=== PATIENT | male | born 1935 | race Caucasian/White ===

== ENCOUNTER 2017-07-12 09:19 | Day surgery (SDC) | payer MEDICARE, OTHER, SELFPAY ==
--- NOTE | 2017-07-06 11:11 | EKG12_ITS ---
Test Reason : PRE OP Blood Pressure : / mmHG Vent. Rate : 072 BPM Atrial Rate : 072 BPM P-R Int : 246 ms QRS Dur : 104 ms QT Int : 410 ms P-R-T Axes : 064 -41 052 degrees QTc Int : 448 ms Sinus rhythm with 1st degree A-V block Left axis deviation /LAHB Abnormal ECG Confirmed by FERNANDO SUN ([id number]), non linear editor MARLINE BAEZA ([id number]) on 07/07/2017 1:17:26 PM Referred By: Ronen Smiley Confirmed By:FERNANDO SUN
[2017-07-06 12:27] LABS: Anion Gap 7 (5-15); BUN 25 mg/dL (7-18); BUN/Creat Ratio 21.4 RATIO (10-20); Calcium,Total 8.8 mg/dL (8.5-10.1); Chloride 105 mmol/L (98-107); Creatinine, Serum 1.17 mg/dL (0.70-1.30); EST Glomerular Filtration Rate 64 mL/min (>60); Est Glom Filt Rate - Afr Amer 77 mL/min (>60); Glucose 137 mg/dL (74-106); Sodium Level 140 mmol/L (136-145)
[2017-07-12 09:47] VITALS: BP 155/84; PULSE 73; RESP 16; TEMP 36.4; O2SAT 95; BMI 26.1
--- NOTE | 2017-07-12 11:53 | PCM.OPRPT ---
Problem List (1) Eustachian tube dysfunction Status: Chronic Qualifiers: Laterality: bilateral Qualified Code(s): H69.83 - Other specified disorders of Eustachian tube, bilateral Report of Operation Date of Procedure: 07/12/17 Pre-Operative Diagnosis: 1. chronic serous otitis. 2. eustachian tube dysfunction, right and left Post-Operative Diagnosis: 1. chronic serous otitis. 2. eustachian tube dysfunction, right and left Surgery/Procedure Performed:: 1. placement of pressure equalization tubes, right and left ear. 2. eustachian tube dilation, right and left Type of Anesthesia:: General Specimen's removed: none Drains: none Description of Procedure: on the day of the procedure, after appropriate informed consent was obtained, the patient was brought to the operating room and placed in supine position on the operating room table. she was placed under general endotracheal anesthesia by the anesthesiologist, the tube was secured the eyes were taped. the left ear was examined with the binocular operating microscope. a speculum was placed. the tympanic membrane was viewed in its entirety and found to be intact. a radial myringotomy was made in the anterior/inferior quadrant and a bartlett tympanostomy tube was placed. floxin otic drops were instilled. the right ear was examined with the binocular operating microscope. a speculum was placed. the tympanic membrane was viewed in its entirety and found to be intact. a radial myringotomy was made in the anterior/inferior quadrant and a bartlett tympanostomy tube was placed. floxin otic drops were instilled. the bilateral nasal cavities were decongested with oxymetazoline soaked pledgets. a 30 degree scope was inserted into the right nasal cavity. this was placed in the nasopharynx and the left eustachian tube orifice was visualized. the acclarent AERA system was gently inserted into the left eustachian tube until a soft stop was felt. the balloon was then inflated to 12atm for 2 minutes and retracted. care was taken not to create a false passage. a 30 degree scope was inserted into the left nasal cavity. this was placed in the nasopharynx and the right eustachian tube orifice was visualized. the acclarent AERA system was gently inserted into the right eustachian tube until a soft stop was felt. the balloon was then inflated to 12atm for 2 minutes and retracted. care was taken not to create a false passage. the patient was awoken from general anesthesia and transferred to the PACU in stable condition. Grafts/Implants Used: none
--- NOTE | 2017-07-12 11:56 | PCM.DC ---
- Discharge Diagnoses Current Active Problems: Current Active and Chronic Problems Eustachian tube dysfunction (Chronic) You will use the following diet at home:: No restrictions Discharge Activity: Return to Normal Activity Call your doctor if your incision/area has: Increased Pain/ Swelling Allergies/Adverse Reactions: Allergies ibuprofen [From Motrin] Allergy (Verified 07/05/17 13:06) Swelling Medications to take at Discharge Tamsulosin HCl [Flomax] 0.4 mg PO DAILY 12/29/15 Budesonide/Formoterol 160/4.5 [Symbicort 160/4.5 Mcg Inhaler (SP)] 2 puff INHALATION BID 06/02/16 Fluticasone 0.05% [Flonase Nasal [place]] 2 spray NASAL BID 07/05/17 Primary Care Physician: Santana Butt MD [Primary Care Provider] - Please Follow Up With: Ronen Smiley MD When: 3 weeks
[2017-07-12] MEDS: Oxymetazoline 0.05% 1 SPRAY SPRAY.BTL 15 SPRAY (12:30)
[2017-07-12] MEDS: Ciprofloxacin 0.3% 2.5ml Bottle 1 DRP (12:39)
[2017-07-12 12:57] VITALS: BP 155/84; BP 155/86; PULSE 64; RESP 16; TEMP 36.4; O2SAT 95
[2017-07-12 13:00] VITALS: BP 155/84; BP 163/95; PULSE 65; RESP 16; O2SAT 96
[2017-07-12 13:15] VITALS: BP 152/87; BP 155/84; PULSE 61; RESP 16; O2SAT 95
[2017-07-12 13:34] VITALS: BP 153/90; BP 155/84; PULSE 59; RESP 16; TEMP 36.5; O2SAT 93
[2017-07-12 14:10] VITALS: BP 155/84
== END 2017-07-12 14:17 | disposition home or self-care (01) ==
LOC: SDC 09:20 → AC 09:21
PROVIDERS: Family Provider Family Medicine; PCP Family Medicine; Visit Provider Otolaryngology
PROC: (CPT 69436; principal; 2017-07-12 12:55)
PROC: (CPT 69436; 2017-07-12 12:55)
DX: H69.83 Other specified disorders of Eustachian tube, bilateral (principal); H90.3 Sensorineural hearing loss, bilateral; J30.81 Allergic rhinitis due to animal (cat) (dog) hair and dander; H65.23 Chronic serous otitis media, bilateral; K21.9 Gastro-esophageal reflux disease without esophagitis; G47.30 Sleep apnea, unspecified; F17.210 Nicotine dependence, cigarettes, uncomplicated; Z79.899 Other long term (current) drug therapy; Z85.828 Personal history of other malignant neoplasm of skin
CPT/HCPCS: 00126; 69436; 36415; 80048; J7120; J2405

== ENCOUNTER → 2018-01-20 10:23 | Outpatient (CLI) | payer MEDICARE, OTHER, SELFPAY ==
[2018-01-20 12:41] LABS: Anion Gap 7 (5-15); BUN 23 mg/dL (7-18); BUN/Creat Ratio 14.9 RATIO (10-20); Calcium,Total 8.7 mg/dL (8.5-10.1); Chloride 106 mmol/L (98-107); Creatinine, Serum 1.54 mg/dL (0.70-1.30); EST Glomerular Filtration Rate 46 mL/min (>60); Est Glom Filt Rate - Afr Amer 56 mL/min (>60); Glucose 107 mg/dL (74-106); Magnesium 2.7 mg/dL (1.6-2.6); Potassium 4.1 mmol/L (3.5-5.1); Sodium Level 141 mmol/L (136-145); Thyroid Stim Hormone (TSH) 1.39 uIU/mL (0.358-3.74)
[2018-01-20 12:42] LABS: Hemoglobin A1c 5.4 % (4.2-6.3)
== END ==
PROVIDERS: Family Provider Family Medicine; PCP Family Medicine; Visit Provider Family Medicine
DX: R25.2 Cramp and spasm (principal); M79.1 Myalgia
CPT/HCPCS: 36415; 80048; 83036; 83735; 84443

== ENCOUNTER → 2019-02-13 08:45 | Outpatient (CLI) | payer MEDICARE, SELFPAY ==
[2019-02-13 12:40] LABS: Absolute Lymphocyte Count 1.21 X10^3/uL (0.83-4.51); Absolute Neutrophil Count 2.2 X10^3/uL (2.0-7.7); Basophil# 0.04 X10^3/uL; Eosinophil# 0.17 X10^3/uL; Eosinophils% 4.2 % (0-5); Hematocrit 45.1 % (40-54); Hemoglobin 14.4 g/dL (13.0-16.5); Lymphocyte # 1.21 X10^3/ul (4.0); Lymphocyte % 29.9 % (19-41); Mean Corp Hgb Conc 31.9 g/dL (32-36); Mean Corpuscular Hgb 31.7 pg (27.0-32.0); Mean Corpuscular Volume 99.3 fL (80-94); Monocyte% 9.9 % (0-10); NRBC Flagged by Analyzer 0 % (0-5); Neutrophil # 2.21 X10^3/uL (2.7-7.7); Neutrophil % 54.5 % (47-70); Platelet Count 200 K/mm3 (150-450); RBC Distribution Width CV 16.5 % (11.6-14.6); RBC Distribution Width SD 60.7 fl (35.1-43.9); Red Blood Count 4.54 M/mm3 (4.6-6.2); White Blood Count 4.1 K/mm3 (4.4-11.0)
[2019-02-13 12:56] LABS: ALB/GLOB Ratio 1.2 RATIO (0.9-2.4); AST(SGOT) 19 U/L (15-37); Alanine Aminotransfer ALT/SGPT 18 U/L (16-61); Alkaline Phosphatase 89 U/L (45-117); Anion Gap 8 (5-15); BUN 18 mg/dL (7-18); BUN/Creat Ratio 13.6 RATIO (10-20); Calcium,Total 8.9 mg/dL (8.5-10.1); Chloride 106 mmol/L (98-107); Creatinine, Serum 1.32 mg/dL (0.70-1.30); EST Glomerular Filtration Rate 55 mL/min (>60); Est Glom Filt Rate - Afr Amer 67 mL/min (>60); Globulin 3.4 g/dL (2.2-4.2); Glucose 102 mg/dL (74-106); Potassium 4.4 mmol/L (3.5-5.1); Protein, Total 7.4 g/dL (6.4-8.2); Sodium Level 142 mmol/L (136-145)
== END ==
PROVIDERS: Family Provider Family Medicine; PCP Family Medicine; Visit Provider Family Medicine
DX: N18.3 Chronic kidney disease, stage 3 (moderate) (principal); K21.9 Gastro-esophageal reflux disease without esophagitis
CPT/HCPCS: 36415; 80053; 85025

== ENCOUNTER → 2019-12-13 14:37 | Outpatient (CLI) | payer MEDICARE, SELFPAY ==
[2019-12-13 18:06] LABS: Absolute Lymphocyte Count 0.95 X10^3/uL (0.83-4.51); Absolute Neutrophil Count 3.1 X10^3/uL (2.0-7.7); Basophil# 0.04 X10^3/uL; Basophil% 0.9 % (0-1); Eosinophil# 0.05 X10^3/uL; Eosinophils% 1.1 % (0-5); Hematocrit 40.5 % (40-54); Lymphocyte # 0.95 X10^3/ul (4.0); Lymphocyte % 20.8 % (19-41); Mean Corp Hgb Conc 32.1 g/dL (32-36); Mean Corpuscular Hgb 33.1 pg (27.0-32.0); Mean Corpuscular Volume 103.1 fL (80-94); Mean Platelet Vol. 11.4 fl (6.2-12.0); Monocyte% 8.8 % (0-10); NRBC Flagged by Analyzer 0 % (0-5); Platelet Count 192 K/mm3 (150-450); RBC Distribution Width CV 15.2 % (11.6-14.6); RBC Distribution Width SD 57.8 fl (35.1-43.9); Red Blood Count 3.93 M/mm3 (4.6-6.2); White Blood Count 4.6 K/mm3 (4.4-11.0)
[2019-12-13 18:10] LABS: AST(SGOT) 24 U/L (15-37); Alanine Aminotransfer ALT/SGPT 25 U/L (16-61); Albumin, Serum 3.8 g/dL (3.2-5.0); Alkaline Phosphatase 75 U/L (45-117); Anion Gap 5 (5-15); BUN 35 mg/dL (7-18); Chloride 110 mmol/L (98-107); Creatinine, Serum 1.67 mg/dL (0.70-1.30); EST Glomerular Filtration Rate 42 mL/min (>60); Est Glom Filt Rate - Afr Amer 51 mL/min (>60); Globulin 3.7 g/dL (2.2-4.2); Glucose 90 mg/dL (74-106); Potassium 4.1 mmol/L (3.5-5.1); Protein, Total 7.5 g/dL (6.4-8.2); Sodium Level 140 mmol/L (136-145)
== END ==
PROVIDERS: PCP Family Medicine; Visit Provider Family Medicine
DX: N18.3 Chronic kidney disease, stage 3 (moderate) (principal); K21.9 Gastro-esophageal reflux disease without esophagitis; N40.0 Benign prostatic hyperplasia without lower urinary tract symptoms
CPT/HCPCS: 36415; 80053; 85025

== ENCOUNTER 2020-04-26 06:58 | Emergency (ER) | payer MEDICARE, SELFPAY ==
[2020-04-26 07:01] VITALS: BP 164/92; PULSE 80; RESP 16; TEMP 37; O2SAT 98; BMI 24.6
--- NOTE | 2020-04-26 07:15 | VDLE_ITS ---
Reason For Study: PAIN Procedure LEFT Exam performed portable in ED. GSV is normal. A preliminary report was called and/or faxed CFV is compressible, spontaneous, phasic, to ED. competent, and demonstrates normal augmentation. FV is compressible, spontaneous, phasic, competent and demonstrates normal augmentation. POP V is compressible, spontaneous, phasic, competent and demonstrates normal augmentation. T/P Trunk is compressible. PTV is compressible. LT PerV is compressible. Interpretation Summary Deep veins of the left lower extremity are patent and compressible segmentally. There is no evidence of left lower extremity deep vein thrombosis. Valvular competence appears intact within the proximal deep venous system on the left . The left great saphenous vein appears patent and compressible segmentally. Ordering Physician: Steven Hilliard Referring Physician: KATIE KOROMA Performed By: Eli Mahoney, KRISHNA, RVT
--- NOTE | 2020-04-26 07:15 | ED.VIS.GEN ---
History of Present Illness Chief Complaint: Lower Extremity Injury Informant: Patient Narrative: 84-year-old male presents to the emergency department concern for blood clot in his left leg. He tells me that 3 months ago he had pain the anterior medial aspect of his left leg was diagnosed with a blood clot. He was not placed on any blood thinners. He does not know if it was a deep vein or if it was a superficial vein. He states that he has been seeing Dr. Hinojosa. He states that this morning around 06 100 he was awoken with pain in the left leg. He states that the vein appears swollen. He denies any trauma. - Past Medical History (1) Chronic venous insufficiency Status: Chronic (2) Emphysema of lung Status: Chronic (3) History of superficial thrombophlebitis Status: Chronic Past Medical History - Allergies and Home Meds Allergies/Adverse Reactions: Allergies ibuprofen [From Motrin] Allergy (Verified 04/26/20 06:59) Swelling Primary Care Physician: Shoshana Ulrich MD [Primary Care Provider] - As Needed Past Medical History: - - Hypertension Surgical History: - - The patient underwent lithotripsy for a right kidney stone in September 2015. Left hand surgery was performed approximately 10 years ago. The patient underwent L4-5 discectomy approximately 20 years ago. Smoking Status: Current every day smoker Drugs: None - Family History Maternal Family History: Reports: - - The patient's father at age of 93 with a history of Alzheimer's disease. The patient's mother at age of 61 with stomach cancer. Review of Systems General: Denies: Chills, Fever, Sweats Eyes: Denies: Visual changes - bilaterally, Diplopia ENT: Denies: Rhinorrhea, Sore throat Cardiovascular: Denies: Chest pain, Palpitations Respiratory: Denies: Dyspnea, Cough, Dyspnea on exertion Gastrointestinal: Denies: Abdominal pain, Nausea, Vomiting, Diarrhea, Melena, Hematochezia Genitourinary: Denies: Dysuria, Hematuria, Frequency Musculoskeletal: Reports: Extremity Pain. Denies: Back pain Skin: Denies: Rash, Wounds Neurological: Denies: Headache, Weakness, Numbness Physical Exam Vital Signs/Narrative: Vital Signs Temp Pulse Resp BP Pulse Ox 04/26/20 07:01 98.6 F 80 16 164/92 H 98 Inital Vital Signs reviewed: Yes General: Well nourished, Well developed, No Acute Distress Head: Normocephalic, Atraumatic Eyes: Perrl, EOMI ENT: Moist mucous membranes, No rhinorrhea Neck: Supple, Nontender Cardiovascular: Regular rate, Regular rhythm, No murmurs Respiratory: No distress, CTA bilaterally, Chest nontender Abdomen: Soft, Nontender, Nondistended, Normal bowel sounds Back: Nontender, Normal Inspection Extremities: No edema, Tenderness - Tender to palpation of the medial anterior left leg. There are varicose veins. I do not palpate any cords. No significant swelling noted between the 2 legs., - - There is a varicose vein over the medial anterior aspect of the left leg where the patient has pain. No cords felt. Skin: Normal color, No rash Neurological: Alert, Oriented x3, Cranial nerves II-XII grossly intact, Normal Strength, Normal Sensation Psychological: Normal affect, Normal Mood Diagnostic/Tx/Re-eval - Medical Decision Making Duplex ultrasound of the left leg was negative for DVT. Patient will be discharged home with supportive care return if worsening or concerns ED Disposition - Plan for ED Patient: Disposition: Home or Assisted Living Diagnosis: Pain of left calf, Varicose vein of leg Instructions: ED Varicose Veins Referrals: Shoshana Ulrich MD [Primary Care Provider] - As Needed
[2020-04-26 09:27] VITALS: BP 151/76; PULSE 81; RESP 14; O2SAT 99
== END 2020-04-26 09:45 | disposition home or self-care (01) ==
LOC: ED 08:02
PROVIDERS: Emergency Provider Emergency Medicine; PCP Family Medicine
DX: I83.812 Varicose veins of left lower extremity with pain (principal); I87.2 Venous insufficiency (chronic) (peripheral); J43.9 Emphysema, unspecified; I10 Essential (primary) hypertension; F17.200 Nicotine dependence, unspecified, uncomplicated; Z79.899 Other long term (current) drug therapy; Z86.72 Personal history of thrombophlebitis
CPT/HCPCS: 93971; 99282

== ENCOUNTER → 2020-05-19 10:34 | Outpatient (CLI) | payer MEDICARE, SELFPAY ==
[2020-04-26 07:01] VITALS: BMI 24.6
--- NOTE | 2020-05-19 10:38 | RAD_ITS ---
STUDY: X-RAY - UNILATERAL RIBS ( LEFT ) WITH CHEST REASON FOR EXAM: Male, 84 years old. pt fell several months ago, left lower rib pain TECHNIQUE - RIBS: 4 view(s) of the ribs. TECHNIQUE - CHEST: Single PA view of the chest. COMPARISON: None. FINDINGS - RIBS: Normal visualized ribs without a demonstrated fracture. FINDINGS - CHEST: The lungs are clear and expanded. There is no demonstrated pleural abnormality. Normal size heart. Normal mediastinum and ermias. Normal visualized pulmonary arteries. Normal visualized aortic arch and descending thoracic aorta. There is a dextroscoliosis of the thoracic spine. Multiple healed right rib fractures. There is no demonstrated abnormality of the visualized soft tissue structures of the upper abdomen. RAD/Ribs Uni Min 3V w/PA Chest IMPRESSION: RIBS: Normal x-ray examination of the ribs. CHEST: Normal x-ray examination of the chest. Electronically Signed: Kvng Barrera MD at 8:20 EST Tel , Service support ,
--- NOTE | 2020-05-19 10:39 | RAD_ITS ---
STUDY: X-RAY - PELVIS AND BILATERAL HIPS REASON FOR EXAM: Bilateral hip pain, fall several months ago. TECHNIQUE: AP view of the pelvis.? 2 views of the right hip, and 2 views of the left hip were obtained. COMPARISON: None. FINDINGS: There is vascular calcification. 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 Normal bilateral iliac wings, sacroiliac joints and visualized sacrum. Normal bilateral superior and inferior pubic rami. Normal pubic symphysis. Normal bilateral ischial tuberosities. Normal visualized right femoral head. Normal right acetabulum. There is mild joint space narrowing of the superior medial right hip joint. Normal visualized left femoral head. Normal left acetabulum. There is mild joint space narrowing of the superior medial left hip joint. RAD/Hips B/L min 2 views w/ Pelvis IMPRESSION: Mild bilateral hip arthrosis. Electronically Signed: Rodney Ordoñez MD at 13:16 EST Tel , Service support ,
== END ==
PROVIDERS: PCP Family Medicine; Referring Provider Family Medicine; Visit Provider Family Medicine
DX: M25.551 Pain in right hip (principal); M25.552 Pain in left hip; R07.81 Pleurodynia; M89.8X8 Other specified disorders of bone, other site
CPT/HCPCS: 71100; 71101; 73521

== ENCOUNTER 2020-06-12 12:46 | Outpatient (RCR) | payer MEDICARE, SELFPAY | END 2020-06-12 23:59 | LOC: IMMUN 12:46 | PROVIDERS: PCP Family Medicine; Visit Provider Family Medicine | DX: Z23 Encounter for immunization (principal) | CPT/HCPCS: 0011A; 0012A; 91301 ==

== ENCOUNTER 2020-07-07 10:30 | Outpatient (RCR) | payer MEDICARE, SELFPAY ==
--- NOTE | 2020-06-09 15:19 | HP.PTEVAL_ITS ---
Patient's Visit Information DESMOND WINCHESTER is a 85 year old M referred to Physical Therapy by Dr. Shoshana Ulrich MD with a diagnosis of STRAIN OF MUSCLES, TENDON, FASCIA; TENDON AT THIGH LEVEL, RIGHT. Date of Evaluation: 06/09/20 Physical Therapist: Pola Bustamante, PT, Cert MDT, OCS - Visit Plan Frequency: 2x /Week Duration: 4 Weeks Plan: 2xs/week for 4 weeks per POC. PT Interventions: lumbar AROM, LE strength, postural training, core stabilization exercises, flexibility/mobility, gait, stairs. - Subjective PATIENT IS AN 85 YEAR OLD MALE PRESENTING TO THE CLINIC WITH RIGHT POSTERIOR GLUT AND HAMSTRING SYMPTOMS FROM FALLING DOWN THE STAIRS. ANDREW: THREE MONTHS AGO MISSED A STEP AN FELL ON HIS BUTTOCKS. STATES HE GETS RIGHT POSTERIOR PELVIS PAIN. RADICULAR SYMPTOMS INTO POSTERIOR THIGH; OCCASSIONALY INTO CALF. SITTING FOR LONG DURATIONS INCREASES PAIN. WALKING UP AND DOWN STAIRS CAUSES PAIN. LAYING DOWN RELIEVES PAIN. DENIES N/T INTO LE. HX OF BACK SURGERIES AND R ANKLE INJURY. 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 DENIES ANY RECENT FALLS OTHER THAN INJURY. DIFFICULTY WITH TRANSFERS IN AND OUT OF CAR. DENIES DIFFICULTY WITH SLEEPING. ASCENDING STAIRS WITH STEP TO PATTERN. SOCIAL: . VOCATION: RETIRED - Pain Right Buttocks Pain Intensity (Out of 10): 4 Pain Intensity Range: 10 Comment: R HAMSTRING AND BUTTOCK - Objective LUMBAR ROM: FLEXION 50%, EXT 50%, SIDEBEND 50%, ROTATION 25%. LE MMT: R FLEXION 4-/5, QUAD 4-/5, HAMS 4-/5, DF 5/5, IR 4+/5, ER 4+/5. L FLEXION 4+/5, QUAD 4/5, HAMS 4/5, DF 5/5, IR 4+/5, ER 4+/5. SENSATION INTACT TO LIGHT TOUGH B LE. R HAMSTRING: MODERATE LIMITATION. PALPATION: TTP BILATERAL LOW BACK AND PARASPINALS, TTP R ISCHIAL TUBEROSITY. GAIT: DECREASED EUFEMIA, DECREASED STEP LENGTH - Special Tests R Hip Scour: Negative - Goals Goal 1:: PATIENT WILL DEMONSTRATE INDEPENDENCE WITH HEP. Goal Time Frame: 2-4 Weeks Goal 2:: PATIENT WILL DEMONSTRATE IMPROVE LUMBAR AROM TO < 50% LIMITATIONS FOR IMPROVED FUNCTIONAL MOBILITY. Goal Time Frame: 2-4 Weeks Goal 3:: PATIENT WILL IMPROVE SCORE ON LEFS BY 5 OR > POINTS FOR IMPROVED QOL. Goal 4:: PATIENT WILL DEMONSTRATE RECIPROCAL PATTERN WITH ASCENDING/DESCENDING STAIRS FOR IMPROVED FUNCTIONAL MOBILITY. Goal Time Frame: 2-4 Weeks Goal 5:: PATIENT WILL DEMONSTRATE B LE STRENGTH TO 4+/5 FOR IMPROVED FUNCTIONAL STRENGTH. Goal Time Frame: 2-4 Weeks - Rehabilitation Potential Physical Therapy Diagnosis: PATIENT IS A 85 YEAR OLD MALE PRESENTING TO THE CLINIC WITH LBP WITH RADICULAR SYMPTOMS INTO R LE, LIMITED LUMBAR AROM, DECREASED STRENGTH IN B LE. HX OF LUMBAR DISC SURGERY VASCULAR ISSUES RIGHT LEG . Rehabilitation Potential: Good - Anticipated Interventions Patient/Client Instruction: Educate patient on: Condition, Plan of Care For the Purpose of:: To decrease pain, To increase ROM, To improve muscle performance and motor function, To improve ability to perform ADL's, To increase tolerance to activity/condition/position, To improve ability of physical actions for home/community/work/leisure, To improve gait and locomotor functions, To increase flexibility/ROM, To improve safety, To improve tolerance to ADL's Therapeutic Exercise to Include: Strength training, Body mechanics, Postural training, Flexibilty training, Gait and locomotor training, Active ROM Comment: BLE For the Purpose of:: To decrease pain, To increase ROM, To improve muscle performance and motor function, To increase tolerance to activity/c ondition/position, To improve performance and independence with ADL's, To improve ability of physical actions for home/community/work/leisure, To improve gait and locomotor functions, To increase flexibility/ROM, To improve safety with gait, To improve safety, To improve tolerance to ADL's IF ES: Yes Cryotherapy (ice pack, ice massage): Yes Thermo therapy (hot pack): Yes Ultrasound (thermal/non thermal): Yes Comment: non-chargable for us/stim For the Purpose of:: To decrease pain, To increase ROM, To improve muscle performance and motor function, To improve ability to perform ADL's, To increase tolerance to activity/condition/position, To improve ability of physical actions for home/community/work/leisure, To increase flexibility/ROM, To improve tolerance to ADL's Thank you for the opportunity to evaluate your patient. For Medicare and Medicare HMO plans, please review the plan of care and approve it. It will need to be FAXED BACK to us at [phone] for Medicare purposes. For Medicare only, by signing this I certify the plan of care. Please let me know if there are questions or concerns regarding this plan of care. Physician Signature: Date:
--- NOTE | 2020-07-07 11:10 | HP.PTDCSUM ---
It has been my pleasure to treat DESMOND WINCHESTER referred by Dr. Shoshana Ulrich MD, with the diagnosis of STRAIN OF MUSCLES, TENDON, FASCIA; TENDON AT THIGH LEVEL, RIGHT for a total of 9 visit(s). Discharge Date: 07/07/20 Please see the following information for a summary of their discharge status. Subjective: Patient states that his back is sore this date. Reports he wants to get an MRI on his back. Patient expresses concerns because this pain has been going on for a few months after a fall. Right Buttocks Pain Intensity (Out of 10): 4 % Improvement: 60 Objective/Function: Lumbar AROM: Flexion 50% (limitied by hamstring tightness), ext 50%, sidebending 75%, Rotation 75%. LE MMT: R hip flexor 4+/5, quad 4+/5, hams 4+/5, DF 5/5. L hip flexion 4+/5, quad 4+/5, hams 4+/5, DF 5/5. Patient tolerated all exercise this date with no increase in pain. Demonstrates improvements in LE strength and lumbar mobility. Goal 1:: PATIENT WILL DEMONSTRATE INDEPENDENCE WITH HEP. Goal Progress: Goal Met Goal 2:: PATIENT WILL DEMONSTRATE IMPROVE LUMBAR AROM TO < 50% LIMITATIONS FOR IMPROVED FUNCTIONAL MOBILITY. Goal Progress: Progressing Goal 3:: PATIENT WILL IMPROVE SCORE ON LEFS BY 5 OR > POINTS FOR IMPROVED QOL. Goal Progress: Goal Met Goal 4:: PATIENT WILL DEMONSTRATE RECIPROCAL PATTERN WITH ASCENDING/DESCENDING STAIRS FOR IMPROVED FUNCTIONAL MOBILITY. Goal Progress: Progressing Goal 5:: PATIENT WILL DEMONSTRATE B LE STRENGTH TO 4+/5 FOR IMPROVED FUNCTIONAL STRENGTH. Goal Progress: Goal Met Plan: D/C to HEP Discharge Comments: D/C to HEP. Patient demonstrates If there are questions or concerns regarding this patient's physical therapy, please feel free to call me at [phone]. Thank you for the referral of this patient. Sincerely, Pola Bustamante, PT, Cert MDT, OCS
== END 2020-07-07 19:00 | disposition home or self-care (01) ==
LOC: PT 10:30
PROVIDERS: PCP Family Medicine; Referring Provider Family Medicine; Visit Provider Family Medicine
DX: S76.911D Strain of unspecified muscles, fascia and tendons at thigh level, right thigh, subsequent encounter (principal)
CPT/HCPCS: 97110; 97162

== ENCOUNTER 2020-07-08 09:53 | Outpatient (RCR) | payer MEDICARE, SELFPAY ==
[2020-07-08 10:11] VITALS: BP 135/74; PULSE 86; RESP 16; TEMP 36; BMI 24.3
[2020-07-08 11:49] LABS: Absolute Lymphocyte Count 1.06 X10^3/uL (0.83-4.51); Absolute Neutrophil Count 3.3 X10^3/uL (2.0-7.7); Basophil# 0.03 X10^3/uL; Basophil% 0.6 % (0-1); Eosinophil# 0.14 X10^3/uL; Eosinophils% 2.8 % (0-5); Hematocrit 41.4 % (40-54); Lymphocyte # 1.06 X10^3/ul (4.0); Lymphocyte % 21.2 % (19-41); Mean Corp Hgb Conc 31.4 g/dL (32-36); Mean Corpuscular Hgb 31.2 pg (27.0-32.0); Mean Corpuscular Volume 99.3 fL (80-94); Mean Platelet Vol. 10.1 fl (6.2-12.0); Monocyte# 0.42 X10^3/uL; Monocyte% 8.4 % (0-10); NRBC Flagged by Analyzer 0 % (0-5); Neutrophil # 3.33 X10^3/uL (2.7-7.7); Neutrophil % 66.8 % (47-70); Platelet Count 259 K/mm3 (150-450); RBC Distribution Width CV 14.1 % (11.6-14.6); RBC Distribution Width SD 51.8 fl (35.1-43.9); Red Blood Count 4.17 M/mm3 (4.6-6.2)
[2020-07-08 12:18] LABS: AST(SGOT) 20 U/L (15-37); Alanine Aminotransfer ALT/SGPT 21 U/L (16-61); Albumin, Serum 3.6 g/dL (3.2-5.0); Alkaline Phosphatase 94 U/L (45-117); Anion Gap 4 (5-15); BUN 18 mg/dL (7-18); BUN/Creat Ratio 13.5 RATIO (10-20); Calcium,Total 9.2 mg/dL (8.5-10.1); Chloride 108 mmol/L (98-107); Creatinine, Serum 1.33 mg/dL (0.70-1.30); EST Glomerular Filtration Rate 55 mL/min (>60); Est Glom Filt Rate - Afr Amer 66 mL/min (>60); Estimated Creatinine Clearance 40.71 ml/min; Globulin 3.6 g/dL (2.2-4.2); Glucose 67 mg/dL (74-106); Potassium 4.1 mmol/L (3.5-5.1); Prealbumin 25.7 mg/dL (20.0-40.0); Protein, Total 7.2 g/dL (6.4-8.2); Sodium Level 141 mmol/L (136-145)
--- NOTE | 2020-07-08 14:21 | HP.PCM_ITS ---
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, left Status: Chronic Code(s): I87.012 - 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 (3) Swelling of lower limb Status: Chronic Code(s): M79.89 - Other specified soft tissue disorders (4) Tobacco abuse Status: Chronic Code(s): Z72.0 - Tobacco use (5) Emphysema of lung Status: Chronic Code(s): J43.9 - Emphysema, unspecified (6) Ulcer of ankle Status: Chronic Qualifiers: Laterality: left Non-pressure ulcer stage: with fat layer exposed Qualif ied Code(s): L97.322 - Non-pressure chronic ulcer of left ankle with fat layer exposed (7) 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 Code(s): I83.209 - Varicose veins of unspecified lower extremity with both ulcer of unspecified site and inflammation; L97.909 - Non- pressure chronic ulcer of unspecified part of unspecified lower leg with unspecified severity (8) Venous hypertension, chronic, with ulcer and inflammation Status: Chronic Qualifiers: Laterality: left Qualified Code(s): I87.332 - Chronic venous hypertension (idiopathic) with ulcer and inflammation of left lower extremity; L97.929 - Non- pressure chronic ulcer of unspecified part of left lower leg with unspecified severity Code(s): I87.339 - Chronic venous hypertension (idiopathic) with ulcer and inflammation of unspecified lower extremity (9) History of kidney stones Status: Chronic Code(s): Z87.442 - Personal history of urinary calculi (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 He was previously treated at the [facility] in 2016 relative to a venous ulceration near the left medial malleolus. He was treated by conservative means, and his ulcer was ultimately healed. The patient has presented again recently with a new ulceration near the left medial malleolus, though it is slightly more distal location. The ulceration has been present for approximately 6 weeks. A venous duplex examination performed on March 20, 2020, revealed incompetence of the left great saphenous vein, a duplicate left great saphenous vein, and the left small saphenous vein. Patient has been implementing conservative treatment measures for many years, including leg elevation, avoidance of idle standing and sitting, use of graduated compression stockings of at least 20 to 30 mmHg compression, active lifestyle, weight control measures, and the use of [id number]-wtt-[id number] anti-inflammatory medications as needed. Despite these measures, the ulceration near the left medial malleolus recurred, and the patient has been urged to redouble his efforts at implementing conservative treatment measures. The patient has had several ulcerations in this area. He also has a history of superficial thrombophlebitis in the left lower extremity in the past. He suffers from chronic swelling and edema in both lower extremities, which is most prominent at the end of the day. He sleeps on a flat surface at night. Past Medical History Past Medical History: Chronic Problems Eustachian tube dysfunction (Chronic) Hypertension (Chronic) History of superficial thrombophlebitis (Chronic) Postphlebitic syndrome with ulcer, left (Chronic) Swelling of lower limb (Chronic) Tobacco abuse (Chronic) Emphysema of lung (Chronic) Ulcer of ankle (Chronic) Varicose veins with ulcer and inflammation (Chronic) Venous hypertension, chronic, with ulcer and inflammation (Chronic) History of kidney stones (Chronic) Umaña phlebectatica (Chronic) Prostatism (Chronic) Chronic venous insufficiency (Chronic) Surgical History: - - The patient underwent lithotripsy for a right kidney stone in September 2015. Left hand surgery was performed approximately 10 years ago. The patient underwent L4-5 discectomy approximately 20 years ago. Allergies/Adverse Reactions: Allergies ibuprofen [From Motrin] Allergy (Verified 04/26/20 06:59) Swelling Home Medications: Ambulatory Orders Medication Instructions Recorded Budesonide/Formoterol 160/4.5 2 puff INHALATION BID 06/02/16 [Symbicort 160/4.5 Mcg Inhaler (SP)] Amlodipine Besylate 5 mg PO DAILY 04/26/20 - Family History Maternal - - The patient's father at age of 93 with a history of Alzheimer's disease. The patient's mother at age of 61 with stomach cancer. 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 He smokes approximately 10 cigarettes/day. He denies the use of alcohol. Lives: Spouse/ Significant Other Smoking Status: Current every day smoker Tobacco Use: Cigarettes - 10/day Alcohol: None Drugs: None Review of Systems Constitutional: Denies: Chills, Fever, Weight Change Eyes: Denies: Pain, Vision Change HEENT: Denies: Difficulty Hearing, Difficulty Swallowing, Sinus Congestion Cardiovascular: Denies: Chest Pain, Palpitations Respiratory: Denies: Cough, Shortness of Breath Gastrointestinal: Denies: Diarrhea, Nausea, Vomiting Genitourinary: Denies: Dysuria, Hematuria Endocrine: Denies: Heat/ Cold Intolerance, Polydipsia, Polyuria Hematologic/ Lymphatic: Denies: Easy Bruising, Easy Bleeding - Physical Exam Vital Signs Temp Pulse Resp BP 96.8 F L 86 16 135/74 H 07/08/20 10:11 07/08/20 10:11 07/08/20 10:11 07/08/20 10:11 General: Alert, Oriented x3, Cooperative, No apparent distress, Well developed, Well nourished HEENT: Atraumatic, PERRLA, EOMI, Normocephalic Oral: Moist Mucosa Neck: No JVD Lungs: Normal air movement Abdomen: Non-Distended Extremities: No clubbing, No cyanosis, No Calf Tenderness, - - Mild swelling and edema are noted in the patient's lower extremities bilaterally. Scattered varicosities are noted in the lower extremities bilaterally. Coronal sleep ectatic is noted at ankle level bilaterally. A small open ulceration is noted near the left medial malleolus. Addt'l Wound Findings: The dimensions of the ulceration near the left medial malleolus are documented elsewhere. There is no sign of infection or cellulitis. A small amount of bioburden is noted. Several centimeters superiorly, there is evidence of a previously healed venous ulceration. Wound Measurements and Assessment WC - Nurse 1 - General Ulcer Measurement Start: 07/08/20 10:11 Freq: Status: Active Protocol: Activity Type Activity Date Activity User E-Sign Co-Sign Detail Recorded Client Recorded Date Recorded By Document 07/08/20 10:11 MW [id number] 07/08/20 10:27 MW 07/08/20 10:11 Wound Center Nurse 1 [Ulcer Assessment] #2 left medial ankle -Combined with other wound No -Current Size (cm) - Length 0.2 -Current Size (cm) - Width 0.2 -Current Size (cm) - Depth 0.2 -Total Square Cm 0.04 -Photo Taken No -Epithelialization None Present -Tunneling No -Undermining/Tunneling No -Circular Undermining No -Exudate Amt Small -Exudate Type Serosanguineous -Wound Margin Flat & Intact -Granulation Amt None Present (0 %) -Granulation Quality N/A -Slough/Fibrin Yes -Necrosis Amt Large (67-100%) -Necrotic Tissue Type Adherent Slough -Structure Exposed N/A -Texture (Corine-wound Skin Appearance) Assessed, Localized Edema -Moisture (Corine-wound Skin Appearance No Abnormality, ) Assessed -Color (Corine-wound Skin Appearance) Assessed, Hemosiderin Staining -Temperature (Corine-wound Skin No Abnormality Appearance) (Pt Warm) -Tenderness on Palpation (Corine-wound Yes Skin Appearance) -Ulcer Cleansing Rinsed/ Irrigated with Saline -Foul Odor after Cleansing No -Anesthetic Used 4% Lidocaine Solution [Edema Assessment] -Lower Limb Edema Present Yes -Right Calf (cm) 35.2 -Right Ankle (cm) 22.0 -Left Calf (cm) 35.5 -Left Ankle (cm) 22.5 WC - Nurse 2 - General Ulcer CM Notes Start: 07/08/20 10:11 Freq: Status: Active Protocol: Activity Type Activity Date Activity User E-Sign Co-Sign Detail Recorded Client Recorded Date Recorded By Document 07/08/20 12:22 [email or web address] [id number] 07/08/20 12:23 PL 07/08/20 12:22 Wound Center Nurse 2 [Procedure/Treatment] #2 left medial ankle -Time 10:50 -Correct Patient Yes -Correct Side, Site, Position Yes -Correct Procedure Yes -Procedure Performed Yes -Type of Procedure Debridement -Clinical Debridement Subcutaneous -Tissue Removed Subcutaneous -Post Debridement (cm) - Length 0.2 -Post Debridement (cm) - Width 0.2 -Post Debridement (cm) - Depth 0.1 -Total Square (Post) (cm) 0.04 -Area of Debridement (cm) - Length 0.2 -Area of Debridement (cm) - Width 0.2 -Total Square (Area) (cm) 0.04 -Tunneling No -Undermining/Tunneling No -Circular Undermining No -Wound/Ulcer Outcome Not Healed -Ulcer Cleansing Rinsed/ Irrigated with Saline -Foul Odor after Cleansing No -Bioengineered Tissue No -Debridement - Subq, 1st 20sq cm Yes [See Physician Procedure note for Specifics] Pain Scale: 0-10 Numeric [Pain] -Is Patient Pain Free? Yes - Nurse 3 - General Ulcer D/C NN Start: 07/08/20 10:11 Freq: Status: Active Protocol: Activity Type Activity Date Activity User E-Sign Co-Sign Detail Recorded Client Recorded Date Recorded By Document 07/08/20 11:01 MW [id number] 07/08/20 11:02 MW 07/08/20 11:01 Wound Care Nurse 3 [Wound Dressing] #2 left medial ankle -Ulcer Cleansing Rinsed/ Irrigated with Saline -Foul Odor after Cleansing No -Negative Pressure Wound Therapy N/A -Primary Dressing Applied C Hydrogel ($) -Primary Dressing Covered/Secured Dry Gauze, with Secured with Tape [Compression Applied] Right -Lotion applied to leg before No compression wrap -Stockings Yes Left -Lotion applied to leg before No compression wrap -Stockings Yes [Post Procedure Tolerated] -Treatment Response Procedure Tolerated Well Pain Scale: 0-10 Numeric [Pain] -Is Patient Pain Free? Yes Teaching: Wound Center [Wound Center Education] (Items with an * have Printed Materials Available- Please identify what is given to patient under the Teaching materials given to patient and caregiver Section. Dressing Your Wound -Person Taught Patient -Teaching Method Discussion, Demonstration -Response to teaching Reinforcement needed - Visit Discharge [Visit Discharge Information] -Discharge Condition Stable -Ambulatory Status Ambulatory -Transportation Private Auto -Accompanied by self -Medication Reconcilliation completed No & provided to patient/care provider -Clinical Summary of Care Provided Yes Musculoskeletal: No Muscle Wasting Neurological: Cranial nerves II-XII grossly intact, Neuro grossly intact Psych/Mental Status: Normal Affect, Appropriate, Alert and oriented to time, place, person, mood and affect Debridement Note Post-Debridement Measurements/Treatment WC - Nurse 2 - General Ulcer CM Notes Start: 07/08/20 10:11 Freq: Status: Active Protocol: Activity Type Activity Date Activity User E-Sign Co-Sign Detail Recorded Client Recorded Date Recorded By Document 07/08/20 12:22 PL [id number] 07/08/20 12:23 PL 07/08/20 12:22 Wound Center Nurse 2 #2 left medial ankle -Time 10:50 -Correct Patient Yes -Correct Side, Site, Position Yes -Correct Procedure Yes -Procedure Performed Yes -Type of Procedure Debridement -Clinical Debridement Subcutaneous -Tissue Removed Subcutaneous -Post Debridement (cm) - Length 0.2 -Post Debridement (cm) - Width 0.2 -Post Debridement (cm) - Depth 0.1 -Total Square (Post) (cm) 0.04 -Area of Debridement (cm) - Length 0.2 -Area of Debridement (cm) - Width 0.2 -Total Square (Area) (cm) 0.04 -Tunneling No -Undermining/Tunneling No -Circular Undermining No -Wound/Ulcer Outcome Not Healed -Ulcer Cleansing Rinsed/ Irrigated with Saline -Foul Odor after Cleansing No -Bioengineered Tissue No -Debridement - Subq, 1st 20sq cm Yes Pain Scale: 0-10 Numeric Is Patient Pain Free? Yes WC - Nurse 3 - General Ulcer D/C NN Start: 07/08/20 10:11 Freq: Status: Active Protocol: Activity Type Activity Date Activity User E-Sign Co-Sign Detail Recorded Client Recorded Date Recorded By Document 07/08/20 11:01 MW [id number] 07/08/20 11:02 MW 07/08/20 11:01 Wound Care Nurse 3 #2 left medial ankle -Ulcer Cleansing Rinsed/ Irrigated with Saline -Foul Odor after Cleansing No -Negative Pressure Wound Therapy N/A -Primary Dressing Applied C Hydrogel ($) -Primary Dressing Covered/Secured with Dry Gauze, Secured with Tape Right -Lotion applied to leg before No compression wrap -Stockings Yes Left -Lotion applied to leg before No compression wrap -Stockings Yes Treatment Response Procedure Tolerated Well Pain Scale: 0-10 Numeric Is Patient Pain Free? Yes Teaching: Wound Center Dressing Your Wound -Person Taught Patient -Teaching Method Discussion, Demonstration -Response to teaching Reinforcement needed WC - Visit Discharge Discharge Condition Stable Ambulatory Status Ambulatory Transportation Private Auto Accompanied by self Medication Reconcilliation completed & No provided to patient/care provider Clinical Summary of Care Provided Yes Laterality: Left - Medial malleolus Type of Debridement: Excisional debridement Anesthesia Used: 5% Lidocaine Gel Depth: Down to and including healthy tissue, in the subcutaneous layer Percentage of wound debrided: 100 Instrument Used: 3mm curette Tissue Removed: Bioburden Severity: Fat Layer Exposed Amount of bleeding with debridement: Mild Bleeding Controlled with: Compression and gauze Patient tolerated procedure well Assessment/Plan Active Problems History of superficial thrombophlebitis (Chronic) Postphlebitic syndrome with ulcer, left (Chronic) Swelling of lower limb (Chronic) Tobacco abuse (Chronic) Emphysema of lung (Chronic) Ulcer of ankle (Chronic) 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 The patient is well-versed in the appropriate conservative treatment measures related to management of his venous disease. We have discussed these issues again in detail. Patient has been encouraged to elevate his lower extremities as much as possible. He is to continue sleeping on a flat mattress at night. Leg elevation is to be achieved even during daytime hours. Leg elevation is to be to heart level, or higher. Prolonged idle sitting has been discouraged. Activity has been encouraged. Weight optimization has been recommended. Compression is to be continued by means of graduated compression stockings of 20 to 30 mmHg, or higher. It appears as though the patient has such stockings, which are relatively new. Routine laboratory studies were obtained earlier today, with results as follows: White blood count 5.0, hemoglobin 13.0, hematocrit 41.4, platelets 259,000, sodium 141, potassium 4.1, chloride 108, BUN 18, creatinine 1.33, glucose 67, calcium 9.2, total bilirubin 0.50, AST 20, ALT 21, alkaline phosphatase 94, total protein 7.2, albumin 3.6, serum prealbumin 25.7. Plan: We are to continue with conservative treatment measures with respect to the patient's chronic venous disease. These measures have been discussed with the patient in detail, and are to include leg elevation, avoidance of idle standing and sitting, graduated compression stockings, weight control measures, active lifestyle, and the use of anti-inflammatory medications as needed. We are to implement the use of collagen hydrogel topically to the ulceration to the left medial malleolus. This is to be applied topically on a daily basis. Patient is to return in 1 week for reassessment. It is anticipated that healing of the small ulceration will be achieved. The patient will likely be a candidate for endovenous ablation in the left lower extremity. A prior venous duplex examination, performed on 03/20/2020 revealed incompetence of the left great saphenous vein, the duplicate left great saphenous vein, and the left small saphenous vein. Patient has indicated that he may wish to pursue such superficial venous ablation, which might be achieved by either endothermal ablation or by means of VenaSeal medical adhesive closure. These options will be discussed with the patient in more detail at ensuing visits. The patient is to return in 1 week for reassessment. Influenza vaccine was not administered today. The patient is a smoker, and has been encouraged to discontinue his smoking habit. Patient stands 5 feet 8 inches tall. He weighs 160 pounds. His BMI is 24.3, which is normal. Total time: 29 minutes.
== END 2020-07-13 23:59 ==
LOC: WC 09:53
PROVIDERS: PCP Family Medicine; Referring Provider Family Medicine; Visit Provider Surgery
DX: I87.332 Chronic venous hypertension (idiopathic) with ulcer and inflammation of left lower extremity (principal); L97.322 Non-pressure chronic ulcer of left ankle with fat layer exposed; I87.2 Venous insufficiency (chronic) (peripheral); M79.89 Other specified soft tissue disorders; J43.9 Emphysema, unspecified; I10 Essential (primary) hypertension; N40.0 Benign prostatic hyperplasia without lower urinary tract symptoms; F17.210 Nicotine dependence, cigarettes, uncomplicated; Z79.51 Long term (current) use of inhaled steroids; Z79.899 Other long term (current) drug therapy
CPT/HCPCS: 11042; 36415; 80053; 84134; 85025; 99213; G0463

== ENCOUNTER 2020-08-12 09:45 | Outpatient (RCR) | payer MEDICARE, SELFPAY ==
[2020-07-14 00:38] VITALS: BP 135/74; PULSE 86; RESP 16; TEMP 36
[2020-07-22 10:33] VITALS: BP 142/79; PULSE 70; TEMP 36.1; BMI 24.3
--- NOTE | 2020-07-22 10:53 | PCM.WC.HP ---
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, left Status: Chronic Code(s): I87.012 - 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 (5) Swelling of lower limb Status: Chronic Code(s): M79.89 - Other specified soft tissue disorders (6) Tobacco abuse Status: Chronic Code(s): Z72.0 - Tobacco use (7) Emphysema of lung Status: Chronic Code(s): J43.9 - Emphysema, unspecified (8) Ulcer of ankle Status: Chronic Qualifiers: (9) 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 Code(s): I83.209 - Varicose veins of unspecified lower extremity with both ulcer of unspecified site and inflammation; L97.909 - Non-pressure chronic ulcer of unspecified part of unspecified lower leg with unspecified severity (10) Venous hypertension, chronic, with ulcer and inflammation Status: Chronic Qualifiers: Code(s): I87.339 - Chronic venous hypertension (idiopathic) with ulcer and inflammation of unspecified lower extremity (11) History of kidney stones Status: Chronic Code(s): Z87.442 - Personal history of urinary calculi (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 He was previously treated at the [facility] in 2016 relative to a venous ulceration near the left medial malleolus. He was treated by conservative means, and his ulcer was ultimately healed. The patient has presented again recently with a new ulceration near the left medial malleolus, though it is slightly more distal location. The ulceration has been present for approximately 6 weeks. A venous duplex examination performed on March 20, 2020, revealed incompetence of the left great saphenous vein, a duplicate left great saphenous vein, and the left small saphenous vein. Patient has been implementing conservative treatment measures for many years, including leg elevation, avoidance of idle standing and sitting, use of graduated compression stockings of at least 20 to 30 mmHg compression, active lifestyle, weight control measures, and the use of [id number] anti-inflammatory medications as needed. Despite these measures, the ulceration near the left medial malleolus recurred, and the patient has been urged to redouble his efforts at implementing conservative treatment measures. The patient has had several ulcerations in this area. He also has a history of superficial thrombophlebitis in the left lower extremity in the past. He suffers from chronic swelling and edema in both lower extremities, which is most prominent at the end of the day. He sleeps on a flat surface at night. Past Medical History Past Medical History: Chronic Problems Eustachian tube dysfunction (Chronic) Hypertension (Chronic) History of superficial thrombophlebitis (Chronic) Postphlebitic syndrome with ulcer, left (Chronic) Swelling of lower limb (Chronic) Tobacco abuse (Chronic) Emphysema of lung (Chronic) Ulcer of ankle (Chronic) Varicose veins with ulcer and inflammation (Chronic) Venous hypertension, chronic, with ulcer and inflammation (Chronic) History of kidney stones (Chronic) Umaña phlebectatica (Chronic) Prostatism (Chronic) Chronic venous insufficiency (Chronic) Surgical History: - - The patient underwent lithotripsy for a right kidney stone in September 2015. Left hand surgery was performed approximately 10 years ago. The patient underwent L4-5 discectomy approximately 20 years ago. Allergies/Adverse Reactions: Allergies ibuprofen [From Motrin] Allergy (Verified 04/26/20 06:59) Swelling Home Medications: Ambulatory Orders Medication Instructions Recorded Budesonide/Formoterol 160/4.5 2 puff INHALATION BID 06/02/16 [Symbicort 160/4.5 Mcg Inhaler (SP)] Amlodipine Besylate 5 mg PO DAILY 04/26/20 - Family History Maternal - - The patient's father at age of 93 with a history of Alzheimer's disease. The patient's mother at age of 61 with stomach cancer. Smoking Status: Current every day smoker Tobacco Use: Cigarettes Review of Systems Constitutional: Denies: Chills, Fever, Weight Change Eyes: Denies: Pain, Vision Change HEENT: Denies: Difficulty Hearing, Difficulty Swallowing, Sinus Congestion Cardiovascular: Denies: Chest Pain, Palpitations Respiratory: Denies: Cough, Shortness of Breath Gastrointestinal: Denies: Diarrhea, Nausea, Vomiting Genitourinary: Denies: Dysuria, Hematuria Endocrine: Denies: Heat/ Cold Intolerance, Polydipsia, Polyuria Hematologic/ Lymphatic: Denies: Easy Bruising, Easy Bleeding - Physical Exam Vital Signs Temp Pulse Resp BP 96.9 F L 70 16 142/79 H 07/22/20 10:33 07/22/20 10:33 07/14/20 00:38 07/22/20 10:33 General: Alert, Oriented x3, Cooperative, No apparent distress, Well developed, Well nourished HEENT: Atraumatic, PERRLA, EOMI, Normocephalic Oral: Moist Mucosa Neck: No JVD Lungs: Normal air movement Abdomen: Non-Distended Extremities: No clubbing, No cyanosis, No edema, No Calf Tenderness Addt'l Wound Findings: The ulceration near the left medial malleolus persists. It is relatively small in size. It appears to be slightly smaller than previously noted. Dimensions are documented elsewhere. There is no sign of infection or cellulitis. There is a moderate amount of bioburden. Wound Measurements and Assessment WC - Nurse 1 - General Ulcer Measurement Start: 07/22/20 10:33 Freq: Status: Active Protocol: Activity Type Activity Date Activity User E-Sign Co-Sign Detail Recorded Client Recorded Date Recorded By Document 07/22/20 10:33 MW [id number] 07/22/20 10:38 MW 07/22/20 10:33 Wound Center Nurse 1 [Ulcer Assessment] #2 left medial ankle -Combined with other wound No -Current Size (cm) - Length 0.3 -Current Size (cm) - Width 0.3 -Current Size (cm) - Depth 0.1 -Total Square Cm 0.09 -Photo Taken No -Epithelialization None Present -Tunneling No -Undermining/Tunneling No -Circular Undermining No -Exudate Amt Small -Exudate Type Serosanguineous -Wound Margin Flat & Intact -Granulation Amt None Present (0 %) -Granulation Quality N/A -Slough/Fibrin Yes -Necrosis Amt Large (67-100%) -Necrotic Tissue Type Adherent Slough -Structure Exposed N/A -Texture (Corine-wound Skin Appearance) Assessed, Scarring -Moisture (Corine-wound Skin Appearance No Abnormality, ) Assessed -Color (Corine-wound Skin Appearance) Assessed, Hemosiderin Staining -Temperature (Corine-wound Skin No Abnormality Appearance) (Pt Warm) -Tenderness on Palpation (Corine-wound Yes Skin Appearance) -Ulcer Cleansing Rinsed/ Irrigated with Saline -Foul Odor after Cleansing No -Anesthetic Used 4% Lidocaine Solution [Edema Assessment] -Lower Limb Edema Present Yes -Left Calf (cm) 35.5 -Left Ankle (cm) 22.5 Musculoskeletal: No Muscle Wasting Neurological: Cranial nerves II-XII grossly intact, Neuro grossly intact Psych/Mental Status: Normal Affect, Appropriate, Alert and oriented to time, place, person, mood and affect Debridement Note Laterality: Left - Medial malleolus Type of Debridement: Excisional debridement Anesthesia Used: 5% Lidocaine Gel Depth: Down to and including healthy tissue, in the subcutaneous layer Percentage of wound debrided: 100 Instrument Used: 5mm curette Tissue Removed: Bioburden Severity: Fat Layer Exposed Amount of bleeding with debridement: Mild Bleeding Controlled with: Compression and gauze Patient tolerated procedure well Assessment/Plan Assessment: This is an 85-year-old male with a longstanding history of chronic venous disease. 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 The patient is well-versed in the appropriate conservative treatment measures related to management of his venous disease. We have discussed these issues again in detail. Patient has been encouraged to elevate his lower extremities as much as possible. He is to continue sleeping on a flat mattress at night. Leg elevation is to be achieved even during daytime hours. Leg elevation is to be to heart level, or higher. Prolonged idle sitting has been discouraged. Activity has been encouraged. Weight optimization has been recommended. Compression is to be continued by means of graduated compression stockings of 20 to 30 mmHg, or higher. It appears as though the patient has such stockings, which are relatively new. Routine laboratory studies were obtained earlier today, with results as follows: White blood count 5.0, hemoglobin 13.0, hematocrit 41.4, platelets 259,000, sodium 141, potassium 4.1, chloride 108, BUN 18, creatinine 1.33, glucose 67, calcium 9.2, total bilirubin 0.50, AST 20, ALT 21, alkaline phosphatase 94, total protein 7.2, albumin 3.6, serum prealbumin 25.7. Plan: We are to continue with conservative treatment measures with respect to the patient's chronic venous disease. These measures have been discussed with the patient in detail, and are to include leg elevation, avoidance of idle standing and sitting, graduated compression stockings, weight control measures, active lifestyle, and the use of anti-inflammatory medications as needed. He continues to wear his graduated compression stockings, knee-high length, of 20 to 30 mmHg compression. These are worn on a daily basis. We are to continue the use of collagen hydrogel topically to the ulceration to the left medial malleolus. This is to be applied topically on a daily basis. Patient is to return in 1 week for reassessment. The patient will likely be a candidate for endovenous ablation in the left lower extremity. A prior venous duplex examination, performed on 03/20/2020 revealed incompetence of the left great saphenous vein, the duplicate left great saphenous vein, and the left small saphenous vein. The patient has indicated thathe wishes to pursue such superficial venous ablation, which might be achieved by either endothermal ablation or by means of VenaSeal medical adhesive closure. These options have been discussed, and will be discussed with the patient in more detail at ensuing visits. The patient is to return in 1 week for reassessment. Influenza vaccine was not administered today. The patient is a smoker, and has been encouraged to discontinue his smoking habit. Patient stands 5 feet 8 inches tall. He weighs 160 pounds. His BMI is 24.3, which is normal. Total time: 26 minutes.
[2020-07-29 10:37] VITALS: BP 144/84; PULSE 76; TEMP 36.1; BMI 24.3
--- NOTE | 2020-07-29 11:07 | PCM.WC.HP ---
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, left Status: Chronic Code(s): I87.012 - 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 (5) Swelling of lower limb Status: Chronic Code(s): M79.89 - Other specified soft tissue disorders (6) Tobacco abuse Status: Chronic Code(s): Z72.0 - Tobacco use (7) Emphysema of lung Status: Chronic Code(s): J43.9 - Emphysema, unspecified (8) Ulcer of ankle Status: Chronic Qualifiers: Laterality: left Non-pressure ulcer stage: with fat layer exposed Qualified Code(s): L97.322 - Non-pressure chronic ulcer of left ankle with fat layer exposed (9) 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 Code(s): I83.209 - Varicose veins of unspecified lower extremity with both ulcer of unspecified site and inflammation; L97.909 - Non-pressure chronic ulcer of unspecified part of unspecified lower leg with unspecified severity (10) Venous hypertension, chronic, with ulcer and inflammation Status: Chronic Qualifiers: Laterality: left Code(s): I87.339 - Chronic venous hypertension (idiopathic) with ulcer and inflammation of unspecified lower extremity (11) History of kidney stones Status: Chronic Code(s): Z87.442 - Personal history of urinary calculi (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 He was previously treated at the [facility] in 2016 relative to a venous ulceration near the left medial malleolus. He was treated by conservative means, and his ulcer was ultimately healed. The patient has presented again recently with a new ulceration near the left medial malleolus, though it is slightly more distal location. The ulceration has been present for approximately 6 weeks. A venous duplex examination performed on March 20, 2020, revealed incompetence of the left great saphenous vein, a duplicate left great saphenous vein, and the left small saphenous vein. Patient has been implementing conservative treatment measures for many years, including leg elevation, avoidance of idle standing and sitting, use of graduated compression stockings of at least 20 to 30 mmHg compression, active lifestyle, weight control measures, and the use of [id number] anti-inflammatory medications as needed. Despite these measures, the ulceration near the left medial malleolus recurred, and the patient has been urged to redouble his efforts at implementing conservative treatment measures. The patient has had several ulcerations in this area. He also has a history of superficial thrombophlebitis in the left lower extremity in the past. He suffers from chronic swelling and edema in both lower extremities, which is most prominent at the end of the day. He sleeps on a flat surface at night. Past Medical History Past Medical History: Chronic Problems Eustachian tube dysfunction (Chronic) Hypertension (Chronic) History of superficial thrombophlebitis (Chronic) Postphlebitic syndrome with ulcer, left (Chronic) Swelling of lower limb (Chronic) Tobacco abuse (Chronic) Emphysema of lung (Chronic) Ulcer of ankle (Chronic) Varicose veins with ulcer and inflammation (Chronic) Venous hypertension, chronic, with ulcer and inflammation (Chronic) History of kidney stones (Chronic) Umaña phlebectatica (Chronic) Prostatism (Chronic) Chronic venous insufficiency (Chronic) Surgical History: - - The patient underwent lithotripsy for a right kidney stone in September 2015. Left hand surgery was performed approximately 10 years ago. The patient underwent L4-5 discectomy approximately 20 years ago. Allergies/Adverse Reactions: Allergies ibuprofen [From Motrin] Allergy (Verified 04/26/20 06:59) Swelling Home Medications: Ambulatory Orders Medication Instructions Recorded Budesonide/Formoterol 160/4.5 2 puff INHALATION BID 06/02/16 [Symbicort 160/4.5 Mcg Inhaler (SP)] Amlodipine Besylate 5 mg PO DAILY 04/26/20 - Family History Maternal - - The patient's father at age of 93 with a history of Alzheimer's disease. The patient's mother at age of 61 with stomach cancer. Smoking Status: Current every day smoker Tobacco Use: Cigarettes Review of Systems Constitutional: Denies: Chills, Fever, Weight Change Eyes: Denies: Pain, Vision Change HEENT: Denies: Difficulty Hearing, Difficulty Swallowing, Sinus Congestion Cardiovascular: Denies: Chest Pain, Palpitations Respiratory: Denies: Cough, Shortness of Breath Gastrointestinal: Denies: Diarrhea, Nausea, Vomiting Genitourinary: Denies: Dysuria, Hematuria Endocrine: Denies: Heat/ Cold Intolerance, Polydipsia, Polyuria Hematologic/ Lymphatic: Denies: Easy Bruising, Easy Bleeding - Physical Exam Vital Signs Temp Pulse Resp BP 96.9 F L 76 16 144/84 H 07/29/20 10:37 07/29/20 10:37 07/14/20 00:38 07/29/20 10:37 General: Alert, Oriented x3, Cooperative, No apparent distress, Well developed, Well nourished HEENT: Atraumatic, PERRLA, EOMI, Normocephalic Oral: Moist Mucosa Neck: No JVD Lungs: Normal air movement Abdomen: Soft, Non-Distended Extremities: No clubbing, No cyanosis, No edema, No Calf Tenderness Addt'l Wound Findings: Scattered varicosities are noted in the patient's left lower extremity. The ulceration near the left medial malleolus persists. Dimensions are documented elsewhere. It appears to be slightly larger than noted 1 week ago. There is no sign of infection or cellulitis. A moderate amount of bioburden is present. Skin: No rashes Wound Measurements and Assessment WC - Nurse 1 - General Ulcer Measurement Start: 07/22/20 10:33 Freq: Status: Active Protocol: Activity Type Activity Date Activity User E-Sign Co-Sign Detail Recorded Client Recorded Date Recorded By Document 07/29/20 10:37 AVERY [id number] 07/29/20 10:41 KR 07/29/20 10:37 Wound Center Nurse 1 [Ulcer Assessment] #2 left medial ankle -Current Size (cm) - Length 0.6 -Current Size (cm) - Width 0.3 -Current Size (cm) - Depth 0.1 -Total Square Cm 0.18 -Exudate Amt Small -Exudate Type Serosanguineous -Wound Margin Distinct, Outline Attached -Granulation Amt Medium (34-66%) -Granulation Quality Red -Necrosis Amt Small (1-33%) -Necrotic Tissue Type Adherent Slough -Texture (Corine-wound Skin Appearance) Assessed, Scarring -Moisture (Corine-wound Skin Appearance No Abnormality, ) Assessed -Color (Corine-wound Skin Appearance) No Abnormality, Assessed -Temperature (Corine-wound Skin No Abnormality Appearance) (Pt Warm) -Tenderness on Palpation (Corine-wound No Skin Appearance) -Ulcer Cleansing Rinsed/ Irrigated with Saline -Foul Odor after Cleansing No -Anesthetic Used 4% Lidocaine Solution,5% Lidocaine Gel WC - Nurse 3 - General Ulcer D/C NN Start: 07/22/20 10:33 Freq: Status: Active Protocol: Activity Type Activity Date Activity User E-Sign Co-Sign Detail Recorded Client Recorded Date Recorded By Document 07/29/20 11:04 AVERY [id number] 07/29/20 11:04 AVERY 07/29/20 11:04 Wound Care Nurse 3 [Wound Dressing] -Ulcer Cleansing Rinsed/ Irrigated with Saline -Primary Dressing Applied C Hydrogel ($) -Primary Dressing Covered/Secured Dry Gauze, with Secured with Tape Pain Scale: 0-10 Numeric [Pain] -Is Patient Pain Free? Yes WC - Visit Discharge [Visit Discharge Information] -Discharge Condition Stable -Ambulatory Status Ambulatory -Transportation Private Auto Musculoskeletal: No Muscle Wasting Neurological: Cranial nerves II-XII grossly intact, Neuro grossly intact Psych/Mental Status: Normal Affect, Appropriate, Alert and oriented to time, place, person, mood and affect Debridement Note Post-Debridement Measurements/Treatment WC - Nurse 2 - General Ulcer CM Notes Start: 07/22/20 10:33 Freq: Status: Active Protocol: Activity Type Activity Date Activity User E-Sign Co-Sign Detail Recorded Client Recorded Date Recorded By Document 07/22/20 13:04 JESSICA [id number] 07/22/20 13:06 PL 07/22/20 13:04 Wound Center Nurse 2 #2 left medial ankle -Time 10:45 -Correct Patient Yes -Correct Side, Site, Position Yes -Correct Procedure Yes -Procedure Performed Yes -Type of Procedure Debridement -Clinical Debridement Subcutaneous -Tissue Removed Subcutaneous -Post Debridement (cm) - Length 0.3 -Post Debridement (cm) - Width 0.3 -Post Debridement (cm) - Depth 0.1 -Total Square (Post) (cm) 0.09 -Area of Debridement (cm) - Length 0.3 -Area of Debridement (cm) - Width 0.3 -Total Square (Area) (cm) 0.09 -Tunneling No -Undermining/Tunneling No -Circular Undermining No -Wound/Ulcer Outcome Not Healed -Ulcer Cleansing Rinsed/ Irrigated with Saline -Foul Odor after Cleansing No -Bioengineered Tissue No -Debridement - Subq, 1st 20sq cm Yes Pain Scale: 0-10 Numeric Is Patient Pain Free? Yes - Nurse 3 - General Ulcer D/C NN Start: 07/22/20 10:33 Freq: Status: Active Protocol: Activity Type Activity Date Activity User E-Sign Co-Sign Detail Recorded Client Recorded Date Recorded By Document 07/22/20 13:04 JESSICA [id number] 07/22/20 13:06 PL Document 07/29/20 11:04 KR [id number] 07/29/20 11:04 KR 07/22/20 07/29/20 13:04 11:04 Pain Scale: 0-10 Numeric Is Patient Pain Free? Yes Yes Wound Care Nurse 3 #2 left medial ankle -Ulcer Cleansing Rinsed/ Rinsed/ Irrigated with Irrigated with Saline Saline -Foul Odor after Cleansing No -Primary Dressing Applied C Hydrogel ($) -Other Dressing Hydrogel -Primary Dressing Covered/Secured with Dry Gauze, Dry Gauze, Secured with Secured with Tape Tape WC - Visit Discharge Discharge Condition Stable Stable Ambulatory Status Ambulatory Ambulatory Transportation Private Auto Private Auto Clinical Summary of Care Provided Yes Laterality: Left - Medial malleolus Type of Debridement: Excisional debridement Anesthesia Used: 5% Lidocaine Gel Depth: Down to and including healthy tissue, in the subcutaneous layer Percentage of wound debrided: 100 Instrument Used: 3mm curette Tissue Removed: Bioburden Severity: Fat Layer Exposed Amount of bleeding with debridement: Mild Bleeding Controlled with: Compression and gauze Patient tolerated procedure well Assessment/Plan Active Problems Eustachian tube dysfunction (Chronic) Hypertension (Chronic) History of superficial thrombophlebitis (Chronic) Postphlebitic syndrome with ulcer, left (Chronic) Swelling of lower limb (Chronic) Tobacco abuse (Chronic) Emphysema of lung (Chronic) Ulcer of ankle (Chronic) 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 The patient suffers from chronic venous hypertension with inflammation and ulceration, postphlebitic syndrome with inflammation and ulceration, varicose veins with inflammation and ulceration, and umaña phlebectatica in association with a venous ulceration near the left medial malleolus. The patient is well-versed in the appropriate conservative treatment measures related to management of his venous disease. We have discussed these issues again in detail. Patient has been encouraged to elevate his lower extremities as much as possible. He is to continue sleeping on a flat mattress at night. Leg elevation is to be achieved even during daytime hours. Leg elevation is to be to heart level, or higher. Prolonged idle sitting has been discouraged. Activity has been encouraged. Weight optimization has been recommended. Compression is to be continued by means of graduated compression stockings of 20 to 30 mmHg, or higher. It appears as though the patient has such stockings, which are relatively new. Routine laboratory studies were obtained earlier today, with results as follows: White blood count 5.0, hemoglobin 13.0, hematocrit 41.4, platelets 259,000, sodium 141, potassium 4.1, chloride 108, BUN 18, creatinine 1.33, glucose 67, calcium 9.2, total bilirubin 0.50, AST 20, ALT 21, alkaline phosphatase 94, total protein 7.2, albumin 3.6, serum prealbumin 25.7. Plan: We are to continue with conservative treatment measures with respect to the patient's chronic venous disease. These measures have been discussed with the patient in detail, and are to include leg elevation, avoidance of idle standing and sitting, graduated compression stockings, weight control measures, active lifestyle, and the use of anti-inflammatory medications as needed. He continues to wear his graduated compression stockings, knee-high length, of 20 to 30 mmHg compression. These are worn on a daily basis. We are to continue the use of collagen hydrogel topically to the ulceration to the left medial malleolus. This is to be applied topically on a daily basis. Patient is to return in 1 week for reassessment. The patient is felt to be a candidate for endovenous laser ablation in the left lower extremity. A prior venous duplex examination, performed on 03/20/2020 revealed incompetence of the left great saphenous vein, the duplicate left great saphenous vein, and the left small saphenous vein. The patient has indicated that he wishes to pursue such superficial venous ablation. We have discussed endovenous laser ablation in detail, including its indications and risks, expected benefits, potential adverse events, etc. It is expected that the procedure will reduce the likelihood of recurrence in the future, and may well enhance the rate of healing relative to his current ulceration. The nature of the procedure and its expected recovery has been thoroughly explained. A brochure has been provided to the patient for further educational purposes. The patient has indicated his desire to proceed. The procedure will be preauthorized, and subsequently scheduled for the near future. The patient is to return in 1 week for reassessment. In the interim, he is to continue with collagen hydrogel topically, and the conservative treatment measures which have been described above. Influenza vaccine was not administered today. The patient is a smoker, and has been encouraged to discontinue his smoking habit. Patient stands 5 feet 8 inches tall. He weighs 160 pounds. His BMI is 24.3, which is normal. Total time: 28 minutes.
[2020-08-05 10:31] VITALS: BP 143/87; PULSE 71; RESP 18; TEMP 36.6; BMI 24.3
--- NOTE | 2020-08-05 11:02 | HP.PCM_ITS ---
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, left Status: Chronic Code(s): I87.012 - 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 (5) Swelling of lower limb Status: Chronic Code(s): M79.89 - Other specified soft tissue disorders (6) Tobacco abuse Status: Chronic Code(s): Z72.0 - Tobacco use (7) Emphysema of lung Status: Chronic Code(s): J43.9 - Emphysema, unspecified (8) Ulcer of ankle Status: Chronic Qualifiers: Laterality: left Non-pressure ulcer stage: with fat layer exposed Qualified Code(s): L97.322 - Non-pressure chronic ulcer of left ankle with fat layer exposed (9) 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 Code(s): I83.209 - Varicose veins of unspecified lower extremity with both ulcer of unspecified site and inflammation; L97.909 - Non- pressure chronic ulcer of unspecified part of unspecified lower leg with unspecified severity (10) Venous hypertension, chronic, with ulcer and inflammation Status: Chronic Qualifiers: Laterality: left Code(s): I87.339 - Chronic venous hypertension (idiopathic) with ulcer and inflammation of unspecified lower extremity (11) History of kidney stones Status: Chronic Code(s): Z87.442 - Personal history of urinary calculi (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 He was previously treated at the [facility] in 2016 relative to a venous ulceration near the left medial malleolus. He was treated by conservative means, and his ulcer was ultimately healed. The patient has presented again recently with a new ulceration near the left medial malleolus, though it is slightly more distal location. The ulceration has been present for approximately 6 weeks. A venous duplex examination performed on March 20, 2020, revealed incompetence of the left great saphenous vein, a duplicate left great saphenous vein, and the left small saphenous vein. Patient has been implementing conservative treatment measures for many years, including leg elevation, avoidance of idle standing and sitting, use of graduated compression stockings of at least 20 to 30 mmHg compression, active lifestyle, weight control measures, and the use of [id number] anti-inflammatory medications as needed. Despite these measures, the ulceration near the left medial malleolus recurred, and the patient has been urged to redouble his efforts at implementing conservative treatment measures. The patient has had several ulcerations in this area. He also has a history of superficial thrombophlebitis in the left lower extremity in the past. He suffers from chronic swelling and edema in both lower extremities, which is most prominent at the end of the day. He sleeps on a flat surface at night. Past Medical History Past Medical History: Chronic Problems Eustachian tube dysfunction (Chronic) Hypertension (Chronic) History of superficial thrombophlebitis (Chronic) Postphlebitic syndrome with ulcer, left (Chronic) Swelling of lower limb (Chronic) Tobacco abuse (Chronic) Emphysema of lung (Chronic) Ulcer of ankle (Chronic) Varicose veins with ulcer and inflammation (Chronic) Venous hypertension, chronic, with ulcer and inflammation (Chronic) History of kidney stones (Chronic) Umaña phlebectatica (Chronic) Prostatism (Chronic) Chronic venous insufficiency (Chronic) Surgical History: - - The patient underwent lithotripsy for a right kidney stone in September 2015. Left hand surgery was performed approximately 10 years ago. The patient underwent L4-5 discectomy approximately 20 years ago. Allergies/Adverse Reactions: Allergies ibuprofen [From Motrin] Allergy (Verified 04/26/20 06:59) Swelling Home Medications: Ambulatory Orders Medication Instructions Recorded Budesonide/Formoterol 160/4.5 2 puff INHALATION BID 06/02/16 [Symbicort 160/4.5 Mcg Inhaler (SP)] Amlodipine Besylate 5 mg PO DAILY 04/26/20 - Family History Maternal - - The patient's father at age of 93 with a history of Alzheimer's disease. The patient's mother at age of 61 with stomach cancer. Smoking Status: Current every day smoker Tobacco Use: Cigarettes Review of Systems Constitutional: Denies: Chills, Fever, Weight Change Eyes: Denies: Pain, Vision Change HEENT: Denies: Difficulty Hearing, Difficulty Swallowing, Sinus Congestion Cardiovascular: Denies: Chest Pain, Palpitations Respiratory: Denies: Cough, Shortness of Breath Gastrointestinal: Denies: Diarrhea, Nausea, Vomiting Genitourinary: Denies: Dysuria, Hematuria Endocrine: Denies: Heat/ Cold Intolerance, Polydipsia, Polyuria Hematologic/ Lymphatic: Denies: Easy Bruising, Easy Bleeding - Physical Exam Vital Signs Temp Pulse Resp BP 97.8 F 71 18 143/87 H 08/05/20 10:31 08/05/20 10:31 08/05/20 10:31 08/05/20 10:31 General: Alert, Oriented x3, Cooperative, No apparent distress, Well developed, Well nourished HEENT: Atraumatic, PERRLA, EOMI, Normocephalic Oral: Moist Mucosa Neck: No JVD Lungs: Normal air movement Abdomen: Non-Distended Extremities: No clubbing, No cyanosis, No Calf Tenderness, - - No significant swelling or edema noted in the patient's left lower extremity. Areas of hyperpigmentation are noted. Addt'l Wound Findings: The ulceration on the left medial malleolus persists. It is little changed in size or appearance. Dimensions are documented elsewhere. There is no sign of infection or cellulitis. There is a moderate amount of bioburden. There appears to be a small amount of nonviable tissue at the base of the ulceration. Skin: No rashes Wound Measurements and Assessment WC - Nurse 1 - General Ulcer Measurement Start: 07/22/20 10:33 Freq: Status: Active Protocol: Activity Type Activity Date Activity User E-Sign Co-Sign Detail Recorded Client Recorded Date Recorded By Document 08/05/20 10:31 [facility] [id number] 08/05/20 10:38 [facility] 08/05/20 10:31 Wound Center Nurse 1 [Ulcer Assessment] #2 left medial ankle -Combined with other wound No -Current Size (cm) - Length 0.7 -Current Size (cm) - Width 0.8 -Current Size (cm) - Depth 0.3 -Total Square Cm 0.56 -Photo Taken No -Epithelialization None Present -Tunneling No -Undermining/Tunneling No -Circular Undermining No -Exudate Amt Small -Exudate Type Serosanguineous -Wound Margin Distinct, Outline Attached -Granulation Amt Small (1-33%) -Granulation Quality Red -Slough/Fibrin Yes -Necrosis Amt Large (67-100%) -Necrotic Tissue Type Adherent Slough -Texture (Corine-wound Skin Appearance) Assessed, Scarring -Moisture (Corine-wound Skin Appearance Assessed,Dry/ ) Scaly -Color (Corine-wound Skin Appearance) Assessed, Erythema -Temperature (Corine-wound Skin No Abnormality Appearance) (Pt Warm) -Tenderness on Palpation (Corine-wound Yes Skin Appearance) -Ulcer Cleansing Rinsed/ Irrigated with Saline -Foul Odor after Cleansing No -Anesthetic Used 5% Lidocaine Gel [Edema Assessment] -Lower Limb Edema Present Yes -Left Calf (cm) 35.7 -Left Ankle (cm) 22.6 Musculoskeletal: No Muscle Wasting Neurological: Cranial nerves II-XII grossly intact, Neuro grossly intact Psych/Mental Status: Normal Affect, Appropriate, Alert and oriented to time, place, person, mood and affect Debridement Note Post-Debridement Measurements/Treatment WC - Nurse 2 - General Ulcer CM Notes Start: 07/22/20 10:33 Freq: Status: Active Protocol: Activity Type Activity Date Activity User E-Sign Co-Sign Detail Recorded Client Recorded Date Recorded By Document 07/22/20 13:04 PL [id number] 07/22/20 13:06 PL Document 07/29/20 14:57 PL [id number] 07/29/20 14:58 PL 07/22/20 07/29/20 13:04 14:57 Wound Center Nurse 2 #2 left medial ankle -Time 10:45 10:51 -Correct Patient Yes Yes -Correct Side, Site, Position Yes Yes -Correct Procedure Yes Yes -Procedure Performed Yes Yes -Type of Procedure Debridement Debridement -Clinical Debridement Subcutaneous Subcutaneous -Tissue Removed Subcutaneous Subcutaneous -Post Debridement (cm) - Length 0.3 0.6 -Post Debridement (cm) - Width 0.3 0.3 -Post Debridement (cm) - Depth 0.1 0.1 -Total Square (Post) (cm) 0.09 0.18 -Area of Debridement (cm) - Length 0.3 0.6 -Area of Debridement (cm) - Width 0.3 0.3 -Total Square (Area) (cm) 0.09 0.18 -Tunneling No No -Undermining/Tunneling No -Circular Undermining No No -Wound/Ulcer Outcome Not Healed Not Healed -Ulcer Cleansing Rinsed/ Rinsed/ Irrigated with Irrigated with Saline Saline -Foul Odor after Cleansing No No -Bioengineered Tissue No No -Debridement - Subq, 1st 20sq cm Yes Yes Pain Scale: 0-10 Numeric Is Patient Pain Free? Yes Yes - Nurse 3 - General Ulcer D/C NN Start: 07/22/20 10:33 Freq: Status: Active Protocol: Activity Type Activity Date Activity User E-Sign Co-Sign Detail Recorded Client Recorded Date Recorded By Document 07/22/20 13:04 JESSICA [id number] 07/22/20 13:06 PL Document 07/29/20 11:04 KR [id number] 07/29/20 11:04 KR 07/22/20 07/29/20 13:04 11:04 Pain Scale: 0-10 Numeric Is Patient Pain Free? Yes Yes Wound Care Nurse 3 #2 left medial ankle -Ulcer Cleansing Rinsed/ Rinsed/ Irrigated with Irrigated with Saline Saline -Foul Odor after Cleansing No -Primary Dressing Applied C Hydrogel ($) -Other Dressing Hydrogel -Primary Dressing Covered/Secured with Dry Gauze, Dry Gauze, Secured with Secured with Tape Tape WC - Visit Discharge Discharge Condition Stable Stable Ambulatory Status Ambulatory Ambulatory Transportation Private Auto Private Auto Clinical Summary of Care Provided Yes Laterality: Left - Medial malleolus Type of Debridement: Excisional debridement Anesthesia Used: 5% Lidocaine Gel Depth: Down to and including healthy tissue, in the subcutaneous layer Percentage of wound debrided: 100 Instrument Used: 5mm curette Tissue Removed: Bioburden and necrotic, nonviable tissue Severity: Fat Layer Exposed Amount of bleeding with debridement: Mild Bleeding Controlled with: Compression and gauze Patient tolerated procedure well Assessment/Plan Active Problems Eustachian tube dysfunction (Chronic) Hypertension (Chronic) History of superficial thrombophlebitis (Chronic) Postphlebitic syndrome with ulcer, left (Chronic) Swelling of lower limb (Chronic) Tobacco abuse (Chronic) Emphysema of lung (Chronic) Ulcer of ankle (Chronic) 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 The patient suffers from chronic venous hypertension with inflammation and ulceration, postphlebitic syndrome with inflammation and ulceration, varicose veins with inflammation and ulceration, and umaña phlebectatica in association with a venous ulceration near the left medial malleolus. The patient is well-versed in the appropriate conservative treatment measures related to management of his venous disease. We have discussed these issues again in detail. Patient has been encouraged to elevate his lower extremities as much as possible. He is to continue sleeping on a flat mattress at night. Leg elevation is to be achieved even during daytime hours. Leg elevation is to be to heart level, or higher. Prolonged idle sitting has been discouraged. Activity has been encouraged. Weight optimization has been recommended. Compression is to be continued by means of graduated compression stockings of 20 to 30 mmHg. Routine laboratory studies were obtained recently, with results as follows: White blood count 5.0, hemoglobin 13.0, hematocrit 41.4, platelets 259,000, sodium 141, potassium 4.1, chloride 108, BUN 18, creatinine 1.33, glucose 67, calcium 9.2, total bilirubin 0.50, AST 20, ALT 21, alkaline phosphatase 94, total protein 7.2, albumin 3.6, serum prealbumin 25.7. Plan: We are to continue with conservative treatment measures with respect to the patient's chronic venous disease. These measures have been discussed with the patient in detail, and are to include leg elevation, avoidance of idle latoya ding and sitting, graduated compression stockings, weight control measures, active lifestyle, and the use of anti-inflammatory medications as needed. He continues to wear his graduated compression stockings, knee-high length, of 20 to 30 mmHg compression. These are worn on a daily basis. We are to incision to the use of collagenase Santyl, which will be applied to the ulceration daily. The patient is to be instructed in the appropriate means of application. The presence of necrotic and nonviable tissue has prompted the transition to the use of collagenase Santyl, which will provide with an enzymatic debridement. Additionally, the patient complains of pain at the site of his ulceration, which is not adequately controlled by [id number] analgesics. A prescription is to be provided for tramadol. Patient is to return in 1 week for reassessment. The patient is felt to be a candidate for endovenous laser ablation in the left lower extremity. A prior venous duplex examination, performed on 03/20/2020 revealed incompetence of the left great saphenous vein, the duplicate left great saphenous vein, and the left small saphenous vein. The patient has indicated that he wishes to pursue such superficial venous ablation. We have discussed endovenous laser ablation in detail, including its indications and risks, expected benefits, potential adverse events, etc. It is expected that the procedure will reduce the likelihood of recurrence in the future, and may well enhance the rate of healing relative to his current ulceration. The nature of the procedure and its expected recovery has been thoroughly explained. A brochure has been provided to the patient for further educational purposes. The patient has indicated his desire to proceed. The procedure will be preauthorize d, and subsequently scheduled for the near future. The patient is to return in 1 week for reassessment. Influenza vaccine was not administered today. The patient is a smoker, and has been encouraged to discontinue his smoking habit. Patient stands 5 feet 8 inches tall. He weighs 160 pounds. His BMI is 24.3, which is normal. Total time: 29 minutes.
[2020-08-12 09:42] VITALS: BP 130/75; PULSE 91; RESP 18; TEMP 36.6; BMI 24.3
--- NOTE | 2020-08-12 10:01 | HP.PCM_ITS ---
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, left Status: Chronic Code(s): I87.012 - 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 (5) Swelling of lower limb Status: Chronic Code(s): M79.89 - Other specified soft tissue disorders (6) Tobacco abuse Status: Chronic Code(s): Z72.0 - Tobacco use (7) Emphysema of lung Status: Chronic Code(s): J43.9 - Emphysema, unspecified (8) Ulcer of ankle Status: Chronic Qualifiers: Laterality: left Non-pressure ulcer stage: with fat layer exposed Qualified Code(s): L97.322 - Non-pressure chronic ulcer of left ankle with fat layer exposed (9) 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 Code(s): I83.209 - Varicose veins of unspecified lower extremity with both ulcer of unspecified site and inflammation; L97.909 - Non- pressure chronic ulcer of unspecified part of unspecified lower leg with unspecified severity (10) Venous hypertension, chronic, with ulcer and inflammation Status: Chronic Qualifiers: Laterality: left Code(s): I87.339 - Chronic venous hypertension (idiopathic) with ulcer and inflammation of unspecified lower extremity (11) History of kidney stones Status: Chronic Code(s): Z87.442 - Personal history of urinary calculi (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 He was previously treated at the [facility] in 2016 relative to a venous ulceration near the left medial malleolus. He was treated by conservative means, and his ulcer was ultimately healed. The patient has presented again recently with a new ulceration near the left medial malleolus, though it is slightly more distal location. The ulceration has been present for approximately 6 weeks. A venous duplex examination performed on March 20, 2020, revealed incompetence of the left great saphenous vein, a duplicate left great saphenous vein, and the left small saphenous vein. Patient has been implementing conservative treatment measures for many years, including leg elevation, avoidance of idle standing and sitting, use of graduated compression stockings of at least 20 to 30 mmHg compression, active lifestyle, weight control measures, and the use of fevy-qek-oykwjnx anti-inflammatory medications as needed. Despite these measures, the ulceration near the left medial malleolus recurred, and the patient has been urged to redouble his efforts at implementing conservative treatment measures. The patient has had several ulcerations in this area. He also has a history of superficial thrombophlebitis in the left lower extremity in the past. He suffers from chronic swelling and edema in both lower extremities, which is most prominent at the end of the day. He sleeps on a flat surface at night. Past Medical History Past Medical History: Chronic Problems Eustachian tube dysfunction (Chronic) Hypertension (Chronic) History of superficial thrombophlebitis (Chronic) Postphlebitic syndrome with ulcer, left (Chronic) Swelling of lower limb (Chronic) Tobacco abuse (Chronic) Emphysema of lung (Chronic) Ulcer of ankle (Chronic) Varicose veins with ulcer and inflammation (Chronic) Venous hypertension, chronic, with ulcer and inflammation (Chronic) History of kidney stones (Chronic) Umaña phlebectatica (Chronic) Prostatism (Chronic) Chronic venous insufficiency (Chronic) Surgical History: - - The patient underwent lithotripsy for a right kidney stone in September 2015. Left hand surgery was performed approximately 10 years ago. The patient underwent L4-5 discectomy approximately 20 years ago. Allergies/Adverse Reactions: Allergies ibuprofen [From Motrin] Allergy (Verified 04/26/20 06:59) Swelling Home Medications: Ambulatory Orders Medication Instructions Recorded Budesonide/Formoterol 160/4.5 2 puff INHALATION BID 06/02/16 [Symbicort 160/4.5 Mcg Inhaler (SP)] Amlodipine Besylate 5 mg PO DAILY 04/26/20 - Family History Maternal - - The patient's father at age of 93 with a history of Alzheimer's disease. The patient's mother at age of 61 with stomach cancer. Smoking Status: Current every day smoker Tobacco Use: Cigarettes Review of Systems Constitutional: Denies: Chills, Fever, Weight Change Eyes: Denies: Pain, Vision Change HEENT: Denies: Difficulty Hearing, Difficulty Swallowing, Sinus Congestion Cardiovascular: Denies: Chest Pain, Palpitations Respiratory: Denies: Cough, Shortness of Breath Gastrointestinal: Denies: Diarrhea, Nausea, Vomiting Genitourinary: Denies: Dysuria, Hematuria Endocrine: Denies: Heat/ Cold Intolerance, Polydipsia, Polyuria Hematologic/ Lymphatic: Denies: Easy Bruising, Easy Bleeding - Physical Exam Vital Signs Temp Pulse Resp BP 97.8 F 91 18 130/75 H 08/12/20 09:42 08/12/20 09:42 08/12/20 09:42 08/12/20 09:42 General: Alert, Oriented x3, Cooperative, No apparent distress, Well developed, Well nourished HEENT: Atraumatic, PERRLA, EOMI, Normocephalic Oral: Moist Mucosa Neck: No JVD Lungs: Normal air movement Abdomen: Non-Distended Extremities: No clubbing, No cyanosis, No edema, No Calf Tenderness, - - The ulceration near the left medial malleolus is little changed in size. Dimensions are documented elsewhere. There is no sign of infection or cellulitis. There is a small amount of bioburden. The base of the ulceration is pink and healthy. Skin: No rashes Wound Measurements and Assessment WC - Nurse 1 - General Ulcer Measurement Start: 07/22/20 10:33 Freq: Status: Active Protocol: Activity Type Activity Date Activity User E-Sign Co-Sign Detail Recorded Client Recorded Date Recorded By Document 08/12/20 09:42 PL [id number] 08/12/20 09:48 PL 08/12/20 09:42 Wound Center Nurse 1 [Ulcer Assessment] #2 left medial ankle -Combined with other wound No -Current Size (cm) - Length 0.9 -Current Size (cm) - Width 0.8 -Current Size (cm) - Depth 0.1 -Total Square Cm 0.72 -Photo Taken No -Epithelialization None Present -Exudate Amt Medium -Exudate Type Serosanguineous -Granulation Amt Small (1-33%) -Granulation Quality [place] -Slough/Fibrin Yes -Necrosis Amt Large (67-100%) -Necrotic Tissue Type Adherent Slough -Ulcer Cleansing Rinsed/ Irrigated with Saline -Foul Odor after Cleansing No -Anesthetic Used 5% Lidocaine Gel WC - Nurse 3 - General Ulcer D/C NN Start: 07/22/20 10:33 Freq: Status: Active Protocol: Activity Type Activity Date Activity User E-Sign Co-Sign Detail Recorded Client Recorded Date Recorded By Document 08/12/20 10:00 MW [id number] 08/12/20 10:00 MW 08/12/20 10:00 Wound Care Nurse 3 [Wound Dressing] -Ulcer Cleansing Rinsed/ Irrigated with Saline -Foul Odor after Cleansing No -Negative Pressure Wound Therapy N/A -Other Dressing c.hydrogel -Primary Dressing Covered/Secured Dry Gauze, with Secured with Tape [Post Procedure Tolerated] -Treatment Response Procedure Tolerated Well Pain Scale: 0-10 Numeric [Pain] -Is Patient Pain Free? Yes Teaching: Wound Center [Wound Center Education] (Items with an * have Printed Materials Available- Please identify what is given to patient under the Teaching materials given to patient and caregiver Section. Dressing Your Wound -Person Taught Patient -Teaching Method Discussion, Demonstration -Response to teaching Verbalize understanding WC - Visit Discharge [Visit Discharge Information] -Discharge Condition Stable -Ambulatory Status Ambulatory -Transportation Private Auto -Accompanied by self -Medication Reconcilliation completed No & provided to patient/care provider -Clinical Summary of Care Provided Yes Musculoskeletal: No Muscle Wasting Neurological: Cranial nerves II-XII grossly intact, Neuro grossly intact Psych/Mental Status: Normal Affect, Appropriate, Alert and oriented to time, place, person, mood and affect Debridement Note Post-Debridement Measurements/Treatment WC - Nurse 2 - General Ulcer CM Notes Start: 07/22/20 10:33 Freq: Status: Active Protocol: Activity Type Activity Date Activity User E-Sign Co-Sign Detail Recorded Client Recorded Date Recorded By Document 07/22/20 13:04 PL [id number] 07/22/20 13:06 PL Document 07/29/20 14:57 PL [id number] 07/29/20 14:58 PL Document 08/05/20 16:49 PL [id number] 08/05/20 16:50 PL 07/22/20 07/29/20 08/05/20 13:04 14:57 16:49 Wound Center Nurse 2 #2 left medial ankle -Time 10:45 10:51 10:55 -Correct Patient Yes Yes Yes -Correct Side, Site, Position Yes Yes Yes -Correct Procedure Yes Yes Yes -Procedure Performed Yes Yes Yes -Type of Procedure Debridement Debridement Debridement -Clinical Debridement Subcutaneous Subcutaneous Subcutaneous -Tissue Removed Subcutaneous Subcutaneous Subcutaneous -Post Debridement (cm) - Length 0.3 0.6 0.7 -Post Debridement (cm) - Width 0.3 0.3 0.8 -Post Debridement (cm) - Depth 0.1 0.1 0.3 -Total Square (Post) (cm) 0.09 0.18 0.56 -Area of Debridement (cm) - Length 0.3 0.6 0.7 -Area of Debridement (cm) - Width 0.3 0.3 0.8 -Total Square (Area) (cm) 0.09 0.18 0.56 -Tunneling No No No -Undermining/Tunneling No No -Circular Undermining No No No -Wound/Ulcer Outcome Not Healed Not Healed Not Healed -Ulcer Cleansing Rinsed/ Rinsed/ Rinsed/ Irrigated with Irrigated with Irrigated with Saline Saline Saline -Foul Odor after Cleansing No No No -Bioengineered Tissue No No No -Debridement - Subq, 1st 20sq cm Yes Yes Yes Pain Scale: 0-10 Numeric Is Patient Pain Free? Yes Yes Yes - Nurse 3 - General Ulcer D/C NN Start: 07/22/20 10:33 Freq: Status: Active Protocol: Activity Type Activity Date Activity User E-Sign Co-Sign Detail Recorded Client Recorded Date Recorded By Document 07/22/20 13:04 PL [id number] 07/22/20 13:06 PL Document 07/29/20 11:04 KR [id number] 07/29/20 11:04 KR Document 08/05/20 11:09 BM [id number] 08/05/20 11:10 BMF Document 08/12/20 10:00 MW [id number] 08/12/20 10:00 MW 07/22/20 07/29/20 08/05/20 13:04 11:04 11:09 Pain Scale: 0-10 Numeric Is Patient Pain Free? Yes Yes Yes Wound Care Nurse 3 #2 left medial ankle -Ulcer Cleansing Rinsed/ Rinsed/ Rinsed/ Irrigated with Irrigated with Irrigated with Saline Saline Saline -Foul Odor after Cleansing No No -Negative Pressure Wound Therapy -Primary Dressing Applied C Hydrogel ($) Other -Other Dressing Hydrogel -Primary Dressing Covered/Secured with Dry Gauze, Dry Gauze, Dry Gauze, Secured with Secured with Secured with Tape Tape Tape Treatment Response Procedure Tolerated Well Teaching: Wound Center Dressing Your Wound -Person Taught -Teaching Method -Response to teaching WC - Visit Discharge Discharge Condition Stable Stable Stable Ambulatory Status Ambulatory Ambulatory Ambulatory Transportation Private Auto Private Auto Private Auto Accompanied by Medication Reconcilliation completed & provided to patient/care provider Clinical Summary of Care Provided Yes 08/12/20 10:00 Pain Scale: 0-10 Numeric Is Patient Pain Free? Yes Wound Care Nurse 3 #2 left medial ankle -Ulcer Cleansing Rinsed/ Irrigated with Saline -Foul Odor after Cleansing No -Negative Pressure Wound Therapy N/A -Primary Dressing Applied -Other Dressing c.hydrogel -Primary Dressing Covered/Secured with Dry Gauze, Secured with Tape Treatment Response Procedure Tolerated Well Teaching: Wound Center Dressing Your Wound -Person Taught Patient -Teaching Method Discussion, Demonstration -Response to teaching Verbalize understanding WC - Visit Discharge Discharge Condition Stable Ambulatory Status Ambulatory Transportation Private Auto Accompanied by self Medication Reconcilliation completed & No provided to patient/care provider Clinical Summary of Care Provided Yes Laterality: Left - Medial malleolus Type of Debridement: Excisional debridement Anesthesia Used: 5% Lidocaine Gel Depth: Down to and including healthy tissue, in the subcutaneous layer Percentage of wound debrided: 100 Instrument Used: 5mm curette Tissue Removed: Bioburden Severity: Fat Layer Exposed Amount of bleeding with debridement: Mild Bleeding Controlled with: Compression and gauze Patient tolerated procedure well Assessment/Plan Active Problems Eustachian tube dysfunction (Chronic) Hypertension (Chronic) History of superficial thrombophlebitis (Chronic) Postphlebitic syndrome with ulcer, left (Chronic) Swelling of lower limb (Chronic) Tobacco abuse (Chronic) Emphysema of lung (Chronic) Ulcer of ankle (Chronic) 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 The patient suffers from chronic venous hypertension with inflammation and ulceration, postphlebitic syndrome with inflammation and ulceration, varicose veins with inflammation and ulceration, and umaña phlebectatica in association with a venous ulceration near the left medial malleolus. The patient is well-versed in the appropriate conservative treatment measures related to management of his venous disease. We have discussed these issues again in detail. Patient has been encouraged to elevate his lower extremities as much as possible. He is to continue sleeping on a flat mattress at night. Leg elevation is to be achieved even during daytime hours. Leg elevation is to be to heart level, or higher. Prolonged idle sitting has been discouraged. Activity has been encouraged. Weight optimization has been recommended. Compression is to be continued by means of graduated compression stockings of 20 to 30 mmHg. Routine laboratory studies were obtained recently, with results as follows: White blood count 5.0, hemoglobin 13.0, hematocrit 41.4, platelets 259,000, sodium 141, potassium 4.1, chloride 108, BUN 18, creatinine 1.33, glucose 67, calcium 9.2, total bilirubin 0.50, AST 20, ALT 21, alkaline phosphatase 94, total protein 7.2, albumin 3.6, serum prealbumin 25.7. Plan: We are to continue with conservative treatment measures with respect to the patient's chronic venous disease. These measures have been discussed with the patient in detail, and are to include leg elevation, avoidance of idle standing and sitting, graduated compression stockings, weight control measures, active lifestyle, and the use of anti-inflammatory medications as needed. He continues to wear his graduated compression stockings, knee-high length, of 20 to 30 mmHg compression. These are worn on a daily basis. We are to continue the use of collagenase Santyl, which will be applied to the ulceration daily. The patient has been instructed in the appropriate means of application. The patient complained of pain at the site of his ulceration, which is not adequately controlled by amwk-lnz-heooson analgesics. A prescription was provided for tramadol. The patient is to return in 1 week for reassessment. The patient is felt to be a candidate for endovenous laser ablation in the left lower extremity. A prior venous duplex examination, performed on 03/20/2020 revealed incompetence of the left great saphenous vein, the duplicate left great saphenous vein, and the left small saphenous vein. The patient has indicated that he wishes to pursue such superficial venous ablation. We have discussed endovenous laser ablation in detail, including its indications and risks, expected benefits, potential adverse events, etc. It is expected that the procedure will reduce the likelihood of recurrence in the future, and may well enhance the rate of healing relative to his current ulceration. The nature of the procedure and its expected recovery has been thoroughly explained. A brochure has been provided to the patient for further educational purposes. The patient has indicated his desire to proceed. The procedure will be preauthorized, and subsequently scheduled for the near future. The patient is to return in 1 week for reassessment. Influenza vaccine was not administered today. The patient is a smoker, and has been encouraged to discontinue his smoking habit. Patient stands 5 feet 8 inches tall. He weighs 160 pounds. His BMI is 24.3, which is normal. Total time: 26 minutes.
== END 2020-08-13 23:59 ==
LOC: WC 09:45
PROVIDERS: PCP Family Medicine; Referring Provider Family Medicine; Visit Provider Surgery
DX: I87.332 Chronic venous hypertension (idiopathic) with ulcer and inflammation of left lower extremity (principal); L97.322 Non-pressure chronic ulcer of left ankle with fat layer exposed; I87.2 Venous insufficiency (chronic) (peripheral); M79.89 Other specified soft tissue disorders; R60.0 Localized edema; J43.9 Emphysema, unspecified; I10 Essential (primary) hypertension; N40.0 Benign prostatic hyperplasia without lower urinary tract symptoms; F17.210 Nicotine dependence, cigarettes, uncomplicated; Z79.51 Long term (current) use of inhaled steroids; Z79.899 Other long term (current) drug therapy
CPT/HCPCS: 11042

== ENCOUNTER 2020-08-16 10:49 | Emergency (ER) | payer MEDICARE, SELFPAY ==
[2020-08-16 10:50] VITALS: BP 134/71; PULSE 89; RESP 17; TEMP 35.8; O2SAT 95; BMI 24.0
--- NOTE | 2020-08-16 11:14 | RAD_ITS ---
STUDY: X-RAY - RIGHT HAND REASON FOR EXAM: Male, 85 years old. Injury/Pain TECHNIQUE: 3 view(s) of the hand. COMPARISON: None. FINDINGS: Normal radiocarpal articulation. Normal distal radioulnar joint. Normal visualized carpal bones. There is degenerative joint disease of the scaphotrapezium / trapezoid articulation. The remainder of the carpal articulations are normal. There is degenerative arthrosis of the carpometacarpal (CMC) articulation of the thumb. Normal second through fifth carpometacarpal joints. Normal metacarpi. There is degenerative arthrosis of the metacarpophalangeal (MCP) joints. Normal interphalangeal joint of the thumb. Normal proximal and distal phalanges of the thumb. There is degenerative arthrosis of the metacarpophalangeal (MCP) joints particularly of the second and third. There is mild degenerative arthrosis of the interphalangeal joints of the second finger without evidence of erosions. Normal phalanges of the second through fifth fingers. The soft tissue structures are unremarkable. RAD/Hand Min 3 Views IMPRESSION: Degenerative joint disease of the hand and wrist, as described above. No demonstrated acute osseous injury. Electronically Signed: Bruce Alexander MD at 13:00 EDT Tel , Service support ,
[2020-08-16] MEDS: Morphine 4 MG/ML Syringe IV (11:26)
--- NOTE | 2020-08-16 11:26 | ED.DCSUM_ITS ---
- ER Visit Summary Date of Service: 08/16/20 Chief Complaint: Right hand pain and swelling History of Present Illness: The patient is a 85 M who presents with pain and swelling to his right hand that began yesterday. Patient states it is gradually gotten worse. Patient states been constant. Patient states it is worse with movement. Patient states nothing seems to help it. Patient describes the pain as aching and constant. Patient denies any paresthesias or weakness. Patient denies any trauma or injury. Patient denies any fevers or chills. Physical Examination: Vital signs are stable. Patient is afebrile. Patient is in no acute distress. Musculoskeletal exam reveals some mild tenderness and erythema over the dorsal aspect of the right wrist and hand area. There is no fluctuance. There is no evidence of any abscess. There is no ecchymosis or deformity noted. There is no tenderness or erythema over the volar or ulnar aspects of the wrist. There is no pain with short arc range of motion. Range of motion of the right wrist is limited secondary to pain however. Sensation was intact to light touch in the radial, median, and ulnar areas. Strength is 5/5 in the radial, median, and ulnar areas. Capillary refill was less than 2 seconds in all digits. Test Results: X-rays of the right hand were obtained. There are 3 views. On my interpretation, there are degenerative joint changes. There is no acute fracture or dislocation. X-rays of the right shoulder were obtained. There are 4 views. On my interpretation, there are degenerative joint changes. There is no dislocation or acute fracture. Radiologist also interpreted these x-rays and agrees. CBC shows a slight anemia with a hemoglobin of 12.5 and hematocrit 38.9. Comprehensive metabolic profile was essentially within normal limits. Emergency Department Course and Treatment: Patient was given a dose of morphine and a dose of Ancef here. Patient was given a prescription for Keflex. Patient was instructed to ice and elevate the right shoulder and right wrist. Patient was instructed to follow-up with his primary care physician in 5 to 7 days. Patient understood and was agreeable with the plan. All questions were ans wered. Disposition: Discharge home Impression: 1. Right hand cellulitis This note was generated with [employer] dictation software. It may contain incorrect words, spelling, and punctuation that were not noted in review of the chart prior to signing ED Disposition - Plan for ED Patient: Disposition: Home or Assisted Living Diagnosis: Cellulitis of right hand Instructions: ED Cellulitis Prescriptions: Cephalexin [Keflex] 500 mg PO Q6 #40 capsule Transmission Status: Pending to [facility] Hydrocodone Bitart/Apap 5-325 [[place] 5MG-325MG] 1 tablet PO Q6H PRN PRN 3 Days #10 tablet PRN Reason: Pain Transmission Status: Received by [facility] Referrals: Shoshana Ulrich MD [Primary Care Provider] - 5-7 Days
[2020-08-16 11:34] LABS: Absolute Lymphocyte Count 0.88 X10^3/uL (0.83-4.51); Absolute Neutrophil Count 5.3 X10^3/uL (2.0-7.7); Basophil# 0.03 X10^3/uL; Basophil% 0.4 % (0-1); Eosinophil# 0.11 X10^3/uL; Eosinophils% 1.6 % (0-5); Hematocrit 38.9 % (40-54); Hemoglobin 12.5 g/dL (13.0-16.5); Lymphocyte # 0.88 X10^3/ul (4.0); Lymphocyte % 12.7 % (19-41); Mean Corp Hgb Conc 32.1 g/dL (32-36); Mean Corpuscular Volume 96.5 fL (80-94); Mean Platelet Vol. 10.3 fl (6.2-12.0); Monocyte% 8.7 % (0-10); NRBC Flagged by Analyzer 0 % (0-5); Neutrophil # 5.27 X10^3/uL (2.7-7.7); Neutrophil % 76.2 % (47-70); Platelet Count 258 K/mm3 (150-450); RBC Distribution Width CV 13.9 % (11.6-14.6); RBC Distribution Width SD 49.2 fl (35.1-43.9); Red Blood Count 4.03 M/mm3 (4.6-6.2); White Blood Count 6.9 K/mm3 (4.4-11.0)
[2020-08-16] MEDS: Cefazolin 1 GM/50 ML BAG IV (11:46)
[2020-08-16 11:47] LABS: AST(SGOT) 12 U/L (15-37); Alanine Aminotransfer ALT/SGPT 15 U/L (16-61); Albumin, Serum 3.5 g/dL (3.2-5.0); Alkaline Phosphatase 87 U/L (45-117); Anion Gap 3 (5-15); BUN 20 mg/dL (7-18); BUN/Creat Ratio 15.6 RATIO (10-20); Calcium,Total 8.8 mg/dL (8.5-10.1); Chloride 107 mmol/L (98-107); Creatinine, Serum 1.28 mg/dL (0.70-1.30); EST Glomerular Filtration Rate 57 mL/min (>60); Est Glom Filt Rate - Afr Amer 69 mL/min (>60); Globulin 3.5 g/dL (2.2-4.2); Glucose 99 mg/dL (74-106); Potassium 4.2 mmol/L (3.5-5.1); Sodium Level 138 mmol/L (136-145)
--- NOTE | 2020-08-16 12:40 | RAD_ITS ---
STUDY: X-RAY - RIGHT SHOULDER REASON FOR EXAM: Male, 85 years old. Injury/Pain TECHNIQUE: 4 view(s) of the shoulder. COMPARISON: None. FINDINGS: Normal glenohumeral articulation. There is mild degenerative arthrosis of the acromioclavicular joint without inferior osseous spur formation. Normal acromion. There is an enthesopathic erosion of the humeral head. The soft tissue structures are unremarkable. There is no demonstrated fracture. Normal visualized pulmonary apex. RAD/Shoulder min 2 Views IMPRESSION: Mild degenerative changes of the right shoulder. No demonstrated acute fracture or dislocation. Electronically Signed: Bruce Alexander MD at 13:22 EDT Tel , Service support ,
== END 2020-08-16 15:05 | disposition home or self-care (01) ==
PROVIDERS: Emergency Provider Emergency Medicine; PCP Family Medicine
DX: L03.113 Cellulitis of right upper limb (principal); J44.9 Chronic obstructive pulmonary disease, unspecified; I10 Essential (primary) hypertension; M54.9 Dorsalgia, unspecified; G89.29 Other chronic pain; Z72.0 Tobacco use
CPT/HCPCS: 73030; 73130; 80053; 85025; 96365; 96375; 99283; J7050; A4216

== ENCOUNTER → 2020-08-19 12:21 | Outpatient (CLI) | payer MEDICARE, SELFPAY ==
[2020-08-19 09:41] VITALS: BMI 24.0
[2020-08-19 15:33] LABS: Uric Acid 5.3 mg/dL (3.5-7.2)
== END ==
PROVIDERS: PCP Family Medicine; Referring Provider Family Medicine; Visit Provider Family Medicine
DX: M10.9 Gout, unspecified (principal); N18.30 Chronic kidney disease, stage 3 unspecified; I83.223 Varicose veins of left lower extremity with both ulcer of ankle and inflammation; L97.322 Non-pressure chronic ulcer of left ankle with fat layer exposed
CPT/HCPCS: 11042; 36415; 84550

== ENCOUNTER 2020-09-02 09:00 | Outpatient (RCR) | payer MEDICARE, SELFPAY ==
[2020-08-14 00:45] VITALS: BP 130/75; PULSE 91; RESP 18; TEMP 36.6
[2020-08-19 09:41] VITALS: BP 157/83; PULSE 80; TEMP 36.5; BMI 24.0
--- NOTE | 2020-08-19 13:06 | PCM.WC.HP ---
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, left Status: Chronic Code(s): I87.012 - 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 (5) Swelling of lower limb Status: Chronic Code(s): M79.89 - Other specified soft tissue disorders (6) Tobacco abuse Status: Chronic Code(s): Z72.0 - Tobacco use (7) Emphysema of lung Status: Chronic Code(s): J43.9 - Emphysema, unspecified (8) Ulcer of ankle Status: Chronic Qualifiers: (9) 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 Code(s): I83.209 - Varicose veins of unspecified lower extremity with both ulcer of unspecified site and inflammation; L97.909 - Non-pressure chronic ulcer of unspecified part of unspecified lower leg with unspecified severity (10) Venous hypertension, chronic, with ulcer and inflammation Status: Chronic Qualifiers: Laterality: left Code(s): I87.339 - Chronic venous hypertension (idiopathic) with ulcer and inflammation of unspecified lower extremity (11) History of kidney stones Status: Chronic Code(s): Z87.442 - Personal history of urinary calculi (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 He was previously treated at the [facility] in 2016 relative to a venous ulceration near the left medial malleolus. He was treated by conservative means, and his ulcer was ultimately healed. The patient has presented again recently with a new ulceration near the left medial malleolus, though it is slightly more distal location. The ulceration has been present for approximately 6 weeks. A venous duplex examination performed on March 20, 2020, revealed incompetence of the left great saphenous vein, a duplicate left great saphenous vein, and the left small saphenous vein. Patient has been implementing conservative treatment measures for many years, including leg elevation, avoidance of idle standing and sitting, use of graduated compression stockings of at least 20 to 30 mmHg compression, active lifestyle, weight control measures, and the use of [id number] anti-inflammatory medications as needed. Despite these measures, the ulceration near the left medial malleolus recurred, and the patient has been urged to redouble his efforts at implementing conservative treatment measures. The patient has had several ulcerations in this area. He also has a history of superficial thrombophlebitis in the left lower extremity in the past. He suffers from chronic swelling and edema in both lower extremities, which is most prominent at the end of the day. He sleeps on a flat surface at night. Past Medical History Past Medical History: Chronic Problems Eustachian tube dysfunction (Chronic) Hypertension (Chronic) History of superficial thrombophlebitis (Chronic) Postphlebitic syndrome with ulcer, left (Chronic) Swelling of lower limb (Chronic) Tobacco abuse (Chronic) Emphysema of lung (Chronic) Ulcer of ankle (Chronic) Varicose veins with ulcer and inflammation (Chronic) Venous hypertension, chronic, with ulcer and inflammation (Chronic) History of kidney stones (Chronic) Umaña phlebectatica (Chronic) Prostatism (Chronic) Chronic venous insufficiency (Chronic) Surgical History: - - The patient underwent lithotripsy for a right kidney stone in September 2015. Left hand surgery was performed approximately 10 years ago. The patient underwent L4-5 discectomy approximately 20 years ago. Allergies/Adverse Reactions: Allergies ibuprofen [From Motrin] Allergy (Verified 08/16/20 10:49) Swelling Home Medications: Ambulatory Orders Medication Instructions Recorded Budesonide/Formoterol 160/4.5 2 puff INHALATION BID 06/02/16 [Symbicort 160/4.5 Mcg Inhaler (SP)] Amlodipine Besylate 5 mg PO DAILY 04/26/20 Cephalexin [Keflex] 500 mg PO Q6 #40 capsule 08/16/20 - Family History Maternal - - The patient's father at age of 93 with a history of Alzheimer's disease. The patient's mother at age of 61 with stomach cancer. Smoking Status: Current every day smoker Tobacco Use: Cigarettes Review of Systems Constitutional: Denies: Chills, Fever, Weight Change Eyes: Denies: Pain, Vision Change HEENT: Denies: Difficulty Hearing, Difficulty Swallowing, Sinus Congestion Cardiovascular: Denies: Chest Pain, Palpitations Respiratory: Denies: Cough, Shortness of Breath Gastrointestinal: Denies: Diarrhea, Nausea, Vomiting Genitourinary: Denies: Dysuria, Hematuria Endocrine: Denies: Heat/ Cold Intolerance, Polydipsia, Polyuria Hematologic/ Lymphatic: Denies: Easy Bruising, Easy Bleeding - Physical Exam Vital Signs Temp Pulse Resp BP 97.7 F L 80 18 157/83 H 08/19/20 09:41 08/19/20 09:41 08/14/20 00:45 08/19/20 09:41 General: Alert, Oriented x3, Cooperative, No apparent distress, Well developed, Well nourished HEENT: Atraumatic, PERRLA, EOMI, Normocephalic Oral: Moist Mucosa Neck: No JVD Lungs: Normal air movement Abdomen: Non-Distended Extremities: No clubbing, No cyanosis, No Calf Tenderness, - - Slight swelling and edema are noted in the patient's left lower extremity. Addt'l Wound Findings: The ulceration near the left medial malleolus persists. It is little changed in size or appearance. Dimensions are documented elsewhere. There is no sign of infection or cellulitis. There is a moderate amount of bioburden. The patient's right hand is noted to be swollen and reddened. He has difficulty in flexing and extending his fingers, due to the involved swelling. There are no open wounds, lacerations, ulcerations, punctures, etc. Wound Measurements and Assessment WC - Nurse 1 - General Ulcer Measurement Start: 08/19/20 09:41 Freq: Status: Active Protocol: Activity Type Activity Date Activity User E-Sign Co-Sign Detail Recorded Client Recorded Date Recorded By Document 08/19/20 09:41 AVERY [id number] 08/19/20 09:45 AVERY 08/19/20 09:41 Wound Center Nurse 1 [Ulcer Assessment] #2 left medial ankle -Current Size (cm) - Length 0.9 -Current Size (cm) - Width 1 -Current Size (cm) - Depth 0.2 -Total Square Cm 0.9 -Exudate Amt Small -Exudate Type Serosanguineous -Wound Margin Distinct, Outline Attached -Granulation Amt Medium (34-66%) -Granulation Quality Red -Necrosis Amt Medium (34-66%) -Necrotic Tissue Type Adherent Slough -Texture (Corine-wound Skin Appearance) Assessed, Scarring -Moisture (Corine-wound Skin Appearance No Abnormality, ) Assessed -Color (Corine-wound Skin Appearance) No Abnormality, Assessed -Temperature (Corine-wound Skin No Abnormality Appearance) (Pt Warm) -Tenderness on Palpation (Corine-wound No Skin Appearance) -Ulcer Cleansing Rinsed/ Irrigated with Saline -Foul Odor after Cleansing No -Anesthetic Used 4% Lidocaine Solution WC - Nurse 2 - General Ulcer CM Notes Start: 08/19/20 09:41 Freq: Status: Active Protocol: Activity Type Activity Date Activity User E-Sign Co-Sign Detail Recorded Client Recorded Date Recorded By Document 08/19/20 10:21 PL [id number] 08/19/20 10:22 PL 08/19/20 10:21 Wound Center Nurse 2 [Procedure/Treatment] -Time 09:50 -Correct Patient Yes -Correct Side, Site, Position Yes -Correct Procedure Yes -Procedure Performed Yes -Type of Procedure Debridement -Clinical Debridement Subcutaneous -Tissue Removed Subcutaneous -Post Debridement (cm) - Length 0.9 -Post Debridement (cm) - Width 1.0 -Post Debridement (cm) - Depth 0.2 -Total Square (Post) (cm) 0.90 -Area of Debridement (cm) - Length 0.9 -Area of Debridement (cm) - Width 1.0 -Total Square (Area) (cm) 0.90 -Tunneling No -Undermining/Tunneling No -Circular Undermining No -Wound/Ulcer Outcome Not Healed -Ulcer Cleansing Rinsed/ Irrigated with Saline -Foul Odor after Cleansing No -Bioengineered Tissue No -Debridement - Subq, 1st 20sq cm Yes [See Physician Procedure note for Specifics] Pain Scale: 0-10 Numeric [Pain] -Is Patient Pain Free? Yes HELEN - Nurse 3 - General Ulcer D/C NN Start: 08/19/20 09:41 Freq: Status: Active Protocol: Activity Type Activity Date Activity User E-Sign Co-Sign Detail Recorded Client Recorded Date Recorded By Document 08/19/20 10:06 MW [id number] 08/19/20 10:07 DARRELL 08/19/20 10:06 Wound Care Nurse 3 [Wound Dressing] #2 left medial ankle -Ulcer Cleansing Rinsed/ Irrigated with Saline -Foul Odor after Cleansing No -Negative Pressure Wound Therapy N/A -Primary Dressing Applied Other -Other Dressing Santyl -Primary Dressing Covered/Secured Dry Gauze, with Secured with Tape [Post Procedure Tolerated] -Treatment Response Procedure Tolerated Well Pain Scale: 0-10 Numeric [Pain] -Is Patient Pain Free? Yes Teaching: Wound Center [Wound Center Education] (Items with an * have Printed Materials Available- Please identify what is given to patient under the Teaching materials given to patient and caregiver Section. Dressing Your Wound -Person Taught Patient -Teaching Method Discussion, Demonstration -Response to teaching Verbalize understanding WC - Visit Discharge [Visit Discharge Information] -Discharge Condition Stable -Ambulatory Status Ambulatory -Transportation Private Auto -Accompanied by self -Medication Reconcilliation completed No & provided to patient/care provider -Clinical Summary of Care Provided Yes Musculoskeletal: No Muscle Wasting Neurological: Cranial nerves II-XII grossly intact, Neuro grossly intact Psych/Mental Status: Normal Affect, Appropriate, Alert and oriented to time, place, person, mood and affect Debridement Note Post-Debridement Measurements/Treatment WC - Nurse 2 - General Ulcer CM Notes Start: 08/19/20 09:41 Freq: Status: Active Protocol: Activity Type Activity Date Activity User E-Sign Co-Sign Detail Recorded Client Recorded Date Recorded By Document 08/19/20 10:21 JESSICA [id number] 08/19/20 10:22 JESSICA 08/19/20 10:21 Wound Center Nurse 2 #2 left medial ankle -Time 09:50 -Correct Patient Yes -Correct Side, Site, Position Yes -Correct Procedure Yes -Procedure Performed Yes -Type of Procedure Debridement -Clinical Debridement Subcutaneous -Tissue Removed Subcutaneous -Post Debridement (cm) - Length 0.9 -Post Debridement (cm) - Width 1.0 -Post Debridement (cm) - Depth 0.2 -Total Square (Post) (cm) 0.90 -Area of Debridement (cm) - Length 0.9 -Area of Debridement (cm) - Width 1.0 -Total Square (Area) (cm) 0.90 -Tunneling No -Undermining/Tunneling No -Circular Undermining No -Wound/Ulcer Outcome Not Healed -Ulcer Cleansing Rinsed/ Irrigated with Saline -Foul Odor after Cleansing No -Bioengineered Tissue No -Debridement - Subq, 1st 20sq cm Yes Pain Scale: 0-10 Numeric Is Patient Pain Free? Yes - Nurse 3 - General Ulcer D/C NN Start: 08/19/20 09:41 Freq: Status: Active Protocol: Activity Type Activity Date Activity User E-Sign Co-Sign Detail Recorded Client Recorded Date Recorded By Document 08/19/20 10:06 MW [id number] 08/19/20 10:07 MW 08/19/20 10:06 Wound Care Nurse 3 #2 left medial ankle -Ulcer Cleansing Rinsed/ Irrigated with Saline -Foul Odor after Cleansing No -Negative Pressure Wound Therapy N/A -Primary Dressing Applied Other -Other Dressing Santyl -Primary Dressing Covered/Secured with Dry Gauze, Secured with Tape Treatment Response Procedure Tolerated Well Pain Scale: 0-10 Numeric Is Patient Pain Free? Yes Teaching: Wound Center Dressing Your Wound -Person Taught Patient -Teaching Method Discussion, Demonstration -Response to teaching Verbalize understanding WC - Visit Discharge Discharge Condition Stable Ambulatory Status Ambulatory Transportation Private Auto Accompanied by self Medication Reconcilliation completed & No provided to patient/care provider Clinical Summary of Care Provided Yes Laterality: Left - Medial malleolus Type of Debridement: Excisional debridement Anesthesia Used: 5% Lidocaine Gel Depth: Down to and including healthy tissue, in the subcutaneous layer Percentage of wound debrided: 100 Instrument Used: 5mm curette Severity: Fat Layer Exposed Amount of bleeding with debridement: Mild Bleeding Controlled with: Compression and gauze Patient tolerated procedure well Assessment/Plan Assessment: This is an 85-year-old male with a longstanding history of chronic venous disease. The patient suffers from chronic venous hypertension with inflammation and ulceration, postphlebitic syndrome with inflammation and ulceration, varicose veins with inflammation and ulceration, and umaña phlebectatica in association with a venous ulceration near the left medial malleolus. The patient is well-versed in the appropriate conservative treatment measures related to management of his venous disease. We have discussed these issues again in detail. Patient has been encouraged to elevate his lower extremities as much as possible. He is to continue sleeping on a flat mattress at night. Leg elevation is to be achieved even during daytime hours. Leg elevation is to be to heart level, or higher. Prolonged idle sitting has been discouraged. Activity has been encouraged. Weight optimization has been recommended. Compression is to be continued by means of graduated compression stockings of 20 to 30 mmHg. The patient was seen and evaluated in the [facility] Department several days ago with regard to severe swelling and erythema involving his right hand. At the time, and again today, there is no evidence of external injury. There are no cuts, lacerations, puncture wounds, etc. There is no evidence of an insect or animal bite. There appears to be no loss of integrity of the skin involving his right hand, right fingers, etc. Additionally, the patient indicates that he is unaware of any trauma or injury to the right hand. He was provided a prescription for Keflex, which he continues to take as prescribed. He indicates that he is scheduled to be evaluated by his primary care physician later today. We have discussed the possibility that this may represent an episode of gout. However, the patient has no history of gout in the past. Laboratory tests were obtained in the Emergency Department several days ago, but a uric acid level was not obtained. We will await the impressions and recommendations of the patient's primary care physician. Plan: We are to continue with conservative treatment measures with respect to the patient's chronic venous disease. These measures have been discussed with the patient in detail, and are to include leg elevation, avoidance of idle standing and sitting, graduated compression stockings, weight control measures, active lifestyle, and the use of anti-inflammatory medications as needed. He continues to wear his graduated compression stockings, knee-high length, of 20 to 30 mmHg compression. These are worn on a daily basis. We are to continue the use of collagenase Santyl, which will be applied to the ulceration daily. The patient has been instructed in the appropriate means of application. The patient complained of pain at the site of his ulceration, which is not adequately controlled by [id number] analgesics. A prescription was recently provided for tramadol. The patient is to return in 2 weeks for reassessment. The patient is felt to be a candidate for endovenous laser ablation in the left lower extremity. A prior venous duplex examination, performed on 03/20/2020 revealed incompetence of the left great saphenous vein, the duplicate left great saphenous vein, and the left small saphenous vein. The patient has indicated that he wishes to pursue such superficial venous ablation. We have discussed endovenous laser ablation in detail, including its indications and risks, expected benefits, potential adverse events, etc. It is expected that the procedure will reduce the likelihood of recurrence in the future, and may well enhance the rate of healing relative to his current ulceration. The nature of the procedure and its expected recovery has been thoroughly explained. A brochure has been provided to the patient for further educational purposes. The patient has indicated his desire to proceed. The procedure will be preauthorized, and subsequently scheduled for the near future. The patient is to return in 2 weeks for reassessment. Influenza vaccine was not administered today. The patient is a smoker, and has been encouraged to discontinue his smoking habit. Patient stands 5 feet 8 inches tall. He weighs 160 pounds. His BMI is 24.3, which is normal. Total time: 28 minutes.
[2020-09-02 09:09] VITALS: BP 126/70; PULSE 86; RESP 16; TEMP 36.7; BMI 24.0
--- NOTE | 2020-09-02 09:39 | HP.PCM_ITS ---
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, left Status: Chronic Code(s): I87.012 - 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 (5) Swelling of lower limb Status: Chronic Code(s): M79.89 - Other specified soft tissue disorders (6) Tobacco abuse Status: Chronic Code(s): Z72.0 - Tobacco use (7) Emphysema of lung Status: Chronic Code(s): J43.9 - Emphysema, unspecified (8) Ulcer of ankle Status: Chronic Qualifiers: (9) 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 Code(s): I83.209 - Varicose veins of unspecified lower extremity with both ulcer of unspecified site and inflammation; L97.909 - Non- pressure chronic ulcer of unspecified part of unspecified lower leg with unspecified severity (10) Venous hypertension, chronic, with ulcer and inflammation Status: Chronic Qualifiers: Laterality: left Code(s): I87.339 - Chronic venous hypertension (idiopathic) with ulcer and inflammation of unspecified lower extremity (11) History of kidney stones Status: Chronic Code(s): Z87.442 - Personal history of urinary calculi (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 He was previously treated at the [facility] in 2016 relative to a venous ulceration near the left medial malleolus. He was treated by conservative means, and his ulcer was ultimately healed. The patient has presented again recently with a new ulceration near the left medial malleolus, though it is slightly more distal location. The ulceration has been present for approximately 6 weeks. A venous duplex examination performed on March 20, 2020, revealed incompetence of the left great saphenous vein, a duplicate left great saphenous vein, and the left small saphenous vein. Patient has been implementing conservative treatment measures for many years, including leg elevation, avoidance of idle standing and sitting, use of graduated compression stockings of at least 20 to 30 mmHg compression, active lifestyle, weight control measures, and the use of [id number] anti-inflammatory medications as needed. Despite these measures, the ulceration near the left medial malleolus recurred, and the patien t has been urged to redouble his efforts at implementing conservative treatment measures. The patient has had several ulcerations in this area. He also has a history of superficial thrombophlebitis in the left lower extremity in the past. He suffers from chronic swelling and edema in both lower extremities, which is most prominent at the end of the day. He sleeps on a flat surface at night. Past Medical History Past Medical History: Chronic Problems Eustachian tube dysfunction (Chronic) Hypertension (Chronic) History of superficial thrombophlebitis (Chronic) Postphlebitic syndrome with ulcer, left (Chronic) Swelling of lower limb (Chronic) Tobacco abuse (Chronic) Emphysema of lung (Chronic) Ulcer of ankle (Chronic) Varicose veins with ulcer and inflammation (Chronic) Venous hypertension, chronic, with ulcer and inflammation (Chronic) History of kidney stones (Chronic) Umaña phlebectatica (Chronic) Prostatism (Chronic) Chronic venous insufficiency (Chronic) Surgical History: - - The patient underwent lithotripsy for a right kidney stone in September 2015. Left hand surgery was performed approximately 10 years ago. The patient underwent L4-5 discectomy approximately 20 years ago. Allergies/Adverse Reactions: Allergies ibuprofen [From Motrin] Allergy (Verified 08/16/20 10:49) Swelling Home Medications: Ambulatory Orders Medication Instructions Recorded Budesonide/Formoterol 160/4.5 2 puff INHALATION BID 06/02/16 [Symbicort 160/4.5 Mcg Inhaler (SP)] Amlodipine Besylate 5 mg PO DAILY 04/26/20 Cephalexin [Keflex] 500 mg PO Q6 #40 capsule 08/16/20 - Family History Maternal - - The patient's father at age of 93 with a history of Alzheimer's disease. The patient's mother at age of 61 with stomach cancer. Smoking Status: Current every day smoker Tobacco Use: Cigarettes Review of Systems Constitutional: Denies: Chills, Fever, Weight Change Eyes: Denies: Pain, Vision Change HEENT: Denies: Difficulty Hearing, Difficulty Swallowing, Sinus Congestion Cardiovascular: Denies: Chest Pain, Palpitations Respiratory: Denies: Cough, Shortness of Breath Gastrointestinal: Denies: Diarrhea, Nausea, Vomiting Genitourinary: Denies: Dysuria, Hematuria Endocrine: Denies: Heat/ Cold Intolerance, Polydipsia, Polyuria Hematologic/ Lymphatic: Denies: Easy Bruising, Easy Bleeding - Physical Exam Vital Signs Temp Pulse Resp BP 98.0 F 86 16 126/70 H 09/02/20 09:09 09/02/20 09:09 09/02/20 09:09 09/02/20 09:09 General: Alert, Oriented x3, Cooperative, No apparent distress, Well developed, Well nourished HEENT: Atraumatic, PERRLA, EOMI, Normocephalic Oral: Moist Mucosa Neck: No JVD Lungs: Normal air movement Abdomen: Non-Distended Extremities: No clubbing, No cyanosis, No edema, No Calf Tenderness, - - Skin changes of hyperpigmentation and lipodermatosclerosis persist in the patient's left lower extremity. The ulceration near the left medial malleolus persists as well, but is smaller in size. There is a moderate amount of bioburden. Addt'l Wound Findings: The patient's right hand is no longer swollen and erythematous, as had been noted on a previous visit. Wound Measurements and Assessment WC - Nurse 1 - General Ulcer Measurement Start: 08/19/20 09:41 Freq: Status: Active Protocol: Activity Type Activity Date Activity User E-Sign Co-Sign Detail Recorded Client Recorded Date Recorded By Document 09/02/20 09:09 MW [id number] 09/02/20 09:13 MW 09/02/20 09:09 Wound Center Nurse 1 [Ulcer Assessment] #2 left medial ankle -Combined with other wound No -Current Size (cm) - Length 1.3 -Current Size (cm) - Width 1.0 -Current Size (cm) - Depth 0.1 -Total Square Cm 1.30 -Photo Taken No -Epithelialization None Present -Tunneling No -Undermining/Tunneling No -Circular Undermining No -Exudate Amt Small -Exudate Type Serosanguineous -Wound Margin Flat & Intact -Granulation Amt None Present (0 %) -Granulation Quality N/A -Slough/Fibrin Yes -Necrosis Amt Large (67-100%) -Necrotic Tissue Type Adherent Slough -Structure Exposed N/A -Texture (Corine-wound Skin Appearance) Assessed, Scarring -Moisture (Corine-wound Skin Appearance No Abnormality, ) Assessed -Color (Corine-wound Skin Appearance) Assessed, Hemosiderin Staining -Temperature (Corine-wound Skin No Abnormality Appearance) (Pt Warm) -Tenderness on Palpation (Corine-wound Yes Skin Appearance) -Ulcer Cleansing Rinsed/ Irrigated with Saline -Foul Odor after Cleansing No -Anesthetic Used 5% Lidocaine Gel [Edema Assessment] -Lower Limb Edema Present No WC - Nurse 3 - General Ulcer D/C NN Start: 08/19/20 09:41 Freq: Status: Active Protocol: Activity Type Activity Date Activity User E-Sign Co-Sign Detail Recorded Client Recorded Date Recorded By Document 09/02/20 09:33 MW [id number] 09/02/20 09:34 MW 09/02/20 09:33 Wound Care Nurse 3 [Wound Dressing] #2 left medial ankle -Ulcer Cleansing Rinsed/ Irrigated with Saline -Foul Odor after Cleansing No -Negative Pressure Wound Therapy N/A -Other Dressing Santyl -Primary Dressing Covered/Secured Dry Gauze, with Secured with Tape [Post Procedure Tolerated] -Treatment Response Procedure Tolerated Well Pain Scale: 0-10 Numeric [Pain] -Is Patient Pain Free? Yes Teaching: Wound Center [Wound Center Education] (Items with an * have Printed Materials Available- Please identify what is given to patient under the Teaching materials given to patient and caregiver Section. Dressing Your Wound -Person Taught Patient -Teaching Method Discussion -Response to teaching Verbalize understanding WC - Visit Discharge [Visit Discharge Information] -Discharge Condition Stable -Ambulatory Status Ambulatory -Transportation Private Auto -Accompanied by self -Medication Reconcilliation completed No & provided to patient/care provider -Clinical Summary of Care Provided Yes Musculoskeletal: No Muscle Wasting Neurological: Cranial nerves II-XII grossly intact, Neuro grossly intact Psych/Mental Status: Normal Affect, Appropriate, Alert and oriented to time, place, person, mood and affect Debridement Note Post-Debridement Measurements/Treatment WC - Nurse 2 - General Ulcer CM Notes Start: 08/19/20 09:41 Freq: Status: Active Protocol: Activity Type Activity Date Activity User E-Sign Co-Sign Detail Recorded Client Recorded Date Recorded By Document 08/19/20 10:21 PL [id number] 08/19/20 10:22 PL 08/19/20 10:21 Wound Center Nurse 2 #2 left medial ankle -Time 09:50 -Correct Patient Yes -Correct Side, Site, Position Yes -Correct Procedure Yes -Procedure Performed Yes -Type of Procedure Debridement -Clinical Debridement Subcutaneous -Tissue Removed Subcutaneous -Post Debridement (cm) - Length 0.9 -Post Debridement (cm) - Width 1.0 -Post Debridement (cm) - Depth 0.2 -Total Square (Post) (cm) 0.90 -Area of Debridement (cm) - Length 0.9 -Area of Debridement (cm) - Width 1.0 -Total Square (Area) (cm) 0.90 -Tunneling No -Undermining/Tunneling No -Circular Undermining No -Wound/Ulcer Outcome Not Healed -Ulcer Cleansing Rinsed/ Irrigated with Saline -Foul Odor after Cleansing No -Bioengineered Tissue No -Debridement - Subq, 1st 20sq cm Yes Pain Scale: 0-10 Numeric Is Patient Pain Free? Yes - Nurse 3 - General Ulcer D/C NN Start: 08/19/20 09:41 Freq: Status: Active Protocol: Activity Type Activity Date Activity User E-Sign Co-Sign Detail Recorded Client Recorded Date Recorded By Document 08/19/20 10:06 MW [id number] 08/19/20 10:07 MW Document 09/02/20 09:33 MW [id number] 09/02/20 09:34 MW 08/19/20 09/02/20 10:06 09:33 Wound Care Nurse 3 #2 left medial ankle -Ulcer Cleansing Rinsed/ Rinsed/ Irrigated with Irrigated with Saline Saline -Foul Odor after Cleansing No No -Negative Pressure Wound Therapy N/A N/A -Primary Dressing Applied Other -Other Dressing Santyl Santyl -Primary Dressing Covered/Secured with Dry Gauze, Dry Gauze, Secured with Secured with Tape Tape Treatment Response Procedure Procedure Tolerated Well Tolerated Well Pain Scale: 0-10 Numeric Is Patient Pain Free? Yes Yes Teaching: Wound Center Dressing Your Wound -Person Taught Patient Patient -Teaching Method Discussion, Discussion Demonstration -Response to teaching Verbalize Verbalize understanding understanding WC - Visit Discharge Discharge Condition Stable Stable Ambulatory Status Ambulatory Ambulatory Transportation Private Auto Private Auto Accompanied by self self Medication Reconcilliation completed & No No provided to patient/care provider Clinical Summary of Care Provided Yes Yes Laterality: Left - Medial malleolus Type of Debridement: Excisional debridement Anesthesia Used: 5% Lidocaine Gel Depth: Down to and including healthy tissue, in the subcutaneous layer Percentage of wound debrided: 100 Instrument Used: 3mm curette Tissue Removed: Bioburden Severity: Fat Layer Exposed Amount of bleeding with debridement: Mild Bleeding Controlled with: Compression and gauze Patient tolerated procedure well Assessment/Plan Active Problems Eustachian tube dysfunction (Chronic) Hypertension (Chronic) History of superficial thrombophlebitis (Chronic) Postphlebitic syndrome with ulcer, left (Chronic) Swelling of lower limb (Chronic) Tobacco abuse (Chronic) Emphysema of lung (Chronic) Ulcer of ankle (Chronic) 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 The patient suffers from chronic venous hypertension with inflammation and ulceration, postphlebitic syndrome with inflammation and ul ceration, varicose veins with inflammation and ulceration, and umaña phlebectatica in association with a venous ulceration near the left medial malleolus. The patient is well-versed in the appropriate conservative treatment measures related to management of his venous disease. We have discussed these issues again in detail. Patient has been encouraged to elevate his lower extremities as much as possible. He is to continue sleeping on a flat mattress at night. Leg elevation is to be achieved even during daytime hours. Leg elevation is to be to heart level, or higher. Prolonged idle sitting has been discouraged. Activity has been encouraged. Weight optimization has been recommended. Compression is to be continued by means of graduated compression stockings of 20 to 30 mmHg. The patient was seen and evaluated in the [facility] Emergency Department recently with regard to severe swelling and erythema involving his right hand. At the time, there was no evidence of external injury. There were no cuts, lacerations, puncture wounds, etc. There was no evidence of an insect or animal bite. There appeared to be no loss of integrity of the skin involving his right hand, right fingers, etc. Additionally, the patient indicateed that he is unaware of any trauma or injury to the right hand. He had been provided a prescription for Keflex. We discussed the possibility that this may represent an episode of gout, and this diagnosis appears to have been confirmed. Plan: We are to continue with conservative treatment measures with respect to the patient's chronic venous disease. These measures have been discussed with the patient in detail, and are to include leg elevation, avoidance of idle standing and sitting, graduated compression stockings, weight control measures, active lifestyle, and the use of anti-inflammatory medications as needed. He continues to wear his graduated compression stockings, knee-high length, of 20 to 30 mmHg compression. These are worn on a daily basis. We are to continue the use of collagenase Santyl, which will be applied to the ulceration daily. The patient has been instructed in the appropriate means of application. The patient is to return in 2 weeks for reassessment. The patient is a candidate for endovenous laser ablation in the left lower extremity. A prior venous duplex examination, performed on 03/20/2020 revealed incompetence of the left great saphenous vein, the duplicate left great saphenous vein, and the left small saphenous vein. The patient has indicated that he wishes to pursue such superficial venous ablation. We have discussed endovenous laser ablation in detail, including its indications and risks, expected benefits, potential adverse events, etc. It is expected that the procedure will reduce the likelihood of recurrence in the future, and may well enhance the rate of healing relative to his current ulceration. The nature of the procedure and its expecte d recovery have been thoroughly explained. A brochure has been provided to the patient for further educational purposes. The patient has indicated his desire to proceed. The procedure has been preauthorized, and is scheduled to be performed on September 18, 2020. Patient is to return in 2 weeks for reassessment. The swelling and erythema in the patient's right hand have completely resolved, and a diagnosis of gout has been confirmed. The patient is now on the appropriate medication, as prescribed by his primary care physician. Influenza vaccine was not administered today. The patient is a smoker, and has been encouraged to discontinue his smoking habit. Patient stands 5 feet 8 inches tall. He weighs 160 pounds. His BMI is 24.3, which is normal. Total time: 25 minutes.
== END 2020-09-12 23:59 ==
LOC: WC 09:00
PROVIDERS: PCP Family Medicine; Referring Provider Family Medicine; Visit Provider Surgery
DX: I83.223 Varicose veins of left lower extremity with both ulcer of ankle and inflammation (principal); I87.032 Postthrombotic syndrome with ulcer and inflammation of left lower extremity; L97.322 Non-pressure chronic ulcer of left ankle with fat layer exposed; I87.2 Venous insufficiency (chronic) (peripheral); M79.89 Other specified soft tissue disorders; H69.80 Other specified disorders of Eustachian tube, unspecified ear; J43.9 Emphysema, unspecified; I10 Essential (primary) hypertension; M10.9 Gout, unspecified; N40.0 Benign prostatic hyperplasia without lower urinary tract symptoms; F17.210 Nicotine dependence, cigarettes, uncomplicated; Z79.51 Long term (current) use of inhaled steroids; Z79.899 Other long term (current) drug therapy
CPT/HCPCS: 11042

== ENCOUNTER → 2020-09-17 10:09 | Outpatient (CLI) | payer MEDICARE, SELFPAY ==
[2020-09-02 09:09] VITALS: BMI 24.0
[2020-09-16 08:57] VITALS: BMI 24.0
--- NOTE | 2020-09-17 10:13 | MRI_ITS ---
STUDY: MRI LUMBAR SPINE WITHOUT CONTRAST REASON FOR EXAM: Male, 85 years old. RIGHT BUTTOCK PAIN TECHNIQUE: Standardized fat and water weighted pulse sequences were obtained in the sagittal and axial planes. COMPARISON: None FINDINGS: T10-T11: (Sagittal only). Normal endplates. Mild disc space height narrowing. Normal central canal and intervertebral neural foramina. T11-T12: Schmorl''s nodes in the vertebral endplates. Mild disc space height narrowing. Normal central canal and bilateral intervertebral neural foramina. T12-L1: MODIC type I degenerative vertebral marrow edema dorsal right side of the vertebral endplates. Pronounced right-sided disc space height narrowing. Small right posterior cephalad disc extrusion (series 203, image 11). This is towards the right intervertebral neural foramen but no displacement of the right T12 nerve. Normal central canal and left lateral recess. Mild stenosis of the right lateral recesses. Moderate right degenerative facet arthropathy and mild to moderate left degenerative facet arthropathy. Mild stenosis of the right intervertebral neural foramen. Normal left intervertebral neural foramen. Normal lumbar lordosis. There is no substantial scoliosis. Normal conus medullaris that terminates at the lower T12 vertebral body level. L1-2: Bridging anterior marginal spurs. Pronounced disc space height narrowing. MODIC type II degenerative vertebral marrow fatty changes underneath the vertebral endplates. Mild central canal stenosis with an AP canal diameter of 9 mm. Normal bilateral lateral recesses. Moderate right degenerative facet arthropathy. Mild to moderate left degenerative facet arthropathy. Moderate stenosis of the right intervertebral neural foramen. Normal left intervertebral neural foramen. Left renal cyst is visible at this level. L2-3: Schmorl''s node in the anterior L3 superior endplate. Normal L2 inferior endplate. Moderate disc space height narrowing. Pronounced flattening central canal stenosis with an AP canal diameter of 5.3 mm secondary to developmentally short pedicles and prominent dorsal epidural lipomatosis. Moderate stenosis of the right lateral recesses. Normal left lateral recesses. Moderate right degenerative facet hypertrophy. Mild to moderate left degenerative facet arthropathy. Moderate stenosis of the right intervertebral neural foramen. Normal left intervertebral neural foramen. L3-4: Pronounced disc space height narrowing. Mild central canal stenosis with an AP canal diameter of 8.7 mm. Normal bilateral lateral recesses. Moderate left degenerative facet arthropathy. Mild right degenerative facet arthropathy. Mild stenosis of the right intervertebral neural foramen. Normal left intervertebral neural foramen. L4-5: Pronounced disc space height narrowing with mild MODIC type I degenerative vertebral marrow edema underneath the vertebral endplates. Left L4 hemilaminectomy defect. Mild central canal stenosis with an AP canal diameter of 10 mm. Normal bilateral lateral recesses. Moderate bilateral degenerative facet arthropathy. Moderate stenosis of the left intervertebral neural foramen. Normal right intervertebral neural foramen. L5-S1: Mild MODIC type II degenerative vertebral marrow fatty changes underneath the vertebral endplates. Moderate disc space height narrowing. Tapered termination of the thecal sac at the S1 body. Moderately pronounced narrowing central canal due to tapering termination of the thecal sac surrounded by epidural lipomatosis. Mild to moderate bilateral degenerative facet arthropathy. Mild stenosis of the right intervertebral neural foramen. Normal left intervertebral neural foramen. Normal visualized sacral ala. Normal visualized paraspinous soft tissue structures. MRI/Spine Lumbar (Routine) IMPRESSION: 1. 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 2. Pronounced flattening central canal stenosis at L2-L3 disc space level with an AP canal diameter of 5.3 mm, moderate stenosis of the right lateral recess and moderate stenosis of the right intervertebral neural foramen. 3. Mild central canal stenosis at L1-L2 disc level with an AP canal diameter of 9 mm. 4. Mild central canal stenosis at L3-L4 disc space level with an AP canal diameter of 8.7 mm. 5. Mild central canal stenosis at L4-L5 disc space level with an AP canal diameter of 10 mm despite left L4 hemilaminectomy defect. Additionally, pronounced L4-L5 disc space height narrowing with mild MODIC type I degenerative vertebral marrow edema underneath the vertebral endplates. 6. Moderate pronounced narrowing of the central canal at L5-S1 disc space level due to tapering termination of the thecal sac surrounded by epidural lipomatosis. The AP canal diameter is 6 mm. Electronically Signed: Chito Porter MD at 14:53 EDT , Service support ,
== END ==
PROVIDERS: PCP Family Medicine; Referring Provider Family Medicine; Visit Provider Family Medicine
DX: M51.16 Intervertebral disc disorders with radiculopathy, lumbar region (principal)
CPT/HCPCS: 72148

== ENCOUNTER 2020-09-18 09:34 | Day surgery (SDC) | payer MEDICARE, SELFPAY ==
[2020-08-19 09:41] VITALS: BMI 24.0
--- NOTE | 2020-09-15 09:53 | EKG12_ITS ---
Test Reason : PRE OP Blood Pressure : / mmHG Vent. 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
[2020-09-16 08:57] VITALS: BMI 24.0
[2020-09-18] MEDS: Cefazolin 2 GM in 0.9% Normal Saline 100 ML IV (07:16)
[2020-09-18] MEDS: Enoxaparin 30 MG/0.3 ML Syringe SC (10:50)
[2020-09-18] MEDS: Lactated Ringers 1,000 ML 100 ML IV (10:51)
[2020-09-18 10:52] VITALS: BP 159/86; PULSE 59; RESP 16; TEMP 36.9; O2SAT 96; BMI 23.8
--- NOTE | 2020-09-18 13:55 | EX.PCM.DISCH ---
Discharge Instructions Diet Discharge Diet: No restrictions Activity Discharge Activity: May Not Drive May shower in (days): 2 Weight Bearing Status: Weight bearing as tolerated Lifting Restrictions: Do not [id number] pounds Keep extremity elevated above heart level: Left Leg Dressing / Incision Call your doctor if you observe: Using more than one pad per hour, Shortness of breath, Fainting spells, Chest pain, Prolonged hiccupping and Uncontrolled pain Suture Line Care: Avoid Pulling/Pushing Change Dressing in: 2 days Remove Dressing in: 2 days Cleanse incision/area with: Keep Dressing Clean & Dry Follow Up Care Please Follow Up With: Guanako Hinojosa MD When: Next week Test Results: Test results from this visit will be discussed in further detail at your follow-up appointment, if applicable. Discharge Plan Admission Attending Provider: Guanako Hinojosa Primary Care Provider: Shoshana Ulrich Discharge Orders/Prescriptions Prescriptions: New oxycodone-acetaminophen [Percocet] 5-325 mg tablet 1 - 2 tab PO Q8H PRN (Reason: pain) 4 Days Qty: 14 RF: 0 Continued budesonide-formoterol [Symbicort] 1 INHALER inhaler 2 puff inhalation BID RF: 0 amlodipine 5 MG tablet 5 mg PO DAILY RF: 0 multivitamin Tablet 1 tab PO DAILY RF: 0 omeprazole 20 mg Capsule,Delayed Release(Dr/Ec) 20 mg PO PRN PRN (Reason: Heartburn) RF: 0 colchicine 0.6 mg Capsule 0.6 mg PO DAILY PRN (Reason: GOUT) RF: 0 Referrals / Follow Up: Shoshana Ulrich MD [Primary Care Provider] - Disposition Disposition (needs filled in before D/C Order can be placed): Home, self care
[2020-09-18 14:00] VITALS: BP 129/84; BP 159/86; PULSE 73; RESP 18; TEMP 36.3; O2SAT 93
[2020-09-18 14:15] VITALS: BP 131/77; BP 159/86; PULSE 65; RESP 18; O2SAT 94
[2020-09-18 14:30] VITALS: BP 146/83; BP 159/86; PULSE 63; RESP 18; TEMP 36.6; O2SAT 96
[2020-09-18] MEDS: oxyCODONE 5 MG Tablet PO (15:14)
[2020-09-18 15:35] VITALS: BP 123/73; BP 159/86; PULSE 63; RESP 16; TEMP 36.2; O2SAT 91
--- NOTE | 2020-09-19 13:28 | PCM.OPRPT ---
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 Endovenous laser ablation of the left great saphenous vein 2. Endovenous laser ablation of the duplicate left great saphenous vein 3. Endovenous laser ablation of the left small saphenous vein Description of Surgical Findings:: As above Type of Anesthesia: General/Regional and Tumescent Anesthesiologist: Jesus Mendoza Specimen's removed: None Drains: None Estimated Blood Loss (mL): minimal Description of Procedure: This is an 85-year-old male who presented with chronic venous insufficiency and severe symptoms of chronic venous disease. The patient has a venous ulceration near the left medial malleolus. He has been treated for several months by means of conservative treatment measures. Despite such measures, his ulcer has failed to heal. A venous duplex examination has been performed, revealing segmental valvular incompetence involving his left great saphenous vein, a duplicate left great saphenous vein, and the left small saphenous vein. The implications of this finding have been discussed with the patient in detail. The options of management were fully explained. The indications and risks of endovenous laser ablation of the left great saphenous vein, duplicate left great saphenous vein, and the left small saphenous vein were discussed with the patient in detail. The appropriate preprocedure consent process was undertaken. The patient underwent ultrasound marking of the left great saphenous vein, duplicate left great saphenous vein, and the left small saphenous vein preoperatively. He was then brought to the operating room suite, placed supine upon the operating table, where general anesthesia was administered by the anesthesia staff. The patient's left lower extremity and left groin were prepped and draped in the appropriate sterile manner. The patient was placed in reverse Trendelenburg position. Ultrasonography was used to image the left great saphenous vein in the distal calf, just above the left medial malleolus. The micropuncture technique was used to access the left great saphenous vein percutaneously at this level. In this manner, a 0.018 inch guidewire was advanced intraluminally into the left great saphenous vein, and was visualized by ultrasonography. A micropuncture sheath was advanced over the guidewire. The 0.018 inch guidewire was exchanged for a 0.035 inch guidewire, which was then advanced intraluminally to a level just distal to the left saphenofemoral junction, as confirmed by ultrasound imaging. A long 4 Australian sheath was advanced over the guidewire, and its tip was positioned approximately 2-1/2 to 3 cm distal to the left saphenofemoral junction. Attention was then directed to the incompetent duplicate left great saphenous vein. The duplicate left great saphenous vein was seen to extend from the left mid calf to the left groin. Using ultrasound imaging and the micropuncture technique, the duplicate left great saphenous vein was accessed in the left mid calf. In this manner, a 0.018 inch guidewire was introduced intraluminally, and visualized by ultrasonography. A micropuncture sheath was advanced over the guidewire and into position intraluminally. The 0.018 inch guidewire was exchanged for a 0.035 inch guidewire, which was then advanced proximally into the proximal portion of the duplicate left great saphenous vein. The long inner dilator of the sheath was then advanced over the guidewire and into position intraluminally within the duplicate left great saphenous vein. The guidewire was then removed, and the inner dilator was left in place, capped, for subsequent access purposes. Attention was then directed to the incompetent left small saphenous vein. To enhance exposure, the left lower extremity was placed in an externally rotated position with the left knee flexed. Using ultrasound imaging and the micropuncture technique, a micropuncture sheath was introduced intraluminally near the inferior border of the left gastrocnemius muscle, and was left in place, capped, for subsequent access purposes. Attention was then directed to the 4 Australian sheath which had been previously placed intraluminally within the left great saphenous vein. Perivenous tumescent anesthesia was injected from the 4 Australian sheath exit site up to the tip of the sheath near the left saphenofemoral junction. This was performed segmentally using ultrasound imaging. The AngioDynamics laser fiber was then introduced into the 4 Australian sheath and coupled appropriately. Ultrasonography was used to confirm that the tip of the laser fiber was positioned within the left great saphenous vein approximately 2-1/2 to 3 cm distal to the left saphenofemoral junction. The patient was placed in Trendelenburg position and the laser fiber was activated. The AngioDynamics laser was slowly withdrawn at a constant rate throughout the length of the left great saphenous vein, thereby ablating the left great saphenous vein segmentally. The energy applied was approximately 60 to 80 J/cm. Following the laser ablation, the laser fiber and sheath were removed, and manual pressure was briefly applied to the percutaneous access site to achieve hemostasis. Attention was then directed to the long inner dilator which had been previously placed intraluminally within the duplicate left great saphenous vein. The 0.035 inch guidewire was introduced into into the inner dilator, and the dilator was removed, leaving the guidewire in place. The inner dilator was then coupled with the long 4 Australian sheath. The sheath and dilator tandem were then advanced over the guidewire and into place intraluminally within the duplicate left great saphenous vein. Perivenous tumescent anesthesia was injected from the 4 Australian sheath exit site up to the tip of the sheath near the left groin. This was performed segmentally using ultrasound imaging. The AngioDynamics laser fiber was then introduced into the 4 Australian sheath and coupled appropriately. Ultrasonography was used to confirm that the tip of the laser fiber was positioned within the duplicate left great saphenous vein with its tip approximately 2-1/2 to 3 cm distal to its junction with the deep venous system. The patient was placed in Trendelenburg position and the laser fiber was activated. It should be noted that the duplicate left great saphenous vein was positioned outside of the saphenous sheath, and quite superficially positioned under the skin. Ample tumescent anesthesia had been instilled, in an effort to depress the duplicate left great saphenous vein beneath the skin level. However, due to its superficial nature, the pullback of the laser fiber was conducted slightly more quickly than ordinary. The AngioDynamics laser fiber was withdrawn at a constant rate, thereby ablating the duplicate left great saphenous vein segmentally. The energy applied was approximately 40 to 60 J/cm. Following the laser ablation, the laser fiber and sheath were removed, and manual pressure was briefly applied to the percutaneous access site to achieve hemostasis. Attention was then directed to the micropuncture sheath which had been previously placed intraluminally within the left small saphenous vein. A 0.035 inch guidewire was introduced intraluminally into the left small saphenous vein, with its tip positioned within the proximal small saphenous vein. The long 4 Australian sheath was then advanced over the guidewire and into position intraluminally. Perivenous tumescent anesthesia was injected from the 4 Australian sheath exit site up to the tip of the sheath. This was performed segmentally using ultrasound imaging. The AngioDynamics laser fiber was then introduced into the 4 Australian sheath and coupled appropriately. Ultrasonography was used to confirm that the tip of the laser fiber was positioned within the proximal left small saphenous vein, several centimeters distal to its junction with the deep venous system, and remaining within the superficial portion of the left small saphenous vein. The patient was placed in Trendelenburg position and the laser fiber was activated. The AngioDynamics laser was slowly withdrawn at a constant rate throughout the length of the left small saphenous vein, thereby ablating the left small saphenous vein segmentally. The energy applied was approximately 60 to 80 J/cm. Following the laser ablation, the laser fiber and sheath were removed, manual pressure was briefly applied to the percutaneous access site to achieve hemostasis. After assuring satisfactory hemostasis, the access sites were approximated using Cavilon and Steri-Strips. Dry sterile gauze dressings were applied over each of the access sites, and the leg was wrapped from the base of the toes to the upper thigh with Kerlix, followed by Yahir wrap. The blood loss for the procedure was minimal. The sponge, needle, and instrument counts at the end of the procedure were correct. Patient tolerated the procedure well and was transported from the operating room to the postanesthesia care unit in stable condition. The amount of tumescent anesthesia utilized, number of joules applied, and treatment times were recorded separately. Complications None Admit VTE Documentation VTE Present on Admission: No VTE Mechan Device Prophylaxis: SCD's (Right lower extremity) VTE Pharm Prophylaxis ordered?: Yes
== END 2020-09-18 15:52 | disposition home or self-care (01) ==
LOC: SDC 09:39 → AC 09:40
PROVIDERS: PCP Family Medicine; Referring Provider Surgery; Visit Provider Surgery
PROC: (CPT 36478; principal; 2020-09-18 11:15)
DX: I83.223 Varicose veins of left lower extremity with both ulcer of ankle and inflammation (principal); L97.329 Non-pressure chronic ulcer of left ankle with unspecified severity; M79.605 Pain in left leg; M79.89 Other specified soft tissue disorders; J43.9 Emphysema, unspecified; I10 Essential (primary) hypertension; F17.200 Nicotine dependence, unspecified, uncomplicated; Z79.51 Long term (current) use of inhaled steroids; Z79.899 Other long term (current) drug therapy; Z86.72 Personal history of thrombophlebitis
CPT/HCPCS: 01930; 36478; 36479; 93005; 93971; J7040; J7120; J2405

== ENCOUNTER → 2020-09-22 13:27 | Outpatient (CLI) | payer MEDICARE, SELFPAY ==
[2020-09-18 10:52] VITALS: BMI 23.8
--- NOTE | 2020-09-22 13:30 | VDLE_ITS ---
Reason For Study: Pain, Swelling Procedure LEFT This is a venous duplex using B-mode, color CFV is compressible, spontaneous, phasic, flow and spectral Doppler. competent, and demonstrates normal Exam performed in department. augmentation. A preliminary report was called and/or faxed FV is compressible, spontaneous, phasic, to Ashish. competent and demonstrates normal augmentation. POP V is compressible, spontaneous, phasic, competent and demonstrates normal augmentation. T/P Trunk is compressible. PTV is compressible. LT PerV is compressible. Lt GSV, Duplicate GSV, SSV occluded s/p EVLA 09/18/2020. Dilated noncompressible grade and center marker noted 18 cm above medial malleolus, not extending into deep system. VL/Venous Duplex US, Unilateral Interpretation Summary Deep veins of the left lower extremity are patent and compressible segmentally. There is no evidence of left lower extremity deep vein thrombosis. Valvular competence appears intac t within the proximal deep venous system on the left . The left great saphenous vein, duplicate great saphenous vein, and small saphenous vein are occluded, consistent with a recent endothermal ablatio n procedure. There appears to be thrombosis of a grade and center marker vein in the left calf, located 18 cent imeters proximal to the left medial malleolus, which does not extend into the deep venous system. Ordering Physician: Guanako Hinojosa Referring Physician: Miedel. Anna Performed By: Em Martinez RVT
== END ==
PROVIDERS: PCP Family Medicine; Referring Provider Surgery; Visit Provider Surgery
DX: M79.89 Other specified soft tissue disorders (principal); M79.605 Pain in left leg; I83.10 Varicose veins of unspecified lower extremity with inflammation
CPT/HCPCS: 93971

== ENCOUNTER → 2020-09-26 08:59 | Outpatient (CLI) | payer MEDICARE, SELFPAY ==
[2020-09-25 14:10] VITALS: BMI 23.8
--- NOTE | 2020-09-26 09:01 | VDLE_ITS ---
Reason For Study: LLE SWELLING Procedure LEFT This is a venous duplex using B-mode, color CFV is compressible, spontaneous, phasic, flow and spectral Doppler. competent, and demonstrates normal augmentation. FV is compressible, spontaneous, phasic, competent and demonstrates normal augmentation. POP V is compressible, spontaneous, phasic, competent and demonstrates normal augmentation. T/P Trunk is compressible. PTV is compressible. LT PerV is compressible. GSV & SSV occluded S/P EVLA. VL/Venous Duplex US, Unilateral Interpretation Summary Deep veins of the left lower extremity are patent and compressible segmentally. There is no evidence of left lower extremity deep vein thrombosis. Valvular competence appears intac t within the proximal deep venous system on the left . The left great saphenous vein and small saphen ous vein are occluded, consistent with a recent endothermal ablation procedure. Ordering Physician: Guanako Hinojosa Referring Physician: Shoshana Ulrich Performed By: Rebekah Quan, RDCS, RVT
== END ==
PROVIDERS: PCP Family Medicine; Referring Provider Surgery; Visit Provider Surgery
DX: M79.89 Other specified soft tissue disorders (principal); I83.10 Varicose veins of unspecified lower extremity with inflammation
CPT/HCPCS: 93971

== ENCOUNTER 2020-10-07 09:00 | Outpatient (RCR) | payer MEDICARE, SELFPAY ==
[2020-09-13 00:42] VITALS: BP 126/70; PULSE 86; RESP 16; TEMP 36.7
[2020-09-16 08:57] VITALS: BP 138/85; PULSE 75; RESP 18; TEMP 36.4; BMI 24.0
--- NOTE | 2020-09-16 13:27 | PCM.WC.HP ---
History of Present Illness Date of Service: 09/16/20 Chief Complaint: Ulceration, left medial malleolus History of Wound: This is an 85-year-old male with a longstanding history of chronic venous disease. He was previously treated at the [facility] in 2016 relative to a venous ulceration near the left medial malleolus. He was treated by conservative means, and his ulcer was ultimately healed. The patient has presented again recently with a new ulceration near the left medial malleolus, though it is slightly more distal location. The ulceration has been present for approximately 6 weeks. A venous duplex examination performed on March 20, 2020, revealed incompetence of the left great saphenous vein, a duplicate left great saphenous vein, and the left small saphenous vein. Patient has been implementing conservative treatment measures for many years, including leg elevation, avoidance of idle standing and sitting, use of graduated compression stockings of at least 20 to 30 mmHg compression, active lifestyle, weight control measures, and the use of [id number] anti-inflammatory medications as needed. Despite these measures, the ulceration near the left medial malleolus recurred, and the patient has been urged to redouble his efforts at implementing conservative treatment measures. The patient has had several ulcerations in this area. He also has a history of superficial thrombophlebitis in the left lower extremity in the past. He suffers from chronic swelling and edema in both lower extremities, which is most prominent at the end of the day. He sleeps on a flat surface at night. [facility]LY [facility] Medical History (Updated 09/16/20 @ 13:[address] Guanako Hinojosa MD) Alcohol abuse Cancer CPAP (continuous positive airway pressure) dependence Emphysema, unspecified Heartburn History of open leg wound Hx of gout Hypertension Injury of back Restless legs Shortness of breath on exertion Smoker Wears glasses Wears hearing aid in both ears Home Medications budesonide-formoterol [Symbicort 160/4.5 Mcg Inhaler (SP)] 2 puff INHALATION BID 06/02/16 [History Last Taken 06/08/16 06:00 2 PUFF] amlodipine 5 mg PO DAILY 04/26/20 [History Last Taken Unknown] colchicine 0.6 mg PO DAILY PRN 09/11/20 [History Last Taken Unknown] multivitamin [Multi-Daily] 1 tab PO DAILY 09/11/20 [History Last Taken Unknown] omeprazole 20 mg PO PRN PRN 09/11/20 [History Last Taken Unknown] Allergy/AdvReac Type Severity Reaction Status Date / Time ibuprofen [From Motrin] Allergy Swelling Verified 09/11/20 14:01 Surgical History (Updated 09/11/20 @ 14:22 by Monica Cohcran) History of cystoscopy History of esophagogastroduodenoscopy (EGD) History of parotidectomy Hx of basal cell carcinoma excision Hx of decompressive lumbar laminectomy Hx of finger joint replacement Hx of myringotomy Social History (Updated 09/16/20 @ 13:[address] Guanako Hinojosa MD) household members: spouse Smoking Status: Current every day smoker ROS Constitutional Constitutional: Denies anorexia, change in weight, chills, fever(s), malaise or night sweats Eyes Eyes: Denies change in vision or double vision ENT HEENT: Denies dysphagia, epistaxis, headache(s), hearing loss, sinus pain, sinus pressure or sore throat Cardiovascular Cardiovascular: Denies chest pain or palpitations Respiratory/Chest Respiratory/Chest: Reports hemoptysis; Denies pain on inspiration, shortness of breath at rest or wheezing Gastrointestinal Gastrointestinal: Denies abdominal pain, hematemesis, hematochezia or nausea Genitourinary Genitourinary: Denies dysuria or hematuria Neurologic Neurologic: Denies headache(s), loss of vision or seizures Vital Signs Vital Signs Vital Signs: 09/16/20 08:57 Temperature 97.5 F L Temperature Source Temporal Pulse Rate 75 Respiratory Rate 18 Blood Pressure 138/85 H Blood Pressure Mean 102 Blood Pressure Source Monitor Blood Pressure Position Sitting Blood Pressure Location Left Arm Oxygen Delivery Method Room Air Physical Exam Const alert, oriented x3, no apparent distress, average body habitus and well nourished General Appearance: cooperative, well kempt and well developed Orientation / Consciousness: awake, oriented to person, oriented to place and oriented to time HEENT normocephalic, head/scalp atraumatic, EAC's normal and moist oral mucous membranes Head and Scalp: normocephalic and atraumatic Face and Sinus: normal facial exam Nose: external nose normal and nares normal External Ear: external ears normal Mouth: lips normal Eyes PERRL and EOMs intact bilaterally General Eye: normal appearance of both eyes Sclera: sclera normal Neck full ROM, supple and no JVD General: normal visual inspection and trachea midline Chest inspection of chest normal Resp normal respiratory effort, normal air movement and no use of accessory muscles Effort and Inspection: able to speak in complete sentences and symmetric chest movement Cardio regular rate and regular rhythm GI normal to inspection, nondistended, normoactive bowel sounds, non-tender and non-distended Palpation: soft Extremity no calf tenderness Extremity Narrative: Skin changes of hyperpigmentation and lipodermatosclerosis persist in the patient's distal left lower extremity. The ulceration near the left medial malleolus persists, but continues to decrease in size. Dimensions are documented elsewhere. There is a small amount of bioburden. There is no sign of infection or cellulitis. General Extremity: normal exam except as noted; Negative for clubbing or cyanosis Neuro oriented x3, CN's II-XII intact bilaterally and moves all extremities Speech: speech normal Psych mental status grossly normal Appearance: grossly normal and appropriate Speech: normal speech Thought Content: normal thought content Debridement Note Debridement Note Post-Debridement Measurements and Additional Note: Post-Debridement Measurements/Treatment WC - Nurse 2 - General Ulcer CM Notes Start: 09/16/20 08:57 Freq: Status: Active Protocol: Activity Type Activity Date Activity User E-Sign Co-Sign Detail Recorded Client Recorded Date Recorded By Document 09/16/20 09:17 JESSICA [id number] 09/16/20 09:18 PL 09/16/20 09:17 Wound Center Nurse 2 #2 left medial ankle -Time 09:06 -Correct Patient Yes -Correct Side, Site, Position Yes -Correct Procedure Yes -Procedure Performed Yes -Type of Procedure Debridement -Clinical Debridement Subcutaneous -Tissue Removed Subcutaneous -Post Debridement (cm) - Length 0.9 -Post Debridement (cm) - Width 0.7 -Post Debridement (cm) - Depth 0.1 -Total Square (Post) (cm) 0.63 -Area of Debridement (cm) - Length 0.9 -Area of Debridement (cm) - Width 0.7 -Total Square (Area) (cm) 0.63 -Tunneling No -Undermining/Tunneling No -Circular Undermining No -Wound/Ulcer Outcome Healed- Surgical Closure -Foul Odor after Cleansing No -Bioengineered Tissue No -Bleeding Controlled with Pressure -Treatment Response Procedure Tolerated Well -Debridement - Subq, 1st 20sq cm Yes Pain Scale: 0-10 Numeric Is Patient Pain Free? Yes - Nurse 3 - General Ulcer D/C NN Start: 09/16/20 08:57 Freq: Status: Active Protocol: Activity Type Activity Date Activity User E-Sign Co-Sign Detail Recorded Client Recorded Date Recorded By Document 09/16/20 09:14 [facility] [id number] 09/16/20 09:15 [facility] 09/16/20 09:14 Wound Care Nurse 3 #2 left medial ankle -Ulcer Cleansing Rinsed/ Irrigated with Saline -Foul Odor after Cleansing No -Primary Dressing Applied Other -Other Dressing santyl -Primary Dressing Covered/Secured with Dry Gauze, Secured with Tape Treatment Response Procedure Tolerated Well Pain Scale: 0-10 Numeric Is Patient Pain Free? Yes WC - Visit Discharge Discharge Condition Stable Ambulatory Status Ambulatory Transportation Private Auto Wound debrided: Left medial malleolus Laterality: Left Type of Debridement: Excisional debridement Anesthesia Used: 5% Lidocaine Gel Depth: Down to and including healthy tissue and in the subcutaneous layer Percentage of wound debrided: 100 Instrument Used: 3mm curette Tissue Removed: Bioburden Amount of bleeding with debridement: Mild Bleeding Controlled with: Compression and gauze Patient tolerated procedure: Patient tolerated procedure well Lab / Micro Data Attestation: I reviewed the patient's lab results. Assessment & Plan Assessment/Plan (1) Chronic venous insufficiency: Status: Chronic (2) Venous hypertension, chronic, with ulcer and inflammation: Status: Chronic Code(s): I87.339 - Chronic venous hypertension (idiopathic) with ulcer and inflammation of unspecified lower extremity Qualifiers: Laterality: left Qualified Code(s): L97.929 - Non-pressure chronic ulcer of unspecified part of left lower leg with unspecified severity (3) Varicose veins with ulcer and inflammation: Status: Chronic Code(s): I83.209 - Varicose veins of unspecified lower extremity with both ulcer of unspecified site and inflammation; L97.909 - Non-pressure chronic ulcer of unspecified part of unspecified lower leg with unspecified severity (4) Ulcer of ankle: Status: Chronic (5) History of superficial thrombophlebitis: Status: Chronic (6) Swelling of lower limb: Status: Chronic Code(s): M79.89 - Other specified soft tissue disorders (7) Postphlebitic syndrome with ulcer, left: Status: Chronic Code(s): I87.012 - 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 (8) Umaña phlebectatica: Status: Chronic (9) Emphysema of lung: Status: Chronic Code(s): J43.9 - Emphysema, unspecified (10) Tobacco abuse: Status: Chronic Code(s): Z72.0 - Tobacco use (11) Prostatism: Status: Chronic Code(s): N40.0 - Benign prostatic hyperplasia without lower urinary tract symptoms (12) History of kidney stones: Status: Chronic Code(s): Z87.442 - Personal history of urinary calculi (13) Eustachian tube dysfunction: Status: Chronic Code(s): H69.80 - Other specified disorders of Eustachian tube, unspecified ear (14) Hypertension: Status: Chronic Code(s): I10 - Essential (primary) hypertension (15) Gout: Status: Acute Code(s): M10.9 - Gout, unspecified Plan: We are to continue with conservative treatment measures with respect to the patient's chronic venous disease. These measures have been discussed with the patient in detail, and are to include leg elevation, avoidance of idle standing and sitting, graduated compression stockings, weight control measures, active lifestyle, and the use of anti-inflammatory medications as needed. He continues to wear his graduated compression stockings, knee-high length, of 20 to 30 mmHg compression. These are worn on a daily basis. We are to continue the use of collagenase Santyl, which will be applied to the ulceration daily. The patient has been instructed in the appropriate means of application. The patient is to return in 2 weeks for reassessment. The patient is a candidate for endovenous laser ablation in the left lower extremity. A prior venous duplex examination, performed on 03/20/2020 revealed incompetence of the left great saphenous vein, the duplicate left great saphenous vein, and the left small saphenous vein. The patient has indicated that he wishes to pursue such superficial venous ablation. We have discussed endovenous laser ablation in detail, including its indications and risks, expected benefits, potential adverse events, etc. It is expected that the procedure will reduce the likelihood of recurrence in the future, and may well enhance the rate of healing relative to his current ulceration. The nature of the procedure and its expected recovery have been thoroughly explained. A brochure has been provided to the patient for further educational purposes. The patient has indicated his desire to proceed. The procedure has been preauthorized, and is scheduled to be performed on September 18, 2020. Patient is to return in 1 week for reassessment. The swelling and erythema in the patient's right hand have completely resolved, and a diagnosis of gout has been confirmed. The patient is now on the appropriate medication, as prescribed by his primary care physician. Influenza vaccine was not administered today. The patient is a smoker, and has been encouraged to discontinue his smoking habit. Patient stands 5 feet 8 inches tall. He weighs 160 pounds. His BMI is 24.3, which is normal. The recent implementation of a new electronic medical record system may result in errors, omissions, or inaccuracies in this document. Total time: 28 minutes.
--- NOTE | 2020-09-17 14:09 | PCM.WC.HP ---
History of Present Illness Date of Service: 09/17/20 Chief Complaint: Ulceration, left medial malleolus History of Wound: This is an 85-year-old male with a longstanding history of chronic venous disease. He was previously treated at the [facility] in 2016 relative to a venous ulceration near the left medial malleolus. He was treated by conservative means, and his ulcer was ultimately healed. The patient has presented again recently with a new ulceration near the left medial malleolus, though it is slightly more distal location. The ulceration has been present for approximately 6 weeks. A venous duplex examination performed on March 20, 2020, revealed incompetence of the left great saphenous vein, a duplicate left great saphenous vein, and the left small saphenous vein. Patient has been implementing conservative treatment measures for many years, including leg elevation, avoidance of idle standing and sitting, use of graduated compression stockings of at least 20 to 30 mmHg compression, active lifestyle, weight control measures, and the use of [id number] anti-inflammatory medications as needed. Despite these measures, the ulceration near the left medial malleolus recurred, and the patient has been urged to redouble his efforts at implementing conservative treatment measures. The patient has had several ulcerations in this area. He also has a history of superficial thrombophlebitis in the left lower extremity in the past. He suffers from chronic swelling and edema in both lower extremities, which is most prominent at the end of the day. He sleeps on a flat surface at night. [facility] Medical History (Updated 09/16/20 @ 13:[address] Guanako Hinojosa MD) Alcohol abuse Cancer CPAP (continuous positive airway pressure) dependence Emphysema, unspecified Heartburn History of open leg wound Hx of gout Hypertension Injury of back Restless legs Shortness of breath on exertion Smoker Wears glasses Wears hearing aid in both ears Home Medications budesonide-formoterol [Symbicort 160/4.5 Mcg Inhaler (SP)] 2 puff INHALATION BID 06/02/16 [History Last Taken 06/08/16 06:00 2 PUFF] amlodipine 5 mg PO DAILY 04/26/20 [History Last Taken Unknown] colchicine 0.6 mg PO DAILY PRN 09/11/20 [History Last Taken Unknown] multivitamin [Multi-Daily] 1 tab PO DAILY 09/11/20 [History Last Taken Unknown] omeprazole 20 mg PO PRN PRN 09/11/20 [History Last Taken Unknown] Allergy/AdvReac Type Severity Reaction Status Date / Time ibuprofen [From Motrin] Allergy Swelling Verified 09/11/20 14:01 Surgical History (Updated 09/11/20 @ 14:22 by Monica Cochran) History of cystoscopy History of esophagogastroduodenoscopy (EGD) History of parotidectomy Hx of basal cell carcinoma excision Hx of decompressive lumbar laminectomy Hx of finger joint replacement Hx of myringotomy Social History (Updated 09/16/20 @ 13:[address] Guanako Hinojosa MD) household members: spouse Smoking Status: Current every day smoker ROS Constitutional Constitutional: Denies anorexia, change in weight, chills, fever(s), malaise or night sweats Eyes Eyes: Denies change in vision or double vision ENT HEENT: Denies dysphagia, epistaxis, headache(s), hearing loss, sinus pain, sinus pressure or sore throat Cardiovascular Cardiovascular: Denies chest pain or palpitations Respiratory/Chest Respiratory/Chest: Reports hemoptysis; Denies pain on inspiration, shortness of breath at rest or wheezing Gastrointestinal Gastrointestinal: Denies abdominal pain, hematemesis, hematochezia or nausea Genitourinary Genitourinary: Denies dysuria or hematuria Neurologic Neurologic: Denies headache(s), loss of vision or seizures Physical Exam Const alert, oriented x3, no apparent distress, average body habitus and well nourished General Appearance: cooperative, well kempt and well developed Orientation / Consciousness: awake, oriented to person, oriented to place and oriented to time HEENT normocephalic, head/scalp atraumatic, EAC's normal and moist oral mucous membranes Eyes PERRL and EOMs intact bilaterally General Eye: normal appearance of both eyes Sclera: sclera normal Neck full ROM, supple and no JVD General: normal visual inspection and trachea midline Chest inspection of chest normal Resp normal respiratory effort, normal air movement and no use of accessory muscles Effort and Inspection: able to speak in complete sentences and symmetric chest movement Cardio regular rate and regular rhythm GI normal to inspection, nondistended, normoactive bowel sounds, non-tender and non-distended Palpation: soft Extremity no calf tenderness General Extremity: normal exam except as noted; Negative for clubbing or cyanosis Neuro oriented x3, CN's II-XII intact bilaterally and moves all extremities Speech: speech normal Psych mental status grossly normal Appearance: grossly normal and appropriate Speech: normal speech Thought Content: normal thought content Debridement Note Debridement Note Post-Debridement Measurements and Additional Note: Post-Debridement Measurements/Treatment - Nurse 2 - General Ulcer CM Notes Start: 09/16/20 08:57 Freq: Status: Active Protocol: Activity Type Activity Date Activity User E-Sign Co-Sign Detail Recorded Client Recorded Date Recorded By Document 09/16/20 09:17 [id number] 09/16/20 09:18 PL 09/16/20 09:17 W[facility] Center Nurse 2 #2 left medial ankle -Time 09:06 -Correct Patient Yes -Correct Side, Site, Position Yes -Correct Procedure Yes -Procedure Performed Yes -Type of Procedure Debridement -Clinical Debridement Subcutaneous -Tissue Removed Subcutaneous -Post Debridement (cm) - Length 0.9 -Post Debridement (cm) - Width 0.7 -Post Debridement (cm) - Depth 0.1 -Total Square (Post) (cm) 0.63 -Area of Debridement (cm) - Length 0.9 -Area of Debridement (cm) - Width 0.7 -Total Square (Area) (cm) 0.63 -Tunneling No -Undermining/Tunneling No -Circular Undermining No -Wound/Ulcer Outcome Healed- Surgical Closure -Foul Odor after Cleansing No -Bioengineered Tissue No -Bleeding Controlled with Pressure -Treatment Response Procedure Tolerated Well -Debridement - Subq, 1st 20sq cm Yes Pain Scale: 0-10 Numeric Is Patient Pain Free? Yes - Nurse 3 - General Ulcer D/C NN Start: 09/16/20 08:57 Freq: Status: Active Protocol: Activity Type Activity Date Activity User E-Sign Co-Sign Detail Recorded Client Recorded Date Recorded By Document 09/16/20 09:14 [facility] [id number] 09/16/20 09:15 [facility] 09/16/20 09:14 Wound Care Nurse 3 #2 left medial ankle -Ulcer Cleansing Rinsed/ Irrigated with Saline -Foul Odor after Cleansing No -Primary Dressing Applied Other -Other Dressing santyl -Primary Dressing Covered/Secured with Dry Gauze, Secured with Tape Treatment Response Procedure Tolerated Well Pain Scale: 0-10 Numeric Is Patient Pain Free? Yes - Visit Discharge Discharge Condition Stable Ambulatory Status Ambulatory Transportation Private Auto Assessment & Plan Assessment/Plan (1) Chronic venous insufficiency: Status: Chronic (2) Venous hypertension, chronic, with ulcer and inflammation: Status: Chronic Code(s): I87.339 - Chronic venous hypertension (idiopathic) with ulcer and inflammation of unspecified lower extremity Qualifiers: Laterality: left Qualified Code(s): L97.929 - Non-pressure chronic ulcer of unspecified part of left lower leg with unspecified severity (3) Varicose veins with ulcer and inflammation: Status: Chronic Code(s): I83.209 - Varicose veins of unspecified lower extremity with both ulcer of unspecified site and inflammation; L97.909 - Non-pressure chronic ulcer of unspecified part of unspecified lower leg with unspecified severity (4) Ulcer of ankle: Status: Chronic (5) History of superficial thrombophlebitis: Status: Chronic (6) Swelling of lower limb: Status: Chronic Code(s): M79.89 - Other specified soft tissue disorders (7) Postphlebitic syndrome with ulcer, left: Status: Chronic Code(s): I87.012 - 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 (8) Umaña phlebectatica: Status: Chronic (9) Emphysema of lung: Status: Chronic Code(s): J43.9 - Emphysema, unspecified (10) Tobacco abuse: Status: Chronic Code(s): Z72.0 - Tobacco use (11) Prostatism: Status: Chronic Code(s): N40.0 - Benign prostatic hyperplasia without lower urinary tract symptoms (12) History of kidney stones: Status: Chronic Code(s): Z87.442 - Personal history of urinary calculi (13) Eustachian tube dysfunction: Status: Chronic Code(s): H69.80 - Other specified disorders of Eustachian tube, unspecified ear (14) Hypertension: Status: Chronic Code(s): I10 - Essential (primary) hypertension (15) Gout: Status: Acute Code(s): M10.9 - Gout, unspecified Plan: We are to continue with conservative treatment measures with respect to the patient's chronic venous disease. These measures have been discussed with the patient in detail, and are to include leg elevation, avoidance of idle standing and sitting, graduated compression stockings, weight control measures, active lifestyle, and the use of anti-inflammatory medications as needed. He continues to wear his graduated compression stockings, knee-high length, of 20 to 30 mmHg compression. These are worn on a daily basis. We are to continue the use of collagenase Santyl, which will be applied to the ulceration daily. The patient has been instructed in the appropriate means of application. The patient is to return in 2 weeks for reassessment. The patient is a candidate for endovenous laser ablation in the left lower extremity. A prior venous duplex examination, performed on 03/20/2020 revealed incompetence of the left great saphenous vein, the duplicate left great saphenous vein, and the left small saphenous vein. The patient has indicated that he wishes to pursue such superficial venous ablation. We have discussed endovenous laser ablation in detail, including its indications and risks, expected benefits, potential adverse events, etc. It is expected that the procedure will reduce the likelihood of recurrence in the future, and may well enhance the rate of healing relative to his current ulceration. The nature of the procedure and its expected recovery have been thoroughly explained. A brochure has been provided to the patient for further educational purposes. The patient has indicated his desire to proceed. The procedure has been preauthorized, and is scheduled to be performed on September 18, 2020. Patient is to return in 1 week for reassessment. The swelling and erythema in the patient's right hand have completely resolved, and a diagnosis of gout has been confirmed. The patient is now on the appropriate medication, as prescribed by his primary care physician. Influenza vaccine was not administered today. The patient is a smoker, and has been encouraged to discontinue his smoking habit. Patient stands 5 feet 8 inches tall. He weighs 160 pounds. His BMI is 24.3, which is normal. The recent implementation of a new electronic medical record system may result in errors, omissions, or inaccuracies in this document. Total time: 28 minutes. I have re-examined the patient. There are no clinical changes since date of exam.
[2020-09-23 09:16] VITALS: BP 153/75; PULSE 76; RESP 18; TEMP 36.3; BMI 24.0
--- NOTE | 2020-09-23 13:37 | HP.PCM_ITS ---
History of Present Illness Date of Service: 09/23/20 Chief Complaint: Ulceration, left medial malleolus History of Wound: This is an 85-year-old male with a longstanding history of chronic venous disease. He was previously treated at the [facility] in 2016 relative to a venous ulceration near the left medial malleolus. He was treated by conservative means, and his ulcer was ultimately healed. The patient has presented again recently with a new ulceration near the left medial malleolus, though it is slightly more distal location. The ulceration has been present for approximately 6 weeks. A venous duplex examination performed on March 20, 2020, revealed incompetence of the left great saphenous vein, a duplicate left great saphenous vein, and the left small saphenous vein. Patient has been implementing conservative treatment measures for many years, including leg elevation, avoidance of idle standing and sitting, use of graduated compression stockings of at least 20 to 30 mmHg compression, active lifestyle, weight control measures, and the use of [id number] anti-inflammatory medications as needed. Despite these measures, the ulceration near the left medial malleolus recurred, and the patient has been urged to redouble his efforts at implementing conservative treatment measures. The patient has had several ulcerations in this area. He also has a history of superficial thrombophlebitis in the left lower extremity in the past. He suffers from chronic swelling and edema in both lower extremities, which is most prominent at the end of the day. He sleeps on a flat surface at night. REPLACED BY [facility] Medical History (Updated 09/16/20 @ 13:[address] Guanako Hinojosa MD) Alcohol abuse Cancer CPAP (continuous positive airway pressure) dependence Emphysema, unspecified Heartburn History of open leg wound Hx of gout Hypertension Injury of back Restless legs Shortness of breath on exertion Smoker Wears glasses Wears hearing aid in both ears Home Medications budesonide-formoterol [Symbicort] 2 puff INHALATION BID 06/02/16 [History Last Taken 06/08/16 06:00 2 PUFF] amlodipine 5 mg PO DAILY 04/26/20 [History Last Taken Unknown] colchicine 0.6 mg PO DAILY PRN 09/11/20 [History Last Taken Unknown] multivitamin 1 tab PO DAILY 09/11/20 [History Last Taken Unknown] omeprazole 20 mg PO PRN PRN 09/11/20 [History Last Taken Unknown] oxycodone-acetaminophen [Percocet] 1 - 2 tab PO Q8H PRN 4 Days #14 tab 09/18/20 [Rx Last Taken Unknown] Allergy/AdvReac Type Severity Reaction Status Date / Time ibuprofen [From Motrin] Allergy Swelling Verified 09/11/20 14:01 Surgical History (Updated 09/11/20 @ 14:22 by Monica Cochran) History of cystoscopy History of esophagogastroduodenoscopy (EGD) History of parotidectomy Hx of basal cell carcinoma excision Hx of decompressive lumbar laminectomy Hx of finger joint replacement Hx of myringotomy Social History (Updated 09/16/20 @ 13:[address] Guanako Hinojosa MD) household members: spouse Smoking Status: Current every day smoker Vital Signs Vital Signs Vital Signs: 09/23/20 09:16 Temperature 97.4 F L Temperature Source Oral Pulse Rate 76 Respiratory Rate 18 Blood Pressure 153/75 H Blood Pressure Mean 101 Blood Pressure Source Monitor Blood Pressure Position Sitting Blood Pressure Location Right Arm Oxygen Delivery Method Room Air Physical Exam Const alert, oriented x3, no apparent distress and well nourished General Appearance: cooperative and well developed HEENT normocephalic and EAC's normal Head and Scalp: normal to inspection, normocephalic and atraumatic External Ear: external ears normal Eyes PERRL and EOMs intact bilaterally General Eye: normal appearance of both eyes Neck supple and no JVD Resp normal respiratory effort and no use of accessory muscles Effort and Inspection: able to speak in complete sentences GI Palpation: soft Extremity no calf tenderness Extremity Narrative: The left lower extremity demonstrates mild swelling and edema. There is a rather diffuse, faint erythema, which is thought to be inflammatory in nature. The percutaneous access sites appear to be healing appropriately. Slight bruising is noted in the left upper medial thigh. General Extremity: Negative for clubbing or cyanosis Skin Wound Narrative: The ulceration near the left medial malleolus persists. There is no sign of infection or cellulitis. Dimensions are documented elsewhere. There is a small amount of bioburden. Neuro oriented x3, CN's II-XII intact bilaterally and moves all extremities Speech: speech normal Psych Appearance: grossly normal, appropriate and well kempt Activity / Motor Behavior: appropriate eye contact Speech: normal speech Thought Process: normal thought process Thought Content: normal thought content Attention / Concentration: attention grossly intact Debridement Note Debridement Note Post-Debridement Measurements and Additional Note: Post-Debridement Measurements/Treatment - Nurse 1 - General Ulcer Assessment Start: 09/16/20 08:57 Freq: Status: Active Protocol: DENISE Activity Type Activity Date Activity User E-Sign Co-Sign Detail Recorded Client Recorded Date Recorded By Document 09/16/20 08:57 [facility] [id number] 09/16/20 09:01 [facility] Document 09/23/20 09:16 [id number] 09/23/20 09:28 09/16/20 09/23/20 08:57 09:16 WC - Today's Visit Information Type of service Follow-up Visit Follow-up Visit (Physician/COMPOUND MIXER (Physician/COMPOUND MIXER ) ) Arrival Mode Ambulatory Ambulatory Transfer Assistance None None Accompanied by self Patient Identification Verified (Name & Yes Yes ) Patient Requires Transmission-Based No Precautions Safety Precautions NA Height and Weight Body Mass Index (BMI) 24.0 24.0 BMI Classification Normal Normal Vital Signs Temperature (97.8 F-99.1 F) 97.5 F L 97.4 F L Temperature Source Temporal Oral Pulse Rate (60-100) 75 76 Pulse Location Monitor Monitor Respiratory Rate (12-18) 18 18 Respiratory rate source Observation Observation Oxygen Delivery Method Room Air Room Air Blood Pressure (90/60-120/80) 138/85 H 153/75 H Blood Pressure Mean 102 101 Source Monitor Monitor Position Sitting Sitting Blood Pressure Location Left Arm Right Arm History Since Last Visit- (Skip if this is Patient's initial visit) Have you changed medications since your No No last visit? Any new allergies or adverse reactions No No Had a fall/change in ADL's that may No No increase risk of falls Signs or symptoms of abuse and/or No No neglect since last visit Have you been in the hospital since your No No last visit? Has dressing in place as prescribed Yes Yes Has compression in place as prescribed N/A Yes Has offloadiing in place as prescribed N/A N/A Experienced any changes in pain level or No No management Left Footwear Regular Shoe Regular Shoe Right Footwear Regular Shoe Regular Shoe Pain Scale: 0-10 Numeric Is Patient Pain Free? Yes Yes HELEN - Nurse 1 - General Ulcer Measurement Start: 09/16/20 08:57 Freq: Status: Active Protocol: Activity Type Activity Date Activity User E-Sign Co-Sign Detail Recorded Client Recorded Date Recorded By Document 09/16/20 08:57 BM [id number] 09/16/20 09:01 BMF Document 09/23/20 09:16 MW [id number] 09/23/20 09:28 MW 09/16/20 09/23/20 08:57 09:16 Wound Center Nurse 1 #2 left medial ankle -Combined with other wound No No -Current Size (cm) - Length 0.9 1.0 -Current Size (cm) - Width 0.7 1.0 -Current Size (cm) - Depth 0.1 0.1 -Total Square Cm 0.63 1.00 -Photo Taken No No -Epithelialization None Present None Present -Tunneling No No -Undermining/Tunneling No No -Circular Undermining No No -Exudate Amt Small Small -Exudate Type Serous Serosanguineous -Wound Margin Distinct, Flat & Intact Outline Attached -Granulation Amt None Present (0 None Present (0 %) %) -Granulation Quality N/A -Slough/Fibrin Yes Yes -Necrosis Amt Large (67-100%) Large (67-100%) -Necrotic Tissue Type Adherent Slough Adherent Slough -Structure Exposed N/A -Texture (Corine-wound Skin Appearance) Assessed, Assessed, Scarring Localized Edema -Moisture (Corine-wound Skin Appearance) Assessed No Abnormality, Assessed -Color (Corine-wound Skin Appearance) Assessed, No Abnormality, Erythema Assessed -Temperature (Corine-wound Skin No Abnormality No Abnormality Appearance) (Pt Warm) (Pt Warm) -Tenderness on Palpation (Corine-wound No Yes Skin Appearance) -Ulcer Cleansing Rinsed/ Rinsed/ Irrigated with Irrigated with Saline Saline -Foul Odor after Cleansing No No -Anesthetic Used 5% Lidocaine 5% Lidocaine Gel Gel Lower Limb Edema Present Yes Left Calf (cm) 39.0 Left Ankle (cm) 22.5 WC - Nurse 2 - General Ulcer CM Notes Start: 09/16/20 08:57 Freq: Status: Active Protocol: Activity Type Activity Date Activity User E-Sign Co-Sign Detail Recorded Client Recorded Date Recorded By Document 09/16/20 09:17 PL [id number] 09/16/20 09:18 PL Document 09/23/20 12:35 PL [id number] 05/11/21 12:37 PL 09/16/20 09/23/20 09:17 12:35 Wound Center Nurse 2 #2 left medial ankle -Time 09:06 09:35 -Correct Patient Yes Yes -Correct Side, Site, Position Yes Yes -Correct Procedure Yes Yes -Procedure Performed Yes Yes -Type of Procedure Debridement Debridement -Clinical Debridement Subcutaneous Subcutaneous -Tissue Removed Subcutaneous Subcutaneous -Post Debridement (cm) - Length 0.9 1 -Post Debridement (cm) - Width 0.7 1 -Post Debridement (cm) - Depth 0.1 0.1 -Total Square (Post) (cm) 0.63 1 -Area of Debridement (cm) - Length 0.9 1 -Area of Debridement (cm) - Width 0.7 1 -Total Square (Area) (cm) 0.63 1 -Tunneling No No -Undermining/Tunneling No No -Circular Undermining No No -Wound/Ulcer Outcome Healed- Not Healed Surgical Closure -Ulcer Cleansing Rinsed/ Irrigated with Saline -Foul Odor after Cleansing No No -Bioengineered Tissue No No -Bleeding Controlled with Pressure -Treatment Response Procedure Tolerated Well -Debridement - Subq, 1st 20sq cm Yes Yes Pain Scale: 0-10 Numeric Is Patient Pain Free? Yes Yes WC - Nurse 3 - General Ulcer D/C NN Start: 09/16/20 08:57 Freq: Status: Active Protocol: Activity Type Activity Date Activity User E-Sign Co-Sign Detail Recorded Client Recorded Date Recorded By Document 09/16/20 09:14 [facility] [id number] 09/16/20 09:15 [facility] Document 09/23/20 09:56 MW [id number] 09/23/20 09:58 MW 09/16/20 09/23/20 09:14 09:56 Wound Care Nurse 3 #2 left medial ankle -Ulcer Cleansing Rinsed/ Rinsed/ Irrigated with Irrigated with Saline Saline -Foul Odor after Cleansing No No -Negative Pressure Wound Therapy N/A -Primary Dressing Applied Other -Other Dressing santyl santyl -Primary Dressing Covered/Secured with Dry Gauze, Dry Gauze, Secured with Secured with Tape Tape Left -Lotion applied to leg before No compression wrap -Compression Wrap Yahir Wrap Treatment Response Procedure Procedure Tolerated Well Tolerated Well Pain Scale: 0-10 Numeric Is Patient Pain Free? Yes Yes Teaching: Wound Center Dressing Your Wound -Person Taught Patient,Family -Teaching Method Discussion -Response to teaching Verbalize understanding WC - Visit Discharge Discharge Condition Stable Stable Ambulatory Status Ambulatory Ambulatory Transportation Private Auto Private Auto Accompanied by Medication Reconcilliation completed & No provided to patient/care provider Clinical Summary of Care Provided Yes Wound debrided: Medial malleolus Laterality: Left Type of Debridement: Excisional debridement Anesthesia Used: 5% Lidocaine Gel Depth: Down to and including healthy tissue and in the subcutaneous layer Percentage of wound debrided: 100 Instrument Used: 5mm curette Tissue Removed: Bioburden Severity: Fat Layer Exposed Amount of bleeding with debridement: Mild Bleeding Controlled with: Compression and gauze Patient tolerated procedure: Patient tolerated procedure well Lab / Micro Data Attestation: I reviewed the patient's lab results. Lab results narrative: Venous duplex examination of the left lower extremity, performed yesterday, reveals no evidence of acute deep vein thrombosis in the left lower extremity. The left great saphenous vein, duplicate left great saphenous vein, and left small saphenous vein are occluded, consistent with a recent prior endothermal ablation procedure. 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 We are to continue the use of collagenase Santyl topically, which will be applied by the patient on a daily basis. The patient is to continue with leg elevation, avoidance of idle standing and sitting, graduated compression stockings, active lifestyle, etc. Is an update to his current condition, it should be noted that the patient underwent endovenous laser ablation of the left great saphenous vein, the duplicate left great saphenous vein, and the left small saphenous vein on September 18, 2020. His surgery was uneventful, the patient did well initially. However, due to a miscommunication, the patient did not maintain elevation to his left lower extremity, nor compression. As result, he presented yesterday with a swollen, erythematous left lower extremity. There was concern about possible acute deep vein thrombosis. A venous duplex examination was performed, which was negative for deep vein thrombosis. A small hydroelectric plant technician was seen to demonstrate thrombosis, for which a repeat venous duplex examination will be performed within the next 7 to 10 days, to assure no progression of thrombus. Due to the mild erythema in the distal left lower extremity, the patient has been started on Keflex 500 mg p.o. twice daily. While the erythema is thought to be inflammatory in nature, the possibility of a mild cellulitis cannot be excluded. Patient is to continue with compression to the left lower extremity from the base of the toes to the upper thigh during awake hours. He will be able to rem ove compression while sleeping at night, on a flat surface. The patient is to return in 1 week for reassessment. Total time: 29 minutes.
[2020-09-30 09:01] VITALS: BP 139/80; PULSE 82; TEMP 36.3; BMI 24.0
--- NOTE | 2020-09-30 09:28 | HP.PCM_ITS ---
History of Present Illness Date of Service: 09/30/20 Chief Complaint: Ulceration, left medial malleolus History of Wound: This is an 85-year-old male with a longstanding history of chronic venous disease. He was previously treated at the [facility] in 2016 relative to a venous ulceration near the left medial malleolus. He was treated by conservative means, and his ulcer was ultimately healed. The patient has presented again recently with a new ulceration near the left medial malleolus, though it is slightly more distal location. The ulceration has been present for approximately 6 weeks. A venous duplex examination performed on March 20, 2020, revealed incompetence of the left great saphenous vein, a duplicate left great saphenous vein, and the left small saphenous vein. Patient has been implementing conservative treatment measures for many years, including leg elevation, avoidance of idle standing and sitting, use of graduated compression stockings of at least 20 to 30 mmHg compression, active lifestyle, weight control measures, and the use of [id number] anti-inflammatory medications as needed. Despite these measures, the ulceration near the left medial malleolus recurred, and the patient has been urged to redouble his efforts at implementing conservative treatment measures. The patient has had several ulcerations in this area. He also has a history of superficial thrombophlebitis in the left lower extremity in the past. He suffers from chronic swelling and edema in both lower extremities, which is most prominent at the end of the day. He sleeps on a flat surface at night. [facility] Medical History (Updated 09/30/20 @ 09:[address] 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 Restless legs Shortness of breath on exertion Smoker Wears glasses Wears hearing aid in both ears Home Medications budesonide-formoterol [Symbicort] 2 puff INHALATION BID 06/02/16 [History Last Taken 06/08/16 06:00 2 PUFF] amlodipine 5 mg PO DAILY 04/26/20 [History Last Taken Unknown] colchicine 0.6 mg PO DAILY PRN 09/11/20 [History Last Taken Unknown] multivitamin 1 tab PO DAILY 09/11/20 [History Last Taken Unknown] omeprazole 20 mg PO PRN PRN 09/11/20 [History Last Taken Unknown] oxycodone-acetaminophen [Percocet] 1 - 2 tab PO Q8H PRN 4 Days #14 tab 09/18/20 [Rx Last Taken Unknown] Allergy/AdvReac Type Severity Reaction Status Date / Time ibuprofen [From Motrin] Allergy Swelling Verified 09/11/20 14:01 Surgical History (Updated 09/11/20 @ 14:22 by Monica Cochran) History of cystoscopy History of esophagogastroduodenoscopy (EGD) History of parotidectomy Hx of basal cell carcinoma excision Hx of decompressive lumbar laminectomy Hx of finger joint replacement Hx of myringotomy Social History (Updated 09/16/20 @ 13:[address] Guanako Hinojosa MD) household members: spouse Smoking Status: Current every day smoker Vital Signs Vital Signs Vital Signs: 09/30/20 09:01 Temperature 97.3 F L Temperature Source Temporal Pulse Rate 82 Blood Pressure 139/80 H Blood Pressure Mean 99 Blood Pressure Source Monitor Blood Pressure Position Sitting Blood Pressure Location Left Arm Physical Exam Const alert, oriented x3, no apparent distress, average body habitus and well nourished General Appearance: cooperative, comfortable, well kempt and well developed Orientation / Consciousness: awake, oriented to person, oriented to place and oriented to time HEENT normocephalic and head/scalp atraumatic Head and Scalp: normal to inspection, normocephalic and atraumatic External Ear: external ears normal Eyes PERRL and EOMs intact bilaterally General Eye: normal appearance of both eyes Neck full ROM General: trachea midline Resp normal respiratory effort and no use of accessory muscles Effort and Inspection: able to speak in complete sentences Extremity normal to inspection, full ROM and no calf tenderness Extremity Narrative: There is no swelling or edema noted in the patient's left lower extremity. There is no erythema. The access sites from the patient's recent endovenous thermal ablation procedure are well-healed. General Extremity: normal exam except as noted; Negative for clubbing or cyanosis Skin Wound Narrative: The ulceration on the left medial malleolus is much smaller in size. There is evidence of peripheral epithelialization. There is no sign of infection or cellulitis. Ulcer dimensions are documented elsewhere. There is a small amount of bioburden. Neuro oriented x3, CN's II-XII intact bilaterally, moves all extremities and no focal motor deficits Sensorium / Orientation: awake, alert, oriented to person, oriented to place and oriented to time Psych Appearance: grossly normal, appropriate and well kempt Attitude: calm and engaged Activity / Motor Behavior: appropriate eye contact Speech: normal speech Thought Process: normal thought process Debridement Note Debridement Note Post-Debridement Measurements and Additional Note: Post-Debridement Measurements/Treatment - Nurse 1 - General Ulcer Assessment Start: 09/16/20 08:57 Freq: Status: Active Protocol: DENISE Activity Type Activity Date Activity User E-Sign Co-Sign Detail Recorded Client Recorded Date Recorded By Document 09/16/20 08:57 BM [id number] 09/16/20 09:01 BMF Document 09/23/20 09:16 MW [id number] 09/23/20 09:28 MW Document 09/30/20 09:01 KR [id number] 09/30/20 09:02 KR 09/16/20 09/23/20 09/30/20 08:57 09:16 09:01 - Today's Visit Information Type of service Follow-up Visit Follow-up Visit Follow-up Visit (Physician/APPRAISAL SPECIALIST (Physician/APPRAISAL SPECIALIST (Physician/APPRAISAL SPECIALIST ) ) ) Arrival Mode Ambulatory Ambulatory Ambulatory Transfer Assistance None None Accompanied by self Patient Identification Verified (Name & Yes Yes Yes ) Patient Requires Transmission-Based No Precautions Safety Precautions NA Height and Weight Body Mass Index (BMI) 24.0 24.0 24.0 BMI Classification Normal Normal Normal Vital Signs Temperature (97.8 F-99.1 F) 97.5 F L 97.4 F L 97.3 F L Temperature Source Temporal Oral Temporal Pulse Rate (60-100) 75 76 82 Pulse Location Monitor Monitor Monitor Respiratory Rate (12-18) 18 18 Respiratory rate source Observation Observation Oxygen Delivery Method Room Air Room Air Blood Pressure (90/60-120/80) 138/85 H 153/75 H 139/80 H Blood Pressure Mean 102 101 99 Source Monitor Monitor Monitor Position Sitting Sitting Sitting Blood Pressure Location Left Arm Right Arm Left Arm History Since Last Visit- (Skip if this is Patient's initial visit) Have you changed medications since your No No No last visit? Any new allergies or adverse reactions No No No Had a fall/change in ADL's that may No No No increase risk of falls Signs or symptoms of abuse and/or No No No neglect since last visit Have you been in the hospital since your No No No last visit? Has dressing in place as prescribed Yes Yes Yes Has compression in place as prescribed N/A Yes Yes Has offloadiing in place as prescribed N/A N/A N/A Experienced any changes in pain level or No No management Left Footwear Regular Shoe Regular Shoe Regular Shoe Right Footwear Regular Shoe Regular Shoe Regular Shoe Pain Scale: 0-10 Numeric Is Patient Pain Free? Yes Yes Yes WC - Nurse 1 - General Ulcer Measurement Start: 09/16/20 08:57 Freq: Status: Active Protocol: Activity Type Activity Date Activity User E-Sign Co-Sign Detail Recorded Client Recorded Date Recorded By Document 09/16/20 08:57 BM [id number] 09/16/20 09:01 BMF Document 09/23/20 09:16 MW [id number] 09/23/20 09:28 MW Document 09/30/20 09:01 KR [id number] 09/30/20 09:02 KR 09/16/20 09/23/20 09/30/20 08:57 09:16 09:01 Wound Center Nurse 1 #2 left medial ankle -Combined with other wound No No -Current Size (cm) - Length 0.9 1.0 0.8 -Current Size (cm) - Width 0.7 1.0 1 -Current Size (cm) - Depth 0.1 0.1 0.1 -Total Square Cm 0.63 1.00 0.8 -Photo Taken No No -Epithelialization None Present None Present -Tunneling No No -Undermining/Tunneling No No -Circular Undermining No No -Exudate Amt Small Small Small -Exudate Type Serous Serosanguineous Serosanguineous -Wound Margin Distinct, Flat & Intact Distinct, Outline Outline Attached Attached -Granulation Amt None Present (0 None Present (0 Small (1-33%) %) %) -Granulation Quality N/A [place] -Slough/Fibrin Yes Yes -Necrosis Amt Large (67-100%) Large (67-100%) Small (1-33%) -Necrotic Tissue Type Adherent Slough Adherent Slough Adherent Slough -Structure Exposed N/A -Texture (Corine-wound Skin Appearance) Assessed, Assessed, Assessed, Scarring Localized Edema Scarring -Moisture ([place]ine-wound Skin Appearance) Assessed No Abnormality, No Abnormality, Assessed Assessed -Color ([place]ine-wound Skin Appearance) Assessed, No Abnormality, No Abnormality, Erythema Assessed Assessed -Temperature ([place]ine-wound Skin No Abnormality No Abnormality No Abnormality Appearance) (Pt Warm) (Pt Warm) (Pt Warm) -Tenderness on Palpation (Corine-wound No Yes No Skin Appearance) -Ulcer Cleansing Rinsed/ Rinsed/ Rinsed/ Irrigated with Irrigated with Irrigated with Saline Saline Saline -Foul Odor after Cleansing No No No -Anesthetic Used 5% Lidocaine 5% Lidocaine 4% Lidocaine Gel Gel Solution,5% Lidocaine Gel Lower Limb Edema Present Yes Left Calf (cm) 39.0 36 Left Ankle (cm) 22.5 22 WC - Nurse 2 - General Ulcer CM Notes Start: 09/16/20 08:57 Freq: Status: Active Protocol: Activity Type Activity Date Activity User E-Sign Co-Sign Detail Recorded Client Recorded Date Recorded By Document 09/16/20 09:17 PL [id number] 09/16/20 09:18 PL Document 09/23/20 12:35 PL [id number] 09/23/20 12:37 PL 09/16/20 09/23/20 09:17 12:35 Wound Center Nurse 2 #2 left medial ankle -Time 09:06 09:35 -Correct Patient Yes Yes -Correct Side, Site, Position Yes Yes -Correct Procedure Yes Yes -Procedure Performed Yes Yes -Type of Procedure Debridement Debridement -Clinical Debridement Subcutaneous Subcutaneous -Tissue Removed Subcutaneous Subcutaneous -Post Debridement (cm) - Length 0.9 1 -Post Debridement (cm) - Width 0.7 1 -Post Debridement (cm) - Depth 0.1 0.1 -Total Square (Post) (cm) 0.63 1 -Area of Debridement (cm) - Length 0.9 1 -Area of Debridement (cm) - Width 0.7 1 -Total Square (Area) (cm) 0.63 1 -Tunneling No No -Undermining/Tunneling No No -Circular Undermining No No -Wound/Ulcer Outcome Healed- Not Healed Surgical Closure -Ulcer Cleansing Rinsed/ Irrigated with Saline -Foul Odor after Cleansing No No -Bioengineered Tissue No No -Bleeding Controlled with Pressure -Treatment Response Procedure Tolerated Well -Debridement - Subq, 1st 20sq cm Yes Yes Pain Scale: 0-10 Numeric Is Patient Pain Free? Yes Yes - Nurse 3 - General Ulcer D/C NN Start: 09/16/20 08:57 Freq: Status: Active Protocol: Activity Type Activity Date Activity User E-Sign Co-Sign Detail Recorded Client Recorded Date Recorded By Document 09/16/20 09:14 BMF [id number] 09/16/20 09:15 BM Document 09/23/20 09:56 MW [id number] 09/23/20 09:58 MW Document 09/30/20 09:24 KR [id number] 09/30/20 09:25 KR 09/16/20 09/23/20 09/30/20 09:14 09:56 09:24 Wound Care Nurse 3 #2 left medial ankle -Ulcer Cleansing Rinsed/ Rinsed/ Irrigated with Irrigated with Saline Saline -Foul Odor after Cleansing No No -Negative Pressure Wound Therapy N/A -Primary Dressing Applied Other C Hydrogel ($) -Other Dressing santyl santyl -Primary Dressing Covered/Secured with Dry Gauze, Dry Gauze, Dry Gauze, Secured with Secured with Secured with Tape Tape Tape Left -Lotion applied to leg before No compression wrap -Compression Wrap Yahir Wrap Treatment Response Procedure Procedure Tolerated Well Tolerated Well Pain Scale: 0-10 Numeric Is Patient Pain Free? Yes Yes Yes Teaching: Wound Center Dressing Your Wound -Person Taught Patient,Family -Teaching Method Discussion -Response to teaching Verbalize understanding - Visit Discharge Discharge Condition Stable Stable Stable Ambulatory Status Ambulatory Ambulatory Ambulatory Transportation Private Auto Private Auto Private Auto Accompanied by Medication Reconcilliation completed & No provided to patient/care provider Clinical Summary of Care Provided Yes Wound debrided: Left medial malleolus Laterality: Left Type of Debridement: Excisional debridement Anesthesia Used: 5% Lidocaine Gel Depth: Down to and including healthy tissue and in the subcutaneous layer Percentage of wound debrided: 100 Instrument Used: 3mm curette Tissue Removed: Bioburden Severity: Fat Layer Exposed Amount of bleeding with debridement: Mild Bleeding Controlled with: Compression and gauze Patient tolerated procedure: Patient tolerated procedure well Assessment & Plan Assessment/Plan (1) Chronic venous insufficiency: (2) Venous hypertension, chronic, with ulcer and inflammation: QUALIFIERS: Laterality: left Qualified Code(s): L97.929 - Non- pressure chronic ulcer of unspecified part of left lower leg with unspecified severity (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 The swelling and edema in the patient's left lower extremity has now resolved. The erythema has diminished as well, and is now abated. The patient's percutaneous access sites are healing appropriately. Patient still has mild discomfort, but much less than previously. He has been urged to transition to the use of nonsteroidal anti-inflammatory medications such as ibuprofen. The venous ulceration near the left medial malleolus is smaller in size, appearing to progress as anticipated. We are to continue current therapy with respect to the patient's left lower extremity venous ulceration. We are to transition to the use of collagen hydrogel topically, which will be applied by the patient on a daily basis. The patient is to continue with leg elevation, avoidance of idle standing and sitting, graduated compression stockings, active lifestyle, etc. It should be noted that the patient underwent endovenous laser ablation of the left great saphenous vein, the duplicate left great saphenous vein, and the left small saphenous vein on September 18, 2020. His surgery was uneventful, the patient did well initially. However, due to a miscommunication, the patient did not maintain elevation to his left lower extremity, nor compression. As result, he developed swelling and erythema in his left lower extremity. Two serial venous duplex examinations in the left lower extremity have demonstrated successful ablations, with no evidence of deep vein thrombosis. The patient has now completed a course of Keflex 500 mg p.o. twice daily. The patient is to continue with compression to the left lower extremity from the base of the toes to the upper thigh during awake hours. He will be able to remove compression while sleeping at night, on a flat surface. He is to elevate his lower extremities as much as possible. Elevation is to be to heart level, or higher. The patient is to return in 1 week for reassessment. At this juncture, patient has shown significant improvement within the last week. Total time: 29 minutes.
[2020-10-07 09:01] VITALS: BP 125/64; PULSE 82; RESP 16; TEMP 37.1; BMI 24.0
--- NOTE | 2020-10-07 13:58 | HP.PCM_ITS ---
History of Present Illness Date of Service: 10/07/20 Chief Complaint: Ulceration, left medial malleolus History of Wound: This is an 85-year-old male with a longstanding history of chronic venous disease. He was previously treated at the [facility] in 2016 relative to a venous ulceration near the left medial malleolus. He was treated by conservative means, and his ulcer was ultimately healed. The patient has presented again recently with a new ulceration near the left medial malleolus, though it is slightly more distal location. The ulceration has been present for approximately 6 weeks. A venous duplex examination performed on March 20, 2020, revealed incompetence of the left great saphenous vein, a duplicate left great saphenous vein, and the left small saphenous vein. Patient has been implementing conservative treatment measures for many years, including leg elevation, avoidance of idle standing and sitting, use of graduated compression stockings of at least 20 to 30 mmHg compression, active lifestyle, weight control measures, and the use of [id number]-[id number] anti-inflammatory medications as needed. Despite these measures, the ulceration near the left medial malleolus recurred, and the patient has been urged to redouble his efforts at implementing conservative treatment measures. The patient has had several ulcerations in this area. He also has a history of superficial thrombophlebitis in the left lower extremity in the past. He suffers from chronic swelling and edema in both lower extremities, which is most prominent at the end of the day. He sleeps on a flat surface at night. [facility] Medical History (Updated 09/30/20 @ 09:[address] 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 Restless legs Shortness of breath on exertion Smoker Wears glasses Wears hearing aid in both ears Home Medications budesonide-formoterol [Symbicort] 2 puff INHALATION BID 06/02/16 [History Last Taken 06/08/16 06:00 2 PUFF] amlodipine 5 mg PO DAILY 04/26/20 [History Last Taken Unknown] colchicine 0.6 mg PO DAILY PRN 09/11/20 [History Last Taken Unknown] multivitamin 1 tab PO DAILY 09/11/20 [History Last Taken Unknown] omeprazole 20 mg PO PRN PRN 09/11/20 [History Last Taken Unknown] oxycodone-acetaminophen [Percocet] 1 - 2 tab PO Q8H PRN 4 Days #14 tab 09/18/20 [Rx Last Taken Unknown] Allergy/AdvReac Type Severity Reaction Status Date / Time ibuprofen [From Motrin] Allergy Swelling Verified 09/11/20 14:01 Surgical History (Updated 09/11/20 @ 14:22 by Monica Cochran) History of cystoscopy History of esophagogastroduodenoscopy (EGD) History of parotidectomy Hx of basal cell carcinoma excision Hx of decompressive lumbar laminectomy Hx of finger joint replacement Hx of myringotomy Social History (Updated 09/16/20 @ 13:[address] Guanaok Hinojosa MD) household members: spouse Smoking Status: Current every day smoker Vital Signs Vital Signs Vital Signs: 10/07/20 09:01 Temperature 98.7 F Temperature Source Temporal Pulse Rate 82 Respiratory Rate 16 Blood Pressure 125/64 H Blood Pressure Mean 84 Blood Pressure Source Monitor Blood Pressure Position Sitting Blood Pressure Location Right Arm Oxygen Delivery Method Room Air Weight Weight: 160 lb Body Mass Index (BMI) 24.0 Physical Exam Const alert, oriented x3, no apparent distress and well nourished General Appearance: cooperative and well developed Orientation / Consciousness: awake, oriented to person, oriented to place and oriented to time HEENT normocephalic and head/scalp atraumatic Head and Scalp: normal to inspection, normocephalic and atraumatic External Ear: external ears normal Eyes PERRL and EOMs intact bilaterally Resp normal respiratory effort and no use of accessory muscles Effort and Inspection: able to speak in complete sentences Extremity no calf tenderness Extremity Narrative: Slight swelling and edema are noted in the patient's left lower extremity. In fact, mild swelling is also noted in the patient's right lower extremity. A firm palpable cord is noted in the left medial thigh, thought to represent the recently ablated left great saphenous vein. This is mildly uncomfortable to the patient. Distal perfusion in the left lower extremity appears to be normal. There is good capillary refill. Good sensorimotor function is noted in the patient's left foot. General Extremity: Negative for clubbing or cyanosis Skin Wound Narrative: The wound near the left medial malleolus persists. It is slightly smaller in size. There is a moderate amount of bioburden. There is no sign of infection or cellulitis. Dimensions are documented elsewhere. Neuro oriented x3, CN's II-XII intact bilaterally and moves all extremities Sensorium / Orientation: awake, alert, oriented to person, oriented to place and oriented to time Psych Appearance: grossly normal, appropriate and well kempt Attitude: calm and engaged Activity / Motor Behavior: appropriate eye contact Speech: normal speech Thought Process: normal thought process Debridement Note Debridement Note Post-Debridement Measurements and Additional Note: Post-Debridement Measurements/Treatment - Nurse 1 - General Ulcer Assessment Start: 09/16/20 08:57 Freq: Status: Active Protocol: HELEN.MAGO Activity Type Activity Date Activity User E-Sign Co-Sign Detail Recorded Client Recorded Date Recorded By Document 09/16/20 08:57 [facility] [id number] 09/16/20 09:01 BM Document 09/23/20 09:16 MW [id number] 09/23/20 09:28 MW Document 09/30/20 09:01 KR [id number] 09/30/20 09:02 KR Document 10/07/20 09:01 MW [id number] 10/07/20 09:05 MW 09/16/20 09/23/20 09/30/20 08:57 09:16 09:01 - Today's Visit Information Type of service Follow-up Visit Follow-up Visit Follow-up Visit (Physician/FIELD MARKETING COORDINATOR (Physician/FIELD MARKETING COORDINATOR (Physician/FIELD MARKETING COORDINATOR ) ) ) Arrival Mode Ambulatory Ambulatory Ambulatory Transfer Assistance None None Accompanied by self Patient Identification Verified (Name & Yes Yes Yes ) Patient Requires Transmission-Based No Precautions Safety Precautions NA Height and Weight Body Mass Index (BMI) 24.0 24.0 24.0 BMI Classification Normal Normal Normal Vital Signs Temperature (97.8 F-99.1 F) 97.5 F L 97.4 F L 97.3 F L Temperature Source Temporal Oral Temporal Pulse Rate (60-100) 75 76 82 Pulse Location Monitor Monitor Monitor Respiratory Rate (12-18) 18 18 Respiratory rate source Observation Observation Oxygen Delivery Method Room Air Room Air Blood Pressure (90/60-120/80) 138/85 H 153/75 H 139/80 H Blood Pressure Mean 102 101 99 Source Monitor Monitor Monitor Position Sitting Sitting Sitting Blood Pressure Location Left Arm Right Arm Left Arm History Since Last Visit- (Skip if this is Patient's initial visit) Have you changed medications since your No No No last visit? Any new allergies or adverse reactions No No No Had a fall/change in ADL's that may No No No increase risk of falls Signs or symptoms of abuse and/or No No No neglect since last visit Have you been in the hospital since your No No No last visit? Has dressing in place as prescribed Yes Yes Yes Has compression in place as prescribed N/A Yes Yes Has offloadiing in place as prescribed N/A N/A N/A Experienced any changes in pain level or No No management Left Footwear Regular Shoe Regular Shoe Regular Shoe Right Footwear Regular Shoe Regular Shoe Regular Shoe Pain Scale: 0-10 Numeric Is Patient Pain Free? Yes Yes Yes 10/07/20 09:01 WC - Today's Visit Information Type of service Follow-up Visit (Physician/FIELD MARKETING COORDINATOR ) Arrival Mode Ambulatory Transfer Assistance None Accompanied by Patient Identification Verified (Name & Yes ) Patient Requires Transmission-Based No Precautions Safety Precautions NA Height and Weight Body Mass Index (BMI) 24.0 BMI Classification Normal Vital Signs Temperature (97.8 F-99.1 F) 98.7 F Temperature Source Temporal Pulse Rate (60-100) 82 Pulse Location Monitor Respiratory Rate (12-18) 16 Respiratory rate source Observation Oxygen Delivery Method Room Air Blood Pressure (90/60-120/80) 125/64 H Blood Pressure Mean 84 Source Monitor Position Sitting Blood Pressure Location Right Arm History Since Last Visit- (Skip if this is Patient's initial visit) Have you changed medications since your No last visit? Any new allergies or adverse reactions No Had a fall/change in ADL's that may No increase risk of falls Signs or symptoms of abuse and/or No neglect since last visit Have you been in the hospital since your No last visit? Has dressing in place as prescribed Yes Has compression in place as prescribed No Has offloadiing in place as prescribed N/A Experienced any changes in pain level or No management Left Footwear Regular Shoe Right Footwear Regular Shoe Pain Scale: 0-10 Numeric Is Patient Pain Free? Yes - Nurse 1 - General Ulcer Measurement Start: 09/16/20 08:57 Freq: Status: Active Protocol: Activity Type Activity Date Activity User E-Sign Co-Sign Detail Recorded Client Recorded Date Recorded By Document 09/16/20 08:57 BMF [id number] 09/16/20 09:01 BMF Document 09/23/20 09:16 MW [id number] 09/23/20 09:28 MW Document 09/30/20 09:01 KR [id number] 09/30/20 09:02 KR Document 10/07/20 09:01 MW [id number] 10/07/20 09:05 MW 09/16/20 09/23/20 09/30/20 08:57 09:16 09:01 Wound Center Nurse 1 #2 left medial ankle -Combined with other wound No No -Current Size (cm) - Length 0.9 1.0 0.8 -Current Size (cm) - Width 0.7 1.0 1 -Current Size (cm) - Depth 0.1 0.1 0.1 -Total Square Cm 0.63 1.00 0.8 -Date of Last Picture (Recall this field) -Photo Taken No No -Epithelialization None Present None Present -Tunneling No No -Undermining/Tunneling No No -Circular Undermining No No -Exudate Amt Small Small Small -Exudate Type Serous Serosanguineous Serosanguineous -Wound Margin Distinct, Flat & Intact Distinct, Outline Outline Attached Attached -Granulation Amt None Present (0 None Present (0 Small (1-33%) %) %) -Granulation Quality N/A [place] -Slough/Fibrin Yes Yes -Necrosis Amt Large (67-100%) Large (67-100%) Small (1-33%) -Necrotic Tissue Type Adherent Slough Adherent Slough Adherent Slough -Structure Exposed N/A -Texture (Corine-wound Skin Appearance) Assessed, Assessed, Assessed, Scarring Localized Edema Scarring -Moisture (Corine-wound Skin Appearance) Assessed No Abnormality, No Abnormality, Assessed Assessed -Color (Corine-wound Skin Appearance) Assessed, No Abnormality, No Abnormality, Erythema Assessed Assessed -Temperature (Corine-wound Skin No Abnormality No Abnormality No Abnormality Appearance) (Pt Warm) (Pt Warm) (Pt Warm) -Tenderness on Palpation (Corine-wound No Yes No Skin Appearance) -Ulcer Cleansing Rinsed/ Rinsed/ Rinsed/ Irrigated with Irrigated with Irrigated with Saline Saline Saline -Foul Odor after Cleansing No No No -Anesthetic Used 5% Lidocaine 5% Lidocaine 4% Lidocaine Gel Gel Solution,5% Lidocaine Gel Lower Limb Edema Present Yes Left Calf (cm) 39.0 36 Left Ankle (cm) 22.5 22 10/07/20 09:01 Wound Center Nurse 1 #2 left medial ankle -Combined with other wound No -Current Size (cm) - Length 1.1 -Current Size (cm) - Width 1.3 -Current Size (cm) - Depth 0.1 -Total Square Cm 1.43 -Date of Last Picture (Recall this 10/07/20 field) -Photo Taken Yes -Epithelialization None Present -Tunneling No -Undermining/Tunneling No -Circular Undermining No -Exudate Amt Medium -Exudate Type Serosanguineous -Wound Margin Flat & Intact -Granulation Amt None Present (0 %) -Granulation Quality N/A -Slough/Fibrin Yes -Necrosis Amt None Present (0 %) -Necrotic Tissue Type Adherent Slough -Structure Exposed N/A -Texture (Corine-wound Skin Appearance) Assessed, Localized Edema ,Scarring -Moisture (Corine-wound Skin Appearance) No Abnormality, Assessed -Color (Corine-wound Skin Appearance) Assessed, Erythema -Temperature (Corine-wound Skin No Abnormality Appearance) (Pt Warm) -Tenderness on Palpation (Corine-wound Yes Skin Appearance) -Ulcer Cleansing Rinsed/ Irrigated with Saline -Foul Odor after Cleansing No -Anesthetic Used 5% Lidocaine Gel Lower Limb Edema Present Yes Left Calf (cm) 37.5 Left Ankle (cm) 24.1 - Nurse 2 - General Ulcer CM Notes Start: 09/16/20 08:57 Freq: Status: Active Protocol: Activity Type Activity Date Activity User E-Sign Co-Sign Detail Recorded Client Recorded Date Recorded By Document 09/16/20 09:17 PL [id number] 09/16/20 09:18 PL Document 09/23/20 12:35 PL [id number] 09/23/20 12:37 PL Document 09/30/20 12:19 PL [id number] 09/30/20 12:20 PL Document 10/07/20 12:15 PL [id number] 10/07/20 12:17 PL 09/16/20 09/23/20 09/30/20 09:17 12:35 12:19 Wound Center Nurse 2 #2 left medial ankle -Time 09:06 09:35 09:12 -Correct Patient Yes Yes Yes -Correct Side, Site, Position Yes Yes Yes -Correct Procedure Yes Yes Yes -Procedure Performed Yes Yes Yes -Type of Procedure Debridement Debridement Debridement -Clinical Debridement Subcutaneous Subcutaneous Subcutaneous -Tissue Removed Subcutaneous Subcutaneous Subcutaneous -Post Debridement (cm) - Length 0.9 1 0.8 -Post Debridement (cm) - Width 0.7 1 1.0 -Post Debridement (cm) - Depth 0.1 0.1 0.1 -Total Square (Post) (cm) 0.63 1 0.80 -Area of Debridement (cm) - Length 0.9 1 0.8 -Area of Debridement (cm) - Width 0.7 1 1.0 -Total Square (Area) (cm) 0.63 1 0.80 -Tunneling No No No -Undermining/Tunneling No No No -Circular Undermining No No No -Wound/Ulcer Outcome Healed- Not Healed Not Healed Surgical Closure -Ulcer Cleansing Rinsed/ Rinsed/ Irrigated with Irrigated with Saline Saline -Foul Odor after Cleansing No No No -Bioengineered Tissue No No No -Bleeding Controlled with Pressure -Treatment Response Procedure Tolerated Well -Debridement - Subq, 1st 20sq cm Yes Yes Yes Pain Scale: 0-10 Numeric Is Patient Pain Free? Yes Yes Yes 10/07/20 12:15 Wound Center Nurse 2 #2 left medial ankle -Time 09:35 -Correct Patient Yes -Correct Side, Site, Position Yes -Correct Procedure Yes -Procedure Performed Yes -Type of Procedure Debridement -Clinical Debridement Subcutaneous -Tissue Removed Subcutaneous -Post Debridement (cm) - Length 1.1 -Post Debridement (cm) - Width 1.3 -Post Debridement (cm) - Depth 0.1 -Total Square (Post) (cm) 1.43 -Area of Debridement (cm) - Length 1.1 -Area of Debridement (cm) - Width 0.3 -Total Square (Area) (cm) 0.33 -Tunneling No -Undermining/Tunneling No -Circular Undermining No -Wound/Ulcer Outcome Not Healed -Ulcer Cleansing Rinsed/ Irrigated with Saline -Foul Odor after Cleansing No -Bioengineered Tissue No -Bleeding Controlled with Pressure -Treatment Response Procedure Tolerated Well -Debridement - Subq, 1st 20sq cm Yes Pain Scale: 0-10 Numeric Is Patient Pain Free? Yes WC - Nurse 3 - General Ulcer D/C NN Start: 09/16/20 08:57 Freq: Status: Active Protocol: Activity Type Activity Date Activity User E-Sign Co-Sign Detail Recorded Client Recorded Date Recorded By Document 09/16/20 09:14 BM [id number] 09/16/20 09:15 BMF Document 09/23/20 09:56 MW [id number] 09/23/20 09:58 MW Document 09/30/20 09:24 KR [id number] 09/30/20 09:25 KR Document 10/07/20 09:53 MW [id number] 10/07/20 09:54 MW 09/16/20 09/23/20 09/30/20 09:14 09:56 09:24 Wound Care Nurse 3 #2 left medial ankle -Ulcer Cleansing Rinsed/ Rinsed/ Irrigated with Irrigated with Saline Saline -Foul Odor after Cleansing No No -Negative Pressure Wound Therapy N/A -Primary Dressing Applied Other C Hydrogel ($) -Other Dressing santyl santyl -Primary Dressing Covered/Secured with Dry Gauze, Dry Gauze, Dry Gauze, Secured with Secured with Secured with Tape Tape Tape Left -Lotion applied to leg before No compression wrap -Compression Wrap Yahir Wrap Treatment Response Procedure Procedure Tolerated Well Tolerated Well Pain Scale: 0-10 Numeric Is Patient Pain Free? Yes Yes Yes Teaching: Wound Center Dressing Your Wound -Person Taught Patient,Family -Teaching Method Discussion -Response to teaching Verbalize understanding WC - Visit Discharge Discharge Condition Stable Stable Stable Ambulatory Status Ambulatory Ambulatory Ambulatory Transportation Private Auto Private Auto Private Auto Accompanied by Medication Reconcilliation completed & No provided to patient/care provider Clinical Summary of Care Provided Yes 10/07/20 09:53 Wound Care Nurse 3 #2 left medial ankle -Ulcer Cleansing Rinsed/ Irrigated with Saline -Foul Odor after Cleansing No -Negative Pressure Wound Therapy N/A -Primary Dressing Applied -Other Dressing C. HYDROGEL -Primary Dressing Covered/Secured with Dry Gauze, Secured with Tape Left -Lotion applied to leg before compression wrap -Compression Wrap Treatment Response Procedure Tolerated Well Pain Scale: 0-10 Numeric Is Patient Pain Free? Yes Teaching: Wound Center Dressing Your Wound -Person Taught Patient,Family -Teaching Method Discussion -Response to teaching Verbalize understanding WC - Visit Discharge Discharge Condition Stable Ambulatory Status Ambulatory Transportation Private Auto Accompanied by Medication Reconcilliation completed & No provided to patient/care provider Clinical Summary of Care Provided Yes Wound debrided: Left medial malleolus Laterality: Left Type of Debridement: Excisional debridement Anesthesia Used: 5% Lidocaine Gel Depth: Down to and including healthy tissue and in the subcutaneous layer Percentage of wound debrided: 100 Instrument Used: 5mm curette Tissue Removed: Bioburden Severity: Fat Layer Exposed Amount of bleeding with debridement: Mild Bleeding Controlled with: Compression and gauze Patient tolerated procedure: Patient tolerated procedure well Assessment/Plan Assessment/Plan (1) Venous hypertension, chronic, with ulcer and inflammation: CODE(S): I87.339 - Chronic venous hypertension (idiopathic) with ulcer and inflammation of unspecified lower extremity QUALIFIERS: Laterality: left Qualified Code(s): L97.929 - Non- pressure chronic ulcer of unspecified part of left lower leg with unspecified severity (2) 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: CODE(S): I87.039 - 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 (3) Chronic venous insufficiency: (4) Varicose veins with ulcer and inflammation: CODE(S): I83.209 - Varicose veins of unspecified lower extremity with both ulcer of unspecified site and inflammation; L97.909 - Non-pressure chronic ulcer of unspecified part of unspecified lower leg with unspecified severity (5) Ulcer of ankle: (6) Swelling of lower limb: CODE(S): M79.89 - Other specified soft tissue disorders (7) Gout: CODE(S): M10.9 - Gout, unspecified (8) Emphysema of lung: CODE(S): J43.9 - Emphysema, unspecified (9) Tobacco abuse: CODE(S): Z72.0 - Tobacco use (10) Postphlebitic syndrome with ulcer, left: CODE(S): I87.012 - 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 (11) History of superficial thrombophlebitis: (12) Prostatism: CODE(S): N40.0 - Benign prostatic hyperplasia without lower urinary tract symptoms (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 The mild swelling and edema in the patient's left lower extremity is a regression from the patient's status 1 week ago. It appears as though the patient has been somewhat noncompliant with the elevation of his lower extremities. Indicates that of the 14 hours awake each day, he has elevating less than 2 hours. Patient has been encouraged to enhance the amount of time he spends with his lower extremities elevated. Elevation is to be to heart level, or higher. He is spending long hours each day in an idle sitting position. This has been discouraged. Activity has been encouraged. We are to continue compression to the left lower extremity from the base of the toes to the upper thigh. The patient is complaining of discomfort in his left lower extremity which exceeds that which is manageable by [id number] medications. As result, the prescription has been provided for tramadol 50 mg p.o., a total of 7 tablets. The patient has agreed to take only at bedtime each night, as needed. We are to continue the use of collagen hydrogel topically on a daily basis. The patient is to return in 1 week for reassessment. It should be noted that the patient underwent endovenous laser ablation of the left great saphenous vein, the duplicate left great saphenous vein, and the left small saphenous vein on September 18, 2020.? His surgery was uneventful, the patient did well initially.? However, due to a miscommunication, the patient did not maintain elevation to his left lower extremity, nor compression.? As result, he developed swelling and erythema in his left lower extremity.? Two serial venous duplex examinations in the left lower extremity have demonstrated successful ablations, with no evidence of deep vein thrombosis.? The patient has now completed a course of Keflex 500 mg p.o. twice daily.? The patient is to continue with compression to the left lower extremity from the base of the toes to the upper thigh during awake hours.? He will be able to remove compression while sleeping at night, on a flat surface.? He is to elevate his lower extremities as much as possible.? Elevation is to be to heart level, or higher.? The patient is to return in 1 week for reassessment.? Total time: 28 minutes.
== END 2020-10-13 23:59 ==
LOC: WC 09:00
PROVIDERS: PCP Family Medicine; Referring Provider Family Medicine; Visit Provider Surgery
DX: I83.223 Varicose veins of left lower extremity with both ulcer of ankle and inflammation (principal); L97.322 Non-pressure chronic ulcer of left ankle with fat layer exposed; R60.0 Localized edema; G25.81 Restless legs syndrome; I10 Essential (primary) hypertension; J43.9 Emphysema, unspecified; F17.200 Nicotine dependence, unspecified, uncomplicated; M79.89 Other specified soft tissue disorders; N40.0 Benign prostatic hyperplasia without lower urinary tract symptoms; Z79.51 Long term (current) use of inhaled steroids; Z79.899 Other long term (current) drug therapy
CPT/HCPCS: 11042

== ENCOUNTER 2020-11-04 09:00 | Outpatient (RCR) | payer MEDICARE, SELFPAY ==
[2020-10-14 00:28] VITALS: BP 125/64; PULSE 82; RESP 16; TEMP 37.1; BMI 23.8
[2020-10-14 09:04] VITALS: BP 147/87; PULSE 76; TEMP 35.9; BMI 23.8
--- NOTE | 2020-10-14 14:07 | PCM.WC.HP ---
History of Present Illness Date of Service: 10/14/20 Chief Complaint: Ulceration, left medial malleolus History of Wound: This is an 85-year-old male with a longstanding history of chronic venous disease. He was previously treated at the [facility] in 2016 relative to a venous ulceration near the left medial malleolus. He was treated by conservative means, and his ulcer was ultimately healed. The patient has presented again with a new ulceration near the left medial malleolus, though it is slightly more distal in location. The ulceration had been present for approximately 6 weeks at the time of the patient's initial presentation. A venous duplex examination performed on March 20, 2020, revealed incompetence of the left great saphenous vein, a duplicate left great saphenous vein, and the left small saphenous vein. The patient had been implementing conservative treatment measures for many years, including leg elevation, avoidance of idle standing and sitting, use of graduated compression stockings of at least 20 to 30 mmHg compression, active lifestyle, weight control measures, and the use of [id number] anti-inflammatory medications as needed. Despite these measures, the ulceration near the left medial malleolus recurred, and the patient was advised to redouble his efforts at implementing conservative treatment measures. The patient has had several ulcerations in this area previously. He also has a history of superficial thrombophlebitis in the left lower extremity in the past. He suffers from chronic swelling and edema in both lower extremities, which is most prominent at the end of the day. He sleeps on a flat surface at night. He claims to be active. 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 Restless legs Shortness of breath on exertion Smoker Wears glasses Wears hearing aid in both ears Home Medications budesonide-formoterol [Symbicort] 2 puff INHALATION BID 06/02/16 [History Last Taken 06/08/16 06:00 2 PUFF] amlodipine 5 mg PO DAILY 04/26/20 [History Last Taken Unknown] colchicine 0.6 mg PO DAILY PRN 09/11/20 [History Last Taken Unknown] multivitamin 1 tab PO DAILY 09/11/20 [History Last Taken Unknown] omeprazole 20 mg PO PRN PRN 09/11/20 [History Last Taken Unknown] oxycodone-acetaminophen [Percocet] 1 - 2 tab PO Q8H PRN 4 Days #14 tab 09/18/20 [Rx Last Taken Unknown] Allergy/AdvReac Type Severity Reaction Status Date / Time ibuprofen [From Motrin] Allergy Swelling Verified 09/11/20 14:01 Surgical History History of cystoscopy History of esophagogastroduodenoscopy (EGD) History of parotidectomy Hx of basal cell carcinoma excision Hx of decompressive lumbar laminectomy Hx of finger joint replacement Hx of myringotomy Social History household members: spouse Smoking Status: Current every day smoker Vital Signs Vital Signs Vital Signs: 10/14/20 00:28 10/14/20 09:04 Temperature 98.7 F 96.7 F L Temperature Source Temporal Pulse Rate 82 76 Respiratory Rate 16 Blood Pressure 125/64 H 147/87 H Blood Pressure Mean 84 107 Blood Pressure Source Monitor Blood Pressure Position Semi-Fowlers Blood Pressure Location Right Arm Right Arm Weight Weight: 160 lb Body Mass Index (BMI) 23.8 Physical Exam Const alert, oriented x3, no apparent distress and well nourished General Appearance: cooperative, well kempt and well developed Orientation / Consciousness: awake, oriented to person, oriented to place and oriented to time HEENT normocephalic and head/scalp atraumatic Head and Scalp: normal to inspection, normocephalic and atraumatic External Ear: external ears normal Eyes PERRL and EOMs intact bilaterally General Eye: normal appearance of both eyes Resp normal respiratory effort and no use of accessory muscles Effort and Inspection: able to speak in complete sentences Extremity no calf tenderness Extremity Narrative: Slight swelling and edema are noted in the patient's left lower extremity. The ulceration of the left medial malleolus persists. There appears to have been an increase in epithelialization in this area. The ulceration appears to be slightly smaller in size. Dimensions are documented elsewhere. There is no sign of infection or cellulitis. A small amount of surrounding erythema appears to be chronic in nature, and related to the patient's longstanding venous disease. There is a small amount of bioburden at the site of the patient's ulceration. The percutaneous access sites from previous surgery appear to be well-healed. Post-procedure bruising has resolved. 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 General Extremity: Negative for clubbing or cyanosis Skin Wound Narrative: The ulceration persists near the left medial malleolus. There appears to be increased epithelialization, with a slight reduction in size of the ulceration. There is a small amount of bioburden. There is no obvious sign of infection or cellulitis. A small amount of surrounding erythema appears to represent chronic changes related to the patient's longstanding venous disease. Neuro oriented x3, CN's II-XII intact bilaterally, moves all extremities and no focal motor deficits Speech: speech normal Motor Exam: muscle tone normal throughout and no movement abnormalities noted Psych Appearance: grossly normal, appropriate and well kempt Attitude: calm Activity / Motor Behavior: appropriate eye contact Speech: normal speech Thought Process: normal thought process Attention / Concentration: attention grossly intact Debridement Note Debridement Note Post-Debridement Measurements and Additional Note: Post-Debridement Measurements/Treatment HELEN - Nurse 1 - General Ulcer Assessment Start: 10/14/20 09:04 Freq: Status: Active Protocol: DENISE Activity Type Activity Date Activity User E-Sign Co-Sign Detail Recorded Client Recorded Date Recorded By Document 10/14/20 09:04 AVERY [id number] 10/14/20 09:05 AVERY 10/14/20 09:04 - Today's Visit Information Type of service Follow-up Visit (Physician/COUNTRY DIRECTOR ) Arrival Mode Ambulatory Patient Identification Verified (Name & Yes ) Height and Weight Body Mass Index (BMI) 23.8 BMI Classification Normal Vital Signs Temperature (97.8 F-99.1 F) 96.7 F L Temperature Source Temporal Pulse Rate (60-100) 76 Pulse Location Monitor Blood Pressure (90/60-120/80) 147/87 H Blood Pressure Mean 107 Source Monitor Position Semi-Fowlers Blood Pressure Location Right Arm History Since Last Visit- (Skip if this is Patient's initial visit) Have you changed medications since your No last visit? Any new allergies or adverse reactions No Had a fall/change in ADL's that may No increase risk of falls Signs or symptoms of abuse and/or No neglect since last visit Have you been in the hospital since your No last visit? Has dressing in place as prescribed Yes Has compression in place as prescribed N/A Has offloadiing in place as prescribed N/A Experienced any changes in pain level or No management Left Footwear Regular Shoe Right Footwear Regular Shoe Pain Scale: 0-10 Numeric Is Patient Pain Free? Yes WC - Nurse 1 - General Ulcer Measurement Start: 10/14/20 09:04 Freq: Status: Active Protocol: Activity Type Activity Date Activity User E-Sign Co-Sign Detail Recorded Client Recorded Date Recorded By Document 10/14/20 09:04 AVERY [id number] 10/14/20 09:05 KR 10/14/20 09:04 Wound Center Nurse 1 #2 left medial ankle -Current Size (cm) - Length 1.1 -Current Size (cm) - Width 1.7 -Current Size (cm) - Depth 0.1 -Total Square Cm 1.87 -Exudate Amt Small -Exudate Type Serosanguineous -Wound Margin Distinct, Outline Attached -Granulation Amt Large (67-100%) -Granulation Quality Red -Necrosis Amt Small (1-33%) -Necrotic Tissue Type Adherent Slough -Texture (Corine-wound Skin Appearance) Assessed, Scarring -Moisture (Corine-wound Skin Appearance) No Abnormality, Assessed -Color (Corine-wound Skin Appearance) No Abnormality, Assessed -Temperature (Corine-wound Skin No Abnormality Appearance) (Pt Warm) -Tenderness on Palpation (Corine-wound No Skin Appearance) -Ulcer Cleansing Rinsed/ Irrigated with Saline -Foul Odor after Cleansing No -Anesthetic Used 5% Lidocaine Gel WC - Nurse 2 - General Ulcer CM Notes Start: 10/14/20 09:04 Freq: Status: Active Protocol: Activity Type Activity Date Activity User E-Sign Co-Sign Detail Recorded Client Recorded Date Recorded By Document 10/14/20 12:33 JESSICA [id number] 10/14/20 12:37 PL 10/14/20 12:33 Wound Center Nurse 2 -Time 09:15 -Correct Patient Yes -Correct Side, Site, Position Yes -Correct Procedure Yes -Procedure Performed Yes -Type of Procedure Debridement -Clinical Debridement Subcutaneous -Tissue Removed Subcutaneous -Post Debridement (cm) - Length 1.1 -Post Debridement (cm) - Width 1.7 -Post Debridement (cm) - Depth 0.1 -Total Square (Post) (cm) 1.87 -Area of Debridement (cm) - Length 1.1 -Area of Debridement (cm) - Width 1.7 -Total Square (Area) (cm) 1.87 -Tunneling No -Undermining/Tunneling No -Circular Undermining No -Wound/Ulcer Outcome Not Healed -Ulcer Cleansing Rinsed/ Irrigated with Saline -Foul Odor after Cleansing No -Bioengineered Tissue No -Debridement - Subq, 1st 20sq cm Yes Pain Scale: 0-10 Numeric Is Patient Pain Free? Yes WC - Nurse 3 - General Ulcer D/C NN Start: 10/14/20 09:04 Freq: Status: Active Protocol: Activity Type Activity Date Activity User E-Sign Co-Sign Detail Recorded Client Recorded Date Recorded By Document 10/14/20 12:33 PL [id number] 10/14/20 12:37 PL 10/14/20 12:33 Is Patient Pain Free? Yes Teaching: Wound Center Control Swelling with Leg Elevation -Person Taught Patient,Family -Teaching Method Discussion -Response to teaching Verbalize understanding, Reinforcement needed Wound Care Nurse 3 #2 left medial ankle -Ulcer Cleansing Rinsed/ Irrigated with Saline -Foul Odor after Cleansing No -Other Dressing Hydrogel -Primary Dressing Covered/Secured with Dry Gauze, Secured with Tape WC - Visit Discharge Discharge Condition Stable Ambulatory Status Ambulatory Transportation Private Auto Clinical Summary of Care Provided Yes Wound debrided: Left medial malleolus Laterality: Left Type of Debridement: Excisional debridement Anesthesia Used: 5% Lidocaine Gel Depth: Down to and including healthy tissue and in the subcutaneous layer Percentage of wound debrided: 100 Instrument Used: 5mm curette Tissue Removed: Bioburden Severity: Fat Layer Exposed Amount of bleeding with debridement: Mild Bleeding Controlled with: Compression and gauze Patient tolerated procedure: Patient tolerated procedure well Assessment/Plan Assessment/Plan (1) Ulcer of ankle: (2) 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: CODE(S): I87.039 - 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 (3) Venous hypertension, chronic, with ulcer and inflammation: CODE(S): I87.339 - Chronic venous hypertension (idiopathic) with ulcer and inflammation of unspecified lower extremity QUALIFIERS: Laterality: left Qualified Code(s): L97.929 - Non-pressure chronic ulcer of unspecified part of left lower leg with unspecified severity (4) Varicose veins with ulcer and inflammation: CODE(S): I83.209 - Varicose veins of unspecified lower extremity with both ulcer of unspecified site and inflammation; L97.909 - Non-pressure chronic ulcer of unspecified part of unspecified lower leg with unspecified severity (5) Postphlebitic syndrome with ulcer, left: CODE(S): I87.012 - 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 (6) Chronic venous insufficiency: (7) Swelling of lower limb: CODE(S): M79.89 - Other specified soft tissue disorders (8) History of superficial thrombophlebitis: (9) Yu phlebectatica: (10) Gout: CODE(S): M10.9 - Gout, unspecified (11) Emphysema of lung: CODE(S): J43.9 - Emphysema, unspecified (12) Tobacco abuse: CODE(S): Z72.0 - Tobacco use (13) Prostatism: CODE(S): N40.0 - Benign prostatic hyperplasia without lower urinary tract symptoms (14) History of kidney stones: CODE(S): Z87.442 - Personal history of urinary calculi (15) Hypertension: CODE(S): I10 - Essential (primary) hypertension PLAN: The patient underwent endovenous laser ablation of the left great saphenous vein, the duplicate left great saphenous vein, and the left small saphenous vein on September 18, 2020. His surgery was uneventful. There is been some improvement with respect to the ulceration near the left medial malleolus. There are signs of epithelialization. Mild swelling and edema are noted in the patient's left lower extremity today, and on recent visits. The patient has appeared for his appointment today without compression, which has been the case in recent previous weeks. Therefore, the swelling may be due to a lack of compression. The patient has been previously advised to apply compression to his left lower extremity daily, upon awakening each morning, and until retiring to bed each night. There is a question as to whether the patient has been entirely compliant with this recommendation. Furthermore, the patient has been advised to elevate his lower extremities as much as possible, even during daytime hours. As has been described to the patient, elevation is to be to heart level, or higher. The patient himself has insisted at each visit that he is complying with these recommendations. The patient's , who has frequently accompanied him, often gestures in dissent, suggesting that the patient may not be adhering to recommendations. Recommendations have included leg elevation, avoidance of idle standing and sitting, and compression. The patient has also been advised of the benefits of ambulation, which is permitted. The patient has recently admitted that of the 14 hours awake each day, he has been elevating less than 2 hours. The patient has been encouraged to enhance the amount of time he spends with his lower extremities elevated. He is spending long hours each day in an idle sitting position. This has been discouraged. We are to continue compression to the left lower extremity from the base of the toes to the knee. The patient has been encouraged to use his graduated compression stockings, previously prescribed, which are of known compression, administering 20 to 30 mmHg. The patient continues to complain of pain in the left lower extremity. He appears to be quite upset about the discomfort he is experiencing. There appears to be no obvious cause or etiology. Two recent venous duplex examinations have revealed no evidence of deep vein thrombosis or other unexpected abnormalities. The thermally ablated veins appear to have been successfully ablated. In questioning the patient as to the location of his pain, he is somewhat vague and nonspecific. He points to the ulceration near the left medial malleolus, claiming that it is painful. He also points to the left medial calf and the left medial thigh as well, which overlie the recently ablated veins. The pain is fairly constant, but waxes and wanes in intensity. The patient has previously requested a narcotic analgesic on several occasions in the past. He again is inquiring as to how we might address his discomfort. I do not feel that prescribing a narcotic or tramadol once again would be optimal. However, alleviating the patient's discomfort is a primary objective. The patient's pain may be due to one of several possible causes. The thermal effect of the procedure, performed on September 18, 2020, could be a contributing cause, but would be expected to be decreasing in intensity, or abated by now. It may well be that the ulcer itself is a source of the patient's discomfort. Finally, there may be a neuralgia related to the saphenous nerve, resulting from the thermal ablation of the left great saphenous vein below the knee at the time of the patient's recent procedure. We have discussed referral to a painter and paperhanger apprentice. To this end, I have spoken with a local development specialist, Dr. Fab Castañeda. I have explained the situation and the patient's recent medical history. Dr. Castañeda has agreed to see the patient in consultation. A referral will be made, and the patient's medical records will be forwarded to Dr. Castañeda's office. Dr. Castañeda's contact information is as follows: [facility], [address], [place] [address]; office phone ; fax . We are to continue the use of collagen hydrogel topically to the ulceration on a daily basis. The patient is to return in 2 weeks for reassessment. Total time: 29 minutes.
[2020-10-28 09:24] VITALS: BP 139/65; PULSE 75; RESP 18; TEMP 36.2; BMI 23.8
--- NOTE | 2020-10-28 13:26 | HP.PCM_ITS ---
History of Present Illness Date of Service: 10/28/20 Chief Complaint: Ulceration, left medial malleolus History of Wound: This is an 85-year-old male with a longstanding history of chronic venous disease. He was previously treated at the [facility] in 2016 relative to a venous ulceration near the left medial malleolus. He was treated by conservative means, and his ulcer was ultimately healed. The patient has presented again with a new ulceration near the left medial malleolus, though it is slightly more distal in location. The ulceration had been present for approximately 6 weeks at the time of the patient's initial presentation. A venous duplex examination performed on March 20, 2020, revealed incompetence of the left great saphenous vein, a duplicate left great saphenous vein, and the left small saphenous vein. The patient had been implementing conservative treatment measures for many years, including leg elevation, avoidance of idle standing and sitting, use of graduated compression stockings of at least 20 to 30 mmHg compression, active lifestyle, weight control measures, and the use of [id number] anti- inflammatory medications as needed. Despite these measures, the ulceration near the left medial malleolus recurred, and the patient was advised to redouble his efforts at implementing conservative treatment measures. The patient has had several ulcerations in this area previously. He also has a history of superficial thrombophlebitis in the left lower extremity in the past. He suffers from chronic swelling and edema in both lower extremities, which is most prominent at the end of the day. He sleeps on a flat surface at night. He claims to be active. 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 Restless legs Shortness of breath on exertion Smoker Wears glasses Wears hearing aid in both ears Home Medications budesonide-formoterol [Symbicort] 2 puff INHALATION BID 06/02/16 [History Last Taken 06/08/16 06:00 2 PUFF] amlodipine 5 mg PO DAILY 04/26/20 [History Last Taken Unknown] colchicine 0.6 mg PO DAILY PRN 09/11/20 [History Last Taken Unknown] multivitamin 1 tab PO DAILY 09/11/20 [History Last Taken Unknown] omeprazole 20 mg PO PRN PRN 09/11/20 [History Last Taken Unknown] oxycodone-acetaminophen [Percocet] 1 - 2 tab PO Q8H PRN 4 Days #14 tab 09/18/20 [Rx Last Taken Unknown] Allergy/AdvReac Type Severity Reaction Status Date / Time ibuprofen [From Motrin] Allergy Swelling Verified 09/11/20 14:01 Surgical History History of cystoscopy History of esophagogastroduodenoscopy (EGD) History of parotidectomy Hx of basal cell carcinoma excision Hx of decompressive lumbar laminectomy Hx of finger joint replacement Hx of myringotomy Social History household members: spouse Smoking Status: Current every day smoker Vital Signs Vital Signs Vital Signs: 10/28/20 09:24 Temperature 97.2 F L Temperature Source Temporal Pulse Rate 75 Respiratory Rate 18 Blood Pressure 139/65 H Blood Pressure Mean 89 Weight Weight: 160 lb Body Mass Index (BMI) 23.8 Physical Exam Const alert, oriented x3, no apparent distress and well nourished General Appearance: cooperative, comfortable, well kempt and well developed Orientation / Consciousness: awake, oriented to person, oriented to place and oriented to time Exam Limitations: no limitations HEENT normocephalic and head/scalp atraumatic Head and Scalp: normal to inspection, normocephalic and atraumatic Face and Sinus: normal facial exam Nose: external nose normal External Ear: external ears normal Eyes PERRL and EOMs intact bilaterally General Eye: normal appearance of both eyes Resp normal respiratory effort and no use of accessory muscles Effort and Inspection: able to speak in complete sentences Extremity Extremity Narrative: No swelling or edema are noted in the patient's left lower extremity. A slightly firm cord is palpable in the distribution of the patient's left great saphenous vein, which has been recently ablated by thermal means. There are no significant skin changes noted, but for the ulceration near the left medial malleolus. There is no evidence of erythema or cellulitis, but for some minor redness near the ulceration near the left medial malleolus. General Extremity: Negative for clubbing or cyanosis Skin Wound Narrative: The ulceration of the left medial malleolus persists. At this juncture, it appears as though the ulceration is quite small and superficial, somewhat resembling an excoriation. There is some slight redness. There is no significant drainage noted at this time. Infection is not suspected. Rather, there is concerned that there may be maceration resulting from the use of collagen hydrogel. Neuro oriented x3, CN's II-XII intact bilaterally and moves all extremities Sensorium / Orientation: awake, alert, oriented to person, oriented to place and oriented to time Speech: speech normal Psych Appearance: grossly normal, appropriate and well kempt Attitude: calm and engaged Activity / Motor Behavior: appropriate eye contact Speech: normal speech Mood & Affect: euthymic mood Thought Process: normal thought process Debridement Note Debridement Note Post-Debridement Measurements and Additional Note: Post-Debridement Measurements/Treatment - Nurse 1 - General Ulcer Assessment Start: 10/14/20 09:04 Freq: Status: Active Protocol: [email or web address] Activity Type Activity Date Activity User E-Sign Co-Sign Detail Recorded Client Recorded Date Recorded By Document 10/14/20 09:04 KR [id number] 10/14/20 09:05 KR Document 10/28/20 09:24 PL [id number] 10/28/20 09:29 PL 10/14/20 10/28/20 09:04 09:24 - Today's Visit Information Type of service Follow-up Visit Follow-up Visit (Physician/WOOD HEEL CEMENTER (Physician/WOOD HEEL CEMENTER ) ) Arrival Mode Ambulatory Ambulatory Transfer Assistance None Patient Identification Verified (Name & Yes Yes ) Patient Requires Transmission-Based No Precautions Safety Precautions NA Height and Weight Body Mass Index (BMI) 23.8 23.8 BMI Classification Normal Normal Vital Signs Temperature (97.8 F-99.1 F) 96.7 F L 97.2 F L Temperature Source Temporal Temporal Pulse Rate (60-100) 76 75 Pulse Location Monitor Respiratory Rate (12-18) 18 Blood Pressure (90/60-120/80) 147/87 H 139/65 H Blood Pressure Mean 107 89 Source Monitor Position Semi-Fowlers Blood Pressure Location Right Arm History Since Last Visit- (Skip if this is Patient's initial visit) Have you changed medications since your No No last visit? Any new allergies or adverse reactions No No Had a fall/change in ADL's that may No No increase risk of falls Signs or symptoms of abuse and/or No No neglect since last visit Have you been in the hospital since your No No last visit? Has dressing in place as prescribed Yes Yes Has compression in place as prescribed N/A N/A Has offloadiing in place as prescribed N/A N/A Experienced any changes in pain level or No No management Left Footwear Regular Shoe Right Footwear Regular Shoe Pain Scale: 0-10 Numeric Is Patient Pain Free? Yes Yes WC - Nurse 1 - General Ulcer Measurement Start: 10/14/20 09:04 Freq: Status: Active Protocol: Activity Type Activity Date Activity User E-Sign Co-Sign Detail Recorded Client Recorded Date Recorded By Document 10/14/20 09:04 KR [id number] 10/14/20 09:05 KR Document 10/28/20 09:24 PL [id number] 10/28/20 09:29 PL 10/14/20 10/28/20 09:04 09:24 Wound Center Nurse 1 #2 left medial ankle -Current Size (cm) - Length 1.1 0.1 -Current Size (cm) - Width 1.7 0.1 -Current Size (cm) - Depth 0.1 0.1 -Total Square Cm 1.87 0.01 -Photo Taken No -Epithelialization None Present -Tunneling No -Undermining/Tunneling No -Circular Undermining No -Exudate Amt Small Medium -Exudate Type Serosanguineous Serosanguineous -Wound Margin Distinct, Outline Attached -Granulation Amt Large (67-100%) Large (67-100%) -Granulation Quality [place] -Slough/Fibrin Yes -Necrosis Amt Small (1-33%) Small (1-33%) -Necrotic Tissue Type Adherent Slough Adherent Slough -Texture (Corine-wound Skin Appearance) Assessed, No Abnormality Scarring -Moisture (Corine-wound Skin Appearance) No Abnormality, No Abnormality Assessed -Color (Corine-wound Skin Appearance) No Abnormality, No Abnormality Assessed -Temperature (Corine-wound Skin No Abnormality No Abnormality Appearance) (Pt Warm) (Pt Warm) -Tenderness on Palpation (Corine-wound No Skin Appearance) -Ulcer Cleansing Rinsed/ Rinsed/ Irrigated with Irrigated with Saline Saline -Foul Odor after Cleansing No -Anesthetic Used 5% Lidocaine 5% Lidocaine Gel Gel HEELN - Nurse 2 - General Ulcer CM Notes Start: 10/14/20 09:04 Freq: Status: Active Protocol: Activity Type Activity Date Activity User E-Sign Co-Sign Detail Recorded Client Recorded Date Recorded By Document 10/14/20 12:33 PL [id number] 10/14/20 12:37 PL Document 10/28/20 12:16 PL [id number] 10/28/20 12:36 PL 10/14/20 10/28/20 12:33 12:16 Wound Center Nurse 2 #2 left medial ankle -Time 09:15 09:47 -Correct Patient Yes Yes -Correct Side, Site, Position Yes Yes -Correct Procedure Yes Yes -Procedure Performed Yes Yes -Type of Procedure Debridement Debridement -Clinical Debridement Subcutaneous Subcutaneous -Tissue Removed Subcutaneous Subcutaneous -Post Debridement (cm) - Length 1.1 0.1 -Post Debridement (cm) - Width 1.7 0.1 -Post Debridement (cm) - Depth 0.1 0.1 -Total Square (Post) (cm) 1.87 0.01 -Area of Debridement (cm) - Length 1.1 0.1 -Area of Debridement (cm) - Width 1.7 0.1 -Total Square (Area) (cm) 1.87 0.01 -Tunneling No No -Undermining/Tunneling No No -Circular Undermining No No -Wound/Ulcer Outcome Not Healed Not Healed -Ulcer Cleansing Rinsed/ Rinsed/ Irrigated with Irrigated with Saline Saline -Foul Odor after Cleansing No No -Bioengineered Tissue No No -Debridement - Subq, 1st 20sq cm Yes Yes Pain Scale: 0-10 Numeric Is Patient Pain Free? Yes Yes HLEEN - Nurse 3 - General Ulcer D/C NN Start: 10/14/20 09:04 Freq: Status: Active Protocol: Activity Type Activity Date Activity User E-Sign Co-Sign Detail Recorded Client Recorded Date Recorded By Document 10/14/20 12:33 PL [id number] 10/14/20 12:37 PL Document 10/28/20 12:16 PL [id number] 10/28/20 12:36 PL 10/14/20 10/28/20 12:33 12:16 Pain Scale: 0-10 Numeric Is Patient Pain Free? Yes Yes Teaching: Wound Center Control Swelling with Leg Elevation -Person Taught Patient,Family -Teaching Method Discussion -Response to teaching Verbalize understanding, Reinforcement needed Wound Care Nurse 3 #2 left medial ankle -Ulcer Cleansing Rinsed/ Rinsed/ Irrigated with Irrigated with Saline Saline -Foul Odor after Cleansing No No -Other Dressing Hydrogel -Primary Dressing Covered/Secured with Dry Gauze, Dry Gauze, Secured with Secured with Tape Tape WC - Visit Discharge Discharge Condition Stable Stable Ambulatory Status Ambulatory Ambulatory Transportation Private [facility] Clinical Summary of Care Provided Yes Yes Assessment/Plan Assessment/Plan (1) 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: CODE(S): I87.039 - 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 (2) Chronic venous insufficiency: (3) Venous hypertension, chronic, with ulcer and inflammation: CODE(S): I87.339 - Chronic venous hypertension (idiopathic) with ulcer and inflammation of unspecified lower extremity QUALIFIERS: Laterality: left Qualified Code(s): L97.929 - Non- pressure chronic ulcer of unspecified part of left lower leg with unspecified severity (4) Varicose veins with ulcer and inflammation: CODE(S): I83.209 - Varicose veins of unspecified lower extremity with both ulcer of unspecified site and inflammation; L97.909 - Non-pressure chronic ulcer of unspecified part of unspecified lower leg with unspecified severity (5) Ulcer of ankle: (6) Gout: CODE(S): M10.9 - Gout, unspecified (7) Emphysema of lung: CODE(S): J43.9 - Emphysema, unspecified (8) Tobacco abuse: CODE(S): Z72.0 - Tobacco use (9) Swelling of lower limb: CODE(S): M79.89 - Other specified soft tissue disorders (10) Postphlebitic syndrome with ulcer, left: CODE(S): I87.012 - 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 (11) History of superficial thrombophlebitis: (12) Prostatism: CODE(S): N40.0 - Benign prostatic hyperplasia without lower urinary tract symptoms (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 His surgery was uneventful. There has been some improvement with respect to the ulceration near the left medial malleolus. There are signs of epithelialization. No significant swelling or edema are noted in the patient's left lower extremity presently. The patient has been previously advised to apply compression to his left lower extremity daily, upon awakening each morning, and until retiring to bed each night. There is a question as to whether the patient has been entirely compliant with this recommendation. Furthermore, the patient has been advised to elevate his lower extremities as much as possible, even during daytime hours. As has been described to the patient, elevation is to be to heart level, or higher. The patient himself has insisted at each visit that he is complying with these recommendations. The patient's , who has frequently accompanied him, often gestures in dissent, suggesting that the patient may not be adhering to recommendations. Recommendations have included leg elevation, avoidance of idle standing and sitting, and compression. The patient is to be wearing his graduated compression stockings, which are of 20 to 30 mmHg compression. The patient has also been advised of the benefits of ambulation, which is encouraged. We are to continue compression to the left lower extremity from the base of the toes to the knee. The patient has been encouraged to use his graduated compression stockings, previously prescribed, which are of known compression, administering 20 to 30 mmHg. The patient once again has multiple complaints, as in prior weeks. He expresses concern about the protruding vein from the groin to the ankle. There is no visible abnormality in this area. As has been explained to the patient today, and in the past, ablation initiates an inflammatory reaction, and is likely that he is palpating the firm cord which represents the former great saphenous vein or duplicate great saphenous vein which has been recently ablated. It would be anticipated that the firm, palpable cord would soften over the ensuing weeks and months. The patient also complains that it is sore in the distribution of the ablated left great saphenous vein and left small saphenous vein. It is felt that this is not of concern, and represents a normal sequela of the thermal ablation process. In general, the patient appears to be tolerating the discomfort reasonably well, t carmelita on occasion it creates difficulties in falling asleep. The suspected reasons for the patient's complaints have been thoroughly explained today, and the patient has actually expressed his appreciation for having been enlightened as to the reasons for the discomfort in the palpable firmness in his left leg. Whereas the patient had appeared somewhat upset in weeks past, his temperament today is much more calm and reasoned. There appears to be no obvious pathological cause or etiology for his complaints. Two recent venous duplex examinations have revealed no evidence of deep vein thrombosis or other unexpected abnormalities. The thermally ablated veins appear to have been successfully ablated. He also indicates that he has pain at the site of his ulceration, which is not unexpected. The patient's pain is felt to be within the realm of expected normal. However, there are several possible causes. The thermal effect of the procedure, performed on September 18, 2020, could be a contrib uting cause, and would be expected to decrease in intensity over time. It may well be that the ulcer itself is a source of the patient's discomfort. Finally, there may be a neuralgia related to the saphenous nerve, resulting from the thermal ablation of the left great saphenous vein below the knee at the time of the patient's recent procedure. We have discussed referral to a shipyard painter apprentice. To this end, I have spoken with a local environmental compliance specialist, Dr. Fab Castañeda. I have explained the situation and the patient's recent medical history. Dr. Castañeda has agreed to see the patient in consultation and the patient has an appointment for November 10, 2020. The patient's medical records have been forwarded to Dr. Castañeda's office. Dr. Castañeda's contact information is as follows: [address] [place] [address], [address] [address]; office phone ; fax . Due to concerns about maceration of the tissue surrounding the ulceration, we are to transition to the use of a dry gauze pressure stasis pad overlying the ulceration, which will be applied topically on a daily basis, and will be positioned under the patient's compression stocking. The patient is to return in 1 week for reassessment. Total time: 29 minutes.
[2020-11-04 09:04] VITALS: BP 133/78; PULSE 81; RESP 16; TEMP 36.2; BMI 23.8
--- NOTE | 2020-11-04 09:57 | HP.PCM_ITS ---
History of Present Illness Date of Service: 11/04/20 Chief Complaint: Ulceration, left medial malleolus History of Wound: This is an 85-year-old male with a longstanding history of chronic venous disease. He was previously treated at the [facility] in 2016 relative to a venous ulceration near the left medial malleolus. He was treated by conservative means, and his ulcer was ultimately healed. The patient has presented again with a new ulceration near the left medial malleolus, though it is slightly more distal in location. The ulceration had been present for approximately 6 weeks at the time of the patient's initial presentation. A venous duplex examination performed on March 20, 2020, revealed incompetence of the left great saphenous vein, a duplicate left great saphenous vein, and the left small saphenous vein. The patient had been implementing conservative treatment measures for many years, including leg elevation, avoidance of idle standing and sitting, use of graduated compression stockings of at least 20 to 30 mmHg compression, active lifestyle, weight control measures, and the use of [id number] anti- inflammatory medications as needed. Despite these measures, the ulceration near the left medial malleolus recurred, and the patient was advised to redouble his efforts at implementing conservative treatment measures. The patient has had several ulcerations in this area previously. He also has a history of superficial thrombophlebitis in the left lower extremity in the past. He suffers from chronic swelling and edema in both lower extremities, which is most prominent at the end of the day. He sleeps on a flat surface at night. He claims to be active. 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 Restless legs Shortness of breath on exertion Smoker Wears glasses Wears hearing aid in both ears Home Medications budesonide-formoterol [Symbicort] 2 puff INHALATION BID 06/02/16 [History Last Taken 06/08/16 06:00 2 PUFF] amlodipine 5 mg PO DAILY 04/26/20 [History Last Taken Unknown] colchicine 0.6 mg PO DAILY PRN 09/11/20 [History Last Taken Unknown] multivitamin 1 tab PO DAILY 09/11/20 [History Last Taken Unknown] omeprazole 20 mg PO PRN PRN 09/11/20 [History Last Taken Unknown] oxycodone-acetaminophen [Percocet] 1 - 2 tab PO Q8H PRN 4 Days #14 tab 09/18/20 [Rx Last Taken Unknown] Allergy/AdvReac Type Severity Reaction Status Date / Time ibuprofen [From Motrin] Allergy Swelling Verified 09/11/20 14:01 Surgical History History of cystoscopy History of esophagogastroduodenoscopy (EGD) History of parotidectomy Hx of basal cell carcinoma excision Hx of decompressive lumbar laminectomy Hx of finger joint replacement Hx of myringotomy Social History household members: spouse Smoking Status: Current every day smoker Vital Signs Vital Signs Vital Signs: 11/04/20 09:04 Temperature 97.1 F L Temperature Source Temporal Pulse Rate 81 Respiratory Rate 16 Blood Pressure 133/78 H Blood Pressure Mean 96 Blood Pressure Source Monitor Blood Pressure Position Sitting Blood Pressure Location Left Arm Oxygen Delivery Method Room Air Weight Weight: 160 lb Body Mass Index (BMI) 23.8 Physical Exam Const alert, oriented x3, no apparent distress and well nourished General Appearance: cooperative, comfortable, well kempt and well developed Orientation / Consciousness: awake, oriented to person, oriented to place and oriented to time HEENT normocephalic and head/scalp atraumatic Head and Scalp: normal to inspection, normocephalic and atraumatic External Ear: external ears normal Eyes PERRL and EOMs intact bilaterally General Eye: normal appearance of both eyes Resp normal respiratory effort, normal air movement, no retractions and no use of accessory muscles Effort and Inspection: able to speak in complete sentences Extremity no calf tenderness Extremity Narrative: There is no significant swelling or edema in the patient's left lower extremity. General Extremity: Negative for clubbing or cyanosis Skin Wound Narrative: The venous ulceration near the left medial malleolus is now nearly healed. It is significantly smaller in size. Dimensions are documented elsewhere. There is some sloughing epithelium, which has been removed by means of debridement today. There is no significant drainage. There is no sign of infection or cellulitis. There is slight periulcer erythema, thought to be inflammatory in nature. Neuro oriented x3, CN's II-XII intact bilaterally and moves all extremities Sensorium / Orientation: alert, oriented to person, oriented to place and oriented to time Psych Appearance: grossly normal and appropriate Attitude: calm and engaged Activity / Motor Behavior: appropriate eye contact Speech: normal speech Mood & Affect: euthymic mood Thought Process: normal thought process Debridement Note Debridement Note Post-Debridement Measurements and Additional Note: Post-Debridement Measurements/Treatment - Nurse 1 - General Ulcer Assessment Start: 10/14/20 09:04 Freq: Status: Active Protocol: [email or web address] Activity Type Activity Date Activity User E-Sign Co-Sign Detail Recorded Client Recorded Date Recorded By Document 10/14/20 09:04 KR [id number] 10/14/20 09:05 KR Document 10/28/20 09:24 PL [id number] 10/28/20 09:29 PL Document 11/04/20 09:04 MW [id number] 11/04/20 09:07 MW 10/14/20 10/28/20 11/04/20 09:04 09:24 09:04 - Today's Visit Information Type of service Follow-up Visit Follow-up Visit Follow-up Visit (Physician/GUIDE RAIL CLEANER (Physician/GUIDE RAIL CLEANER (Physician/GUIDE RAIL CLEANER ) ) ) Arrival Mode Ambulatory Ambulatory Ambulatory Transfer Assistance None None Accompanied by self Patient Identification Verified (Name & Yes Yes Yes ) Patient Requires Transmission-Based No No Precautions Safety Precautions NA NA Height and Weight Body Mass Index (BMI) 23.8 23.8 23.8 BMI Classification Normal Normal Normal Vital Signs Temperature (97.8 F-99.1 F) 96.7 F L 97.2 F L 97.1 F L Temperature Source Temporal Temporal Temporal Pulse Rate (60-100) 76 75 81 Pulse Location Monitor Monitor Respiratory Rate (12-18) 18 16 Respiratory rate source Observation Oxygen Delivery Method Room Air Blood Pressure (90/60-120/80) 147/87 H 139/65 H 133/78 H Blood Pressure Mean 107 89 96 Source Monitor Monitor Position Semi-Fowlers Sitting Blood Pressure Location Right Arm Left Arm History Since Last Visit- (Skip if this is Patient's initial visit) Have you changed medications since your No No No last visit? Any new allergies or adverse reactions No No No Had a fall/change in ADL's that may No No No increase risk of falls Signs or symptoms of abuse and/or No No No neglect since last visit Have you been in the hospital since your No No No last visit? Has dressing in place as prescribed Yes Yes Yes Has compression in place as prescribed N/A N/A No Has offloadiing in place as prescribed N/A N/A N/A Experienced any changes in pain level or No No No management Left Footwear Regular Shoe Regular Shoe Right Footwear Regular Shoe Regular Shoe Pain Scale: 0-10 Numeric Is Patient Pain Free? Yes Yes No WC - Nurse 1 - General Ulcer Measurement Start: 10/14/20 09:04 Freq: Status: Active Protocol: Activity Type Activity Date Activity User E-Sign Co-Sign Detail Recorded Client Recorded Date Recorded By Document 10/14/20 09:04 KR [id number] 10/14/20 09:05 KR Document 10/28/20 09:24 PL [id number] 10/28/20 09:29 PL Document 11/04/20 09:04 MW [id number] 11/04/20 09:07 MW 10/14/20 10/28/20 11/04/20 09:04 09:24 09:04 Wound Center Nurse 1 #2 left medial ankle -Combined with other wound No -Current Size (cm) - Length 1.1 0.1 0.1 -Current Size (cm) - Width 1.7 0.1 0.1 -Current Size (cm) - Depth 0.1 0.1 0.1 -Total Square Cm 1.87 0.01 0.01 -Photo Taken No No -Epithelialization None Present Large 67-100% -Tunneling No No -Undermining/Tunneling No No -Circular Undermining No No -Exudate Amt Small Medium None Present -Exudate Type Serosanguineous Serosanguineous -Wound Margin Distinct, Flat & Intact Outline Attached -Granulation Amt Large (67-100%) Large (67-100%) None Present (0 %) -Granulation Quality [place] N/A -Slough/Fibrin Yes Yes -Necrosis Amt Small (1-33%) Small (1-33%) Small (1-33%) -Necrotic Tissue Type Adherent Slough Adherent Slough Adherent Slough -Structure Exposed N/A -Texture (Corine-wound Skin Appearance) Assessed, No Abnormality Assessed, Scarring Localized Edema ,Scarring -Moisture (Corine-wound Skin Appearance) No Abnormality, No Abnormality Assessed,Dry/ Assessed Scaly -Color (Corine-wound Skin Appearance) No Abnormality, No Abnormality Assessed, Assessed Hemosiderin Staining -Temperature (Corine-wound Skin No Abnormality No Abnormality No Abnormality Appearance) (Pt Warm) (Pt Warm) (Pt Warm) -Tenderness on Palpation (Corine-wound No Yes Skin Appearance) -Ulcer Cleansing Rinsed/ Rinsed/ Rinsed/ Irrigated with Irrigated with Irrigated with Saline Saline Saline -Foul Odor after Cleansing No No -Anesthetic Used 5% Lidocaine 5% Lidocaine 4% Lidocaine Gel Gel Solution Lower Limb Edema Present No Left Calf (cm) 34.7 Left Ankle (cm) 22.0 WC - Nurse 2 - General Ulcer CM Notes Start: 10/14/20 09:04 Freq: Status: Active Protocol: Activity Type Activity Date Activity User E-Sign Co-Sign Detail Recorded Client Recorded Date Recorded By Document 10/14/20 12:33 PL [id number] 10/14/20 12:37 PL Document 10/28/20 12:16 PL [id number] 10/28/20 12:36 PL Edit Result 10/28/20 12:16 PL (1) [id number] 10/29/20 07:03 PL (1) #2 left medial ankle - Correct Patient Yes => - Correct Side, Site, Position Yes => - Correct Procedure Yes => - Procedure Performed Yes => No - Type of Procedure Debridement => - Clinical Debridement Subcutaneous => - Tissue Removed Subcutaneous => - Area of Debridement (cm) - Length 0.1 => - Area of Debridement (cm) - Width 0.1 => - Total Square (Area) (cm) 0.01 => - Debridement - Subq, 1st 20sq cm Yes => 10/14/20 10/28/20 12:33 12:16 Wound Center Nurse 2 #2 left medial ankle -Time 09:15 09:47 -Correct Patient Yes -Correct Side, Site, Position Yes -Correct Procedure Yes -Procedure Performed Yes No -Type of Procedure Debridement -Clinical Debridement Subcutaneous -Tissue Removed Subcutaneous -Post Debridement (cm) - Length 1.1 0.1 -Post Debridement (cm) - Width 1.7 0.1 -Post Debridement (cm) - Depth 0.1 0.1 -Total Square (Post) (cm) 1.87 0.01 -Area of Debridement (cm) - Length 1.1 -Area of Debridement (cm) - Width 1.7 -Total Square (Area) (cm) 1.87 -Tunneling No No -Undermining/Tunneling No No -Circular Undermining No No -Wound/Ulcer Outcome Not Healed Not Healed -Ulcer Cleansing Rinsed/ Rinsed/ Irrigated with Irrigated with Saline Saline -Foul Odor after Cleansing No No -Bioengineered Tissue No No -Debridement - Subq, 1st 20sq cm Yes Pain Scale: 0-10 Numeric Is Patient Pain Free? Yes Yes - Nurse 3 - General Ulcer D/C NN Start: 10/14/20 09:04 Freq: Status: Active Protocol: Activity Type Activity Date Activity User E-Sign Co-Sign Detail Recorded Client Recorded Date Recorded By Document 10/14/20 12:33 PL [id number] 10/14/20 12:37 PL Document 10/28/20 12:16 PL [id number] 10/28/20 12:36 PL 10/14/20 10/28/20 12:33 12:16 Pain Scale: 0-10 Numeric Is Patient Pain Free? Yes Yes Teaching: Wound Center Control Swelling with Leg Elevation -Person Taught Patient,Family -Teaching Method Discussion -Response to teaching Verbalize understanding, Reinforcement needed Wound Care Nurse 3 #2 left medial ankle -Ulcer Cleansing Rinsed/ Rinsed/ Irrigated with Irrigated with Saline Saline -Foul Odor after Cleansing No No -Other Dressing Hydrogel -Primary Dressing Covered/Secured with Dry Gauze, Dry Gauze, Secured with Secured with Tape Tape WC - Visit Discharge Discharge Condition Stable Stable Ambulatory Status Ambulatory Ambulatory Transportation Private [facility] Clinical Summary of Care Provided Yes Yes Wound debrided: Left medial malleolus Laterality: Left Type of Debridement: Selective debridement Anesthesia Used: 5% Lidocaine Gel Depth: Down to and including healthy tissue Percentage of wound debrided: 100 Instrument Used: 5mm curette Severity: Limited To Skin Breakdown Amount of bleeding with debridement: None Patient tolerated procedure: Patient tolerated procedure well Assessment/Plan Assessment/Plan (1) 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: CODE(S): I87.039 - 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 (2) Chronic venous insufficiency: (3) Venous hypertension, chronic, with ulcer and inflammation: CODE(S): I87.339 - Chronic venous hypertension (idiopathic) with ulcer and inflammation of unspecified lower extremity QUALIFIERS: Laterality: left Qualified Code(s): L97.929 - Non- pressure chronic ulcer of unspecified part of left lower leg with unspecified severity (4) Varicose veins with ulcer and inflammation: CODE(S): I83.209 - Varicose veins of unspecified lower extremity with both ulcer of unspecified site and inflammation; L97.909 - Non-pressure chronic ulcer of unspecified part of unspecified lower leg with unspecified severity (5) Ulcer of ankle: (6) Gout: CODE(S): M10.9 - Gout, unspecified (7) Emphysema of lung: CODE(S): J43.9 - Emphysema, unspecified (8) Tobacco abuse: CODE(S): Z72.0 - Tobacco use (9) Swelling of lower limb: CODE(S): M79.89 - Other specified soft tissue disorders (10) Postphlebitic syndrome with ulcer, left: CODE(S): I87.012 - 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 (11) History of superficial thrombophlebitis: (12) Prostatism: CODE(S): N40.0 - Benign prostatic hyperplasia without lower urinary tract symptoms (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 His surgery was uneventful. There has been improvement with respect to the ulceration near the left medial malleolus within the last week. There are signs of epithelialization. No significant swelling or edema are noted in the patient's left lower extremity presently. The patient has been advised to apply compression to his left lower extremity daily, upon awakening each morning, and until retiring to bed each night. Furthermore, the patient has been advised to elevate his lower extremities as much as possible, even during daytime hours. As has been described to the patient, elevation is to be to heart level, or higher. Recommendations have included leg elevation, avoidance of idle standing and sitting, and compression. The patient is to be wearing his graduated compression stockings, which are of 20 to 30 mmHg compression. The patient has also been advised of the benefits of ambulation, which is encouraged. We are to continue compression to the left lower extremity from the base of the toes to the knee. The patient has been encouraged to use his graduated compression stockings, previously prescribed, which are of known compression, administering 20 to 30 mmHg. The patient has no complaints today, and actually is quite complementary. He offers that I am getting better. He indicates that he is experiencing much less discomfort and pain. What pain he is experiencing is now only localized to the area of his ulceration. He also indicates that he is now sleeping quite well at night. The patient's demeanor is friendly and affable, a change as compared to several weeks ago. In general, the patient appears to be progressing both clinically and symptomatically. Continued progress as anticipated, if the patient continues to implement the conservative treatment measures which have been recommended. At this juncture, his left lower extremity venous ulceration is now nearly completely healed. The patient is to return in 2 weeks for reassessment. Is to continue using a dry gauze stasis pad to the area of his ulceration. The patient has an appointment with Dr. Gera Castañeda, marine painter, on November 10, 2020. The patient's medical records have been forwarded to Dr. Castañeda's office. Dr. Castañeda's contact information is as follows: [facility], [address] [address]; office phone ; fax . The patient has indicated that he may consider canceling his appointment, which may be appropriate, if the patient remains devoid of significant pain. The patient is to return in 2 weeks for reassessment. Total time: 28 minutes.
== END 2020-11-12 23:59 ==
LOC: WC 09:00
PROVIDERS: PCP Family Medicine; Referring Provider Family Medicine; Visit Provider Surgery
DX: I83.223 Varicose veins of left lower extremity with both ulcer of ankle and inflammation (principal); L97.322 Non-pressure chronic ulcer of left ankle with fat layer exposed; I10 Essential (primary) hypertension; J43.9 Emphysema, unspecified; F17.200 Nicotine dependence, unspecified, uncomplicated; G25.81 Restless legs syndrome; F10.10 Alcohol abuse, uncomplicated; Z79.899 Other long term (current) drug therapy; M79.89 Other specified soft tissue disorders
CPT/HCPCS: 11042; 97597

== ENCOUNTER → 2020-11-06 13:56 | Outpatient (CLI) | payer MEDICARE, SELFPAY ==
[2020-11-04 09:04] VITALS: BMI 23.8
[2020-11-06 17:25] LABS: Hematocrit 37.5 % (40-54); Hemoglobin 11.9 g/dL (13.0-16.5); Mean Corp Hgb Conc 31.7 g/dL (32-36); Mean Corpuscular Hgb 29.2 pg (27.0-32.0); Mean Corpuscular Volume 92.1 fL (80-94); Platelet Count 248 K/mm3 (150-450); RBC Distribution Width CV 16.4 % (11.6-14.6); RBC Distribution Width SD 55.6 fl (35.1-43.9); Red Blood Count 4.07 M/mm3 (4.6-6.2); White Blood Count 5.8 K/mm3 (4.4-11.0)
[2020-11-06 17:59] LABS: Anion Gap 4 (5-15); BUN 25 mg/dL (7-18); BUN/Creat Ratio 19.4 RATIO (10-20); Calcium,Total 8.8 mg/dL (8.5-10.1); Chloride 109 mmol/L (98-107); Creatinine, Serum 1.29 mg/dL (0.70-1.30); EST Glomerular Filtration Rate 57 mL/min (>60); Est Glom Filt Rate - Afr Amer 68 mL/min (>60); Glucose 84 mg/dL (74-106); Potassium 4.5 mmol/L (3.5-5.1); Sodium Level 140 mmol/L (136-145)
== END ==
PROVIDERS: PCP Family Medicine; Visit Provider Otolaryngology
DX: Z01.818 Encounter for other preprocedural examination (principal)
CPT/HCPCS: 36415; 80048; 85027

== ENCOUNTER 2020-11-18 09:00 | Outpatient (RCR) | payer MEDICARE, SELFPAY ==
[2020-11-13 00:22] VITALS: BP 133/78; PULSE 81; RESP 16; TEMP 36.2
[2020-11-18 08:58] VITALS: BP 148/83; PULSE 76; RESP 16; TEMP 36.3; BMI 23.8
--- NOTE | 2020-11-18 09:25 | PCM.WC.HP ---
History of Present Illness Date of Service: 11/18/20 Chief Complaint: Ulceration, left medial malleolus History of Wound: This is an 85-year-old male with a longstanding history of chronic venous disease. He was previously treated at the [facility] in 2016 relative to a venous ulceration near the left medial malleolus. He was treated by conservative means, and his ulcer was ultimately healed. The patient has presented again with a new ulceration near the left medial malleolus, though it is slightly more distal in location. The ulceration had been present for approximately 6 weeks at the time of the patient's initial presentation. A venous duplex examination performed on March 20, 2020, revealed incompetence of the left great saphenous vein, a duplicate left great saphenous vein, and the left small saphenous vein. The patient had been implementing conservative treatment measures for many years, including leg elevation, avoidance of idle standing and sitting, use of graduated compression stockings of at least 20 to 30 mmHg compression, active lifestyle, weight control measures, and the use of [id number] anti-inflammatory medications as needed. Despite these measures, the ulceration near the left medial malleolus recurred, and the patient was advised to redouble his efforts at implementing conservative treatment measures. The patient has had several ulcerations in this area previously. He also has a history of superficial thrombophlebitis in the left lower extremity in the past. He suffers from chronic swelling and edema in both lower extremities, which is most prominent at the end of the day. He sleeps on a flat surface at night. He claims to be active. 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 Restless legs Shortness of breath on exertion Smoker Wears glasses Wears hearing aid in both ears Home Medications budesonide-formoterol [Symbicort] 2 puff INHALATION BID 06/02/16 [History Last Taken 06/08/16 06:00 2 PUFF] amlodipine 5 mg PO DAILY 04/26/20 [History Last Taken Unknown] colchicine 0.6 mg PO DAILY PRN 09/11/20 [History Last Taken Unknown] multivitamin 1 tab PO DAILY 09/11/20 [History Last Taken Unknown] omeprazole 20 mg PO PRN PRN 09/11/20 [History Last Taken Unknown] oxycodone-acetaminophen [Percocet] 1 - 2 tab PO Q8H PRN 4 Days #14 tab 09/18/20 [Rx Last Taken Unknown] Allergy/AdvReac Type Severity Reaction Status Date / Time ibuprofen [From Motrin] Allergy Swelling Verified 09/11/20 14:01 Surgical History History of cystoscopy History of esophagogastroduodenoscopy (EGD) History of parotidectomy Hx of basal cell carcinoma excision Hx of decompressive lumbar laminectomy Hx of finger joint replacement Hx of myringotomy Social History household members: spouse Smoking Status: Current every day smoker Vital Signs Vital Signs Vital Signs: 11/18/20 08:58 Temperature 97.4 F L Temperature Source Temporal Pulse Rate 76 Respiratory Rate 16 Blood Pressure 148/83 H Blood Pressure Mean 104 Blood Pressure Source Monitor Blood Pressure Position Sitting Blood Pressure Location Left Arm Oxygen Delivery Method Room Air Weight Weight: 160 lb Body Mass Index (BMI) 23.8 Physical Exam Const alert, oriented x3, no apparent distress and well nourished General Appearance: cooperative, comfortable, well kempt and well developed Orientation / Consciousness: awake, oriented to person, oriented to place and oriented to time HEENT normocephalic and head/scalp atraumatic Head and Scalp: normal to inspection, normocephalic and atraumatic External Ear: external ears normal Eyes PERRL and EOMs intact bilaterally Resp normal respiratory effort, normal air movement, no retractions and no use of accessory muscles Effort and Inspection: able to speak in complete sentences Extremity no clubbing, cyanosis or edema and no calf tenderness General Extremity: Negative for clubbing or cyanosis Skin Wound Narrative: The ulceration near the left medial malleolus is now completely healed and epithelialized. There is some mild scaly dermatitis and inflammatory erythema, not unexpected as related to chronic venous disease. 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: CODE(S): I87.039 - 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 (2) Chronic venous insufficiency: (3) Venous hypertension, chronic, with ulcer and inflammation: CODE(S): I87.339 - Chronic venous hypertension (idiopathic) with ulcer and inflammation of unspecified lower extremity QUALIFIERS: Laterality: left Qualified Code(s): L97.929 - Non-pressure chronic ulcer of unspecified part of left lower leg with unspecified severity (4) Varicose veins with ulcer and inflammation: CODE(S): I83.209 - Varicose veins of unspecified lower extremity with both ulcer of unspecified site and inflammation; L97.909 - Non-pressure chronic ulcer of unspecified part of unspecified lower leg with unspecified severity (5) Ulcer of ankle: (6) Emphysema of lung: CODE(S): J43.9 - Emphysema, unspecified (7) Tobacco abuse: CODE(S): Z72.0 - Tobacco use (8) Swelling of lower limb: CODE(S): M79.89 - Other specified soft tissue disorders (9) Postphlebitic syndrome with ulcer, left: CODE(S): I87.012 - 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 (10) History of superficial thrombophlebitis: (11) Prostatism: CODE(S): N40.0 - Benign prostatic hyperplasia without lower urinary tract symptoms (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 His surgery was uneventful. His venous ulcer near the left medial malleolus is now completely healed and epithelialized. It appears as though the venous ablation procedure performed in his left lower extremity has expedited the patient's wound healing process, such that his venous ulceration is now completely healed and epithelialized. The patient is to be discharged. He has been encouraged to continue implementing the conservative treatment measures which have been thoroughly explained on multiple occasions. These include leg elevation is much as possible, avoidance of idle standing and sitting, daily wearing of graduated compression stockings, active lifestyle, and weight optimization. Patient has been encouraged to apply skin moisturizing lotion periodically to the scaly, dermatitic areas near the left medial malleolus. Is to follow-up henceforth on an as-needed basis. His demeanor today was very pleasant and affable. He appears quite pleased with his progress, and the fact that he is now completely healed. He was recently evaluated by Dr. Castañeda, account management specialist. He had been referred due to pain in his left lower extremity which was thought to be possibly secondary to thermal effects from his recent venous ablation procedure. However, the pain in his left lower extremity has become so minor and insignificant, that the patient discussed his chronic back pain with Dr. Castañeda, and Dr. Castañeda's focus henceforth is to be with regard to the patient's back pain and associated manifestations. In fact, with respect to the patient's left lower extremity status, the patient claims that he is doing excellent. The patient is now completely healed, and will follow-up henceforth on an as-needed basis. Total time: 29 minutes.
== END 2020-11-18 09:20 | disposition home or self-care (01) ==
LOC: WC 09:00
PROVIDERS: PCP Family Medicine; Referring Provider Family Medicine; Visit Provider Surgery
DX: Z09 Encounter for follow-up examination after completed treatment for conditions other than malignant neoplasm (principal); M79.89 Other specified soft tissue disorders; R60.0 Localized edema; F17.200 Nicotine dependence, unspecified, uncomplicated; I10 Essential (primary) hypertension; J43.9 Emphysema, unspecified; Z79.899 Other long term (current) drug therapy; I87.2 Venous insufficiency (chronic) (peripheral); N40.0 Benign prostatic hyperplasia without lower urinary tract symptoms
CPT/HCPCS: 99213; G0463

== ENCOUNTER → 2020-11-21 | Outpatient (CLI) | payer MEDICARE, SELFPAY ==
[2020-11-18 08:58] VITALS: BMI 23.8
== END | disposition home or self-care (01) ==
LOC: LABSPEC 15:46
PROVIDERS: PCP Family Medicine; Visit Provider Otolaryngology
DX: H92.10 Otorrhea, unspecified ear (principal)
CPT/HCPCS: 87070; 87075; 87077; 87186; 87205

== ENCOUNTER 2021-06-09 10:15 | Outpatient (RCR) | payer MEDICARE, SELFPAY ==
[2021-05-26 10:21] VITALS: BP 132/76; PULSE 86; RESP 20; TEMP 36.3; BMI 24.4
--- NOTE | 2021-05-26 14:31 | HP.PCM_ITS ---
History of Present Illness Date of Service: 05/26/21 Chief Complaint: Ulceration, left medial malleolus History of Wound: This is an 85-year-old male with a longstanding history of chronic venous disease. He has been previously treated on several occasions in the [facility] for an ulceration located overlying the left medial malleolus, and returns at this time with a recurrence. He has been treated by conservative means in the past, resulting in successful healing. On September 19, 2020, the patient underwent endovenous laser ablation of the left great saphenous vein, duplicate left great saphenous vein, and the left small saphenous vein. A venous duplex examination performed 1 week later revealed a satisfactory and successful result. This resulted in successful healing of his left lower extremity venous ulceration, and he was subsequently discharged on November 18, 2020, with instructions to continue with leg elevation, avoidance of idle standing and sitting, maintaining an active lifestyle, maintaining optimal weight, and wearing graduated compression stockings of at least 20 to 30 mmHg compression on a daily basis. The patient sleeps on a flat mattress at night. He is also active during daytime hours. However, he has been relatively noncompliant and elevating his lower extremities, as advised. He has not been wearing his graduated compression stockings routinely, as had been recommended. An ulcer recurred near the left medial malleolus merced roximately 2 months ago he has been using collagenase Santyl topically, without resultant healing. He continues to smoke cigarettes, despite medical advice to the contrary. The patient has a history of superficial thrombophlebitis in the left lower extremity in the past. He suffers from chronic swelling and edema in both lower extremities, which is most prominent at the end of the day. 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 Restless legs Shortness of breath on exertion Smoker Wears glasses Wears hearing aid in both ears Home Medications budesonide-formoterol [Symbicort] 2 puff INHALATION BID 06/02/16 [History Last Taken 06/08/16 06:00 2 PUFF] amlodipine 5 mg PO DAILY 04/26/20 [History Last Taken Unknown] oxycodone-acetaminophen [Percocet] 1 - 2 tab PO Q8H PRN 4 Days #14 tab 09/18/20 [Rx Last Taken Unknown] Allergy/AdvReac Type Severity Reaction Status Date / Time ibuprofen [From Motrin] Allergy Swelling Verified 05/26/21 10:36 Surgical History History of cystoscopy History of esophagogastroduodenoscopy (EGD) History of parotidectomy Hx of basal cell carcinoma excision Hx of decompressive lumbar laminectomy Hx of finger joint replacement Hx of myringotomy Social History household members: spouse Smoking Status: Current every day smoker Vital Signs Vital Signs Vital Signs: 05/26/21 10:21 Temperature 97.4 F L Temperature Source Temporal Pulse Rate 86 Respiratory Rate 20 H Blood Pressure 132/76 H Blood Pressure Mean 94 Weight Weight: 160 lb 11.834 oz Body Mass Index (BMI) 24.4 Physical Exam Const alert, oriented x3, no apparent distress and well nourished Constitutional Narrative: The patient is of relatively normal body habitus. He is alert, pleasant, and conversant. General Appearance: cooperative and well developed Orientation / Consciousness: awake, oriented to person, oriented to place and oriented to time HEENT normocephalic and head/scalp atraumatic Head and Scalp: normal to inspection, normocephalic and atraumatic External Ear: external ears normal Eyes PERRL and EOMs intact bilaterally General Eye: normal appearance of both eyes Resp normal respiratory effort, normal air movement, no retractions and no use of accessory muscles Effort and Inspection: able to speak in complete sentences Extremity no calf tenderness General Extremity: Negative for clubbing or cyanosis Skin Wound Narrative: An ulceration is noted overlying the left medial malleolus. There is no sign of infection or cellulitis. There is a moderate amount of bio burden. Dimensions are documented elsewhere. Neuro oriented x3, CN's II-XII intact bilaterally and moves all extremities Sensorium / Orientation: awake, alert, oriented to person, oriented to place and oriented to time Psych Appearance: grossly normal and appropriate Attitude: calm Activity / Motor Behavior: appropriate eye contact Speech: normal speech Mood & Affect: euthymic mood Thought Process: normal thought process Thought Content: normal thought content Attention / Concentration: attention grossly intact Debridement Note Debridement Note Wound debrided: Left medial malleolus Laterality: Left Type of Debridement: Excisional debridement Anesthesia Used: 5% Lidocaine Gel Depth: Down to and including healthy tissue Percentage of wound debrided: 100 Instrument Used: 5mm curette Tissue Removed: Bioburden Severity: Fat Layer Exposed Amount of bleeding with debridement: Mild Bleeding Controlled with: Compression and gauze Patient tolerated procedure: Patient tolerated procedure well Post-Debridement Measurements and Additional Note: Post-Debridement Measurements/Treatment - Nurse 1 - General Ulcer Assessment Start: 05/26/21 10:21 Freq: Status: Active Protocol: DENISE Activity Type Activity Date Activity User E-Sign Co-Sign Detail Recorded Client Recorded Date Recorded By Document 05/26/21 10:21 DL [id number] 05/26/21 10:31 DL 05/26/21 10:21 WC - Today's Visit Information Type of service Initial Visit Arrival Mode Ambulatory Transfer Assistance None Patient Identification Verified (Name & Yes ) Patient Requires Transmission-Based No Precautions Height and Weight Height 5 ft 8 in Weight 160 lb 11.834 oz Weight in Pounds 160.7 lbs Body Mass Index (BMI) 24.4 BMI Classification Normal BSA - Kerry 1.86 Vital Signs Temperature (97.8 F-99.1 F) 97.4 F L Temperature Source Temporal Pulse Rate (60-100) 86 Pulse Location Monitor Respiratory Rate (12-18) 20 H Respiratory rate source Observation Blood Pressure (90/60-120/80) 132/76 H Blood Pressure Mean 94 History Since Last Visit- (Skip if this is Patient's initial visit) Left Footwear Regular Shoe Right Footwear Regular Shoe Pain Scale: 0-10 Numeric Is Patient Pain Free? Yes Communication Assessment Preferred language [employer] [employer] Required No Able to Read Yes Able to Write Yes Communication Tools None Right Hearing Abillity Use of Hearing Aid Left Hearing Abillity Use of Hearing Aid Visual Assistive Devices Glasses Teaching Assessment Preferences Verbal,Written, Demonstration Barriers to Learning None Readiness To Learn Good Willingness to Engage in Self Management Med Activies Readiness to Engage in Self Management Med Activities Anxiety Level Calm Cooperation Cooperative Perception Coherent Interest in Health Problem Asks Questions Education Importance Acknowledges Need Does Patient Smoke tobacco or other Yes substances Smoking Status Current every day smoker Is Patient Diabetic No Functional Assessment Recent Decline in Ability to Perform Denies Any Declines Assistive Device With Patient N/A Teaching: Wound Center Control Swelling with Leg Elevation -Person Taught Patient *Nutrition -Person Taught Patient Dressing Your Wound -Person Taught Patient Discharge Instructions -Person Taught Patient *Welcome to the Wound Center -Person Taught Patient WC - Nurse 1 - General Ulcer Measurement Start: 05/26/21 10:21 Freq: Status: Active Protocol: Activity Type Activity Date Activity User E-Sign Co-Sign Detail Recorded Client Recorded Date Recorded By Document 05/26/21 10:21 DL [id number] 05/26/21 10:31 DL 05/26/21 10:21 Wound Center Nurse 1 #3 L Med Ankle -Current Size (cm) - Length 1.5 -Current Size (cm) - Width 5.5 -Current Size (cm) - Depth 0.1 -Total Square Cm 8.25 -Photo Taken Yes -Classification - Thickness Full Thickness without Exposed Support Structure -Exudate Amt Large -Exudate Type Serosanguineous -Wound Margin Indistinct, Non -Visible -Granulation Amt Large (67-100%) -Granulation Quality Red -Necrosis Amt Small (1-33%) -Necrotic Tissue Type Adherent Slough -Structure Exposed N/A -Texture (Corine-wound Skin Appearance) Excoriation, Rash -Moisture (Corine-wound Skin Appearance) Weeping -Color (Corine-wound Skin Appearance) Hemosiderin Staining -Temperature (Corine-wound Skin No Abnormality Appearance) (Pt Warm) -Tenderness on Palpation (Corine-wound Yes Skin Appearance) -Ulcer Cleansing Rinsed/ Irrigated with Saline -Anesthetic Used 4% Lidocaine Solution Right Calf (cm) 34.5 Right Ankle (cm) 21.5 Left Calf (cm) 35.5 Left Ankle (cm) 23 WC - Nurse 2 - General Ulcer CM Notes Start: 05/26/21 10:21 Freq: Status: Active Protocol: Activity Type Activity Date Activity User E-Sign Co-Sign Detail Recorded Client Recorded Date Recorded By Document 05/26/21 12:44 PL [id number] 05/26/21 12:45 PL 05/26/21 12:44 Wound Center Nurse 2 #3 L Med Ankle -Time 10:55 -Correct Patient Yes -Correct Side, Site, Position Yes -Correct Procedure Yes -Procedure Performed Yes -Type of Procedure Debridement -Clinical Debridement Subcutaneous -Tissue Removed Subcutaneous -Post Debridement (cm) - Length 1.5 -Post Debridement (cm) - Width 5.5 -Post Debridement (cm) - Depth 0.1 -Total Square (Post) (cm) 8.25 -Area of Debridement (cm) - Length 1.5 -Area of Debridement (cm) - Width 3.5 -Total Square (Area) (cm) 5.25 -Tunneling No -Undermining/Tunneling No -Circular Undermining No -Wound/Ulcer Outcome Not Healed -Ulcer Cleansing Rinsed/ Irrigated with Saline -Foul Odor after Cleansing No -Bioengineered Tissue No -Bleeding Controlled with Pressure -Treatment Response Procedure Tolerated Well -Debridement - Subq, 1st 20sq cm Yes Pain Scale: 0-10 Numeric Is Patient Pain Free? Yes - Nurse 3 - General Ulcer D/C NN Start: 05/26/21 10:21 Freq: Status: Active Protocol: Activity Type Activity Date Activity User E-Sign Co-Sign Detail Recorded Client Recorded Date Recorded By Document 05/26/21 11:06 DL [id number] 05/26/21 11:09 DL 05/26/21 11:06 Wound Care Nurse 3 #3 L Med Ankle -Ulcer Cleansing Rinsed/ Irrigated with Saline -Foul Odor after Cleansing No -Primary Dressing Applied Aquacel Extra -Primary Dressing Covered/Secured with Dry Gauze & Roll Gauze, Secured with Tape -Aquacel Extra 1 Left -Compression Wrap Surepress ($) -Stockings Yes Treatment Response Procedure Tolerated Well Pain Scale: 0-10 Numeric Is Patient Pain Free? 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: CODE(S): I87.039 - 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 (3) Varicose veins with ulcer and inflammation: CODE(S): I83.209 - Varicose veins of unspecified lower extremity with both ulcer of unspecified site and inflammation; L97.909 - Non-pressure chronic ulcer of unspecified part of unspecified lower leg with unspecified severity (4) Chronic venous insufficiency: (5) Postphlebitic syndrome with ulcer, left: CODE(S): I87.012 - 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 (6) Ulcer of ankle: (7) History of superficial thrombophlebitis: (8) Gout: CODE(S): M10.9 - Gout, unspecified (9) Emphysema of lung: CODE(S): J43.9 - Emphysema, unspecified (10) Tobacco abuse: CODE(S): Z72.0 - Tobacco use (11) Swelling of lower limb: CODE(S): M79.89 - Other specified soft tissue disorders (12) Prostatism: CODE(S): N40.0 - Benign prostatic hyperplasia without lower urinary tract symptoms (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 His history is detailed above. He has presented with a recurrent venous ulceration near the left medial malleolus. It appears as though he has become somewhat noncompliant with recommended conservative treatment measures, neglecting to elevate his lower extremities as much as previously recommended, and failing to wear his graduated compression stockings on a daily basis. These measures are to be reimplemented. Leg elevation has again been discussed. The patient is to elevate his lower extremities is much as possible, even during daytime hours. Legs are to be elevated to heart level, or higher. He is to continue sleeping on a flat mattress at night. Activity has been encouraged. Prolonged idle sitting has been discouraged. Patient has been encouraged to stop smoking. We are to implement the use of Aquacel topically to the ulceration overlying the left medial malleolus. Patient is to return in 1 week for reassessment. Total time: 38 minutes
[2021-06-02 10:22] VITALS: BP 139/79; PULSE 83; RESP 16; TEMP 36.3; BMI 24.4
--- NOTE | 2021-06-02 12:09 | HP.PCM_ITS ---
History of Present Illness Date of Service: 06/02/21 Chief Complaint: Ulceration, left medial malleolus History of Wound: This is an 85-year-old male with a longstanding history of chronic venous disease. He has been previously treated on several occasions in the [facility] for an ulceration located overlying the left medial malleolus, and returns at this time with a recurrence. He has been treated by conservative means in the past, resulting in successful healing. On September 19, 2020, the patient underwent endovenous laser ablation of the left great saphenous vein, duplicate left great saphenous vein, and the left small saphenous vein. A venous duplex examination performed 1 week later revealed a satisfactory and successful result. This resulted in successful healing of his left lower extremity venous ulceration, and he was subsequently discharged on November 18, 2020, with instructions to continue with leg elevation, avoidance of idle standing and sitting, maintaining an active lifestyle, maintaining optimal weight, and wearing graduated compression stockings of at least 20 to 30 mmHg compression on a daily basis. The patient sleeps on a flat mattress at night. He is also active during daytime hours. However, he has been relatively noncompliant and elevating his lower extremities, as advised. He has not been wearing his graduated compression stockings routinely, as had been recommended. An ulcer recurred near the left medial malleolus merced roximately 2 months ago he has been using collagenase Santyl topically, without resultant healing. He continues to smoke cigarettes, despite medical advice to the contrary. The patient has a history of superficial thrombophlebitis in the left lower extremity in the past. He suffers from chronic swelling and edema in both lower extremities, which is most prominent at the end of the day. 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 Restless legs Shortness of breath on exertion Smoker Wears glasses Wears hearing aid in both ears Home Medications budesonide-formoterol [Symbicort] 2 puff INHALATION BID 06/02/16 [History Last Taken 06/08/16 06:00 2 PUFF] amlodipine 5 mg PO DAILY 04/26/20 [History Last Taken Unknown] oxycodone-acetaminophen [Percocet] 1 - 2 tab PO Q8H PRN 4 Days #14 tab 09/18/20 [Rx Last Taken Unknown] Allergy/AdvReac Type Severity Reaction Status Date / Time ibuprofen [From Motrin] Allergy Swelling Verified 05/26/21 10:36 Surgical History History of cystoscopy History of esophagogastroduodenoscopy (EGD) History of parotidectomy Hx of basal cell carcinoma excision Hx of decompressive lumbar laminectomy Hx of finger joint replacement Hx of myringotomy Social History household members: spouse Smoking Status: Current every day smoker Vital Signs Vital Signs Vital Signs: 06/02/21 10:22 Temperature 97.3 F L Temperature Source Temporal Pulse Rate 83 Respiratory Rate 16 Blood Pressure 139/79 H Blood Pressure Mean 99 Blood Pressure Source Monitor Blood Pressure Position Sitting Blood Pressure Location Left Arm Oxygen Delivery Method Room Air Weight Weight: 160 lb 11.834 oz Body Mass Index (BMI) 24.4 Physical Exam Const alert, oriented x3, no apparent distress and well nourished General Appearance: cooperative and well developed Orientation / Consciousness: awake, oriented to person, oriented to place and oriented to time HEENT normocephalic and head/scalp atraumatic Head and Scalp: normal to inspection, normocephalic and atraumatic External Ear: external ears normal Eyes PERRL and EOMs intact bilaterally General Eye: normal appearance of both eyes Resp normal respiratory effort, normal air movement, no retractions and no use of accessory muscles Effort and Inspection: able to speak in complete sentences Extremity no calf tenderness General Extremity: Negative for clubbing or cyanosis Skin Wound Narrative: There is no significant swelling or edema in the patient's lower extremities. The area about the left medial malleolus demonstrates an area of inflammatory erythema. There are several clustered ulcerations in this region, all of which are quite superficial. Dimensions are documented elsewhere. There is no sign of infection or cellulitis. There is a moderate amount of bioburden. Neuro oriented x3, CN's II-XII intact bilaterally and moves all extremities Sensorium / Orientation: awake, alert, oriented to person, oriented to place and oriented to time Psych Appearance: grossly normal and appropriate Attitude: calm Activity / Motor Behavior: appropriate eye contact Speech: normal speech Mood & Affect: euthymic mood Thought Process: normal thought process Thought Content: normal thought content Attention / Concentration: attention grossly intact Debridement Note Debridement Note Wound debrided: Left medial malleolus Laterality: Left Type of Debridement: Selective debridement Anesthesia Used: 5% Lidocaine Gel Depth: Down to and including healthy tissue Percentage of wound debrided: 100 Instrument Used: 3mm curette Tissue Removed: Bioburden Severity: Limited To Skin Breakdown Amount of bleeding with debridement: Mild Bleeding Controlled with: Compression and gauze Patient tolerated procedure: Patient tolerated procedure well Post-Debridement Measurements and Additional Note: Post-Debridement Measurements/Treatment - Nurse 1 - General Ulcer Assessment Start: 05/26/21 10:21 Freq: Status: Active Protocol: DENISE Activity Type Activity Date Activity User E-Sign Co-Sign Detail Recorded Client Recorded Date Recorded By Document 05/26/21 10:21 [id number] 05/26/21 10:31 DL Document 06/02/21 10:22 [facility] [id number] 06/02/21 10:27 [facility] 05/26/21 06/02/21 10:21 10:22 - Today's Visit Information Type of service Initial Visit Follow-up Visit (Physician/DRIVER TRAINEE ) Arrival Mode Ambulatory Ambulatory Transfer Assistance None None Patient Identification Verified (Name & Yes Yes ) Patient Requires Transmission-Based No No Precautions Height and Weight Height 5 ft 8 in Weight 160 lb 11.834 oz Weight in Pounds 160.7 lbs Body Mass Index (BMI) 24.4 24.4 BMI Classification Normal Normal BSA - Kerry 1.86 Vital Signs Temperature (97.8 F-99.1 F) 97.4 F L 97.3 F L Temperature Source Temporal Temporal Pulse Rate (60-100) 86 83 Pulse Location Monitor Monitor Respiratory Rate (12-18) 20 H 16 Respiratory rate source Observation Observation Oxygen Delivery Method Room Air Blood Pressure (90/60-120/80) 132/76 H 139/79 H Blood Pressure Mean 94 99 Source Monitor Position Sitting Blood Pressure Location Left Arm Have you changed medications since your No last visit? Any new allergies or adverse reactions No Had a fall/change in ADL's that may No increase risk of falls Signs or symptoms of abuse and/or No neglect since last visit Have you been in the hospital since your No last visit? Has dressing in place as prescribed Yes Has compression in place as prescribed Yes Has offloadiing in place as prescribed N/A Experienced any changes in pain level or No management History Since Last Visit- (Skip if this is Patient's initial visit) Left Footwear Regular Shoe Regular Shoe Right Footwear Regular Shoe Regular Shoe Pain Scale: 0-10 Numeric Is Patient Pain Free? Yes Yes Communication Assessment Preferred language [place] Mobile Home Technician Required No Able to Read Yes Able to Write Yes Communication Tools None Right Hearing Abillity Use of Hearing Aid Left Hearing Abillity Use of Hearing Aid Visual Assistive Devices Glasses Teaching Assessment Preferences Verbal,Written, Demonstration Barriers to Learning None Readiness To Learn Good Willingness to Engage in Self Management Med Activies Readiness to Engage in Self Management Med Activities Anxiety Level Calm Cooperation Cooperative Perception Coherent Interest in Health Problem Asks Questions Education Importance Acknowledges Need Does Patient Smoke tobacco or other Yes substances Smoking Status Current every day smoker Is Patient Diabetic No Functional Assessment Recent Decline in Ability to Perform Denies Any Declines Assistive Device With Patient N/A Teaching: Wound Center Control Swelling with Leg Elevation -Person Taught Patient *Nutrition -Person Taught Patient Dressing Your Wound -Person Taught Patient Discharge Instructions -Person Taught Patient *Welcome to the Wound Center -Person Taught Patient WC - Nurse 1 - General Ulcer Measurement Start: 05/26/21 10:21 Freq: Status: Active Protocol: Activity Type Activity Date Activity User E-Sign Co-Sign Detail Recorded Client Recorded Date Recorded By Document 05/26/21 10:21 [id number] 05/26/21 10:31 DL Document 06/02/21 10:22 [facility] [id number] 06/02/21 10:27 BM 05/26/21 06/02/21 10:21 10:22 Wound Center Nurse 1 #3 L Med Ankle -Combined with other wound No -Current Size (cm) - Length 1.5 2.5 -Current Size (cm) - Width 5.5 2 -Current Size (cm) - Depth 0.1 0.1 -Total Square Cm 8.25 5.0 -Photo Taken Yes No -Epithelialization Medium 34-66% -Tunneling No -Undermining/Tunneling No -Circular Undermining No -Classification - Thickness Full Thickness without Exposed Support Structure -Exudate Amt Large Medium -Exudate Type Serosanguineous Serous -Wound Margin Indistinct, Non Flat & Intact -Visible -Granulation Amt Large (67-100%) Large (67-100%) -Granulation Quality Red Red -Slough/Fibrin Yes -Necrosis Amt Small (1-33%) Small (1-33%) -Necrotic Tissue Type Adherent Slough Adherent Slough -Structure Exposed N/A -Texture (Corine-wound Skin Appearance) Excoriation, Assessed, Rash Excoriation, Scarring -Moisture (Corine-wound Skin Appearance) Weeping Assessed,Dry/ Scaly -Color (Corine-wound Skin Appearance) Hemosiderin Assessed, Staining Erythema -Temperature (Corine-wound Skin No Abnormality No Abnormality Appearance) (Pt Warm) (Pt Warm) -Tenderness on Palpation (Corine-wound Yes No Skin Appearance) -Ulcer Cleansing Rinsed/ Rinsed/ Irrigated with Irrigated with Saline Saline -Foul Odor after Cleansing No -Anesthetic Used 4% Lidocaine 5% Lidocaine Solution Gel Lower Limb Edema Present Yes Right Calf (cm) 34.5 Right Ankle (cm) 21.5 Left Calf (cm) 35.5 34.8 Left Ankle (cm) 23 23.3 WC - Nurse 2 - General Ulcer CM Notes Start: 05/26/21 10:21 Freq: Status: Active Protocol: Activity Type Activity Date Activity User E-Sign Co-Sign Detail Recorded Client Recorded Date Recorded By Document 05/26/21 12:44 PL [id number] 05/26/21 12:45 PL Document 06/02/21 11:53 PL [id number] 06/02/21 11:55 PL 05/26/21 06/02/21 12:44 11:53 Wound Center Nurse 2 #3 L Med Ankle -Time 10:55 10:45 -Correct Patient Yes Yes -Correct Side, Site, Position Yes Yes -Correct Procedure Yes Yes -Procedure Performed Yes Yes -Type of Procedure Debridement Debridement -Clinical Debridement Subcutaneous Epidermis / Dermis -Tissue Removed Subcutaneous Epidermis, Dermis -Post Debridement (cm) - Length 1.5 2.5 -Post Debridement (cm) - Width 5.5 2.0 -Post Debridement (cm) - Depth 0.1 0.1 -Total Square (Post) (cm) 8.25 5.00 -Area of Debridement (cm) - Length 1.5 2.5 -Area of Debridement (cm) - Width 3.5 2.0 -Total Square (Area) (cm) 5.25 5.00 -Tunneling No No -Undermining/Tunneling No No -Circular Undermining No No -Wound/Ulcer Outcome Not Healed Not Healed -Ulcer Cleansing Rinsed/ Rinsed/ Irrigated with Irrigated with Saline Saline -Foul Odor after Cleansing No No -Bioengineered Tissue No No -Bleeding Controlled with Pressure Pressure -Treatment Response Procedure Procedure Tolerated Well Tolerated Well -Debridement - Open, 1st 20sq cm Yes -Debridement - Subq, 1st 20sq cm Yes Pain Scale: 0-10 Numeric Is Patient Pain Free? Yes Yes WC - Nurse 3 - General Ulcer D/C NN Start: 05/26/21 10:21 Freq: Status: Active Protocol: Activity Type Activity Date Activity User E-Sign Co-Sign Detail Recorded Client Recorded Date Recorded By Document 05/26/21 11:06 DL [id number] 05/26/21 11:09 DL Document 06/02/21 10:59 MW [id number] 06/02/21 11:00 MW 05/26/21 06/02/21 11:06 10:59 Wound Care Nurse 3 #3 L Med Ankle -Ulcer Cleansing Rinsed/ Rinsed/ Irrigated with Irrigated with Saline Saline -Foul Odor after Cleansing No No -Negative Pressure Wound Therapy N/A -Primary Dressing Applied Aquacel Extra C Hydrogel ($) -Primary Dressing Covered/Secured with Dry Gauze & Dry Gauze & Roll Gauze, Roll Gauze, Secured with Secured with Tape Tape -Other Covering aquacel extra -Aquacel Extra 1 Left -Lotion applied to leg before No compression wrap -Compression Wrap Surepress ($) -Stockings Yes Yes -Other will apply compression stocking at home Treatment Response Procedure Procedure Tolerated Well Tolerated Well Pain Scale: 0-10 Numeric Is Patient Pain Free? Yes Yes Teaching: Wound Center Dressing Your Wound -Person Taught Patient -Teaching Method Discussion, Demonstration -Response to teaching Verbalize understanding WC - Visit Discharge Discharge Condition Stable Stable Ambulatory Status Ambulatory Ambulatory Transportation Private Auto Private Auto Accompanied by self Medication Reconcilliation completed & No provided to patient/care provider Clinical Summary of Care Provided Yes Assessment/Plan Assessment/Plan (1) Venous hypertension, chronic, with ulcer and inflammation: CODE(S): I87.339 - Chronic venous hypertension (idiopathic) with ulcer and inflammation of unspecified lower extremity QUALIFIERS: Laterality: left Qualified Code(s): L97.929 - Non- pressure chronic ulcer of unspecified part of left lower leg with unspecified severity (2) Postphlebitic syndrome with ulcer, left: CODE(S): I87.012 - 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 (3) 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: CODE(S): I87.039 - 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 (4) Varicose veins with ulcer and inflammation: CODE(S): I83.209 - Varicose veins of unspecified lower extremity with both ulcer of unspecified site and inflammation; L97.909 - Non-pressure chronic ulcer of unspecified part of unspecified lower leg with unspecified severity (5) Ulcer of ankle: (6) Chronic venous insufficiency: (7) Gout: CODE(S): M10.9 - Gout, unspecified (8) Emphysema of lung: CODE(S): J43.9 - Emphysema, unspecified (9) Swelling of lower limb: CODE(S): M79.89 - Other specified soft tissue disorders (10) History of superficial thrombophlebitis: (11) Prostatism: CODE(S): N40.0 - Benign prostatic hyperplasia without lower urinary tract symptoms (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 His history is detailed above. He has presented with a recurrent venous ulceration near the left medial malleolus. It appears as though he had become somewhat noncompliant with recommended conservative treatment measures, neglecting to elevate his lower extremities as much as previously recommended, and failing to wear his graduated compression stockings on a daily basis. These measures have been reimplemented. Leg elevation has again been discussed. The patient is to elevate his lower extremities is much as possible, even during daytime hours. Legs are to be elevated to heart level, or higher. He is to continue sleeping on a flat mattress at night. Activity has been encouraged. Prolonged idle sitting has been discouraged. Patient has been encouraged to stop smoking. We are to continue the use of Aquacel (a calcium alginate) topically to the ulceration overlying the left medial malleolus. We will also apply collagen hydrogel topically with each dressing change. The patient is to return in 1 week for reassessment. Total time: 29 minutes
[2021-06-09 10:36] VITALS: BP 113/64; PULSE 86; RESP 18; TEMP 35.9; BMI 24.4
--- NOTE | 2021-06-09 12:40 | HP.PCM_ITS ---
History of Present Illness Date of Service: 06/09/21 Chief Complaint: Ulceration, left medial malleolus History of Wound: This is an 85-year-old male with a longstanding history of chronic venous disease. He has been previously treated on several occasions in the [facility] for an ulceration located overlying the left medial malleolus, and returns at this time with a recurrence. He has been treated by conservative means in the past, resulting in successful healing. On September 19, 2020, the patient underwent endovenous laser ablation of the left great saphenous vein, duplicate left great saphenous vein, and the left small saphenous vein. A venous duplex examination performed 1 week later revealed a satisfactory and successful result. This resulted in successful healing of his left lower extremity venous ulceration, and he was subsequently discharged on November 18, 2020, with instructions to continue with leg elevation, avoidance of idle standing and sitting, maintaining an active lifestyle, maintaining optimal weight, and wearing graduated compression stockings of at least 20 to 30 mmHg compression on a daily basis. The patient sleeps on a flat mattress at night. He is also active during daytime hours. However, he has been relatively noncompliant and elevating his lower extremities, as advised. He has not been wearing his graduated compression stockings routinely, as had been recommended. An ulcer recurred near the left medial malleolus merced roximately 2 months ago he has been using collagenase Santyl topically, without resultant healing. He continues to smoke cigarettes, despite medical advice to the contrary. The patient has a history of superficial thrombophlebitis in the left lower extremity in the past. He suffers from chronic swelling and edema in both lower extremities, which is most prominent at the end of the day. 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 Restless legs Shortness of breath on exertion Smoker Wears glasses Wears hearing aid in both ears Home Medications budesonide-formoterol [Symbicort] 2 puff INHALATION BID 06/02/16 [History Last Taken 06/08/16 06:00 2 PUFF] amlodipine 5 mg PO DAILY 04/26/20 [History Last Taken Unknown] oxycodone-acetaminophen [Percocet] 1 - 2 tab PO Q8H PRN 4 Days #14 tab 09/18/20 [Rx Last Taken Unknown] Allergy/AdvReac Type Severity Reaction Status Date / Time ibuprofen [From Motrin] Allergy Swelling Verified 05/26/21 10:36 Surgical History History of cystoscopy History of esophagogastroduodenoscopy (EGD) History of parotidectomy Hx of basal cell carcinoma excision Hx of decompressive lumbar laminectomy Hx of finger joint replacement Hx of myringotomy Social History household members: spouse Smoking Status: Current every day smoker Vital Signs Vital Signs Vital Signs: 06/09/21 10:36 Temperature 96.6 F L Temperature Source Temporal Pulse Rate 86 Respiratory Rate 18 Blood Pressure 113/64 Blood Pressure Mean 80 Blood Pressure Source Monitor Blood Pressure Position Sitting Blood Pressure Location Right Arm Oxygen Delivery Method Room Air Weight Weight: 160 lb 11.834 oz Body Mass Index (BMI) 24.4 Physical Exam Const alert, oriented x3, no apparent distress and well nourished General Appearance: cooperative and well developed Orientation / Consciousness: awake, oriented to person, oriented to place and oriented to time HEENT normocephalic and head/scalp atraumatic Head and Scalp: normal to inspection, normocephalic and atraumatic External Ear: external ears normal Eyes PERRL and EOMs intact bilaterally General Eye: normal appearance of both eyes Resp normal respiratory effort, normal air movement, no retractions and no use of accessory muscles Effort and Inspection: able to speak in complete sentences Extremity no calf tenderness Extremity Narrative: No significant swelling or edema are noted in the patient's lower extremities bilaterally. General Extremity: Negative for clubbing or cyanosis Skin Wound Narrative: Examination of the area near the left medial malleolus reveals there to be no specific open wound or ulceration. However, the area is irritated and erythematous. The area of erythema entails approximately 4 to 5 cm in diameter. Neuro oriented x3, CN's II-XII intact bilaterally and moves all extremities Sensorium / Orientation: awake, alert, oriented to person, oriented to place and oriented to time Psych Appearance: grossly normal and appropriate Attitude: calm Activity / Motor Behavior: appropriate eye contact Speech: normal speech Mood & Affect: euthymic mood Thought Process: normal thought process Thought Content: normal thought content Attention / Concentration: attention grossly intact Debridement Note Debridement Note No debridement was completed: No debridement was completed today Post-Debridement Measurements and Additional Note: Post-Debridement Measurements/Treatment HELEN - Nurse 1 - General Ulcer Assessment Start: 05/26/21 10:21 Freq: Status: Active Protocol: DENISE Activity Type Activity Date Activity User E-Sign Co-Sign Detail Recorded Client Recorded Date Recorded By Document 05/26/21 10:21 DL [id number] 05/26/21 10:31 DL Document 06/02/21 10:22 [facility] [id number] 06/02/21 10:27 BMF Document 06/09/21 10:36 MW [id number] 06/09/21 10:39 MW 05/26/21 06/02/21 06/09/21 10:21 10:22 10:36 - Today's Visit Information Type of service Initial Visit Follow-up Visit Follow-up Visit (Physician/PUBLIC RELATIONS ANALYST (Physician/PUBLIC RELATIONS ANALYST ) ) Arrival Mode Ambulatory Ambulatory Ambulatory Transfer Assistance None None None Accompanied by self Patient Identification Verified (Name & Yes Yes Yes ) Patient Requires Transmission-Based No No No Precautions Safety Precautions NA Height and Weight Height 5 ft 8 in Weight 160 lb 11.834 oz Weight in Pounds 160.7 lbs Body Mass Index (BMI) 24.4 24.4 24.4 BMI Classification Normal Normal Normal BSA - Kerry 1.86 Vital Signs Temperature (97.8 F-99.1 F) 97.4 F L 97.3 F L 96.6 F L Temperature Source Temporal Temporal Temporal Pulse Rate (60-100) 86 83 86 Pulse Location Monitor Monitor Monitor Respiratory Rate (12-18) 20 H 16 18 Respiratory rate source Observation Observation Observation Oxygen Delivery Method Room Air Room Air Blood Pressure (90/60-120/80) 132/76 H 139/79 H 113/64 Blood Pressure Mean 94 99 80 Source Monitor Monitor Position Sitting Sitting Blood Pressure Location Left Arm Right Arm Have you changed medications since your No No last visit? Any new allergies or adverse reactions No No Had a fall/change in ADL's that may No No increase risk of falls Signs or symptoms of abuse and/or No No neglect since last visit Have you been in the hospital since your No No last visit? Has dressing in place as prescribed Yes Yes Has compression in place as prescribed Yes N/A Has offloadiing in place as prescribed N/A N/A Experienced any changes in pain level or No No management History Since Last Visit- (Skip if this is Patient's initial visit) Left Footwear Regular Shoe Regular Shoe Regular Shoe Right Footwear Regular Shoe Regular Shoe Regular Shoe Pain Scale: 0-10 Numeric Is Patient Pain Free? Yes Yes Yes Communication Assessment Preferred language Macanese Pad Cutter Required No Able to Read Yes Able to Write Yes Communication Tools None Right Hearing Abillity Use of Hearing Aid Left Hearing Abillity Use of Hearing Aid Visual Assistive Devices Glasses Teaching Assessment Preferences Verbal,Written, Demonstration Barriers to Learning None Readiness To Learn Good Willingness to Engage in Self Management Med Activies Readiness to Engage in Self Management Med Activities Anxiety Level Calm Cooperation Cooperative Perception Coherent Interest in Health Problem Asks Questions Education Importance Acknowledges Need Does Patient Smoke tobacco or other Yes substances Smoking Status Current every day smoker Is Patient Diabetic No Functional Assessment Recent Decline in Ability to Perform Denies Any Declines Assistive Device With Patient N/A Teaching: Wound Center Control Swelling with Leg Elevation -Person Taught Patient *Nutrition -Person Taught Patient Dressing Your Wound -Person Taught Patient Discharge Instructions -Person Taught Patient *Welcome to the Wound Center -Person Taught Patient WC - Nurse 1 - General Ulcer Measurement Start: 05/26/21 10:21 Freq: Status: Active Protocol: Activity Type Activity Date Activity User E-Sign Co-Sign Detail Recorded Client Recorded Date Recorded By Document 05/26/21 10:21 DL [id number] 05/26/21 10:31 DL Document 06/02/21 10:22 [facility] [id number] 06/02/21 10:27 BMF Document 06/09/21 10:36 MW [id number] 06/09/21 10:39 MW 05/26/21 06/02/21 06/09/21 10:21 10:22 10:36 Wound Center Nurse 1 #3 L Med Ankle -Combined with other wound No No -Current Size (cm) - Length 1.5 2.5 0.5 -Current Size (cm) - Width 5.5 2 0.7 -Current Size (cm) - Depth 0.1 0.1 0.1 -Total Square Cm 8.25 5.0 0.35 -Photo Taken Yes No No -Epithelialization Medium 34-66% None Present -Tunneling No No -Undermining/Tunneling No No -Circular Undermining No No -Classification - Thickness Full Thickness without Exposed Support Structure -Exudate Amt Large Medium Large -Exudate Type Serosanguineous Serous Serosanguineous -Wound Margin Indistinct, Non Flat & Intact Flat & Intact -Visible -Granulation Amt Large (67-100%) Large (67-100%) Medium (34-66%) -Granulation Quality Red Red [place] -Slough/Fibrin Yes Yes -Necrosis Amt Small (1-33%) Small (1-33%) Small (1-33%) -Necrotic Tissue Type Adherent Slough Adherent Slough Adherent Slough -Structure Exposed N/A N/A -Texture (Corine-wound Skin Appearance) Excoriation, Assessed, Assessed, Rash Excoriation, Localized Edema Scarring ,Scarring -Moisture (Corine-wound Skin Appearance) Weeping Assessed,Dry/ Assessed, Scaly Maceration -Color (Corine-wound Skin Appearance) Hemosiderin Assessed, Assessed,Rubor Staining Erythema -Temperature (Corine-wound Skin No Abnormality No Abnormality No Abnormality Appearance) (Pt Warm) (Pt Warm) (Pt Warm) -Tenderness on Palpation (Corine-wound Yes No Yes Skin Appearance) -Ulcer Cleansing Rinsed/ Rinsed/ Rinsed/ Irrigated with Irrigated with Irrigated with Saline Saline Saline -Foul Odor after Cleansing No No -Anesthetic Used 4% Lidocaine 5% Lidocaine 5% Lidocaine Solution Gel Gel Lower Limb Edema Present Yes Yes Right Calf (cm) 34.5 Right Ankle (cm) 21.5 Left Calf (cm) 35.5 34.8 35.5 Left Ankle (cm) 23 23.3 23.5 WC - Nurse 2 - General Ulcer CM Notes Start: 05/26/21 10:21 Freq: Status: Active Protocol: Activity Type Activity Date Activity User E-Sign Co-Sign Detail Recorded Client Recorded Date Recorded By Document 05/26/21 12:44 PL [id number] 05/26/21 12:45 PL Document 06/02/21 11:53 PL [id number] 01/18/22 11:55 PL 05/26/21 06/02/21 12:44 11:53 Wound Center Nurse 2 #3 L Med Ankle -Time 10:55 10:45 -Correct Patient Yes Yes -Correct Side, Site, Position Yes Yes -Correct Procedure Yes Yes -Procedure Performed Yes Yes -Type of Procedure Debridement Debridement -Clinical Debridement Subcutaneous Epidermis / Dermis -Tissue Removed Subcutaneous Epidermis, Dermis -Post Debridement (cm) - Length 1.5 2.5 -Post Debridement (cm) - Width 5.5 2.0 -Post Debridement (cm) - Depth 0.1 0.1 -Total Square (Post) (cm) 8.25 5.00 -Area of Debridement (cm) - Length 1.5 2.5 -Area of Debridement (cm) - Width 3.5 2.0 -Total Square (Area) (cm) 5.25 5.00 -Tunneling No No -Undermining/Tunneling No No -Circular Undermining No No -Wound/Ulcer Outcome Not Healed Not Healed -Ulcer Cleansing Rinsed/ Rinsed/ Irrigated with Irrigated with Saline Saline -Foul Odor after Cleansing No No -Bioengineered Tissue No No -Bleeding Controlled with Pressure Pressure -Treatment Response Procedure Procedure Tolerated Well Tolerated Well -Debridement - Open, 1st 20sq cm Yes -Debridement - Subq, 1st 20sq cm Yes Pain Scale: 0-10 Numeric Is Patient Pain Free? Yes Yes WC - Nurse 3 - General Ulcer D/C NN Start: 05/26/21 10:21 Freq: Status: Active Protocol: Activity Type Activity Date Activity User E-Sign Co-Sign Detail Recorded Client Recorded Date Recorded By Document 05/26/21 11:06 DL [id number] 05/26/21 11:09 DL Document 06/02/21 10:59 MW [id number] 06/02/21 11:00 MW Document 06/09/21 10:54 MW [id number] 06/09/21 10:55 MW 05/26/21 06/02/21 06/09/21 11:06 10:59 10:54 Wound Care Nurse 3 #3 L Med Ankle -Ulcer Cleansing Rinsed/ Rinsed/ Rinsed/ Irrigated with Irrigated with Irrigated with Saline Saline Saline -Foul Odor after Cleansing No No No -Negative Pressure Wound Therapy N/A N/A -Primary Dressing Applied Aquacel Extra C Hydrogel ($) -Primary Dressing Covered/Secured with Dry Gauze & Dry Gauze & Dry Gauze & Roll Gauze, Roll Gauze, Roll Gauze, Secured with Secured with Secured with Tape Tape Tape -Other Covering aquacel extra -Aquacel Extra 1 Left -Lotion applied to leg before No compression wrap -Compression Wrap Surepress ($) -Stockings Yes Yes -Other will apply compression stocking at home Treatment Response Procedure Procedure Tolerated Well Tolerated Well Pain Scale: 0-10 Numeric Is Patient Pain Free? Yes Yes Yes Teaching: Wound Center Dressing Your Wound -Person Taught Patient Patient -Teaching Method Discussion, Discussion Demonstration -Response to teaching Verbalize Verbalize understanding understanding WC - Visit Discharge Discharge Condition Stable Stable Stable Ambulatory Status Ambulatory Ambulatory Ambulatory Transportation Private Auto Private Auto Private Auto Accompanied by self self Medication Reconcilliation completed & No No provided to patient/care provider Clinical Summary of Care Provided Yes Yes 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: CODE(S): I87.039 - 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 (3) Varicose veins with ulcer and inflammation: CODE(S): I83.209 - Varicose veins of unspecified lower extremity with both ulcer of unspecified site and inflammation; L97.909 - Non-pressure chronic ulcer of unspecified part of unspecified lower leg with unspecified severity (4) Chronic venous insufficiency: (5) Ulcer of ankle: QUALIFIERS: Laterality: left Non-pressure ulcer stage: with fat layer exposed Qualified Code(s): L97.322 - Non-pressure chronic ulcer of left ankle with fat layer exposed (6) Emphysema of lung: CODE(S): J43.9 - Emphysema, unspecified (7) Tobacco abuse counseling: CODE(S): Z71.6 - Tobacco abuse counseling (8) Tobacco abuse: CODE(S): Z72.0 - Tobacco use (9) Swelling of lower limb: CODE(S): M79.89 - Other specified soft tissue disorders (10) Postphlebitic syndrome with ulcer, left: CODE(S): I87.012 - 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 (11) History of superficial thrombophlebitis: (12) Prostatism: CODE(S): N40.0 - Benign prostatic hyperplasia without lower urinary tract symptoms (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 His history is detailed above. He presented with a recurrent venous ulceration near the left medial malleolus. It appears as though he had become somewhat noncompliant with recommended conservative treatment measures, neglecting to elevate his lower extremities as much as previously recommended, and failing to wear his graduated compression stockings on a daily basis. These measures have been reimplemented. Leg elevation has again been discussed. The patient is to elevate his lower extremities is much as possible, even during daytime hours. Legs are to be elevated to heart level, or higher. He is to continue sleeping on a flat mattress at night. Activity has been encouraged. Prolonged idle sitting has been discouraged. Patient has been encouraged to stop smoking. At this juncture, there does not appear to be any mamie open ulcer or wound. 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 Therefore, the patient is to initiate the use of Lotrisone cream 1%/0.05%, which has been prescribed. The patient is to apply topically twice daily. The patient is to return in 1 week for reassessment. At that time, it will be determined whether there has been improvement as a result of this change in clinical management. Total time: 28 minutes
== END 2021-06-15 23:59 ==
LOC: WC 10:15
PROVIDERS: PCP Family Medicine; Visit Provider Surgery
DX: I83.223 Varicose veins of left lower extremity with both ulcer of ankle and inflammation (principal); L97.322 Non-pressure chronic ulcer of left ankle with fat layer exposed; J43.9 Emphysema, unspecified; I87.2 Venous insufficiency (chronic) (peripheral); Z79.51 Long term (current) use of inhaled steroids; R60.0 Localized edema; N40.0 Benign prostatic hyperplasia without lower urinary tract symptoms; Z72.0 Tobacco use; I10 Essential (primary) hypertension; F17.200 Nicotine dependence, unspecified, uncomplicated; Z91.19 Patient's noncompliance with other medical treatment and regimen
CPT/HCPCS: 11042; 97597; 99213; G0463

== ENCOUNTER 2021-06-30 10:20 | Outpatient (RCR) | payer MEDICARE, SELFPAY ==
[2021-06-16 00:09] VITALS: BP 113/64; PULSE 86; RESP 18; TEMP 35.9; BMI 24.4
[2021-06-30 10:25] VITALS: BP 156/76; PULSE 83; RESP 18; TEMP 36.3; BMI 24.4
--- NOTE | 2021-06-30 13:57 | PCM.WC.HP ---
History of Present Illness Date of Service: 06/30/21 Chief Complaint: Ulceration, left medial malleolus History of Wound: This is an 85-year-old male with a longstanding history of chronic venous disease. He has been previously treated on several occasions in the [facility] for an ulceration located overlying the left medial malleolus, and returns at this time with a recurrence. He has been treated by conservative means in the past, resulting in successful healing. On September 19, 2020, the patient underwent endovenous laser ablation of the left great saphenous vein, duplicate left great saphenous vein, and the left small saphenous vein. A venous duplex examination performed 1 week later revealed a satisfactory and successful result. This resulted in successful healing of his left lower extremity venous ulceration, and he was subsequently discharged on November 18, 2020, with instructions to continue with leg elevation, avoidance of idle standing and sitting, maintaining an active lifestyle, maintaining optimal weight, and wearing graduated compression stockings of at least 20 to 30 mmHg compression on a daily basis. The patient sleeps on a flat mattress at night. He is also active during daytime hours. However, he has been relatively noncompliant and elevating his lower extremities, as advised. He has not been wearing his graduated compression stockings routinely, as had been recommended. An ulcer recurred near the left medial malleolus approximately 2 months ago he has been using collagenase Santyl topically, without resultant healing. He continues to smoke cigarettes, despite medical advice to the contrary. The patient has a history of superficial thrombophlebitis in the left lower extremity in the past. He suffers from chronic swelling and edema in both lower extremities, which is most prominent at the end of the day. 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 Restless legs Shortness of breath on exertion Smoker Wears glasses Wears hearing aid in both ears Home Medications budesonide-formoterol [Symbicort] 2 puff INHALATION BID 06/02/16 [History Last Taken 06/08/16 06:00 2 PUFF] amlodipine 5 mg PO DAILY 04/26/20 [History Last Taken Unknown] oxycodone-acetaminophen [Percocet] 1 - 2 tab PO Q8H PRN 4 Days #14 tab 09/18/20 [Rx Last Taken Unknown] Allergy/AdvReac Type Severity Reaction Status Date / Time ibuprofen [From Motrin] Allergy Swelling Verified 05/26/21 10:36 Surgical History History of cystoscopy History of esophagogastroduodenoscopy (EGD) History of parotidectomy Hx of basal cell carcinoma excision Hx of decompressive lumbar laminectomy Hx of finger joint replacement Hx of myringotomy Social History household members: spouse Smoking Status: Current every day smoker Vital Signs Vital Signs Vital Signs: 06/30/21 10:25 Temperature 97.3 F L Temperature Source Temporal Pulse Rate 83 Respiratory Rate 18 Blood Pressure 156/76 H Blood Pressure Mean 102 Weight Weight: 160 lb 11.834 oz Body Mass Index (BMI) 24.4 Physical Exam Const alert, oriented x3, no apparent distress and well nourished General Appearance: cooperative, comfortable, well kempt and well developed Orientation / Consciousness: awake, oriented to person, oriented to place and oriented to time HEENT normocephalic and head/scalp atraumatic Head and Scalp: normal to inspection, normocephalic and atraumatic External Ear: external ears normal Eyes PERRL and EOMs intact bilaterally General Eye: normal appearance of both eyes Resp normal respiratory effort, normal air movement, no retractions and no use of accessory muscles Effort and Inspection: able to speak in complete sentences Extremity no calf tenderness General Extremity: Negative for clubbing or cyanosis Skin Wound Narrative: There is a small venous ulceration near the left medial malleolus. It measures approximately 2 to 3 mm in diameter. There is a small amount of bioburden. There is no sign of infection or cellulitis. The dermatomycosis surrounding the ulceration, which was previously noted in prior visits, has now resolved as a result of the use of Lotrisone cream 1% / 0.05%. Neuro oriented x3, CN's II-XII intact bilaterally and moves all extremities Sensorium / Orientation: awake, alert, oriented to person, oriented to place and oriented to time Psych Appearance: grossly normal, appropriate and well kempt Attitude: calm Activity / Motor Behavior: appropriate eye contact Speech: normal speech Mood & Affect: euthymic mood Thought Process: normal thought process Thought Content: normal thought content Attention / Concentration: attention grossly intact Debridement Note Debridement Note Wound debrided: Left medial malleolus Laterality: Left Type of Debridement: Excisional debridement Anesthesia Used: 5% Lidocaine Gel Depth: Down to and including healthy tissue and in the subcutaneous layer Percentage of wound debrided: 100 Instrument Used: 3mm curette Tissue Removed: Bioburden Severity: Fat Layer Exposed Amount of bleeding with debridement: Mild Bleeding Controlled with: Compression and gauze Patient tolerated procedure: Patient tolerated procedure well Post-Debridement Measurements and Additional Note: Post-Debridement Measurements/Treatment - Nurse 1 - General Ulcer Assessment Start: 06/30/21 10:24 Freq: Status: Active Protocol: DENISE Activity Type Activity Date Activity User E-Sign Co-Sign Detail Recorded Client Recorded Date Recorded By Document 06/30/21 10:25 JESSICA [id number] 06/30/21 10:29 PL 06/30/21 10:25 - Today's Visit Information Type of service Follow-up Visit (Physician/DICTIONARY EDITOR ) Arrival Mode Ambulatory Transfer Assistance None Patient Identification Verified (Name & Yes ) Patient Requires Transmission-Based No Precautions Height and Weight Body Mass Index (BMI) 24.4 BMI Classification Normal Vital Signs Temperature (97.8 F-99.1 F) 97.3 F L Temperature Source Temporal Pulse Rate (60-100) 83 Respiratory Rate (12-18) 18 Blood Pressure (90/60-120/80) 156/76 H Blood Pressure Mean 102 History Since Last Visit- (Skip if this is Patient's initial visit) Have you changed medications since your No last visit? Any new allergies or adverse reactions No Had a fall/change in ADL's that may No increase risk of falls Signs or symptoms of abuse and/or No neglect since last visit Have you been in the hospital since your No last visit? Has dressing in place as prescribed Yes Has compression in place as prescribed Yes Has offloadiing in place as prescribed N/A Experienced any changes in pain level or No management Pain Scale: 0-10 Numeric Is Patient Pain Free? Yes - Nurse 1 - General Ulcer Measurement Start: 06/30/21 10:24 Freq: Status: Active Protocol: Activity Type Activity Date Activity User E-Sign Co-Sign Detail Recorded Client Recorded Date Recorded By Document 06/30/21 10:25 PL [id number] 06/30/21 10:29 PL 06/30/21 10:25 Wound Center Nurse 1 #3 L Med Ankle -Combined with other wound No -Current Size (cm) - Length 0.1 -Current Size (cm) - Width 0.1 -Current Size (cm) - Depth 0.1 -Total Square Cm 0.01 -Photo Taken No -Epithelialization None Present -Tunneling No -Undermining/Tunneling No -Circular Undermining No -Classification - Thickness Partial Thickness -Exudate Amt None Present -Granulation Amt Large (67-100%) -Granulation Quality Mango -Slough/Fibrin No -Necrosis Amt None Present (0 %) WC - Nurse 2 - General Ulcer CM Notes Start: 06/30/21 10:24 Freq: Status: Active Protocol: Activity Type Activity Date Activity User E-Sign Co-Sign Detail Recorded Client Recorded Date Recorded By Document 06/30/21 12:35 PL [id number] 06/30/21 12:36 PL 06/30/21 12:35 Wound Center Nurse 2 -Time 10:36 -Correct Patient Yes -Correct Side, Site, Position Yes -Correct Procedure Yes -Procedure Performed Yes -Type of Procedure Debridement -Clinical Debridement Subcutaneous -Tissue Removed Subcutaneous -Post Debridement (cm) - Length 0.1 -Post Debridement (cm) - Width 0.1 -Post Debridement (cm) - Depth 0.1 -Total Square (Post) (cm) 0.01 -Area of Debridement (cm) - Length 0.1 -Area of Debridement (cm) - Width 0.1 -Total Square (Area) (cm) 0.01 -Tunneling No -Undermining/Tunneling No -Circular Undermining No -Wound/Ulcer Outcome Not Healed -Ulcer Cleansing Rinsed/ Irrigated with Saline -Foul Odor after Cleansing No -Bioengineered Tissue No -Bleeding Controlled with Pressure -Treatment Response Procedure Tolerated Well -Debridement - Subq, 1st 20sq cm Yes Pain Scale: 0-10 Numeric Is Patient Pain Free? Yes WC - Nurse 3 - General Ulcer D/C NN Start: 06/30/21 10:24 Freq: Status: Active Protocol: Activity Type Activity Date Activity User E-Sign Co-Sign Detail Recorded Client Recorded Date Recorded By Document 06/30/21 10:46 MW [id number] 06/30/21 10:47 MW 06/30/21 10:46 Wound Care Nurse 3 #3 L Med Ankle -Ulcer Cleansing Rinsed/ Irrigated with Saline -Foul Odor after Cleansing No -Negative Pressure Wound Therapy N/A -Primary Dressing Applied C Hydrogel ($) -Primary Dressing Covered/Secured with Dry Gauze, Secured with Tape Treatment Response Procedure Tolerated Well Pain Scale: 0-10 Numeric Is Patient Pain Free? Yes Teaching: Wound Center Control Swelling with Leg Elevation -Person Taught Patient -Teaching Method Discussion -Response to teaching Verbalize understanding Dressing Your Wound -Person Taught Patient -Teaching Method Discussion, Demonstration -Response to teaching Verbalize understanding WC - Visit Discharge Discharge Condition Stable Ambulatory Status Ambulatory Transportation Private Auto Accompanied by self Medication Reconcilliation completed & No provided to patient/care provider Clinical Summary of Care Provided Yes Notes: Patient stated he will apply compression stockings at home per self. 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: CODE(S): I87.039 - 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 (3) Postphlebitic syndrome with ulcer, left: CODE(S): I87.012 - 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 (4) Ulcer of ankle: QUALIFIERS: Laterality: left Non-pressure ulcer stage: with fat layer exposed Qualified Code(s): L97.322 - Non-pressure chronic ulcer of left ankle with fat layer exposed (5) Varicose veins with ulcer and inflammation: CODE(S): I83.209 - Varicose veins of unspecified lower extremity with both ulcer of unspecified site and inflammation; L97.909 - Non-pressure chronic ulcer of unspecified part of unspecified lower leg with unspecified severity (6) Chronic venous insufficiency: (7) History of superficial thrombophlebitis: (8) Tobacco abuse counseling: CODE(S): Z71.6 - Tobacco abuse counseling (9) Gout: CODE(S): M10.9 - Gout, unspecified (10) Emphysema of lung: CODE(S): J43.9 - Emphysema, unspecified (11) Tobacco abuse: CODE(S): Z72.0 - Tobacco use (12) Swelling of lower limb: CODE(S): M79.89 - Other specified soft tissue disorders (13) Prostatism: CODE(S): N40.0 - Benign prostatic hyperplasia without lower urinary tract symptoms (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 His history is detailed above. He presented with a recurrent venous ulceration near the left medial malleolus. It appears as though he had become somewhat noncompliant with recommended conservative treatment measures, neglecting to elevate his lower extremities as much as previously recommended, and failing to wear his graduated compression stockings on a daily basis. These measures have been reimplemented. Leg elevation has again been discussed. The patient is to elevate his lower extremities is much as possible, even during daytime hours. Legs are to be elevated to heart level, or higher. He is to continue sleeping on a flat mattress at night. Activity has been encouraged. Prolonged idle sitting has been discouraged. Patient has been encouraged to stop smoking. At this juncture, only a very small ulceration persists near the left medial malleolus, measuring only 2 to 3 mm in size. Most notable, however, the large amount of surrounding erythema and inflammation has resolved. This resolution has occurred due to the use of Lotrisone cream 1% / 0.05%, which was prescribed due to a suspicion of dermatomycosis. Indeed, this appears to have been the case, and the patient has responded in ideal fashion. The patient is to discontinue the use of Lotrisone cream, and we are to implement the use of collagen hydrogel topically to the ulceration on a daily basis. He is to continue the aforementioned conservative treatment measures, outlined above, including leg elevation, graduated compression stockings of 20 to 30 mmHg compression, etc. The patient is to return in 2 weeks for reassessment. Total time: 29 minutes
== END 2021-07-13 23:59 ==
LOC: WC 10:20
PROVIDERS: PCP Family Medicine; Visit Provider Surgery
DX: I83.223 Varicose veins of left lower extremity with both ulcer of ankle and inflammation (principal); L97.322 Non-pressure chronic ulcer of left ankle with fat layer exposed; J43.9 Emphysema, unspecified; N40.0 Benign prostatic hyperplasia without lower urinary tract symptoms; Z79.51 Long term (current) use of inhaled steroids; R60.0 Localized edema; Z91.19 Patient's noncompliance with other medical treatment and regimen; F17.200 Nicotine dependence, unspecified, uncomplicated; I10 Essential (primary) hypertension
CPT/HCPCS: 11042

== ENCOUNTER 2021-07-14 10:00 | Outpatient (RCR) | payer MEDICARE, SELFPAY ==
[2021-07-14 00:14] VITALS: BP 156/76; PULSE 83; RESP 18; TEMP 36.3; BMI 24.4
[2021-07-14 10:04] VITALS: BP 131/65; PULSE 92; RESP 18; TEMP 36.4; BMI 24.4
--- NOTE | 2021-07-14 10:27 | HP.PCM_ITS ---
History of Present Illness Date of Service: 07/14/21 Chief Complaint: Ulceration, left medial malleolus History of Wound: This is an 85-year-old male with a longstanding history of chronic venous disease. He has been previously treated on several occasions in the [facility] for an ulceration located overlying the left medial malleolus, and returns at this time with a recurrence. He has been treated by conservative means in the past, resulting in successful healing. On September 19, 2020, the patient underwent endovenous laser ablation of the left great saphenous vein, duplicate left great saphenous vein, and the left small saphenous vein. A venous duplex examination performed 1 week later revealed a satisfactory and successful result. This resulted in successful healing of his left lower extremity venous ulceration, and he was subsequently discharged on November 18, 2020, with instructions to continue with leg elevation, avoidance of idle standing and sitting, maintaining an active lifestyle, maintaining optimal weight, and wearing graduated compression stockings of at least 20 to 30 mmHg compression on a daily basis. The patient sleeps on a flat mattress at night. He is also active during daytime hours. However, he has been relatively noncompliant and elevating his lower extremities, as advised. He has not been wearing his graduated compression stockings routinely, as had been recommended. An ulcer recurred near the left medial malleolus merced roximately 2 months ago he has been using collagenase Santyl topically, without resultant healing. He continues to smoke cigarettes, despite medical advice to the contrary. The patient has a history of superficial thrombophlebitis in the left lower extremity in the past. He suffers from chronic swelling and edema in both lower extremities, which is most prominent at the end of the day. 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 Restless legs Shortness of breath on exertion Smoker Wears glasses Wears hearing aid in both ears Home Medications budesonide-formoterol [Symbicort] 2 puff INHALATION BID 06/02/16 [History Last Taken 06/08/16 06:00 2 PUFF] amlodipine 5 mg PO DAILY 04/26/20 [History Last Taken Unknown] oxycodone-acetaminophen [Percocet] 1 - 2 tab PO Q8H PRN 4 Days #14 tab 09/18/20 [Rx Last Taken Unknown] Allergy/AdvReac Type Severity Reaction Status Date / Time ibuprofen [From Motrin] Allergy Swelling Verified 05/26/21 10:36 Surgical History History of cystoscopy History of esophagogastroduodenoscopy (EGD) History of parotidectomy Hx of basal cell carcinoma excision Hx of decompressive lumbar laminectomy Hx of finger joint replacement Hx of myringotomy Social History household members: spouse Smoking Status: Current every day smoker Vital Signs Vital Signs Vital Signs: 07/14/21 00:14 07/14/21 10:04 Temperature 97.3 F L 97.6 F L Temperature Source Temporal Pulse Rate 83 92 Respiratory Rate 18 18 Blood Pressure 156/76 H 131/65 H Blood Pressure Mean 102 87 Blood Pressure Source Monitor Blood Pressure Location Right Arm Weight Weight: 160 lb 11.834 oz Body Mass Index (BMI) 24.4 Physical Exam Const alert, oriented x3, no apparent distress, average body habitus and well nourished General Appearance: cooperative, comfortable, well kempt and well developed Orientation / Consciousness: awake, oriented to person, oriented to place and oriented to time HEENT normocephalic and head/scalp atraumatic Head and Scalp: normal to inspection, normocephalic and atraumatic External Ear: external ears normal Eyes PERRL and EOMs intact bilaterally General Eye: normal appearance of both eyes Resp normal respiratory effort, normal air movement, no retractions and no use of accessory muscles Effort and Inspection: able to speak in complete sentences Extremity no clubbing, cyanosis or edema, no calf tenderness and no pedal edema General Extremity: Negative for clubbing or cyanosis Skin Wound Narrative: The ulceration near the left medial malleolus is now completely healed and epithelialized. Umaña phlebectatica and numerous small telangiectasias are noted in this area. There is a small amount of faint, residual erythema. There is no sign of bacterial infection or cellulitis. Neuro oriented x3, CN's II-XII intact bilaterally and moves all extremities Psych Appearance: grossly normal and appropriate Attitude: calm Activity / Motor Behavior: appropriate eye contact Speech: normal speech Mood & Affect: euthymic mood Thought Process: normal thought process Thought Content: normal thought content Attention / Concentration: attention grossly intact Debridement Note Debridement Note No debridement was completed: No debridement was completed today (The patient's ulceration of the left medial malleolus is now completely healed and epithelialized.) Post-Debridement Measurements and Additional Note: Post-Debridement Dwight urements/Treatment - Nurse 1 - General Ulcer Assessment Start: 07/14/21 10:04 Freq: Status: Active Protocol: DENISE Activity Type Activity Date Activity User E-Sign Co-Sign Detail Recorded Client Recorded Date Recorded By Document 07/14/21 10:04 DL [id number] 07/14/21 10:08 DL 07/14/21 10:04 WC - Today's Visit Information Type of service Follow-up Visit (Physician/[facility] ) Arrival Mode Ambulatory Transfer Assistance None Patient Identification Verified (Name & Yes ) Patient Requires Transmission-Based No Precautions Height and Weight Body Mass Index (BMI) 24.4 BMI Classification Normal Vital Signs Temperature (97.8 F-99.1 F) 97.6 F L Temperature Source Temporal Pulse Rate (60-100) 92 Pulse Location Monitor Respiratory Rate (12-18) 18 Respiratory rate source Observation Blood Pressure (90/60-120/80) 131/65 H Blood Pressure Mean 87 Source Monitor History Since Last Visit- (Skip if this is Patient's initial visit) Had a fall/change in ADL's that may No increase risk of falls Signs or symptoms of abuse and/or No neglect since last visit Have you been in the hospital since your No last visit? Has dressing in place as prescribed Yes Has compression in place as prescribed Yes Has offloadiing in place as prescribed N/A Experienced any changes in pain level or No management Pain Scale: 0-10 Numeric Is Patient Pain Free? Yes - Nurse 1 - General Ulcer Measurement Start: 07/14/21 10:04 Freq: Status: Active Protocol: Activity Type Activity Date Activity User E-Sign Co-Sign Detail Recorded Client Recorded Date Recorded By Document 07/14/21 10:04 DL [id number] 07/14/21 10:08 DL 07/14/21 10:04 Wound Center Nurse 1 #3 L Med Ankle -Current Size (cm) - Length 0.1 -Current Size (cm) - Width 0.1 -Current Size (cm) - Depth 0.1 -Total Square Cm 0.01 -Photo Taken No -Exudate Amt None Present -Wound Margin Flat & Intact -Granulation Amt None Present (0 %) -Necrosis Amt Small (1-33%) -Necrotic Tissue Type Adherent Slough -Structure Exposed N/A -Texture (Corine-wound Skin Appearance) Scarring -Moisture (Corine-wound Skin Appearance) No Abnormality -Color (Corine-wound Skin Appearance) Hemosiderin Staining -Temperature (Corine-wound Skin No Abnormality Appearance) (Pt Warm) -Tenderness on Palpation (Corine-wound No Skin Appearance) -Ulcer Cleansing Rinsed/ Irrigated with Saline -Foul Odor after Cleansing No -Anesthetic Used 4% Lidocaine Solution Left Calf (cm) 32 Left Ankle (cm) 21.2 Assessment/Plan Assessment/Plan (1) Ulcer of ankle: QUALIFIERS: Laterality: left Non-pressure ulcer stage: with fat layer exposed Qualified Code(s): L97.322 - Non-pressure chronic ulcer of left ankle with fat layer exposed (2) Venous hypertension, chronic, with ulcer and inflammation: CODE(S): I87.339 - Chronic venous hypertension (idiopathic) with ulcer and inflammation of unspecified lower extremity QUALIFIERS: Laterality: left Qualified Code(s): I87.332 - Chronic venous hypertension (idiopathic) with ulcer and inflammation of left lower extremity; L97.929 - Non-pressure chronic ulcer of unspecified part of left lower leg with unspecified severity (3) Postphlebitic syndrome with ulcer, left: CODE(S): I87.012 - 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 (4) Varicose veins with ulcer and inflammation: CODE(S): I83.209 - Varicose veins of unspecified lower extremity with both ulcer of unspecified site and inflammation; L97.909 - Non-pressure chronic ulcer of unspecified part of unspecified lower leg with unspecified severity (5) 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: CODE(S): I87.039 - 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 (6) Gout: CODE(S): M10.9 - Gout, unspecified (7) Chronic venous insufficiency: (8) Tobacco abuse counseling: CODE(S): Z71.6 - Tobacco abuse counseling (9) Emphysema of lung: CODE(S): J43.9 - Emphysema, unspecified (10) Tobacco abuse: CODE(S): Z72.0 - Tobacco use (11) Swelling of lower limb: CODE(S): M79.89 - Other specified soft tissue disorders (12) History of superficial thrombophlebitis: (13) Prostatism: CODE(S): N40.0 - Benign prostatic hyperplasia without lower urinary tract symptoms (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 His history is detailed above. He presented with a recurrent venous ulceration near the left medial malleolus. It appears as though he had become somewhat noncompliant with recommended conservative treatment measures, neglecting to elevate his lower extremities as much as previously recommended, and failing to wear his graduated compression stockings on a daily basis. These measures have been reimplemented. Leg elevation has again been discussed. The patient is to elevate his lower extremities is much as possible, even during daytime hours. Legs are to be elevated to heart level, or higher. He is to continue sleeping on a flat mattress at night. Activity has been encouraged. Prolonged idle sitting has been discouraged. Patient has been encouraged to stop smoking. At this juncture, the patient's ulceration appears to be comple tely healed and epithelialized. 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 He has been advised to continue using Lotrisone topically for another week or 2. Otherwise, the patient is to be discharged, as his ulceration is now completely healed. He is to continue the aforementioned conservative treatment measures, outlined above, including leg elevation, graduated compression stockings of 20 to 30 mmHg compression, active lifestyle, and refrain from prolonged idle sitting, etc. The patient is to follow-up henceforth on an as-needed basis. Total time: 26 minutes
== END 2021-07-15 14:05 | disposition home or self-care (01) ==
LOC: WC 10:00
PROVIDERS: PCP Family Medicine; Visit Provider Surgery
DX: Z09 Encounter for follow-up examination after completed treatment for conditions other than malignant neoplasm (principal); J43.9 Emphysema, unspecified; I10 Essential (primary) hypertension; F17.200 Nicotine dependence, unspecified, uncomplicated; Z79.899 Other long term (current) drug therapy; N40.0 Benign prostatic hyperplasia without lower urinary tract symptoms; M79.89 Other specified soft tissue disorders
CPT/HCPCS: 99213; G0463

== ENCOUNTER 2021-07-22 08:16 | Outpatient (CLI) | payer MEDICARE, SELFPAY ==
--- NOTE | 2021-07-22 08:31 | CT_ITS ---
EXAM: CT NECK WITH INTRAVENOUS CONTRAST CLINICAL INDICATION: NECK MASS RIGHT SIDE INSIDE MOUTH TECHNIQUE: Helically acquired images were obtained of the neck with intravenous contrast. This CT exam was performed using one or more of the following dose reduction techniques: automated exposure control, adjustment of the mA and/or kV according to patient size, and/or use of iterative reconstruction technique. This report was created using [employer] report generation technology. CONTRAST: IV 75mL Isovue-300 COMPARISON: Mar 11 2017 6:55am ct neck PET Nov 22 2016 10:39am FINDINGS: NASOPHARYNX: Unremarkable. SUPRAHYOID NECK: Unremarkable. Oropharynx, oral cavity, parapharyngeal space and retropharyngeal space are unremarkable. INFRAHYOID NECK: Unremarkable. The larynx, hypopharynx and supraglottis are unremarkable. SUBMANDIBULAR/PAROTID GLANDS: Asymmetric enlargement of the right parotid gland as compared to left. Stable enhancing nodule in the right parotid gland measuring 12 x 7.5 x 10 mm. It previously measured around 12 mm. There is also another nodule anterior that enhances measuring 3.7 mm. Se 2 IM: 74. Despite stability, the prior PET was positive for activity of this lesion. Slow growing neoplasm is not excluded. THYROID: Unremarkable. No enlarged or calcified nodules. BONES/JOINTS: There are degenerative findings of the cervical spine. No acute fracture. SOFT TISSUES: Unremarkable. VASCULATURE: There are calcifications around the internal carotid arteries. This is consistent for atherosclerotic disease. LYMPH NODES: Unremarkable. No lymphadenopathy. LUNG APICES: There are scattered blebs and bullae. This can be seen in pulmonary emphysema. CT/Soft Tissue Neck WITH Contrast IMPRESSION: Asymmetric enlargement of the right parotid gland as compared to left. Stable enhancing nodule in the right parotid gland measuring 12 x 7.5 x 10 mm. It previously measured around 12 mm. There is also another nodule anterior that enhances measuring 3.7 mm. Se 2 IM: 74. Despite stability, the prior PET was positive for activity of this lesion. Slow growing neoplasm is not excluded. Electronically Signed: Jairo Hill MD at 19:22 EST ,
[2021-07-22 08:46] LABS: CREATININE FINGERSTICK 1.2 mg/dL (0.70-1.30)
== END 2021-07-22 23:59 | disposition home or self-care (01) ==
LOC: CT 08:19
PROVIDERS: PCP Family Medicine; Referring Provider Otolaryngology; Visit Provider Otolaryngology
DX: R22.1 Localized swelling, mass and lump, neck (principal)
CPT/HCPCS: 70491; Q9967

== ENCOUNTER 2021-08-27 09:47 | Outpatient (CLI) | payer MEDICARE, SELFPAY ==
--- NOTE | 2021-08-27 13:26 | PFTCOMP ---
COMPLETE PULMONARY FUNCTION TEST INTERPRETATION Brief HPI: Patient is an 86 year old male, currently under the care of Dr. Ulrich, who presents to [facility] for complete pulmonary function tests secondary to diagnosis of COPD. Respiratory therapist reports good effort and reproducible results. Interpretation: Forced expiration spirometry shows a mild large airways obstructive ventilatory defect with an FEV1 of 81% predicted. There is no significant bronchodilator response by strict ATS criteria. Spirograms are of good quality and plateau slowly, indicating slowly emptying areas of the lungs. The respiratory flow volume loop shows decreased expiratory flow rates at all lung volumes consistent with airway obstruction. Lung volumes by body plethysmography show a normal total lung capacity at 5.95 L, 102% predicted. All other lung volumes are within normal limits. Diffusion capacity by carbon monoxide is normal at 76% predicted. The airway resistance is elevated. Compared to previous pulmonary function tests from 12/16/2016, there is been significant decrease in spirometry and DLCO. Impression: Irreversible mild large airways obstructive ventilatory defect with a symmetric reduction diffusing capacity. There has been significant worsening over the last 5 years.
== END 2021-08-27 23:59 | disposition home or self-care (01) ==
PROVIDERS: PCP Family Medicine; Visit Provider Family Medicine
DX: J44.9 Chronic obstructive pulmonary disease, unspecified (principal)
CPT/HCPCS: 94060; 94726; 94729

== ENCOUNTER 2021-09-01 12:50 | Outpatient (CLI) | payer MEDICARE, SELFPAY ==
[2021-09-01 13:17] VITALS: PULSE 102; PULSE 103; PULSE 104; PULSE 91; PULSE 92; PULSE 99; O2SAT 91; O2SAT 92; O2SAT 93
--- NOTE | 2021-09-02 08:21 | PCM.PSN.6M ---
PSN 6 Minute Walk Test 6 Minute Walk Test 6 Minute Walk Test: 6 Minute Walk Test PSN:6-Minute Walk Test Start: 09/01/21 13:16 Freq: Status: Active Protocol: RESP.6MINW Document 09/01/21 13:17 FR (Rec: 09/01/21 13:21 FR [id number]) 6 Minute Walk Test Date Performed 09/01/21 Time Performed 13:00 Height 5 ft 8 in Weight: 74.843 kg Weight in Pounds 165.[address]: Shoshana Ulrich Assistive device used: None Pre-test Oxygen Delivery Method Room Air Pulse Ox (%) 93 Pulse Rate (60-100 beats/min) 91 Dyspnea Agustina Scale (0-10) 0 Exertion Agustina Scale (6-20) 6 1st minute Oxygen Delivery Method Room Air Pulse Ox (%) 93 Pulse Rate (60-100 beats/min) 99 2nd minute Oxygen Delivery Method Room Air Pulse Ox (%) 93 Pulse Rate (60-100 beats/min) 102 H 3rd minute Oxygen Delivery Method Room Air Pulse Ox (%) 91 Pulse Rate (60-100 beats/min) 103 H 4th minute Oxygen Delivery Method Room Air Pulse Ox (%) 91 Pulse Rate (60-100 beats/min) 104 H 5th minute Oxygen Delivery Method Room Air Pulse Ox (%) 91 Pulse Rate (60-100 beats/min) 104 H 6th minute Oxygen Delivery Method Room Air Pulse Ox (%) 91 Pulse Rate (60-100 beats/min) 104 H Dyspnea Agustina Scale (0-10) 2 Exertion Agustina Scale (6-20) 8 Post-test Oxygen Delivery Method Room Air Pulse Ox (%) 92 Pulse Rate (60-100 beats/min) 92 Full Laps Walked 13 Partial Lap, Number of Tiles Walked 17 Total Distance Walked (ft) 784 Interpretation Interpretation: The patient ambulated 784 feet over the course of 6 minutes beginning on room air without assistive devices. Pretesting oxygen saturation was noted to be 93% on room air. With ambulation, the ipter oxygen saturation was 91%. There was no significant exertional oxygen desaturation. Recommendations Recommendations: There is no indication for the use of supplemental oxygen at this time.
== END 2021-09-01 23:59 | disposition home or self-care (01) ==
PROVIDERS: PCP Family Medicine; Visit Provider Family Medicine
DX: J44.9 Chronic obstructive pulmonary disease, unspecified (principal)
CPT/HCPCS: 94618

== ENCOUNTER 2021-09-08 10:04 | Emergency (ER) | payer MEDICARE, SELFPAY ==
[2021-09-08 10:06] VITALS: BP 172/105; PULSE 70; RESP 20; TEMP 36.2; O2SAT 100; BMI 23.9
--- NOTE | 2021-09-08 10:19 | CT_ITS ---
STUDY: CT ABDOMEN AND PELVIS WITH CONTRAST REASON FOR EXAM: Male, 86 years old. Right lower abdominal pain after bowel movement today RADIATION DOSAGE (If Supplied By Facility): CTDIvol = ( 16.59 ) mGy, DLP = ( 583.52 ) mGycm TECHNIQUE: Transaxial images were obtained from the dome of the diaphragm to the symphysis pubis without oral contrast. IV 100mL Isovue-300 was administered. Sagittal and coronal images were reconstructed. Individualized dose optimization techniques were used for this CT. COMPARISON: 02/14/2017, PET scan 11/22/2016 FINDINGS: Stable chronic changes of the lung bases including rounded atelectasis of the medial right lower lobe as compared to prior CT 02/14/2017. Heart is mildly enlarged. Normal liver. Normal gallbladder and extrahepatic biliary system. There are multiple benign calcified granulomata of the spleen. Normal pancreas. Normal bilateral adrenal glands. No hydronephrosis. No suspicious renal lesions. Normal visualized stomach. Small bowel anterior and lateral to the transverse and right colon (stable) but no dilated loops of small bowel. Extensive diverticulosis throughout the colon. Portions of the colon are not well evaluated due to lack of distention. There is relative wall thickening of the sigmoid colon on image 68 of series 2 with adjacent fat stranding (image 71 series 601). the appendix is visualized and appears normal. There is diffuse atherosclerotic calcification of the abdominal aorta, without a demonstrated aneurysm. Normal inferior vena cava. Normal retroperitoneum. Normal urinary bladder. Surgical clips of the prostate gland is noted. Small fat-containing inguinal hernias. There are diffuse degenerative changes of the visualized lumbar spine. CT/Abdomen/Pelvis W IV Cont ONLY IMPRESSION: 1. Diverticulosis with wall thickening and pericolonic stranding of the sigmoid colon suggesting diverticulitis. Electronically Signed: Tiago Bobby MD ([place]) at 11:58 EDT Reading Location ID and State: [place] , Service support ,
--- NOTE | 2021-09-08 10:21 | EKG12_ITS ---
Test Reason : ABDOMINAL PAIN Blood Pressure : / mmHG Vent. Rate : 068 BPM Atrial Rate : 068 BPM P-R Int : 272 ms QRS Dur : 106 ms QT Int : 410 ms P-R-T Axes : 061 -69 031 degrees QTc Int : 435 ms Sinus rhythm with 1st degree A-V block Left axis deviation Poor R wave progression Abnormal ECG Confirmed by CLAIR TAPIA, ROB ([id number]), editor newspaper GIAN LIGHT ([id number]) on 09/10/2021 7:20:04 AM Referred By: JESSICA Confirmed By:ROB SELF MD
--- NOTE | 2021-09-08 10:23 | EX.ED.DYSGE1 ---
HPI History of Present Illness Chief Complaint: Abd Pain Informant: patient Narrative Narrative: Patient presents with right-sided abdominal pain. He states he had some pain yesterday. It was in the same area. It was right side and right upper quadrant region. Mostly toward the side. It did not radiate to the back completely. He had some mild decreased appetite but no nausea vomiting yesterday. It seemed to get better during the midday and then came back a little bit more later on. He slept well last night. He woke up this morning and seemed to be feeling okay. He then moved his bowels. After that sometime it started to increase again. He had some nausea and dry heaves but no vomiting. No fevers or chills. If he presses in the right upper quadrant and right flank area or if he takes a very deep breath it worsens the pain. But he is not at all short of breath. The pain is clearly in his abdomen not in his chest. Patient has had a kidney stone before but not sure if this is the same. He has no history of any intra-abdominal surgery. No history of AAA. 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 Restless legs Shortness of breath on exertion Smoker Wears glasses Wears hearing aid in both ears Home Medications amlodipine 5 mg PO DAILY 04/26/20 [History Last Taken Unknown] albuterol sulfate 1 puff INHALATION Q4H PRN PRN 09/08/21 [History Last Taken Unknown] amoxicillin-pot clavulanate 1 tab PO BID #20 tab 09/08/21 [Rx Last Taken Unknown] finasteride 5 mg PO DAILY 09/08/21 [History Last Taken Unknown] iaqeewbasrb-fxqjustst-prjdkcon [Trelegy Ellipta] 1 inh INHALATION DAILY 09/08/21 [History Last Taken Unknown] hydrocodone-acetaminophen 1 tab PO Q6H PRN 3 Days #10 tab 09/08/21 [Rx Last Taken Unknown] ondansetron 4 mg PO Q8H PRN #10 tab 09/08/21 [Rx Last Taken Unknown] tamsulosin 0.4 mg PO DAILY 09/08/21 [History Last Taken Unknown] tramadol 50 mg PO BID PRN PRN 09/08/21 [History Last Taken Unknown] Allergy/AdvReac Type Severity Reaction Status Date / Time ibuprofen [From Motrin] Allergy Swelling Verified 09/08/21 10:09 Surgical History History of cystoscopy History of esophagogastroduodenoscopy (EGD) History of parotidectomy Hx of basal cell carcinoma excision Hx of decompressive lumbar laminectomy Hx of finger joint replacement Hx of myringotomy Social History household members: spouse Smoking Status: Current every day smoker tobacco type: cigarettes ROS ROS ED Constitutional Constitutional ED: Denies chills or fever(s) ENT ENT ED: Denies rhinorrhea or sore throat Cardiovascular Cardiovascular: Denies chest pain, palpitations or racing heartbeat Respiratory/Chest Respiratory/Chest: Denies cough or dyspnea Gastrointestinal Gastrointestinal: Reports abdominal pain and nausea; Denies constipation, diarrhea, melena or vomiting Genitourinary Genitourinary ED: Denies dysuria, hematuria or urinary frequency Musculoskeletal Musculoskeletal: Denies back pain or myalgias Integumentary Denies rash Neurologic Neurologic: Denies headache(s) Psychiatric Psychiatric: Denies anxiety or depression Endocrine Endocrinology: Denies polydipsia or polyuria Allergic/Immunologic Allergic/Immunologic ED: Denies urticaria EXAM Physical Exam Const Vital Signs: 09/08/21 10:06 09/08/21 12:52 Temperature 97.2 F L Temperature Source Temporal Pulse Rate 70 67 Respiratory Rate 20 H 18 Blood Pressure 172/105 H 132/84 H Blood Pressure Mean 127 100 Pulse Ox 100 96 Oxygen Delivery Method Room Air Room Air Positive well nourished and well developed General Appearance ED: well developed and NAD; Negative for cyanotic or diaphoretic HEENT Reports moist mucous membranes Eyes General Eye ED: Negative for pale conjunctiva or scleral icterus Neck no JVD Chest Wall inspection of chest normal and palpation of chest normal Resp normal respiratory effort and clear to auscultation bilaterally Resp Narrative: Patient has easy unlabored breathing without pain. When I have him take a really deep breath he gets some pain but it is clearly down in the abdominal area. He does not have pleuritic pain Effort and Inspection: Negative for pain with movement Auscultation: Negative for rales, rhonchi or wheezes Cardio regular rate and regular rhythm GI normal to inspection, nondistended, normoactive bowel sounds GI Narrative: Abdomen is soft. Nondistended. Bowel sounds are normal. He has an area on the right upper portion of his abdomen in the approximately mid to anterior axillary line that has tenderness. Remainder the abdomen is benign. I do not feel any pulsatile mass, mass or hear a bruit. Palpation: soft Back/Spine no CVA tenderness Extremity normal to inspection General Extremety ED: Negative for edema General Extremity: Negative for edema Neuro oriented x3 Sensorium / Orientation: alert Psych mental status grossly normal Skin no rashes or lesions noted and no wounds MDM MDM MDM Narrative Medical decision making narrative: Patient's white count and CBC are normal. Electrolytes show mild elevation in creatinine. Bilirubin is 1.2 remainder of studies show no marked abnormalities. Lipase is negative. Urinalysis is unremarkable. CT scan is more consistent with a diverticulitis. On repeat exam he is much more comfortable. He does have some tenderness in that area. His lungs are still clear. He can take a deep breath without any discomfort. Plan will be to treat his diverticulitis. We discussed reasons to return that would include worsening pain, fevers, vomiting, blood in the stool or any other concerns. Lab Data Attestation: I reviewed the patient's lab results. Labs: Laboratory Results - last 24 hr 09/08/21 09/08/21 09/08/21 10:40 10:40 11:35 WBC 5.1 RBC 4.65 Hgb 14.4 Hct 44.0 MCV 94.6 H MCH 31.0 MCHC 32.7 RDW Std Deviation 58.5 H RDW Coeff of Beth 16.9 H Plt Count 208 MPV 10.1 Immature Gran % (Auto) 0.400 Neut % (Auto) 66.9 Lymph % (Auto) 20.3 [place] % (Auto) 8.7 Eos % (Auto) 3.1 Baso % (Auto) 0.6 Absolute Neuts (auto) 3.4 Absolute Lymphs (auto) 1.03 Nucleated RBC % 0 Sodium 136 Potassium 4.2 Chloride 103 Carbon Dioxide 29.0 Anion Gap 4 L BUN 20 H Creatinine 1.42 H Estim Creat Clear Calc 37.46 Est GFR (MDRD) Af Amer 61 Est GFR (MDRD) Non-Af 51 L BUN/Creatinine Ratio 14.1 Glucose 104 Calcium 9.5 Total Bilirubin 1.20 H AST 16 ALT 19 Alkaline Phosphatase 96 Total Protein 7.7 Albumin 3.8 Globulin 3.9 Albumin/Globulin Ratio 1.0 Lipase 78 Urine Color Yellow Urine Clarity Clear Urine pH 7.0 Ur Specific White 1.005 Urine Protein Negative Urine Glucose (UA) Normal Urine Ketones 5 H Urine Occult Blood Negative Urine Nitrite Negative Urine Bilirubin Negative Urine Urobilinogen Normal Ur Leukocyte Esterase Negative Urine RBC 0 SEEN Urine WBC 0 SEEN Ur Squamous Epith Cells 0 SEEN Urine Bacteria 0 SEEN Urine Mucus 0 SEEN Radiography Diagnostic Testing: Clinical Impression(s) from Imaging Studies Abdomen/Pelvis CT 09/08/21 10:19 IMPRESSION: 1. Diverticulosis with wall thickening and pericolonic stranding of the sigmoid colon suggesting diverticulitis. Electronically Signed: Tiago Bobby MD (Bro[place]) at 11:58 EDT Reading Location ID and State: [address] [place] [address] , Service support , EKG Initial EKG: Comments: EKG done for upper abdominal pain and elderly male. EKG read by me shows sinus rhythm with first-degree AV block and overall rate of 68. No ectopy. No acute ST elevation or depression. DE interval is long at 272 ms. QTc and QRS are normal. Discharge Plan Triage Chief Complaint: Abd Pain ED Provider: Emiliano Anguiano Dx/Rx/DC Orders Clinical Impression: Diverticulitis Instructions: ED Diverticulitis Prescriptions: New hydrocodone-acetaminophen 5-325 mg tablet 1 tab PO Q6H PRN (Reason: pain) 3 Days Qty: 10 RF: 0 ondansetron 4 mg tablet,disintegrating 4 mg PO Q8H PRN (Reason: nausea and vomiting) Qty: 10 RF: 0 amoxicillin-pot clavulanate 875-125 mg tablet 1 tab PO BID Qty: 20 RF: 0 No Action amlodipine 5 MG tablet 5 mg PO DAILY RF: 0 tramadol 50 mg tablet 50 mg PO BID PRN PRN (Reason: Pain) RF: 0 tamsulosin 0.4 mg capsule 0.4 mg PO DAILY RF: 0 albuterol sulfate 90 mcg/actuation HFA aerosol inhaler 1 puff INHALATION Q4H PRN PRN (Reason: sob/wheezing) RF: 0 finasteride 5 mg tablet 5 mg PO DAILY RF: 0 Trelegy Ellipta 100-62.5-25 mcg blister with device 1 inh INHALATION DAILY RF: 0 Primary Care Provider: Shoshana Ulrich Referrals: Shoshana Ulrich MD [Primary Care Provider] - 3-5 Days if not improving Disposition Disposition: Home, Self Care
[2021-09-08] MEDS: Ondansetron 4 MG/2 ML Vial IV (10:34)
[2021-09-08] MEDS: Morphine 2 MG/ML Syringe IV (10:34)
[2021-09-08 10:55] LABS: Absolute Lymphocyte Count 1.03 X10^3/uL (0.83-4.51); Absolute Neutrophil Count 3.4 X10^3/uL (2.0-7.7); Basophil# 0.03 X10^3/uL; Basophil% 0.6 % (0-1); Eosinophil# 0.16 X10^3/uL; Eosinophils% 3.1 % (0-5); Hemoglobin 14.4 g/dL (13.0-16.5); Lymphocyte # 1.03 X10^3/ul (0.83-4.51); Lymphocyte % 20.3 % (19-41); Mean Corp Hgb Conc 32.7 g/dL (32-36); Mean Corpuscular Volume 94.6 fL (80-94); Mean Platelet Vol. 10.1 fl (6.2-12.0); Monocyte# 0.44 X10^3/uL; Monocyte% 8.7 % (0-10); NRBC Flagged by Analyzer 0 % (0-5); Neutrophil % 66.9 % (47-70); Platelet Count 208 K/mm3 (150-450); RBC Distribution Width CV 16.9 % (11.6-14.6); RBC Distribution Width SD 58.5 fl (35.1-43.9); Red Blood Count 4.65 M/mm3 (4.6-6.2); White Blood Count 5.1 K/mm3 (4.4-11.0)
[2021-09-08 11:16] LABS: AST(SGOT) 16 U/L (15-37); Alanine Aminotransfer ALT/SGPT 19 U/L (16-61); Albumin, Serum 3.8 g/dL (3.2-5.0); Alkaline Phosphatase 96 U/L (45-117); Anion Gap 4 (5-15); BUN 20 mg/dL (7-18); BUN/Creat Ratio 14.1 RATIO (10-20); Calcium,Total 9.5 mg/dL (8.5-10.1); Chloride 103 mmol/L (98-107); Creatinine, Serum 1.42 mg/dL (0.70-1.30); EST Glomerular Filtration Rate 51 mL/min (>60); Est Glom Filt Rate - Afr Amer 61 mL/min (>60); Estimated Creatinine Clearance 37.46 ml/min; Globulin 3.9 g/dL (2.2-4.2); Glucose 104 mg/dL (74-106); Lipase 78 U/L (73-393); Potassium 4.2 mmol/L (3.5-5.1); Protein, Total 7.7 g/dL (6.4-8.2); Sodium Level 136 mmol/L (136-145)
[2021-09-08 11:46] LABS: Bacteria 0 SEEN /hpf (None Seen); Mucous, Urine 0 SEEN /hpf (<or=2+); Red Blood Cells-Urine 0 SEEN /hpf (0-5); Squamous Epithelial Cells - UA 0 SEEN /hpf (0-5); White Blood Cells 0 SEEN /hpf (0-5)
[2021-09-08 11:53] LABS: Color, Urine Yellow (Yellow); Glucose, Dipstick Normal (Normal); Ketone-Dipstick 5 mg/dl (Negative); Leukocyte Esterase-Dipstick Negative /ul (Negative); Nitrite-Dipstick Negative (Negative); Occult Blood-Urine Negative /ul (Negative); Protein-Dipstick Negative (Negative); Specific Gravity, Urine 1.005 (1.002-1.030); Urine Bilirubin Dipstick Negative (Negative); Urine Clarity Clear (Clear); Urine Urobilinogen Normal (Normal)
[2021-09-08 12:52] VITALS: BP 132/84; PULSE 67; RESP 18; O2SAT 96
[2021-09-08 13:35] VITALS: BP 135/83; PULSE 85; RESP 15; O2SAT 99
== END 2021-09-08 13:36 | disposition home or self-care (01) ==
PROVIDERS: Emergency Provider Emergency Medicine; PCP Family Medicine; Visit Provider Emergency Medicine
DX: K57.92 Diverticulitis of intestine, part unspecified, without perforation or abscess without bleeding (principal); J43.9 Emphysema, unspecified; I10 Essential (primary) hypertension; F17.210 Nicotine dependence, cigarettes, uncomplicated; Z79.899 Other long term (current) drug therapy
CPT/HCPCS: 74177; 80053; 81001; 83690; 85025; 93005; 96361; 96374; 96375; 99285; J7030; Q9967; A4216; J2405

== ENCOUNTER → 2021-11-05 | Outpatient (CLI) | payer MEDICARE, SELFPAY ==
--- NOTE | 2021-11-05 07:27 | MRI_ITS ---
STUDY: MRI LUMBAR SPINE WITHOUT CONTRAST REASON FOR EXAM: Male, 86 years old. LUMBOSACRAL RADICULOPATHY TECHNIQUE: Standardized fat and water weighted pulse sequences were obtained in the sagittal and axial planes. COMPARISON: MRI of the lumbar spine dated SEPTEMBER 17, 2020. X-ray the lumbar spine dated OCTOBER 02, 2014. FINDINGS: T12-L1: Mild to moderate disc space narrowing with diffuse disc bulging. Normal bilateral facet joints. Normal central canal and bilateral lateral recesses. Normal bilateral intervertebral neural foramina. There is straightening of the normal lumbar lordosis. There is an S-shaped thorocolumbar scoliosis with a levoscoliosis of the thoracic spine and dextroscoliosis of the lumbar spine. Normal conus medullaris that terminates at the T12-L1 level. L1-2: Severe disc space narrowing with a diffuse disc spur complex combined with mild facet joint and ligament of flava hypertrophy resulting in mild central canal stenosis. Mild right proximal foraminal stenosis with nerve root impingement. Normal left neural foramen. L2-3: Moderate to severe disc space narrowing with a minimal disc spur complex. Mild Schmorl''s node change. Moderate central canal stenosis is present due to a combination of the disc spur complex and moderate facet joint and ligament of flava hypertrophy. Moderate right foraminal stenosis with nerve root impingement. Normal left neural foramen. L3-4: Severe disc space narrowing with a diffuse disc osteophyte complex. Mild to moderate facet joint and ligament of flava hypertrophy contributes to mild central canal stenosis. Mild left foraminal stenosis. Normal right neural foramen. L4-5: Severe disc space narrowing with a minimal diffuse disc bulge/spur complex. Moderate to severe central canal stenosis is present due to a combination of the disc bulging and primarily facet joint and ligament of flava hypertrophy. Mild bilateral foraminal stenosis without nerve root compression. L5-S1: Mild to moderate disc space narrowing with minimal annular bulging. Left laminectomy defect. Mild to moderate facet joint and ligamenta flava hypertrophy and epidural lipomatosis contributes to mild to moderate central canal stenosis. Mild bilateral foraminal stenosis. Normal visualized sacral ala. There is mild paraspinal muscular atrophy. MRI/Spine Lumbar (Routine) IMPRESSION: 1. Multilevel degenerative changes, as described above. 2. Moderate to severe central canal stenosis at L2-L3, L3-L4, and L5-S1 Electronically Signed: Liban Avilez MD at 11:52 EDT ,
== END | disposition home or self-care (01) ==
PROVIDERS: PCP Family Medicine; Referring Provider Nurse Practitioner Family; Visit Provider Nurse Practitioner Family
DX: M46.96 Unspecified inflammatory spondylopathy, lumbar region (principal); M48.07 Spinal stenosis, lumbosacral region; M43.16 Spondylolisthesis, lumbar region; M51.37 Other intervertebral disc degeneration, lumbosacral region; M47.27 Other spondylosis with radiculopathy, lumbosacral region
CPT/HCPCS: 72148

== ENCOUNTER 2022-04-05 08:29 | Day surgery (SDC) | payer MEDICARE, SELFPAY ==
[2022-04-05] VITALS (9 sets, daily range): BP systolic 118–149; BP diastolic 73–86; PULSE 63–82; RESP 15–17; TEMP 36.1–36.6; O2SAT 92–95; BMI 25.0
[2022-04-05] MEDS: Lactated Ringers 1,000 ML 15 ML IV (08:50)
[2022-04-05] MEDS: Cefazolin 2 GM in 0.9% Normal Saline 100 ML IV (10:07)
--- NOTE | 2022-04-05 10:10 | RAD_ITS ---
INDICATION: SPINAL CORD STIM INSERTION EXAMINATION/TECHNIQUE: 9 spot intraoperative films were provided for interpretation. Total Fluoroscopic Time: 6 minutes 56 seconds AND number of Fluoroscopic Images: 9 COMPARISON: None. FINDINGS: Limited intraoperative fluoroscopic imaging of spinal cord stimulator device placement was obtained. Limited imaging demonstrates 2 spinal cord simulator leads terminating at the level of the thoracic spine. RAD/Lumbar Spine 2 or 3 Views IMPRESSION: Limited intraoperative imaging of spinal cord stimulator device placement. Please see intraoperative report for detailed findings. Electronically Signed: Cuong Roldan, at 15:07 EST ,
[2022-04-05] MEDS: Lidocaine 2% (20 ml mdv) 20 ML Vial (10:26)
[2022-04-05] MEDS: Bupivacaine 0.25% 30 ML Vial (10:26)
[2022-04-05] MEDS: Bacitracin 500 UNITS/GM PACKET (10:44)
--- NOTE | 2022-04-05 12:33 | PCM.OPRPT ---
Report of Operation Date of Procedure: 04/05/22 Description of Surgical Findings:: Pre-Operative Diagnosis:?Lumbosacral radiculopathy, lumbosacral degenerative disc disease, lumbosacral spinal stenosis, postlaminectomy syndrome of the lumbar spine. Post-Operative Diagnosis:?Lumbosacral radiculopathy, lumbosacral degenerative disc disease, lumbosacral spinal stenosis, postlaminectomy syndrome of the lumbar spine. Surgery/Procedure Performed::?1.? Spinal cord stimulator thoracolumbar leads placement x2 #2 spinal cord stimulator Medtronic intellus generator placement #3 spinal cord stimulator generator pocket creation at the right gluteal region #4 spinal cord stimulator simple programming, 5-intraoperative fluoroscopic interpretation Description of Surgical Findings:: MAC COMPLICATIONS: None BLOOD LOSS: Minimal Implanted device: Spinal cord stimulator lead [id number] #[id number] lot number [id number], lead #2? [id number] lot number [id number],? Medtronic spinal cord stimulator generator intellus serial number [id number] PROCEDURE IN DETAIL: History and physical today was reviewed. Risks and benefits of procedure explained. The patient understood, agreed to procedure, informed consent was obtained. IV inserted per routine protocol. The patient was taken to the operating room, placed in the prone position with a pillow positioned underneath the abdomen. A 2 g of Ancef IV piggyback was infused per anesthesia. The lower back and right gluteal area was prepped and draped in a sterile fashion using iodine x3 Ioban was placed.? The C-arm was brought in position for AP view at the T12-L2 vertebral bodies under direct visualization fluoroscopy on a true AP view the T12-L1 interlaminar space was identified skin and subcutaneous tissue and size approximately 10 cc of a mix of 2% lidocaine and 0.25% Marcaine using a 25-gauge regular needle followed by a 25-gauge 3-1/2 inch spinal needle towards the interlaminar space at T12-L1, the right gluteal region area skin and subcutaneous tissue in size with the above mixture using approximately 15 cc with a 25-gauge regular needle using an 11-gauge blade the skin and subcutaneous tissue were then taken down and a horizontal approximately 3 inch incision hemostasis was maintained via cautery as well as pressure once the appropriate size of the pocket was created a 2-0 silk sutures were then taken down for the anchors of the battery once hemostasis was maintained the pocket was then hydrated via a 4 x 4 saline soaked and left temporarily until continuation of the procedure,? the skin and subcutaneous tissue were then anesthetized and using an 11-gauge blade was then taken down to the skin and subcutaneous tissue using a 14-gauge 5 inch Touhy needle provided by the [employer] kit the needle was passed through the skin towards the interlaminar space at T12-L1 and a left paramedian approach the needle was then advanced under direct visualization fluoroscopy towards the interlaminar space at T12-L1 [id number] technique was then carried to air towards the interlaminar space at T12-L1 once the tip of the needle was in the epidural space and loss of resistance was encountered to air and after confirmation of AP as well as oblique view of the spinal cord stimulator lead was then advanced under direct visualization fluoroscopy to be at the tip of the lead at top of T8 and the bottom of the lead around mid T10 after confirmation of AP as well as lateral view to confirm correct placement of the lead in the posterior compartment of the epidural space the previous procedure was then repeated to the lower level at L1-2 to the left lumbar paramedian approach, ?the second lead was then inserted under direct visualization with fluoroscopy to be at the mid T8 and mid T10 area the leads were were then connected to the external neurostimulator and patient was then awakened to confirm satisfactory coverage of the painful area once satisfactory coverage was then achieved the stylette of each needle was then removed and the skin and subcutaneous tissue on to the left of the paramedian needles was then taken anesthetized with a total of 10 cc of the previous mixture of 0.25% Marcaine and 2% lidocaine using a 25-gauge regular needle the vertical incision was then taken down through the skin and subcutaneous tissue towards the fascia making sure hemostasis was then maintained via cautery, the spinal cord stimulator leads were then passed through the above incision and secured using the Medtronic anchor sutured down with a 2-0 silk to the fascia at that level the spinal cord stimulator leads were then tunneled via a tunneler provided by the [employer] kit towards the previously incised spinal cord stimulator battery at the right gluteal region skin and subcutaneous tissue were anesthetized with approximately 10 cc of a mix of 2% lidocaine and 0.25% Marcaine using a 25 gauge regular needle, skin and subcutaneous tissue was then taken down with the 11-gauge blade hemostasis was maintained with Bovie and direct pressure the incision was then taken down to the fascia and the battery was then secured with the 2-0 silk sutures that were the spinal cord stimulator leads the upper lead was then marked the new until spinal cord stimulator battery was then provided Via [employer] kit the battery was then reattached of the spinal cord stimulator make ensure that the top lead is attached to the top position from 0-7 electrodes and the bottom from 8-15 electrodes once impedance was then checked to be in the proper average number the intellus battery was then placed in a TYRX antibacterial pouch then inserted into the pocket and impedance with when checked again the pocket was then inspected to confirm hemostasis in place, the intellus battery was then secured to the fascia using a 2-0 silk to the upper eyes of the battery confirming an upward writing of the intellus facing posterior,? once complete confirmation the battery was then placed in the position and the the mid vertical paramedian and the horizontal gluteal incisions were then closed primarily through 0 Vicryl in an interrupted fashion followed by a 3-0 Vicryl in a running fashion followed by a 4-0 Monocryl to the skin, hemostasis was then maintained during the procedure the skin was then covered with a Steri-Strips and bacitracin patient was then returned into the supine position in a stable condition and returned to recovery in a stable condition patient experienced no signs or symptoms of intrathecal or intravascular injection patient experienced no paresthesia the procedure was completed without any apparent difficulty any complication the patient appeared to tolerate well, motor as well as sensory function was unchanged from prior to the procedure. ESTIMATED BLOOD LOSS: Minimal less than 25 mL ASSESSMENT AND PLAN: This is a 86-year-old male with lumbosacral radiculopathy, lumbosacral degenerative disc disease, lumbosacral spinal stenosis, postlaminectomy syndrome of the lumbar spine, status post 1.? Spinal cord stimulator thoracolumbar leads placement x2 #2 spinal cord stimulator Medtronic intellus generator placement #3 spinal cord stimulator generator pocket creation at the right gluteal region #4 spinal cord stimulator simple programming, 5-intraoperative fluoroscopic interpretation patient will continue his current medications a prescription was provided to the patient? Keflex 500 mg 1 p.o. every 8 hours for 7 days,?Percocet 5-325 mg 1 tablet every 4 hours as needed for acute postoperative pain, postop instruction were given in writing to the patient as well as verbally as well as his , patient will follow approximately 1 week for reevaluation.
== END 2022-04-05 14:44 | disposition home or self-care (01) ==
LOC: SDC 08:32 → AC 08:35
PROVIDERS: PCP Family Medicine; Referring Provider Anesthesiology Pain Medicine; Visit Provider Anesthesiology Pain Medicine
PROC: (CPT 63685; principal; 2022-04-05 09:45)
DX: M96.1 Postlaminectomy syndrome, not elsewhere classified (principal); M51.17 Intervertebral disc disorders with radiculopathy, lumbosacral region; M48.07 Spinal stenosis, lumbosacral region; I10 Essential (primary) hypertension; Z79.899 Other long term (current) drug therapy
CPT/HCPCS: 63685; 63650 ×2; 00300; 72100; 76000; C1713; J7120; J2405

== ENCOUNTER 2022-04-09 12:06 | Emergency (ER) | payer MEDICARE, SELFPAY ==
[2022-04-09 12:06] VITALS: BP 108/79; PULSE 89; RESP 18; TEMP 36.9; O2SAT 99; BMI 25.0
[2022-04-09 13:14] LABS: Mucous, Urine 0 SEEN /hpf (<or=2+); Squamous Epithelial Cells - UA 0 SEEN /hpf (0-5)
[2022-04-09 13:15] LABS: Color, Urine Yellow (Yellow); Glucose, Dipstick Normal (Normal); Ketone-Dipstick Negative (Negative); Leukocyte Esterase-Dipstick 25 /ul (Negative); Nitrite-Dipstick Negative (Negative); Occult Blood-Urine Negative /ul (Negative); Protein-Dipstick 15 mg/dl (Negative); Urine Bilirubin Dipstick Negative (Negative); Urine Clarity Clear (Clear); Urine Urobilinogen Normal (Normal)
[2022-04-09 13:22] LABS: Bacteria RARE /hpf (None Seen); Red Blood Cells-Urine 0-5 SEEN /hpf (0-5); White Blood Cells 0-5 SEEN /hpf (0-5)
--- NOTE | 2022-04-09 13:42 | ED.RN ---
PT SPENT 20 MINUTES IN BATHROOM. PT REPORTS LARGE BOWEL MOVEMENT, REPORTS RELIEF OF ABDOMINAL PAIN. DR. BENJAMIN INFORMED.
--- NOTE | 2022-04-09 14:01 | ED.VIS.GI ---
HPI HPI - GI History of Present Illness Chief Complaint: Abd Pain Informant: patient Abdominal Pain/Flank Pain Onset: Today Context: Gradual Onset Timing: Continuous Quality: Cramping Location: RLQ and LLQ Worsened by: Nothing Relieved by: - (Bowel movement) Nausea/Vomiting/Emesis GI Symptom: Negative for Nausea or Vomiting Diarrhea/Melena/Hematochezia GI Symptom: Positive for Hematochezia Stool Quality: Positive for BRB per rectum Associated Symptoms Associated Symptoms: Negative for Dysuria, Frequency or Hematuria Narrative Narrative: Patient presents with abdominal pain and constipation. Patient states that he had a spinal stimulator placed 5 days ago. Patient states he is still on oxycodone for his chronic back pain. Patient states he had a hard bowel movement this morning that was small. Patient states that after that he started having rectal bleeding. Patient states the bleeding has stopped. Patient states he started taking some laxatives at home. Patient started having diarrhea here in the emergency department. Patient states his abdominal pain got better after this. Patient describes his pain as cramping. Patient states it got better after having large bowel movement here in the emergency department. 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 100 mcg-umeclid 62.5 mcg-vilant 25 mcg inhalat.powder (Trelegy Ellipta) 1 inh inhalation DAILY 09/08/21 [History Last Taken Unknown] tamsulosin 0.4 mg capsule 0.4 mg PO QHS 09/08/21 [History Last Taken Unknown] levofloxacin 500 mg tablet 500 mg PO BID 03/31/22 [History Last Taken Unknown] naproxen 500 mg tablet 500 mg PO BID 03/31/22 [History Last Taken Unknown] pentoxifylline 400 mg tablet,extended release 400 mg PO DAILY CIRCULATION 03/31/22 [History Last Taken Unknown] Allergy/AdvReac Type Severity Reaction Status Date / Time ibuprofen [From Motrin] Allergy Swelling Verified 04/09/22 12:06 Surgical History History of cystoscopy History of esophagogastroduodenoscopy (EGD) History of parotidectomy History of varicose vein stripping Hx of basal cell carcinoma excision Hx of decompressive lumbar laminectomy Hx of finger joint replacement Hx of myringotomy Social History household members: spouse Smoking Status: Current every day smoker tobacco type: cigarettes ROS ROS ED Constitutional Constitutional ED: Denies chills or fever(s) Eyes Eyes: Denies blurry vision or change in vision ENT ENT ED: Denies rhinorrhea or sore throat Cardiovascular Cardiovascular: Denies chest pain or palpitations Respiratory/Chest Respiratory/Chest: Denies cough or dyspnea Gastrointestinal Gastrointestinal: Reports constipation and diarrhea; Denies nausea or vomiting Genitourinary Genitourinary ED: Denies dysuria or hematuria Musculoskeletal Musculoskeletal: Denies back pain or neck pain Integumentary Denies abscess or rash Neurologic Neurologic: Denies headache(s) or weakness Allergic/Immunologic Allergic/Immunologic ED: Denies mouth swelling or urticaria EXAM Physical Exam Const Vital Signs: 04/09/22 12:06 Temperature 98.4 F Temperature Source Temporal Pulse Rate 89 Respiratory Rate 18 Blood Pressure 108/79 Blood Pressure Mean 88 Pulse Ox 99 Oxygen Delivery Method Room Air Positive well nourished and well developed General Appearance ED: well developed HEENT Reports moist mucous membranes Neck supple and no JVD Resp normal respiratory effort and clear to auscultation bilaterally Cardio regular rate, regular rhythm and no murmurs GI normal to inspection, nondistended, normoactive bowel sounds and non-tender Palpation: soft Extremity normal to inspection General Extremety ED: Negative for edema or tenderness General Extremity: Negative for edema Neuro oriented x3, CN's II-XII intact bilaterally and no sensory deficits noted Sensorium / Orientation: alert Motor Exam: strength 5/5 throughout Psych mental status grossly normal Skin no rashes or lesions noted Skin Narrative: The incisions over the lumbar area are healing well. There is no signs of any infection. There is no tenderness. MDM MDM MDM Narrative Medical decision making narrative: Patient had a large bowel movement here in the emergency department. Patient felt better after this. Patient wants to go home. Urinalysis was obtained per protocol. There is no evidence of urinary tract infection or hematuria. Patient patient was instructed to follow-up with his primary care physician in 5 to 7 days. Patient was advised that the oxycodone will cause constipation. Patient was instructed to take laxatives as needed. Patient understood and was agreeable with the plan. All questions were answered. Lab Data Labs: Laboratory Results - last 24 hr 04/09/22 13:05 Urine Color Yellow Urine Clarity Clear Urine pH 7.0 Ur Specific [place] 1.010 Urine Protein 15 H Urine Glucose (UA) Normal Urine Ketones Negative Urine Occult Blood Negative Urine Nitrite Negative Urine Bilirubin Negative Urine Urobilinogen Normal Ur Leukocyte Esterase 25 H Urine RBC 0-5 SEEN Urine WBC 0-5 SEEN Ur Squamous Epith Cells 0 SEEN Urine Bacteria RARE Urine Mucus 0 SEEN Discharge Plan Triage Chief Complaint: Abd Pain ED Provider: Santana Sandoval Dx/Rx/DC Orders Clinical Impression: Abdominal pain, Constipation Instructions: ED Constipation (Adult) Prescriptions: No Action amlodipine 5 MG tablet 5 mg PO DAILY tamsulosin 0.4 mg capsule 0.4 mg PO QHS Label Comments: take 1 capsule by mouth at bedtime albuterol sulfate 90 mcg/actuation HFA aerosol inhaler 1 puff INHALATION Q4H PRN PRN (Reason: sob/wheezing) Label Comments: inhale 2 puffs by mouth every 4 hours if needed for wheezing finasteride 5 mg tablet 5 mg PO DAILY Label Comments: take 1 tablet by mouth once daily Trelegy Ellipta 100-62.5-25 mcg blister with device 1 inh INHALATION DAILY Label Comments: inhale 1 puff by mouth and INTO THE LUNGS once daily pentoxifylline 400 mg Tablet Extended Release 400 mg PO DAILY Rx Instructions: must administer with a meal/food levofloxacin 500 mg Tablet 500 mg PO BID naproxen 500 mg Tablet 500 mg PO BID Primary Care Provider: Shoshana Ulrich Referrals: Shoshana Ulrich MD [Primary Care Provider] - 5-7 Days Disposition Disposition: Home, Self Care
== END 2022-04-09 14:19 | disposition home or self-care (01) ==
PROVIDERS: Emergency Provider Emergency Medicine; PCP Family Medicine; Visit Provider Emergency Medicine
DX: K59.00 Constipation, unspecified (principal); J43.9 Emphysema, unspecified; K92.1 Melena; R10.9 Unspecified abdominal pain; M54.9 Dorsalgia, unspecified; R19.7 Diarrhea, unspecified; G89.29 Other chronic pain; I10 Essential (primary) hypertension; F17.210 Nicotine dependence, cigarettes, uncomplicated; Z79.899 Other long term (current) drug therapy
CPT/HCPCS: 81001; 99282

== ENCOUNTER → 2022-07-12 | Outpatient (CLI) | payer MEDICARE, SELFPAY ==
--- NOTE | 2022-07-12 12:17 | EKG12_ITS ---
Test Reason : PRE-OP Blood Pressure : / mmHG Vent. Rate : 081 BPM Atrial Rate : 081 BPM P-R Int : 248 ms QRS Dur : 098 ms QT Int : 386 ms P-R-T Axes : 000 -65 039 degrees QTc Int : 448 ms Sinus rhythm with marked sinus arrhythmia with 1st degree A-V block Left axis deviation Abnormal ECG Confirmed by MAGO TAPIA, NINFA ([id number]), editor department GIAN LIGHT ([id number]) on 07/13/2022 9:48:50 AM Referred By: Sam Foster Confirmed By:NINFA MERCEDES MD
[2022-07-12 13:39] LABS: Hematocrit 37.8 % (40-54); Hemoglobin 12.6 g/dL (13.0-16.5); Mean Corp Hgb Conc 33.3 g/dL (32-36); Mean Corpuscular Hgb 33.9 pg (27.0-32.0); Mean Corpuscular Volume 101.6 fL (80-94); Mean Platelet Vol. 10.6 fl (6.2-12.0); Platelet Count 156 K/mm3 (150-450); RBC Distribution Width CV 15.8 % (11.6-14.6); RBC Distribution Width SD 59.7 fl (35.1-43.9); Red Blood Count 3.72 M/mm3 (4.6-6.2); White Blood Count 6.3 K/mm3 (4.4-11.0)
[2022-07-12 14:06] LABS: Anion Gap 9 (5-15); BUN 22 mg/dL (7-18); BUN/Creat Ratio 17.5 RATIO (10-20); Calcium,Total 8.5 mg/dL (8.5-10.1); Chloride 103 mmol/L (98-107); Creatinine, Serum 1.26 mg/dL (0.70-1.30); EST Glomerular Filtration Rate 58 mL/min (>60); Est Glom Filt Rate - Afr Amer 70 mL/min (>60); Glucose 81 mg/dL (74-106); Potassium 3.8 mmol/L (3.5-5.1); Sodium Level 137 mmol/L (136-145)
== END | disposition home or self-care (01) ==
LOC: PSN 12:15
PROVIDERS: PCP Family Medicine; Referring Provider Urology; Visit Provider Urology
DX: Z01.810 Encounter for preprocedural cardiovascular examination (principal); Z01.812 Encounter for preprocedural laboratory examination
CPT/HCPCS: 36415; 80048; 85027; 93005

== ENCOUNTER → 2022-07-23 | Outpatient (CLI) | payer MEDICARE, SELFPAY ==
--- NOTE | 2022-07-23 09:06 | EPI_PTH ---
PATIENT: DESMOND WINCHESTER LOC: [facility] U#:[id number] AGE/SX: 87/M ROOM: RE07/23/[address]: Dr. Sam Foster MD : 1935 BED: DIS: 07/23/2022 SPEC #: [id number] RECD: 07/23/22 14:55 STATUS: FARTUN DELGADILLO #: [id number] KANE: 07/23/22 09:[address]: Sam Foster DEPT: SURGICAL PATHOLOGY RECD BY: Verenice Herrera ENTERED: 07/26/22 07:49 SP TYPE: EPIDIDYMIS OTHR DR: Dr. Shoshana Ulrich MD [facility] Tissues: Epididymis, NOS Procedures: Surgery Specimen Level III HEADER OPERATION: Left spermatocelectomy PRE-OP DIAGNOSIS: Spermatocele of epididymis single left TISSUE SUBMITTED: Left epididymis MICROSCOPIC DIAGNOSIS Left epididymis, epididymectomy: Epididymis with focal changes consistent with spermatocele. MANA:katie 07/27/2022 MICROSCOPIC DESCRIPTION Slides are reviewed. GROSS DESCRIPTION Received in fixative is one container labeled with the patient's name and designated left epididymis. The specimen consists of an elongated piece of lora, indurated tissue measuring 4.5 x 1.0 x 0.6 cm. Sections do not reveal any mass lesion. The entire specimen is submitted in two cassettes. / MANA:katie 07/26/2022 TC:5 CPT: 62551
== END | disposition home or self-care (01) ==
LOC: LABSPEC 15:21
PROVIDERS: PCP Family Medicine; Visit Provider Urology
DX: N43.40 Spermatocele of epididymis, unspecified (principal)
CPT/HCPCS: 88304

== ENCOUNTER 2022-10-07 08:01 | Emergency (ER) | payer MEDICARE, SELFPAY ==
[2022-10-07 08:03] VITALS: BP 164/96; PULSE 80; RESP 14; TEMP 36.6; O2SAT 94; BMI 25.0
--- NOTE | 2022-10-07 08:16 | VDLE_ITS ---
Reason For Study: Rt Leg Swelling RIGHT LEFT GSV is normal. CFV is compressible, spontaneous, competent, CFV is compressible, spontaneous, competent and demonstrates pulsatile venous flow. and demonstrates pulsatile venous flow. FV is compressible, spontaneous, competent and demonstrates pulsatile venous flow. POP V is compressible, phasic, and INCOMPETENT for greater than 1.0 second. T/P Trunk is compressible. PTV is compressible. RT PerV is compressible. Procedure This is a venous duplex using B-mode, color flow and spectral Doppler. Exam performed portable in ED. The exam was diagnostic. A preliminary report was called and/or faxed to Dr. Ruby. VL/Venous Duplex US, Unilateral Interpretation Summary There is no evidence of right lower extremity deep vein thrombosis. Right great saphenous vein appears patent and compressible segmentally. Pulsatile venous flow is noted in the right common femoral, femoral veins consistent with proximal venous hypertension or obstruct ion. Clinical correlation would be appropriate. Incompetent right popliteal vein Normal flow patterns left common femoral vein although with pulsatile venous fl ow Ordering Physician: Michele Ruby Performed By: Landen Worthington RVT
--- NOTE | 2022-10-07 08:18 | ED.VIS.LOWEX ---
HPI History of Present Illness Chief Complaint: Edema Informant: patient Onset/Context/Timing Onset: Days (2) Context: Gradual Onset Timing: Continuous Location: R ankle/lower leg Current Severity: Moderate Maximum Severity: Moderate Worsened by: nothing Relieved by: nothing Associated Symptoms Associated Symptoms: Negative for Loss of Funtion Narrative Narrative: Pain presents with unilateral swelling in the right ankle and lower leg for the last 2 days or so. He has not noticed any in his left. He denies any chest pain shortness of breath systemic symptoms or injury. He states he has some chronic issues with his right heel and ankle that he is following with someone for, he denies any increased pain but he does have chronic pain when he moves and walks, it is no worse lately. He is also noticed a dry scaly nonpainful rash on his right foot for the last couple weeks. No history of DVT or PE. He takes no 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. No recent travel out of the area, immobilization, hospitalization, or surgery. He is on amlodipine for blood pressure. [facility] Medical History (Updated 10/07/22 @ 09:[address] Michele Ruby MD) Enlarged prostate Hemorrhoid Hypertension Lung disease Shoulder pain Home Medications amlodipine 5 mg tablet 5 mg PO DAILY 07/02/22 [History Last Taken Unknown] finasteride 5 mg tablet 5 mg PO DAILY 07/02/22 [History Last Taken Unknown] tamsulosin 0.4 mg capsule 0.4 mg PO QHS 07/02/22 [History Last Taken Unknown] tramadol 50 mg tablet 50 mg PO Q12H PRN 07/02/22 [History Last Taken Unknown] Allergy/AdvReac Type Severity Reaction Status Date / Time ibuprofen [From Motrin] Allergy Swelling Verified 10/07/22 08:04 Surgical History History of hand surgery S/P insertion of spinal cord stimulator Social History Smoking Status: Current every day smoker tobacco type: cigarettes alcohol intake: current alcohol intake frequency: 0-2 drinks per day Alcohol type: hard liquor ROS ROS ED Constitutional Constitutional ED: Denies chills or fever(s) Cardiovascular Cardiovascular: Denies chest pain, palpitations or racing heartbeat Respiratory/Chest Respiratory/Chest: Denies dyspnea Musculoskeletal Musculoskeletal: Denies extremity pain or neck pain Integumentary Reports rash; Denies Abrasions or wounds Neurologic Neurologic: Denies paresthesias or weakness EXAM Physical Exam Const Vital Signs: 10/07/22 08:03 Temperature 97.9 F Temperature Source Temporal Pulse Rate 80 Respiratory Rate 14 Blood Pressure 164/96 H Blood Pressure Mean 118 Pulse Ox 94 Oxygen Delivery Method Room Air Positive well nourished and well developed General Appearance ED: well developed and NAD Neck full ROM and supple Back/Spine normal ROM and normal to inspection Extremity Extremity Narrative: Edema to both lower legs, pitting. Definitely asymmetric and worse on the right especially in the ankle and distal lower leg, goes about to the mid ramesh and no edema proximal to that on either side. No signs of cellulitis, there is a very slight amount of faint erythema distal right ramesh that is nontender and nonindurated. No tenderness in the foot, full range of motion of ankle and knee without any difficulty, no palpable cords, no calf tenderness, and all compartments of the lower leg and thigh are soft and nondistended. Neuro oriented x3, no focal motor deficits and no sensory deficits noted Sensorium / Orientation: alert Psych mental status grossly normal and thought process normal Skin no wounds Skin Narrative: 2 separate patches of nontender well-circumscribed scaly nonerythematous skin, both at the right heel, 1 on the medial side and 1 on the lateral side. MDM MDM MDM Narrative Medical decision making narrative: I expect that the patient has edema in his legs related to his amlodipine. However it definitely is asymmetric so I think doing a venous ultrasound to rule out a DVT is reasonable. This was done, I reviewed the images and the report which I agree with and it is negative for DVT. The installer technician did note that there were lots of shadowing in the arteries consistent with calcifications. The patches of rash on his right heel are consistent with tinea pedis, he already has a spray that he is using and advised to continue that. The slight erythema anterior right lower/distal ramesh is probably related to the swelling but I do not think it indicates infection right now he was advised to watch that which she will. I did a BMP to evaluate his kidney function, which looks good. I advised close outpatient follow-up with his doctor, he is only on amlodipine 5 mg I think he can continue that for now until he follows up. He has compression stockings, I think it is reasonable for him to use those for this since he has no history of heart disease or congestive heart failure. Also advised that the patient take a baby aspirin daily due to what appears to be peripheral arterial disease. He has no symptoms of claudication. Lab Data Attestation: I reviewed the patient's lab results. Labs: Laboratory Results - last 24 hr 10/07/22 08:30 Sodium 141 Potassium 3.7 Chloride 109 H Carbon Dioxide 30.0 Anion Gap 2 L BUN 16 Creatinine 1.24 Estim Creat Clear Calc 42.14 Est GFR (MDRD) Af Amer 71 Est GFR (MDRD) Non-Af 59 L BUN/Creatinine Ratio 12.9 Glucose 111 H Calcium 8.5 Discharge Plan Triage Chief Complaint: Edema ED Provider: Michele Ruby Dx/Rx/DC Orders Clinical Impression: Asymmetric edema of both lower extremities, Tinea pedis of right foot Instructions: ED Peripheral Edema, Bilateral Prescriptions: No Action tamsulosin 0.4 mg capsule 0.4 mg PO QHS Label Comments: take 1 capsule by mouth at bedtime finasteride 5 mg tablet 5 mg PO DAILY Label Comments: take 1 tablet by mouth once daily amlodipine 5 mg tablet 5 mg PO DAILY tramadol 50 mg tablet 50 mg PO Q12H PRN Referrals: Doctor,Your [Non-Staff] - As soon as possible Activity Restrictions/Additional Instructions: Your amlodipine may be causing some of the swelling, and your chronic issues in your right ankle and foot may be contributing to the right lower extremity being worse; your amlodipine is a very low dose so at this time continue it, but follow-up with your doctor to discuss this and the possibility of an alternative for her blood pressure if needed. Your blood pressure today is 164/96. Ultrasound shows no blood clots, but what appears to be calcifications in the arteries. Taking daily baby aspirin would be reasonable to prevent problems. You may use compression stockings on your legs as needed for swelling. Disposition Disposition: Home, Self Care
[2022-10-07 08:50] LABS: Anion Gap 2 (5-15); BUN 16 mg/dL (7-18); BUN/Creat Ratio 12.9 RATIO (10-20); Calcium,Total 8.5 mg/dL (8.5-10.1); Chloride 109 mmol/L (98-107); Creatinine, Serum 1.24 mg/dL (0.70-1.30); EST Glomerular Filtration Rate 59 mL/min (>60); Est Glom Filt Rate - Afr Amer 71 mL/min (>60); Estimated Creatinine Clearance 42.14 ml/min; Glucose 111 mg/dL (74-106); Potassium 3.7 mmol/L (3.5-5.1); Sodium Level 141 mmol/L (136-145)
== END 2022-10-07 09:14 | disposition home or self-care (01) ==
PROVIDERS: Emergency Provider Emergency Medicine; PCP Family Medicine; Visit Provider Emergency Medicine
DX: R60.0 Localized edema (principal); I10 Essential (primary) hypertension; G89.29 Other chronic pain; F17.210 Nicotine dependence, cigarettes, uncomplicated; B35.3 Tinea pedis; Z79.899 Other long term (current) drug therapy
CPT/HCPCS: 36415; 80048; 93971; 99282

== ENCOUNTER → 2022-10-22 | Outpatient (CLI) | payer MEDICARE, SELFPAY ==
--- NOTE | 2022-10-22 13:57 | ECHOD_ITS ---
Reason For Study: POSSIBLE PHTN Procedure This was a 2D Doppler, Color Flow transthoracic echocardiogram. Exam performed in department. Left Ventricle Normal LV size. Left ventricular systolic function is normal. The estimated ejection fraction is 55 %. Stage 1 diastolic dysfunction. No regional wall motion abnormalities noted. Right Ventricle Normal RV size. Normal systolic function. Mitral Valve Normal mitral valve. Mild-Moderate (1-2+) eccentric mitral valve insufficiency. Tricuspid Valve Normal tricuspid valve. Mild to moderate (1-2+) tricuspid valve insufficiency. Pulmonary artery systolic pressure is 38 mmHg. Aortic Valve Trisinus/trileaflet aortic valve. Mild (1+) eccentric aortic valve insufficiency. Pulmonic Valve Normal pulmonic valve. Great Vessels Normal aortic root. The pulmonary artery is normal size. Normal inferior vena cava. Pericardium/Pleural No pericardial effusion. MMode/2D Measurements & Calculations LVIDd: 5.5 cm IVSd: 1.0 cm LAV(MOD-bp): 81.3 ml LVIDs: 4.2 cm LVPWd: 1.00 cm LAV(MOD-bp) Indexed: 43.7 ml/m2 RVDd: 3.7 cm FS: 24.3 % LAV(MOD-sp2): 101.6 ml LAV(MOD-sp4): 59.6 ml LVAd ap4: 32.1 cm2 SV(MOD-sp4): 52.1 ml SV(sp4-el): 56.5 ml LVLd ap4: 8.5 cm EDV(MOD-sp4): 98.4 ml EDV(sp4-el): 102.5 ml LVAs ap4: 20.3 cm2 LVLs ap4: 7.6 cm ESV(MOD-sp4): 46.4 ml ESV(sp4-el): 46.0 ml EF(MOD-sp4): 52.9 % EF(sp4-el): 55.1 % LA A4 area: 22.1 cm2 LA dimension(2D): 3.3 cm RA A4 area: 19.6 cm2 Time Measurements MV dec time: 0.22 sec Doppler Measurements & Calculations MV E max gamaliel: 67.6 cm/sec Lat Peak E' Gamaliel: 6.6 cm/sec Med Peak E' Gamaliel: 5.3 cm/sec MV A max gamaliel: 120.0 cm/sec E/E' lat: 10.2 E/E' med: 12.8 MV E/A: 0.56 MV V2 max: 126.8 cm/sec AI max gamaliel: 497.5 cm/sec MV max P.4 mmHg MV dec slope: 319.6 cm/sec2 AI max P.1 mmHg MV V2 mean: 54.8 cm/sec MV mean P.6 mmHg AI dec slope: 170.0 cm/sec2 MV V2 VTI: 35.0 cm AI P1/2t: 856.9 msec LV V1 max: 131.9 cm/sec MR max gamaliel: 606.0 cm/sec PA V2 max: 92.0 cm/sec LV V1 max P.0 mmHg MR max P.9 mmHg PA V2 mean: 57.3 cm/sec LV V1 mean P.1 mmHg MR mean gamaliel: 494.1 cm/sec LV V1 mean: 94.4 cm/sec MR mean P.5 mmHg LV V1 VTI: 33.0 cm MR VTI: 279.1 cm TR max gamaliel: 294.4 cm/sec TR max P.7 mmHg ECHO/Echo Complete Interpretation Summary Normal LV size. Left ventricular systolic function is normal. The estimated ejection fraction is 55 %. Stage 1 diastolic dysfunction. Mild to moderate (1-2+) tricuspid valve insufficiency. Mild-Moderate (1-2+) eccentric mitral valve insufficiency. Ordering Physician: Shoshana Ulrich Referring Physician: Shoshana Ulrich Performed By: Josselin Medeiros RCS
--- NOTE | 2022-10-22 14:30 | EKG12_ITS ---
Test Reason : IRREGULAR HEART RATE Blood Pressure : / mmHG Vent. Rate : 084 BPM Atrial Rate : 084 BPM P-R Int : 232 ms QRS Dur : 110 ms QT Int : 404 ms P-R-T Axes : 052 -71 056 degrees QTc Int : 477 ms Sinus rhythm with marked sinus arrhythmia with 1st degree A-V block Left anterior fascicular block Abnormal ECG Confirmed by MAGO TAPIA, NINFA ([id number]), makeup editor GIAN LIGHT ([id number]) on 10/22/2022 2:49:37 PM Referred By: Shoshana Ulrich Confirmed By:NIFNA MERCEDES MD
--- NOTE | 2022-10-22 14:31 | EKG12_ITS ---
Test Reason : IRREGULAR HEART RATE Blood Pressure : / mmHG Vent. Rate : 072 BPM Atrial Rate : 072 BPM P-R Int : 246 ms QRS Dur : 108 ms QT Int : 426 ms P-R-T Axes : 072 -70 049 degrees QTc Int : 466 ms Sinus rhythm with 1st degree A-V block Left anterior fascicular block Abnormal ECG Confirmed by MAGO TAPIA, NINFA ([id number]), communications editor GIAN LIGHT ([id number]) on 10/22/2022 2:49:21 PM Referred By: Shoshana Ulrich Confirmed By:NINFA MERCEDES MD
--- NOTE | 2022-10-22 14:32 | EKG12_ITS ---
Test Reason : IRREGULAR HEART RATE Blood Pressure : / mmHG Vent. Rate : 090 BPM Atrial Rate : 090 BPM P-R Int : 272 ms QRS Dur : 108 ms QT Int : 404 ms P-R-T Axes : 000 -70 052 degrees QTc Int : 494 ms Sinus rhythm with sinus arrhythmia with 1st degree A-V block Left axis deviation Abnormal ECG Confirmed by MAGO TAPIA, NINFA ([id number]), news editor GIAN LIGHT ([id number]) on 10/22/2022 2:49:53 PM Referred By: Shoshana Ulrich Confirmed By:NINFA MERCEDES MD
--- NOTE | 2022-10-22 14:33 | EKG12_ITS ---
Test Reason : IRREGULAR HEART RATE Blood Pressure : / mmHG Vent. Rate : 088 BPM Atrial Rate : 088 BPM P-R Int : 000 ms QRS Dur : 106 ms QT Int : 426 ms P-R-T Axes : 000 -71 071 degrees QTc Int : 515 ms Normal sinus rhythm Left axis deviation Prolonged QT Abnormal ECG Confirmed by MAGO TAPIA, NINFA ([id number]), writer editor GIAN LIGHT ([id number]) on 10/22/2022 2:50:12 PM Referred By: Shoshana Ulrich Confirmed By:NINFA MERCEDES MD
== END | disposition home or self-care (01) ==
LOC: CVS 13:53
PROVIDERS: PCP Family Medicine; Referring Provider Family Medicine; Visit Provider Family Medicine
DX: I49.9 Cardiac arrhythmia, unspecified (principal); J44.9 Chronic obstructive pulmonary disease, unspecified; R60.0 Localized edema
CPT/HCPCS: 93005; 93306

== ENCOUNTER 2022-11-03 09:23 | Observation (INO) | payer MEDICARE, SELFPAY ==
[2022-10-28 13:40] LABS: Hematocrit 38.9 % (40-54); Hemoglobin 12.5 g/dL (13.0-16.5); Mean Corp Hgb Conc 32.1 g/dL (32-36); Mean Corpuscular Hgb 31.8 pg (27.0-32.0); Mean Platelet Vol. 10.5 fl (6.2-12.0); Platelet Count 212 K/mm3 (150-450); Red Blood Count 3.93 M/mm3 (4.6-6.2); White Blood Count 7.4 K/mm3 (4.4-11.0)
[2022-10-28 13:50] LABS: Prothrombin Time (Protime)PT. 13.3 SECONDS (11.7-14.9)
[2022-10-28 13:51] LABS: Partial Thromboplast Time 27.5 Seconds (24.1-36.2)
[2022-10-28 14:27] LABS: AST(SGOT) 21 U/L (15-37); Alanine Aminotransfer ALT/SGPT 25 U/L (16-61); Albumin, Serum 3.2 g/dL (3.2-5.0); Alkaline Phosphatase 88 U/L (45-117); Anion Gap 6 (5-15); BUN 22 mg/dL (7-18); BUN/Creat Ratio 16.7 RATIO (10-20); Bilirubin, Direct 0.14 mg/dL (0.00-0.30); Calcium,Total 8.4 mg/dL (8.5-10.1); Chloride 111 mmol/L (98-107); Creatinine, Serum 1.32 mg/dL (0.70-1.30); EST Glomerular Filtration Rate 55 mL/min (>60); Est Glom Filt Rate - Afr Amer 66 mL/min (>60); Globulin 3.7 g/dL (2.2-4.2); Glucose 116 mg/dL (74-106); Potassium 4.4 mmol/L (3.5-5.1); Protein, Total 6.9 g/dL (6.4-8.2); Sodium Level 142 mmol/L (136-145)
[2022-11-03] VITALS (17 sets, daily range): BP systolic 109–153; BP diastolic 62–95; PULSE 62–86; RESP 16–18; TEMP 36.2–36.7; O2SAT 88–97; BMI 23.1
--- NOTE | 2022-11-03 | FORE_PTH ---
PATIENT: DESMOND WINCHESTER LOC: [facility] U#:[id number] AGE/SX: 87/M ROOM: LA310 RE11/03/[address]: Dr. Sam Foster MD : 1935 BED: 1 DIS: 11/04/2022 SPEC #: [id number] RECD: 11/03/22 12:52 STATUS: FARTUN DELGADILLO #: [id number] KANE: 11/03/22 00:[address]: Sam Foster DEPT: SURGICAL PATHOLOGY RECD BY: Deonte Esteban ENTERED: 11/03/22 12:52 SP TYPE: FOREIGN B OTHR DR: MD Dr. Shoshana Jj MD Tissues: FOREIGN BODY Procedures: Surgery Specimen Level I HEADER OPERATION: Cysto, TUR prostate, Olympus, removal of Urolift device PRE-OP DIAGNOSIS: BPH with obstruction TISSUE SUBMITTED: Urolift device MICROSCOPIC DIAGNOSIS Urolift device tissue, biopsy: Benign fibroglandular tissue with minimal chronic inflammation. AM:katie 11/04/2022 MICROSCOPIC DESCRIPTION Slides are reviewed. GROSS DESCRIPTION Received is one container labeled with the patient's name and designated Urolift device. The specimen consists of five metallic eliezer, each measure approximately 1.0 cm in length and 0.2 cm in diameter. Also present in the specimen container are multiple mucoid to light lora soft tissue measuring in aggregate 1.0 x 0.2 x <0.1 cm. The tissue is submitted in its entirety in one cassette. / AM:katie 11/03/2022 TC:5 CPT: 17856
[2022-11-03] MEDS: Lactated Ringers 1,000 ML 15 ML IV ×2 (09:17→12:21)
--- NOTE | 2022-11-03 09:26 | DCINST_ITS ---
Discharge Instructions Diet Discharge Diet: No restrictions Activity Discharge Activity: Return to Normal Activity Dressing / Incision Call your doctor if you observe: Fever of 101 or Higher Follow Up Care Please Follow Up With: Sam Foster MD When: 2 -3 weeks. Test Results: Test results from this visit will be discussed in further detail at your follow- up appointment, if applicable. Discharge Plan Admission Primary Reason for Your Visit: Turp Attending Provider: Sam Foster Primary Care Provider: Shoshana Ulrich Consulting Providers: Jesus Mendoza Discharge Orders/Prescriptions Prescriptions: New oxycodone 5 mg capsule 5 mg PO Q6H PRN (Reason: pain) 3 Days Qty: 10 0RF cephalexin 500 mg capsule 500 mg PO BID Qty: 10 0RF Continued amlodipine 5 mg tablet 5 mg PO DAILY tramadol 50 mg tablet 50 mg PO Q12H PRN (Reason: Pain) tamsulosin 0.4 mg capsule 0.4 mg PO QHS Label Comments: take 1 capsule by mouth at bedtime albuterol sulfate 90 mcg/actuation HFA aerosol inhaler 1 puff INHALATION Q4H PRN PRN (Reason: sob/wheezing) Label Comments: inhale 2 puffs by mouth every 4 hours if needed for wheezing finasteride 5 mg tablet 5 mg PO DAILY Label Comments: take 1 tablet by mouth once daily Trelegy Ellipta 100-62.5-25 mcg blister with device 1 inh INHALATION DAILY Label Comments: inhale 1 puff by mouth and INTO THE LUNGS once daily gabapentin 100 mg capsule 100 mg PO QHS Referrals / Follow Up: Shoshana Ulrich MD [Primary Care Provider] - Sam Fostre MD [Med Staff - Active Staff] - Disposition Disposition (needs filled in before D/C Order can be placed): Home, Self Care
--- NOTE | 2022-11-03 09:26 | PCM.HP.STD ---
HPI - General General Date of Service: 11/03/22 Chief Complaint: BPH with obstruction HPI Narrative DESMOND WINCHESTER, is a 87 M who presents for transurethral resection of the prostate and removal of foreign object UroLift clips. 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 100 mcg-umeclid 62.5 mcg-vilant 25 mcg inhalat.powder (Trelegy Ellipta) 1 inh inhalation DAILY 09/08/21 [History Last Taken Unknown] tamsulosin 0.4 mg capsule 0.4 mg PO QHS 09/08/21 [History Last Taken Unknown] amlodipine 5 mg tablet 5 mg PO DAILY 07/02/22 [History Last Taken Unknown] tramadol 50 mg tablet 50 mg PO Q12H PRN Pain 07/02/22 [History Last Taken Unknown] gabapentin 100 mg capsule 100 mg PO QHS 10/27/22 [History Last Taken Unknown] cephalexin 500 mg capsule 500 mg PO BID #10 caps 11/03/22 [Rx Last Taken Unknown] oxycodone 5 mg capsule 5 mg PO Q6H PRN pain 3 days #10 caps 11/03/22 [Rx Last Taken Unknown] Allergy/AdvReac Type Severity Reaction Status Date / Time ibuprofen [From Motrin] Allergy Swelling Verified 11/03/22 09:13 Surgical History History of cystoscopy History of esophagogastroduodenoscopy (EGD) History of hand surgery History of parotidectomy History of varicose vein stripping Hx of basal cell carcinoma excision Hx of decompressive lumbar laminectomy Hx of finger joint replacement Hx of myringotomy S/P insertion of spinal cord stimulator Social History (System 10/27/22 @ 09:25 by Zuleyka Butt) household members: spouse Smoking Status: Current every day smoker tobacco type: cigarettes alcohol intake: current alcohol intake frequency: 0-2 drinks per day Alcohol type: hard liquor Vital Signs Vital Signs Vital Signs: 11/03/22 09:18 11/03/22 09:18 Temperature 97.5 F L Temperature Source Temporal Pulse Rate 85 Respiratory Rate 18 Respiratory Pattern Normal Blood Pressure 141/83 H Blood Pressure Mean 102 Blood Pressure Source Monitor Blood Pressure Position Semi-Fowlers Blood Pressure Location Right Arm Pulse Ox 93 Oxygen Delivery Method Room Air Weight Weight: 68.946 kg Body Mass Index (BMI) 23.1 Results Lab / Micro Data Result Diagrams: 10/28/22 13:23 10/28/22 13:23
[2022-11-03] MEDS: Ipratropium/Albuterol Sulfate 3 ML AMPUL.NEB INHALATION ×2 (09:56→19:24)
[2022-11-03] MEDS: Cefazolin 2 GM in 0.9% Normal Saline 100 ML IV (10:28)
--- NOTE | 2022-11-03 11:17 | OP.PCM_ITS ---
Report of Operation Date of Procedure: 11/03/22 Pre-Operative Diagnosis: BPH with obstruction history of UroLift procedure Post-Operative Diagnosis: The same Surgery/Procedure Performed:: Transurethral resection of the prostate, and removal of foreign object UroLift Description of Surgical Findings:: In the preoperative setting I discussed with the patient how the surgery would be done with expect afterwards. We discussed how a prostate resection is done and we discussed the risk of the surgery including, bleeding, infection, retrograde ejaculation, changes with ejaculation or intercourse,. We discussed the possibility that the resection of the prostate may not alleviate his urinary symptoms. We discussed the small risk of developing scar tissue along the urethral channel and strictures. We also discussed the chance of the prostate could grow back and he may need further surgery or treatment in the future for prostate problems. Patient was taken back to the operating room, timeout procedure was performed, he was identified and marked and placed on the operating room table. He underwent general anesthesia. He was placed in dorsolithotomy position. Penis and testicles were prepped and draped in usual sterile fashion. Went into the bladder using the visual obturator with a resectoscope. Once inside the bladder identified the right and left ureteral orifice. I then identified the prostate and the anatomy of the prostate. I marked out the area of the sphincter and the verumontanum was identified. I then proceeded with the prostate resection first resected the median lobe. And then resected the right lobe of the prostate. Then to resect the left lobe of the prostate. I then resected the apical tissue of the prostate. This was a complete resection of all obstructive tissue to improve voiding and relieve obstruction. I then made sure that there was no injury to the sphincter or the verumontanum was still intact. At the end of the resection all the chips were Ellik out of the bladder. I then identified the left and right ureteral orifice and these were confirmed to be in good position and effluxing and not injured. At the end of the case then all the UroLift clips were removed from the prostate. This was done with the resectoscope using the loop. He had a nice wide open channel nice flow test and a Puentes catheter was placed in the bladder. The resectoscope was removed, a 22 Congolese catheter was placed into the bladder on continuous irrigation. And the urine was fairly light pink color and draining normally. He was taken back to the PACU in good condition. CPT 60212 Surgeon: Sam Foster Type of Anesthesia: General Drains: 22fr Admit VTE Documentation VTE Present on Admission: No VTE Mechan Device Prophylaxis: SCD's VTE Pharm Prophylaxis ordered?: No
[2022-11-03] MEDS: 0.9% Normal Saline 1,000 ML 125 ML IV (16:08)
[2022-11-03] MEDS: Cefazolin 1 GM/50 ML BAG IV (18:00)
[2022-11-03] MEDS: Budesonide Respules 0.5 MG/2 ML AMPUL.NEB. INHALATION (19:24)
[2022-11-03] MEDS: Gabapentin 100 MG Capsule PO (21:27)
[2022-11-03] MEDS: Docusate Sodium 100 MG Capsule 200 MG PO (21:27)
[2022-11-04] MEDS: traMADol 50 MG Tablet PO (00:08)
[2022-11-04] MEDS: 0.9% Normal Saline 1,000 ML 125 ML IV (00:09)
[2022-11-04 02:10] VITALS: BP 130/72; PULSE 60; RESP 18; TEMP 36.7; O2SAT 95
[2022-11-04] MEDS: HYDROcodone Bitartrate/Apap 5/325 Tablet PO (02:15)
[2022-11-04] MEDS: Cefazolin 1 GM/50 ML BAG IV (02:15)
[2022-11-04] MEDS: Acetaminophen 325 MG Tablet PO (06:14)
[2022-11-04 06:53] VITALS: PULSE 58; RESP 18; O2SAT 95
[2022-11-04] MEDS: Ipratropium/Albuterol Sulfate 3 ML AMPUL.NEB INHALATION (06:53)
[2022-11-04] MEDS: Budesonide Respules 0.5 MG/2 ML AMPUL.NEB. INHALATION (06:53)
[2022-11-04 08:42] VITALS: O2SAT 91
[2022-11-04 08:49] VITALS: BP 140/72; PULSE 82; RESP 20; TEMP 36.8; O2SAT 94
[2022-11-04] MEDS: amLODIPine 5 MG Tablet PO (08:52)
[2022-11-04] MEDS: Docusate Sodium 100 MG Capsule 200 MG PO (08:52)
--- NOTE | 2022-11-04 09:57 | CASEMGMT ---
RN CM: This RN CM met with pt face to face. Pt sitting up in chair, dressed for discharge, and alert. Pt denies any discharge needs at this time and confirms he has assistance at home if needed. DC Plan: Home with support of . No discharge needs identified at this time. Jama Serna RN CM
--- NOTE | 2022-11-04 11:34 | PHA.DC.MC ---
Pharmacy Service has performed discharge medication reconciliation and counseling for this patient. 1. CEPHALEXIN 500MG PO BID X 5 DAYS 2. OXYCODONE 5MG PO Q6H PRN PAIN The patient's discharge medication list was reviewed for discrepancies and discrepancies were resolved. Home Medications albuterol sulfate 90 mcg/actuation aerosol inhaler 1 puff inhalation Q4H PRN PRN sob/wheezing 09/08/21 finasteride 5 mg tablet 5 mg PO DAILY 09/08/21 fluticasone fur. 100 mcg-umeclid 62.5 mcg-vilant 25 mcg inhalat.powder (Trelegy Ellipta) 1 inh inhalation DAILY 09/08/21 tamsulosin 0.4 mg capsule 0.4 mg PO QHS 09/08/21 amlodipine 5 mg tablet 5 mg PO DAILY 07/02/22 tramadol 50 mg tablet 50 mg PO Q12H PRN Pain 07/02/22 gabapentin 100 mg capsule 100 mg PO QHS 10/27/22 cephalexin 500 mg capsule 500 mg PO BID #10 caps 11/03/22 oxycodone 5 mg capsule 5 mg PO Q6H PRN pain 3 days #10 caps 11/03/22 The patient was counseled on the following discharge medications and changes in medications for homegoing were reviewed. The Reason for Use, instructions for use, and potential side effects were reviewed for all new medications. The patient's questions regarding all of their medications were answered. The patient was able to verbally demonstrate an understanding of their discharge medications. Patient counseled by student services advisorPonce.
[2022-11-04 13:31] VITALS: BP 139/75; PULSE 65; RESP 18; TEMP 36.5; O2SAT 94
== END 2022-11-04 13:31 | disposition home or self-care (01) ==
LOC: SDC 13:03 → MS3 13:03
PROVIDERS: Anesthesiology; Admitting Provider Urology; PCP Family Medicine; Referring Provider Urology; Visit Provider Urology
PROC: (CPT 52601; principal; 2022-11-03 10:45)
DX: N40.1 Benign prostatic hyperplasia with lower urinary tract symptoms (principal); J43.9 Emphysema, unspecified; F17.210 Nicotine dependence, cigarettes, uncomplicated; I10 Essential (primary) hypertension; N13.8 Other obstructive and reflux uropathy; R06.02 Shortness of breath; Z87.898 Personal history of other specified conditions; G25.81 Restless legs syndrome; M25.519 Pain in unspecified shoulder
CPT/HCPCS: 52601; 00914; 36415; 80048; 80076; 85027; 85610; 85730; 88300; 94640; 94668; 94762; 96361; 96365; 96366; 99221; 99252; J7030; J7120; G0378; G0463; J2405

== ENCOUNTER → 2022-12-10 | Outpatient (CLI) | payer MEDICARE, SELFPAY | END | disposition home or self-care (01) | LOC: LAB 15:10 | PROVIDERS: PCP Family Medicine; Referring Provider Urology; Visit Provider Urology | DX: N40.1 Benign prostatic hyperplasia with lower urinary tract symptoms (principal) | CPT/HCPCS: 87086 ==

== ENCOUNTER → 2023-04-06 | Outpatient (CLI) | payer MEDICARE, SELFPAY ==
--- NOTE | 2023-04-06 11:29 | RAD_ITS ---
STUDY: X-RAY - THORACIC SPINE REASON FOR EXAM: Male, 87 years old. EVAL SCS LEADS TECHNIQUE: 3 view(s) of the thoracic spine were obtained. COMPARISON: None. FINDINGS: Normal kyphosis of the thoracic spine. There is prominent dextroconvex scoliosis of the lower thoracic spine. There is demineralization of the thoracic spine with endplate spondylosis. There is multilevel disc space narrowing of the thoracic spine. Epidural stimulator leads are seen behind T8-T10. No discontinuities are seen of the leads. The soft tissue structures are unremarkable. RAD/Thoracic Spine 3 Views IMPRESSION: Epidural stimulator leads as above. No gross acute abnormalities. Degenerative changes. Electronically Signed: Ayo Mcwilliams MD at 23:00 EST ,
[2023-04-06 12:55] LABS: Absolute Lymphocyte Count 0.67 X10^3/uL (0.83-4.51); Absolute Neutrophil Count 3.1 X10^3/uL (2.0-7.7); Basophil# 0.02 X10^3/uL; Basophil% 0.5 % (0-1); Eosinophil# 0.02 X10^3/uL; Eosinophils% 0.5 % (0-5); Hemoglobin 12.5 g/dL (13.0-16.5); Lymphocyte # 0.67 X10^3/ul (0.83-4.51); Lymphocyte % 15.7 % (19-41); Mean Corp Hgb Conc 32.9 g/dL (32-36); Mean Corpuscular Volume 103.3 fL (80-94); Mean Platelet Vol. 11.4 fl (6.2-12.0); Monocyte# 0.39 X10^3/uL; Monocyte% 9.1 % (0-10); NRBC Flagged by Analyzer 0 % (0-5); Neutrophil # 3.13 X10^3/uL (2.7-7.7); Platelet Count 171 K/mm3 (150-450); RBC Distribution Width CV 16.1 % (11.6-14.6); RBC Distribution Width SD 61.8 fl (35.1-43.9); Red Blood Count 3.68 M/mm3 (4.6-6.2); White Blood Count 4.3 K/mm3 (4.4-11.0)
[2023-04-06 12:57] LABS: Anion Gap 6 (5-15); BUN 36 mg/dL (7-18); BUN/Creat Ratio 26.5 RATIO (10-20); Calcium,Total 8.7 mg/dL (8.5-10.1); Chloride 102 mmol/L (98-107); Creatinine, Serum 1.36 mg/dL (0.70-1.30); EST Glomerular Filtration Rate 53 mL/min (>60); Est Glom Filt Rate - Afr Amer 64 mL/min (>60); Glucose 104 mg/dL (74-106); Potassium 4.1 mmol/L (3.5-5.1); Sodium Level 137 mmol/L (136-145)
== END | disposition home or self-care (01) ==
LOC: BFHLAB 11:11 → RAD 11:15
PROVIDERS: PCP Family Medicine; Referring Provider Anesthesiology Pain Medicine; Visit Provider Anesthesiology Pain Medicine
DX: I10 Essential (primary) hypertension (principal); M51.34 Other intervertebral disc degeneration, thoracic region
CPT/HCPCS: 36415; 72072; 80048; 85025

== ENCOUNTER → 2023-06-13 | Outpatient (CLI) | payer MEDICARE, SELFPAY ==
--- NOTE | 2023-06-13 13:14 | MRI_ITS ---
STUDY: MRI LEFT FOOT REASON FOR EXAM: Male, 88 years old. Soft tissue masses - mid to distal metatarsals - plantar. TECHNIQUE: Standardized fat and water weighted pulse sequences were obtained in all 3 orthogonal planes. COMPARISON: Left foot radiographs dated 08/16/2015. 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 Normal bone marrow of the metatarsals, phalanges and visualized distal tarsal row, without fracture, periostitis, erosions or reactive bone edema. Normal sesamoids without sesamoiditis, fracture or avascular necrosis. There are no discrete joint effusions. There are no extraarticular fluid collections. Normal visualized Chopart and Lisfranc joints and normal Lisfranc ligament. Normal intermetatarsal spaces without intermetatarsal (Esqueda) neuroma or bursitis. Normal visualized distal anterior tibialis tendon. Normal visualized distal peroneus longus and brevis tendons. Normal visualized extensor digitorum longus, extensor hallucis longus, flexor digitorum brevis and flexor hallucis longus tendons. Normal visualized plantar fascia without fasciitis, fibromatosis or tear. Normal intrinsic muscles of the foot, without soft tissue masses or evidence of denervation atrophy. There is mild to moderate subcutaneous soft tissue edema along the dorsum of the forefoot. 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 Mild to moderate subcutaneous soft tissue edema along the dorsum of the forefoot. Electronically Signed: Salvador Fernandez MD at 15:34 EST ,
--- OUTSIDE RECORDS SUMMARY | 2023-06-13 13:29 | XMS RPT_ITS | CCD ---
Author Name Unknown Address [address] [place] [address] Organization [facility] Care Team Providers Care Cabinet Maker Name Role Phone Geetha Hatch LPN Unavailable Unavailab Geetha Matt LPN Unavailable Unavailab Melia Rios Unavailable Unavailable Sheila Malloy Unavailable Unavailable Mark Anaya Unavailable Sheila Malloy Unavailable Unavailable Melia Martinez LPN Unavailable Unavaila ble Allergies Allergy Classification Reported Allergen(s) Allergy Type Date of Onset Reaction(s) Facility (13 sources) ibuprofen drug allergy 11-02-2016 Swelling of legs, Swelling [facility] Work Phone: Medications Completed/Discontinued Medications Medication Drug Class(es) Dates Sig (Normalized) Sig (Original) 120 actuat budesonide 0.16 mg/actuat / formoterol fumarate 0.0045 mg/actuat metered dose inhaler (7 sources) Corticosteroid, beta2-Adrenergic Agonist Start: 09-16-2016 SYMBICORT 160-4.5 MCG/ACT AERO Two inh twice daily BUDESONIDE-FORMOTER OL FUMARATE [id number] Melia Grimes Problems Active Problems Problem Classification Problem Date Documented Da te Episodic/Chronic Chronic obstructive pulmonary disease and bronchiectasis (6 sources) Chronic obstructive lung disease; Translations: [Chronic obstructive pulmonary disease, unspecified] Onset: 11-15-2016 11-15-2016 Chronic Screening or history of mental health and substance abuse (6 sources) Tobacco dependence syndrome; Translations: [Nicotine dependence, unspecified, uncomplicated] Onset: 11-15-2016 11-15-2016 Chronic Unclassified (1 source) No current problems or disability 11-12-2016 Past or Other Problems Problem Classification Problem Date Documented Da te Episodic/Chronic Other lower respiratory disease (10 sources) Lung mass; Translations: [Other nonspecific abnormal finding of lung field] Onset: 11-15-2016 11-15-2016 Episodic Results Test Name Value Interpretation Reference Range Facil ity Vital Signs Date Time Vital Sign Value Performing Clinician Nick doan 02-24-2017 06:22-0400 BMI (Body Mass Index) 26.15 kg/m2 Sheila Malloy [facility] Work Phone: 02-24-2017 06:22-0400 Body Temperature 98 [degF] Sheila Malloy [facility] Work Phone: 02-24-2017 06:22-0400 BP Diastolic 80 mm[Hg] Sheila Malloy [facility] Work Phone: 02-24-2017 06:22-0400 BP Systolic 163 mm[Hg] Sheila Malloy [facility] Work Phone: 02-24-2017 06:22-0400 Height 172.72 cm Sheila Malloy [facility] Work Phone: 02-24-2017 06:22-0400 Pulse (Heart Rate) 73 /min Sheila Malloy [facility] Phone: 02-24-2017 06:22-0400 Respiratory Rate 18 /min Sheila Malloy [facility] Work Phone: 02-24-2017 06:22-0400 Weight 78.02 kg Sheila Malloy [facility] Work Phone: 11-15-2016 10:01-0400 BMI (Body Mass Index) 25.69 kg/m2 Geetha Hatch LPN [facility] Phone: 11-15-2016 10:01-0400 Body Temperature 97.3 [degF] Geetha Hatch LPN [facility] Phone: 11-15-2016 10:01-0400 BP Diastolic 71 mm[Hg] Geetha Yensho AGENT TELEGRAPHER [facility] Work Phone: 11-15-2016 10:01-0400 BP Systolic 106 mm[Hg] Geetha Yensho AGENT TELEGRAPHER [facility] Work Phone: 11-15-2016 10:01-0400 Height 172.72 cm Geetha Yensho AGENT TELEGRAPHER [facility] Work Phone: 11-15-2016 10:01-0400 Pulse (Heart Rate) 98 /min Geetha Yensho AGENT TELEGRAPHER [facility] Work Phone: 11-15-2016 10:01-0400 Respiratory Rate 18 /min Geetha Yensho AGENT TELEGRAPHER [facility] Work Phone: 11-15-2016 10:01-0400 Weight 76.66 kg Geetha Yensho AGENT TELEGRAPHER [facility] Work Phone: Plan of Treatment Date Care Activity Detail Author Start: 02-24-2017 End: 02-24-2017 Appointment Appointment [facility] Work Phone: Start: 02-08-2017 End: 11-26-2016 Ct thorax w/contrast material CT Chest with Contrast [facility] Phone: Start: 01-14-2017 End: 01-14-2017 Appointment Appointment [facility] Work Phone: Start: 11-15-2016 End: 11-15-2016 Follow Up Appt 2 months Follow Up Appt 2 months [facility] Phone: Start: 11-15-2016 End: 11-18-[address] attenuation skull base mid-thigh 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 [facility] Work Phone: Start: 11-15-2016 End: 11-15-2016 Pulmonary Function Test - complete Pulmonary Function Test - complete [facility] Phone: Start: 11-15-2016 End: 11-15-2016 Pulmonary stress test/simple Pulmonary stress testing; simple (eg, 6-minute walk) [facility] Phone: Start: 11-15-2016 End: 11-15-2016 Appointment Appointment [facility] Phone: Start: 11-15-2016 End: 11-15-2016 Follow Up Appt 2 months Follow Up Appt 2 months [facility] Phone: Start: 11-15-2016 End: 11-18-2016 Pet image w/ct, 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 [facility] Phone: Start: 11-15-2016 End: 11-15-2016 Pulmonary Function Test - complete Pulmonary Function Test - complete [facility] Phone: Start: 11-15-2016 End: 11-15-2016 Pulmonary stress test/simple Pulmonary stress testing; simple (eg, 6-minute walk) [facility] Phone: Clinical Note 09-11-2021 Note Date & Type Note Facility 09-11-2021 Note ORIGINAL PROCEDURE: 09/11/2021 11:12 am 1. Ultrasound guided core biopsy, right parotid lesion REGULATORY SCIENTIST: Dr. Gomez CHILDREN'S SERVICE WORKER: None MATERIALS: 18 G core biopsy device ANESTHESIA: Local ACCESS SITE: Right face CORES (#): 6 TOUCHPREP: No The procedure, risks, limitations, and alternatives were discussed. All questions answered. Written informed consent obtained. Procedure was performed using a cap, sterile gloves, a sterile sheet or towels, hand hygiene and hospital approved cutaneous antisepsis. Time out performed. Ultrasound images demonstrate 1.5 x 0.8 cm lesion correlating to prior CT lesion. Skin access site was marked then prepped and draped sterilely. After administering local anesthesia, the coaxial guide needle was advanced to the lesion under US guidance. Core samples were obtained from the lesion and submitted to pathology and/or microbiology. [place] were removed. Sterile dressing placed. Post procedure images demonstrate no evidence of hemorrhage in the area of biopsy. COMPLICATIONS: None EBL: Minimal CONDITION: Stable, unchanged. COMPARISON: 07/22/21 CT neck HISTORY: ORDERING SYSTEM PROVIDED HISTORY: Reason for Exam: RT PAROTID LESION IMPRESSION: 1. Successful US guided core biopsy. Interpreted by: Ailyn Gomez MD Preliminary Report By: Ailyn Gomez MD Electronically signed By Ailyn Gomez MD Dictated Date: 09/11/2021 12:58:40 PM Prelim Date: 09/11/2021 1:00:04 PM Sign Date: 09/11/2021 1:00:04 PM Ordering Provider: [facility] ([place]) Summary Purpose Family History No Family History Records Found Advance Directives No Advanced Directives Records Found Additional Source Comments (unrecognized sect ion and content) No Status Records Found INFORMATION SOURCE (unrecogn ized section and content) FOR RECORDS PERTAINING TO PATIENTS WHO ARE OR HAVE BEEN ENROLLED IN A CHEMICAL DEPENDENCY/SUBSTANCEABUSE PROGRAM, SOME INFORMATION MAY BE OMITTED. This clinical summary was aggregated from multiple sources. Caution should be exercised in using it in the provision of clinical care. This summary normalizes information from multiple sources, and as a consequence, information in this document may materially change the coding, format and clinical context of patient data. In addition, data may be omitted in some cases. CLINICAL DECISIONS SHOULD BE BASED ON THE PRIMARY CLINICAL RECORDS. [employer] [facility]. provides no warranty or guarantee of the accuracy or completeness of information in this document.
== END | disposition home or self-care (01) ==
PROVIDERS: PCP Family Medicine; Referring Provider Podiatrist; Visit Provider Podiatrist
DX: M72.2 Plantar fascial fibromatosis (principal)
CPT/HCPCS: 73718

== ENCOUNTER 2023-07-21 08:17 | Emergency (ER) | payer MEDICARE, SELFPAY ==
[2023-07-21 08:18] VITALS: BP 122/80; PULSE 83; RESP 16; TEMP 36.8; O2SAT 94; BMI 23.8
[2023-07-21 10:48] VITALS: BP 120/78; PULSE 80; RESP 18; O2SAT 96
--- NOTE | 2023-07-21 10:55 | CT_ITS ---
INDICATION: Injury/Pain EXAMINATION: CT CERVICAL SPINE - CT Spine Cervical W/O Contrast Injection TECHNIQUE: Helically acquired images were obtained of the cervical spine. 2D reformatted images were reviewed. A radiation dose optimization technique was used for this scan. IV Contrast dosage and agent: None. RADIATION DOSAGE (If Supplied By Facility): CTDIvol = ( 17.91 ) mGy, DLP = ( 343.34 ) mGycm COMPARISON: No relevant prior comparison study available FINDINGS: VERTEBRAE: No fracture or traumatic subluxation. No discrete lytic or blastic abnormality. Straightening of the cervical spine. 3 mm anterolisthesis of C4 over C5 and minimally of C7 over T1. Normal craniocervical junction and cervicothoracic junction. DISCS and SPINAL CANAL: Severe disc space narrowing of C4-C5, C5-C6 and C6-C7. Degenerative changes in the apophyseal joints at multiple levels. Posterior lateral degenerative spurs. Severe narrowing of the left neural foramina at the level of C4-C5. Moderate narrowing of the neural foramina bilaterally at the level of C5-C6 worse on the right side. Otherwise no critical bony stenosis is seen. NECK SOFT TISSUES: No prevertebral soft tissue swelling. Atherosclerotic calcifications of the carotid arteries bilaterally. LUNG APICES: Clear. CT/Spine Cervical without Contras IMPRESSION: 1. No evidence of acute fracture. 2. Multilevel degenerative changes as described above. 3. If symptoms persist, MRI of the cervical spine is recommended. Electronically Signed: Bruce Alexander MD at 12:32 [facility] ,
--- NOTE | 2023-07-21 10:55 | EDS_ITS ---
HPI History of Present Illness Chief Complaint: Back Informant: patient Onset/Context/Timing Onset: Weeks (1) Context: Gradual Onset Timing: Continuous Quality: Aching Location: Thoracic Worsened by: improves with Nothing Relieved by: Medications Associated Symptoms Associated Symptoms: Numbness; Negative for Tingling, Radiation to Right Leg, Radiation to Left Leg, Fever, Abdominal Pain, Dysuria, Unable to Ambulate, Unable to Transfer, Urinary Retention, Urinary Incontinence, Constipation or Fecal Incontinence Narrative Narrative: Patient presents with pain in his right shoulder, back, neck, left shoulder, and left arm that has been constant for the past week. Patient states the pain started in his right shoulder radiate across his back to his left shoulder and then down his left arm. Patient states that his left arm pain and left shoulder pain have currently resolved. Patient describes the pain as aching. Patient states pain is mainly over the right scapular area. Patient states nothing makes it worse. Patient admits to some numbness in his hands bilaterally. Patient denies any radiation of the pain down his back or into his legs. Patient denies any trauma or injury. Patient admits to recent cough. Patient states his hands feel weak. Patient states he took one of his 's oxycodone which did help. 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 100 mcg-umeclid 62.5 mcg-vilant 25 mcg inhalat.powder (Trelegy Ellipta) 1 inh inhalation DAILY 09/08/21 [History Last Taken Unknown] tamsulosin 0.4 mg capsule 0.4 mg PO QHS 09/08/21 [History Last Taken Unknown] amlodipine 5 mg tablet 5 mg PO DAILY 07/02/22 [History Last Taken Unknown] tramadol 50 mg tablet 50 mg PO Q12H PRN Pain 07/02/22 [History Last Taken Unknown] gabapentin 100 mg capsule 100 mg PO QHS 10/27/22 [History Last Taken Unknown] cephalexin 500 mg capsule 500 mg PO BID #10 caps 11/03/22 [Rx Last Taken Unknown] oxycodone 5 mg capsule 5 mg PO Q6H PRN pain 3 days #10 caps 11/03/22 [Rx Last Taken Unknown] oxycodone-acetaminophen 5 mg-325 mg tablet 1 tab PO Q6H PRN PRN Pain 3 days #12 TABLETS 07/21/23 [Rx Last Taken Unknown] Allergy/AdvReac Type Severity Reaction Status Date / Time ibuprofen [From Motrin] Allergy Swelling Verified 07/21/23 08:18 Surgical History History of cystoscopy History of esophagogastroduodenoscopy (EGD) History of hand surgery History of parotidectomy History of varicose vein stripping Hx of basal cell carcinoma excision Hx of decompressive lumbar laminectomy Hx of finger joint replacement Hx of myringotomy S/P insertion of spinal cord stimulator Social History household members: spouse Smoking Status: Current every day smoker tobacco type: cigarettes alcohol intake: current alcohol intake frequency: 0-2 drinks per day Alcohol type: hard liquor ROS ROS ED Constitutional Constitutional ED: Denies chills or fever(s) Eyes Eyes: Denies blurry vision or change in vision ENT ENT ED: Denies rhinorrhea or sore throat Cardiovascular Cardiovascular: Denies chest pain or palpitations Respiratory/Chest Respiratory/Chest: Reports cough; Denies dyspnea Gastrointestinal Gastrointestinal: Denies nausea or vomiting Genitourinary Genitourinary ED: Denies dysuria or hematuria Musculoskeletal Musculoskeletal: Reports back pain and neck pain Integumentary Denies abscess or rash Neurologic Neurologic: Reports weakness; Denies headache(s) Allergic/Immunologic Allergic/Immunologic ED: Denies mouth swelling or urticaria EXAM Physical Exam Const Vital Signs: 07/21/23 08:18 07/21/23 10:48 07/21/23 12:36 Temperature 98.3 F Temperature Source Temporal Pulse Rate 83 80 75 Respiratory Rate 16 18 18 Blood Pressure 122/80 H 120/78 127/72 H Blood Pressure Mean 94 92 90 Pulse Ox 94 96 98 Oxygen Delivery Method Room Air Room Air Room Air Positive well nourished and well developed General Appearance ED: well developed and NAD HEENT Reports moist mucous membranes Neck supple and no JVD Resp normal respiratory effort and clear to auscultation bilaterally Cardio regular rate and regular rhythm GI soft to palpation, non-tender and non-distended Back/Spine Back/Spine Narrative: There is tenderness over the cervical and upper thoracic paraspinal muscles. There is also mild tenderness and spasm of the right parascapular muscles. There is no bony crepitance or step-off noted. Range of motion was limited in all motions of the cervical and thoracic spine secondary to pain. Strength is 5/5 bilateral in the upper and lower extremities. There are no sensory deficits noted. Radial pulses are equal bilaterally. Cervical Spine: paracervical muscle tenderness Thoracic Spine / Upper Back: paraspinal muscle tenderness Extremity normal to inspection Neuro oriented x3 and no sensory deficits noted Sensorium / Orientation: alert Motor Exam: strength 5/5 throughout Psych mental status grossly normal MDM MDM MDM Narrative Medical decision making narrative: Differential diagnosis includes musculoskeletal pain, muscle strain, thoracic compression fracture, cervical compression fracture, cardiac dysrhythmia, cardiac ischemia. EKG will be obtained to assess for cardiac dysrhythmia and cardiac ischemia. CT scan of the cervical spine will be obtained to assess for occult cervical spine fracture and spondylolisthesis. Chest x-ray will be obtained to assess for pneumonia, pneumothorax, and thoracic compression fracture. Radiography Diagnostic Testing: Clinical Impression(s) from Imaging Studies Cervical Spine CT 07/21/23 10:55 IMPRESSION: 1. No evidence of acute fracture. 2. Multilevel degenerative changes as described above. 3. If symptoms persist, MRI of the cervical spine is recommended. Electronically Signed: Bruce Alexander MD at 12:32 EST , Chest X-Ray 07/21/23 11:40 IMPRESSION: Atelectatic changes in the lower lungs. Pain management stimulator wires overlying the thoracic spine. Electronically Signed: Bruce Alexander MD at 12:47 EST , CT scan of the cervical spine was obtained. There is no evidence of acute fracture or spondylolisthesis. There are multilevel degenerative changes noted. This was interpreted by the radiologist and was also independently reviewed by myself. PA and lateral chest x-ray was obtained. There are 2 views. On my independent interpretation, lung michelle show atelectasis in the lower lobes bilaterally. There is normal cardiac silhouette. Bony thorax is normal. There are no compression fractures of the thoracic spine. There are pain management stimulator wires in the thoracic spine. There is no acute process noted. Radiologist also interpreted the x-ray and agrees. EKG Initial EKG: Attestation: I personally reviewed and interpreted this EKG as follows: Interpretation: Sinus Rhythm (72) and No Acute Injury Pattern Comments: EKG was obtained. On my independent interpretation, it showed a sinus rhythm with first-degree AV block with a rate of 72. [place] interval was prolonged at 224 ms. QRS interval was normal at 100 ms. QTc interval was normal at 429 ms.. There is left axis deviation at -69. There are no acute ST or T wave changes. Prior EKG tracings: available for review Prior: Unchanged (10/22/2022) Treatment and Re-Evaluation Narrative: Patient was given a dose of morphine here. Patient was advised of his findings. Patient was feeling better on reevaluation. Patient was given a prescription for a short course of oxycodone. Patient was instructed to follow-up with his primary care physician in 5 to 7 days. Patient understood and was agreeable with the plan. All questions were answered. Discharge Plan Triage Chief Complaint: Back Other Complaint: Upper Extremity Injury ED Provider: Santana Sandoval Dx/Rx/DC Orders Clinical Impression: Acute cervical myofascial strain, Acute thoracic myofascial strain, Tobacco abuse Instructions: ED Back Sprain/Strain, ED Neck Sprain or Strain Prescriptions: New oxycodone-acetaminophen [oxycodone-acetaminophen] 5-325 mg tablet 1 tab PO Q6H PRN PRN (Reason: Pain) 3 Days Qty: 12 0RF No Action amlodipine 5 mg tablet 5 mg PO DAILY tramadol 50 mg tablet 50 mg PO Q12H PRN (Reason: Pain) tamsulosin 0.4 mg capsule 0.4 mg PO QHS Patient Comments: take 1 capsule by mouth at bedtime albuterol sulfate 90 mcg/actuation HFA aerosol inhaler 1 puff INHALATION Q4H PRN PRN (Reason: sob/wheezing) Patient Comments: inhale 2 puffs by mouth every 4 hours if needed for wheezing finasteride 5 mg tablet 5 mg PO DAILY Patient Comments: take 1 tablet by mouth once daily Trelegy Ellipta 100-62.5-25 mcg blister with device 1 inh INHALATION DAILY Patient Comments: inhale 1 puff by mouth and INTO THE LUNGS once daily gabapentin 100 mg capsule 100 mg PO QHS oxycodone 5 mg capsule 5 mg PO Q6H PRN (Reason: pain) 3 Days Qty: 10 0RF cephalexin 500 mg capsule 500 mg PO BID Qty: 10 0RF Primary Care Provider: Shoshana Ulrich Referrals: Shoshana Ulrich MD [Primary Care Provider] - 3-5 Days Disposition Disposition: Home, Self Care
--- NOTE | 2023-07-21 10:59 | EKG12_ITS ---
Test Reason : Blood Pressure : / mmHG Vent. Rate : 072 BPM Atrial Rate : 072 BPM P-R Int : 224 ms QRS Dur : 100 ms QT Int : 392 ms P-R-T Axes : 061 -69 015 degrees QTc Int : 429 ms Sinus rhythm with sinus arrhythmia with 1st degree A-V block LAFB Abnormal ECG Confirmed by Jam Tobin ([id number]), editor & co founder MARGAUX THURMAN ([id number]) on 07/25/2023 1:58:28 PM Referred By: Confirmed By:Jam Tobin
[2023-07-21] MEDS: Morphine 4 MG/ML Syringe IM (11:24)
--- NOTE | 2023-07-21 11:40 | RAD_ITS ---
INDICATION: Thoracic pain EXAMINATION/TECHNIQUE: X-RAY - XR Chest 2 Views COMPARISON: No relevant prior comparison study available FINDINGS: LINES/DEVICES: None. LUNGS: Atelectatic changes in the lower lungs worse on the left side. No evidence of pleural effusions. MEDIASTINUM AND CARDIOVASCULAR STRUCTURES: Cardiac silhouette not enlarged. Central airways and mediastinal contour are unremarkable. BONES AND SOFT TISSUES: Dextroscoliosis of the thoracic spine. Pain management stimulator wires overlying the thoracic spine. RAD/Chest PA and Lateral IMPRESSION: Atelectatic changes in the lower lungs. Pain management stimulator wires overlying the thoracic spine. Electronically Signed: Bruce Alexander MD at 12:47 EST ,
[2023-07-21 12:36] VITALS: BP 127/72; PULSE 75; RESP 18; O2SAT 98
== END 2023-07-21 13:33 | disposition home or self-care (01) ==
PROVIDERS: Emergency Provider Emergency Medicine; PCP Family Medicine; Visit Provider Emergency Medicine
DX: S29.012A Strain of muscle and tendon of back wall of thorax, initial encounter (principal); J43.9 Emphysema, unspecified; S16.1XXA Strain of muscle, fascia and tendon at neck level, initial encounter; X58.XXXA Exposure to other specified factors, initial encounter; M62.830 Muscle spasm of back; M25.511 Pain in right shoulder; M25.512 Pain in left shoulder; M79.602 Pain in left arm; I10 Essential (primary) hypertension; F17.210 Nicotine dependence, cigarettes, uncomplicated; Z79.899 Other long term (current) drug therapy
CPT/HCPCS: 71046; 72125; 93005; 96372; 99283

== ENCOUNTER → 2023-08-11 | Outpatient (CLI) | payer MEDICARE, SELFPAY ==
--- NOTE | 2023-08-11 11:45 | EKG12_ITS ---
Test Reason : PRE-OP Blood Pressure : / mmHG Vent. Rate : 078 BPM Atrial Rate : 078 BPM P-R Int : 266 ms QRS Dur : 106 ms QT Int : 396 ms P-R-T Axes : 079 -77 065 degrees QTc Int : 451 ms Sinus rhythm with sinus arrhythmia with 1st degree A-V block Left anterior fascicular block Abnormal ECG Confirmed by MAGO TAPIA, NINFA ([id number]), metropolitan editor GIAN LIGHT ([id number]) on 08/12/2023 5:55:59 AM Referred By: Ricardo Smiley Confirmed By:NINFA MERCEDES MD
[2023-08-11 12:26] LABS: Hematocrit 35.9 % (40-54); Hemoglobin 11.4 g/dL (13.0-16.5); Mean Corp Hgb Conc 31.8 g/dL (32-36); Mean Corpuscular Hgb 32.6 pg (27.0-32.0); Mean Corpuscular Volume 102.6 fL (80-94); Platelet Count 230 K/mm3 (150-450); RBC Distribution Width CV 14.5 % (11.6-14.6); RBC Distribution Width SD 54.7 fl (35.1-43.9); White Blood Count 5.8 K/mm3 (4.4-11.0)
[2023-08-11 13:02] LABS: Anion Gap 3 (5-15); BUN 26 mg/dL (7-18); BUN/Creat Ratio 22.6 RATIO (10-20); Calcium,Total 8.7 mg/dL (8.5-10.1); Chloride 108 mmol/L (98-107); Creatinine, Serum 1.15 mg/dL (0.70-1.30); EST Glomerular Filtration Rate 64 mL/min (>60); Est Glom Filt Rate - Afr Amer 78 mL/min (>60); Glucose 101 mg/dL (74-106); Potassium 4.2 mmol/L (3.5-5.1); Sodium Level 140 mmol/L (136-145)
== END | disposition home or self-care (01) ==
LOC: PSN 11:39
PROVIDERS: PCP Family Medicine; Referring Provider Otolaryngology; Visit Provider Otolaryngology
DX: Z01.810 Encounter for preprocedural cardiovascular examination (principal)
CPT/HCPCS: 36415; 80048; 85027; 93005

== ENCOUNTER 2023-09-05 11:30 | Outpatient (RCR) | payer MEDICARE, SELFPAY ==
--- NOTE | 2023-08-09 12:53 | HP.PTEVAL_ITS ---
Patient's Visit Information Visit Information Visit Information: DESMOND WINCHESTER is a 88 year old M referred to Physical Therapy by Dr. Shoshana Ulrich MD with a diagnosis of STRAIN OF MUSCLE ,FASCIA NECK ,STARIN OF MUSCLE NECK WALL OF THORACIC. Date of Evaluation: 08/09/23 Physical Therapist: Pola Bustamante PT, Cert MDT, OCS Visit Plan Frequency: 2x /Week Duration: 4 Weeks Plan: PT INTERVENTIONS MANUAL THERAPY ( CERVICAL TRACTION) STM,POSTURAL EX'S , CERVICAL ROM ,AND MODLATIES Subjective Subjective: This 88 y/o male presents to physical therapy with neck pain. Patient developed neck and arm pain . Patient seen DR her PT . Prior to seeing PT patient to ER via ambulance had CT SCAN severe stenosis DDD/ Medication oxycodone.Pain located base of neck and bilateral upper traps. Described as ache. Aggravating factors turning neck ,looking up affects ADL's and driving. Alleviating factors medication. Patient has NEVILLE occiput. Denies p aresthesia/tingling. Denies dizziness/tinnitus. Patient pain affect sleeping. Patient is caregiver of spouse and does all housework.Patient symptoms affects QOL and function. Patient has h/o of fall 2 years ago.No treatment or interventions. Patient had h/o neck back. SOCIAL: VOCATION: retired Pain Bilateral Neck: Pain Intensity (Out of 10): 8 Pain Intensity Range: 10 Bilateral Shoulder: Pain Intensity (Out of 10): 8 Pain Intensity Range: 10 Objective Objective: POSTURE: mod thoracic kyphosis ,head forward flexed ,hips/knees flexed NEURO: denies paresthesia/tingling ,reflexes C5-6-7 1/3 PALPATION: tender UT/levator ,paraspinals ,occiput GAIT: ambulates with cane AROM: WFL shoulders MMT: BUE grossly 4/5 ,shoulders 4-/5 CERVICAL ROM: flexion min loss ,extension mod /severe loss pain ,lateral flexion/rotation mod loss right ,mod /severe loss left Special Tests C/S Radiculapathy - Left Upper limb tension test: Negative C/S Radiculapathy - Right Upper limb tension test: Negative C/S Radiculapathy - Left Spurlings: Positive C/S Radiculapathy - Right Spurlings: Positive C/S Radiculapathy - Left Cervical distraction: Negative C/S Radiculapathy - Right Cervical distraction: Negative C/S Radiculapathy - Left Relief test: Negative C/S Radiculapathy - Right Relief test: Negative C/S Radiculapathy - Valsalva: Negative Sharp Andrey: Negative Vertebral Artery Test: Negative Alar Ligament Test: Negative Balance/Special Test Scores Oswestry Neck Score: 26 Goals Goal 1:: Patient to be I with HEP for neck Goal Time Frame: 4-6 Weeks Goal 2:: Patient to demonstrate 40-50% improvement with less pain and improved function Goal Time Frame: 4-6 Weeks Goal 3:: Patient to improve cervical ROM for function of recovery to drive car and ADLS Goal Time Frame: 4-6 Weeks Goal 4:: Patient to improve neck oswestry score by 5 points to improve QOL and function Goal Time Frame: 4-6 Weeks Rehabilitation Potential Physical Therapy Diagnosis: Patient has cervical pain with mod /severe foraminal stenosis with pain with rotation ./extension and lateral flexion worse on left ,traction relieved symptoms pain worsen with positioning and affects ADLs and housework tasks Rehabilitation Potential: Good Anticipated Interventions Patient/Client Instruction: Educate patient on: Condition and Plan of Care For the Purpose of:: To decrease pain, To increase ROM, To improve muscle performance and motor function, To improve ability to perform ADL's, To increase tolerance to activity/condition/position, To improve ability of physical actions for home/community/work/leisure, To improve health of tissue, To decrease soft t issue restriction, To increase flexibility/ROM, To reduce risk of recurrence and To improve tolerance to ADL's Therapeutic Exercise to Include: Strength training, Postural training, Flexibilty training and Active ROM For the Purpose of:: To decrease pain, To increase ROM, To improve muscle performance and motor function, To improve ability to perform ADL's, To increase tolerance to activity/condition/position, To improve ability of physical actions for home/community/work/leisure, To improve health of tissue, To decrease soft tissue restriction, To increase flexibility/ROM and To improve tolerance to ADL's Manual Therapy Techniques to Include: Mobilization and Passive ROM For the Purpose of:: To decrease pain, To increase ROM, To improve muscle performance and motor function, To improve ability to perform ADL's, To increase tolerance to activity/condition/position, To improve ability of physical actions for home/community/work/leisure, To improve health of tissue, To decrease soft tissue restriction and To improve tolerance to ADL's TENS: Yes IF ES: Yes Cryotherapy (ice pack, ice massage): Yes Thermo therapy (hot pack): Yes Ultrasound (thermal/non thermal): Yes For the Purpose of:: To decrease pain, To increase ROM, To improve health of tissue, To decrease soft tissue restriction and To increase flexibility/ROM Text: Thank you for the opportunity to evaluate your patient. For Medicare and Medicare HMO plans, please review the plan of care and approve it. It will need to be FAXED BACK to us at [phone] for Medicare purposes. For Medicare only, by signing this I certify the plan of care. Please let me know if there are questions or concerns regarding this plan of care. Physician Signature: Date:
--- NOTE | 2023-09-05 11:51 | HP.PTDCSUM ---
Discharge Summary D/C summary: It has been my pleasure to treat DESMOND WINCHESTER referred by Dr. Shoshana Ulrich MD, with the diagnosis of STRAIN OF MUSCLE ,FASCIA NECK ,STARIN OF MUSCLE NECK WALL OF THORACIC for a total of 8 visit(s). Discharge Date: 09/05/23 Please see the following information for a summary of their discharge status. Subjective Subjective: Turn neck to drive Pain Bilateral Neck: Pain Intensity (Out of 10): 0 Bilateral Shoulder: Pain Intensity (Out of 10): 0 Overall Improvement % Improvement: 90 Objective Objective/Function: POSTURE: mod thoracic kyphosis ,head forward flexed ,hips/knees flexed NEURO: denies paresthesia/tingling ,reflexes C5-6-7 1/3 PALPATION: tender UT/levator ,paraspinals ,occiput GAIT: ambulates with cane AROM: WFL shoulders MMT: BUE grossly 4/5 ,shoulders 4-/5 CERVICAL ROM: flexion min loss ,extension MIN/MOD loss pain ,lateral flexion/rotation MIN/mod loss right ,MIN/MOD loss left Goals Goal 1:: Patient to be I with HEP for neck Goal Progress: Goal Met Goal 2:: Patient to demonstrate 40-50% improvement with less pain and improved function Goal 3:: Patient to improve cervical ROM for function of recovery to drive car and ADLS Goal Progress: Goal Met Goal 4:: Patient to improve neck oswestry score by 5 points to improve QOL and function Goal Progress: Goal Met Plan Plan: D/C To HEP D/C Information Discharge Comments: HEP d/c sentence: If there are questions or concerns regarding this patient's physical therapy, please feel free to call me at [phone]. Thank you for the referral of this patient. Sincerely, Pola Bustamante, PT, Cert MDT, OCS Balance/Gait/Functional tests Balance/Special Test Scores Oswestry Neck Score: 3 Improvement % Improvement: 90
== END 2023-09-05 19:00 | disposition home or self-care (01) ==
LOC: PT 11:30
PROVIDERS: PCP Family Medicine; Referring Provider Family Medicine; Visit Provider Family Medicine
DX: S16.1XXD Strain of muscle, fascia and tendon at neck level, subsequent encounter (principal); S29.019D Strain of muscle and tendon of unspecified wall of thorax, subsequent encounter
CPT/HCPCS: 97110; 97140; 97162; 97530

== ENCOUNTER 2023-09-19 08:24 | Inpatient (IN) | payer MEDICARE, SELFPAY ==
[2023-09-19] VITALS (7 sets, daily range): BP systolic 111–153; BP diastolic 57–84; PULSE 68–90; RESP 15–18; TEMP 36.1–36.8; O2SAT 97–100; BMI 22.0
--- NOTE | 2023-09-19 08:50 | CT_ITS ---
STUDY: CT ABDOMEN AND PELVIS WITH CONTRAST REASON FOR EXAM: Male, 88 years old. Bright red blood in the stool. Left lower quadrant pain. RADIATION DOSAGE (If Supplied By Facility): CTDIvol = ( 15.00 ) mGy, DLP = ( 583.65 ) mGycm TECHNIQUE: Transaxial images were obtained from the dome of the diaphragm to the symphysis pubis without oral contrast. IV 100mL Isovue-300 was administered. Sagittal and coronal images were reconstructed. Individualized dose optimization techniques were used for this CT. COMPARISON: Comparison is made with prior study dated September 08, 2021. FINDINGS: Stable pleural-parenchymal changes in the posterior medial segment of the right lower lobe suggestive of round atelectasis. Coronary artery calcification. Stable 9.2 cm hypodensity in the anterior aspect of the right lobe of the liver inferiorly. Normal gallbladder and extrahepatic biliary system. There are multiple benign calcified granulomata of the spleen. Normal pancreas. There is a small, circumscribed, smooth, low attenuation right adrenal mass, consistent with an adrenal adenoma. This measures 1.8 cm. Normal left adrenal gland. There is a 3.4 mm nonobstructive calculus in the posterior mid pole calyx of the right kidney. Stable 1.3 cm cyst in the lower pole. 2.4 cm cyst in the anterior upper pole of the left kidney. Normal visualized stomach. Normal small intestine. There are multiple colonic diverticula consistent with diverticulosis. The appendix is visualized and appears normal. There is diffuse atherosclerotic calcification of the abdominal aorta, without a demonstrated aneurysm. Normal inferior vena cava. Normal retroperitoneum. Mild degree of diffuse bladder wall thickening although the bladder was not completely distended at this time. 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 There is evidence of a prior TURP. Normal abdominal wall. There are diffuse degenerative changes of the visualized lumbar spine. Loss of the normal lumbar lordosis. Spinal cord stimulator and electrodes are seen. CT/Abdomen/Pelvis W IV Cont ONLY IMPRESSION: Diffuse diverticulosis of the sigmoid colon. Stable adenoma in the right adrenal gland. Stable bilateral renal cysts. Findings suggestive of a round atelectasis in the right lower lobe. Electronically Signed: Felix Dykes MD at 10:16 EDT ,
--- NOTE | 2023-09-19 08:55 | ED.RN ---
PT DAUGHTER, KENNETH CALLED, COREY CONCERNED OF HUSBANDS WELL BEING. ASKED TO CALL WITH UPDATE RESULTS COME BACK. COREY () [phone] (TOLD TO SPEAK SLOWLY, EASILY CONFUSED) KENNETH (DAUGHTER) [phone] WENDY (SON) [phone]
--- NOTE | 2023-09-19 09:02 | ED.VIS.GI ---
HPI HPI - GI History of Present Illness Chief Complaint: GI Bleed Narrative Narrative: 88-year-old male presenting with bright red bleeding per rectum. He has a history of hemorrhoids but states they are not bleeding. He is not on any blood thinners. He states he has a history of GI bleed in the past a couple of years ago but states he does not think he was admitted to the hospital. Patient states that last night he had a bit of a headache and took a couple of aspirin. This morning he states he does not feel too unwell but noticed he is having some pressure in his lower abdomen and points to just below the umbilicus and to the left. Patient states that he had a couple of hours of blood in his stool with the pressure. The pressure was intermittent. He is not lightheaded, dizzy, nauseous. Denies surgical history in the abdomen. Denies urinary complaints. 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 Prostate disease Restless legs Shortness of breath on exertion Shoulder pain Smoker Wears glasses Wears hearing aid in both ears Home Medications albuterol sulfate 90 mcg/actuation aerosol inhaler 1 puff inhalation Q4H PRN sob/wheezing 09/08/21 [History Last Taken Unknown] finasteride 5 mg tablet 5 mg PO DAILY 09/08/21 [History Last Taken Unknown] amlodipine 5 mg tablet 5 mg PO DAILY 07/02/22 [History Last Taken 09/18/23] gabapentin 100 mg capsule 100 mg PO QHS 10/27/22 [History Last Taken 09/18/23] oxycodone 5 mg capsule 5 mg PO Q6H PRN pain 3 days #10 caps 11/03/22 [Rx Last Taken 09/18/23] artifi.tears(hypromellose)(PF) 1.7 % eye drops with applicator 1 drp EACH EYE DAILY PRN dry eyes 09/19/23 [History Last Taken Unknown] budesonide 160 mcg-glycopyr 9 mcg-formot 4.8 mcg/actuation HFA inhaler (Breztri Aerosphere) 2 inh inhalation BID 09/19/23 [History Last Taken 09/18/23] nystatin 100,000 unit/gram topical cream 1 applic topical 4X/DAY PRN skin irritation 09/19/23 [History Last Taken Unknown] oxybutynin chloride 10 mg tablet,extended release 24 hr 10 mg PO DAILY 09/19/23 [History Last Taken Unknown] Allergy/AdvReac Type Severity Reaction Status Date / Time ibuprofen [From Motrin] Allergy Swelling Verified 09/19/23 08:25 Surgical History History of cystoscopy History of esophagogastroduodenoscopy (EGD) History of hand surgery History of parotidectomy History of varicose vein stripping Hx of basal cell carcinoma excision Hx of decompressive lumbar laminectomy Hx of finger joint replacement Hx of myringotomy S/P insertion of spinal cord stimulator Social History household members: spouse Smoking Status: Current every day smoker tobacco type: cigarettes alcohol intake: current alcohol intake frequency: 0-2 drinks per day Alcohol type: hard liquor ROS ROS ED Constitutional Constitutional ED: Denies chills, fever(s) or sweats Eyes Eyes: Denies blurry vision or change in vision ENT ENT ED: Denies ear pain or sore throat Cardiovascular Cardiovascular: Denies chest pain, palpitations or racing heartbeat Respiratory/Chest Respiratory/Chest: Denies cough, dyspnea or sputum Gastrointestinal Gastrointestinal: Reports abdominal pain, diarrhea and other Details: Bright red bleeding per rectum ; Denies constipation, nausea or vomiting Genitourinary Genitourinary ED: Denies dysuria, hematuria or urinary frequency Musculoskeletal Musculoskeletal: Denies arthralgias, myalgias or neck pain Integumentary Denies abscess, Abrasions or rash Neurologic Neurologic: Denies headache(s), paresthesias or weakness Psychiatric Psychiatric: Denies anxiety, depression, suicidal ideation or suicidal thoughts Endocrine Endocrinology: Denies polydipsia or polyuria EXAM Physical Exam Const Vital Signs: 09/19/23 08:25 09/19/23 10:24 09/19/23 12:00 Temperature 96.9 F L Temperature Source Temporal Pulse Rate 90 68 87 Respiratory Rate 18 18 18 Blood Pressure 153/83 H 133/60 H 119/71 Blood Pressure Mean 106 84 87 Pulse Ox 99 97 97 Oxygen Delivery Method Room Air Room Air Room Air Positive well nourished General Appearance ED: NAD HEENT Reports moist mucous membranes normocephalic and atraumatic Eyes PERRL and EOMs intact bilaterally General Eye ED: Negative for pale conjunctiva Resp normal respiratory effort Auscultation: Negative for rales or rhonchi Cardio regular rate and regular rhythm GI non-tender, non-distended and no masses GI Narrative: Rectal exam: Bright red bleeding around the rectal region. Hemorrhoids without thrombosis or bleeding. Neuro CN's II-XII intact bilaterally and moves all extremities Sensorium / Orientation: alert Motor Exam: strength 5/5 throughout Psych mental status grossly normal Skin no wounds MDM MDM MDM Narrative Medical decision making narrative: Patient presenting with lower abdominal pressure and rectal bleeding per rectum. Differential includes colitis, diverticulitis, enteritis. Patient is not on any anticoagulation. He does not have any pain on examination and his vital signs are stable. CBC will be obtained to assess for blood cell count, hemoglobin, platelets CMP to assess liver function, renal function electrolytes, glucose. T/INR to assess for coagulopathy. Patient typed and screened. Will obtain a CT of the abdomen pelvis IV contrast. Review of the medical record shows the patient has a history of diverticulitis with bleeding associated. CBC shows normal white blood cell count of 6.8. Hemoglobin 10.9. This is only slightly lower than her previous hemoglobin which is 11.4. Renal function and electrolytes normal. LFTs are normal. PT/INR normal. CT of the abdomen pelvis with no evidence of diverticulitis. Bleeding is likely due to this is likely a diverticular bleed. I discussed with Dr. Lee who is amenable to keeping the here at [facility]. Admitted to hospitalist. Patient did have another bloody bowel movement in the ER. His stool sample was sent for testing. This will be followed up in the office.. Impression 1. Abdominal pain 2. Lower GI Lab Data Attestation: I reviewed the patient's lab results. Labs: Laboratory Results - last 24 hr 09/19/23 08:45 WBC 6.8 RBC 3.40 L Hgb 10.9 L Hct 34.0 L MCV 100.0 H MCH 32.1 H MCHC 32.1 RDW Std Deviation 55.0 H RDW Coeff of Beth 14.9 H Plt Count 193 MPV 10.6 Immature Gran % (Auto) 0.700 Neut % (Auto) 68.4 Lymph % (Auto) 15.3 L [place] % (Auto) 6.9 Eos % (Auto) 8.1 H Baso % (Auto) 0.6 Absolute Neuts (auto) 4.6 Absolute Lymphs (auto) 1.04 Nucleated RBC % 0 PT 13.8 INR 1.1 Sodium 139 Potassium 4.5 Chloride 111 H Carbon Dioxide 26.0 Anion Gap 2 L BUN 30 H Creatinine 1.25 Estim Creat Clear Calc 39.46 Est GFR (MDRD) Af Amer 70 Est GFR (MDRD) Non-Af 58 L BUN/Creatinine Ratio 24.0 H Glucose 109 H Calcium 8.8 Total Bilirubin 0.30 AST 15 ALT 18 Alkaline Phosphatase 62 Total Protein 6.3 L Albumin 3.2 Globulin 3.1 Albumin/Globulin Ratio 1.0 Blood Type A POSITIVE Antibody Screen NEGATIVE Radiography Diagnostic Testing: Clinical Impression(s) from Imaging Studies Abdomen/Pelvis CT 09/19/23 08:50 IMPRESSION: Diffuse diverticulosis of the sigmoid colon. Stable adenoma in the right adrenal gland. Stable bilateral renal cysts. Findings suggestive of a round atelectasis in the right lower lobe. Electronically Signed: Felix Dykes MD at 10:16 EDT , Discharge Plan Triage Chief Complaint: GI Bleed ED Provider: Russel Pal Dx/Rx/DC Orders Primary Care Provider: Shoshana Ulrich
[2023-09-19 09:06] LABS: Absolute Lymphocyte Count 1.04 X10^3/uL (0.83-4.51); Absolute Neutrophil Count 4.6 X10^3/uL (2.0-7.7); Basophil# 0.04 X10^3/uL; Basophil% 0.6 % (0-1); Eosinophil# 0.55 X10^3/uL; Eosinophils% 8.1 % (0-5); Hemoglobin 10.9 g/dL (13.0-16.5); Lymphocyte # 1.04 X10^3/ul (0.83-4.51); Lymphocyte % 15.3 % (19-41); Mean Corp Hgb Conc 32.1 g/dL (32-36); Mean Corpuscular Hgb 32.1 pg (27.0-32.0); Mean Platelet Vol. 10.6 fl (6.2-12.0); Monocyte# 0.47 X10^3/uL; Monocyte% 6.9 % (0-10); NRBC Flagged by Analyzer 0 % (0-5); Neutrophil # 4.64 X10^3/uL (2.7-7.7); Neutrophil % 68.4 % (47-70); Platelet Count 193 K/mm3 (150-450); RBC Distribution Width CV 14.9 % (11.6-14.6); White Blood Count 6.8 K/mm3 (4.4-11.0)
[2023-09-19 09:23] LABS: AST(SGOT) 15 U/L (15-37); Alanine Aminotransfer ALT/SGPT 18 U/L (16-61); Albumin, Serum 3.2 g/dL (3.2-5.0); Alkaline Phosphatase 62 U/L (45-117); Anion Gap 2 (5-15); BUN 30 mg/dL (7-18); Calcium,Total 8.8 mg/dL (8.5-10.1); Chloride 111 mmol/L (98-107); Creatinine, Serum 1.25 mg/dL (0.70-1.30); EST Glomerular Filtration Rate 58 mL/min (>60); Est Glom Filt Rate - Afr Amer 70 mL/min (>60); Estimated Creatinine Clearance 39.46 ml/min; Globulin 3.1 g/dL (2.2-4.2); Glucose 109 mg/dL (74-106); Potassium 4.5 mmol/L (3.5-5.1); Protein, Total 6.3 g/dL (6.4-8.2); Sodium Level 139 mmol/L (136-145)
[2023-09-19 09:37] LABS: International Normalized Ratio 1.1; Prothrombin Time (Protime)PT. 13.8 SECONDS (11.7-14.9)
--- NOTE | 2023-09-19 12:17 | PCM.HP.STD ---
HPI - General General Date of Admission: 09/19/23 Date of Service: 09/19/23 Chief Complaint: BRBPR HPI Narrative DESMOND WINCHESTER, is a 88 M who presented to the emergency department [facility] on 09/19/2023 with bright red blood per rectum. He stated it started on the day of presentation. He reported when he woke up this morning he felt okay but had some pressure in his lower abdomen just below the umbilicus into the left. He stated after that he had a couple bouts of loose stool with blood noted that relieved the pressure. He denied any lightheadedness, dizziness, nausea, or vomiting. He does of diverticulosis and diverticulitis and remote history of GI bleeding but does not think he was admitted to the hospital at that time. He is not currently on anticoagulation but did complain of a headache last evening at which time he took 2 aspirin. Headache is resolved at this time. He indicated if he was not having blood in his stool he would not be in the emergency department. Vital signs on presentation showed temperature 96.9, heart rate was 90, blood pressure was 153/83, respiratory is 18 oxygen saturations are 99% on room air. CBC showed an anemia that is slightly worse than baseline at 10.9. Baseline appears to be between 11 and 12. Platelet count was normal and he had no leukocytosis. Coags were normal. His chemistry panel was overtly unremarkable with a chronic stable elevated BUN and creatinine and a normal ratio. Serum creatinine on presentation was 1.25 (baseline 1-1.3). His glucose was 109. LFTs were unremarkable. CT abdomen pelvis was done and showed diffuse diverticulosis in the sigmoid colon, stable adenoma of the right adrenal gland, stable bilateral renal cysts and round atelectasis in the right lower lobe. Emergency department discussed the case with gastroenterology and they recommended admission given his ongoing bleeding and diarrhea. Enteric panel and C. difficile were ordered by the emergency department and found to be negative. 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 Prostate disease Restless legs Shortness of breath on exertion Shoulder pain Smoker Wears glasses Wears hearing aid in both ears Home Medications albuterol sulfate 90 mcg/actuation aerosol inhaler 1 puff inhalation Q4H PRN sob/wheezing 09/08/21 [History Last Taken Unknown] finasteride 5 mg tablet 5 mg PO DAILY 09/08/21 [History Last Taken Unknown] amlodipine 5 mg tablet 5 mg PO DAILY 07/02/22 [History Last Taken 09/18/23] gabapentin 100 mg capsule 100 mg PO QHS 10/27/22 [History Last Taken 09/18/23] oxycodone 5 mg capsule 5 mg PO Q6H PRN pain 3 days #10 caps 11/03/22 [Rx Last Taken 09/18/23] artifi.tears(hypromellose)(PF) 1.7 % eye drops with applicator 1 drp EACH EYE DAILY PRN dry eyes 09/19/23 [History Last Taken Unknown] budesonide 160 mcg-glycopyr 9 mcg-formot 4.8 mcg/actuation HFA inhaler (Breztri Aerosphere) 2 inh inhalation BID 09/19/23 [History Last Taken 09/18/23] nystatin 100,000 unit/gram topical cream 1 applic topical 4X/DAY PRN skin irritation 09/19/23 [History Last Taken Unknown] oxybutynin chloride 10 mg tablet,extended release 24 hr 10 mg PO DAILY 09/19/23 [History Last Taken Unknown] Allergy/AdvReac Type Severity Reaction Status Date / Time ibuprofen [From Motrin] Allergy Swelling Verified 09/19/23 08:25 no significant family history Surgical History History of cystoscopy History of esophagogastroduodenoscopy (EGD) History of hand surgery History of parotidectomy History of varicose vein stripping Hx of basal cell carcinoma excision Hx of decompressive lumbar laminectomy Hx of finger joint replacement Hx of myringotomy S/P insertion of spinal cord stimulator Social History (Updated 09/19/23 @ 17:[address] Rosemary Fernandez DO) household members: spouse housing: house Smoking Status: Current every day smoker tobacco type: cigarettes Smoking packs per day: 0.5 Smoking cigarettes per day: 10.0 alcohol intake: former substance use type: does not use ROS Constitutional Constitutional: Denies anorexia, change in weight, chills, fatigue, fever(s), malaise, night sweats, weakness or other Eyes Eyes: Denies blurry vision, change in eye color, change in vision, discharge from eye(s), double vision, erythema, eye pain, loss of vision or other ENT HEENT: Reports abnormal hearing; Denies dysphagia, ear pain, epistaxis, headache(s), hearing loss, nasal congestion, nasal discharge, post nasal drip, sinus pressure, sore throat or other Cardiovascular Cardiovascular: Denies chest pain, claudication, dyspnea on exertion, edema, lightheadedness, orthopnea, palpitations, paroxysmal nocturnal dyspnea, rapid heart rate, syncope or other Respiratory/Chest Respiratory/Chest: Denies cough, dyspnea, excessive phlegm production, hemoptysis, productive cough, shortness of breath at rest, shortness of breath with exertion, wheezing or other Gastrointestinal Gastrointestinal: Reports abdominal pain, diarrhea and hematochezia; Denies coffee ground emesis, constipation, dyspepsia, hematemesis, loose stools, melena, nausea, vomiting or other Genitourinary Genitourinary: Reports difficulty urinating, nocturia, urinary frequency and urinary hesitancy; Denies burning urination, dysuria, hematuria, urinary incontinence, urinary urgency or other Musculoskeletal Musculoskeletal: Reports back pain, joint pain and joint stiffness; Denies arthralgias, joint swelling, myalgias, neck pain or other Neurologic Neurologic: Denies abnormal gait, abnormal speech, confusion, disequilibrium, dizziness, focal weakness, headache(s), numbness, paresthesias, seizure-like activity, seizures, syncope, tingling, tremor(s) or other Psychiatric Psychiatric: Denies anxiety, depression, homicidal ideation, suicidal ideation or other Endocrine Endocrinology: Denies change in body appearance, cold intolerance, excessive sweating, heat intolerance, polydipsia, polyuria or other Hematologic/Lymphatic Hematologic/Lymphatic: Denies anemia, easy bleeding, easy bruising, lymphadenopathy or other Allergic/Immunologic Allergic/Immunologic: Denies rhinitis, hives, eczemia, asthma or other Vital Signs Vital Signs Vital Signs: 09/19/23 08:25 09/19/23 10:24 09/19/23 12:00 Temperature 96.9 F L Temperature Source Temporal Pulse Rate 90 68 87 Respiratory Rate 18 18 18 Blood Pressure 153/83 H 133/60 H 119/71 Blood Pressure Mean 106 84 87 Pulse Ox 99 97 97 Oxygen Delivery Method Room Air Room Air Room Air Weight Weight: 65.771 kg Body Mass Index (BMI) 22.0 Physical Exam Const alert, oriented x3, no apparent distress, average body habitus and well nourished Constitutional Narrative: Very pleasant, elderly, white male, sitting up in bed watching television, appears comfortable and nontoxic General Appearance: cooperative HEENT normocephalic, head/scalp atraumatic and moist oral mucous membranes HEENT Narrative: Mild to moderate hearing loss, dentition is poor, mild putty is 2-3, no thrush Eyes PERRL, EOMs intact bilaterally and conjunctivae normal Eyes Narrative: No scleral icterus Neck no lymphadenopathy and supple Neck Narrative: Trachea midline, no thyroid enlargement Resp normal respiratory effort, no retractions, no use of accessory muscles and No clear to auscultation bilaterally Resp Narrative: Diffusely diminished with few scattered end expiratory wheezes that clear with cough Auscultation: wheezes; Negative for rales or rhonchi Cardio regular rate, regular rhythm, S1 normal heart sound, S2 normal heart sound, no murmurs, no rub, no gallops and no clicks GI normal to inspection, nondistended, normoactive bowel sounds, soft to palpation and non-tender Extremity no clubbing, cyanosis or edema Extremity Narrative: Pedal pulses are 2+ Skin skin turgor normal, no jaundice, no petechiae and no mottling Skin Narrative: Age and sun exposure related changes noted but no wounds or rashes Neuro oriented x3, CN's II-XII intact bilaterally, moves all extremities and no focal motor deficits Speech: speech normal Psych affect normal Psych Narrative: Interacts appropriately, eye contact is good, very pleasant Results Lab / Micro Data 09/19/23 14:04 09/19/23 08:45 Labs: Laboratory Results - last 24 hr 09/19/23 08:45: WBC 6.8, RBC 3.40 L, Hgb 10.9 L, Hct 34.0 L, MCV 100.0 H, MCH 32.1 H, MCHC 32.1, RDW Std Deviation 55.0 H, RDW Coeff of Beth 14.9 H, Plt Count 193, MPV 10.6, Immature Gran % (Auto) 0.700, Neut % (Auto) 68.4, Lymph % (Auto) 15.3 L, [place] % (Auto) 6.9, Eos % (Auto) 8.1 H, Baso % (Auto) 0.6, Absolute Neuts (auto) 4.6, Absolute Lymphs (auto) 1.04, Nucleated RBC % 0, PT 13.8, INR 1.1, Sodium 139, Potassium 4.5, Chloride 111 H, Carbon Dioxide 26.0, Anion Gap 2 L, BUN 30 H, Creatinine 1.25, Estim Creat Clear Calc 39.46, Est GFR (MDRD) Af Amer 70, Est GFR (MDRD) Non-Af 58 L, BUN/Creatinine Ratio 24.0 H, Glucose 109 H, Calcium 8.8, Total Bilirubin 0.30, AST 15, ALT 18, Alkaline Phosphatase 62, Total Protein 6.3 L, Albumin 3.2, Globulin 3.1, Albumin/Globulin Ratio 1.0, Blood Type A POSITIVE, Antibody Screen NEGATIVE Imaging Radiology Impression Abdomen/Pelvis CT 09/19/23 08:50 IMPRESSION: Diffuse diverticulosis of the sigmoid colon. Stable adenoma in the right adrenal gland. Stable bilateral renal cysts. Findings suggestive of a round atelectasis in the right lower lobe. Electronically Signed: Felix Dykes MD at 10:16 EDT , Assessment & Plan Assessment/Plan (1) GIB (gastrointestinal bleeding): (2) BRBPR (bright red blood per rectum): (3) Acute on chronic anemia: PLAN: Plan Lower GI bleed with bright red blood per rectum -Highly suspect lower GI bleed -Clear liquid diet -Start bowel prep later today -Will start LR at 1800 to avoid dehydration with bowel prep -Will cycle hemoglobin every 6 hours -Transfuse for precipitous drop or hemoglobin less than 7 -Low suspicion of upper GI bleed with normal BUN to serum creatinine ratio -Patient has CT of the abdomen pelvis done which showed significant diverticulosis with no acute abnormality identified -GI consulted-discussed with Dr. Lee-plan is for colonoscopy tomorrow Diarrhea -Suspect related to bleeding -Enteric panel and C. 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 Urinary retention -Continue home oxybutynin COPD -Continue home inhalers -As needed albuterol Chronic pain -Continue home oxycodone -continue home gabapentin JASMIN -Continue home CPAP Tobacco abuse -Patient continues to smoke about 10 cigarettes daily -denies need for nicotine replacement therapy -Encouraged cessation -Patient states he plans on quitting on October 11, 2023 per discussion with his prior to admission DVT prophylaxis -No chemoprophylaxis due to GI bleed -SCDs CODE STATUS -DNR CCA but okay for short-term intubation -I did discuss with patient that his CODE STATUS would we suspended during his procedures and that in the event of a cardiac or respiratory arrest he would be full code at that time until after he was stabilized following endoscopy. He voiced interest standing and is agreeable with proceeding with endoscopy. Charges/Coding Visit Charges Inpatient E&M: 55668 Init Hosp L2
[2023-09-19 14:16] LABS: Hematocrit 31.4 % (40-54); Hemoglobin 9.8 g/dL (13.0-16.5)
[2023-09-19] MEDS: Bisacodyl 5 MG Tablet 20 MG PO (15:18)
[2023-09-19] MEDS: Polyethylene Glycol 3350 BOWEL PREP 1 BOTTLE PO (16:13)
--- NOTE | 2023-09-19 17:50 | EX.PCM.CON.G ---
HPI Consult Data Date of Consult: 09/19/23 HPI Narrative Reason for Consultation: GI bleed HPI Narrative: DESMOND WINCHESTER, is a 88-year-old male presenting with bright red bleeding per rectum. He has a history of hemorrhoids but states they are not bleeding. He is not on any blood thinners. He states he has a history of GI bleed in the past a couple of years ago but states he does not think he was admitted to the hospital. Patient states that last night he had a bit of a headache and took a couple of aspirin. This morning he states he does not feel too unwell but noticed he is having some pressure in his lower abdomen and points to just below the umbilicus and to the left. Patient states that he had a couple of hours of blood in his stool with the pressure. The pressure was intermittent. He is not lightheaded, dizzy, nauseous. Denies surgical history in the abdomen. Denies urinary complaints. CT scan : Diffuse diverticulosis of the sigmoid colon. Stable adenoma in the right adrenal gland. Stable bilateral renal cysts. Findings suggestive of a round atelectasis in the right lower lobe. 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 Prostate disease Restless legs Shortness of breath on exertion Shoulder pain Smoker Wears glasses Wears hearing aid in both ears Home Medications albuterol sulfate 90 mcg/actuation aerosol inhaler 1 puff inhalation Q4H PRN sob/wheezing 09/08/21 [History Last Taken Unknown] finasteride 5 mg tablet 5 mg PO DAILY 09/08/21 [History Last Taken Unknown] amlodipine 5 mg tablet 5 mg PO DAILY 07/02/22 [History Last Taken 09/18/23] gabapentin 100 mg capsule 100 mg PO QHS 10/27/22 [History Last Taken 09/18/23] oxycodone 5 mg capsule 5 mg PO Q6H PRN pain 3 days #10 caps 11/03/22 [Rx Last Taken 09/18/23] artifi.tears(hypromellose)(PF) 1.7 % eye drops with applicator 1 drp EACH EYE DAILY PRN dry eyes 09/19/23 [History Last Taken Unknown] budesonide 160 mcg-glycopyr 9 mcg-formot 4.8 mcg/actuation HFA inhaler (Breztri Aerosphere) 2 inh inhalation BID 09/19/23 [History Last Taken 09/18/23] nystatin 100,000 unit/gram topical cream 1 applic topical 4X/DAY PRN skin irritation 09/19/23 [History Last Taken Unknown] oxybutynin chloride 10 mg tablet,extended release 24 hr 10 mg PO DAILY 09/19/23 [History Last Taken Unknown] Allergy/AdvReac Type Severity Reaction Status Date / Time ibuprofen [From Motrin] Allergy Swelling Verified 09/19/23 08:25 Family History no significant family his Surgical History History of cystoscopy History of esophagogastroduodenoscopy (EGD) History of hand surgery History of parotidectomy History of varicose vein stripping Hx of basal cell carcinoma excision Hx of decompressive lumbar laminectomy Hx of finger joint replacement Hx of myringotomy S/P insertion of spinal cord stimulator Social History (Updated 09/19/23 @ 17:[address] Rosemary Fernandez DO) household members: spouse housing: house Smoking Status: Current every day smoker tobacco type: cigarettes Smoking packs per day: 0.5 Smoking cigarettes per day: 10.0 alcohol intake: former substance use type: does not use ROS Constitutional Constitutional: Denies anorexia, change in weight, chills, fatigue, fever(s), malaise, night sweats, weakness or other Eyes Eyes: Denies blurry vision, change in eye color, change in vision, discharge from eye(s), double vision, erythema, eye pain, loss of vision or other ENT HEENT: Reports abnormal hearing; Denies dysphagia, ear pain, epistaxis, headache(s), hearing loss, nasal congestion, nasal discharge, post nasal drip, sinus pressure, sore throat or other Cardiovascular Cardiovascular: Denies chest pain, claudication, dyspnea on exertion, edema, lightheadedness, orthopnea, palpitations, paroxysmal nocturnal dyspnea, rapid heart rate, syncope or other Respiratory/Chest Respiratory/Chest: Denies cough, dyspnea, excessive phlegm production, hemoptysis, productive cough, shortness of breath at rest, shortness of breath with exertion, wheezing or other Gastrointestinal Gastrointestinal: Reports abdominal pain, diarrhea and hematochezia; Denies coffee ground emesis, constipation, dyspepsia, hematemesis, loose stools, melena, nausea, vomiting or other Genitourinary Genitourinary: Reports difficulty urinating, nocturia, urinary frequency and urinary hesitancy; Denies burning urination, dysuria, hematuria, urinary incontinence, urinary urgency or other Musculoskeletal Musculoskeletal: Reports back pain, joint pain and joint stiffness; Denies arthralgias, joint swelling, myalgias, neck pain or other Neurologic Neurologic: Denies abnormal gait, abnormal speech, confusion, disequilibrium, dizziness, focal weakness, headache(s), numbness, paresthesias, seizure-like activity, seizures, syncope, tingling, tremor(s) or other Psychiatric Psychiatric: Denies anxiety, depression, homicidal ideation, suicidal ideation or other Endocrine Endocrinology: Denies change in body appearance, cold intolerance, excessive sweating, heat intolerance, polydipsia, polyuria or other Hematologic/Lymphatic Hematologic/Lymphatic: Denies anemia, easy bleeding, easy bruising, lymphadenopathy or other Allergic/Immunologic Allergic/Immunologic: Denies rhinitis, hives, eczemia, asthma or other Physical Exam Const alert, oriented x3, no apparent distress, average body habitus and well nourished Constitutional Narrative: Very pleasant General Appearance: cooperative HEENT normocephalic, head/scalp atraumatic and moist oral mucous membranes HEENT Narrative: Mild to moderate hearing loss, dentition is poor, mild putty is 2-3, no thrush Eyes PERRL, EOMs intact bilaterally and conjunctivae normal Eyes Narrative: No scleral icterus Neck no lymphadenopathy and supple Neck Narrative: Trachea midline, no thyroid enlargement Resp normal respiratory effort, no retractions, no use of accessory muscles and No clear to auscultation bilaterally Resp Narrative: Diffusely diminished with few scattered end expiratory wheezes that clear with cough Auscultation: wheezes; Negative for rales or rhonchi Cardio regular rate, regular rhythm, S1 normal heart sound, S2 normal heart sound, no murmurs, no rub, no gallops and no clicks GI normal to inspection, nondistended, normoactive bowel sounds, soft to palpation and non-tender Extremity no clubbing, cyanosis or edema Extremity Narrative: Pedal pulses are 2+ Skin skin turgor normal, no jaundice, no petechiae and no mottling Skin Narrative: Age and sun exposure related changes noted but no wounds or rashes Neuro oriented x3, CN's II-XII intact bilaterally, moves all extremities and no focal motor deficits Speech: speech normal Psych affect normal Psych Narrative: Interacts appropriately, eye contact is good, very pleasant Lab / Micro Data 09/19/23 14:04 09/19/23 08:45 Labs: Laboratory Results - last 24 hr 09/19/23 08:45: WBC 6.8, RBC 3.40 L, Hgb 10.9 L, Hct 34.0 L, MCV 100.0 H, MCH 32.1 H, MCHC 32.1, RDW Std Deviation 55.0 H, RDW Coeff of Beth 14.9 H, Plt Count 193, MPV 10.6, Immature Gran % (Auto) 0.700, Neut % (Auto) 68.4, Lymph % (Auto) 15.3 L, Baker % (Auto) 6.9, Eos % (Auto) 8.1 H, Baso % (Auto) 0.6, Absolute Neuts (auto) 4.6, Absolute Lymphs (auto) 1.04, Nucleated RBC % 0, PT 13.8, INR 1.1, Sodium 139, Potassium 4.5, Chloride 111 H, Carbon Dioxide 26.0, Anion Gap 2 L, BUN 30 H, Creatinine 1.25, Estim Creat Clear Calc 39.46, Est GFR (MDRD) Af Amer 70, Est GFR (MDRD) Non-Af 58 L, BUN/Creatinine Ratio 24.0 H, Glucose 109 H, Calcium 8.8, Total Bilirubin 0.30, AST 15, ALT 18, Alkaline Phosphatase 62, Total Protein 6.3 L, Albumin 3.2, Globulin 3.1, Albumin/Globulin Ratio 1.0, Blood Type A POSITIVE, Antibody Screen NEGATIVE 09/19/23 14:04: Hgb 9.8 L, Hct 31.4 L Micro: Microbiology 09/19/23 11:51 Stool Stool Lactoferrin - Final 09/19/23 11:51 Stool Enteric Bacteriology - Final 09/19/23 11:51 Stool Clostridioides difficile (PCR) - Final Imaging Radiology Impression Abdomen/Pelvis CT 09/19/23 08:50 IMPRESSION: Diffuse diverticulosis of the sigmoid colon. Stable adenoma in the right adrenal gland. Stable bilateral renal cysts. Findings suggestive of a round atelectasis in the right lower lobe. Electronically Signed: Felix Dykes MD at 10:16 EDT , Assessment & Plan Assessment/Plan (1) GIB (gastrointestinal bleeding): (2) BRBPR (bright red blood per rectum): (3) Acute on chronic anemia: PLAN: Plan 88yo with lower gi bleed: Differential diagnosis for his GI bleed would be lower GI bleed secondary to diverticular bleed, ischemic colitis, hemorrhoidal disease, angiodysplasia, less likely neoplasia or upper GI with rapid transit. We will perform colonoscopy tomorrow to evaluate his lower GI tract. If there is any blood in the terminal ileum then we may need to evaluate his upper GI tract also to see if there is any abnormal lesions in his stomach or proximal small bowel. If that is negative then he may need a capsule study. Charges/Coding Visit Charges Inpatient E&M: 15905 Init Hosp L3
[2023-09-19] MEDS: Lactated Ringers 1,000 ML 75 ML IV (18:27)
[2023-09-19 19:47] LABS: Hematocrit 27.9 % (40-54); Hemoglobin 8.7 g/dL (13.0-16.5)
[2023-09-19] MEDS: Budesonide Respules 0.5 MG/2 ML AMPUL.NEB. INHALATION (20:12)
[2023-09-19] MEDS: Ipratropium/Albuterol Sulfate 3 ML AMPUL.NEB INHALATION (20:12)
[2023-09-19] MEDS: Pantoprazole Sodium 40 MG in 0.9% Normal Saline (100mL MB+) 100 ML 330 MG IV (22:24)
[2023-09-19] MEDS: Gabapentin 100 MG Capsule PO (22:36)
[2023-09-20] VITALS (15 sets, daily range): BP systolic 82–131; BP diastolic 42–82; PULSE 61–88; RESP 14–20; TEMP 36.2–36.9; O2SAT 94–98; BMI 22.8; BMI 22.9
[2023-09-20 02:21] LABS: Hematocrit 24.7 % (40-54); Hemoglobin 8.1 g/dL (13.0-16.5)
[2023-09-20] MEDS: Lactated Ringers 1,000 ML 75 ML IV ×2 (05:57→19:59)
--- NOTE | 2023-09-20 06:00 | EKG12_ITS ---
Test Reason : PRE-OP Blood Pressure : / mmHG Vent. Rate : 071 BPM Atrial Rate : 071 BPM P-R Int : 248 ms QRS Dur : 096 ms QT Int : 410 ms P-R-T Axes : -09 -75 017 degrees QTc Int : 445 ms Sinus rhythm with 1st degree A-V block with Premature atrial complexes Left axis deviation Nonspecific ST and T wave abnormality Abnormal ECG Confirmed by Jam Tobin ([id number]), digital editor MARGAUX THURMAN ([id number]) on 09/20/2023 10:08:56 AM Referred By: GLADYS Confirmed By:Jam Tobin
[2023-09-20 07:07] LABS: Absolute Lymphocyte Count 0.94 X10^3/uL (0.83-4.51); Absolute Neutrophil Count 2.4 X10^3/uL (2.0-7.7); Basophil# 0.04 X10^3/uL; Eosinophil# 0.38 X10^3/uL; Eosinophils% 9.2 % (0-5); Hematocrit 25.7 % (40-54); Hemoglobin 8.3 g/dL (13.0-16.5); Lymphocyte # 0.94 X10^3/ul (0.83-4.51); Lymphocyte % 22.8 % (19-41); Mean Corp Hgb Conc 32.3 g/dL (32-36); Mean Corpuscular Volume 99.2 fL (80-94); Mean Platelet Vol. 10.6 fl (6.2-12.0); Monocyte# 0.32 X10^3/uL; Monocyte% 7.8 % (0-10); NRBC Flagged by Analyzer 0 % (0-5); Neutrophil # 2.43 X10^3/uL (2.7-7.7); Platelet Count 160 K/mm3 (150-450); RBC Distribution Width SD 54.2 fl (35.1-43.9); Red Blood Count 2.59 M/mm3 (4.6-6.2); White Blood Count 4.1 K/mm3 (4.4-11.0)
[2023-09-20] MEDS: Budesonide Respules 0.5 MG/2 ML AMPUL.NEB. INHALATION (07:14)
[2023-09-20] MEDS: Ipratropium/Albuterol Sulfate 3 ML AMPUL.NEB INHALATION (07:14)
[2023-09-20 07:34] LABS: ALB/GLOB Ratio 1.1 RATIO (0.9-2.4); AST(SGOT) 12 U/L (15-37); Alanine Aminotransfer ALT/SGPT 15 U/L (16-61); Albumin, Serum 2.7 g/dL (3.2-5.0); Alkaline Phosphatase 53 U/L (45-117); Anion Gap 1 (5-15); BUN 21 mg/dL (7-18); BUN/Creat Ratio 19.8 RATIO (10-20); Calcium,Total 8.1 mg/dL (8.5-10.1); Chloride 111 mmol/L (98-107); Creatinine, Serum 1.06 mg/dL (0.70-1.30); EST Glomerular Filtration Rate 70 mL/min (>60); Est Glom Filt Rate - Afr Amer 85 mL/min (>60); Globulin 2.5 g/dL (2.2-4.2); Glucose 94 mg/dL (74-106); Magnesium 2.1 mg/dL (1.6-2.6); Phosphorus 3.4 mg/dL (2.5-4.9); Potassium 4.3 mmol/L (3.5-5.1); Protein, Total 5.2 g/dL (6.4-8.2); Sodium Level 140 mmol/L (136-145); Thyroid Stim Hormone (TSH) 1.09 uIU/mL (0.358-3.74)
[2023-09-20] MEDS: Pantoprazole Sodium 40 MG in 0.9% Normal Saline (100mL MB+) 100 ML 330 MG IV ×2 (10:24→20:03)
--- NOTE | 2023-09-20 12:55 | CASEMGMT ---
LEXY LLAMAS Assessment: Face to Face with pt for initial transition planning/care coordination assessment. RN FARHAD introduced self and role at [facility], pt voices understanding and consents to assessment. Pt resting in bed in no distress. Pt is A&O x4 and answers all questions appropriately at this time. Care providers, pharmacy, and demographics verified/updated. Admitting Dx: BRBPR PCP:Mojgan Specialists:Bon, Pain Management; [facility], Dr Salazar, [facility]. [facility]acy[facility] Insurance: [employer] Prescription Benefit: yes LNOK: Alyse - Living Arrangements: Pt lives with in a 1 story home with 3 steps and a handrail to enter. Pt states I with ADLs and IADLs. Pt denies any concerns with going home upon DC. Transportation: Pt drives self and denies concerns with transportation. DME: Shower chair, CPAP, cane HHC/SNF: Denies Hx of. Pt states no concerns with going home at time of dc. Pt states smokes 10 cigaretts a day, denies alcohol use, denies street drug use. Pt states no further concerns/needs. CM to follow. Advised pt to ask CM if any further question/concerns/needs arise, voices understanding. Pt Goal: Home Plan: Home no needs. Elma PUGH CM
--- NOTE | 2023-09-20 13:14 | PCM.PN.HOSP ---
Reason for Visit Reason for Visit: Bright red blood per rectum Subjective Subjective Patient states he is very fatigued due to bowel prep through the night and lots of stool output. He states his stool was still intermittently bloody however less so as the night went on. His hemoglobin did drop but appears to be stabilizing. I did discuss with him transfusion he is amenable to a unit of blood. No specific complaints at this time. Objective Data Objective Data Vital Signs: Vital Signs Temp Pulse Resp BP Pulse Ox O2 Del Method 98.1 F 76 18 112/61 98 Room Air 09/20/23 13:02 09/20/23 13:02 09/20/23 13:02 09/20/23 13:02 09/20/23 13:02 09/20/23 13:02 Oxygen Delivery Method Room Air Weight: 68.5 kg Body Mass Index (BMI) 22.9 Intake & Output: Intake and Output for Last 24 Hours 09/18/23 09/19/23 09/20/23 23:59 23:59 23:59 Intake Total 110 / 110 1307.5 / 1307.5 Balance 110 / 110 1307.5 / 1307.5 Lab / Micro Data 09/20/23 06:35 09/20/23 06:35 Labs: Laboratory Results - last 24 hr 09/19/23 08:45: Crossmatch See Detail 09/19/23 14:04: Hgb 9.8 L, Hct 31.4 L 09/19/23 19:27: Hgb 8.7 L, Hct 27.9 L 09/20/23 02:13: Hgb 8.1 L, Hct 24.7 L 09/20/23 06:35: WBC 4.1 L, RBC 2.59 L, Hgb 8.3 L, Hct 25.7 L, MCV 99.2 H, MCH 32.0, MCHC 32.3, RDW Std Deviation 54.2 H, RDW Coeff of Beth 15.0 H, Plt Count 160, MPV 10.6, Immature Gran % (Auto) 0.200, Neut % (Auto) 59.0, Lymph % (Auto) 22.8, Jasper % (Auto) 7.8, Eos % (Auto) 9.2 H, Baso % (Auto) 1.0, Absolute Neuts (auto) 2.4, Absolute Lymphs (auto) 0.94, Nucleated RBC % 0, Sodium 140, Potassium 4.3, Chloride 111 H, Carbon Dioxide 28.0, Anion Gap 1 L, BUN 21 H, Creatinine 1.06, Estim Creat Clear Calc 48.40, Est GFR (MDRD) Af Amer 85, Est GFR (MDRD) Non-Af 70, BUN/Creatinine Ratio 19.8, Glucose 94, Calcium 8.1 L, Phosphorus 3.4, Magnesium 2.1, Total Bilirubin 0.60, AST 12 L, ALT 15 L, Alkaline Phosphatase 53, Total Protein 5.2 L, Albumin 2.7 L, Globulin 2.5, Albumin/Globulin Ratio 1.1, TSH 1.09 Micro: Microbiology 09/19/23 11:51 Stool Stool Lactoferrin - Final 09/19/23 11:51 Stool Enteric Bacteriology - Final 09/19/23 11:51 Stool Clostridioides difficile (PCR) - Final Physical Exam Const alert, oriented x3, no apparent distress, average body habitus and well nourished Constitutional Narrative: Very pleasant, elderly, white male, lying in left side-lying in the bed currently receiving an enema, appears comfortable, nontoxic General Appearance: cooperative HEENT normocephalic, head/scalp atraumatic and moist oral mucous membranes HEENT Narrative: Dentures in place, Mallampati 2-3, no thrush Resp normal respiratory effort, no retractions, no use of accessory muscles and clear to auscultation bilaterally Resp Narrative: Diffusely diminished but clear Auscultation: Negative for rales, rhonchi or wheezes Cardio regular rate, regular rhythm, S1 normal heart sound, S2 normal heart sound, no murmurs, no rub, no gallops and no clicks GI normal to inspection, nondistended, normoactive bowel sounds, soft to palpation and non-tender Extremity no clubbing, cyanosis or edema Extremity Narrative: Pedal pulses are 2+ Neuro oriented x3, moves all extremities and no focal motor deficits Speech: speech normal Psych affect normal Psych Narrative: Interacts appropriately, eye contact is good, very pleasant Assessment & Plan Assessment/Plan (1) GIB (gastrointestinal bleeding): (2) BRBPR (bright red blood per rectum): (3) Acute on chronic anemia: PLAN: Plan Lower GI bleed with bright red blood per rectum -Highly suspect lower GI bleed -Patient now n.p.o. preparing for EGD and colonoscopy later today -Continue IV fluids -Transfuse 1 unit packed red blood cell -Low suspicion of upper GI bleed with normal BUN to serum creatinine ratio -Patient has CT of the abdomen pelvis done which showed significant diverticulosis with no acute abnormality identified -GI is following-appreciate input Diarrhea -Suspect related to bleeding -Enteric panel and C. 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 Urinary retention -Continue home oxybutynin COPD -Continue home inhalers -As needed albuterol Chronic pain -Continue home oxycodone -continue home gabapentin JASMIN -Continue home CPAP Tobacco abuse -Patient continues to smoke about 10 cigarettes daily -denies need for nicotine replacement therapy -Encouraged cessation -Patient states he plans on quitting on October 11, 2023 per discussion with his prior to admission DVT prophylaxis -No chemoprophylaxis due to GI bleed -SCDs CODE STATUS -DNR CCA but okay for short-term intubation -I did discuss with patient that his CODE STATUS would we suspended during his procedures and that in the event of a cardiac or respiratory arrest he would be full code at that time until after he was stabilized following endoscopy. He voiced interest standing and is agreeable with proceeding with endoscopy. Charges/Coding Visit Charges Inpatient E&M: 73680 Subs Hosp L2
--- NOTE | 2023-09-20 15:00 | COLBX_PTH ---
PATIENT: DESMOND WINCHESTER LOC: MS3 U#:[id number] AGE/SX: 88/M ROOM: [facility] [place] RE09/19/[address]: Dr. Rosemary Fernandez DO : 1935 BED: 1 DIS: 09/21/2023 SPEC #: [id number] RECD: 09/21/23 10:51 STATUS: FARTUN DELGADILLO #: [id number] KANE: 09/20/23 15:[address]: Ra Jesushsaan DEPT: SURGICAL PATHOLOGY RECD BY: Carrie Valdes ENTERED: 09/21/23 11:25 SP TYPE: COLON BX OTHR DR: MD Dr. Rosemary Reza DO Tissues: Sigmoid colon biopsy Procedures: Surgery Specimen Level IV HEADER OPERATION: Colonoscopy, polypectomy, clip application PRE-OP DIAGNOSIS: Gastrointestinal bleeding, Bright red blood per rectum, Acute on chronic anemia TISSUE SUBMITTED: Sigmoid polyps MICROSCOPIC DIAGNOSIS Sigmoid polyp, polypectomy: Fragments of tubular adenoma. /mr 09/22/23 MICROSCOPIC DESCRIPTION Slides are reviewed. GROSS DESCRIPTION Received in fixative is one container labeled with the patient's name and designated Sigmoid polyp. The specimen consists of multiple irregular fragments of light lora soft tissue that in aggregate measure 2.5 x 1.0 x 0.6 cm. Also present in the container are two larger polypoid fragments measuring in aggregate 2.0 x 1.0 x 0.6cm. The specimen is totally submitted in two cassettes. Cassette 1- smaller fragments, Cassette 2- larger polypoid fragments. Mr 09/21/23 TC:1 CPT:40870
--- NOTE | 2023-09-20 16:17 | OP.COLON_ITS ---
Patient Name: Dorian Cramer Procedure Date: 09/20/2023 3:21 PM Date of : 1935 Age: 88 Procedure: Colonoscopy Indications: Hematochezia Providers: Lionel Lee DO Medicines: Monitored Anesthesia Care Patient Profile: This is an 88 year old male. Refer to note in patient chart for documentation of history and physical. Last Colonoscopy: date unknown. Unable to locate last colonoscopy report. Complications: No immediate complications. Procedure: Pre-Anesthesia Assessment: - Prior to the procedure, a History and Physical was performed, and patient medications and allergies were reviewed. The patient is competent. The risks and benefits of the procedure and the sedation options and risks were discussed with the patient. All questions were answered and informed consent was obtained. Patient identification and proposed procedure were verified by the physician in the pre-procedure area. Mental Status Examination: alert and oriented. Airway Examination: normal oropharyngeal airway and neck mobility. Respiratory Examination: clear to auscultation. CV Examination: normal. Prophylactic Antibiotics: The patient does not require prophylactic antibiotics. Prior Anticoagulants: The patient has taken no anticoagulant or antiplatelet agents. ASA Grade Assessment: III - A patient with severe systemic disease. After reviewing the risks and benefits, the patient was deemed in satisfactory condition to undergo the procedure. The anesthesia plan was to use monitored anesthesia care (MAC). Immediately prior to administration of medications, the patient was re-assessed for adequacy to receive sedatives. The heart rate, respiratory rate, oxygen saturations, blood pressure, adequacy of pulmonary ventilation, and response to care were monitored throughout the procedure. The physical status of the patient was re-assessed after the procedure. After I obtained informed consent, the scope was passed under direct vision. Throughout the procedure, the patient's blood pressure, pulse, and oxygen saturations were monitored continuously. The pediatric colonoscope was introduced through the anus and advanced to the cecum, identified by appendiceal orifice and ileocecal valve. The colonoscopy was performed without difficulty. The patient tolerated the procedure well. The quality of the bowel preparation was adequate. The ileocecal valve, appendiceal orifice, and rectum were photographed. Scope In: 3:32:58 PM Scope Out: 4:06:53 PM Total Procedure Duration Time 0 hours 33 minutes 55 seconds Findings: The perianal and digital rectal examinations were normal. 12 sessile polyps were found in the sigmoid colon, transverse colon, hepatic flexure, ascending colon and cecum. The polyps were 1 to 2 mm in size. These polyps were removed with a hot snare. Resection and retrieval were complete. Verification of patient identification for the specimen was done. Estimated blood loss was minimal. Multiple small and large-mouthed diverticula were found in the recto-sigmoid colon, sigmoid colon, descending colon and transverse colon. For hemostasis, two hemostatic clips were successfully placed. Clip agronomist: [employer]. There was no bleeding at the end of the procedure. Four medium-sized localized angiodysplastic lesions with bleeding on contact were found at the splenic flexure. Coagulation for bleeding prevention using snare was successful. Estimated blood loss was minimal. Non-bleeding internal hemorrhoids were found during retroflexion. The hemorrhoids were Grade II (internal hemorrhoids that prolapse but reduce spontaneously). Impression: - 12 1 to 2 mm polyps in the sigmoid colon, in the transverse colon, at the hepatic flexure, in the ascending colon and in the cecum, removed with a hot snare. Resected and retrieved. - Diverticulosis in the recto-sigmoid colon, in the sigmoid colon, in the descending colon and in the transverse colon. Clips were placed. Clip agronomist: [employer]. - Four colonic angiodysplastic lesions. Treated with a hot snare. - Non-bleeding internal hemorrhoids. Recommendation: - Repeat colonoscopy in 6 months for surveillance. - No aspirin, ibuprofen, naproxen, or other non-steroidal anti-inflammatory drugs for 4 weeks. - No aspirin, ibuprofen, naproxen, or other non-steroidal anti-inflammatory drugs for 4 weeks after polyp removal. Procedure Code(s): --- Professional --- 40218, 59, Colonoscopy, flexible; with control of bleeding, any method 19216, Colonoscopy, flexible; with removal of tumor(s), polyp(s), or other lesion(s) by snare technique CPT copyright 2021 [employer]. All rights reserved. The codes documented in this report are preliminary and upon elementary art teacher review may be revised to meet current compliance requirements. Lionel Lee DO 09/20/2023 4:17:22 PM This report has been signed electronically. Number of Addenda: 0 Note Initiated On: 09/20/2023 3:21 PM
--- NOTE | 2023-09-20 16:17 | OP.CCLET_ITS ---
09/20/2023 Shoshana Ulrich [place] [id number] [address] Re : Colonoscopy procedure for Dorian Cramer Dear Dr. Ulrich This procedure was performed on Wednesday, September 20, 2023. My impressions and recommendations are as follows: Impressions : - 12 1 to 2 mm polyps in the sigmoid colon, in the transverse colon, at the hepatic flexure, in the ascending colon and in the cecum, removed with a hot snare. Resected and retrieved. - Diverticulosis in the recto-sigmoid colon, in the sigmoid colon, in the descending colon and in the transverse colon. Clips were placed. Clip traffic routing engineer: [email or web address]. - Four colonic angiodysplastic lesions. Treated with a hot snare. - Non-bleeding internal hemorrhoids. Recommendations : - Repeat colonoscopy in 6 months for surveillance. - No aspirin, ibuprofen, naproxen, or other non-steroidal anti-inflammatory drugs for 4 weeks. - No aspirin, ibuprofen, naproxen, or other non-steroidal anti-inflammatory drugs for 4 weeks after polyp removal. My findings are described in the full procedure note, which is enclosed. If I can be of further assistance, please feel free to contact me at . Sincerely, Lionel Lee, 09/20/2023 4:17:22 PM This report has been signed electronically.
[2023-09-20] MEDS: Gabapentin 100 MG Capsule PO (20:03)
[2023-09-21 00:17] VITALS: BP 94/50; PULSE 74; RESP 18; TEMP 36.4; O2SAT 95
[2023-09-21] MEDS: Acetaminophen 325 MG Tablet 650 MG PO (00:20)
[2023-09-21 06:00] VITALS: BMI 22.7
[2023-09-21 06:45] VITALS: BP 116/68; PULSE 69; RESP 18; TEMP 36.9; O2SAT 94
--- NOTE | 2023-09-21 06:46 | EX.PCM.PN.GI ---
Subjective Subjective Patient is doing very well. He underwent a colonoscopy yesterday and was discovered to have multiple sources for GI bleeding including multiple polyps, angiodysplasia and bleeding from diverticula. Objective Data Objective Data Vital Signs: Vital Signs Temp Pulse Resp BP Pulse Ox O2 Del Method 98.3 F 84 18 113/64 95 Room Air 09/21/23 08:42 09/21/23 14:38 09/21/23 14:38 09/21/23 14:38 09/21/23 14:38 09/21/23 14:38 Oxygen Delivery Method Room Air Weight: 150 lb 2.157 oz Body Mass Index (BMI) 22.7 Intake & Output: Intake and Output for Last 24 Hours 09/19/23 09/20/23 09/21/23 23:59 23:59 23:59 Intake Total 110 / 110 1918.5 / 1918.5 1235 / 1235 Balance 110 / 110 1918.5 / 1918.5 1235 / 1235 Lab / Micro Data 09/21/23 06:04 09/21/23 06:04 Labs: Laboratory Results - last 24 hr 09/19/23 08:45: Crossmatch See Detail 09/21/23 06:04: WBC 6.6, RBC 3.03 L, Hgb 9.4 L, Hct 29.6 L, MCV 97.7 H, MCH 31.0, MCHC 31.8 L, RDW Std Deviation 60.4 H, RDW Coeff of Beth 16.8 H, Plt Count 166, MPV 10.5, Immature Gran % (Auto) 0.300, Neut % (Auto) 76.7 H, Lymph % (Auto) 11.7 L, [place] % (Auto) 5.8, Eos % (Auto) 5.2 H, Baso % (Auto) 0.3, Absolute Neuts (auto) 5.1, Absolute Lymphs (auto) 0.77 L, Nucleated RBC % 0, Sodium 141, Potassium 4.2, Chloride 109 H, Carbon Dioxide 26.0, Anion Gap 6, BUN 19 H, Creatinine 1.19, Estim Creat Clear Calc 42.92, Est GFR (MDRD) Af Amer 75, Est GFR (MDRD) Non-Af 62, BUN/Creatinine Ratio 16.0, Glucose 91, Calcium 8.7 Micro: Microbiology 09/19/23 11:51 Stool Stool Lactoferrin - Final 09/19/23 11:51 Stool Enteric Bacteriology - Final 09/19/23 11:51 Stool Clostridioides difficile (PCR) - Final Physical Exam Const alert, oriented x3, no apparent distress, average body habitus, no limitations and well nourished Constitutional Narrative: Very pleasant, elderly, white male, sitting up in bed, nursing at bedside, patient appears comfortable, nontoxic General Appearance: cooperative, comfortable, well kempt and well developed Orientation / Consciousness: awake, oriented to person, oriented to place and oriented to time Exam Limitations: no limitations HEENT normocephalic, head/scalp atraumatic and moist oral mucous membranes HEENT Narrative: Dentition is poor, Mallampati is 2, no thrush, mild to moderate hearing loss Eyes PERRL and EOMs intact bilaterally Eyes Narrative: No scleral icterus, conjunctiva are slightly pale Neck no lymphadenopathy and supple Neck Narrative: Trachea midline, no thyroid enlargement Resp normal respiratory effort, no retractions, no use of accessory muscles and clear to auscultation bilaterally Resp Narrative: Diffusely diminished but clear Auscultation: Negative for rales, rhonchi or wheezes Cardio regular rate, regular rhythm, S1 normal heart sound, S2 normal heart sound, no murmurs, no rub, no gallops and no clicks GI normal to inspection, nondistended, normoactive bowel sounds, soft to palpation and non-tender Extremity no clubbing, cyanosis or edema Extremity Narrative: Pedal pulses are 2+ Skin no rashes or lesions noted, no wounds, skin turgor normal, no jaundice, no petechiae and no mottling Skin Narrative: Age and sun exposure related changes Neuro oriented x3, CN's II-XII intact bilaterally, moves all extremities and no focal motor deficits Speech: speech normal Psych affect normal Psych Narrative: Interacts appropriately, eye contact is good, very pleasant Assessment & Plan Assessment/Plan (1) GIB (gastrointestinal bleeding): (2) BRBPR (bright red blood per rectum): (3) Acute on chronic anemia: PLAN: Plan Lower GI bleed with bright red blood per rectum -Highly suspect lower GI bleed -Patient now n.p.o. preparing for EGD and colonoscopy later today -Continue IV fluids -Transfuse 1 unit packed red blood cell -Low suspicion of upper GI bleed with normal BUN to serum creatinine ratio -Patient has CT of the abdomen pelvis done which showed significant diverticulosis with no acute abnormality identified -GI is following-appreciate input Diarrhea -Suspect related to bleeding -Enteric panel and C. difficile are unremarkable -Continue to monitor Acute on chronic anemia -Secondary to the above -Continue to monitor hemoglobin with every 6 hours hemoglobin -Will transfuse 1 unit packed red blood cells as hemoglobin appears to now be stabilizing however is dropped into the mid to low 8 range -Baseline hemoglobin appears to be between 12 and 13 Charges/Coding Visit Charges Inpatient E&M: 81438 Subs Hosp L3
[2023-09-21] MEDS: Ipratropium/Albuterol Sulfate 3 ML AMPUL.NEB INHALATION ×2 (06:52→12:50)
[2023-09-21] MEDS: Budesonide Respules 0.5 MG/2 ML AMPUL.NEB. INHALATION (06:52)
[2023-09-21 06:53] VITALS: PULSE 71; RESP 17; O2SAT 96
[2023-09-21] MEDS: Lactated Ringers 1,000 ML 75 ML IV (06:59)
[2023-09-21 08:38] LABS: Absolute Lymphocyte Count 0.77 X10^3/uL (0.83-4.51); Absolute Neutrophil Count 5.1 X10^3/uL (2.0-7.7); Basophil# 0.02 X10^3/uL; Basophil% 0.3 % (0-1); Eosinophil# 0.34 X10^3/uL; Eosinophils% 5.2 % (0-5); Hematocrit 29.6 % (40-54); Hemoglobin 9.4 g/dL (13.0-16.5); Lymphocyte # 0.77 X10^3/ul (0.83-4.51); Lymphocyte % 11.7 % (19-41); Mean Corp Hgb Conc 31.8 g/dL (32-36); Mean Corpuscular Volume 97.7 fL (80-94); Mean Platelet Vol. 10.5 fl (6.2-12.0); Monocyte# 0.38 X10^3/uL; Monocyte% 5.8 % (0-10); NRBC Flagged by Analyzer 0 % (0-5); Neutrophil # 5.06 X10^3/uL (2.7-7.7); Neutrophil % 76.7 % (47-70); Platelet Count 166 K/mm3 (150-450); RBC Distribution Width CV 16.8 % (11.6-14.6); RBC Distribution Width SD 60.4 fl (35.1-43.9); Red Blood Count 3.03 M/mm3 (4.6-6.2); White Blood Count 6.6 K/mm3 (4.4-11.0)
[2023-09-21 08:42] VITALS: BP 104/65; PULSE 75; RESP 18; TEMP 36.8; O2SAT 96
[2023-09-21 09:36] LABS: Anion Gap 6 (5-15); BUN 19 mg/dL (7-18); Calcium,Total 8.7 mg/dL (8.5-10.1); Chloride 109 mmol/L (98-107); Creatinine, Serum 1.19 mg/dL (0.70-1.30); EST Glomerular Filtration Rate 62 mL/min (>60); Est Glom Filt Rate - Afr Amer 75 mL/min (>60); Estimated Creatinine Clearance 42.92 ml/min; Glucose 91 mg/dL (74-106); Potassium 4.2 mmol/L (3.5-5.1); Sodium Level 141 mmol/L (136-145)
[2023-09-21] MEDS: Pantoprazole Sodium 40 MG in 0.9% Normal Saline (100mL MB+) 100 ML 330 MG IV (10:47)
[2023-09-21] MEDS: Finasteride 5 MG Tablet PO (10:48)
[2023-09-21] MEDS: Tolterodine Tartrate 2 MG CAP.SA PO (10:48)
--- NOTE | 2023-09-21 12:45 | DS.PCM_ITS ---
Providers Date of Admission: 09/19/23 Date of Discharge: 09/21/23 Primary Care Physician: Dr. Shoshana Ulrich MD Consultations 09/19/23 13:51 Consult: Gastroenterology Routine Consulting Provider: [facility] Reason for Consult: GI bleed EMERGENT Consult: No MD Notified: Yes Date Notified: 09/19/23 Time Notified: 12:23 Method of Notification: ED Physician Initiated Reason For Visit: BRBPR Diagnosis Discharge Diagnosis (1) GIB (gastrointestinal bleeding): Status: Acute Code(s): K92.2 - Gastrointestinal hemorrhage, unspecified (2) BRBPR (bright red blood per rectum): Status: Acute Code(s): K62.5 - Hemorrhage of anus and rectum (3) Acute on chronic anemia: Status: Chronic Code(s): D64.9 - Anemia, unspecified Medications at Discharge Home Medications albuterol sulfate 90 mcg/actuation aerosol inhaler 1 puff inhalation Q4H PRN sob/wheezing 09/08/21 finasteride 5 mg tablet 5 mg PO DAILY 09/08/21 amlodipine 5 mg tablet 5 mg PO DAILY 07/02/22 gabapentin 100 mg capsule 100 mg PO QHS 10/27/22 oxycodone 5 mg capsule 5 mg PO Q6H PRN pain 3 days #10 caps 11/03/22 artifi.tears(hypromellose)(PF) 1.7 % eye drops with applicator 1 drp EACH EYE DAILY PRN dry eyes 09/19/23 budesonide 160 mcg-glycopyr 9 mcg-formot 4.8 mcg/actuation HFA inhaler (Breztri Aerosphere) 2 inh inhalation BID 09/19/23 nystatin 100,000 unit/gram topical cream 1 applic topical 4X/DAY PRN skin irritation 09/19/23 oxybutynin chloride 10 mg tablet,extended release 24 hr 10 mg PO DAILY 09/19/23 Hospital Course Operations None Procedures Blood transfusion and Colonoscopy Summary of Care Provided Minutes Spent on Discharge: 37 Hospital Course: DESMOND WINCHESTER, is a 88 M who presented to the emergency department [facility] on 09/19/2023 with bright red blood per rectum. He stated it started on the day of presentation. He reported when he woke up this morning he felt okay but had some pressure in his lower abdomen just below the umbilicus into the left. He stated after that he had a couple bouts of loose stool with blood noted that relieved the pressure. He denied any lightheadedness, dizziness, nausea, or vomiting. He does of diverticulosis and diverticulitis and remote history of GI bleeding but does not think he was admitted to the hospital at that time. He is not currently on anticoagulation but did complain of a headache last evening at which time he took 2 aspirin. Headache is resolved at this time. He indicated if he was not having blood in his stool he would not be in the emergency department. Vital signs on presentation showed temperature 96.9, heart rate was 90, blood pressure was 153/83, respiratory is 18 oxygen saturations are 99% on room air. CBC showed an anemia that is slightly worse than baseline at 10.9. Baseline appears to be between 11 and 12. Platelet count was normal and he had no leukocytosis. Coags were normal. His chemistry panel was overtly unremarkable with a chronic stable elevated BUN and creatinine and a normal ratio. Serum creatinine on presentation was 1.25 (baseline 1-1.3). His glucose was 109. LFTs were unremarkable. CT abdomen pelvis was done and showed diffuse diverticulosis in the sigmoid colon, stable adenoma of the right adrenal gland, stable bilateral renal cysts and round atelectasis in the right lower lobe. He was admitted to the medical floor and placed on IV Protonix 40 mg twice daily, serial hemoglobins were monitored and he was started with a bowel prep for colonoscopy. By the a.m. of 09/20/2023 his hemoglobin had dropped from his baseline of between 11 and 12-8.3 so we did give him 1 unit of blood. His blood counts did seem to stabilize in the mid to low 8 range. After 1 unit of blood his hemoglobin was up to 9.4 and corrected appropriately. 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 He also had several 1 to 2 mm polyps throughout his colon that were resected with hot snare. Repeat colonoscopy was recommended in 6 months and he is to avoid aspirin, ibuprofen, naproxen and other nonsteroidal anti- inflammatory drugs for 4 weeks. Patient was feeling well and tolerating a regu lar diet with a stable hemoglobin on 09/21/2023 and felt stable for discharge. Patient was discharged home in stable condition. No prescription changes were made. I have asked him to follow-up with his primary care physician within the next week and have a repeat CBC he also was schedule an appointment to follow-up with Dr. Lee per his discharge instructions. Discharge diagnoses: Lower GI bleed secondary to diverticular bleed and angiodysplastic lesions Acute on chronic anemia Diarrhea-resolved CKD stage II Hypertension BPH with obstruction Urinary retention COPD Chronic pain JASMIN Tobacco abuse Physical Exam Const alert, oriented x3, no apparent distress, average body habitus, no limitations and well nourished Constitutional Narrative: Very pleasant, elderly, white male, sitting up in bed, nursing at bedside, patient appears comfortable, nontoxic General Appearance: cooperative, comfortable, well kempt and well developed Orientation / Consciousness: awake, oriented to person, oriented to place and oriented to time Exam Limitations: no limitations HEENT normocephalic, head/scalp atraumatic and moist oral mucous membranes HEENT Narrative: Dentition is poor, Mallampati is 2, no thrush, mild to moderate hearing loss Eyes PERRL and EOMs intact bilaterally Eyes Narrative: No scleral icterus, conjunctiva are slightly pale Neck no lymphadenopathy and supple Neck Narrative: Trachea midline, no thyroid enlargement Resp normal respiratory effort, no retractions, no use of accessory muscles and clear to auscultation bilaterally Resp Narrative: Diffusely diminished but clear Auscultation: Negative for rales, rhonchi or wheezes Cardio regular rate, regular rhythm, S1 normal heart sound, S2 normal heart sound, no murmurs, no rub, no gallops and no clicks GI normal to inspection, nondistended, normoactive bowel sounds, soft to palpation and non-tender Extremity no clubbing, cyanosis or edema Extremity Narrative: Pedal pulses are 2+ Skin no rashes or lesions noted, no wounds, skin turgor normal, no jaundice, no petechiae and no mottling Skin Narrative: Age and sun exposure related changes Neuro oriented x3, CN's II-XII intact bilaterally, moves all extremities and no focal motor deficits Speech: speech normal Psych affect normal Psych Narrative: Interacts appropriately, eye contact is good, very pleasant Weight / BMI Weight Weight: 68.1 kg Body Mass Index (BMI) 22.7 ABG / Lab / Microbiology Data 09/21/23 06:04 09/21/23 06:04 Laboratory: Laboratory Results - last 24 hr 09/19/23 08:45: Crossmatch See Detail 09/21/23 06:04: WBC 6.6, RBC 3.03 L, Hgb 9.4 L, Hct 29.6 L, MCV 97.7 H, MCH 31.0, MCHC 31.8 L, RDW Std Deviation 60.4 H, RDW Coeff of Beth 16.8 H, Plt Count 166, MPV 10.5, Immature Gran % (Auto) 0.300, Neut % (Auto) 76.7 H, Lymph % (Auto) 11.7 L, [place] % (Auto) 5.8, Eos % (Auto) 5.2 H, Baso % (Auto) 0.3, Absolute Neuts (auto) 5.1, Absolute Lymphs (auto) 0.77 L, Nucleated RBC % 0, Sodium 141, Potassium 4.2, Chloride 109 H, Carbon Dioxide 26.0, Anion Gap 6, BUN 19 H, Creatinine 1.19, Estim Creat Clear Calc 42.92, Est GFR (MDRD) Af Amer 75, Est GFR (MDRD) Non-Af 62, BUN/Creatinine Ratio 16.0, Glucose 91, Calcium 8.7 Microbiology: Microbiology 09/19/23 11:51 Stool Stool Lactoferrin - Final 09/19/23 11:51 Stool Enteric Bacteriology - Final 09/19/23 11:51 Stool Clostridioides difficile (PCR) - Final D/C Instructions Discharge Diet: Low fat / Low cholesterol Discharge Activity: Return to Normal Activity Meaningful Use Info Meaningful Use Meaningful Use Diagnoses (Choose all that apply): None applicable Ischemic Stroke Statin Dosing Therapy Reference: STATIN DOSE THERAPY REFERENCE: * Patients > 75 years receive moderate or high dose statin therapy. * Patients 75 years or YOUNGER should receive HIGH intensity statin dose unless contraindicated. You will be required to document reason for non-treatment if statin daily dose does not meet guidelines. HIGH DOSE STATIN THERAPY DAILY Atorvastatin > than or = to 40 mg Rosuvastatin > than or = to 20 mg Amlodipine + Atorvastatin > than or = to 2.5/40 mg Ezetimibe + Simvastatin 10/80 mg Simvastatin 80mg Discharge Plan Admission Admit Date/Time: 09/19/23 12:21 Primary Reason for Your Visit: Rectal Bleeding Attending Provider: Rosemary Fernandez Primary Care Provider: Shoshana Ulrich Instructions Additional Instructions / Restrictions: 1. You were found to have a diverticular bleed that was clipped in 4 angiodysplastic lesions which are small areas of blood vessels that are oozing blood and those were cauterized. Your blood counts have improved and were stable at 9.4 at the time of discharge 2. Please call your primary care physician and ask that a complete blood count or CBC is done within the next 7 to 10 days to recheck your blood counts. 3. Avoid aspirin, ibuprofen, naproxen and other nonsteroidal anti-inflammatory drugs for 4 weeks Discharge Orders/Prescriptions Prescriptions: Continued amlodipine 5 mg tablet 5 mg PO DAILY albuterol sulfate 90 mcg/actuation HFA aerosol inhaler 1 puff INHALATION Q4H PRN (Reason: sob/wheezing) finasteride 5 mg tablet 5 mg PO DAILY gabapentin 100 mg capsule 100 mg PO QHS oxycodone 5 mg capsule 5 mg PO Q6H PRN (Reason: pain) 3 Days Qty: 10 0RF nystatin 100,000 unit/gram cream 1 applic topical 4X/DAY PRN (Reason: skin irritation) Breztri Aerosphere 160-9-4.8 mcg/actuation HFA aerosol inhaler 2 inh INHALATION BID oxybutynin chloride 10 mg tablet extended release 24hr 10 mg PO DAILY artifi.tears(hypromellose)(PF) 1.7 % drops with applicator 1 drp EACH EYE DAILY PRN (Reason: dry eyes) Referrals / Follow Up: Shoshana Ulrich MD [Primary Care Provider] - Within 1 Week Disposition Disposition (needs filled in before D/C Order can be placed): Home, Self Care Charges/Coding Visit Charges Inpatient E&M: 04624 Disch Hosp >30min
[2023-09-21 12:52] VITALS: PULSE 70; RESP 17
--- NOTE | 2023-09-21 13:32 | PHA.DC.MR.R ---
Pharmacy [facility] Med Reconciliation Pharmacy Service has performed discharge medication reconciliation for this patient. The patient's discharge medication list was reviewed for discrepancies and discrepancies were resolved. Medications at Discharge Home Medications albuterol sulfate 90 mcg/actuation aerosol inhaler 1 puff inhalation Q4H PRN sob/wheezing 09/08/21 finasteride 5 mg tablet 5 mg PO DAILY 09/08/21 amlodipine 5 mg tablet 5 mg PO DAILY 07/02/22 gabapentin 100 mg capsule 100 mg PO QHS 10/27/22 oxycodone 5 mg capsule 5 mg PO Q6H PRN pain 3 days #10 caps 11/03/22 artifi.tears(hypromellose)(PF) 1.7 % eye drops with applicator 1 drp EACH EYE DAILY PRN dry eyes 09/19/23 budesonide 160 mcg-glycopyr 9 mcg-formot 4.8 mcg/actuation HFA inhaler (Breztri Aerosphere) 2 inh inhalation BID 09/19/23 nystatin 100,000 unit/gram topical cream 1 applic topical 4X/DAY PRN skin irritation 09/19/23 oxybutynin chloride 10 mg tablet,extended release 24 hr 10 mg PO DAILY 09/19/23
[2023-09-21 14:38] VITALS: BP 113/64; PULSE 84; RESP 18; O2SAT 95
== END 2023-09-21 14:43 | disposition home or self-care (01) | DRG 378 ==
LOC: ED 09:09 → MS3 12:42
PROVIDERS: Internal Medicine Gastroenterology; Admitting Provider Internal Medicine; Emergency Provider Student in an Organized Health Care Education/Training Program; PCP Family Medicine; Visit Provider Internal Medicine
PROC: 0DJD8ZZ Inspection of Lower Intestinal Tract, Via Natural or Artificial Opening Endoscopic (ICD-10-PCS; CPT 45378; principal; 2023-09-20 14:55)
DX: K55.21 Angiodysplasia of colon with hemorrhage (principal); D62 Acute posthemorrhagic anemia; N13.8 Other obstructive and reflux uropathy; K57.31 Diverticulosis of large intestine without perforation or abscess with bleeding; J43.9 Emphysema, unspecified; I12.9 Hypertensive chronic kidney disease with stage 1 through stage 4 chronic kidney disease, or unspecified chronic kidney disease; K63.5 Polyp of colon; N18.2 Chronic kidney disease, stage 2 (mild); G47.33 Obstructive sleep apnea (adult) (pediatric); K64.1 Second degree hemorrhoids; R19.7 Diarrhea, unspecified; F17.210 Nicotine dependence, cigarettes, uncomplicated; N40.1 Benign prostatic hyperplasia with lower urinary tract symptoms; R33.8 Other retention of urine; Z66 Do not resuscitate; G89.29 Other chronic pain; N28.1 Cyst of kidney, acquired; D35.01 Benign neoplasm of right adrenal gland
CPT/HCPCS: 36415; 74177; 80048; 80053; 83630; 83735; 84100; 84443; 85014; 85018; 85025; 85610; 86850; 86900; 86901; 86920; 87177; 87209; 87493; 87506; 88305; 93005; 94640; 94668; 99284; 99406; J7040; J7120; P9016; Q9967; A4216; J2405

== ENCOUNTER → 2023-09-23 | Outpatient (CLI) | payer MEDICARE, SELFPAY ==
[2023-09-23 17:38] LABS: Absolute Lymphocyte Count 0.82 X10^3/uL (0.83-4.51); Absolute Neutrophil Count 5.5 X10^3/uL (2.0-7.7); Basophil# 0.03 X10^3/uL; Basophil% 0.4 % (0-1); Eosinophil# 0.22 X10^3/uL; Eosinophils% 3.2 % (0-5); Hematocrit 29.1 % (40-54); Hemoglobin 9.2 g/dL (13.0-16.5); Lymphocyte # 0.82 X10^3/ul (0.83-4.51); Lymphocyte % 11.8 % (19-41); Mean Corp Hgb Conc 31.6 g/dL (32-36); Mean Corpuscular Hgb 31.5 pg (27.0-32.0); Mean Corpuscular Volume 99.7 fL (80-94); Mean Platelet Vol. 10.4 fl (6.2-12.0); Monocyte# 0.31 X10^3/uL; Monocyte% 4.5 % (0-10); NRBC Flagged by Analyzer 0 % (0-5); Neutrophil # 5.52 X10^3/uL (2.7-7.7); Neutrophil % 79.8 % (47-70); Platelet Count 206 K/mm3 (150-450); RBC Distribution Width SD 58.7 fl (35.1-43.9); RET-HE 29.8 pg (30-35); Red Blood Count 2.92 M/mm3 (4.6-6.2); Reticulocyte Count 1.52 % (0.5-1.5); White Blood Count 6.9 K/mm3 (4.4-11.0)
[2023-09-23 18:07] LABS: Anion Gap 7 (5-15); BUN 26 mg/dL (7-18); BUN/Creat Ratio 17.8 RATIO (10-20); Calcium,Total 8.7 mg/dL (8.5-10.1); Chloride 107 mmol/L (98-107); Creatinine, Serum 1.46 mg/dL (0.70-1.30); EST Glomerular Filtration Rate 49 mL/min (>60); Est Glom Filt Rate - Afr Amer 59 mL/min (>60); Ferritin 77 ng/mL (26-388); Glucose 195 mg/dL (74-106); Potassium 4.2 mmol/L (3.5-5.1); Sodium Level 139 mmol/L (136-145)
== END | disposition home or self-care (01) ==
LOC: BFHLAB 14:53
PROVIDERS: PCP Family Medicine; Referring Provider Family Medicine; Visit Provider Family Medicine
DX: K92.2 Gastrointestinal hemorrhage, unspecified (principal)
CPT/HCPCS: 36415; 80048; 82728; 85025; 85045

== ENCOUNTER → 2023-10-17 | Outpatient (CLI) | payer MEDICARE, SELFPAY ==
--- NOTE | 2023-10-17 12:23 | NEURO_ITS ---
NCS and/or EMG Patient Report Ordering Doctor: Shoshana Ulrich DATE OF SERVICE: 10/17/23 Clinical Summary: 88 year old male patient with symptoms of pain in the left foot that radiates up into the ramesh/calf regions. Nerve Conduction Studies Summary: The left peroneal-EDB CMAP amplitude was reduced diffusely. The left peroneal motor conduction velocity was reduced diffusely. The left tibial and peroneal F- wave onset latencies were prolonged. Nerve conduction studies were normal. Needle Examination Summary: Needle examination of select muscles of the left lower extremity demonstrated a higher proportion of motor unit action potentials with reduced recruitment, increased amplitude, increased duration, and polyphasia in the L5 to S1 myotomes. 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
== END | disposition home or self-care (01) ==
LOC: PSN 09:52
PROVIDERS: PCP Family Medicine; Referring Provider Family Medicine; Visit Provider Family Medicine
DX: G62.9 Polyneuropathy, unspecified (principal); R20.0 Anesthesia of skin
CPT/HCPCS: 95886; 95909

== ENCOUNTER → 2024-01-06 | Outpatient (CLI) | payer MEDICARE, SELFPAY ==
[2024-01-06 17:53] LABS: Absolute Lymphocyte Count 1.03 X10^3/uL (0.83-4.51); Absolute Neutrophil Count 3.7 X10^3/uL (2.0-7.7); Basophil# 0.06 X10^3/uL; Basophil% 1.1 % (0-1); Eosinophil# 0.33 X10^3/uL; Eosinophils% 5.9 % (0-5); Hemoglobin 10.6 g/dL (13.0-16.5); Lymphocyte # 1.03 X10^3/ul (0.83-4.51); Lymphocyte % 18.6 % (19-41); Mean Corp Hgb Conc 31.2 g/dL (32-36); Mean Corpuscular Hgb 27.7 pg (27.0-32.0); Monocyte# 0.41 X10^3/uL; Monocyte% 7.4 % (0-10); NRBC Flagged by Analyzer 0 % (0-5); Neutrophil % 66.6 % (47-70); Platelet Count 258 K/mm3 (150-450); RBC Distribution Width CV 15.6 % (11.6-14.6); RBC Distribution Width SD 51.5 fl (35.1-43.9); Red Blood Count 3.82 M/mm3 (4.6-6.2); White Blood Count 5.6 K/mm3 (4.4-11.0)
[2024-01-06 18:15] LABS: ALB/GLOB Ratio 0.9 RATIO (0.9-2.4); AST(SGOT) 18 U/L (15-37); Alanine Aminotransfer ALT/SGPT 19 U/L (16-61); Albumin, Serum 3.3 g/dL (3.2-5.0); Alkaline Phosphatase 80 U/L (45-117); Anion Gap 9 (5-15); BUN 26 mg/dL (7-18); BUN/Creat Ratio 19.3 RATIO (10-20); Calcium,Total 8.9 mg/dL (8.5-10.1); Chloride 109 mmol/L (98-107); Creatinine, Serum 1.35 mg/dL (0.70-1.30); EST Glomerular Filtration Rate 53 mL/min (>60); Est Glom Filt Rate - Afr Amer 64 mL/min (>60); Ferritin 26 ng/mL (26-388); Globulin 3.6 g/dL (2.2-4.2); Glucose 121 mg/dL (74-106); Iron Binding Capacity,Total 313 ug/dL (250-450); Potassium 4.2 mmol/L (3.5-5.1); Protein, Total 6.9 g/dL (6.4-8.2); Sodium Level 142 mmol/L (136-145)
== END | disposition home or self-care (01) ==
LOC: MTLAB 15:43
PROVIDERS: PCP Family Medicine; Referring Provider Family Medicine; Visit Provider Family Medicine
DX: N18.31 Chronic kidney disease, stage 3a (principal); K92.2 Gastrointestinal hemorrhage, unspecified
CPT/HCPCS: 36415; 80053; 82728; 83550; 85025

== ENCOUNTER → 2024-02-13 | Outpatient (CLI) | payer MEDICARE, SELFPAY ==
[2024-02-13 14:52] LABS: Hematocrit 37.2 % (40-54); Hemoglobin 11.8 g/dL (13.0-16.5); Mean Corp Hgb Conc 31.7 g/dL (32-36); Mean Corpuscular Hgb 28.1 pg (27.0-32.0); Mean Corpuscular Volume 88.6 fL (80-94); Mean Platelet Vol. 9.6 fl (6.2-12.0); Platelet Count 190 K/mm3 (150-450); RBC Distribution Width CV 17.7 % (11.6-14.6); RBC Distribution Width SD 56.3 fl (35.1-43.9); White Blood Count 6.5 K/mm3 (4.4-11.0)
[2024-02-13 15:14] LABS: Anion Gap 5 (5-15); BUN 39 mg/dL (7-18); BUN/Creat Ratio 28.3 RATIO (10-20); Chloride 105 mmol/L (98-107); Creatinine, Serum 1.38 mg/dL (0.70-1.30); EST Glomerular Filtration Rate 52 mL/min (>60); Est Glom Filt Rate - Afr Amer 63 mL/min (>60); Glucose 109 mg/dL (74-106); Potassium 4.7 mmol/L (3.5-5.1); Sodium Level 139 mmol/L (136-145)
== END | disposition home or self-care (01) ==
PROVIDERS: PCP Family Medicine; Referring Provider Otolaryngology; Visit Provider Otolaryngology
DX: Z01.812 Encounter for preprocedural laboratory examination (principal); I10 Essential (primary) hypertension
CPT/HCPCS: 36415; 80048; 85027

== ENCOUNTER → 2024-04-17 | Outpatient (CLI) | payer MEDICARE, SELFPAY ==
[2024-04-17 18:04] LABS: Absolute Lymphocyte Count 0.83 X10^3/uL (0.83-4.51); Absolute Neutrophil Count 4.1 X10^3/uL (2.0-7.7); Basophil# 0.04 X10^3/uL; Basophil% 0.7 % (0-1); Eosinophil# 0.13 X10^3/uL; Eosinophils% 2.3 % (0-5); Hematocrit 38.2 % (40-54); Lymphocyte # 0.83 X10^3/ul (0.83-4.51); Lymphocyte % 14.9 % (19-41); Mean Corp Hgb Conc 31.4 g/dL (32-36); Mean Corpuscular Hgb 30.4 pg (27.0-32.0); Mean Corpuscular Volume 96.7 fL (80-94); Mean Platelet Vol. 10.8 fl (6.2-12.0); Monocyte# 0.47 X10^3/uL; Monocyte% 8.5 % (0-10); NRBC Flagged by Analyzer 0 % (0-5); Neutrophil # 4.06 X10^3/uL (2.7-7.7); Neutrophil % 73.1 % (47-70); POSITIVE MORPHOLOGY YES; Platelet Count 206 K/mm3 (150-450); RBC Distribution Width CV 19.1 % (11.6-14.6); RBC Distribution Width SD 68.1 fl (35.1-43.9); Red Blood Count 3.95 M/mm3 (4.6-6.2); White Blood Count 5.6 K/mm3 (4.4-11.0)
[2024-04-17 18:08] LABS: Differential Indicated SCAN CRITERIA MET
[2024-04-17 18:52] LABS: ALB/GLOB Ratio 1.1 RATIO (0.9-2.4); AST(SGOT) 18 U/L (15-37); Alanine Aminotransfer ALT/SGPT 19 U/L (16-61); Albumin, Serum 3.6 g/dL (3.2-5.0); Alkaline Phosphatase 73 U/L (45-117); Anion Gap 7 (5-15); BUN 25 mg/dL (7-18); Calcium,Total 8.8 mg/dL (8.5-10.1); Chloride 108 mmol/L (98-107); Creatinine, Serum 1.25 mg/dL (0.70-1.30); EST Glomerular Filtration Rate 58 mL/min (>60); Est Glom Filt Rate - Afr Amer 70 mL/min (>60); Ferritin 44 ng/mL (26-388); Globulin 3.4 g/dL (2.2-4.2); Glucose 92 mg/dL (74-106); Iron 46 ug/dL (65-175); Iron Binding Capacity,Total 311 ug/dL (250-450); PERCENT IRON SATURATION 14.8 % (15.0-55.0); Potassium 3.9 mmol/L (3.5-5.1); Sodium Level 139 mmol/L (136-145)
[2024-04-17 19:14] LABS: Anisocytosis 1+; Platelet Morphology LARGE
== END | disposition home or self-care (01) ==
LOC: BFHLAB 16:09
PROVIDERS: PCP Family Medicine; Referring Provider Family Medicine; Visit Provider Family Medicine
DX: N18.31 Chronic kidney disease, stage 3a (principal); K92.2 Gastrointestinal hemorrhage, unspecified
CPT/HCPCS: 36415; 80053; 82728; 83540; 83550; 85025

== ENCOUNTER 2024-05-26 11:51 | Emergency (ER) | payer MEDICARE, SELFPAY ==
[2024-05-26 11:52] VITALS: BP 140/80; PULSE 85; RESP 18; TEMP 35.9; O2SAT 98; BMI 23.1
--- NOTE | 2024-05-26 12:01 | RAD_ITS ---
INDICATION: pain EXAMINATION/TECHNIQUE: X-RAY - LEFT XR Shoulder Min 2 Views 4 VIEWS COMPARISON: Chest radiograph dated July 21, 2023 FINDINGS: SOFT TISSUES: No soft tissue swelling or gas. There are vascular calcifications. No radiopaque foreign body. BONES/JOINTS: No acute fracture or subluxation.. Normal alignment. There are degenerative changes of the acromioclavicular joint. No sclerotic or destructive changes observed. There are epidural stimulator leads terminating within the expected region of the mid thoracic spinal canal. RAD/Shoulder min 2 Views IMPRESSION: Degenerative changes of the acromioclavicular joint. Electronically Signed: Regina Steiner MD at 13:11 EST ,
--- NOTE | 2024-05-26 12:01 | EX.ED.UPPERE ---
HPI <AARON Benítez - Last Filed: 05/26/24 13:27> History of Present Illness Chief Complaint: Upper Extremity Injury Narrative Narrative: 88-year-old male slipped in his kitchen 2 days ago hitting his left shoulder on the ground. No head injury or LOC. He has had shoulder pain since then prompting him to come in. He has bruising on the elbow but denies pain in the elbow or rest of the arm. No weakness or numbness or tingling. He is not on blood thinners. 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 Prostate disease Restless legs Shortness of breath on exertion Shoulder pain Smoker Wears glasses Wears hearing aid in both ears Home Medications ?Medication ?Instructions ?Recorded ?Last Taken ?Type albuterol sulfate 90 mcg/actuation 1 puff inhalation Q4H PRN 09/08/21 Unknown History aerosol inhaler sob/wheezing amlodipine 5 mg tablet 5 mg PO DAILY 07/02/22 09/18/23 History oxycodone 5 mg capsule 5 mg PO Q6H PRN pain 3 days #10 11/03/22 09/18/23 Rx caps artifi.tears(hypromellose)(PF) 1.7 1 drp EACH EYE DAILY PRN dry eyes 09/19/23 Unknown History % eye drops with applicator nystatin 100,000 unit/gram topical 1 applic topical 4X/DAY PRN skin 09/19/23 Unknown History cream irritation oxybutynin chloride 10 mg 10 mg PO DAILY 09/19/23 Unknown History tablet,extended release 24 hr simethicone 80 mg chewable tablet 80 mg PO BID-QID PRN abdominal 12/06/23 Unknown Rx (Gas Relief (simethicone)) distention and gas #120 tabs Allergy/AdvReac Type Severity Reaction Status Date / Time ibuprofen (From Motrin) Allergy Swelling Verified 05/26/24 11:55 Surgical History History of cystoscopy History of esophagogastroduodenoscopy (EGD) History of hand surgery History of parotidectomy History of varicose vein stripping Hx of basal cell carcinoma excision Hx of decompressive lumbar laminectomy Hx of finger joint replacement Hx of myringotomy S/P insertion of spinal cord stimulator Social History household members: spouse housing: house Smoking Status: Current every day smoker tobacco type: cigarettes alcohol intake: former substance use type: does not use ROS <AARON Benítez - Last Filed: 05/26/24 13:27> ROS ED ROS Narrative CVS: Negative for chest pain. Respiratory: Negative for shortness of breath. Skin: Negative for wounds or abrasions. Musc: Positive for left shoulder pain, trauma. EXAM <AARON Benítez - Last Filed: 05/26/24 13:27> Physical Exam Narrative Exam Narrative: CONST: Patient sitting in no acute distress. EYES: Normal inspection. HEAD: Head normocephalic atraumatic. NECK: Normal inspection. RESP: No respiratory distress, CTAB. No chest wall tenderness. CVS: Regular rate and rhythm, no murmur, no gallop. Back: Normal inspection, no midline tenderness. SKIN: Color normal, no rash, warm, dry, intact. EXTREMITIES: Normal appearance of upper and lower extremities. Shortness appear symmetric. Tender over anterior lateral shoulder without deformity or crepitus. No tenderness of the rest of the humerus elbow forearm wrist or hand. He can range his shoulder above 90 degrees with some pain. 5/5 strength, normal sensation, 2+ radial pulses. No tenderness of lower extremities, 2+ DP pulses. Normal gait. NEURO: Alert and answering questions appropriately. PSYCH: Normal affect. Const Vital Signs: 05/26/24 11:52 Temperature 96.6 F L Temperature Source Temporal Pulse Rate 85 Respiratory Rate 18 Blood Pressure 140/80 H Blood Pressure Mean 100 Pulse Ox 98 Oxygen Delivery Method Room Air MDM <AARON Benítez - Last Filed: 05/26/24 13:27> MDM MDM Narrative Medical decision making narrative: 88-year-old male had a mechanical fall injuring his left shoulder. No head injury. He is awake and alert with stable vital signs. He is tender over the left shoulder and neurovascularly intact. No other injuries noted. X-ray of the shoulder is negative. Patient was counseled to use ice, Tylenol, and follow-up with his orthopedist if pain persist. He was discharged in stable condition. Differential includes shoulder contusion, fracture, dislocation, rotator cuff injury ED attending interpretation of the left shoulder shows no fracture or dislocation. <Dr. Santana Sandoval, DO - Last Filed: 05/26/24 13:22> [facility] Treatment and Re-Evaluation Narrative: I have personally performed a face to face assessment of the patient and have reviewed the CATE Note. I performed a substantive portion of the visit including all aspects of the following. My luther findings include: History: Patient presents with left shoulder pain that began after a fall 2 days ago. Patient states he hit his left shoulder. Patient states his pain is worse with movement. Patient describes it as aching. Patient denies any paresthesias or weakness. Patient denies any head injury or loss of consciousness. Patient denies any other injuries. Exam: Vital signs are stable. Patient is afebrile. Patient is in no acute distress. Musculoskeletal exam reveals tenderness with mild ecchymosis over the anterior lateral aspect of the left proximal humerus. There is no deformity noted. Range of motion was slightly limited in all motions of the left shoulder secondary to pain. Strength is 5/5 in the radial, median, and ulnar areas. Sensation was intact to light touch in the radial, median, ulnar, and axillary areas. Radial pulses are equal bilaterally. Medical Decision Making: Differential diagnosis includes contusion, fracture, and sprain. X-rays of the left shoulder will be obtained to assess for fracture and dislocation. X-rays of the left shoulder were obtained. There are 4 views. On my independent interpretation, there is no acute fracture or dislocation noted. There are some mild degenerative changes noted. Radiologist also interpreted the x-rays and agrees. Patient was instructed to do range of motion exercises. Patient was instructed to use ice to the area. Patient was instructed to take Tylenol or ibuprofen as needed for pain. Patient was instructed to return if worse in any way. Patient understood and was agreeable with the plan. All questions were answered. Discharge Plan Triage Chief Complaint: Upper Extremity Injury ED Midlevel Provider: Manju Zhong ED Provider: Schwiger,Santana Dx/Rx/DC Orders Clinical Impression: Fall, Contusion of left shoulder Instructions: Bruises (Contusions) Prescriptions: No Action amlodipine 5 mg tablet 5 mg PO DAILY simethicone [Gas Relief (simethicone)] 80 mg tablet,chewable 80 mg PO BID-QID PRN (Reason: abdominal distention and gas) Qty: 120 1RF albuterol sulfate 90 mcg/actuation HFA aerosol inhaler 1 puff INHALATION Q4H PRN (Reason: sob/wheezing) oxycodone 5 mg capsule 5 mg PO Q6H PRN (Reason: pain) 3 Days Qty: 10 0RF nystatin 100,000 unit/gram cream 1 applic topical 4X/DAY PRN (Reason: skin irritation) oxybutynin chloride 10 mg tablet extended release 24hr 10 mg PO DAILY artifi.tears(hypromellose)(PF) 1.7 % drops with applicator 1 drp EACH EYE DAILY PRN (Reason: dry eyes) Primary Care Provider: Shoshana Ulrich Referrals: Shoshana Ulrich MD [Primary Care Provider] - Jose Alejandro Neal MD [Med Staff - Active Staff] - Activity Restrictions/Additional Instructions: I recommend Tylenol and ice as needed. If pain continues follow-up with your orthopedic doctor. Print Language: Sri Lankan Disposition Disposition: Home, Self Care Discharge Date/Time: 05/26/24 13:25
[2024-05-26 13:22] VITALS: BP 140/80; PULSE 85; RESP 18; TEMP 36.6; O2SAT 99
== END 2024-05-26 13:25 | disposition home or self-care (01) ==
PROVIDERS: Emergency Provider Emergency Medicine; PCP Family Medicine; Visit Provider Emergency Medicine
DX: S40.012A Contusion of left shoulder, initial encounter (principal); W01.0XXA Fall on same level from slipping, tripping and stumbling without subsequent striking against object, initial encounter; Y92.000 Kitchen of unspecified non-institutional (private) residence as the place of occurrence of the external cause; I10 Essential (primary) hypertension; F17.210 Nicotine dependence, cigarettes, uncomplicated; Z79.899 Other long term (current) drug therapy
CPT/HCPCS: 73030; 99282

== ENCOUNTER 2024-06-20 16:04 | Emergency (ER) | payer MEDICARE, SELFPAY ==
[2024-06-20 16:05] VITALS: BP 160/91; PULSE 71; RESP 16; TEMP 36.4; O2SAT 99; BMI 23.2
--- NOTE | 2024-06-20 19:10 | EDS_ITS ---
HPI History of Present Illness Chief Complaint: Lower Extremity Injury Narrative Narrative: Chief complaint and HPI: Right lower extremity DVT. 89-year-old male with with past medical history of HTN, chronic back pain, and chronic anemia presents for evaluation of right lower extremity DVT. Patient states for the past several days he has had right lower extremity swelling. He denies any pain. Denies any fever, chills, chest pain, shortness of breath, abdominal pain. Patient states that he went and saw his summer nanny today who ordered bilateral venous Doppler ultrasounds to assess for DVT. Patient is positive for right lower extremity DVT and therefore was sent to the emergency department for treatment. Review of systems: See HPI Medications: As listed on the chart Allergies: As listed on the chart PFSH: Per chart Vital signs: As listed on the chart. Reviewed. Physical exam: Gen: A&O x3, NAD Head: Normocephalic, atraumatic Eyes: No sclera icterus, conjunctiva clear ENT: Moist mucous membranes Neck: Trachea midline, No JVD CV: RRR, no murmurs Resp: Lungs CTA BL, no w/r/c GI: Abd soft, non-distended, non-tender, no r/r/g Musc: Full ROM, no deformity, right lower extremity swollen compared to the left, left lower extremity without edema, femoral/DP/PT pulse plus 2 out of 4 bilaterally Skin: Warm, dry Neuro: Alert, oriented, grossly intact, sensation intact Psych: Cooperative, appropriate mood and affect [facility] Medical History Alcohol abuse Alcohol use Cancer CPAP (continuous positive airway pressure) dependence Emphysema, unspecified Enlarged prostate Heartburn Hemorrhoid History of echocardiogram History of edema Hx of gout Hypertension Hypertension Injury of back Lung disease 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 Prostate disease Restless legs Shortness of breath on exertion Shoulder pain Smoker Wears glasses Wears hearing aid in both ears Home Medications ?Medication ?Instructions ?Recorded ?Last Taken ?Type albuterol sulfate 90 mcg/actuation 1 puff inhalation Q 4H PRN 09/08/21 Unknown History aerosol inhaler sob/wheezing amlodipine 5 mg tablet 5 mg PO DAILY 07/02/2209/17 History oxycodone 5 mg capsule 5 mg PO Q6H PRN pain 3 days #10 11/03/22 09/18/23 Rx caps artifi.tears(hypromellose)(PF) 1.7 1 drp EACH EYE KENDALL Y PRN dry eyes 09/19/23 Unknown History % eye drops with applicator nystatin 100,000 unit/gram topical 1 applic topical 4X /DAY PRN skin 09/19/23 Unknown History cream irritation oxybutynin chloride 10 mg 10 mg PO DAILY 09/19/23 Unkn own History tablet,extended release 24 hr simethicone 80 mg chewable tablet 80 mg PO BID-QID PRN abdominal 12/06/23 Unknown Rx (Gas Relief (simethicone)) distention and gas #120 tab s apixaban 5 mg (74 tabs) tablets in See Rx Instructions PO .COMPLEX 06/20/24 Unknown Rx a dose pack (Eliquis DVT-PE Treat #74 tabs 30D Start) Allergy/AdvReac Type Severity Reaction Status Date / Time ibuprofen (From Motrin) Allergy Swelling Verified 06/20/24 16:07 Family History no significant family his Surgical History History of cystoscopy History of esophagogastroduodenoscopy (EGD) History of hand surgery History of parotidectomy History of varicose vein stripping Hx of basal cell carcinoma excision Hx of decompressive lumbar laminectomy Hx of finger joint replacement Hx of myringotomy S/P insertion of spinal cord stimulator Social History household members: spouse housing: house Smoking Status: Current every day smoker tobacco type: cigarettes alcohol intake: former substance use type: does not use EXAM Physical Exam Const Vital Signs: 06/20/24 16:05 06/20/24 19:29 06/20/24 19:30 Temperature 97.5 F L 98.1 F Temperature Source Oral Pulse Rate 71 82 82 Respiratory Rate 16 16 16 Blood Pressure 160/91 H 140/78 H 140/78 H Blood Pressure Mean 114 98 98 Pulse Ox 99 98 98 Oxygen Delivery Method Room Air Room Air MDM MDM MDM Narrative Medical decision making narrative: 89-year-old male with with past medical history of HTN, chronic back pain, and chronic anemia presents for evaluation of right lower extremity DVT. Venous duplex ultrasound shows acute deep venous thrombosis in the CFV, FV, Pop V, T/P trunk and gastroc vein. This is an extensive DVT. Patient will need anticoagulation. Patient does have a previous history of GI bleed due to diverticulosis but denies any upper GI bleed or PUD. No frequent falls. No other contraindications to anticoagulation. On chart review, patient has a history of chronic anemia. His last hemoglobin was 12 on 04/17. No history of thrombocytopenia on chart review. I do not think any laboratory workup is needed at this time. Patient will be given his first dose of Eliquis here in the emergency department and discharged home with a prescription for Eliquis. Patient educated to follow-up with PCP. He was given precautions with blood thinners. Given the extensiveness of his DVT, I did consult Dr. Mason with vascular surgery. He agrees with discharge home and anticoagulation. Follow-up with his office. Patient permed understand the plan. Return precautions explained. Impression: 1. Extensive right lower extremity DVT Discharge Plan Triage Chief Complaint: Lower Extremity Injury ED Provider: Marco Antonio Garay Dx/Rx/DC Orders Clinical Impression: Acute deep vein thrombosis (DVT) of right lower extremity Instructions: DVT Complications, DVT Dc, DVT Tx Prescriptions: New Eliquis DVT-PE Treat 30D Start 5 mg (74 tabs) tablets,dose pack See Rx Instructions .ROUTE .COMPLEX Qty: 74 0RF Rx Instructions: orally per package directions No Action amlodipine 5 mg tablet 5 mg PO DAILY simethicone [Gas Relief (simethicone)] 80 mg tablet,chewable 80 mg PO BID-QID PRN (Reason: abdominal distention and gas) Qty: 120 1RF albuterol sulfate 90 mcg/actuation HFA aerosol inhaler 1 puff INHALATION Q4H PRN (Reason: sob/wheezing) oxycodone 5 mg capsule 5 mg PO Q6H PRN (Reason: pain) 3 Days Qty: 10 0RF nystatin 100,000 unit/gram cream 1 applic topical 4X/DAY PRN (Reason: skin irritation) oxybutynin chloride 10 mg tablet extended release 24hr 10 mg PO DAILY artifi.tears(hypromellose)(PF) 1.7 % drops with applicator 1 drp EACH EYE DAILY PRN (Reason: dry eyes) Primary Care Provider: Shoshana Ulrich Referrals: Santana Mason MD [Med Staff - Active Staff] - 3-5 Days Shoshana Ulrich MD [Primary Care Provider] - 3-5 Days Activity Restrictions/Additional Instructions: You were given your first dose of Eliquis here in the emergency department. Take your next dose of Eliquis tomorrow morning. Monitor for signs and symptoms of bleeding. Blood thinners can increase spontaneous bleeding as well bleeding with falls. Follow-up with your primary care physician. Call them tomorrow and let them know that you had a DVT and was placed on Eliquis. Follow-up with vascular surgery. Return back to the ED if symptoms change or worsen. Print Language: Turkish Disposition Disposition: Home, Self Care Discharge Date/Time: 06/20/24 19:31
[2024-06-20] MEDS: APIXABAN 5 MG TABLET 10 MG PO (19:24)
[2024-06-20 19:29] VITALS: BP 140/78; PULSE 82; RESP 16; O2SAT 98
[2024-06-20 19:30] VITALS: BP 140/78; PULSE 82; RESP 16; TEMP 36.7; O2SAT 98
== END 2024-06-20 19:31 | disposition home or self-care (01) ==
PROVIDERS: Emergency Provider Surgery; PCP Family Medicine; Visit Provider Surgery
DX: I82.411 Acute embolism and thrombosis of right femoral vein (principal); I82.431 Acute embolism and thrombosis of right popliteal vein; I82.441 Acute embolism and thrombosis of right tibial vein; I82.451 Acute embolism and thrombosis of right peroneal vein; I82.461 Acute embolism and thrombosis of right calf muscular vein; I10 Essential (primary) hypertension; F17.210 Nicotine dependence, cigarettes, uncomplicated; Z79.899 Other long term (current) drug therapy
CPT/HCPCS: 99282; A4216

== ENCOUNTER → 2024-06-20 | Outpatient (CLI) | payer MEDICARE, SELFPAY ==
--- NOTE | 2024-06-20 15:27 | VDLE_ITS ---
Reason For Study: Right leg swelling RIGHT LEFT GSV is normal. GSV is normal. Acute deep vein thrombosis is noted in the CFV is compressible, spontaneous, phasic, CFV, FV,PopV, T/P Trunk and GastrocV. It is competent, and demonstrates normal dilated and NONCOMPRESSIBLE. augmentation. Thrombus filled varicose vein noted in the FV is compressible, spontaneous, phasic, right mid-distal thigh. competent and demonstrates normal PTV is compressible. augmentation. RT PerV is compressible. POP V is compressible, phasic, and Procedure INCOMPETENT for greater than 1.0 second. This is a venous duplex using B-mode, color T/P Trunk is compressible. flow and spectral Doppler. PTV is compressible. Exam performed in department. LT PerV is compressible. A preliminary report was called and/or faxed to [facility]. Patient taken to ER for treatment. VL/Venous Duplex US - Omar Extrem Interpretation Summary Acute deep vein thrombosis noted in the right common femoral vein, femoral vein , popliteal vein, tibioperoneal trunk vein, gastrocnemius vein. Thrombus filled varicose vein noted in the right mid-distal thigh. Deep veins of the left lower extremity are patent and compressible segmentally. There is no evidence of left lower extremity deep vein thrombosis. The bilateral great saphenous vei ns appear patent and compressible segmentally. Ordering Physician: Sai Salazar Referring Physician: Shoshana Ulrich Performed By: Em Martinez RVT
== END | disposition home or self-care (01) ==
LOC: CVS 14:59
PROVIDERS: PCP Family Medicine; Referring Provider Podiatrist; Visit Provider Podiatrist
DX: M79.661 Pain in right lower leg (principal); M79.662 Pain in left lower leg; R60.0 Localized edema
CPT/HCPCS: 93970

== ENCOUNTER → 2024-07-24 | Outpatient (CLI) | payer MEDICARE, SELFPAY ==
[2024-07-24 17:50] LABS: Absolute Lymphocyte Count 0.98 X10^3/uL (0.83-4.51); Absolute Neutrophil Count 5.8 X10^3/uL (2.0-7.7); Basophil# 0.04 X10^3/uL; Basophil% 0.5 % (0-1); Eosinophil# 0.17 X10^3/uL; Eosinophils% 2.2 % (0-5); Hematocrit 38.2 % (40-54); Hemoglobin 12.5 g/dL (13.0-16.5); Lymphocyte # 0.98 X10^3/ul (0.83-4.51); Lymphocyte % 12.7 % (19-41); Mean Corp Hgb Conc 32.7 g/dL (32-36); Mean Corpuscular Hgb 32.4 pg (27.0-32.0); Mean Platelet Vol. 10.7 fl (6.2-12.0); Monocyte# 0.59 X10^3/uL; Monocyte% 7.7 % (0-10); NRBC Flagged by Analyzer 0 % (0-5); Neutrophil # 5.83 X10^3/uL (2.7-7.7); Neutrophil % 75.7 % (47-70); Platelet Count 271 K/mm3 (150-450); Red Blood Count 3.86 M/mm3 (4.6-6.2); White Blood Count 7.7 K/mm3 (4.4-11.0)
[2024-07-24 20:10] LABS: ALB/GLOB Ratio 1.5 RATIO (0.9-2.4); AST(SGOT) 21 U/L (<=37); Alanine Aminotransfer ALT/SGPT 20 U/L (<=46); Albumin, Serum 4.2 g/dL (3.4-4.8); Alkaline Phosphatase 82 U/L (40-129); Anion Gap 11 (5-15); BUN 40 mg/dL (4-19); BUN/Creat Ratio 31.3 RATIO (10-20); Calcium,Total 9.3 mg/dL (7.6-11.0); Carbon Dioxide 24.2 mmol/L (21.0-32.0); Chloride 105 mmol/L (98-108); Creatinine, Serum 1.27 mg/dL (0.70-1.20); EST Glomerular Filtration Rate 55 (>60); Ferritin 81 ng/mL (37-417); Globulin 2.7 g/dL (2.2-4.2); Glucose 84 mg/dL (70-99); Iron 119 ug/dL (65-175); Iron Binding Capacity,Total 322 ug/dL (250-450); Iron Binding Capacity,Unsat 203 ug/dL (228-428); Potassium 4.8 mmol/L (3.3-5.1); Protein, Total 6.9 g/dL (5.9-8.4); Sodium Level 140 mmol/L (133-145); Total Bilirubin 0.61 mg/dL (0.00-1.30)
== END | disposition home or self-care (01) ==
LOC: BFHLAB 15:41
PROVIDERS: PCP Family Medicine; Visit Provider Family Medicine
DX: N18.31 Chronic kidney disease, stage 3a (principal); K92.2 Gastrointestinal hemorrhage, unspecified
CPT/HCPCS: 36415; 80053; 82728; 83540; 83550; 85025

== ENCOUNTER 2024-11-02 14:01 | Inpatient (IN) | payer MEDICARE, SELFPAY ==
[2024-11-02 14:01] VITALS: BP 141/86; PULSE 90; RESP 17; TEMP 36.6; O2SAT 98
[2024-11-02 14:03] VITALS: BMI 22.1
[2024-11-02] MEDS: 0.9% Normal Saline (1000mL) 1,000 ML 999 ML IV (15:43)
[2024-11-02] MEDS: Ondansetron 4 MG/2 ML Vial IV (15:44)
[2024-11-02] MEDS: Morphine 4 MG/ML Syringe IV (15:44)
--- NOTE | 2024-11-02 16:06 | EDS_ITS ---
HPI <AARON Benítez - Last Filed: 11/02/24 20:52> History of Present Illness Chief Complaint: Constipation Narrative Narrative: 89-year-old male with PMH of HTN, DVT on Eliquis presents with abdominal pain. Over the last 3 days he has had right lower abdominal pain and constipation. He noticed the area is swollen and bruised on his abdomen and denies trauma. He usually has a bowel movement daily so he thought the pain was from constipation and tried milk of magnesia and a fleets enema without improvement. He has no fever chills nausea or vomiting. He is still urinating normally. No abdominal surgical history. He states he had a colonoscopy a couple years ago which showed benign polyps. He has no history of bowel obstruction. He is on oxycodone 2-3 times daily for chronic back pain. 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 Wears glasses Wears hearing aid in both ears Cancer Alcohol abuse Hx of gout Heartburn CPAP (continuous positive airway pressure) dependence Shortness of breath on exertion Smoker Emphysema, unspecified Hypertension Restless legs Injury of back Home Medications ?Medication ?Instructions ?Recorded ?Last Taken ?Type albuterol sulfate 90 mcg/actuation 1 puff inhalation Q 4H PRN 09/08/21 Unknown History aerosol inhaler sob/wheezing amlodipine 5 mg tablet 5 mg PO DAILY 07/02/2209/17 History artifi.tears(hypromellose)(PF) 1.7 1 drp EACH EYE KENDALL Y PRN dry eyes 09/19/23 Unknown History % eye drops with applicator oxybutynin chloride 10 mg 10 mg PO DAILY 09/19/23 Unkn own History tablet,extended release 24 hr nystatin 100,000 unit/gram topical 1 applic topical QD AY PRN yeast 07/13/24 Unknown History powder apixaban 5 mg tablet (Eliquis) 5 mg PO BID #180 tabs 0 07/25/24 Unknown Rx oxycodone-acetaminophen 5 mg-325 1 tab PO TID PRN PRN pain 11/02/24 Unknown History mg tablet Allergy/AdvReac Type Severity Reaction Status Date / Time ibuprofen (From Motrin) Allergy Swelling Verified 11/02/24 15:49 Family History Mother , 61 Cancer Father , 91 AD (Alzheimer's disease) Surgical History History of hand surgery S/P insertion of spinal cord stimulator History of varicose vein stripping Hx of myringotomy History of parotidectomy History of esophagogastroduodenoscopy (EGD) History of cystoscopy Hx of basal cell carcinoma excision Hx of finger joint replacement Hx of decompressive lumbar laminectomy Social History household members: spouse and none housing: house current occupational status: retired pets and animals: Yes pets and animals: dog(s) Smoking Status: Current every day smoker tobacco type: cigarettes alcohol intake: current details: On avg a couple drinks each evening substance use type: does not use caffeine: Yes Type: coffee Number of servings: 2 do you feel safe at home: Yes ROS <AARON Benítez - Last Filed: 11/02/24 20:52> ROS ED ROS Narrative Constitutional: Negative for fever, chills, malaise. CVS: Negative for chest pain. Respiratory: Negative for shortness of breath. GI: Positive for abdominal pain, constipation. Negative for nausea, vomiting, melena, hematochezia. : Negative for dysuria. EXAM <AARON Benítez - Last Filed: 11/02/24 20:52> Physical Exam Narrative Exam Narrative: CONST: Patient sitting in no acute distress. EYES: Normal inspection. NECK: Normal inspection. RESP: No respiratory distress, CTAB. CVS: Regular rate and rhythm, no murmur, no gallop. ABD: Palpable tender mass right of the umbilicus with overlying bruising. The rest of his abdomen is soft and nontender. He also has bruising across the right lateral abdomen. No distention. No rigidity. SKIN: Color normal, no rash, warm, dry, intact. EXTREMITIES: Normal appearance, no pedal edema. NEURO: Alert and answering questions appropriately. PSYCH: Normal affect. Const Vital Signs: 11/03/24 08:25 11/03/24 08:25 11/03/24 08:26 Temperature Temperature Source Pulse Rate Pulse Strength Normal (2+) Respiratory Rate Respiratory Effort Normal Non-Labored Respiratory Depth Normal Respiratory Pattern Normal Blood Pressure Blood Pressure Mean Blood Pressure Source Blood Pressure Position Blood Pressure Location Pulse Ox 88 Oxygen Delivery Method Nasal Cannula Room Air Oxygen Flow Rate (L/min) 2 11/03/24 08:27 11/03/24 13:54 11/03/24 14:05 Temperature 97.9 F Temperature Source Oral Pulse Rate 61 Pulse Strength Respiratory Rate 18 Respiratory Effort Normal Non-Labored Respiratory Depth Normal Respiratory Pattern Normal Blood Pressure 107/68 Blood Pressure Mean 81 Blood Pressure Source Monitor Blood Pressure Position Sitting Blood Pressure Location Left Arm Pulse Ox 94 94 95 Oxygen Delivery Method Nasal Cannula Room Air Nasal Cannula Oxygen Flow Rate (L/min) 2 2 11/03/24 14:07 11/03/24 14:26 Temperature 98.4 F Temperature Source Oral Pulse Rate 67 Pulse Strength Respiratory Rate 18 Respiratory Effort Respiratory Depth Respiratory Pattern Blood Pressure 122/64 H Blood Pressure Mean 83 Blood Pressure Source Monitor Blood Pressure Position Semi-Fowlers Blood Pressure Location Left Arm Pulse Ox 94 Oxygen Delivery Method Room Air Room Air Oxygen Flow Rate (L/min) <Dr. Rand Rollins, DO - Last Filed: 11/04/24 07:35> Physical Exam Const Vital Signs: 11/03/24 08:25 11/03/24 08:25 11/03/24 08:26 Temperature Temperature Source Pulse Rate Pulse Strength Normal (2+) Respiratory Rate Respiratory Effort Normal Non-Labored Respiratory Depth Normal Respiratory Pattern Normal Blood Pressure Blood Pressure Mean Blood Pressure Source Blood Pressure Position Blood Pressure Location Pulse Ox 88 Oxygen Delivery Method Nasal Cannula Room Air Oxygen Flow Rate (L/min) 2 11/03/24 08:27 11/03/24 13:54 11/03/24 14:05 Temperature 97.9 F Temperature Source Oral Pulse Rate 61 Pulse Strength Respiratory Rate 18 Respiratory Effort Normal Non-Labored Respiratory Depth Normal Respiratory Pattern Normal Blood Pressure 107/68 Blood Pressure Mean 81 Blood Pressure Source Monitor Blood Pressure Position Sitting Blood Pressure Location Left Arm Pulse Ox 94 94 95 Oxygen Delivery Method Nasal Cannula Room Air Nasal Cannula Oxygen Flow Rate (L/min) 2 2 11/03/24 14:07 11/03/24 14:26 Temperature 98.4 F Temperature Source Oral Pulse Rate 67 Pulse Strength Respiratory Rate 18 Respiratory Effort Respiratory Depth Respiratory Pattern Blood Pressure 122/64 H Blood Pressure Mean 83 Blood Pressure Source Monitor Blood Pressure Position Semi-Fowlers Blood Pressure Location Left Arm Pulse Ox 94 Oxygen Delivery Method Room Air Room Air Oxygen Flow Rate (L/min) [facility] <AARON Benítez - Last Filed: 11/02/24 20:52> [facility] Narrative Medical decision making narrative: Consults: Hospitalist, general surgery Differential includes but not limited to incarcerated hernia, constipation, obstruction 89-year-old male has right lower abdominal pain and swelling over the last 3 days. There is also overlying bruising. No trauma. He is on Eliquis for history of DVT. He appears well and nontoxic. Vital stable. He has a right mid to lower abdominal mass that is significantly tender with overlying bruising. It is hard to delineate if this is a hernia. He has no peritoneal signs. WBC is normal at 7.5. Hemoglobin 11.4 is stable. BMP overall unrema rkable. Lactic 1.4. CT scan shows a rectus sheath hematoma of the right lower abdominal wall measuring up to 6.7 cm. There is also a distended colon with air-fluid levels. It states it could be recent diarrhea or colonic ileus; he is not having bowel movements so ileus is more likely. Initially spoke with Dr. Serrano for admission and he asked that I consult surgery. I talked with Dr. Morrison states the typical treatment is holding anticoagulation and monitoring blood counts and if it worsens he requires IR intervention but it is not surgical. The hospitalist is comfortable with keeping him here for observation. Lab Data Attestation: I reviewed the patient's lab results. Labs: Laboratory Results - last 24 hr 11/03/24 06:45 Sodium 137 Potassium 4.9 Chloride 104 Carbon Dioxide 25.7 Anion Gap 7 BUN 24 H Creatinine 1.18 Estim Creat Clear Calc 38.37 L Est GFR (MDRD) Non-Af 60 BUN/Creatinine Ratio 20.4 H Glucose 116 H Calcium 8.2 Radiography Diagnostic Testing: Clinical Impression(s) from Imaging Studies Abdomen/Pelvis CT 11/02/24 17:05 IMPRESSION: 1. Isodense lesion of the right aspect of the lower anterior abdominal wall measuring up to 6.7 cm. This could be a rectus sheath hematoma. 2. Distended colon with air-fluid levels measuring up to 8.1 cm in diameter could represent recent diarrhea. Colonic ileus can not be excluded. 3. Hepatomegaly with fatty infiltration. 4. Right nephrolithiasis without hydronephrosis. 5. Inguinal hernias, bilaterally. 6. Right basilar atelectasis with nodular configuration. Repeat chest CT in 3 months is recommended. 7. Colonic diverticulosis without acute diverticulitis. Reading Location: [facility] [place] <Dr. Rand Rollins, DO - Last Filed: 11/04/24 07:35> [facility] Lab Data Labs: Laboratory Results - last 24 hr 11/03/24 06:45 Sodium 137 Potassium 4.9 Chloride 104 Carbon Dioxide 25.7 Anion Gap 7 BUN 24 H Creatinine 1.18 Estim Creat Clear Calc 38.37 L Est GFR (MDRD) Non-Af 60 BUN/Creatinine Ratio 20.4 H Glucose 116 H Calcium 8.2 Radiography Diagnostic Testing: Clinical Impression(s) from Imaging Studies Abdomen/Pelvis CT 11/02/24 17:05 IMPRESSION: 1. Isodense lesion of the right aspect of the lower anterior abdominal wall measuring up to 6.7 cm. This could be a rectus sheath hematoma. 2. Distended colon with air-fluid levels measuring up to 8.1 cm in diameter could represent recent diarrhea. Colonic ileus can not be excluded. 3. Hepatomegaly with fatty infiltration. 4. Right nephrolithiasis without hydronephrosis. 5. Inguinal hernias, bilaterally. 6. Right basilar atelectasis with nodular configuration. Repeat chest CT in 3 months is recommended. 7. Colonic diverticulosis without acute diverticulitis. Reading Location: [facility] [place] Treatment and Re-Evaluation :: I have personally performed a face to face assessment of the patient and have reviewed the CATE Note. I performed a substantive portion of the visit including all aspects of the following. My luther findings include: History is patient is a 9-year-old male with history of DVT on Eliquis as well as hypertension presenting with abdominal pain and constipation. He states his last bowel movement was about 4 days ago. States he has been passing some gas. Is having pain especially in his right lower quadrant.'s has associated bruising and was not sure how long it has been there. Denies any trauma to the area. Denies any nausea or vomiting. No fever or chills reported. Denies any history of abdominal surgeries. Does take chronic oxycodone for back pain. On exam patient is uncomfortable appearing but no acute distress. Hemodynamically stable. Blood pressure slightly on the soft side. Is mentating appropriately. Heart regular rate and rhythm. Lungs [place] station. Head atraumatic normocephalic. Abdomen mildly distended. There is tenderness and significant ecchymosis noted to the right lower quadrant. There is swelling however slightly irregular. Question if there is incarcerated hernia versus mass. Normal extremities. ANO x 4. No focal neurologic deficits appreciated. Skin exam?ecchymosis scattered over the abdominal wall more so on the right lower quadrant. Differential includes incarcerated hernia, abdominal wall trauma, constipation, ileus, small bowel obstruction. Patient is given multiple doses of IV pain medication for his discomfort. CT of the abdomen pelvis shows rectus sheath hematoma of the lower anterior abdominal wall measuring up to 6.7 cm. There is also colonic ileus versus distended colon with air-fluid levels measuring up to 8.1 cm. Lab work shows a mild anemia hemoglobin 11.4 however this is near his baseline. Normal white blood cell count. CMP and lactate largely unremarkable. Case discussed with hospitalist and general surgery. Will hold Eliquis and monitor for hemodynamic stability. Will be admitted for suspected spontaneous abdominal hematoma. Other additions or changes: [None] Discharge Plan Dx/Rx/DC Orders Clinical Impression: Rectus sheath hematoma, Abdominal pain, Anticoagulant long-term use, Constipation Disposition Disposition: Acute Care Hospital [facility] Discharge Date/Time: 11/02/24 19:51
[2024-11-02 16:13] LABS: Absolute Lymphocyte Count 0.34 X10^3/uL (0.83-4.51); Absolute Neutrophil Count 6.6 X10^3/uL (2.0-7.7); Basophil# 0.01 X10^3/uL; Basophil% 0.1 % (0-1); Hemoglobin 11.4 g/dL (13.0-16.5); Lymphocyte # 0.34 X10^3/ul (0.83-4.51); Lymphocyte % 4.5 % (19-41); Mean Corp Hgb Conc 33.5 g/dL (32-36); Mean Corpuscular Volume 101.5 fL (80-94); Monocyte% 6.7 % (0-10); NRBC Flagged by Analyzer 0 % (0-5); Neutrophil # 6.55 X10^3/uL (2.7-7.7); Neutrophil % 87.4 % (47-70); POSITIVE DIFFERENTIAL YES; Platelet Count 216 K/mm3 (150-450); RBC Distribution Width CV 16.7 % (11.6-14.6); RBC Distribution Width SD 62.1 fl (35.1-43.9); Red Blood Count 3.35 M/mm3 (4.6-6.2); White Blood Count 7.5 K/mm3 (4.4-11.0)
[2024-11-02] MEDS: fentaNYL 100 MCG/2 ML Ampul 50 MCG IV (16:27)
[2024-11-02 16:28] VITALS: BP 152/76; PULSE 71; RESP 22; O2SAT 95
[2024-11-02 16:39] LABS: Anion Gap 10 (5-15); BUN 25 mg/dL (4-19); BUN/Creat Ratio 21.3 RATIO (10-20); Calcium,Total 8.9 mg/dL (7.6-11.0); Carbon Dioxide 27.6 mmol/L (21.0-32.0); Chloride 103 mmol/L (98-108); Creatinine, Serum 1.19 mg/dL (0.70-1.20); EST Glomerular Filtration Rate 59 (>60); Estimated Creatinine Clearance 40.83 ml/min (50-250); Glucose 125 mg/dL (70-99); Lactic Acid 1.4 mmol/L (0.0-2.0); Potassium 4.4 mmol/L (3.3-5.1); Sodium Level 141 mmol/L (133-145)
--- NOTE | 2024-11-02 17:05 | CT_ITS ---
EXAM: CT Abdomen and Pelvis With Intravenous Contrast CLINICAL INDICATION: PAIN, HERNIA TECHNIQUE: Axial computed tomography images of the abdomen and pelvis with intravenous contrast. This CT exam was performed using one or more of the following dose reduction techniques: automated exposure control, adjustment of the mA and/or kV according to patient size, and/or use of iterative reconstruction technique. COMPARISON: CT Abdomen Pelvis dated 09/19/2023 FINDINGS: LUNG BASES: Right basilar atelectasis with nodular configuration. Repeat chest CT in 3 months is recommended. ABDOMEN: LIVER: Hepatomegaly with fatty infiltration. GALLBLADDER AND BILE DUCTS: Unremarkable. No calcified stones. No ductal dilation. PANCREAS: Unremarkable. No mass. No ductal dilation. SPLEEN: Unremarkable. No splenomegaly. ADRENALS: Right adrenal adenoma, stable. KIDNEYS AND URETERS: Right nephrolithiasis without hydronephrosis. Left renal cysts. STOMACH AND BOWEL: Distended colon with air-fluid levels measuring up to 8.1 cm in diameter could represent recent diarrhea. Colonic ileus can not be excluded. Colonic diverticulosis without acute diverticulitis. PELVIS: APPENDIX: No findings to suggest acute appendicitis. BLADDER: Unremarkable. No mass. REPRODUCTIVE: Unremarkable as visualized. ABDOMEN and PELVIS: INTRAPERITONEAL SPACE: Unremarkable. No free air. No significant fluid collection. BONES/JOINTS: Multilevel endplate degenerative changes and disc disease of the visualized spine. No acute fracture. No dislocation. SOFT TISSUES: Isodense lesion of the right aspect of the lower anterior abdominal wall measuring up to 6.7 cm. This could be a rectus sheath hematoma. Inguinal hernias, bilaterally. VASCULATURE: Scattered calcified atherosclerotic disease of the aorta measuring up to 2.9 cm in diameter. No abdominal aortic aneurysm. LYMPH NODES: Unremarkable. No enlarged lymph nodes. CT/Abdomen/Pelvis W IV Cont ONLY IMPRESSION: 1. Isodense lesion of the right aspect of the lower anterior abdominal wall me asuring up to 6.7 cm. This could be a rectus sheath hematoma. 2. Distended colon with air-fluid levels measuring up to 8.1 cm in diameter co uld represent recent diarrhea. Colonic ileus can not be excluded. 3. Hepatomegaly with fatty infiltration. 4. Right nephrolithiasis without hydronephrosis. 5. Inguinal hernias, bilaterally. 6. Right basilar atelectasis with nodular configuration. Repeat chest CT in 3 months is recommended. 7. Colonic diverticulosis without acute diverticulitis. Reading Location: [id number]
[2024-11-02 19:11] LABS: Bacteria 0 SEEN /hpf (None Seen); Mucous, Urine 0 SEEN /hpf (<or=2+)
[2024-11-02 19:13] VITALS: BP 139/74; PULSE 75; RESP 16; O2SAT 92
[2024-11-02 19:14] LABS: Color, Urine Yellow (Yellow); Glucose, Dipstick Normal (Normal); Ketone-Dipstick Negative (Negative); Leukocyte Esterase-Dipstick Negative /ul (Negative); Nitrite-Dipstick Negative (Negative); Occult Blood-Urine Negative /ul (Negative); Protein-Dipstick 30 mg/dl (Negative); Urine Bilirubin Dipstick Negative (Negative); Urine Clarity Clear (Clear); Urine Urobilinogen Normal (Normal)
[2024-11-02 19:15] VITALS: BP 139/74; PULSE 77; RESP 17; TEMP 33.3; O2SAT 98
--- OUTSIDE RECORDS SUMMARY | 2024-11-02 19:32 | XMS RPT_ITS | CCD ---
Author Organization [facility] Care Team Providers Care Biostatistics Professor Name Role Phone Yensho DOOR GLASS INSTALLER, Geetha A Unavailable Unavailab le Yensho DOOR GLASS INSTALLER, Geetha A Unavailable Unavailab le Melia Grimes Unavailable Unavailable Sheila Malloy Unavailable Unavailable Mark Anaya Unavailable Sheila Malloy Unavailable Unavailable Martinez DOOR GLASS INSTALLER, Melia Fuentes Unavailable Unavaila ble Dr. Shoshana Ulrich Primary Care Provider [phone] Dr. Shoshana Ulrich Referring Provider Dr. Shoshana Ulrich Other Provider Dr. Mark Anaya Attending Provider Dr. Rubén Sims Attending Provider Dr. Shoshana Ulrich Primary Care Provider [phone] Dr. Stefan Orr Attending Provider [phone] Sam Foster Referring Provider Dr. Shoshana Ulrich Primary Care Provider [phone] Dr. Stefan Orr Attending Provider [phone] Sam Foster Referring Provider [phone] AARON Olmedo Attending Provider [phone] Dr. Stefan Orr Attending Provider [phone] Edgar Hennessy Attending Provider Dr. Michele Ruby Referring Provider Dr. Shoshana Ulrich Primary Care Provider [phone] Dr. Stefan Orr Attending Provider Dr. Mojgan Shoshana Primary Care Provider Dr. Stefan Orr Attending Provider Dr. Sunny Smiley Referring Provider [phone] Dr. Russel Pal Emergency Provider Dr. Rosemary Fernandez Admit Provider Dr. Rosemary Fernandez Other Provider Jesus, Dr. Flowers Attending Provider Dr. Rosemary Fernandez Attending Provider Miedel, Shoshana Primary Care Unavailable Rosemary Fernandez Admitting Unavailable Rosemary Fernandez Attending Unavailable Rosemary Fernandez Consulting Unavailable Miedel, Shoshana Primary Care Unavailable Sai Salazar Referring Unavailable Sai Salazar Attending Unavailable Miedel, Shoshana Attending Unavailable Miedel, Shoshana Referring Unavailable Miedel, Shoshana Primary Care Unavailable Miedel, Shoshana Attending Unavailable Miedel, Shoshana Referring Unavailable Miedel, Shoshana Primary Care Unavailable Sunny Smiley Referring Unavailabl Sunny Larsen Attending Unavailabl e Miedel, Shoshana Primary Care Unavailable Miedel, Shoshana Primary Care Unavailable Sunny Smiley Referring Unavailabl e Sunny Smiley Attending Unavailabl e Miedel, Shoshana Primary Care Unavailable Santana Sandoval Attending Unavailable Miedel, Shoshana Primary Care Unavailable Marco Antonio Garay Attending Unavailabl e Miedel, Shoshana Primary Care Unavailable Rosemary Fernandez Admitting Unavailable Rosemary Fernandez Attending Unavailable Miedel, Shoshana Attending Unavailable Miedel, Shoshana Primary Care Unavailable Miedel, Shoshana Referring Unavailable Miedel, Shoshana Primary Care Unavailable Miedel, Shoshana Attending Unavailable Miedel, Shoshana Referring Unavailable Miedel, Shoshana Referring Unavailable Miedel, Shoshana Attending Unavailable Miedel, Shoshana Primary Care Unavailable Miedel, Shoshana Attending Unavailable Miedel, Shoshana Primary Care Unavailable Miedel, Shoshana Primary Care Unavailable Sai Salazar Referring Unavailable Santana Mason Attending Unavailable Miedel, Dumas Primary Care Unavailable Collin Grey Referring Unavailable Jam Tobin Attending Unavailable Stefan Orr Attending Unavailable Sunny Smiley Referring Unavailabl e Miedel, Shoshana Primary Care Unavailable Friend, Lionel Attending Unavailable JimRosemary Referring Unavailable Miedel, Dumas Primary Care Unavailable Miedel, Shoshana Consulting Unavailable Miedel, Shoshana Referring Unavailable JasvirCatherine snow Attending Unavailable Friend, Lionel Attending Unavailable Miedel, Dumas Primary Care Unavailable Jim, Rosemary Referring Unavailable Miedel, Shoshana Primary Care Unavailable Miedel, Shoshana Referring Unavailable Kristen Amaya Attending Unavailable Miedel, Dumas Primary Care Unavailable Girish Rucker Referring Unavailable Jose Figueroa Attending Unavailable Miedel, Dumas Primary Care Unavailable Miedel, Shoshana Referring Unavailable Friend, Lionel Attending Unavailable Mojgan TAPIA, Dr. Anna Primary Care Provider Dr. Shoshana Ulrich MD Attending Provider Dr. Shoshana Ulrich MD Referring Provider Dr. Santana Sandoval DO Attending Provider Dr. Santana Sandoval DO Emergency Provider Dr. Sai Salazar DPM Attending Provider Dr. Sai Salazar DPM Referring Provider Dr. Santana Mason MD Attending Provider Dr. Marco Antonio Garay DO Attending Provider Dr. Marco Antonio Garay DO Emergency Provider Kristen Dia Attending Provider Dr. Jose Figueroa MD Attending Provider [phone] Allergies Allergy Classification Reported Allergen(s) Allergy Type Date of Onset Reaction(s) Facility (13 sources) ibuprofen drug allergy 7 Swelling of legs, Swelling [facility] Work Phone: (17 sources) Ibuprofen Drug Allergy 2 Swelling [facility] (1 source) Ibuprofen Drug Allergy 5 [facility] Repository Medications Current Medications Medication Drug Class(es) Dates Sig (Normalized) Sig (Original) acetaminophen 325 mg / HYDROcodone bitartrate 5 mg oral tablet (20 sources) Opioid Agonist Start: 09-08-2021 take 1 tablet by mouth every six hours Hydrocodone-Aceta minophen Active 1 TABLET PO EVERY 6 HOURS 10 September 08, 2021 Start: 08-16-2020 End: 08-19-2020 Hydrocodone-Acetaminophen 1 TABLET tablet Discontinued 1 {tbl} PO EVERY 6 HOURS NEEDED as needed for Pain 10 August 16, 2020 August 18, 2020 12:00am August 19, 2020 12:04am Start: 08-16-2020 End: 08-19-2020 take 1 tablet by mouth every six hours as needed Hydrocodone-Acetaminophen Discontinued 1 TABLET PO EVERY 6 HOURS NEEDED 10 August 16, 2020 August 19, 2020 12:04am Start: 10-10-2015 End: 12-29-2015 Hydrocodone-Acetaminophen (V icodin 5-300 Mg Tablet) 1 EACH tablet Discontinued 1 {tbl} PO EVERY 6 HOURS NEEDED as needed for Pain October 10, 2015 12:00am December 29, 2015 1:30pm Start: 10-07-2015 End: 12-29-2015 Hydrocodone-Acetaminophen 1 TABLET tablet Discontinued 1 - 2 {tbl} PO EVERY 4 HOURS NEEDED as needed for Pain October 07, 2015 12:00am December 29, 2015 1:30pm Start: 10-07-2015 End: 12-29-2015 take 1 tablet by mouth every four hours as needed Hydrocodone-Acetaminophen Discontinued 1 - 2 TABLET PO EVERY 4 HOURS NEEDED October 07, 2015 12:00am December 29, 2015 1:30pm Albuterol Sulfate (16 sources) beta2-Adrenergic Agonist Start: 09-08-2021 take 1 puff(s) by inhalation every four hours as needed Albuterol Sulfate Active 1 PUFF INHALATION EVERY 4 HOURS NEEDED September 08, 2021 10:09am Start: 09-08-2021 Albuterol Sulf ate 90 mcg/actuation HFA aerosol inhaler Active 1 NMA INHALATION Q4H as needed for sob/wheezing September 08, 2021 12:00am Start: 09-08-2021 take 1 puff(s) by in halation every four hours Albuterol Sulfate Active 1 PUFF INHALATION Q4H September 08, 2021 12:00am amLODIPine 5 mg oral tablet (17 sources) Dihydropyridine Calcium Channel David Start: 04-26-2020 take 1 tablet by mouth once daily Amlodipine 5 mg tablet Active 5 mg PO DAILY July 02, 2022 1:00am amoxicillin 875 mg / clavulanate 125 mg oral tablet (2 sources) Penicillin-class Antibacterial Start: 09-08-2021 take 1 tablet by mouth twice daily Amoxicillin-Pot Clavulanate Active 1 TABLET PO TWICE A DAY September 08, 2021 1:13pm apixaban 5 mg oral tablet (3 sources) Factor Xa Inhibitor Start: 06-27-2024 End: 07-25-2024 take 1 tablet by mouth twice daily Apixaban (Eliquis) 5 mg tablet Active 5 mg PO TWICE A DAY 180 July 25, 2024 12:26pm Start: 06-20-2024 End: 07-13-2024 take 1 tablet by mouth once Apixaban (Eliquis Dvt-Pe T reat 30d Start) 5 mg (74 tabs) tablets,dose pack Discontinued 0 PO .COMPLEX 74 June 20, 2024 1:00am July 13, 2024 2:03pm orally per package directions Aopxvdskpcu-Xrncxtvnl-Adzspo er (16 sources) Anticholinergic, Corticosteroid, beta2-Adrenergic Agonist Start: 09-08-2021 Flxqiooxstc-Juirnuicx-Kxeggs er (Trelegy Ellipta) 100-62.5-25 mcg blister with device Active 1 INH INHALATION DAILY September 08, 2021 10:09am Start: 09-08-2021 End: 09-19-2023 Dvfpqftjnew-Oybaqhohf-Ymzltg er (Trelegy Ellipta) 100-62.5-25 mcg blister with device Discontinued 1 NMA INHALATION DAILY September 08, 2021 12:00am September 19, 2023 12:07pm Start: 09-08-2021 End: 09-19-2023 Rddbrcbnmlo-Cxuhhgxgx-Nwsjgx er (Trelegy Ellipta) 100-62.5-25 mcg blister with device Discontinued 1 INH INHALATION DAILY September 08, 2021 12:00am September 19, 2023 12:07pm Start: 09-08-2021 Fluticasone-Um eclidin-Vilanter (Trelegy Ellipta) 100-62.5-25 mcg blister with device Active 1 INH INHALATION DAILY September 07, 2021 11:00pm Start: 09-08-2021 Fluticasone-Um eclidin-Vilanter (Trelegy Ellipta) 100-62.5-25 mcg blister with device Active 1 INH INHALATION DAILY September 08, 2021 12:00am hypromellose 17 mg/ml ophthalmic solution (3 sources) Start: 09-19-2023 Artifi.Tears(Hypromellose)(P f) 1.7 % drops with applicator Active 1 NMA EACH EYE DAILY as needed for dry eyes September 19, 2023 12:00am levoFLOXacin 500 mg oral tablet (3 sources) Quinolone Antimicrobial Start: 03-31-2022 take 500 mg by mouth twice daily Levofloxacin Active 500 MG PO TWICE A DAY March 31, 2022 1:00am naproxen 500 mg oral tablet (3 sources) Nonsteroidal Anti-inflammator y Drug Start: 03-31-2022 take 500 mg by mouth twice daily Naproxen Active 500 MG PO TWICE A DAY March 31, 2022 1:00am nystatin 100 unt/mg topical powder (4 sources) Polyene Antifungal Start: 07-13-2024 Nystatin 100,000 unit/gram p owder Active 1 NMA TOPICAL daily as needed July 13, 2024 1:00am Start: 09-19-2023 End: 07-13-2024 Nystatin 100,000 unit/gram c ream Discontinued 1 NMA TOPICAL 4 TIMES DAILY as needed for skin irritation September 19, 2023 12:00am July 13, 2024 2:03pm Start: 09-19-2023 Nystatin Activ e 1 APPLIC TOPICAL 4 TIMES DAILY September 19, 2023 12:00am ondansetron 4 mg disintegrating oral tablet (19 sources) Serotonin-3 Receptor Antagonist Start: 09-08-2021 take 4 mg by mouth every eight hours Ondansetron Active 4 MG PO Q8H September 08, 2021 1:12pm Start: 10-07-2015 End: 12-29-2015 take 1 tablet by mouth every eight hours as needed for nausea Ondansetron 4 MG tablet Discontinued 4 mg PO EVERY 8 HOURS NEEDED as needed for Nausea October 07, 2015 12:00am December 29, 2015 1:30pm 24 hr oxybutynin chloride 10 mg extended release oral tablet (3 sources) Cholinergic Muscarinic Antagonist Start: 09-19-2023 take 1 tablet by mouth once daily Oxybutynin Chloride 10 mg tablet extended release 24hr Active 10 mg PO DAILY September 19, 2023 12:00am pentoxifylline 400 mg extended release oral tablet (3 sources) Blood Viscosity [employer] Tech Start: 03-31-2022 take 400 mg by mouth once daily at mealtime Pentoxifylline Active 400 MG PO DAILY March 31, 2022 1:00am must administer with a meal/food Completed/Discontinued Medications Medication Drug Class(es) Dates Sig (Normalized) Sig (Original) acetaminophen 325 mg / oxyCODONE hydrochloride 5 mg oral tablet (7 sources) Opioid Agonist Start: 07-21-2023 End: 09-19-2023 Oxycodone-Acetamino phen 5-325 mg tablet Discontinued 1 {tbl} PO EVERY 6 HOURS NEEDED as needed for Pain 12 July 21, 2023 September 19, 2023 12:07pm Start: 07-21-2023 End: 09-19-2023 take 1 tablet by mouth every six hours as needed Oxycodone-Acetaminophen Discontinued 1 TABLET PO EVERY 6 HOURS NEEDED 04 17July 21, 2023 September 19, 2023 12:07pm Start: 09-18-2020 take 1 tablet by marielle th every eight hours Oxycodone-Acetaminophen (Percocet) 5-325 mg tablet Active 1 - 2 TABLET PO Q8H 27 08September 18, 2020 1:58pm 120 actuat budesonide 0.16 mg/actuat / formoterol fumarate 0.0045 mg/actuat metered dose inhaler (8 sources) Corticosteroid, beta2-Adrenergic Agonist Start: 09-16-2016 SYMBICORT 160-4.5 MCG/ACT AERO Two inh twice daily BUDESONIDE-FORMOTEROL FUMARATE [id number] Melia Grimes Start: 09-16-2016 SYMBICORT 160- 4.5 MCG/ACT AERO Two inh twice daily BUDESONIDE-FORMOTEROL FUMARATE [id number] Melia Grimes Start: 06-02-2016 take 1 puff(s) by in halation twice daily Budesonide-Formoterol (Symbicort) 1 INHALER inhaler Active 2 PUFF INHALATION TWICE A DAY June 02, 2016 3:07pm Kvhrscawxq-Vdnblxny-Geyyiceh ol (3 sources) Corticosteroid, beta2-Adrenergic Agonist Start: 09-19-2023 End: 12-06-2023 Nkjjmjvjry-Gblfsthe-Tizshjlz ol (Breztri Aerosphere) 160-9-4.8 mcg/actuation HFA aerosol inhaler Discontinued 2 NMA INHALATION TWICE A DAY September 19, 2023 12:00am December 06, 2023 10:32am Start: 09-19-2023 Budesonide-Gly copyr-Formoterol (Breztri Aerosphere) 160-9-4.8 mcg/actuation HFA aerosol inhaler Active 2 INH INHALATION TWICE A DAY September 19, 2023 12:00am Start: 09-19-2023 Budesonide-Gly copyr-Formoterol [Budesonide 160 Mcg-Glycopyr 9 Mcg-Formot 4.8 Mcg/Actuation Hfa Inhaler] (Budesonide 160 Mcg-Glycopyr 9 Mcg-Formot 4.8 ) 160-9-4.8 mcg/actuation HFA aerosol inhaler Active 2 INH INHALATION TWICE A DAY September 19, 2023 12:00am cephalexin 500 mg oral capsule (20 sources) Cephalosporin Antibacterial Start: 11-03-2022 End: 09-19-2023 take 1 capsule by mouth twice daily Cephalexin 500 mg capsule Discontinued 500 mg PO TWICE A DAY November 03, 2022 12:00am September 19, 2023 12:06pm Start: 10-07-2015 End: 12-29-2015 take 1 capsule by mouth every six hours Cephalexin 500 MG capsule Discontinued 500 mg PO EVERY 6 HOURS October 07, 2015 12:00am December 29, 2015 1:31pm colchicine 0.6 mg oral capsule (17 sources) Start: 09-11-2020 End: 05-26-2021 take 1 capsule by mouth once daily as needed Colchicine 0.6 mg Capsule Discontinued 0.6 mg PO DAILY as needed for GOUT September 11, 2020 12:00am May 26, 2021 11:36am finasteride 5 mg oral tablet (16 sources) 5-alpha Reductase Inhibitor Start: 09-08-2021 End: 12-06-2023 take 1 tablet by mouth once daily Finasteride 5 mg tablet Discontinued 5 mg PO DAILY September 08, 2021 12:00am December 06, 2023 10:33am gabapentin 100 mg oral capsule (11 sources) Anti-epileptic Agent Start: 10-27-2022 End: 12-06-2023 take 1 capsule by mouth at bedtime Gabapentin 100 mg capsule Discontinued 100 mg PO AT BEDTIME October 27, 2022 12:00am December 06, 2023 10:33am methylPREDNISolone 4 mg oral tablet (11 sources) Corticosteroid Start: 07-02-2022 End: 07-08-2022 take 1 tablet by mouth once Methylprednisolone (Medrol (Trever)) 4 mg tablets,dose pack Discontinued 4 mg PO per package directions 03 11July 02, 2022 1:00am July 07, 2022 1:00am July 08, 2022 1:04am Multivitamin preparation (16 sources) Start: 09-11-2020 End: 05-26-2021 take 1 tablet by mouth once daily Multivitamin Discontinued 1 TABLET PO DAILY September 11, 2020 2:02pm May 26, 2021 11:37am Start: 09-11-2020 End: 05-26-2021 take 1 tablet by mouth once daily Multivitamin Discontinued 1 TABLET PO DAILY September 10, 2020 11:00pm May 26, 2021 10:37am Start: 09-11-2020 End: 05-26-2021 take 1 tablet by mouth once daily Multivitamin Discontinued 1 TABLET PO DAILY September 11, 2020 12:00am May 26, 2021 11:37am Multivitamin Tablet (1 source) Start: 09-11-2020 End: 05-26-2021 Multivitamin Tablet Discontinued 1 {tbl} PO DAILY September 11, 2020 12:00am May 26, 2021 11:37am nortriptyline 10 mg oral capsule (6 sources) Tricyclic Antidepressant Start: 11-15-2016 take 1 tablet by mouth once daily NORTRIPTYLINE HCL 10 MG CAPS One tablet by mouth daily NORTRIPTYLINE HCL [id number] Melia Martinez LPN omeprazole 20 mg delayed release oral capsule (17 sources) Proton Pump Inhibitor Start: 09-11-2020 End: 05-26-2021 Omeprazole 20 mg Capsule,Delayed Release(Dr/Ec) Discontinued 20 mg PO NEEDED as needed for Heartburn September 11, 2020 12:00am May 26, 2021 11:37am oxyCODONE hydrochloride 5 mg oral capsule (10 sources) Opioid Agonist Start: 11-03-2022 End: 06-26-2024 take 1 capsule by mouth every six hours as needed for pain Oxycodone 5 mg capsule Discontinued 5 mg PO EVERY 6 HOURS as needed for pain 10 3 November 03, 2022 June 26, 2024 5:22pm simethicone 80 mg chewable tablet (1 source) Start: 12-06-2023 End: 06-26-2024 Simethicone (Gas Relief (Simethicone)) 80 mg tablet,chewable Discontinued 80 mg PO 2 to 4 times per day as needed for abdominal distention and gas 120 December 06, 2023 12:00am June 26, 2024 5:22pm tamsulosin hydrochloride 0.4 mg oral capsule (20 sources) alpha-Adrenergic David Start: 09-08-2021 End: 09-19-2023 take 1 capsule by mouth at bedtime Tamsulosin 0.4 mg capsule Discontinued 0.4 mg PO AT BEDTIME September 08, 2021 12:00am September 19, 2023 12:07pm Start: 11-15-2016 take 1 tablet by marielle th once daily FLOMAX 0.4 MG CAPS One tablet by mouth daily TAMSULOSIN HCL [id number] Melia Martinez LPN traMADol hydrochloride 50 mg oral tablet (13 sources) Opioid Agonist Start: 07-02-2022 End: 09-19-2023 take 1 tablet by mouth every twelve hours as needed for pain Tramadol 50 mg tablet Discontinued 50 mg PO Q12H as needed for Pain July 02, 2022 1:00am September 19, 2023 12:07pm Start: 09-08-2021 take 50 mg by mouth twice daily as needed Tramadol Active 50 MG PO TWICE DAILY NEEDED September 08, 2021 10:09am Problems Active Problems Problem Classification Problem Date Documented Da te Episodic/Chronic Abdominal pain (20 sources) Abdominal pain; Translations: [Unspecified abdominal pain] 09-08-2021 Episodic Administrative/social admission (20 sources) Counseling procedure with explicit context; Translations: [Tobacco abuse counseling] Episodic Calculus of urinary tract (20 sources) History of calculus of kidney; Translations: [Personal history of urinary calculi] Episodic Chronic kidney disease (1 source) Chronic kidney disease; Translations: [Chronic kidney disease, stage 3a] Onset: Chronic obstructive pulmonary disease and bronchiectasis (20 sources) Chronic obstructive lung disease; Translations: [Pulmonary emphysema] Onset: 7 11-15-2016 Chronic Chronic ulcer of skin (20 sources) Ankle ulcer; Translations: [Non-pressure chronic ulcer of unspecified ankle with unspecified severity] Chronic Deficiency and other anemia (3 sources) Chronic anemia; Translations: [Anemia, unspecified] 09-19-2023 Episodic Diverticulosis and diverticulitis (16 sources) Diverticulitis; Translations: [Diverticulitis of intestine, part unspecified, without perforation or abscess without bleeding] 09-16-2021 Chronic E Codes: Fall (1 source) Fall; Translations: [Unspecified fall, initial encounter] 06-03-2024 Episodic Essential hypertension (20 sources) Hypertensive disorder; Translations: [Essential (primary) hypertension] Chronic Gout and other crystal arthropathies (20 sources) Gout; Translations: [Gout, unspecified] Chronic Hyperplasia of prostate (20 sources) Prostatism; Translations: [Benign prostatic hyperplasia without lower urinary tract symptoms] Chronic Mycoses (11 sources) Tinea pedis; Translations: [Tinea pedis] 10-27-2022 Episodic Osteoarthritis (11 sources) Arthritis of hand; Translations: [Primary osteoarthritis, right hand] 10-27-2022 Chronic Other connective tissue disease (17 sources) Pain in calf; Translations: [Pain in left lower leg] 04-27-2020 Episodic Other connective tissue disease (17 sources) Swelling of lower limb; Translations: [Other specified soft tissue disorders] 07-12-2017 Episodic Other connective tissue disease (8 sources) Other specified soft tissue disorders; Translations: [Swelling of limb] Episodic Other connective tissue disease (1 source) Pain in right lower leg; Translations: [Pain in right lower leg] Onset: 5 Episodic Other diseases of veins and lymphatics (20 sources) Postthrombotic syndrome; 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] 07-12-2017 Chronic Other diseases of veins and lymphatics (17 sources) Chronic peripheral venous hypertension; Translations: [Chronic venous hypertension (idiopathic) with ulcer and inflammation of unspecified lower extremity] 06-09-2021 Chronic Other diseases of veins and lymphatics (7 sources) 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; Translations: [Postphlebetic syndrome with ulcer and inflammation] Chronic Other diseases of veins and lymphatics (7 sources) 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; Translations: [Postphlebetic syndrome with ulcer] Chronic Other diseases of veins and lymphatics (7 sources) Chronic venous hypertension (idiopathic) with ulcer and inflammation of unspecified lower extremity; Translations: [Chronic venous hypertension with ulcer and inflammation] Chronic Other diseases of veins and lymphatics (17 sources) Peripheral venous insufficiency; Translations: [Venous insufficiency (chronic) (peripheral)] 07-12-2017 Episodic Other diseases of veins and lymphatics (7 sources) Venous insufficiency (chronic) (peripheral); Translations: [Venous (peripheral) insufficiency, unspecified] Episodic Other gastrointestinal disorders (14 sources) Constipation; Translations: [Constipation, unspecified] 04-17-2022 Episodic Other injuries and conditions due to external causes (1 source) Unspecified injury of left shoulder and upper arm, initial encounter; Translations: [Unspecified injury of left shoulder and upper arm, initial encounter] Onset: 5 Episodic Other nervous system disorders (1 source) Polyneuropathy, unspecified; Translations: [Polyneuropathy, unspecified] Onset: 4 Chronic Other nervous system disorders (1 source) Paresthesia of skin; Translations: [Paresthesia of skin] Onset: 5 Episodic Other nervous system disorders (2 sources) Paresthesia; Translations: [Paresthesia of skin] 07-13-2024 Episodic Comment on above: 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 Nonresponsive to treatment for skin disease. No STD noted. Otitis media and related conditions (19 sources) Dysfunction of eustachian tube; Translations: [Other specified disorders of Eustachian tube, unspecified ear] Episodic Phlebitis; thrombophlebitis and thromboembolism (3 sources) Acute embolism and thrombosis of unspecified deep veins of right lower extremity; Translations: [Acute deep vein thrombosis of lower limb] Onset: 5 06-28-2024 Episodic Residual codes; unclassified (17 sources) Tobacco user; Translations: [Tobacco use] 07-12-2017 Episodic Residual codes; unclassified (8 sources) Tobacco use; Translations: [Tobacco use disorder] Episodic Residual codes; unclassified (11 sources) Bilateral lower limb edema; Translations: [Edema, unspecified] 10-27-2022 Episodic Screening or history of mental health and substance abuse (6 sources) Tobacco dependence syndrome; Translations: [Nicotine dependence, unspecified, uncomplicated] Onset: 7 11-15-2016 Chronic Skin and subcutaneous tissue infections (17 sources) Cellulitis of hand; Translations: [Cellulitis of right upper limb] 08-17-2020 Episodic Spondylosis; intervertebral disc disorders; other back problems (3 sources) Spondylosis without myelopathy or radiculopathy, lumbosacral region; Translations: [Arthritis of spine] Onset: 5 07-13-2024 Chronic Comment on above: Extensive lumbar spo ndylosis and arthritis. Prior attempts to ablate pain with sympathectomies noted. 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; Translations: [Varicose veins of unspecified lower extremity with both ulcer of unspecified site and inflammation] Episodic Past or Other Problems Problem Classification Problem Date Documented Da te Episodic/Chronic Deficiency and other anemia (3 sources) Anemia, unspecified; Translations: [Anemia, unspecified] Onset: 4 09-19-2023 Episodic Gastrointestinal hemorrhage (15 sources) Gastrointestinal hemorrhage; Translations: [Gastrointestinal hemorrhage, unspecified] Onset: 4 09-19-2023 Episodic Other lower respiratory disease (10 sources) Lung mass; Translations: [Other nonspecific abnormal finding of lung field] Onset: 7 11-15-2016 Episodic Other nervous system disorders (1 source) Anesthesia of skin; Translations: [Anesthesia of skin] Onset: 4 Episodic Sprains and strains (14 sources) Strain of neck muscle; Translations: [Strain of muscle, fascia and tendon at neck level, initial encounter] Onset: 4 07-21-2023 Episodic Results Test Name Value Interpretation Reference Range Facility Absolute neutrophil countOrd ered By: Shoshana Ulrich on 07-24-2024 Neutrophils (Bld) [#/Vol] 5.8 10*3/uL 2.0-7.7 [facility] Anion gap in Serum or Plasma Ordered By: Shoshana Ulrich on 07-24-2024 Anion gap [Moles/Vol] 11 mmol/L 5-15 [facility] BUN/creatinine ratioOrdered By: Shoshana Ulrich on 07-24-2024 Urea nitrogen/Creatinine [Mass ratio] 31.3 mg/mg High 10-20 [facility] Basophil percentageOrdered B y: Shoshana Ulrich on 07-24-2024 Basophils/100 WBC (Bld) 0.5 % 0-1 [facility] Bilirubin, totalOrdered By: Shoshana Ulrich on 07-24-2024 Bilirubin [Mass/Vol] 0.61 mg/dL 0.00-1.30 [facility] CBC W/Diff, Automatedon 07-14 Absolute Lymph 0.98 X10 3/uL Normal 0.83-4.51 [facility] Comment on above: Performed By: #### L 100.0100, L503.6550, L500.4050, L503.6030 #### [facility] [address] [place], [id number] Absolute Neut 5.8 X10 3/uL Normal 2.0-7.7 [facility] Comment on above: Performed By: #### L 100.0100, L503.6550, L500.4050, L503.6030 #### [facility] [address] [place], [id number] Basophils/100 WBC (Bld) 0.5 % Normal 0-1 [facility] Comment on above: Performed By: #### L 100.0100, L503.6550, L500.4050, L503.6030 #### [facility] [address] [place], [id number] Eosinophils/100 WBC (Bld) 2.2 % Normal 0-5 [facility] Comment on above: Performed By: #### L 100.0100, L503.6550, L500.4050, L503.6030 #### [facility] [address] [place], [id number] Erythrocyte distribution width (RBC) [Ratio] 15.0 % High 11.6-14.6 [facility] Comment on above: Performed By: #### L 100.0100, L503.6550, L500.4050, L503.6030 #### [facility] [address] [place], [address] Hematocrit (Bld) [Volume fraction] 38.2 % Low 40-54 [facility] Comment on above: Performed By: #### L 100.0100, L503.6550, L500.4050, L503.6030 #### [facility] [address] [place], [id number] Hemoglobin (Bld) [Mass/Vol] 12.5 g/dL Low 13.0-16.5 [facility] Comment on above: Performed By: #### L 100.0100, L503.6550, L500.4050, L503.6030 #### [facility] [address] [place], [address] IG% 1.200 High 0.0-0.9 [facility] Comment on above: Result Comment: IG% - Immature Granulocytes (promyelocytes, myelocytes and metamyelocytes) > 1% indicates that a LEFT SHIFT is Present. Performed By: #### L 100.0100, L503.6550, L500.4050, L503.6030 #### [facility] [address] [place], [address] Lymphocytes/100 WBC (Bld) 12.7 % Low 19-41 [facility] Comment on above: Performed By: #### L 100.0100, L503.6550, L500.4050, L503.6030 #### [facility] [address] [place], [address] MCH (RBC) [Entitic mass] 32.4 pg High 27.0-32.0 [facility] Comment on above: Performed By: #### L 100.0100, L503.6550, L500.4050, L503.6030 #### [facility] [address] [place], [address] MCHC (RBC) [Mass/Vol] 32.7 g/dL Normal 32-36 [facility] Comment on above: Performed By: #### L 100.0100, L503.6550, L500.4050, L503.6030 #### [facility] [address] [place], [address] MCV (RBC) [Entitic vol] 99.0 fL High 80-94 [facility] Comment on above: Performed By: #### L 100.0100, L503.6550, L500.4050, L503.6030 #### [facility] [address] [place], [address] Monocytes/100 WBC (Bld) 7.7 % Normal 0-10 [facility] Comment on above: Performed By: #### L 100.0100, L503.6550, L500.4050, L503.6030 #### [facility] [address] [place], [id number] Neutrophils/100 WBC (Bld) 75.7 % High 47-70 [facility] Comment on above: Performed By: #### L 100.0100, L503.6550, L500.4050, L503.6030 #### [facility] [address] [place], [address] Nucleated RBC (Bld) [#/Vol] 0 10*3/uL Normal 0-5 [facility] Comment on above: Performed By: #### L 100.0100, L503.6550, L500.4050, L503.6030 #### [facility] [address] [place], [address] Platelet mean volume (Bld) [Entitic vol] 10.7 fL Normal 6.2-12.0 [facility] Comment on above: Performed By: #### L 100.0100, L503.6550, L500.4050, L503.6030 #### [facility] [address] [place], [address] Platelets (Bld) [#/Vol] 271 10*3/uL Normal 150-450 [facility] Comment on above: Performed By: #### L 100.0100, L503.6550, L500.4050, L503.6030 #### [facility] [address] [place], [address] RBC (Bld) [#/Vol] 3.86 10*6/uL Low 4.6-6.2 [facility] Comment on above: Performed By: #### L 100.0100, L503.6550, L500.4050, L503.6030 #### [facility] [address] [place], [address] RDW SD 55.0 fl High 35.1-43.9 [facility] Comment on above: Performed By: #### L 100.0100, L503.6550, L500.4050, L503.6030 #### [facility] [address] [place], [address] WBC (Bld) [#/Vol] 7.7 10*3/uL Normal 4.4-11.0 [facility] Comment on above: Performed By: #### L 100.0100, L503.6550, L500.4050, L503.6030 #### [facility] [address] [place], [place], [id number] Calculated total iron bindin g capacityOrdered By: Shoshana Ulrich on 07-24-2024 Total Iron Binding Capacity 322 ug/dL 250-450 [facility] Carbon dioxide, total [Moles /volume] in Central venous bloodOrdered By: Shoshana Ulrich on 07-24-2024 CO2 [Moles/Vol] 24.2 mmol/L 21.0-32.0 [facility] Chloride assayOrdered By: Paul Ulrich on 07-24-2024 Chloride [Moles/Vol] 105 mmol/L 98-108 [facility] Comprehensive Metabolic Prof ilon 07-24-2024 Albumin [Mass/Vol] 4.2 g/dL Normal 3.4-4.8 [facility] Comment on above: Performed By: #### L 100.0100, L503.6550, L500.4050, L503.6030 #### [facility] [address] [place], [address] Albumin/Globulin [Mass ratio] 1.5 {ratio} Normal 0.9-2.4 [facility] Comment on above: Performed By: #### L 100.0100, L503.6550, L500.4050, L503.6030 #### [facility] [address] [place], [address] ALK PHOS 82 U/L Normal 40-129 [facility] Comment on above: Performed By: #### L 100.0100, L503.6550, L500.4050, L503.6030 #### [facility] [address] [place], [address] ALT [Catalytic activity/Vol] 20 U/L Normal <=46 [facility] Comment on above: Performed By: #### L 100.0100, L503.6550, L500.4050, L503.6030 #### [facility] [address] [place], [address] AST [Catalytic activity/Vol] 21 U/L Normal <=37 [facility] Comment on above: Performed By: #### L 100.0100, L503.6550, L500.4050, L503.6030 #### [facility] [address] [place], [address] Bilirubin [Mass/Vol] 0.61 mg/dL Normal 0.00-1.30 [facility] Comment on above: Performed By: #### L 100.0100, L503.6550, L500.4050, L503.6030 #### [facility] [address] [place], [address] BUN/CRE 31.3 RATIO High 10-20 [facility] Comment on above: Performed By: #### L 100.0100, L503.6550, L500.4050, L503.6030 #### [facility] [address] [place], [address] Calcium [Mass/Vol] 9.3 mg/dL Normal 7.6-11.0 [facility] Comment on above: Performed By: #### L 100.0100, L503.6550, L500.4050, L503.6030 #### [facility] [address] [place], [address] Chloride [Moles/Vol] 105 mmol/L Normal 98-108 [facility] Comment on above: Performed By: #### L 100.0100, L503.6550, L500.4050, L503.6030 #### [facility] [address] [place], [address] CO2 [Moles/Vol] 24.2 mmol/L Normal 21.0-32.0 [facility] Comment on above: Performed By: #### L 100.0100, L503.6550, L500.4050, L503.6030 #### [facility] [address] [place], [address] Creatinine [Mass/Vol] 1.27 mg/dL High 0.70-1.20 [facility] Comment on above: Performed By: #### L 100.0100, L503.6550, L500.4050, L503.6030 #### [facility] [address] [place], [address] GAP 11 Normal 5-15 [facility] Comment on above: Performed By: #### L 100.0100, L503.6550, L500.4050, L503.6030 #### [facility] [address] [place], [address] GFR/1.73 sq M.predicted among non-blacks MDRD (S/P/Bld) [Vol rate/Area] 55 mL/min/{1.73_m2} Low >60 [facility] Comment on above: Result Comment: mL/m in/1.73m2 CKD-EPI Creatinine Equation (2020) Performed By: #### L 100.0100, L503.6550, L500.4050, L503.6030 #### [facility] [address] [place], [address] Globulin (S) [Mass/Vol] 2.7 g/dL Normal 2.2-4.2 [facility] Comment on above: Performed By: #### L 100.0100, L503.6550, L500.4050, L503.6030 #### [facility] [address] [place], [address] Glucose [Mass/Vol] 84 mg/dL Normal 70-99 [facility] Comment on above: Performed By: #### L 100.0100, L503.6550, L500.4050, L503.6030 #### [facility] [address] [place], [address] Potassium [Moles/Vol] 4.8 mmol/L Normal 3.3-5.1 [facility] Comment on above: Performed By: #### L 100.0100, L503.6550, L500.4050, L503.6030 #### [facility] [address] [place], [address] Sodium [Moles/Vol] 140 mmol/L Normal 133-145 [facility] Comment on above: Performed By: #### L 100.0100, L503.6550, L500.4050, L503.6030 #### [facility] [address] [place], [address] T PROT 6.9 g/dL Normal 5.9-8.4 [facility] Comment on above: Performed By: #### L 100.0100, L503.6550, L500.4050, L503.6030 #### [facility] [address] [place], [address] Urea nitrogen [Mass/Vol] 40 mg/dL High 4-19 [facility] Comment on above: Performed By: #### L 100.0100, L503.6550, L500.4050, L503.6030 #### [facility] [address] [place], [place], [address] Eosinophil percentageOrdered By: Shoshana Ulrich on 07-24-2024 Eosinophils/100 WBC (Bld) 2.2 % 0-5 [facility] Erythrocyte distribution wid th ratioOrdered By: Shoshana Ulrich on 07-24-2024 Erythrocyte distribution width (RBC) [Ratio] 15.0 % High 11.6-14.6 [facility] Erythrocyte distribution wid th standard deviationOrdered By: Shoshana Ulrich on 07-24-2024 Erythrocyte distribution width (RBC) [Entitic vol] 55.0 fL High 35.1-43.9 [facility] Ferritinon 07-24-2024 Ferritin [Mass/Vol] 81 ng/mL Normal 37-417 [facility] Comment on above: Performed By: #### L 100.0100, L503.6550, L500.4050, L503.6030 #### [facility] [address] [place], [place], [id number] GFR/1.73 sq M.predicted sandhya g non-blacks MDRD (S/P/Bld) [Vol rate/Area]Ordered By: Shoshana Ulrich on 07-24-2024 Estimated GFR (MDRD) Non-Af Amer 55 Low >60 [facility] Comment on above: mL/min/1.73m2 CKD-EP I Creatinine Equation (2020) Hematocrit Auto (Bld) [Volum e fraction]Ordered By: Shoshana Ulrich on 07-24-2024 Hematocrit (Bld) [Volume fraction] 38.2 % Low 40-54 [facility] Hemoglobin measurementOrdere d By: Shoshana Ulrich on 07-24-2024 Hemoglobin (Bld) [Mass/Vol] 12.5 g/dL Low 13.0-16.5 [facility] Immature granulocytes/100 WB C Auto (Bld)Ordered By: Shoshana Ulrich on 07-24-2024 Immature granulocytes/100 WBC (Bld) 1.200 % High 0.0-0.9 [facility] Comment on above: IG% - Immature Granu locytes (promyelocytes, myelocytes and metamyelocytes) > 1% indicates that a LEFT SHIFT is Present. Iron (Unsp spec) [Mass/Mass] Ordered By: Shoshana Ulrich on 07-24-2024 Iron [Mass/Vol] 119 ug/dL 65-175 [facility] Iron saturation [Mass fracti on]Ordered By: Shoshana Ulrich on 07-24-2024 Iron Saturation 37.0 % 9-55 [facility] Iron+Iron Binding Capacityon 07-24-2024 Iron [Mass/Vol] 119 ug/dL Normal 65-175 [facility] Comment on above: Performed By: #### L 100.0100, L503.6550, L500.4050, L503.6030 #### [facility] [address] [place], [address] IRON SATURATION 37.0 Normal 9-55 [facility] Comment on above: Performed By: #### L 100.0100, L503.6550, L500.4050, L503.6030 #### [facility] [address] [place], [address] TIBC 322 ug/dL Normal 250-450 [facility] Comment on above: Performed By: #### L 100.0100, L503.6550, L500.4050, L503.6030 #### [facility] [address] [place], [address] UIBC 203 ug/dL Low 228-428 [facility] Comment on above: Performed By: #### L 100.0100, L503.6550, L500.4050, L503.6030 #### [facility] [address] [place], [address] Laboratory - Chemistry and C hemistry - challengeOrdered By: Shoshana Ulrich on 07-24-2024 AST [Catalytic activity/Vol] 21 U/L <38 [facility] Lymphocytes Auto (Unsp spec) [#/Vol]Ordered By: Shoshana Ulrich on 07-24-2024 Lymphocytes (Bld) [#/Vol] 0.98 10*3/uL 0.83-4.51 [facility] Lymphocytes/100 WBC Auto (Un sp spec)Ordered By: Shoshana Ulrich on 07-24-2024 Lymphocytes/100 WBC (Bld) 12.7 % Low 19-41 [facility] MCV (mean corpuscular volume ) determinationOrdered By: Shoshana Ulrich on 07-24-2024 MCV (RBC) [Entitic vol] 99.0 fL High 80-94 [facility] Mean corpuscular hemoglobin (MCH) determinationOrdered By: Shoshana Ulrich on 07-24-2024 MCH (RBC) [Entitic mass] 32.4 pg High 27.0-32.0 [facility] Mean corpuscular hemoglobin concentration (MCHC) determinationOrdered By: Shoshana Ulrich on 07-24-2024 MCHC (RBC) [Mass/Vol] 32.7 g/dL 32-36 [facility] Mean platelet volume determi nationOrdered By: Shoshana Ulrich on 07-24-2024 Platelet mean volume (Bld) [Entitic vol] 10.7 fL 6.2-12.0 [facility] Monocyte percentageOrdered B y: Shoshana Ulrich on 07-24-2024 Monocytes/100 WBC (Bld) 7.7 % 0-10 [facility] Neutrophil percentageOrdered By: Shoshana Ulrich on 07-24-2024 Neutrophils/100 WBC (Bld) 75.7 % High 47-70 [facility] No Panel InformationOrdered By: Shoshana Ulrich on 07-24-2024 Unsaturated Iron Binding Capacity 203 ug/dL Low 228-428 [facility] Nucleated red blood cell per centageOrdered By: Shoshana Ulrich on 07-24-2024 Nucleated RBC/100 WBC (Bld) [Ratio] 0 % 0-5 [facility] Platelet countOrdered By: Paul Ulrich on 07-24-2024 Platelets (Bld) [#/Vol] 271 10*3/uL 150-450 [facility] Potassium (Unsp spec) [Mass/ Vol]Ordered By: Shoshana Ulrich on 07-24-2024 Potassium [Moles/Vol] 4.8 mmol/L 3.3-5.1 [facility] RBC Auto (Bld) [#/Vol]Ordere d By: Shoshana Ulrich on 07-24-2024 RBC (Bld) [#/Vol] 3.86 10*6/uL Low 4.6-6.2 [facility] Serum creatinine measurement (mass/volume)Ordered By: Shoshana Ulrich on 07-24-2024 Creatinine [Mass/Vol] 1.27 mg/dL High 0.70-1.20 [facility] Serum globulin measurementOr dered By: Shoshana Ulrich on 07-24-2024 Globulin (S) [Mass/Vol] 2.7 g/dL 2.2-4.2 [facility] Serum glucose measurement (m ass/volume)Ordered By: Shoshana Ulrich on 07-24-2024 Glucose [Mass/Vol] 84 mg/dL 70-99 [facility] Serum or plasma alanine tavarez otransferase (ALT) measurementOrdered By: Shoshana Ulrich on 07-24-2024 ALT [Catalytic activity/Vol] 20 U/L <47 [facility] Serum or plasma albumin marlin urement (mass/volume)Ordered By: Shoshana Ulrich on 07-24-2024 Albumin [Mass/Vol] 4.2 g/dL 3.4-4.8 [facility] Serum or plasma albumin/glob ulin mass ratioOrdered By: Shoshana Ulrich on 07-24-2024 Albumin/Globulin [Mass ratio] 1.5 {ratio} 0.9-2.4 [facility] Serum or plasma alkaline erin sphatase measurementOrdered By: Shoshana Ulrich on 07-24-2024 ALP [Catalytic activity/Vol] 82 U/L 40-129 [facility] Serum or plasma calcium marlin urement (mass/volume)Ordered By: Shoshana Ulrich on 07-24-2024 Calcium [Mass/Vol] 9.3 mg/dL 7.6-11.0 [facility] Serum or plasma ferritin janice surement (mass/volume)Ordered By: Shoshana Baileymac on 07-24-2024 Ferritin [Mass/Vol] 81 ng/mL 37-417 [facility] Serum or plasma urea nitroge n measurement (mass/volume)Ordered By: Shoshana Ulrich on 07-24-2024 Urea nitrogen [Mass/Vol] 40 mg/dL High 4-19 [facility] Sodium levelOrdered By: Dario Ulrich on 07-24-2024 Sodium [Moles/Vol] 140 mmol/L 133-145 [facility] Total proteinOrdered By: Marlon light Lynnmac on 07-24-2024 Protein [Mass/Vol] 6.9 g/dL 5.9-8.4 [facility] White blood cell (WBC) count Ordered By: Shoshana Ulrich on 07-24-2024 WBC (Bld) [#/Vol] 7.7 10*3/uL 4.4-11.0 [facility] Neurology Visit Reporton Neurology Visit Report [facility] [address], [address] [place] [address] OFFICE VISIT Date of Service: 07/13/24 MR#: [id number] Acct: [id number] Name: DORIAN CRAMER Rep #: [id number] : 1935 Provider: Dr. Jose weber MD Age/Sex: 89/M Location: [facility] Status: Signed HPI HPI Chief Complaint: [facility] Care Details: The patient is a 89-year-old left handed male who presents to [facility]. He was referred 06/11/[address] Girish Rucker with [facility] for genital dysesthesia. This patient presents by himself for evaluation of genital dysesthesia. This gentleman tells me that he has had approximately 2 years of genital burning type of sensation. He has been evaluated for dermatological problems but various therapies and medications such as injections, anti-inflammatory agents, antifungal and antibacterial agents have uniformly failed. Some agents have actually exacerbated her produced a reaction involving the skin rather than resolving his problem. I do note that the patient has advanced lumbar spondylosis. Images from 2021 are available on the radiology file. I personally reviewed the images of the lumbar spine note that he does have marked spondylosis and scoliosis. He has high-grade stenoses at multiple levels. This has been a cause for significant back pain and pain radiating into the legs and feet. Interestingly he complains of a burning type of pain particularly occurring at night of the feet. Burning type paresthesias of feet are relatively common in patients older than 80 years old in my experience. There are wide variety of causes for small fiber neuropathy in this age group which include diabetes, autoimmune diseases, vitamin deficiencies such as B12 or folate or pyridoxine and other causes too numerous to mention at this point. It seems that the sensations in feet and scrotum may be similar in the patient's estimation. It is also interesting to note that the patient had undergone a series of 21 lumbar injections in attempt to alleviate pain 2 to 3 years ago. Lumbar injections often involve blocking sensation of pain which may include sympathetic blockade's. Speaking from a theoretical point of view, it is possible that the patient's burning dysesthesia may be related to sacral plexopathy. He certainly has extensive enough lumbar degenerative disease to implicate sensory pathways. This does not appear to be necessarily an exclusive pudendal nerve problem. (Similar symptoms are sometimes experienced by competitive bicycle riders). Patient does not have urinary incontinence although he may have some degree of urgency. He does have erectile dysfunction. He does not have fecal incontinence and he does not have any sensations that are abnormal with regard to the anus. Regions of interest appear to be related to sacral nerve 2 3 4. ROS: Limited review of system is related to the findings listed above in history of present illness. Exam Const Other: BP 130/74 pulse 68 respiration 16 temperature 97.8 O2 sat 96%. BMI is 23.2. Neurologic examination: Mental status: Patient is awake alert oriented x 3. Memory grossly intact. Language capabilities normal. Insight judgment normal. Mood and affect appropriate. CN II-XII: Vision intact. Pupils equal and round. Extraocular muscles appear intact. Motor and sensory function of face appear intact. Hearing swallowing phonation tongue normal. No abnormal sensation on face. Motor exam: Normal bulk tone and strength of upper extremities. Lower extremities appear to be limited due to deconditioning weakness and chronic lumbar spondylosis with and decreased strength of hip flexors and extensors. Patient demonstrates a Rake sign and attempt to rise to standing position. He is ambulatory. Cerebellar testing showed no cogwheeling rigidity tremor bradykinesia or ataxia. Reflexes: Trace at biceps absent at knees absent in ankles. Toes down. Sensory exam upper extremities intact. Lower extremity sensory exam shows the patient has a definite decreased vibratory sense and tactile sense in the foot. Left leg only examined at this time. (Patient is wearing compression socks because of vasculopathy of lower extremities). Patient reports burning type sensation along the soles of both feet at this time. Skin of the feet appears intact. No obvious redness noted. Examination of the genitalia: Patient notes mild burning sensation involving scrotum and underside of penis at this time. No difficulty in the perineum or anus noted. Skin appears to be not inflamed and relatively normal in color and appearance. No coarsening of the skin identified involving penis or scrotum. Patient does have a few 1 cm sized inguinal nodes in the inguinal canals bilaterally. These lymph nodes are associated with lower extremity such as the feet. Examination (more content not included)... Normal [facility] MR/BMS.David 06-26-2024 MR/BMS.[facility] [address] [place] [address] OFFICE VISIT Date of Service: 06/26/24 MR#: [id number] Acct: [id number] Name: DORIAN CRAMER Rep #: [id number] : 1935 Provider: AARON Gonzales Age/Sex: 89/M Location: [facility] Status: Signed Intake Vital Signs 06/20/24 16:05 06/22/24 08:55 06/26/24 16:19 Height 5 ft 8 in 5 ft 8 in Weight: 153 lb 153 lb BMI 23.2 BP 160/91 H 144/71 H Blood Pressure Location Lt brachial Position Sitting Respiration 16 16 Pulse 71 76 Pulse Source Monitor Temp 97.5 F L 97.8 F Temp Source Oral Temporal Pulse Oximetry (%) 99 94 Oxygen Delivery Method room air Intake Visit Reasons: NEW PATIENT : ER FU Is patient in pain?: No Allergies ibuprofen (From Motrin) Allergy (Verified 06/26/24 16:21) Swelling Medications ???Medication ???Instructions ???Recorded ???Confirmed ???Type albuterol sulfate 90 mcg/actuation 1 puff inhalation Q4H PRN 06/26/24 History aerosol inhaler sob/wheezing amlodipine 5 mg tablet 5 mg PO DAILY 07/02/22 06/26/24 Hi story artifi.tears(hypromellose)( PF) 1.7 1 drp EACH EYE DAILY PRN dry eye s 09/19/23 06/26/24 History % eye drops with applicator nystatin 100,000 unit/gram topical 1 applic topical 4X/DAY PRN skin 09/19/23 06/26/24 History cream irritation oxybutynin chloride 10 mg 10 mg PO DAILY 09/19/23 06/26/24 H istory tablet,extended release 24 hr apixaban 5 mg (74 tabs) tablets in See Rx Instructions PO .COMPLEX 06/20/24 06/26/24 Rx a dose pack ([employer] DVT-PE Treat #74 tabs 30D Start) Have you fallen in the past year?: No PFSH Medical History Alcohol use Prostate disease History of echocardiogram Enlarged prostate Hypertension Shoulder pain Hemorrhoid Lung disease History of edema 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 Wears glasses Wears hearing aid in both ears Cancer Alcohol abuse Hx of gout Heartburn CPAP (continuous positive airway pressure) dependence Shortness of breath on exertion Smoker Emphysema, unspecified Hypertension Restless legs Injury of back Surgical History History of hand surgery S/P insertion of spinal cord stimulator History of varicose vein stripping Hx of myringotomy History of parotidectomy History of esophagogastroduodenoscopy (EGD) History of cystoscopy Hx of basal cell carcinoma excision Hx of finger joint replacement Hx of decompressive lumbar laminectomy Family History (Updated 06/26/24 @ 16:16 by Mary Vaca) Other AD (Alzheimer's disease) Cancer Social History (Updated 06/26/24 @ 16:19 by Mary Vaca) household members: spouse housing: house Smoking Status: Heavy Smoker (>10/day) alcohol intake: former substance use type: does not use HPI HPI HPI: DORIAN CRAMER, is a 89 M who presents to the office today for evaluation and management of extensive RLE DVT as referred from the ER. About 3 weeks ago, he noticed increased RLE edema but did not have any associated pain, redness, or excess warmth so he continued to monitor for improvement at home. He then had a podiatry appointment 06/21 and was sent from that appt for a stat duplex which revealed RLE DVT up to the level of the common femoral vein and he was then referred to the ER who initiated Eliquis. He has been taking Eliquis exactly as directed and has not had any adverse bleeding or other side effects so far. He has not noticed much improvement in his RLE edema to this point; however, it is not causing significant pain and is not inhibiting his ambulation. He is not currently wearing compression. He has some compression hose at home but is not sure they will fit. He denies prior history of VTE. He denies any preceding illness, injury, travel, or otherwise decreased activity. He denies any personal history of malignancy, is UTD on screening as had colonoscopy last year which was negative. He denies any red flag signs/symptoms such as new cough, SOB, hoarseness, difficulty swallowing, bloody stools or urine, change in bowel habits, night sweats, persistent ABD pain, unintentional weight loss, or any other symptoms of concern. He denies any history of falls, but does note he is a bit unsteady due to chronic L foot/ankle arthritis, utilizes a cane. He does report a history of GI bleed, this was due to bleeding polyps which [place]. [place] [facility] [place]; has not had recurrence. ROS General General: No weight change, appetite, fatigue, colon cancer, breast cancer or weakness HEENT HEENT: No difficulty swallowing, eye injury, eye surgery, swollen glands or hoarseness Endo (more content not included)... [facility] Emergency Department Summary on 06-20-2024 Emergency Department Summary [facility] Medical Records Department [address] [place] [address] Emergency Department Summary 06/20/24 MR#: [id number] Acct: [id number] Name: DORIAN CRAMER Rep #: [id number] : 1935 89 From: Marco Antonio Garay DO PCP: Dr. Shoshana Ulrich MD Status:DEP ER Location: ED HPI History of Present Illness Chief Complaint: Lower Extremity Injury Narrative Narrative: Chief complaint and HPI: Right lower extremity DVT. 89-year-old male with with past medical history of HTN, chronic back pain, and chronic anemia presents for evaluation of right lower extremity DVT. Patient states for the past several days he has had right lower extremity swelling. He denies any pain. Denies any fever, chills, chest pain, shortness of breath, abdominal pain. Patient states that he went and saw his die developer today who ordered bilateral venous Doppler ultrasounds to assess for DVT. Patient is positive for right lower extremity DVT and therefore was sent to the emergency department for treatment. Review of systems: See HPI Medications: As listed on the chart Allergies: As listed on the chart PFSH: Per chart Vital signs: As listed on the chart. Reviewed. Physical exam: Gen: A O x3, NAD Head: Normocephalic, atraumatic Eyes: No sclera icterus, conjunctiva clear ENT: Moist mucous membranes Neck: Trachea midline, No JVD CV: RRR, no murmurs Resp: Lungs CTA BL, no w/r/c GI: Abd soft, non-distended, non-tender, no r/r/g Musc: Full ROM, no deformity, right lower extremity swollen compared to the left, left lower extremity without edema, femoral/DP/PT pulse plus 2 out of 4 bilaterally Skin: Warm, dry Neuro: Alert, oriented, grossly intact, sensation intact Psych: Cooperative, appropriate mood and affect 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 Prostate disease Restless legs Shortness of breath on exertion Shoulder pain Smoker Wears glasses Wears hearing aid in both ears Home Medications ???Medication ???Instructions ???Recorded ???Last Taken ???Type albuterol sulfate 90 mcg/actuation 1 puff inhalation Q4H PRN 04/26/ 22 Unknown History aerosol inhaler sob/wheezing amlodipine 5 mg tablet 5 mg PO DAILY 07/02/22 09/18/23 Hi story oxycodone 5 mg capsule 5 mg PO Q6H PRN pain 3 days #10 09/18/23 Rx caps artifi.tears(hypromellose)( PF) 1.7 1 drp EACH EYE DAILY PRN dry eye s 09/19/23 Unknown History % eye drops with applicator nystatin 100,000 unit/gram topical 1 applic topical 4X/DAY PRN skin 09/19/23 Unknown History cream irritation oxybutynin chloride 10 mg 10 mg PO DAILY 09/19/23 Unknown Hi story tablet,extended release 24 hr simethicone 80 mg chewable tablet 80 mg PO BID-QID PRN abdominal Unknown Rx (Gas Relief (simethicone)) distention and gas #120 tabs apixaban 5 mg (74 tabs) tablets in See Rx Instructions PO .COMPLEX 06/20/24 Unknown Rx a dose pack (Eliquis DVT-PE Treat #74 tabs 30D Start) Allergy/AdvReac Type Severity Reaction Status Date / Time ibuprofen (From Motrin) Allergy Swelling Verified 06/20/24 16:07 Family History no significant family his Surgical History History of cystoscopy History of esophagogastroduodenoscopy (EGD) History of hand surgery History of parotidectomy History of varicose vein stripping Hx of basal cell carcinoma excision Hx of decompressive lumbar laminectomy Hx of finger joint replacement Hx of myringotomy S/P insertion of spinal cord stimulator Social History household members: spouse housing: house Smoking Status: Current every day smoker tobacco type: cigarettes alcohol intake: former substance use type: does not use EXAM Physical Exam Const Vital Signs: 06/20/24 16:05 06/20/24 19:29 06/20/24 19:30 Temperature 97.5 F L 98.1 F Temperature Source Oral Pulse Rate 71 82 82 Respiratory Rate 16 16 16 Blood Pressure 160/91 H 140/78 H 140/78 H Blood Pressure Mean 114 98 98 Pulse Ox 99 98 98 Oxygen Delivery Method Room Air Room Air MDM MDM MDM Narrative Medical decision making narrative: 89-year-old male with with past medical history of HTN, chronic back pain, and chronic anemia presents for evaluation of right lower extremity DVT. Venous duplex ultrasound shows acute deep venous thrombosis in the CFV, FV, P (more content not included)... [facility] Venous Duplex US - Omar Extre [facility] 06-20-2024 Venous Duplex US - Omar Extrem [facility] [address] [place] [address] Venous Duplex US - Omar Extrem 06/20/24 1545 MR#: [id number] Acct: [id number] Name: DORIAN CRAMER Rep #: [id number] : 1935 89 From: Santana Mason MD Attending Dr: Dr. Sai Salazar, DPM Status: REG CLI Ordering Dr: Sai Salazar DPM Date: 06/20/24 Location: CVS Sex: M C Admitted: Reason For Study: Right leg swelling RIGHT LEFT GSV is normal. GSV is normal. Acute deep vein thrombosis is noted in the CFV is compressible, spontaneous, phasic, CFV, FV,PopV, T/P Trunk and GastrocV. It is competent, and demonstrates normal dilated and NONCOMPRESSIBLE. augmentation. Thrombus filled varicose vein noted in the FV is compressible, spontaneous, phasic, right mid-distal thigh. competent and demonstrates normal PTV is compressible. augmentation. RT PerV is compressible. POP V is compressible, phasic, and Procedure INCOMPETENT for greater than 1.0 second. This is a venous duplex using B-mode, color T/P Trunk is compressible. flow and spectral Doppler. PTV is compressible. Exam performed in department. LT PerV is compressible. A preliminary report was called and/or faxed to [facility]. Patient taken to ER for treatment. VL/Venous Duplex US - Omar Extrem Interpretation Summary Acute deep vein thrombosis noted in the right common femoral vein, femoral vein, popliteal vein, tibioperoneal trunk vein, gastrocnemius vein. Thrombus filled varicose vein noted in the right mid-distal thigh. Deep veins of the left lower extremity are patent and compressible segmentally. There is no evidence of left lower extremity deep vein thrombosis. The bilateral great saphenous veins appear patent and compressible segmentally. Ordering Physician: Sai Salazar Referring Physician: Shoshana Ulrich Performed By: Em Martinez RVT 06/21/24 1714 Date Santana Mason MD CC: DPM Dr. Sai Salazar; Dr. Shoshana Ulrich MD Date Dictated: 06/20/24 1545 Date Transcribed: 06/21/241713 Kitchen Steward: Signed [facility] Emergency Department Summary on 05-26-2024 Emergency Department Summary [facility] Medical Records Department [address] [place] [address] Emergency Department Summary 05/26/24 MR#: [id number] Acct: [id number] Name: DORIAN CRAMER Rep #: [id number] : 1935 88 From: Manju WALKER PCP: Dr. Shoshana Ulrich MD Status:DEP ER Location: ED HPI History of Present Illness Chief Complaint: Upper Extremity Injury Narrative Narrative: 88-year-old male slipped in his kitchen 2 days ago hitting his left shoulder on the ground. No head injury or LOC. He has had shoulder pain since then prompting him to come in. He has bruising on the elbow but denies pain in the elbow or rest of the arm. No weakness or numbness or tingling. He is not on blood thinners. 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 Prostate disease Restless legs Shortness of breath on exertion Shoulder pain Smoker Wears glasses Wears hearing aid in both ears Home Medications ???Medication ???Instructions ???Recorded ???Last Taken ???Type albuterol sulfate 90 mcg/actuation 1 puff inhalation Q4H PRN 09/08/21 Unknown History aerosol inhaler sob/wheezing amlodipine 5 mg tablet 5 mg PO DAILY 07/02/22 09/18/23 History oxycodone 5 mg capsule 5 mg PO Q6H PRN pain 3 days #10 11/03/22 09/18/23 Rx caps artifi.tears(hypromellose)( PF) 1.7 1 drp EACH EYE DAILY PRN dry eyes 09/19/23 Unknown History % eye drops with applicator nystatin 100,000 unit/gram topical 1 applic topical 4X/DAY PRN skin 09/19/23 Unknown History cream irritation oxybutynin chloride 10 mg 10 mg PO DAILY 09/19/23 Unknown History tablet,extended release 24 hr simethicone 80 mg chewable tablet 80 mg PO BID-QID PRN abdominal 12/06/23 Unknown Rx (Gas Relief (simethicone)) distention and gas #120 tabs Allergy/AdvReac Type Severity Reaction Status Date / Time ibuprofen (From Motrin) Allergy Swelling Verified 05/26/24 11:55 Surgical History History of cystoscopy History of esophagogastroduodenoscopy (EGD) History of hand surgery History of parotidectomy History of varicose vein stripping Hx of basal cell carcinoma excision Hx of decompressive lumbar laminectomy Hx of finger joint replacement Hx of myringotomy S/P insertion of spinal cord stimulator Social History household members: spouse housing: house Smoking Status: Current every day smoker tobacco type: cigarettes alcohol intake: former substance use type: does not use ROS ROS ED ROS Narrative CVS: Negative for chest pain. Respiratory: Negative for shortness of breath. Skin: Negative for wounds or abrasions. Musc: Positive for left shoulder pain, trauma. EXAM Physical Exam Narrative Exam Narrative: CONST: Patient sitting in no acute distress. EYES: Normal inspection. HEAD: Head normocephalic atraumatic. NECK: Normal inspection. RESP: No respiratory distress, CTAB. No chest wall tenderness. CVS: Regular rate and rhythm, no murmur, no gallop. Back: Normal inspection, no midline tenderness. SKIN: Color normal, no rash, warm, dry, intact. EXTREMITIES: Normal appearance of upper and lower extremities. Shortness appear symmetric. Tender over anterior lateral shoulder without deformity or crepitus. No tenderness of the rest of the humerus elbow forearm wrist or hand. He can range his shoulder above 90 degrees with some pain. 5/5 strength, normal sensation, 2+ radial pulses. No tenderness of lower extremities, 2+ DP pulses. Normal gait. NEURO: Alert and answering questions appropriately. PSYCH: Normal affect. Const Vital Signs: 05/26/24 11:52 Temperature 96.6 F L Temperature Source Temporal Pulse Rate 85 Respiratory Rate 18 Blood Pressure 140/80 H Blood Pressure Mean 100 Pulse Ox 98 Oxygen Delivery Method Room Air MDM MDM MDM Narrative Medical decision making narrative: 88-year-old male had a mechanical fall injuring his left shoulder. No head injury. He is awake and alert with stable vital signs. He is tender over the left shoulder and neurovascularly intact. No other injuries noted. X-ray of the shoulder is negative. Patient was counseled to use ice, Tylenol, and follow-up with his orthopedist if pain persist. He was discharged in stable condition. Differential includes shoulder contusion, fracture, dislocation, rotator cuff injury ED attending interpretation of the left (more content not included)... [facility] Shoulder min 2 Viewson 05-26 Shoulder min 2 Views [facility] Imaging [facility] [address] [place] [address] Shoulder min 2 Views MR#: [id number] Acct: [id number] Name: DORIAN CRAMER Rep #: [id number] : 1935 M 88 From: Regina Steiner MD PCP: Dr. Shoshana Ulrich MD Status: REG ER Study: Shoulder min 2 Views Date of Exam: 05/26/24 Exam# [id number] Ordering Dr: Mnaju Zhong [id number] INDICATION: pain EXAMINATION/TECHNIQUE: X-RAY - LEFT XR Shoulder Min 2 Views 4 VIEWS COMPARISON: Chest radiograph dated July 21, 2023 FINDINGS: SOFT TISSUES: No soft tissue swelling or gas. There are vascular calcifications. No radiopaque foreign body. BONES/JOINTS: No acute fracture or subluxation.. Normal alignment. There are degenerative changes of the acromioclavicular joint. No sclerotic or destructive changes observed. There are epidural stimulator leads terminating within the expected region of the mid thoracic spinal canal. RAD/Shoulder min 2 Views IMPRESSION: Degenerative changes of the acromioclavicular joint. Electronically Signed: Regina Steiner MD at 13:11 EST , CC: Dr. Shoshana Ulrich MD; AARON Benítez Kitchen Steward: Signed [facility] Absolute neutrophil countOrd ered By: Shoshana Ulrich on 04-17-2024 Neutrophils (Bld) [#/Vol] 4.1 10*3/uL 2.0-7.7 [facility] Albumin to globulin ratioOrd ered By: Shoshana Ulrich on 04-17-2024 Albumin/Globulin [Mass ratio] 1.1 {ratio} 0.9-2.4 [facility] Basophil percentageOrdered B y: Shoshana Ulrich on 04-17-2024 Basophils/100 WBC (Bld) 0.7 % 0-1 [facility] Bilirubin, totalOrdered By: Shoshana Ulrich on 04-17-2024 Bilirubin [Mass/Vol] 0.40 mg/dL 0.20-1.00 [facility] Comment on above: For patients on eltr ombopag therapy, use of Dimension [place] TBIL is not recommended. Blood urea nitrogen (BUN)/cr eatinine ratioOrdered By: Shoshana Ulrich on 04-17-2024 Urea nitrogen/Creatinine [Mass ratio] 20.0 mg/mg 10-20 [facility] CBC W/Diff, Automatedon 12-0 Anisocytosis Ql (Bld) 1+ [facility] Comment on above: Performed By: #### L 500.4050, L503.6030, L100.0100, L503.6550 #### [facility] [address] [place], [address] PLT MORPH LARGE [facility] Comment on above: Performed By: #### L 500.4050, L503.6030, L100.0100, L503.6550 #### [facility] [address] [place], [place], [id number] Carbon dioxide measurementOr dered By: Shoshana Ulrich on 04-17-2024 CO2 [Moles/Vol] 25.0 mmol/L 21.0-32.0 [facility] Chloride measurementOrdered By: Shoshana Ulrich on 04-17-2024 Chloride [Moles/Vol] 108 mmol/L High 98-107 [facility] Comprehensive Metabolic Prof ilon 04-17-2024 Albumin [Mass/Vol] 3.6 g/dL Normal 3.2-5.0 [facility] Comment on above: Performed By: #### L 500.4050, L503.6030, L100.0100, L503.6550 #### [facility] [address] [place], [address] Albumin/Globulin [Mass ratio] 1.1 {ratio} Normal 0.9-2.4 [facility] Comment on above: Performed By: #### L 500.4050, L503.6030, L100.0100, L503.6550 #### [facility] [address] [place], [address] ALK P 73 U/L Normal 45-117 [facility] Comment on above: Performed By: #### L 500.4050, L503.6030, L100.0100, L503.6550 #### [facility] [address] [place], [address] ALT [Catalytic activity/Vol] 19 U/L Normal 16-61 [facility] Comment on above: Performed By: #### L 500.4050, L503.6030, L100.0100, L503.6550 #### [facility] [address] [place], [address] AST [Catalytic activity/Vol] 18 U/L Normal 15-37 [facility] Comment on above: Performed By: #### L 500.4050, L503.6030, L100.0100, L503.6550 #### [facility] [address] [place], [address] Bilirubin [Mass/Vol] 0.40 mg/dL Normal 0.20-1.00 [facility] Comment on above: Result Comment: For patients on eltrombopag therapy, use of Dimension [place] TBIL is not recommended. Performed By: #### L 500.4050, L503.6030, L100.0100, L503.6550 #### [facility] [address] [place], [address] BUN/CRE 20.0 RATIO Normal 10-20 [facility] Comment on above: Performed By: #### L 500.4050, L503.6030, L100.0100, L503.6550 #### [facility] [address] [place], [address] CA,Total 8.8 mg/dL Normal 8.5-10.1 [facility] Comment on above: Performed By: #### L 500.4050, L503.6030, L100.0100, L503.6550 #### [facility] [address] [place], [address] Chloride [Moles/Vol] 108 mmol/L High 98-107 [facility] Comment on above: Performed By: #### L 500.4050, L503.6030, L100.0100, L503.6550 #### [facility] [address] [place], [address] CO2 [Moles/Vol] 25.0 mmol/L Normal 21.0-32.0 [facility] Comment on above: Performed By: #### L 500.4050, L503.6030, L100.0100, L503.6550 #### [facility] [address] [place], [address] Creatinine [Mass/Vol] 1.25 mg/dL Normal 0.70-1.30 [facility] Comment on above: Result Comment: The validity of the calculated GFR GFRAA in patients over 70 years has not been determined. Clinical correlation is essential. Performed By: #### L 500.4050, L503.6030, L100.0100, L503.6550 #### [facility] [address] [place], [address] EST GFR - AA 70 mL/min Normal >60 [facility] Comment on above: Result Comment: Afri can Micronesian GFR Calc Performed By: #### L 500.4050, L503.6030, L100.0100, L503.6550 #### [facility] [address] [place], [address] GAP 7 Normal 5-15 [facility] Comment on above: Performed By: #### L 500.4050, L503.6030, L100.0100, L503.6550 #### [facility] [address] [place], [address] GFR/1.73 sq M.predicted among non-blacks MDRD (S/P/Bld) [Vol rate/Area] 58 mL/min/{1.73_m2} Low >60 [facility] Comment on above: Result Comment: Non- GFR Calc Performed By: #### L 500.4050, L503.6030, L100.0100, L503.6550 #### [facility] [address] [place], [address] Globulin (S) [Mass/Vol] 3.4 g/dL Normal 2.2-4.2 [facility] Comment on above: Performed By: #### L 500.4050, L503.6030, L100.0100, L503.6550 #### [facility] [address] [place], [address] Glucose [Mass/Vol] 92 mg/dL Normal 74-106 [facility] Comment on above: Performed By: #### L 500.4050, L503.6030, L100.0100, L503.6550 #### [facility] [address] [place], [address] Potassium [Moles/Vol] 3.9 mmol/L Normal 3.5-5.1 [facility] Comment on above: Performed By: #### L 500.4050, L503.6030, L100.0100, L503.6550 #### [facility] [address] [place], [address] Sodium [Moles/Vol] 139 mmol/L Normal 136-145 [facility] Comment on above: Performed By: #### L 500.4050, L503.6030, L100.0100, L503.6550 #### [facility] [address] [place], [address] T PROT 7.0 g/dL Normal 6.4-8.2 [facility] Comment on above: Performed By: #### L 500.4050, L503.6030, L100.0100, L503.6550 #### [facility] [address] [place], [place], [id number] Urea nitrogen [Mass/Vol] 25 mg/dL High 7-18 [facility] Comment on above: Performed By: #### L 500.4050, L503.6030, L100.0100, L503.6550 #### [facility] [address] [place], [address] Eosinophil percentageOrdered By: Shoshana Ulrich on 04-17-2024 Eosinophils/100 WBC (Bld) 2.3 % 0-5 [facility] Erythrocyte distribution wid th ratioOrdered By: Shoshana Ulrich on 04-17-2024 Erythrocyte distribution width (RBC) [Ratio] 19.1 % High 11.6-14.6 [facility] Erythrocyte distribution wid th standard deviationOrdered By: Shoshana Ulrich on 04-17-2024 Erythrocyte distribution width (RBC) [Entitic vol] 68.1 fL High 35.1-43.9 [facility] Estimated glomerular filtrat ion rate (GFR) AmericanOrdered By: Shoshana Ulrich on 04-17-2024 Estimated GFR (MDRD) Amer 70 mL/min >60 [facility] Comment on above: GFR Calc Ferritinon 04-17-2024 Ferritin [Mass/Vol] 44 ng/mL Normal 26-388 [facility] Comment on above: Performed By: #### L 500.4050, L503.6030, L100.0100, L503.6550 #### [facility] [address] [place], [place], [id number] Ferritin measurementOrdered By: Shoshana Ulrich on 04-17-2024 Ferritin [Mass/Vol] 44 ng/mL 26-388 [facility] Glomerular filtration rate ( GFR) estimationOrdered By: Shoshana Ulrich on 04-17-2024 Estimated GFR (MDRD) Non-Af Amer 58 mL/min Low >60 [facility] Comment on above: Non- GFR Calc Glucose measurementOrdered B y: Shoshana Ulrich on 04-17-2024 Glucose [Mass/Vol] 92 mg/dL 74-106 [facility] Hematocrit Auto (Bld) [Volum e fraction]Ordered By: Shoshana Ulrich on 04-17-2024 Hematocrit (Bld) [Volume fraction] 38.2 % Low 40-54 [facility] Hemoglobin measurementOrdere d By: Shoshana Ulrich on 04-17-2024 Hemoglobin (Bld) [Mass/Vol] 12.0 g/dL Low 13.0-16.5 [facility] Immature granulocytes/100 WB C Auto (Bld)Ordered By: Shoshana Ulrich on 04-17-2024 Immature granulocytes/100 WBC (Bld) 0.500 % 0.0-0.9 [facility] Comment on above: IG% - Immature Granu locytes (promyelocytes, myelocytes and metamyelocytes) > 1% indicates that a LEFT SHIFT is Present. Iron (Unsp spec) [Mass/Mass] Ordered By: Shoshana Ulrich on 04-17-2024 Iron [Mass/Vol] 46 ug/dL Low 65-175 [facility] Iron saturation [Mass fracti on]Ordered By: Shoshananaedge Ulrich on 04-17-2024 Iron Saturation 14.8 % Low 15.0-55.0 [facility] Iron+Iron Binding Capacityon 04-17-2024 Iron [Mass/Vol] 46 ug/dL Low 65-175 [facility] Comment on above: Performed By: #### L 500.4050, L503.6030, L100.0100, L503.6550 #### [facility] [address] [place], [place], [id number] IRON SATURATION 14.8 Low 15.0-55.0 [facility] Comment on above: Performed By: #### L 500.4050, L503.6030, L100.0100, L503.6550 #### [facility] [address] [place], [address] TIBC 311 ug/dL Normal 250-450 [facility] Comment on above: Performed By: #### L 500.4050, L503.6085, L100.0100, L503.6507 #### [facility] [address] [place], [address] Laboratory - Chemistry and C hemistry - challengeOrdered By: Shoshana Ulrich on 04-17-2024 AST [Catalytic activity/Vol] 18 U/L 15-37 [facility] - Hematology and Cell countsOrdered By: Shoshana Ulrich on 04-17-2024 Anisocytosis Ql (Bld) 1+ [facility] Lymphocytes Auto (Unsp spec) [#/Vol]Ordered By: Shoshana Ulrich on 04-17-2024 Lymphocytes (Bld) [#/Vol] 0.83 10*3/uL 0.83-4.51 [facility] Lymphocytes/100 WBC Auto (Un sp spec)Ordered By: Shoshana Ulrich on 04-17-2024 Lymphocytes/100 WBC (Bld) 14.9 % Low 19-41 [facility] MCV (mean corpuscular volume ) determinationOrdered By: Shoshana Ulrich on 04-17-2024 MCV (RBC) [Entitic vol] 96.7 fL High 80-94 [facility] Mean corpuscular hemoglobin (MCH) determinationOrdered By: Shoshana Ulrich on 04-17-2024 MCH (RBC) [Entitic mass] 30.4 pg 27.0-32.0 [facility] Mean corpuscular hemoglobin concentration (MCHC) determinationOrdered By: Shoshana Ulrich on 04-17-2024 MCHC (RBC) [Mass/Vol] 31.4 g/dL Low 32-36 [facility] Mean platelet volume determi nationOrdered By: Shoshana Ulrich on 04-17-2024 Platelet mean volume (Bld) [Entitic vol] 10.8 fL 6.2-12.0 [facility] Monocyte percentageOrdered B y: Shoshana Ulrich on 04-17-2024 Monocytes/100 WBC (Bld) 8.5 % 0-10 [facility] Neutrophil percentageOrdered By: Shoshana Ulrich on 04-17-2024 Neutrophils/100 WBC (Bld) 73.1 % High 47-70 [facility] Nucleated red blood cell per centageOrdered By: Shoshana Ulrich on 04-17-2024 Nucleated RBC/100 WBC (Bld) [Ratio] 0 % 0-5 [facility] Platelet countOrdered By: Paul Ulrich on 04-17-2024 Platelets (Bld) [#/Vol] 206 10*3/uL 150-450 [facility] Platelet morphology finding Nom (Bld)Ordered By: Shoshana Ulrich on 04-17-2024 Platelet Morphology Comment LARGE [facility] Potassium measurementOrdered By: Shoshana Ulrich on 04-17-2024 Potassium [Moles/Vol] 3.9 mmol/L 3.5-5.1 [facility] RBC Auto (Bld) [#/Vol]Ordere d By: Shoshana Ulrich on 04-17-2024 RBC (Bld) [#/Vol] 3.95 10*6/uL Low 4.6-6.2 [facility] Serum anion gap measurementO rdered By: Shoshana Ulrich on 04-17-2024 Anion gap [Moles/Vol] 7 mmol/L 5-15 [facility] Serum globulin measurementOr dered By: Shoshana Ulrich on 04-17-2024 Globulin (S) [Mass/Vol] 3.4 g/dL 2.2-4.2 [facility] Serum or plasma alanine tavarez otransferase (ALT) measurementOrdered By: Shoshana Ulrich on 04-17-2024 ALT [Catalytic activity/Vol] 19 U/L 16-61 [facility] Serum or plasma albumin marlin urement (mass/volume)Ordered By: Shoshana Ulrich on 04-17-2024 Albumin [Mass/Vol] 3.6 g/dL 3.2-5.0 [facility] Serum or plasma alkaline erin sphatase measurementOrdered By: Shoshana Ulrich on 04-17-2024 ALP [Catalytic activity/Vol] 73 U/L 45-117 [facility] Serum or plasma calcium marlin urement (mass/volume)Ordered By: Shoshana Ulrich on 04-17-2024 Calcium [Mass/Vol] 8.8 mg/dL 8.5-10.1 [facility] Serum or plasma creatinine m easurement (mass/volume)Ordered By: Shoshana Ulrich on 04-17-2024 Creatinine [Mass/Vol] 1.25 mg/dL 0.70-1.30 [facility] Comment on above: The validity of the calculated GFR & GFRAA in patients over 70 years has not been determined. Clinical correlation is essential. Serum or plasma urea nitroge n measurement (mass/volume)Ordered By: Shoshana Ulrich on 04-17-2024 Urea nitrogen [Mass/Vol] 25 mg/dL High 11-30 [facility] Sodium levelOrdered By: Dario Ulrich on 04-17-2024 Sodium [Moles/Vol] 139 mmol/L 136-145 [facility] TIBCOrdered By: Shoshana norman on 04-17-2024 Total Iron Binding Capacity 311 ug/dL 250-450 [facility] Total proteinOrdered By: Marlon Ulrich on 04-17-2024 Protein [Mass/Vol] 7.0 g/dL 6.4-8.2 [facility] White blood cell (WBC) count Ordered By: Shoshana Ulrich on 04-17-2024 WBC (Bld) [#/Vol] 5.6 10*3/uL 4.4-11.0 [facility] Basic Metabolic Profile (BMP )on 02-13-2024 BUN/CRE 28.3 RATIO High 10-20 [facility] Comment on above: Performed By: #### L 100.0100, L503.6550, L500.4050, L503.6030 #### [facility] [address] [place], [place], [id number] CA,Total 9.0 mg/dL Normal 8.5-10.1 [facility] Comment on above: Performed By: #### L 100.0100, L503.6550, L500.4050, L503.6030 #### [facility] [address] [place], [address] Chloride [Moles/Vol] 105 mmol/L Normal 98-107 [facility] Comment on above: Performed By: #### L 100.0100, L503.6550, L500.4050, L503.6030 #### [facility] [address] [place], [address] CO2 [Moles/Vol] 29.0 mmol/L Normal 21.0-32.0 [facility] Comment on above: Performed By: #### L 100.0100, L503.6550, L500.4050, L503.6030 #### [facility] [address] [place], [address] Creatinine [Mass/Vol] 1.38 mg/dL High 0.70-1.30 [facility] Comment on above: Result Comment: The validity of the calculated GFR GFRAA in patients over 70 years has not been determined. Clinical correlation is essential. Performed By: #### L 100.0100, L503.6550, L500.4050, L503.6030 #### [facility] [address] [place], [address] EST GFR - AA 63 mL/min Normal >60 [facility] Comment on above: Result Comment: Afri can Micronesian GFR Calc Performed By: #### L 100.0100, L503.6550, L500.4050, L503.6030 #### [facility] [address] [place], [address] GAP 5 Normal 5-15 [facility] Comment on above: Performed By: #### L 100.0100, L503.6550, L500.4050, L503.6030 #### [facility] [address] [place], [address] GFR/1.73 sq M.predicted among non-blacks MDRD (S/P/Bld) [Vol rate/Area] 52 mL/min/{1.73_m2} Low >60 [facility] Comment on above: Result Comment: Non- GFR Calc Performed By: #### L 100.0100, L503.6550, L500.4050, L503.6030 #### [facility] [address] [place], [address] Glucose [Mass/Vol] 109 mg/dL High 74-106 [facility] Comment on above: Result Comment: Fast ing Glucose result from 100 to 125 mg/dL suggests IMPAIRED HOMEOSTASIS per A.D.A. criteria. Performed By: #### L 100.0100, L503.6550, L500.4050, L503.6030 #### [facility] [address] [place], [address] Potassium [Moles/Vol] 4.7 mmol/L Normal 3.5-5.1 [facility] Comment on above: Performed By: #### L 100.0100, L503.6550, L500.4050, L503.6030 #### [facility] [address] [place], [address] Sodium [Moles/Vol] 139 mmol/L Normal 136-145 [facility] Comment on above: Performed By: #### L 100.0100, L503.6550, L500.4050, L503.6030 #### [facility] [address] [place], [address] Urea nitrogen [Mass/Vol] 39 mg/dL High 7-18 [facility] Comment on above: Performed By: #### L 100.0100, L503.6550, L500.4050, L503.6030 #### [facility] [address] [place], [address] CBC-Complete Blood Cnt No Di ffon 02-13-2024 Erythrocyte distribution width (RBC) [Ratio] 17.7 % High 11.6-14.6 [facility] Comment on above: Performed By: #### L 100.0100, L503.6550, L500.4050, L503.6030 #### [facility] [address] [place], [address] Hematocrit (Bld) [Volume fraction] 37.2 % Low 40-54 [facility] Comment on above: Performed By: #### L 100.0100, L503.6550, L500.4050, L503.6030 #### [facility] [address] [place], [address] Hemoglobin (Bld) [Mass/Vol] 11.8 g/dL Low 13.0-16.5 [facility] Comment on above: Performed By: #### L 100.0100, L503.6550, L500.4050, L503.6030 #### [facility] [address] [place], [address] MCH (RBC) [Entitic mass] 28.1 pg Normal 27.0-32.0 [facility] Comment on above: Performed By: #### L 100.0100, L503.6550, L500.4050, L503.6030 #### [facility] [address] [place], [address] MCHC (RBC) [Mass/Vol] 31.7 g/dL Low 32-36 [facility] Comment on above: Performed By: #### L 100.0100, L503.6550, L500.4050, L503.6030 #### [facility] [address] [place], [address] MCV (RBC) [Entitic vol] 88.6 fL Normal 80-94 [facility] Comment on above: Performed By: #### L 100.0100, L503.6550, L500.4050, L503.6030 #### [facility] [address] [place], [address] Platelet mean volume (Bld) [Entitic vol] 9.6 fL Normal 6.2-12.0 [facility] Comment on above: Performed By: #### L 100.0100, L503.6550, L500.4050, L503.6030 #### [facility] [address] [place], [address] Platelets (Bld) [#/Vol] 190 10*3/uL Normal 150-450 [facility] Comment on above: Performed By: #### L 100.0100, L503.6550, L500.4050, L503.6030 #### [facility] [address] [place], [address] RBC (Bld) [#/Vol] 4.20 10*6/uL Low 4.6-6.2 [facility] Comment on above: Performed By: #### L 100.0100, L503.6550, L500.4050, L503.6030 #### [facility] [address] [place], [address] RDW SD 56.3 fl High 35.1-43.9 [facility] Comment on above: Performed By: #### L 100.0100, L503.6550, L500.4050, L503.6030 #### [facility] [address] [place], [address] WBC (Bld) [#/Vol] 6.5 10*3/uL Normal 4.4-11.0 [facility] Comment on above: Performed By: #### L 100.0100, L503.6550, L500.4050, L503.6030 #### [facility] [address] [place], [address] CBC W/Diff, Automatedon 12-15 Absolute Lymph 1.03 X10 3/uL Normal 0.83-4.51 [facility] Comment on above: Performed By: #### L 100.0100, L503.6550, L503.6075, L500.4050 #### [facility] [address] [place], [address] Absolute Neut 3.7 X10 3/uL Normal 2.0-7.7 [facility] Comment on above: Performed By: #### L 100.0100, L503.6550, L503.6075, L500.4050 #### [facility] [address] [place], [address] Basophils/100 WBC (Bld) 1.1 % High 0-1 [facility] Comment on above: Performed By: #### L 100.0100, L503.6550, L503.6075, L500.4050 #### [facility] [address] [place], [address] Eosinophils/100 WBC (Bld) 5.9 % High 0-5 [facility] Comment on above: Performed By: #### L 100.0100, L503.6550, L503.6075, L500.4050 #### [facility] [address] [place], [address] Erythrocyte distribution width (RBC) [Ratio] 15.6 % High 11.6-14.6 [facility] Comment on above: Performed By: #### L 100.0100, L503.6550, L503.6075, L500.4050 #### [facility] [address] [place], [address] Hematocrit (Bld) [Volume fraction] 34.0 % Low 40-54 [facility] Comment on above: Performed By: #### L 100.0100, L503.6550, L503.6075, L500.4050 #### [facility] [address] [place], [address] Hemoglobin (Bld) [Mass/Vol] 10.6 g/dL Low 13.0-16.5 [facility] Comment on above: Performed By: #### L 100.0100, L503.6550, L503.6075, L500.4050 #### [facility] [address] [place], [address] IG% 0.400 Normal 0.0-0.9 [facility] Comment on above: Result Comment: IG% - Immature Granulocytes (promyelocytes, myelocytes and metamyelocytes) > 1% indicates that a LEFT SHIFT is Present. Performed By: #### L 100.0100, L503.6550, L503.6075, L500.4050 #### [facility] [address] [place] [place], [address] Lymphocytes/100 WBC (Bld) 18.6 % Low 19-41 [facility] Comment on above: Performed By: #### L 100.0100, L503.6550, L503.6075, L500.4050 #### [facility] [address] [place] [place], [address] MCH (RBC) [Entitic mass] 27.7 pg Normal 27.0-32.0 [facility] Comment on above: Performed By: #### L 100.0100, L503.6550, L503.6075, L500.4050 #### [facility] [address] [place], [address] MCHC (RBC) [Mass/Vol] 31.2 g/dL Low 32-36 [facility] Comment on above: Performed By: #### L 100.0100, L503.6550, L503.6075, L500.4050 #### [facility] [address] [place], [address] MCV (RBC) [Entitic vol] 89.0 fL Normal 80-94 [facility] Comment on above: Performed By: #### L 100.0100, L503.6550, L503.6075, L500.4050 #### [facility] [address] [place], [address] Monocytes/100 WBC (Bld) 7.4 % Normal 0-10 [facility] Comment on above: Performed By: #### L 100.0100, L503.6550, L503.6075, L500.4050 #### [facility] [address] [place], [id number] Neutrophils/100 WBC (Bld) 66.6 % Normal 47-70 [facility] Comment on above: Performed By: #### L 100.0100, L503.6550, L503.6075, L500.4050 #### [facility] [address] [place], [address] Nucleated RBC (Bld) [#/Vol] 0 10*3/uL Normal 0-5 [facility] Comment on above: Performed By: #### L 100.0100, L503.6550, L503.6075, L500.4050 #### [facility] [address] [place], [id number] Platelet mean volume (Bld) [Entitic vol] 11.0 fL Normal 6.2-12.0 [facility] Comment on above: Performed By: #### L 100.0100, L503.6550, L503.6075, L500.4050 #### [facility] [address] [place], [address] Platelets (Bld) [#/Vol] 258 10*3/uL Normal 150-450 [facility] Comment on above: Performed By: #### L 100.0100, L503.6550, L503.6075, L500.4050 #### [facility] [address] [place], [id number] RBC (Bld) [#/Vol] 3.82 10*6/uL Low 4.6-6.2 [facility] Comment on above: Performed By: #### L 100.0100, L503.6550, L503.6075, L500.4050 #### [facility] [address] [place], [id number] RDW SD 51.5 fl High 35.1-43.9 [facility] Comment on above: Performed By: #### L 100.0100, L503.6550, L503.6075, L500.4050 #### [facility] [address] [place], [id number] WBC (Bld) [#/Vol] 5.6 10*3/uL Normal 4.4-11.0 [facility] Comment on above: Performed By: #### L 100.0100, L503.6550, L503.6075, L500.4050 #### [facility] [address] [place], [id number] Comprehensive Metabolic Prof [facility] 01-06-2024 Albumin [Mass/Vol] 3.3 g/dL Normal 3.2-5.0 [facility] Comment on above: Performed By: #### L 100.0100, L503.6550, L503.6075, L500.4050 #### [facility] [address] [place], [id number] Albumin/Globulin [Mass ratio] 0.9 {ratio} Normal 0.9-2.4 [facility] Comment on above: Performed By: #### L 100.0100, L503.6550, L503.6075, L500.4050 #### [facility] [address] [place], [id number] ALK P 80 U/L Normal 45-117 [facility] Comment on above: Performed By: #### L 100.0100, L503.6550, L503.6075, L500.4050 #### [facility] [address] [place], [id number] ALT [Catalytic activity/Vol] 19 U/L Normal 16-61 [facility] Comment on above: Performed By: #### L 100.0100, L503.6550, L503.6075, L500.4050 #### [facility] [address] [place], [address] AST [Catalytic activity/Vol] 18 U/L Normal 15-37 [facility] Comment on above: Performed By: #### L 100.0100, L503.6550, L503.6075, L500.4050 #### [facility] [address] [place], [address] Bilirubin [Mass/Vol] 0.30 mg/dL Normal 0.20-1.00 [facility] Comment on above: Result Comment: For patients on eltrombopag therapy, use of Dimension [place] TBIL is not recommended. Performed By: #### L 100.0100, L503.6550, L503.6075, L500.4050 #### [facility] [address] [place], [id number] BUN/CRE 19.3 RATIO Normal 10-20 [facility] Comment on above: Performed By: #### L 100.0100, L503.6550, L503.6075, L500.4050 #### [facility] [address] [place], [address] CA,Total 8.9 mg/dL Normal 8.5-10.1 [facility] Comment on above: Performed By: #### L 100.0100, L503.6550, L503.6075, L500.4050 #### [facility] [address] [place], [address] Chloride [Moles/Vol] 109 mmol/L High 98-107 [facility] Comment on above: Performed By: #### L 100.0100, L503.6550, L503.6075, L500.4050 #### [facility] [address] [place], [address] CO2 [Moles/Vol] 24.0 mmol/L Normal 21.0-32.0 [facility] Comment on above: Performed By: #### L 100.0100, L503.6550, L503.6075, L500.4050 #### [facility] [address] [place], [address] Creatinine [Mass/Vol] 1.35 mg/dL High 0.70-1.30 [facility] Comment on above: Result Comment: The validity of the calculated GFR GFRAA in patients over 70 years has not been determined. Clinical correlation is essential. Performed By: #### L 100.0100, L503.6550, L503.6075, L500.4050 #### [facility] [address] [place], [address] EST GFR - AA 64 mL/min Normal >60 [facility] Comment on above: Result Comment: Afri can Micronesian GFR Calc Performed By: #### L 100.0100, L503.6550, L503.6075, L500.4050 #### [facility] [address] [place], [address] GAP 9 Normal 5-15 [facility] Comment on above: Performed By: #### L 100.0100, L503.6550, L503.6075, L500.4050 #### [facility] [address] [place], [address] GFR/1.73 sq M.predicted among non-blacks MDRD (S/P/Bld) [Vol rate/Area] 53 mL/min/{1.73_m2} Low >60 [facility] Comment on above: Result Comment: Non- GFR Calc Performed By: #### L 100.0100, L503.6550, L503.6075, L500.4050 #### [facility] [address] [place], [address] Globulin (S) [Mass/Vol] 3.6 g/dL Normal 2.2-4.2 [facility] Comment on above: Performed By: #### L 100.0100, L503.6550, L503.6075, L500.4050 #### [facility] [address] [place], [address] Glucose [Mass/Vol] 121 mg/dL High 74-106 [facility] Comment on above: Result Comment: Fast ing Glucose result from 100 to 125 mg/dL suggests IMPAIRED HOMEOSTASIS per A.D.A. criteria. Performed By: #### L 100.0100, L503.6550, L503.6075, L500.4050 #### [facility] [address] [place], [address] Potassium [Moles/Vol] 4.2 mmol/L Normal 3.5-5.1 [facility] Comment on above: Performed By: #### L 100.0100, L503.6550, L503.6075, L500.4050 #### [facility] [address] [place], [address] Sodium [Moles/Vol] 142 mmol/L Normal 136-145 [facility] Comment on above: Performed By: #### L 100.0100, L503.6550, L503.6075, L500.4050 #### [facility] [address] [place], [address] T PROT 6.9 g/dL Normal 6.4-8.2 [facility] Comment on above: Performed By: #### L 100.0100, L503.6550, L503.6075, L500.4050 #### [facility] [address] [place], [address] Urea nitrogen [Mass/Vol] 26 mg/dL High 7-18 [facility] Comment on above: Performed By: #### L 100.0100, L503.6550, L503.6075, L500.4050 #### [facility] [address] [place], [address] Ferritinon 01-06-2024 Ferritin [Mass/Vol] 26 ng/mL Normal 26-388 [facility] Comment on above: Performed By: #### L 100.0100, L503.6550, L500.4050, L503.6030 #### [facility] [address] [place], [address] Iron Binding Capacity,Totalo n 01-06-2024 TIBC 313 ug/dL Normal 250-450 [facility] Comment on above: Performed By: #### L 100.0100, L503.6550, L500.4050, L503.6030 #### [facility] [address] [place], [address] Gastroenterology Visit Repor ton 12-06-2023 Gastroenterology Visit Report [facility] [address] [place] [address] OFFICE VISIT Date of Service: 12/06/23 MR#: [id number] Acct: [id number] Name: DORIAN CRAMER Rep #: [id number] : 1935 Provider: Lionel Lee DO Age/Sex: 88/M Location: [facility] [place] Status: Signed Intake Vital Signs 09/20/23 13:02 Height 5 ft 8 in Intake Visit Reasons: Hospital FU Allergies ibuprofen (From Motrin) Allergy (Verified 09/19/23 08:25) Swelling Medications ???Medication ???Instructions ???Recorded ???Confirmed ???Type albuterol sulfate 90 mcg/actuation 1 puff inhalation Q4H PRN 09/08/21 12/06/23 History aerosol inhaler sob/wheezing amlodipine 5 mg tablet 5 mg PO DAILY 07/02/22 12/06/23 History oxycodone 5 mg capsule 5 mg PO Q6H PRN pain 3 days #10 11/03/22 12/06/23 Rx caps artifi.tears(hypromellose)( PF) 1.7 1 drp EACH EYE DAILY PRN dry eyes 09/19/23 12/06/23 History % eye drops with applicator nystatin 100,000 unit/gram topical 1 applic topical 4X/DAY PRN skin 09/19/23 12/06/23 History cream irritation oxybutynin chloride 10 mg 10 mg PO DAILY 09/19/23 12/06/23 History tablet,extended release 24 hr Have you fallen in the past year?: No PFSH Medical History Alcohol abuse Alcohol use Cancer CPAP (continuous positive airway pressure) dependence Emphysema, unspecified Enlarged prostate Heartburn Hemorrhoid History of echocardiogram History of edema Hx of gout Hypertension Hypertension Injury of back Lung disease 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 Rosemary Fernandez, ) household members: spouse housing: house Smoking Status: Current every day smoker tobacco type: cigarettes alcohol intake: former substance use type: does not use HPI HPI Details: DORIAN CRAMER, is a 88 M who presents to the office today for hospital follow-up. [facility] hospitalization 5.624 - 5.8.24 GI bleed - presenting with bright red bleeding per rectum. abd/pelvis CT 5.6.24 Diffuse diverticulosis of the sigmoid colon. Stable adenoma in the right adrenal gland. Stable bilateral renal cysts. Findings suggestive of a round atelectasis in the right lower lobe. Colonoscopy 09.20.23 12 1 to 2 mm polyps in the sigmoid colon, in the transverse colon, at the hepatic flexure, in the ascending colon and in the cecum, removed with a hot snare. Resected and retrieved. Diverticulosis in the recto-sigmoid colon, in the sigmoid colon, in the descending colon and in the transverse colon. Clips were placed. 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 Four colonic angiodysplastic lesions. Treated with a hot snare. Non-bleeding internal hemorrhoids. *BGI established 12.06.23 pt reports that he is feeling well overall and denies any blood in his stool since hospital visit in September. Pt reports normal bm. Pt reports excessive flatulence since hospitalization. ROS Const Constitutional: Positive for weakness; No fatigue, fever(s) or weight change ENT ENT: No difficulty swallowing Gastro GI: Positive for bloating and excessive flatus; No abdominal pain, belching, change in bowel habits, change in stool character, coffee ground emesis, constipation, cramping, diarrhea, heartburn, difficulty swallowing, feeling full early, incontinent of stools, Vomiting blood/hematemesis, Blood in stool, loose stools, Black,tarry stools, nausea/dyspepsia, pain with swallowing, vomiting or other Musc Musculoskeletal: Positive for joint pain, back pain, joint swelling, muscle cramps, muscle weakness, numbness, stiffness, tingling, Arthritis, restless legs and leg pain at night Skin Skin: No yellowing of the eye or itchy eyes Neuro Neurology: Positive for weakness, numbness, tingling and restless legs Psych Psychiatric: No anxiety and No depression Endo Endocrine: No fatigue or weight change Aller/Imm Allergy/Immunologic: No itchy eyes Chris/Lymp Hematologic/Lymphatic: Positive for easy bruising; No easy bleeding Exam Const General: cooperative and comfortable Nutritional Appearance: average body habitus and well nourished HENMT Head: normal to inspection Ears: hearing grossly normal bilaterally Nose: external no (more content not included)... Normal [facility] NCS and/or EMG Patienton NCS and/or EMG Patient [facility] Pulmonary Services/Neurology [address] [place] [address] MR#: [id number] Acct: [id number] Name: DORIAN CRAMER Rep #: [id number] : 1935 88 From: Catherine Tay MD Referring Dr: Shoshana Ulrich MD Status: REG CLI Location: PSN Date: 10/17/23 Sex: M C NCS and/or EMG Patient Report Ordering Doctor: Shoshana Ulrich DATE OF SERVICE: 10/17/23 Clinical Summary: 88 year old male patient with symptoms of pain in the left foot that radiates up into the ramesh/calf regions. Nerve Conduction Studies Summary: The left peroneal-EDB CMAP amplitude was reduced diffusely. The left peroneal motor conduction velocity was reduced diffusely. The left tibial and peroneal F-wave onset latencies were prolonged. Nerve conduction studies were normal. Needle Examination Summary: Needle examination of select muscles of the left lower extremity demonstrated a higher proportion of motor unit action potentials with reduced recruitment, increased amplitude, increased duration, and polyphasia in the L5 to S1 myotomes. 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 Catherine Tay MD; Dr. Shoshana Ulrich MD Date Dictated: 10/17/23 1223 Date Transcribed: 10/17/23 122 Kitchen Steward: Signed Normal [facility] Basic Metabolic Profile (BMP )on 09-23-2023 BUN/CRE 17.8 RATIO Normal 10-20 [facility] Comment on above: Performed By: #### L 100.0100, L503.6550, L500.4050, L503.6030 #### [facility] [address] [place], [address] CA,Total 8.7 mg/dL Normal 8.5-10.1 [facility] Comment on above: Performed By: #### L 100.0100, L503.6550, L500.4050, L503.6030 #### [facility] [address] [place], [address] Chloride [Moles/Vol] 107 mmol/L Normal 98-107 [facility] Comment on above: Performed By: #### L 100.0100, L503.6550, L500.4050, L503.6030 #### [facility] [address] [place], [address] CO2 [Moles/Vol] 25.0 mmol/L Normal 21.0-32.0 [facility] Comment on above: Performed By: #### L 100.0100, L503.6550, L500.4050, L503.6030 #### [facility] [address] [place], [address] Creatinine [Mass/Vol] 1.46 mg/dL High 0.70-1.30 [facility] Comment on above: Result Comment: The validity of the calculated GFR GFRAA in patients over 70 years has not been determined. Clinical correlation is essential. Performed By: #### L 100.0100, L503.6550, L500.4050, L503.6030 #### [facility] [address] [place], [address] EST GFR - AA 59 mL/min Low >60 [facility] Comment on above: Result Comment: Afri can Micronesian GFR Calc Performed By: #### L 100.0100, L503.6550, L500.4050, L503.6030 #### [facility] [address] [place], [address] GAP 7 Normal 5-15 [facility] Comment on above: Performed By: #### L 100.0100, L503.6550, L500.4050, L503.6030 #### [facility] [address] [place], [address] GFR/1.73 sq M.predicted among non-blacks MDRD (S/P/Bld) [Vol rate/Area] 49 mL/min/{1.73_m2} Low >60 [facility] Comment on above: Result Comment: Non- GFR Calc Performed By: #### L 100.0100, L503.6550, L500.4050, L503.6030 #### [facility] [address] [place], [address] Glucose [Mass/Vol] 195 mg/dL High 74-106 [facility] Comment on above: Result Comment: Fast ing Glucose result greater than or equal to 126 mg/dL suggests DIABETES MELLITUS per A.D.A. criteria. Performed By: #### L 100.0100, L503.6550, L500.4050, L503.6030 #### [facility] [address] [place], [address] Potassium [Moles/Vol] 4.2 mmol/L Normal 3.5-5.1 [facility] Comment on above: Performed By: #### L 100.0100, L503.6550, L500.4050, L503.6030 #### [facility] [address] [place], [address] Sodium [Moles/Vol] 139 mmol/L Normal 136-145 [facility] Comment on above: Performed By: #### L 100.0100, L503.6550, L500.4050, L503.6030 #### [facility] [address] [place], [address] Urea nitrogen [Mass/Vol] 26 mg/dL High 7-18 [facility] Comment on above: Performed By: #### L 100.0100, L503.6550, L500.4050, L503.6030 #### [facility] [address] [place], [address] CBC W/Diff, Automatedon 05- 0-4 Absolute Lymph 0.82 X10 3/uL Low 0.83-4.51 [facility] Comment on above: Performed By: #### L 100.0100, L503.6550, L500.4050, L503.6030 #### [facility] [address] [place], [address] Absolute Neut 5.5 X10 3/uL Normal 2.0-7.7 [facility] Comment on above: Performed By: #### L 100.0100, L503.6550, L500.4050, L503.6030 #### [facility] [address] [place], [address] Basophils/100 WBC (Bld) 0.4 % Normal 0-1 [facility] Comment on above: Performed By: #### L 100.0100, L503.6550, L500.4050, L503.6030 #### [facility] [address] [place], [address] Eosinophils/100 WBC (Bld) 3.2 % Normal 0-5 [facility] Comment on above: Performed By: #### L 100.0100, L503.6550, L500.4050, L503.6030 #### [facility] [address] [place], [address] Erythrocyte distribution width (RBC) [Ratio] 16.0 % High 11.6-14.6 [facility] Comment on above: Performed By: #### L 100.0100, L503.6550, L500.4050, L503.6030 #### [facility] [address] [place], [address] Hematocrit (Bld) [Volume fraction] 29.1 % Low 40-54 [facility] Comment on above: Performed By: #### L 100.0100, L503.6550, L500.4050, L503.6030 #### [facility] [address] [place], [address] Hemoglobin (Bld) [Mass/Vol] 9.2 g/dL Low 13.0-16.5 [facility] Comment on above: Performed By: #### L 100.0100, L503.6550, L500.4050, L503.6030 #### [facility] [address] [place], [address] IG% 0.300 Normal 0.0-0.9 [facility] Comment on above: Result Comment: IG% - Immature Granulocytes (promyelocytes, myelocytes and metamyelocytes) > 1% indicates that a LEFT SHIFT is Present. Performed By: #### L 100.0100, L503.6550, L500.4050, L503.6030 #### [facility] [address] [place], [address] Lymphocytes/100 WBC (Bld) 11.8 % Low 19-41 [facility] Comment on above: Performed By: #### L 100.0100, L503.6550, L500.4050, L503.6030 #### [facility] [address] [place], [address] MCH (RBC) [Entitic mass] 31.5 pg Normal 27.0-32.0 [facility] Comment on above: Performed By: #### L 100.0100, L503.6550, L500.4050, L503.6030 #### [facility] [address] [place], [address] MCHC (RBC) [Mass/Vol] 31.6 g/dL Low 32-36 [facility] Comment on above: Performed By: #### L 100.0100, L503.6550, L500.4050, L503.6030 #### [facility] [address] [place], [address] MCV (RBC) [Entitic vol] 99.7 fL High 80-94 [facility] Comment on above: Performed By: #### L 100.0100, L503.6550, L500.4050, L503.6030 #### [facility] [address] [place], [address] Monocytes/100 WBC (Bld) 4.5 % Normal 0-10 [facility] Comment on above: Performed By: #### L 100.0100, L503.6550, L500.4050, L503.6030 #### [facility] [address] [place], [address] Neutrophils/100 WBC (Bld) 79.8 % High 47-70 [facility] Comment on above: Performed By: #### L 100.0100, L503.6550, L500.4050, L503.6030 #### [facility] [address] [place], [address] Nucleated RBC (Bld) [#/Vol] 0 10*3/uL Normal 0-5 [facility] Comment on above: Performed By: #### L 100.0100, L503.6550, L500.4050, L503.6030 #### [facility] [address] [place], [address] Platelet mean volume (Bld) [Entitic vol] 10.4 fL Normal 6.2-12.0 [facility] Comment on above: Performed By: #### L 100.0100, L503.6550, L500.4050, L503.6030 #### [facility] [address] [place], [id number] Platelets (Bld) [#/Vol] 206 10*3/uL Normal 150-450 [facility] Comment on above: Performed By: #### L 100.0100, L503.6550, L500.4050, L503.6030 #### [facility] [address] [place], [address] RBC (Bld) [#/Vol] 2.92 10*6/uL Low 4.6-6.2 [facility] Comment on above: Performed By: #### L 100.0100, L503.6550, L500.4050, L503.6030 #### [facility] [address] [place], [address] RDW SD 58.7 fl High 35.1-43.9 [facility] Comment on above: Performed By: #### L 100.0100, L503.6550, L500.4050, L503.6030 #### [facility] [address] [place], [address] WBC (Bld) [#/Vol] 6.9 10*3/uL Normal 4.4-11.0 [facility] Comment on above: Performed By: #### L 100.0100, L503.6550, L500.4050, L503.6030 #### [facility] [address] [place], [address] Ferritinon 09-23-2023 Ferritin [Mass/Vol] 77 ng/mL Normal 26-388 [facility] Comment on above: Performed By: #### L 100.0100, L503.6550, L500.4050, L503.6030 #### [facility] [address] [place], [address] Retic Panelon 09-23-2023 IM RET FRACTION 18.60 High 3.00-15.90 [facility] Comment on above: Performed By: #### L 100.0100, L503.6550, L500.4050, L503.6030 #### [facility] [address] [place], [address] RET-HE 29.8 pg Low 30-35 [facility] Comment on above: Performed By: #### L 100.0100, L503.6550, L500.4050, L503.6030 #### [facility] [address] [place], [address] Retic Count 1.52 High 0.5-1.5 [facility] Comment on above: Performed By: #### L 100.0100, L503.6550, L500.4050, L503.6030 #### [facility] [address] [place], [address] Absolute lymphocyte countOrd ered By: Rosemary Fernandez on 09-21-2023 Lymphocytes Auto (Unsp spec) [#/Vol] 0.77 10*3/uL 0.83-4.51 [facility] Automated lymphocyte count a s percentage of total leukocytesOrdered By: Rosemary Fernandez on 09-21-2023 Lymphocytes/100 WBC Auto (Unsp spec) 11.7 % 19-41 [facility] Basic Metabolic Profile (BMP )on 09-21-2023 BUN/CRE 16.0 RATIO Normal 10-20 [facility] Comment on above: Performed By: #### L 500.4050, L503.6030, L100.0100, L503.6550 #### [facility] [address] [place], [address] CA,Total 8.7 mg/dL Normal 8.5-10.1 [facility] Comment on above: Performed By: #### L 500.4050, L503.6030, L100.0100, L503.6550 #### [facility] [address] [place], [address] Chloride [Moles/Vol] 109 mmol/L High 98-107 [facility] Comment on above: Performed By: #### L 500.4050, L503.6030, L100.0100, L503.6550 #### [facility] [address] [place], [address] CO2 [Moles/Vol] 26.0 mmol/L Normal 21.0-32.0 [facility] Comment on above: Performed By: #### L 500.4050, L503.6030, L100.0100, L503.6550 #### [facility] [address] [place], [address] Creatinine [Mass/Vol] 1.19 mg/dL Normal 0.70-1.30 [facility] Comment on above: Result Comment: The validity of the calculated GFR GFRAA in patients over 70 years has not been determined. Clinical correlation is essential. Performed By: #### L 500.4050, L503.6030, L100.0100, L503.6550 #### [facility] [address] [place], [address] ECRCL 42.92 ml/min Normal [facility] Comment on above: Performed By: #### L 500.4050, L503.6030, L100.0100, L503.6550 #### [facility] [address] [place], [address] EST GFR - AA 75 mL/min Normal >60 [facility] Comment on above: Result Comment: Afri can Micronesian GFR Calc Performed By: #### L 500.4050, L503.6030, L100.0100, L503.6550 #### [facility] [address] [place], [address] GAP 6 Normal 5-15 [facility] Comment on above: Performed By: #### L 500.4050, L503.6030, L100.0100, L503.6550 #### [facility] [address] [place], [address] GFR/1.73 sq M.predicted among non-blacks MDRD (S/P/Bld) [Vol rate/Area] 62 mL/min/{1.73_m2} Normal >60 [facility] Comment on above: Result Comment: Non- GFR Calc Performed By: #### L 500.4050, L503.6030, L100.0100, L503.6550 #### [facility] [address] [place], [address] Glucose [Mass/Vol] 91 mg/dL Normal 74-106 [facility] Comment on above: Performed By: #### L 500.4050, L503.6030, L100.0100, L503.6550 #### [facility] [address] [place], [address] Potassium [Moles/Vol] 4.2 mmol/L Normal 3.5-5.1 [facility] Comment on above: Performed By: #### L 500.4050, L503.6030, L100.0100, L503.6550 #### [facility] [address] [place], [address] Sodium [Moles/Vol] 141 mmol/L Normal 136-145 [facility] Comment on above: Performed By: #### L 500.4050, L503.6030, L100.0100, L503.6550 #### [facility] [address] [place], [address] Urea nitrogen [Mass/Vol] 19 mg/dL High 7-18 [facility] Comment on above: Performed By: #### L 500.4050, L503.6030, L100.0100, L503.6550 #### [facility] [address] [place], [address] Basophil percentageOrdered B y: Rosemary Fernandez on 09-21-2023 Basophils/100 WBC (Bld) 0.3 % 0-1 [facility] Chloride [Moles/Vol] 109 mmol/L 98-107 [facility] Eosinophils/100 WBC (Bld) 5.2 % 0-5 [facility] Glucose [Mass/Vol] 91 mg/dL 74-106 [facility] Hemoglobin (Bld) [Mass/Vol] 9.4 g/dL 13.0-16.5 [facility] Monocytes/100 WBC (Bld) 5.8 % 0-10 [facility] Neutrophils (Bld) [#/Vol] 5.1 10*3/uL 2.0-7.7 [facility] Neutrophils/100 WBC (Bld) 76.7 % 47-70 [facility] Potassium [Moles/Vol] 4.2 mmol/L 3.5-5.1 [facility] Sodium [Moles/Vol] 141 mmol/L 136-145 [facility] WBC (Bld) [#/Vol] 6.6 10*3/uL 4.4-11.0 [facility] CBC W/Diff, Automatedon 05- Absolute Lymph 0.77 X10 3/uL Low 0.83-4.51 [facility] Comment on above: Performed By: #### L 500.4050, L503.6030, L100.0100, L503.6550 #### [facility] [address] [place], [address] Absolute Neut 5.1 X10 3/uL Normal 2.0-7.7 [facility] Comment on above: Performed By: #### L 500.4050, L503.6030, L100.0100, L503.6550 #### [facility] [address] [place], [address] Basophils/100 WBC (Bld) 0.3 % Normal 0-1 [facility] Comment on above: Performed By: #### L 500.4050, L503.6030, L100.0100, L503.6550 #### [facility] [address] [place], [address] Eosinophils/100 WBC (Bld) 5.2 % High 0-5 [facility] Comment on above: Performed By: #### L 500.4050, L503.6030, L100.0100, L503.6550 #### [facility] [address] [place], [address] Erythrocyte distribution width (RBC) [Ratio] 16.8 % High 11.6-14.6 [facility] Comment on above: Performed By: #### L 500.4050, L503.6030, L100.0100, L503.6550 #### [facility] [address] [place], [address] Hematocrit (Bld) [Volume fraction] 29.6 % Low 40-54 [facility] Comment on above: Performed By: #### L 500.4050, L503.6030, L100.0100, L503.6550 #### [facility] [address] [place], [address] Hemoglobin (Bld) [Mass/Vol] 9.4 g/dL Low 13.0-16.5 [facility] Comment on above: Performed By: #### L 500.4050, L503.6030, L100.0100, L503.6550 #### [facility] [address] [place], [address] IG% 0.300 Normal 0.0-0.9 [facility] Comment on above: Result Comment: IG% - Immature Granulocytes (promyelocytes, myelocytes and metamyelocytes) > 1% indicates that a LEFT SHIFT is Present. Performed By: #### L 500.4050, L503.6030, L100.0100, L503.6550 #### [facility] [address] [place], [address] Lymphocytes/100 WBC (Bld) 11.7 % Low 19-41 [facility] Comment on above: Performed By: #### L 500.4050, L503.6030, L100.0100, L503.6550 #### [facility] [address] [place], [address] MCH (RBC) [Entitic mass] 31.0 pg Normal 27.0-32.0 [facility] Comment on above: Performed By: #### L 500.4050, L503.6030, L100.0100, L503.6550 #### [facility] [address] [place], [address] MCHC (RBC) [Mass/Vol] 31.8 g/dL Low 32-36 [facility] Comment on above: Performed By: #### L 500.4050, L503.6030, L100.0100, L503.6550 #### [facility] [address] [place], [id number] MCV (RBC) [Entitic vol] 97.7 fL High 80-94 [facility] Comment on above: Performed By: #### L 500.4050, L503.6030, L100.0100, L503.6550 #### [facility] [address] [place], [address] Monocytes/100 WBC (Bld) 5.8 % Normal 0-10 [facility] Comment on above: Performed By: #### L 500.4050, L503.6030, L100.0100, L503.6550 #### [facility] [address] [place], [address] Neutrophils/100 WBC (Bld) 76.7 % High 47-70 [facility] Comment on above: Performed By: #### L 500.4050, L503.6030, L100.0100, L503.6550 #### [facility] [address] [place], [address] Nucleated RBC (Bld) [#/Vol] 0 10*3/uL Normal 0-5 [facility] Comment on above: Performed By: #### L 500.4050, L503.6030, L100.0100, L503.6550 #### [facility] [address] [place], [address] Platelet mean volume (Bld) [Entitic vol] 10.5 fL Normal 6.2-12.0 [facility] Comment on above: Performed By: #### L 500.4050, L503.6030, L100.0100, L503.6550 #### [facility] [address] [place], [address] Platelets (Bld) [#/Vol] 166 10*3/uL Normal 150-450 [facility] Comment on above: Performed By: #### L 500.4050, L503.6030, L100.0100, L503.6550 #### [facility] [address] [place], [address] RBC (Bld) [#/Vol] 3.03 10*6/uL Low 4.6-6.2 [facility] Comment on above: Performed By: #### L 500.4050, L503.6030, L100.0100, L503.6550 #### [facility] [address] [place], [address] RDW SD 60.4 fl High 35.1-43.9 [facility] Comment on above: Performed By: #### L 500.4050, L503.6030, L100.0100, L503.6550 #### [facility] [address] [place], [address] WBC (Bld) [#/Vol] 6.6 10*3/uL Normal 4.4-11.0 [facility] Comment on above: Performed By: #### L 500.4050, L503.6030, L100.0100, L503.6550 #### [facility] [address] [place], [place], [id number] Determination of erythrocyte mean corpuscular volume (MCV)Ordered By: Rosemary Fernandez on 09-21-2023 MCV (RBC) [Entitic vol] 97.7 fL 80-94 [facility] Erythrocyte distribution wid th ratioOrdered By: Rosemary Fernandez on 09-21-2023 Erythrocyte distribution width (RBC) [Ratio] 16.8 % 11.6-14.6 [facility] Erythrocyte distribution wid th standard deviationOrdered By: Rosemary Fernandez on 09-21-2023 Erythrocyte distribution width (RBC) [Entitic vol] 60.4 fL 35.1-43.9 [facility] Hematocrit Auto (Bld) [Volum e fraction]Ordered By: Rosemary Fernandez on 09-21-2023 Hematocrit (Bld) [Volume fraction] 29.6 % 40-54 [facility] Immature granulocytes/100 WB C Auto (Bld)Ordered By: Rosemary Fernandez on 09-21-2023 Immature granulocytes/100 WBC (Bld) 0.300 % 0.0-0.9 [facility] Comment on above: IG% - Immature Granu locytes (promyelocytes, myelocytes and metamyelocytes) > 1% indicates that a LEFT SHIFT is Present. Laboratory - Chemistry and C hemistry - challengeOrdered By: Rosemary Fernandez on 09-21-2023 CO2 [Moles/Vol] 26.0 mmol/L 21.0-32.0 [facility] Urea nitrogen/Creatinine [Mass ratio] 16.0 mg/mg 10-20 [facility] - Hematology and Cell countsOrdered By: Rosemary Fernandez on 09-21-2023 MCH (RBC) [Entitic mass] 31.0 pg 27.0-32.0 [facility] MCHC (RBC) [Mass/Vol] 31.8 g/dL 32-36 [facility] Nucleated RBC/100 WBC (Bld) [Ratio] 0 % 0-5 [facility] Platelet mean volume (Bld) [Entitic vol] 10.5 fL 6.2-12.0 [facility] Platelets (Bld) [#/Vol] 166 10*3/uL 150-450 [facility] MR/PN.[place] 09-21-2023 MR/PN.GI [facility] Medical Records Department [address] [place] [address] Progress Note - GI 09/21/23 0646 MR#: [id number] Acct: [id number] Name: DORIAN CRAMER Rep #: [id number] : 1935 88 From: Lionel Friend DO PCP: Dr. Shoshana Ulrich MD Status:DIS IN Location: MS3 [id number] Subjective Subjective Patient is doing very well. He underwent a colonoscopy yesterday and was discovered to have multiple sources for GI bleeding including multiple polyps, angiodysplasia and bleeding from diverticula. Objective Data Objective Data Vital Signs: Vital Signs Temp Pulse Resp BP Pulse Ox O2 Del Method 98.3 F 84 18 113/64 95 Room Air 09/21/23 08:42 09/21/23 14:38 09/21/23 14:38 09/21/23 14:38 09/21/23 14:38 09/21/23 14:38 Oxygen Delivery Method Room Air Weight: 150 lb 2.157 oz Body Mass Index (BMI) 22.7 Intake Output: Intake and Output for Last 24 Hours 09/19/23 09/20/23 09/21/23 23:59 23:59 23:59 Intake Total 110 / 110 1918.5 / 1918.5 1235 / 1235 Balance 110 / 110 1918.5 / 1918.5 1235 / 1235 Lab / Micro Data 09/21/23 06:04 09/21/23 06:04 Labs: Laboratory Results - last 24 hr 09/19/23 08:45: Crossmatch See Detail 09/21/23 06:04: WBC 6.6, RBC 3.03 L, Hgb 9.4 L, Hct 29.6 L, MCV 97.7 H, MCH 31.0, MCHC 31.8 L, RDW Std Deviation 60.4 H, RDW Coeff of Beth 16.8 H, Plt Count 166, MPV 10.5, Immature Gran % (Auto) 0.300, Neut % (Auto) 76.7 H, Lymph % (Auto) 11.7 L, Gaines % (Auto) 5.8, Eos % (Auto) 5.2 H, Baso % (Auto) 0.3, Absolute Neuts (auto) 5.1, Absolute Lymphs (auto) 0.77 L, Nucleated RBC % 0, Sodium 141, Potassium 4.2, Chloride 109 H, Carbon Dioxide 26.0, Anion Gap 6, BUN 19 H, Creatinine 1.19, Estim Creat Clear Calc 42.92, Est GFR (MDRD) Af Amer 75, Est GFR (MDRD) Non-Af 62, BUN/Creatinine Ratio 16.0, Glucose 91, Calcium 8.7 Micro: Microbiology 09/19/23 11:51 Stool Stool Lactoferrin - Final 09/19/23 11:51 Stool Enteric Bacteriology - Final 09/19/23 11:51 Stool Clostridioides difficile (PCR) - Final Physical Exam Const alert, oriented x3, no apparent distress, average body habitus, no limitations and well nourished Constitutional Narrative: Very pleasant, elderly, white male, sitting up in bed, nursing at bedside, patient appears comfortable, nontoxic General Appearance: cooperative, comfortable, well kempt and well developed Orientation / Consciousness: awake, oriented to person, oriented to place and oriented to time Exam Limitations: no limitations HEENT normocephalic, head/scalp atraumatic and moist oral mucous membranes HEENT Narrative: Dentition is poor, Mallampati is 2, no thrush, mild to moderate hearing loss Eyes PERRL and EOMs intact bilaterally Eyes Narrative: No scleral icterus, conjunctiva are slightly pale Neck no lymphadenopathy and supple Neck Narrative: Trachea midline, no thyroid enlargement Resp normal respiratory effort, no retractions, no use of accessory muscles and clear to auscultation bilaterally Resp Narrative: Diffusely diminished but clear Auscultation: Negative for rales, rhonchi or wheezes Cardio regular rate, regular rhythm, S1 normal heart sound, S2 normal heart sound, no murmurs, no rub, no gallops and no clicks GI normal to inspection, nondistended, normoactive bowel sounds, soft to palpation and non-tender Extremity no clubbing, cyanosis or edema Extremity Narrative: Pedal pulses are 2+ Skin no rashes or lesions noted, no wounds, skin turgor normal, no jaundice, no petechiae and no mottling Skin Narrative: Age and sun exposure related changes Neuro oriented x3, CN's II-XII intact bilaterally, moves all extremities and no focal motor deficits Speech: speech normal Psych affect normal Psych Narrative: Interacts appropriately, eye contact is good, very pleasant Assessment Plan Assessment/Plan (1) GIB (gastrointestinal bleeding): (2) BRBPR (bright red blood per rectum): (3) Acute on chronic anemia: PLAN: Plan Lower GI bleed with bright red blood per rectum -Highly suspect lower GI bleed -Patient now n.p.o. preparing for EGD and colonoscopy later today -Continue IV fluids -Transfuse 1 unit packed red blood cell -Low suspicion of upper GI bleed with normal BUN to serum creatinine ratio -Patient has CT of the abdomen pelvis done which showed significant diverticulosis with no acute abnormality identified -GI is following-appreciate input Diarrhea -Suspect related to bleeding -Enteric panel and C. difficile are unremarkable -Continue to monitor Acute on chronic anemia -Secondary to the above -Continue to monitor hemoglobin with every 6 hours hemoglobin -Will transfuse 1 unit packed red blood cells as hemoglobin appears to now be stabilizing however is dropped into the mid to low 8 range -Baseline hemoglobin appears to be between 12 and 13 (more content not included)... Normal [facility] No Panel InformationOrdered By: Rosemary Fernandez on 09-21-2023 Estimated Creatinine Clearance Calc 42.92 ml/min [facility] Estimated GFR (MDRD) Amer 75 mL/min >60 [facility] Comment on above: GFR Calc Estimated GFR (MDRD) Non-Af Amer 62 mL/min >60 [facility] Comment on above: Non- GFR Calc Ova and Parasites 8623on OP OVA AND PARASITES EX AM, ROUTINE These results were obtained using wet preparation(s) and trichrome stained smear. This test does not include testing for Crytosporidium parvum, Cyclospora, or Microsporidia. O+P Spec Micro One negative specimen does not rule out the possibility of a parasitic infection. ___ TESTING PERFORMED AT [facility]. ORIGINAL REPORT ON FILE IN LAB CONTAINS ADDITIONAL TEST SITE INFORMATION. ___ Ova/Parasite Exam NO OVA, CYSTS, OR PARASITES FOUND. Normal [facility] Comment on above: Performed By: #### L 500.4050, L503.6030, L100.0100, L503.6550 #### [facility] [address] [place], [address] RBC Auto (Bld) [#/Vol]Ordere d By: Rosemary Fernandez on 09-21-2023 RBC (Bld) [#/Vol] 3.03 10*6/uL 4.6-6.2 [facility] Serum or plasma calcium marlin urement (mass/volume)Ordered By: Rosemary Fernandez on 09-21-2023 Calcium [Mass/Vol] 8.7 mg/dL 8.5-10.1 [facility] Serum or plasma creatinine m easurement (mass/volume)Ordered By: Rosemary Fernandez on 09-21-2023 Creatinine [Mass/Vol] 1.19 mg/dL 0.70-1.30 [facility] Comment on above: The validity of the calculated GFR & GFRAA in patients over 70 years has not been determined. Clinical correlation is essential. Serum or plasma urea nitroge n measurement (mass/volume)Ordered By: Rosemary Fernandez on 09-21-2023 Urea nitrogen [Mass/Vol] 19 mg/dL 7-18 [facility] Thin prep Papanicolaou smear with manual screeningOrdered By: Rosemary Fernandez on 09-21-2023 Thin prep Papanicolaou smear with manual screening 6 5-15 [facility] 12 Lead EKGon 09-20-2023 12 Lead EKG [facility] [address] [place] [address] 12 Lead EKG 09/20/23 0517 MR#: [id number] Acct: [id number] Name: DORIAN CRAMER Rep #: [id number] : 1935 88 From: Jam Tobin MD Attending Dr: Dr. Rosemary Fernandez DO Status: ADM I N Ordering Dr: Collin Grey MD Date: 09/20/23 Location: [facility] Sex: M C Admitted: 09/19/23 Test Reason : PRE-OP Blood Pressure : / mmHG Vent. Rate : 071 BPM Atrial Rate : 071 BPM P-R Int : 248 ms QRS Dur : 096 ms QT Int : 410 ms P-R-T Axes : -09 -75 017 degrees QTc Int : 445 ms Sinus rhythm with 1st degree A-V block with Premature atrial complexes Left axis deviation Nonspecific ST and T wave abnormality Abnormal ECG Confirmed by Jam Tobin ([id number]), video effects editor MARGAUX THURMAN ([id number]) on 09/20/2023 10:08:56 AM Referred By: GLADYS Confirmed By:Jam Tobin 09/20/23 1008 Date Jam Tobin MD CC: Dr. Collin Grey MD; Dr. Shoshana Ulrich MD; Dr. Rosemary Fernandez DO Signed Normal [facility] Basophil percentageOrdered B y: Rosemary Fernandez on 09-20-2023 Basophil percentage 3.4 mg/dL 2.5-4.9 [facility] Bilirubin [Mass/Vol] 0.60 mg/dL 0.20-1.00 [facility] Comment on above: For patients on eltr ombopag therapy, use of Dimension [place] TBIL is not recommended. Protein [Mass/Vol] 5.2 g/dL 6.4-8.2 [facility] CBC W/Diff, Automatedon Absolute Lymph 0.94 X10 3/uL Normal 0.83-4.51 [facility] Comment on above: Performed By: #### L 500.8730, L503.9830, L100.0100, L503.2950 #### [facility] [address] [place], [id number] Absolute Neut 2.4 X10 3/uL Normal 2.0-7.7 [facility] Comment on above: Performed By: #### L 500.4050, L503.6030, L100.0100, L503.6550 #### [facility] [address] [place], [id number] Basophils/100 WBC (Bld) 1.0 % Normal 0-1 [facility] Comment on above: Performed By: #### L 500.4050, L503.6030, L100.0100, L503.6550 #### [facility] [address] [place], [id number] Eosinophils/100 WBC (Bld) 9.2 % High 0-5 [facility] Comment on above: Performed By: #### L 500.4050, L503.6030, L100.0100, L503.6550 #### [facility] [address] [place], [address] Erythrocyte distribution width (RBC) [Ratio] 15.0 % High 11.6-14.6 [facility] Comment on above: Performed By: #### L 500.4050, L503.6030, L100.0100, L503.6550 #### [facility] [address] [place], [address] Hematocrit (Bld) [Volume fraction] 25.7 % Low 40-54 [facility] Comment on above: Performed By: #### L 500.4050, L503.6030, L100.0100, L503.6550 #### [facility] [address] [place], [address] Hemoglobin (Bld) [Mass/Vol] 8.3 g/dL Low 13.0-16.5 [facility] Comment on above: Performed By: #### L 500.4050, L503.6030, L100.0100, L503.6550 #### [facility] [address] [place], [address] IG% 0.200 Normal 0.0-0.9 [facility] Comment on above: Result Comment: IG% - Immature Granulocytes (promyelocytes, myelocytes and metamyelocytes) > 1% indicates that a LEFT SHIFT is Present. Performed By: #### L 500.4050, L503.6030, L100.0100, L503.6550 #### [facility] [address] [place], [address] Lymphocytes/100 WBC (Bld) 22.8 % Normal 19-41 [facility] Comment on above: Performed By: #### L 500.4050, L503.6030, L100.0100, L503.6550 #### [facility] [address] [place], [address] MCH (RBC) [Entitic mass] 32.0 pg Normal 27.0-32.0 [facility] Comment on above: Performed By: #### L 500.4050, L503.6030, L100.0100, L503.6550 #### [facility] [address] [place], [address] MCHC (RBC) [Mass/Vol] 32.3 g/dL Normal 32-36 [facility] Comment on above: Performed By: #### L 500.4050, L503.6030, L100.0100, L503.6550 #### [facility] [address] [place], [address] MCV (RBC) [Entitic vol] 99.2 fL High 80-94 [facility] Comment on above: Performed By: #### L 500.4050, L503.6030, L100.0100, L503.6550 #### [facility] [address] [place], [address] Monocytes/100 WBC (Bld) 7.8 % Normal 0-10 [facility] Comment on above: Performed By: #### L 500.4050, L503.6030, L100.0100, L503.6550 #### [facility] [address] [place], [address] Neutrophils/100 WBC (Bld) 59.0 % Normal 47-70 [facility] Comment on above: Performed By: #### L 500.4050, L503.6030, L100.0100, L503.6550 #### [facility] [address] [place], [address] Nucleated RBC (Bld) [#/Vol] 0 10*3/uL Normal 0-5 [facility] Comment on above: Performed By: #### L 500.4050, L503.6030, L100.0100, L503.6550 #### [facility] [address] [place], [address] Platelet mean volume (Bld) [Entitic vol] 10.6 fL Normal 6.2-12.0 [facility] Comment on above: Performed By: #### L 500.4050, L503.6030, L100.0100, L503.6550 #### [facility] [address] [place], [address] Platelets (Bld) [#/Vol] 160 10*3/uL Normal 150-450 [facility] Comment on above: Performed By: #### L 500.4050, L503.6030, L100.0100, L503.6550 #### [facility] [address] [place], [address] RBC (Bld) [#/Vol] 2.59 10*6/uL Low 4.6-6.2 [facility] Comment on above: Performed By: #### L 500.4050, L503.6030, L100.0100, L503.6550 #### [facility] [address] [place], [address] RDW SD 54.2 fl High 35.1-43.9 [facility] Comment on above: Performed By: #### L 500.4050, L503.6030, L100.0100, L503.6550 #### [facility] [address] [place], [address] WBC (Bld) [#/Vol] 4.1 10*3/uL Low 4.4-11.0 [facility] Comment on above: Performed By: #### L 500.4050, L503.6030, L100.0100, L503.6550 #### [facility] [address] [place] [place], [address] Colonoscopy Reporton 024 Colonoscopy Report [facility] Medical Records Department [address] [place] [address] Colonoscopy Report MR#: [id number] Acct: [id number] Name: DORIAN CRAMER Rep #: [id number] : 1935 88 From: Lionel Lee DO PCP: Dr. Shoshana Ulrich MD Status:ADM IN Patient Name: Dorian Cramer Procedure Date: 09/20/2023 3:21 PM Date of : 1935 Age: 88 Procedure: Colonoscopy Indications: Hematochezia Providers: Lionel Lee DO Medicines: Monitored Anesthesia Care Patient Profile: This is an 88 year old male. Refer to note in patient chart for documentation of history and physical. Last Colonoscopy: date unknown. Unable to locate last colonoscopy report. Complications: No immediate complications. Procedure: Pre-Anesthesia Assessment: - Prior to the procedure, a History and Physical was performed, and patient medications and allergies were reviewed. The patient is competent. The risks and benefits of the procedure and the sedation options and risks were discussed with the patient. All questions were answered and informed consent was obtained. Patient identification and proposed procedure were verified by the physician in the pre-procedure area. Mental Status Examination: alert and oriented. Airway Examination: normal oropharyngeal airway and neck mobility. Respiratory Examination: clear to auscultation. CV Examination: normal. Prophylactic Antibiotics: The patient does not require prophylactic antibiotics. Prior Anticoagulants: The patient has taken no anticoagulant or antiplatelet agents. ASA Grade Assessment: III - A patient with severe systemic disease. After reviewing the risks and benefits, the patient was deemed in satisfactory condition to undergo the procedure. The anesthesia plan was to use monitored anesthesia care (MAC). Immediately prior to administration of medications, the patient was re-assessed for adequacy to receive sedatives. The heart rate, respiratory rate, oxygen saturations, blood pressure, adequacy of pulmonary ventilation, and response to care were monitored throughout the procedure. The physical status of the patient was re-assessed after the procedure. After I obtained informed consent, the scope was passed under direct vision. Throughout the procedure, the patient's blood pressure, pulse, and oxygen saturations were monitored continuously. The pediatric colonoscope was introduced through the anus and advanced to the cecum, identified by appendiceal orifice and ileocecal valve. The colonoscopy was performed without difficulty. The patient tolerated the procedure well. The quality of the bowel preparation was adequate. The ileocecal valve, appendiceal orifice, and rectum were photographed. Scope In: 3:32:58 PM Scope Out: 4:06:53 PM Total Procedure Duration Time 0 hours 33 minutes 55 seconds Findings: The perianal and digital rectal examinations were normal. 12 sessile polyps were found in the sigmoid colon, transverse colon, hepatic flexure, ascending colon and cecum. The polyps were 1 to 2 mm in size. These polyps were removed with a hot snare. Resection and retrieval were complete. Verification of patient identification for the specimen was done. Estimated blood loss was minimal. Multiple small and large-mouthed diverticula were found in the recto-sigmoid colon, sigmoid colon, descending colon and transverse colon. For hemostasis, two hemostatic clips were successfully placed. 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 There was no bleeding at the end of the procedure. Four medium-sized localized angiodysplastic lesions with bleeding on contact were found at the splenic flexure. Coagulation for bleeding prevention using snare was successful. Estimated blood loss was minimal. Non-bleeding internal hemorrhoids were found during retroflexion. The hemorrhoids were Grade II (internal hemorrhoids that prolapse but reduce spontaneously). Impression: - 12 1 to 2 mm polyps in the sigmoid colon, in the transverse colon, at the hepatic flexure, in the ascending colon and in the cecum, removed with a hot snare. Resected and retrieved. - Diverticulosis in the recto-sigmoid colon, in the sigmoid colon, in the descending colon and in the transverse colon. Clips were placed. 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 - Four colonic angiodysplastic lesions. Treated with a hot snare. - Non-bleeding internal hemorrhoids. Recommendation: - Repeat colonoscopy in 6 months for surveillance. - No aspirin, ibuprofen, naproxen, or other non-steroidal anti-inflammatory drugs for 4 weeks. - No aspirin, ibuprofen, naproxen, or other non-steroidal anti-inflammatory drugs for 4 weeks after polyp removal. Procedure Code(s): --- Professional --- 02562, 59, Colonoscopy, flexible; with control of bleeding, any method 53475, Colonoscopy, (more content not included)... Normal [facility] Comprehensive Metabolic Prof ilon 09-20-2023 Albumin [Mass/Vol] 2.7 g/dL Low 3.2-5.0 [facility] Comment on above: Performed By: #### L 500.4050, L503.6030, L100.0100, L503.6550 #### [facility] [address] [place], [address] Albumin/Globulin [Mass ratio] 1.1 {ratio} Normal 0.9-2.4 [facility] Comment on above: Performed By: #### L 500.4050, L503.6030, L100.0100, L503.6550 #### [facility] [address] [place], [address] ALK P 53 U/L Normal 45-117 [facility] Comment on above: Performed By: #### L 500.4050, L503.6030, L100.0100, L503.6550 #### [facility] [address] [place], [address] ALT [Catalytic activity/Vol] 15 U/L Low 16-61 [facility] Comment on above: Performed By: #### L 500.4050, L503.6030, L100.0100, L503.6550 #### [facility] [address] [place], [address] AST [Catalytic activity/Vol] 12 U/L Low 15-37 [facility] Comment on above: Performed By: #### L 500.4050, L503.6030, L100.0100, L503.6550 #### [facility] [address] [place], [address] Bilirubin [Mass/Vol] 0.60 mg/dL Normal 0.20-1.00 [facility] Comment on above: Result Comment: For patients on eltrombopag therapy, use of Dimension [place] TBIL is not recommended. Performed By: #### L 500.4050, L503.6030, L100.0100, L503.6550 #### [facility] [address] [place], [address] BUN/CRE 19.8 RATIO Normal 10-20 [facility] Comment on above: Performed By: #### L 500.4050, L503.6030, L100.0100, L503.6550 #### [facility] [address] [place], [address] CA,Total 8.1 mg/dL Low 8.5-10.1 [facility] Comment on above: Performed By: #### L 500.4050, L503.6030, L100.0100, L503.6550 #### [facility] [address] [place], [address] Chloride [Moles/Vol] 111 mmol/L High 98-107 [facility] Comment on above: Performed By: #### L 500.4050, L503.6030, L100.0100, L503.6550 #### [facility] [address] [place], [address] CO2 [Moles/Vol] 28.0 mmol/L Normal 21.0-32.0 [facility] Comment on above: Performed By: #### L 500.4050, L503.6030, L100.0100, L503.6550 #### [facility] [address] [place], [address] Creatinine [Mass/Vol] 1.06 mg/dL Normal 0.70-1.30 [facility] Comment on above: Result Comment: The validity of the calculated GFR GFRAA in patients over 70 years has not been determined. Clinical correlation is essential. Performed By: #### L 500.4050, L503.6030, L100.0100, L503.6550 #### [facility] [address] [place], [address] ECRCL 48.40 ml/min Normal [facility] Comment on above: Performed By: #### L 500.4050, L503.6030, L100.0100, L503.6550 #### [facility] [address] [place], [address] EST GFR - AA 85 mL/min Normal >60 [facility] Comment on above: Result Comment: Afri can Micronesian GFR Calc Performed By: #### L 500.4050, L503.6030, L100.0100, L503.6550 #### [facility] [address] [place], [address] GAP 1 Low 5-15 [facility] Comment on above: Performed By: #### L 500.4050, L503.6030, L100.0100, L503.6550 #### [facility] [address] [place], [address] GFR/1.73 sq M.predicted among non-blacks MDRD (S/P/Bld) [Vol rate/Area] 70 mL/min/{1.73_m2} Normal >60 [facility] Comment on above: Result Comment: Non- GFR Calc Performed By: #### L 500.4050, L503.6030, L100.0100, L503.6550 #### [facility] [address] [place], [address] Globulin (S) [Mass/Vol] 2.5 g/dL Normal 2.2-4.2 [facility] Comment on above: Performed By: #### L 500.4050, L503.6030, L100.0100, L503.6550 #### [facility] [address] [place], [address] Glucose [Mass/Vol] 94 mg/dL Normal 74-106 [facility] Comment on above: Performed By: #### L 500.4050, L503.6030, L100.0100, L503.6550 #### [facility] [address] [place], [address] Potassium [Moles/Vol] 4.3 mmol/L Normal 3.5-5.1 [facility] Comment on above: Performed By: #### L 500.4050, L503.6030, L100.0100, L503.6550 #### [facility] [address] [place], [address] Sodium [Moles/Vol] 140 mmol/L Normal 136-145 [facility] Comment on above: Performed By: #### L 500.4050, L503.6030, L100.0100, L503.6550 #### [facility] [address] [place], [address] T PROT 5.2 g/dL Low 6.4-8.2 [facility] Comment on above: Performed By: #### L 500.4050, L503.6030, L100.0100, L503.6550 #### [facility] [address] [place], [address] Urea nitrogen [Mass/Vol] 21 mg/dL High 7-18 [facility] Comment on above: Performed By: #### L 500.4050, L503.6030, L100.0100, L503.6550 #### [facility] [address] [place], [address] HH, Hemoglobin AND Hematocri ton 09-20-2023 Hematocrit (Bld) [Volume fraction] 24.7 % Low 40-54 [facility] Comment on above: Performed By: #### L 100.0100, L503.6550, L500.4050, L503.6030 #### [facility] [address] [place], [address] Hemoglobin (Bld) [Mass/Vol] 8.1 g/dL Low 13.0-16.5 [facility] Comment on above: Performed By: #### L 100.0100, L503.6550, L500.4050, L503.6030 #### [facility] [address] [place], [address] Laboratory - Chemistry and C hemistry - challengeOrdered By: Rosemary Fernandez on 09-20-2023 Albumin/Globulin [Mass ratio] 1.1 {ratio} 0.9-2.4 [facility] ALP [Catalytic activity/Vol] 53 U/L 45-117 [facility] ALT [Catalytic activity/Vol] 15 U/L 16-61 [facility] Globulin (S) [Mass/Vol] 2.5 g/dL 2.2-4.2 [facility] Magnesium [Mass/Vol] 2.1 mg/dL 1.6-2.6 [facility] Magnesiumon 09-20-2023 Magnesium [Mass/Vol] 2.1 mg/dL Normal 1.6-2.6 [facility] Comment on above: Performed By: #### L 500.4050, L503.6030, L100.0100, L503.6550 #### [facility] [address] [place], [address] Phosphoruson 09-20-2023 Phosphate [Mass/Vol] 3.4 mg/dL Normal 2.5-4.9 [facility] Comment on above: Performed By: #### L 500.4050, L503.6030, L100.0100, L503.6550 #### [facility] [address] [place], [address] Serum or plasma thyroid stim ulating hormone (TSH) measurement (units/volume)Ordered By: Rosemary Fernandez on 09-20-2023 TSH Qn 1.09 uIU/mL 0.358-3.74 [facility] Surgery Specimen Level Alexandr 09-20-2023 Surgery Specimen Level IV Patient Age/Sex Location Account Attending Physician DORIAN CRAMER 88/M MS3 [id number] Dr. Rosemary Fernandez DO Specimen: [id number] Received: 09/21/23 Status: FARTUN Garcia Num: [id number] Spec Type: COLON BX Subm Dr: Lionel Lee DO HEADER OPERATION: Colonoscopy, polypectomy, clip application PRE-OP DIAGNOSIS: Gastrointestinal bleeding, Bright red blood per rectum, Acute on chronic anemia TISSUE SUBMITTED: Sigmoid polyps MICROSCOPIC DIAGNOSIS Sigmoid polyp, polypectomy: Fragments of tubular adenoma. MANA/ 09/22/23 MICROSCOPIC DESCRIPTION Slides are reviewed. GROSS DESCRIPTION Received in fixative is one container labeled with the patient's name and designated Sigmoid polyp. The specimen consists of multiple irregular fragments of light lora soft tissue that in aggregate measure 2.5 x 1.0 x 0.6 cm. Also present in the container are two larger polypoid fragments measuring in aggregate 2.0 x 1.0 x 0.6cm. The specimen is totally submitted in two cassettes. Cassette 1- smaller fragments, Cassette 2- larger polypoid fragments. 09/21/23 TC:1 [facility]:[id number] Patient Age/Sex Location Account Attending Physician DORIAN CRAMER 88/M MS3 [id number] Dr. Rosemary Fernandez DO Signed (signature on file) Dr. Santos Watters MD 09/22/23 1123 Normal [facility] Comment on above: Performed By: #### L 100.0100, L503.6550, L500.4050, L503.6030 #### [facility] [address] [place], [address] Thin prep Papanicolaou smear with manual screeningOrdered By: Rosemary Fernandez on 09-20-2023 Thin prep Papanicolaou smear with manual screening 2.7 g/dL 3.2-5.0 [facility] Thin prep Papanicolaou smear with manual screening 12 U/L 15-37 [facility] Thyroid Stim Hormone (TSH)on 09-20-2023 TSH 1.09 uIU/mL Normal 0.358-3.74 [facility] Comment on above: Performed By: #### L 500.4050, L503.6030, L100.0100, L503.6550 #### [facility] [address] [place], [address] Abdomen/Pelvis W IV Cont ONL Yon 09-19-2023 Abdomen/Pelvis W IV Cont ONLY [facility] Imaging Services [address] [place] [address] Abdomen/Pelvis W IV Cont ONLY MR#: [id number] Acct: [id number] Name: DORIAN CRAMER Rep #: [id number] : 1935 M 88 From: Felix buck MD PCP: Dr. Shoshana Ulrich MD Status: [facility] ER Study: Abdomen/Pelvis W IV Cont ONLY Date of Exam: Exam# [id number] Ordering Dr: Russel Pal DO [id number] STUDY: CT ABDOMEN AND PELVIS WITH CONTRAST REASON FOR EXAM: Male, 88 years old. Bright red blood in the stool. Left lower quadrant pain. RADIATION DOSAGE (If Supplied By Facility): CTDIvol = ( 15.00 ) mGy, DLP = ( 583.65 ) mGycm TECHNIQUE: Transaxial images were obtained from the dome of the diaphragm to the symphysis pubis without oral contrast. IV 100mL Isovue-300 was administered. Sagittal and coronal images were reconstructed. Individualized dose optimization techniques were used for this CT. COMPARISON: Comparison is made with prior study dated September 08, 2021. FINDINGS: Stable pleural-parenchymal changes in the posterior medial segment of the right lower lobe suggestive of round atelectasis. Coronary artery calcification. Stable 9.2 cm hypodensity in the anterior aspect of the right lobe of the liver inferiorly. Normal gallbladder and extrahepatic biliary system. There are multiple benign calcified granulomata of the spleen. Normal pancreas. There is a small, circumscribed, smooth, low attenuation right adrenal mass, consistent with an adrenal adenoma. This measures 1.8 cm. Normal left adrenal gland. There is a 3.4 mm nonobstructive calculus in the posterior mid pole calyx of the right kidney. Stable 1.3 cm cyst in the lower pole. 2.4 cm cyst in the anterior upper pole of the left kidney. Normal visualized stomach. Normal small intestine. There are multiple colonic diverticula consistent with diverticulosis. The appendix is visualized and appears normal. There is diffuse atherosclerotic calcification of the abdominal aorta, without a demonstrated aneurysm. Normal inferior vena cava. Normal retroperitoneum. Mild degree of diffuse bladder wall thickening although the bladder was not completely distended at this time. 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 There is evidence of a prior TURP. Normal abdominal wall. There are diffuse degenerative changes of the visualized lumbar spine. Loss of the normal lumbar lordosis. Spinal cord stimulator and electrodes are seen. CT/Abdomen/Pelvis W IV Cont ONLY IMPRESSION: Diffuse diverticulosis of the sigmoid colon. Stable adenoma in the right adrenal gland. Stable bilateral renal cysts. Findings suggestive of a round atelectasis in the right lower lobe. Electronically Signed: Felix Dykes MD at 10:16 EDT , CC: Dr. Russel Pal DO; Dr. Shoshana Ulrich MD Kitchen Steward: Signed Normal [facility] Absolute lymphocyte countOrd ered By: Russel Pal on 09-19-2023 Lymphocytes Auto (Unsp spec) [#/Vol] 1.04 10*3/uL 0.83-4.51 [facility] Automated lymphocyte count a s percentage of total leukocytesOrdered By: Russel Pal on 09-19-2023 Lymphocytes/100 WBC Auto (Unsp spec) 15.3 % 19-41 [facility] BRCon 09-19-2023 RC Normal [facility] Comment on above: Result Comment: [id number] AN RC TRANSFUSED 09/20/23 1715 Performed By: #### L 100.0100, L503.6550, L500.4050, L503.6030 #### [facility] [address] [place], [place], [address] Basophil percentageOrdered B y: Russel Pal on 09-19-2023 Basophils/100 WBC (Bld) 0.6 % 0-1 [facility] Bilirubin [Mass/Vol] 0.30 mg/dL 0.20-1.00 [facility] Comment on above: For patients on eltr ombopag therapy, use of Dimension [place] TBIL is not recommended. Chloride [Moles/Vol] 111 mmol/L 98-107 [facility] Eosinophils/100 WBC (Bld) 8.1 % 0-5 [facility] Glucose [Mass/Vol] 109 mg/dL 74-106 [facility] Comment on above: Fasting Glucose resu lt from 100 to 125 mg/dL suggests IMPAIRED HOMEOSTASIS per A.D.A. criteria. Hemoglobin (Bld) [Mass/Vol] 10.9 g/dL 13.0-16.5 [facility] Monocytes/100 WBC (Bld) 6.9 % 0-10 [facility] Neutrophils (Bld) [#/Vol] 4.6 10*3/uL 2.0-7.7 [facility] Neutrophils/100 WBC (Bld) 68.4 % 47-70 [facility] Potassium [Moles/Vol] 4.5 mmol/L 3.5-5.1 [facility] Protein [Mass/Vol] 6.3 g/dL 6.4-8.2 [facility] Sodium [Moles/Vol] 139 mmol/L 136-145 [facility] WBC (Bld) [#/Vol] 6.8 10*3/uL 4.4-11.0 [facility] CBC W/Diff, Automatedon 05-0 6-2023 Absolute Lymph 1.04 X10 3/uL Normal 0.83-4.51 [facility] Comment on above: Performed By: #### L 500.4050, L503.6030, L100.0100, L503.6550 #### [facility] [address] [place], [address] Absolute Neut 4.6 X10 3/uL Normal 2.0-7.7 [facility] Comment on above: Performed By: #### L 500.4050, L503.6030, L100.0100, L503.6550 #### [facility] [address] [place], [address] Basophils/100 WBC (Bld) 0.6 % Normal 0-1 [facility] Comment on above: Performed By: #### L 500.4050, L503.6030, L100.0100, L503.6550 #### [facility] [address] [place], [address] Eosinophils/100 WBC (Bld) 8.1 % High 0-5 [facility] Comment on above: Performed By: #### L 500.4050, L503.6030, L100.0100, L503.6550 #### [facility] [address] [place], [address] Erythrocyte distribution width (RBC) [Ratio] 14.9 % High 11.6-14.6 [facility] Comment on above: Performed By: #### L 500.4050, L503.6030, L100.0100, L503.6550 #### [facility] [address] [place], [address] Hematocrit (Bld) [Volume fraction] 34.0 % Low 40-54 [facility] Comment on above: Performed By: #### L 500.4050, L503.6030, L100.0100, L503.6550 #### [facility] [address] [place], [address] Hemoglobin (Bld) [Mass/Vol] 10.9 g/dL Low 13.0-16.5 [facility] Comment on above: Performed By: #### L 500.4050, L503.6030, L100.0100, L503.6550 #### [facility] [address] [place], [address] IG% 0.700 Normal 0.0-0.9 [facility] Comment on above: Result Comment: IG% - Immature Granulocytes (promyelocytes, myelocytes and metamyelocytes) > 1% indicates that a LEFT SHIFT is Present. Performed By: #### L 500.4050, L503.6030, L100.0100, L503.6550 #### [facility] [address] [place], [address] Lymphocytes/100 WBC (Bld) 15.3 % Low 19-41 [facility] Comment on above: Performed By: #### L 500.4050, L503.6030, L100.0100, L503.6550 #### [facility] [address] [place], [address] MCH (RBC) [Entitic mass] 32.1 pg High 27.0-32.0 [facility] Comment on above: Performed By: #### L 500.4050, L503.6030, L100.0100, L503.6550 #### [facility] [address] [place], [address] MCHC (RBC) [Mass/Vol] 32.1 g/dL Normal 32-36 [facility] Comment on above: Performed By: #### L 500.4050, L503.6030, L100.0100, L503.6550 #### [facility] [address] [place], [address] MCV (RBC) [Entitic vol] 100.0 fL High 80-94 [facility] Comment on above: Performed By: #### L 500.4050, L503.6030, L100.0100, L503.6550 #### [facility] [address] [place], [address] Monocytes/100 WBC (Bld) 6.9 % Normal 0-10 [facility] Comment on above: Performed By: #### L 500.4050, L503.6030, L100.0100, L503.6550 #### [facility] [address] [place], [address] Neutrophils/100 WBC (Bld) 68.4 % Normal 47-70 [facility] Comment on above: Performed By: #### L 500.4050, L503.6030, L100.0100, L503.6550 #### [facility] [address] [place], [address] Nucleated RBC (Bld) [#/Vol] 0 10*3/uL Normal 0-5 [facility] Comment on above: Performed By: #### L 500.4050, L503.6030, L100.0100, L503.6550 #### [facility] [address] [place], [address] Platelet mean volume (Bld) [Entitic vol] 10.6 fL Normal 6.2-12.0 [facility] Comment on above: Performed By: #### L 500.4050, L503.6030, L100.0100, L503.6550 #### [facility] [address] [place], [address] Platelets (Bld) [#/Vol] 193 10*3/uL Normal 150-450 [facility] Comment on above: Performed By: #### L 500.4050, L503.6030, L100.0100, L503.6550 #### [facility] [address] [place], [address] RBC (Bld) [#/Vol] 3.40 10*6/uL Low 4.6-6.2 [facility] Comment on above: Performed By: #### L 500.4050, L503.6030, L100.0100, L503.6550 #### [facility] [address] [place], [address] RDW SD 55.0 fl High 35.1-43.9 [facility] Comment on above: Performed By: #### L 500.4050, L503.6030, L100.0100, L503.6550 #### [facility] [address] [place], [address] WBC (Bld) [#/Vol] 6.8 10*3/uL Normal 4.4-11.0 [facility] Comment on above: Performed By: #### L 500.4050, L503.6030, L100.0100, L503.6550 #### [facility] [address] [place], [address] CDIFF (PCR)on 09-19-2023 CDIFF Is the patient recei ving laxatives? N New/unexplained onset of 3 or more stools in past 24 hrs? Y A positive C. difficile molecular test does not differentiate between an active C. difficile infection and C. difficile colonization. Use clinical judgement and paired toxin/antigen testing to identify true infection and need for treatment. C diff DNA Spec Ql JOSTIN+probe Reference Range: Negative [employer] GeneXpert: polymerase chain reaction (PCR) 027 027 NAP1-B1 Presumptive Negative *for epidemiolologic???use C. Diff PCR Negative- No toxigenic C. Diff Detected Normal [facility] Comment on above: Performed By: #### L 100.0100, L503.6550, L500.4050, L503.6030 #### [facility] [address] [place], [address] Clostridioides difficile nuc leic acid assay by PCROrdered By: Russel Pal on 09-19-2023 C. difficile DNA JOSTIN+probe Ql (Unsp spec) [facility] Comprehensive Metabolic Prof ilon 09-19-2023 Albumin [Mass/Vol] 3.2 g/dL Normal 3.2-5.0 [facility] Comment on above: Performed By: #### L 500.4050, L503.6030, L100.0100, L503.6550 #### [facility] [address] [place], [address] Albumin/Globulin [Mass ratio] 1.0 {ratio} Normal 0.9-2.4 [facility] Comment on above: Performed By: #### L 500.4050, L503.6030, L100.0100, L503.6550 #### [facility] [address] [place], [address] ALK P 62 U/L Normal 45-117 [facility] Comment on above: Performed By: #### L 500.4050, L503.6030, L100.0100, L503.6550 #### [facility] [address] [place], [address] ALT [Catalytic activity/Vol] 18 U/L Normal 16-61 [facility] Comment on above: Performed By: #### L 500.4050, L503.6030, L100.0100, L503.6550 #### [facility] [address] [place], [address] AST [Catalytic activity/Vol] 15 U/L Normal 15-37 [facility] Comment on above: Performed By: #### L 500.4050, L503.6030, L100.0100, L503.6550 #### [facility] [address] [place], [address] Bilirubin [Mass/Vol] 0.30 mg/dL Normal 0.20-1.00 [facility] Comment on above: Result Comment: For patients on eltrombopag therapy, use of Dimension [place] TBIL is not recommended. Performed By: #### L 500.4050, L503.6030, L100.0100, L503.6550 #### [facility] [address] [place], [address] BUN/CRE 24.0 RATIO High 10-20 [facility] Comment on above: Performed By: #### L 500.4050, L503.6030, L100.0100, L503.6550 #### [facility] [address] [place], [address] CA,Total 8.8 mg/dL Normal 8.5-10.1 [facility] Comment on above: Performed By: #### L 500.4050, L503.6030, L100.0100, L503.6550 #### [facility] [address] [place], [id number] Chloride [Moles/Vol] 111 mmol/L High 98-107 [facility] Comment on above: Performed By: #### L 500.4050, L503.6030, L100.0100, L503.6550 #### [facility] [address] [place], [address] CO2 [Moles/Vol] 26.0 mmol/L Normal 21.0-32.0 [facility] Comment on above: Performed By: #### L 500.4050, L503.6030, L100.0100, L503.6550 #### [facility] [address] [place], [address] Creatinine [Mass/Vol] 1.25 mg/dL Normal 0.70-1.30 [facility] Comment on above: Result Comment: The validity of the calculated GFR GFRAA in patients over 70 years has not been determined. Clinical correlation is essential. Performed By: #### L 500.4050, L503.6030, L100.0100, L503.6550 #### [facility] [address] [place], [address] ECRCL 39.46 ml/min Normal [facility] Comment on above: Performed By: #### L 500.4050, L503.6030, L100.0100, L503.6550 #### [facility] [address] [place], [address] EST GFR - AA 70 mL/min Normal >60 [facility] Comment on above: Result Comment: Afri can [place]ron[place] GFR Calc Performed By: #### L 500.4050, L503.6030, L100.0100, L503.6550 #### [facility] [address] [place], [address] GAP 2 Low 5-15 [facility] Comment on above: Performed By: #### L 500.4050, L503.6030, L100.0100, L503.6550 #### [facility] [address] [place], [address] GFR/1.73 sq M.predicted among non-blacks MDRD (S/P/Bld) [Vol rate/Area] 58 mL/min/{1.73_m2} Low >60 [facility] Comment on above: Result Comment: Non- GFR Calc Performed By: #### L 500.4050, L503.6030, L100.0100, L503.6550 #### [facility] [address] [place], [id number] Globulin (S) [Mass/Vol] 3.1 g/dL Normal 2.2-4.2 [facility] Comment on above: Performed By: #### L 500.4050, L503.6030, L100.0100, L503.6550 #### [facility] [address] [place], [id number] Glucose [Mass/Vol] 109 mg/dL High 74-106 [facility] Comment on above: Result Comment: Fast ing Glucose result from 100 to 125 mg/dL suggests IMPAIRED HOMEOSTASIS per A.D.A. criteria. Performed By: #### L 500.4050, L503.6030, L100.0100, L503.6550 #### [facility] [address] [place], [address] Potassium [Moles/Vol] 4.5 mmol/L Normal 3.5-5.1 [facility] Comment on above: Performed By: #### L 500.4050, L503.6030, L100.0100, L503.6550 #### [facility] [address] [place], [id number] Sodium [Moles/Vol] 139 mmol/L Normal 136-145 [facility] Comment on above: Performed By: #### L 500.4050, L503.6030, L100.0100, L503.6550 #### [facility] [address] [place], [id number] T PROT 6.3 g/dL Low 6.4-8.2 [facility] Comment on above: Performed By: #### L 500.4050, L503.6030, L100.0100, L503.6550 #### [facility] [address] [place], [id number] Urea nitrogen [Mass/Vol] 30 mg/dL High 7-18 [facility] Comment on above: Performed By: #### L 500.4050, L503.6030, L100.0100, L503.6550 #### [facility] [address] [place], [address] Determination of erythrocyte mean corpuscular volume (MCV)Ordered By: Russel Pal on 09-19-2023 MCV (RBC) [Entitic vol] 100.0 fL 80-94 [facility] ENTERIC PATHOGEN PANEL STOOL on 09-19-2023 EP PANEL Is the patient recei ving laxatives? N New/unexplained onset of 3 or more stools in past 24 hrs? Y Not detected for Campylobacter group, Salmonella species, Shigella species, Vibrio Group, Yersinia enterocolitica, EHEC (Shiga Toxin 1, Shiga Toxin 2), Norovirus Gl/Gll, and Rotavirus A. Other common stool pathogens are not detected on this panel include: Aeromonas/Plesiomonas or parasites. Order testing for these organisms separately if suspected. This is an amplified DNA test which makes it both specific and sensitive. GI pathogens Pnl Stl JOSTIN+probe Normal Reference Range = Not Detected GI pathogens Pnl Stl JOSTIN+probe Nucleic acid amplification test method CAMPYLOBACTER Not Detected Norovirus Not Detected Rotavirus Not Detected Salmonella Not Detected Shiga Toxin Not Detected Shigella sp. Not Detected VIBRIO Not Detected Yersinia Not Detected * This is an amended result. * A prior result that was reported as final has been changed. 09/20/23718 by PAWAN Previously reported as: FINAL Normal [facility] Comment on above: Performed By: #### L 100.0100, L503.6550, L500.4050, L503.6030 #### [facility] [address] [place], [place], [id number] Emergency Department Summary on 09-19-2023 Emergency Department Summary [facility] Medical Records Department [address] [place] [address] Emergency Department Summary 09/19/23 MR#: [id number] Acct: [id number] Name: DORIAN CRAMER Rep #: [id number] : 1935 88 From: Russel Pal DO PCP: Dr. Shoshana Ulrich MD Status:ADM IN [id number] HPI HPI - GI History of Present Illness Chief Complaint: GI Bleed Narrative Narrative: 88-year-old male presenting with bright red bleeding per rectum. He has a history of hemorrhoids but states they are not bleeding. He is not on any blood thinners. He states he has a history of GI bleed in the past a couple of years ago but states he does not think he was admitted to the hospital. Patient states that last night he had a bit of a headache and took a couple of aspirin. This morning he states he does not feel too unwell but noticed he is having some pressure in his lower abdomen and points to just below the umbilicus and to the left. Patient states that he had a couple of hours of blood in his stool with the pressure. The pressure was intermittent. He is not lightheaded, dizzy, nauseous. Denies surgical history in the abdomen. Denies urinary complaints. 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 Prostate disease Restless legs Shortness of breath on exertion Shoulder pain Smoker Wears glasses Wears hearing aid in both ears Home Medications albuterol sulfate 90 mcg/actuation aerosol inhaler 1 puff inhalation Q4H PRN sob/wheezing 09/08/21 [History Last Taken Unknown] finasteride 5 mg tablet 5 mg PO DAILY 09/08/21 [History Last Taken Unknown] amlodipine 5 mg tablet 5 mg PO DAILY 07/02/22 [History Last Taken 09/18/23] gabapentin 100 mg capsule 100 mg PO QHS 10/27/22 [History Last Taken 09/18/23] oxycodone 5 mg capsule 5 mg PO Q6H PRN pain 3 days #10 caps 11/03/22 [Rx Last Taken 09/18/23] artifi.tears(hypromellose)( PF) 1.7 % eye drops with applicator 1 drp EACH EYE DAILY PRN dry eyes 09/19/23 [History Last Taken Unknown] budesonide 160 mcg-glycopyr 9 mcg-formot 4.8 mcg/actuation HFA inhaler (Breztri Aerosphere) 2 inh inhalation BID 09/19/23 [History Last Taken 09/18/23] nystatin 100,000 unit/gram topical cream 1 applic topical 4X/DAY PRN skin irritation 09/19/23 [History Last Taken Unknown] oxybutynin chloride 10 mg tablet,extended release 24 hr 10 mg PO DAILY 09/19/23 [History Last Taken Unknown] Allergy/AdvReac Type Severity Reaction Status Date / Time ibuprofen [From Motrin] Allergy Swelling Verified 09/19/23 08:25 Surgical History History of cystoscopy History of esophagogastroduodenoscopy (EGD) History of hand surgery History of parotidectomy History of varicose vein stripping Hx of basal cell carcinoma excision Hx of decompressive lumbar laminectomy Hx of finger joint replacement Hx of myringotomy S/P insertion of spinal cord stimulator Social History household members: spouse Smoking Status: Current every day smoker tobacco type: cigarettes alcohol intake: current alcohol intake frequency: 0-2 drinks per day Alcohol type: hard liquor ROS ROS ED Constitutional Constitutional ED: Denies chills, fever(s) or sweats Eyes Eyes: Denies blurry vision or change in vision ENT ENT ED: Denies ear pain or sore throat Cardiovascular Cardiovascular: Denies chest pain, palpitations or racing heartbeat Respiratory/Chest Respiratory/Chest: Denies cough, dyspnea or sputum Gastrointestinal Gastrointestinal: Reports abdominal pain, diarrhea and other Details: Bright red bleeding per rectum ; Denies constipation, nausea or vomiting Genitourinary Genitourinary ED: Denies dysuria, hematuria or urinary frequency Musculoskeletal Musculoskeletal: Denies arthralgias, myalgias or neck pain Integumentary Denies abscess, Abrasions or rash Neurologic Neurologic: Denies headache(s), paresthesias or weakness Psychiatric Psychiatric: Denies anxiety, depression, suicidal ideation or suicidal thoughts Endocrine Endocrinology: Denies polydipsia or polyuria EXAM Physical Exam Const Vital Signs: 09/19/23 08:25 09/19/23 10:24 09/19/23 12:00 Temperature 96.9 F L Temperature Source Temporal Pulse Rate 90 68 87 Respiratory Rate 18 18 18 Blood Pressure 153/83 H 133/60 H 119/71 Blood Pressure Mean 106 84 87 Pulse Ox 99 97 97 Oxygen Delivery Method Room Air Ro (more content not included)... Normal [facility] Erythrocyte distribution wid th ratioOrdered By: Russel Pal on 09-19-2023 Erythrocyte distribution width (RBC) [Ratio] 14.9 % 11.6-14.6 [facility] Erythrocyte distribution wid th standard deviationOrdered By: Russel Pal on 09-19-2023 Erythrocyte distribution width (RBC) [Entitic vol] 55.0 fL 35.1-43.9 [facility] H AND P Exam - [facility] 09-19-2023 H&P Exam - Hospitalist [facility] Medical Records Department [address] [place] [address] H P Exam - Hospitalist 09/19/23 1217 MR#: [id number] Acct: [id number] Name: DORIAN CRAMER Rep #: [id number] : 1935 88 From: Rosemary Fernandez DO PCP: Dr. Shoshana Ulrich MD Status:ADM IN Location: [facility] MD655-5 HPI - General General Date of Admission: 09/19/23 Date of Service: 09/19/23 Chief Complaint: BRBPR HPI Narrative DORIAN CRAMER, is a 88 M who presented to the emergency department [facility] on 09/19/2023 with bright red blood per rectum. He stated it started on the day of presentation. He reported when he woke up this morning he felt okay but had some pressure in his lower abdomen just below the umbilicus into the left. He stated after that he had a couple bouts of loose stool with blood noted that relieved the pressure. He denied any lightheadedness, dizziness, nausea, or vomiting. He does of diverticulosis and diverticulitis and remote history of GI bleeding but does not think he was admitted to the hospital at that time. He is not currently on anticoagulation but did complain of a headache last evening at which time he took 2 aspirin. Headache is resolved at this time. He indicated if he was not having blood in his stool he would not be in the emergency department. Vital signs on presentation showed temperature 96.9, heart rate was 90, blood pressure was 153/83, respiratory is 18 oxygen saturations are 99% on room air. CBC showed an anemia that is slightly worse than baseline at 10.9. Baseline appears to be between 11 and 12. Platelet count was normal and he had no leukocytosis. Coags were normal. His chemistry panel was overtly unremarkable with a chronic stable elevated BUN and creatinine and a normal ratio. Serum creatinine on presentation was 1.25 (baseline 1-1.3). His glucose was 109. LFTs were unremarkable. CT abdomen pelvis was done and showed diffuse diverticulosis in the sigmoid colon, stable adenoma of the right adrenal gland, stable bilateral renal cysts and round atelectasis in the right lower lobe. Emergency department discussed the case with gastroenterology and they recommended admission given his ongoing bleeding and diarrhea. Enteric panel and C. difficile were ordered by the emergency department and found to be negative. 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 Prostate disease Restless legs Shortness of breath on exertion Shoulder pain Smoker Wears glasses Wears hearing aid in both ears Home Medications albuterol sulfate 90 mcg/actuation aerosol inhaler 1 puff inhalation Q4H PRN sob/wheezing 09/08/21 [History Last Taken Unknown] finasteride 5 mg tablet 5 mg PO DAILY 09/08/21 [History Last Taken Unknown] amlodipine 5 mg tablet 5 mg PO DAILY 07/02/22 [History Last Taken 09/18/23] gabapentin 100 mg capsule 100 mg PO QHS 10/27/22 [History Last Taken 09/18/23] oxycodone 5 mg capsule 5 mg PO Q6H PRN pain 3 days #10 caps 11/03/22 [Rx Last Taken 09/18/23] artifi.tears(hypromellose)( PF) 1.7 % eye drops with applicator 1 drp EACH EYE DAILY PRN dry eyes 09/19/23 [History Last Taken Unknown] budesonide 160 mcg-glycopyr 9 mcg-formot 4.8 mcg/actuation HFA inhaler (Breztri Aerosphere) 2 inh inhalation BID 09/19/23 [History Last Taken 09/18/23] nystatin 100,000 unit/gram topical cream 1 applic topical 4X/DAY PRN skin irritation 09/19/23 [History Last Taken Unknown] oxybutynin chloride 10 mg tablet,extended release 24 hr 10 mg PO DAILY 09/19/23 [History Last Taken Unknown] Allergy/AdvReac Type Severity Reaction Status Date / Time ibuprofen [From Motrin] Allergy Swelling Verified 09/19/23 08:25 no significant family history Surgical History History of cystoscopy History of esophagogastroduodenoscopy (EGD) History of hand surgery History of parotidectomy History of varicose vein stripping Hx of basal cell carcinoma excision Hx of decompressive lumbar laminectomy Hx of finger joint replacement Hx of myringotomy S/P insertion of spinal cord stimulator Social History (Updated 09/19/23 @ 17:[address] Rosemary Fernandez DO) household members: spouse housing: house Smoking Status: Current every day smoker tobacco type: cigarettes Smoking packs per day: 0.5 Smoking cigarettes per day: 10.0 alcohol intake: former substance use type: does not use ROS Constitutional Constitutional: Denies anorexia, change in weight, chills, fatigue, fever(s), richar (more content not included)... Normal [facility] HH, Hemoglobin AND Hematocri ton 09-19-2023 Hematocrit (Bld) [Volume fraction] 27.9 % Low 40-54 [facility] Comment on above: Performed By: #### L 100.0100, L503.3350, L500.4050, L503.6030 #### [facility] [address] [place], [address] Hemoglobin (Bld) [Mass/Vol] 8.7 g/dL Low 13.0-16.5 [facility] Comment on above: Performed By: #### L 100.0100, L503.6550, L500.4050, L503.6030 #### [facility] [address] [place], [address] Hematocrit (Bld) [Volume fraction] 31.4 % Low 40-54 [facility] Comment on above: Performed By: #### L 100.0100, L503.6550, L500.4050, L503.6030 #### [facility] [address] [place], [address] Hemoglobin (Bld) [Mass/Vol] 9.8 g/dL Low 13.0-16.5 [facility] Comment on above: Performed By: #### L 100.0100, L503.6550, L500.4050, L503.6030 #### [facility] [address] [place], [address] Hematocrit Auto (Bld) [Volum e fraction]Ordered By: Russel Pal on 09-19-2023 Hematocrit (Bld) [Volume fraction] 34.0 % 40-54 [facility] Immature granulocytes/100 WB C Auto (Bld)Ordered By: Russel Pal on 09-19-2023 Immature granulocytes/100 WBC (Bld) 0.700 % 0.0-0.9 [facility] Comment on above: IG% - Immature Granu locytes (promyelocytes, myelocytes and metamyelocytes) > 1% indicates that a LEFT SHIFT is Present. Laboratory - Chemistry and C hemistry - challengeOrdered By: Russel Pal on 09-19-2023 Albumin/Globulin [Mass ratio] 1.0 {ratio} 0.9-2.4 [facility] ALP [Catalytic activity/Vol] 62 U/L 45-117 [facility] ALT [Catalytic activity/Vol] 18 U/L 16-61 [facility] CO2 [Moles/Vol] 26.0 mmol/L 21.0-32.0 [facility] Globulin (S) [Mass/Vol] 3.1 g/dL 2.2-4.2 [facility] Urea nitrogen/Creatinine [Mass ratio] 24.0 mg/mg 10-20 [facility] Laboratory - CoagulationOrde red By: Russel Pal on 09-19-2023 INR Coag (Bld) [Relative time] 1.1 {INR} [facility] PT Coag (PPP) [Time] 13.8 s 11.7-14.9 [facility] Laboratory - Hematology and Cell countsOrdered By: Russel Pal on 09-19-2023 MCH (RBC) [Entitic mass] 32.1 pg 27.0-32.0 [facility] MCHC (RBC) [Mass/Vol] 32.1 g/dL 32-36 [facility] Nucleated RBC/100 WBC (Bld) [Ratio] 0 % 0-5 [facility] Platelet mean volume (Bld) [Entitic vol] 10.6 fL 6.2-12.0 [facility] Platelets (Bld) [#/Vol] 193 10*3/uL 150-450 [facility] MR/CON.PCM.GIon 09-19-2023 MR/CON.PCM.GI [facility] Medical Records Department [address] [place] [address] Consultation - GI 09/19/23 1750 MR#: [id number] Acct: [id number] Name: DORIAN CRAMER Rep #: [id number] : 1935 88 From: Lionel Friend DO PCP: Dr. Shoshana Ulrich MD Status:ADM IN Location: [facility] [place] [id number] HPI Consult Data Date of Consult: 09/19/23 HPI Narrative Reason for Consultation: GI bleed HPI Narrative: DORIAN CRAMER, is a 88-year-old male presenting with bright red bleeding per rectum. He has a history of hemorrhoids but states they are not bleeding. He is not on any blood thinners. He states he has a history of GI bleed in the past a couple of years ago but states he does not think he was admitted to the hospital. Patient states that last night he had a bit of a headache and took a couple of aspirin. This morning he states he does not feel too unwell but noticed he is having some pressure in his lower abdomen and points to just below the umbilicus and to the left. Patient states that he had a couple of hours of blood in his stool with the pressure. The pressure was intermittent. He is not lightheaded, dizzy, nauseous. Denies surgical history in the abdomen. Denies urinary complaints. CT scan : Diffuse diverticulosis of the sigmoid colon. Stable adenoma in the right adrenal gland. Stable bilateral renal cysts. Findings suggestive of a round atelectasis in the right lower lobe. 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 Prostate disease Restless legs Shortness of breath on exertion Shoulder pain Smoker Wears glasses Wears hearing aid in both ears Home Medications albuterol sulfate 90 mcg/actuation aerosol inhaler 1 puff inhalation Q4H PRN sob/wheezing 09/08/21 [History Last Taken Unknown] finasteride 5 mg tablet 5 mg PO DAILY 09/08/21 [History Last Taken Unknown] amlodipine 5 mg tablet 5 mg PO DAILY 07/02/22 [History Last Taken 09/18/23] gabapentin 100 mg capsule 100 mg PO QHS 10/27/22 [History Last Taken 09/18/23] oxycodone 5 mg capsule 5 mg PO Q6H PRN pain 3 days #10 caps 11/03/22 [Rx Last Taken 09/18/23] artifi.tears(hypromellose)( PF) 1.7 % eye drops with applicator 1 drp EACH EYE DAILY PRN dry eyes 09/19/23 [History Last Taken Unknown] budesonide 160 mcg-glycopyr 9 mcg-formot 4.8 mcg/actuation HFA inhaler (Breztri Aerosphere) 2 inh inhalation BID 09/19/23 [History Last Taken 09/18/23] nystatin 100,000 unit/gram topical cream 1 applic topical 4X/DAY PRN skin irritation 09/19/23 [History Last Taken Unknown] oxybutynin chloride 10 mg tablet,extended release 24 hr 10 mg PO DAILY 09/19/23 [History Last Taken Unknown] Allergy/AdvReac Type Severity Reaction Status Date / Time ibuprofen [From Motrin] Allergy Swelling Verified 09/19/23 08:25 Family History no significant family his Surgical History History of cystoscopy History of esophagogastroduodenoscopy (EGD) History of hand surgery History of parotidectomy History of varicose vein stripping Hx of basal cell carcinoma excision Hx of decompressive lumbar laminectomy Hx of finger joint replacement Hx of myringotomy S/P insertion of spinal cord stimulator Social History (Updated 09/19/23 @ 17:[address] Rosemary Fernandez DO) household members: spouse housing: house Smoking Status: Current every day smoker tobacco type: cigarettes Smoking packs per day: 0.5 Smoking cigarettes per day: 10.0 alcohol intake: former substance use type: does not use ROS Constitutional Constitutional: Denies anorexia, change in weight, chills, fatigue, fever(s), malaise, night sweats, weakness or other Eyes Eyes: Denies blurry vision, change in eye color, change in vision, discharge from eye(s), double vision, erythema, eye pain, loss of vision or other ENT HEENT: Reports abnormal hearing; Denies dysphagia, ear pain, epistaxis, headache(s), hearing loss, nasal congestion, nasal discharge, post nasal drip, sinus pressure, sore throat or other Cardiovascular Cardiovascular: Denies chest pain, claudication, dyspnea on exertion, edema, lightheadedness, or thopnea, palpitations, paroxysmal nocturnal dyspnea, rapid heart rate, syncope or other Respiratory/Chest Respiratory/Chest: Denies cough, dyspnea, excessive phlegm production, hemoptysis, productive cough, shortness of breath at rest, shortness of breath with exertion, wheezing or other Gastrointestinal Gastrointestinal: Reports abdominal pain, diarrhea and (more content not included)... Normal [facility] No Panel InformationOrdered By: Russel Pal on 09-19-2023 Estimated Creatinine Clearance Calc 39.46 ml/min [facility] Estimated GFR (MDRD) Amer 70 mL/min >60 [facility] Comment on above: GFR Calc Estimated GFR (MDRD) Non-Af Amer 58 mL/min >60 [facility] Comment on above: Non- GFR Calc Prothrombin Time w/INRon INR Coag (PPP) [Relative time] 1.1 {INR} Normal [facility] Comment on above: Performed By: #### L 500.4050, L503.6030, L100.0100, L503.6550 #### [facility] [address] [place], [address] PT Coag (PPP) [Time] 13.8 s Normal 11.7-14.9 [facility] Comment on above: Performed By: #### L 500.4050, L503.6030, L100.0100, L503.6550 #### [facility] [address] [place], [address] RBC Auto (Bld) [#/Vol]Ordere d By: Russel Pal on 09-19-2023 RBC (Bld) [#/Vol] 3.40 10*6/uL 4.6-6.2 [facility] Serum or plasma calcium marlin urement (mass/volume)Ordered By: Russel Pal on 09-19-2023 Calcium [Mass/Vol] 8.8 mg/dL 8.5-10.1 [facility] Serum or plasma creatinine m easurement (mass/volume)Ordered By: Russel Pal on 09-19-2023 Creatinine [Mass/Vol] 1.25 mg/dL 0.70-1.30 [facility] Comment on above: The validity of the calculated GFR & GFRAA in patients over 70 years has not been determined. Clinical correlation is essential. Serum or plasma urea nitroge n measurement (mass/volume)Ordered By: Russel Pal on 09-19-2023 Urea nitrogen [Mass/Vol] 30 mg/dL 7-18 [facility] Stool Lactoferrin/WBCon 05-0 WBCST Is the patient recei ving laxatives? N New/unexplained onset of 3 or more stools in past 24 hrs? Y Normal Reference Range = Negative Fecal WBC Lactoferrin Negative: No Fecal WBC Lactoferrin present Normal [facility] Comment on above: Performed By: #### L 100.0100, L503.6550, L500.4050, L503.6030 #### [facility] [address] [place], [address] Stool enteric pathogen panel by probe and target amplification methodOrdered By: Russel Pal on 09-19-2023 Gastrointestinal pathogens panel JOSTIN+probe (Stl) [facility] Stool lactoferrin detection by immunoassayOrdered By: Russel Pal on 09-19-2023 Lactoferrin IA Ql (l) [facility] Thin prep Papanicolaou smear with manual screeningOrdered By: Russel Pal on 09-19-2023 Thin prep Papanicolaou smear with manual screening 3.2 g/dL 3.2-5.0 [facility] Thin prep Papanicolaou smear with manual screening 15 U/L 15-37 [facility] Thin prep Papanicolaou smear with manual screening 2 5-15 [facility] Type AND Screenon 09-19-2023 ABO and Rh group Nom (Bld) Blood group A Rh(D) positive Normal [facility] Comment on above: Order Comment: HGI Performed By: #### L 500.4050, L503.6030, L100.0100, L503.6550 #### [facility] [address] [place], [place], [id number] PT D/C Summary (1)on 024 PT D/C Summary (1) [facility] Physical Therapy [facility] [place] [address] / REHABILITATION SERVICES DISCHARGE SUMMARY MR#: [id number] Acct: [id number] Name: DORIAN CRAMER Rep #: [id number] : 1935 88 From: Pola Bustamante PT, Cert. T, OCS Referring Dr.: Dr. Shoshana Ulrich MD Status: RE G RCR Insurance: [employer]URANCE Discharge Summary D/C summary: It has been my pleasure to treat DORIAN CRAMER referred by Dr. Shoshana Ulrich MD, with the diagnosis of STRAIN OF MUSCLE ,FASCIA NECK ,STARIN OF MUSCLE NECK WALL OF THORACIC for a total of 8 visit(s). Discharge Date: 09/05/23 Please see the following information for a summary of their discharge status. Subjective Subjective: Turn neck to drive Pain Bilateral Neck: Pain Intensity (Out of 10): 0 Bilateral Shoulder: Pain Intensity (Out of 10): 0 Overall Improvement % Improvement: 90 Objective Objective/Function: POSTURE: mod thoracic kyphosis ,head forward flexed ,hips/knees flexed NEURO: denies paresthesia/tingling ,reflexes C5-6-7 / PALPATION: tender UT/levator ,paraspinals ,occiput GAIT: ambulates with cane AROM: WFL shoulders MMT: BUE grossly 4/5 ,shoulders 4-/5 CERVICAL ROM: flexion min loss ,extension MIN/MOD loss pain ,lateral flexion/rotation MIN/mod loss right ,MIN/MOD loss left Goals Goal 1:: Patient to be I with HEP for neck Goal Progress: Goal Met Goal 2:: Patient to demonstrate 40-50% improvement with less pain and improved function Goal 3:: Patient to improve cervical ROM for function of recovery to drive car and ADLS Goal Progress: Goal Met Goal 4:: Patient to improve neck oswestry score by 5 points to improve QOL and function Goal Progress: Goal Met Plan Plan: D/C To HEP D/C Information Discharge Comments: HEP d/c sentence: If there are questions or concerns regarding this patient's physical therapy, please feel free to call me at [phone]. Thank you for the referral of this patient. Sincerely, Pola Bustamante, PT, Cert MDT, OCS Balance/Gait/Functional tests Balance/Special Test Scores Oswestry Neck Score: 3 Improvement % Improvement: 90 09/06/23 1451 CC: Dr. Shoshana Ulrich MD JLA Signed Normal [facility] 12 Lead EKGon 08-11-2023 12 [facility] [address] [place] [address] 12 Lead EKG 08/11/23 1152 MR#: [id number] Acct: [id number] Name: DORIAN CRAMER Rep #: [id number] : 1935 88 From: Stefan Orr MD Attending Dr: Dr. Sunny Smiley MD Statu s: REG CLI Ordering Dr: Sunny Smiley MD Date: 4 Location: [facility] Sex: M C Admitted: Test Reason : PRE-OP Blood Pressure : / mmHG Vent. Rate : 078 BPM Atrial Rate : 078 BPM P-R Int : 266 ms QRS Dur : 106 ms QT Int : 396 ms P-R-T Axes : 079 -77 065 degrees QTc Int : 451 ms Sinus rhythm with sinus arrhythmia with 1st degree A-V block Left anterior fascicular block Abnormal ECG Confirmed by MAGO TAPIA, STEFAN ([id number]), video effects editor GIAN LIGHT ([id number]) on 08/12/2023 5:55:59 AM Referred By: Ricardo Smiley Confirmed By:STEFAN ORR MD 08/12/23 0556 Date Stefan Orr MD CC: Dr. Sunny Smiley MD; Dr. Shoshana Ulrich MD Signed Normal [facility] Basic Metabolic Profile (BMP )on 08-11-2023 BUN/CRE 22.6 RATIO High 10-20 [facility] Comment on above: Performed By: #### L 100.0100, L503.6550, L500.4050, L503.6030 #### [facility] [address] [place], [address] CA,Total 8.7 mg/dL Normal 8.5-10.1 [facility] Comment on above: Performed By: #### L 100.0100, L503.6550, L500.4050, L503.6030 #### [facility] [address] [place], [address] Chloride [Moles/Vol] 108 mmol/L High 98-107 [facility] Comment on above: Performed By: #### L 100.0100, L503.6550, L500.4050, L503.6030 #### [facility] [address] [place], [address] CO2 [Moles/Vol] 29.0 mmol/L Normal 21.0-32.0 [facility] Comment on above: Performed By: #### L 100.0100, L503.6550, L500.4050, L503.6030 #### [facility] [address] [place], [address] Creatinine [Mass/Vol] 1.15 mg/dL Normal 0.70-1.30 [facility] Comment on above: Result Comment: The validity of the calculated GFR GFRAA in patients over 70 years has not been determined. Clinical correlation is essential. Performed By: #### L 100.0100, L503.6550, L500.4050, L503.6030 #### [facility] [address] [place], [address] EST GFR - AA 78 mL/min Normal >60 [facility] Comment on above: Result Comment: Afri can Micronesian GFR Calc Performed By: #### L 100.0100, L503.6550, L500.4050, L503.6030 #### [facility] [address] [place], [address] GAP 3 Low 5-15 [facility] Comment on above: Performed By: #### L 100.0100, L503.6550, L500.4050, L503.6030 #### [facility] [address] [place], [address] GFR/1.73 sq M.predicted among non-blacks MDRD (S/P/Bld) [Vol rate/Area] 64 mL/min/{1.73_m2} Normal >60 [facility] Comment on above: Result Comment: Non- GFR Calc Performed By: #### L 100.0100, L503.6550, L500.4050, L503.6030 #### [facility] [address] [place], [address] Glucose [Mass/Vol] 101 mg/dL Normal 74-106 [facility] Comment on above: Result Comment: Fast ing Glucose result from 100 to 125 mg/dL suggests IMPAIRED HOMEOSTASIS per A.D.A. criteria. Performed By: #### L 100.0100, L503.6550, L500.4050, L503.6030 #### [facility] [address] [place], [address] Potassium [Moles/Vol] 4.2 mmol/L Normal 3.5-5.1 [facility] Comment on above: Performed By: #### L 100.0100, L503.6550, L500.4050, L503.6030 #### [facility] [address] [place], [address] Sodium [Moles/Vol] 140 mmol/L Normal 136-145 [facility] Comment on above: Performed By: #### L 100.0100, L503.6550, L500.4050, L503.6030 #### [facility] [address] [place], [address] Urea nitrogen [Mass/Vol] 26 mg/dL High 7-18 [facility] Comment on above: Performed By: #### L 100.0100, L503.6550, L500.4050, L503.6030 #### [facility] [address] [place], [address] Basophil percentageOrdered B y: Sunny Smiley on 08-11-2023 Chloride [Moles/Vol] 108 mmol/L 98-107 [facility] Glucose [Mass/Vol] 101 mg/dL 74-106 [facility] Comment on above: Fasting Glucose resu lt from 100 to 125 mg/dL suggests IMPAIRED HOMEOSTASIS per A.D.A. criteria. Hemoglobin (Bld) [Mass/Vol] 11.4 g/dL 13.0-16.5 [facility] Potassium [Moles/Vol] 4.2 mmol/L 3.5-5.1 [facility] Sodium [Moles/Vol] 140 mmol/L 136-145 [facility] WBC (Bld) [#/Vol] 5.8 10*3/uL 4.4-11.0 [facility] CBC-Complete Blood Cnt No Di ffon 08-11-2023 Erythrocyte distribution width (RBC) [Ratio] 14.5 % Normal 11.6-14.6 [facility] Comment on above: Performed By: #### L 100.0100, L503.6550, L500.4050, L503.6030 #### [facility] [address] [place], [address] Hematocrit (Bld) [Volume fraction] 35.9 % Low 40-54 [facility] Comment on above: Performed By: #### L 100.0100, L503.6550, L500.4050, L503.6030 #### [facility] [address] [place], [address] Hemoglobin (Bld) [Mass/Vol] 11.4 g/dL Low 13.0-16.5 [facility] Comment on above: Performed By: #### L 100.0100, L503.6550, L500.4050, L503.6030 #### [facility] [address] [place], [address] MCH (RBC) [Entitic mass] 32.6 pg High 27.0-32.0 [facility] Comment on above: Performed By: #### L 100.0100, L503.6550, L500.4050, L503.6030 #### [facility] [address] [place], [id number] MCHC (RBC) [Mass/Vol] 31.8 g/dL Low 32-36 [facility] Comment on above: Performed By: #### L 100.0100, L503.6550, L500.4050, L503.6030 #### [facility] [address] [place], [address] MCV (RBC) [Entitic vol] 102.6 fL High 80-94 [facility] Comment on above: Performed By: #### L 100.0100, L503.6550, L500.4050, L503.6030 #### [facility] [address] [place], [address] Platelet mean volume (Bld) [Entitic vol] 10.0 fL Normal 6.2-12.0 [facility] Comment on above: Performed By: #### L 100.0100, L503.6550, L500.4050, L503.6030 #### [facility] [address] [place], [address] Platelets (Bld) [#/Vol] 230 10*3/uL Normal 150-450 [facility] Comment on above: Performed By: #### L 100.0100, L503.6550, L500.4050, L503.6030 #### [facility] [address] [place], [address] RBC (Bld) [#/Vol] 3.50 10*6/uL Low 4.6-6.2 [facility] Comment on above: Performed By: #### L 100.0100, L503.6550, L500.4050, L503.6030 #### [facility] [address] [place], [address] RDW SD 54.7 fl High 35.1-43.9 [facility] Comment on above: Performed By: #### L 100.0100, L503.6550, L500.4050, L503.6030 #### [facility] [address] [place], [place], [address] WBC (Bld) [#/Vol] 5.8 10*3/uL Normal 4.4-11.0 [facility] Comment on above: Performed By: #### L 100.0100, L503.6550, L500.4050, L503.6030 #### [facility] [address] [place], [place], [address] Determination of erythrocyte mean corpuscular volume (MCV)Ordered By: Sunny Smiley on 08-11-2023 MCV (RBC) [Entitic vol] 102.6 fL 80-94 [facility] Erythrocyte distribution wid th ratioOrdered By: Sunny Smiley on 08-11-2023 Erythrocyte distribution width (RBC) [Ratio] 14.5 % 11.6-14.6 [facility] Erythrocyte distribution wid th standard deviationOrdered By: Garber Sherice on 08-11-2023 Erythrocyte distribution width (RBC) [Entitic vol] 54.7 fL 35.1-43.9 [facility] Hematocrit Auto (Bld) [Volum e fraction]Ordered By: Sunny Smiley on 08-11-2023 Hematocrit (Bld) [Volume fraction] 35.9 % 40-54 [facility] - Chemistry and C hemistry - challengeOrdered By: Sunny Smiley on 08-11-2023 CO2 [Moles/Vol] 29.0 mmol/L 21.0-32.0 [facility] Urea nitrogen/Creatinine [Mass ratio] 22.6 mg/mg 10-20 [facility] - Hematology and Cell countsOrdered By: Sunny Smiley on 08-11-2023 MCH (RBC) [Entitic mass] 32.6 pg 27.0-32.0 [facility] MCHC (RBC) [Mass/Vol] 31.8 g/dL 32-36 [facility] Platelet mean volume (Bld) [Entitic vol] 10.0 fL 6.2-12.0 [facility] Platelets (Bld) [#/Vol] 230 10*3/uL 150-450 [facility] No Panel InformationOrdered By: Sunny Smiley on 08-11-2023 Estimated GFR (MDRD) Amer 78 mL/min >60 [facility] Comment on above: GFR Calc Estimated GFR (MDRD) Non-Af Amer 64 mL/min >60 [facility] Comment on above: Non- GFR Calc RBC Auto (Bld) [#/Vol]Ordere d By: Sunny Smiley on 08-11-2023 RBC (Bld) [#/Vol] 3.50 10*6/uL 4.6-6.2 [facility] Serum or plasma calcium marlin urement (mass/volume)Ordered By: Sunny Smiley on 08-11-2023 Calcium [Mass/Vol] 8.7 mg/dL 8.5-10.1 [facility] Serum or plasma creatinine m easurement (mass/volume)Ordered By: Sunny Smiley on 08-11-2023 Creatinine [Mass/Vol] 1.15 mg/dL 0.70-1.30 [facility] Comment on above: The validity of the calculated GFR & GFRAA in patients over 70 years has not been determined. Clinical correlation is essential. Serum or plasma urea nitroge n measurement (mass/volume)Ordered By: Sunny Smiley on 08-11-2023 Urea nitrogen [Mass/Vol] 26 mg/dL 7-18 [facility] Thin prep Papanicolaou smear with manual screeningOrdered By: Sunny Smiley on 08-11-2023 Thin prep Papanicolaou smear with manual screening 3 5-15 [facility] Absolute lymphocyte countOrd ered By: Shoshana Ulrich on 04-06-2023 Lymphocytes Auto (Unsp spec) [#/Vol] 0.67 10*3/uL 0.83-4.51 [facility] Basophil percentageOrdered B y: Shoshana Ulrich on 04-06-2023 Basophils/100 WBC (Bld) 0.5 % 0-1 [facility] Chloride [Moles/Vol] 102 mmol/L 98-107 [facility] Eosinophils/100 WBC (Bld) 0.5 % 0-5 [facility] Glucose [Mass/Vol] 104 mg/dL 74-106 [facility] Comment on above: Fasting Glucose resu lt from 100 to 125 mg/dL suggests IMPAIRED HOMEOSTASIS per A.D.A. criteria. Neutrophils (Bld) [#/Vol] 3.1 10*3/uL 2.0-7.7 [facility] Neutrophils/100 WBC (Bld) 73.0 % 47-70 [facility] Potassium [Moles/Vol] 4.1 mmol/L 3.5-5.1 [facility] Sodium [Moles/Vol] 137 mmol/L 136-145 [facility] WBC (Bld) [#/Vol] 4.3 10*3/uL 4.4-11.0 [facility] Blood erythrocytes count (nu mber/volume)Ordered By: Shoshana Ulrich on 04-06-2023 RBC (Bld) [#/Vol] 3.68 10*6/uL 4.6-6.2 [facility] Blood hemoglobin measurement (mass/volume)Ordered By: Shoshana Ulrich on 04-06-2023 Hemoglobin (Bld) [Mass/Vol] 12.5 g/dL 13.0-16.5 [facility] Blood lymphocytes/100 leukoc ytesOrdered By: Shoshana Ulrich on 04-06-2023 Lymphocytes/100 WBC (Bld) 15.7 % 19-41 [facility] Blood monocytes/100 leukocyt esOrdered By: Shoshana Ulrich on 04-06-2023 Monocytes/100 WBC (Bld) 9.1 % 0-10 [facility] Blood platelet mean volumeOr dered By: Shoshana Ulrich on 04-06-2023 Platelet mean volume (Bld) [Entitic vol] 11.4 fL 6.2-12.0 [facility] Determination of erythrocyte mean corpuscular volume (MCV)Ordered By: Shoshana Ulrich on 04-06-2023 MCV (RBC) [Entitic vol] 103.3 fL 80-94 [facility] Hematocrit Auto (Bld) [Volum e fraction]Ordered By: Shoshana Ulrich on 04-06-2023 Hematocrit (Bld) [Volume fraction] 38.0 % 40-54 [facility] - Chemistry and C hemistry - challengeOrdered By: Shoshana Ulrich on 04-06-2023 CO2 [Moles/Vol] 29.0 mmol/L 21.0-32.0 [facility] Urea nitrogen/Creatinine [Mass ratio] 26.5 mg/mg 10-20 [facility] - Hematology and Cell countsOrdered By: Shoshana Ulrich on 04-06-2023 Erythrocyte distribution width (RBC) [Entitic vol] 61.8 fL 35.1-43.9 [facility] Erythrocyte distribution width (RBC) [Ratio] 16.1 % 11.6-14.6 [facility] Immature granulocytes/100 WBC (Bld) 1.200 % 0.0-0.9 [facility] Comment on above: IG% - Immature Granu locytes (promyelocytes, myelocytes and metamyelocytes) > 1% indicates that a LEFT SHIFT is Present. MCH (RBC) [Entitic mass] 34.0 pg 27.0-32.0 [facility] Nucleated RBC/100 WBC (Bld) [Ratio] 0 % 0-5 [facility] MCHC Auto (RBC) [Mass/Vol]Or dered By: Shoshana Ulrich on 04-06-2023 MCHC (RBC) [Mass/Vol] 32.9 g/dL 32-36 [facility] No Panel InformationOrdered By: Shoshana Ulrich on 04-06-2023 Estimated GFR (MDRD) Amer 64 mL/min >60 [facility] Comment on above: GFR Calc Estimated GFR (MDRD) Non-Af Amer 53 mL/min >60 [facility] Comment on above: Non- GFR Calc Platelets bldOrdered By: Marlon Ulrich on 04-06-2023 Platelets (Bld) [#/Vol] 171 10*3/uL 150-450 [facility] Serum or plasma calcium marlin urement (mass/volume)Ordered By: Shoshana Ulrich on 11-22-2023 Calcium [Mass/Vol] 8.7 mg/dL 8.5-10.1 [facility] Serum or plasma creatinine m easurement (mass/volume)Ordered By: Shoshana Ulrich on 04-06-2023 Creatinine [Mass/Vol] 1.36 mg/dL 0.70-1.30 [facility] Comment on above: The validity of the calculated GFR & GFRAA in patients over 70 years has not been determined. Clinical correlation is essential. Serum or plasma urea nitroge n measurement (mass/volume)Ordered By: Shoshana Ulrich on 04-06-2023 Urea nitrogen [Mass/Vol] 36 mg/dL - [facility] Thin prep Papanicolaou smear with manual screeningOrdered By: Shoshana Ulrich on 04-06-2023 Thin prep Papanicolaou smear with manual screening 6 09-27 [facility] Hospital Culture, urineOrdered By: Nakita Foster on 12-10-2022 Bacteria identified Cx Nom (U) Culture exhibits no growth. [facility] Basophil percentageOrdered B y: Dr. Mendoza on 10-28-2022 Bilirubin [Mass/Vol] 0.60 mg/dL 0.20-1.00 [facility] Comment on above: For patients on eltr ombopag therapy, use of Dimension [place] TBIL is not recommended. Chloride [Moles/Vol] 111 mmol/L 98-107 [facility] Glucose [Mass/Vol] 116 mg/dL 74-106 [facility] Comment on above: Fasting Glucose resu lt from 100 to 125 mg/dL suggests IMPAIRED HOMEOSTASIS per A.D.A. criteria. Potassium [Moles/Vol] 4.4 mmol/L 3.5-5.1 [facility] Protein [Mass/Vol] 6.9 g/dL 6.4-8.2 [facility] Sodium [Moles/Vol] 142 mmol/L 136-145 [facility] WBC (Bld) [#/Vol] 7.4 10*3/uL 4.4-11.0 [facility] Blood erythrocytes count (nu mber/volume)Ordered By: Dr. Mendoza on 10-28-2022 RBC (Bld) [#/Vol] 3.93 10*6/uL 4.6-6.2 [facility] Blood hemoglobin measurement (mass/volume)Ordered By: Dr. Mendoza on 10-28-2022 Hemoglobin (Bld) [Mass/Vol] 12.5 g/dL 13.0-16.5 [facility] Blood platelet mean volumeOr dered By: Dr. Mendoza on 10-28-2022 Platelet mean volume (Bld) [Entitic vol] 10.5 fL 6.2-12.0 [facility] Determination of erythrocyte mean corpuscular volume (MCV)Ordered By: Dr. Mendoza on 10-28-2022 MCV (RBC) [Entitic vol] 99.0 fL 80-94 [facility] Direct bilirubinOrdered By: Dr. Mendoza on 10-28-2022 Bilirubin.direct [Mass/Vol] 0.14 mg/dL 0.00-0.30 [facility] Hematocrit Auto (Bld) [Volum e fraction]Ordered By: Dr. Mendoza on 10-28-2022 Hematocrit (Bld) [Volume fraction] 38.9 % 40-54 [facility] INR in Blood by Coagulation assayOrdered By: Dr. Mendoza on 10-28-2022 INR Coag (Bld) [Relative time] 1.0 {INR} [facility] - Chemistry and C hemistry - challengeOrdered By: Dr. Mendoza on 10-28-2022 ALP [Catalytic activity/Vol] 88 U/L 45-117 [facility] ALT [Catalytic activity/Vol] 25 U/L 16-61 [facility] CO2 [Moles/Vol] 25.0 mmol/L 21.0-32.0 [facility] Globulin (S) [Mass/Vol] 3.7 g/dL 2.2-4.2 [facility] Urea nitrogen/Creatinine [Mass ratio] 16.7 mg/mg 10-20 [facility] - CoagulationOrde red By: Dr. Mendoza on 10-28-2022 aPTT Coag (Bld) [Time] 27.5 s 24.1-36.2 [facility] PT Coag (PPP) [Time] 13.3 s 11.7-14.9 [facility] Laboratory - Hematology and Cell countsOrdered By: Dr. Mendoza on 10-28-2022 Erythrocyte distribution width (RBC) [Entitic vol] 55.0 fL 35.1-43.9 [facility] Erythrocyte distribution width (RBC) [Ratio] 15.0 % 11.6-14.6 [facility] MCH (RBC) [Entitic mass] 31.8 pg 27.0-32.0 [facility] MCHC Auto (RBC) [Mass/Vol]Or dered By: Dr. Mendoza on 10-28-2022 MCHC (RBC) [Mass/Vol] 32.1 g/dL 32-36 [facility] No Panel InformationOrdered By: Dr. Mendoza on 10-28-2022 Estimated GFR (MDRD) Amer 66 mL/min >60 [facility] Comment on above: GFR Calc Estimated GFR (MDRD) Non-Af Amer 55 mL/min >60 [facility] Comment on above: Non- GFR Calc Platelets bldOrdered By: Dr. Mendoza on 10-28-2022 Platelets (Bld) [#/Vol] 212 10*3/uL 150-450 [facility] Serum or plasma albumin marlin urement (mass/volume)Ordered By: Dr. Mendoza on 10-28-2022 Albumin [Mass/Vol] 3.2 g/dL 3.2-5.0 [facility] Serum or plasma calcium marlin urement (mass/volume)Ordered By: Dr. Mendoza on 10-28-2022 Calcium [Mass/Vol] 8.4 mg/dL 8.5-10.1 [facility] Serum or plasma creatinine m easurement (mass/volume)Ordered By: Dr. Mendoza on 10-28-2022 Creatinine [Mass/Vol] 1.32 mg/dL 0.70-1.30 [facility] Comment on above: The validity of the calculated GFR & GFRAA in patients over 70 years has not been determined. Clinical correlation is essential. Serum or plasma urea nitroge n measurement (mass/volume)Ordered By: Dr. Mendoza on 10-28-2022 Urea nitrogen [Mass/Vol] 22 mg/dL 7-18 [facility] Thin prep Papanicolaou smear with manual screeningOrdered By: Dr. Mendoza on 10-28-2022 Thin prep Papanicolaou smear with manual screening 21 U/L 15-37 [facility] Thin prep Papanicolaou smear with manual screening 6 5-15 [facility] Basophil percentageOrdered B y: Dr. Ruby on 10-07-2022 Chloride [Moles/Vol] 109 mmol/L 98-107 [facility] Glucose [Mass/Vol] 111 mg/dL 74-106 [facility] Comment on above: Fasting Glucose resu lt from 100 to 125 mg/dL suggests IMPAIRED HOMEOSTASIS per A.D.A. criteria. Potassium [Moles/Vol] 3.7 mmol/L 3.5-5.1 [facility] Sodium [Moles/Vol] 141 mmol/L 136-145 [facility] - Chemistry and C hemistry - challengeOrdered By: Dr. Ruby on 10-07-2022 CO2 [Moles/Vol] 30.0 mmol/L 21.0-32.0 [facility] Urea nitrogen/Creatinine [Mass ratio] 12.9 mg/mg 10-20 [facility] No Panel InformationOrdered By: Dr. Ruby on 10-07-2022 Estimated Creatinine Clearance Calc 42.14 ml/min [facility] Estimated GFR (MDRD) Amer 71 mL/min >60 [facility] Comment on above: GFR Calc Estimated GFR (MDRD) Non-Af Amer 59 mL/min >60 [facility] Comment on above: Non- GFR Calc Serum or plasma calcium marlin urement (mass/volume)Ordered By: Dr. Ruby on 10-07-2022 Calcium [Mass/Vol] 8.5 mg/dL 8.5-10.1 [facility] Serum or plasma creatinine m easurement (mass/volume)Ordered By: Dr. Ruby on 10-07-2022 Creatinine [Mass/Vol] 1.24 mg/dL 0.70-1.30 [facility] Comment on above: The validity of the calculated GFR & GFRAA in patients over 70 years has not been determined. Clinical correlation is essential. Serum or plasma urea nitroge n measurement (mass/volume)Ordered By: Dr. Ruby on 10-07-2022 Urea nitrogen [Mass/Vol] 16 mg/dL 7-18 [facility] Thin prep Papanicolaou smear with manual screeningOrdered By: Dr. Ruby on 10-07-2022 Thin prep Papanicolaou smear with manual screening 2 5-15 [facility] Basophil percentageOrdered B y: Dr. Foster on 07-12-2022 Chloride [Moles/Vol] 103 mmol/L 98-107 [facility] Glucose [Mass/Vol] 81 mg/dL 74-106 [facility] Potassium [Moles/Vol] 3.8 mmol/L 3.5-5.1 [facility] Sodium [Moles/Vol] 137 mmol/L 136-145 [facility] WBC (Bld) [#/Vol] 6.3 10*3/uL 4.4-11.0 [facility] Blood erythrocytes count (nu mber/volume)Ordered By: Dr. Foster on 07-12-2022 RBC (Bld) [#/Vol] 3.72 10*6/uL 4.6-6.2 [facility] Blood hemoglobin measurement (mass/volume)Ordered By: Dr. Foster on 07-12-2022 Hemoglobin (Bld) [Mass/Vol] 12.6 g/dL 13.0-16.5 [facility] Blood platelet mean volumeOr dered By: Dr. Foster on 07-12-2022 Platelet mean volume (Bld) [Entitic vol] 10.6 fL 6.2-12.0 [facility] Determination of erythrocyte mean corpuscular volume (MCV)Ordered By: Dr. Foster on 07-12-2022 MCV (RBC) [Entitic vol] 101.6 fL 80-94 [facility] Hematocrit Auto (Bld) [Volum e fraction]Ordered By: Dr. Foster on 07-12-2022 Hematocrit (Bld) [Volume fraction] 37.8 % 40-54 [facility] - Chemistry and C hemistry - challengeOrdered By: Dr. Foster on 07-12-2022 CO2 [Moles/Vol] 25.0 mmol/L 21.0-32.0 [facility] Urea nitrogen/Creatinine [Mass ratio] 17.5 mg/mg 10-20 [facility] - Hematology and Cell countsOrdered By: Dr. Foster on 07-12-2022 Erythrocyte distribution width (RBC) [Entitic vol] 59.7 fL 35.1-43.9 [facility] Erythrocyte distribution width (RBC) [Ratio] 15.8 % 11.6-14.6 [facility] MCH (RBC) [Entitic mass] 33.9 pg 27.0-32.0 [facility] MCHC Auto (RBC) [Mass/Vol]Or dered By: Dr. Foster on 07-12-2022 MCHC (RBC) [Mass/Vol] 33.3 g/dL 32-36 [facility] No Panel InformationOrdered By: Dr. Foster on 07-12-2022 Estimated GFR (MDRD) Amer 70 mL/min >60 [facility] Comment on above: GFR Calc Estimated GFR (MDRD) Non-Af Amer 58 mL/min >60 [facility] Comment on above: Non- GFR Calc Platelets bldOrdered By: Dr. Foster on 07-12-2022 Platelets (Bld) [#/Vol] 156 10*3/uL 150-450 [facility] Serum or plasma calcium marlin urement (mass/volume)Ordered By: Dr. Foster on 07-12-2022 Calcium [Mass/Vol] 8.5 mg/dL 8.5-10.1 [facility] Serum or plasma creatinine m easurement (mass/volume)Ordered By: Dr. Foster on 07-12-2022 Creatinine [Mass/Vol] 1.26 mg/dL 0.70-1.30 [facility] Comment on above: The validity of the calculated GFR & GFRAA in patients over 70 years has not been determined. Clinical correlation is essential. Serum or plasma urea nitroge n measurement (mass/volume)Ordered By: Dr. Foster on 07-12-2022 Urea nitrogen [Mass/Vol] 22 mg/dL 7-18 [facility] Thin prep Papanicolaou smear with manual screeningOrdered By: Dr. Fsoter on 07-12-2022 Thin prep Papanicolaou smear with manual screening 9 5-15 [facility] Basophil percentageOrdered B y: ED PROVIDER on 04-09-2022 Basophil percentage 0-5 SEEN /hpf 0-5 [facility] Bilirubin Test strip Ql (U)O rdered By: ED PROVIDER on 04-09-2022 Bilirubin Ql (U) Negative Negative [facility] Ketones Test strip Ql (U)Ord ered By: ED PROVIDER on 04-09-2022 Ketones Ql (U) Negative Negative [facility] Mucus LM Ql (Urine sed)Order ed By: ED PROVIDER on 04-09-2022 Mucus Ql (Urine sed) 0 SEEN /hpf [facility] Nitrite Test strip Ql (U)Ord ered By: ED PROVIDER on 04-09-2022 Nitrite Ql (U) Negative Negative [facility] Protein Test strip Ql (U)Ord ered By: ED PROVIDER on 04-09-2022 Protein Ql (U) 15 mg/dl Negative [facility] Squamous epithelial cells de tection in urine sediment by light microscopyOrdered By: ED PROVIDER on 04-09-2022 Epithelial cells.squamous LM Ql (Urine sed) 0 SEEN /hpf 0-5 [facility] Urine blood detectionOrdered By: ED PROVIDER on 04-09-2022 RBC Ql (U) Negative Negative [facility] RBC Ql (U) 0-5 SEEN /hpf 0-5 [facility] Urine clarityOrdered By: ED PROVIDER on 04-09-2022 Clarity (U) Clear Clear [facility] Urine color determinationOrd ered By: ED PROVIDER on 04-09-2022 Color (U) Yellow Yellow [facility] Urine glucose detectionOrder ed By: ED PROVIDER on 04-09-2022 Glucose Ql (U) Normal mg/dl Normal [facility] Urine leukocyte esterase det ection by dipstickOrdered By: ED PROVIDER on 04-09-2022 Leukocyte esterase Test strip Ql (U) 25 /ul Negative [facility] Urine pHOrdered By: ED PROVI KELECHI on 04-09-2022 pH (U) 7.0 [pH] 5.0 - 8.0 [facility] Urine sediment bacteria coun t by microscopy (number/high power field)Ordered By: ED PROVIDER on 04-09-2022 Bacteria LM.HPF (Urine sed) [#/Area] RARE /hpf None Seen [facility] Urine specific gravity measu rementOrdered By: ED PROVIDER on 04-09-2022 Specific gravity (U) [Rel density] 1.010 1.002-1.03 0 [facility] Urobilinogen Auto test strip Ql (U)Ordered By: ED PROVIDER on 04-09-2022 Urobilinogen Ql (U) Normal mg/dl Normal [facility] Final Surgical Pathology Rep leslie 09-14-2021 Final Surgical Pathology Report . Pathology Reports Accession: Collected Date/Time: Received Date/Time: Pathologist: [id number] 09/11/2021 10:34 EDT 09/11/2021 12:06 EDT FERNANDO ZHAO MD Final Surgical Pathology Report DIAGNOSIS: RIGHT PAROTID MASS, NEEDLE CORE BIOPSY - WARTHIN'S TUMOR. CLINICAL INFORMATION: RIGHT PAROTID MASS PROCEDURE: U/S BIOPSY RIGHT PAROTID SPECIMEN: A RIGHT PAROTID MASS BIOPSY GROSS DESCRIPTION: A. Received in formalin, labeled with the patients name, Case #[id number], and right parotid mass BX are multiple lora-pink cylindrical soft tissue cores and core fragments ranging from less than 0.1 to 0.6 cm. TS -2 Dictated by EDGAR ALMAZAN MICROSCOPIC DESCRIPTION: Slides reviewed. Electronically Signed by Pathology Report verified by [facility] Electronically signed by FERNANDO ZHAO Sign out Date: 09/14/2021 13:50 Performing Lab: [facility], [address] [place] [address] (ID) Absolute lymphocyte counton 09-08-2021 Lymphocytes Auto (Unsp spec) [#/Vol] 1.03 10*3/uL 0.83-4.51 [facility] Work Phone: Basophil percentageon 2021 Basophil percentage 0 SEEN /hpf 0-5 [facility] Work Phone: Basophils/100 WBC (Bld) 0.6 % 0-1 [facility] Work Phone: Bilirubin [Mass/Vol] 1.20 mg/dL 0.20-1.00 [facility] Work Phone: Comment on above: For patients on eltr ombopag therapy, use of Dimension [place] TBIL is not recommended. Chloride [Moles/Vol] 103 mmol/L 98-107 [facility] Work Phone: Eosinophils/100 WBC (Bld) 3.1 % 0-5 [facility] Work Phone: Glucose [Mass/Vol] 104 mg/dL 74-106 [facility] Work Phone: [phone] Comment on above: Fasting Glucose resu lt from 100 to 125 mg/dL suggests IMPAIRED HOMEOSTASIS per A.D.A. criteria. Neutrophils (Bld) [#/Vol] 3.4 10*3/uL 2.0-7.7 [facility] Work Phone: [phone] Neutrophils/100 WBC (Bld) 66.9 % 47-70 [facility] Work Phone: Potassium [Moles/Vol] 4.2 mmol/L 3.5-5.1 [facility] Work Phone: Protein [Mass/Vol] 7.7 g/dL 6.4-8.2 [facility] Work Phone: Sodium [Moles/Vol] 136 mmol/L 136-145 [facility] Work Phone: WBC (Bld) [#/Vol] 5.1 10*3/uL 4.4-11.0 [facility] Work Phone: Bilirubin Test strip Ql (U)o n 09-08-2021 Bilirubin Ql (U) Negative Negative [facility] Work Phone: Blood erythrocytes count (nu mber/volume)on 09-08-2021 RBC (Bld) [#/Vol] 4.65 10*6/uL 4.6-6.2 [facility] Work Phone: Blood hemoglobin measurement (mass/volume)on 09-08-2021 Hemoglobin (Bld) [Mass/Vol] 14.4 g/dL 13.0-16.5 [facility] Work Phone: Blood lymphocytes/100 leukoc yteson 09-08-2021 Lymphocytes/100 WBC (Bld) 20.3 % 19-41 [facility] Work Phone: Blood monocytes/100 leukocyt eson 09-08-2021 Monocytes/100 WBC (Bld) 8.7 % 0-10 [facility] Work Phone: Blood platelet mean volumeon 09-08-2021 Platelet mean volume (Bld) [Entitic vol] 10.1 fL 6.2-12.0 [facility] Work Phone: Determination of erythrocyte mean corpuscular volume (MCV)on 09-08-2021 MCV (RBC) [Entitic vol] 94.6 fL 80-94 [facility] Work Phone: Hematocrit Auto (Bld) [Volum e fraction]on 09-08-2021 Hematocrit (Bld) [Volume fraction] 44.0 % 40-54 [facility] Work Phone: Ketones Test strip Ql (U)on 09-08-2021 Ketones Ql (U) 5 mg/dl Negative [facility] Work Phone: Laboratory - Chemistry and C hemistry - challengeon 09-08-2021 ALP [Catalytic activity/Vol] 96 U/L 45-117 [facility] Work Phone: ALT [Catalytic activity/Vol] 19 U/L 16-61 [facility] Work Phone: CO2 [Moles/Vol] 29.0 mmol/L 21.0-32.0 [facility] Work Phone: Globulin (S) [Mass/Vol] 3.9 g/dL 2.2-4.2 [facility] Work Phone: Lipase [Catalytic activity/Vol] 78 U/L 73-393 [facility] Work Phone: [phone] Urea nitrogen/Creatinine [Mass ratio] 14.1 mg/mg 10-20 [facility] Work Phone: Laboratory - Hematology and Cell countson 09-08-2021 Erythrocyte distribution width (RBC) [Entitic vol] 58.5 fL 35.1-43.9 [facility] Work Phone: Erythrocyte distribution width (RBC) [Ratio] 16.9 % 11.6-14.6 [facility] Work Phone: Immature granulocytes/100 WBC (Bld) 0.400 % 0.0-0.9 [facility] Work Phone: Comment on above: IG% - Immature Granu locytes (promyelocytes, myelocytes and metamyelocytes) > 1% indicates that a LEFT SHIFT is Present. MCH (RBC) [Entitic mass] 31.0 pg 27.0-32.0 [facility] Work Phone: Nucleated RBC/100 WBC (Bld) [Ratio] 0 % 0-5 [facility] Work Phone: MCHC Auto (RBC) [Mass/Vol]on 09-08-2021 MCHC (RBC) [Mass/Vol] 32.7 g/dL 32-36 [facility] Work Phone: Mucus LM Ql (Urine sed)on Mucus Ql (Urine sed) 0 SEEN /hpf [facility] Work Phone: Nitrite Test strip Ql (U)on 09-08-2021 Nitrite Ql (U) Negative Negative [facility] Work Phone: No Panel Informationon 09-08 Estimated Creatinine Clearance Calc 37.46 ml/min [facility] Work Phone: Estimated GFR (MDRD) Amer 61 mL/min >60 [facility] Work Phone: Comment on above: GFR Calc Estimated GFR (MDRD) Non-Af Amer 51 mL/min >60 [facility] Work Phone: Comment on above: Non- GFR Calc Platelets bldon 09-08-2021 Platelets (Bld) [#/Vol] 208 10*3/uL 150-450 [facility] Work Phone: Protein Test strip Ql (U)on 09-08-2021 Protein Ql (U) Negative Negative [facility] Work Phone: Serum or plasma albumin marlin urement (mass/volume)on 09-08-2021 Albumin [Mass/Vol] 3.8 g/dL 3.2-5.0 [facility] Work Phone: Serum or plasma albumin/glob ulin mass ratioon 09-08-2021 Albumin/Globulin [Mass ratio] 1.0 {ratio} 0.9-2.4 [facility] Work Phone: Serum or plasma calcium marlin urement (mass/volume)on 09-08-2021 Calcium [Mass/Vol] 9.5 mg/dL 8.5-10.1 [facility] Work Phone: Serum or plasma creatinine m easurement (mass/volume)on 09-08-2021 Creatinine [Mass/Vol] 1.42 mg/dL 0.70-1.30 [facility] Work Phone: Comment on above: The validity of the calculated GFR & GFRAA in patients over 70 years has not been determined. Clinical correlation is essential. Serum or plasma urea nitroge n measurement (mass/volume)on 09-08-2021 Urea nitrogen [Mass/Vol] 20 mg/dL 7-18 [facility] Work Phone: Squamous epithelial cells de tection in urine sediment by light microscopyon 09-08-2021 Epithelial cells.squamous LM Ql (Urine sed) 0 SEEN /hpf 0-5 [facility] Work Phone: Thin prep Papanicolaou smear with manual screeningon 09-08-2021 Thin prep Papanicolaou smear with manual screening 16 U/L 15-37 [facility] Work Phone: Thin prep Papanicolaou smear with manual screening 4 5-15 [facility] Work Phone: Urine blood detectionon 08-15 RBC Ql (U) Negative Negative [facility] Work Phone: RBC Ql (U) 0 SEEN /hpf 0-5 [facility] Work Phone: Urine clarityon 09-08-2021 Clarity (U) Clear Clear [facility] Work Phone: Urine color determinationon 09-08-2021 Color (U) Yellow Yellow [facility] Work Phone: Urine glucose detectionon Glucose Ql (U) Normal mg/dl Normal [facility] Work Phone: Urine leukocyte esterase det ection by dipstickon 09-08-2021 Leukocyte esterase Test strip Ql (U) Negative Negative [facility] Work Phone: Urine pHon 09-08-2021 pH (U) 7.0 [pH] 5.0 - 8.0 [facility] Work Phone: Urine sediment bacteria coun t by microscopy (number/high power field)on 09-08-2021 Bacteria LM.HPF (Urine sed) [#/Area] 0 /[HPF] None Seen [facility] Work Phone: Urine specific gravity measu rementon 09-08-2021 Specific gravity (U) [Rel density] 1.005 1.002-1.03 0 [facility] Work Phone: Urobilinogen Auto test strip Ql (U)on 09-08-2021 Urobilinogen Ql (U) Normal mg/dl Normal [facility] Work Phone: Basophil percentageon 2021 Creatinine [Mass/Vol] 1.2 mg/dL 0.70-1.30 [facility] Work Phone: Laboratory - Chemistry and C hemistry - challengeon 07-22-2021 GFR/1.73 sq M.predicted among non-blacks MDRD (S/P/Bld) [Vol rate/Area] 60.0000 mL/min/{1.73_m2} >60 [facility] Work Phone: Office Visit: pulmonary nodu le and COPDon 02-24-2017 Documentation of current medications (procedure) Done Invalid Interpretation Code [facility] [place] [employer] Phone: Fall risk assessment No Invalid Interpretation Code [facility] [place] [employer] Phone: Protein mass conc Done Invalid Interpretation Code [facility] [place] Work Phone: Tobacco smoking status NHIS Current every day smoker Invalid Interpretation Code [facility] Work Phone: Tobacco use [facility] Current every day smoker Invali d Interpretation Code [facility] Work Phone: Lab Report: CREATININE YAIMA [place] 02-14-2017 EGFR WB 47.0000 mL/min Low >60 [facility] Work Phone: Office Visit: CT scanon Documentation of current medications (procedure) Done Invalid Interpretation Code [facility] Work Phone: Fall risk assessment No Invalid Interpretation Code [facility] Work Phone: Protein mass conc Done [facility] Work Phone: Tobacco smoking status NHIS Current every day smoker [facility] Work Phone: Tobacco use [facility] Current every day smoker Invali d Interpretation Code [facility] Work Phone: Vital Signs Date Time Vital Sign Value Performing Clinician Faci lity 07-13-2024 12:57-0500 Body height 172.[address] Shoshana Ulrich MD Work Phone: [facility] 07-13-2024 12:57-0500 Body mass index (BMI) [Ratio] 23.2 kg/m2 Dr. Shoshana Ulrich MD Work Phone: [facility] 07-13-2024 12:57-0500 Body temperature 97.8 [degF] Dr. Shoshana Ulrich MD Work Phone: [facility] 07-13-2024 12:57-0500 Body weight 69.[address] Shoshana Ulrich MD Work Phone: [facility] 07-13-2024 12:57-0500 Diastolic blood pressure 74 mm[Hg] Dr. Shoshana Ulrich MD Work Phone: [facility] 07-13-2024 12:57-0500 Heart rate 68 /min Dr. Shoshana Ulrich MD Work Phone: [facility] 07-13-2024 12:57-0500 Respiratory rate 16 /min Dr. Shoshana Ulrich MD Work Phone: [facility] 07-13-2024 12:57-0500 SaO2% (BldA) [Mass fraction] 96 % Dr. Shoshana Ulrich MD Work Phone: [facility] 07-13-2024 12:57-0500 Systolic blood pressure 130 mm[Hg] Dr. Shoshana Ulrich MD Work Phone: [phone] [place] [address] 06-26-2024 16:19-0500 Body temperature 97.8 [degF] Dr. Shoshana Ulrich MD Work Phone: [phone] [place] [address] 06-26-2024 16:19-0500 Body weight 69.[address] Shoshana Ulrich MD Work Phone: [facility] 06-26-2024 16:19-0500 Diastolic blood pressure 71 mm[Hg] Dr. Shoshana Ulrich MD Work Phone: [facility] 06-26-2024 16:19-0500 Heart rate 76 /min Dr. Shoshana Ulrich MD Work Phone: [facility] 06-26-2024 16:19-0500 Respiratory rate 16 /min Dr. Shoshana Ulrich MD Work Phone: [facility] 06-26-2024 16:19-0500 SaO2% (BldA) [Mass fraction] 94 % Dr. Shoshana Ulrich MD Work Phone: [facility] 06-26-2024 16:19-0500 Systolic blood pressure 144 mm[Hg] Dr. Shoshana Ulrich MD Work Phone: [facility] 06-20-2024 19:30-0500 Body temperature 98.1 [degF] Dr. Shoshana Ulrich MD Work Phone: [facility] 06-20-2024 19:30-0500 Diastolic blood pressure 78 mm[Hg] Dr. Shoshana Ulrich MD Work Phone: [facility] 06-20-2024 19:30-0500 Heart rate 82 /min Dr. Shoshana Ulrich MD Work Phone: [facility] 06-20-2024 19:30-0500 Respiratory rate 16 /min Dr. Shoshana Urlich MD Work Phone: [phone] [place] [address] 06-20-2024 19:30-0500 SaO2% (BldA) [Mass fraction] 98 % Dr. Shoshana Ulrich MD Work Phone: [phone] [place] [address] 06-20-2024 19:30-0500 Systolic blood pressure 140 mm[Hg] Dr. Shoshana Ulrich MD Work Phone: [facility] 06-20-2024 16:05-0500 Body mass index (BMI) [Ratio] 23.2 kg/m2 Dr. Shoshana Ulrich MD Work Phone: [facility] 06-20-2024 16:05-0500 Body weight 69.[address] Shoshana Ulrich MD Work Phone: [facility] 05-26-2024 13:22-0500 Body temperature 98 [degF] Dr. Shoshana Ulrich MD Work Phone: [facility] 05-26-2024 13:22-0500 Diastolic blood pressure 80 mm[Hg] Dr. Shoshana Ulrich MD Work Phone: [facility] 05-26-2024 13:22-0500 Heart rate 85 /min Dr. Shoshana Ulrich MD Work Phone: [facility] 05-26-2024 13:22-0500 Respiratory rate 18 /min Dr. Shoshana Ulrich MD Work Phone: [facility] 05-26-2024 13:22-0500 SaO2% (BldA) [Mass fraction] 99 % Dr. Shoshana Ulrich MD Work Phone: [facility] 05-26-2024 13:22-0500 Systolic blood pressure 140 mm[Hg] Dr. Shoshana Ulrich MD Work Phone: [facility] 05-26-2024 11:52-0500 Body mass index (BMI) [Ratio] 23.1 kg/m2 Dr. Shoshana Ulrich MD Work Phone: [phone] [place] [address] 05-26-2024 11:52-0500 Body weight 68.[address] Shoshana Ulrich MD Work Phone: [facility] 09-21-2023 14:38-0400 Diastolic blood pressure 64 mm[Hg] Dr. Shoshana Ulrich Work Phone: [facility] 09-21-2023 14:38-0400 Heart rate 84 /min Dr. Shoshana Ulrich Work Phone: [facility] 09-21-2023 14:38-0400 Respiratory rate 18 /min Dr. Shoshana Ulrich Work Phone: [facility] 09-21-2023 14:38-0400 SaO2% (BldA) [Mass fraction] 95 % Dr. Shoshana Ulrich Work Phone: [facility] 09-21-2023 14:38-0400 Systolic blood pressure 113 mm[Hg] Dr. Shoshana Ulrich Work Phone: [facility] 09-21-2023 08:42-0400 Body temperature 98.3 [degF] Dr. Shoshana Ulrich Work Phone: [facility] 09-21-2023 06:00-0400 Body mass index (BMI) [Ratio] 22.7 kg/m2 Dr. Shoshana Ulrich Work Phone: [facility] 09-21-2023 06:00-0400 Body weight 68.[address] Shoshana Ulrich Work Phone: [facility] 09-20-2023 13:02-0400 Body height 172.[address] Shoshana Ulrich Work Phone: [facility] 09-19-2023 13:05-0400 Body temperature 98.2 [degF] Dr. Shoshana Ulrich Work Phone: [facility] 09-19-2023 13:05-0400 Diastolic blood pressure 84 mm[Hg] Dr. Shoshana Ulrich Work Phone: [facility] 09-19-2023 13:05-0400 Heart rate 76 /min Dr. Shoshana Ulrich Work Phone: [facility] 09-19-2023 13:05-0400 Respiratory rate 15 /min Dr. Shoshana Ulrich Work Phone: [facility] 09-19-2023 13:05-0400 SaO2% (BldA) [Mass fraction] 98 % Dr. Shoshana Ulrich Work Phone: [facility] 09-19-2023 13:05-0400 Systolic blood pressure 132 mm[Hg] Dr. Shoshana Ulrich Work Phone: [facility] 09-19-2023 08:25-0400 Body height 172.[address] Shoshana Ulrich Work Phone: [facility] 09-19-2023 08:25-0400 Body mass index (BMI) [Ratio] 22 kg/m2 Dr. Shoshana Ulrich Work Phone: [facility] 09-19-2023 08:25-0400 Body weight 65.[address] Shoshana Ulrich Work Phone: [facility] 07-21-2023 12:36-0500 Diastolic blood pressure 72 mm[Hg] [facility] 07-21-2023 12:36-0500 Heart rate 75 /min [facility] 07-21-2023 12:36-0500 Respiratory rate 18 /min [facility] 07-21-2023 12:36-0500 SaO2% (BldA) [Mass fraction] 98 % [facility] 07-21-2023 12:36-0500 Systolic blood pressure 127 mm[Hg] [facility] 07-21-2023 08:18-0500 Body height 172.72 cm [facility] 07-21-2023 08:18-0500 Body mass index (BMI) [Ratio] 23.8 kg/m2 [facility] 07-21-2023 08:18-0500 Body temperature 98.3 [degF] [facility] 07-21-2023 08:18-0500 Body weight 70.9 kg [facility] 11-04-2022 13:31-0400 Body temperature 97.7 [degF] Dr. Shoshana Ulrich Work Phone: [facility] 11-04-2022 13:31-0400 Diastolic blood pressure 75 mm[Hg] Dr. Shoshana Ulrich Work Phone: [facility] 11-04-2022 13:31-0400 Heart rate 65 /min Dr. Shoshana Ulrich Work Phone: [facility] 11-04-2022 13:31-0400 Respiratory rate 18 /min Dr. Shoshana Ulrich Work Phone: [facility] 11-04-2022 13:31-0400 SaO2% (BldA) [Mass fraction] 94 % Dr. Shoshana Ulrich Work Phone: [facility] 11-04-2022 13:31-0400 Systolic blood pressure 139 mm[Hg] Dr. Shoshana Ulrich Work Phone: [facility] 11-04-2022 06:53-0400 Inhaled oxygen flow rate 2 L/min Dr. Shoshana Ulrich Work Phone: [facility] 11-03-2022 09:18-0400 Body height 172.[address] Shoshana Ulrich Work Phone: [facility] 11-03-2022 09:18-0400 Body mass index (BMI) [Ratio] 23.1 kg/m2 Dr. Shoshana Ulrich Work Phone: [facility] 11-03-2022 09:18-0400 Body weight 68.[address] Shoshana Ulrich Work Phone: [facility] 10-07-2022 08:03-0400 Body height 172.[address] Shoshana Ulrich Work Phone: [facility] 10-07-2022 08:03-0400 Body mass index (BMI) [Ratio] 25 kg/m2 Dr. Shoshana Ulrich Work Phone: [facility] 10-07-2022 08:03-0400 Body temperature 97.9 [degF] Dr. Shoshana Ulrich Work Phone: [facility] 10-07-2022 08:03-0400 Body weight 74.[address] Shoshana Ulrich Work Phone: [facility] 10-07-2022 08:03-0400 Diastolic blood pressure 96 mm[Hg] Dr. Shoshana Ulrich Work Phone: [facility] 10-07-2022 08:03-0400 Heart rate 80 /min Dr. Shoshana Ulrich Work Phone: [facility] 10-07-2022 08:03-0400 Respiratory rate 14 /min Dr. Shoshana Ulrich Work Phone: [facility] 10-07-2022 08:03-0400 SaO2% (BldA) [Mass fraction] 94 % Dr. Shoshana Ulrich Work Phone: [facility] 10-07-2022 08:03-0400 Systolic blood pressure 164 mm[Hg] Dr. Shoshana Ulrich Work Phone: [facility] 07-02-2022 08:10-0500 Body mass index (BMI) [Ratio] 24.7 kg/m2 Dr. Shoshana Ulrich Work Phone: [facility] 07-02-2022 08:10-0500 Body temperature 98.4 [degF] Dr. Shoshana Ulrich Work Phone: [facility] 07-02-2022 08:10-0500 Body weight 73.[address] Shoshana Ulrich Work Phone: [facility] 07-02-2022 08:10-0500 Diastolic blood pressure 88 mm[Hg] Dr. Shoshana Ulrich Work Phone: [facility] 07-02-2022 08:10-0500 Heart rate 99 /min Dr. Shoshana Ulrich Work Phone: [facility] 07-02-2022 08:10-0500 Respiratory rate 16 /min Dr. Shoshana Ulrich Work Phone: [facility] 07-02-2022 08:10-0500 SaO2% (BldA) [Mass fraction] 92 % Dr. Shoshana Ulrich Work Phone: [facility] 07-02-2022 08:10-0500 Systolic blood pressure 152 mm[Hg] Dr. Shoshana Ulrich Work Phone: [facility] 04-09-2022 12:06-0500 Body height 172.72 cm [facility] 04-09-2022 12:06-0500 Body mass index (BMI) [Ratio] 25 kg/m2 [facility] 04-09-2022 12:06-0500 Body temperature 98.4 [degF] [facility] 04-09-2022 12:06-0500 Body weight 74.84 kg [facility] 04-09-2022 12:06-0500 Diastolic blood pressure 79 mm[Hg] [facility] 04-09-2022 12:06-0500 Heart rate 89 /min [facility] 04-09-2022 12:06-0500 Respiratory rate 18 /min [facility] 04-09-2022 12:06-0500 SaO2% (BldA) [Mass fraction] 99 % [facility] 04-09-2022 12:06-0500 Systolic blood pressure 108 mm[Hg] [facility] 04-05-2022 14:41-0500 Body temperature 97.8 [degF] [facility] 04-05-2022 14:41-0500 Diastolic blood pressure 74 mm[Hg] [facility] 04-05-2022 14:41-0500 Heart rate 82 /min [facility] 04-05-2022 14:41-0500 Respiratory rate 15 /min [facility] 04-05-2022 14:41-0500 SaO2% (BldA) [Mass fraction] 95 % [facility] 04-05-2022 14:41-0500 Systolic blood pressure 121 mm[Hg] [facility] 04-05-2022 09:02-0500 Body mass index (BMI) [Ratio] 25 kg/m2 [facility] 04-05-2022 09:02-0500 Body weight 74.6 kg [facility] 09-08-2021 13:35-0400 Diastolic blood pressure 83 mm[Hg] Dr. Shoshana Ulrich Work Phone: [facility] Work Phone: 09-08-2021 13:35-0400 Heart rate 85 /min Dr. Shoshana Ulrich Work Phone: [facility] Work Phone: 09-08-2021 13:35-0400 Respiratory rate 15 /min Dr. Shoshana Ulrich Work Phone: [facility] Work Phone: 09-08-2021 13:35-0400 SaO2% (BldA) [Mass fraction] 99 % Dr. Shoshana Ulrich Work Phone: [facility] Work Phone: 09-08-2021 13:35-0400 Systolic blood pressure 135 mm[Hg] Dr. Shoshana Ulrich Work Phone: [facility] Work Phone: 09-08-2021 10:06-0400 Body height 173.[address] Shoshana Ulrich Work Phone: [facility] Work Phone: 09-08-2021 10:06-0400 Body mass index (BMI) [Ratio] 23.9 kg/m2 Dr. Shoshana Ulrihc Work Phone: [facility] Work Phone: 09-08-2021 10:06-0400 Body temperature 97.2 [degF] Dr. Shoshana Ulrich Work Phone: [facility] Work Phone: 09-08-2021 10:06-0400 Body weight 72.[address] Shoshana Ulrich Work Phone: [facility] Work Phone: 09-01-2021 13:17-0400 Body height 172.[address] Shoshana Ulrich Work Phone: [facility] Work Phone: 09-01-2021 13:17-0400 Body weight 74.[address] Shoshana Ulrich Work Phone: [facility] Work Phone: 09-01-2021 13:17-0400 Heart rate 91 /min Dr. Shoshana Ulrich Work Phone: [facility] Work Phone: 09-01-2021 13:17-0400 SaO2% (BldA) [Mass fraction] 93 % Dr. Shoshana Ulrich Work Phone: [facility] Work Phone: 07-14-2021 10:04-0500 Body mass index (BMI) [Ratio] 24.4 kg/m2 Dr. Shoshana Ulrich Work Phone: [facility] Work Phone: 07-14-2021 10:04-0500 Body temperature 97.6 [degF] Dr. Shoshana Ulrich Work Phone: [facility] Work Phone: 07-14-2021 10:04-0500 Diastolic blood pressure 65 mm[Hg] Dr. Shoshana Ulrich Work Phone: [facility] Work Phone: 07-14-2021 10:04-0500 Heart rate 92 /min Dr. Shoshana Ulrich Work Phone: [facility] Work Phone: 07-14-2021 10:04-0500 Respiratory rate 18 /min Dr. Shoshana Ulrich Work Phone: [facility] Work Phone: 07-14-2021 10:04-0500 Systolic blood pressure 131 mm[Hg] Dr. Shoshana Ulrich Work Phone: [facility] Work Phone: 07-14-2021 09:04-0500 Body mass index (BMI) [Ratio] 24.4 kg/m2 Dr. Shoshana Ulrich Work Phone: [facility] Work Phone: 07-14-2021 09:04-0500 Body temperature 97.6 [degF] Dr. Shoshana Ulrich Work Phone: [facility] Work Phone: 07-14-2021 09:04-0500 Diastolic blood pressure 65 mm[Hg] Dr. Shoshana Ulrich Work Phone: [facility] Work Phone: 07-14-2021 09:04-0500 Heart rate 92 /min Dr. Shoshana Ulrich Work Phone: [facility] Work Phone: 07-14-2021 09:04-0500 Respiratory rate 18 /min Dr. Shoshana Ulrich Work Phone: [facility] Work Phone: 07-14-2021 09:04-0500 Systolic blood pressure 131 mm[Hg] Dr. Shoshana Ulrich Work Phone: [facility] Work Phone: 07-14-2021 00:14-0500 Body weight 72.[address] Shoshana Ulrich Work Phone: [facility] Work Phone: 07-13-2021 23:14-0500 Body weight 72.[address] Shoshana Ulrich Work Phone: [facility] Work Phone: 06-30-2021 09:25-0500 Body mass index (BMI) [Ratio] 24.4 kg/m2 Dr. Shoshana Ulrich Work Phone: [facility] Work Phone: 06-30-2021 09:25-0500 Body temperature 97.3 [degF] Dr. Shoshana Ulrich Work Phone: [facility] Work Phone: 06-30-2021 09:25-0500 Diastolic blood pressure 76 mm[Hg] Dr. Shoshana Ulrich Work Phone: [facility] Work Phone: 06-30-2021 09:25-0500 Heart rate 83 /min Dr. Shoshana Ulrich Work Phone: [facility] Work Phone: 06-30-2021 09:25-0500 Respiratory rate 18 /min Dr. Shoshana Ulrich Work Phone: [facility] Work Phone: 06-30-2021 09:25-0500 Systolic blood pressure 156 mm[Hg] Dr. Shoshana Ulrich Work Phone: [facility] Work Phone: 06-15-2021 23:09-0500 Body weight 72.[address] Shoshana Ulrich Work Phone: [facility] Work Phone: 06-09-2021 09:36-0500 Body mass index (BMI) [Ratio] 24.4 kg/m2 Dr. Shoshana Ulrich Work Phone: [facility] Work Phone: 06-09-2021 09:36-0500 Body temperature 96.6 [degF] Dr. Shoshana Ulrich Work Phone: [facility] Work Phone: 06-09-2021 09:36-0500 Diastolic blood pressure 64 mm[Hg] Dr. Shoshana Ulrich Work Phone: [facility] Work Phone: 06-09-2021 09:36-0500 Heart rate 86 /min Dr. Shoshana Ulrich Work Phone: [facility] Work Phone: 06-09-2021 09:36-0500 Respiratory rate 18 /min Dr. Shoshana Ulrich Work Phone: [facility] Work Phone: 06-09-2021 09:36-0500 Systolic blood pressure 113 mm[Hg] Dr. Shoshana Ulrich Work Phone: [facility] Work Phone: 05-26-2021 09:21-0500 Body weight 72.[address] Shoshana Ulrich Work Phone: [facility] Work Phone: 02-24-2017 06:22-0400 BMI (Body Mass Index) 26.15 kg/m2 Sheila Malloy [facility] Work Phone: 02-24-2017 06:22-0400 Body Temperature 98 [degF] Sheila Gama [facility] Phone: 02-24-2017 06:22-0400 BP Diastolic 80 mm[Hg] Sheila Gama [facility] Work Phone: 02-24-2017 06:22-0400 BP Systolic 163 mm[Hg] Sheila Gama [facility] Work Phone: 02-24-2017 06:22-0400 Height 172.72 cm Sheila Gama [facility] Work Phone: 02-24-2017 06:22-0400 Pulse (Heart Rate) 73 /min Sheila Malloy [facility] Work Phone: 02-24-2017 06:22-0400 Respiratory Rate 18 /min Sheila Gama [facility] Work Phone: 02-24-2017 06:22-0400 Weight 78.02 kg Sheila Gama [facility] Work Phone: 11-15-2016 10:01-0400 BMI (Body Mass Index) 25.69 kg/m2 Geetha Hatch LPN [facility] Work Phone: 11-15-2016 10:01-0400 Body Temperature 97.3 [degF] Geetha Yensho [employer] [facility] Work Phone: 11-15-2016 10:01-0400 BP Diastolic 71 mm[Hg] Geetha Yensho [employer] [facility] Work Phone: 11-15-2016 10:01-0400 BP Systolic 106 mm[Hg] Geetha Yensho [employer] [facility] Work Phone: 11-15-2016 10:01-0400 Height 172.72 cm Geetha Yensho [employer] [facility] Work Phone: 11-15-2016 10:01-0400 Pulse (Heart Rate) 98 /min Geetha Yensho [employer] [facility] Work Phone: 11-15-2016 10:01-0400 Respiratory Rate 18 /min Geetha Yensho [employer] [facility] Work Phone: 11-15-2016 10:01-0400 Weight 76.66 kg Geetha Yensho [employer] [facility] Work Phone: Encounters Encounter Date Encounter Type Care Provider Facility Start: 07-24-2024 End: 07-24-[address] Shoshana Ulrich MD Work Phone: [facility] Work Phone: Start: 07-24-2024 End: 07-24-[address] Shoshana Ulrich MD -Laboratory, [facility] Start: 07-24-2024 End: 07-24-2024 ambulatory Shoshana Ulrich Facility:[facility] Start: 07-13-2024 End: 07-13-[address] Jose Figueroa MD -[facility] Work Phone: Start: 07-13-2024 End: 07-13-2024 ambulatory Shoshana Miedel Facility:[facility] Start: 06-26-2024 End: 06-26-2024 Patient encounter procedure Kristen WALKER -[facility] Work Phone: Start: 06-26-2024 End: 06-26-2024 ambulatory Shoshana Miedel Facility:[facility] Start: 06-20-2024 End: 06-20-2024 Emergency department patient visit Shoshana Miedel Facility:[facility] Start: 06-20-2024 ambulatory Shoshana Miedel Facility: [facility] Start: 06-20-2024 Non-patient / Non-visit Dr. Santana jolly MD -[facility] Start: 06-20-2024 End: 06-20-[address] Sai Salazar [facility] -Cardi[facility] Work Phone: Start: 06-20-2024 End: 06-20-2024 ambulatory Shoshana Miedel Facility:[facility] Start: 05-26-2024 End: 05-26-2024 [facility] Start: 04-17-2024 End: 04-17-[address] Shoshana Ulrich MD -Laboratory, [facility] Start: 04-17-2024 End: 04-17-2024 ambulatory Shoshana Miedel Facility:[facility] Start: 03-06-2024 [facility] Start: 02-13-2024 End: 02-13-2024 ambulatory Shoshana Mied Facility:[facility] Start: 01-06-2024 End: 01-06-2024 ambulatory Shoshana Miedel Facility:[facility] Start: 12-06-2023 End: 12-06-2023 ambulatory Shoshana Miedel Facility:[facility] Start: 10-17-2023 ambulatory Shoshana Miedel Facility: [facility] Start: 10-17-2023 End: 10-17-2023 ambulatory Shoshana Miedel Facility:[facility] Start: 09-23-2023 End: 09-23-2023 ambulatory Shoshana Mied Facility:[facility] Start: 09-21-2023 Non-patient / Non-visit Dr. Paul Ulrich Work Phone: [facility] Work Phone: Start: 09-20-2023 ambulatory Lionel Lee Facility :[facility] Start: 09-20-2023 Non-patient / Non-visit Dr. Paul Ulrich Work Phone: [facility] Start: 09-20-2023 Non-patient / Non-visit Dr. Paul Ulrich Work Phone: [facility] Work Phone: Start: 09-20-2023 End: 09-20-2023 ambulatory Shoshana Ulrich [place] Start: 09-19-2023 Non-patient / Non-visit Dr. Paul Ulrich Work Phone: [facility] Start: 09-19-2023 ambulatory Shoshana Ulrich Facility: [facility] Start: 09-19-2023 End: 09-21-2023 Evaluation and management of inpatient Dr. Shoshana Ulrich Work Phone: [facility] 3 Work Phone: Start: 09-05-2023 End: 09-05-[address] Shoshana Ulrich Work Phone: [facility] Work Phone: Start: 09-05-2023 End: 09-05-[address] Shoshana Ulrich Work Phone: [facility] Therapy Work Phone: Start: 08-17-2023 Encounter for preprocedural cardiovascular examination Sunny Manhunter [facility] Start: 08-11-2023 End: 08-11-2023 Non-patient / Non-visit Dr. Shosh[facility] Ul[facility] Work Phone: Start: 08-11-2023 End: 08-11-[address] Shoshana Ulrich Work Phone: [facility] Work Phone: Start: 08-11-2023 End: 08-11-[address] Shoshana Ulrich Work Phone: [facility]Pulmonary Services/Neurology Work Phone: Start: 08-11-2023 End: 08-11-2023 ambulatory [facility] Facility:[facility] Start: 08-09-[address] Cecilia Ulrich Work Phone: [facility] Work Phone: Start: 07-21-2023 End: 07-21-2023 Emergency department patient visit [facility] Work Phone: Start: 06-13-2023 End: 06-13-2023 ambulatory [facility] Work Phone: Start: 06-13-2023 End: 06-13-2023 Patient encounter procedure [facility]MRI - [facility] Work Phone: Start: 04-06-2023 End: 04-06-2023 ambulatory [facility] Work Phone: Start: 04-06-2023 End: 04-06-2023 Patient encounter procedure [facility]-Radiology, [facility] Work Phone: Start: 12-10-2022 End: 12-10-[address] Shoshana Ulrich Work Phone: [facility] Work Phone: Start: 12-10-2022 End: 12-10-[address] Shoshana Ulrich Work Phone: [facility]-Laboratory Work Phone: Start: 11-03-2022 End: 11-04-2022 Evaluation and management of inpatient Dr. Shoshana Ulrich Work Phone: [facility] 3 Start: 11-03-2022 End: 11-04-[address] Shoshana Ulrich Work Phone: [facility] Work Phone: Start: 10-22-2022 Non-patient / Non-visit Dr. Paul Ulrich Work Phone: [facility] Start: 10-22-2022 End: 10-22-[address] Shoshana Ulrich Work Phone: [facility] Work Phone: Start: 10-22-2022 End: 10-22-[address] Shoshana Ulrich Work Phone: [facility]Cardiov[facility] Services Start: 10-07-2022 Non-patient / Non-visit Dr. Paul Ulrich Work Phone: [facility] Start: 10-07-2022 End: 10-07-2022 Emergency department patient visit Dr. Shoshana Ulrich Work Phone: [facility] Start: 07-23-2022 End: 07-23-[address] Shoshana Ulrich Work Phone: [facility] Work Phone: Start: 07-23-2022 End: 07-23-[address] Shoshana Ulrich Work Phone: [facility]-Laboratory, Specimen Start: 07-12-2022 End: 07-12-2022 Non-patient / Non-visit Dr. Shoshana Ulrich Work Phone: [facility] Start: 07-12-2022 End: 07-12-[address] Shoshana Ulrich Work Phone: [facility] Work Phone: Start: 07-12-2022 End: 07-12-[address] Shoshana Ulrich Work Phone: [facility]-Pulmonary Services/Neurology Start: 07-02-2022 End: 07-02-[address] Shoshana Ulrich Work Phone: [facility] Start: 04-09-2022 End: 04-09-2022 [facility] Start: 04-05-2022 End: 04-05-2022 Admission to same day surgery center [facility] Start: 11-05-2021 End: 11-05-[address] Shoshana Ulrich Work Phone: [facility] Start: 09-08-2021 End: 09-08-2021 Emergency department patient visit Dr. Shoshana Ul[facility] Start: 09-02-2021 Non-patient / Non-visit Dr. Paul Ulrich Work Phone: [facility] Start: 09-01-2021 End: 09-01-[address] Shoshana Ulrich Work Phone: [facility]Pulmonary Services/Neurology Start: 08-27-2021 Non-patient / Non-visit Dr. Paul Ulrich Work Phone: [facility] Start: 08-27-2021 End: 08-27-[address] Shoshana Ulrich Work Phone: [facility] Services/Neurology Start: 07-22-2021 End: 07-22-[address] Shosh[facility] Ulrich [facility] Start: 07-14-2021 End: 07-15-[address] [facility] Ul[facility] Start: 06-30-2021 End: 07-13-[address] [facility] Ul[facility] Start: 06-09-2021 End: 06-15-[address] Shoshana Ulrich Work Phone: [facility] Procedures Date Procedure Procedure Detail Performing Clinician Start: 05-26-2024 Plain X-ray of shoulder Dr. Shoshana Ulrich MD Work Phone: Start: 09-20-[address] Shoshana Ulrich Work Phone: Start: 09-19-20[address] e detection Dr. Shoshana Ulrich Work Phone: Start: 09-19-[address] Shoshana Ulrich Work Phone: Start: 09-19-[address] Shoshana Ulrich Work Phone: Start: 09-19-2023 Computed tomography of abdomen and pelvis with intravenous contrast Dr. Shoshana Ulrich Work Phone: Start: 07-21-2023 Plain chest X-ray Start: 07-21-2023 CT cervical spine wi thout contrast Start: 06-13-2023 MRI of lower extremity Start: 04-06-2023 Radiography of thora cic spine Start: 12-10-[address] Cecilia Ulrich Work Phone: Start: 11-03-2022 Cysto,TUR,Prostate,O lympus (Not Applicable) Dr. Shoshana Ulrich Work Phone: Start: 07-02-2022 Plain x-ray of hand Dr. Shoshana Ulrich Work Phone: Start: 04-05-2022 Fluoroscopic guidance Start: 04-05-2022 X-ray of lumbar spin e, two or three views Start: 04-05-2022 Implantation of neurostimulator in spine Start: 11-05-2021 MRI of lumbar spine Dr. Shoshana Ulrich Work Phone: Start: 09-08-2021 Computed tomography of abdomen and pelvis with intravenous contrast Dr. Shoshana Ulrich Work Phone: Start: 07-22-2021 CT of soft tissues o f neck with contrast Dr. Shoshana Ulrich Work Phone: Plan of Treatment Date Care Activity Detail Author Start: 07-13-2024 Patient referral [facility] Work Phone: Start: 06-20-2024 [facility] Start: 05-26-2024 [facility] Start: 09-21-2023 Patient discharge [facility] Start: 09-20-2023 Application of intermittent pneumatic compression device [facility] Start: 09-20-2023 Administration of blood product [facility] Start: 09-20-2023 Transfusion of blood product [facility] Start: 09-20-2023 Inhalation therapy procedure [facility] Start: 09-19-2023 End: 09-19-2023 [facility] Start: 09-19-2023 Following clinical pathway protocol [facility] Start: 09-19-2023 Transfusion of blood product [facility] Start: 09-19-2023 Enteric Bacteriology Enteric Bacteriology [facility] Start: 09-19-2023 Ova and Parasites Ova and Parasites [facility] Start: 09-19-2023 Assessment of risk of venous thromboembolism [facility] Start: 09-19-2023 Documentation procedure [facility] Start: 09-19-2023 Insertion of catheter into peripheral vein [facility] Start: 09-19-2023 Providing care according to standard [facility] Start: 09-19-2023 Provision of activity privileges [facility] Start: 09-19-2023 Referral to gastroenterology service [facility] Start: 09-19-2023 Referral to occupational therapist [facility] Start: 09-19-2023 Referral to service [facility] Start: 09-19-2023 [facility] Start: 09-19-2023 Hospital admission, emergency, from emergency room, medical nature [facility] Start: 09-19-2023 Admission procedure [facility] Start: 09-19-2023 Enteric precautions [facility] Start: 07-21-2023 [facility] Start: 11-04-2022 Oxygen therapy [facility] Start: 11-04-2022 Patient discharge [facility] Start: 11-04-2022 Removal of urinary catheter [facility] Start: 11-03-2022 Following clinical pathway protocol [facility] Start: 11-03-2022 Anesthesia transurethral resection of prostate ANESTH REMOVAL OF PROSTATE [facility] Start: 11-03-2022 Trurl electrosurg rescj prostate bleed complete PROSTATECTOMY (TURP) [facility] Start: 11-03-2022 Deep breathing and coughing exercises [facility] Start: 11-03-2022 Incentive spirometry [facility] Start: 11-03-2022 Provision of activity privileges [facility] Start: 11-03-2022 Admission procedure [facility] Start: 11-03-2022 Irrigation of urinary bladder [facility] Start: 11-03-2022 Measuring intake and output [facility] Start: 11-03-2022 Patient education [facility] Start: 11-03-2022 Taking patient vital signs [facility] Start: 11-03-2022 Vital signs measurements [facility] Start: 11-03-2022 End: 11-03-2022 [facility] Start: 11-03-2022 Inhalation therapy procedure [facility] Start: 04-09-2022 Blood chemistry [facility] Work Phone: Start: 04-05-2022 Anes integ musc & nrv head neck&posterior trunk ANESTH HEAD/NECK/PTRUNK [facility] Start: 04-05-2022 Insj/rplcmt spi npgr dir/induxive coupling INSRT/REDO SPINE N GENERATOR [facility] Start: 04-05-2022 Prq impltj nstim electrode array epidural IMPLANT NEUROELECTRODES [facility] Start: 04-05-2022 Patient discharge [facility] Start: 02-24-2017 End: 02-24-2017 Appointment Appointment [facility] Phone: Start: 02-08-2017 End: 11-26-2016 Ct thorax w/contrast material CT Chest with Contrast [facility] Phone: Start: 01-14-2017 End: 01-14-2017 Appointment [facility] Phone: Start: 11-15-2016 End: 11-15-2016 Follow Up Appt 2 months Follow Up Appt 2 months [facility] Phone: Start: 11-15-2016 End: 11-18-[address] attenuation skull base mid-thigh 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 [facility] Phone: Start: 11-15-2016 End: 11-15-2016 Pulmonary Function Test - complete Pulmonary Function Test - complete [facility] Phone: Start: 11-15-2016 End: 11-15-2016 Pulmonary stress test/simple Pulmonary stress testing; simple (eg, 6-minute walk) [facility] Phone: Start: 11-15-2016 End: 11-15-2016 Appointment Appointment [facility] Phone: Start: 11-15-2016 End: 11-15-2016 Follow Up Appt 2 months Follow Up Appt 2 months [facility] Phone: Start: 11-15-2016 End: 11-18-2016 Pet image w/ct, 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 [facility] Phone: Start: 11-15-2016 End: 11-15-2016 Pulmonary Function Test - complete Pulmonary Function Test - complete [facility] Phone: Start: 11-15-2016 End: 11-15-2016 Pulmonary stress test/simple Pulmonary stress testing; simple (eg, 6-minute walk) [facility] Work Phone: Anion gap measurement [facility] Work Phone: BUN/Creatinine ratio [facility] Work Phone: Calcium [Mass/volume ] in Serum or Plasma [facility] Work Phone: Carbon dioxide, tota l [Moles/volume] in Serum or Plasma [facility] Work Phone: Chloride [Moles/volu me] in Serum or Plasma [facility] Work Phone: Creatinine [Moles/vo lume] in Serum or Plasma [facility] Work Phone: Gastrointestinal pat hogens panel - Stool by JOSTIN with probe detection [facility] Glucose [Mass/volume ] in Serum or Plasma [facility] Work Phone: Hematocrit [Volume Fraction] of Blood [facility] Work Phone: Hemoglobin [Mass/vol ume] in Blood [facility] Work Phone: Leukocytes [#/volume ] in Blood [facility] Work Phone: Mean corpuscular hemoglobin concentration determination [facility] Work Phone: Mean corpuscular hemoglobin determination [facility] Work Phone: Measurement of renal function [facility] Work Phone: Neutrophil count [facility] Work Phone: Neutrophil percent differential count [facility] Work Phone: Ova and parasites identified in Unspecified specimen by Light microscopy [facility] Patient Education [facility] Work Phone: Patient referral [facility] Work Phone: Platelets [#/volume] in Blood [facility] Work Phone: Potassium [Moles/vol ume] in Serum or Plasma [facility] Work Phone: Red blood cell count [facility] Work Phone: Red cell distributio n width determination [facility] Work Phone: Sodium [Moles/volume ] in Serum or Plasma [facility] Work Phone: Urea nitrogen [Mass/volume] in Serum or Plasma [facility] Work Phone: Immunizations Immunization Date Immunization Notes Care Provider [facility] 07-10-2020 Covid (Moderna) Dr. Shoshana warren Work Phone: [facility] 06-12-2020 Covid (Moderna) Dr. Shoshana warren Work Phone: [facility] Payers Date Payer Category Payer Self-pay [id number] 2023 Medicare [id number] 2002 Medicare [id number] Unknown [id number] Unknown [id number] 2.16.8 [id number] Unknown [id number] 2.16.8 40.1.478095.3.579.2.462 Unknown [id number] 2.16.8 40.1.821327.3.579.2.462 Unknown [id number] 2.16.8 40.1.094132.3.579.2.462 Unknown [id number] 2.16.8 40.1.707048.3.579.2.462 Unknown [id number] 2.16.8 40.1.001684.3.579.2.462 Unknown [id number] 2.16.8 40.1.949788.3.579.2.462 Unknown [id number] 2.16.8 40.1.267621.3.579.2.462 Unknown [id number] 2.16.8 40.1.379811.3.579.2.462 Unknown [id number] 2.16.8 40.1.210983.3.579.2.462 Unknown [id number] 2.16.8 40.1.811500.3.579.2.462 Unknown [id number] 2.16.8 40.1.345916.3.579.2.462 Unknown [id number] 2.16.8 40.1.584009.3.579.2.462 Unknown [id number] 2.16.8 40.1.347679.3.579.2.462 Unknown [id number] 2.16.8 40.1.645878.3.579.2.462 Unknown [id number] 2.16.8 40.1.596050.3.579.2.462 Unknown [id number] 2.16.8 40.1.713553.3.579.2.462 Unknown [id number] 2.16.8 40.1.284447.3.579.2.462 Unknown [id number] 2.16.8 40.1.939868.3.579.2.462 Unknown [id number] 2.16.8 40.1.823658.3.579.2.462 Unknown [id number] 2.16.8 40.1.909880.3.579.2.462 Unknown [id number] 2.16.8 40.1.342524.3.579.2.462 Unknown [id number] 2.16.8 40.1.820743.3.579.2.462 Unknown [id number] 2.16.8 40.1.925020.3.579.2.462 Unknown [id number] 2.16.8 40.1.828279.3.579.2.462 Social History Date Type Detail Facility Start: 05-26-2021 End: 09-20-2023 Tobacco smoking status NHIS Unknown if ever smoked [facility] Start: 07-08-2020 None [facility] Start: 07-08-2020 Spouse/ Signif icant Other [facility] Start: 09-11-2020 Cigarettes [facility] Start: 1935 Sex Assigned At Male W [facility] Start: 07-13-2024 Tobacco smoking status NHIS Smokes tobacco daily (finding) [facility] Start: 08-03-2024 Sex Male (finding) [facility] Medical Equipment Procedure Code Equipment Code Equipment Origin al Text Equipment Identifier Dates Insertion, spinal cord stimulator, permanent [employer] FDA Start: 04-05-2022 Insertion, spinal cord stimulator, permanent [employer] LE[employer] FDA Start: 04-05-2022 Insertion, spinal cord stimulator, permanent [employer] LE[employer] FDA Start: 04-05-2022 Insertion, spinal cord stimulator, permanent ([id number]) Implantable pulse generator mesh bag, bioabsorbable [id number] FDA Start: 04-05-2022 Insertion, spinal cord stimulator, permanent [employer] FDA Start: 04-05-2022 Insertion, spinal cord stimulator, permanent [employer] LE[employer] FDA Start: 04-05-2022 Insertion, spinal cord stimulator, permanent [employer] LE[employer] FDA Start: 04-05-2022 Insertion, spinal cord stimulator, permanent [employer] FDA Start: 04-05-2022 Insertion, spinal cord stimulator, permanent [employer] FDA Start: 04-05-2022 Insertion, spinal cord stimulator, permanent [employer] FDA Start: 04-05-2022 Insertion, spinal cord stimulator, permanent [employer] FDA Start: 04-05-2022 Insertion, spinal cord stimulator, permanent [employer] FDA Start: 04-05-2022 Insertion, spinal cord stimulator, permanent [employer] FDA Start: 04-05-2022 Insertion, spinal cord stimulator, permanent [employer] FDA Start: 04-05-2022 Insertion, spinal cord stimulator, permanent [employer] FDA Start: 04-05-2022 Insertion, spinal cord stimulator, permanent [employer] FDA Start: 04-05-2022 Insertion, spinal cord stimulator, permanent [employer] FDA Start: 04-05-2022 Insertion, spinal cord stimulator, permanent [employer] FDA Start: 04-05-2022 Insertion, spinal cord stimulator, permanent [employer] FDA Start: 04-05-2022 Insertion, spinal cord stimulator, permanent [employer] FDA Start: 04-05-2022 Insertion, spinal cord stimulator, permanent [employer] FDA Start: 04-05-2022 Insertion, spinal cord stimulator, permanent [employer] FDA Start: 04-05-2022 Insertion, spinal cord stimulator, permanent [employer] FDA Start: 04-05-2022 Insertion, spinal cord stimulator, permanent [employer] FDA Start: 04-05-2022 Insertion, spinal cord stimulator, permanent [employer] FDA Start: 04-05-2022 Insertion, spinal cord stimulator, permanent [employer] FDA Start: 04-05-2022 Insertion, spinal cord stimulator, permanent [employer] FDA Start: 04-05-2022 Insertion, spinal cord stimulator, permanent [employer] FDA Start: 04-05-2022 Insertion, spinal cord stimulator, permanent [employer] FDA Start: 04-05-2022 Insertion, spinal cord stimulator, permanent [employer] FDA Start: 04-05-2022 Insertion, spinal cord stimulator, permanent [employer] FDA Start: 04-05-2022 Insertion, spinal cord stimulator, permanent [employer] FDA Start: 04-05-2022 Insertion, spinal cord stimulator, permanent [employer] FDA Start: 04-05-2022 Insertion, spinal cord stimulator, permanent [employer] FDA Start: 04-05-2022 Insertion, spinal cord stimulator, permanent [employer] FDA Start: 04-05-2022 Insertion, spinal cord stimulator, permanent [employer] FDA Start: 04-05-2022 Insertion, spinal cord stimulator, permanent [employer] FDA Start: 04-05-2022 Insertion, spinal cord stimulator, permanent [employer] FDA Start: 04-05-2022 Insertion, spinal cord stimulator, permanent [employer] FDA Start: 04-05-2022 Insertion, spinal cord stimulator, permanent [employer] FDA Start: 04-05-2022 Colonoscopy CLIP,RESO 360 UL TRA 235_17 FDA Start: 09-20-2023 Colonoscopy CLIP,RESO 360 UL TRA 235_17 FDA Start: 09-20-2023 Colonoscopy CLIP,RESO 360 UL TRA 235_17 FDA Start: 09-20-2023 Colonoscopy CLIP,RESO 360 UL TRA 235_17 FDA Start: 09-20-2023 TUBE, EAR RILEY FDA Start: 07-12-2017 TUBE, EAR RILEY FDA Start: 07-12-2017 TUBE, EAR RILEY FDA Start: 07-12-2017 TUBE, EAR RILEY FDA Start: 07-12-2017 TUBE, EAR RILEY FDA Start: 07-12-2017 TUBE, EAR RILEY FDA Start: 07-12-2017 [employer] Ur [employer]ift System FDA Start: 12-21-2018 TUBE, EAR RILEY FDA Start: 07-12-2017 TUBE, EAR RILEY FDA Start: 07-12-2017 [employer] FDA Start: 12-21-2018 TUBE, EAR RILEY FDA Start: 07-12-2017 TUBE, EAR RILEY FDA Start: 07-12-2017 [employer] Ur [employer] System FDA Start: 12-21-2018 TUBE, EAR RILEY FDA Start: 07-12-2017 TUBE, EAR RILEY FDA Start: 07-12-2017 [employer] Ur [employer] System FDA Start: 12-21-2018 TUBE, EAR RILEY FDA Start: 07-12-2017 TUBE, EAR RILEY FDA Start: 07-12-2017 [employer] FDA Start: 12-21-2018 TUBE, EAR RILEY FDA Start: 07-12-2017 TUBE, EAR RILEY FDA Start: 07-12-2017 [employer] FDA Start: 12-21-2018 TUBE, EAR RILEY FDA Start: 07-12-2017 TUBE, EAR RILEY FDA Start: 07-12-2017 [employer] Ur [employer] FDA Start: 12-21-2018 TUBE, EAR RILEY FDA Start: 07-12-2017 TUBE, EAR RILEY FDA Start: 07-12-2017 [employer] FDA Start: 12-21-2018 TUBE, EAR RILEY FDA Start: 07-12-2017 TUBE, EAR RILEY FDA Start: 07-12-2017 [employer] FDA Start: 12-21-2018 TUBE, EAR RILEY FDA Start: 07-12-2017 TUBE, EAR RILEY FDA Start: 07-12-2017 [employer] Ur [employer] System FDA Start: 12-21-2018 TUBE, EAR RILEY FDA Start: 07-12-2017 TUBE, EAR RILEY FDA Start: 07-12-2017 [employer] Ur [employer] FDA Start: 12-21-2018 TUBE, EAR RILEY FDA Start: 07-12-2017 TUBE, EAR RILEY FDA Start: 07-12-2017 [employer] FDA Start: 12-21-2018 TUBE, EAR RILEY FDA Start: 07-12-2017 TUBE, EAR RILEY FDA Start: 07-12-2017 [employer] FDA Start: 12-21-2018 TUBE, EAR RILEY FDA Start: 07-12-2017 TUBE, EAR RILEY FDA Start: 07-12-2017 [employer] FDA Start: 12-21-2018 TUBE, EAR RILEY FDA Start: 07-12-2017 TUBE, EAR RILEY FDA Start: 07-12-2017 [employer] FDA Start: 12-21-2018 Goals Date Patient Goal Desired Activity /State Functional Status Date Assessment Result Facility 09-21-2023 Functional status Patient Activi ty Ambulates;Up ad puma [facility] Work Phone: 09-20-2023 Functional status Activity Ability Indepe ndent [facility] Work Phone: 09-20-2023 Functional status None [facility] Work Phone: 11-04-2022 Functional status Patient Activi ty Ambulates;Chair [facility] Work Phone: 11-04-2022 Functional status Activity Abili ty Independent;Standby Assist [facility] Work Phone: 11-03-2022 Functional status Standard Walker [facility] Work Phone: Mental Status Date Assessment Result Facility 09-21-2023 Cognitive function Voice/Name [facility] Work Phone: 11-04-2022 Cognitive function Level Of Cons ciousness Awake;Alert;Appropriate;Follow s Commands [facility] Work Phone: 11-04-2022 Cognitive function Voice/Name [facility] Work Phone: 10-07-2022 Cognitive function Level Of Cons ciousness Awake;Alert;Appropriate [facility] Work Phone: 04-05-2022 Cognitive function Voice/Name [facility] Work Phone: Clinical Notes 09-11-2021 to 06-26-2024 Note Date & Type Note Facility 06-26-2024 Evaluation note Diagnosis Onset Date Resolution Acute deep vein thrombosis (DVT) of right lower extremity inactive June 26, 3:50pm 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, 2024 12:50pm Paresthesia chronic June 12:50pm [facility] Work Phone: 1(833) 777-452505-08-2024 [facility] Medical Records Department [address] [place] [id number] Discharge Summary 09/21/23 1245 MR#: [id number] Acct: [id number] Name: DORIAN CRAMER Rep #: [id number] : 1935 88 From: Rosemary Fernandez DO PCP: Dr. Shoshana Ulrich MD Status:ADM IN Location: [place] [address] Providers Date of Admission: 09/19/23 Date of Discharge: 09/21/23 Primary Care Physician: Dr. Shoshana Ulrich MD Consultations 09/19/23 13:51 Consult: Gastroenterology Routine Consulting Provider: [facility] Reason for Consult: GI bleed EMERGENT Consult: No MD Notified: Yes Date Notified: 09/19/23 Time Notified: 12:23 Method of Notification: ED Physician Initiated Reason For Visit: BRBPR Diagnosis Discharge Diagnosis (1) GIB (gastrointestinal bleeding): Status: Acute Code(s): K92.2 - Gastrointestinal hemorrhage, unspecified (2) BRBPR (bright red blood per rectum): Status: Acute Code(s): K62.5 - Hemorrhage of anus and rectum (3) Acute on chronic anemia: Status: Chronic Code(s): D64.9 - Anemia, unspecified Medications at Discharge Home Medications albuterol sulfate 90 mcg/actuation aerosol inhaler 1 puff inhalation Q4H PRN sob/wheezing 09/08/21 finasteride 5 mg tablet 5 mg PO DAILY 09/08/21 amlodipine 5 mg tablet 5 mg PO DAILY 07/02/22 gabapentin 100 mg capsule 100 mg PO QHS 10/27/22 oxycodone 5 mg capsule 5 mg PO Q6H PRN pain 3 days #10 caps 11/03/22 artifi.tears(hypromellose)(PF) 1.7 % eye drops with applicator 1 drp EACH EYE DAILY PRN dry eyes 09/19/23 budesonide 160 mcg-glycopyr 9 mcg-formot 4.8 mcg/actuation HFA inhaler (Breztri Aerosphere) 2 inh inhalation BID 09/19/23 nystatin 100,000 unit/gram topical cream 1 applic topical 4X/DAY PRN skin irritation 09/19/23 oxybutynin chloride 10 mg tablet,extended release 24 hr 10 mg PO DAILY 09/19/23 Hospital Course Operations None Procedures Blood transfusion and Colonoscopy Summary of Care Provided Minutes Spent on Discharge: 37 Hospital Course: DORIAN CRAMER, is a 88 M who presented to the emergency department [facility] on 09/19/2023 with bright red blood per rectum. He stated it started on the day of presentation. He reported when he woke up this morning he felt okay but had some pressure in his lower abdomen just below the umbilicus into the left. He stated after that he had a couple bouts of loose stool with blood noted that relieved the pressure. He denied any lightheadedness, dizziness, nausea, or vomiting. He does of diverticulosis and diverticulitis and remote history of GI bleeding but does not think he was admitted to the hospital at that time. He is not currently on anticoagulation but did complain of a headache last evening at which time he took 2 aspirin. Headache is resolved at this time. He indicated if he was not having blood in his stool he would not be in the emergency department. Vital signs on presentation showed temperature 96.9, heart rate was 90, blood pressure was 153/83, respiratory is 18 oxygen saturations are 99% on room air. CBC showed an anemia that is slightly worse than baseline at 10.9. Baseline appears to be between 11 and 12. Platelet count was normal and he had no leukocytosis. Coags were normal. His chemistry panel was overtly unremarkable with a chronic stable elevated BUN and creatinine and a normal ratio. Serum creatinine on presentation was 1.25 (baseline 1-1.3). His glucose was 109. LFTs were unremarkable. CT abdomen pelvis was done and showed diffuse diverticulosis in the sigmoid colon, stable adenoma of the right adrenal gland, stable bilateral renal cysts and round atelectasis in the right lower lobe. He was admitted to the medical floor and placed on IV Protonix 40 mg twice daily, serial hemoglobins were monitored and he was started with a bowel prep for colonoscopy. By the a.m. of 09/20/2023 his hemo globin had dropped from his baseline of between 11 and 12-8.3 so we did give him 1 unit of blood. H is blood counts did seem to stabilize in the mid to low 8 range. After 1 unit of blood his hemoglob in was up to 9.4 and corrected appropriately. 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 He also had several 1 to 2 mm polyps throughout his colon that were resected with hot snare. Repeat colonoscopy was recommended in 6 months and he is to avoid aspirin, ibuprofen, naproxen and other no nsteroidal anti-inflammatory drugs for 4 weeks. Patient was feeling well and tolerating a regular di et with a stable hemoglobin on 09/21/2023 and felt stable for discharge. Patient was discharged home in stable condition. No prescription changes were made. I have asked him to follow-up with [facility] within the next week and have a repeat CBC he also was schedule an ap (more content not included)...[facility]20-2023 [facility] Procedure note [facility]05-07-2024 Progress note Author Rosemary Fernandez [facility] September 20, 2023 1:17pm Note Date/Time September 20, 2023 1:17pm [facility] Medical Records Department [address] [place] [address] Progress Note - Hospitalist 09/20/23 1314 MR#: [id number] Acct: [id number] Name: DORIAN CRAMER Rep #:[id number] : 1935 88 From: Rosemary Fernandez DO PCP: Dr. Shoshana Ulrich MD Status:ADM IN Location: [facility] [id number] Reason for Visit Reason for Visit: Bright red blood per rectum Subjective Subjective Patient states he is very fatigued due to bowel prep through the night and lots of stool output. He states his stool was still intermittently bloody however less so as the night went on. His hemoglobin did drop but appears to be stabilizing. I did discuss with him transfusion he is amenable to a unit of blood. No specific complaints at this time. Objective Data Objective Data Vital Signs: Vital Signs Temp Pulse Resp BP Pulse Ox O2 Del Method 98.1 F 76 18 112/61 98 Room Air 09/20/23 13:02 09/20/23 13:02 09/20/23 13:02 09/20/23 13:02 09/20/23 13:02 09/20/23 13:02 Oxygen Delivery Method Room Air Weight: 68.5 kg Body Mass Index (BMI) 22.9 Intake & Output: Intake and Output for Last 24 Hours 09/18/23 09/19/23 09/20/23 23:59 23:59 23:59 Intake Total 110 / 110 1307.5 / 1307.5 Balance 110 / 110 1307.5 / 1307.5 Lab / Micro Data 09/20/23 06:35 09/20/23 06:35 Labs: Laboratory Results - last 24 hr 09/19/23 08:45: Crossmatch See Detail 09/19/23 14:04: Hgb 9.8 L, Hct 31.4 L 09/19/23 19:27: Hgb 8.7 L, Hct 27.9 L 09/20/23 02:13: Hgb 8.1 L, Hct 24.7 L 09/20/23 06:35: WBC 4.1 L, RBC 2.59 L, Hgb 8.3 L, Hct 25.7 L, MCV 99.2 H, MCH 32.0, MCHC 32.3, RDW Std Deviation 54.2 H, RDW Coeff of Beth 15.0 H, Plt Count 160, MPV 10.6, Immature Gran % (Auto) 0.200, Neut % (Auto) 59.0, Lymph % (Auto) 22.8, Gaines % (Auto) 7.8, Eos % (Auto) 9.2 H, Baso % (Auto) 1.0, Absolute Neuts (auto) 2.4, Absolute Lymphs (auto) 0.94, Nucleated RBC % 0, Sodium 140, Potassium 4.3, Chloride 111 H, Carbon Dioxide 28.0, Anion Gap 1 L, BUN 21 H, Creatinine 1.06, Estim Creat Clear Calc 48.40, Est GFR (MDRD) Af Amer 85, Est GFR (MDRD) Non-Af 70, BUN/Creatinine Ratio 19.8, Glucose 94, Calcium 8.1 L, Phosphorus 3.4, Magnesium 2.1, Total Bilirubin 0.60, AST 12 L, ALT 15 L, Alkaline Phosphatase 53, Total Protein 5.2 L, Albumin 2.7 L, Globulin 2.5, Albumin/Globulin Ratio 1.1, TSH 1.09 Micro: Microbiology 09/19/23 11:51 Stool Stool Lactoferrin - Final 09/19/23 11:51 Stool Enteric Bacteriology - Final 09/19/23 11:51 Stool Clostridioides difficile (PCR) - Final Physical Exam Const alert, oriented x3, no apparent distress, average body habitus and well nourished Constitutional Narrative: Very pleasant, elderly, white male, lying in left side-lying in the bed currently receiving an enema, appears comfortable, nontoxic General Appearance: cooperative HEENT normocephalic, head/scalp atraumatic and moist oral mucous membranes HEENT Narrative: Dentures in place, Mallampati 2-3, no thrush Resp normal respiratory effort, no retractions, no use of accessory muscles and clearto auscultation bilaterally Resp Narrative: Diffusely diminished but clear Auscultation: Negative for rales, rhonchi or wheezes Cardio regular rate, regular rhythm, S1 normal heart sound, S2 normal heart sound, no murmurs, no rub, no gallops and no clicks GI normal to inspection, nondistended, normoactive bowel sounds, soft to palpation and non-tender Extremity no clubbing, cyanosis or edema Extremity Narrative: Pedal pulses are 2+ Neuro oriented x3, moves all extremities and no focal motor deficits Speech: speech normal Psych affect normal Psych Narrative: Interacts appropriately, eye contact is good, very pleasant Assessment & Plan Assessment/Plan (1) GIB (gastrointestinal bleeding): (2) BRBPR (bright red blood per rectum): (3) Acute on chronic anemia: PLAN: Plan Lower GI bleed with bright red blood per rectum -Highly suspect lower GI bleed -Patient now n.p.o. preparing for EGD and colonoscopy later today -Continue IV fluids -Transfuse 1 unit packed red blood cell -Low suspicion of upper GI bleed with normal BUN to serum creatinine ratio -Patient has CT of the abdomen pelvis done which showed significant diverticulosis with no acute abnormality identified -GI is following-appreciate input Diarrhea -Suspect related to bleeding -Enteric panel and C. 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 Urinary retention -Continue home oxybutynin COPD -Continue home inhalers -As needed albuterol Chronic pain -Continue home oxycodone -continue home gabapentin JASMIN -Continue home CPAP Tobacco abuse -Patient continues to smoke about 10 cigarettes daily -denies need for nicotine replacement therapy -Encouraged cessation -Patient states he plans on quitting on October 11, 2023 per discussion with his prior to admission DVT prophylaxis -No chemoprophylaxis due to GI bleed -SCDs CODE STATUS -DNR CCA but okay for short-term intubation -I did discuss with patient that his CODE STATUS would we suspended during his procedures and that in the event of a cardiac or respiratory arrest he would be full code at that time until after he was stabilized following endoscopy. He voiced interest standing and is agreeable with proceeding with endoscopy. Charges/Coding Visit Charges Inpatient E&M: 66254 Subs Hosp L2 09/20/23 1033 <Electronically signed by Rosemary Fernandez DO> Cosigner Signature (if applicable): CC: ~ Signed [facility] Work Phone: 1(817) 235-242405-06-2024 Consult note Author Lionel Lee [facility] September 19, 2023 5:56pm Note Date/Time September 19, 2023 5:50pm [facility] Medical Records Department [address] [place] [address] Consultation - GI 09/19/23 1750 MR#: [id number] Acct: [id number] Name: DORIAN CRAMER Rep #:[id number] : 1935 88 From: Lionel Lee DO PCP: Dr. Shoshana Ulrich MD Status:ADM IN Location: [facility] [place] GE712-5 HPI Consult Data Date of Consult: 09/19/23 HPI Narrative Reason for Consultation: GI bleed HPI Narrative: DORIAN CRAMER, is a 88-year-old male presenting with bright red bleeding per rectum. He has a history of hemorrhoids but states they are not bleeding. He is not on any blood thinners. He states he has a history of GI bleed in the past a couple of years ago but states he does not think he was admitted to the hospital. Patient states that last night he had a bit of a headache and took a couple of aspirin. This morning he states he does not feel too unwell but noticed he is having somepressure in his lower abdomen and points to just below the umbilicus and to the left. Patient states that he had a couple of hours of blood in his stool with the pressure. The pressure was intermittent. He is not lightheaded, dizzy, nauseous. Denies surgical history in the abdomen. Denies urinary complaints. CT scan : Diffuse diverticulosis of the sigmoid colon. Stable adenoma in the right adrenal gland. Stable bilateral renal cysts. Findings suggestive of a round atelectasis in the right lower lobe. 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 Prostate disease Restless legs Shortness of breath on exertion Shoulder pain Smoker Wears glasses Wears hearing aid in both ears Home Medications albuterol sulfate 90 mcg/actuation aerosol inhaler 1 puff inhalation Q4H PRN sob/wheezing 09/08/21 [History Last Taken Unknown] finasteride 5 mg tablet 5 mg PO DAILY 09/08/21 [History Last Taken Unknown] amlodipine 5 mg tablet 5 mg PO DAILY 07/02/22 [History Last Taken 09/18/23] gabapentin 100 mg capsule 100 mg PO QHS 10/27/22 [History Last Taken 09/18/23] oxycodone 5 mg capsule 5 mg PO Q6H PRN pain 3 days #10 caps 11/03/22 [Rx Last Taken 09/18/23] artifi.tears(hypromellose)(PF) 1.7 % eye drops with applicator 1 drp EACH EYE DAILY PRN dry eyes 09/19/23 [History Last Taken Unknown] budesonide 160 mcg-glycopyr 9 mcg-formot 4.8 mcg/actuation HFA inhaler (Breztri Aerosphere) 2 inh inhalation BID 09/19/23 [History Last Taken 09/18/23] nystatin 100,000 unit/gram topical cream 1 applic topical 4X/DAY PRN skin irritation 09/19/23 [History Last Taken Unknown] oxybutynin chloride 10 mg tablet,extended release 24 hr 10 mg PO DAILY 09/19/23 [History Last Taken Unknown] Allergy/AdvReac Type Severity Reaction Status Date / Time ibuprofen [From Motrin] Allergy Swelling Verified 09/19/23 08:25 Family History no significant family his Surgical History History of cystoscopy History of esophagogastroduodenoscopy (EGD) History of hand surgery History of parotidectomy History of varicose vein stripping Hx of basal cell carcinoma excision Hx of decompressive lumbar laminectomy Hx of finger joint replacement Hx of myringotomy S/P insertion of spinal cord stimulator Social History (Updated 09/19/23 @ 17:[address] Rosemary Fernandez DO) household members: spouse housing: house Smoking Status: Current every day smoker tobacco type: cigarettes Smoking packsper day: 0.5 Smoking cigarettes per day: 10.0 alcohol intake: former substance use type: does not use ROS Constitutional Constitutional: Denies anorexia, change in weight, chills, fatigue, fever(s), malaise, night sweats, weakness or other Eyes Eyes: Denies blurry vision, change in eye color, change in vision, discharge from eye(s), double vision, erythema, eye pain, loss of vision or other ENT HEENT: Reports abnormal hearing; Denies dysphagia, ear pain, epistaxis, headache(s), hearing loss, nasal congestion, nasal discharge, post nasal drip, sinus pressure, sore throat or other Cardiovascular Cardiovascular: Denies chest pain, claudication, dyspnea on exertion, edema, lightheadedness, orthopnea, palpitations, paroxysmal nocturnal dyspnea, rapid heart rate, syncope or other Respiratory/Chest Respiratory/Chest: Denies cough, dyspnea, excessive phlegm production, hemoptysis, productive cough, shortness of breath at rest, shortness of breath with exertion, wheezing or other Gastrointestinal Gastrointestinal: Reports abdominal pain, diarrhea and hematochezia; Denies coffee ground emesis, constipation, dyspepsia, hematemesis, loose stools, melena, nausea, vomiting or other Genitourinary Genitourinary: Reports difficulty urinating, nocturia, urinary frequency and urinary hesitancy; Denies burning urination, dysuria, hematuria, urinary incontinence, urinary urgency or other Musculoskeletal Musculoskeletal: Reports back pain, joint pain and joint stiffness; Denies arthralgias, joint swelling, myalgias, neck pain or other Neurologic Neurologic: Denies abnormal gait, abnormal speech, confusion, disequilibrium, dizziness, focal weakness, headache(s), numbness, paresthesias, seizure-like activity, seizures, syncope, tingling, tremor(s) or other Psychiatric Psychiatric: Denies anxiety, depression, homicidal ideation, suicidal ideation or other Endocrine Endocrinology: Denies change in body appearance, cold intolerance, excessive sweating, heat intolerance, polydipsia, polyuria or other Hematologic/Lymphatic Hematologic/Lymphatic: Denies anemia, easy bleeding, easy bruising, lymphadenopathy or other Allergic/Immunologic Allergic/Immunologic: Denies rhinitis, hives, eczemia, asthma or other Physical Exam Const alert, oriented x3, no apparent distress, average body habitus and well nourished Constitutional Narrative: Very pleasant General Appearance: cooperative HEENT normocephalic, head/scalp atraumatic and moist oral mucous membranes HEENT Narrative: Mild to moderate hearing loss, dentition is poor, mild putty is 2-3, no thrush Eyes PERRL, EOMs intact bilaterally and conjunctivae normal Eyes Narrative: No scleral icterus Neck no lymphadenopathy and supple Neck Narrative: Trachea midline, no thyroid enlargement Resp normal respiratory effort, no retractions, no use of accessory muscles and No clear to auscultation bilaterally Resp Narrative: Diffusely diminished with few scattered end expiratory wheezes that clear with cough Auscultation: wheezes; Negative for rales or rhonchi Cardio regular rate, regular rhythm, S1 normal heart sound, S2 normal heart sound, no murmurs, no rub, no gallops and no clicks GI normal to inspection, nondistended, normoactive bowel sounds, soft to palpation and non-tender Extremity no clubbing, cyanosis or edema Extremity Narrative: Pedal pulses are 2+ Skin skin turgor normal, no jaundice, no petechiae and no mottling Skin Narrative: Age and sun exposure related changes noted but no wounds or rashes Neuro oriented x3, CN's II-XII intact bilaterally, moves all extremities and no focal motor deficits Speech: speech normal Psych affect normal Psych Narrative: Interacts appropriately, eye contact is good, very pleasant Lab / Micro Data 09/19/23 14:04 09/19/23 08:45 Labs: Laboratory Results - last 24 hr 09/19/23 08:45: WBC 6.8, RBC 3.40 L, Hgb 10.9 L, Hct 34.0 L, MCV 100.0 H, MCH 32.1 H, MCHC 32.1, RDW Std Deviation 55.0 H, RDW Coeff of Beth 14.9 H, Plt Count 193, MPV 10.6, Immature Gran % (Auto) 0.700, Neut % (Auto) 68.4, Lymph % (Auto) 15.3 L, Gaines % (Auto) 6.9, Eos % (Auto) 8.1 H, Baso % (Auto) 0.6, Absolute Neuts(auto) 4.6, Absolute Lymphs (auto) 1.04, Nucleated RBC % 0, PT 13.8, INR 1.1, Sodium 139, Potassium 4.5, Chloride 111 H, Carbon Dioxide 26.0, Anion Gap 2 L, BUN 30 H, Creatinine 1.25, Estim Creat Clear Calc 39.46, Est GFR (MDRD) Af Amer 70, Est GFR (MDRD) Non-Af 58 L, BUN/Creatinine Ratio 24.0 H, Glucose 109 H, Calcium 8.8, Total Bilirubin 0.30, AST 15, ALT 18, Alkaline Phosphatase 62, Total Protein 6.3 L, Albumin 3.2, Globulin 3.1, Albumin/Globulin Ratio 1.0, Blood Type A POSITIVE, Antibody Screen NEGATIVE 09/19/23 14:04: Hgb 9.8 L, Hct 31.4 L Micro: Microbiology 09/19/23 11:51 Stool Stool Lactoferrin - Final 09/19/23 11:51 Stool Enteric Bacteriology - Final 09/19/23 11:51 Stool Clostridioides difficile (PCR) - Final Imaging Radiology Impression Abdomen/Pelvis CT 09/19/23 08:50 IMPRESSION: Diffuse diverticulosis of the sigmoid colon. Stable adenoma in the right adrenal gland. Stable bilateral renal cysts. Findings suggestive of a round atelectasis in the right lower lobe. Electronically Signed: Felix Dykes MD at 10:16 EDT , Assessment & Plan Assessment/Plan (1) GIB (gastrointestinal bleeding): (2) BRBPR (bright red blood per rectum): (3) Acute on chronic anemia: PLAN: Plan 88yo with lower gi bleed: Differential diagnosis for his GI bleed would be lower GI bleed secondary to diverticular bleed, ischemic colitis, hemorrhoidal disease, angiodysplasia, lesslikely neoplasia or upper GI with rapid transit. We will perform colonoscopy tomorrow to evaluate his lower GI tract. If there is any blood in the terminal ileum then we may need to evaluate his upper GI tract also to see if there is any abnormal lesions in his stomach or proximal small bowel. If that is negative then he may need a capsule study. Charges/Coding Visit Charges Inpatient E&M: 79391 Init Hosp L3 09/19/23 6239 <Electronically signed by Lionel Friend DO> Cosigner Signature (if applicable): CC: Dr. Shoshana Ulrich MD~ Signed [facility] Work Phone: 1(167) 568-554405-06-2024 History and physical note Author Rosemary Fernandez [facility] September 19, 2023 5:33pm Note Date/Time September 19, 2023 12:19p m [facility] Medical Records Department [address] [place] [address] H&P Exam - Hospitalist 09/19/23 1217 MR#: [id number] Acct: [id number] Name: DORIAN CRAMER Rep #:[id number] : 1935 88 From: Rosemary Fernandez DO PCP: Dr. Shoshana Ulrich MD Status:ADM IN Location: [facility] [place] [id number] HPI - General General Date of Admission: 09/19/23 Date of Service: 09/19/23 Chief Complaint: BRBPR HPI Narrative DORIAN CRAMER, is a 88 M who presented to the emergency department [facility] on 09/19/2023 with bright red blood per rectum. He stated it started on the day of presentation. He reported when he woke up this morning hefelt okay but had some pressure in his lower abdomen just below the umbilicus into the left. He stated after that he had a couple bouts of loose stool with blood noted that relieved the pressure. He denied any lightheadedness, dizziness, nausea, or vomiting. He does of diverticulosis and diverticulitis and remote history of GI bleeding but does not think he was admitted to the hospital at that time. He is not currently on anticoagulation but did complain of a headache last evening at which time he took 2 aspirin. Headache is resolved at this time. He indicated if he was not having blood in his stool he would not be in the emergency department. Vital signs on presentation showed temperature 96.9, heart rate was 90, blood pressure was 153/83, respiratory is 18 oxygen saturations are 99% on room air. CBC showed an anemia that is slightly worse than baseline at 10.9. Baseline appears to be between 11 and 12. Platelet count was normal and he had no leukocytosis. Coags were normal. His chemistry panel was overtly unremarkable with a chronic stable elevated BUN and creatinine and a normal ratio. Serum creatinine on presentation was 1.25 (baseline 1-1.3). His glucose was 109. LFTs were unremarkable. CT abdomen pelvis was done and showed diffuse diverticulosis in the sigmoid colon, stable adenoma of the right adrenal gland, stable bilateral renal cysts and round atelectasis in the right lower lobe. Emergency department discussed the case with gastroenterology and they recommended admission given his ongoing bleeding and diarrhea. Enteric panel and C. difficile were ordered by the emergency department and found to be negative. 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 Prostate disease Restless legs Shortness of breath on exertion Shoulder pain Smoker Wears glasses Wears hearing aid in both ears Home Medications albuterol sulfate 90 mcg/actuation aerosol inhaler 1 puff inhalation Q4H PRN sob/wheezing 09/08/21 [History Last Taken Unknown] finasteride 5 mg tablet 5 mg PO DAILY 09/08/21 [History Last Taken Unknown] amlodipine 5 mg tablet 5 mg PO DAILY 07/02/22 [History Last Taken 09/18/23] gabapentin 100 mg capsule 100 mg PO QHS 10/27/22 [History Last Taken 09/18/23] oxycodone 5 mg capsule 5 mg PO Q6H PRN pain 3 days #10 caps 11/03/22 [Rx Last Taken 09/18/23] artifi.tears(hypromellose)(PF) 1.7 % eye drops with applicator 1 drp EACH EYE DAILY PRN dry eyes 09/19/23 [History Last Taken Unknown] budesonide 160 mcg-glycopyr 9 mcg-formot 4.8 mcg/actuation HFA inhaler (Breztri Aerosphere) 2 inh inhalation BID 09/19/23 [History Last Taken 09/18/23] nystatin 100,000 unit/gram topical cream 1 applic topical 4X/DAY PRN skin irritation 09/19/23 [History Last Taken Unknown] oxybutynin chloride 10 mg tablet,extended release 24 hr 10 mg PO DAILY 09/19/23 [History Last Taken Unknown] Allergy/AdvReac Type Severity Reaction Status Date / Time ibuprofen [From Motrin] Allergy Swelling Verified 09/19/23 08:25 no significant family history Surgical History History of cystoscopy History of esophagogastroduodenoscopy (EGD) History of hand surgery History of parotidectomy History of varicose vein stripping Hx of basal cell carcinoma excision Hx of decompressive lumbar laminectomy Hx of finger joint replacement Hx of myringotomy S/P insertion of spinal cord stimulator Social History (Updated 09/19/23 @ 17:[address] Rosemary Fernandez DO) household members: spouse housing: house Smoking Status: Current every day smoker tobacco type: cigarettes Smoking packsper day: 0.5 Smoking cigarettes per day: 10.0 alcohol intake: former substance use type: does not use ROS Constitutional Constitutional: Denies anorexia, change in weight, chills, fatigue, fever(s), malaise, night sweats, weakness or other Eyes Eyes: Denies blurry vision, change in eye color, change in vision, discharge from eye(s), double vision, erythema, eye pain, loss of vision or other ENT HEENT: Reports abnormal hearing; Denies dysphagia, ear pain, epistaxis, headache(s), hearing loss, nasal congestion, nasal discharge, post nasal drip, sinus pressure, sore throat or other Cardiovascular Cardiovascular: Denies chest pain, claudication, dyspnea on exertion, edema, lightheadedness, orthopnea, palpitations, paroxysmal nocturnal dyspnea, rapid heart rate, syncope or other Respiratory/Chest Respiratory/Chest: Denies cough, dyspnea, excessive phlegm production, hemoptysis, productive cough, shortness of breath at rest, shortness of breath with exertion, wheezing or other Gastrointestinal Gastrointestinal: Reports abdominal pain, diarrhea and hematochezia; Denies coffee ground emesis, constipation, dyspepsia, hematemesis, loose stools, melena, nausea, vomiting or other Genitourinary Genitourinary: Reports difficulty urinating, nocturia, urinary frequency and urinary hesitancy; Denies burning urination, dysuria, hematuria, urinary incontinence, urinary urgency or other Musculoskeletal Musculoskeletal: Reports back pain, joint pain and joint stiffness; Denies arthralgias, joint swelling, myalgias, neck pain or other Neurologic Neurologic: Denies abnormal gait, abnormal speech, confusion, disequilibrium, dizziness, focal weakness, headache(s), numbness, paresthesias, seizure-like activity, seizures, syncope, tingling, tremor(s) or other Psychiatric Psychiatric: Denies anxiety, depression, homicidal ideation, suicidal ideation or other Endocrine Endocrinology: Denies change in body appearance, cold intolerance, excessive sweating, heat intolerance, polydipsia, polyuria or other Hematologic/Lymphatic Hematologic/Lymphatic: Denies anemia, easy bleeding, easy bruising, lymphadenopathy or other Allergic/Immunologic Allergic/Immunologic: Denies rhinitis, hives, eczemia, asthma or other Vital Signs Vital Signs Vital Signs: 09/19/23 08:25 09/19/23 10:24 09/19/23 12:00 Temperature 96.9 F L Temperature Source Temporal Pulse Rate 90 68 87 Respiratory Rate 18 18 18 Blood Pressure 153/83 H 133/60 H 119/71 Blood Pressure Mean 106 84 87 Pulse Ox 99 97 97 Oxygen Delivery Method Room Air Room Air Room Air Weight Weight: 65.771 kg Body Mass Index (BMI) 22.0 Physical Exam Const alert, oriented x3, no apparent distress, average body habitus and well nourished Constitutional Narrative: Very pleasant, elderly, white male, sitting up in bed watching television, appears comfortable and nontoxic General Appearance: cooperative HEENT normocephalic, head/scalp atraumatic and moist oral mucous membranes HEENT Narrative: Mild to moderate hearing loss, dentition is poor, mild putty is 2-3, no thrush Eyes PERRL, EOMs intact bilaterally and conjunctivae normal Eyes Narrative: No scleral icterus Neck no lymphadenopathy and supple Neck Narrative: Trachea midline, no thyroid enlargement Resp normal respiratory effort, no retractions, no use of accessory muscles and No clear to auscultation bilaterally Resp Narrative: Diffusely diminished with few scattered end expiratory wheezes that clear with cough Auscultation: wheezes; Negative for rales or rhonchi Cardio regular rate, regular rhythm, S1 normal heart sound, S2 normal heart sound, no murmurs, no rub, no gallops and no clicks GI normal to inspection, nondistended, normoactive bowel sounds, soft to palpation and non-tender Extremity no clubbing, cyanosis or edema Extremity Narrative: Pedal pulses are 2+ Skin skin turgor normal, no jaundice, no petechiae and no mottling Skin Narrative: Age and sun exposure related changes noted but no wounds or rashes Neuro oriented x3, CN's II-XII intact bilaterally, moves all extremities and no focal motor deficits Speech: speech normal Psych affect normal Psych Narrative: Interacts appropriately, eye contact is good, very pleasant Results Lab / Micro Data 09/19/23 14:04 09/19/23 08:45 Labs: Laboratory Results - last 24 hr 09/19/23 08:45: WBC 6.8, RBC 3.40 L, Hgb 10.9 L, Hct 34.0 L, MCV 100.0 H, MCH 32.1 H, MCHC 32.1, RDW Std Deviation 55.0 H, RDW Coeff of Beth 14.9 H, Plt Count 193, MPV 10.6, Immature Gran % (Auto) 0.700, Neut % (Auto) 68.4, Lymph % (Auto) 15.3 L, Gaines % (Auto) 6.9, Eos % (Auto) 8.1 H, Baso % (Auto) 0.6, Absolute Neuts(auto) 4.6, Absolute Lymphs (auto) 1.04, Nucleated RBC % 0, PT 13.8, INR 1.1, Sodium 139, Potassium 4.5, Chloride 111 H, Carbon Dioxide 26.0, Anion Gap 2 L, BUN 30 H, Creatinine 1.25, Estim Creat Clear Calc 39.46, Est GFR (MDRD) Af Amer 70, Est GFR (MDRD) Non-Af 58 L, BUN/Creatinine Ratio 24.0 H, Glucose 109 H, Calcium 8.8, Total Bilirubin 0.30, AST 15, ALT 18, Alkaline Phosphatase 62, Total Protein 6.3 L, Albumin 3.2, Globulin 3.1, Albumin/Globulin Ratio 1.0, Blood Type A POSITIVE, Antibody Screen NEGATIVE Imaging Radiology Impression Abdomen/Pelvis CT 09/19/23 08:50 IMPRESSION: Diffuse diverticulosis of the sigmoid colon. Stable adenoma in the right adrenal gland. Stable bilateral renal cysts. Findings suggestive of a round atelectasis in the right lower lobe. Electronically Signed: Felix Dykes MD at 10:16 EDT , Assessment & Plan Assessment/Plan (1) GIB (gastrointestinal bleeding): (2) BRBPR (bright red blood per rectum): (3) Acute on chronic anemia: PLAN: Plan Lower GI bleed with bright red blood per rectum -Highly suspect lower GI bleed -Clear liquid diet -Start bowel prep later today -Will start LR at 1800 to avoid dehydration with bowel prep -Will cycle hemoglobin every 6 hours -Transfuse for precipitous drop or hemoglobin less than 7 -Low suspicion of upper GI bleed with normal BUN to serum creatinine ratio -Patient has CT of the abdomen pelvis done which showed significant diverticulosis with no acute abnormality identified -GI consulted-discussed with Dr. Lee-plan is for colonoscopy tomorrow Diarrhea -Suspect related to bleeding -Enteric panel and C. 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 Urinary retention -Continue home oxybutynin COPD -Continue home inhalers -As needed albuterol Chronic pain -Continue home oxycodone -continue home gabapentin JASMIN -Continue home CPAP Tobacco abuse -Patient continues to smoke about 10 cigarettes daily -denies need for nicotine replacement therapy -Encouraged cessation -Patient states he plans on quitting on October 11, 2023 per discussion with his prior to admission DVT prophylaxis -No chemoprophylaxis due to GI bleed -SCDs CODE STATUS -DNR CCA but okay for short-term intubation -I did discuss with patient that his CODE STATUS would we suspended during his procedures and that in the event of a cardiac or respiratory arrest he would be full code at that time until after he was stabilized following endoscopy. He voiced interest standing and is agreeable with proceeding with endoscopy. Charges/Coding Visit Charges Inpatient E&M: 50259 Init Hosp L2 09/19/23 6089 <Electronically signed by Rosemary Fernandez DO> Cosigner Signature (if applicable): CC: Dr. Shoshana Ulrich MD; Dr. Rosemary Fernandez DO~ Signed [facility] Work Phone: 1(104) 483-416005-06-2024 Discharge summary Author Russel Pal [facility] September 19, 2023 12:44pm Note Date/Time September 19, 2023 9:03am [facility] Medical Records Department [address] [place] [address] Emergency Department Summary 09/19/23 MR#: [id number] Acct: [id number] Name: DORIAN CRAMER Rep #:[id number] : 1935 88 From: Russel Pal DO PCP: Dr. Shoshana Ulrich MD Status:ADM IN Location: [facility] [place] [id number] HPI HPI - GI History of Present Illness Chief Complaint: GI Bleed Narrative Narrative: 88-year-old male presenting with bright red bleeding per rectum. He has a history of hemorrhoids but states they are not bleeding. He is not on any bloodthinners. He states he has a history of GI bleed in the past a couple of years ago but states he does not think he was admitted to the hospital. Patient states that last night he had a bit of a headache and took a couple of aspirin. This morning he states he does not feel too unwell but noticed he is having somepressure in his lower abdomen and points to just below the umbilicus and to the left. Patient states that he had a couple of hours of blood in his stool with the pressure. The pressure was intermittent. He is not lightheaded, dizzy, nauseous. Denies surgical history in the abdomen. Denies urinary complaints. 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 Prostate disease Restless legs Shortness of breath on exertion Shoulder pain Smoker Wears glasses Wears hearing aid in both ears Home Medications albuterol sulfate 90 mcg/actuation aerosol inhaler 1 puff inhalation Q4H PRN sob/wheezing 09/08/21 [History Last Taken Unknown] finasteride 5 mg tablet 5 mg PO DAILY 09/08/21 [History Last Taken Unknown] amlodipine 5 mg tablet 5 mg PO DAILY 07/02/22 [History Last Taken 09/18/23] gabapentin 100 mg capsule 100 mg PO QHS 10/27/22 [History Last Taken 09/18/23] oxycodone 5 mg capsule 5 mg PO Q6H PRN pain 3 days #10 caps 11/03/22 [Rx Last Taken 09/18/23] artifi.tears(hypromellose)(PF) 1.7 % eye drops with applicator 1 drp EACH EYE DAILY PRN dry eyes 09/19/23 [History Last Taken Unknown] budesonide 160 mcg-glycopyr 9 mcg-formot 4.8 mcg/actuation HFA inhaler (Breztri Aerosphere) 2 inh inhalation BID 09/19/23 [History Last Taken 09/18/23] nystatin 100,000 unit/gram topical cream 1 applic topical 4X/DAY PRN skin irritation 09/19/23 [History Last Taken Unknown] oxybutynin chloride 10 mg tablet,extended release 24 hr 10 mg PO DAILY 09/19/23 [History Last Taken Unknown] Allergy/AdvReac Type Severity Reaction Status Date / Time ibuprofen [From Motrin] Allergy Swelling Verified 09/19/23 08:25 Surgical History History of cystoscopy History of esophagogastroduodenoscopy (EGD) History of hand surgery History of parotidectomy History of varicose vein stripping Hx of basal cell carcinoma excision Hx of decompressive lumbar laminectomy Hx of finger joint replacement Hx of myringotomy S/P insertion of spinal cord stimulator Social History household members: spouse Smoking Status: Current every day smoker tobacco type: cigarettes alcohol intake: current alcohol intake frequency: 0-2 drinks per day Alcohol type: hard liquor ROS ROS ED Constitutional Constitutional ED: Denies chills, fever(s) or sweats Eyes Eyes: Denies blurry vision or change in vision ENT ENT ED: Denies ear pain or sore throat Cardiovascular Cardiovascular: Denies chest pain, palpitations or racing heartbeat Respiratory/Chest Respiratory/Chest: Denies cough, dyspnea or sputum Gastrointestinal Gastrointestinal: Reports abdominal pain, diarrhea and other Details: Bright redbleeding per rectum ; Denies constipation, nausea or vomiting Genitourinary Genitourinary ED: Denies dysuria, hematuria or urinary frequency Musculoskeletal Musculoskeletal: Denies arthralgias, myalgias or neck pain Integumentary Denies abscess, Abrasions or rash Neurologic Neurologic: Denies headache(s), paresthesias or weakness Psychiatric Psychiatric: Denies anxiety, depression, suicidal ideation or suicidal thoughts Endocrine Endocrinology: Denies polydipsia or polyuria EXAM Physical Exam Const Vital Signs: 09/19/23 08:25 09/19/23 10:24 09/19/23 12:00 Temperature 96.9 F L Temperature Source Temporal Pulse Rate 90 68 87 Respiratory Rate 18 18 18 Blood Pressure 153/83 H 133/60 H 119/71 Blood Pressure Mean 106 84 87 Pulse Ox 99 97 97 Oxygen Delivery Method Room Air Room Air Room Air Positive well nourished General Appearance ED: NAD HEENT Reports moist mucous membranes normocephalic and atraumatic Eyes PERRL and EOMs intact bilaterally General Eye ED: Negative for pale conjunctiva Resp normal respiratory effort Auscultation: Negative for rales or rhonchi Cardio regular rate and regular rhythm GI non-tender, non-distended and no masses GI Narrative: Rectal exam: Bright red bleeding around the rectal region. Hemorrhoids without thrombosis or bleeding. Neuro CN's II-XII intact bilaterally and moves all extremities Sensorium / Orientation: alert Motor Exam: strength 5/5 throughout Psych mental status grossly normal Skin no wounds MDM MDM MDM Narrative Medical decision making narrative: Patient presenting with lower abdominal pressure and rectal bleeding per rectum. Differential includes colitis, diverticulitis, enteritis. Patient is not on any anticoagulation. He does not have any pain on examination and his vital signs are stable. CBC will be obtained to assess for blood cell count, hemoglobin, platelets CMP to assess liver function, renal function electrolytes,glucose. T/INR to assess for coagulopathy. Patient typed and screened. Will obtain a CT of the abdomen pelvis IV contrast. Review of the medical record shows the patient has a history of diverticulitis with bleeding associated. CBCshows normal white blood cell count of 6.8. Hemoglobin 10.9. This is only slightly lower than her previous hemoglobin which is 11.4. Renal function and electrolytes normal. LFTs are normal. PT/INR normal. CT of the abdomen pelviswith no evidence of diverticulitis. Bleeding is likely due to this is likely a diverticular bleed. I discussed with Dr. Lee who is amenable to keeping the here at [facility]. Admitted to hospitalist. Patient did have another bloody bowel movement in the ER. His stool sample was sent for testing. This will be followed up in the office.. Impression 1. Abdominal pain 2. Lower GI Lab Data Attestation: I reviewed the patient's lab results. Labs: Laboratory Results - last 24 hr 09/19/23 08:45 WBC 6.8 RBC 3.40 L Hgb 10.9 L Hct 34.0 L MCV 100.0 H MCH 32.1 H MCHC 32.1 RDW Std Deviation 55.0 H RDW Coeff of Beth 14.9 H Plt Count 193 MPV 10.6 Immature Gran % (Auto) 0.700 Neut % (Auto) 68.4 Lymph % (Auto) 15.3 L Gaines % (Auto) 6.9 Eos % (Auto) 8.1 H Baso % (Auto) 0.6 Absolute Neuts (auto) 4.6 Absolute Lymphs (auto) 1.04 Nucleated RBC % 0 PT 13.8 INR 1.1 Sodium 139 Potassium 4.5 Chloride 111 H Carbon Dioxide 26.0 Anion Gap 2 L BUN 30 H Creatinine 1.25 Estim Creat Clear Calc 39.46 Est GFR (MDRD) Af Amer 70 Est GFR (MDRD) Non-Af 58 L BUN/Creatinine Ratio 24.0 H Glucose 109 H Calcium 8.8 Total Bilirubin 0.30 AST 15 ALT 18 Alkaline Phosphatase 62 Total Protein 6.3 L Albumin 3.2 Globulin 3.1 Albumin/Globulin Ratio 1.0 Blood Type A POSITIVE Antibody Screen NEGATIVE Radiography Diagnostic Testing: Clinical Impression(s) from Imaging Studies Abdomen/Pelvis CT 09/19/23 08:50 IMPRESSION: Diffuse diverticulosis of the sigmoid colon. Stable adenoma in the right adrenal gland. Stable bilateral renal cysts. Findings suggestive of a round atelectasis in the right lower lobe. Electronically Signed: Felix Dykes MD at 10:16 EDT , Discharge Plan Triage Chief Complaint: GI Bleed ED Provider: Russel Pal Dx/Rx/DC Orders Primary Care Provider: Shoshana Ulrich What to do if you have Problems For any increased pain, shortness of breath, bleeding, nausea or vomiting, chestpain, or any unexpected problems, contact your Primary Care Provider. Call [facility] ([phone]) or report to the closest Emergency Room. Call 911 if necessary. 09/19/23 1244 <Electronically signed by Russel Pal DO> Cosigner Signature (if applicable): CC: Dr. Shoshana Ulrich MD ~ Signed [facility] Work Phone: 1(832) 618-751305-06-2024 Discharge summary Author Russel Pal [facility] September 19, 2023 12:44pm Note Date/Time September 19, 2023 9:03am [facility] Medical Records Department [address] [place] [address] Emergency Department Summary 09/19/23 MR#: [id number] Acct: [id number] Name: DORIAN CRAMER Rep #:[id number] : 1935 88 From: Russel Pal DO PCP: Dr. Shoshana Ulrich MD Status:ADM IN Location: [facility] DH131-5 HPI HPI - GI History of Present Illness Chief Complaint: GI Bleed Narrative Narrative: 88-year-old male presenting with bright red bleeding per rectum. He has a history of hemorrhoids but states they are not bleeding. He is not on any bloodthinners. He states he has a history of GI bleed in the past a couple of years ago but states he does not think he was admitted to the hospital. Patient states that last night he had a bit of a headache and took a couple of aspirin. This morning he states he does not feel too unwell but noticed he is having somepressure in his lower abdomen and points to just below the umbilicus and to the left. Patient states that he had a couple of hours of blood in his stool with the pressure. The pressure was intermittent. He is not lightheaded, dizzy, nauseous. Denies surgical history in the abdomen. Denies urinary complaints. 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 Prostate disease Restless legs Shortness of breath on exertion Shoulder pain Smoker Wears glasses Wears hearing aid in both ears Home Medications albuterol sulfate 90 mcg/actuation aerosol inhaler 1 puff inhalation Q4H PRN sob/wheezing 09/08/21 [History Last Taken Unknown] finasteride 5 mg tablet 5 mg PO DAILY 09/08/21 [History Last Taken Unknown] amlodipine 5 mg tablet 5 mg PO DAILY 07/02/22 [History Last Taken 09/18/23] gabapentin 100 mg capsule 100 mg PO QHS 10/27/22 [History Last Taken 09/18/23] oxycodone 5 mg capsule 5 mg PO Q6H PRN pain 3 days #10 caps 11/03/22 [Rx Last Taken 09/18/23] artifi.tears(hypromellose)(PF) 1.7 % eye drops with applicator 1 drp EACH EYE DAILY PRN dry eyes 09/19/23 [History Last Taken Unknown] budesonide 160 mcg-glycopyr 9 mcg-formot 4.8 mcg/actuation HFA inhaler (Breztri Aerosphere) 2 inh inhalation BID 09/19/23 [History Last Taken 09/18/23] nystatin 100,000 unit/gram topical cream 1 applic topical 4X/DAY PRN skin irritation 09/19/23 [History Last Taken Unknown] oxybutynin chloride 10 mg tablet,extended release 24 hr 10 mg PO DAILY 09/19/23 [History Last Taken Unknown] Allergy/AdvReac Type Severity Reaction Status Date / Time ibuprofen [From Motrin] Allergy Swelling Verified 09/19/23 08:25 Surgical History History of cystoscopy History of esophagogastroduodenoscopy (EGD) History of hand surgery History of parotidectomy History of varicose vein stripping Hx of basal cell carcinoma excision Hx of decompressive lumbar laminectomy Hx of finger joint replacement Hx of myringotomy S/P insertion of spinal cord stimulator Social History household members: spouse Smoking Status: Current every day smoker tobacco type: cigarettes alcohol intake: current alcohol intake frequency: 0-2 drinks per day Alcohol type: hard liquor ROS ROS ED Constitutional Constitutional ED: Denies chills, fever(s) or sweats Eyes Eyes: Denies blurry vision or change in vision ENT ENT ED: Denies ear pain or sore throat Cardiovascular Cardiovascular: Denies chest pain, palpitations or racing heartbeat Respiratory/Chest Respiratory/Chest: Denies cough, dyspnea or sputum Gastrointestinal Gastrointestinal: Reports abdominal pain, diarrhea and other Details: Bright redbleeding per rectum ; Denies constipation, nausea or vomiting Genitourinary Genitourinary ED: Denies dysuria, hematuria or urinary frequency Musculoskeletal Musculoskeletal: Denies arthralgias, myalgias or neck pain Integumentary Denies abscess, Abrasions or rash Neurologic Neurologic: Denies headache(s), paresthesias or weakness Psychiatric Psychiatric: Denies anxiety, depression, suicidal ideation or suicidal thoughts Endocrine Endocrinology: Denies polydipsia or polyuria EXAM Physical Exam Const Vital Signs: 09/19/23 08:25 09/19/23 10:24 09/19/23 12:00 Temperature 96.9 F L Temperature Source Temporal Pulse Rate 90 68 87 Respiratory Rate 18 18 18 Blood Pressure 153/83 H 133/60 H 119/71 Blood Pressure Mean 106 84 87 Pulse Ox 99 97 97 Oxygen Delivery Method Room Air Room Air Room Air Positive well nourished General Appearance ED: NAD HEENT Reports moist mucous membranes normocephalic and atraumatic Eyes PERRL and EOMs intact bilaterally General Eye ED: Negative for pale conjunctiva Resp normal respiratory effort Auscultation: Negative for rales or rhonchi Cardio regular rate and regular rhythm GI non-tender, non-distended and no masses GI Narrative: Rectal exam: Bright red bleeding around the rectal region. Hemorrhoids without thrombosis or bleeding. Neuro CN's II-XII intact bilaterally and moves all extremities Sensorium / Orientation: alert Motor Exam: strength 5/5 throughout Psych mental status grossly normal Skin no wounds MDM MDM MDM Narrative Medical decision making narrative: Patient presenting with lower abdominal pressure and rectal bleeding per rectum. Differential includes colitis, diverticulitis, enteritis. Patient is not on any anticoagulation. He does not have any pain on examination and his vital signs are stable. CBC will be obtained to assess for blood cell count, hemoglobin, platelets CMP to assess liver function, renal function electrolytes,glucose. T/INR to assess for coagulopathy. Patient typed and screened. Will obtain a CT of the abdomen pelvis IV contrast. Review of the medical record shows the patient has a history of diverticulitis with bleeding associated. CBCshows normal white blood cell count of 6.8. Hemoglobin 10.9. This is only slightly lower than her previous hemoglobin which is 11.4. Renal function and electrolytes normal. LFTs are normal. PT/INR normal. CT of the abdomen pelviswith no evidence of diverticulitis. Bleeding is likely due to this is likely a diverticular bleed. I discussed with Dr. Lee who is amenable to keeping the here at [facility]. Admitted to hospitalist. Patient did have another bloody bowel movement in the ER. His stool sample was sent for testing. This will be followed up in the office.. Impression 1. Abdominal pain 2. Lower GI Lab Data Attestation: I reviewed the patient's lab results. Labs: Laboratory Results - last 24 hr 09/19/23 08:45 WBC 6.8 RBC 3.40 L Hgb 10.9 L Hct 34.0 L MCV 100.0 H MCH 32.1 H MCHC 32.1 RDW Std Deviation 55.0 H RDW Coeff of Beth 14.9 H Plt Count 193 MPV 10.6 Immature Gran % (Auto) 0.700 Neut % (Auto) 68.4 Lymph % (Auto) 15.3 L Gaines % (Auto) 6.9 Eos % (Auto) 8.1 H Baso % (Auto) 0.6 Absolute Neuts (auto) 4.6 Absolute Lymphs (auto) 1.04 Nucleated RBC % 0 PT 13.8 INR 1.1 Sodium 139 Potassium 4.5 Chloride 111 H Carbon Dioxide 26.0 Anion Gap 2 L BUN 30 H Creatinine 1.25 Estim Creat Clear Calc 39.46 Est GFR (MDRD) Af Amer 70 Est GFR (MDRD) Non-Af 58 L BUN/Creatinine Ratio 24.0 H Glucose 109 H Calcium 8.8 Total Bilirubin 0.30 AST 15 ALT 18 Alkaline Phosphatase 62 Total Protein 6.3 L Albumin 3.2 Globulin 3.1 Albumin/Globulin Ratio 1.0 Blood Type A POSITIVE Antibody Screen NEGATIVE Radiography Diagnostic Testing: Clinical Impression(s) from Imaging Studies Abdomen/Pelvis CT 09/19/23 08:50 IMPRESSION: Diffuse diverticulosis of the sigmoid colon. Stable adenoma in the right adrenal gland. Stable bilateral renal cysts. Findings suggestive of a round atelectasis in the right lower lobe. Electronically Signed: Felix Dykes MD at 10:16 EDT , Discharge Plan Triage Chief Complaint: GI Bleed ED Provider: Russel Pal Dx/Rx/DC Orders Primary Care Provider: Shoshana Ulrich What to do if you have Problems For any increased pain, shortness of breath, bleeding, nausea or vomiting, chestpain, or any unexpected problems, contact your Primary Care Provider. Call [facility] ([phone]) or report to the closest Emergency Room. Call 911 if necessary. 09/19/23 1244 <Electronically signed by Russel Pal DO> Cosigner Signature (if applicable): CC: Dr. Shoshana Ulrich MD ~ Signed [facility] Work Phone: 1(212) 994-846704-23-2024 Discharge summary Author Pola Bustamante [facility] September 06, 2023 2:51pm Note Date/Time September 05, 2023 11: 51am [facility] [address] [place] [address]. [address] [place] [address] / REHABILITATION SERVICES DISCHARGE SUMMARY MR#: [id number] Acct: [id number] Name: DORIAN CRAMER Rep #: [id number] : 1935 88 From: Cert. KATJA Jansen, [facility] Referring DrMarika: Dr. Shoshana Ulrich MD Status: REG RCR Insurance: [employer]URANCE Discharge Summary D/C summary: It has been my pleasure to treat DORIAN CRAMER referred by Dr. Shoshana Ulrich MD, with the diagnosis of STRAIN OF MUSCLE ,FASCIA NECK ,STARIN OF MUSCLE NECK WALL OF THORACIC for a total of 8 visit(s). Discharge Date: 09/05/23 Please see the following information for a summary of their discharge status. Subjective Subjective: Turn neck to drive Pain Bilateral Neck: Pain Intensity (Out of 10): 0 Bilateral Shoulder: Pain Intensity (Out of 10): 0 Overall Improvement % Improvement: 90 Objective Objective/Function: POSTURE: mod thoracic kyphosis ,head forward flexed ,hips/knees flexed NEURO: denies paresthesia/tingling ,reflexes C5-6-7 / PALPATION: tender UT/levator ,paraspinals ,occiput GAIT: ambulates with cane AROM: WFL shoulders MMT: BUE grossly 4/5 ,shoulders 4-/5 CERVICAL ROM: flexion min loss ,extension MIN/MOD loss pain ,lateral flexion/rotation MIN/mod loss right ,MIN/MOD loss left Goals Goal 1:: Patient to be I with HEP for neck Goal Progress: Goal Met Goal 2:: Patient to demonstrate 40-50% improvement with less pain and improved function Goal 3:: Patient to improve cervical ROM for function of recovery to drive car and ADLS Goal Progress: Goal Met Goal 4:: Patient to improve neck oswestry score by 5 points to improve QOL and function Goal Progress: Goal Met Plan Plan: D/C To HEP D/C Information Discharge Comments: HEP d/c sentence: If there are questions or concerns regarding this patient's physical therapy, please feel free to call me at [phone]. Thank you for the referral of thispatient. Sincerely, Pola Bustamante, PT, Cert MDT, OCS Balance/Gait/Functional tests Balance/Special Test Scores Oswestry Neck Score: 3 Improvement % Improvement: 90 <Electronically signed by Pola Bustamante PT Cert. KATJA, OCS> 09/06/23 2231 CC: Dr. Shoshana Ulrich MD ~ TANJA Signed [facility] Work Phone: 1(441) 243-930406-21-[address] Foster [facility] November 03, 2022 9:27am Note Date/Time November 03, 2022 9:27 am [facility] Medical Records Department [address] [place] [address] Instructions for Home/Discharge Instructions 11/03/22 0926 MR#: [id number] Acct: [id number] Name: DORIAN CRAMER Rep #:[id number] : 1935 87 From: Sam Foster MD PCP: Dr. Shoshana Ulrich MD Status:REG [facility] Discharge Instructions Diet Discharge Diet: No restrictions Activity Discharge Activity: Return to Normal Activity Dressing / Incision Call your doctor if you observe: Fever of 101 or Higher Follow Up Care Please Follow Up With: Sam Foster MD When: 2 -3 weeks. Test Results: Test results from this visit will be discussed in further detail at your follow- up appointment, if applicable. Discharge Plan Admission Primary Reason for Your Visit: Turp Attending Provider: Sam Foster Primary Care Provider: Shoshana Ulrich Consulting Providers: Jesus Mendoza Discharge Orders/Prescriptions Prescriptions: New oxycodone 5 mg capsule 5 mg PO Q6H PRN (Reason: pain) 3 Days Qty: 10 0RF cephalexin 500 mg capsule 500 mg PO BID Qty: 10 0RF Continued amlodipine 5 mg tablet 5 mg PO DAILY tramadol 50 mg tablet 50 mg PO Q12H PRN (Reason: Pain) tamsulosin 0.4 mg capsule 0.4 mg PO QHS Label Comments: take 1 capsule by mouth at bedtime albuterol sulfate 90 mcg/actuation HFA aerosol inhaler 1 puff INHALATION Q4H PRN PRN (Reason: sob/wheezing) Label Comments: inhale 2 puffs by mouth every 4 hours if needed for wheezing finasteride 5 mg tablet 5 mg PO DAILY Label Comments: take 1 tablet by mouth once daily Trelegy Ellipta 100-62.5-25 mcg blister with device 1 inh INHALATION DAILY Label Comments: inhale 1 puff by mouth and INTO THE LUNGS once daily gabapentin 100 mg capsule 100 mg PO QHS Referrals / Follow Up: Shoshana Ulrich MD [Primary Care Provider] - Sam Foster MD [Med Staff - Active Staff] - Disposition Disposition (needs filled in before D/C Order can be placed): Home, Self Care 11/03/22926<Electronically signed by Sam Foster MD>Sam Foster MD CC: Dr. Jesus Mendoza MD; Dr. Shoshana Ulrich MD ~ Signed [facility] Work Phone: 1(771) 672-545406-21-2023 History and physical note Author Dr. Foster [facility] November 03, 2022 9:26am Note Date/Time November 03, 2022 9:26 am [facility] Medical Records Department [address] [facility] [place] [address] History & Physical Exam 11/03/22925 MR#: [id number] Acct: [id number] Name: DORIAN CRAMER Rep #:[id number] : 1935 87 From: Sam Foster MD PCP: Dr. Shoshana Ulrich MD Status:[facility] Location: [place] [address] HPI - General General Date of Service: 11/03/22 Chief Complaint: BPH with obstruction HPI Narrative DORIAN CRAMER, is a 87 M who presents for transurethral resection of the prostate and removal of foreign object UroLift clips. 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 100 mcg-umeclid 62.5 mcg-vilant 25 mcg inhalat.powder (Trelegy Ellipta) 1 inh inhalation DAILY 09/08/21 [History Last Taken Unknown] tamsulosin 0.4 mg capsule 0.4 mg PO QHS 09/08/21 [History Last Taken Unknown] amlodipine 5 mg tablet 5 mg PO DAILY 07/02/22 [History Last Taken Unknown] tramadol 50 mg tablet 50 mg PO Q12H PRN Pain 07/02/22 [History Last Taken Unknown] gabapentin 100 mg capsule 100 mg PO QHS 10/27/22 [History Last Taken Unknown] cephalexin 500 mg capsule 500 mg PO BID #10 caps 11/03/22 [Rx Last Taken Unknown] oxycodone 5 mg capsule 5 mg PO Q6H PRN pain 3 days #10 caps 11/03/22 [Rx Last Taken Unknown] Allergy/AdvReac Type Severity Reaction Status Date / Time ibuprofen [From Motrin] Allergy Swelling Verified 11/03/22 09:13 Surgical History History of cystoscopy History of esophagogastroduodenoscopy (EGD) History of hand surgery History of parotidectomy History of varicose vein stripping Hx of basal cell carcinoma excision Hx of decompressive lumbar laminectomy Hx of finger joint replacement Hx of myringotomy S/P insertion of spinal cord stimulator Social History (System 10/27/22 @ 09:25 by Zuleyka Butt) household members: spouse Smoking Status: Current every day smoker tobacco type: cigarettes alcohol intake: current alcohol intake frequency: 0-2 drinks per day Alcohol type: hard liquor Vital Signs Vital Signs Vital Signs: 11/03/22 09:18 11/03/22 09:18 Temperature 97.5 F L Temperature Source Temporal Pulse Rate 85 Respiratory Rate 18 Respiratory Pattern Normal Blood Pressure 141/83 H Blood Pressure Mean 102 Blood Pressure Source Monitor Blood Pressure Position Semi-Fowlers Blood Pressure Location Right Arm Pulse Ox 93 Oxygen Delivery Method Room Air Weight Weight: 68.946 kg Body Mass Index (BMI) 23.1 Results Lab / Micro Data Result Diagrams: 10/28/22 13:23 10/28/22 13:23 11/03/2226 <Electronically signed by Sam Foster MD> Cosigner Signature (if applicable): CC: Dr. Shoshana Ulrich MD; Dr. Sam Foster MD~ Signed [facility] Work Phone: [phone]) 296-641306-21-2023 Procedure [facility] 09-11-2021 NoteORIGINAL PROCEDURE: 09/11/2021 11:12 am 1. 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 Campbell were removed. Sterile dressing placed. Post procedure [...] Sign Date: 09/11/2021 1:00:04 PM Ordering Provider: [facility] (ID)Consult note Author Martita Jacobs [facility] September 21, 2023 1:32pm Note Date/Time September 21, 2023 1:32pm [facility] Medical Records Department [address] [place] [address] Counseling Note - Pharmacy 09/21/23 1332 MR#: [id number] Acct: [id number] Name: DORIAN CRAMER Rep #:[id number] : 1935 88 From: Martita Jacobs PCP: Dr. Shoshana Ulrich MD Status:ADM IN Y Location: [address] Med Reconciliation Pharmacy Service has performed discharge medication reconciliation for this patient. The patient's discharge medication list was reviewed for discrepancies and discrepancies were resolved. Medications at Discharge Home Medications albuterol sulfate 90 mcg/actuation aerosol inhaler 1 puff inhalation Q4H PRN sob/wheezing 09/08/21 finasteride 5 mg tablet 5 mg PO DAILY 09/08/21 amlodipine 5 mg tablet 5 mg PO DAILY 07/02/22 gabapentin 100 mg capsule 100 mg PO QHS 10/27/22 oxycodone 5 mg capsule 5 mg PO Q6H PRN pain 3 days #10 caps 11/03/22 artifi.tears(hypromellose)(PF) 1.7 % eye drops with applicator 1 drp EACH EYE DAILY PRN dry eyes 09/19/23 budesonide 160 mcg-glycopyr 9 mcg-formot 4.8 mcg/actuation HFA inhaler (Breztri Aerosphere) 2 inh inhalation BID 09/19/23 nystatin 100,000 unit/gram topical cream 1 applic topical 4X/DAY PRN skin irritation 09/19/23 oxybutynin chloride 10 mg tablet,extended release 24 hr 10 mg PO DAILY 09/19/23 09/21/23 1332 <Electronically signed by Martita Jacobs> Date _ Martita Lindseyer Signature (if applicable): Date CC: ~ Signed [facility] Work Phone: Discharge summary Author Rosemary Fernandez [facility] September 21, 2023 12:59pm Note Date/Time September 21, 2023 12:48p [facility] Medical Records Department [address] [place] [address] Discharge Summary 09/21/23 1245 MR#: [id number] Acct: [id number] Name: DORIAN CRAMER Rep #:[id number] : 1935 88 From: Rosemary Fernandez DO PCP: Dr. Shoshana Ulrich MD Status:ADM IN Location: DE3 BR849-1 Providers Date of Admission: 09/19/23 Date of Discharge: 09/21/23 Primary Care Physician: Dr. Shoshana Ulrich MD Consultations 09/19/23 13:51 Consult: Gastroenterology Routine Consulting Provider: [facility] Reason for Consult: GI bleed EMERGENT Consult: No MD Notified: Yes Date Notified: 09/19/23 Time Notified: 12:23 Method of Notification: ED Physician Initiated Reason For Visit: BRBPR Diagnosis Discharge Diagnosis (1) GIB (gastrointestinal bleeding): Status: Acute Code(s): K92.2 - Gastrointestinal hemorrhage, unspecified (2) BRBPR (bright red blood per rectum): Status: Acute Code(s): K62.5 - Hemorrhage of anus and rectum (3) Acute on chronic anemia: Status: Chronic Code(s): D64.9 - Anemia, unspecified Medications at Discharge Home Medications albuterol sulfate 90 mcg/actuation aerosol inhaler 1 puff inhalation Q4H PRN sob/wheezing 09/08/21 finasteride 5 mg tablet 5 mg PO DAILY 09/08/21 amlodipine 5 mg tablet 5 mg PO DAILY 07/02/22 gabapentin 100 mg capsule 100 mg PO QHS 10/27/22 oxycodone 5 mg capsule 5 mg PO Q6H PRN pain 3 days #10 caps 11/03/22 artifi.tears(hypromellose)(PF) 1.7 % eye drops with applicator 1 drp EACH EYE DAILY PRN dry eyes 09/19/23 budesonide 160 mcg-glycopyr 9 mcg-formot 4.8 mcg/actuation HFA inhaler (Breztri Aerosphere) 2 inh inhalation BID 09/19/23 nystatin 100,000 unit/gram topical cream 1 applic topical 4X/DAY PRN skin irritation 09/19/23 oxybutynin chloride 10 mg tablet,extended release 24 hr 10 mg PO DAILY 09/19/23 Hospital Course Operations None Procedures Blood transfusion and Colonoscopy Summary of Care Provided Minutes Spent on Discharge: 37 Hospital Course: DORIAN CRAMER, is a 88 M who presented to the emergency department [facility] on 09/19/2023 with bright red blood per rectum. He stated it started on the day of presentation. He reported when he woke up this morning hefelt okay but had some pressure in his lower abdomen just below the umbilicus into the left. He stated after that he had a couple bouts of loose stool with blood noted that relieved the pressure. He denied any lightheadedness, dizziness, nausea, or vomiting. He does of diverticulosis and diverticulitis and remote history of GI bleeding but does not think he was admitted to the hospitalat that time. He is not currently on anticoagulation but did complain of a headache last evening at which time he took 2 aspirin. Headache is resolved at this time. He indicated if he was not having blood in his stool he would not bein the emergency department. Vital signs on presentation showed temperature 96.9, heart rate was 90, blood pressure was 153/83, respiratory is 18 oxygen saturations are 99% on room air. CBC showed an anemia that is slightly worse than baseline at 10.9. Baseline appears to be between 11 and 12. Platelet count was normal and he had no leukocytosis. Coags were normal. His chemistry panel was overtly unremarkable with a chronic stable elevated BUN and creatinineand a normal ratio. Serum creatinine on presentation was 1.25 (baseline 1-1.3). His glucose was 109. LFTs were unremarkable. CT abdomen pelvis was done and showed diffuse diverticulosis in the sigmoid colon, stable adenoma of the right adrenal gland, stable bilateral renal cysts and round atelectasis in the right lower lobe. He was admitted to the medical floor and placed on IV Protonix 40 mg twice daily, serial hemoglobins were monitored and he was started with a bowel prep for colonoscopy. By the a.m. of 09/20/2023 his hemoglobin had dropped from his baseline of between 11 and 12-8.3 so we did give him 1 unit of blood. His blood counts did seem to stabilize in the mid to low 8 range. After 1 unit of blood his hemoglobin was up to 9.4 and corrected appropriately. He was takenfor colonoscopy on 09/20/2023 and found to have a diverticular bleed which was clipped and for angiodysplastic lesions that were cauterized. He also had several 1 to 2 mm polyps throughout his colon that were resected with hot snare.Repeat colonoscopy was recommended in 6 months and he is to avoid aspirin, ibuprofen, naproxen and other nonsteroidal anti-inflammatory drugs for 4 weeks. Patient was feeling well and tolerating a regular diet with a stable hemoglobin on 09/21/2023 and felt stable for discharge. Patient was discharged home in stable condition. No prescription changes were made. I have asked him to follow- up with his primary care physician within the next week and have a repeatCBC he also was schedule an appointment to follow-up with Dr. Lee per his discharge instructions. Discharge diagnoses: Lower GI bleed secondary to diverticular bleed and angiodysplastic lesions Acute on chronic anemia Diarrhea-resolved CKD stage II Hypertension BPH with obstruction Urinary retention COPD Chronic pain JASMIN Tobacco abuse Physical Exam Const alert, oriented x3, no apparent distress, average body habitus, no limitations and well nourished Constitutional Narrative: Very pleasant, elderly, white male, sitting up in bed, nursing at bedside, patient appears comfortable, nontoxic General Appearance: cooperative, comfortable, well kempt and well developed Orientation / Consciousness: awake, oriented to person, oriented to place and oriented to time Exam Limitations: no limitations HEENT normocephalic, head/scalp atraumatic and moist oral mucous membranes HEENT Narrative: Dentition is poor, Mallampati is 2, no thrush, mild to moderate hearing loss Eyes PERRL and EOMs intact bilaterally Eyes Narrative: No scleral icterus, conjunctiva are slightly pale Neck no lymphadenopathy and supple Neck Narrative: Trachea midline, no thyroid enlargement Resp normal respiratory effort, no retractions, no use of accessory muscles and clearto auscultation bilaterally Resp Narrative: Diffusely diminished but clear Auscultation: Negative for rales, rhonchi or wheezes Cardio regular rate, regular rhythm, S1 normal heart sound, S2 normal heart sound, no murmurs, no rub, no gallops and no clicks GI normal to inspection, nondistended, normoactive bowel sounds, soft to palpation and non-tender Extremity no clubbing, cyanosis or edema Extremity Narrative: Pedal pulses are 2+ Skin no rashes or lesions noted, no wounds, skin turgor normal, no jaundice, no petechiae and no mottling Skin Narrative: Age and sun exposure related changes Neuro oriented x3, CN's II-XII intact bilaterally, moves all extremities and no focal motor deficits Speech: speech normal Psych affect normal Psych Narrative: Interacts appropriately, eye contact is good, very pleasant Weight / BMI Weight Weight: 68.1 kg Body Mass Index (BMI) 22.7 ABG / Lab / Microbiology Data 09/21/23 06:04 09/21/23 06:04 Laboratory: Laboratory Results - last 24 hr 09/19/23 08:45: Crossmatch See Detail 09/21/23 06:04: WBC 6.6, RBC 3.03 L, Hgb 9.4 L, Hct 29.6 L, MCV 97.7 H, MCH 31.0, MCHC 31.8 L, RDW Std Deviation 60.4 H, RDW Coeff of Beth 16.8 H, Plt Count 166, MPV 10.5, Immature Gran % (Auto) 0.300, Neut % (Auto) 76.7 H, Lymph % (Auto) 11.7 L, Gaines % (Auto) 5.8, Eos % (Auto) 5.2 H, Baso % (Auto) 0.3, Absolute Neuts (auto) 5.1, Absolute Lymphs (auto) 0.77 L, Nucleated RBC % 0, Sodium 141, Potassium 4.2, Chloride 109 H, Carbon Dioxide 26.0, Anion Gap 6, BUN 19 H, Creatinine 1.19, Estim Creat Clear Calc 42.92, Est GFR (MDRD) Af Amer 75, Est GFR (MDRD) Non-Af 62, BUN/Creatinine Ratio 16.0, Glucose 91, Calcium 8.7 Microbiology: Microbiology 09/19/23 11:51 Stool Stool Lactoferrin - Final 09/19/23 11:51 Stool Enteric Bacteriology - Final 09/19/23 11:51 Stool Clostridioides difficile (PCR) - Final D/C Instructions Discharge Diet: Low fat / Low cholesterol Discharge Activity: Return to Normal Activity Meaningful Use Info Meaningful Use Meaningful Use Diagnoses (Choose all that apply): None applicable Ischemic Stroke Statin Dosing Therapy Reference: STATIN DOSE THERAPY REFERENCE: * Patients > 75 years receive moderate or high dose statin therapy. * Patients 75 years or YOUNGER should receive HIGH intensity statin dose unless contraindicated. You will be required to document reason for non-treatment if statin daily dose does not meet guidelines. HIGH DOSE STATIN THERAPY DAILY Atorvastatin > than or = to 40 mg Rosuvastatin > than or = to 20 mg Amlodipine + Atorvastatin > than or = to 2.5/40 mg Ezetimibe + Simvastatin 10/80 mg Simvastatin 80mg Discharge Plan Admission Admit Date/Time: 09/19/23 12:21 Primary Reason for Your Visit: Rectal Bleeding Attending Provider: Rosemary Fernandez Primary Care Provider: Shoshana Ulrich Instructions Additional Instructions / Restrictions: 1. You were found to have a diverticular bleed that was clipped in 4 angiodysplastic lesions which are small areas of blood vessels that are oozing blood and those were cauterized. Your blood counts have improved and were stable at 9.4 at the time of discharge 2. Please call your primary care physician and ask that a complete blood count or CBC is done within the next 7 to 10 days to recheck your blood counts. 3. Avoid aspirin, ibuprofen, naproxen and other nonsteroidal anti-inflammatory drugs for 4 weeks Discharge Orders/Prescriptions Prescriptions: Continued amlodipine 5 mg tablet 5 mg PO DAILY albuterol sulfate 90 mcg/actuation HFA aerosol inhaler 1 puff INHALATION Q4H PRN (Reason: sob/wheezing) finasteride 5 mg tablet 5 mg PO DAILY gabapentin 100 mg capsule 100 mg PO QHS oxycodone 5 mg capsule 5 mg PO Q6H PRN (Reason: pain) 3 Days Qty: 10 0RF nystatin 100,000 unit/gram cream 1 applic topical 4X/DAY PRN (Reason: skin irritation) Breztri Aerosphere 160-9-4.8 mcg/actuation HFA aerosol inhaler 2 inh INHALATION BID oxybutynin chloride 10 mg tablet extended release 24hr 10 mg PO DAILY artifi.tears(hypromellose)(PF) 1.7 % drops with applicator 1 drp EACH EYE DAILY PRN (Reason: dry eyes) Referrals / Follow Up: Shoshana Ulrich MD [Primary Care Provider] - Within 1 Week Disposition Disposition (needs filled in before D/C Order can be placed): Home, Self Care Charges/Coding Visit Charges Inpatient E&M: 77458 Disch Hosp >30min 09/21/23 1259 <Electronically signed by Rosemary Fernandez DO> Cosigner Signature (if applicable): CC: Dr. Shoshana Ulrich MD; Dr. 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 Venous hypertension, chronic , with ulcer and inflammation chronic Gout acute Postphlebitic syndrome with both ulcer and inflammatio n acute Tobacco abuse counseling acu te Chronic venous insufficiency chronic Umaña phlebectatica chronic Emphysema of lung chronic History of kidney stones chr onic History of superficial thrombophlebitis chronic Hypertension chronic Postphlebitic syndrome with ulcer, left chronic Prostatism chronic Swelling of lower limb chron ic Tobacco abuse chronic 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 Venous hypertension, chronic , with ulcer and inflammation chronic Gout acute Postphlebitic syndrome with both ulcer and inflammatio n acute Tobacco abuse counseling acu te Chronic venous insufficiency chronic Umaña phlebectatica chronic Emphysema of lung chronic History of kidney stones chr onic History of superficial thrombophlebitis chronic Hypertension chronic Postphlebitic syndrome with ulcer, left chronic Prostatism chronic Swelling of lower limb chron ic Tobacco abuse chronic 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 Venous hypertension, chronic , with ulcer and inflammation chronic [facility] Work Phone: Evaluation note* Diagnosis Onset Date Resolution Status Gout acute Postphlebitic syndrome with both ulcer and inflammatio n acute Tobacco abuse counseling acu te Chronic venous insufficiency chronic Umaña phlebectatica chronic Emphysema of lung chronic History of kidney stones chr onic History of superficial thrombophlebitis chronic Hypertension chronic Postphlebitic syndrome with ulcer, left chronic Prostatism chronic Swelling of lower limb chron ic Tobacco abuse chronic 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 Venous hypertension, chronic , with ulcer and inflammation chronic [facility] Work Phone: Evaluation noteNo assessment information available [facility] Work Phone: Evaluation note* Diagnosis Onset Date Resolution Status Swelling of lower limb chron ic Tobacco abuse chronic [facility] Work Phone: Evaluation note* Diagnosis Onset Date Resolution Status BRBPR (bright red blood per rectum) acute GIB (gastrointestinal bleeding) acute Acute on chronic anemia 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 [facility] Work Phone: Hospital Discharge instructions Additional Instructions Implant Used?: [facility] Work Phone: Chief Complaint and Reason for Visit Chief Complaint wound wound wound NECK MASS J44.9 Chronic obstructive pulmonary disease, unspe J44.9 Chronic obstructive pulmonary disease, unspe COPD COPD Reason for Visit Gout 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 Tobacco abuse counseling Chronic venous insufficiency Umaña phlebectatica Emphysema of lung Eustachian tube dysfunction History of kidney stones History of superficial thrombophlebitis Hypertension Postphlebitic syndrome with ulcer, left Prostatism Swelling of lower limb Tobacco abuse 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 Venous hypertension, chronic, with ulcer and inflammation Gout 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 Tobacco abuse counseling Chronic venous insufficiency Umaña phlebectatica Emphysema of lung History of kidney stones History of superficial thrombophlebitis Hypertension Postphlebitic syndrome with ulcer, left Prostatism Swelling of lower limb Tobacco abuse 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 Venous hypertension, chronic, with ulcer and inflammation Gout 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 Tobacco abuse counseling Chronic venous insufficiency Umaña phlebectatica Emphysema of lung History of kidney stones History of superficial thrombophlebitis Hypertension Postphlebitic syndrome with ulcer, left Prostatism Swelling of lower limb Tobacco abuse 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 Venous hypertension, chronic, with ulcer and inflammation Chief Complaint wound wound wound NECK MASS J44.9 Chronic obstructive pulmonary disease, unspe J44.9 Chronic obstructive pulmonary disease, unspe COPD COPD abd pain Reason for Visit Gout 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 Tobacco abuse counseling Chronic venous insufficiency Umaña phlebectatica Emphysema of lung Eustachian tube dysfunction History of kidney stones History of superficial thrombophlebitis Hypertension Postphlebitic syndrome with ulcer, left Prostatism Swelling of lower limb Tobacco abuse 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 Venous hypertension, chronic, with ulcer and inflammation Gout 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 Tobacco abuse counseling Chronic venous insufficiency Umaña phlebectatica Emphysema of lung History of kidney stones History of superficial thrombophlebitis Hypertension Postphlebitic syndrome with ulcer, left Prostatism Swelling of lower limb Tobacco abuse 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 Venous hypertension, chronic, with ulcer and inflammation Gout 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 Tobacco abuse counseling Chronic venous insufficiency Umaña phlebectatica Emphysema of lung History of kidney stones History of superficial thrombophlebitis Hypertension Postphlebitic syndrome with ulcer, left Prostatism Swelling of lower limb Tobacco abuse 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 Venous hypertension, chronic, with ulcer and inflammation Chief Complaint wound NECK MASS J44.9 Chronic obstructive pulmonary disease, unspe J44.9 Chronic obstructive pulmonary disease, unspe COPD COPD abd pain LUMBAR RAD Reason for Visit Gout 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 Tobacco abuse counseling Chronic venous insufficiency Umaña phlebectatica Emphysema of lung History of kidney stones History of superficial thrombophlebitis Hypertension Postphlebitic syndrome with ulcer, left Prostatism Swelling of lower limb Tobacco abuse 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 Venous hypertension, chronic, with ulcer and inflammation Chief Complaint INS SPINAL CORD STIM PERM X 2 LEADS lower abd pain Chief Complaint INS SPINAL CORD STIM PERM X 2 LEADS lower abd pain PRE OP EKG/LABWORK PRE OP Chief Complaint INS SPINAL CORD STIM PERM X 2 LEADS lower abd pain PRE OP EKG/LABWORK PRE OP LEFT EPIDIDYMIS Chief Complaint RT HAND PAINFUL & SW OLLEN XRAY PRE OP EKG/LABWORK PRE OP LEFT EPIDIDYMIS right leg PULMONARY HYPERTENSION Reason for Visit Swelling of lower li mb Tobacco abuse Chief Complaint PRE OP EKG/LABWORK PRE OP LEFT EPIDIDYMIS right leg PULMONARY HYPERTENSION cysto, turp, olympus Chief Complaint right leg PULMONARY HYPERTENSION cysto, turp, olympus Chief Complaint X-RAY OF THE THORACI C Chief Complaint X-RAY OF THE THORACI C Soft tissue disorder, unspecified Chief Complaint X-RAY OF THE THORACI C Soft tissue disorder, unspecified BACK AND SHOULDER PAIN Chief Complaint Soft tissue disorder , unspecified BACK AND SHOULDER PAIN STRAIN OF NECK, THORAX/RX HERE PRE OP PRE OP Chief Complaint Soft tissue disorder , unspecified BACK AND SHOULDER PAIN PRE OP PRE OP STRAIN OF NECK, THORAX/RX HERE Chief Complaint Soft tissue disorder , unspecified BACK AND SHOULDER PAIN PRE OP PRE OP STRAIN OF NECK, THORAX/RX HERE BRBPR Reason for Visit BRBPR (bright red bl ood per rectum) GIB (gastrointestinal bleeding) Acute on chronic anemia Chief Complaint Soft tissue disorder , unspecified BACK AND SHOULDER PAIN PRE OP PRE OP STRAIN OF NECK, THORAX/RX HERE BRBPR BRBPR BRBPR BRBPR Reason for Visit BRBPR (bright red bl ood per rectum) GIB (gastrointestinal bleeding) Acute on chronic anemia Chief Complaint Admit Date UPPER EXT May 26, 2024 1 1:51am BILAT LEG PAIN June 20, 2024 2 :58pm dvt June 20, 2024 4 :04pm NEW PATIENT : ER FU June 26, 2024 3:50pm GENITAL DYSESTHESIA July 13, 2024 12:50pm Reason for Visit Admit Date Acute deep vein thrombosis (DVT) of righ t lower extremity June 26, 2024 3:50pm Lumbar and sacral spondylarthritis Febru genesis 2024 12:50pm Paresthesia July 13, 2024 12:50pm Family History Relationship Condition Age at Onset Recorded Date/T lupe Unknown Family History?- Unknown December 2:48pm Family History?- Unknown December 2:48pm Relationship Condition Age at Onset Recorded Date/T lupe Unknown Family History?- Unknown December 1:48pm Family History?- Unknown December 1:48pm Relationship Condition Age at Onset Recorded Date/T lupe mother Malignant neoplasm Unknown father Alzheimer's disease Unknown Advance Directives Advance Directive Response Recorded Date/ Time Advance Directives Yes June 02, 2016 3:11pm Living Will Yes September 11, 2020 2:04pm Power of Baler Operator Yes September 11 2:04pm Advance Directive Response Recorded Date/ Time Advance Directives Yes June 02, 2016 3:11pm Living Will No September 08, 2021 10:14am Power of Baler Operator No September 08 10:14am Advance Directive Response Recorded Date/ Time Advance Directives Yes June 02, 2016 2:11pm Living Will No April 09, 2 022 1:41pm Power of Baler Operator No April 09, 2022 1:41pm Advance Directive Response Recorded Date/ Time Advance Directives Yes June 02, 2016 3:11pm Living Will No April 09, 2 022 2:41pm Power of Baler Operator No April 09, 2022 2:41pm Advance Directive Response Recorded Date/ Time Advance Directives Yes June 02, 2016 3:11pm Living Will Yes October 27, 2022 10:19am Power of Baler Operator Yes October 27 10:19am Advance Directive Response Recorded Date/ Time Name of Medical Power of Baler Operator . November 03, 2022 2:22pm Advance Directives Yes June 02, 2016 3:11pm Living Will Yes November 03, 2022 2:22pm Power of Baler Operator Yes November 03 2:22pm Advance Directive Response Recorded Date/ Time Advance Directives Yes June 02, 2016 2:11pm Living Will Yes November 03, 2022 1:22pm Power of Baler Operator Yes November 03 1:22pm Advance Directive Response Recorded Date/ Time Name of Medical Power of Baler Operator July 21, 2023 8:23am Advance Directives Yes June 02, 2016 2:11pm Living Will Yes July 21, 2023 8:23am Power of Baler Operator Yes July 20 8:23am Advance Directive Response Recorded Date/ Time Name of Medical Power of Baler Operator July 21, 2023 9:23am Advance Directives Yes June 02, 2016 3:11pm Living Will Yes July 21, 2023 9:23am Power of Baler Operator Yes July 20 9:23am Advance Directive Response Recorded Date/ Time Advance Directives Yes June 02, 2016 3:11pm Living Will No September 19, 2023 12 :09pm Power of Baler Operator No September 19, 2023 12:09pm Name of Medical Power of Baler Operator July 21, 2023 9:23am Advance Directive Response Recorded Date/ Time Advance Directives Yes June 02, 2016 3:11pm Living Will No September 19, 2023 2: 13pm Power of Baler Operator No September 19, 2023 2:13pm Name of Medical Power of Baler Operator July 21, 2023 9:23am Advance Directive Response Recorded Date/ Time Advance Directives Yes June 22, 2024 9:55am Living Will Yes May 26 1:00pm Do you have a Healthcare Power of Baler Operator? Yes May 26, 2024 1:00pm Name of Medical Power of Baler Operator May 26, 2024 1:00pm Living Will No June 20 8:30pm Do you have a Healthcare Power of Baler Operator? No June 20, 2024 8:30pm Summary Purpose Additional Source Comments Goals (unrecognized section and content) Goals may be documented in a n alternate sectionGoals may be documented in an alternate sectionGoals may be documented in an alternate sectionGoals may be documented in an alternate sectionGoals may be documented in an alternate sectionGoals may be documented in an alternate sectionGoals may be documented in an alternate sectionGoals may be documented in an alternate sectionGoals may be documented in an alternate sectionGoals may be documented in an alternate sectionGoals may be documented in an alternate section (unrecognized sect ion and content) No Status Records FoundNo Status Records Found INFORMATION SOURCE (unrecogn ized section and content) DATE CREATED AUTHOR 09/15/2021 [facility] ([place]) DATE CREATED AUTHOR AUTHOR'S ORGANIZ ATION 08/09/2024 [facility] Care Teams (unrecognized sec tion and content) Team Status: Active Member Role Status Dates Dr. Shoshana Ulrich MD Family Provider Active Dr. Shoshana Ulrich MD Primary Care Provider Active Team Status: Active Member Role Status Dates Dr. Shoshana Ulrich MD Primary Care Provider Active Dr. Stefan Orr MD Attending Provider Active Dr. Sam Foster MD Referring Provider Active Team Status: Inactive Member Role Status Dates Dr. Shoshana Ulrich MD Primary Care Provider Active Dr. Sai Crockett MD Attending Provider, Referring Provider Active Team Status: Inactive Member Role Status Dates Dr. Shoshana Ulrich MD Primary Care Provider Active Dr. Santana Sandoval DO Attending Provider, Emergency P jese Active Team Status: Inactive Member Role Status Dates Dr. Shoshana Ulrich MD Primary Care Provider Active Dr. Sam Foster MD Attending Provider, Referr ing Provider Active Team Status: Inactive Member Role Status Dates Dr. Shoshana Ulrich MD Primary Care Provider Active Dr. Sam Foster MD Attending Provider Active Team Status: Inactive Member Role Status Dates Gonzalez Castro PA, PA Attending Provider Active Team Status: Inactive Member Role Status Dates Dr. Stefan Orr MD Attending Provider Active Team Status: Active Member Role Status Dates Dr. Shoshana Ulrich MD Primary Care Provider Active Dr. Edgar Hennessy MD Attending Provider Active Dr. Michele Ruby MD Referring Provider Active Team Status: Active Member Role Status Dates Dr. Shoshana Ulrich MD Primary Care Provider Active Dr. Stefan Orr MD Attending Provider Active Team Status: Inactive Member Role Status Dates Dr. Michele Ruby MD Attending Provider, Emergency Provider Active Dr. Shoshana Ulrich MD Primary Care Provider Active Team Status: Inactive Member Role Status Dates Dr. Shoshana Ulrich MD Primary Care Prov ider, Attending Provider, Referring Provider Active Team Status: Inactive Member Role Status Dates Dr. Shoshana Ulrich MD Primary Care Provider Active Dr. Sam Foster MD Admit Provid er, Attending Provider, Referring Provider Active Dr. Jesus Mendoza MD Other Provider Active Team Status: Inactive Member Role Status Dates Dr. Shoshana Ulrich MD Primary Care Provider Active Dr. Sai Crockett MD Attending Provi kelechi, Referring Provider, Other Provider Active Team Status: Inactive Member Role Status Dates Dr. Shoshana Ulrich MD Primary Care Provider Active Dr. Sai Salazar DPM Attending Provider, Referrin g Provider Active Team Status: Inactive Member Role Status Dates Dr. Shoshana Ulrich MD Primary Care Provider Active Dr. Santana Sandoval , Emergency Provider Active Team Status: Active Member Role Status Dates Dr. Shoshana Ulrich MD Primary Care Provider Active Dr. Stefan Orr MD Attending Provider Active Dr. Sunny Smiley MD Referring Provider Activ e Team Status: Active Member Role Status Dates Dr. Shoshana Ulrich MD Primary Care Prov ider, Attending Provider, Referring Provider Active Team Status: Inactive Member Role Status Dates Dr. Shoshana Ulrich MD Primary Care Provider Active Dr. Sunny Smiley MD Attending Provider, Refe rring Provider Active Team Status: Active Member Role Status Dates Dr. Shoshana Ulrich MD Primary Care Provider Active Dr. Russel Pal DO Emergency Provider Active Dr. Rosemary Fernandez DO Admit Provider, Attending Provide r Active Team Status: Active Member Role Status Dates Dr. Shoshana Ulrich MD Primary Care Provider Active Dr. Russel Pal DO Emergency Provider Active Dr. Rosemary Fernandez DO Admit Provider, Other Provider Ac tive Dr. Lionel Lee DO Attending Provider Active Team Status: Active Member Role Status Dates Dr. Shoshana Ulrich MD Primary Care Provider Active Dr. Russle Pal DO Emergency Provider Active Dr. Rosemary Fernandez DO Admit Provider, Att ending Provider, Other Provider Active Team Status: Active Member Role Status Dates Dr. Shoshana Ulrich MD Primary Care Provider Active Dr. Lionel Lee , Attending Provider Active Team Status: Inactive Member Role Status Dates Dr. Shoshana Ulrich MD Primary Care Provider Active Dr. Russel Pal DO Emergency Provider Active Dr. Rosemary Fernandez DO Admit Provider, Attending Provide r Active Team Status: Active Member Role Status Dates Dr. Shoshana Ulrich MD Primary Care Provider Active Team Status: Inactive Member Role Status Dates Dr. Shoshana Ulrich MD Primary Care Provider Active Start: April 17, 2024 End: April 17, 2024 Dr. Shoshana Ulrich MD Attending Provider Active Start: April 17, 2024 End: April 17, 2024 Dr. Shoshana Ulrich MD Referring Provider Active Start: April 17, 2024 End: April 17, 2024 Team Status: Inactive Member Role Status Dates Dr. Shoshana Ulrich MD Primary Care Provider Active Start: May 26, 2024 End: May 26, 2024 Dr. Santana Sandoval DO Attending Provider Active Start: May 26, 2024 End: May 26, 2024 Dr. Santana Sandoval DO Emergency Provider Active Start: May 26, 2024 End: May 26, 2024 Team Status: Inactive Member Role Status Dates Dr. Shoshana Ulrich MD Primary Care Provider Active Start: June 20, 2024 End: June 20, 2024 Dr. Sai Salazar DPM Attending Provider Active Start: June 20, 2024 End: June 20, 2024 Dr. Sai Salazar DPM Referring Provider Active Start: June 20, 2024 End: June 20, 2024 Team Status: Active Member Role Status Dates Dr. Shoshana Ulrich MD Primary Care Provider Active Start: June 20, 2024 Dr. Santana Mason MD Attending Provider Active S tart: June 20, 2024 Dr. Sai Salazar DPM Referring Provider Active Start: June 20, 2024 Team Status: Inactive Member Role Status Dates Dr. Shoshana Ulrich MD Primary Care Provider Active Start: June 20, 2024 End: June 20, 2024 Dr. Marco Antonio Garay DO Attending Provider Activ e Start: June 20, 2024 End: June 20, 2024 Dr. Marco Antonio Garay DO Emergency Provider Activ e Start: June 20, 2024 End: June 20, 2024 Team Status: Inactive Member Role Status Dates Dr. Shoshana Ulrich MD Primary Care Provider Active Start: June 26, 2024 End: June 26, 2024 Dr. Shoshana Ulrich MD Referring Provider Active Start: June 26, 2024 End: June 26, 2024 AARON Gonzales Attending Provider Active Star t: June 26, 2024 End: June 26, 2024 Team Status: Inactive Member Role Status Dates Dr. Shoshana Ulrich MD Primary Care Provider Active Start: July 13, 2024 End: July 13, 2024 Dr. Shoshana Ulrich MD Referring Provider Active Start: July 13, 2024 End: July 13, 2024 Dr. Jose Figueroa MD Attending Provider Active Start: July 13, 2024 End: July 13, 2024 Team Status: Inactive Member Role Status Dates Dr. Shoshana Ulrich MD Primary Care Provider Active Start: July 24, 2024 End: July 24, 2024 Dr. Shoshana Ulrich MD Attending Provider Active Start: July 24, 2024 End: July 24, 2024 FOR RECORDS PERTAINING TO PATIENTS WHO ARE [...] BE BASED ON THE PRIMARY CLINICAL RECORDS. [facility], [facility]. provides no warranty or guarantee of the accuracy or completeness of information in this document.
--- NOTE | 2024-11-02 19:35 | CASEMGMT ---
Care Management Face to Face with patient for initial transition planning/care coordination assessment in the ED. This radio script writer introduced self and role at [facility]. Patient alert and oriented. Patient willing to participate in assessment and is able to answer all questions appropriately. Care providers, pharmacy, and demographics verified. Admitting Diagnosis: possible rectus sheath hematoma Other diagnosis history: HTN, DVT on Eliquis PCP: Shoshana Ulrich Specialists: Dr. Crockett, pain management. [facility]. Preferred Pharmacy: [facility] Insurance: Anthem Medicare Senior Prescription Benefit: yes Living Will/HPOA: vasyl Warner (primary). Vasyl Polk (secondary). LNOK: Timmy arredondo and Jam. Living Arrangements: patient lives alone, one story home with 2 steps to enter, independent at baseline with ADLs/IADLs Transportation: patient drives DME: patient reports only using a cane, but having access to the following due to patient's using it prior to passing: walker, raised toilet seat, grab bars in the bathroom) HHC: none SNF/Rehab: none Community Resources: none Patient goals: Patient wishes to discharge home, denies need for home health care at this time. Patient denies any further needs or concerns at this time. Disposition Plan: admission to acute; RN CM/SW to follow for discharge planning needs that may arise. Velia Vaughn, RADIO COMMENTATOR, TOOL MACHINE SHOP SUPERVISOR
[2024-11-02 19:44] LABS: Red Blood Cells-Urine 0-5 SEEN /hpf (0-5); Squamous Epithelial Cells - UA 0-5 SEEN /hpf (0-5); White Blood Cells 0-5 SEEN /hpf (0-5)
[2024-11-02 19:52] VITALS: BMI 24.3
[2024-11-02 20:14] VITALS: BP 147/75; PULSE 82; RESP 18; TEMP 36.4; O2SAT 92
[2024-11-02] MEDS: 0.9% Saline Lock 10 ML Syringe IV (20:23)
[2024-11-02] MEDS: HYDROmorphone 0.5 MG/0.5 ML SYRINGE IV (20:23)
--- NOTE | 2024-11-02 21:07 | CM.ED ---
Social work While completing RNCM initial assessment, patient voiced being concerned about patient's dog being left home alone. SW asked if there was anyone patient could call to let the dog out for patient during patient's admission. Patient used phone to call patient's DIL Beena (ph: [phone]). Patient reported Beena could let patient's dog out while patient was admitted. Patient denied further needs at this time. Velia Vaughn, SYSTEM OPERATION SUPERINTENDENT, PUPPET ENGINEER
--- NOTE | 2024-11-02 21:15 | PCM.HP.STD ---
HPI - General General Date of Admission: 11/02/24 Date of Service: 11/02/24 Chief Complaint: Right lower abdominal pain HPI Narrative DESMOND WINCHESTER, is a 89 M who presented to [facility] ED on 11/02/2024 with worsening right lower abdominal pain. 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 He has been on Eliquis since that time with good improvement in his leg swelling and mobility. Has been following with vascular surgery in the office. Plan per vascular was for Eliquis 5 mg twice daily for minimum of 6 months given the unprovoked nature of the DVT. On presentation to the ED today, patient reports right lower abdominal pain and swelling with bruising over the past 3 to 4 days. He has also had constipation with this. CT abdomen pelvis showed a 6.7 cm isodense lesion in the right aspect of the lower anterior abdominal wall concerning for a rectus sheath hematoma; also showed a distended colon with air-fluid levels measuring up to 8.1 cm in diameter representing recent diarrhea versus colonic ileus. ED discussed with general surgery who noted that typical management is to discontinue the anticoagulant and rectal sheath hematoma will improve on its own. We also noted that supportive treatment for possible colonic ileus is reasonable for now. Notably hemoglobin was 11.4 in the ED with baseline hemoglobin around 11-12, and patient was hemodynamically stable on room air with heart rate in the 70s. Given these findings, hospitalist was contacted for admission. I saw the patient at bedside in the ED. Patient was mildly fatigued appearing but otherwise sitting back comfortably in bed, conversing normally, in no acute distress. He noted mild pain at the site of bruising and swelling currently that is worse with certain movements. He denies any lightheadedness/dizziness. Denies any other acute concerns currently. Will be admitted for further management. 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 Wears glasses Wears hearing aid in both ears Cancer Alcohol abuse Hx of gout Heartburn CPAP (continuous positive airway pressure) dependence Shortness of breath on exertion Smoker Emphysema, unspecified Hypertension Restless legs Injury of back Home Medications ?Medication ?Instructions ?Recorded ?Last Taken ?Type albuterol sulfate 90 mcg/actuation 1 puff inhalation Q4H PRN 09/08/21 Unknown History aerosol inhaler sob/wheezing amlodipine 5 mg tablet 5 mg PO DAILY 07/02/22 09/18/23 History artifi.tears(hypromellose)(PF) 1.7 1 drp EACH EYE DAILY PRN dry eyes 09/19/23 Unknown History % eye drops with applicator oxybutynin chloride 10 mg 10 mg PO DAILY 09/19/23 Unknown History tablet,extended release 24 hr nystatin 100,000 unit/gram topical 1 applic topical QDAY PRN yeast 07/13/24 Unknown History powder apixaban 5 mg tablet (Eliquis) 5 mg PO BID #180 tabs 07/25/24 Unknown Rx oxycodone-acetaminophen 5 mg-325 1 tab PO TID PRN PRN pain 11/02/24 Unknown History mg tablet Allergy/AdvReac Type Severity Reaction Status Date / Time ibuprofen (From Motrin) Allergy Swelling Verified 11/02/24 15:49 Family History Mother , 61 Cancer Father , 91 AD (Alzheimer's disease) Surgical History History of hand surgery S/P insertion of spinal cord stimulator History of varicose vein stripping Hx of myringotomy History of parotidectomy History of esophagogastroduodenoscopy (EGD) History of cystoscopy Hx of basal cell carcinoma excision Hx of finger joint replacement Hx of decompressive lumbar laminectomy Social History household members: spouse and none housing: house current occupational status: retired pets and animals: Yes pets and animals: dog(s) Smoking Status: Current every day smoker tobacco type: cigarettes alcohol intake: current details: On avg a couple drinks each evening substance use type: does not use caffeine: Yes Type: coffee Number of servings: 2 do you feel safe at home: Yes ROS Constitutional Constitutional: Reports fatigue; Denies chills, fever(s) or weakness Eyes Eyes: Denies change in vision Cardiovascular Cardiovascular: Denies chest pain Respiratory/Chest Respiratory/Chest: Denies cough, productive cough, shortness of breath at rest or shortness of breath with exertion Gastrointestinal Gastrointestinal: Reports abdominal pain, constipation and nausea; Denies diarrhea or vomiting Genitourinary Genitourinary: Denies dysuria Musculoskeletal Musculoskeletal: Denies arthralgias or myalgias Neurologic Neurologic: Denies dizziness, focal weakness or headache(s) Vital Signs Vital Signs Vital Signs: 11/02/24 14:01 11/02/24 16:28 11/02/24 19:13 Temperature 97.9 F Temperature Source Oral Pulse Rate 90 71 75 Respiratory Rate 17 22 H 16 Blood Pressure 141/86 H 152/76 H 139/74 H Blood Pressure Mean 104 101 95 Blood Pressure Source Blood Pressure Position Blood Pressure Location Pulse Ox 98 95 92 Oxygen Delivery Method Room Air Room Air 11/02/24 19:15 11/02/24 20:14 Temperature 92 F L 97.5 F L Temperature Source Oral Pulse Rate 77 82 Respiratory Rate 17 18 Blood Pressure 139/74 H 147/75 H Blood Pressure Mean 95 99 Blood Pressure Source Monitor Blood Pressure Position Semi-Fowlers Blood Pressure Location Right Arm Pulse Ox 98 92 Oxygen Delivery Method Room Air Weight Weight: 66.361 kg Body Mass Index (BMI) 24.3 Physical Exam Const alert, oriented x3, no apparent distress and average body habitus Constitutional Narrative: Pleasant elderly male, mildly fatigued appearing but otherwise sitting back comfortably in bed, conversing normally, in no acute distress. General Appearance: cooperative and comfortable HEENT normocephalic, head/scalp atraumatic, hearing grossly normal bilaterally, nasal mucous membranes and turbinates normal and moist oral mucous membranes Eyes PERRL, EOMs intact bilaterally and conjunctivae normal Neck full ROM Chest inspection of chest normal Resp normal respiratory effort, normal air movement, no use of accessory muscles and clear to auscultation bilaterally Cardio regular rate, regular rhythm, no murmurs and peripheral pulses 2+ throughout GI GI Narrative: Right lower abdominal area with swelling, bruising and tenderness to palpation. Abdomen otherwise mildly distended but soft. Back/Spine normal ROM Extremity normal to inspection, full ROM and no pedal edema Skin no rashes or lesions noted Psych mental status grossly normal Results Lab / Micro Data 11/02/24 15:41 11/02/24 15:41 Labs: Laboratory Results - last 24 hr 11/02/24 15:41: WBC 7.5, RBC 3.35 L, Hgb 11.4 L, Hct 34.0 L, MCV 101.5 H, MCH 34.0 H, MCHC 33.5, RDW Std Deviation 62.1 H, RDW Coeff of Beth 16.7 H, Plt Count 216, MPV 10.0, Immature Gran % (Auto) 1.300 H, Neut % (Auto) 87.4 H, Lymph % (Auto) 4.5 L, Moody % (Auto) 6.7, Eos % (Auto) 0.0, Baso % (Auto) 0.1, Absolute Neuts (auto) 6.6, Absolute Lymphs (auto) 0.34 L, Nucleated RBC % 0, Sodium 141, Potassium 4.4, Chloride 103, Carbon Dioxide 27.6, Anion Gap 10, BUN 25 H, Creatinine 1.19, Estim Creat Clear Calc 40.83 L, Est GFR (MDRD) Non-Af 59 L, BUN/Creatinine Ratio 21.3 H, Glucose 125 H, Lactic Acid 1.4, Calcium 8.9 11/02/24 19:08: Urine Color Yellow, Urine Clarity Clear, Urine pH 8.0, Ur Specific [place] 1.010, Urine Protein 30 H, Urine Glucose (UA) Normal, Urine Ketones Negative, Urine Occult Blood Negative, Urine Nitrite Negative, Urine Bilirubin Negative, Urine Urobilinogen Normal, Ur Leukocyte Esterase Negative, Urine RBC 0-5 SEEN, Urine WBC 0-5 SEEN, Ur Squamous Epith Cells 0-5 SEEN, Urine Bacteria 0 SEEN, Urine Mucus 0 SEEN Imaging Radiology Impression Abdomen/Pelvis CT 11/02/24 17:05 IMPRESSION: 1. Isodense lesion of the right aspect of the lower anterior abdominal wall measuring up to 6.7 cm. This could be a rectus sheath hematoma. 2. Distended colon with air-fluid levels measuring up to 8.1 cm in diameter could represent recent diarrhea. Colonic ileus can not be excluded. 3. Hepatomegaly with fatty infiltration. 4. Right nephrolithiasis without hydronephrosis. 5. Inguinal hernias, bilaterally. 6. Right basilar atelectasis with nodular configuration. Repeat chest CT in 3 months is recommended. 7. Colonic diverticulosis without acute diverticulitis. Reading Location: [facility] Assessment & Plan Assessment/Plan (1) Rectus sheath hematoma: PLAN: Plan Patient is an 89-year-old male who presented to [facility] ED on 11/02/2024 with worsening right lower abdominal pain and swelling. 1. Rectus sheath hematoma ? Admit under observation status to [facility]. Presented with right lower abdominal bruising, swelling and pain. CT abdomen pelvis showed 6.7 cm isodense lesion in the right lower anterior abdominal wall consistent with rectus sheath hematoma. Discussed with general surgery; typically this is managed conservatively and heals on its own. If any procedure was needed, patient would need transferred for IR services. Hemoglobin 11.4 on admit, at baseline. Will hold home Eliquis and discuss with patient on need for close outpatient follow-up with vascular surgery as below. Follow-up a.m. CBC. If hemoglobin remains essentially stable, patient should be okay for discharge home. Would then plan for repeat CBC mid next week. No clear recommendation on if/when to reimage with CT but notably it usually takes short months to resolve. Pain control with Tylenol, oxycodone and IV Dilaudid as needed. Ice in place to help with pain and swelling. 2. Recent extensive right lower extremity DVT ? Follows with vascular surgery. Had extensive right lower extremity DVT up to the common femoral vein on duplex ultrasound in May. Has been treated with Eliquis since then with great improvement in right leg swelling. Plan per vascular was for 6 months of Eliquis 5 mg twice daily, likely followed by Eliquis 2.5 mg twice daily. Holding Eliquis as above. Recommended that patient call the vascular surgery office to follow-up with them in the next week for further recommendations moving forward; suspect IVC filter could be considered for patient but will defer this to vascular surgery. 3. Constipation versus colonic ileus ? Patient reporting constipation for several days prior to admission. CT of the pelvis showed descending colon with air-fluid levels representing recent diarrhea versus colonic ileus. Per general surgery, okay for supportive care with IV fluids and correcting electrolyte imbalances as needed. If this does not improve, low threshold to consult surgery. 4. Hypertension ? Continue home amlodipine. 5. Overactive bladder ? Continue home oxybutynin. DVT prophylaxis: SCDs CODE STATUS: DNR CCA, okay to intubate Expected disposition: Home, 1 to 2 days Total clinical time spent by myself addressing the patient's medical issues, reviewing all the data, and collaborating with patient's care team: 75 minutes. Charges/Coding Visit Charges Inpatient E&M: 57810 Init Hosp L3
[2024-11-02] MEDS: Acetaminophen 325 MG Tablet 650 MG PO (22:31)
[2024-11-02] MEDS: oxyCODONE 5 MG Tablet PO (22:31)
[2024-11-02] MEDS: MELATONIN 3 MG TABLET PO (22:32)
[2024-11-03] VITALS (10 sets, daily range): BP systolic 107–141; BP diastolic 64–71; PULSE 61–80; RESP 16–18; TEMP 36.6–37.2; O2SAT 88–95
[2024-11-03 06:55] LABS: Hematocrit 27.4 % (40-54); Hemoglobin 9.3 g/dL (13.0-16.5); Mean Corp Hgb Conc 33.9 g/dL (32-36); Mean Corpuscular Hgb 34.8 pg (27.0-32.0); Mean Corpuscular Volume 102.6 fL (80-94); Mean Platelet Vol. 9.8 fl (6.2-12.0); Platelet Count 164 K/mm3 (150-450); RBC Distribution Width SD 63.1 fl (35.1-43.9); Red Blood Count 2.67 M/mm3 (4.6-6.2); White Blood Count 5.1 K/mm3 (4.4-11.0)
[2024-11-03 07:44] LABS: Anion Gap 7 (5-15); BUN 24 mg/dL (4-19); BUN/Creat Ratio 20.4 RATIO (10-20); Calcium,Total 8.2 mg/dL (7.6-11.0); Carbon Dioxide 25.7 mmol/L (21.0-32.0); Chloride 104 mmol/L (98-108); Creatinine, Serum 1.18 mg/dL (0.70-1.20); EST Glomerular Filtration Rate 60 (>60); Estimated Creatinine Clearance 38.37 ml/min (50-250); Glucose 116 mg/dL (70-99); Potassium 4.9 mmol/L (3.3-5.1); Sodium Level 137 mmol/L (133-145)
--- NOTE | 2024-11-03 09:18 | PCM.PN.HOSP ---
Reason for Visit Reason for Visit: Diagnoses Contusion of abdominal wall, initial encounter (11/02/24) Subjective Subjective Patient was up to bathroom and sat back down in chair immediately before evaluation, reports that when he pushes on his abdomen is jelly filter tender in the right lower quadrant but that the pain outside of palpation is significantly improving, has had 4 stools today though quite liquidy but is having output, denies abdominal pain outside of the right lower quadrant, noted that it was documented he dropped to 88% at some point patient denies any cough, no shortness of breath, no other complaints whatsoever Objective Data Objective Data Vital Signs: Vital Signs Temp Pulse Resp BP Pulse Ox O2 Del Method O2 Flow Rate 97.9 F 61 18 107/68 94 Nasal Cannula 2 11/03/24 08:27 11/03/24 08:27 11/03/24 08:27 11/03/24 08:27 11/03/24 08:27 11/03/24 08:27 11/03/24 08:27 Oxygen Flow Rate (L/min) 2 Oxygen Delivery Method Nasal Cannula Weight: 66.361 kg Body Mass Index (BMI) 24.3 Intake & Output: Intake and Output for Last 24 Hours 11/01/24 11/02/24 11/03/24 23:59 23:59 23:59 Intake Total 1150 / 1150 150 / 150 Balance 1150 / 1150 150 / 150 Lab / Micro Data 11/03/24 06:45 11/03/24 06:45 Labs: Laboratory Results - last 24 hr 11/02/24 15:41: WBC 7.5, RBC 3.35 L, Hgb 11.4 L, Hct 34.0 L, MCV 101.5 H, MCH 34.0 H, MCHC 33.5, RDW Std Deviation 62.1 H, RDW Coeff of Beth 16.7 H, Plt Count 216, MPV 10.0, Immature Gran % (Auto) 1.300 H, Neut % (Auto) 87.4 H, Lymph % (Auto) 4.5 L, [place] % (Auto) 6.7, Eos % (Auto) 0.0, Baso % (Auto) 0.1, Absolute Neuts (auto) 6.6, Absolute Lymphs (auto) 0.34 L, Nucleated RBC % 0, Sodium 141, Potassium 4.4, Chloride 103, Carbon Dioxide 27.6, Anion Gap 10, BUN 25 H, Creatinine 1.19, Estim Creat Clear Calc 40.83 L, Est GFR (MDRD) Non-Af 59 L, BUN/Creatinine Ratio 21.3 H, Glucose 125 H, Lactic Acid 1.4, Calcium 8.9 11/02/24 19:08: Urine Color Yellow, Urine Clarity Clear, Urine pH 8.0, Ur Specific [place] 1.010, Urine Protein 30 H, Urine Glucose (UA) Normal, Urine Ketones Negative, Urine Occult Blood Negative, Urine Nitrite Negative, Urine Bilirubin Negative, Urine Urobilinogen Normal, Ur Leukocyte Esterase Negative, Urine RBC 0-5 SEEN, Urine WBC 0-5 SEEN, Ur Squamous Epith Cells 0-5 SEEN, Urine Bacteria 0 SEEN, Urine Mucus 0 SEEN 11/03/24 06:45: WBC 5.1, RBC 2.67 L, Hgb 9.3 L, Hct 27.4 L, MCV 102.6 H, MCH 34.8 H, MCHC 33.9, RDW Std Deviation 63.1 H, RDW Coeff of Beth 17.0 H, Plt Count 164, MPV 9.8, Sodium 137, Potassium 4.9, Chloride 104, Carbon Dioxide 25.7, Anion Gap 7, BUN 24 H, Creatinine 1.18, Estim Creat Clear Calc 38.37 L, Est GFR (MDRD) Non-Af 60, BUN/Creatinine Ratio 20.4 H, Glucose 116 H, Calcium 8.2 Radiography Diagnostic Testing: Radiology Impression Abdomen/Pelvis CT 11/02/24 17:05 IMPRESSION: 1. Isodense lesion of the right aspect of the lower anterior abdominal wall measuring up to 6.7 cm. This could be a rectus sheath hematoma. 2. Distended colon with air-fluid levels measuring up to 8.1 cm in diameter could represent recent diarrhea. Colonic ileus can not be excluded. 3. Hepatomegaly with fatty infiltration. 4. Right nephrolithiasis without hydronephrosis. 5. Inguinal hernias, bilaterally. 6. Right basilar atelectasis with nodular configuration. Repeat chest CT in 3 months is recommended. 7. Colonic diverticulosis without acute diverticulitis. Reading Location: [facility] [address] Physical Exam Narrative General: Alert, oriented, no apparent distress HEENT: Atraumatic, normocephalic Eyes: Anicteric, normal conjunctiva, extraocular movements grossly intact Neck: Supple Respiratory: Clear to auscultation bilaterally, normal respiratory effort Cardiovascular: Regular rate and rhythm GI: Somewhat firm and right lower quadrant with pain on palpation and surrounding bruising Extremities: No edema Musculoskeletal: Moving all extremities Neuro: No overt focal neurological deficits Skin: Bruising slightly in midline, lateral to the right rectus muscle and inferior Psych: Cooperative Assessment & Plan Assessment/Plan (1) Rectus sheath hematoma: PLAN: Plan # Rectus sheath hematoma - Patient with spontaneous rectal sheath hematoma presented with right lower abdominal bruising, swelling, pain - CT demonstrated 6.7 cm isodense lesion in right lower anterior abdominal wall consistent with rectus sheath hematoma - Hemoglobin 11.4 on admission and this was his baseline, Eliquis held, this a.m. CBC revealed hemoglobin of 9.3 - Patient does report pain is now improving however, given symptomatic improvement suspect that this a.m. hemoglobin reflects the active bleeding from yesterday that had not yet been reflected on the initial hemoglobin - Will keep patient today off Eliquis and repeat hemoglobin in the a.m., if any further drop may need to consider IR intervention - If patient has any increased pain, lightheadedness, other concerns we will repeat hemoglobin today with further plan pending clinical course - Again at this time patient with no lightheadedness and pain is decreasing so do not feel patient needs urgent transfer for IR intervention # Recent right lower extremity DVT up to level of common femoral vein - Diagnosed in May of this year and has been on Eliquis since that time with improvement - Follows in the vascular surgery office and was supposed to be on Eliquis 5 mg twice daily for minimum of 6 months with consideration of decreasing to 2.5 twice daily thereafter but was still on 5 twice daily - Holding Eliquis at this time, patient will need to follow-up with vascular surgeon on discharge to decide on further anticoagulation/possible filter/further management, discussed with patient that ultimately would leave this up to the discretion of his outpatient physician # Constipation versus ileus - Patient was constipated for 5 days prior to arrival which is abnormal for him, CT showed air-fluid levels with concern for recent diarrhea versus colonic ileus and general surgery, contacted in the ED, recommended supportive care at that time - This a.m. patient has had several loose stools, is now having transit, will monitor bowel movements - Will need to monitor closely as patient is on narcotics given patient is now having diarrhea hesitant to schedule bowel regimen - Senna docusate as needed # Right basilar atelectasis with nodule configuration - Seen on base of CT scan, it is recommended patient have a chest CT in 3 months, this can be done through his PCPs office #Hypertension - Systolic blood pressure only 107 this a.m., home amlodipine held, continue to monitor BP and can add back as needed #DVT ppx: SCDs Rylie Arreaga MD Charges/Coding Visit Charges Inpatient E&M: 95884 Subs Hosp L2
--- NOTE | 2024-11-03 11:01 | CASEMGMT ---
Insurance review for hospitals In-network with?[facility] if transfer is recommended is as follows: [facility], [facility], [place], [facility], [facility], [facility], , [place] and [place].
[2024-11-03] MEDS: MELATONIN 3 MG TABLET PO (20:07)
--- NOTE | 2024-11-03 22:25 | NURSING ---
Pt called out that he can not wear the scd. It wanted them off. stated i will not be able to sleep with theses on. I want them off. scd removed
[2024-11-03] MEDS: oxyCODONE 5 MG Tablet PO (22:51)
[2024-11-04] VITALS (7 sets, daily range): BP systolic 121–149; BP diastolic 68–77; PULSE 68–72; RESP 16–20; TEMP 36.3–37.2; O2SAT 95–97; BMI 24.3
[2024-11-04 06:08] LABS: Hematocrit 30.6 % (40-54); Hemoglobin 10.2 g/dL (13.0-16.5); Mean Corp Hgb Conc 33.3 g/dL (32-36); Mean Corpuscular Hgb 34.6 pg (27.0-32.0); Mean Corpuscular Volume 103.7 fL (80-94); Mean Platelet Vol. 10.5 fl (6.2-12.0); Platelet Count 182 K/mm3 (150-450); RBC Distribution Width CV 16.4 % (11.6-14.6); Red Blood Count 2.95 M/mm3 (4.6-6.2); White Blood Count 5.3 K/mm3 (4.4-11.0)
[2024-11-04 07:27] LABS: Anion Gap 8 (5-15); BUN 21 mg/dL (4-19); BUN/Creat Ratio 19.5 RATIO (10-20); Calcium,Total 8.3 mg/dL (7.6-11.0); Carbon Dioxide 27.2 mmol/L (21.0-32.0); Chloride 98 mmol/L (98-108); Creatinine, Serum 1.08 mg/dL (0.70-1.20); EST Glomerular Filtration Rate 66 (>60); Estimated Creatinine Clearance 41.92 ml/min (50-250); Glucose 96 mg/dL (70-99); Potassium 4.4 mmol/L (3.3-5.1); Sodium Level 133 mmol/L (133-145)
[2024-11-04] MEDS: Ensure Plus High Protein 120 ML LIQUID PO ×3 (07:47→16:37)
--- NOTE | 2024-11-04 11:24 | VDLE_ITS ---
Reason For Study Reason For Study: Swelling RIGHT LEFT GSV is normal. GSV is normal. CFV is compressible, spontaneous, phasic, competent CFV is compressible, spontaneous, phasic, competent, and demonstrates normal augmentation. and demonstrates normal augmentation. Rt FV prox is partially compressible FV is compressible, spontaneous, phasic, competent Rt FV mid/distal is non compressible and demonstrates normal augmentation. Rt T/P Trunk is non compressible. POP V is compressible, spontaneous, phasic, competent POP V is compressible, spontaneous, phasic, competent and demonstrates normal augmentation. and demonstrates normal augmentation. T/P Trunk is compressible. PTV is compressible. PTV is compressible. RT PerV is compressible. LT PerV is compressible. Procedure This is a venous duplex using B-mode, color flow and spectral Doppler. Exam performed portable in patient room. A preliminary report was called and/or faxed to Dr. Neal. VL/Venous Duplex US - Omar Extrem Interpretation Summary Acute deep vein thrombosis noted in the right femoral vein, tibioperoneal trunk vein. Chronic deep vein thrombosis noted in right femoral vein. Ordering Physician: Daniel Neal Referring Physician: Shoshana Ulrich Performed By: Alyce Loredo, KRISHNA, RVT
--- NOTE | 2024-11-04 11:39 | NURSING ---
pt informed will not be discharged until after the venous Doppler study is done.
[2024-11-04 14:19] LABS: Partial Thromboplast Time 24.9 Seconds (24.1-36.2)
[2024-11-04] MEDS: 0.9% Saline Lock 10 ML Syringe IV (15:08)
[2024-11-04] MEDS: HEPARIN/D5w 25,000 UNITS 25,000 UNITS/250 ML IV.SOLN. 10 UNITS CONT INF (15:17)
[2024-11-04 15:50] LABS: International Normalized Ratio 0.9; Prothrombin Time (Protime)PT. 12.4 SECONDS (11.7-14.9)
--- NOTE | 2024-11-04 17:23 | PCM.PN.HOSP ---
Reason for Visit Reason for Visit: Diagnoses Contusion of abdominal wall, initial encounter (11/03/24) Subjective Subjective Patient was seen and examined today, earlier today he appeared to be confused and thought he was being discharged home. When I asked the patient why he thought he was being discharged he acted confused and was unable to answer. Patient underwent a venous duplex scan today which showed a clot in his right leg, this clot appeared to be Frasch and I talked with vascular surgery about it and they recommended starting the patient on heparin using the stroke dose protocol. I went over this finding with the patient and told him that we needed to place him back on anticoagulation. I ordered a CBC for later on today. Patient will need to have a vena caval filter inserted tomorrow. I have consulted vascular surgery about this. Objective Data Objective Data Vital Signs: Vital Signs Temp Pulse Resp BP Pulse Ox O2 Del Method O2 Flow Rate 97.5 F L 70 20 H 121/71 H 95 Room Air 2 11/04/24 14:46 11/04/24 14:49 11/04/24 14:46 11/04/24 14:46 11/04/24 14:46 11/04/24 14:46 11/04/24 07:43 Oxygen Flow Rate (L/min) 2 Oxygen Delivery Method Room Air Weight: 66.361 kg Body Mass Index (BMI) 24.3 Intake & Output: Intake and Output for Last 24 Hours 11/02/24 11/03/24 11/04/24 23:59 23:59 23:59 Intake Total 1150 / 1150 150 / 350 350 / 350 Output Total 900 / 900 Balance 1150 / 1150 150 / -250 -550 / -550 Lab / Micro Data 11/04/24 05:25 11/04/24 05:25 Labs: Laboratory Results - last 24 hr 11/04/24 05:25: WBC 5.3, RBC 2.95 L, Hgb 10.2 L, Hct 30.6 L, MCV 103.7 H, MCH 34.6 H, MCHC 33.3, RDW Std Deviation 62.0 H, RDW Coeff of Beth 16.4 H, Plt Count 182, MPV 10.5, Sodium 133, Potassium 4.4, Chloride 98, Carbon Dioxide 27.2, Anion Gap 8, BUN 21 H, Creatinine 1.08, Estim Creat Clear Calc 41.92 L, Est GFR (MDRD) Non-Af 66, BUN/Creatinine Ratio 19.5, Glucose 96, Calcium 8.3 11/04/24 14:00: PT 12.4, INR 0.9, APTT 24.9 Physical Exam Const alert and no apparent distress General Appearance: cooperative, well kempt and well developed Orientation / Consciousness: awake, oriented to person and oriented to place HEENT normocephalic, head/scalp atraumatic and moist oral mucous membranes Eyes PERRL, EOMs intact bilaterally and conjunctivae normal Neck supple, no JVD, thyroid normal and no carotid bruits General: trachea midline Resp normal respiratory effort, no retractions, no use of accessory muscles and clear to auscultation bilaterally Auscultation: Negative for rales, rhonchi or wheezes Cardio regular rate, regular rhythm, S1 normal heart sound, S2 normal heart sound, no murmurs, no rub and no gallops GI normal to inspection, nondistended, normoactive bowel sounds, soft to palpation, non-tender and non-distended Extremity no clubbing, cyanosis or edema Skin no rashes or lesions noted General Skin Exam: no breakdown Neuro CN's II-XII intact bilaterally, no focal motor deficits and no sensory deficits noted Sensorium / Orientation: awake, alert, oriented to person and oriented to place Speech: speech normal Psych affect normal Assessment & Plan Assessment/Plan (1) Rectus sheath hematoma: PLAN: Plan 1. Rectus sheath hematoma-patient's CBC will need to be monitored now that he is back on anticoagulation #2 acute anemia secondary to rectus sheath hematoma-not requiring blood transfusion, patient's hemoglobin today was 10.2 #3 VTE of the right leg-patient will be started on stroke dose heparin IV, PTT will be monitored, patient will need a vena caval filter inserted tomorrow #4 essential hypertension-patient will stay on his present medications for blood pressure Total clinical time spent by myself addressing the patient's medical issues, reviewing all of his data, and collaborating with patient's care team: 35 minutes Charges/Coding Visit Charges Inpatient E&M: 95249 Subs Hosp L2
[2024-11-04] MEDS: oxyCODONE 5 MG Tablet PO (20:38)
[2024-11-04] MEDS: MELATONIN 3 MG TABLET PO (20:38)
[2024-11-04 21:37] LABS: Absolute Lymphocyte Count 0.71 X10^3/uL (0.83-4.51); Absolute Neutrophil Count 3.8 X10^3/uL (2.0-7.7); Basophil# 0.02 X10^3/uL; Basophil% 0.4 % (0-1); Eosinophil# 0.12 X10^3/uL; Eosinophils% 2.3 % (0-5); Hematocrit 29.2 % (40-54); Hemoglobin 9.6 g/dL (13.0-16.5); Lymphocyte # 0.71 X10^3/ul (0.83-4.51); Lymphocyte % 13.8 % (19-41); Mean Corp Hgb Conc 32.9 g/dL (32-36); Mean Corpuscular Hgb 33.8 pg (27.0-32.0); Mean Corpuscular Volume 102.8 fL (80-94); Mean Platelet Vol. 10.4 fl (6.2-12.0); Monocyte# 0.39 X10^3/uL; Monocyte% 7.6 % (0-10); NRBC Flagged by Analyzer 0 % (0-5); Neutrophil # 3.83 X10^3/uL (2.7-7.7); Neutrophil % 74.7 % (47-70); Platelet Count 183 K/mm3 (150-450); RBC Distribution Width SD 61.1 fl (35.1-43.9); Red Blood Count 2.84 M/mm3 (4.6-6.2); White Blood Count 5.1 K/mm3 (4.4-11.0)
[2024-11-05] VITALS (8 sets, daily range): BP systolic 118–139; BP diastolic 62–77; PULSE 64–84; RESP 15–18; TEMP 36.4–36.9; O2SAT 92–98; BMI 24.3
[2024-11-05] MEDS: oxyCODONE 5 MG Tablet PO ×3 (01:37→21:21)
[2024-11-05 03:29] LABS: Absolute Neutrophil Count 3.4 X10^3/uL (2.0-7.7); Basophil# 0.02 X10^3/uL; Basophil% 0.4 % (0-1); Eosinophil# 0.12 X10^3/uL; Eosinophils% 2.5 % (0-5); Hematocrit 28.2 % (40-54); Hemoglobin 9.5 g/dL (13.0-16.5); Mean Corp Hgb Conc 33.7 g/dL (32-36); Mean Corpuscular Hgb 34.4 pg (27.0-32.0); Mean Corpuscular Volume 102.2 fL (80-94); Mean Platelet Vol. 10.2 fl (6.2-12.0); Monocyte# 0.35 X10^3/uL; Monocyte% 7.4 % (0-10); NRBC Flagged by Analyzer 0 % (0-5); Neutrophil # 3.37 X10^3/uL (2.7-7.7); Neutrophil % 71.6 % (47-70); Platelet Count 172 K/mm3 (150-450); RBC Distribution Width SD 60.4 fl (35.1-43.9); Red Blood Count 2.76 M/mm3 (4.6-6.2); White Blood Count 4.7 K/mm3 (4.4-11.0)
[2024-11-05 04:56] LABS: Partial Thromboplast Time 79.5 Seconds (24.1-36.2)
[2024-11-05 08:14] LABS: Cholesterol 187 mg/dL (<=200); High Density Lipoprotein 65 mg/dL; Low Density Lipoprotein Calc. 104 mg/dL; Triglycerides 89 mg/dL; Very Low Density Lipoprotein 18 mg/dL (5-40); cholesterol:hdl ratio screen 2.87
--- NOTE | 2024-11-05 10:05 | EX.PCM.CON.S ---
Assessment & Plan Assessment/Plan (1) DVT (deep venous thrombosis): QUALIFIERS: DVT location: lower extremity Affected thrombotic vein of extremity: popliteal Chronicity: acute Laterality: right Qualified Code(s): I82.431 - Acute embolism and thrombosis of right popliteal vein PLAN: -IVC filter HPI Consult Data Date of Consult: 11/05/24 HPI Narrative HPI Narrative: DESMOND WINCHESTER, is a 89 M who presents with right sided abdominal pain and found to have rectus sheath hematoma. He is on Eliquis for unprovoked extensive RLE DVT in early June. Eliquis has been held since admission 11/02. Duplex revealed mostly chronic DVT with some acute thrombus in more distal vessels. Given interval since acute DVT which was unprovoked, the unprovoked rectus sheath bleed, and presence of acute component of thrombus he is felt to be appropriate for IVC filter placement. 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 Wears glasses Wears hearing aid in both ears Cancer Alcohol abuse Hx of gout Heartburn CPAP (continuous positive airway pressure) dependence Shortness of breath on exertion Smoker Emphysema, unspecified Hypertension Restless legs Injury of back Home Medications ?Medication ?Instructions ?Recorded ?Last Taken ?Type albuterol sulfate 90 mcg/actuation 1 puff inhalation Q4H PRN 09/08/21 Unknown History aerosol inhaler sob/wheezing amlodipine 5 mg tablet 5 mg PO DAILY 07/02/22 09/18/23 History artifi.tears(hypromellose)(PF) 1.7 1 drp EACH EYE DAILY PRN dry eyes 09/19/23 Unknown History % eye drops with applicator oxybutynin chloride 10 mg 10 mg PO DAILY 09/19/23 Unknown History tablet,extended release 24 hr nystatin 100,000 unit/gram topical 1 applic topical QDAY PRN yeast 07/13/24 Unknown History powder apixaban 5 mg tablet (Eliquis) 5 mg PO BID #180 tabs 07/25/24 Unknown Rx oxycodone-acetaminophen 5 mg-325 1 tab PO TID PRN PRN pain 11/02/24 Unknown History mg tablet Allergy/AdvReac Type Severity Reaction Status Date / Time ibuprofen (From Motrin) Allergy Swelling Verified 11/02/24 15:49 Family History Mother , 61 Cancer Father , 91 AD (Alzheimer's disease) Surgical History History of hand surgery S/P insertion of spinal cord stimulator History of varicose vein stripping Hx of myringotomy History of parotidectomy History of esophagogastroduodenoscopy (EGD) History of cystoscopy Hx of basal cell carcinoma excision Hx of finger joint replacement Hx of decompressive lumbar laminectomy Social History household members: spouse and none housing: house current occupational status: retired pets and animals: Yes pets and animals: dog(s) Smoking Status: Current every day smoker tobacco type: cigarettes alcohol intake: current details: On avg a couple drinks each evening substance use type: does not use caffeine: Yes Type: coffee Number of servings: 2 do you feel safe at home: Yes ROS Constitutional Constitutional: Denies chills, fever(s), frequent falls, lethargy or weakness Eyes Eyes: Denies blind spots, change in vision or loss of vision ENT HEENT: Denies bleeding gums, hoarseness or sore throat Cardiovascular Cardiovascular: Denies abdominal pain, bluish discoloration of hand/feet, chest pain with activity, claudication, cold extremities, cyanosis, dyspnea on exertion, erythema on extremities, irregular heart rhythm, leg edema, leg ulcers, numbness in extremities or weakness in extremities Respiratory/Chest Respiratory/Chest: Denies cough, excessive phlegm production, shortness of breath at rest, shortness of breath with exertion or wheezing Gastrointestinal Gastrointestinal: Reports abdominal pain; Denies anorexia, change in stool character, constipation, diarrhea, melena or rectal bleeding Genitourinary Genitourinary: Denies dysuria or hematuria Musculoskeletal Musculoskeletal: Denies abnormal gait Integumentary Integumentary: Reports other Details: ; Denies erythema, non-healing lesions or wounds Neurologic Neurologic: Denies abnormal speech, focal weakness, headache(s), loss of vision, numbness, paresthesias or sensory deficit Hematologic/Lymphatic Hematologic/Lymphatic: Denies easy bleeding, easy bruising or lymphadenopathy Physical Exam Const alert, oriented x3, no apparent distress and healthy appearing General Appearance: cooperative; Negative for combative or lethargic Orientation / Consciousness: awake Exam Limitations: no limitations HEENT Head and Scalp: normocephalic and atraumatic Eyes EOMs intact bilaterally General Eye: normal appearance of both eyes Neck full ROM General: trachea midline Resp normal respiratory effort and no use of accessory muscles Effort and Inspection: Negative for labored, stridor or audible wheezes Cardio regular rate and regular rhythm Peripheral Pulses: femoral pulses present GI non-distended Palpation: tender Back/Spine Cervical Spine: cervical ROM normal Extremity full ROM, normal capillary refill and no clubbing, cyanosis or edema Skin no rashes or lesions noted and no wounds Neuro oriented x3, CN's II-XII intact bilaterally, no focal motor deficits and no sensory deficits noted Psych thought process normal, cooperative, affect normal, speech normal and activity/motor behavior normal Lab / Micro Data 11/05/24 03:14 11/04/24 05:25 Labs: Laboratory Results - last 24 hr 11/04/24 14:00: PT 12.4, INR 0.9, APTT 24.9 11/04/24 21:15: WBC 5.1, RBC 2.84 L, Hgb 9.6 L, Hct 29.2 L, MCV 102.8 H, MCH 33.8 H, MCHC 32.9, RDW Std Deviation 61.1 H, RDW Coeff of Beth 16.0 H, Plt Count 183, MPV 10.4, Immature Gran % (Auto) 1.200 H, Neut % (Auto) 74.7 H, Lymph % (Auto) 13.8 L, [place] % (Auto) 7.6, Eos % (Auto) 2.3, Baso % (Auto) 0.4, Absolute Neuts (auto) 3.8, Absolute Lymphs (auto) 0.71 L, Nucleated RBC % 0, APTT 62.0 H 11/05/24 03:14: WBC 4.7, RBC 2.76 L, Hgb 9.5 L, Hct 28.2 L, MCV 102.2 H, MCH 34.4 H, MCHC 33.7, RDW Std Deviation 60.4 H, RDW Coeff of Beth 16.0 H, Plt Count 172, MPV 10.2, Immature Gran % (Auto) 1.100 H, Neut % (Auto) 71.6 H, Lymph % (Auto) 17.0 L, [place] % (Auto) 7.4, Eos % (Auto) 2.5, Baso % (Auto) 0.4, Absolute Neuts (auto) 3.4, Absolute Lymphs (auto) 0.80 L, Nucleated RBC % 0, APTT 79.5 H, Triglycerides 89, Cholesterol 187, LDL Cholesterol, Calc 104, VLDL Cholesterol 18, HDL Cholesterol 65, Cholesterol/HDL Ratio 2.87
[2024-11-05 10:47] LABS: Partial Thromboplast Time 68.6 Seconds (24.1-36.2)
[2024-11-05] MEDS: 0.9% Saline Lock 10 ML Syringe IV ×2 (11:29→17:17)
--- NOTE | 2024-11-05 15:53 | OP.PCM_ITS ---
Operative Report (Standard) Operative Information Date of Procedure: 11/05/24 Pre-Operative Diagnosis: DVT, rectus sheath hematoma Post-Operative Diagnosis: same Surgery/Procedure Performed: insertion inferior vena cava filter claims representative: No Type of Anesthesia: Local and Sedation,Conscious Procedure Start Time: 15:00 Procedure Stop Time: 15:30 Select all DRAINS/GRAFTS/IMPLANTS that apply: Implanted device Implanted device details: Cook Celect filter Estimated Blood Loss: 2 Specimen collected: No Description of surgery: HPI: Patient is an 89-year-old male with a prior unprovoked extensive right lower extremity DVT who was on Eliquis when he developed a spontaneous right rectus sheath hematoma. Repeat ultrasound revealed what appeared to be more acute appearing thrombus in the distal right lower extremity veins and given the amount of time surpassed since the original event is felt that a filter is appropriate. He is taken now for IVC filter placement. Description of procedure: Upon obtaining informed consent and verification c orrect patient procedure and site the patient was taken to the [employer] [facility] was positioned prepped and draped in usual sterile fashion. Time was performed consultation administered Versed and fentanyl. Skin overlying the right internal jugular vein was anesthetized 1% lidocaine the vessel accessed under ultrasound guidance with a micropuncture needle wire. This then exchanged for micropuncture sheath through which injection venogram was performed revealing satisfactory positioning no extravasation or dissection. Through the micropuncture sheath a J-wire was advanced however given angulation this was not able to traverse into the inferior vena cava so the J-wire was exchanged for a Glidewire which advanced with some redirecting into the inferior vena cava. The micropuncture sheath was then exchanged for a straight flush catheter advanced over the wire and positioned in the inferior vena cava. In this location digital traction venacavogram was performed which revealed patent vena cava with normal caliber though there was significant displacement from the aorta secondary to spine scoliosis. Through the straight flush catheter the J-wire was advanced and the straight flush catheter exchanged for the dilator for the filter delivery system. The dilator was then withdrawn and the filter delivery sheath advanced into position at the L2 vertebral body. Through the sheath subtraction venacavogram was performed and the confluence of the renal veins were marked. The Cook Celect filter was then advanced in position below the lowest renal vein and deployed. Completion venacavogram confirmed satisfactory position with no significant tilt. The sheath was then withdrawn a minute pressure held until hemostasis was obtained. The patient was then taken the recovery area prior to return to the medical floor. Surgical Findings: patent, normal caliber IVC; displaced by aorta/spine scoliosis filter below lowest renal vein Complications Complications: No
--- NOTE | 2024-11-05 16:18 | PN.HOSP_ITS ---
Reason for Visit Reason for Visit: Diagnoses Acute embolism and thrombosis of right popliteal vein (11/03/24) Contusion of abdominal wall, initial encounter (11/03/24) Subjective Subjective Patient was seen and examined today, I talked briefly with vascular surgery, he is going to have a vena caval filter placed today. Patient's hemoglobin appears to be stable at this time Objective Data Objective Data Vital Signs: Vital Signs Temp Pulse Resp BP Pulse Ox O2 Del Method O2 Flow Rate 98.2 F 71 18 122/71 H 98 Room Air 2 11/05/24 11:33 11/05/24 11:33 11/05/24 11:33 11/05/24 11:33 11/05/24 11:33 11/05/24 11:33 11/05/24 02:20 Oxygen Flow Rate (L/min) 2 Oxygen Delivery Method Room Air Weight: 66.361 kg Body Mass Index (BMI) 24.3 Intake & Output: Intake and Output for Last 24 Hours 11/03/24 11/04/24 11/05/24 23:59 23:59 23:59 Intake Total 150 / 350 409.67 / 409.67 130.5 / 130.5 Output Total 900 / 900 Balance 150 / -250 -490.33 / -490.33 130.5 / 130.5 Lab / Micro Data 11/05/24 03:14 11/04/24 05:25 Labs: Laboratory Results - last 24 hr 11/04/24 21:15: WBC 5.1, RBC 2.84 L, Hgb 9.6 L, Hct 29.2 L, MCV 102.8 H, MCH 33.8 H, MCHC 32.9, RDW Std Deviation 61.1 H, RDW Coeff of Beth 16.0 H, Plt Count 183, MPV 10.4, Immature Gran % (Auto) 1.200 H, Neut % (Auto) 74.7 H, Lymph % (Auto) 13.8 L, [place] % (Auto) 7.6, Eos % (Auto) 2.3, Baso % (Auto) 0.4, Absolute Neuts (auto) 3.8, Absolute Lymphs (auto) 0.71 L, Nucleated RBC % 0, APTT 62.0 H 11/05/24 03:14: WBC 4.7, RBC 2.76 L, Hgb 9.5 L, Hct 28.2 L, MCV 102.2 H, MCH 34.4 H, MCHC 33.7, RDW Std Deviation 60.4 H, RDW Coeff of Beth 16.0 H, Plt Count 172, MPV 10.2, Immature Gran % (Auto) 1.100 H, Neut % (Auto) 71.6 H, Lymph % (Auto) 17.0 L, [place] % (Auto) 7.4, Eos % (Auto) 2.5, Baso % (Auto) 0.4, Absolute Neuts (auto) 3.4, Absolute Lymphs (auto) 0.80 L, Nucleated RBC % 0, APTT 79.5 H, Triglycerides 89, Cholesterol 187, LDL Cholesterol, Calc 104, VLDL Cholesterol 18, HDL Cholesterol 65, Cholesterol/HDL Ratio 2.87 11/05/24 10:20: APTT 68.6 H Physical Exam Narrative alert and no apparent distress General Appearance: cooperative, well kempt and well developed Orientation / Consciousness: awake, oriented to person and oriented to place HEENT normocephalic, head/scalp atraumatic and moist oral mucous membranes Eyes PERRL, EOMs intact bilaterally and conjunctivae normal Neck supple, no JVD, thyroid normal and no carotid bruits General: trachea midline Resp normal respiratory effort, no retractions, no use of accessory muscles and clear to auscultation bilaterally Auscultation: Negative for rales, rhonchi or wheezes Cardio regular rate, regular rhythm, S1 normal heart sound, S2 normal heart sound, no murmurs, no rub and no gallops GI normal to inspection, nondistended, normoactive bowel sounds, soft to palpation, non-tender and non-distended Extremity no clubbing, cyanosis or edema Skin no rashes or lesions noted General Skin Exam: no breakdown Neuro CN's II-XII intact bilaterally, no focal motor deficits and no sensory deficits noted Sensorium / Orientation: awake, alert, oriented to person and oriented to place Speech: speech normal Psych affect normal Assessment & Plan Assessment/Plan (1) Rectus sheath hematoma: PLAN: Plan 1. Rectus sheath hematoma-patient's CBC will need to be monitored now that he is back on anticoagulation #2 acute anemia secondary to rectus sheath hematoma-not requiring blood transfusion, patient's hemoglobin today was 9.5 #3 VTE of the right leg-patient now has a vena caval filter, his heparin will be discontinued #4 essential hypertension-patient will stay on his present medications for blood pressure Total clinical time spent by myself addressing the patient's medical issues, reviewing all of his data, and collaborating with patient's care team: 35 minutes Charges/Coding Visit Charges Inpatient E&M: 45577 Subs Hosp L2
[2024-11-05] MEDS: Ensure Plus High Protein 120 ML LIQUID PO (17:34)
[2024-11-05] MEDS: Acetaminophen 325 MG Tablet 650 MG PO (21:22)
[2024-11-06] MEDS: oxyCODONE 5 MG Tablet PO (01:55)
[2024-11-06 03:00] VITALS: RESP 15
[2024-11-06 09:07] VITALS: BP 117/76; PULSE 95; RESP 16; TEMP 37; O2SAT 97
[2024-11-06 09:10] VITALS: BP 117/76; PULSE 95; RESP 16; TEMP 37; O2SAT 97
[2024-11-06] MEDS: Ensure Plus High Protein 120 ML LIQUID PO (09:50)
--- NOTE | 2024-11-06 10:39 | DCINST_ITS ---
Discharge Instructions Diet Discharge Diet: No restrictions DC O2, CPAP, BIPAP needs Home O2 Discharge instructions: No Dressing / Incision Discharge Activity: Return to Normal Activity Weight Bearing Status: Full weight bearing Follow Up Care Test Results: Test results from this visit will be discussed in further detail at your follow- up appointment, if applicable. Discharge Plan Admission Admit Date/Time: 11/03/24 15:03 Primary Reason for Your Visit: Rectus sheath hematoma, anemia, acute VTE Attending Provider: Daniel Neal Primary Care Provider: Shoshana Ulrich Consulting Providers: Raghav Serrano; Rylie Arreaga; Santana Mason Instructions Additional Instructions / Restrictions: Remain off Eliquis, you will follow-up with Dr. Mason and he will give you instructions when to resume it Discharge Orders/Prescriptions Prescriptions: Continued amlodipine 5 mg tablet 5 mg PO DAILY nystatin 100,000 unit/gram powder 1 applic topical QDAY PRN (Reason: yeast) albuterol sulfate 90 mcg/actuation HFA aerosol inhaler 1 puff INHALATION Q4H PRN (Reason: sob/wheezing) oxybutynin chloride 10 mg tablet extended release 24hr 10 mg PO DAILY artifi.tears(hypromellose)(PF) 1.7 % drops with applicator 1 drp EACH EYE DAILY PRN (Reason: dry eyes) oxycodone-acetaminophen 5-325 mg tablet 1 tab PO TID PRN PRN (Reason: pain) Discontinued Eliquis 5 mg tablet 5 mg PO BID Qty: 180 1RF Referrals / Follow Up: Santana Mason MD [Med Staff - Active Staff] - See Referral Note (In 3 weeks) Shoshana Ulrich MD [Primary Care Provider] - Within 2 Weeks Disposition Disposition (needs filled in before D/C Order can be placed): Home, Self Care
--- NOTE | 2024-11-06 10:42 | DS.PCM_ITS ---
Providers Date of Admission: 11/03/24 Date of Discharge: 11/06/24 Primary Care Physician: Dr. Shoshana Ulrich MD Consultations 11/04/24 13:44 Consult: Vascular Surgery Routine Consulting Provider: Santana Mason Reason for Consult: need for vena caval filter EMERGENT Consult: No MD Notified: Yes Date Notified: 11/04/24 Time Notified: 13:45 Method of Notification: Verbal Reason For Visit: 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 Diagnosis Discharge Diagnosis (1) Rectus sheath hematoma: Status: Acute Code(s): S30.1XXA - Contusion of abdominal wall, initial encounter Plan 1. Rectus sheath hematoma-patient's CBC will need to be monitored now that he is back on anticoagulation #2 acute anemia secondary to rectus sheath hematoma-not requiring blood transfusion, patient's hemoglobin today was 9.5 #3 VTE of the right leg-patient now has a vena caval filter, his heparin will be discontinued #4 essential hypertension-patient will stay on his present medications for blood pressure Total clinical time spent by myself addressing the patient's medical issues, reviewing all of his data, and collaborating with patient's care team: 35 minutes Medications at Discharge Home Medications albuterol sulfate 90 mcg/actuation aerosol inhaler 1 puff inhalation Q4H PRN sob/wheezing 09/08/21 amlodipine 5 mg tablet 5 mg PO DAILY 07/02/22 artifi.tears(hypromellose)(PF) 1.7 % eye drops with applicator 1 drp EACH EYE DAILY PRN dry eyes 09/19/23 oxybutynin chloride 10 mg tablet,extended release 24 hr 10 mg PO DAILY 09/19/23 nystatin 100,000 unit/gram topical powder 1 applic topical QDAY PRN yeast 07/13/24 oxycodone-acetaminophen 5 mg-325 mg tablet 1 tab PO TID PRN PRN pain 11/02/24 Hospital Course Operations None Procedures IVC filter placement and - Summary of Care Provided Minutes Spent on Discharge: 32 Hospital Course: This 89-year-old white male was seen in the emergency room at [facility] with worsening right lower quadrant abdominal pain. Patient had been diagnosed with a lower extremity VTE in May 2024, he had been on Eliquis since that time. CT of the abdomen and pelvis showed a 6.7 cm isodense lesion of the right aspect of the lower anterior abdominal wall. This was concerning for a rectus sheath hematoma. Patient's Eliquis was held, patient CBC was monitored. There was not a significant drop in the patient's hemoglobin that warranted a transfusion. Patient underwent a duplex study of his lower extremities, there was noted to be the presence of a right leg VTE and vascular surgery was consulted and recommended a vena caval filter be placed. On 11/06/2024, patient was seen and examined: On examination he appeared in good health and spirits. Vital signs as documented. Skin warm and dry and without overt rashes. Neck without JVD, neck was supple, trachea midline, thyroid was normal. Lungs clear bilaterally, normal air movement was noted. Heart exam notable for regular rhythm, normal sounds and absence of murmurs, rubs or gallops. Abdomen unremarkable and without evidence of organomegaly, masses, or abdominal aortic enlargement. Bowel sounds are present, abdomen is not distended. Extremities nonedematous, no cyanosis was noted, no clubbing was noted. Neuro: Cranial nerves II through XII are grossly intact, no focal motor deficits were noted, sensation to light touch and pinprick intact, motor exam 5/5 throughout. Psych: Patient is alert and oriented x3, he does not appear anxious or depressed, he does not appear agitated. Patient was discharged home in stable condition on 11/06/2024. Weight / BMI Weight Weight: 66.361 kg Body Mass Index (BMI) 24.3 ABG / Lab / Microbiology Data 11/05/24 03:14 11/04/24 05:25 Laboratory: Laboratory Results - last 24 hr 11/05/24 10:20: APTT 68.6 H Radiography Diagnostic Testing: Radiology Impression Venous Doppler Study 11/04/24 11:24 Interpretation Summary Acute deep vein thrombosis noted in the right femoral vein, tibioperoneal trunk vein. Chronic deep vein thrombosis noted in right femoral vein. Ordering Physician: Daniel Neal Referring Physician: Shoshana Ulrich Performed By: Alyce Loredo, KRISHNA, RVT D/C Instructions Discharge Diet: No restrictions Weight Bearing Status: Full weight bearing DC O2, CPAP, BIPAP Needs Home O2 Discharge instructions: No Meaningful Use Info Meaningful Use Meaningful Use Diagnoses (Choose all that apply): VTE Ischemic Stroke Statin Dosing Therapy Reference: STATIN DOSE THERAPY REFERENCE: * Patients > 75 years receive moderate or high dose statin therapy. * Patients 75 years or YOUNGER should receive HIGH intensity statin dose unless contraindicated. You will be required to document reason for non-treatment if statin daily dose does not meet guidelines. HIGH DOSE STATIN THERAPY DAILY Atorvastatin > than or = to 40 mg Rosuvastatin > than or = to 20 mg Amlodipine + Atorvastatin > than or = to 2.5/40 mg Ezetimibe + Simvastatin 10/80 mg Simvastatin 80mg VTE Anticoag overlap given w/in hospital stay or rx'd at dc?: No Pt receive overlap for 5 days?: No Reason overlap not ordered, prescribed, or given for 5 days: Medical Contraindication Discharge Plan Admission Admit Date/Time: 11/03/24 15:03 Primary Reason for Your Visit: Rectus sheath hematoma, anemia, acute VTE Attending Provider: Daniel Neal Primary Care Provider: Shoshana Ulrich Consulting Providers: Raghav Serrano; Rylie Arreaga; Santana Mason Instructions Additional Instructions / Restrictions: Remain off Eliquis, you will follow-up with Dr. Mason and he will give you instructions when to resume it Discharge Orders/Prescriptions Prescriptions: Continued amlodipine 5 mg tablet 5 mg PO DAILY nystatin 100,000 unit/gram powder 1 applic topical QDAY PRN (Reason: yeast) albuterol sulfate 90 mcg/actuation HFA aerosol inhaler 1 puff INHALATION Q4H PRN (Reason: sob/wheezing) oxybutynin chloride 10 mg tablet extended release 24hr 10 mg PO DAILY artifi.tears(hypromellose)(PF) 1.7 % drops with applicator 1 drp EACH EYE DAILY PRN (Reason: dry eyes) oxycodone-acetaminophen 5-325 mg tablet 1 tab PO TID PRN PRN (Reason: pain) Discontinued Eliquis 5 mg tablet 5 mg PO BID Qty: 180 1RF Referrals / Follow Up: Santana Mason MD [Med Staff - Active Staff] - 11/21/24 11:30 am (In 3 weeks) Shoshana Ulrich MD [Primary Care Provider] - Within 2 Weeks Disposition Disposition (needs filled in before D/C Order can be placed): Home, Self Care Charges/Coding Visit Charges Inpatient E&M: 22537 Disch Hosp >30min
--- NOTE | 2024-11-06 10:50 | PHA.DC.MR.R ---
Pharmacy [place] Med Reconciliation Pharmacy Service has performed discharge medication reconciliation for this patient. The patient's discharge medication list was reviewed for discrepancies and discrepancies were resolved. Medications at Discharge Home Medications albuterol sulfate 90 mcg/actuation aerosol inhaler 1 puff inhalation Q4H PRN sob/wheezing 09/08/21 amlodipine 5 mg tablet 5 mg PO DAILY 07/02/22 artifi.tears(hypromellose)(PF) 1.7 % eye drops with applicator 1 drp EACH EYE DAILY PRN dry eyes 09/19/23 oxybutynin chloride 10 mg tablet,extended release 24 hr 10 mg PO DAILY 09/19/23 nystatin 100,000 unit/gram topical powder 1 applic topical QDAY PRN yeast 07/13/24 oxycodone-acetaminophen 5 mg-325 mg tablet 1 tab PO TID PRN PRN pain 11/02/24
[2024-11-06 12:00] VITALS: BP 169/67; PULSE 79; RESP 16; TEMP 36.6; O2SAT 93
== END 2024-11-06 13:00 | disposition home or self-care (01) | DRG 813 ==
LOC: ED 15:56 → MS3 19:07
PROVIDERS: Internal Medicine; Physician Assistant; Admitting Provider Hospitalist; Emergency Provider Emergency Medicine; PCP Family Medicine; Referring Provider Emergency Medicine; Visit Provider Internal Medicine
DX: D68.32 Hemorrhagic disorder due to extrinsic circulating 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 (principal); I82.401 Acute embolism and thrombosis of unspecified deep veins of right lower extremity; I82.431 Acute embolism and thrombosis of right popliteal vein; D62 Acute posthemorrhagic anemia; Z66 Do not resuscitate; J43.9 Emphysema, unspecified; I10 Essential (primary) hypertension; M79.81 Nontraumatic hematoma of soft tissue; K59.00 Constipation, unspecified; M41.9 Scoliosis, unspecified; G89.29 Other chronic pain; N32.81 Overactive bladder; Z79.891 Long term (current) use of opiate analgesic; Z79.01 Long term (current) use of 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; R19.03 Right lower quadrant abdominal swelling, mass and lump; Z79.1 Long term (current) use of non-steroidal anti-inflammatories (NSAID); Z79.899 Other long term (current) drug therapy; T45.515A Adverse effect of 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, initial encounter
CPT/HCPCS: 36415; 37191; 74177; 76937; 80048; 80061; 81001; 83605; 85025; 85027; 85610; 85730; 93005; 93970; 94668; 97802; 99152; 99153; 99284; C1880; C1894; Q9967; A4216; C1769; J2405

== ENCOUNTER → 2024-11-12 | Outpatient (CLI) | payer MEDICARE, SELFPAY ==
[2024-11-12 15:09] LABS: Absolute Lymphocyte Count 0.68 X10^3/uL (0.83-4.51); Absolute Neutrophil Count 4.8 X10^3/uL (2.0-7.7); Basophil# 0.03 X10^3/uL; Basophil% 0.5 % (0-1); Eosinophil# 0.05 X10^3/uL; Eosinophils% 0.8 % (0-5); Hematocrit 33.6 % (40-54); Hemoglobin 10.8 g/dL (13.0-16.5); Lymphocyte # 0.68 X10^3/ul (0.83-4.51); Lymphocyte % 11.3 % (19-41); Mean Corp Hgb Conc 32.1 g/dL (32-36); Mean Corpuscular Hgb 34.1 pg (27.0-32.0); Mean Platelet Vol. 10.4 fl (6.2-12.0); Monocyte% 6.7 % (0-10); NRBC Flagged by Analyzer 0 % (0-5); Neutrophil # 4.81 X10^3/uL (2.7-7.7); Platelet Count 267 K/mm3 (150-450); RBC Distribution Width CV 15.9 % (11.6-14.6); RBC Distribution Width SD 61.3 fl (35.1-43.9); Red Blood Count 3.17 M/mm3 (4.6-6.2)
== END | disposition home or self-care (01) ==
LOC: BFHLAB 11:42
PROVIDERS: PCP Family Medicine; Visit Provider Nurse Practitioner Family
DX: D64.9 Anemia, unspecified (principal)
CPT/HCPCS: 36415; 85025

== ENCOUNTER → 2024-12-19 | Outpatient (CLI) | payer MEDICARE, SELFPAY ==
--- NOTE | 2024-12-19 14:08 | VDLE_ITS ---
Reason For Study Reason For Study: Right leg swelling RIGHT LEFT GSV is normal. CFV is compressible, spontaneous, phasic, competent, CFV is patent and compressible. and demonstrates normal augmentation. FV is partially compressible throughout with venous flow noted. POP V is compressible, spontaneous, phasic, competent and demonstrates normal augmentation. T/P Trunk is partially compressible. PTV is compressible. RT PerV is compressible. Procedure This is a venous duplex using B-mode, color flow and spectral Doppler. Exam performed in department. Compared to 11/04/2024. VL/Venous Duplex US, Unilateral Interpretation Summary Chronic deep vein thrombosis noted in the right femoral vein, tibioperoneal jacke nk vein. Decreased thrombus burden from prior study. Ordering Physician: Kristen Amaya Referring Physician: Shoshana Ulrich Performed By: Em Martinez RVT
== END | disposition home or self-care (01) ==
LOC: CVS 14:03
PROVIDERS: PCP Family Medicine; Referring Provider Physician Assistant; Visit Provider Physician Assistant
DX: I82.511 Chronic embolism and thrombosis of right femoral vein (principal); I82.541 Chronic embolism and thrombosis of right tibial vein; I82.551 Chronic embolism and thrombosis of right peroneal vein; I87.2 Venous insufficiency (chronic) (peripheral)
CPT/HCPCS: 93971

== ENCOUNTER → 2025-01-24 | Outpatient (CLI) | payer MEDICARE, SELFPAY ==
[2025-01-24 18:03] LABS: Hematocrit 35.8 % (40-54); Hemoglobin 11.7 g/dL (13.0-16.5); Mean Corp Hgb Conc 32.7 g/dL (32-36); Mean Corpuscular Volume 100.8 fL (80-94); Mean Platelet Vol. 12.8 fl (6.2-12.0); Platelet Count 106 K/mm3 (150-450); RBC Distribution Width CV 15.1 % (11.6-14.6); RBC Distribution Width SD 56.5 fl (35.1-43.9); Red Blood Count 3.55 M/mm3 (4.6-6.2); White Blood Count 5.7 K/mm3 (4.4-11.0)
[2025-01-24 18:19] LABS: AST(SGOT) 25 U/L (<=37); Alanine Aminotransfer ALT/SGPT 19 U/L (<=46); Albumin, Serum 3.8 g/dL (3.4-4.8); Alkaline Phosphatase 57 U/L (40-129); Anion Gap 17 (5-15); BUN 43 mg/dL (4-19); BUN/Creat Ratio 23.8 RATIO (10-20); Calcium,Total 8.8 mg/dL (7.6-11.0); Carbon Dioxide 19.4 mmol/L (21.0-32.0); Chloride 101 mmol/L (98-108); Globulin 2.5 g/dL (2.2-4.2); Glucose 104 mg/dL (70-99); Potassium 3.5 mmol/L (3.3-5.1)
== END | disposition home or self-care (01) ==
LOC: BFHLAB 14:06
PROVIDERS: PCP Family Medicine; Visit Provider Family Medicine
DX: R63.4 Abnormal weight loss (principal); N18.30 Chronic kidney disease, stage 3 unspecified; R11.10 Vomiting, unspecified
CPT/HCPCS: 36415; 80053; 84443; 85027

== ENCOUNTER 2025-02-19 08:25 | Emergency (ER) | payer MEDICARE, SELFPAY ==
[2025-02-19 08:27] VITALS: BP 127/68; PULSE 82; RESP 24; TEMP 36.5; O2SAT 99
[2025-02-19 08:41] VITALS: O2SAT 92
--- NOTE | 2025-02-19 08:50 | EKG12_ITS ---
Test Reason : Blood Pressure : */* mmHG Vent. Rate : 79 BPM Atrial Rate : 79 BPM P-R Int : 266 ms QRS Dur : 132 ms QT Int : 410 ms P-R-T Axes : 70 -87 57 degrees QTcB Int : 470 ms Sinus rhythm with 1st degree A-V block Right bundle branch block Left anterior fascicular block Bifascicular block Septal infarct , age undetermined Abnormal ECG Confirmed by MAGO TAPIA, NINFA ([id number]), supervising editor trailer GIAN LGIHT ([id number]) on 02/20/2025 1:24:33 PM Referred By: REKHA Confirmed By: NINFA MERCEDES MD
--- NOTE | 2025-02-19 08:54 | ED.VIS.DYS ---
HPI History of Present Illness Chief Complaint: Shortness of Breath Narrative Narrative: 89-year-old male presents via EMS with 2 days of shortness of breath and heavy breathing. He has past medical history of COPD, states he does not wear oxygen at home but continues to smoke and has been for the last 69 years. He states he is down to 10 cigarettes a day. He has an inhaler at home, both long-acting and short acting. 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 He states he has had shortness of breath for the last 2 days. No fevers or chills, no cough, no chest pain or leg swelling. 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 Wears glasses Wears hearing aid in both ears Cancer Hx of gout CPAP (continuous positive airway pressure) dependence Shortness of breath on exertion Smoker Emphysema, unspecified Hypertension Restless legs Injury of back Home Medications ?Medication ?Instructions ?Recorded ?Last Taken ?Type amlodipine 5 mg tablet 5 mg PO DAILY BP 07/02/22 02/17/25 History artifi.tears(hypromellose)(PF) 1.7 1 drp EACH EYE DAILY PRN dry eyes 09/19/23 02/17/25 History % eye drops with applicator oxybutynin chloride 10 mg 10 mg PO DAILY OAB 09/19/23 02/17/25 History tablet,extended release 24 hr budesonide 160 mcg-glycopyr 9 2 inh inhalation BID COPD 01/01/25 Unknown History mcg-formot 4.8 mcg/actuation HFA inhaler (Breztri Aerosphere) albuterol sulfate 90 mcg/actuation 2 puff inhalation Q4H PRN 01/18/25 Unknown History aerosol inhaler sob/wheezing nystatin 100,000 unit/gram topical 1 applic topical BID yeast 01/18/25 02/17/25 History powder triamcinolone acetonide 0.1 % 1 applic topical BID PRN for feet 01/18/25 02/17/25 History topical cream apixaban 5 mg tablet (Eliquis) 5 mg PO BID 02/12/25 02/17/25 History prednisone 20 mg tablet 40 mg (2 x 20 mg) PO DAILY 7 days 02/19/25 Unknown Rx #14 tabs Allergy/AdvReac Type Severity Reaction Status Date / Time tiotropium (From Spiriva Allergy Unknown unknown Verified 02/19/25 08:33 with HandiHaler) ibuprofen (From Motrin) Allergy Swelling Verified 02/19/25 08:33 Family History Mother , 61 Cancer Father , 91 AD (Alzheimer's disease) Sister Multiple sclerosis Surgical History S/P TURP (transurethral resection of prostate) History of cataract surgery History of embolic filter insertion Hx of colonoscopy with polypectomy History of hand surgery S/P insertion of spinal cord stimulator History of varicose vein stripping Hx of myringotomy History of parotidectomy History of esophagogastroduodenoscopy (EGD) History of cystoscopy Hx of basal cell carcinoma excision Hx of finger joint replacement Hx of decompressive lumbar laminectomy Social History household members: none housing: house current occupational status: retired pets and animals: Yes pets and animals: dog(s) Smoking Status: Current every day smoker tobacco type: cigarettes Tobacco: How many years used: 69 alcohol intake: current details: On avg a couple drinks each evening substance use type: does not use caffeine: Yes Type: coffee Number of servings: 2 do you feel safe at home: Yes ROS ROS ED ROS Narrative Review of systems positive for shortness of breath, heavy breathing, no chest pain, no fevers or chills, no cough, no leg swelling. No history of CHF. No exacerbating or alleviating factors. Does not wear oxygen at home. EXAM Physical Exam Narrative Exam Narrative: Afebrile. Vital signs noted. Nontoxic-appearing. Cardiovascular examination feels regular rate and rhythm. Lungs are clear to auscultation bilaterally, moving a good amount of air, speaking in full sentences, no respiratory distress. Mild tachypnea. Abdomen soft and nontender without guarding or rebound. Positive bowel sounds. Neurological examination nonfocal, nonlateralizing. Awake, alert, interactive, answering questions appropriately. No appreciable pedal edema bilaterally. Const Vital Signs: 02/19/25 08:27 02/19/25 08:41 02/19/25 09:00 Temperature 97.7 F L Temperature Source Oral Pulse Rate 82 73 Respiratory Rate 24 H 16 Respiratory Effort Short of Breath Respiratory Pattern Tachypnea Normal Blood Pressure 127/68 H Blood Pressure Mean 87 Pulse Ox 99 Oxygen Delivery Method Room Air Room Air 02/19/25 09:28 Temperature Temperature Source Pulse Rate Respiratory Rate Respiratory Effort Respiratory Pattern Blood Pressure Blood Pressure Mean Pulse Ox Oxygen Delivery Method Room Air MDM MDM MDM Narrative Medical decision making narrative: The differential diagnosis includes but not limited to COPD exacerbation versus pneumonia versus pneumothorax. History and physical does not support pneumothorax. EKG was obtained and interpreted by myself independently as normal sinus rhythm at 79 bpm with first-degree AV block. There is a bifascicular block but no acute ST changes. No STEMI. I counseled the patient on stopping smoking. Additionally he was administered an albuterol aerosolized treatment as he has allergy that is unknown to Tiotropium. I reviewed his laboratory work and he has normal white count of 5.6 with hemoglobin 10.5. When compared to prior labs, this is a stable anemia. Platelet count normal at 208. BMP significant for carbon dioxide 14.1 consistent with his COPD/hyperventilation. BUN of 79 and creatinine 1.45. He has had dehydration and acute kidney injury in the past as well. Glucose 125 with anion gap elevated at 18 but I think this is secondary to the low carbon dioxide. Chest x-ray interpreted by myself independently shows no consolidation or pneumonia. I do not feel that antibiotics are indicated. No pneumothorax. I reviewed the radiology report which confirms my independent interpretation. Currently, his pulse ox is 99% on room air. I have low suspicion for pulmonary embolism because he is on anticoagulant, not hypoxic or tachycardic, not having chest pain. Repeat examination shows that he states he still feels that his breathing is fast. However, he is less tachypneic. Patient ambulated with pulse ox. Pulse ox was 96% on room air. At this point in time, I do not feel that he meets any admission/observation criteria. I wrote him a prescription for a burst of steroids. I feel he can be discharged to follow-up. Return instructions to the emergency department reviewed. Disposition is discharged home in stable condition. History & Record Review Discussion w/independent historian: Patient Additional record(s) reviewed:: Prior ED visit Lab Data Attestation: I reviewed the patient's lab results. Labs: Laboratory Results - last 24 hr 02/19/25 09:04 WBC 5.6 RBC 3.16 L Hgb 10.5 L Hct 31.0 L MCV 98.1 H MCH 33.2 H MCHC 33.9 RDW Std Deviation 61.4 H RDW Coeff of Beth 17.6 H Plt Count 208 MPV 10.1 Immature Gran % (Auto) 0.900 Neut % (Auto) 79.7 H Lymph % (Auto) 11.9 L [place] % (Auto) 5.9 Eos % (Auto) 0.9 Baso % (Auto) 0.7 Absolute Neuts (auto) 4.5 Absolute Lymphs (auto) 0.67 L Nucleated RBC % 0 Sodium 140 Potassium 4.0 Chloride 108 Carbon Dioxide 14.1 L Anion Gap 18 H BUN 79 H Creatinine 1.45 H Est GFR (MDRD) Non-Af 47 L BUN/Creatinine Ratio 54.8 H Glucose 125 H Calcium 8.1 Radiography Diagnostic Testing: Clinical Impression(s) from Imaging Studies Chest X-Ray 02/19/25 09:30 IMPRESSION: No acute abnormality Reading Location: [facility] Discharge Plan Triage Chief Complaint: Shortness of Breath ED Provider: Chito Werner Dx/Rx/DC Orders Clinical Impression: COPD exacerbation, Dyspnea, Nicotine dependence Prescriptions: New prednisone 20 mg tablet 40 mg PO DAILY 7 Days Qty: 14 0RF No Action amlodipine 5 mg tablet 5 mg PO DAILY nystatin 100,000 unit/gram powder 1 applic topical BID triamcinolone acetonide 0.1 % cream 1 applic topical BID PRN (Reason: for feet) Eliquis 5 mg tablet 5 mg PO BID albuterol sulfate 90 mcg/actuation HFA aerosol inhaler 2 puff INHALATION Q4H PRN (Reason: sob/wheezing) Patient Comments: pt sais he does not use because it doesnt help oxybutynin chloride 10 mg tablet extended release 24hr 10 mg PO DAILY artifi.tears(hypromellose)(PF) 1.7 % drops with applicator 1 p EACH EYE DAILY PRN (Reason: dry eyes) Chei Aerosphere 160-9-4.8 mcg/actuation HFA aerosol inhaler 2 inh inhalation BID Patient Comments: pt states he does not use because it doesnt help Primary Care Provider: Shoshana Ulrich Referrals: Shoshana Ulrich MD [Primary Care Provider, [facility]] - 3-5 Days Activity Restrictions/Additional Instructions: Stop smoking. Continue to use your inhaler as previously directed, you can use 1 to 2 puffs every 4-6 hours as needed for shortness of breath. Return with increasing shortness of breath, new or worsening symptoms. Print Language: Thai Disposition Disposition: Home, Self Care
[2025-02-19] MEDS: Albuterol 2.5 MG/3 ML VIAL.NEB. INHALATION (08:58)
[2025-02-19 09:00] VITALS: PULSE 73; RESP 16
[2025-02-19 09:10] LABS: Hematocrit 31.0 % (40-54); Hemoglobin 10.5 g/dL (13.0-16.5); Immature Granulocytes Count 0.050 X10^3/uL (0.0-0.0); Mean Corp Hgb Conc 33.9 g/dL (32-36); Mean Corpuscular Volume 98.1 fL (80-94); Mean Platelet Vol. 10.1 fl (6.2-12.0); NRBC Flagged by Analyzer 0 % (0-5); Platelet Count 208 K/mm3 (150-450); RBC Distribution Width CV 17.6 % (11.6-14.6); RBC Distribution Width SD 61.4 fl (35.1-43.9); Red Blood Count 3.16 M/mm3 (4.6-6.2); White Blood Count 5.6 K/mm3 (4.4-11.0)
--- NOTE | 2025-02-19 09:30 | RAD_ITS ---
PROCEDURE: CHEST 1 VIEW (PORTABLE) 02/19/2025 REASON FOR EXAM: SHORTNESS OF BREATH TECHNIQUE: Frontal view of the chest. COMPARISON: July 21, 2023 FINDINGS: Hardware: EKG leads. Thoracic neurostimulator midthoracic spine. Heart: Normal-size. Aorta is atherosclerotic. Lungs: Right hilar granulomas. Lungs are clear. No pneumothorax or pleural effusion. Minimal atelectasis left base. Bones: Old, healed fractures posterior right upper ribs. Curvature thoracic and thoracolumbar spine. RAD/Chest 1 View (Portable) IMPRESSION: No acute abnormality Reading Location: [id number]
[2025-02-19 09:37] LABS: Anion Gap 18 (5-15); BUN 79 mg/dL (4-19); BUN/Creat Ratio 54.8 RATIO (10-20); Calcium,Total 8.1 mg/dL (7.6-11.0); Carbon Dioxide 14.1 mmol/L (21.0-32.0); Chloride 108 mmol/L (98-108); Glucose 125 mg/dL (70-99); Potassium 4.0 mmol/L (3.3-5.1)
[2025-02-19 10:26] VITALS: BP 113/71; PULSE 78; RESP 20; O2SAT 100
[2025-02-19 10:34] VITALS: O2SAT 97
[2025-02-19 10:35] VITALS: BP 117/65; PULSE 71; RESP 16; TEMP 36.6; O2SAT 100
== END 2025-02-19 10:40 | disposition home or self-care (01) ==
PROVIDERS: Emergency Provider Emergency Medicine; PCP Family Medicine; Visit Provider Emergency Medicine
DX: J44.1 Chronic obstructive pulmonary disease with (acute) exacerbation (principal); J43.9 Emphysema, unspecified; I44.0 Atrioventricular block, first degree; I45.2 Bifascicular block; I10 Essential (primary) hypertension; F17.210 Nicotine dependence, cigarettes, uncomplicated; Z79.01 Long term (current) use of 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; Z79.899 Other long term (current) drug therapy; Z86.718 Personal history of other venous thrombosis and embolism
CPT/HCPCS: 71045; 80048; 85025; 93005; 94640; 96374; 99285; A4216

== ENCOUNTER 2025-02-21 18:09 | Emergency (ER) | payer MEDICARE, SELFPAY ==
[2025-02-21 18:11] VITALS: BP 124/61; PULSE 66; RESP 18; TEMP 37.1; O2SAT 96; BMI 23.7
--- NOTE | 2025-02-21 18:26 | CT_ITS ---
PROCEDURE: ABDOMEN/PELVIS WITHOUT CONT 02/21/2025 REASON FOR EXAM: PAINLESS HEMATURIA TECHNIQUE: Procedure Code: [id number] Modality: CT Procedure: ABDOMEN/PELVIS WITHOUT CONT Noncontrast technique limits evaluation of the abdominal and pelvic viscera. Coronal and Sagittal reconstruction series were provided. One or more dose reduction techniques were used (e.g., Automated exposure control, adjustment of the mA and/or kV according to patient size, use of iterative reconstruction technique). COMPARISON: 10/2024. FINDINGS: Right lower lobe pleural-based density with a tail sign is again seen, unchanged from the prior CT of 10/2024, favoring round atelectasis. Continued surveillance is recommended to confirm stability. Coronary artery calcifications are present. Diffuse osseous demineralization with levoscoliosis and degenerative changes of the spine. Infrarenal abdominal aorta measures 3.6 cm with severe atherosclerosis. No suspicious lymphadenopathy, though assessment is limited without intravenous contrast. Punctate splenic calcifications consistent with sequelae of prior granulomatous infection. Left kidney contains a simple cyst. Right kidney demonstrates a nonobstructive calculus. No hydronephrosis or hydroureter. Urinary bladder is unremarkable. Dense colonic stool consistent with constipation. Colonic diverticulosis without evidence of diverticulitis. Long segment sigmoid colon wall thickening which may reflect nonspecific colitis. Fat-containing bilateral inguinal hernias. No free air or free fluid. CT/Abdomen/Pelvis without Cont IMPRESSION: Stable right lower lobe round atelectasis; continued imaging surveillance recom mended. Right kidney nonobstructive calculus. Left renal simple cyst. Colonic diverticulosis without diverticulitis. Long segment sigmoid wall thickening, possibly due to nonspecific colitis; genet elate clinically. Dense colonic stool suggesting constipation. Infrarenal abdominal aortic aneurysm measuring 3.6 cm with severe atheroscleros is. Fat-containing bilateral inguinal hernias. Reading Location: [id number]
--- NOTE | 2025-02-21 18:27 | EX.ED.GUMALE ---
HPI History of Present Illness Chief Complaint: Complaint Narrative Narrative: 89-year-old male who denies significant past medical history except for atrial fibrillation, on Eliquis, presents with painless hematuria that began 2 hours ago. He denies any other bleeding diathesis. States he was able to urinate this morning, and it was normal. About 2 hours ago, he had bright red blood in his urine. He denies any fevers or chills, no back pain, no dysuria. No exacerbating or alleviating factors. He called EMS because of all the bright red blood in his urine. 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 Wears glasses Wears hearing aid in both ears Cancer Hx of gout CPAP (continuous positive airway pressure) dependence Shortness of breath on exertion Smoker Emphysema, unspecified Hypertension Restless legs Injury of back Home Medications ?Medication ?Instructions ?Recorded ?Last Taken ?Type amlodipine 5 mg tablet 5 mg PO DAILY BP 07/02/22 02/17/25 History artifi.tears(hypromellose)(PF) 1.7 1 drp EACH EYE DAILY PRN dry eyes 09/19/23 02/17/25 History % eye drops with applicator oxybutynin chloride 10 mg 10 mg PO DAILY OAB 09/19/23 02/17/25 History tablet,extended release 24 hr budesonide 160 mcg-glycopyr 9 2 inh inhalation BID COPD 01/01/25 Unknown History mcg-formot 4.8 mcg/actuation HFA inhaler (Breztri Aerosphere) albuterol sulfate 90 mcg/actuation 2 puff inhalation Q4H PRN 01/18/25 Unknown History aerosol inhaler sob/wheezing nystatin 100,000 unit/gram topical 1 applic topical BID yeast 01/18/25 02/17/25 History powder triamcinolone acetonide 0.1 % 1 applic topical BID PRN for feet 01/18/25 02/17/25 History topical cream apixaban 5 mg tablet (Eliquis) 5 mg PO BID 02/12/25 02/17/25 History prednisone 20 mg tablet 40 mg (2 x 20 mg) PO DAILY 7 days 02/19/25 Unknown Rx #14 tabs AMITRIPT 02/21/25 Unknown History amitriptyline 10 mg tablet 10 mg PO QPM 02/21/25 Unknown History buprenorphine 10 mcg/hour weekly 1 patch topical QWEEK 02/21/25 Unknown History transdermal patch cephalexin 500 mg capsule 500 mg PO Q12 #14 CAPSULES 02/21/25 Unknown Rx Allergy/AdvReac Type Severity Reaction Status Date / Time tiotropium (From Spiriva Allergy Unknown unknown Verified 02/21/25 18:11 with HandiHaler) ibuprofen (From Motrin) Allergy Swelling Verified 02/21/25 18:11 Family History Mother , 61 Cancer Father , 91 AD (Alzheimer's disease) Sister Multiple sclerosis Surgical History S/P TURP (transurethral resection of prostate) History of cataract surgery History of embolic filter insertion Hx of colonoscopy with polypectomy History of hand surgery S/P insertion of spinal cord stimulator History of varicose vein stripping Hx of myringotomy History of parotidectomy History of esophagogastroduodenoscopy (EGD) History of cystoscopy Hx of basal cell carcinoma excision Hx of finger joint replacement Hx of decompressive lumbar laminectomy Social History household members: none housing: house current occupational status: retired pets and animals: Yes pets and animals: dog(s) Smoking Status: Current every day smoker tobacco type: cigarettes Tobacco: How many years used: 69 alcohol intake: current details: On avg a couple drinks each evening substance use type: does not use caffeine: Yes Type: coffee Number of servings: 2 do you feel safe at home: Yes ROS ROS ED ROS Narrative Review of systems is positive for gross hematuria. No back pain. No fevers or chills. No abdominal pain. Denies other bleeding diathesis. EXAM Physical Exam Narrative Exam Narrative: Afebrile. Vital signs noted. Nontoxic-appearing. Cardiovascular examination reveals a regular rate and rhythm. Lungs are clear to auscultation bilaterally. Abdomen is soft and nontender without guarding or rebound. Neurological examination nonfocal, nonlateralizing. No pallor of subconjunctival or palms of hands. No central cyanosis. Const Vital Signs: 02/21/25 18:11 02/21/25 21:47 Temperature 98.7 F 97.7 F L Temperature Source Oral Oral Pulse Rate 66 72 Respiratory Rate 18 16 Blood Pressure 124/61 H 127/76 H Blood Pressure Mean 82 93 Pulse Ox 96 97 Oxygen Delivery Method Room Air Room Air MDM MDM MDM Narrative Medical decision making narrative: The differential diagnosis includes but not limited to hemorrhagic cystitis versus broken blood vessel on anticoagulant versus ureterolithiasis versus bladder mass. I have lower suspicion for ureterolithiasis as he is having more painless hematuria. I will check a CBC to make sure he is not anemic, but he does not appear that way on examination. BMP will be checked to check BUN and creatinine. Urinalysis will be obtained to rule out infection and the need for antibiotics. I do feel he merits CT without contrast to look for bladder mass versus stones. I reviewed his laboratory work and he has normal white count of 4.6 with hemoglobin stable at 10.5 when compared to prior labs. Platelet count normal at 184. Sodium normal at 138 with potassium 3.9, BUN elevated 61 with creatinine 1.81. When compared to prior labs, he has had chronic kidney disease with creatinine 1.81 in the past. Glucose 132 with normal anion gap of 13. CT of the abdomen pelvis shows no bladder mass or polyp. In review of his urinalysis and microanalysis he has greater than 100 WBCs and greater than 100 RBCs. I feel he probably has more of a hemorrhagic cystitis or cystitis with hematuria. Patient feels well enough and would like to be discharged. He was given his first dose of cephalexin here in the emergency department and prescription written to take twice a day for the next 7 days. He has urine cultures pending. He was told that he may need to hold his Eliquis for the next few days. I feel he can be discharged to follow-up with his primary care provider. He is motivated for discharge. Return instructions were reviewed. Disposition is discharged home in stable condition. History & Record Review Discussion w/independent historian: Patient Additional record(s) reviewed:: Prior ED visit and Prior labs (Chronic kidney disease patient) Lab Data Attestation: I reviewed the patient's lab results. Labs: Laboratory Results - last 24 hr 02/21/25 02/21/25 18:20 19:24 WBC 4.6 RBC 3.17 L Hgb 10.5 L Hct 31.2 L MCV 98.4 H MCH 33.1 H MCHC 33.7 RDW Std Deviation 63.5 H RDW Coeff of Beth 17.6 H Plt Count 184 MPV 9.8 Immature Gran % (Auto) 0.900 Neut % (Auto) 90.1 H Lymph % (Auto) 7.5 L [place] % (Auto) 1.3 Eos % (Auto) 0.0 Baso % (Auto) 0.2 Absolute Neuts (auto) 4.2 Absolute Lymphs (auto) 0.35 L Nucleated RBC % 0 Sodium 138 Potassium 3.9 Chloride 107 Carbon Dioxide 18.7 L Anion Gap 13 BUN 61 H Creatinine 1.81 H Estim Creat Clear Calc 25.01 L Est GFR (MDRD) Non-Af 36 L BUN/Creatinine Ratio 33.8 H Glucose 132 H Calcium 8.5 Urine Color [place] Urine Clarity Cloudy Urine pH 5.0 Ur Specific [place] 1.015 Urine Protein 100 H Urine Glucose (UA) Normal Urine Ketones Negative Urine Occult Blood 250 H Urine Nitrite Positive H Urine Bilirubin Negative Urine Urobilinogen Normal Ur Leukocyte Esterase 100 H Urine RBC > 100 SEEN Urine WBC >100 SEEN Ur Squamous Epith Cells 0-5 SEEN Amorphous Sediment 2+ Urine Bacteria 3+ Urine Mucus 0 SEEN Radiography Diagnostic Testing: Clinical Impression(s) from Imaging Studies Abdomen/Pelvis CT 02/21/25 18:26 IMPRESSION: Stable right lower lobe round atelectasis; continued imaging surveillance recommended. Right kidney nonobstructive calculus. Left renal simple cyst. Colonic diverticulosis without diverticulitis. Long segment sigmoid wall thickening, possibly due to nonspecific colitis; correlate clinically. Dense colonic stool suggesting constipation. Infrarenal abdominal aortic aneurysm measuring 3.6 cm with severe atherosclerosis. Fat-containing bilateral inguinal hernias. Reading Location: [address] Discharge Plan Triage Chief Complaint: Complaint ED Provider: Chito Werner Dx/Rx/DC Orders Clinical Impression: Cystitis with hematuria, long-term (current) use of 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 Instructions: ED Urinary Tract Infections in Men Prescriptions: New cephalexin 500 mg capsule 500 mg PO Q12 Qty: 14 0RF No Action amlodipine 5 mg tablet 5 mg PO DAILY nystatin 100,000 unit/gram powder 1 applic topical BID triamcinolone acetonide 0.1 % cream 1 applic topical BID PRN (Reason: for feet) Eliquis 5 mg tablet 5 mg PO BID albuterol sulfate 90 mcg/actuation HFA aerosol inhaler 2 puff INHALATION Q4H PRN (Reason: sob/wheezing) Patient Comments: pt sais he does not use because it doesnt help oxybutynin chloride 10 mg tablet extended release 24hr 10 mg PO DAILY artifi.tears(hypromellose)(PF) 1.7 % drops with applicator 1 drp EACH EYE DAILY PRN (Reason: dry eyes) Breztri Aerosphere 160-9-4.8 mcg/actuation HFA aerosol inhaler 2 inh inhalation BID Patient Comments: pt states he does not use because it doesnt help prednisone 20 mg tablet 40 mg PO DAILY 7 Days Qty: 14 0RF AMITRIPT amitriptyline 10 mg tablet 10 mg PO QPM buprenorphine 10 mcg/hour patch weekly 1 patch topical QWEEK Primary Care Provider: Shoshana Ulrich Referrals: Shoshana Ulrich MD [Primary Care Provider, Family Practice] - 3-5 Days Activity Restrictions/Additional Instructions: You may need to hold your Eliquis for the next few days. Drink plenty of oral fluids. Antibiotics for a bladder infection. Return with increased bleeding, fever, new or worsening symptoms. Print Language: Indonesian Disposition Disposition: Home, Self Care
[2025-02-21 18:36] LABS: Hematocrit 31.2 % (40-54); Hemoglobin 10.5 g/dL (13.0-16.5); Immature Granulocytes Count 0.040 X10^3/uL (0.0-0.0); Mean Corp Hgb Conc 33.7 g/dL (32-36); Mean Corpuscular Volume 98.4 fL (80-94); Mean Platelet Vol. 9.8 fl (6.2-12.0); NRBC Flagged by Analyzer 0 % (0-5); POSITIVE DIFFERENTIAL YES; Platelet Count 184 K/mm3 (150-450); RBC Distribution Width CV 17.6 % (11.6-14.6); RBC Distribution Width SD 63.5 fl (35.1-43.9); Red Blood Count 3.17 M/mm3 (4.6-6.2); White Blood Count 4.6 K/mm3 (4.4-11.0)
--- NOTE | 2025-02-21 18:37 | ED.RN ---
PT'S DAUGHTER IN LAW- KENNETH CALLED TO CHECK IN ON PT. PER PT ITS OKAY TO GIVE UPDATES. KENNETH'S # IS [phone]
[2025-02-21] MEDS: 0.9% Normal Saline (1000mL) 1,000 ML 1000 ML IV (19:24)
[2025-02-21 19:34] LABS: Mucous, Urine 0 SEEN /hpf (<or=2+)
[2025-02-21 19:35] LABS: Anion Gap 13 (5-15); BUN 61 mg/dL (4-19); BUN/Creat Ratio 33.8 RATIO (10-20); Calcium,Total 8.5 mg/dL (7.6-11.0); Carbon Dioxide 18.7 mmol/L (21.0-32.0); Chloride 107 mmol/L (98-108); Estimated Creatinine Clearance 25.01 ml/min (50-250); Glucose 132 mg/dL (70-99); Potassium 3.9 mmol/L (3.3-5.1)
[2025-02-21 19:55] LABS: Color, Urine Amber (Yellow); Glucose, Dipstick Normal (Normal); Ketone-Dipstick Negative (Negative); Leukocyte Esterase-Dipstick 100 /ul (Negative); Nitrite-Dipstick Positive (Negative); Occult Blood-Urine 250 /ul (Negative); Protein-Dipstick 100 mg/dl (Negative); Specific Gravity, Urine 1.015 (1.002-1.030); Urine Bilirubin Dipstick Negative (Negative)
[2025-02-21 21:21] LABS: Red Blood Cells-Urine > 100 SEEN /hpf (0-5)
[2025-02-21 21:24] LABS: Squamous Epithelial Cells - UA 0-5 SEEN /hpf (0-5)
[2025-02-21 21:47] VITALS: BP 127/76; PULSE 72; RESP 16; TEMP 36.5; O2SAT 97
[2025-02-21 22:10] VITALS: BP 127/76; PULSE 72; RESP 16; TEMP 36.5; O2SAT 97
== END 2025-02-21 22:21 | disposition home or self-care (01) ==
PROVIDERS: Emergency Provider Emergency Medicine; PCP Family Medicine; Visit Provider Emergency Medicine
DX: N30.91 Cystitis, unspecified with hematuria (principal); J43.9 Emphysema, unspecified; I48.91 Unspecified atrial fibrillation; I12.9 Hypertensive chronic kidney disease with stage 1 through stage 4 chronic kidney disease, or unspecified chronic kidney disease; N18.9 Chronic kidney disease, unspecified; F17.210 Nicotine dependence, cigarettes, uncomplicated; Z79.01 Long term (current) use of 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; Z86.718 Personal history of other venous thrombosis and embolism
CPT/HCPCS: 74176; 80048; 81001; 85025; 87077; 87086; 87088; 87186; 96360; 96361; 99285; A4216

== ENCOUNTER → 2025-03-01 | Outpatient (CLI) | payer MEDICARE, SELFPAY ==
--- NOTE | 2025-03-01 16:21 | MRI_ITS ---
PROCEDURE: MRI SPINE LUMBAR (ROUTINE) 03/01/2025 REASON FOR EXAM: RADICULOPATHY TECHNIQUE: Procedure Code: MRISPL Modality: MR Procedure: SPINE LUMBAR (ROUTINE) Multiplanar and multisequential MRI of the lumbar spine was performed without contrast. COMPARISON: None. FINDINGS: 5 [id number] lumbar-type vertebrae are preserved in height. No subluxation. No abnormal marrow signal. Straightening of the normal lumbar lordosis and moderate levoscoliotic curvature. Multilevel spondylotic changes with varying degrees of disc desiccation and narrowing, multiple small degenerative endplate Schmorl's nodes, anterior endplate osteophytosis, and hypertrophic facet arthropathy. Conus appears normal in signal and morphology, terminating at T12-L1. No significant abnormality in the visualized paravertebral soft tissues. Few bilateral simple appearing renal cysts. T12-L1: Dorsal disc bulge indents the ventral thecal sac, without significant spinal canal narrowing. Mild left and moderate-advanced right neural foraminal narrowing. L1-2: Dorsal disc bulge and ligamentum flavum/facet hypertrophy results in moderate spinal canal stenosis. Mild left and moderate right neural foraminal narrowing. L2-3: Dorsal disc bulge and ligamentum flavum/facet hypertrophy results in moderate-advanced spinal canal stenosis with crowding of the cauda equina. Mild left and moderate-advanced right neural foraminal narrowing. L3-4: Dorsal disc bulge and ligamentum flavum/facet hypertrophy results in moderate spinal canal narrowing. Moderate-advanced bilateral neural foraminal narrowing. L4-5: Dorsal disc bulge and ligamentum flavum/facet hypertrophy results in moderate spinal canal narrowing. Mild right and moderate-advanced left neural foraminal narrowing. L5-S1: Dorsal disc bulge indents the ventral thecal sac, without substantial spinal canal narrowing. Moderate bilateral neural foraminal narrowing. MRI/Spine Lumbar (Routine) IMPRESSION: 1. No acute abnormality. Multilevel spondylotic changes and levoscoliosis. 2. Spinal canal stenosis most advanced at L2-3, mild-moderate at the remaining levels. 3. Multilevel moderate-advanced neural foraminal stenoses, as noted above. Reading Location: [id number]
--- OUTSIDE RECORDS SUMMARY | 2025-03-01 16:24 | XMS RPT_ITS | CCD ---
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 Shoshana Ulrich Primary Care Provider [phone] Dr. Shoshana Ulrich Referring Provider Dr. Shoshana Ulrich Other Provider Dr. Mark Anaya Attending Provider [phone] Rubén Sims Attending Provider Dr. Shoshana Ulrich Primary Care Provider [phone])[phone] Dr. Stefan Orr Attending Provider [phone] Sam Foster Referring Provider Dr. Shoshana Ulrich Primary Care Provider [phone] Dr. Stefan Orr Attending Provider [phone] Sam Foster Referring Provider AARON Olmedo Attending Provider Dr. Stefan Orr Attending Provider Dr. Edgar Hennessy Attending Provider Dr. Michele Ruby Referring Provider Dr. Shoshana Ulrich Primary Care Provider [phone] Dr. Stefan Orr Attending Provider [phone] Shoshana Ulrich Primary Care Provider [phone] Dr. Stefan Orr Attending Provider [phone] Sunny Smiley Referring Provider Dr. Russel Pal Emergency Provider Dr. Rosemary Fernandez Admit Provider Dr. Rosemary Fernandez Other Provider Jesus, Dr. Flowers Attending Provider Dr. Rosemary Fernandez Attending Provider Dr. Shoshana Ulrich MD Primary Care Provider Dr. Shoshana Ulrich MD Attending Provider [phone] Dr. Shoshana Ulrich MD Referring Provider Dr. Santana Sandoval DO Attending Provider Dr. Santana Sandoval DO Emergency Provider Dr. Sai Salazar DPM Attending Provider Dr. Sai Salazar DPM Referring Provider Dr. Santana Mason MD Attending Provider Dr. Marco Antonio Garay DO Attending Provider Dr. Marco Antonio Garay DO Emergency Provider Kristen Dia Attending Provider Dr. Jose Figueroa MD Attending Provider Dr. Shoshana Ulrich MD Primary Care Provider Dr. Girish Rucker MD Referring Provider Dr. Shoshana Ulrich MD Attending Provider Dr. Rand Rollins DO Referring Provider Dr. Rand Rollins DO Emergency Provider Zach GIRON, Dr. Avilez Admit Provider Zach GIRON, Dr. Avilez Attending Provider Ria GIRON, Dr. Gordillo Referring Provider Ria GIRON, Dr. Gordillo Emergency Provider Zach GIRON, Dr. Avilez Admit Provider Zach GIRON, Dr. Avilez Attending Provider Zach GIRON, Dr. Avilez Other Provider Gibson TAPIA, Dr. Youngblood Attending Provider Gibson TAPIA, Dr. Youngblood Other Provider Dr. Daniel Neal DO Attending Provider Dr. Santana aMson MD Other Provider [phone] Santana Mason MD Attending Provider Ángel GIRON, Dr. Sanchez Other Provider Dr. Shoshana Ulrich MD Primary Care Provider Ria GIRON, Dr. Gordillo Referring Provider Dr. Blas Arellano MD Attending Provider Dr. Raghav Serrano DO Referring Provider Arthur LAURA-C, Alyce Attending Provider Jose Figueroa MD Unavailable Dr. Daniel Neal DO Referring Provider Dr. Shoshana Ulrich MD Referring Provider Kristen Dia Attending Provider [phone] OLGA CHRISTIANSON Attending Unavailable Dr. Shoshana Ulrich MD Primary Care Provider Kristen Dia Referring Provider Eduardo Calero Attending Provider Mojgan TAPIA, Dr. Anna Primary Care Physician [phone] Ria GIRON, Dr. Gordillo Emergency Department Physi eli Zach GIRON, Dr. Avilez Admitting Physician Zach GIRON, Dr. Avilez Attending Physician Zach GIRON, Dr. Avilez Nurse Practitioner Gibson TAPIA, Dr. Youngblood Attending Physician Gibson TAPIA, Dr. Youngblood Nurse Practitioner Ángel GIRON, Dr. Sanchez Attending Physician Isabella TAPIA, Dr. Dillon Nurse Practitioner Isabella TAPIA, Dr. Dillon Attending Physician Ángel GIRON, Dr. Sanchez Nurse Practitioner Adan TAPIA, Dr. Odonnell Attending Physician Arthur SPOT MAN-C, Alyce Attending Physician Kristen Dia Attending Physician Eduardo Calero Attending Physician Mojgan TAPIA, Dr. Anna Attending Physician Chito Werenr MD Emergency Department Physician Santana Mason Attending Unavailable Miedel, Shoshana Primary Care Unavailable Daniel Neal Referring Unavailable Miedel, Shoshana Attending Unavailable Miedel, Shoshana Primary Care Unavailable Miedel, Shoshana Referring Unavailable Eduardo Calero Attending Unavailable Miedel, Shoshana Primary Care Unavailable Miedel, Shoshana Referring Unavailable Blas Arellano Attending Unavailable Miedel, Shoshana Primary Care Unavailable Miedel, Shoshana Referring Unavailable Renata Arellanod Referring Unavailable Blas Arellano Attending Unavailable Miedel, Shoshana Primary Care Unavailable Miedel, Shoshana Primary Care Unavailable Sai Salazar Attending Unavailable Sai Salazar Referring Unavailable Miedel, Shoshana Primary Care Unavailable Marco Antonio Garay Attending Unavailabl [facility] Primary Care Unavailable Girish Rucker Referring Unavailable Jose Figueroa Attending Unavailable Raghav Serrano Referring Unavailable Blas Arellano Attending Unavailable [facility] Primary Care Unavailable Kristen Amaya Attending Unavailable [facility] Primary Care Unavailable [facility] Referring Unavailable Chito Werner Attending Unavailable [facility] Primary Care Unavailable Amaya, Kristen Referring Unavailable [facility] Primary Care Unavailable AmayaJasvir ayonison Attending Unavailable AmayaJasvir ayonison Attending Unavailable [facility] Primary Care Unavailable [facility] Referring Unavailable [facility] Primary Care Unavailable Alyce Gibson Attending Unavailable Sai Crockett Attending Unavailable [facility] Primary Care Unavailable Sai Crockett Referring Unavailable [facility] Attending Unavailable [facility] Primary Care Unavailable [facility] Referring Unavailable [facility] Primary Care Unavailable [facility] Attending Unavailable Jasvir Amayaison Referring Unavailable Santana Mason Attending Unavailable [facility] Primary Care Unavailable Raghav Serrano Attending Unavailable Raghav Serrano Consulting Unavailable Godman, Rand Referring Unavailable [facility] Primary Care Unavailable Zach Raghav Admitting Unavailable [facility] Primary Care Unavailable Chito Werner Attending Unavailable [facility] Attending Unavailable [facility] Primary Care Unavailable Zach, Raghav Admitting Unavailable Zach Raghav Consulting Unavailable Godman, Rand Referring Unavailable [facility] Primary Care Unavailable Daniel Neal Attending Unavailable Gibson, Rylie Consulting Unavailable [place], Santana Consulting Unavailable Daniel Neal Consulting Unavailable Rylie Arreaga Attending Unavailable Gibson, Rylie Consulting Unavailable Santana Mason Attending Unavailable [facility] Primary Care Unavailable Santana Mason Attending Unavailable Sai Salazar Referring Unavailable [facility] Primary Care Unavailable Santana Sandoval Attending Unavailable Raghav Serrano Consulting Unavailable Mostsusannah, Raghav Admitting Unavailable Godman, Rand Referring Unavailable [facility] Primary Care Unavailable Daniel Neal Attending Unavailable Gibson, Rylie Consulting Unavailable [place], Santana Consulting Unavailable Sam Foster Admitting Unavailable Shoshana Ulrich Primary Care Unavailable Sam Foster Referring Unavailable Sam Foster Attending Unavailable Allergies Allergy Classification Reported Allergen(s) Allergy Type Date of Onset Reaction(s) Facility (13 sources) ibuprofen drug allergy 7 Swelling of legs, Swelling [facility] Work Phone: (20 sources) Ibuprofen Drug Allergy 2 Swelling [facility] (3 sources) tiotropium Drug Allergy 5 unknown [facility] (1 source) Ibuprofen Drug Allergy 5 [facility] (1 source) tiotropium Drug Allergy 5 [facility] Medications Current Medications Medication Drug [...] 18, 2020 12:00am August 19, 2020 12:04am Cellulitis of right hand Cellulitis of right upper limb Start: 08-16-2020 End: 08-19-2020 take 1 tablet [...] 07, 2015 12:00am December 29, 2015 1:30pm [id number] 200 actuat albuterol 0.09 mg/actuat metered dose inhaler (20 sources) beta2-Adrenergic Agonist Start: 09-08-2021 take 1 puff(s) by inhalation every four hours as needed Albuterol Sulfate Active 1 PUFF INHALATION EVERY 4 HOURS NEEDED September 08, 2021 10:09am Start: 09-08-2021 End: 01-18-2025 Albuterol Sulfate 90 mcg/act uation HFA aerosol inhaler Active 2 NMA INHALATION Q4H as needed for sob/wheezing January 18, 2025 3:53pm Non-compliance of drug therapy Start: 09-08-2021 take 1 puff(s) by in halation every four hours Albuterol Sulfate Active 1 PUFF INHALATION Q4H September 08, 2021 12:00am amLODIPine 5 mg oral tablet (20 sources) Dihydropyridine Calcium Channel David Start: 04-26-2020 take 1 tablet by mouth once daily Amlodipine 5 mg tablet Active 5 mg PO DAILY July 02, 2022 1:00am BP Complies with drug therapy amoxicillin 500 mg oral capsule (1 source) Penicillin-class Antibacterial Start: 11-09-2024 amoxicillin (AMOXIL) 500 mg capsule 500 mg once daily. 11/09/2024 Active amoxicillin 875 mg / clavulanate 125 mg oral tablet (2 sources) Penicillin-class Antibacterial Start: 09-08-2021 take 1 tablet by mouth twice daily Amoxicillin-Pot Clavulanate Active 1 TABLET PO TWICE A DAY September 08, 2021 1:13pm apixaban 5 mg oral tablet (20 sources) Factor Xa Inhibitor Start: 02-12-2025 take 1 tablet by mouth twice daily Apixaban (Eliquis) 5 mg tablet Active 5 mg PO TWICE A DAY February 12, 2025 12:00am Complies with drug therapy Start: 02-12-2025 take 1 tablet by marielle th twice daily Apixaban (Eliquis) 5 mg tablet Active 5 mg PO TWICE A DAY February 12, 2025 12:00am Complies with drug therapy Start: 01-01-2025 End: 01-18-2025 take 1 tablet by mouth twice daily Apixaban (Eliquis) 5 mg tablet Discontinued 5 mg PO TWICE A DAY January 01, 2025 12:00am January 18, 2025 4:04pm BLOOD THINNER Start: 06-27-2024 End: 11-06-2024 take 1 tablet by mouth twice daily Apixaban (Eliquis) 5 mg tablet Discontinued 5 mg PO TWICE A DAY 180 1 July 25, 2024 12:26pm November 06, 2024 10:40am Start: 06-20-2024 End: 07-13-2024 take 1 tablet by mouth once Apixaban (Eliquis Dvt-Pe T reat 30d Start) 5 mg (74 tabs) tablets,dose pack Discontinued 0 PO .COMPLEX 74 0 June 20, 2024 1:00am July 13, 2024 2:03pm orally per package directions Wngjvkzija-Fkbnbrmi-Pljxftix ol (16 sources) Corticosteroid, beta2-Adrenergic Agonist Start: 01-01-2025 Wrwxjrxcpe-Bfbvrzqa-Aozludwj ol (Breztri Aerosphere) 160-9-4.8 mcg/actuation HFA aerosol inhaler Active 2 NMA INHALATION TWICE A DAY January 01, 2025 12:00am COPD Non-compliance of drug therapy Start: 01-01-2025 Start: 01-01-2025 Budesonide-Gly copyr-Formoterol (Breztri Aerosphere) 160-9-4.8 mcg/actuation HFA aerosol inhaler Active 2 NMA INHALATION TWICE A DAY January 01, 2025 12:00am COPD Complies with drug therapy Start: 01-01-2025 Budesonide-Gly copyr-Formoterol (Breztri Aerosphere) 160-9-4.8 mcg/actuation HFA aerosol inhaler Active 2 NMA INHALATION TWICE A DAY January 01, 2025 12:00am COPD Start: 09-19-2023 End: 12-06-2023 Krqabvvyqk-Ytnlpabn-Reomplvf ol (Breztri Aerosphere) 160-9-4.8 mcg/actuation HFA aerosol [...] TWICE A DAY September 19, 2023 12:00am Dpetfwrxbvy-Rmcmkpkxl-Ctxcdk er (20 sources) Anticholinergic, Corticosteroid, beta2-Adrenergic Agonist Start: 09-08-2021 Nmyzdiutxrh-Crwxqiqfw-Vegipw er (Trelegy Ellipta) 100-62.5-25 mcg blister with device Active 1 INH INHALATION DAILY September 08, 2021 10:09am Start: 09-08-2021 End: 09-19-2023 Nglxmyigosk-Mncdkyceb-Oexusj er (Trelegy Ellipta) 100-62.5-25 mcg blister with device Discontinued 1 NMA INHALATION DAILY September 08, 2021 12:00am September 19, 2023 12:07pm Start: 09-08-2021 End: 09-19-2023 Emwzyormeyo-Cdgswifpx-Wuqfwt er (Trelegy Ellipta) 100-62.5-25 mcg blister with [...] 2021 12:00am hypromellose 17 mg/ml ophthalmic solution (12 sources) Start: 09-19-2023 Artifi.Tears(Hypromellose)(P f) 1.7 % drops with applicator Active 1 NMA EACH EYE DAILY as needed for dry eyes September 19, 2023 12:00am Complies with drug therapy levoFLOXacin 500 mg oral tablet (3 sources) [...] 2022 1:00am nystatin 100 unt/mg topical powder (20 sources) Polyene Antifungal Start: 01-18-2025 Nystatin 100,000 unit/gram p owder Active 1 NMA TOPICAL TWICE A DAY January 18, 2025 3:52pm yeast Complies with drug therapy Start: 07-13-2024 End: 01-18-2025 Nystatin 100,000 unit/gram p owder Discontinued 1 NMA TOPICAL daily as needed for yeast July 13, 2024 1:00am January 18, 2025 3:58pm Start: 09-19-2023 End: 07-13-2024 Nystatin 100,000 unit/gram c ream Discontinued 1 NMA TOPICAL 4 TIMES DAILY as needed for skin irritation September 19, 2023 12:00am July 13, 2024 2:03pm Start: 09-19-2023 Nystatin Activ e 1 APPLIC TOPICAL 4 TIMES DAILY September 19, 2023 12:00am ondansetron 4 mg disintegrating oral tablet (20 sources) Serotonin-3 Receptor Antagonist Start: 09-08-2021 take [...] chloride 10 mg extended release oral tablet (13 sources) Cholinergic Muscarinic Antagonist Start: 09-19-2023 take 1 tablet by mouth once daily Oxybutynin Chloride 10 mg tablet extended release 24hr Active 10 mg PO DAILY September 19, 2023 12:00am OAB Complies with drug therapy pentoxifylline 400 mg extended release oral tablet (3 sources) Blood Viscosity Family Law Specialist Start: 03-31-2022 take 400 mg by mouth once daily at mealtime Pentoxifylline Active 400 MG PO DAILY March 31, 2022 1:00am must administer with a meal/food predniSONE 20 mg oral tablet (1 source) Start: 02-19-2025 take 2 tablets by mouth once daily triamcinolone acetonide 1 mg/ml topical cream (4 sources) Corticosteroid Start: 01-18-2025 Triamcinolone Acetonide 0.1 % cream Active 1 NMA TOPICAL TWICE A DAY as needed for for feet January 18, 2025 12:00am Complies with drug therapy Start: 09-19-2024 triamcinolone acetonide (KENALOG) 0.1 % cream as needed. 09/19/2024 Active Completed/Discontinued Medications Medication Drug Class(es) Dates Sig (Normalized) Sig (Original) acetaminophen 325 mg / oxyCODONE hydrochloride 5 mg oral tablet (20 sources) Opioid Agonist Start: 11-02-2024 End: 02-19-2025 Oxycodone-Acetamino phen 5-325 mg tablet Discontinued 1 {tbl} PO 3 TIMES DAILY NEEDED as needed for pain November 02, 2024 12:00am February 19, 2025 9:49am Start: 07-21-2023 End: 09-19-2023 Oxycodone-Acetaminophen 5-32 5 mg tablet Discontinued 1 {tbl} PO EVERY 6 HOURS NEEDED as needed for Pain 12 3 July 21, 2023 September 19, 2023 12:07pm Acute cervical myofascial strain Acute thoracic myofascial strain Strain of muscle, fascia and tendon at neck level, initial encounter Strain of muscle and tendon of unspecified wall of thorax, initial encounter Start: 07-21-2023 End: 09-19-2023 take 1 tablet by mouth every six hours as needed Oxycodone-Acetaminophen Discontinued 1 TABLET PO EVERY 6 HOURS NEEDED 12 July 21, 2023 September 19, 2023 12:07pm Start: 09-18-2020 take 1 tablet by marielle th every eight hours Oxycodone-Acetaminophen (Percocet) 5-325 mg tablet Active 1 - 2 TABLET PO Q8H 14 September 18, 2020 1:58pm AMITRIPT 5% LIDO 5% KETAMINE 10% (3 sources) Start: 01-18-2025 End: 02-19-2025 AMITRIPT 5% LIDO 5% KETAMINE 10% Discontinued TOPICAL .1-3 TIMES DAILY as needed January 18, 2025 12:00am February 19, 2025 9:44am APPLY TO GENITAL AREA Start: 01-18-2025 Start: 01-18-2025 AMITRIPT 5% LI DO 5% KETAMINE 10% Active TOPICAL .1-3 TIMES DAILY as needed January 18, 2025 12:00am APPLY TO GENITAL AREA Complies with drug therapy atorvastatin 10 mg oral tablet (6 sources) HMG-CoA Reductase Inhibitor Start: 02-12-2025 End: 02-19-2025 take 1 tablet by mouth once daily Atorvastatin (Lipitor) 10 mg tablet Discontinued 10 mg PO daily 90 3 February 12, 2025 2:58pm February 19, 2025 9:41am Start: 02-12-2025 take 1 tablet by marielle th once daily Start: 02-12-2025 End: 02-12-2025 take 1 tablet by mouth once daily Atorvastatin (Lipitor) 10 mg tablet Discontinued 10 mg PO daily February 12, 2025 12:00am February 12, 2025 2:58pm 120 actuat budesonide 0.16 mg/actuat / formoterol fumarate 0.0045 mg/actuat metered dose inhaler (8 sources) Corticosteroid, beta2-Adrenergic Agonist Start: 09-16-2016 SYMBICORT 160-4.5 MCG/ACT AERO Two inh twice daily BUDESONIDE-FORMOTEROL FUMARATE [id number] Melia Grimes Start: 09-16-2016 SYMBICORT 160- 4.5 MCG/ACT AERO Two inh twice daily BUDESONIDE-FORMOTEROL FUMARATE [id number] Melia Grimes Start: 06-02-2016 take 1 puff(s) by in halation twice daily Budesonide-Formoterol (Symbicort) 1 INHALER inhaler Active 2 PUFF INHALATION TWICE A DAY June 02, 2016 3:07pm 168 hr buprenorphine 0.01 mg/hr transdermal system (1 source) Partial Opioid Agonist Start: 02-19-2025 End: 02-19-2025 apply 10 ug topically every week Buprenorphine 10 mcg/hour patch weekly Discontinued 1 NMA TOPICAL EVERY WEEK February 19, 2025 12:00am February 19, 2025 9:50am cephalexin 500 mg oral capsule (20 sources) Cephalosporin Antibacterial Start: 01-09-2025 End: 01-18-2025 take 1 capsule by mouth three times daily Cephalexin 500 mg capsule Discontinued 500 mg PO THREE TIMES A DAY 30 January 09, 2025 12:00am January 18, 2025 3:58pm Start: 11-03-2022 End: 09-19-2023 take 1 capsule by mouth twice daily Cephalexin 500 mg capsule Discontinued 500 mg PO TWICE A DAY 10 November 03, 2022 12:00am September 19, 2023 12:06pm Start: 10-07-2015 End: 12-29-2015 take 1 capsule by mouth every six hours Cephalexin 500 MG capsule Discontinued 500 mg PO EVERY 6 HOURS October 07, 2015 12:00am December 29, 2015 1:31pm colchicine 0.6 mg oral capsule (20 sources) Start: 09-11-2020 End: 05-26-2021 take 1 capsule by mouth once daily as needed Colchicine 0.6 mg Capsule Discontinued 0.6 mg PO DAILY as needed for GOUT September 11, 2020 12:00am May 26, 2021 11:36am DULoxetine 30 mg delayed release oral capsule (1 source) Serotonin and Norepinephrine Reuptake Inhibitor Start: 02-19-2025 End: 02-19-2025 Duloxetine 30 mg capsule,delayed release(DR/EC) Discontinued 30 mg PO February 19, 2025 12:00am February 19, 2025 9:48am ferrous sulfate 325 mg oral tablet (3 sources) Start: 01-18-2025 End: 02-19-2025 take 1 tablet by mouth once daily Ferrous Sulfate 325 mg (65 mg iron) tablet Discontinued 325 mg PO daily January 18, 2025 12:00am February 19, 2025 9:41am finasteride 5 mg oral tablet (20 sources) 5-alpha Reductase Inhibitor Start: 09-08-2021 End: 12-06-2023 take 1 tablet by mouth once daily Finasteride 5 mg tablet Discontinued 5 mg PO DAILY September 08, 2021 12:00am December 06, 2023 10:33am gabapentin 100 mg oral capsule (20 sources) Anti-epileptic Agent Start: 10-27-2022 End: 12-06-2023 take 1 capsule by mouth at bedtime Gabapentin 100 mg capsule Discontinued 100 mg PO AT BEDTIME October 27, 2022 12:00am December 06, 2023 10:33am methylPREDNISolone 4 mg oral tablet (20 sources) Corticosteroid Start: 07-02-2022 End: 07-08-2022 take 1 tablet by mouth once Methylprednisolone (Medrol (Trever)) 4 mg tablets,dose pack Discontinued 4 mg PO per package directions 21 6 0 July 02, 2022 1:00am July 07, 2022 1:00am [...] 12:00am May 26, 2021 11:37am Multivitamin Tablet (10 sources) Start: 09-11-2020 End: 05-26-2021 Multivitamin Tablet Discontinued 1 {tbl} PO DAILY September 11, 2020 12:00am May 26, 2021 11:37am nortriptyline 10 mg oral capsule (6 sources) Tricyclic Antidepressant Start: 11-15-2016 take 1 tablet by mouth once daily NORTRIPTYLINE HCL 10 MG CAPS One tablet by mouth daily NORTRIPTYLINE HCL [id number] Melia Martinez LPN omeprazole 20 mg delayed release oral capsule (20 sources) Proton Pump Inhibitor Start: 09-11-2020 End: 05-26-2021 Omeprazole 20 mg Capsule,Delayed Release(Dr/Ec) Discontinued 20 mg PO NEEDED as needed for Heartburn September 11, 2020 12:00am May 26, 2021 11:37am Start: 11-01-2018 omeprazole (NE ILOSEC) 40 mg capsule 40 mg once daily. 11/01/2018 Active oxyCODONE hydrochloride 5 mg oral capsule (19 sources) Opioid Agonist Start: 11-03-2022 End: 06-26-2024 take 1 capsule by mouth every six hours as needed for pain Oxycodone 5 mg capsule Discontinued 5 mg PO EVERY 6 HOURS as needed for pain 10 3 0 November 03, 2022 June 26, 2024 5:22pm Prostatism Benign prostatic hyperplasia without lower urinary tract symptoms PARoxetine hydrochloride 10 mg oral tablet (3 sources) Serotonin Reuptake Inhibitor Start: 01-18-2025 End: 02-12-2025 take 1 tablet by mouth once daily Paroxetine Hcl 10 mg tablet Discontinued 10 mg PO daily January 18, 2025 12:00am February 12, 2025 10:39am pregabalin 50 mg oral capsule (3 sources) Start: 01-18-2025 End: 02-19-2025 take 1 capsule by mouth twice daily Pregabalin 50 mg capsule Discontinued 50 mg PO TWICE A DAY January 18, 2025 12:00am February 19, 2025 9:50am simethicone 80 mg chewable tablet (13 sources) Start: 01-18-2025 End: 02-12-2025 Simethicone 80 mg tablet,chewable Discontinued 80 mg PO 2 to 4 times per day as needed January 18, 2025 12:00am February 12, 2025 10:39am Start: 12-06-2023 End: 06-26-2024 Simethicone (Gas Relief (Sim ethicone)) 80 mg tablet,chewable Discontinued 80 mg PO 2 to 4 times per day as needed for abdominal distention and gas 120 1 December 06, 2023 12:00am June 26, 2024 [...] One tablet by mouth daily TAMSULOSIN HCL [id number] Melia Martinez POT PUSHER traMADol hydrochloride 50 mg oral tablet (20 sources) Opioid Agonist Start: 07-02-2022 End: 09-19-2023 [...] sources) Abdominal pain; Translations: [Unspecified abdominal pain] Onset: 5 09-08-2021 Episodic Administrative/social admission (20 sources) Counseling procedure with explicit context; Translations: [Tobacco abuse counseling] Episodic Calculus of urinary tract (20 sources) History of calculus of kidney; Translations: [Personal history of urinary calculi] Episodic Chronic kidney disease (1 source) Chronic kidney disease; Translations: [Chronic kidney disease, stage 3a] Onset: 5 Chronic obstructive pulmonary disease and bronchiectasis (20 sources) Chronic obstructive lung disease; Translations: [Pulmonary emphysema] Onset: 7 11-15-2016 Chronic Chronic ulcer of skin (20 sources) Ankle ulcer; Translations: [Non-pressure chronic ulcer of unspecified ankle with unspecified severity] Chronic Coagulation and hemorrhagic disorders (7 sources) Thrombocytopenic disorder; Translations: [Thrombocytopenia, unspecified] Onset: 5 02-12-2025 Chronic Coronary atherosclerosis and other heart disease (7 sources) Coronary arteriosclerosis; Translations: [Atherosclerotic heart disease of [place] coronary artery without angina pectoris] Onset: 5 02-12-2025 Chronic Deficiency and other anemia (12 sources) Chronic anemia; Translations: [Anemia, unspecified] 09-19-2023 Episodic Disorders of lipid metabolism (7 sources) Dyslipidemia; Translations: [Hyperlipidemia, unspecified] Onset: 5 02-12-2025 Chronic Diverticulosis and diverticulitis (20 sources) Diverticulitis; Translations: [Diverticulitis of intestine, part unspecified, without perforation or abscess without bleeding] 09-16-2021 Chronic E Codes: Fall (10 sources) Fall; Translations: [Unspecified fall, initial encounter] 06-03-2024 Episodic Essential hypertension (20 sources) Hypertensive disorder; Translations: [Essential (primary) hypertension] Onset: Chronic Gastrointestinal hemorrhage (20 sources) Gastrointestinal hemorrhage; Translations: [Gastrointestinal hemorrhage, unspecified] 09-19-2023 Episodic Gout and other crystal arthropathies (20 sources) Gout; Translations: [Gout, unspecified] Chronic Hyperplasia of prostate (20 sources) Prostatism; Translations: [Benign prostatic hyperplasia without lower urinary tract symptoms] Chronic Mycoses (20 sources) Tinea pedis; Translations: [Tinea pedis] 10-27-2022 Episodic Nausea and vomiting (1 source) Vomiting, unspecified; Translations: [Vomiting, unspecified] Onset: Episodic Neoplasms of unspecified nature or uncertain behavior (3 sources) Neoplastic disease; Translations: [Neoplasm of unspecified behavior of bone, soft tissue, and skin] Onset: 5 12-14-2024 Episodic Open wounds of extremities (6 sources) Laceration without foreign body of right upper arm, initial encounter; Translations: [Skin tear of right upper extremity] 01-09-2025 Episodic Osteoarthritis (20 sources) Arthritis of hand; Translations: [Primary osteoarthritis, right hand] 10-27-2022 Chronic Other aftercare (8 sources) Long-term current use of anticoagulant; Translations: [FDC (current) use of 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] 11-02-2024 Episodic Other circulatory disease (10 sources) History of insertion of inferior vena caval filter; Translations: [Presence of other vascular implants and grafts] 11-21-2024 Chronic Other connective tissue disease (20 sources) Pain in calf; Translations: [Pain in left lower leg] 04-27-2020 Episodic Other connective tissue disease (20 sources) Swelling of lower limb; Translations: [Other specified soft tissue disorders] 07-12-2017 Episodic Other connective tissue disease (9 sources) Other specified soft tissue disorders; Translations: [Swelling of limb] Onset: Episodic Other connective tissue disease (3 sources) Pain of left calf; Translations: [Pain in left lower leg] 04-27-2020 Episodic Other diseases of veins and lymphatics (20 sources) Postthrombotic syndrome; 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] 07-12-2017 Chronic Other diseases of veins and lymphatics (20 sources) Chronic peripheral venous hypertension; Translations: [Chronic [...] Chronic Other diseases of veins and lymphatics (20 sources) Peripheral venous insufficiency; Translations: [Venous insufficiency (chronic) (peripheral)] 07-12-2017 Episodic Other diseases of veins and lymphatics (7 sources) Venous insufficiency (chronic) (peripheral); Translations: [Venous (peripheral) insufficiency, unspecified] Episodic Other gastrointestinal disorders (20 sources) Constipation; Translations: [Constipation, unspecified] 04-17-2022 Episodic Other lower respiratory disease (1 source) Dyspnea; Translations: [Dyspnea, unspecified] 02-19-2025 Episodic Other lower respiratory disease (1 source) Shortness of breath; Translations: [Shortness of breath] Onset: 5 Episodic Other nervous system disorders (13 sources) Paresthesia; Translations: [Paresthesia of skin] 07-13-2024 Episodic Comment on above: 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 Nonresponsive to treatment for skin disease. No STD noted. Other nervous system disorders (1 source) Disorder of perineum; Translations: [Anesthesia of skin] 12-14-2024 Episodic Other nervous system disorders (1 source) Anesthesia of skin; Translations: [Perineal numbness] Onset: 5 Episodic Other nutritional; endocrine; and metabolic disorders (2 sources) Abnormal weight loss; Translations: [Abnormal weight loss] Onset: 5 Episodic Other screening for suspected conditions (not mental disorders or infectious disease) (9 sources) Electrocardiogram abnormal; Translations: [Abnormal electrocardiogram [ECG] [EKG]] Onset: 5 02-12-2025 Episodic Otitis media and related conditions (20 sources) Dysfunction of eustachian tube; Translations: [Other specified disorders of Eustachian tube, unspecified ear] Episodic Phlebitis; thrombophlebitis and thromboembolism (20 sources) Acute deep vein thrombosis of lower limb; Translations: [Acute embolism and thrombosis of unspecified deep veins of right lower extremity] Onset: 5 06-28-2024 Episodic Residual codes; unclassified (20 sources) Tobacco user; Translations: [Tobacco use] 07-12-2017 Episodic Residual codes; unclassified (8 sources) Tobacco use; Translations: [Tobacco use disorder] Episodic Residual codes; unclassified (20 sources) Bilateral lower limb edema; Translations: [Edema, unspecified] 10-27-2022 Episodic Screening or history of mental health and substance abuse (6 sources) Tobacco dependence syndrome; Translations: [Nicotine dependence, unspecified, uncomplicated] Onset: 7 11-15-2016 Chronic Skin and subcutaneous tissue infections (20 sources) Cellulitis of hand; Translations: [Cellulitis of right upper limb] 08-17-2020 Episodic Spondylosis; intervertebral disc disorders; other back problems (15 sources) Arthritis of spine; 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 Prior attempts to ablate pain with sympathectomies noted. Spondylosis; intervertebral disc disorders; other back problems (3 sources) Spondylosis; intervertebral disc disorders; other back problems Sprains and strains (20 sources) Strain of neck muscle; Translations: [Strain of muscle, fascia and tendon at neck level, initial encounter] 07-21-2023 Episodic Substance-related disorders (7 sources) Nicotine dependence; Translations: [Nicotine dependence, unspecified, uncomplicated] Onset: 02-12-2025 Chronic Unclassified (1 source) No current problems or disability 11-12-2016 Unclassified (20 sources) 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) History of superficial thrombophlebitis Unclassified (8 sources) In 3 weeks Varicose veins of lower extremity (20 sources) 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; Translations: [Varicose veins of unspecified lower extremity with both ulcer of unspecified site and inflammation] Episodic Past or Other Problems Problem Classification Problem Date Documented Da te Episodic/Chronic Deficiency and other anemia (3 sources) Anemia, unspecified; Translations: [Anemia, unspecified] Onset: 11-14-2024 09-19-2023 Episodic Other connective tissue disease (1 source) Pain in right lower leg; Translations: [Pain in right lower leg] Onset: 07-04-2024 Episodic Other injuries and conditions due to external causes (1 source) Unspecified injury of left shoulder and upper arm, initial encounter; Translations: [Unspecified injury of left shoulder and upper arm, initial encounter] Onset: 06-19-2024 Episodic Other lower respiratory disease (10 sources) Lung mass; Translations: [Other nonspecific abnormal finding of lung field] Onset: 11-15-2016 11-15-2016 Episodic Other nervous system disorders (1 source) Paresthesia of skin; Translations: [Paresthesia of skin] Onset: 08-08-2024 Episodic Superficial injury; contusion (20 sources) Contusion of hand; Translations: [Contusion of right hand, initial encounter] Onset: 11-20-2024 10-27-2022 Episodic Unclassified (1 source) Disorder of perineum 12-14-2024 Results Test Name Value Interpretation Reference Range Facility Urine Cultureon 02-24-2025 UR Copy of report sent to Infection Control Printer MS#[id number] 02/24/25 [id number] JUSTIN. Burkholderia gladioli [place] Count 11,000-25,000 Burkholderia gladioli: REACTION levoFLOXacin Islt FCO 1 Meropenem Islt FCO 1 S Pip+Tazo Islt FCO <=4 S TMP SMX Islt FCO <=20 S Normal [facility] Comment on above: Performed By: #### M 100.2200 ####[facility] [address] [place], [address] Abdomen/Pelvis without Conto n 02-21-2025 Abdomen/Pelvis without Cont [facility] Imaging Services [address] [place] [address] Abdomen/Pelvis without Cont MR#: [id number] Acct: [id number] Name: DORIAN CRAMER Rep #: [id number] : 1935 M 89 From: Maxim Martinez MD PCP: Dr. Shoshana Ulrich MD Status: REG ER Study: Abdomen/Pelvis without Cont Date of Exam: 02/07 Exam# [id number] Ordering Dr: Chito Werner MD PROCEDURE: ABDOMEN/PELVIS WITHOUT CONT 02/21/2025 REASON FOR EXAM: PAINLESS HEMATURIA TECHNIQUE: Procedure Code: CTABDPEL Modality: CT Procedure: ABDOMEN/PELVIS WITHOUT CONT Noncontrast technique limits evaluation of the abdominal and pelvic viscera. Coronal and Sagittal reconstruction series were provided. One or more dose reduction techniques were used (e.g., Automated exposure control, adjustment of the mA and/or kV according to patient size, use of iterative reconstruction technique). COMPARISON: 10/2024. FINDINGS: Right lower lobe pleural-based density with a tail sign is again seen, unchanged from the prior CT of 10/2024, favoring round atelectasis. Continued surveillance is recommended to confirm stability. Coronary artery calcifications are present. Diffuse osseous demineralization with levoscoliosis and degenerative changes of the spine. Infrarenal abdominal aorta measures 3.6 cm with severe atherosclerosis. No suspicious lymphadenopathy, though assessment is limited without intravenous contrast. Punctate splenic calcifications consistent with sequelae of prior granulomatous infection. Left kidney contains a simple cyst. Right kidney demonstrates a nonobstructive calculus. No hydronephrosis or hydroureter. Urinary bladder is unremarkable. Dense colonic stool consistent with constipation. Colonic diverticulosis without evidence of diverticulitis. Long segment sigmoid colon wall thickening which may reflect nonspecific colitis. Fat-containing bilateral inguinal hernias. No free air or free fluid. CT/Abdomen/Pelvis without Cont IMPRESSION: Stable right lower lobe round atelectasis; continued imaging surveillance recommended. Right kidney nonobstructive calculus. Left renal simple cyst. Colonic diverticulosis without diverticulitis. Long segment sigmoid wall thickening, possibly due to nonspecific colitis; correlate clinically. Dense colonic stool suggesting constipation. Infrarenal abdominal aortic aneurysm measuring 3.6 cm with severe atherosclerosis. Fat-containing bilateral inguinal hernias. Reading Location: [address] CC: Dr. Chito Werner MD; Dr. Shoshana Ulrich MD Nuclear Equipment Research Engineer: Signed Normal [facility] Basic Metabolic Profile (BMP )on 02-21-2025 BUN/CRE 33.8 RATIO High 1020 [facility] Comment on above: Performed By: #### L 300.4310 #### [facility] [address] [place], [address] Calcium [Mass/Vol] 8.5 mg/dL Normal 7.6-11.0 [facility] Comment on above: Performed By: #### L 300.4310 #### [facility] [address] [place], [address] Chloride [Moles/Vol] 107 mmol/L Normal 98-108 [facility] Comment on above: Performed By: #### L 300.4310 #### [facility] [address] [place], [address] CO2 [Moles/Vol] 18.7 mmol/L Low 21.0-32.0 [facility] Comment on above: Performed By: #### L 300.4310 #### [facility] [address] [place], [address] Creatinine [Mass/Vol] 1.81 mg/dL High 0.70-1.20 [facility] Comment on above: Performed By: #### L 300.4310 #### [facility] [address] [place], [address] ECRCL 25.01 ml/min Low 50-250 [facility] Comment on above: Performed By: #### L 300.4310 #### [facility] [address] [place], [address] GAP 13 Normal 5-15 [facility] Comment on above: Performed By: #### L 300.4310 #### [facility] [address] [place], [address] GFR/1.73 sq M.predicted among non-blacks MDRD (S/P/Bld) [Vol rate/Area] 36 mL/min/{1.73_m2} Low >60 [facility] Comment on above: Result Comment: mL/m in/1.73m2 CKD-EPI Creatinine Equation (2020) Performed By: #### L 300.4310 #### [facility] [address] [place], [address] Glucose [Mass/Vol] 132 mg/dL High 70-99 [facility] Comment on above: Performed By: #### L 300.4310 #### [facility] [address] [place], [address] Potassium [Moles/Vol] 3.9 mmol/L Normal 3.3-5.1 [facility] Comment on above: Performed By: #### L 300.4310 #### [facility] [address] [place], [address] Sodium [Moles/Vol] 138 mmol/L Normal 133-145 [facility] Comment on above: Performed By: #### L 300.4310 #### [facility] [address] [place], [address] Urea nitrogen [Mass/Vol] 61 mg/dL High 4-19 [facility] Comment on above: Performed By: #### L 300.4310 #### [facility] [address] [place], [address] CBC W/Diff, Automatedon 10-0 Absolute Lymph 0.35 X10 3/uL Low 0.83-4.51 [facility] Comment on above: Performed By: #### L 100.0100 #### [facility] [address] [place], [address] Absolute Neut 4.2 X10 3/uL Normal 2.0-7.7 [facility] Comment on above: Performed By: #### L 100.0100 #### [facility] [address] [place], [address] Basophils/100 WBC (Bld) 0.2 % Normal 0-1 [facility] Comment on above: Performed By: #### L 100.0100 #### [facility] [address] [place], [address] Eosinophils/100 WBC (Bld) 0.0 % Normal 0-5 [facility] Comment on above: Performed By: #### L 100.0100 #### [facility] [address] [place], [address] Erythrocyte distribution width (RBC) [Ratio] 17.6 % High 11.6-14.6 [facility] Comment on above: Performed By: #### L 100.0100 #### [facility] [address] [place], [address] Hematocrit (Bld) [Volume fraction] 31.2 % Low 40-54 [facility] Comment on above: Performed By: #### L 100.0100 #### [facility] [address] [place], [address] Hemoglobin (Bld) [Mass/Vol] 10.5 g/dL Low 13.0-16.5 [facility] Comment on above: Performed By: #### L 100.0100 #### [facility] [address] [place], [address] IG% 0.900 Normal 0.0-0.9 [facility] Comment on above: Result Comment: IG% - Immature Granulocytes (promyelocytes, myelocytes and metamyelocytes) > 1% indicates that a LEFT SHIFT is Present. Performed By: #### L 100.0100 #### [facility] [address] [place], [address] Lymphocytes/100 WBC (Bld) 7.5 % Low 19-41 [facility] Comment on above: Performed By: #### L 100.0100 #### [facility] [address] [place], [address] MCH (RBC) [Entitic mass] 33.1 pg High 27.0-32.0 [facility] Comment on above: Performed By: #### L 100.0100 #### [facility] [address] [place], [address] MCHC (RBC) [Mass/Vol] 33.7 g/dL Normal 32-36 [facility] Comment on above: Performed By: #### L 100.0100 #### [facility] [address] [place], [address] MCV (RBC) [Entitic vol] 98.4 fL High 80-94 [facility] Comment on above: Performed By: #### L 100.0100 #### [facility] [address] [place], [address] Monocytes/100 WBC (Bld) 1.3 % Normal 0-10 [facility] Comment on above: Performed By: #### L 100.0100 #### [facility] [address] [place], [address] Neutrophils/100 WBC (Bld) 90.1 % High 47-70 [facility] Comment on above: Performed By: #### L 100.0100 #### [facility] [address] [place], [address] Nucleated RBC (Bld) [#/Vol] 0 10*3/uL Normal 0-5 [facility] Comment on above: Performed By: #### L 100.0100 #### [facility] [address] [place], [address] Platelet mean volume (Bld) [Entitic vol] 9.8 fL Normal 6.2-12.0 [facility] Comment on above: Performed By: #### L 100.0100 #### [facility] [address] [place], [address] Platelets (Bld) [#/Vol] 184 10*3/uL Normal 150-450 [facility] Comment on above: Performed By: #### L 100.0100 #### [facility] [address] [place], [address] RBC (Bld) [#/Vol] 3.17 10*6/uL Low 4.6-6.2 [facility] Comment on above: Performed By: #### L 100.0100 #### [facility] [address] [place], [address] RDW SD 63.5 fl High 35.1-43.9 [facility] Comment on above: Performed By: #### L 100.0100 #### [facility] [address] [place], [address] WBC (Bld) [#/Vol] 4.6 10*3/uL Normal 4.4-11.0 [facility] Comment on above: Performed By: #### L 100.0100 #### [facility] [address] [place], [address] Emergency Department Summary on 02-21-2025 Emergency Department Summary [facility] Medical Records Department [address] [place] [address] Emergency Department Summary 02/21/25 MR#: [id number] Acct: [id number] Name: DORIAN CRAMER Rep #: [id number] : 1935 89 From: Chito Werner MD PCP: Dr. Shoshana Ulrich MD Status:REG ER Location: ED [facility] History of Present Illness Chief Complaint: Complaint Narrative Narrative: 89-year-old male who denies significant past medical history except for atrial fibrillation, on Eliquis, presents with painless hematuria that began 2 hours ago. He denies any other bleeding diathesis. States he was able to urinate this morning, and it was normal. About 2 hours ago, he had bright red blood in his urine. He denies any fevers or chills, no back pain, no dysuria. No exacerbating or alleviating factors. He called EMS because of all the bright red blood in his urine. 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 Wears glasses Wears hearing aid in both ears Cancer Hx of gout CPAP (continuous positive airway pressure) dependence Shortness of breath on exertion Smoker Emphysema, unspecified Hypertension Restless legs Injury of back Home Medications ???Medication ???Instructions ???Recorded ???Last Taken ???Type amlodipine 5 mg tablet 5 mg PO DAILY BP 07/02/22 02/17/25 History artifi.tears(hypromellose)( PF) 1.7 1 drp EACH EYE DAILY PRN dry eye s 09/19/23 02/17/25 History % eye drops with applicator oxybutynin chloride 10 mg 10 mg PO DAILY OAB 09/19/23 History tablet,extended release 24 hr budesonide 160 mcg-glycopyr 9 2 inh inhalation BID COPD 01/01/25 Unknown History mcg-formot 4.8 mcg/actuation HFA inhaler (Breztri Aerosphere) albuterol sulfate 90 mcg/actuation 2 puff inhalation Q4H PRN Unknown History aerosol inhaler sob/wheezing nystatin 100,000 unit/gram topical 1 applic topical BID yeast 01/1802/17/25 History powder triamcinolone acetonide 0.1 % 1 applic topical BID PRN for feet 01/18/25 02/17/25 History topical cream apixaban 5 mg tablet (Eliquis) 5 mg PO BID 02/12/25 02/17/25 Hist ory prednisone 20 mg tablet 40 mg (2 x 20 mg) PO DAILY 7 days 02/19/25 Unknown Rx #14 tabs AMITRIPT 02/21/25 Unknown History amitriptyline 10 mg tablet 10 mg PO QPM 02/21/25 Unknown Hist ory buprenorphine 10 mcg/hour weekly 1 patch topical QWEEK 02/21/25 Unk nown History transdermal patch cephalexin 500 mg capsule 500 mg PO Q12 #14 CAPSULES 5 Unknown Rx Allergy/AdvReac Type Severity Reaction Status Date / Time tiotropium (From Spiriva Allergy Unknown unknown Verified 02/21/25 18:11 with HandiHaler) ibuprofen (From Motrin) Allergy Swelling Verified 02/21/25 18:11 Family History Mother , 61 Cancer Father , 91 AD (Alzheimer's disease) Sister Multiple sclerosis Surgical History S/P TURP (transurethral resection of prostate) History of cataract surgery History of embolic filter insertion Hx of colonoscopy with polypectomy History of hand surgery S/P insertion of spinal cord stimulator History of varicose vein stripping Hx of myringotomy History of parotidectomy History of esophagogastroduodenoscopy (EGD) History of cystoscopy Hx of basal cell carcinoma excision Hx of finger joint replacement Hx of decompressive lumbar laminectomy Social History household members: none housing: house current occupational status: retired pets and animals: Yes pets and animals: dog(s) Smoking Status: Current every day smoker tobacco type: cigarettes Tobacco: How many years used: 69 alcohol intake: current details: On avg a couple drinks each evening substance use type: does not use caffeine: Yes Type: coffee Number of servings: 2 do you feel safe at home: Yes ROS ROS ED ROS Narrative Review of systems is positive for gross hematuria. No back pain. No fevers or chills. No abdominal pain. Denies other bleeding diathesis. EXAM Physical Exam Narrative Exam Narrative: Afebrile. Vital signs noted. Nontoxic-appearing. Cardiovascular examination reveals a regular rate and rhythm. Lungs are clear to auscultation bilaterally. Abdomen is soft and nontender without guarding or rebound. Neur (more content not included)... Normal [facility] Urinalysis, Completeon 02-21 EPI,SQUAMOUS 0-5 SEEN Normal 0-5 [facility] Comment on above: Order Comment: COLOR OF URINE MAY AFFECT DIPSTICK RESULTS.CLEAN CATCH Performed By: #### L 400.0001 ####[facility] [address] [place], [address] AMORPHOUS 2+ Normal [facility] Comment on above: Order Comment: COLOR OF URINE MAY AFFECT DIPSTICK RESULTS.CLEAN CATCH Performed By: #### L 400.0001 ####[facility] [address] [place], [address] BACTERIA 3+ /hpf Normal None Seen [facility] Comment on above: Order Comment: COLOR OF URINE MAY AFFECT DIPSTICK RESULTS.CLEAN CATCH Performed By: #### L 400.0001 ####[facility] [address] [place], [address] RBC > 100 SEEN Normal 0-5 [facility] Comment on above: Order Comment: COLOR OF URINE MAY AFFECT DIPSTICK RESULTS.CLEAN CATCH Performed By: #### L 400.0001 ####[facility] [address] [place], [address] WBC >100 SEEN Normal 0-5 [facility] Comment on above: Order Comment: COLOR OF URINE MAY AFFECT DIPSTICK RESULTS.CLEAN CATCH Performed By: #### L 400.0001 ####[facility] [address] [place], [address] Mucus Ql (Urine sed) 0 SEEN Normal [facility] Comment on above: Order Comment: COLOR OF URINE MAY AFFECT DIPSTICK RESULTS.CLEAN CATCH Performed By: #### L 400.0001 ####[facility] [address] [place], [address] 12 Lead EKGon 02-19-2025 12 Lead EKG [facility] Cardiovascular Services [address] [place] [address] 12 Lead EKG 02/19/25 0841 MR#: [id number] Acct: [id number] Name: DORIAN CRAMER Rep #: [id number] : 1935 89 From: Stefan Orr MD Attending Dr: Status: DEP ER Ordering Dr: Chito Werner MD Date: 02/19/25 Location: ED Sex: M C Admitted: Test Reason : Blood Pressure : */* mmHG Vent. Rate : 79 BPM Atrial Rate : 79 BPM P-R Int : 266 ms QRS Dur : 132 ms QT Int : 410 ms P-R-T Axes : 70 -87 57 degrees QTcB Int : 470 ms Sinus rhythm with 1st degree A-V block Right bundle branch block Left anterior fascicular block Bifascicular block Septal infarct , age undetermined Abnormal ECG Confirmed by MAGO TAPIA, STEFAN ([id number]), pictures editor GIAN LIGHT ([id number]) on 02/20/2025 1:24:33 PM Referred By: REKHA Confirmed By: STEFAN ORR MD 02/20/25 1324 Date Stefan Orr MD CC: Dr. Chito Werner MD; Dr. Shoshana Ulrich MD Signed Normal [facility] Absolute lymphocyte countOrd ered By: Chito Werner on 02-19-2025 Lymphocytes Auto (Unsp spec) [#/Vol] 0.67 10*3/uL Low 0.83-4.51 [facility] Absolute neutrophil countOrd ered By: Chito Werner on 02-19-2025 Neutrophils (Bld) [#/Vol] 4.5 10*3/uL 2.0-7.7 [facility] Anion gap in Serum or Plasma Ordered By: Chito Werner on 02-19-2025 Anion gap [Moles/Vol] 18 mmol/L High 5-15 [facility] Automated lymphocyte count a s percentage of total leukocytesOrdered By: Chito Werner on 02-19-2025 Lymphocytes/100 WBC Auto (Unsp spec) 11.9 % Low 19-41 [facility] BUN/creatinine ratioOrdered By: Chito Werner on 02-19-2025 Urea nitrogen/Creatinine [Mass ratio] 54.8 mg/mg High 10 [facility] Basic Metabolic Profile (BMP )on 02-19-2025 BUN/CRE 54.8 RATIO High 03-04 [facility] Comment on above: Performed By: #### L 300.4310 #### [facility] [address] [place], [address] Calcium [Mass/Vol] 8.1 mg/dL Normal 7.6-11.0 [facility] Comment on above: Performed By: #### L [id number] #### [facility] [address] [place], [address] Chloride [Moles/Vol] 108 mmol/L Normal 98-108 [facility] Comment on above: Performed By: #### [id number] #### [facility] [address] [place], [address] CO2 [Moles/Vol] 14.1 mmol/L Low 21.0-32.0 [facility] Comment on above: Performed By: #### [id number] #### [facility] [address] [place], [address] Creatinine [Mass/Vol] 1.45 mg/dL High 0.70-1.20 [facility] Comment on above: Performed By: #### [id number] #### [facility] [address] [place], [address] GAP 18 High 5-15 [facility] Comment on above: Performed By: #### L 300.4310 #### [facility] [address] [place], [address] GFR/1.73 sq M.predicted among non-blacks MDRD (S/P/Bld) [Vol rate/Area] 47 mL/min/{1.73_m2} Low >60 [facility] Comment on above: Result Comment: mL/m in/1.73m2 CKD-EPI Creatinine Equation (2020) Performed By: #### L 300.4310 #### [facility] [address] [place], [address] Glucose [Mass/Vol] 125 mg/dL High 70-99 [facility] Comment on above: Performed By: #### L 300.4310 #### [facility] [address] [place], [address] Potassium [Moles/Vol] 4.0 mmol/L Normal 3.3-5.1 [facility] Comment on above: Result Comment: Hemo lysis present, Results??could be affected. ?? Performed By: #### L 300.4310 #### [facility] [address] [place], [address] Sodium [Moles/Vol] 140 mmol/L Normal 133-145 [facility] Comment on above: Performed By: #### L 300.4310 #### [facility] [address] [place], [address] Urea nitrogen [Mass/Vol] 79 mg/dL High 4-19 [facility] Comment on above: Performed By: #### L 300.4310 #### [facility] [address] [place], [address] Basophil percentageOrdered B y: Chito Werner on 02-19-2025 Basophils/100 WBC (Bld) 0.7 % 0-1 [facility] CBC W/Diff, Automatedon 10-0 7-2025 Absolute Lymph 0.67 X10 3/uL Low 0.83-4.51 [facility] Comment on above: Performed By: #### L 300.4310 #### [facility] [address] [place], [address] Absolute Neut 4.5 X10 3/uL Normal 2.0-7.7 [facility] Comment on above: Performed By: #### L [id number] #### [facility] [address] [place], [address] Basophils/100 WBC (Bld) 0.7 % Normal 0-1 [facility] Comment on above: Performed By: #### L [id number] #### [facility] [address] [place], [address] Eosinophils/100 WBC (Bld) 0.9 % Normal 0-5 [facility] Comment on above: Performed By: #### L [id number] #### [facility] [address] [place], [address] Erythrocyte distribution width (RBC) [Ratio] 17.6 % High 11.6-14.6 [facility] Comment on above: Performed By: #### L [id number] #### [facility] [address] [place], [address] Hematocrit (Bld) [Volume fraction] 31.0 % Low 40-54 [facility] Comment on above: Performed By: #### L [id number] #### [facility] [address] [place], [address] Hemoglobin (Bld) [Mass/Vol] 10.5 g/dL Low 13.0-16.5 [facility] Comment on above: Performed By: #### L 300.4310 #### [facility] [address] [place], [address] IG% 0.900 Normal 0.0-0.9 [facility] Comment on above: Result Comment: IG% - Immature Granulocytes (promyelocytes, myelocytes and metamyelocytes) > 1% indicates that a LEFT SHIFT is Present. Performed By: #### L 300.4310 #### [facility] [address] [place], [address] Lymphocytes/100 WBC (Bld) 11.9 % Low 19-41 [facility] Comment on above: Performed By: #### L [id number] #### [facility] [address] [place], [address] MCH (RBC) [Entitic mass] 33.2 pg High 27.0-32.0 [facility] Comment on above: Performed By: #### L [id number] #### [facility] [address] [place], [address] MCHC (RBC) [Mass/Vol] 33.9 g/dL Normal 32-36 [facility] Comment on above: Performed By: #### L [id number] #### [facility] [address] [place], [address] MCV (RBC) [Entitic vol] 98.1 fL High 80-94 [facility] Comment on above: Performed By: #### L [id number] #### [facility] [address] [place], [address] Monocytes/100 WBC (Bld) 5.9 % Normal 0-10 [facility] Comment on above: Performed By: #### L [id number] #### [facility] [address] [place], [address] Neutrophils/100 WBC (Bld) 79.7 % High 47-70 [facility] Comment on above: Performed By: #### L 300.4310 #### [facility] [address] [place], [address] Nucleated RBC (Bld) [#/Vol] 0 10*3/uL Normal 0-5 [facility] Comment on above: Performed By: #### L 300.4310 #### [facility] [address] [place], [address] Platelet mean volume (Bld) [Entitic vol] 10.1 fL Normal 6.2-12.0 [facility] Comment on above: Performed By: #### L 300.4310 #### [facility] [address] [place], [address] Platelets (Bld) [#/Vol] 208 10*3/uL Normal 150-450 [facility] Comment on above: Performed By: #### L [id number] #### [facility] [address] [place], [address] RBC (Bld) [#/Vol] 3.16 10*6/uL Low 4.6-6.2 [facility] Comment on above: Performed By: #### L 300.4310 #### [facility] [address] [place], [address] RDW SD 61.4 fl High 35.1-43.9 [facility] Comment on above: Performed By: #### L 300.4310 #### [facility] [address] [place], [address] WBC (Bld) [#/Vol] 5.6 10*3/uL Normal 4.4-11.0 [facility] Comment on above: Performed By: #### L 300.4310 #### [facility] [address] [place], [address] Carbon dioxide, total [Moles /volume] in Central venous bloodOrdered By: Chito Werner on 02-19-2025 CO2 [Moles/Vol] 14.1 mmol/L Low 21.0-32.0 [facility] Chest 1 View (Portable)on Chest 1 View (Portable) [facility] Imaging Services [address] [place] [address] Chest 1 View (Portable) MR#: [id number] Acct: [id number] Name: DORIAN CRAMER Rep #: [id number] : 1935 M 89 From: Marty Melgar MD PCP: Dr. Shoshana Ulrich MD Status: REG ER Study: Chest 1 View (Portable) Date of Exam: 02/19/25 Exam# [id number] Ordering Dr: Chito Werner MD PROCEDURE: CHEST 1 VIEW (PORTABLE) 02/19/2025 REASON FOR EXAM: SHORTNESS OF BREATH TECHNIQUE: Frontal view of the chest. COMPARISON: July 21, 2023 FINDINGS: Hardware: EKG leads. Thoracic neurostimulator midthoracic spine. Heart: Normal-size. Aorta is atherosclerotic. Lungs: Right hilar granulomas. Lungs are clear. No pneumothorax or pleural effusion. Minimal atelectasis left base. Bones: Old, healed fractures posterior right upper ribs. Curvature thoracic and thoracolumbar spine. RAD/Chest 1 View (Portable) IMPRESSION: No acute abnormality Reading Location: [facility] CC: Dr. Chito Werner MD; Dr. 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 Shoshana Miedel, MD Status:DEP ER Location: ED HPI History of Present Illness Chief Complaint: Shortness of Breath Narrative Narrative: 89-year-old male presents via EMS with 2 days of shortness of breath and "heavy breathing". He has past medical history of COPD, states he does not wear oxygen at home but continues to smoke and has been for the last 69 years. He states he is down to 10 cigarettes a day. He has an inhaler at home, both long-acting and short acting. 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 He states he has had shortness of breath for the last 2 days. No fevers or chills, no cough, no chest pain or leg swelling. 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 Wears glasses Wears hearing aid in both ears Cancer Hx of gout CPAP (continuous positive airway pressure) dependence Shortness of breath on exertion Smoker Emphysema, unspecified Hypertension Restless legs Injury of back Home Medications ???Medication ???Instructions ???Recorded ???Last Taken ???Type amlodipine 5 mg tablet 5 mg PO DAILY BP 07/02/22 02/17/25 History artifi.tears(hypromellose)( PF) 1.7 1 drp EACH EYE DAILY PRN dry eye s 09/19/23 02/17/25 History % eye drops with applicator oxybutynin chloride 10 mg 10 mg PO DAILY OAB 09/19/23 History tablet,extended release 24 hr budesonide 160 mcg-glycopyr 9 2 inh inhalation BID COPD 01/01/25 Unknown History mcg-formot 4.8 mcg/actuation HFA inhaler (Breztri Aerosphere) albuterol sulfate 90 mcg/actuation 2 puff inhalation Q4H PRN Unknown History aerosol inhaler sob/wheezing nystatin 100,000 unit/gram topical 1 applic topical BID yeast 01/1802/17/25 History powder triamcinolone acetonide 0.1 % 1 applic topical BID PRN for feet 01/18/25 02/17/25 History topical cream apixaban 5 mg tablet (Eliquis) 5 mg PO BID 02/12/25 02/17/25 Hist ory prednisone 20 mg tablet 40 mg (2 x 20 mg) PO DAILY 7 days 02/19/25 Unknown Rx #14 tabs Allergy/AdvReac Type Severity Reaction Status Date / Time tiotropium (From Spiriva Allergy Unknown unknown Verified 02/19/25 08:33 with HandiHaler) ibuprofen (From Motrin) Allergy Swelling Verified 02/19/25 08:33 Family History Mother , 61 Cancer Father , 91 AD (Alzheimer's disease) Sister Multiple sclerosis Surgical History S/P TURP (transurethral resection of prostate) History of cataract surgery History of embolic filter insertion Hx of colonoscopy with polypectomy History of hand surgery S/P insertion of spinal cord stimulator History of varicose vein stripping Hx of myringotomy History of parotidectomy History of esophagogastroduodenoscopy (EGD) History of cystoscopy Hx of basal cell carcinoma excision Hx of finger joint replacement Hx of decompressive lumbar laminectomy Social History household members: none housing: house current occupational status: retired pets and animals: Yes pets and animals: dog(s) Smoking Status: Current every day smoker tobacco type: cigarettes Tobacco: How many years used: 69 alcohol intake: current details: On avg a couple drinks each evening substance use type: does not use caffeine: Yes Type: coffee Number of servings: 2 do you feel safe at home: Yes ROS ROS ED ROS Narrative Review of systems positive for shortness of breath, heavy breathing, no chest pain, no fevers or chills, no cough, no leg swelling. No history of CHF. No exacerbating or alleviating factors. Does not wear oxygen at home. EXAM Physical Exam Narrative Exam Narrative: Afebrile. Vital signs noted. Nontoxic-appearing. Cardiovascular examination feels regular rate and rhythm. Lungs are clear to auscultation bilaterally, moving a good amount of air, speaking in full sentences, no respiratory distress. Mild tachypnea. Abdomen soft and nontender without guarding or rebound. Positive bowel sounds. Neurological examination nonfocal, nonlateralizing. Awake, alert, interactive, answeri (more content not included)... Normal [facility] Eosinophil percentageOrdered By: Chito Werner on 02-19-2025 Eosinophils/100 WBC (Bld) 0.9 % 0-5 [facility] Erythrocyte distribution wid th ratioOrdered By: Chito Werner on 02-19-2025 Erythrocyte distribution width (RBC) [Ratio] 17.6 % High 11.6-14.6 [facility] Erythrocyte distribution wid th standard deviationOrdered By: Chito Werner on 02-19-2025 Erythrocyte distribution width (RBC) [Ratio] 61.4 fl High 35.1-43.9 [facility] Glomerular filtration rate ( GFR) estimation/1.73 sq m using serum, plasma, or whole bOrdered By: Chito Werner on 02-19-2025 GFR/1.73 sq M.predicted among non-blacks MDRD (S/P/Bld) [Vol rate/Area] 47 mL/min/{1.73_m2} Low >60 [facility] Comment on above: mL/min/1.73m2 CKD-EP I Creatinine Equation (2020) Hematocrit Auto (Bld) [Volum e fraction]Ordered By: Chito Werner on 02-19-2025 Hematocrit (Bld) [Volume fraction] 31.0 % Low 40-54 [facility] Hemoglobin measurementOrdere d By: Chito Werner on 02-19-2025 Hemoglobin (Bld) [Mass/Vol] 10.5 g/dL Low 13.0-16.5 [facility] Immature granulocytes/100 WB C Auto (Bld)Ordered By: Chito Werner on 02-19-2025 Immature granulocytes/100 WBC (Bld) 0.900 % 0.0-0.9 [facility] Comment on above: IG% - Immature Granu locytes (promyelocytes, myelocytes and metamyelocytes) > 1% indicates that a LEFT SHIFT is Present. MCV (mean corpuscular volume ) determinationOrdered By: Chito Werner on 02-19-2025 MCV (RBC) [Entitic vol] 98.1 fL High 80-94 [facility] Mean corpuscular hemoglobin (MCH) determinationOrdered By: Chito Werner on 02-19-2025 MCH (RBC) [Entitic mass] 33.2 pg High 27.0-32.0 [facility] Mean corpuscular hemoglobin concentration (MCHC) determinationOrdered By: Chito Werner on 02-19-2025 MCHC (RBC) [Mass/Vol] 33.9 g/dL 32-36 [facility] Mean platelet volume determi nationOrdered By: Chito Werner on 02-19-2025 Platelet mean volume (Bld) [Entitic vol] 10.1 fL 6.2-12.0 [facility] Monocyte percentageOrdered B y: Chito Werner on 02-19-2025 Monocytes/100 WBC (Bld) 5.9 % 0-10 [facility] Neutrophil percentageOrdered By: Chito Werner on 02-19-2025 Neutrophils/100 WBC (Bld) 79.7 % High 47-70 [facility] Nucleated red blood cell per centageOrdered By: Chito Werner on 02-19-2025 Nucleated RBC/100 WBC (Bld) [Ratio] 0 % 0-5 [facility] Platelet countOrdered By: Deven Werner on 02-19-2025 Platelets (Bld) [#/Vol] 208 10*3/uL 150-450 [facility] Potassium measurement (mass/ volume)Ordered By: Chito Werner on 02-19-2025 Potassium (Unsp spec) [Mass/Vol] 4.0 mmol/L 3.3-5.1 [facility] Comment on above: Hemolysis present, R esults could be affected. RBC Auto (Bld) [#/Vol]Ordere d By: Chito Werner on 02-19-2025 RBC (Bld) [#/Vol] 3.16 10*6/uL Low 4.6-6.2 [facility] Serum creatinine measurement (mass/volume)Ordered By: Chito Werner on 02-19-2025 Creatinine [Mass/Vol] 1.45 mg/dL High 0.70-1.20 [facility] Serum glucose measurement (m ass/volume)Ordered By: Chito Werner on 02-19-2025 Glucose [Mass/Vol] 125 mg/dL High 70-99 [facility] Serum or plasma calcium marlin urement (mass/volume)Ordered By: Chito Garciaai on 02-19-2025 Calcium [Mass/Vol] 8.1 mg/dL 7.6-11.0 [facility] Serum or plasma urea nitroge n measurement (mass/volume)Ordered By: Chito Werner on 02-19-2025 Urea nitrogen [Mass/Vol] 79 mg/dL High 4-19 [facility] Sodium levelOrdered By: Chito Werner on 02-19-2025 Sodium [Moles/Vol] 140 mmol/L 133-145 [facility] White blood cell (WBC) count Ordered By: Chito Zeejuan on 02-19-2025 WBC (Bld) [#/Vol] 5.6 10*3/uL 4.4-11.0 [facility] Cardiology Visit Reporton Cardiology Visit Report [facility] [facility] [place] [address] OFFICE VISIT Date of Service: 02/12/25 MR#: [id number] Acct: [id number] Name: DORIAN CRAMER Rep #: [id number] : 1935 Provider: Dr. Blas Arellano MD Age/Sex: 89/M Location: [facility] Status: Signed HPI HPI History of Present Illness Details: This gentleman has past medical history significant for hypertension, unprovoked DVT, COPD and nicotine dependence. He is being planned for bladder surgery. As part of his workup, an ECG was done. It was noted to be abnormal with right bundle branch block and left anterior fascicular block. 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 We are asked to evaluate his cardiac risk for the proposed procedure. Patient denies any chest pains or shortness of breath either at rest or with exertion. Denies any palpitations. No lightheadedness or dizziness. No syncope or presyncope. No orthopnea. No PND. 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: No Accompanied by: Self Is patient in pain?: No Allergies tiotropium (From Spiriva with HandiHaler) Allergy (Unknown, Verified 02/12/25 10:38) unknown ibuprofen (From Motrin) Allergy (Verified 02/12/25 10:38) Swelling Medications ???Medication ???Instructions ???Recorded ???Confirmed ???Type amlodipine 5 mg tablet 5 mg PO DAILY BP 07/02/22 02/12/25 History artifi.tears(hypromellose)( PF) 1.7 1 drp EACH EYE DAILY PRN dry eye s 09/19/23 02/12/25 History % eye drops with applicator oxybutynin chloride 10 mg 10 mg PO DAILY OAB 09/19/23 History tablet,extended release 24 hr oxycodone-acetaminophen 5 mg-325 1 tab PO TID PRN PRN pain 11/02/24 02/12/25 History mg tablet budesonide 160 mcg-glycopyr 9 2 inh inhalation BID COPD 01/01/25 02/12/25 History mcg-formot 4.8 mcg/actuation HFA inhaler (Breztri Aerosphere) AMITRIPT 5% LIDO 5% KETAMINE 10% topical .1-3 TIMES DAILY PRN 01/1802/12/25 History albuterol sulfate 90 mcg/actuation 2 puff inhalation Q4H PRN 02/12/25 History aerosol inhaler sob/wheezing ferrous sulfate 325 mg (65 mg 325 mg PO QDAY 01/18/25 02/12/25 H istory iron) tablet nystatin 100,000 unit/gram topical 1 applic topical BID yeast 01/1802/12/25 History powder pregabalin 50 mg capsule 50 mg PO BID 01/18/25 02/12/25 His tory triamcinolone acetonide 0.1 % applic topical BID PRN 01/18/25 History topical cream apixaban 5 mg tablet (Eliquis) 5 mg PO BID 02/12/25 02/12/25 Hist ory Ejection fraction %: 55 Have you fallen in the past year?: Yes (loses balance) PFS Medical History Cellulitis of right upper extremity Skin tear of right upper extremity Depression Arthritis Ambulates with cane Bladder disease DVT (deep venous thrombosis) Restless legs COPD (chronic obstructive pulmonary disease) History of pain when walking Neuropathy Pain Alcohol use History of echocardiogram Hypertension History of edema 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 Wears glasses Wears hearing aid in both ears Cancer Hx of gout CPAP (continuous positive airway pressure) dependence Shortness of breath on exertion Smoker Emphysema, unspecified Hypertension Restless legs Injury of back Surgical History S/P TURP (transurethral resection of prostate) History of cataract surgery History of embolic filter insertion Hx of colonoscopy with polypectomy History of hand surgery S/P insertion of spinal cord stimulator History of varicose vein stripping Hx of myringotomy History of parotidectomy History of esophagogastroduodenoscopy (EGD) History of cystoscopy Hx of basal cell carcinoma excision Hx of finger joint replacement Hx of decompressive lumbar laminectomy Family History Mother , 61 Cancer Father , 91 AD (Alzheimer's disease) Sister Multiple sclerosis Social History household members: none housing: house current occupational status: retired pets and animals: Yes pets and animals: dog(s) Smoking Status: Current every day smoker tobacco type: cigarettes Tobacco: How many years used: 69 alcohol intake: current details: On avg a couple drinks each evening substance use type: does not use caffeine: Yes Type: coffee Number of (more content not included)... Normal [facility] Anion gap in Serum or Plasma Ordered By: Shoshana Ulrich on 01-24-2025 Anion gap [Moles/Vol] 17 mmol/L High - [facility] BUN/creatinine ratioOrdered By: Shoshana Ulrich on 01-24-2025 Urea nitrogen/Creatinine [Mass ratio] 23.8 mg/mg High 03-04 [facility] Bilirubin, totalOrdered By: Shoshana Ulrich on 01-24-2025 Bilirubin [Mass/Vol] 0.22 mg/dL 0.00-1.30 [facility] CBC-Complete Blood Cnt No Sarika ffon 01-24-2025 Erythrocyte distribution width (RBC) [Ratio] 15.1 % High 11.6-14.6 [facility] Comment on above: Performed By: #### L 300.4310 #### [facility] [address] [place], [address] Hematocrit (Bld) [Volume fraction] 35.8 % Low 40-54 [facility] Comment on above: Performed By: #### L 300.4310 #### [facility] [address] [place], [address] Hemoglobin (Bld) [Mass/Vol] 11.7 g/dL Low 13.0-16.5 [facility] Comment on above: Performed By: #### L 300.4310 #### [facility] [address] [place], [address] MCH (RBC) [Entitic mass] 33.0 pg High 27.0-32.0 [facility] Comment on above: Performed By: #### L [id number] #### [facility] [address] [place], [address] MCHC (RBC) [Mass/Vol] 32.7 g/dL Normal 32-36 [facility] Comment on above: Performed By: #### L [id number] #### [facility] [address] [place], [address] MCV (RBC) [Entitic vol] 100.8 fL High 80-94 [facility] Comment on above: Performed By: #### L [id number] #### [facility] [address] [place], [address] Platelet mean volume (Bld) [Entitic vol] 12.8 fL High 6.2-12.0 [facility] Comment on above: Performed By: #### L 300.4310 #### [facility] [address] [place], [address] Platelets (Bld) [#/Vol] 106 10*3/uL Low 150-450 [facility] Comment on above: Performed By: #### L [id number] #### [facility] [address] [place], [address] RBC (Bld) [#/Vol] 3.55 10*6/uL Low 4.6-6.2 [facility] [facility] Comment on above: Performed By: #### L 300.4310 #### [facility] [address] [place], [address] RDW SD 56.5 fl High 35.1-43.9 [facility] Comment on above: Performed By: #### L 300.4310 #### [facility] [address] [place], [address] WBC (Bld) [#/Vol] 5.7 10*3/uL Normal 4.4-11.0 [facility] Comment on above: Performed By: #### L 300.4310 #### [facility] [address] [place], [address] Carbon dioxide, total [Moles /volume] in Central venous bloodOrdered By: Shoshana Ulrich on 01-24-2025 CO2 [Moles/Vol] 19.4 mmol/L Low 21.0-32.0 [facility] Chloride assayOrdered By: Paul Ulrich on 01-24-2025 Chloride [Moles/Vol] 101 mmol/L 98-108 [facility] Comprehensive Metabolic Prof ilon 01-24-2025 Albumin [Mass/Vol] 3.8 g/dL Normal 3.4-4.8 [facility] Comment on above: Performed By: #### L 300.4310 #### [facility] [address] [place], [address] Albumin/Globulin [Mass ratio] 1.5 {ratio} Normal 0.9-2.4 [facility] Comment on above: Performed By: #### L 300.4310 #### [facility] [address] [place], [address] ALK PHOS 57 U/L Normal 40-129 [facility] Comment on above: Performed By: #### L 300.4310 #### [facility] [address] [place], [address] ALT [Catalytic activity/Vol] 19 U/L Normal <=46 [facility] Comment on above: Performed By: #### L 300.4310 #### [facility] [address] [place], [address] AST [Catalytic activity/Vol] 25 U/L Normal <=37 [facility] Comment on above: Performed By: #### L 300.4310 #### [facility] [address] [place], [address] Bilirubin [Mass/Vol] 0.22 mg/dL Normal 0.00-1.30 [facility] Comment on above: Performed By: #### L 300.4310 #### [facility] [address] [place], [address] BUN/CRE 23.8 RATIO High 10-20 [facility] Comment on above: Performed By: #### L 300.4310 #### [facility] [address] [place], [address] Calcium [Mass/Vol] 8.8 mg/dL Normal 7.6-11.0 [facility] Comment on above: Performed By: #### L 300.4310 #### [facility] [address] [place], [address] Chloride [Moles/Vol] 101 mmol/L Normal 98-108 [facility] Comment on above: Performed By: #### L 300.4310 #### [facility] [address] [place], [address] CO2 [Moles/Vol] 19.4 mmol/L Low 21.0-32.0 [facility] Comment on above: Performed By: #### L 300.4310 #### [facility] [address] [place], [address] Creatinine [Mass/Vol] 1.81 mg/dL High 0.70-1.20 [facility] Comment on above: Performed By: #### L 300.4310 #### [facility] [address] [place], [address] GAP 17 High 5-15 [facility] Comment on above: Performed By: #### L 300.4310 #### [facility] [address] [place], [address] GFR/1.73 sq M.predicted among non-blacks MDRD (S/P/Bld) [Vol rate/Area] 36 mL/min/{1.73_m2} Low >60 [facility] Comment on above: Result Comment: mL/m in/1.73m2 CKD-EPI Creatinine Equation (2020) Performed By: #### L 300.4310 #### [facility] [address] [place], [address] Globulin (S) [Mass/Vol] 2.5 g/dL Normal 2.2-4.2 [facility] Comment on above: Performed By: #### L 300.4310 #### [facility] [address] [place], [address] Glucose [Mass/Vol] 104 mg/dL High 70-99 [facility] Comment on above: Performed By: #### L 300.4310 #### [facility] [address] [place], [address] Potassium [Moles/Vol] 3.5 mmol/L Normal 3.3-5.1 [facility] Comment on above: Performed By: #### L 300.4310 #### [facility] [address] [place], [address] Sodium [Moles/Vol] 137 mmol/L Normal 133-145 [facility] Comment on above: Performed By: #### L 300.4310 #### [facility] [address] [place], [address] T PROT 6.3 g/dL Normal 5.9-8.4 [facility] Comment on above: Performed By: #### L 300.4310 #### [facility] [address] [place], [address] Urea nitrogen [Mass/Vol] 43 mg/dL High 4-19 [facility] Comment on above: Performed By: #### L 300.4310 #### [facility] [address] [place], [address] Erythrocyte distribution wid th ratioOrdered By: Shoshana Ulrich on 01-24-2025 Erythrocyte distribution width (RBC) [Ratio] 15.1 % High 11.6-14.6 [facility] Erythrocyte distribution wid th standard deviationOrdered By: Shoshana Ulrich on 01-24-2025 Erythrocyte distribution width (RBC) [Ratio] 56.5 fl High 35.1-43.9 [facility] Glomerular filtration rate ( GFR) estimation/1.73 sq m using serum, plasma, or whole bOrdered By: Shoshana Ulrich on 01-24-2025 GFR/1.73 sq M.predicted among non-blacks MDRD (S/P/Bld) [Vol rate/Area] 36 mL/min/{1.73_m2} Low >60 [facility] Comment on above: mL/min/1.73m2 CKD-EP I Creatinine Equation (2020) Hematocrit Auto (Bld) [Volum e fraction]Ordered By: Shoshana Ulrich on 01-24-2025 Hematocrit (Bld) [Volume fraction] 35.8 % Low 40-54 [facility] Hemoglobin measurementOrdere d By: Shoshana Ulrich on 01-24-2025 Hemoglobin (Bld) [Mass/Vol] 11.7 g/dL Low 13.0-16.5 [facility] - Chemistry and C hemistry - challengeOrdered By: Shoshana Ulrich on 01-24-2025 AST [Catalytic activity/Vol] 25 U/L <38 [facility] MCV (mean corpuscular volume ) determinationOrdered By: Shoshana Ulrich on 01-24-2025 MCV (RBC) [Entitic vol] 100.8 fL High 80-94 [facility] Mean corpuscular hemoglobin (MCH) determinationOrdered By: Shoshana Ulrich on 01-24-2025 MCH (RBC) [Entitic mass] 33.0 pg High 27.0-32.0 [facility] Mean corpuscular hemoglobin concentration (MCHC) determinationOrdered By: Shoshana Ulrich on 01-24-2025 MCHC (RBC) [Mass/Vol] 32.7 g/dL 32-36 [facility] Mean platelet volume determi nationOrdered By: Shoshana Ulrich on 01-24-2025 Platelet mean volume (Bld) [Entitic vol] 12.8 fL High 6.2-12.0 [facility] Platelet countOrdered By: Paul Ulrich on 01-24-2025 Platelets (Bld) [#/Vol] 106 10*3/uL Low 150-450 [facility] Potassium measurement (mass/ volume)Ordered By: Shoshana Ulrich on 01-24-2025 Potassium (Unsp spec) [Mass/Vol] 3.5 mmol/L 3.3-5.1 [facility] RBC Auto (Bld) [#/Vol]Ordere d By: Shoshana Ulrich on 01-24-2025 RBC (Bld) [#/Vol] 3.55 10*6/uL Low 4.6-6.2 [facility] Serum creatinine measurement (mass/volume)Ordered By: Shoshana Ulrich on 01-24-2025 Creatinine [Mass/Vol] 1.81 mg/dL High 0.70-1.20 [facility] Serum globulin measurementOr dered By: Shoshana Ulrich on 01-24-2025 Globulin (S) [Mass/Vol] 2.5 g/dL 2.2-4.2 [facility] Serum glucose measurement (m ass/volume)Ordered By: Shoshana Ulrich on 01-24-2025 Glucose [Mass/Vol] 104 mg/dL High 70-99 [facility] Serum or plasma alanine tavarez otransferase (ALT) measurementOrdered By: Shoshana Ulrich on 01-24-2025 ALT [Catalytic activity/Vol] 19 U/L <47 [facility] Serum or plasma albumin marlin urement (mass/volume)Ordered By: Shoshana Ulrich on 01-24-2025 Albumin [Mass/Vol] 3.8 g/dL 3.4-4.8 [facility] Serum or plasma albumin/glob ulin mass ratioOrdered By: Shoshana Ulrich on 01-24-2025 Albumin/Globulin [Mass ratio] 1.5 {ratio} 0.9-2.4 [facility] Serum or plasma alkaline erin sphatase measurementOrdered By: Shoshana Ulrich on 01-24-2025 ALP [Catalytic activity/Vol] 57 U/L 40-129 [facility] Serum or plasma calcium marlin urement (mass/volume)Ordered By: Shoshana Ulrich on 01-24-2025 Calcium [Mass/Vol] 8.8 mg/dL 7.6-11.0 [facility] Serum or plasma urea nitroge n measurement (mass/volume)Ordered By: Shoshana Ulrich on 01-24-2025 Urea nitrogen [Mass/Vol] 43 mg/dL High 4-19 [facility] Sodium levelOrdered By: Dario Ulrich on 01-24-2025 Sodium [Moles/Vol] 137 mmol/L 133-145 [facility] TSH DL <= 0.005 mIU/L QnOrde red By: Shoshana Ulrich on 01-24-2025 TSH Qn 1.170 uIU/mL 0.300-4.20 0 [facility] Thyroid Stim Hormone (TSH)on 01-24-2025 TSH 1.170 uIU/mL Normal 0.300-4.20 0 [facility] Comment on above: Performed By: #### L 100.0500, L500.2500 #### [facility] [address] [place], [place], [address] Total proteinOrdered By: Marlon Baileymac on 01-24-2025 Protein [Mass/Vol] 6.3 g/dL 5.9-8.4 [facility] White blood cell (WBC) count Ordered By: Shoshananadege Ulrich on 01-24-2025 WBC (Bld) [#/Vol] 5.7 10*3/uL 4.4-11.0 [facility] Urgent Care Visit Reporton 0 01-09-2025 Urgent Care Visit Report [facility] [address], [address] [place] [address] OFFICE VISIT Date of Service: 01/09/25 MR#: [id number] Acct: [id number] Name: DORIAN CRAMER Rep #: [id number] : 1935 Provider: AARON Tracey Age/Sex: 89/M Location: [facility] Status: Signed Intake Vital Signs 11/05/24 11:33 01/09/25 10:00 Height 5 ft 5 in BP 142/62 H Blood Pressure Location Lt brachial Position Sitting Respiration 16 Pulse 66 Pulse Source NIBP Temp 98.0 F Temp Source Oral Pulse Oximetry (%) 93 Oxygen Delivery Method room air Intake Visit Reasons: 2 wounds on R arm and hand Chief Complaint: right arm/hand wound Securities Teller Required: No Is patient in pain?: No Allergies ibuprofen (From Motrin) Allergy (Verified 01/09/25 10:00) Swelling Have you fallen in the past year?: Yes Nurse's Note: pt scraped right hand and right forearm on door approx 2 weeks ago. right hand wound with slough in bed, no active bleeding or drainage. right forearm skin tear x 2 from same injury. red beefy tissue in wound bed, no active bleeding or drainage noted. pt denies fever or additional injuries. 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 Wears glasses Wears hearing aid in both ears Cancer Hx of gout CPAP (continuous positive airway pressure) dependence Shortness of breath on exertion Smoker Emphysema, unspecified Hypertension Restless legs Injury of back Surgical History (Updated 01/01/25 @ 09:23 by Monica Cochran) History of embolic filter insertion Hx of colonoscopy with polypectomy History of hand surgery S/P insertion of spinal cord stimulator History of varicose vein stripping Hx of myringotomy History of parotidectomy History of esophagogastroduodenoscopy (EGD) History of cystoscopy Hx of basal cell carcinoma excision Hx of finger joint replacement Hx of decompressive lumbar laminectomy Family History Mother , 61 Cancer Father , 91 AD (Alzheimer's disease) Social History (Updated 11/21/24 @ 11:40 by Mary Vaca) household members: spouse and none housing: house current occupational status: retired pets and animals: Yes pets and animals: dog(s) Smoking Status: Current every day smoker tobacco type: cigarettes Tobacco: How many years used: 69 alcohol intake: current details: On avg a couple drinks each evening substance use type: does not use caffeine: Yes Type: coffee Number of servings: 2 do you feel safe at home: Yes HPI HPI Chief Complaint: right arm/hand wound Details: DORIAN CRAMER, is a 89 M who presents to the office today [facility] s/p pt scraped right hand and right forearm on door 2 weeks ago. Right hand wound v-shaped tear w/ epidermal layer folded underneath he states - wanting it placed in anatomical position. Right forearm skin tear x 2 from same injury. No active bleeding or drainage noted from either site. No complaints of fever, chills, sweats,/dizziness, nausea/vomiting. No nidx-[id number] medications taken to assist. No other associated symptoms at/aggravating factors. ROS Const Constitutional: No other (as above) Exam Const General: cooperative, healthy appearing and no acute distress Nutritional Appearance: average body habitus Orientation: alert and awake Resp Effort Inspection: normal respiratory effort and able to speak in complete sentences Cardio Rate: regular rate Pulses: radial pulses present Skin General: no rashes or lesions noted Trauma: laceration (x2 skin tear R FA, V-shaped tear R dorsal hand; see procedure) Neuro General: patient alert and patient awake Cognition: normal cognition Speech: speech normal Extrem General: full ROM, capillary refill normal and normal exam except as noted (See skin exam; see procedure) Psych Appearance: grossly normal Mental Status: mental status grossly normal Mood: congruent mood Affect: normal affect Speech and Movement: speech and movement normal Attitude: cooperative Office Procedures Laceration Repair Procedure performed by: Eduardo Reno Explained risks and benefits to parent: Yes Informed consent given: Yes Consent signed: No (Verbal consent given) Location: Right dorsal hand Sedation: No Ane (more content not included)... Normal [facility] MR/PAT.ANEon 01-01-2025 MR/PAT.ANE [facility] Medical Records Department [address] [place] [address] PAT - Anesthesia 01/01/25 1548 MR#: [id number] Acct: [id number] Name: DORIAN CRAMER Rep #: [id number] : 1935 89 From: Armando Sepulveda MD PCP: Dr. Shoshana Ulrich MD Status:PRE [facility] Y Race: C Location: [facility] Pre-Assessment Diagnosis/Proposed Procedure Planned Operative Procedure(s): TURP WITH 100 UNITS BOTOX TO BLADDER Anesthesia History Anesthesia History - human services case manager: Anesthesia History - human services case manager Hx Hospitalization No 01/01/25 09:03 Any Problems With Anesthesia No 01/01/25 09:03 Cholinesterase deficiency No 01/01/25 09:03 You/Your Family Experience No 01/01/25 09:03 fever (hyperthermia) with Relationship Recent Exposure to Contagious No 11/05/24 08:06 Disease Does patient have nerve Yes: PT WILL TURN OFF FOR 01/01/25 09:03 stimulator SURGERY Patient instructed to have device shut off --Does patient have Pacemaker or ICD? When Was Last Pacemaker Check QUESTION #4 FULL TEXT: You/Your Family Experience fever (hyperthermia) with Anesthesia Last Oral Intake Last Oral intake: Last Oral Intake NPO since Meds taken in AM with sips of water? Meds patient instructed to take am of surgery PONV PONV - human services case manager: PONV - human services case manager Female No 01/01/25 09:03 HX of Motion Sickness No 01/01/25 09:03 HX of N/V After Surgery No 01/01/25 09:03 Non-Smoker No 01/01/25 09:03 Duration of Surgery greater Yes 01/01/25 09:03 than 60 minutes Number of Risk Factors 1 01/01/25 09:03 PONV Score Low Risk 01/01/25 09:03 Height Weight Height Weight: Anesthesia: Height Weight Height 5 ft 5 in 11/05/24 11:33 Respiratory Assessment Respiratory Assessment - human services case manager: Respiratory Tract Infection Hx - human services case manager Hx Respiratory Tract Infection No 01/01/25 09:03 STOP Sleep Apnea STOP Sleep Apnea - human services case manager: STOP Sleep Apnea - human services case manager Hx Hypertension Yes: CONTROLLED WITH MED 01/01/25 09:03 Hx Sleep Apnea Yes 01/01/25 09:03 CPAP Yes 01/01/25 09:03 BIPAP No 01/01/25 09:03 Do you snore loudly (louder than talking or can be heard Do you often feel tired/ fatigued/ sleepy during daytime? Has anyone observed you stop breathing during sleep? STOP Results Positive 01/01/25 09:03 QUESTION #5 FULL TEXT : Do you snore loudly (louder than talking or can be heard through closed doors)? 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 Specify any problems Hx of Preganancy in last 3 N/A 01/01/25 09:03 Months Nurse Filling Out Transfusion DSCHRIBER 01/01/25 09:03 Questions: Date: 01/01/25 01/01/25 09:03 Time: 09:05 01/01/25 09:03 Patient unable to answer at this time (ie. 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 Normal [facility] Venous duplex ultrasound rep ortOrdered By: Santana Mason on 12-20-2024 US Vein [facility] [address] [place] [address] Venous Duplex US, Unilateral 12/19/24 1416 MR#: [id number] Acct: [id number] Name: DORIAN CRAMER Rep #:[id number] : 1935 89 From: Santana Clark Attending Dr: AARON Gonzales Stat us: REG CLI Ordering Dr: Kristen Amaya Date: Location: [facility] Sex: M C Admitted: Reason For Study Reason For Study: Right leg swelling RIGHT LEFT GSV is normal. CFV is compressible, spontaneous, phasic, competent, CFV is patent and compressible. and demonstrates normal augmentation. FV is partially compressible throughout with venous flow noted. POP V is compressible, spontaneous, phasic, competent and demonstrates normal augmentation. T/P Trunk is partially compressible. PTV is compressible. RT PerV is compressible. Procedure This is a venous duplex using B-mode, color flow and spectral Doppler. Exam performed in department. Compared to 11/04/2024. VL/Venous Duplex US, Unilateral Interpretation Summary Chronic deep vein thrombosis noted in the right femoral vein, tibioperoneal trunk vein. Decreased thrombus burden from prior study. Ordering Physician: Kristen Amaya Referring Physician: Shoshana Ulrich Performed By: Em Martinez RVT 12/20/24812 Date _ Santana Mason MD CC: AARON Gonzales; Dr. Shoshana Ulrich MD ~ Date Dictated: 12/19/241415 Date Transcribed: 12/20/24812 Nuclear Equipment Research Engineer: Signed [facility] Work Phone: Venous Duplex US, Unilateral on 12-19-2024 Venous Duplex US, Unilateral [facility] [address] [place] [address] Venous Duplex US, Unilateral 12/19/241415 MR#: [id number] Acct: [id number] Name: DORIAN CRAMER Rep #: [id number] : 1935 89 From: Santana Mason MD Attending Dr: AARON Gonzales Status: REG CLI Ordering Dr: Kristen Amaya Date: 12/19/24 Location: [facility] Sex: M C Admitted: Reason For Study Reason For Study: Right leg swelling RIGHT LEFT GSV is normal. CFV is compressible, spontaneous, phasic, competent, CFV is patent and compressible. and demonstrates normal augmentation. FV is partially compressible throughout with venous flow noted. POP V is compressible, spontaneous, phasic, competent and demonstrates normal augmentation. T/P Trunk is partially compressible. PTV is compressible. RT PerV is compressible. Procedure This is a venous duplex using B-mode, color flow and spectral Doppler. Exam performed in department. Compared to 11/04/2024. VL/Venous Duplex US, Unilateral Interpretation Summary Chronic deep vein thrombosis noted in the right femoral vein, tibioperoneal trunk vein. Decreased thrombus burden from prior study. Ordering Physician: Kristen Amaya Referring Physician: Shoshana Ulrich Performed By: Em Martinez RVT 12/20/24812 Date Santana Mason MD CC: AARON Gonzales; Dr. Shoshana Ulrich MD Date Dictated: 12/19/241415 Date Transcribed: 12/20/24812 Nuclear Equipment Research Engineer: Signed [facility] 12-14-2024 [facility] Office Visit ([facility] ) DORIAN CRAMER ([id number]) 1935 M Date Time Provider Department 12/14/24 12:30 PM OLGA CHRISTIANSON [facility] During your visit today, we recorded the following information about you: Pulse Blood pressure Weight Height 75/minute 126/66 64.3 kg 1.676 m Olga Christianson PA-C 12/14/2024 1:10 PM Signed [facility] [address] [place] [address] 12/14/2024 ASSESSMENT AND PLAN: Assessment : Encounter Diagnosis ICD-10-CM 1. Neoplasm of unspecified behavior of bone, soft tissue, and skin D49.2 MRI SACRUM/COCCYX WO IVCON 2. Perineal numbness R20.0 MRI SACRUM/COCCYX WO IVCON Discussion: Mr. Cramer is a pleasant 89-year-old man here for evaluation of lumbosacral region. He has been seen by 2 different dermatologists who he indicates have opined that he has a problem in his low back nerves that might be causing penile and scrotal skin irritation and pain and numbness. He denies bowel or bladder sphincter control issues of any sort and he denies LE radiating numbness, tingling, weakness. He has not had any testing done from a spine or neurologic standpoint. EXAM Highlights: Slow to mobilize from sitting to standing and leans forward as he stands and walks. He uses a single post cane to help himself get around. This all appears to be essentially age-appropriate for an 89-year-old. He has no focal lower extremity weakness. 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 Seated SLR's are negative bilaterally. He is hyporeflexic throughout bilateral lower extremities There is some pain on palpation over the LEFT sacroiliac region and sciatic notch. IMAGING: There has not been any spine imaging completed at this point. He has not had any imaging at all here at [facility] in recent years. SUMMARY/PLAN: With his complaints of perineal skin disturbance, there is a possibility that he is experiencing a sacral nerve root issue. As a chronic smoker, I would want to rule out the possibility of bony lesion or tumor in this area. His symptoms in the skin in his groin are consistent with the same side that his SI/sciatic notch symptoms are present. If sacral/coccygeal MRI is positive, we will decide future referrals accordingly. If it does not appear that there is a malignancy, I might consider sending for a pudendal block Plan : DIAGNOSTIC TESTING: -An MRI is ordered to better delineate the soft tissue structures contributing to the patient's current symptoms, including the intervertebral disks, facet joints, spinal ligaments and neural elements. The study will aid with evaluating the need for, and planning, future interventional procedures. ACTIVITY RECOMMENDATIONS: -The patient is encouraged to avoid bed rest and maintain normal activity. FOLLOW-UP: -The patient is instructed to follow up after studies are complete. This document has been created with the use of voice recognition technology. It may contain inaccuracies: (e.g. misspellings, inaccurate syntax or word sense) that have escaped review. Time spent: 30 minutes today with this patient visit. This includes [id number]-[id number] time, review of chart records regarding conservative care history, spine-pertinent imaging, and communication/care coordination with referring provider, problem-specific history-taking and counseling/education regarding treatment options. cc: No referring provider defined for this encounter. Phone: N/A Fax: Results of consultation to be transmitted via electronic medical record for those providers who practice within [facility] or with access to [employer] via MD Connect, or via letter. ########################### ########################### ################## CHIEF COMPLAINT: Patient is here for the lower back pain, left side is more painful. Has this pain for years. Level of the pain is at 8/10. Medication helps sometimes. HPI: see "Discussion" above History of bowel or bladder dysfunction (not IBS or constipation): No History of previous spinal surgery: Yes, performed in 1989 at [facility]. The procedure was a L4-L5 Laminectomy. History of spinal fracture: No Work Status: retired NON-OPERATIVE CARE: Medication(s): He has tried the following for relief of his symptoms: oxycodone Physical Therapy: He has not had physical therapy for his current symptoms. Spinal Injections: He has gotten prior spinal injections. Lumbar epidural steroid injection. Last one did not help. Other: None Current Outpatient Medications Medication Sig Dispense Refill amLODIPine (NORVASC) 5 mg tablet Take 1 tablet by mouth once daily. amoxicillin (AMOXIL) 500 mg capsule 500 mg once daily. omeprazole (more content not included)... Normal [facility] MR/BMS.BVVasyl 11-21-2024 MR/BMS.S [facility] [address] [place] [address]. [address] [place] [address] OFFICE VISIT Date of Service: 11/21/24 MR#: [id number] Acct: [id number] Name: DORIAN CRAMER Rep #: [id number] : 1935 Provider: AARON Gonzales Age/Sex: 89/M Location: [facility] Status: Signed Intake Vital Signs 11/05/24 11:33 11/21/24 11:40 Height 5 ft 5 in Weight: 145 lb BP 128/67 H Blood Pressure Location Lt brachial Position Sitting Respiration 16 Pulse 90 Pulse Source Monitor Temp 98 F Temp Source Temporal Pulse Oximetry (%) 96 Oxygen Delivery Method room air Intake Visit Reasons: Post hospitalization Is patient in pain?: No Allergies ibuprofen (From Motrin) Allergy (Verified 11/21/24 11:41) Swelling Medications ???Medication ???Instructions ???Recorded ???Confirmed ???Type albuterol sulfate 90 mcg/actuation 1 puff inhalation Q4H PRN 11/21/24 History aerosol inhaler sob/wheezing amlodipine 5 mg tablet 5 mg PO DAILY 07/02/22 11/21/24 Hi story artifi.tears(hypromellose)( PF) 1.7 1 drp EACH EYE DAILY PRN dry eye s 09/19/23 11/21/24 History % eye drops with applicator oxybutynin chloride 10 mg 10 mg PO DAILY 09/19/23 11/21/24 H istory tablet,extended release 24 hr nystatin 100,000 unit/gram topical 1 applic topical QDAY PRN yeast 07/13/24 11/21/24 History powder oxycodone-acetaminophen 5 mg-325 1 tab PO TID PRN PRN pain 11/02/24 11/21/24 History mg tablet Have you fallen in the past year?: Yes PFSH Medical History Alcohol use Prostate disease [...] Hx of decompressive lumbar laminectomy Family History Mother , 61 Cancer Father , 91 AD (Alzheimer's disease) Social History (Updated 11/21/24 @ 11:40 by Mary Vaca) household members: spouse and none housing: house current occupational status: retired pets and animals: Yes pets and animals: dog(s) Smoking Status: Former smoker Tobacco: How many years used: 69 alcohol intake: current details: On avg a couple drinks each evening substance use type: does not use caffeine: Yes Type: coffee Number of servings: 2 do you feel safe at home: Yes HPI HPI HPI: DORIAN CRAMER, is a 89 M who presents to the office today for follow-up s/p IVC filter insertion 11/05/24 which was performed secondary to patient on Eliquis 5mg BID for extensive RLE DVT and having developed spontaneous rectus sheath hematoma. He reports that the RLE edema present when his DVT was diagnosed has completely resolved, he has been wearing compression stockings consistently. He denies any recent new RLE edema or pain. He denies any pain/drainage or other concerns at the R IJ access site. He reports his R abdominal wall hematoma seems to be improving; he still has some discomfort and tenderness but the bruising is resolving and the swelling is starting to go down. He remains off of Eliquis at this time. Recall that his RLE DVT was diagnosed in Jun 2024 and was unprovoked. Duplex in Jun showed acute DVT common femoral, femoral, popliteal, TP trunk, and gastroc veins and thrombosed thigh varicosities. Repeat duplex during recent hospitalization showed resolution of the common femoral/popliteal/gastroc DVT and persistent femoral and TP trunk DVT. ROS General General: No weight change, appetite, fatigue, colon cancer, breast cancer or weakness HEENT HEENT: No difficulty swallowing, eye injury, eye surgery, swollen glands or hoarseness Endo Endocrine: No thyroid disease, diabetes mellitus, thyroid cancer, Hair loss, heat intolerance or cold intolerance Skin Skin: Yes rash; No changing moles Musc Musculoskeletal: Yes arthritis; No back problems, rheumatoid arthritis, gout or joint pain Cardio Cardiovascular: Yes high blood pressure; No murmur, pacemaker, heart disease, atrial fibrillation, heart attack, heart stent, palpitations (more content not included)... Normal [facility] 11-14-2024 [facility] Telephone (SLEWST) DORIAN CRAMER ([id number]) 1935 M Date Time Provider Department 11/14/24 NEUROLOGY PROVIDER SLEWST During your visit today, we recorded the following information about you: Anastasiia Landers LPN 11/14/2024 10:35 AM Signed Phoned patient and advised him of provider's message stating he should be scheduled with Neuromuscular and not neurology. Patient given neuro scheduling desk number and he voiced understanding. EBONIE Pierce Jessica 11/14/2024 11:34 AM Signed Patient contacted the office stating he contacted the Neuromuscular department and they explained to the patient they do not see for the area of the body the patient is having pain in.Patient states having pain in groin area. Please advise. Allegra Sanchez, RN 11/14/2024 4:58 PM Signed TC to [facility] to advise that 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 No answer, left detailed VM on secure line with office number for any questions. EVGENY Byrnes Lori, LPN 11/15/2024 2:08 PM Signed Spoke with nurse at [facility] and reviewed issue with referral received en neuro referred to Gen Neuro. Advised thinking that provider meant to have it referred to a more specialized neurology. She stated she thinks that is likely the case but will have Nisreen look at it Tuesday and get it corrected. Will advise patient that will follow up with [facility] Tuesday to ensure they corrected this. EBONIE Pierce Lori, LPN 11/15/2024 2:11 PM Signed Message left for patient advising of message below and that I will update him once I know more. EBONIE Pierce Lori, LPN 11/19/2024 3:18 PM Signed Noted [facility] forwarded fax requesting [facility] schedule patient with appropriate neurology dept/group. Patient contacted to be scheduled with Spine in [place]. Anastasiia Landers LPN Allergies As of Date: 11/14/2024 (Not on File) Date Reviewed: Never Reviewed Reason for Visit: Appointment [186] Cmt: Patient scheduled incorrectly as advised per provider- he advised should be with Neuromuscular. Problem List As Of Date: 11/14/2024 (None) Encounter Status:Closed by ANASTASIIA LANDERS on 11/14/24 Normal [facility] Absolute lymphocyte countOrd ered By: Alyce Gibson on 11-12-2024 Lymphocytes Auto (Unsp spec) [#/Vol] 0.68 10*3/uL Low 0.83-4.51 [facility] Absolute neutrophil countOrd ered By: Alyce Gibson on 11-12-2024 Neutrophils (Bld) [#/Vol] 4.8 10*3/uL 2.0-7.7 [facility] Automated lymphocyte count a s percentage of total leukocytesOrdered By: Alyce Gibson on 11-12-2024 Lymphocytes/100 WBC Auto (Unsp spec) 11.3 % Low 19-41 [facility] Basophil percentageOrdered B y: Alyce Gibson on 11-12-2024 Basophils/100 WBC (Bld) 0.5 % 0-1 [facility] CBC W/Diff, Automatedon - 0-2024 Absolute Lymph 0.68 X10 3/uL Low 0.83-4.51 [facility] Comment on above: Performed By: #### L 100.0100 ####[facility] [address] [place], [address] Absolute Neut 4.8 X10 3/uL Normal 2.0-7.7 [facility] Comment on above: Performed By: #### L 100.0100 ####[facility] [address] [place], [address] Basophils/100 WBC (Bld) 0.5 % Normal 0-1 [facility] Comment on above: Performed By: #### L 100.0100 ####[facility] [address] [place], [address] Eosinophils/100 WBC (Bld) 0.8 % Normal 0-5 [facility] Comment on above: Performed By: #### L 100.0100 ####[facility] [address] [place], [address] Erythrocyte distribution width (RBC) [Ratio] 15.9 % High 11.6-14.6 [facility] Comment on above: Performed By: #### L 100.0100 ####[facility] [address] [place], [address] Hematocrit (Bld) [Volume fraction] 33.6 % Low 40-54 [facility] Comment on above: Performed By: #### L 100.0100 ####[facility] [address] [place], [address] Hemoglobin (Bld) [Mass/Vol] 10.8 g/dL Low 13.0-16.5 [facility] Comment on above: Performed By: #### L 100.0100 ####[facility] [address] [place], [address] IG% 0.700 Normal 0.0-0.9 [facility] Comment on above: Result Comment: IG% - Immature Granulocytes (promyelocytes, myelocytes and metamyelocytes) > 1% indicates that a LEFT SHIFT is Present. Performed By: #### L 100.0100 ####[facility] [address] [place], [address] Lymphocytes/100 WBC (Bld) 11.3 % Low 19-41 [facility] Comment on above: Performed By: #### L 100.0100 ####[facility] [address] [place], [address] MCH (RBC) [Entitic mass] 34.1 pg High 27.0-32.0 [facility] Comment on above: Performed By: #### L 100.0100 ####[facility] [address] [place], [address] MCHC (RBC) [Mass/Vol] 32.1 g/dL Normal 32-36 [facility] Comment on above: Performed By: #### L 100.0100 ####[facility] [address] [place], [address] MCV (RBC) [Entitic vol] 106.0 fL High 80-94 [facility] Comment on above: Performed By: #### L 100.0100 ####[facility] [address] [place], [address] Monocytes/100 WBC (Bld) 6.7 % Normal 0-10 [facility] Comment on above: Performed By: #### L 100.0100 ####[facility] [address] [place], [address] Neutrophils/100 WBC (Bld) 80.0 % High 47-70 [facility] Comment on above: Performed By: #### L 100.0100 ####[facility] [address] [place], [address] Nucleated RBC (Bld) [#/Vol] 0 10*3/uL Normal 0-5 [facility] Comment on above: Performed By: #### L 100.0100 ####[facility] [address] [place], [address] Platelet mean volume (Bld) [Entitic vol] 10.4 fL Normal 6.2-12.0 [facility] Comment on above: Performed By: #### L 100.0100 ####[facility] [address] [place], [address] Platelets (Bld) [#/Vol] 267 10*3/uL Normal 150-450 [facility] Comment on above: Performed By: #### L 100.0100 ####[facility] [address] [place], [address] RBC (Bld) [#/Vol] 3.17 10*6/uL Low 4.6-6.2 [facility] Comment on above: Performed By: #### L 100.0100 ####[facility] [address] [place], [address] RDW SD 61.3 fl High 35.1-43.9 [facility] Comment on above: Performed By: #### L 100.0100 ####[facility] [address] [place], [address] WBC (Bld) [#/Vol] 6.0 10*3/uL Normal 4.4-11.0 [facility] Comment on above: Performed By: #### L 100.0100 ####[facility] [address] [place], [address] Eosinophil percentageOrdered By: Alyce Gibson on 11-12-2024 Eosinophils/100 WBC (Bld) 0.8 % 0-5 [facility] Erythrocyte distribution wid th ratioOrdered By: Alyce Gibson on 11-12-2024 Erythrocyte distribution width (RBC) [Ratio] 15.9 % High 11.6-14.6 [facility] Erythrocyte distribution wid th standard deviationOrdered By: Alycequincy Gibson on 11-12-2024 Erythrocyte distribution width (RBC) [Ratio] 61.3 fl High 35.1-43.9 [facility] Hematocrit Auto (Bld) [Volum e fraction]Ordered By: Alyce Gibson on 11-12-2024 Hematocrit (Bld) [Volume fraction] 33.6 % Low 40-54 [facility] Hemoglobin measurementOrdere d By: Alyce Gibson on 11-12-2024 Hemoglobin (Bld) [Mass/Vol] 10.8 g/dL Low 13.0-16.5 [facility] Immature granulocytes/100 WB C Auto (Bld)Ordered By: Alyce Gibson on 11-12-2024 Immature granulocytes/100 WBC (Bld) 0.700 % 0.0-0.9 [facility] Comment on above: IG% - Immature Granu locytes (promyelocytes, myelocytes and metamyelocytes) > 1% indicates that a LEFT SHIFT is Present. MCV (mean corpuscular volume ) determinationOrdered By: Alyce Gibson on 11-12-2024 MCV (RBC) [Entitic vol] 106.0 fL High 80-94 [facility] Mean corpuscular hemoglobin (MCH) determinationOrdered By: Alyce Gibson on 11-12-2024 MCH (RBC) [Entitic mass] 34.1 pg High 27.0-32.0 [facility] Mean corpuscular hemoglobin concentration (MCHC) determinationOrdered By: Alyce Gibson on 11-12-2024 MCHC (RBC) [Mass/Vol] 32.1 g/dL 32-36 [facility] Mean platelet volume determi nationOrdered By: Alyce Gibson on 11-12-2024 Platelet mean volume (Bld) [Entitic vol] 10.4 fL 6.2-12.0 [facility] Monocyte percentageOrdered B y: Alyce Gibson on 11-12-2024 Monocytes/100 WBC (Bld) 6.7 % 0-10 [facility] Neutrophil percentageOrdered By: Alyce Gibson on 11-12-2024 Neutrophils/100 WBC (Bld) 80.0 % High 47-70 [facility] Nucleated red blood cell per centageOrdered By: Alyce Gibson on 11-12-2024 Nucleated RBC/100 WBC (Bld) [Ratio] 0 % 0-5 [facility] Platelet countOrdered By: Ra ginger Gibson on 11-12-2024 Platelets (Bld) [#/Vol] 267 10*3/uL 150-450 [facility] RBC Auto (Bld) [#/Vol]Ordere d By: Alyce Gibson on 11-12-2024 RBC (Bld) [#/Vol] 3.17 10*6/uL Low 4.6-6.2 [facility] White blood cell (WBC) count Ordered By: Alyce Gibson on 11-12-2024 WBC (Bld) [#/Vol] 6.0 10*3/uL 4.4-11.0 [facility] Discharge Instructionon 10-15 Discharge Instruction [facility] Medical Records Department [address] [place] [address] Instructions for Home/Discharge Instructions 11/06/24 1039 MR#: [id number] Acct: [id number] Name: DORIAN CRAMER Rep #: [id number] : 1935 89 From: Daniel Neal DO PCP: Dr. Shoshana Ulrich MD Status:ADM IN Discharge Instructions Diet Discharge Diet: No restrictions DC O2, CPAP, BIPAP needs Home O2 Discharge instructions: No Dressing / Incision Discharge Activity: Return to Normal Activity Weight Bearing Status: Full weight bearing Follow Up Care Test Results: Test results from this visit will be discussed in further detail at your follow-up appointment, if applicable. Discharge Plan Admission Admit Date/Time: 11/03/24 15:03 Primary Reason for Your Visit: Rectus sheath hematoma, anemia, acute VTE Attending Provider: Daniel Neal Primary Care Provider: Shoshana Ulrich Consulting Providers: Raghav Serrano; Rylie Arreaga; Santana Mason Instructions Additional Instructions / Restrictions: Remain off Eliquis, you will follow-up with Dr. Mason and he will give you instructions when to resume it Discharge Orders/Prescriptions Prescriptions: Continued amlodipine 5 mg tablet 5 mg PO DAILY nystatin 100,000 unit/gram powder 1 applic topical QDAY PRN (Reason: yeast) albuterol sulfate 90 mcg/actuation HFA aerosol inhaler 1 puff INHALATION Q4H PRN (Reason: sob/wheezing) oxybutynin chloride 10 mg tablet extended release 24hr 10 mg PO DAILY artifi.tears(hypromellose)( PF) 1.7 % drops with applicator 1 drp EACH EYE DAILY PRN (Reason: dry eyes) oxycodone-acetaminophen 5-325 mg tablet 1 tab PO TID PRN PRN (Reason: pain) Discontinued Eliquis 5 mg tablet 5 mg PO BID Qty: 180 1RF Referrals / Follow Up: Santana Mason MD [Med Staff - Active Staff] - See Referral Note (In 3 weeks) Shoshana Ulrich MD [Primary Care Provider] - Within 2 Weeks Disposition Disposition (needs filled in before D/C Order can be placed): Home, Self Care 11/06/24 1042 Daniel Neal DO CC: Dr. Raghav Serrano DO; Dr. Santana Mason MD; Dr. Shoshana Ulrich MD; Dr. Rylie Arreaga MD Signed Normal [facility] Absolute lymphocyte countOrd ered By: Daniel Pierrejasmine on 11-05-2024 Lymphocytes Auto (Unsp spec) [#/Vol] 0.80 10*3/uL Low 0.83-4.51 [facility] Absolute neutrophil countOrd ered By: Daniel Ángel on 11-05-2024 Neutrophils (Bld) [#/Vol] 3.4 10*3/uL 2.0-7.7 [facility] Activated partial thrombopla stin time (aPTT) in platelet poor plasma by coagulation aOrdered By: Daniel Ángel on 11-05-2024 aPTT Coag (PPP) [Time] 68.6 s High 24.1-36.2 [facility] Automated lymphocyte count a s percentage of total leukocytesOrdered By: Daniel Ángel on 11-05-2024 Lymphocytes/100 WBC Auto (Unsp spec) 17.0 % Low 19-41 [facility] Basophil percentageOrdered B y: Daniel Neal on 11-05-2024 Basophils/100 WBC (Bld) 0.4 % 0-1 [facility] CBC W/Diff, Automatedon -06 18-2024 Absolute Lymph 0.80 X10 3/uL Low 0.83-4.51 [facility] Comment on above: Performed By: #### L 100.0100 #### [facility] [address] [place], [address] Absolute Neut 3.4 X10 3/uL Normal 2.0-7.7 [facility] Comment on above: Performed By: #### L 100.0100 #### [facility] [address] [place], [address] Basophils/100 WBC (Bld) 0.4 % Normal 0-1 [facility] Comment on above: Performed By: #### L 100.0100 #### [facility] [address] [place], [address] Eosinophils/100 WBC (Bld) 2.5 % Normal 0-5 [facility] Comment on above: Performed By: #### L 100.0100 #### [facility] [address] [place], [address] Erythrocyte distribution width (RBC) [Ratio] 16.0 % High 11.6-14.6 [facility] Comment on above: Performed By: #### L 100.0100 #### [facility] [address] [place], [address] Hematocrit (Bld) [Volume fraction] 28.2 % Low 40-54 [facility] Comment on above: Performed By: #### L 100.0100 #### [facility] [address] [place], [address] Hemoglobin (Bld) [Mass/Vol] 9.5 g/dL Low 13.0-16.5 [facility] Comment on above: Performed By: #### L 100.0100 #### [facility] [address] [place], [address] IG% 1.100 High 0.0-0.9 [facility] Comment on above: Result Comment: IG% - Immature Granulocytes (promyelocytes, myelocytes and metamyelocytes) > 1% indicates that a LEFT SHIFT is Present. Performed By: #### L 100.0100 #### [facility] [address] [place], [address] Lymphocytes/100 WBC (Bld) 17.0 % Low 19-41 [facility] Comment on above: Performed By: #### L 100.0100 #### [facility] [address] [place], [address] MCH (RBC) [Entitic mass] 34.4 pg High 27.0-32.0 [facility] Comment on above: Performed By: #### L 100.0100 #### [facility] [address] [place], [address] MCHC (RBC) [Mass/Vol] 33.7 g/dL Normal 32-36 [facility] Comment on above: Performed By: #### L 100.0100 #### [facility] [address] [place], [address] MCV (RBC) [Entitic vol] 102.2 fL High 80-94 [facility] Comment on above: Performed By: #### L 100.0100 #### [facility] [address] [place], [address] Monocytes/100 WBC (Bld) 7.4 % Normal 0-10 [facility] Comment on above: Performed By: #### L 100.0100 #### [facility] [address] [place], [address] Neutrophils/100 WBC (Bld) 71.6 % High 47-70 [facility] Comment on above: Performed By: #### L 100.0100 #### [facility] [address] [place], [address] Nucleated RBC (Bld) [#/Vol] 0 10*3/uL Normal 0-5 [facility] Comment on above: Performed By: #### L 100.0100 #### [facility] [address] [place], [address] Platelet mean volume (Bld) [Entitic vol] 10.2 fL Normal 6.2-12.0 [facility] Comment on above: Performed By: #### L 100.0100 #### [facility] [address] [place], [address] Platelets (Bld) [#/Vol] 172 10*3/uL Normal 150-450 [facility] Comment on above: Performed By: #### L 100.0100 #### [facility] [address] [place], [address] RBC (Bld) [#/Vol] 2.76 10*6/uL Low 4.6-6.2 [facility] Comment on above: Performed By: #### L 100.0100 #### [facility] [address] [place], [address] RDW SD 60.4 fl High 35.1-43.9 [facility] Comment on above: Performed By: #### L 100.0100 #### [facility] [address] [place], [address] WBC (Bld) [#/Vol] 4.7 10*3/uL Normal 4.4-11.0 [facility] Comment on above: Performed By: #### L 100.0100 #### [facility] [address] [place], [address] Calculated very low density lipoprotein (VLDL) cholesterol measurementOrdered By: Daniel Neal on 11-05-2024 Calculated very low density lipoprotein (VLDL) cholesterol measurement 18 mg/dL 5-40 [facility] Consultation - Surgicalon Consultation - Surgical [facility] Medical Records Department [address] [place] [address] Consultation - Surgical 11/05/24 1005 MR#: [id number] Acct: [id number] Name: DORIAN CRAMER Rep #: [id number] : 1935 89 From: Santana Mason MD PCP: Dr. Shoshana Ulrich MD Status:ADM IN Location: MS3 MT599-3 Assessment Plan Assessment/Plan (1) DVT (deep venous thrombosis): QUALIFIERS: DVT location: lower extremity Affected thrombotic vein of extremity: p opliteal Chronicity: acute Laterality: right Qualified Code(s): I82.431 - Acute embolism and thrombosis of right popliteal vein PLAN: -IVC filter HPI Consult Data Date of Consult: 11/05/24 HPI Narrative HPI Narrative: DORIAN CRAMER, is a 89 M who presents with right sided abdominal pain and found to have rectus sheath hematoma. He is on Eliquis for unprovoked extensive RLE DVT in early June. Eliquis has been held since admission 6/20. Duplex revealed mostly chronic DVT with some acute thrombus in more distal vessels. Given interval since acute DVT which was unprovoked, the unprovoked rectus sheath bleed, and presence of acute component of thrombus he is felt to be appropriate for IVC filter placement. 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 Wears glasses Wears hearing aid in both ears Cancer Alcohol abuse Hx of gout Heartburn CPAP (continuous positive airway pressure) dependence Shortness of breath on exertion Smoker Emphysema, unspecified Hypertension Restless legs Injury of back Home Medications ???Medication ???Instructions ???Recorded ???Last Taken ???Type albuterol sulfate 90 mcg/actuation 1 puff inhalation Q4H PRN Unknown History aerosol inhaler sob/wheezing amlodipine 5 mg tablet 5 mg PO DAILY 07/02/22 09/18/23 Hi story artifi.tears(hypromellose)( PF) 1.7 1 drp EACH EYE DAILY PRN dry eye s 09/19/23 Unknown History % eye drops with applicator oxybutynin chloride 10 mg 10 mg PO DAILY 09/19/23 Unknown Hi story tablet,extended release 24 hr nystatin 100,000 unit/gram topical 1 applic topical QDAY PRN yeast 07/13/24 Unknown History powder apixaban 5 mg tablet (Eliquis) 5 mg PO BID #180 tabs 07/25/24 Unk nown Rx oxycodone-acetaminophen 5 mg-325 1 tab PO TID PRN PRN pain 11/02/24 Unknown History mg tablet Allergy/AdvReac Type Severity Reaction Status Date / Time ibuprofen (From Motrin) Allergy Swelling Verified 11/02/24 15:49 Family History Mother , 61 Cancer Father , 91 AD (Alzheimer's disease) Surgical History History of hand surgery S/P insertion of spinal cord stimulator History of varicose vein stripping Hx of myringotomy History of parotidectomy History of esophagogastroduodenoscopy (EGD) History of cystoscopy Hx of basal cell carcinoma excision Hx of finger joint replacement Hx of decompressive lumbar laminectomy Social History household members: spouse and none housing: house current occupational status: retired pets and animals: Yes pets and animals: dog(s) Smoking Status: Current every day smoker tobacco type: cigarettes alcohol intake: current details: On avg a couple drinks each evening substance use type: does not use caffeine: Yes Type: coffee Number of servings: 2 do you feel safe at home: Yes ROS Constitutional Constitutional: Denies chills, fever(s), frequent falls, lethargy or weakness Eyes Eyes: Denies blind spots, change in vision or loss of vision ENT HEENT: Denies bleeding gums, hoarseness or sore throat Cardiovascular Cardiovascular: Denies abdominal pain, bluish discoloration of hand/feet, chest pain with activity, claudication, cold extremities, cyanosis, dyspnea on exertion, erythema on extremities, irregular heart rhythm, leg edema, leg ulcers, numbness in extremities or weakness in extremities Respiratory/Chest Respiratory/Chest: Denies cough, excessive phlegm production, shortness of breath at rest, shortness of breath with exertion or wheezing Gastrointestinal Gastrointestinal: Reports abdominal pain; Denies anorexia, change in stool character, constipation, diarrhea, melena or rectal bleeding Genitourinary Genitourinary: Denies dysuria or hematuria Musculoskeletal Musculoskeletal: Denies abnormal gait Integumentary Integumentary: Reports other Details: ; Denies erythema, non-healing lesions or wounds Neurologic Neurologic: Denies abnormal speech, focal (more content not included)... Normal [facility] Eosinophil percentageOrdered By: Daniel Neal on 11-05-2024 Eosinophils/100 WBC (Bld) 2.5 % 0-5 [facility] Erythrocyte distribution wid th ratioOrdered By: Daniel Neal on 11-05-2024 Erythrocyte distribution width (RBC) [Ratio] 16.0 % High 11.6-14.6 [facility] Erythrocyte distribution wid th standard deviationOrdered By: Daniel Neal on 11-05-2024 Erythrocyte distribution width (RBC) [Ratio] 60.4 fl High 35.1-43.9 [facility] Hematocrit Auto (Bld) [Volum e fraction]Ordered By: Daniel Neal on 11-05-2024 Hematocrit (Bld) [Volume fraction] 28.2 % Low 40-54 [facility] Hemoglobin measurementOrdere d By: Daniel Neal on 11-05-2024 Hemoglobin (Bld) [Mass/Vol] 9.5 g/dL Low 13.0-16.5 [facility] Immature granulocytes/100 WB C Auto (Bld)Ordered By: Daniel Neal on 11-05-2024 Immature granulocytes/100 WBC (Bld) 1.100 % High 0.0-0.9 [facility] Comment on above: IG% - Immature Granu locytes (promyelocytes, myelocytes and metamyelocytes) > 1% indicates that a LEFT SHIFT is Present. LDL calc ser/plasOrdered By: Daniel Neal on 11-05-2024 Cholesterol in LDL [Mass/Vol] 104 mg/dL [facility] Comment on above: Akbuylybga=796-619 m g/dL & Higher Psrk=149 mg/dL or greater Lipid Profileon 11-05-2024 CHOL:HDL 2.87 Normal [facility] Comment on above: Performed By: #### L [id number] #### [facility] [address] [place], [address] Cholesterol [Mass/Vol] 187 mg/dL Normal <=200 [facility] Comment on above: Result Comment: Chol esterol level, Desirable <200 mg/dL Borderline high cholesterol 200-239 mg/dL High cholesterol >=240 mg/dL Recommendations of the NCEP Adult Treatment Panel for the following risk-cutoff thresholds for the [place] population. Performed By: #### L 300.4310 #### [facility] [address] [place], [address] (693) Cholesterol in HDL [Mass/Vol] 65 mg/dL Normal [facility] Comment on above: Result Comment: Juany onal Cholesterol Education Program (NCEP) guidelines: <40 mg/dL: Low HDL-cholesterol (major risk factor for CHD) >= 60 mg/dL: High HDL-cholesterol (negative risk factor for CHD) HDL-cholesterol is affected by a number of factors, e.g. smoking, exercise, hormones, sex and age. Performed By: #### L 300.4310 #### [facility] [address] [place], [address] Cholesterol in LDL [Mass/Vol] 104 mg/dL Normal [facility] Comment on above: Result Comment: Bord kgxfrp=885-847 mg/dL Higher Qket=456 mg/dL or greater Performed By: #### L 300.4310 #### [facility] [address] [place], [address] Cholesterol in VLDL [Mass/Vol] 18 mg/dL Normal 5-40 [facility] Comment on above: Performed By: #### L 300.4310 #### [facility] [address] [place], [address] Triglyceride [Mass/Vol] 89 mg/dL Normal [facility] Comment on above: Result Comment: The drugs N-Acetylcysteine and Metamizole may falsely depress this assay. Normal range: <150 mg/dL Borderline High: 150-199 mg/dL High: 200-499 mg/dL Very High: >500 mg/dL Performed By: #### L 300.4310 #### [facility] [address] [place], [address] MCV (mean corpuscular volume ) determinationOrdered By: Daniel Neal on 11-05-2024 MCV (RBC) [Entitic vol] 102.2 fL High 80-94 [facility] Mean corpuscular hemoglobin (MCH) determinationOrdered By: Daniel Neal on 11-05-2024 MCH (RBC) [Entitic mass] 34.4 pg High 27.0-32.0 [facility] Mean corpuscular hemoglobin concentration (MCHC) determinationOrdered By: Daniel Neal on 11-05-2024 MCHC (RBC) [Mass/Vol] 33.7 g/dL 32-36 [facility] Mean platelet volume determi nationOrdered By: Daniel Neal on 11-05-2024 Platelet mean volume (Bld) [Entitic vol] 10.2 fL 6.2-12.0 [facility] Monocyte percentageOrdered B y: Daniel Nael on 11-05-2024 Monocytes/100 WBC (Bld) 7.4 % 0-10 [facility] Neutrophil percentageOrdered By: Daniel Neal on 11-05-2024 Neutrophils/100 WBC (Bld) 71.6 % High 47-70 [facility] Nucleated red blood cell per centageOrdered By: Daniel Neal on 11-05-2024 Nucleated RBC/100 WBC (Bld) [Ratio] 0 % 0-5 [facility] Operative Reporton Operative Report [facility] Medical Records Department [address] [place] [address] Operative Report 11/05/24 1553 MR#: [id number] Acct: [id number] Name: DORIAN CRAMER Rep #: [id number] : 1935 89 From: Santana Mason MD PCP: Dr. Shoshana Ulrich MD Status:ADM IN Location: [place] [address]-1 Operative Report (Standard) Operative Information Date of Procedure: 11/05/24 Pre-Operative Diagnosis: DVT, rectus sheath hematoma Post-Operative Diagnosis: same Surgery/Procedure Performed: insertion inferior vena cava filter prepared foods production team member: No Type of Anesthesia: Local and Sedation,Conscious Procedure Start Time: 15:00 Procedure Stop Time: 15:30 Select all DRAINS/GRAFTS/IMPLANTS that apply: Implanted device Implanted device details: Cook Celect filter Estimated Blood Loss: 2 Specimen collected: No Description of surgery: HPI: Patient is an 89-year-old male with a prior unprovoked extensive right lower extremity DVT who was on Eliquis when he developed a spontaneous right rectus sheath hematoma. Repeat ultrasound revealed what appeared to be more acute appearing thrombus in the distal right lower extremity veins and given the amount of time surpassed since the original event is felt that a filter is appropriate. He is taken now for IVC filter placement. Description of procedure: Upon obtaining informed consent and verification correct patient procedure and site the patient was taken to the Treater was positioned prepped and draped in usual sterile fashion. Time was performed consultation administered Versed and fentanyl. Skin overlying the right internal jugular vein was anesthetized 1% lidocaine the vessel accessed under ultrasound guidance with a micropuncture needle wire. This then exchanged for micropuncture sheath through which injection venogram was performed revealing satisfactory positioning no extravasation or dissection. Through the micropuncture sheath a J-wire was advanced however given angulation this was not able to traverse into the inferior vena cava so the J-wire was exchanged for a Glidewire which advanced with some redirecting into the inferior vena cava. The micropuncture sheath was then exchanged for a straight flush catheter advanced over the wire and positioned in the inferior vena cava. In this location digital traction venacavogram was performed which revealed patent vena cava with normal caliber though there was significant displacement from the aorta secondary to spine scoliosis. Through the straight flush catheter the J-wire was advanced and the straight flush catheter exchanged for the dilator for the filter delivery system. The dilator was then withdrawn and the filter delivery sheath advanced into position at the L2 vertebral body. Through the sheath subtraction venacavogram was performed and the confluence of the renal veins were marked. The Cook Celect filter was then advanced in position below the lowest renal vein and deployed. Completion venacavogram confirmed satisfactory position with no significant tilt. The sheath was then withdrawn a minute pressure held until hemostasis was obtained. The patient was then taken the recovery area prior to return to the medical floor. Surgical Findings: patent, normal caliber IVC; displaced by aorta/spine scoliosis filter below lowest renal vein Complications Complications: No 11/05/24 1600 Cosigner Signature (if applicable): CC: Dr. Raghav Serrano DO; Dr. Rand Rollins DO; Dr. Santana Mason MD; Dr. Shoshana Ulrich MD; Dr. Rylie Arreaga MD Signed Normal [facility] Partial Thromboplast Timeon 11-05-2024 aPTT Coag (Bld) [Time] 68.6 s High 24.1-36.2 [facility] Comment on above: Performed By: #### L [id number] #### [facility] [address] [place], [address] aPTT Coag (Bld) [Time] 79.5 s High 24.1-36.2 [facility] Comment on above: Performed By: #### L 300.4310 #### [facility] [place], [address] Platelet countOrdered By: Ethan Neal on 11-05-2024 Platelets (Bld) [#/Vol] 172 10*3/uL 150-450 [facility] RBC Auto (Bld) [#/Vol]Ordere d By: Daniel Neal on 11-05-2024 RBC (Bld) [#/Vol] 2.76 10*6/uL Low 4.6-6.2 [facility] Screening total cholesterol/ high density lipoprotein (HDL) cholesterol ratioOrdered By: Daniel Neal on 11-05-2024 Cholesterol.total/Chol esterol in HDL [Mass ratio] 2.87 {ratio} [facility] Serum or plasma cholesterol in HDL measurement (mass/volume)Ordered By: Daniel Neal on 11-05-2024 Cholesterol in HDL [Mass/Vol] 65 mg/dL >40 [facility] Comment on above: National Cholesterol Education Program (NCEP) guidelines:<40 mg/dL: Low HDL-cholesterol (major risk factor for CHD)>= 60 mg/dL: High HDL-cholesterol (negative risk factor for CHD)HDL-cholesterol is affected by a number of factors, e.g. smoking, exercise, hormones, sex and age. Serum or plasma cholesterol measurement (mass/volume)Ordered By: Daniel Neal on 11-05-2024 Cholesterol [Mass/Vol] 187 mg/dL <201 [facility] Comment on above: Cholesterol level, D esirable <200 mg/dLBorderline high cholesterol 200-239 mg/dLHigh cholesterol >=240 mg/dLRecommendations of the NCEP Adult Treatment Panel for the following risk-cutoff thresholds for the [place] population. Triglycerides measurementOrd ered By: Daniel Neal on 11-05-2024 Triglyceride [Mass/Vol] 89 mg/dL <199 [facility] Comment on above: The drugs N-Acetylcy steine and Metamizole may falsely depress this assay. Normal range: <150 mg/dLBorderline High: 150-199 mg/dLHigh: 200-499 mg/dLVery High: >500 mg/dL Venous duplex ultrasound rep ortOrdered By: Santana Mason on 11-05-2024 [facility] [address] [place] [address] Venous Duplex US - Omar Extrem 11/04/24 1244 MR#: [id number] Acct: [id number] Name: DORIAN CRAMER Rep #:[id number] : 1935 89 From: Santana Clark Attending Dr: Dr. Daniel Neal, Status: ADM IN Ordering Dr: Daniel Neal DO Date: 11/04/24 Location: MS3 Sex: M C Admitted: 11/03/24 Reason For Study Reason For Study: Swelling RIGHT LEFT GSV is normal. GSV is normal. CFV is compressible, spontaneous, phasic, competent CFV is compressible, spontaneous, phasic, competent, and demonstrates normal augmentation. and demonstrates normal augmentation. Rt FV prox is partially compressible FV is compressible, spontaneous, phasic, competent Rt FV mid/distal is non compressible and demonstrates normal augmentation. Rt T/P Trunk is non compressible. POP V is compressible, spontaneous, phasic, competent POP V is compressible, spontaneous, phasic, competent and demonstrates normal augmentation. and demonstrates normal augmentation. T/P Trunk is compressible. PTV is compressible. PTV is compressible. RT PerV is compressible. LT PerV is compressible. Procedure This is a venous duplex using B-mode, color flow and spectral Doppler. Exam performed portable in patient room. A preliminary report was called and/or faxed to Dr. Neal. VL/Venous Duplex US - Omar Extrem Interpretation Summary Acute deep vein thrombosis noted in the right femoral vein, tibioperoneal trunk vein. Chronic deep vein thrombosis noted in right femoral vein. Ordering Physician: Daniel Neal Referring Physician: Shoshana Ulrich Performed By: Alyce Loredo, RDCS, RVT 11/05/24 1700 Date _ Santana Mason MD CC: Dr. Rand Rollins DO; Dr. Shoshana Ulrich MD; Dr. Daniel Neal DO ~ Date Dictated: 11/04/24 1244 Date Transcribed: 11/05/241699 Nuclear Equipment Research Engineer: Signed [facility] Work Phone: White blood cell (WBC) count Ordered By: Daniel Neal on 11-05-2024 WBC (Bld) [#/Vol] 4.7 10*3/uL 4.4-11.0 [facility] Anion gap in Serum or Plasma Ordered By: Rylie Arreaga on 11-04-2024 Anion gap [Moles/Vol] 8 mmol/L 5-15 [facility] BUN/creatinine ratioOrdered By: Rylie Arreaga on 11-04-2024 Urea nitrogen/Creatinine [Mass ratio] 19.5 mg/mg 10- [facility] Basic Metabolic Profile (BMP )on 11-04-2024 BUN/CRE 19.5 RATIO Normal - [facility] Comment on above: Performed By: #### L 100.0500, L500.2500 #### [facility] [address] [place], [address] Calcium [Mass/Vol] 8.3 mg/dL Normal 7.6-11.0 [facility] Comment on above: Performed By: #### L 100.0500, L500.2500 #### [facility] [address] [place], [address] Chloride [Moles/Vol] 98 mmol/L Normal 98-108 [facility] Comment on above: Performed By: #### L 100.0500, L500.2500 #### [facility] [address] [place], [address] CO2 [Moles/Vol] 27.2 mmol/L Normal 21.0-32.0 [facility] Comment on above: Performed By: #### L 100.0500, L500.2500 #### [facility] [address] [place], [address] Creatinine [Mass/Vol] 1.08 mg/dL Normal 0.70-1.20 [facility] Comment on above: Performed By: #### L 100.0500, L500.2500 #### [facility] [address] [place], [address] ECRCL 41.92 ml/min Low 50-250 [facility] Comment on above: Performed By: #### L 100.0500, L500.2500 #### [facility] [address] [place], [address] GAP 8 Normal 5-15 [facility] Comment on above: Performed By: #### L 100.0500, L500.2500 #### [facility] [address] [place], [address] GFR/1.73 sq M.predicted among non-blacks MDRD (S/P/Bld) [Vol rate/Area] 66 mL/min/{1.73_m2} Normal >60 [facility] Comment on above: Result Comment: mL/m in/1.73m2 CKD-EPI Creatinine Equation (2020) Performed By: #### L 100.0500, L500.2500 #### [facility] [address] [place], [address] Glucose [Mass/Vol] 96 mg/dL Normal 70-99 [facility] Comment on above: Performed By: #### L 100.0500, L500.2500 #### [facility] [address] [place], [address] Potassium [Moles/Vol] 4.4 mmol/L Normal 3.3-5.1 [facility] Comment on above: Performed By: #### L 100.0500, L500.2500 #### [facility] [address] [place], [address] Sodium [Moles/Vol] 133 mmol/L Normal 133-145 [facility] Comment on above: Performed By: #### L 100.0500, L500.2500 #### [facility] [address] [place], [address] Urea nitrogen [Mass/Vol] 21 mg/dL High 4-19 [facility] Comment on above: Performed By: #### L 100.0500, L500.2500 #### [facility] [address] [place], [address] CBC W/Diff, Automatedon 06-2 2-2024 Absolute Lymph 0.71 X10 3/uL Low 0.83-4.51 [facility] Comment on above: Performed By: #### L 300.4310 #### [facility] [address] [place], [address] Absolute Neut 3.8 X10 3/uL Normal 2.0-7.7 [facility] Comment on above: Performed By: #### L 300.4310 #### [facility] [address] [place], [address] Basophils/100 WBC (Bld) 0.4 % Normal 0-1 [facility] Comment on above: Performed By: #### L 300.4310 #### [facility] [address] [place], [address] Eosinophils/100 WBC (Bld) 2.3 % Normal 0-5 [facility] Comment on above: Performed By: #### L 300.4310 #### [facility] [address] [place], [address] Erythrocyte distribution width (RBC) [Ratio] 16.0 % High 11.6-14.6 [facility] Comment on above: Performed By: #### L 300.4310 #### [facility] [address] [place], [address] Hematocrit (Bld) [Volume fraction] 29.2 % Low 40-54 [facility] Comment on above: Performed By: #### L 300.4310 #### [facility] [address] [place], [address] Hemoglobin (Bld) [Mass/Vol] 9.6 g/dL Low 13.0-16.5 [facility] Comment on above: Performed By: #### L 300.4310 #### [facility] [address] [place], [address] IG% 1.200 High 0.0-0.9 [facility] Comment on above: Result Comment: IG% - Immature Granulocytes (promyelocytes, myelocytes and metamyelocytes) > 1% indicates that a LEFT SHIFT is Present. Performed By: #### L 300.4310 #### [facility] [address] [place], [address] Lymphocytes/100 WBC (Bld) 13.8 % Low 19-41 [facility] Comment on above: Performed By: #### L 300.4310 #### [facility] [address] [place], [address] MCH (RBC) [Entitic mass] 33.8 pg High 27.0-32.0 [facility] Comment on above: Performed By: #### L 300.4310 #### [facility] [address] [place], [address] MCHC (RBC) [Mass/Vol] 32.9 g/dL Normal 32-36 [facility] Comment on above: Performed By: #### L 300.4310 #### [facility] [address] [place], [address] MCV (RBC) [Entitic vol] 102.8 fL High 80-94 [facility] Comment on above: Performed By: #### L 300.4310 #### [facility] [address] [place], [address] Monocytes/100 WBC (Bld) 7.6 % Normal 0-10 [facility] Comment on above: Performed By: #### L 300.4310 #### [facility] [address] [place], [address] Neutrophils/100 WBC (Bld) 74.7 % High 47-70 [facility] Comment on above: Performed By: #### L 300.4310 #### [facility] [address] [place], [address] Nucleated RBC (Bld) [#/Vol] 0 10*3/uL Normal 0-5 [facility] Comment on above: Performed By: #### L 300.4310 #### [facility] [address] [place], [address] Platelet mean volume (Bld) [Entitic vol] 10.4 fL Normal 6.2-12.0 [facility] Comment on above: Performed By: #### L 300.4310 #### [facility] [address] [place], [address] Platelets (Bld) [#/Vol] 183 10*3/uL Normal 150-450 [facility] Comment on above: Performed By: #### L 300.4310 #### [facility] [address] [place], [address] RBC (Bld) [#/Vol] 2.84 10*6/uL Low 4.6-6.2 [facility] Comment on above: Performed By: #### L 300.4310 #### [facility] [address] [place], [address] RDW SD 61.1 fl High 35.1-43.9 [facility] Comment on above: Performed By: #### L 300.4310 #### [facility] [address] [place], [address] WBC (Bld) [#/Vol] 5.1 10*3/uL Normal 4.4-11.0 [facility] Comment on above: Performed By: #### L 300.4310 #### [facility] [address] [place], [address] CBC-Complete Blood Cnt No Di ffon 11-04-2024 Erythrocyte distribution width (RBC) [Ratio] 16.4 % High 11.6-14.6 [facility] Comment on above: Performed By: #### L 100.0500, L500.2500 #### [facility] [address] [place], [address] Hematocrit (Bld) [Volume fraction] 30.6 % Low 40-54 [facility] Comment on above: Performed By: #### L 100.0500, L500.2500 #### [facility] [address] [place], [address] Hemoglobin (Bld) [Mass/Vol] 10.2 g/dL Low 13.0-16.5 [facility] Comment on above: Performed By: #### L 100.0500, L500.2500 #### [facility] [address] [place], [address] MCH (RBC) [Entitic mass] 34.6 pg High 27.0-32.0 [facility] Comment on above: Performed By: #### L 100.0500, L500.2500 #### [facility] [address] [place], [address] MCHC (RBC) [Mass/Vol] 33.3 g/dL Normal 32-36 [facility] Comment on above: Performed By: #### L 100.0500, L500.2500 #### [facility] [address] [place], [address] MCV (RBC) [Entitic vol] 103.7 fL High 80-94 [facility] Comment on above: Performed By: #### L 100.0500, L500.2500 #### [facility] [address] [place], [address] Platelet mean volume (Bld) [Entitic vol] 10.5 fL Normal 6.2-12.0 [facility] Comment on above: Performed By: #### L 100.0500, L500.2500 #### [facility] [address] [place], [address] Platelets (Bld) [#/Vol] 182 10*3/uL Normal 150-450 [facility] Comment on above: Performed By: #### L 100.0500, L500.2500 #### [facility] [address] [place], [address] RBC (Bld) [#/Vol] 2.95 10*6/uL Low 4.6-6.2 [facility] Comment on above: Performed By: #### L 100.0500, L500.2500 #### [facility] [address] [place], [address] RDW SD 62.0 fl High 35.1-43.9 [facility] Comment on above: Performed By: #### L 100.0500, L500.2500 #### [facility] [address] [place], [address] WBC (Bld) [#/Vol] 5.3 10*3/uL Normal 4.4-11.0 [facility] Comment on above: Performed By: #### L 100.0500, L500.2500 #### [facility] [address] [place], [address] Carbon dioxide, total [Moles /volume] in Central venous bloodOrdered By: Rylie Arreaga on 11-04-2024 CO2 [Moles/Vol] 27.2 mmol/L 21.0-32.0 [facility] Chloride assayOrdered By: Aaron Arreaga on 11-04-2024 Chloride [Moles/Vol] 98 mmol/L 98-108 [facility] Glomerular filtration rate ( GFR) estimation/1.73 sq m using serum, plasma, or whole bOrdered By: Rylie Arreaga on 11-04-2024 GFR/1.73 sq M.predicted among non-blacks MDRD (S/P/Bld) [Vol rate/Area] 66 mL/min/{1.73_m2} >60 [facility] Comment on above: mL/min/1.73m2 CKD-EP I Creatinine Equation (2020) International normalized rat io (INR) calculationOrdered By: Daniel Neal on 11-04-2024 INR Coag (Bld) [Relative time] 0.9 {INR} [facility] Partial Thromboplast Timeon 11-04-2024 aPTT Coag (Bld) [Time] 62.0 s High 24.1-36.2 [facility] Comment on above: Performed By: #### L 272.3508 #### [facility] [address] [place], [address] aPTT Coag (Bld) [Time] 24.9 s Normal 24.1-36.2 [facility] Comment on above: Performed By: #### L 294.3526 #### [facility] [address] [place], [address] Potassium measurement (mass/ volume)Ordered By: Rylie Arreaga on 11-04-2024 Potassium (Unsp spec) [Mass/Vol] 4.4 mmol/L 3.3-5.1 [facility] Prothrombin Time w/INRon INR Coag (PPP) [Relative time] 0.9 {INR} Normal [facility] Comment on above: Order Comment: Comme nts: please add on to labs already draWn Performed By: #### L 300.3900 ####[facility] [address] [place], [address] Prothrombin timeOrdered By: Daniel Neal on 11-04-2024 PT Coag (PPP) [Time] 12.4 s Normal 11.7-14.9 [facility] Comment on above: Order Comment: Comme nts: please add on to labs already draWn Performed By: #### L 300.3900 ####[facility] [address] [facility] [place], [address] Serum creatinine measurement (mass/volume)Ordered By: Rylie Arreaga on 11-04-2024 Creatinine [Mass/Vol] 1.08 mg/dL 0.70-1.20 [facility] Serum glucose measurement (m ass/volume)Ordered By: Rylie Arreaga on 11-04-2024 Glucose [Mass/Vol] 96 mg/dL 70-99 [facility] Serum or plasma calcium marlin urement (mass/volume)Ordered By: Rylie Arreaga on 11-04-2024 Calcium [Mass/Vol] 8.3 mg/dL 7.6-11.0 [facility] Serum or plasma urea nitroge n measurement (mass/volume)Ordered By: Rylie Arreaga on 11-04-2024 Urea nitrogen [Mass/Vol] 21 mg/dL High 4-19 [facility] Sodium levelOrdered By: Bo Arreaga on 11-04-2024 Sodium [Moles/Vol] 133 mmol/L 133-145 [facility] Venous Duplex US - Omar Extre mon 11-04-2024 Venous Duplex US - Omar Extrem [facility] [address] [place] [address] Venous Duplex US - Omar Extrem 11/04/24 1244 MR#: [id number] Acct: [id number] Name: RANULFODORIANJUSTINE RODRIGUEZ Rep #: [id number] : 1935 89 From: Santana Mason MD Attending Dr: Dr. Daniel Neal DO Status: A DM IN Ordering Dr: Daniel Neal DO Date: 11/04/24 Location: [facility]3 Sex: M C Admitted: 11/03/24 Reason For Study Reason For Study: Swelling RIGHT LEFT GSV is normal. GSV is normal. CFV is compressible, spontaneous, phasic, competent CFV is compressible, spontaneous, phasic, competent, and demonstrates normal augmentation. and demonstrates normal augmentation. Rt FV prox is partially compressible FV is compressible, spontaneous, phasic, competent Rt FV mid/distal is non compressible and demonstrates normal augmentation. Rt T/P Trunk is non compressible. POP V is compressible, spontaneous, phasic, competent POP V is compressible, spontaneous, phasic, competent and demonstrates normal augmentation. and demonstrates normal augmentation. T/P Trunk is compressible. PTV is compressible. PTV is compressible. RT PerV is compressible. LT PerV is compressible. Procedure This is a venous duplex using B-mode, color flow and spectral Doppler. Exam performed portable in patient room. A preliminary report was called and/or faxed to Dr. Neal. VL/Venous Duplex US - Omar Extrem Interpretation Summary Acute deep vein thrombosis noted in the right femoral vein, tibioperoneal trunk vein. Chronic deep vein thrombosis noted in right femoral vein. Ordering Physician: Daniel Neal Referring Physician: Shoshana Ulrich Performed By: Alyce Loredo, KRISHNA, RVT 11/05/24 1700 Date Santana Mason MD CC: Dr. Rand Rollins DO; Dr. Shoshana Ulrich MD; Dr. Daniel Neal DO Date Dictated: 11/04/24 1244 Date Transcribed: 11/05/24 170 Nuclear Equipment Research Engineer: Signed Normal [facility] Basic Metabolic Profile (BMP )on 11-03-2024 BUN/CRE 20.4 RATIO High 10-20 [facility] Comment on above: Performed By: #### L 500.2500, L100.0500 ####[facility] [address] [place], [address] Calcium [Mass/Vol] 8.2 mg/dL Normal 7.6-11.0 [facility] Comment on above: Performed By: #### L 500.2500, L100.0500 ####[facility] [address] [place], [address] Chloride [Moles/Vol] 104 mmol/L Normal 98-108 [facility] Comment on above: Performed By: #### L 500.2500, L100.0500 ####[facility] [address] [place], [address] CO2 [Moles/Vol] 25.7 mmol/L Normal 21.0-32.0 [facility] Comment on above: Performed By: #### L 500.2500, L100.0500 ####[facility] [address] [place], [address] Creatinine [Mass/Vol] 1.18 mg/dL Normal 0.70-1.20 [facility] Comment on above: Performed By: #### L 500.2500, L100.0500 ####[facility] [address] [place], [address] ECRCL 38.37 ml/min Low 50-250 [facility] Comment on above: Performed By: #### L 500.2500, L100.0500 ####[facility] [address] [place], [address] GAP 7 Normal 5-15 [facility] Comment on above: Performed By: #### L 500.2500, L100.0500 ####[facility] [address] [place], [address] GFR/1.73 sq M.predicted among non-blacks MDRD (S/P/Bld) [Vol rate/Area] 60 mL/min/{1.73_m2} Normal >60 [facility] Comment on above: Result Comment: mL/m in/1.73m2 CKD-EPI Creatinine Equation (2020) Performed By: #### L 500.2500, L100.0500 ####[facility] [address] [place], [address] Glucose [Mass/Vol] 116 mg/dL High 70-99 [facility] Comment on above: Performed By: #### L 500.2500, L100.0500 ####[facility] [address] [place], [address] Potassium [Moles/Vol] 4.9 mmol/L Normal 3.3-5.1 [facility] Comment on above: Performed By: #### L 500.2500, L100.0500 ####[facility] [address] [place], [address] Sodium [Moles/Vol] 137 mmol/L Normal 133-145 [facility] Comment on above: Performed By: #### L 500.2500, L100.0500 ####[facility] [address] [place], [address] Urea nitrogen [Mass/Vol] 24 mg/dL High 4-19 [facility] Comment on above: Performed By: #### L 500.2500, L100.0500 ####[facility] [address] [place], [address] CBC-Complete Blood Cnt No Di ffon 11-03-2024 Erythrocyte distribution width (RBC) [Ratio] 17.0 % High 11.6-14.6 [facility] Comment on above: Performed By: #### L 500.2500, L100.0500 ####[facility] [address] [place], [address] Hematocrit (Bld) [Volume fraction] 27.4 % Low 40-54 [facility] Comment on above: Performed By: #### L 500.2500, L100.0500 ####[facility] [address] [place], [address] Hemoglobin (Bld) [Mass/Vol] 9.3 g/dL Low 13.0-16.5 [facility] Comment on above: Performed By: #### L 500.2500, L100.0500 ####[facility] [address] [place], [address] MCH (RBC) [Entitic mass] 34.8 pg High 27.0-32.0 [facility] Comment on above: Performed By: #### L 500.2500, L100.0500 ####[facility] [address] [place], [address] MCHC (RBC) [Mass/Vol] 33.9 g/dL Normal 32-36 [facility] Comment on above: Performed By: #### L 500.2500, L100.0500 ####[facility] [address] [place], [address] MCV (RBC) [Entitic vol] 102.6 fL High 80-94 [facility] Comment on above: Performed By: #### L 500.2500, L100.0500 ####[facility] [address] [place], [address] Platelet mean volume (Bld) [Entitic vol] 9.8 fL Normal 6.2-12.0 [facility] Comment on above: Performed By: #### L 500.2500, L100.0500 ####[facility] [address] [place], [address] Platelets (Bld) [#/Vol] 164 10*3/uL Normal 150-450 [facility] Comment on above: Performed By: #### L 500.2500, L100.0500 ####[facility] [address] [place], [address] RBC (Bld) [#/Vol] 2.67 10*6/uL Low 4.6-6.2 [facility] Comment on above: Performed By: #### L 500.2500, L100.0500 ####[facility] [address] [place], [address] RDW SD 63.1 fl High 35.1-43.9 [facility] Comment on above: Performed By: #### L 500.2500, L100.0500 ####[facility] [address] [place], [address] WBC (Bld) [#/Vol] 5.1 10*3/uL Normal 4.4-11.0 [facility] Comment on above: Performed By: #### L 500.2500, L100.0500 ####[facility] [address] [place], [address] Abdomen/Pelvis W IV Cont ONL Yon 11-02-2024 Abdomen/Pelvis W IV Cont ONLY [facility] Imaging Services [address] [place] [address] Abdomen/Pelvis W IV Cont ONLY MR#: [id number] Acct: [id number] Name: DORIAN CRAMER Rep #: [id number] : 1935 M 89 From: Daniel Carlton MD PCP: Dr. Shoshana Ulrich MD Status: [facility] ER Study: Abdomen/Pelvis W IV Cont ONLY Date of Exam: Exam# [id number] Ordering Dr: Glauthier,Manju PA EXAM: CT Abdomen and Pelvis With Intravenous Contrast CLINICAL INDICATION: PAIN, HERNIA TECHNIQUE: Axial computed tomography images of the abdomen and pelvis with intravenous contrast. This CT exam was performed using one or more of the following dose reduction techniques: automated exposure control, adjustment of the mA and/or kV according to patient size, and/or use of iterative reconstruction technique. COMPARISON: CT Abdomen Pelvis dated 09/19/2023 FINDINGS: LUNG BASES: Right basilar atelectasis with nodular configuration. Repeat chest CT in 3 months is recommended. ABDOMEN: LIVER: Hepatomegaly with fatty infiltration. GALLBLADDER AND BILE DUCTS: Unremarkable. No calcified stones. No ductal dilation. PANCREAS: Unremarkable. No mass. No ductal dilation. SPLEEN: Unremarkable. No splenomegaly. ADRENALS: Right adrenal adenoma, stable. KIDNEYS AND URETERS: Right nephrolithiasis without hydronephrosis. Left renal cysts. STOMACH AND BOWEL: Distended colon with air-fluid levels measuring up to 8.1 cm in diameter could represent recent diarrhea. Colonic ileus can not be excluded. Colonic diverticulosis without acute diverticulitis. PELVIS: APPENDIX: No findings to suggest acute appendicitis. BLADDER: Unremarkable. No mass. REPRODUCTIVE: Unremarkable as visualized. ABDOMEN and PELVIS: INTRAPERITONEAL SPACE: Unremarkable. No free air. No significant fluid collection. BONES/JOINTS: Multilevel endplate degenerative changes and disc disease of the visualized spine. No acute fracture. No dislocation. SOFT TISSUES: Isodense lesion of the right aspect of the lower anterior abdominal wall measuring up to 6.7 cm. This could be a rectus sheath hematoma. Inguinal hernias, bilaterally. VASCULATURE: Scattered calcified atherosclerotic disease of the aorta measuring up to 2.9 cm in diameter. No abdominal aortic aneurysm. LYMPH NODES: Unremarkable. No enlarged lymph nodes. CT/Abdomen/Pelvis W IV Cont ONLY IMPRESSION: 1. Isodense lesion of the right aspect of the lower anterior abdominal wall measuring up to 6.7 cm. This could be a rectus sheath hematoma. 2. Distended colon with air-fluid levels measuring up to 8.1 cm in diameter could represent recent diarrhea. Colonic ileus can not be excluded. 3. Hepatomegaly with fatty infiltration. 4. Right nephrolithiasis without hydronephrosis. 5. Inguinal hernias, bilaterally. 6. Right basilar atelectasis with nodular configuration. Repeat chest CT in 3 months is recommended. 7. Colonic diverticulosis without acute diverticulitis. Reading Location: [facility] CC: Dr. Shoshana Ulrich MD; AARON Benítez Nuclear Equipment Research Engineer: Signed Normal [facility] Absolute lymphocyte countOrd ered By: Manju Zhong on 11-02-2024 Lymphocytes Auto (Unsp spec) [#/Vol] 0.34 10*3/uL Low 0.83-4.51 [facility] Absolute neutrophil countOrd ered By: Manju Zhong on 11-02-2024 Neutrophils (Bld) [#/Vol] 6.6 10*3/uL 2.0-7.7 [facility] Anion gap in Serum or Plasma Ordered By: Manju Zhong on 11-02-2024 Anion gap [Moles/Vol] 10 mmol/L 5-15 [facility] Automated lymphocyte count a s percentage of total leukocytesOrdered By: Manju Zhong on 11-02-2024 Lymphocytes/100 WBC Auto (Unsp spec) 4.5 % Low 19-41 [facility] BUN/creatinine ratioOrdered By: Manju Zhong on 11-02-2024 Urea nitrogen/Creatinine [Mass ratio] 21.3 mg/mg High 10- [facility] Basic Metabolic Profile (BMP )on 11-02-2024 BUN/CRE 21.3 RATIO High - [facility] Comment on above: Performed By: #### L 100.0500, L500.2500 #### [facility] [address] [place], [address] Calcium [Mass/Vol] 8.9 mg/dL Normal 7.6-11.0 [facility] Comment on above: Performed By: #### L 100.0500, L500.2500 #### [facility] [address] [place] [place], [address] Chloride [Moles/Vol] 103 mmol/L Normal 98-108 [facility] Comment on above: Performed By: #### L 100.0500, L500.2500 #### [facility] [address] [place], [address] CO2 [Moles/Vol] 27.6 mmol/L Normal 21.0-32.0 [facility] Comment on above: Performed By: #### L 100.0500, L500.2500 #### [facility] [address] [place], [address] Creatinine [Mass/Vol] 1.19 mg/dL Normal 0.70-1.20 [facility] Comment on above: Performed By: #### L 100.0500, L500.2500 #### [facility] [address] [place], [address] ECRCL 40.83 ml/min Low 50-250 [facility] Comment on above: Performed By: #### L 100.0500, L500.2500 #### [facility] [address] [place], [address] GAP 10 Normal 5-15 [facility] Comment on above: Performed By: #### L 100.0500, L500.2500 #### [facility] [address] [place], [address] GFR/1.73 sq M.predicted among non-blacks MDRD (S/P/Bld) [Vol rate/Area] 59 mL/min/{1.73_m2} Low >60 [facility] Comment on above: Result Comment: mL/m in/1.73m2 CKD-EPI Creatinine Equation (2020) Performed By: #### L 100.0500, L500.2500 #### [facility] [address] [place], [address] Glucose [Mass/Vol] 125 mg/dL High 70-99 [facility] Comment on above: Performed By: #### L 100.0500, L500.2500 #### [facility] [address] [place], [address] Potassium [Moles/Vol] 4.4 mmol/L Normal 3.3-5.1 [facility] Comment on above: Performed By: #### L 100.0500, L500.2500 #### [facility] [address] [place], [address] Sodium [Moles/Vol] 141 mmol/L Normal 133-145 [facility] Comment on above: Performed By: #### L 100.0500, L500.2500 #### [facility] [address] [place], [address] Urea nitrogen [Mass/Vol] 25 mg/dL High 4-19 [facility] Comment on above: Performed By: #### L 100.0500, L500.2500 #### [facility] [address] [place], [address] Basophil percentageOrdered B y: Manju Zhong on 11-02-2024 Basophils/100 WBC (Bld) 0.1 % 0-1 [facility] Bilirubin Test strip Ql (U)O rdered By: Manju Zhong on 11-02-2024 Bilirubin Ql (U) Negative Negative [facility] CBC W/Diff, Automatedon 10-15 Absolute Lymph 0.34 X10 3/uL Low 0.83-4.51 [facility] Comment on above: Performed By: #### L 100.0500, L500.2500 #### [facility] [address] [place], [address] Absolute Neut 6.6 X10 3/uL Normal 2.0-7.7 [facility] Comment on above: Performed By: #### L 100.0500, L500.2500 #### [facility] [address] [place], [address] Basophils/100 WBC (Bld) 0.1 % Normal 0-1 [facility] Comment on above: Performed By: #### L 100.0500, L500.2500 #### [facility] [address] [place], [address] Eosinophils/100 WBC (Bld) 0.0 % Normal 0-5 [facility] Comment on above: Performed By: #### L 100.0500, L500.2500 #### [facility] [address] [place], [address] Erythrocyte distribution width (RBC) [Ratio] 16.7 % High 11.6-14.6 [facility] Comment on above: Performed By: #### L 100.0500, L500.2500 #### [facility] [address] [place], [address] Hematocrit (Bld) [Volume fraction] 34.0 % Low 40-54 [facility] Comment on above: Performed By: #### L 100.0500, L500.2500 #### [facility] [address] [place], [address] Hemoglobin (Bld) [Mass/Vol] 11.4 g/dL Low 13.0-16.5 [facility] Comment on above: Performed By: #### L 100.0500, L500.2500 #### [facility] [address] [place], [address] IG% 1.300 High 0.0-0.9 [facility] Comment on above: Result Comment: IG% - Immature Granulocytes (promyelocytes, myelocytes and metamyelocytes) > 1% indicates that a LEFT SHIFT is Present. Performed By: #### L 100.0500, L500.2500 #### [facility] [address] [place], [address] Lymphocytes/100 WBC (Bld) 4.5 % Low 19-41 [facility] Comment on above: Performed By: #### L 100.0500, L500.2500 #### [facility] [address] [place], [address] MCH (RBC) [Entitic mass] 34.0 pg High 27.0-32.0 [facility] Comment on above: Performed By: #### L 100.0500, L500.2500 #### [facility] [address] [place], [address] MCHC (RBC) [Mass/Vol] 33.5 g/dL Normal 32-36 [facility] Comment on above: Performed By: #### L 100.0500, L500.2500 #### [facility] [address] [place], [address] MCV (RBC) [Entitic vol] 101.5 fL High 80-94 [facility] Comment on above: Performed By: #### L 100.0500, L500.2500 #### [facility] [address] [place], [address] Monocytes/100 WBC (Bld) 6.7 % Normal 0-10 [facility] Comment on above: Performed By: #### L 100.0500, L500.2500 #### [facility] [address] [place], [address] Neutrophils/100 WBC (Bld) 87.4 % High 47-70 [facility] Comment on above: Performed By: #### L 100.0500, L500.2500 #### [facility] [address] [place], [address] Nucleated RBC (Bld) [#/Vol] 0 10*3/uL Normal 0-5 [facility] Comment on above: Performed By: #### L 100.0500, L500.2500 #### [facility] [address] [place], [address] Platelet mean volume (Bld) [Entitic vol] 10.0 fL Normal 6.2-12.0 [facility] Comment on above: Performed By: #### L 100.0500, L500.2500 #### [facility] [address] [place], [address] Platelets (Bld) [#/Vol] 216 10*3/uL Normal 150-450 [facility] Comment on above: Performed By: #### L 100.0500, L500.2500 #### [facility] [address] [place], [address] RBC (Bld) [#/Vol] 3.35 10*6/uL Low 4.6-6.2 [facility] Comment on above: Performed By: #### L 100.0500, L500.2500 #### [facility] [address] [place], [address] RDW SD 62.1 fl High 35.1-43.9 [facility] Comment on above: Performed By: #### L 100.0500, L500.2500 #### [facility] [address] [place], [address] WBC (Bld) [#/Vol] 7.5 10*3/uL Normal 4.4-11.0 [facility] Comment on above: Performed By: #### L 100.0500, L500.2500 #### [facility] [address] [place], [address] Carbon dioxide, total [Moles /volume] in Central venous bloodOrdered By: Manju Zhong on 11-02-2024 CO2 [Moles/Vol] 27.6 mmol/L 21.0-32.0 [facility] Chloride assayOrdered By: Shahida Zhong on 11-02-2024 Chloride [Moles/Vol] 103 mmol/L 98-108 [facility] Emergency Department Summary on 11-02-2024 Emergency Department Summary [facility] Medical Records Department [address] [place] [address] Emergency Department Summary 11/02/24 MR#: [id number] Acct: [id number] Name: RANULFODORIANJUSTINE RODRIGUEZ Rep #: [id number] : 1935 89 From: Rand Rollins DO PCP: Dr. Shoshana Ulrich MD Status:ADM IN Location: MS3 QR370-2 HPI History of Present Illness Chief Complaint: Constipation Narrative Narrative: 89-year-old male with PMH of HTN, DVT on Eliquis presents with abdominal pain. Over the last 3 days he has had right lower abdominal pain and constipation. He noticed the area is swollen and bruised on his abdomen and denies trauma. He usually has a bowel movement daily so he thought the pain was from constipation and tried milk of magnesia and a fleets enema without improvement. He has no fever chills nausea or vomiting. He is still urinating normally. No abdominal surgical history. He states he had a colonoscopy a couple years ago which showed benign polyps. He has no history of bowel obstruction. He is on oxycodone 2-3 times daily for chronic back pain. 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 Wears glasses Wears hearing aid in both ears Cancer Alcohol abuse Hx of gout Heartburn CPAP (continuous positive airway pressure) dependence Shortness of breath on exertion Smoker Emphysema, unspecified Hypertension Restless legs Injury of back Home Medications ???Medication ???Instructions ???Recorded ???Last Taken ???Type albuterol sulfate 90 mcg/actuation 1 puff inhalation Q4H PRN Unknown History aerosol inhaler sob/wheezing amlodipine 5 mg tablet 5 mg PO DAILY 07/02/22 09/18/23 Hi story artifi.tears(hypromellose)( PF) 1.7 1 drp EACH EYE DAILY PRN dry eye s 09/19/23 Unknown History % eye drops with applicator oxybutynin chloride 10 mg 10 mg PO DAILY 09/19/23 Unknown Hi story tablet,extended release 24 hr nystatin 100,000 unit/gram topical 1 applic topical QDAY PRN yeast 07/13/24 Unknown History powder apixaban 5 mg tablet (Eliquis) 5 mg PO BID #180 tabs 07/25/24 Unk nown Rx oxycodone-acetaminophen 5 mg-325 1 tab PO TID PRN PRN pain 11/02/24 Unknown History mg tablet Allergy/AdvReac Type Severity Reaction Status Date / Time ibuprofen (From Motrin) Allergy Swelling Verified 11/02/24 15:49 Family History Mother , 61 Cancer Father , 91 AD (Alzheimer's disease) Surgical History History of hand surgery S/P insertion of spinal cord stimulator History of varicose vein stripping Hx of myringotomy History of parotidectomy History of esophagogastroduodenoscopy (EGD) History of cystoscopy Hx of basal cell carcinoma excision Hx of finger joint replacement Hx of decompressive lumbar laminectomy Social History household members: spouse and none housing: house current occupational status: retired pets and animals: Yes pets and animals: dog(s) Smoking Status: Current every day smoker tobacco type: cigarettes alcohol intake: current details: On avg a couple drinks each evening substance use type: does not use caffeine: Yes Type: coffee Number of servings: 2 do you feel safe at home: Yes ROS ROS ED ROS Narrative Constitutional: Negative for fever, chills, malaise. CVS: Negative for chest pain. Respiratory: Negative for shortness of breath. GI: Positive for abdominal pain, constipation. Negative for nausea, vomiting, melena, hematochezia. : Negative for dysuria. EXAM Physical Exam Narrative Exam Narrative: CONST: Patient sitting in no acute distress. EYES: Normal inspection. NECK: Normal inspection. RESP: No respiratory distress, CTAB. CVS: Regular rate and rhythm, no murmur, no gallop. ABD: Palpable tender mass right of the umbilicus with overlying bruising. The rest of his abdomen is soft and nontender. He also has bruising across the right lateral abdomen. No distention. No rigidity. SKIN: Color normal, no rash, warm, dry, intact. EXTREMITIES: Normal appearance, no pedal edema. NEURO: Alert and answering questions appropriately. PSYCH: Normal affect. Const Vital Signs: 11/03/24 08:25 11/03/24 08:25 11/03/24 08:26 Temperature Temperature Source Pulse Rate Pulse Strength Normal (2+) Respiratory Rate Respiratory Effort Normal Non-Labored Respiratory Depth Normal Respiratory Pattern Normal Blood Pressure Blood Pressur (more content not included)... Normal [facility] Eosinophil percentageOrdered By: Manju Zhong on 11-02-2024 Eosinophils/100 WBC (Bld) 0.0 % 0-5 [facility] Erythrocyte distribution wid th ratioOrdered By: Manju Zhong on 11-02-2024 Erythrocyte distribution width (RBC) [Ratio] 16.7 % High 11.6-14.6 [facility] Erythrocyte distribution wid th standard deviationOrdered By: Manju Zhong on 11-02-2024 Erythrocyte distribution width (RBC) [Ratio] 62.1 fl High 35.1-43.9 [facility] Glomerular filtration rate ( GFR) estimation/1.73 sq m using serum, plasma, or whole bOrdered By: Manju Zhong on 11-02-2024 GFR/1.73 sq M.predicted among non-blacks MDRD (S/P/Bld) [Vol rate/Area] 59 mL/min/{1.73_m2} Low >60 [facility] Comment on above: mL/min/1.73m2 CKD-EP I Creatinine Equation (2020) H AND P Exam - [place] 11-02-2024 H&P Exam - Hospitalist [facility] Medical Records Department [address] [place] [id number] H P Exam - Hospitalist 11/02/242114 MR#: [id number] Acct: [id number] Name: DORIAN CRAMER Rep #: [id number] : 1935 89 From: Raghav Serrano DO PCP: Dr. Shoshana Ulrich MD Status:ADM CATA Location: NC3 VA821-9 HPI - General General Date of Admission: 11/02/24 Date of Service: 11/02/24 Chief Complaint: Right lower abdominal pain HPI Narrative DORIAN CRAMER, is a 89 M who presented to [facility] ED on 11/02/2024 with worsening right lower abdominal pain. 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 He has been on Eliquis since that time with good improvement in his leg swelling and mobility. Has been following with vascular surgery in the office. Plan per vascular was for Eliquis 5 mg twice daily for minimum of 6 months given the unprovoked nature of the DVT. On presentation to the ED today, patient reports right lower abdominal pain and swelling with bruising over the past 3 to 4 days. He has also had constipation with this. CT abdomen pelvis showed a 6.7 cm isodense lesion in the right aspect of the lower anterior abdominal wall concerning for a rectus sheath hematoma; also showed a distended colon with air-fluid levels measuring up to 8.1 cm in diameter representing recent diarrhea versus colonic ileus. ED discussed with general surgery who noted that typical management is to discontinue the anticoagulant and rectal sheath hematoma will improve on its own. We also noted that supportive treatment for possible colonic ileus is reasonable for now. Notably hemoglobin was 11.4 in the ED with baseline hemoglobin around 11-12, and patient was hemodynamically stable on room air with heart rate in the 70s. Given these findings, hospitalist was contacted for admission. I saw the patient at bedside in the ED. Patient was mildly fatigued appearing but otherwise sitting back comfortably in bed, conversing normally, in no acute distress. He noted mild pain at the site of bruising and swelling currently that is worse with certain movements. He denies any lightheadedness/dizziness. Denies any other acute concerns currently. Will be admitted for further management. 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 Wears glasses Wears hearing aid in both ears Cancer Alcohol abuse Hx of gout Heartburn CPAP (continuous positive airway pressure) dependence Shortness of breath on exertion Smoker Emphysema, unspecified Hypertension Restless legs Injury of back Home Medications ???Medication ???Instructions ???Recorded ???Last Taken ???Type albuterol sulfate 90 mcg/actuation 1 puff inhalation Q4H PRN Unknown History aerosol inhaler sob/wheezing amlodipine 5 mg tablet 5 mg PO DAILY 07/02/22 09/18/23 Hi story artifi.tears(hypromellose)( PF) 1.7 1 drp EACH EYE DAILY PRN dry eye s 09/19/23 Unknown History % eye drops with applicator oxybutynin chloride 10 mg 10 mg PO DAILY 09/19/23 Unknown Hi story tablet,extended release 24 hr nystatin 100,000 unit/gram topical 1 applic topical QDAY PRN yeast 07/13/24 Unknown History powder apixaban 5 mg tablet (Eliquis) 5 mg PO BID #180 tabs 07/25/24 Unk nown Rx oxycodone-acetaminophen 5 mg-325 1 tab PO TID PRN PRN pain 11/02/24 Unknown History mg tablet Allergy/AdvReac Type Severity Reaction Status Date / Time ibuprofen (From Motrin) Allergy Swelling Verified 11/02/24 15:49 Family History Mother , 61 Cancer Father , 91 AD (Alzheimer's disease) Surgical History History of hand surgery S/P insertion of spinal cord stimulator History of varicose vein stripping Hx of myringotomy History of parotidectomy History of esophagogastroduodenoscopy (EGD) History of cystoscopy Hx of basal cell carcinoma excision Hx of finger joint replacement Hx of decompressive lumbar laminectomy Social History household members: spouse and none housing: house current occupational status: retired pets and animals: Yes pets and animals: dog(s) Smoking Status: Current every day smoker tobacco type: cigarettes alcohol intake: current details: On avg a couple drinks each evening substance use type: does not use caffeine: Yes Type: coffee Number of servings: 2 do you feel safe at home: Yes RAMONE Acevedoti (more content not included)... Normal [facility] Hematocrit Auto (Bld) [Volum e fraction]Ordered By: Manju Zhong on 11-02-2024 Hematocrit (Bld) [Volume fraction] 34.0 % Low 40-54 [facility] Hemoglobin measurementOrdere d By: Manju Zhong on 11-02-2024 Hemoglobin (Bld) [Mass/Vol] 11.4 g/dL Low 13.0-16.5 [facility] Immature granulocytes/100 WB C Auto (Bld)Ordered By: Manju Zhong on 11-02-2024 Immature granulocytes/100 WBC (Bld) 1.300 % High 0.0-0.9 [facility] Comment on above: IG% - Immature Granu locytes (promyelocytes, myelocytes and metamyelocytes) > 1% indicates that a LEFT SHIFT is Present. Ketones Test strip Ql (U)Ord ered By: Manju Zhong on 11-02-2024 Ketones Ql (U) Negative Negative [facility] Lactic Acidon 11-02-2024 Lactate [Moles/Vol] 1.4 mmol/L Normal 0.0-2.0 [facility] Comment on above: Order Comment: Y Performed By: #### L 100.0500, L500.2500 #### [facility] [address] [place] [address], [address] Lactic acid measurementOrder ed By: Manju Zhong on 11-02-2024 Lactate [Moles/Vol] 1.4 mmol/L 0.0-2.0 [facility] MCV (mean corpuscular volume ) determinationOrdered By: Manju Zhong on 11-02-2024 MCV (RBC) [Entitic vol] 101.5 fL High 80-94 [facility] Mean corpuscular hemoglobin (MCH) determinationOrdered By: Manju Zhong on 11-02-2024 MCH (RBC) [Entitic mass] 34.0 pg High 27.0-32.0 [facility] Mean corpuscular hemoglobin concentration (MCHC) determinationOrdered By: Manju Zhong on 11-02-2024 MCHC (RBC) [Mass/Vol] 33.5 g/dL 32-36 [facility] Mean platelet volume determi nationOrdered By: Manju Zhong on 11-02-2024 Platelet mean volume (Bld) [Entitic vol] 10.0 fL 6.2-12.0 [facility] Microscopic analysis of urin e for red blood cells (RBC)Ordered By: Manju Zhong on 11-02-2024 Microscopic analysis of urine for red blood cells (RBC) 0-5 SEEN /hpf 0-5 [facility] Monocyte percentageOrdered B y: Manju Zhong on 11-02-2024 Monocytes/100 WBC (Bld) 6.7 % 0-10 [facility] Mucus LM Ql (Urine sed)Order ed By: Manju Zhong on 11-02-2024 Mucus Ql (Urine sed) 0 SEEN /hpf [facility] Neutrophil percentageOrdered By: Manju Zhong on 11-02-2024 Neutrophils/100 WBC (Bld) 87.4 % High 47-70 [facility] Nitrite Test strip Ql (U)Ord ered By: Manju Zhong on 11-02-2024 Nitrite Ql (U) Negative Negative [facility] Nucleated red blood cell per centageOrdered By: Manju Zhong on 11-02-2024 Nucleated RBC/100 WBC (Bld) [Ratio] 0 % 0-5 [facility] Platelet countOrdered By: Shahida Zhong on 11-02-2024 Platelets (Bld) [#/Vol] 216 10*3/uL 150-450 [facility] Potassium measurement (mass/ volume)Ordered By: Manju Zhong on 11-02-2024 Potassium (Unsp spec) [Mass/Vol] 4.4 mmol/L 3.3-5.1 [facility] Protein Test strip Ql (U)Ord ered By: Manju Zhong on 11-02-2024 Protein Ql (U) 30 mg/dl High Negative [facility] RBC Auto (Bld) [#/Vol]Ordere d By: Manju Zhong on 11-02-2024 RBC (Bld) [#/Vol] 3.35 10*6/uL Low 4.6-6.2 [facility] Serum creatinine measurement (mass/volume)Ordered By: Manju Zhong on 11-02-2024 Creatinine [Mass/Vol] 1.19 mg/dL 0.70-1.20 [facility] Serum glucose measurement (m ass/volume)Ordered By: Manju Zhong on 11-02-2024 Glucose [Mass/Vol] 125 mg/dL High 70-99 [facility] Serum or plasma calcium marlin urement (mass/volume)Ordered By: Manju Zhong on 11-02-2024 Calcium [Mass/Vol] 8.9 mg/dL 7.6-11.0 [facility] Serum or plasma urea nitroge n measurement (mass/volume)Ordered By: Manju Zhong on 11-02-2024 Urea nitrogen [Mass/Vol] 25 mg/dL High 4-19 [facility] Sodium levelOrdered By: Manju Zhong on 11-02-2024 Sodium [Moles/Vol] 141 mmol/L 133-145 [facility] Squamous epithelial cells de tection in urine sediment by light microscopyOrdered By: Manju Zhong on 11-02-2024 Epithelial cells.squamous LM Ql (Urine sed) 0-5 SEEN /hpf 0-5 [facility] Urinalysis, Completeon 11-02 EPI,SQUAMOUS 0-5 SEEN Normal 0-5 [facility] Comment on above: Order Comment: EFFIE CTOR TO SPECIFY Performed By: #### L 100.0100 #### [facility] [address] [place], [address] RBC 0-5 SEEN Normal 0-5 [facility] Comment on above: Order Comment: EFFIE CTOR TO SPECIFY Performed By: #### L 100.0100 #### [facility] [address] [place], [address] WBC 0-5 SEEN Normal 0-5 [facility] Comment on above: Order Comment: EFFIE CTOR TO SPECIFY Performed By: #### L 100.0100 #### [facility] [address] [place], [address] BACTERIA 0 SEEN Normal None Seen [facility] Comment on above: Order Comment: EFFIE CTOR TO SPECIFY Performed By: #### L 100.0100 #### [facility] [address] [place], [address] Mucus Ql (Urine sed) 0 SEEN Normal [facility] Comment on above: Order Comment: COLLE CTOR TO SPECIFY Performed By: #### L 100.0100 #### [facility] [place], [address] Urine clarityOrdered By: Marcia Zhong on 11-02-2024 Clarity (U) Clear Clear [facility] Urine color determinationOrd ered By: Manju Zhong on 11-02-2024 Color (U) Yellow Yellow [facility] Urine glucose detectionOrder ed By: Manju Zhong on 11-02-2024 Glucose Ql (U) Normal mg/dl Normal [facility] Urine leukocyte esterase det ection by dipstickOrdered By: Manju Zhong on 11-02-2024 Leukocyte esterase Test strip Ql (U) Negative Negative [facility] Urine pHOrdered By: Manju donovan on 11-02-2024 pH (U) 8.0 [pH] 5.0 - 8.0 [facility] Urine sediment bacteria coun t by microscopy (number/high power field)Ordered By: Manju Zhong on 11-02-2024 Bacteria LM.HPF (Urine sed) [#/Area] 0 /[HPF] None Seen [facility] Urine specific gravity measu rementOrdered By: Manju Zhong on 11-02-2024 Specific gravity (U) [Rel density] 1.010 1.002-1.03 0 [facility] Urine urobilinogen measureme ntOrdered By: Manju Zhong on 11-02-2024 Urobilinogen Ql (U) Normal mg/dl Normal [facility] White blood cell (WBC) count Ordered By: Manju hZong on 11-02-2024 WBC (Bld) [#/Vol] 7.5 10*3/uL 4.4-11.0 [facility] White blood cell countOrdere d By: Manju Zhong on 11-02-2024 White blood cell count 0-5 SEEN /hpf 0-5 [facility] Absolute lymphocyte countOrd ered By: Shoshana Ulrich on 07-24-2024 Lymphocytes Auto (Unsp spec) [#/Vol] 0.98 10*3/uL 0.83-4.51 [facility] Absolute neutrophil countOrd ered By: Shoshana Ulrich on 07-24-2024 Neutrophils (Bld) [#/Vol] 5.8 10*3/uL 2.0-7.7 [facility] Anion gap in Serum or Plasma Ordered By: Shoshana Ulrich on 07-24-2024 Anion gap [Moles/Vol] 11 mmol/L 5-15 [facility] Automated lymphocyte count a s percentage of total leukocytesOrdered By: Shoshaan Ulrich on 07-24-2024 Lymphocytes/100 WBC Auto (Unsp spec) 12.7 % Low 19-41 [facility] BUN/creatinine ratioOrdered By: Shoshana Ulrich on 07-24-2024 Urea nitrogen/Creatinine [Mass ratio] 31.3 mg/mg High 10-20 [facility] Basophil percentageOrdered B y: Shoshana Ulrich on 07-24-2024 Basophils/100 WBC (Bld) 0.5 % 0-1 [facility] Bilirubin, totalOrdered By: Shoshana Ulrich on 07-24-2024 Bilirubin [Mass/Vol] 0.61 mg/dL 0.00-1.30 [facility] CBC W/Diff, Automatedon 07-14 Absolute Lymph 0.98 X10 3/uL Normal 0.83-4.51 [facility] Comment on above: Performed By: #### L 100.0100, L503.6550, L500.4050, L503.6030 #### [facility] [address] [place], [address] Absolute Neut 5.8 X10 3/uL Normal 2.0-7.7 [facility] Comment on above: Performed By: #### L 100.0100, L503.6550, L500.4050, L503.6030 #### [facility] [address] [place], [address] Basophils/100 WBC (Bld) 0.5 % Normal 0-1 [facility] Comment on above: Performed By: #### L 100.0100, L503.6550, L500.4050, L503.6030 #### [facility] [address] [place], [address] Eosinophils/100 WBC (Bld) 2.2 % Normal 0-5 [facility] Comment on above: Performed By: #### L 100.0100, L503.6550, L500.4050, L503.6030 #### [facility] [address] [place], [address] Erythrocyte distribution width (RBC) [Ratio] 15.0 % High 11.6-14.6 [facility] Comment on above: Performed By: #### L 100.0100, L503.6550, L500.4050, L503.6030 #### [facility] [address] [place], [address] Hematocrit (Bld) [Volume fraction] 38.2 % Low 40-54 [facility] Comment on above: Performed By: #### L 100.0100, L503.6550, L500.4050, L503.6030 #### [facility] [address] [place], [address] Hemoglobin (Bld) [Mass/Vol] 12.5 g/dL Low 13.0-16.5 [facility] Comment on above: Performed By: #### L 100.0100, L503.6550, L500.4050, L503.6030 #### [facility] [address] [place], [address] IG% 1.200 High 0.0-0.9 [facility] Comment on above: Result Comment: IG% - Immature Granulocytes (promyelocytes, myelocytes and metamyelocytes) > 1% indicates that a LEFT SHIFT is Present. Performed By: #### L 100.0100, L503.6550, L500.4050, L503.6030 #### [facility] [address] [place], [address] Lymphocytes/100 WBC (Bld) 12.7 % Low 19-41 [facility] Comment on above: Performed By: #### L 100.0100, L503.6550, L500.4050, L503.6030 #### [facility] [address] [place], [address] MCH (RBC) [Entitic mass] 32.4 pg High 27.0-32.0 [facility] Comment on above: Performed By: #### L 100.0100, L503.6550, L500.4050, L503.6030 #### [facility] [address] [place], [address] MCHC (RBC) [Mass/Vol] 32.7 g/dL Normal 32-36 [facility] Comment on above: Performed By: #### L 100.0100, L503.6550, L500.4050, L503.6030 #### [facility] [address] [place], [address] MCV (RBC) [Entitic vol] 99.0 fL High 80-94 [facility] Comment on above: Performed By: #### L 100.0100, L503.6550, L500.4050, L503.6030 #### [facility] [address] [place], [address] Monocytes/100 WBC (Bld) 7.7 % Normal 0-10 [facility] Comment on above: Performed By: #### L 100.0100, [id number], L500.4050, L503.6030 #### [facility] [address] [place], [address] Neutrophils/100 WBC (Bld) 75.7 % High 47-70 [facility] Comment on above: Performed By: #### L 100.0100, L503.6550, L500.4050, L503.6030 #### [facility] [address] [place], [address] Nucleated RBC (Bld) [#/Vol] 0 10*3/uL Normal 0-5 [facility] Comment on above: Performed By: #### L 100.0100, [id number], L500.4050, L503.6030 #### [facility] [address] [place], [address] Platelet mean volume (Bld) [Entitic vol] 10.7 fL Normal 6.2-12.0 [facility] Comment on above: Performed By: #### L 100.0100, L503.6550, L500.4050, L503.6030 #### [facility] [address] [place], [address] Platelets (Bld) [#/Vol] 271 10*3/uL Normal 150-450 [facility] Comment on above: Performed By: #### L 100.0100, [id number], L500.4050, L503.6030 #### [facility] [address] [place], [address] RBC (Bld) [#/Vol] 3.86 10*6/uL Low 4.6-6.2 [facility] Comment on above: Performed By: #### L 100.0100, [id number], L500.4050, L503.6030 #### [facility] [address] [place], [address] RDW SD 55.0 fl High 35.1-43.9 [facility] Comment on above: Performed By: #### L 100.0100, L503.6550, L500.4050, L503.6030 #### [facility] [address] [place], [address] WBC (Bld) [#/Vol] 7.7 10*3/uL Normal 4.4-11.0 [facility] Comment on above: Performed By: #### L 100.0100, L503.6550, L500.4050, L503.6030 #### [facility] [address] [place], [address] Calculated total iron bindin g capacityOrdered By: Shoshana Ulrich on 07-24-2024 Total Iron Binding Capacity 322 ug/dL 250-450 [facility] Carbon dioxide, total [Moles /volume] in Central venous bloodOrdered By: Shoshana Ulrich on 07-24-2024 CO2 [Moles/Vol] 24.2 mmol/L 21.0-32.0 [facility] Chloride assayOrdered By: Paul Ulrich on 07-24-2024 Chloride [Moles/Vol] 105 mmol/L 98-108 [facility] Comprehensive Metabolic Prof ilon 07-24-2024 Albumin [Mass/Vol] 4.2 g/dL Normal 3.4-4.8 [facility] Comment on above: Performed By: #### L 100.0100, L503.6550, L500.4050, L503.6030 #### [facility] [address] [place], [address] Albumin/Globulin [Mass ratio] 1.5 {ratio} Normal 0.9-2.4 [facility] Comment on above: Performed By: #### L 100.0100, [id number], L500.4050, L503.6030 #### [facility] [address] [place], [address] ALK PHOS 82 U/L Normal 40-129 [facility] Comment on above: Performed By: #### L 100.0100, L503.6550, L500.4050, L503.6030 #### [facility] [address] [place], [address] ALT [Catalytic activity/Vol] 20 U/L Normal <=46 [facility] Comment on above: Performed By: #### L 100.0100, L503.6550, L500.4050, L503.6030 #### [facility] [address] [place], [address] AST [Catalytic activity/Vol] 21 U/L Normal <=37 [facility] Comment on above: Performed By: #### L 100.0100, L503.6550, L500.4050, L503.6030 #### [facility] [address] [place], [address] Bilirubin [Mass/Vol] 0.61 mg/dL Normal 0.00-1.30 [facility] Comment on above: Performed By: #### L 100.0100, L503.6550, L500.4050, L503.6030 #### [facility] [address] [place], [address] BUN/CRE 31.3 RATIO High 10-20 [facility] Comment on above: Performed By: #### L 100.0100, L503.6550, L500.4050, L503.6030 #### [facility] [address] [place], [address] Calcium [Mass/Vol] 9.3 mg/dL Normal 7.6-11.0 [facility] Comment on above: Performed By: #### L 100.0100, L503.6550, L500.4050, L503.6030 #### [facility] [address] [place], [address] Chloride [Moles/Vol] 105 mmol/L Normal 98-108 [facility] Comment on above: Performed By: #### L 100.0100, L503.6550, L500.4050, L503.6030 #### [facility] [address] [place], [address] CO2 [Moles/Vol] 24.2 mmol/L Normal 21.0-32.0 [facility] Comment on above: Performed By: #### L 100.0100, L503.6550, L500.4050, L503.6030 #### [facility] [address] [place], [address] Creatinine [Mass/Vol] 1.27 mg/dL High 0.70-1.20 [facility] Comment on above: Performed By: #### L 100.0100, L503.6550, L500.4050, L503.6030 #### [facility] [address] [place], [address] GAP 11 Normal 5-15 [facility] Comment on above: Performed By: #### L 100.0100, L503.6550, L500.4050, L503.6030 #### [facility] [address] [place], [address] GFR/1.73 sq M.predicted among non-blacks MDRD (S/P/Bld) [Vol rate/Area] 55 mL/min/{1.73_m2} Low >60 [facility] Comment on above: Result Comment: mL/m in/1.73m2 CKD-EPI Creatinine Equation (2020) Performed By: #### L 100.0100, L503.6550, L500.4050, L503.6030 #### [facility] [address] [place], [address] Globulin (S) [Mass/Vol] 2.7 g/dL Normal 2.2-4.2 [facility] Comment on above: Performed By: #### L 100.0100, L503.6550, L500.4050, L503.6030 #### [facility] [address] [place], [address] Glucose [Mass/Vol] 84 mg/dL Normal 70-99 [facility] Comment on above: Performed By: #### L 100.0100, L503.6550, L500.4050, L503.6030 #### [facility] [address] [place], [address] Potassium [Moles/Vol] 4.8 mmol/L Normal 3.3-5.1 [facility] Comment on above: Performed By: #### L 100.0100, L503.6550, L500.4050, L503.6030 #### [facility] [address] [place], [address] Sodium [Moles/Vol] 140 mmol/L Normal 133-145 [facility] Comment on above: Performed By: #### L 100.0100, L503.6550, L500.4050, L503.6030 #### [facility] [address] [place], [address] T PROT 6.9 g/dL Normal 5.9-8.4 [facility] Comment on above: Performed By: #### L 100.0100, L503.6550, L500.4050, L503.6030 #### [facility] [address] [place], [address] Urea nitrogen [Mass/Vol] 40 mg/dL High 4-19 [facility] Comment on above: Performed By: #### L 100.0100, L503.6550, L500.4050, L503.6030 #### [facility] [address] [place], [address] Eosinophil percentageOrdered By: Shoshana Ulrich on 07-24-2024 Eosinophils/100 WBC (Bld) 2.2 % 0-5 [facility] Erythrocyte distribution wid th ratioOrdered By: Shoshana Ulrich on 07-24-2024 Erythrocyte distribution width (RBC) [Ratio] 15.0 % High 11.6-14.6 [facility] Erythrocyte distribution wid th standard deviationOrdered By: Shoshana Ulrich on 07-24-2024 Erythrocyte distribution width (RBC) [Entitic vol] 55.0 fL High 35.1-43.9 [facility] Erythrocyte distribution width (RBC) [Ratio] 55.0 fl High 35.1-43.9 [facility] Ferritinon 07-24-2024 Ferritin [Mass/Vol] 81 ng/mL Normal 37-417 [facility] Comment on above: Performed By: #### L 100.0100, L503.6550, L500.4050, L503.6030 ####[facility] [address] [place], [address] GFR/1.73 sq M.predicted sandhya g non-blacks MDRD (S/P/Bld) [Vol rate/Area]Ordered By: Shoshana Ulrich on 07-24-2024 Estimated GFR (MDRD) Non-Af Amer 55 Low >60 [facility] Comment on above: mL/min/1.73m2 CKD-EP I Creatinine Equation (2020) Glomerular filtration rate ( GFR) estimation/1.73 sq m using serum, plasma, or whole bOrdered By: Shoshana Ulrich on 07-24-2024 GFR/1.73 sq M.predicted among non-blacks MDRD (S/P/Bld) [Vol rate/Area] 55 mL/min/{1.73_m2} Low >60 [facility] Comment on above: mL/min/1.73m2 CKD-EP I Creatinine Equation (2020) Hematocrit Auto (Bld) [Volum e fraction]Ordered By: Shoshana Ulrich on 07-24-2024 Hematocrit (Bld) [Volume fraction] 38.2 % Low 40-54 [facility] Hemoglobin measurementOrdere d By: Shoshana Ulrich on 07-24-2024 Hemoglobin (Bld) [Mass/Vol] 12.5 g/dL Low 13.0-16.5 [facility] Immature granulocytes/100 WB C Auto (Bld)Ordered By: Shoshana Ulrich on 07-24-2024 Immature granulocytes/100 WBC (Bld) 1.200 % High 0.0-0.9 [facility] Comment on above: IG% - Immature Granu locytes (promyelocytes, myelocytes and metamyelocytes) > 1% indicates that a LEFT SHIFT is Present. Iron (Unsp spec) [Mass/Mass] Ordered By: Shoshana Ulrich on 07-24-2024 Iron [Mass/Vol] 119 ug/dL 65-175 [facility] Iron measurement (mass/mass) Ordered By: Shoshana Ulrich on 07-24-2024 Iron (Unsp spec) [Mass/Mass] 119 ug/dL 65-175 [facility] Iron saturation [Mass fracti on]Ordered By: Shoshana Ulrich on 07-24-2024 Iron Saturation 37.0 % -55 [facility] Iron+Iron Binding Capacityon 07-24-2024 Iron [Mass/Vol] 119 ug/dL Normal 65-175 [facility] Comment on above: Performed By: #### L 100.0100, L503.6550, L500.4050, L503.6030 #### [facility] [address] [place], [address] IRON SATURATION 37.0 Normal 9-55 [facility] Comment on above: Performed By: #### L 100.0100, L503.6550, L500.4050, L503.6030 #### [facility] [address] [place], [address] TIBC 322 ug/dL Normal 250-450 [facility] Comment on above: Performed By: #### L 100.0100, L503.6550, L500.4050, L503.6030 #### [facility] [address] [place], [address] UIBC 203 ug/dL Low 228-428 [facility] Comment on above: Performed By: #### L 100.0100, L503.6550, L500.4050, L503.6030 #### [facility] [address] [place], [address] Laboratory - Chemistry and C hemistry - challengeOrdered By: Shoshana Ulrich on 07-24-2024 AST [Catalytic activity/Vol] 21 U/L <38 [facility] Lymphocytes Auto (Unsp spec) [#/Vol]Ordered By: Shoshana Ulrich on 07-24-2024 Lymphocytes (Bld) [#/Vol] 0.98 10*3/uL 0.83-4.51 [facility] Lymphocytes/100 WBC Auto (Un sp spec)Ordered By: Shoshana Ulrich on 07-24-2024 Lymphocytes/100 WBC (Bld) 12.7 % Low 19-41 [facility] MCV (mean corpuscular volume ) determinationOrdered By: Shoshana Ulrich on 07-24-2024 MCV (RBC) [Entitic vol] 99.0 fL High 80-94 [facility] Mean corpuscular hemoglobin (MCH) determinationOrdered By: Shoshana Ulrich on 07-24-2024 MCH (RBC) [Entitic mass] 32.4 pg High 27.0-32.0 [facility] Mean corpuscular hemoglobin concentration (MCHC) determinationOrdered By: Shoshana Ulrich on 07-24-2024 MCHC (RBC) [Mass/Vol] 32.7 g/dL 32-36 [facility] Mean platelet volume determi nationOrdered By: Shoshana Ulrich on 07-24-2024 Platelet mean volume (Bld) [Entitic vol] 10.7 fL 6.2-12.0 [facility] Monocyte percentageOrdered B y: Shoshana Ulrich on 07-24-2024 Monocytes/100 WBC (Bld) 7.7 % 0-10 [facility] Neutrophil percentageOrdered By: Shoshana Ulrich on 07-24-2024 Neutrophils/100 WBC (Bld) 75.7 % High 47-70 [facility] No Panel InformationOrdered By: Shoshana Ulrich on 07-24-2024 Unsaturated Iron Binding Capacity 203 ug/dL Low 228-428 [facility] Nucleated red blood cell per centageOrdered By: Shoshana Ulrich on 07-24-2024 Nucleated RBC/100 WBC (Bld) [Ratio] 0 % 0-5 [facility] Platelet countOrdered By: Paul Ulrich on 07-24-2024 Platelets (Bld) [#/Vol] 271 10*3/uL 150-450 [facility] Potassium (Unsp spec) [Mass/ Vol]Ordered By: Shoshana Ulrich on 07-24-2024 Potassium [Moles/Vol] 4.8 mmol/L 3.3-5.1 [facility] Potassium measurement (mass/ volume)Ordered By: Shoshana Ulrich on 07-24-2024 Potassium (Unsp spec) [Mass/Vol] 4.8 mmol/L 3.3-5.1 [facility] RBC Auto (Bld) [#/Vol]Ordere d By: Shoshana Ulrich on 07-24-2024 RBC (Bld) [#/Vol] 3.86 10*6/uL Low 4.6-6.2 [facility] Serum creatinine measurement (mass/volume)Ordered By: Shoshana Ulrich on 07-24-2024 Creatinine [Mass/Vol] 1.27 mg/dL High 0.70-1.20 [facility] Serum globulin measurementOr dered By: Shoshana Ulrich on 07-24-2024 Globulin (S) [Mass/Vol] 2.7 g/dL 2.2-4.2 [facility] Serum glucose measurement (m ass/volume)Ordered By: Shoshana Ulrich on 07-24-2024 Glucose [Mass/Vol] 84 mg/dL 70-99 [facility] Serum or plasma alanine tavarez otransferase (ALT) measurementOrdered By: Shoshana Ulrich on 07-24-2024 ALT [Catalytic activity/Vol] 20 U/L <47 [facility] Serum or plasma albumin marlin urement (mass/volume)Ordered By: Shoshana Ulrich on 07-24-2024 Albumin [Mass/Vol] 4.2 g/dL 3.4-4.8 [facility] Serum or plasma albumin/glob ulin mass ratioOrdered By: Shoshana Ulrich on 07-24-2024 Albumin/Globulin [Mass ratio] 1.5 {ratio} 0.9-2.4 [facility] Serum or plasma alkaline erin sphatase measurementOrdered By: Shoshana Ulrich on 07-24-2024 ALP [Catalytic activity/Vol] 82 U/L 40-129 [facility] Serum or plasma calcium marlin urement (mass/volume)Ordered By: Shoshana Ulrich on 07-24-2024 Calcium [Mass/Vol] 9.3 mg/dL 7.6-11.0 [facility] Serum or plasma ferritin janice surement (mass/volume)Ordered By: Shoshana Ulrich on 07-24-2024 Ferritin [Mass/Vol] 81 ng/mL 37-417 [facility] Serum or plasma iron saturat ion measurement (mass fraction)Ordered By: Shoshana Ulrich on 07-24-2024 Iron saturation [Mass fraction] 37.0 % 9-55 [facility] Serum or plasma urea nitroge n measurement (mass/volume)Ordered By: Shoshana Ulrich on 07-24-2024 Urea nitrogen [Mass/Vol] 40 mg/dL High 4-19 [facility] Sodium levelOrdered By: Dario Ulrich on 07-24-2024 Sodium [Moles/Vol] 140 mmol/L 133-145 [facility] Total proteinOrdered By: Marlon Ulrich on 07-24-2024 Protein [Mass/Vol] 6.9 g/dL 5.9-8.4 [facility] White blood cell (WBC) count Ordered By: Shoshana Ulrich on 07-24-2024 WBC (Bld) [#/Vol] 7.7 10*3/uL 4.4-11.0 [facility] Neurology Visit Reporton Neurology Visit Report [facility] [address], [address] [place] [id number] OFFICE VISIT Date of Service: 07/13/24 MR#: [id number] Acct: [id number] Name: DORIAN CRAMER Rep #: [id number] : 1935 Provider: Dr. Jose weber MD Age/Sex: 89/M Location: [facility]. Status: Signed HPI [facility] Chief Complaint: Establish Care Details: The patient is a 89-year-old left handed male who presents to [facility]. He was referred 06/11/[address] Girish Rucker with [facility] for genital dysesthesia. This [...] hip flexors and extensors. Patient demonstrates a Milton sign and attempt to rise to standing [...] feet. Examination (more content not included)... Normal [facility] MR/BMS.David [facility]-26-2024 [facility] [address] [place], [place] [address] OFFICE VISIT Date of Service: 06/26/24 MR#: [id number] Acct: [id number] Name: DORIAN CRAMER Rep #: [id number] : 1935 Provider: AARON Gonzales Age/Sex: 89/M Location: [facility] Status: Signed Intake Vital Signs 06/20/24 16:05 [...] .COMPLEX 06/20/24 06/26/24 Rx a dose pack ([employer] DVT-PE Treat #74 tabs 30D Start) Have [...] which were treated by Dr. Lee via [facility] last year; has not had recurrence. ROS General General: No weight change, appetite, fatigue, colon cancer, breast cancer or weakness HEENT HEENT: No difficulty swallowing, eye injury, eye surgery, swollen glands or hoarseness Endo (more content not included)... Normal [facility] Emergency Department Summary on 06-20-2024 Emergency Department Summary [facility] Medical Records Department [address] [place] [address] Emergency Department Summary 06/20/24 MR#: [id number] Acct: [id number] Name: DORIAN CRAMER Rep #: [id number] : 1935 89 From: Marco Antonio Garay [...] states that he went and saw his clinical researcher today who ordered bilateral venous Doppler ultrasounds [...] intact Psych: Cooperative, appropriate mood and affect [facility] Medical History Alcohol abuse Alcohol use Cancer [...] 90 mcg/actuation 1 puff inhalation Q4H PRN Unknown History aerosol inhaler sob/wheezing amlodipine 5 [...] FV, P (more content not included)... Normal [facility] Venous Duplex US - Omar Extre [facility] 06-20-2024 Venous Duplex US - Omar Extrem [facility] Cardiovascular Services [address] [place] [address] Venous Duplex US - Omar [facility] 06/20/24 1545 MR#: [id number] Acct: [id number] Name: DORIAN CRAMER Rep #: [id number] : 1935 89 From: Santana Mason MD [...] Date Dictated: 06/20/24 1545 Date Transcribed: 06/21/241713 Nuclear Equipment Research Engineer: Signed Normal [facility] Emergency Department Summary on 05-26-2024 Emergency Department Summary [facility] Medical Records Department [address] [place] [address] Emergency Department Summary 05/26/24 MR#: [id number] Acct: [id number] Name: DORIAN CRAMER Rep #: [id number] : 1935 88 From: Manju WALKER PCP: [...] tingling. He is not on blood thinners. PFSH PFSH Medical History Alcohol abuse Alcohol [...] the left (more content not included)... Normal [facility] Shoulder min 2 Viewson 05-[address] [facility] Imaging Services [address] [place], [place] [address] Shoulder min 2 Views MR#: [id number] Acct: [id number] Name: DORIAN CRAMER Rep #: [id number] : 1935 M 88 From: Regina Steiner MD PCP: Dr. Shoshana Ulrich MD Status: REG ER Study: Shoulder min 2 Views Date of Exam: 05/26/24 Exam# [id number] Ordering Dr: Manju Zhong [id number] INDICATION: pain EXAMINATION/TECHNIQUE: X-RAY - LEFT XR [...] CC: Dr. Shoshana Ulrich MD; AARON Benítez Nuclear Equipment Research Engineer: Signed Normal [facility] Absolute neutrophil countOrd ered By: Shoshana Ulrich on 04-17-2024 Neutrophils (Bld) [#/Vol] 4.1 10*3/uL 2.0-7.7 [facility] Albumin to globulin ratioOrd ered By: Shoshana Ulrich on 04-17-2024 Albumin/Globulin [Mass ratio] 1.1 {ratio} 0.9-2.4 [facility] Basophil percentageOrdered B y: Shoshana Ulrich on 04-17-2024 Basophils/100 WBC (Bld) 0.7 % 0-1 [facility] Bilirubin, totalOrdered By: Shoshana Ulrich on 04-17-2024 Bilirubin [Mass/Vol] 0.40 mg/dL 0.20-1.00 [facility] Comment on above: For patients on eltr ombopag therapy, use of Dimension [place] TBIL is not recommended. Blood urea nitrogen (BUN)/cr eatinine ratioOrdered By: Shoshana Ulrich on 04-17-2024 Urea nitrogen/Creatinine [Mass ratio] 20.0 mg/mg 10-20 [facility] CBC W/Diff, Automatedon Anisocytosis Ql (Bld) 1+ Normal [facility] Comment on above: Performed By: #### L 100.0100 #### [facility] [address] [place], [address] PLT MORPH LARGE Normal [facility] Comment on above: Performed By: #### L 100.0100 #### [facility] [address] [place], [address] Carbon dioxide measurementOr dered By: Shoshana Ulrich on 04-17-2024 CO2 [Moles/Vol] 25.0 mmol/L 21.0-32.0 [facility] Chloride measurementOrdered By: Shoshana Ulrich on 04-17-2024 Chloride [Moles/Vol] 108 mmol/L High 98-107 [facility] Comprehensive Metabolic Prof ilon 04-17-2024 Albumin [Mass/Vol] 3.6 g/dL Normal 3.2-5.0 [facility] Comment on above: Performed By: #### L 100.0100 #### [facility] [address] [place], [address] Albumin/Globulin [Mass ratio] 1.1 {ratio} Normal 0.9-2.4 [facility] Comment on above: Performed By: #### L 100.0100 #### [facility] [address] [place], [address] ALK P 73 U/L Normal 45-117 [facility] Comment on above: Performed By: #### L 100.0100 #### [facility] [address] [place], [address] ALT [Catalytic activity/Vol] 19 U/L Normal 16-61 [facility] Comment on above: Performed By: #### L 100.0100 #### [facility] [address] [place], [address] AST [Catalytic activity/Vol] 18 U/L Normal 15-37 [facility] Comment on above: Performed By: #### L 100.0100 #### [facility] [address] [place], [address] Bilirubin [Mass/Vol] 0.40 mg/dL Normal 0.20-1.00 [facility] Comment on above: Result Comment: For patients on eltrombopag therapy, use of Dimension [place] TBIL is not recommended. Performed By: #### L 100.0100 #### [facility] [address] [place], [address] BUN/CRE 20.0 RATIO Normal 10-20 [facility] Comment on above: Performed By: #### L 100.0100 #### [facility] [address] [place], [address] CA,Total 8.8 mg/dL Normal 8.5-10.1 [facility] Comment on above: Performed By: #### L 100.0100 #### [facility] [address] [place], [address] Chloride [Moles/Vol] 108 mmol/L High 98-107 [facility] Comment on above: Performed By: #### L 100.0100 #### [facility] [address] [place], [address] CO2 [Moles/Vol] 25.0 mmol/L Normal 21.0-32.0 [facility] Comment on above: Performed By: #### L 100.0100 #### [facility] [address] [place], [address] Creatinine [Mass/Vol] 1.25 mg/dL Normal 0.70-1.30 [facility] Comment on above: Result Comment: The validity of the calculated GFR GFRAA in patients over 70 years has not been determined. Clinical correlation is essential. Performed By: #### L 100.0100 #### [facility] [address] [place], [address] EST GFR - AA 70 mL/min Normal >60 [facility] Comment on above: Result Comment: Afri can [place] GFR Calc Performed By: #### L 100.0100 #### [facility] [address] [place], [address] GAP 7 Normal 5-15 [facility] Comment on above: Performed By: #### L 100.0100 #### [facility] [address] [place], [address] GFR/1.73 sq M.predicted among non-blacks MDRD (S/P/Bld) [Vol rate/Area] 58 mL/min/{1.73_m2} Low >60 [facility] Comment on above: Result Comment: Non- GFR Calc Performed By: #### L 100.0100 #### [facility] [address] [place], [address] Globulin (S) [Mass/Vol] 3.4 g/dL Normal 2.2-4.2 [facility] Comment on above: Performed By: #### L 100.0100 #### [facility] [address] [place], [address] Glucose [Mass/Vol] 92 mg/dL Normal 74-106 [facility] Comment on above: Performed By: #### L 100.0100 #### [facility] [address] [place], [address] Potassium [Moles/Vol] 3.9 mmol/L Normal 3.5-5.1 [facility] Comment on above: Performed By: #### L 100.0100 #### [facility] [address] [place], [address] Sodium [Moles/Vol] 139 mmol/L Normal 136-145 [facility] Comment on above: Performed By: #### L 100.0100 #### [facility] [address] [place], [address] T PROT 7.0 g/dL Normal 6.4-8.2 [facility] Comment on above: Performed By: #### L 100.0100 #### [facility] [address] [place], [address] Urea nitrogen [Mass/Vol] 25 mg/dL High 7-18 [facility] Comment on above: Performed By: #### L 100.0100 #### [facility] [address] [place], [address] Eosinophil percentageOrdered By: Shoshana Ulrich on 04-17-2024 Eosinophils/100 WBC (Bld) 2.3 % 0-5 [facility] Erythrocyte distribution wid th ratioOrdered By: Shoshana Ulrich on 04-17-2024 Erythrocyte distribution width (RBC) [Ratio] 19.1 % High 11.6-14.6 [facility] Erythrocyte distribution wid th standard deviationOrdered By: Shoshana Ulrich on 04-17-2024 Erythrocyte distribution width (RBC) [Entitic vol] 68.1 fL High 35.1-43.9 [facility] Estimated glomerular filtrat ion rate (GFR) AmericanOrdered By: Shoshana Ulrich on 04-17-2024 Estimated GFR (MDRD) Amer 70 mL/min >60 [facility] Comment on above: GFR Calc Ferritinon 04-17-2024 Ferritin [Mass/Vol] 44 ng/mL Normal 26-388 [facility] Comment on above: Performed By: #### L 100.0100 #### [facility] [address] [place], [address] Ferritin measurementOrdered By: Shoshana Ulrich on 04-17-2024 Ferritin [Mass/Vol] 44 ng/mL 26-388 [facility] Glomerular filtration rate ( GFR) estimationOrdered By: Shoshana Ulrich on 04-17-2024 Estimated GFR (MDRD) Non-Af Amer 58 mL/min Low >60 [facility] Comment on above: Non- GFR Calc Glucose measurementOrdered B y: Shoshana Ulrich on 04-17-2024 Glucose [Mass/Vol] 92 mg/dL 74-106 [facility] Hematocrit Auto (Bld) [Volum e fraction]Ordered By: Shoshana Ulrich on 04-17-2024 Hematocrit (Bld) [Volume fraction] 38.2 % Low 40-54 [facility] Hemoglobin measurementOrdere d By: Shoshana Ulrich on 04-17-2024 Hemoglobin (Bld) [Mass/Vol] 12.0 g/dL Low 13.0-16.5 [facility] Immature granulocytes/100 WB C Auto (Bld)Ordered By: Shoshana Ulrich on 04-17-2024 Immature granulocytes/100 WBC (Bld) 0.500 % 0.0-0.9 [facility] Comment on above: IG% - Immature Granu locytes (promyelocytes, myelocytes and metamyelocytes) > 1% indicates that a LEFT SHIFT is Present. Iron (Unsp spec) [Mass/Mass] Ordered By: Shoshana Ulrich on 04-17-2024 Iron [Mass/Vol] 46 ug/dL Low 65-175 [facility] Iron saturation [Mass fracti on]Ordered By: Shoshana Ulrich on 04-17-2024 Iron Saturation 14.8 % Low 15.0-55.0 [facility] Iron+Iron Binding Capacityon 04-17-2024 Iron [Mass/Vol] 46 ug/dL Low 65-175 [facility] Comment on above: Performed By: #### L 100.0100 #### [facility] [address] [place], [place], [id number] IRON SATURATION 14.8 Low 15.0-55.0 [facility] Comment on above: Performed By: #### L 100.0100 #### [facility] [address] [place], [place], [id number] TIBC 311 ug/dL Normal 250-450 [facility] Comment on above: Performed By: #### L 100.0100 #### [facility] [address] [place], [place], [id number] Laboratory - Chemistry and C hemistry - challengeOrdered By: Shoshana Ulrich on 04-17-2024 AST [Catalytic activity/Vol] 18 U/L 15-37 [facility] - Hematology and Cell countsOrdered By: Shoshana Ulrich on 04-17-2024 Anisocytosis Ql (Bld) 1+ [facility] Lymphocytes Auto (Unsp spec) [#/Vol]Ordered By: Shoshana Ulrich on 04-17-2024 Lymphocytes (Bld) [#/Vol] 0.83 10*3/uL 0.83-4.51 [facility] Lymphocytes/100 WBC Auto (Un sp spec)Ordered By: Shoshana Ulrich on 04-17-2024 Lymphocytes/100 WBC (Bld) 14.9 % Low 19-41 [facility] MCV (mean corpuscular volume ) determinationOrdered By: Shoshana Ulrich on 04-17-2024 MCV (RBC) [Entitic vol] 96.7 fL High 80-94 [facility] Mean corpuscular hemoglobin (MCH) determinationOrdered By: Shoshana Ulrich on 04-17-2024 MCH (RBC) [Entitic mass] 30.4 pg 27.0-32.0 [facility] Mean corpuscular hemoglobin concentration (MCHC) determinationOrdered By: Shoshana Ulrich on 04-17-2024 MCHC (RBC) [Mass/Vol] 31.4 g/dL Low 32-36 [facility] Mean platelet volume determi nationOrdered By: Shoshana Ulrich on 04-17-2024 Platelet mean volume (Bld) [Entitic vol] 10.8 fL 6.2-12.0 [facility] Monocyte percentageOrdered B y: Shoshana Ulrich on 04-17-2024 Monocytes/100 WBC (Bld) 8.5 % 0-10 [facility] Neutrophil percentageOrdered By: Shoshana Ulrich on 04-17-2024 Neutrophils/100 WBC (Bld) 73.1 % High 47-70 [facility] Nucleated red blood cell per centageOrdered By: Shoshana Ulrich on 04-17-2024 Nucleated RBC/100 WBC (Bld) [Ratio] 0 % 0-5 [facility] Platelet countOrdered By: Paul Ulrich on 04-17-2024 Platelets (Bld) [#/Vol] 206 10*3/uL 150-450 [facility] Platelet morphology finding Nom (Bld)Ordered By: Shoshana Ulrich on 04-17-2024 Platelet Morphology Comment LARGE [facility] Potassium measurementOrdered By: Shoshana Ulrich on 04-17-2024 Potassium [Moles/Vol] 3.9 mmol/L 3.5-5.1 [facility] RBC Auto (Bld) [#/Vol]Ordere d By: Shoshana Ulrich on 04-17-2024 RBC (Bld) [#/Vol] 3.95 10*6/uL Low 4.6-6.2 [facility] Serum anion gap measurementO rdered By: Shoshana Ulrich on 04-17-2024 Anion gap [Moles/Vol] 7 mmol/L 5-15 [facility] Serum globulin measurementOr dered By: Shoshana Ulrich on 04-17-2024 Globulin (S) [Mass/Vol] 3.4 g/dL 2.2-4.2 [facility] Serum or plasma alanine tavarez otransferase (ALT) measurementOrdered By: Shoshana Ulrich on 04-17-2024 ALT [Catalytic activity/Vol] 19 U/L 16-61 [facility] Serum or plasma albumin marlin urement (mass/volume)Ordered By: Shoshana Ulrich on 04-17-2024 Albumin [Mass/Vol] 3.6 g/dL 3.2-5.0 [facility] Serum or plasma alkaline erin sphatase measurementOrdered By: Shoshana Ulrich on 04-17-2024 ALP [Catalytic activity/Vol] 73 U/L 45-117 [facility] Serum or plasma calcium marlin urement (mass/volume)Ordered By: Shoshana Ulrich on 04-17-2024 Calcium [Mass/Vol] 8.8 mg/dL 8.5-10.1 [facility] Serum or plasma creatinine m easurement (mass/volume)Ordered By: Shoshana Ulrich on 04-17-2024 Creatinine [Mass/Vol] 1.25 mg/dL 0.70-1.30 [facility] Comment on above: The validity of the calculated GFR & GFRAA in patients over 70 years has not been determined. Clinical correlation is essential. Serum or plasma urea nitroge n measurement (mass/volume)Ordered By: Shoshana Ulrich on 04-17-2024 Urea nitrogen [Mass/Vol] 25 mg/dL High 7-18 [facility] Sodium levelOrdered By: Dario Ulrich on 04-17-2024 Sodium [Moles/Vol] 139 mmol/L 136-145 [facility] TIBCOrdered By: Shoshana norman on 04-17-2024 Total Iron Binding Capacity 311 ug/dL 250-450 [facility] Total proteinOrdered By: Marlon Ulrich on 04-17-2024 Protein [Mass/Vol] 7.0 g/dL 6.4-8.2 [facility] White blood cell (WBC) count Ordered By: Shoshana Ulrich on 04-17-2024 WBC (Bld) [#/Vol] 5.6 10*3/uL 4.4-11.0 [facility] Absolute lymphocyte countOrd ered By: Rosemary Fernandez on 09-21-2023 Lymphocytes Auto (Unsp spec) [#/Vol] 0.77 10*3/uL 0.83-4.51 [facility] Automated lymphocyte count a s percentage of total leukocytesOrdered By: Rosemary Fernandez on 09-21-2023 Lymphocytes/100 WBC Auto (Unsp spec) 11.7 % 19-41 [facility] Basophil percentageOrdered B y: Rosemary Fernandez on 09-21-2023 Basophils/100 WBC (Bld) 0.3 % 0-1 [facility] Chloride [Moles/Vol] 109 mmol/L 98-107 [facility] Eosinophils/100 WBC (Bld) 5.2 % 0-5 [facility] Glucose [Mass/Vol] 91 mg/dL 74-106 [facility] Hemoglobin (Bld) [Mass/Vol] 9.4 g/dL 13.0-16.5 [facility] Monocytes/100 WBC (Bld) 5.8 % 0-10 [facility] Neutrophils (Bld) [#/Vol] 5.1 10*3/uL 2.0-7.7 [facility] Neutrophils/100 WBC (Bld) 76.7 % 47-70 [facility] Potassium [Moles/Vol] 4.2 mmol/L 3.5-5.1 [facility] Sodium [Moles/Vol] 141 mmol/L 136-145 [facility] WBC (Bld) [#/Vol] 6.6 10*3/uL 4.4-11.0 [facility] Determination of erythrocyte mean corpuscular volume (MCV)Ordered By: Rosemary Fernandez on 09-21-2023 MCV (RBC) [Entitic vol] 97.7 fL 80-94 [facility] Erythrocyte distribution wid th ratioOrdered By: Rosemary Fernandez on 09-21-2023 Erythrocyte distribution width (RBC) [Ratio] 16.8 % 11.6-14.6 [facility] Erythrocyte distribution wid th standard deviationOrdered By: Rosemary Fernandez on 09-21-2023 Erythrocyte distribution width (RBC) [Entitic vol] 60.4 fL 35.1-43.9 [facility] Hematocrit Auto (Bld) [Volum e fraction]Ordered By: Rosemary Fernandez on 09-21-2023 Hematocrit (Bld) [Volume fraction] 29.6 % 40-54 [facility] Immature granulocytes/100 WB C Auto (Bld)Ordered By: Rosemary Fernandez on 09-21-2023 Immature granulocytes/100 WBC (Bld) 0.300 % 0.0-0.9 [facility] Comment on above: IG% - Immature Granu locytes (promyelocytes, myelocytes and metamyelocytes) > 1% indicates that a LEFT SHIFT is Present. Laboratory - Chemistry and C hemistry - challengeOrdered By: Rosemary Fernandez on 09-21-2023 CO2 [Moles/Vol] 26.0 mmol/L 21.0-32.0 [facility] Urea nitrogen/Creatinine [Mass ratio] 16.0 mg/mg 10-20 [facility] Laboratory - Hematology and Cell countsOrdered By: Rosemary Fernandez on 09-21-2023 MCH (RBC) [Entitic mass] 31.0 pg 27.0-32.0 [facility] MCHC (RBC) [Mass/Vol] 31.8 g/dL 32-36 [facility] Nucleated RBC/100 WBC (Bld) [Ratio] 0 % 0-5 [facility] Platelet mean volume (Bld) [Entitic vol] 10.5 fL 6.2-12.0 [facility] Platelets (Bld) [#/Vol] 166 10*3/uL 150-450 [facility] No Panel InformationOrdered By: Rosemary Fernandez on 09-21-2023 Estimated Creatinine Clearance Calc 42.92 ml/min [facility] Estimated GFR (MDRD) Amer 75 mL/min >60 [facility] Comment on above: GFR Calc Estimated GFR (MDRD) Non-Af Amer 62 mL/min >60 [facility] Comment on above: Non- GFR Calc RBC Auto (Bld) [#/Vol]Ordere d By: Rosemary Fernandez on 09-21-2023 RBC (Bld) [#/Vol] 3.03 10*6/uL 4.6-6.2 [facility] Serum or plasma calcium marlin urement (mass/volume)Ordered By: Rosemary Fernandez on 09-21-2023 Calcium [Mass/Vol] 8.7 mg/dL 8.5-10.1 [facility] Serum or plasma creatinine m easurement (mass/volume)Ordered By: Rosemary Fernandez on 09-21-2023 Creatinine [Mass/Vol] 1.19 mg/dL 0.70-1.30 [facility] Comment on above: The validity of the calculated GFR & GFRAA in patients over 70 years has not been determined. Clinical correlation is essential. Serum or plasma urea nitroge n measurement (mass/volume)Ordered By: Rosemary Fernandez on 09-21-2023 Urea nitrogen [Mass/Vol] 19 mg/dL 7-18 [facility] Thin prep Papanicolaou smear with manual screeningOrdered By: Rosemary Fernandez on 09-21-2023 Thin prep Papanicolaou smear with manual screening 6 5-15 [facility] Basophil percentageOrdered B y: Rosemary Fernandez on 09-20-2023 Basophil percentage 3.4 mg/dL 2.5-4.9 [facility] Bilirubin [Mass/Vol] 0.60 mg/dL 0.20-1.00 [facility] Comment on above: For patients on eltr ombopag therapy, use of Dimension [place] TBIL is not recommended. Protein [Mass/Vol] 5.2 g/dL 6.4-8.2 [facility] Laboratory - Chemistry and C hemistry - challengeOrdered By: Rosemary Fernandez on 09-20-2023 Albumin/Globulin [Mass ratio] 1.1 {ratio} 0.9-2.4 [facility] ALP [Catalytic activity/Vol] 53 U/L 45-117 [facility] ALT [Catalytic activity/Vol] 15 U/L 16-61 [facility] Globulin (S) [Mass/Vol] 2.5 g/dL 2.2-4.2 [facility] Magnesium [Mass/Vol] 2.1 mg/dL 1.6-2.6 [facility] Serum or plasma thyroid stim ulating hormone (TSH) measurement (units/volume)Ordered By: Rosemary Fernandez on 09-20-2023 TSH Qn 1.09 uIU/mL 0.358-3.74 [facility] Thin prep Papanicolaou smear with manual screeningOrdered By: Rosemary Fernandez on 09-20-2023 Thin prep Papanicolaou smear with manual screening 2.7 g/dL 3.2-5.0 [facility] Thin prep Papanicolaou smear with manual screening 12 U/L 15-37 [facility] Absolute lymphocyte countOrd ered By: Russel Pal on 09-19-2023 Lymphocytes Auto (Unsp spec) [#/Vol] 1.04 10*3/uL 0.83-4.51 [facility] Automated lymphocyte count a s percentage of total leukocytesOrdered By: Russel Pal on 09-19-2023 Lymphocytes/100 WBC Auto (Unsp spec) 15.3 % 19-41 [facility] Basophil percentageOrdered B y: Russel Pal on 09-19-2023 Basophils/100 WBC (Bld) 0.6 % 0-1 [facility] Bilirubin [Mass/Vol] 0.30 mg/dL 0.20-1.00 [facility] Comment on above: For patients on eltr ombopag therapy, use of Dimension [place] TBIL is not recommended. Chloride [Moles/Vol] 111 mmol/L 98-107 [facility] Eosinophils/100 WBC (Bld) 8.1 % 0-5 [facility] Glucose [Mass/Vol] 109 mg/dL 74-106 [facility] Comment on above: Fasting Glucose resu lt from 100 to 125 mg/dL suggests IMPAIRED HOMEOSTASIS per A.D.A. criteria. Hemoglobin (Bld) [Mass/Vol] 10.9 g/dL 13.0-16.5 [facility] Monocytes/100 WBC (Bld) 6.9 % 0-10 [facility] Neutrophils (Bld) [#/Vol] 4.6 10*3/uL 2.0-7.7 [facility] Neutrophils/100 WBC (Bld) 68.4 % 47-70 [facility] Potassium [Moles/Vol] 4.5 mmol/L 3.5-5.1 [facility] Protein [Mass/Vol] 6.3 g/dL 6.4-8.2 [facility] Sodium [Moles/Vol] 139 mmol/L 136-145 [facility] WBC (Bld) [#/Vol] 6.8 10*3/uL 4.4-11.0 [facility] Clostridioides difficile nuc leic acid assay by PCROrdered By: Russel Pal on 09-19-2023 C. difficile DNA JOSTIN+probe Ql (Unsp spec) [facility] Determination of erythrocyte mean corpuscular volume (MCV)Ordered By: Russel Pal on 09-19-2023 MCV (RBC) [Entitic vol] 100.0 fL 80-94 [facility] Erythrocyte distribution wid th ratioOrdered By: Russel Pal on 09-19-2023 Erythrocyte distribution width (RBC) [Ratio] 14.9 % 11.6-14.6 [facility] Erythrocyte distribution wid th standard deviationOrdered By: Russel Pal on 09-19-2023 Erythrocyte distribution width (RBC) [Entitic vol] 55.0 fL 35.1-43.9 [facility] Hematocrit Auto (Bld) [Volum e fraction]Ordered By: Russel Pal on 09-19-2023 Hematocrit (Bld) [Volume fraction] 34.0 % 40-54 [facility] Immature granulocytes/100 WB C Auto (Bld)Ordered By: Russel Pal on 09-19-2023 Immature granulocytes/100 WBC (Bld) 0.700 % 0.0-0.9 [facility] Comment on above: IG% - Immature Granu locytes (promyelocytes, myelocytes and metamyelocytes) > 1% indicates that a LEFT SHIFT is Present. Laboratory - Chemistry and C hemistry - challengeOrdered By: Russel Pal on 09-19-2023 Albumin/Globulin [Mass ratio] 1.0 {ratio} 0.9-2.4 [facility] ALP [Catalytic activity/Vol] 62 U/L 45-117 [facility] ALT [Catalytic activity/Vol] 18 U/L 16-61 [facility] CO2 [Moles/Vol] 26.0 mmol/L 21.0-32.0 [facility] Globulin (S) [Mass/Vol] 3.1 g/dL 2.2-4.2 [facility] Urea nitrogen/Creatinine [Mass ratio] 24.0 mg/mg 10-20 [facility] Laboratory - CoagulationOrde red By: Russel Pal on 09-19-2023 INR Coag (Bld) [Relative time] 1.1 {INR} [facility] PT Coag (PPP) [Time] 13.8 s 11.7-14.9 [facility] Laboratory - Hematology and Cell countsOrdered By: Russel Pal on 09-19-2023 MCH (RBC) [Entitic mass] 32.1 pg 27.0-32.0 [facility] MCHC (RBC) [Mass/Vol] 32.1 g/dL 32-36 [facility] Nucleated RBC/100 WBC (Bld) [Ratio] 0 % 0-5 [facility] Platelet mean volume (Bld) [Entitic vol] 10.6 fL 6.2-12.0 [facility] Platelets (Bld) [#/Vol] 193 10*3/uL 150-450 [facility] No Panel InformationOrdered By: Russel Pal on 09-19-2023 Estimated Creatinine Clearance Calc 39.46 ml/min [facility] Estimated GFR (MDRD) Amer 70 mL/min >60 [facility] Comment on above: GFR Calc Estimated GFR (MDRD) Non-Af Amer 58 mL/min >60 [facility] Comment on above: Non- GFR Calc RBC Auto (Bld) [#/Vol]Ordere d By: Russel Pal on 09-19-2023 RBC (Bld) [#/Vol] 3.40 10*6/uL 4.6-6.2 [facility] Serum or plasma calcium marlin urement (mass/volume)Ordered By: Russel Pal on 09-19-2023 Calcium [Mass/Vol] 8.8 mg/dL 8.5-10.1 [facility] Serum or plasma creatinine m easurement (mass/volume)Ordered By: Russel Pal on 09-19-2023 Creatinine [Mass/Vol] 1.25 mg/dL 0.70-1.30 [facility] Comment on above: The validity of the calculated GFR & GFRAA in patients over 70 years has not been determined. Clinical correlation is essential. Serum or plasma urea nitroge n measurement (mass/volume)Ordered By: Russel aPl on 09-19-2023 Urea nitrogen [Mass/Vol] 30 mg/dL 7-18 [facility] Stool enteric pathogen panel by probe and target amplification methodOrdered By: Russel Pal on 09-19-2023 Gastrointestinal pathogens panel JOSTIN+probe ([facility]) [facility] Stool lactoferrin detection by immunoassayOrdered By: Russel Pal on 09-19-2023 Lactoferrin IA Ql ([facility]) [facility] Thin prep Papanicolaou smear with manual screeningOrdered By: Russel Pal on 09-19-2023 Thin prep Papanicolaou smear with manual screening 3.2 g/dL 3.2-5.0 [facility] Thin prep Papanicolaou smear with manual screening 15 U/L 15-37 [facility] Thin prep Papanicolaou smear with manual screening 2 5-15 [facility] Basophil percentageOrdered B y: Sunny Smiley on 08-11-2023 Chloride [Moles/Vol] 108 mmol/L 98-107 [facility] Glucose [Mass/Vol] 101 mg/dL 74-106 [facility] Comment on above: Fasting Glucose resu lt from 100 to 125 mg/dL suggests IMPAIRED HOMEOSTASIS per A.D.A. criteria. Hemoglobin (Bld) [Mass/Vol] 11.4 g/dL 13.0-16.5 [facility] Potassium [Moles/Vol] 4.2 mmol/L 3.5-5.1 [facility] Sodium [Moles/Vol] 140 mmol/L 136-145 [facility] WBC (Bld) [#/Vol] 5.8 10*3/uL 4.4-11.0 [facility] Determination of erythrocyte mean corpuscular volume (MCV)Ordered By: Sunny Smiley on 08-11-2023 MCV (RBC) [Entitic vol] 102.6 fL 80-94 [facility] Erythrocyte distribution wid th ratioOrdered By: Sunny Smiley on 08-11-2023 Erythrocyte distribution width (RBC) [Ratio] 14.5 % 11.6-14.6 [facility] Erythrocyte distribution wid th standard deviationOrdered By: Sunny Smiley on 08-11-2023 Erythrocyte distribution width (RBC) [Entitic vol] 54.7 fL 35.1-43.9 [facility] Hematocrit Auto (Bld) [Volum e fraction]Ordered By: Sunny Smiley on 08-11-2023 Hematocrit (Bld) [Volume fraction] 35.9 % 40-54 [facility] Laboratory - Chemistry and C hemistry - challengeOrdered By: Sunny Smiley on 08-11-2023 CO2 [Moles/Vol] 29.0 mmol/L 21.0-32.0 [facility] Urea nitrogen/Creatinine [Mass ratio] 22.6 mg/mg 10-20 [facility] - Hematology and Cell countsOrdered By: Sunny Smiley on 08-11-2023 MCH (RBC) [Entitic mass] 32.6 pg 27.0-32.0 [facility] MCHC (RBC) [Mass/Vol] 31.8 g/dL 32-36 [facility] Platelet mean volume (Bld) [Entitic vol] 10.0 fL 6.2-12.0 [facility] Platelets (Bld) [#/Vol] 230 10*3/uL 150-450 [facility] No Panel InformationOrdered By: Sunny Smiley on 08-11-2023 Estimated GFR (MDRD) Amer 78 mL/min >60 [facility] Comment on above: GFR Calc Estimated GFR (MDRD) Non-Af Amer 64 mL/min >60 [facility] Comment on above: Non- GFR Calc RBC Auto (Bld) [#/Vol]Ordere d By: Sunny Smiley on 08-11-2023 RBC (Bld) [#/Vol] 3.50 10*6/uL 4.6-6.2 [facility] Serum or plasma calcium marlin urement (mass/volume)Ordered By: Sunny Smiley on 08-11-2023 Calcium [Mass/Vol] 8.7 mg/dL 8.5-10.1 [facility] Serum or plasma creatinine m easurement (mass/volume)Ordered By: Sunny Smiley on 08-11-2023 Creatinine [Mass/Vol] 1.15 mg/dL 0.70-1.30 [facility] Comment on above: The validity of the calculated GFR & GFRAA in patients over 70 years has not been determined. Clinical correlation is essential. Serum or plasma urea nitroge n measurement (mass/volume)Ordered By: Sunny Smiley on 08-11-2023 Urea nitrogen [Mass/Vol] 26 mg/dL 7-18 [facility] Thin prep Papanicolaou smear with manual screeningOrdered By: Sunny Smiley on 08-11-2023 Thin prep Papanicolaou smear with manual screening 3 5-15 [facility] Absolute lymphocyte countOrd ered By: Shoshana Ulrich on 04-06-2023 Lymphocytes Auto (Unsp spec) [#/Vol] 0.67 10*3/uL 0.83-4.51 [facility] Basophil percentageOrdered B y: Shoshana Ulrich on 04-06-2023 Basophils/100 WBC (Bld) 0.5 % 0-1 [facility] Chloride [Moles/Vol] 102 mmol/L 98-107 [facility] Eosinophils/100 WBC (Bld) 0.5 % 0-5 [facility] Glucose [Mass/Vol] 104 mg/dL 74-106 [facility] Comment on above: Fasting Glucose resu lt from 100 to 125 mg/dL suggests IMPAIRED HOMEOSTASIS per A.D.A. criteria. Neutrophils (Bld) [#/Vol] 3.1 10*3/uL 2.0-7.7 [facility] Neutrophils/100 WBC (Bld) 73.0 % 47-70 [facility] Potassium [Moles/Vol] 4.1 mmol/L 3.5-5.1 [facility] Sodium [Moles/Vol] 137 mmol/L 136-145 [facility] WBC (Bld) [#/Vol] 4.3 10*3/uL 4.4-11.0 [facility] Blood erythrocytes count (nu mber/volume)Ordered By: Shoshana Ulrich on 04-06-2023 RBC (Bld) [#/Vol] 3.68 10*6/uL 4.6-6.2 [facility] Blood hemoglobin measurement (mass/volume)Ordered By: Shoshana Ulrich on 04-06-2023 Hemoglobin (Bld) [Mass/Vol] 12.5 g/dL 13.0-16.5 [facility] Blood lymphocytes/100 leukoc ytesOrdered By: Shoshana Ulrich on 04-06-2023 Lymphocytes/100 WBC (Bld) 15.7 % 19-41 [facility] Blood monocytes/100 leukocyt esOrdered By: Shoshana Ulrich on 04-06-2023 Monocytes/100 WBC (Bld) 9.1 % 0-10 [facility] Blood platelet mean volumeOr dered By: Shoshana Ulrich on 04-06-2023 Platelet mean volume (Bld) [Entitic vol] 11.4 fL 6.2-12.0 [facility] Determination of erythrocyte mean corpuscular volume (MCV)Ordered By: Shoshana Ulrich on 04-06-2023 MCV (RBC) [Entitic vol] 103.3 fL 80-94 [facility] Hematocrit Auto (Bld) [Volum e fraction]Ordered By: Shoshana Ulrich on 04-06-2023 Hematocrit (Bld) [Volume fraction] 38.0 % 40-54 [facility] Laboratory - Chemistry and C hemistry - challengeOrdered By: Shoshana Ulrich on 04-06-2023 CO2 [Moles/Vol] 29.0 mmol/L 21.0-32.0 [facility] Urea nitrogen/Creatinine [Mass ratio] 26.5 mg/mg 10-20 [facility] Laboratory - Hematology and Cell countsOrdered By: Shoshana Ulrich on 04-06-2023 Erythrocyte distribution width (RBC) [Entitic vol] 61.8 fL 35.1-43.9 [facility] Erythrocyte distribution width (RBC) [Ratio] 16.1 % 11.6-14.6 [facility] Immature granulocytes/100 WBC (Bld) 1.200 % 0.0-0.9 [facility] Comment on above: IG% - Immature Granu locytes (promyelocytes, myelocytes and metamyelocytes) > 1% indicates that a LEFT SHIFT is Present. MCH (RBC) [Entitic mass] 34.0 pg 27.0-32.0 [facility] Nucleated RBC/100 WBC (Bld) [Ratio] 0 % 0-5 [facility] MCHC Auto (RBC) [Mass/Vol]Or dered By: Shoshana Ulrich on 04-06-2023 MCHC (RBC) [Mass/Vol] 32.9 g/dL 32-36 [facility] No Panel InformationOrdered By: Shoshana Ulrich on 04-06-2023 Estimated GFR (MDRD) Amer 64 mL/min >60 [facility] Comment on above: GFR Calc Estimated GFR (MDRD) Non-Af Amer 53 mL/min >60 [facility] Comment on above: Non- GFR Calc Platelets bldOrdered By: Marlon Ulrich on 04-06-2023 Platelets (Bld) [#/Vol] 171 10*3/uL 150-450 [facility] Serum or plasma calcium marlin urement (mass/volume)Ordered By: Shoshana Ulrich on 04-06-2023 Calcium [Mass/Vol] 8.7 mg/dL 8.5-10.1 [facility] Serum or plasma creatinine m easurement (mass/volume)Ordered By: Shoshana Ulrich on 04-06-2023 Creatinine [Mass/Vol] 1.36 mg/dL 0.70-1.30 [facility] Comment on above: The validity of the calculated GFR & GFRAA in patients over 70 years has not been determined. Clinical correlation is essential. Serum or plasma urea nitroge n measurement (mass/volume)Ordered By: Shoshana Ulrich on 04-06-2023 Urea nitrogen [Mass/Vol] 36 mg/dL 7-18 [facility] Thin prep Papanicolaou smear with manual screeningOrdered By: Shoshana Ulrich on 04-06-2023 Thin prep Papanicolaou smear with manual screening 6 09-27 [facility] Culture, urineOrdered By: Nakita Foster on 12-10-2022 Bacteria identified Cx Nom (U) Culture exhibits no growth. [facility] Basophil percentageOrdered B y: Dr. Mendoza on 10-28-2022 Bilirubin [Mass/Vol] 0.60 mg/dL 0.20-1.00 [facility] Comment on above: For patients on eltr ombopag therapy, use of Dimension [place] TBIL is not recommended. Chloride [Moles/Vol] 111 mmol/L 98-107 [facility] Glucose [Mass/Vol] 116 mg/dL 74-106 [facility] Comment on above: Fasting Glucose resu lt from 100 to 125 mg/dL suggests IMPAIRED HOMEOSTASIS per A.D.A. criteria. Potassium [Moles/Vol] 4.4 mmol/L 3.5-5.1 [facility] Protein [Mass/Vol] 6.9 g/dL 6.4-8.2 [facility] Sodium [Moles/Vol] 142 mmol/L 136-145 [facility] WBC (Bld) [#/Vol] 7.4 10*3/uL 4.4-11.0 [facility] Blood erythrocytes count (nu mber/volume)Ordered By: Dr. Mendoza on 10-28-2022 RBC (Bld) [#/Vol] 3.93 10*6/uL 4.6-6.2 [facility] Blood hemoglobin measurement (mass/volume)Ordered By: Dr. Mendoza on 10-28-2022 Hemoglobin (Bld) [Mass/Vol] 12.5 g/dL 13.0-16.5 [facility] Blood platelet mean volumeOr dered By: Dr. Mendoza on 10-28-2022 Platelet mean volume (Bld) [Entitic vol] 10.5 fL 6.2-12.0 [facility] Determination of erythrocyte mean corpuscular volume (MCV)Ordered By: Dr. Mendoza on 10-28-2022 MCV (RBC) [Entitic vol] 99.0 fL 80-94 [facility] Direct bilirubinOrdered By: Dr. Mendoza on 10-28-2022 Bilirubin.direct [Mass/Vol] 0.14 mg/dL 0.00-0.30 [facility] Hematocrit Auto (Bld) [Volum e fraction]Ordered By: Dr. Mendoza on 10-28-2022 Hematocrit (Bld) [Volume fraction] 38.9 % 40-54 [facility] INR in Blood by Coagulation assayOrdered By: Dr. Mendoza on 10-28-2022 INR Coag (Bld) [Relative time] 1.0 {INR} [facility] Laboratory - Chemistry and C hemistry - challengeOrdered By: Dr. Mendoza on 10-28-2022 ALP [Catalytic activity/Vol] 88 U/L 45-117 [facility] ALT [Catalytic activity/Vol] 25 U/L 16-61 [facility] CO2 [Moles/Vol] 25.0 mmol/L 21.0-32.0 [facility] Globulin (S) [Mass/Vol] 3.7 g/dL 2.2-4.2 [facility] Urea nitrogen/Creatinine [Mass ratio] 16.7 mg/mg 10-20 [facility] Laboratory - CoagulationOrde red By: Dr. Mendoza on 10-28-2022 aPTT Coag (Bld) [Time] 27.5 s 24.1-36.2 [facility] PT Coag (PPP) [Time] 13.3 s 11.7-14.9 [facility] Laboratory - Hematology and Cell countsOrdered By: Dr. Mendoza on 10-28-2022 Erythrocyte distribution width (RBC) [Entitic vol] 55.0 fL 35.1-43.9 [facility] Erythrocyte distribution width (RBC) [Ratio] 15.0 % 11.6-14.6 [facility] MCH (RBC) [Entitic mass] 31.8 pg 27.0-32.0 [facility] MCHC Auto (RBC) [Mass/Vol]Or dered By: Dr. Mendoza on 10-28-2022 MCHC (RBC) [Mass/Vol] 32.1 g/dL 32-36 [facility] No Panel InformationOrdered By: Dr. Mendoza on 10-28-2022 Estimated GFR (MDRD) Amer 66 mL/min >60 [facility] Comment on above: GFR Calc Estimated GFR (MDRD) Non-Af Amer 55 mL/min >60 [facility] Comment on above: Non- GFR Calc Platelets bldOrdered By: Dr. Mendoza on 10-28-2022 Platelets (Bld) [#/Vol] 212 10*3/uL 150-450 [facility] Serum or plasma albumin marlin urement (mass/volume)Ordered By: Dr. Mendoza on 10-28-2022 Albumin [Mass/Vol] 3.2 g/dL 3.2-5.0 [facility] Serum or plasma calcium marlin urement (mass/volume)Ordered By: Dr. Mendoza on 10-28-2022 Calcium [Mass/Vol] 8.4 mg/dL 8.5-10.1 [facility] Serum or plasma creatinine m easurement (mass/volume)Ordered By: Dr. Mendoza on 10-28-2022 Creatinine [Mass/Vol] 1.32 mg/dL 0.70-1.30 [facility] Comment on above: The validity of the calculated GFR & GFRAA in patients over 70 years has not been determined. Clinical correlation is essential. Serum or plasma urea nitroge n measurement (mass/volume)Ordered By: Dr. Mendoza on 10-28-2022 Urea nitrogen [Mass/Vol] 22 mg/dL 7-18 [facility] Thin prep Papanicolaou smear with manual screeningOrdered By: Dr. Mendoza on 10-28-2022 Thin prep Papanicolaou smear with manual screening 21 U/L 15-37 [facility] Thin prep Papanicolaou smear with manual screening 6 5-15 [facility] Basophil percentageOrdered B y: Dr. Ruby on 10-07-2022 Chloride [Moles/Vol] 109 mmol/L 98-107 [facility] Glucose [Mass/Vol] 111 mg/dL 74-106 [facility] Comment on above: Fasting Glucose resu lt from 100 to 125 mg/dL suggests IMPAIRED HOMEOSTASIS per A.D.A. criteria. Potassium [Moles/Vol] 3.7 mmol/L 3.5-5.1 [facility] Sodium [Moles/Vol] 141 mmol/L 136-145 [facility] Laboratory - Chemistry and C hemistry - challengeOrdered By: Dr. Ruby on 10-07-2022 CO2 [Moles/Vol] 30.0 mmol/L 21.0-32.0 [facility] Urea nitrogen/Creatinine [Mass ratio] 12.9 mg/mg 10-20 [facility] No Panel InformationOrdered By: Dr. Ruby on 10-07-2022 Estimated Creatinine Clearance Calc 42.14 ml/min [facility] Estimated GFR (MDRD) Amer 71 mL/min >60 [facility] Comment on above: GFR Calc Estimated GFR (MDRD) Non-Af Amer 59 mL/min >60 [facility] Comment on above: Non- GFR Calc Serum or plasma calcium marlin urement (mass/volume)Ordered By: Dr. Ruby on 10-07-2022 Calcium [Mass/Vol] 8.5 mg/dL 8.5-10.1 [facility] Serum or plasma creatinine m easurement (mass/volume)Ordered By: Dr. Ruby on 10-07-2022 Creatinine [Mass/Vol] 1.24 mg/dL 0.70-1.30 [facility] Comment on above: The validity of the calculated GFR & GFRAA in patients over 70 years has not been determined. Clinical correlation is essential. Serum or plasma urea nitroge n measurement (mass/volume)Ordered By: Dr. Ruby on 10-07-2022 Urea nitrogen [Mass/Vol] 16 mg/dL 7-18 [facility] Thin prep Papanicolaou smear with manual screeningOrdered By: Dr. Ruby on 10-07-2022 Thin prep Papanicolaou smear with manual screening 2 5-15 [facility] Basophil percentageOrdered B y: Dr. Foster on 07-12-2022 Chloride [Moles/Vol] 103 mmol/L 98-107 [facility] Glucose [Mass/Vol] 81 mg/dL 74-106 [facility] Potassium [Moles/Vol] 3.8 mmol/L 3.5-5.1 [facility] Sodium [Moles/Vol] 137 mmol/L 136-145 [facility] WBC (Bld) [#/Vol] 6.3 10*3/uL 4.4-11.0 [facility] Blood erythrocytes count (nu mber/volume)Ordered By: Dr. Foster on 07-12-2022 RBC (Bld) [#/Vol] 3.72 10*6/uL 4.6-6.2 [facility] Blood hemoglobin measurement (mass/volume)Ordered By: Dr. Foster on 07-12-2022 Hemoglobin (Bld) [Mass/Vol] 12.6 g/dL 13.0-16.5 [facility] Blood platelet mean volumeOr dered By: Dr. Foster on 07-12-2022 Platelet mean volume (Bld) [Entitic vol] 10.6 fL 6.2-12.0 [facility] Determination of erythrocyte mean corpuscular volume (MCV)Ordered By: Dr. Foster on 07-12-2022 MCV (RBC) [Entitic vol] 101.6 fL 80-94 [facility] Hematocrit Auto (Bld) [Volum e fraction]Ordered By: Dr. Foster on 07-12-2022 Hematocrit (Bld) [Volume fraction] 37.8 % 40-54 [facility] Laboratory - Chemistry and C hemistry - challengeOrdered By: Dr. Foster on 07-12-2022 CO2 [Moles/Vol] 25.0 mmol/L 21.0-32.0 [facility] Urea nitrogen/Creatinine [Mass ratio] 17.5 mg/mg 10-20 [facility] Laboratory - Hematology and Cell countsOrdered By: Dr. Foster on 07-12-2022 Erythrocyte distribution width (RBC) [Entitic vol] 59.7 fL 35.1-43.9 [facility] Erythrocyte distribution width (RBC) [Ratio] 15.8 % 11.6-14.6 [facility] MCH (RBC) [Entitic mass] 33.9 pg 27.0-32.0 [facility] MCHC Auto (RBC) [Mass/Vol]Or dered By: Dr. Foster on 07-12-2022 MCHC (RBC) [Mass/Vol] 33.3 g/dL 32-36 [facility] No Panel InformationOrdered By: Dr. Foster on 07-12-2022 Estimated GFR (MDRD) Amer 70 mL/min >60 [facility] Comment on above: GFR Calc Estimated GFR (MDRD) Non-Af Amer 58 mL/min >60 [facility] Comment on above: Non- GFR Calc Platelets bldOrdered By: Dr. Foster on 07-12-2022 Platelets (Bld) [#/Vol] 156 10*3/uL 150-450 [facility] Serum or plasma calcium marlin urement (mass/volume)Ordered By: Dr. Foster on 07-12-2022 Calcium [Mass/Vol] 8.5 mg/dL 8.5-10.1 [facility] Serum or plasma creatinine m easurement (mass/volume)Ordered By: Dr. Foster on 07-12-2022 Creatinine [Mass/Vol] 1.26 mg/dL 0.70-1.30 [facility] Comment on above: The validity of the calculated GFR & GFRAA in patients over 70 years has not been determined. Clinical correlation is essential. Serum or plasma urea nitroge n measurement (mass/volume)Ordered By: Dr. Foster on 07-12-2022 Urea nitrogen [Mass/Vol] 22 mg/dL 7-18 [facility] Thin prep Papanicolaou smear with manual screeningOrdered By: Dr. Foster on 07-12-2022 Thin prep Papanicolaou smear with manual screening 9 5-15 [facility] Basophil percentageOrdered B y: ED PROVIDER on 04-09-2022 Basophil percentage 0-5 SEEN /hpf 0-5 [facility] Bilirubin Test strip Ql (U)O rdered By: ED PROVIDER on 04-09-2022 Bilirubin Ql (U) Negative Negative [facility] Ketones Test strip Ql (U)Ord ered By: ED PROVIDER on 04-09-2022 Ketones Ql (U) Negative Negative [facility] Mucus LM Ql (Urine sed)Order ed By: ED PROVIDER on 04-09-2022 Mucus Ql (Urine sed) 0 SEEN /hpf [facility] Nitrite Test strip Ql (U)Ord ered By: ED PROVIDER on 04-09-2022 Nitrite Ql (U) Negative Negative [facility] Protein Test strip Ql (U)Ord ered By: ED PROVIDER on 04-09-2022 Protein Ql (U) 15 mg/dl Negative [facility] Squamous epithelial cells de tection in urine sediment by light microscopyOrdered By: ED PROVIDER on 04-09-2022 Epithelial cells.squamous LM Ql (Urine sed) 0 SEEN /hpf 0-5 [facility] Urine blood detectionOrdered By: ED PROVIDER on 04-09-2022 RBC Ql (U) Negative Negative [facility] RBC Ql (U) 0-5 SEEN /hpf 0-5 [facility] Urine clarityOrdered By: ED PROVIDER on 04-09-2022 Clarity (U) Clear Clear [facility] Urine color determinationOrd ered By: ED PROVIDER on 04-09-2022 Color (U) Yellow Yellow [facility] Urine glucose detectionOrder ed By: ED PROVIDER on 04-09-2022 Glucose Ql (U) Normal mg/dl Normal [facility] Urine leukocyte esterase det ection by dipstickOrdered By: ED PROVIDER on 04-09-2022 Leukocyte esterase Test strip Ql (U) 25 /ul Negative [facility] Urine pHOrdered By: ED PROVI KELECHI on 04-09-2022 pH (U) 7.0 [pH] 5.0 - 8.0 [facility] Urine sediment bacteria coun t by microscopy (number/high power field)Ordered By: ED PROVIDER on 04-09-2022 Bacteria LM.HPF (Urine sed) [#/Area] RARE /hpf None Seen [facility] Urine specific gravity measu rementOrdered By: ED PROVIDER on 04-09-2022 Specific gravity (U) [Rel density] 1.010 1.002-1.03 0 [facility] Urobilinogen Auto test strip Ql (U)Ordered By: ED PROVIDER on 04-09-2022 Urobilinogen Ql (U) Normal mg/dl Normal [facility] Final Surgical Pathology Rep [facility] 09-14-2021 Final Surgical Pathology Report . Pathology Reports Accession: Collected Date/Time: Received Date/Time: Pathologist: [id number] 09/11/2021 10:34 EDT 09/11/2021 12:06 EDT FERNANDO [...] Electronically Signed by Pathology Report verified by [facility] Electronically signed by FERNANDO ZHAO Sign out Date: 09/14/2021 13:50 Performing Lab: [facility], [address] [place] [id number] [place] [address] ([place]) Absolute lymphocyte counton 09-08-2021 Lymphocytes Auto (Unsp spec) [#/Vol] 1.03 10*3/uL 0.83-4.51 [facility] Work Phone: [phone] Basophil percentageon 2021 Basophil percentage 0 SEEN /hpf 0-5 [facility] Work Phone: [phone] Basophils/100 WBC (Bld) 0.6 % 0-1 [facility] Work Phone: Bilirubin [Mass/Vol] 1.20 mg/dL 0.20-1.00 [facility] Work Phone: Comment on above: For patients on eltr ombopag therapy, use of Dimension [place] TBIL is not recommended. Chloride [Moles/Vol] 103 mmol/L 98-107 [facility] Work Phone: Eosinophils/100 WBC (Bld) 3.1 % 0-5 [facility] Work Phone: [phone] Glucose [Mass/Vol] 104 mg/dL 74-106 [facility] Work Phone: Comment on above: Fasting Glucose resu lt from 100 to 125 mg/dL suggests IMPAIRED HOMEOSTASIS per A.D.A. criteria. Neutrophils (Bld) [#/Vol] 3.4 10*3/uL 2.0-7.7 [facility] Work Phone: Neutrophils/100 WBC (Bld) 66.9 % 47-70 [facility] Work Phone: [phone] Potassium [Moles/Vol] 4.2 mmol/L 3.5-5.1 [facility] Work Phone: [phone] Protein [Mass/Vol] 7.7 g/dL 6.4-8.2 [facility] Work Phone: Sodium [Moles/Vol] 136 mmol/L 136-145 [facility] Work Phone: WBC (Bld) [#/Vol] 5.1 10*3/uL 4.4-11.0 [facility] Work Phone: Bilirubin Test strip Ql (U)o n 09-08-2021 Bilirubin Ql (U) Negative Negative [facility] Work Phone: Blood erythrocytes count (nu mber/volume)on 09-08-2021 RBC (Bld) [#/Vol] 4.65 10*6/uL 4.6-6.2 [facility] Work Phone: Blood hemoglobin measurement (mass/volume)on 09-08-2021 Hemoglobin (Bld) [Mass/Vol] 14.4 g/dL 13.0-16.5 [facility] Work Phone: Blood lymphocytes/100 leukoc yteson 09-08-2021 Lymphocytes/100 WBC (Bld) 20.3 % 19-41 [facility] Work Phone: Blood monocytes/100 leukocyt eson 09-08-2021 Monocytes/100 WBC (Bld) 8.7 % 0-10 [facility] Work Phone: Blood platelet mean volumeon 09-08-2021 Platelet mean volume (Bld) [Entitic vol] 10.1 fL 6.2-12.0 [facility] Work Phone: Determination of erythrocyte mean corpuscular volume (MCV)on 09-08-2021 MCV (RBC) [Entitic vol] 94.6 fL 80-94 [facility] Work Phone: Hematocrit Auto (Bld) [Volum e fraction]on 09-08-2021 Hematocrit (Bld) [Volume fraction] 44.0 % 40-54 [facility] Work Phone: Ketones Test strip Ql (U)on 09-08-2021 Ketones Ql (U) 5 mg/dl Negative [facility] Work Phone: Laboratory - Chemistry and C hemistry - challengeon 09-08-2021 ALP [Catalytic activity/Vol] 96 U/L 45-117 [facility] Work Phone: ALT [Catalytic activity/Vol] 19 U/L 16-61 [facility] Work Phone: CO2 [Moles/Vol] 29.0 mmol/L 21.0-32.0 [facility] Work Phone: Globulin (S) [Mass/Vol] 3.9 g/dL 2.2-4.2 [facility] Work Phone: Lipase [Catalytic activity/Vol] 78 U/L 73-393 [facility] Work Phone: Urea nitrogen/Creatinine [Mass ratio] 14.1 mg/mg 10-20 [facility] Work Phone: Laboratory - Hematology and Cell countson 09-08-2021 Erythrocyte distribution width (RBC) [Entitic vol] 58.5 fL 35.1-43.9 [facility] Work Phone: Erythrocyte distribution width (RBC) [Ratio] 16.9 % 11.6-14.6 [facility] Work Phone: Immature granulocytes/100 WBC (Bld) 0.400 % 0.0-0.9 [facility] Work Phone: Comment on above: IG% - Immature Granu locytes (promyelocytes, myelocytes and metamyelocytes) > 1% indicates that a LEFT SHIFT is Present. MCH (RBC) [Entitic mass] 31.0 pg 27.0-32.0 [facility] Work Phone: Nucleated RBC/100 WBC (Bld) [Ratio] 0 % 0-5 [facility] Work Phone: MCHC Auto (RBC) [Mass/Vol]on 09-08-2021 MCHC (RBC) [Mass/Vol] 32.7 g/dL 32-36 [facility] Work Phone: Mucus LM Ql (Urine sed)on Mucus Ql (Urine sed) 0 SEEN /hpf [facility] Work Phone: Nitrite Test strip Ql (U)on 09-08-2021 Nitrite Ql (U) Negative Negative [facility] Work Phone: No Panel Informationon 09-08 Estimated Creatinine Clearance Calc 37.46 ml/min [facility] Work Phone: Estimated GFR (MDRD) Amer 61 mL/min >60 [facility] Work Phone: Comment on above: GFR Calc Estimated GFR (MDRD) Non-Af Amer 51 mL/min >60 [facility] Work Phone: Comment on above: Non- GFR Calc Platelets bldon 09-08-2021 Platelets (Bld) [#/Vol] 208 10*3/uL 150-450 [facility] Work Phone: Protein Test strip Ql (U)on 09-08-2021 Protein Ql (U) Negative Negative [facility] Work Phone: Serum or plasma albumin marlin urement (mass/volume)on 09-08-2021 Albumin [Mass/Vol] 3.8 g/dL 3.2-5.0 [facility] Work Phone: Serum or plasma albumin/glob ulin mass ratioon 09-08-2021 Albumin/Globulin [Mass ratio] 1.0 {ratio} 0.9-2.4 [facility] Work Phone: Serum or plasma calcium marlin urement (mass/volume)on 09-08-2021 Calcium [Mass/Vol] 9.5 mg/dL 8.5-10.1 [facility] Work Phone: Serum or plasma creatinine m easurement (mass/volume)on 09-08-2021 Creatinine [Mass/Vol] 1.42 mg/dL 0.70-1.30 [facility] Work Phone: Comment on above: The validity of the calculated GFR & GFRAA in patients over 70 years has not been determined. Clinical correlation is essential. Serum or plasma urea nitroge n measurement (mass/volume)on 09-08-2021 Urea nitrogen [Mass/Vol] 20 mg/dL 7-18 [facility] Work Phone: Squamous epithelial cells de tection in urine sediment by light microscopyon 09-08-2021 Epithelial cells.squamous LM Ql (Urine sed) 0 SEEN /hpf 0-5 [facility] Work Phone: Thin prep Papanicolaou smear with manual screeningon 09-08-2021 Thin prep Papanicolaou smear with manual screening 16 U/L 15-37 [facility] Work Phone: Thin prep Papanicolaou smear with manual screening 4 5-15 [facility] Work Phone: Urine blood detectionon - RBC Ql (U) Negative Negative [facility] Work Phone: RBC Ql (U) 0 SEEN /hpf 0-5 [facility] Work Phone: Urine clarityon 09-08-2021 Clarity (U) Clear Clear [facility] Work Phone: Urine color determinationon 09-08-2021 Color (U) Yellow Yellow [facility] Work Phone: Urine glucose detectionon Glucose Ql (U) Normal mg/dl Normal [facility] Work Phone: Urine leukocyte esterase det ection by dipstickon 09-08-2021 Leukocyte esterase Test strip Ql (U) Negative Negative [facility] Work Phone: Urine pHon 09-08-2021 pH (U) 7.0 [pH] 5.0 - 8.0 [facility] Work Phone: Urine sediment bacteria coun t by microscopy (number/high power field)on 09-08-2021 Bacteria LM.HPF (Urine sed) [#/Area] 0 /[HPF] None Seen [facility] Work Phone: Urine specific gravity measu rementon 09-08-2021 Specific gravity (U) [Rel density] 1.005 1.002-1.03 0 [facility] Work Phone: Urobilinogen Auto test strip Ql (U)on 09-08-2021 Urobilinogen Ql (U) Normal mg/dl Normal [facility] Work Phone: Basophil percentageon 2021 Creatinine [Mass/Vol] 1.2 mg/dL 0.70-1.30 [facility] Work Phone: Laboratory - Chemistry and C hemistry - challengeon 07-22-2021 GFR/1.73 sq M.predicted among non-blacks MDRD (S/P/Bld) [Vol rate/Area] 60.0000 mL/min/{1.73_m2} >60 [facility] Work Phone: Office Visit: pulmonary nodu le and COPDon 02-24-2017 Documentation of current medications (procedure) Done Invalid Interpretation Code [facility] Work Phone: Fall risk assessment No Invalid Interpretation Code [facility] Work Phone: Protein mass conc Done Invalid Interpretation Code [facility] Work Phone: Tobacco smoking status MNIS Current every day smoker Invalid Interpretation Code [facility] Work Phone: Tobacco use CP Current every day smoker Invali d Interpretation Code [facility] Work Phone: Lab Report: CREATININE FINGE RSTICKon 02-14-2017 EGFR WB 47.0000 mL/min Low >60 [facility] Work Phone: Office Visit: CT scanon Documentation of current medications (procedure) Done Invalid Interpretation Code [facility] Work Phone: Fall risk assessment No Invalid Interpretation Code [facility] Work Phone: Protein mass conc Done [facility] Work Phone: Tobacco smoking status MNIS Current every day smoker [facility] Work Phone: Tobacco use CP Current every day smoker Invali d Interpretation Code [facility] Work Phone: Vital Signs Date Time Vital Sign Value Performing Clinician Faci lity 02-19-2025 10:35-0400 Body temperature 97.8 [degF] Dr. Shoshana Ulrich MD Work Phone: [facility] 02-19-2025 10:35-0400 Diastolic blood pressure 65 mm[Hg] Dr. Shoshana Ulrich MD Work Phone: [facility] 02-19-2025 10:35-0400 Heart rate 71 /min Dr. Shoshana Ulrich MD Work Phone: [facility] 02-19-2025 10:35-0400 Respiratory rate 16 /min Dr. Shoshana Ulrich MD Work Phone: [facility] 02-19-2025 10:35-0400 SaO2% (BldA) [Mass fraction] 100 % Dr. Shoshana Ulrich MD Work Phone: [facility] 02-19-2025 10:35-0400 Systolic blood pressure 117 mm[Hg] Dr. Shoshana Ulrich MD Work Phone: [facility] 02-19-2025 08:27-0400 Body height 165.[address] Shoshana Ulrich MD Work Phone: [facility] 02-12-2025 10:37-0400 Body height 165.[address] Shoshana Ulrich MD Work Phone: [facility] 02-12-2025 10:37-0400 Body mass index (BMI) [Ratio] 21.9 kg/m2 Dr. Shoshana Ulrich MD Work Phone: [facility] 02-12-2025 10:37-0400 Body weight 59.[address] Shoshana Ulrich MD Work Phone: [facility] 02-12-2025 10:37-0400 Diastolic blood pressure 72 mm[Hg] Dr. Shoshana Ulrich MD Work Phone: [facility] 02-12-2025 10:37-0400 Heart rate 72 /min Dr. Shoshana Ulrich MD Work Phone: [facility] 02-12-2025 10:37-0400 Respiratory rate 18 /min Dr. Shoshana Ulrich MD Work Phone: [facility] 02-12-2025 10:37-0400 Systolic blood pressure 135 mm[Hg] Dr. Shoshana Ulrich MD Work Phone: [facility] 01-09-2025 10:00-0400 Body temperature 98 [degF] Dr. Shoshana Ulrich MD Work Phone: [facility] 01-09-2025 10:00-0400 Diastolic blood pressure 62 mm[Hg] Dr. Shoshana Ulrich MD Work Phone: [facility] 01-09-2025 10:00-0400 Heart rate 66 /min Dr. Shoshana Ulrich MD Work Phone: [facility] 01-09-2025 10:00-0400 Respiratory rate 16 /min Dr. Shoshana Ulrich MD Work Phone: [facility] 01-09-2025 10:00-0400 SaO2% (BldA) [Mass fraction] 93 % Dr. Shoshana Ulrich MD Work Phone: [facility] 01-09-2025 10:00-0400 Systolic blood pressure 142 mm[Hg] Dr. Shoshana Ulrich MD Work Phone: [facility] 12-14-2024 12:16-0400 Body height 167.6 cm Olga Christianson PA-C Work Phone: [facility] 12-14-2024 12:16-0400 Body mass index (BMI) [Ratio] 22.88 kg/m2 Olga Christianson PA-C Work Phone: [facility] 12-14-2024 12:16-0400 Body weight 64.3 kg Olga Christianson PA-C Work Phone: [facility] 12-14-2024 12:16-0400 Diastolic blood pressure 66 mm[Hg] Olga Christianson PA-C Work Phone: [facility] 12-14-2024 12:16-0400 Heart rate 75 /min Olga Christianson PA-C Work Phone: [facility] 12-14-2024 12:16-0400 SaO2% (BldA) [Mass fraction] 97 % Olga Christianson PA-C Work Phone: [facility] 12-14-2024 12:16-0400 Systolic blood pressure 126 mm[Hg] Olga Christianson PA-C Work Phone: [facility] 11-21-2024 11:40-0400 Body temperature 98 [degF] Dr. Shoshana Ulrich MD Work Phone: [facility] 11-21-2024 11:40-0400 Body weight 65.[address] Shoshana Ulrich MD Work Phone: [facility] 11-21-2024 11:40-0400 Diastolic blood pressure 67 mm[Hg] Dr. Shoshana Ulrich MD Work Phone: [facility] 11-21-2024 11:40-0400 Heart rate 90 /min Dr. Shoshana Ulrich MD Work Phone: [facility] 11-21-2024 11:40-0400 Respiratory rate 16 /min Dr. Shoshana Ulrich MD Work Phone: [facility] 11-21-2024 11:40-0400 SaO2% (BldA) [Mass fraction] 96 % Dr. Shoshana Ulrich MD Work Phone: [facility] 11-21-2024 11:40-0400 Systolic blood pressure 128 mm[Hg] Dr. Shoshana Ulrich MD Work Phone: [facility] 11-06-2024 12:00-0400 Body temperature 97.8 [degF] Dr. Shoshana Ulrich MD Work Phone: [facility] 11-06-2024 12:00-0400 Diastolic blood pressure 67 mm[Hg] Dr. Shoshana Ulrich MD Work Phone: [facility] 11-06-2024 12:00-0400 Heart rate 79 /min Dr. Shoshana Ulrich MD Work Phone: [facility] 11-06-2024 12:00-0400 Respiratory rate 16 /min Dr. Shoshana Ulrich MD Work Phone: [facility] 11-06-2024 12:00-0400 SaO2% (BldA) [Mass fraction] 93 % Dr. Shoshana Ulrich MD Work Phone: 0(403)[phone] [place] [address] 11-06-2024 12:00-0400 Systolic blood pressure 169 mm[Hg] Dr. Shoshana Ulrich MD Work Phone: [facility] 11-05-2024 11:33-0400 Body height 165.[address] Shoshana Ulrich MD Work Phone: [facility] 11-05-2024 11:33-0400 Body mass index (BMI) [Ratio] 24.3 kg/m2 Dr. Shoshana Ulrich MD Work Phone: [facility] 11-05-2024 11:33-0400 Body weight 66.[address] Shoshana Ulrich MD Work Phone: [facility] 11-05-2024 02:20-0400 Inhaled oxygen flow rate 2 L/min Dr. Shoshana Ulrich MD Work Phone: [facility] 11-02-2024 19:15-0400 Body temperature 92 [degF] Dr. Shoshana Ulrich MD Work Phone: [facility] 11-02-2024 19:15-0400 Diastolic blood pressure 74 mm[Hg] Dr. Shoshana Ulrich MD Work Phone: [facility] 11-02-2024 19:15-0400 Heart rate 77 /min Dr. Shoshana Ulrich MD Work Phone: [facility] 11-02-2024 19:15-0400 Respiratory rate 17 /min Dr. Shoshana Ulrich MD Work Phone: [facility] 11-02-2024 19:15-0400 SaO2% (BldA) [Mass fraction] 98 % Dr. Shoshana Ulrich MD Work Phone: [phone])[phone] [place] [address] 11-02-2024 19:15-0400 Systolic blood pressure 139 mm[Hg] Dr. Shoshana Ulrich MD Work Phone: 1(561)829-395370 [place] [address] 11-02-2024 14:03-0400 Body mass index (BMI) [Ratio] 22.1 kg/m2 Dr. Shoshana Ulrich MD Work Phone: 2(857)[phone] [place] [address] 11-02-2024 14:03-0400 Body weight [address] Shoshana Ulrich MD Work Phone: [facility] 11-02-2024 14:01-0400 Body height 172.[address] Shoshana Ulrich MD Work Phone: 8(298)[phone] [place] [address] 07-13-2024 12:57-0500 Body height 172.[address] Shoshana Ulrich MD Work Phone: [facility] 07-13-2024 12:57-0500 Body mass index (BMI) [Ratio] 23.2 kg/m2 Dr. Shoshana Ulrich MD Work Phone: [facility] 07-13-2024 12:57-0500 Body temperature 97.8 [degF] Dr. Shoshana Ulrich MD Work Phone: [facility] 07-13-2024 12:57-0500 Body weight 69.[address] Shoshana Ulrich MD Work Phone: [facility] 07-13-2024 12:57-0500 Diastolic blood pressure 74 mm[Hg] Dr. Shoshana Ulrich MD Work Phone: [facility] 07-13-2024 12:57-0500 Heart rate 68 /min Dr. Shoshana Ulrich MD Work Phone: [facility] 07-13-2024 12:57-0500 Respiratory rate 16 /min Dr. Shoshana Ulrich MD Work Phone: [facility] 07-13-2024 12:57-0500 SaO2% (BldA) [Mass fraction] 96 % Dr. Shoshana Ulrich MD Work Phone: 1(259)[phone] [place] [address] 07-13-2024 12:57-0500 Systolic blood pressure 130 mm[Hg] Dr. Shoshana Ulrich MD Work Phone: [facility] 06-26-2024 16:19-0500 Body temperature 97.8 [degF] Dr. Shoshana Ulrich MD Work Phone: [facility] 06-26-2024 16:19-0500 Body weight 69.[address] Shoshana Ulrich MD Work Phone: [facility] 06-26-2024 16:19-0500 Diastolic blood pressure 71 mm[Hg] Dr. Shoshana Ulrich MD Work Phone: [facility] 06-26-2024 16:19-0500 Heart rate 76 /min Dr. Shoshana Ulrich MD Work Phone: [facility] 06-26-2024 16:19-0500 Respiratory rate 16 /min Dr. Shoshana Ulrich MD Work Phone: [facility] 06-26-2024 16:19-0500 SaO2% (BldA) [Mass fraction] 94 % Dr. Shoshana Ulrich MD Work Phone: [facility] 06-26-2024 16:19-0500 Systolic blood pressure 144 mm[Hg] Dr. Shoshana Ulrich MD Work Phone: [facility] 06-20-2024 19:30-0500 Body temperature 98.1 [degF] Dr. Shoshana Ulrich MD Work Phone: [facility] 06-20-2024 19:30-0500 Diastolic blood pressure 78 mm[Hg] Dr. Shoshana Ulrich MD Work Phone: [facility] 06-20-2024 19:30-0500 Heart rate 82 /min Dr. Shoshana Ulrich MD Work Phone: [facility] 06-20-2024 19:30-0500 Respiratory rate 16 /min Dr. Shoshana Ulrich MD Work Phone: [facility] 06-20-2024 19:30-0500 SaO2% (BldA) [Mass fraction] 98 % Dr. Shoshana Ulrich MD Work Phone: [facility] 06-20-2024 19:30-0500 Systolic blood pressure 140 mm[Hg] Dr. Shoshana Ulrich MD Work Phone: [facility] 06-20-2024 16:05-0500 Body mass index (BMI) [Ratio] 23.2 kg/m2 Dr. Shoshana Ulrich MD Work Phone: [facility] 06-20-2024 16:05-0500 Body weight 69.[address] Sohshana Ulrich MD Work Phone: [facility] 05-26-2024 13:22-0500 Body temperature 98 [degF] Dr. Shoshana Ulrich MD Work Phone: [facility] 05-26-2024 13:22-0500 Diastolic blood pressure 80 mm[Hg] Dr. Shoshana Ulrich MD Work Phone: [facility] 05-26-2024 13:22-0500 Heart rate 85 /min Dr. Shoshana Ulrich MD Work Phone: [facility] 05-26-2024 13:22-0500 Respiratory rate 18 /min Dr. Shoshana Ulrich MD Work Phone: [facility] 05-26-2024 13:22-0500 SaO2% (BldA) [Mass fraction] 99 % Dr. Shoshana Ulrich MD Work Phone: [facility] 05-26-2024 13:22-0500 Systolic blood pressure 140 mm[Hg] Dr. Shoshana Ulrich MD Work Phone: [facility] 05-26-2024 11:52-0500 Body mass index (BMI) [Ratio] 23.1 kg/m2 Dr. Shoshana Ulrich MD Work Phone: [facility] 05-26-2024 11:52-0500 Body weight 68.[address] Shoshana Ulrich MD Work Phone: [facility] 09-21-2023 14:38-0400 Diastolic blood pressure 64 mm[Hg] Dr. Shoshana Ulrich Work Phone: [facility] 09-21-2023 14:38-0400 Heart rate 84 /min Dr. Shoshana Ulrich Work Phone: [facility] 09-21-2023 14:38-0400 Respiratory rate 18 /min Dr. Shoshana Ulrich Work Phone: [facility] 09-21-2023 14:38-0400 SaO2% (BldA) [Mass fraction] 95 % Dr. Shoshana Ulrich Work Phone: [facility] 09-21-2023 14:38-0400 Systolic blood pressure 113 mm[Hg] Dr. Shoshana Ulrich Work Phone: [facility] 09-21-2023 08:42-0400 Body temperature 98.3 [degF] Dr. Shoshana Ulrich Work Phone: [facility] 09-21-2023 06:00-0400 Body mass index (BMI) [Ratio] 22.7 kg/m2 Dr. Shoshana Ulrich Work Phone: [facility] 09-21-2023 06:00-0400 Body weight 68.[address] Shoshana Ulrich Work Phone: [facility] 09-20-2023 13:02-0400 Body height 172.[address] Shoshana Ulrich Work Phone: [facility] 09-19-2023 13:05-0400 Body temperature 98.2 [degF] Dr. Shoshana Ulrich Work Phone: [facility] 09-19-2023 13:05-0400 Diastolic blood pressure 84 mm[Hg] Dr. Shoshana Ulrich Work Phone: [facility] 09-19-2023 13:05-0400 Heart rate 76 /min Dr. Shoshana Ulrich Work Phone: [facility] 09-19-2023 13:05-0400 Respiratory rate 15 /min Dr. Shoshana Ulrich Work Phone: [facility] 09-19-2023 13:05-0400 SaO2% (BldA) [Mass fraction] 98 % Dr. Shoshana Ulrich Work Phone: [facility] 09-19-2023 13:05-0400 Systolic blood pressure 132 mm[Hg] Dr. Shoshana Ulrich Work Phone: [facility] 09-19-2023 08:25-0400 Body height 172.[address] Shoshana Ulrich Work Phone: [facility] 09-19-2023 08:25-0400 Body mass index (BMI) [Ratio] 22 kg/m2 Dr. Shoshana Ulrich Work Phone: [facility] 09-19-2023 08:25-0400 Body weight 65.[address] Shoshana Ulrich Work Phone: [facility] 07-21-2023 12:36-0500 Diastolic blood pressure 72 mm[Hg] [facility] 07-21-2023 12:36-0500 Heart rate 75 /min [facility] 07-21-2023 12:36-0500 Respiratory rate 18 /min [facility] 07-21-2023 12:36-0500 SaO2% (BldA) [Mass fraction] 98 % [facility] 07-21-2023 12:36-0500 Systolic blood pressure 127 mm[Hg] [facility] 07-21-2023 08:18-0500 Body height 172.72 cm [facility] 07-21-2023 08:18-0500 Body mass index (BMI) [Ratio] 23.8 kg/m2 [facility] 07-21-2023 08:18-0500 Body temperature 98.3 [degF] [facility] 07-21-2023 08:18-0500 Body weight 70.9 kg [facility] 11-04-2022 13:31-0400 Body temperature 97.7 [degF] Dr. Shoshana Ulrich Work Phone: [facility] 11-04-2022 13:31-0400 Diastolic blood pressure 75 mm[Hg] Dr. Shoshana Ulrich Work Phone: [facility] 11-04-2022 13:31-0400 Heart rate 65 /min Dr. Shoshana Ulrich Work Phone: [facility] 11-04-2022 13:31-0400 Respiratory rate 18 /min Dr. Shoshana Ulrich Work Phone: [facility] 11-04-2022 13:31-0400 SaO2% (BldA) [Mass fraction] 94 % Dr. Shoshana Ulrich Work Phone: [facility] 11-04-2022 13:31-0400 Systolic blood pressure 139 mm[Hg] Dr. Shoshana Ulrich Work Phone: [facility] 11-04-2022 06:53-0400 Inhaled oxygen flow rate 2 L/min Dr. Shoshana Ulrich Work Phone: [facility] 11-03-2022 09:18-0400 Body height 172.[address] Shoshana Ulrich Work Phone: [facility] 11-03-2022 09:18-0400 Body mass index (BMI) [Ratio] 23.1 kg/m2 Dr. Shoshana Ulrich Work Phone: [facility] 11-03-2022 09:18-0400 Body weight 68.[address] Shoshana Ulrich Work Phone: [facility] 10-07-2022 08:03-0400 Body height 172.[address] Shoshana Ulrich Work Phone: [facility] 10-07-2022 08:03-0400 Body mass index (BMI) [Ratio] 25 kg/m2 Dr. Shoshana Ulrich Work Phone: [facility] 10-07-2022 08:03-0400 Body temperature 97.9 [degF] Dr. Shoshana Ulrich Work Phone: [facility] 10-07-2022 08:03-0400 Body weight 74.[address] Shoshana Ulrich Work Phone: [facility] 10-07-2022 08:03-0400 Diastolic blood pressure 96 mm[Hg] Dr. Shoshana Ulrich Work Phone: [facility] 10-07-2022 08:03-0400 Heart rate 80 /min Dr. Shoshana Ulrich Work Phone: [facility] 10-07-2022 08:03-0400 Respiratory rate 14 /min Dr. Shoshana Ulrich Work Phone: [facility] 10-07-2022 08:03-0400 SaO2% (BldA) [Mass fraction] 94 % Dr. Shoshana Ulrich Work Phone: [facility] 10-07-2022 08:03-0400 Systolic blood pressure 164 mm[Hg] Dr. Shoshana Ulrich Work Phone: [facility] 07-02-2022 08:10-0500 Body mass index (BMI) [Ratio] 24.7 kg/m2 Dr. Shoshana Ulrich Work Phone: [facility] 07-02-2022 08:10-0500 Body temperature 98.4 [degF] Dr. Shoshana Ulrich Work Phone: [facility] 07-02-2022 08:10-0500 Body weight 73.[address] Shoshana Ulrich Work Phone: [facility] 07-02-2022 08:10-0500 Diastolic blood pressure 88 mm[Hg] Dr. Shoshana Ulrich Work Phone: [facility] 07-02-2022 08:10-0500 Heart rate 99 /min Dr. Shoshana Ulrich Work Phone: [facility] 07-02-2022 08:10-0500 Respiratory rate 16 /min Dr. Shoshana Ulrich Work Phone: [facility] 07-02-2022 08:10-0500 SaO2% (BldA) [Mass fraction] 92 % Dr. Shoshana Ulrich Work Phone: [facility] 07-02-2022 08:10-0500 Systolic blood pressure 152 mm[Hg] Dr. Shoshana Ulrich Work Phone: [facility] 04-09-2022 12:06-0500 Body height 172.72 cm [facility] 04-09-2022 12:06-0500 Body mass index (BMI) [Ratio] 25 kg/m2 [facility] 04-09-2022 12:06-0500 Body temperature 98.4 [degF] [facility] 04-09-2022 12:06-0500 Body weight 74.84 kg [facility] 04-09-2022 12:06-0500 Diastolic blood pressure 79 mm[Hg] [facility] 04-09-2022 12:06-0500 Heart rate 89 /min [facility] 04-09-2022 12:06-0500 Respiratory rate 18 /min [facility] 04-09-2022 12:06-0500 SaO2% (BldA) [Mass fraction] 99 % [facility] 04-09-2022 12:06-0500 Systolic blood pressure 108 mm[Hg] [facility] 04-05-2022 14:41-0500 Body temperature 97.8 [degF] [facility] 04-05-2022 14:41-0500 Diastolic blood pressure 74 mm[Hg] [facility] 04-05-2022 14:41-0500 Heart rate 82 /min [facility] 04-05-2022 14:41-0500 Respiratory rate 15 /min [facility] 04-05-2022 14:41-0500 SaO2% (BldA) [Mass fraction] 95 % [facility] 04-05-2022 14:41-0500 Systolic blood pressure 121 mm[Hg] [facility] 04-05-2022 09:02-0500 Body mass index (BMI) [Ratio] 25 kg/m2 [facility] 04-05-2022 09:02-0500 Body weight 74.6 kg [facility] 09-08-2021 13:35-0400 Diastolic blood pressure 83 mm[Hg] Dr. Shoshana Ulrich Work Phone: [facility] Work Phone: 09-08-2021 13:35-0400 Heart rate 85 /min Dr. Shoshana Ulrich Work Phone: [facility] Work Phone: 09-08-2021 13:35-0400 Respiratory rate 15 /min Dr. Shoshana Ulrich Work Phone: [facility] Work Phone: 09-08-2021 13:35-0400 SaO2% (BldA) [Mass fraction] 99 % Dr. Shoshana Ulrich Work Phone: [facility] Work Phone: 09-08-2021 13:35-0400 Systolic blood pressure 135 mm[Hg] Dr. Shoshana Ulrich Work Phone: [facility] Work Phone: 09-08-2021 10:06-0400 Body height 173.[address] Shoshana Ulrich Work Phone: [facility] Work Phone: 09-08-2021 10:06-0400 Body mass index (BMI) [Ratio] 23.9 kg/m2 Dr. Shoshana Ulrich Work Phone: [facility] Work Phone: 09-08-2021 10:06-0400 Body temperature 97.2 [degF] Dr. Shoshana Ulrich Work Phone: [facility] Work Phone: 09-08-2021 10:06-0400 Body weight 72.[address] Shoshana Ulrich Work Phone: [facility] Work Phone: 09-01-2021 13:17-0400 Body height 172.[address] Shoshnaa Ulrich Work Phone: [facility] Work Phone: 09-01-2021 13:17-0400 Body weight 74.[address] Shoshana Ulrich Work Phone: [facility] Work Phone: 09-01-2021 13:17-0400 Heart rate 91 /min Dr. Shoshana Ulrich Work Phone: [facility] Work Phone: 09-01-2021 13:17-0400 SaO2% (BldA) [Mass fraction] 93 % Dr. Shoshana Ulrich Work Phone: [facility] Work Phone: 07-14-2021 10:04-0500 Body mass index (BMI) [Ratio] 24.4 kg/m2 Dr. Shoshana Ulrich Work Phone: [facility] Work Phone: 07-14-2021 10:04-0500 Body temperature 97.6 [degF] Dr. Shoshana Ulrich Work Phone: [facility] Work Phone: 07-14-2021 10:04-0500 Diastolic blood pressure 65 mm[Hg] Dr. Shoshana Ulrich Work Phone: [facility] Work Phone: 07-14-2021 10:04-0500 Heart rate 92 /min Dr. Shoshana Ulrich Work Phone: [facility] Work Phone: 07-14-2021 10:04-0500 Respiratory rate 18 /min Dr. Shoshana Ulrich Work Phone: [facility] Work Phone: 07-14-2021 10:04-0500 Systolic blood pressure 131 mm[Hg] Dr. Shoshana Ulrich Work Phone: [facility] Work Phone: 07-14-2021 09:04-0500 Body mass index (BMI) [Ratio] 24.4 kg/m2 Dr. Shoshana Ulrich Work Phone: [facility] Work Phone: 07-14-2021 09:04-0500 Body temperature 97.6 [degF] Dr. Shoshana Ulrich Work Phone: [facility] Work Phone: 07-14-2021 09:04-0500 Diastolic blood pressure 65 mm[Hg] Dr. Shoshana Ulrich Work Phone: [facility] Work Phone: 07-14-2021 09:04-0500 Heart rate 92 /min Dr. Shoshana Ulrich Work Phone: [facility] Work Phone: 07-14-2021 09:04-0500 Respiratory rate 18 /min Dr. Shoshana Ulrich Work Phone: [facility] Work Phone: 07-14-2021 09:04-0500 Systolic blood pressure 131 mm[Hg] Dr. Shoshana Ulrich Work Phone: [facility] Work Phone: 07-14-2021 00:14-0500 Body weight 72.[address] Shoshana Ulrich Work Phone: [facility] Work Phone: 07-13-2021 23:14-0500 Body weight 72.[address] Shoshana Ulrich Work Phone: [facility] Work Phone: 06-30-2021 09:25-0500 Body mass index (BMI) [Ratio] 24.4 kg/m2 Dr. Shoshana Ulrich Work Phone: [facility] Work Phone: 06-30-2021 09:25-0500 Body temperature 97.3 [degF] Dr. Shoshana Ulrich Work Phone: [facility] Work Phone: 06-30-2021 09:25-0500 Diastolic blood pressure 76 mm[Hg] Dr. Shoshana Ulrich Work Phone: [facility] Work Phone: 06-30-2021 09:25-0500 Heart rate 83 /min Dr. Shoshana Ulrich Work Phone: [facility] Work Phone: 06-30-2021 09:25-0500 Respiratory rate 18 /min Dr. Shoshana Ulrich Work Phone: [facility] Work Phone: 06-30-2021 09:25-0500 Systolic blood pressure 156 mm[Hg] Dr. Shoshana Ulrich Work Phone: [facility] Work Phone: 06-15-2021 23:09-0500 Body weight 72.[address] Shoshana Ulrich Work Phone: [facility] Work Phone: 06-09-2021 09:36-0500 Body mass index (BMI) [Ratio] 24.4 kg/m2 Dr. Shoshana Ulrich Work Phone: [facility] Work Phone: 06-09-2021 09:36-0500 Body temperature 96.6 [degF] Dr. Shoshana Ulrich Work Phone: [facility] Work Phone: 06-09-2021 09:36-0500 Diastolic blood pressure 64 mm[Hg] Dr. Shoshana Ulrich Work Phone: [facility] Work Phone: 06-09-2021 09:36-0500 Heart rate 86 /min Dr. Shoshana Ulrich Work Phone: [facility] Work Phone: 06-09-2021 09:36-0500 Respiratory rate 18 /min Dr. Shoshana Ulrich Work Phone: [facility] Work Phone: 06-09-2021 09:36-0500 Systolic blood pressure 113 mm[Hg] Dr. Shoshana Ulrich Work Phone: [facility] Work Phone: 05-26-2021 09:21-0500 Body weight 72.[address] Shoshana Ulrich Work Phone: [facility] Work Phone: 02-24-2017 06:22-0400 BMI (Body Mass Index) 26.15 kg/m2 Sheila Malloy [facility] Work Phone: 02-24-2017 06:22-0400 Body Temperature 98 [degF] Sheila Malloy [facility] Work Phone: 02-24-2017 06:22-0400 BP Diastolic 80 mm[Hg] Sheila Malloy [facility] Work Phone: 02-24-2017 06:22-0400 BP Systolic 163 mm[Hg] Sheila Gama [facility] Work Phone: 02-24-2017 06:22-0400 Height 172.72 cm Sheila Gama [facility] Work Phone: 02-24-2017 06:22-0400 Pulse (Heart Rate) 73 /min Sheila Malloy [facility] Work Phone: 02-24-2017 06:22-0400 Respiratory Rate 18 /min Sheila Malloy [facility] Work Phone: 02-24-2017 06:22-0400 Weight 78.02 kg Sheila Malloy [facility] Work Phone: 11-15-2016 10:01-0400 BMI (Body Mass Index) 25.69 kg/m2 Geetha Yensho [employer] [facility] Work Phone: 11-15-2016 10:01-0400 Body Temperature 97.3 [degF] Geetha Yensho [employer] [facility] Work Phone: 11-15-2016 10:01-0400 BP Diastolic 71 mm[Hg] Geetha Yensho [employer] [facility] Work Phone: 11-15-2016 10:01-0400 BP Systolic 106 mm[Hg] Geetha Yensho [employer] [facility] Work Phone: 11-15-2016 10:01-0400 Height 172.72 cm Geetha Yensho [employer] [facility] Work Phone: 11-15-2016 10:01-0400 Pulse (Heart Rate) 98 /min Geetha Yensho [employer] [facility] Work Phone: 11-15-2016 10:01-0400 Respiratory Rate 18 /min Geetha Yensho [employer] [facility] Work Phone: 11-15-2016 10:01-0400 Weight 76.66 kg Geetha Yensho [employer] [facility] Phone: Encounters Encounter Date Encounter Type Care Provider Facility Start: 03-08-2025 ambulatory Blastaryn Arellano Facility:[facility] Start: 03-01-2025 ambulatory Sai Washington y:[facility] Start: 02-21-2025 End: 02-21-2025 Emergency department patient visit Chito Werner Facility:[facility] Start: 02-19-2025 End: 02-19-2025 Emergency department patient visit Dr. Shoshana Ulrich MD Work Phone: -Emergency Department Work Phone: Start: 02-12-2025 Encounter for preprocedural cardiovascular examination Blas Adan [facility] Start: 02-12-2025 End: 02-12-[address] Blas Arellano MD -[facility] Work Phone: Start: 02-12-2025 End: 02-12-[address] Blas Arellano MD [facility] Start: 02-12-2025 End: 02-12-[address] Shoshana Ulrich MD Work Phone: -[facility] Start: 02-06-2025 ambulatory Shoshana Ulrich Facility: [facility] Start: 01-24-2025 End: 01-24-[address] [facility] Start: 01-24-2025 End: 01-24-[address] Shoshana Ulrich MD -Laboratory [facility] Start: 01-24-2025 End: 01-24-2025 ambulatory Shoshana [facility] Facility:[facility] Start: 01-11-2025 ambulatory Sam Foster [facility] Start: 01-09-2025 End: 01-09-2025 Patient encounter procedure Eduardo Reno PA -[facility] Work Phone: Start: 01-09-2025 End: 01-09-[address] Shoshana Ulrich MD Work Phone: -[facility] Start: 12-19-2024 Non-patient / Non-visit Dr. Santana jolly MD -[facility] Start: 12-19-2024 End: 12-19-[address] Shoshana Ulrich MD Work Phone: -Cardiovascular Services Start: 12-19-2024 End: 12-19-2024 Patient encounter procedure Kristen WALKER -[facility] Work Phone: Start: 12-19-2024 End: 12-19-2024 ambulatory Kristen Amaya Facility:[facility] Start: 12-14-2024 End: 12-14-2024 Patient encounter procedure Olga Christianson PA-C Work Phone: [facility] Comment on above: Neoplasm of unspecif ied behavior of bone, soft tissue, and skin (Primary Dx); Perineal numbness Start: 12-14-2024 End: 12-14-2024 ambulatory OLGA CHRISTIANSON Facility:[facility] Start: 11-21-2024 End: 11-21-2024 Patient encounter procedure Kristen WALKER -[facility] Work Phone: Start: 11-21-2024 End: 11-21-[address] Shoshana Ulrich MD Work Phone: -[facility] Start: 11-14-2024 End: 11-14-2024 Telephone encounter Neurology Provider Neurology Comment on above: Appointment (Patient scheduled incorrectly as advised per provider- he advised should be with Neuromuscular. ) Start: 11-12-2024 End: 11-12-[address] Shoshana Ulrich MD Work Phone: -Laboratory Danni Thompson [place] Start: 11-12-2024 End: 11-12-2024 Patient encounter procedure Alyce ESPITIAC -Laboratory [facility]ak[facility] [place] Start: 11-12-2024 End: 11-12-2024 ambulatory Shoshana Ulrich Facility:[facility] Start: 11-06-2024 Non-patient / [facility] Work Phone: Start: 11-05-2024 Non-patient / [facility] Work Phone: Start: 11-05-2024 Non-patient / Non-visit Dr. Santana jolly MD -[facility] Start: 11-05-2024 End: 11-05-2024 [facility] Start: 11-05-2024 End: 11-05-2024 Non-patient / Non-visit Dr. Blas Arellano MD -[facility] Work Phone: Start: 11-04-2024 Non-patient / Non-visit Dr. Ethan Neal [facility] Work Phone: Start: 11-04-2024 ambulatory Santana Mason Facility:[facility] Start: 11-04-2024 Non-patient / Non-visit Dr. Satnana jolly MD -[facility] Start: 11-03-2024 ambulatory Raghav Serrano [facility] ility:[facility] Start: 11-03-2024 End: 11-06-2024 Evaluation and management of inpatient [facility] Work Phone: Start: 11-03-2024 Non-patient / Non-visit Dr. Rylie ledbetter MD -[place] [facility] Work Phone: Start: 11-02-2024 Non-patient / Non-visit Dr. Dee [facility] Work Phone: Start: 11-02-2024 ambulatory Raghav Serrano [facility] ility:[facility] Start: 11-02-2024 Evaluation and manag ement of inpatient Dr. Raghav Serrano [facility] 3 Work Phone: Start: 11-02-[address] Dario Ulrich MD Work Phone: [facility] Work Phone: Start: 07-24-2024 End: 07-24-[address] Shoshana Ulrich MD Work Phone: [facility] Work Phone: Start: 07-24-2024 End: 07-24-[address] Shoshana Ulrich MD -[facility] Start: 07-24-2024 End: 07-24-2024 ambulatory Shoshana Ulrich Facility:[facility] Start: 07-13-2024 End: 07-13-[address] Jose Figueroa MD -[facility] Work Phone: Start: 07-13-2024 End: 07-13-2024 ambulatory [facility] Facility:[facility] Start: 06-26-2024 End: 06-26-2024 Patient encounter procedure Kristen Amaya PA -[facility] Work Phone: Start: 06-26-2024 End: 06-26-2024 ambulatory Kristen Amaya Facility:[facility] Start: 06-20-2024 End: 06-20-2024 Emergency department patient visit Dr. Marco Antonio Erwin-Charanjit DO -Emergency Department Work Phone: Start: 06-20-2024 ambulatory [facility] Facility: [facility] Start: 06-20-2024 Non-patient / Non-visit Dr. Santana jolly MD -[facility] Start: 06-20-2024 End: 06-20-[address] Sai Salazar [facility] -Cardiovascular Services Work Phone: Start: 06-20-2024 End: 06-20-2024 ambulatory [facility] Facility:[facility] Start: 05-26-2024 End: 05-26-2024 Emergency department patient visit Dr. Santana Sandoval DO -Emergency Department Work Phone: Start: 04-17-2024 End: 04-17-[address] Shoshana Ulrich MD -Laboratory, [facility] Start: 04-17-2024 End: 04-17-2024 ambulatory [facility] Facility:[facility] Start: 09-21-2023 Non-patient / Non-visit Dr. Paul Ulrich Work Phone: [facility] Work Phone: Start: 09-20-2023 Non-patient / Non-visit Dr. Paul Ulrich Work Phone: [facility] Start: 09-20-2023 Non-patient / Non-visit Dr. Paul Ulrich Work Phone: [facility] Work Phone: Start: 09-19-2023 Non-patient / Non-visit Dr. Paul Ulrich Work Phone: [facility] Start: 09-19-2023 End: 09-21-2023 Evaluation and management of inpatient Dr. Shoshana Ulrich Work Phone: [facility]-Medical Surgical 3 Work Phone: Start: 09-05-2023 End: 09-05-[address] Shoshana Ulrich Work Phone: [facility] Work Phone: Start: 09-05-2023 End: 09-05-[address] Shoshana Ulrich Work Phone: [facility]-Physical Therapy Work Phone: Start: 08-11-2023 End: 08-11-2023 Non-patient / Non-visit Dr. Shoshana Ulrich Work Phone: [facility] Work Phone: Start: 08-11-2023 End: 08-11-[address] Shoshana Ulrich Work Phone: [facility] Work Phone: Start: 08-11-2023 End: 08-11-[address] Shoshana Ulrich Work Phone: [facility]-Pulmonary Services/Neurology Work Phone: Start: 08-09-[address] Cecilia Ulrich Work Phone: [facility]-Physical Therapy Work Phone: Start: 07-21-2023 End: 07-21-2023 Emergency department patient visit [facility]-Emergency Department Work Phone: Start: 06-13-2023 End: 06-13-2023 ambulatory [facility] Work Phone: Start: 06-13-2023 End: 06-13-2023 Patient encounter procedure [facility]-MRI - [facility] Work Phone: Start: 04-06-2023 End: 04-06-2023 ambulatory [facility] Work Phone: Start: 04-06-2023 End: 04-06-2023 Patient encounter procedure [facility]-Radiology, [facility] Work Phone: Start: 12-10-2022 End: 12-10-[address] Shoshana Ulrich Work Phone: [facility] Work Phone: Start: 12-10-2022 End: 12-10-[address] Shoshana Ulrich Work Phone: [facility]-Laboratory Work Phone: Start: 11-03-2022 End: 11-04-2022 Evaluation and management of inpatient Dr. Shoshana Ulrich Work Phone: [facility]-Medical Surgical 3 Start: 11-03-2022 End: 11-04-[address] Shoshana Ulrich Work Phone: [facility] Work Phone: Start: 10-22-2022 Non-patient / Non-visit Dr. Paul Ulrich Work Phone: [facility] Start: 10-22-2022 End: 10-22-[address] Shoshana Ulrich Work Phone: [facility] Work Phone: Start: 10-22-2022 End: 10-22-[address] Shoshana Ulrich Work Phone: [facility]-Cardiovascul ar Services Start: 10-07-2022 Non-patient / Non-visit Dr. Paul Ulrich Work Phone: [facility] Start: 10-07-2022 End: 10-07-2022 Emergency department patient visit Dr. Shoshana Ulrich Work Phone: [facility]-Emergency Department Start: 07-23-2022 End: 07-23-[address] Shoshana Ulrich Work Phone: [facility] Work Phone: Start: 07-23-2022 End: 07-23-[address] Shoshana Ulrich Work Phone: [facility]-Laboratory, Specimen Start: 07-12-2022 End: 07-12-2022 Non-patient / Non-visit Dr. Shoshana Ulrich Work Phone: [facility] Start: 07-12-2022 End: 07-12-[address] Shoshana Ulrich Work Phone: [facility] Work Phone: Start: 07-12-2022 End: 07-12-[address] Shoshana Ulrich Work Phone: [facility]-Pulmonary Services/Neurology Start: 07-02-2022 End: 07-02-[address] Shoshana Ulrich Work Phone: [facility] Start: 04-09-2022 End: 04-09-2022 Emergency department patient visit [facility]-Emergency Department Start: 04-05-2022 End: 04-05-2022 Admission to same day surgery center [facility]-Surgical Day Care Start: 11-05-2021 End: 11-05-[address] Shoshana Ulrich Work Phone: [facility] Start: 09-08-2021 End: 09-08-2021 Emergency department patient visit Dr. Shoshana Ulrich Work Phone: [facility]-Emergency Department Start: 09-02-2021 Non-patient / Non-visit Dr. Paul Ulrich Work Phone: [facility] Start: 09-01-2021 End: 09-01-[address] [facility] Start: 08-27-2021 Non-patient / Non-visit Dr. Paul Ulrich Work Phone: [facility] Start: 08-27-2021 End: 08-27-[address] Shosh[facility] Ul[facility] Start: 07-22-2021 End: 07-22-[address] Shoshana Ulrich Work Phone: [facility] Start: 07-14-2021 End: 07-15-[address] Shosh[facility] Ulrich [facility] Start: 06-30-2021 End: 07-13-[address] Shoshana Ulrich Work Phone: [facility] Start: 06-09-2021 End: 06-15-[address] Shoshana Ulrich Work Phone: [facility] Procedures Date Procedure Procedure Detail Performing Clinician Start: 02-19-2025 Plain chest X-ray Dr. Alka Ulrich MD Work Phone: Start: 11-04-[address] Shoshana Ulrich MD Work Phone: Start: 11-02-2024 Urnls dip stick/tabl et reagent auto microscopy Dr. Shoshana Ulrich MD Work Phone: Start: 11-02-2024 Computed tomography of abdomen and pelvis with intravenous contrast Dr. Shoshana Ulrich MD Work Phone: Start: 11-02-[address] Shoshana Ulrich MD Work Phone: Start: 07-24-2024 Total iron binding c apacity measurement Dr. Shoshana Ulrich MD Work Phone: Start: 05-26-2024 Plain X-ray of shoulder Dr. Shoshana Ulrich MD Work Phone: Start: 09-20-[address] Shoshana Ulrich Work Phone: Start: 09-19-[address] e detection [address] Shoshana Ulrihc Work Phone: Start: 09-19-[address] [...] Treatment Date Care Activity Detail Author Start: 02-19-2025 [facility] Start: 02-12-2025 End: 02-12-2025 Evaluation of diagnostic study results [facility] Start: 02-12-2025 End: 02-12-2025 Patient encounter procedure Abnormal ECG -[place] [facility] Work Phone: Start: 01-14-2025 Influenza vaccination Influenza Vacc ine (#1) [facility] Start: 11-23-2024 End: 11-23-2024 Patient encounter procedure 11/23/2024 3:40 PM EDT Office Visit Neurology [address] [place] [id number] [address] Escobedo Jr., MD [address] [place] [address] paresthesia of skin; spondylosis w/o myelopathy or radiculopathy, lumbosacral region Neurology Comment on above: paresthesia of skin; spondylosis w/o myelopathy or radiculopathy, lumbosacral region Start: 11-06-2024 Patient discharge [facility] Start: 11-05-2024 Partial thromboplast in time, activated [facility] Start: 11-05-2024 Dietary regime [facility] Start: 11-05-[address] [facility] Start: 11-05-2024 Provision of activit y privileges [facility] Start: 11-05-2024 End: 11-05-2024 [facility] Start: 11-05-2024 Cardiac monitoring [facility] Start: 11-05-2024 Notification of physician [facility] Start: 11-05-[address] [facility] Start: 11-04-2024 Referral to vascular surgeon [facility] Start: 11-03-2024 Admission procedure [facility] Start: 11-03-2024 Complete blood count [facility] Start: 11-02-2024 Following clinical pathway protocol [facility] Start: 11-02-2024 Ambulation without limitation [facility] Start: 11-02-2024 Assessment of risk o f venous thromboembolism [facility] Start: 11-02-2024 Incentive spirometry [facility] Start: 11-02-2024 Insertion of cathete r into peripheral vein [facility] Start: 11-02-2024 Oxygen therapy [facility] Start: 11-02-2024 Providing care accor ding to standard [facility] Start: 11-02-2024 [facility] Start: 11-02-2024 Verification routine [facility] Start: 11-02-2024 Admission procedure [facility] Start: 11-02-2024 Patient referral to dietitian [facility] Start: 07-13-2024 Patient referral [facility] Work Phone: Start: 06-20-2024 [facility] Start: 05-26-2024 [facility] Start: 05-16-2024 Advance Directive Discussion Advance Directive Discussion [facility] Start: 05-16-2024 Medicare Advantage A nnual Wellness Visit Medicare Advantage Annual Wellness Visit [facility] Start: 01-15-2024 Covid-19 Vaccine ( season) Covid-19 Vaccine ( season) [facility] Start: 09-21-2023 Patient discharge [facility] Start: 09-20-2023 Application of intermittent pneumatic compression device [facility] Start: 09-20-2023 Administration of bl ood product [facility] Start: 09-20-2023 Transfusion of blood product [facility] Start: 09-20-2023 Inhalation therapy procedure [facility] Start: 09-19-2023 End: 09-19-2023 [facility] Start: 09-19-2023 Following clinical pathway protocol [facility] Start: 09-19-2023 Transfusion of blood product [facility] Start: 09-19-2023 Enteric Bacteriology Enteric Bacteri ology [facility] Start: 09-19-2023 Ova and Parasites Ova and Parasites [facility] Start: 09-19-2023 Assessment of risk o f venous thromboembolism [facility] Start: 09-19-2023 Documentation procedure [facility] Start: 09-19-2023 Insertion of cathete r into peripheral vein [facility] Start: 09-19-2023 Providing care accor ding to standard [facility] Start: 09-19-2023 Provision of activit y privileges [facility] Start: 09-19-2023 Referral to gastroenterology service [facility] Start: 09-19-2023 Referral to occupati onal therapist [facility] Start: 09-19-2023 Referral to service [facility] Start: 09-19-2023 [facility] Start: 09-19-2023 Hospital admission, emergency, from emergency room, medical nature [facility] Start: 09-19-2023 Admission procedure [facility] Start: 09-19-2023 Enteric precautions [facility] Start: 07-21-2023 [facility] Start: 11-04-2022 Oxygen therapy [facility] Start: 11-04-2022 Patient discharge [facility] Start: 11-04-2022 Removal of urinary catheter [facility] Start: 11-03-2022 Following clinical pathway protocol [facility] Start: 11-03-2022 Anesthesia transuret hral resection of prostate ANESTH REMOVAL OF PROSTATE [facility] Start: 11-03-2022 Trurl electrosurg re scj prostate bleed complete PROSTATECTOMY (TURP) [facility] Start: 11-03-2022 Deep breathing and coughing exercises [facility] Start: 11-03-2022 Incentive spirometry [facility] Start: 11-03-2022 Provision of activit y privileges [facility] Start: 11-03-2022 Admission procedure [facility] Start: 11-03-2022 Irrigation of urinar y bladder [facility] Start: 11-03-2022 Measuring intake and output [facility] Start: 11-03-2022 Patient education [facility] Start: 11-03-2022 Taking patient vital signs [facility] Start: 11-03-2022 Vital signs measurements [facility] Start: 11-03-2022 End: 11-03-2022 [facility] Start: 11-03-2022 Inhalation therapy procedure [facility] Start: 04-09-2022 Blood chemistry [facility] Work Phone: Start: 04-05-2022 Anes integ musc & nr v head neck&posterior trunk ANESTH HEAD/NECK/PTRUNK [facility] Start: 04-05-2022 Insj/rplcmt spi npgr dir/induxive coupling INSRT/REDO SPINE N GENERATOR [facility] Start: 04-05-2022 Prq impltj nstim electrode array epidural IMPLANT NEUROELECTRODES [facility] Start: 04-05-2022 Patient discharge [facility] Start: 02-24-2017 End: 02-24-2017 Appointment Appointment [facility] Phone: Start: 02-08-2017 End: 11-26-2016 Ct thorax w/contrast material CT Chest with Contrast [facility] Phone: Start: 01-14-2017 End: 01-14-2017 Appointment [facility] Phone: Start: 11-15-2016 End: 11-15-2016 Follow Up Appt 2 months Follow Up Appt 2 months [facility] Phone: Start: 11-15-2016 End: 11-18-[address] attenuation skull base mid-thigh 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 [facility] Phone: Start: 11-15-2016 End: 11-15-2016 Pulmonary Function Test - complete Pulmonary Function Test - complete [facility] Phone: Start: 11-15-2016 End: 11-15-2016 Pulmonary stress test/simple Pulmonary stress testing; simple (eg, 6-minute walk) [facility] Phone: Start: 11-15-2016 End: 11-15-2016 Appointment Appointment [facility] Phone: Start: 11-15-2016 End: 11-15-2016 Follow Up Appt 2 months Follow Up Appt 2 months [facility] Phone: Start: 11-15-2016 End: 11-18-2016 Pet image w/ct, 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 [facility] Phone: Start: 11-15-2016 End: 11-15-2016 Pulmonary Function Test - complete Pulmonary Function Test - complete [facility] Phone: Start: 11-15-2016 End: 11-15-2016 Pulmonary stress test/simple Pulmonary stress testing; simple (eg, 6-minute walk) [facility] Phone: Start: 2012 RSV Vaccine (1 - 1-d ose 75+ series) RSV Vaccine (1 - 1-dose 75+ series) [facility] Start: 1987 Pneumococcal Vaccine : 50+ (1 of 1 - PCV) Pneumococcal Vaccine: 50+ (1 of 1 - PCV) [facility] Start: 1987 Shingrix Vaccine (1 of 2) Benson grix Vaccine (1 of 2) [facility] Start: 1982 Diabetes Screening Diabetes Screenin g [facility] Start: 1956 Urine microalbumin profile DTaP,Tdap,Td Vaccine (1 - Tdap) [facility] Start: 1955 Anxiety Screening Anxiety Screening [facility] Start: 1955 Depression Screening Depression Scre ening [facility] Anion gap in Serum o r Plasma [facility] Anion gap measurement [facility] Work Phone: BUN/Creatinine ratio [facility] Work Phone: BUN/Creatinine ratio [facility] Calcium [Mass/volume ] in Serum or Plasma [facility] Work Phone: Calcium [Mass/volume ] in Serum or Plasma [facility] Carbon dioxide, tota l [Moles/volume] in Central venous blood [facility] Carbon dioxide, tota l [Moles/volume] in Serum or Plasma [facility] Work Phone: Chloride [Moles/volu me] in Serum or Plasma [facility] Work Phone: Creatinine [Mass/vol ume] in Serum or Plasma [facility] Creatinine [Moles/vo lume] in Serum or Plasma [facility] Work Phone: Erythrocyte mean corpuscular volume determination [facility] Gastrointestinal pathogens panel - Stool by JOSTIN with probe detection [facility] Glucose [Mass/volume ] in Serum or Plasma [facility] Work Phone: Glucose [Mass/volume ] in Serum or Plasma [facility] Hematocrit [Volume Fraction] of Blood [facility] Work Phone: Hematocrit [Volume Fraction] of Blood [facility] Hemoglobin [Mass/vol ume] in Blood [facility] Work Phone: Hemoglobin [Mass/vol ume] in Blood [facility] Leukocytes [#/volume ] in Blood [facility] Work Phone: Leukocytes [#/volume ] in Blood [facility] Mean corpuscular hemoglobin concentration determination [facility] Work Phone: Mean corpuscular hemoglobin concentration determination [facility] Mean corpuscular hemoglobin determination [facility] Work Phone: Mean corpuscular hemoglobin determination [facility] Measurement of renal function [facility] Work Phone: Measurement of renal function [facility] End: 01-13-2026 MR Sacrum and Coccyx WO contrast MRI SACRUM/COCCYX WO IVCON Radiology Routine Neoplasm of unspecified behavior of bone, soft tissue, and skin Perineal numbness 1 Occurrences starting 12/14/2024 until 01/13/2026 [facility] Work Phone: Comment on above: 1 Occurrences starti ng 12/14/2024 until 01/13/2026 Neutrophil count [facility] Work Phone: Neutrophil percent differential count [facility] Work Phone: NM Heart Views W str ess and W radionuclide IV [facility] Ova and parasites identified in Unspecified specimen by Light microscopy [facility] Patient Education [facility] Work Phone: Patient referral [facility] Work Phone: Platelets [#/volume] in Blood [facility] Work Phone: Platelets [#/volume] in Blood [facility] Potassium [Moles/vol ume] in Serum or Plasma [facility] Work Phone: Potassium measurement [facility] Red blood cell count [facility] Work Phone: Red blood cell count [facility] Red cell distributio n width determination [facility] Work Phone: Red cell distributio n width determination [facility] Serum chloride measurement [facility] Sodium [Moles/volume ] in Serum or Plasma [facility] Work Phone: Sodium measurement [facility] Urea nitrogen [Mass/volume] in Serum or Plasma [facility] Work Phone: Urea nitrogen [Mass/volume] in Serum or Plasma [facility] Immunizations Immunization Date Immunization Notes Care Provider [facility] 03-02-2024 Pfizer Covid-19 (Comirnaty) Dr. Shoshana Ulrich MD Work Phone: [facility] 03-02-2024 RSV Adult BiValent (Abrysvo) Dr. Shoshana Ulrich MD Work Phone: [facility] 04-06-2023 influenza, injectabl e, quadrivalent, preservative free Dr. Shoshana Ulrich MD Work Phone: [facility] 04-06-2023 influenza virus vaccine, unspecified formulation Olga Christianson PA-C Work Phone: [facility] 07-10-2020 Covid (Moderna) Dr. Shoshana warren Work Phone: [facility] [facility] 06-12-2020 Covid (Moderna) Dr. Shoshana warren Work Phone: [facility] Payers Date Payer Category Payer Medicare (Managed Care) [employer] H[employer] [id number] 2024 Medicare [id number] 2024 Self-pay [id number] 2002 Medicare [id number] Unknown [id number] Unknown [id number] 2..1.960631.3.579. 2.462 Unknown [id number] 2..1.571836.3.579. 2.462 Unknown [id number] 2.0.1.195543.3.579. 2.462 Unknown [id number] 2.0.1.286519.3.579. 2.462 Unknown [id number] 2.0.1.537870.3.579. 2.462 Unknown [id number] 2..1.876687.3.579. 2.462 Unknown [id number] 2..840.1.528922.3.579. 2.462 Unknown [id number] 2.840.1.741350.3.579. 2.462 Unknown [id number] 2.16.840.1.904541.3.579. 2.462 Unknown [id number] 2.840.1.738851.3.579. 2.462 Unknown [id number] 2.840.1.683793.3.579. 2.462 Unknown [id number] 2.840.1.789849.3.579. 2.462 Unknown [id number] 2.840.1.256296.3.579. 2.462 Unknown [id number] 2.840.1.648843.3.579. 2.462 Unknown [id number] 2.840.1.305580.3.579. 2.462 Unknown [id number] 2.840.1.069190.3.579. 2.462 Unknown [id number] 2.840.1.399533.3.579. 2.462 Unknown [id number] 2.840.1.566429.3.579. 2.462 Unknown [id number] .840.1.466037.3.579. 2.462 Unknown [id number] .840.1.283334.3.579. 2.462 Unknown [id number] .840.1.949663.3.579. 2.462 Unknown [id number] 2.840.1.925667.3.579. 2.462 Unknown [id number] 2.840.1.111658.3.579. 2.462 Unknown [id number] 2.840.1.511841.3.579. 2.462 Unknown [id number] 2.840.1.484710.3.579. 2.462 Unknown [id number] 2..840.1.100297.3.579. 2.462 Unknown [id number] 2.840.1.030640.3.579. 2.462 Unknown [id number] 2.840.1.672269.3.579. 2.462 Unknown [id number] 2.0.1.574469.3.579. 2.462 Unknown [id number] 2.840.1.370879.3.579. 2.462 Social History Date Type Detail Facility Start: 05-26-2021 End: 09-20-2023 Tobacco smoking status MNIS Unknown if ever smoked [facility] Start: 07-08-[address] [facility] Start: 07-08-2020 Spouse/ Signif icant Other [facility] Start: 09-11-[address] [facility] Start: 1935 Sex Assigned At Male W [facility] Start: 07-13-2024 End: 02-19-2025 Tobacco smoking status NHIS Smokes tobacco daily (finding) [facility] Start: 08-03-2024 Sex Male (finding) [facility] Start: 1935 Sex assigned at Not on file [facility] Start: 12-14-2024 Gender identity Not on file [facility] Start: 11-21-2024 Tobacco smoking status MNIS Ex-smoker (finding) [facility] History of tobacco use Cigarette Smoker [facility] Start: 12-14-2024 Tobacco use and exposure Smokeless tobacco non-user [facility] Start: 12-14-2024 History of Social function [facility] National Score (1-100), lower number is lower risk 72 [facility] Medical Equipment Procedure Code Equipment Code Equipment Origin al Text Equipment Identifier Dates Insertion, spinal cord stimulator, permanent [employer] BATTERY FDA Start: 04-05-2022 Insertion, spinal cord stimulator, permanent [employer] LEAD KIT FDA Start: 04-05-2022 Insertion, spinal cord stimulator, permanent [employer] LEAD KIT FDA Start: 04-05-2022 Insertion, spinal cord stimulator, permanent ([id number]) Implantable pulse generator mesh bag, bioabsorbable [id number] FDA Start: 04-05-2022 Insertion, spinal cord stimulator, [...] 07-12-2017 TUBE, EAR RILEY FDA Start: 07-12-2017 Vena cava filter , temporary/permanent [id number] FDA Start: 11-05-2024 [employer] Ur oLift System FDA Start: 12-21-2018 [...] /State Functional Status Date Assessment Result Facility 11-06-2024 Functional status Bathroom Privilege [facility] Work Phone: 09-21-2023 Functional status Patient Activi ty Ambulates;Up ad puma [facility] Work Phone: 09-20-2023 Functional status Activity Ability Indepe ndent [facility] Work Phone: 09-20-[address] [facility] Work Phone: 11-04-2022 Functional status Patient Activi ty Ambulates;Chair [facility] Work Phone: 11-04-2022 Functional status Activity Abili ty Independent;Standby Assist [facility] Work Phone: 11-03-2022 Functional status Standard Walker [facility] Work Phone: Mental Status Date Assessment Result Facility 11-06-2024 Cognitive function Voice/Name [facility] Work Phone: 09-21-2023 Cognitive function Voice/Name [facility] Work Phone: 11-04-2022 Cognitive function Level Of Cons ciousness Awake;Alert;Appropriate;Follow s Commands [facility] Work Phone: 11-04-2022 Cognitive function Voice/Name [facility] Work Phone: 10-07-2022 Cognitive function Level Of Cons ciousness Awake;Alert;Appropriate [facility] Work Phone: 04-05-2022 Cognitive function Voice/Name [facility] Work Phone: Clinical Notes 09-11-2021 to 02-19-2025 Olga Christianson PA-C - 12/14/2024 12:06 PM EDTTelephone Encounter - Allegra Sanchez RN - 11/14/2024 4:56 PM EDTTelephone Encounter - Allegra Sanchez RN - 11/14/2024 4:56 PM EDT Note Date & Type Note Facility 02-19-2025 Radiology Diagnostic study note [facility] Imaging Services [address], [place] [address] Chest 1 View (Portable) MR#: [id number] Acct: [id number] Name: DORIAN CRAMER Rep #: [id number] : 1935 M 89 From: Lotus Melgar MD PCP: Dr. Shoshana Ulrich MD Status: REG ER Study:Chest 1 View (Portable) Date of Exam: 02/19/25 Exam# [id number] Ordering Dr: Chito Werner MD PROCEDURE: CHEST 1 VIEW (PORTABLE) 02/19/2025 REASON FOR EXAM: SHORTNESS OF BREATH TECHNIQUE: Frontal view of the chest. COMPARISON: July 21, 2023 FINDINGS: Hardware: EKG leads. Thoracic neurostimulator midthoracic spine. Heart: Normal-size. Aorta is atherosclerotic. Lungs: Right hilar granulomas. Lungs are clear. No pneumothorax or pleural effusion. Minimal atelectasis left base. Bones: Old, healed fractures posterior right upper ribs. Curvature thoracic andthoracolumbar spine. RAD/Chest 1 View (Portable) IMPRESSION: No acute abnormality Reading Location: [id number] CC: Dr. Chito Werner MD; Dr. 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 Author Type: Physician Project Hire Type: Progress Notes Filed: 12/14/2024 13:10 Note Text: Olga Christianson PA-C [facility] [address] [address] 12/14/2024 ASSESSMENT AND PLAN: Assessment : Encounter Diagnosis ICD-10-CM 1. Neoplasm of unspecified behavior of bone, soft tissue, and skin D49.2 MRI SACRUM/COCCYX WO IVCON 2. Perineal numbness R20.0 MRI SACRUM/COCCYX WO IVCON Discussion: Mr. Cramer is a pleasant 89-year-old man here for evaluation of lumbosacral region. He has been seen by 2 different dermatologists who he indicates have opined that he has a problem in his low back nerves that might be causing penile and scrotal skin irritation and pain and numbness. He denies bowel or bladder sphincter control issues of any sort and he denies LE radiating numbness, tingling, weakness. He has not had any testing done from a spine or neurologic standpoint. EXAM Highlights: Slow to mobilize from sitting to standing and leans forward as he stands and walks. He uses a single post cane to help himself get around. This all appears to be essentially age-appropriate for an 89-year-old. He has no focal lower extremity weakness. 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 Seated SLR's are negative bilaterally. He is hyporeflexic throughout bilateral lower extremities There is some pain on palpation over the LEFT sacroiliac region and sciatic notch. IMAGING: There has not been any spine imaging completed at this point. He has not had any imaging at all here at [facility] in recent years. SUMMARY/PLAN: With his complaints of perineal skin disturbance, there is a possibility that he is experiencing a sacral nerve root issue. As a chronic smoker, I would want to rule out the possibility of bony lesion or tumor in this area. His symptoms in the skin in his groin are consistent with the same side that his SI/sciatic notch symptoms are present. If sacral/coccygeal MRI is positive, we will decide future referrals accordingly. If it does not appear that there is a malignancy, I might consider sending for a pudendal block Plan : DIAGNOSTIC TESTING: -An MRI is ordered to better delineate the soft tissue structures contributing to the patient's current symptoms, including the intervertebral disks, facet joints, spinal ligaments and neural elements. The study will aid with evaluating the need for, and planning, future interventional procedures. ACTIVITY RECOMMENDATIONS: -The patient is encouraged to avoid bed rest and maintain normal activity. FOLLOW-UP: -The patient is instructed to follow up after studies are complete. This document has been created with the use of voice recognition technology. It may contain inaccuracies: (e.g. misspellings, inaccurate syntax or word sense) that have escaped review. Time spent: 30 minutes today with this patient visit. This includes uqbp-vs-[id number] time, review of chart records regarding conservative care history, spine-pertinent imaging, and communication/care coordination with referring provider, problem-specific history-taking and counseling/education regarding treatment options. cc: No referring provider defined for this encounter. Phone: N/A Fax: Results of consultation to be transmitted via electronic medical record for those providers who practice within [facility] or with access to [employer] via MD Connect, or via letter. ######################################################################## CHIEF COMPLAINT: Patient is here for the lower back pain, left side is more painful. Has this pain for years. Level of the pain is at 8/10. Medication helps sometimes. HPI: see "Discussion" above History of bowel or bladder dysfunction (not IBS or constipation): No History of previous spinal surgery: Yes, performed in 1989 at [facility]. The procedure was a L4-L5 Laminectomy. History of spinal fracture: No Work Status: retired NON-OPERATIVE CARE: Medication(s): He has tried the following for relief of his symptoms: oxycodone Physical Therapy: He has not had physical therapy for his current symptoms. Spinal Injections: He has gotten prior spinal injections. Lumbar epidural steroid injection. Last one did not help. Other: None Current Outpatient Medications Medication Sig Dispense Refill amLODIPine (NORVASC) 5 mg tablet Take 1 tablet by mouth once daily. amoxicillin (AMOXIL) 500 mg capsule 500 mg once daily. omeprazole (PRILOSEC) 40 mg capsule 40 mg once daily. oxybutynin ER (DITROPAN XL) 10 mg 24 hr tablet Take 1 tablet by mouth once daily. oxyCODONE-acetaminophen (PERCOCET) 5-325 mg tablet Take 1 tablet by mouth three times a day as needed. triamcinolone aceton (more content not included)... [facility] 12-14-2024 History of Present illness Narrative Formatting of this note is different fro m the original. Images from the original note were not included. Olga Christianson PA-C [facility] [address] [address] 12/14/2024 ASSESSMENT AND PLAN: Assessment : Encounter Diagnosis ICD-10-CM 1. Neoplasm of unspecified behavior of bone, soft tissue, and skin D49.2 MRI SACRUM/COCCYX WO IVCON 2. Perineal numbness R20.0 MRI SACRUM/COCCYX WO IVCON Discussion: Mr. Cramer is a pleasant 89-year-old man here for evaluation of lumbosacral region. He has been seen by 2 different dermatologists who he indicates have opined that he has a problem in his low back nerves that might be causing penile and scrotal skin irritation and pain and numbness. He denies bowel or bladder sphincter control issues of any sort and he denies LE radiating numbness, tingling, weakness. He has not had any testing done from a spine or neurologic standpoint. EXAM Highlights: Slow to mobilize from sitting to standing and leans forward as he stands and walks. He uses a single post cane to help himself get around. This all appears to be essentially age-appropriate for an 89-year-old. He has no focal lower extremity weakness. 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 Seated SLR's are negative bilaterally. He is hyporeflexic throughout bilateral lower extremities There is some pain on palpation over the LEFT sacroiliac region and sciatic notch. IMAGING: There has not been any spine imaging completed at this point. He has not had any imaging at all here at [facility] in recent years. SUMMARY/PLAN: With his complaints of perineal skin disturbance, there is a possibility that he is experiencing a sacral nerve root issue. As a chronic smoker, I would want to rule out the possibility of bony lesion or tumor in this area. His symptoms in the skin in his groin are consistent with the same side that his SI/sciatic notch symptoms are present. If sacral/coccygeal MRI is positive, we will decide future referrals accordingly. If it does not appear that there is a malignancy, I might consider sending for a pudendal block Plan : DIAGNOSTIC TESTING: -An MRI is ordered to better delineate the soft tissue structures contributing to the patient's current symptoms, including the intervertebral disks, facet joints, spinal ligaments and neural elements. The study will aid with evaluating the need for, and planning, future interventional procedures. ACTIVITY RECOMMENDATIONS: -The patient is encouraged to avoid bed rest and maintain normal activity. FOLLOW-UP: -The patient is instructed to follow up after studies are complete. This document has been created with the use of voice recognition technology. It may contain inaccuracies: (e.g. misspellings, inaccurate syntax or word sense) that have escaped review. Time spent: 30 minutes today with this patient visit. This includes [id number]-dk-[id number] time, review of chart records regarding conservative care history, spine-pertinent imaging, and communication/care coordination with referring provider, problem-specific history-taking and counseling/education regarding treatment options. cc: No referring provider defined for this encounter. Phone: N/A Fax: Results of consultation to be transmitted via electronic medical record for those providers who practice within [facility] or with access to [employer] via MD Connect, or via letter. ######################################################################## CHIEF COMPLAINT: Patient is here for the lower back pain, left side is more painful. Has this pain for years. Level of the pain is at 8/10. Medication helps sometimes. HPI: see "Discussion" above History of bowel or bladder dysfunction (not IBS or constipation): No History of previous spinal surgery: Yes, performed in 1989 at [facility]. The procedure was a L4-L5 Laminectomy. History of spinal fracture: No Work Status: retired NON-OPERATIVE CARE: Medication(s): He has tried the following for relief of his symptoms: oxycodone Physical Therapy: He has not had physical therapy for his current symptoms. Spinal Injections: He has gotten prior spinal injections. Lumbar epidural steroid injection. Last one did not help. Other: None Current Outpatient Medications Medication Sig Dispense Refill amLODIPine (NORVASC) 5 mg tablet Take 1 tablet by mouth once daily. amoxicillin (AMOXIL) 500 mg capsule 500 mg once daily. omeprazole (PRILOSEC) 40 mg capsule 40 mg once daily. oxybutynin ER (DITROPAN XL) 10 mg 24 hr tablet Take 1 tablet by mouth once daily. oxyCODONE-acetaminophen (PERCOCET) 5-325 mg tablet Take 1 tablet by mouth three times a day as needed. triamcinolone acetonide (KENALOG) 0.1 % cream as needed. No current facility-administered medications for this visit. Allergies: Patient has no known allergies. No past medical history on file. No past surgical history on file. Social History Tobacco Use Smoking status: Every Day Types: Cigarettes Smokeless tobacco: Never No family history on file. REVIEW OF SYSTEMS: Constitutional: (-) Fever/Chills (-) Night Sweats (-) Weight Gain (-) Weight Loss Gastrointestinal: (-) Abdominal Pain (-) Diarrhea (-) Constipation (-) Heart Burn Cardiovascular: (-) Chest Pain (-) Palpitations (-) Lightheadedness (-) Hx Heart Surgery/Stent Respiratory: (-) Short of Breath (-) Cough (+) Snoring CPAP Neurologic: (-) Headache (-) Blurry Vision (-) Fainting Skin: (-) Rashes (-) Itching (-) Other Lesions Psychiatric: (-) Depression (-) Anxiety (-) Suicidal Thoughts Genitourinary: (-) Frequency (-) Urgency Endocrine: (-) Thyroid Disorder (-) Diabetes Hematologic: (-) Prolonged Bleeding (+) Easy Bruising ########################################################################### ###################################################### PHYSICAL EXAM: Blood pressure 126/66, pulse 75, height 167.6 cm (5' 6"), weight 64.3 kg (141 lb 12.1 oz), SpO2 97%. Body mass index is 22.88 kg/m . General: Patient is a(n) average historian. The patient appears approximately the recorded age and is sitting comfortably in the examining room. The patient is average height in stature and is slender in appearance. This individual has difficulty arising from a sitting position and does have difficulty acquiring a full, upright position when standing. Station and Gait: flexed posture and antalgic gait leaning forward and flexed posture and gait using a cane The patient is unable to walk in a tandem gait. MENTAL STATUS EXAMINATION: The patient was well groomed and casually attired. The patient had excellent eye contact and rapport was easy to establish. The patient appeared to be alert and oriented in all spheres. The patient's overall medical judgment appeared to be fair.The patient's motivation for treatment was judged based on today's encounter to be good. SPINE: Lumbar Lordosis: Decreased/flattened Thoracic Kyphosis: Increased NEUROLOGIC EXAM: MOTOR: Requires verbal cues to minimize cog-wheel or give-way resistance: No Hip Flexor R: 5/5 L: 5/5 Hip Abductor R: 5/5 L: 5/5 Hip Adductor R: 5/5 L: 5/5 Knee Extension R: 4/5 L: 4/5 Foot Dorsiflexion R: 5/5 L: 5/5 Foot Plantar Flexion R: 5/5 L: 5/5 Ext Hallicus Longus R: 5/5 L: 5/5 Toe Extensors R: 5/5 L: 5/5 SENSATION to Light Touch: Lumbar: L2-S1 symmetrically normal. REFLEXES: Lower Extremity: All Lower Extremity reflexes symmetrically normal. Clonus: R: 0 beats/Normal L: 0 beats/Normal Babinski Sign: Negative bilaterally. ADDITIONAL MUSCULOSKELETAL EXAM: HIP/PELVIS EXAM: Tenderness over the PSIS: Right: No Left: No Greater Trochanteric pain: Right: No Left: No SPECIAL TESTS: Straight Leg Raise: negative bilaterally Contralateral Straight Leg Raise: negative bilaterally IMAGING STUDIES: See discussion above documented in this encounter [facility] 11-14-2024 Telephone encounter Note Formatting of this note might be differe nt from the original. TC to [facility] to advise that 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 No answer, left detailed VM on secure line with office number for any questions. EVGENY Byrnes [facility] 11-14-2024 [facility] us Notes Formatting of this note might be differe nt from the original. TC to [facility] to advise that 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 No answer, left detailed VM on secure line with office number for any questions. EVGENY Byrnes Patient contacted the office stating he contacted the Neuromuscular department and they explained to the patient they do not see for the area of the body the patient is having pain in.Patient states having pain in groin area. Please advise. Phoned patient and advised him of provider's message stating he should be scheduled with Neuromuscular and not neurology. Patient given neuro scheduling desk number and he voiced understanding. Anastasiia Landers LPN documented in this encounter [facility] 11-14-2024 Telephone encounter Note Formatting of this note might be differe nt from the original. Patient contacted the office stating he contacted the Neuromuscular department and they explained to the patient they do not see for the area of the body the patient is having pain in.Patient states having pain in groin area. Please advise. [facility] 11-14-2024 Telephone encounter Note Formatting of this note might be differe nt from the original. Phoned patient and advised him of provider's message stating he should be scheduled with Neuromuscular and not neurology. Patient given neuro scheduling desk number and he voiced understanding. Anastasiia Landers LPN [facility] 11-06-2024 Consult note Note Date/Time November 06, 2024 10:51am [facility] Medical Records Department [address] [place] [address] Counseling Note - Pharmacy 11/06/24 1050 MR#: [id number] Acct: [id number] Name: DORIAN CRAMER Rep #:[id number] : 1935 89 From: Martita Jacobs PCP: Dr. Shoshana Ulrich MD Status:ADM IN Location: [place] [address] Pharmacy PR Med Reconciliation Pharmacy Service has performed discharge medication reconciliation for this patient. The patient's discharge medication list was reviewed for discrepancies and discrepancies were resolved. Medications at Discharge Home Medications albuterol sulfate 90 mcg/actuation aerosol inhaler 1 puff inhalation Q4H PRN sob/wheezing 09/08/21 amlodipine 5 mg tablet 5 mg PO DAILY 07/02/22 artifi.tears(hypromellose)(PF) 1.7 % eye drops with applicator 1 drp EACH EYE DAILY PRN dry eyes 09/19/23 oxybutynin chloride 10 mg tablet,extended release 24 hr 10 mg PO DAILY 09/19/23 nystatin 100,000 unit/gram topical powder 1 applic topical QDAY PRN yeast 07/13/24 oxycodone-acetaminophen 5 mg-325 mg tablet 1 tab PO TID PRN PRN pain 11/02/24 11/06/24 1051 <Electronically signed by Martita Jacobs> Date _ Martita Jacobs Cosigner Signature (if applicable): Date CC: ~ Signed [facility] Work Phone: 1(462) 948-912106-24-2025 Discharge summary Author Daneil Neal [facility] Note Date/Time November 06, 2024 10:4 2am [facility] Medical Records Department [address] [place] [address] Instructions for Home/Discharge Instructions 11/06/24 1039 MR#: [id number] Acct: [id number] Name: DORIAN CRAMER Rep #:[id number] : 1935 89 From: Daniel Neal DO PCP: Dr. Shoshana Ulrich MD Status:ADM IN Discharge Instructions Diet Discharge Diet: No restrictions DC O2, CPAP, BIPAP needs Home O2 Discharge instructions: No Dressing / Incision Discharge Activity: Return to Normal Activity Weight Bearing Status: Full weight bearing Follow Up Care Test Results: Test results from this visit will be discussed in further detail at your follow- up appointment, if applicable. Discharge Plan Admission Admit Date/Time: 11/03/24 15:03 Primary Reason for Your Visit: Rectus sheath hematoma, anemia, acute VTE Attending Provider: Daniel Neal Primary Care Provider: Shoshana Ulrich Consulting Providers: Raghav Serrano; Rylie Arreaga; Santana Mason Instructions Additional Instructions / Restrictions: Remain off Eliquis, you will follow-up with Dr. Mason and he will give you instructions when to resume it Discharge Orders/Prescriptions Prescriptions: Continued amlodipine 5 mg tablet 5 mg PO DAILY nystatin 100,000 unit/gram powder 1 applic topical QDAY PRN (Reason: yeast) albuterol sulfate 90 mcg/actuation HFA aerosol inhaler 1 puff INHALATION Q4H PRN (Reason: sob/wheezing) oxybutynin chloride 10 mg tablet extended release 24hr 10 mg PO DAILY artifi.tears(hypromellose)(PF) 1.7 % drops with applicator 1 drp EACH EYE DAILY PRN (Reason: dry eyes) oxycodone-acetaminophen 5-325 mg tablet 1 tab PO TID PRN PRN (Reason: pain) Discontinued Eliquis 5 mg tablet 5 mg PO BID Qty: 180 1RF Referrals / Follow Up: Santana Mason MD [Med Staff - Active Staff] - See Referral Note (In 3 weeks) Shoshana Ulrich MD [Primary Care Provider] - Within 2 Weeks Disposition Disposition (needs filled in before D/C Order can be placed): Home, Self Care 11/06/24 1042<Electronically signed by Daniel Neal DO>Daniel Neal DO CC: Dr. Raghav Serrano DO; Dr. Santana Mason MD; Dr. Shoshana Ulrich MD; Dr. Rylie Arreaga MD ~ Signed [facility] Work Phone: 1(537) 782-206206-24-2025 Consult note [facility] Medical Records Department [address] [place] [address] Counseling Note - Pharmacy 11/06/24 1050 MR#: [id number] Acct: [id number] Name: DORIAN CRAMER Rep #:[id number] : 1935 89 From: Martita Jacobs PCP: Dr. Shoshana Ulrich MD Status:ADM IN Location: [place] [address] Pharmacy PR Med Reconciliation Pharmacy Service has performed discharge medication reconciliation for this patient. The patient's discharge medication list was reviewed for discrepancies and discrepancies were resolved. Medications at Discharge Home Medications albuterol sulfate 90 mcg/actuation aerosol inhaler 1 puff inhalation Q4H PRN sob/wheezing 09/08/21 amlodipine 5 mg tablet 5 mg PO DAILY 07/02/22 artifi.tears(hypromellose)(PF) 1.7 % eye drops with applicator 1 drp EACH EYE DAILY PRN dry eyes 09/19/23 oxybutynin chloride 10 mg tablet,extended release 24 hr 10 mg PO DAILY 09/19/23 nystatin 100,000 unit/gram topical powder 1 applic topical QDAY PRN yeast 07/13/24 oxycodone-acetaminophen 5 mg-325 mg tablet 1 tab PO TID PRN PRN pain 11/02/24 11/06/24 1051 Date _ Martita Pelaez Signature (if applicable): Date CC: ~ Signed [facility]06-24-2025 Discharge summary [facility] Medical Records Department [address] [place] [address] Instructions for Home/Discharge Instructions 11/06/24 1039 MR#: [id number] Acct: [id number] Name: DORIAN CRAMER Rep #:[id number] : 1935 89 From: Daniel Neal DO PCP: Dr. Shoshana Ulrich MD Status:ADM IN Discharge Instructions Diet Discharge Diet: No restrictions DC O2, CPAP, BIPAP needs Home O2 Discharge instructions: No Dressing / Incision Discharge Activity: Return to Normal Activity Weight Bearing Status: Full weight bearing Follow Up Care Test Results: Test results from this visit will be discussed in further detail at your follow- up appointment, if applicable. Discharge Plan Admission Admit Date/Time: 11/03/24 15:03 Primary Reason for Your Visit: Rectus sheath hematoma, anemia, acute VTE Attending Provider: Daniel Neal Primary Care Provider: Shoshana Ulrich Consulting Providers: Raghav Serrano; Rylie Arreaga; Santana Mason Instructions Additional Instructions / Restrictions: Remain off Eliquis, you will follow-up with Dr. Mason and he will give you instructions when to resume it Discharge Orders/Prescriptions Prescriptions: Continued amlodipine 5 mg tablet 5 mg PO DAILY nystatin 100,000 unit/gram powder 1 applic topical QDAY PRN (Reason: yeast) albuterol sulfate 90 mcg/actuation HFA aerosol inhaler 1 puff INHALATION Q4H PRN (Reason: sob/wheezing) oxybutynin chloride 10 mg tablet extended release 24hr 10 mg PO DAILY artifi.tears(hypromellose)(PF) 1.7 % drops with applicator 1 drp EACH EYE DAILY PRN (Reason: dry eyes) oxycodone-acetaminophen 5-325 mg tablet 1 tab PO TID PRN PRN (Reason: pain) Discontinued Eliquis 5 mg tablet 5 mg PO BID Qty: 180 1RF Referrals / Follow Up: Santana Mason MD [Med Staff - Active Staff] - See Referral Note (In 3 weeks) Shoshana Ulrich MD [Primary Care Provider] - Within 2 Weeks Disposition Disposition (needs filled in before D/C Order can be placed): Home, Self Care 11/06/24 1042Daniel Ángel GRION CC: Dr. Raghav Serrano DO; Dr. Santana Mason MD; Dr. Shoshana Ulrich MD; Dr. Rylie Arreaga MD ~ [facility]06-24-2025 [facility] Medical Records Department [address] [place] [address] Discharge Summary 11/06/24 1042 MR#: [id number] Acct: [id number] Name: DORIAN CRAMER Rep #: [id number] : 1935 89 From: Daniel Neal DO PCP: Dr. Shoshana Ulrich MD Status:DIS IN [facility] Prov[facility] Date of Admission: 11/03/24 Date of Discharge: 11/06/24 Primary Care Physician: Dr. Shoshana Ulrich MD Consultations 11/04/24 13:44 Consult: Vascular Surgery Routine Consulting Provider: Santana Mason Reason for Consult: need for vena caval filter EMERGENT Consult: No MD Notified: Yes Date Notified: 11/04/24 Time Notified: 13:45 Method of Notification: Verbal Reason For Visit: 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 Diagnosis Discharge Diagnosis (1) Rectus sheath hematoma: Status: Acute Code(s): S30.1XXA - Contusion of abdominal wall, initial encounter Plan 1. Rectus sheath hematoma-patient's CBC will need to be monitored now that he is back on anticoagulation #2 acute anemia secondary to rectus sheath hematoma-not requiring blood transfusion, patient's hemoglobin today was 9.5 #3 VTE of the right leg-patient now has a vena caval filter, his heparin will be discontinued #4 essential hypertension-patient will stay on his present medications for blood pressure Total clinical time spent by myself addressing the patient's medical issues, reviewing all of his data, and collaborating with patient's care team: 35 minutes Medications at Discharge Home Medications albuterol sulfate 90 mcg/actuation aerosol inhaler 1 puff inhalation Q4H PRN sob/wheezing 09/08/21 amlodipine 5 mg tablet 5 mg PO DAILY 07/02/22 artifi.tears(hypromellose)(PF) 1.7 % eye drops with applicator 1 drp EACH EYE DAILY PRN dry eyes 09/19/23 oxybutynin chloride 10 mg tablet,extended release 24 hr 10 mg PO DAILY 09/19/23 nystatin 100,000 unit/gram topical powder 1 applic topical QDAY PRN yeast 07/13/24 oxycodone-acetaminophen 5 mg-325 mg tablet 1 tab PO TID PRN PRN pain 11/02/24 Hospital Course Operations None Procedures IVC filter placement and - Summary of Care Provided Minutes Spent on Discharge: 32 Hospital Course: This 89-year-old white male was seen in the emergency room at [facility] with worsening right lower quadrant abdominal pain. Patient had been diagnosed with a lower extremity VTE in May 2024, he had been on Eliquis since that time. CT of the abdomen and pelvis showed a 6.7 cm isodense lesion of the right aspect of the lower anterior abdominal wall. This was concerning for a rectus sheath hematoma. Patient's Eliquis was held, patient CBC was monitored. There was not a significant drop in the patient's hemoglobin that warranted a transfusion. Patient underwent a duplex study of his lower extremities, there was noted to be the presence of a right leg VTE and vascular surgery was consulted and recommended a vena caval filter be placed. On 11/06/2024, patient was seen and examined: On examination he appeared in good health and spirits. Vital signs as documented. Skin warm and dry and without overt rashes. Neck without JVD, neck was supple, trachea midline, thyroid was normal. Lungs clear bilaterally, normal air movement was noted. Heart exam notable for regular rhythm, normal sounds and absence of murmurs, rubs or gallops. Abdomen unremarkable and without evidence of organomegaly, masses, or abdominal aortic enlargement. Bowel sounds are present, abdomen is not distended. Extremities nonedematous, no cyanosis was noted, no clubbing was noted. Neuro: Cranial nerves II through XII are grossly intact, no focal motor deficits were noted, sensation to light touch and pinprick intact, motor exam 5/5 throughout. Psych: Patient is alert and oriented x3, he does not appear anxious or depressed, he does not appear agitated. Patient was discharged home in stable condition on 11/06/2024. Weight / BMI Weight Weight: 66.361 kg Body Mass Index (BMI) 24.3 ABG / Lab / Microbiology Data 11/05/24 03:14 11/04/24 05:25 Laboratory: Laboratory Results - last 24 hr 11/05/24 10:20: APTT 68.6 H Radiography Diagnostic Testing: Radiology Impression Venous Doppler Study 11/04/24 11:24 Interpretation Summary Acute deep vein thrombosis noted in the right femoral vein, tibioperoneal trunk vein. Chronic deep vein thrombosis noted in right femoral vein. Ordering Physician: Daniel Neal Referring Physician: Shoshana Ulrich Performed By: Alyce Loredo, KRISHNA, RVT D/C Instructions Discharge Diet: No restrictions Weight Bearing Status: Full weight bearing DC O2, CPAP, BIPAP Needs Home O2 Dis (more content not included)...[facility]06-23-2025 Progress note Author Daniel [facility] Note Date/Time November 05, 2024 4:22 pm [facility] Medical Records Department [address] [place] [address] Progress Note - Hospitalist 11/05/24 1618 MR#: [id number] Acct: [id number] Name: DORIAN CRAMER Rep #:[id number] : 1935 89 From: Daniel Neal DO PCP: Dr. Shoshana Ulrich MD Status:ADM IN [place] [facility] [place] Reason for Visit Reason for Visit: Diagnoses Acute embolism and thrombosis of right popliteal vein (11/03/24) Contusion of abdominal wall, initial encounter (11/03/24) Subjective Subjective Patient was seen and examined today, I talked briefly with vascular surgery, he is going to have a vena caval filter placed today. Patient's hemoglobin appearsto be stable at this time Objective Data Objective Data Vital Signs: Vital Signs Temp Pulse Resp BP Pulse Ox O2 Del Method O2 Flow Rate 98.2 F 71 18 122/71 H 98 Room Air 2 11/05/24 11:33 11/05/24 11:33 11/05/24 11:33 11/05/24 11:33 11/05/24 11:33 11/05/24 11:11/05/24 02:20 Oxygen Flow Rate (L/min) 2 Oxygen Delivery Method Room Air Weight: 66.361 kg Body Mass Index (BMI) 24.3 Intake & Output: Intake and Output for Last 24 Hours 11/03/24 11/04/24 11/05/24 23:59 23:59 23:59 Intake Total 150 / 350 409.67 / 409.67 130.5 / 130.5 Output Total 900 / 900 Balance 150 / -250 -490.33 / -490.33 130.5 / 130.5 Lab / Micro Data 11/05/24 03:14 11/04/24 05:25 Labs: Laboratory Results - last 24 hr 11/04/24 21:15: WBC 5.1, RBC 2.84 L, Hgb 9.6 L, Hct 29.2 L, MCV 102.8 H, MCH 33.8 H, MCHC 32.9, RDW Std Deviation 61.1 H, RDW Coeff of Beth 16.0 H, Plt Count 183, MPV 10.4, Immature Gran % (Auto) 1.200 H, Neut % (Auto) 74.7 H, Lymph % (Auto) 13.8 L, [place] % (Auto) 7.6, Eos % (Auto) 2.3, Baso % (Auto) 0.4, Absolute Neuts (auto) 3.8, Absolute Lymphs (auto) 0.71 L, Nucleated RBC % 0, APTT 62.0 H 11/05/24 03:14: WBC 4.7, RBC 2.76 L, Hgb 9.5 L, Hct 28.2 L, MCV 102.2 H, MCH 34.4 H, MCHC 33.7, RDW Std Deviation 60.4 H, RDW Coeff of Beth 16.0 H, Plt Count 172, MPV 10.2, Immature Gran % (Auto) 1.100 H, Neut % (Auto) 71.6 H, Lymph % (Auto) 17.0 L, [place] % (Auto) 7.4, Eos % (Auto) 2.5, Baso % (Auto) 0.4, Absolute Neuts (auto) 3.4, Absolute Lymphs (auto) 0.80 L, Nucleated RBC % 0, APTT 79.5 H,Triglycerides 89, Cholesterol 187, LDL Cholesterol, Calc 104, VLDL Cholesterol 18, HDL Cholesterol 65, Cholesterol/HDL Ratio 2.87 11/05/24 10:20: APTT 68.6 H Physical Exam Narrative alert and no apparent distress General Appearance: cooperative, well kempt and well developed Orientation / Consciousness: awake, oriented to person and oriented to place HEENT normocephalic, head/scalp atraumatic and moist oral mucous membranes Eyes PERRL, EOMs intact bilaterally and conjunctivae normal Neck supple, no JVD, thyroid normal and no carotid bruits General: trachea midline Resp normal respiratory effort, no retractions, no use of accessory muscles and clearto auscultation bilaterally Auscultation: Negative for rales, rhonchi or wheezes Cardio regular rate, regular rhythm, S1 normal heart sound, S2 normal heart sound, no murmurs, no rub and no gallops GI normal to inspection, nondistended, normoactive bowel sounds, soft to palpation,non-tender and non-distended Extremity no clubbing, cyanosis or edema Skin no rashes or lesions noted General Skin Exam: no breakdown Neuro CN's II-XII intact bilaterally, no focal motor deficits and no sensory deficits noted Sensorium / Orientation: awake, alert, oriented to person and oriented to place Speech: speech normal Psych affect normal Assessment & Plan Assessment/Plan (1) Rectus sheath hematoma: PLAN: Plan 1. Rectus sheath hematoma-patient's CBC will need to be monitored now that he is back on anticoagulation #2 acute anemia secondary to rectus sheath hematoma-not requiring blood transfusion, patient's hemoglobin today was 9.5 #3 VTE of the right leg-patient now has a vena caval filter, his heparin will bediscontinued #4 essential hypertension-patient will stay on his present medications for bloodpressure Total clinical time spent by myself addressing the patient's medical issues, reviewing all of his data, and collaborating with patient's care team: 35 minutes Charges/Coding Visit Charges Inpatient E&M: 67358 Subs Hosp L2 11/05/24 1622 <Electronically signed by Daniel Neal DO> Cosigner Signature (if applicable): CC: ~ Signed [facility] Work Phone: 1(721) 443-731806-23-2025 Progress note [facility] Medical Records Department [address] [place] [address] Progress Note - Hospitalist 11/05/24 1618 MR#: [id number] Acct: [id number] Name: DORIAN CRAMER Rep #:[id number] : 1935 89 From: Daniel Neal DO PCP: Dr. Shoshana Ulrich MD Status:ADM IN [facility] Reason for Visit Reason for Visit: Diagnoses Acute embolism and thrombosis of right popliteal vein (11/03/24) Contusion of abdominal wall, initial encounter (11/03/24) Subjective Subjective Patient was seen and examined today, I talked briefly with vascular surgery, he is going to have a vena caval filter placed today. Patient's hemoglobin appearsto be stable at this time Objective Data Objective Data Vital Signs: Vital Signs Temp Pulse Resp BP Pulse Ox O2 Del Method O2 Flow Rate 98.2 F 71 18 122/71 H 98 Room Air 2 11/05/24 11:33 11/05/24 11:33 11/05/24 11:33 11/05/24 11:33 11/05/24 11:33 11/05/24 11:33 11/05/24 02:20 Oxygen Flow Rate (L/min) 2 Oxygen Delivery Method Room Air Weight: 66.361 kg Body Mass Index (BMI) 24.3 Intake & Output: Intake and Output for Last 24 Hours 11/03/24 11/04/24 11/05/24 23:59 23:59 23:59 Intake Total 150 / 350 409.67 / 409.67 130.5 / 130.5 Output Total 900 / 900 Balance 150 / -250 -490.33 / -490.33 130.5 / 130.5 Lab / Micro Data 11/05/24 03:14 11/04/24 05:25 Labs: Laboratory Results - last 24 hr 11/04/24 21:15: WBC 5.1, RBC 2.84 L, Hgb 9.6 L, Hct 29.2 L, MCV 102.8 H, MCH 33.8 H, MCHC 32.9, RDWStd Deviation 61.1 H, RDW Coeff of Beth 16.0 H, Plt Count 183, MPV 10.4, Immature Gran % (Auto) 1.200 H, Neut % (Auto) 74.7 H, Lymph % (Auto) 13.8 L, [place] % (Auto) 7.6, Eos % (Auto) 2.3, Baso % (Auto)0.4, Absolute Neuts (auto) 3.8, Absolute Lymphs (auto) 0.71 L, Nucleated RBC % 0, APTT 62.0 H 11/05/24 03:14: WBC 4.7, RBC 2.76 L, Hgb 9.5 L, Hct 28.2 L, MCV 102.2 H, MCH 34.4 H, MCHC 33.7, RDWStd Deviation 60.4 H, RDW Coeff of Beth 16.0 H, Plt Count 172, MPV 10.2, Immature Gran % (Auto) 1.100 H, Neut % (Auto) 71.6 H, Lymph % (Auto) 17.0 L, [place] % (Auto) 7.4, Eos % (Auto) 2.5, Baso % (Auto)0.4, Absolute Neuts (auto) 3.4, Absolute Lymphs (auto) 0.80 L, Nucleated RBC % 0, APTT 79.5 H,Triglycerides 89, Cholesterol 187, LDL Cholesterol, Calc 104, VLDL Cholesterol 18, HDL Cholesterol 65, Cholesterol/HDL Ratio 2.87 11/05/24 10:20: APTT 68.6 H Physical Exam Narrative alert and no apparent distress General Appearance: cooperative, well kempt and well developed Orientation / Consciousness: awake, oriented to person and oriented to place HEENT normocephalic, head/scalp atraumatic and moist oral mucous membranes Eyes PERRL, EOMs intact bilaterally and conjunctivae normal Neck supple, no JVD, thyroid normal and no carotid bruits General: trachea midline Resp normal respiratory effort, no retractions, no use of accessory muscles and clearto auscultation bilaterally Auscultation: Negative for rales, rhonchi or wheezes Cardio regular rate, regular rhythm, S1 normal heart sound, S2 normal heart sound, no murmurs, no rub and no gallops GI normal to inspection, nondistended, normoactive bowel sounds, soft to palpation,non-tender and non-distended Extremity no clubbing, cyanosis or edema Skin no rashes or lesions noted General Skin Exam: no breakdown Neuro CN's II-XII intact bilaterally, no focal motor deficits and no sensory deficits noted Sensorium / Orientation: awake, alert, oriented to person and oriented to place Speech: speech normal Psych affect normal Assessment & Plan Assessment/Plan (1) Rectus sheath hematoma: PLAN: Plan 1. Rectus sheath hematoma-patient's CBC will need to be monitored now that he is back on anticoagulation #2 acute anemia secondary to rectus sheath hematoma-not requiring blood transfusion, patient's hemoglobin today was 9.5 #3 VTE of the right leg-patient now has a vena caval filter, his heparin will bediscontinued #4 essential hypertension-patient will stay on his present medications for bloodpressure Total clinical time spent by myself addressing the patient's medical issues, reviewing all of his data, and collaborating with patient's care team: 35 minutes Charges/Coding Visit Charges Inpatient E&M: 66483 Subs Hosp L2 11/05/24 1622 Cosigner Signature (if applicable): CC: ~ Signed [facility]06-23-2025 Procedure note [facility] Medical Records Department [address] [place] [address] Operative Report 11/05/24 1553 MR#: [id number] Acct: [id number] Name: DORIAN CRAMER Rep #:[id number] : 1935 89 From: Santana Mason MD PCP: Dr. Shoshana Ulrich MD Status:ADM IN [facility] Oper[facility] Report (Standard) Operative Information Date of Procedure: 11/05/24 Pre-Operative Diagnosis: DVT, rectus sheath hematoma Post-Operative Diagnosis: same Surgery/Procedure Performed: insertion inferior vena cava filter prepared foods production team member: No Type of Anesthesia: Local and Sedation,Conscious Procedure Start Time: 15:00 Procedure Stop Time: 15:30 Select all DRAINS/GRAFTS/IMPLANTS that apply: Implanted device Implanted device details: Cook Celect filter Estimated Blood Loss: 2 Specimen collected: No Description of surgery: HPI: Patient is an 89-year-old male with a prior unprovoked extensive right lower extremity DVT whowas on Eliquis when he developed a spontaneous right rectus sheath hematoma. Repeat ultrasound revealed what appeared to be more acute appearing thrombus in the distal right lower extremity veins andgiven theamount of time surpassed since the original event is felt that a filter is appropriate. Heis taken now for IVC filter placement. Description of procedure: Upon obtaining informed consent and verification correct patient procedure and site the patient was taken to the Treater was positioned prepped and draped in usual sterile fashion. Time was performed consultation administered Versed and fentanyl. Skin overlying the right internal jugular vein was anesthetized 1% lidocaine the vessel accessed under ultrasound guidance with a micropuncture needle wire. This then exchanged for micropuncture sheath through which injectionvenogram was performed revealing satisfactory positioning no extravasation or dissection. Through the micropuncture sheath a J-wire was advanced however given angulation this was notable to traverse into the inferior vena cava so the J-wire was exchanged for a Glidewire which advanced with some redirecting into the inferior vena cava. Themicropuncture sheath was then exchanged for a straight flush catheter advanced over the wire and positioned in the inferior vena cava. In this location digitaltraction venacavogram was performed which revealed patent vena cava withnormal caliber though therewas significant displacement from the aorta secondary to spine scoliosis. Through the straight flush catheter the J-wire was advanced and the straight flush catheter exchanged for the dilator for thefilter delivery system. The dilator was then withdrawn and the filter delivery sheath advanced into position at the L2 vertebral body. Through the sheath subtraction venacavogram was performed and the confluence of the renal veins were marked. The Cook Celect filter was then advanced in position below the lowest renal vein and deployed. Completion venacavogram confirmed satisfactory position withno significant tilt. The sheath was then withdrawn a minute pressure held until hemostasis was obtai bear. The patient was then taken the recovery area prior to return to the medical floor. Surgical Findings: patent, normal caliber IVC; displaced by aorta/spine scoliosis filter below lowest renal vein Complications Complications: No 11/05/24 1600 Cosigner Signature (if applicable): CC: Dr. Raghav Serrano DO; Dr. Rand Rollins DO; Dr. Santana Mason MD; Dr. Shoshana Ulrich MD;Dr. Rylie Arreaga MD~ Signed [facility]06-23-2025 Consult note Author Santana Mason [facility] Note Date/Time November 05, 2024 10:1 2am [facility] Medical Records Department [address] [place] [address] Consultation - Surgical 11/05/24 1005 MR#: [id number] Acct: [id number] Name: DORIAN CRAMER Rep #:[id number] : 1935 89 From: Santana Mason MD PCP: Dr. Shoshana Ulrich MD Status:ADM IN Location: [facility] PD961-2 Assessment & Plan Assessment/Plan (1) DVT (deep venous thrombosis): QUALIFIERS: DVT location: lower extremity Affected thrombotic vein of extremity: popliteal Chronicity: acute Laterality: right Qualified Code(s): I82.431 - Acute embolism and thrombosis of right popliteal vein PLAN: -IVC filter HPI Consult Data Date of Consult: 11/05/24 HPI Narrative HPI Narrative: DORIAN CRAMER, is a 89 M who presents with right sided abdominal pain and foundto have rectus sheath hematoma. He is on Eliquis for unprovoked extensive RLE DVT in early June. Eliquis has been held since admission 11/02. Duplex revealed mostly chronic DVT with some acute thrombus in more distal vessels. Given interval since acute DVT which was unprovoked, the unprovoked rectus sheath bleed, and presence of acute component of thrombus he is felt to be appropriate for IVC filter placement. 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 Wears glasses Wears hearing aid in both ears Cancer Alcohol abuse Hx of gout Heartburn CPAP (continuous positive airway pressure) dependence Shortness of breath on exertion Smoker Emphysema, unspecified Hypertension Restless legs Injury of back Home Medications ?Medication ?Instructions ?Recorded ?Last Taken ?Type albuterol sulfate 90 mcg/actuation 1 puff inhalation Q 4H PRN 09/08/21 Unknown History aerosol inhaler sob/wheezing amlodipine 5 mg tablet 5 mg PO DAILY 07/02/2209/17 History artifi.tears(hypromellose)(PF) 1.7 1 drp EACH EYE KENDALL Y PRN dry eyes 09/19/23 Unknown History % eye drops with applicator oxybutynin chloride 10 mg 10 mg PO DAILY 09/19/23 Unkn own History tablet,extended release 24 hr nystatin 100,000 unit/gram topical 1 applic topical QD AY PRN yeast 07/13/24 Unknown History powder apixaban 5 mg tablet (Eliquis) 5 mg PO BID #180 tabs 0 07/25/24 Unknown Rx oxycodone-acetaminophen 5 mg-325 1 tab PO TID PRN PRN pain 11/02/24 Unknown History mg tablet Allergy/AdvReac Type Severity Reaction Status Date / Time ibuprofen (From Motrin) Allergy Swelling Verified 11/02/24 15:49 Family History Mother , 61 Cancer Father , 91 AD (Alzheimer's disease) Surgical History History of hand surgery S/P insertion of spinal cord stimulator History of varicose vein stripping Hx of myringotomy History of parotidectomy History of esophagogastroduodenoscopy (EGD) History of cystoscopy Hx of basal cell carcinoma excision Hx of finger joint replacement Hx of decompressive lumbar laminectomy Social History household members: spouse and none housing: house current occupational status: retired pets and animals: Yes pets and animals: dog(s) Smoking Status: Current every day smoker tobacco type: cigarettes alcohol intake: current details: On avg a couple drinks each evening substance use type: does not use caffeine: Yes Type: coffee Number of servings: 2 do you feel safe at home: Yes ROS Constitutional Constitutional: Denies chills, fever(s), frequent falls, lethargy or weakness Eyes Eyes: Denies blind spots, change in vision or loss of vision ENT HEENT: Denies bleeding gums, hoarseness or sore throat Cardiovascular Cardiovascular: Denies abdominal pain, bluish discoloration of hand/feet, chest pain with activity, claudication, cold extremities, cyanosis, dyspnea on exertion, erythema on extremities, irregular heart rhythm, leg edema, leg ulcers, numbness in extremities or weakness in extremities Respiratory/Chest Respiratory/Chest: Denies cough, excessive phlegm production, shortness of breath at rest, shortness of breath with exertion or wheezing Gastrointestinal Gastrointestinal: Reports abdominal pain; Denies anorexia, change in stool character, constipation, diarrhea, melena or rectal bleeding Genitourinary Genitourinary: Denies dysuria or hematuria Musculoskeletal Musculoskeletal: Denies abnormal gait Integumentary Integumentary: Reports other Details: ; Denies erythema, non-healing lesions or wounds Neurologic Neurologic: Denies abnormal speech, focal weakness, headache(s), loss of vision,numbness, paresthesias or sensory deficit Hematologic/Lymphatic Hematologic/Lymphatic: Denies easy bleeding, easy bruising or lymphadenopathy Physical Exam Const alert, oriented x3, no apparent distress and healthy appearing General Appearance: cooperative; Negative for combative or lethargic Orientation / Consciousness: awake Exam Limitations: no limitations HEENT Head and Scalp: normocephalic and atraumatic Eyes EOMs intact bilaterally General Eye: normal appearance of both eyes Neck full ROM General: trachea midline Resp normal respiratory effort and no use of accessory muscles Effort and Inspection: Negative for labored, stridor or audible wheezes Cardio regular rate and regular rhythm Peripheral Pulses: femoral pulses present GI non-distended Palpation: tender Back/Spine Cervical Spine: cervical ROM normal Extremity full ROM, normal capillary refill and no clubbing, cyanosis or edema Skin no rashes or lesions noted and no wounds Neuro oriented x3, CN's II-XII intact bilaterally, no focal motor deficits and no sensory deficits noted Psych thought process normal, cooperative, affect normal, speech normal and activity/motor behavior normal Lab / Micro Data 11/05/24 03:14 11/04/24 05:25 Labs: Laboratory Results - last 24 hr 11/04/24 14:00: PT 12.4, INR 0.9, APTT 24.9 11/04/24 21:15: WBC 5.1, RBC 2.84 L, Hgb 9.6 L, Hct 29.2 L, MCV 102.8 H, MCH 33.8 H, MCHC 32.9, RDW Std Deviation 61.1 H, RDW Coeff of Beth 16.0 H, Plt Count 183, MPV 10.4, Immature Gran % (Auto) 1.200 H, Neut % (Auto) 74.7 H, Lymph % (Auto) 13.8 L, [place] % (Auto) 7.6, Eos % (Auto) 2.3, Baso % (Auto) 0.4, Absolute Neuts (auto) 3.8, Absolute Lymphs (auto) 0.71 L, Nucleated RBC % 0, APTT 62.0 H 11/05/24 03:14: WBC 4.7, RBC 2.76 L, Hgb 9.5 L, Hct 28.2 L, MCV 102.2 H, MCH 34.4 H, MCHC 33.7, RDW Std Deviation 60.4 H, RDW Coeff of Beth 16.0 H, Plt Count 172, MPV 10.2, Immature Gran % (Auto) 1.100 H, Neut % (Auto) 71.6 H, Lymph % (Auto) 17.0 L, [place] % (Auto) 7.4, Eos % (Auto) 2.5, Baso % (Auto) 0.4, Absolute Neuts (auto) 3.4, Absolute Lymphs (auto) 0.80 L, Nucleated RBC % 0, APTT 79.5 H,Triglycerides 89, Cholesterol 187, LDL Cholesterol, Calc 104, VLDL Cholesterol 18, HDL Cholesterol 65, Cholesterol/HDL Ratio 2.87 11/05/24 1012 <Electronically signed by Santana Mason MD> Cosigner Signature (if applicable): CC: Dr. Rand Rollins DO; Dr. Shoshana Ulrich MD~ Signed [facility] Work Phone: [phone] Consult note [facility] Medical Records Department [address] [place] [address] Consultation - Surgical 11/05/24 1005 MR#: [id number] Acct: [id number] Name: DORIAN CRAMER Rep #:[id number] : 1935 89 From: Santana Mason MD PCP: Dr. Shoshana Ulrich MD Status:ADM IN Location: MS3 [id number] Assessment & Plan Assessment/Plan (1) DVT (deep venous thrombosis): QUALIFIERS: DVT location: lower extremity Affected thrombotic vein of extremity: popliteal Chronicity: acute Laterality: right Qualified Code(s): I82.431 - Acute embolism and thrombosis of right popliteal vein PLAN: -IVC filter HPI Consult Data Date of Consult: 11/05/24 HPI Narrative HPI Narrative: DORIAN CRAMER, is a 89 M who presents with right sided abdominal pain and foundto have rectus sheath hematoma. He is on Eliquis for unprovoked extensive RLE DVT in early June. Eliquis has been held since admission 11/02. Duplex revealed mostly chronic DVT with some acute thrombus in more distalvessels. Given interval since acute DVT which was unprovoked, the unprovoked rectus sheath bleed, and presence of acute component of thrombus he is felt to be appropriate for IVC filter placement. 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 Wears glasses Wears hearing aid in both ears Cancer Alcohol abuse Hx of gout Heartburn CPAP (continuous positive airway pressure) dependence Shortness of breath on exertion Smoker Emphysema, unspecified Hypertension Restless legs Injury of back Home Medications ?Medication ?Instructions ?Recorded ?Last Taken ?Type albuterol sulfate 90 mcg/actuation 1 puff inhalation Q 4H PRN 09/08/21 Unknown History aerosol inhaler sob/wheezing amlodipine 5 mg tablet 5 mg PO DAILY 07/02/2209/17 History artifi.tears(hypromellose)(PF) 1.7 1 drp EACH EYE KENDALL Y PRN dry eyes 09/19/23 Unknown History % eye drops with applicator oxybutynin chloride 10 mg 10 mg PO DAILY 09/19/23 Unkn own History tablet,extended release 24 hr nystatin 100,000 unit/gram topical 1 applic topical QD AY PRN yeast 07/13/24 Unknown History powder apixaban 5 mg tablet (Eliquis) 5 mg PO BID #180 tabs 0 07/25/24 Unknown Rx oxycodone-acetaminophen 5 mg-325 1 tab PO TID PRN PRN pain 11/02/24 Unknown History mg tablet Allergy/AdvReac Type Severity Reaction Status Date / Time ibuprofen (From Motrin) Allergy Swelling Verified 11/02/24 15:49 Family History Mother , 61 Cancer Father , 91 AD (Alzheimer's disease) Surgical History History of hand surgery S/P insertion of spinal cord stimulator History of varicose vein stripping Hx of myringotomy History of parotidectomy History of esophagogastroduodenoscopy (EGD) History of cystoscopy Hx of basal cell carcinoma excision Hx of finger joint replacement Hx of decompressive lumbar laminectomy Social History household members: spouse and none housing: house current occupational status: retired pets and animals: Yes pets and animals: dog(s) Smoking Status: Current every day smoker tobacco type: cigarettes alcohol intake: current details: On avg a couple drinks each evening substance use type: does not use caffeine: Yes Type: coffee Number of servings: 2 do you feel safe at home: Yes ROS Constitutional Constitutional: Denies chills, fever(s), frequent falls, lethargy or weakness Eyes Eyes: Denies blind spots, change in vision or loss of vision ENT HEENT: Denies bleeding gums, hoarseness or sore throat Cardiovascular Cardiovascular: Denies abdominal pain, bluish discoloration of hand/feet, chest pain with activity,claudication, cold extremities, cyanosis, dyspnea on exertion, erythema on extremities, irregular heart rhythm, leg edema, leg ulcers, numbness in extremities or weakness in extremities Respiratory/Chest Respiratory/Chest: Denies cough, excessive phlegm production, shortness of breath at rest, shortness of breath with exertion or wheezing Gastrointestinal Gastrointestinal: Reports abdominal pain; Denies anorexia, change in stool character, constipation,diarrhea, melena or rectal bleeding Genitourinary Genitourinary: Denies dysuria or hematuria Musculoskeletal Musculoskeletal: Denies abnormal gait Integumentary Integumentary: Reports other Details: ; Denies erythema, non-healing lesions or wounds Neurologic Neurologic: Denies abnormal speech, focal weakness, headache(s), loss of vision,numbness, paresthesias or sensory deficit Hematologic/Lymphatic Hematologic/Lymphatic: Denies easy bleeding, easy bruising or lymphadenopathy Physical Exam Const alert, oriented x3, no apparent distress and healthy appearing General Appearance: cooperative; Negative for combative or lethargic Orientation / Consciousness: awake Exam Limitations: no limitations HEENT Head and Scalp: normocephalic and atraumatic Eyes EOMs intact bilaterally General Eye: normal appearance of both eyes Neck full ROM General: trachea midline Resp normal respiratory effort and no use of accessory muscles Effort and Inspection: Negative for labored, stridor or audible wheezes Cardio regular rate and regular rhythm Peripheral Pulses: femoral pulses present GI non-distended Palpation: tender Back/Spine Cervical Spine: cervical ROM normal Extremity full ROM, normal capillary refill and no clubbing, cyanosis or edema Skin no rashes or lesions noted and no wounds Neuro oriented x3, CN's II-XII intact bilaterally, no focal motor deficits and no sensory deficits noted Psych thought process normal, cooperative, affect normal, speech normal and activity/motor behavior normal Lab / Micro Data 11/05/24 03:14 11/04/24 05:25 Labs: Laboratory Results - last 24 hr 11/04/24 14:00: PT 12.4, INR 0.9, APTT 24.9 11/04/24 21:15: WBC 5.1, RBC 2.84 L, Hgb 9.6 L, Hct 29.2 L, MCV 102.8 H, MCH 33.8 H, MCHC 32.9, RDWStd Deviation 61.1 H, RDW Coeff of Beth 16.0 H, Plt Count 183, MPV 10.4, Immature Gran % (Auto) 1.200 H, Neut % (Auto) 74.7 H, Lymph % (Auto) 13.8 L, [place] % (Auto) 7.6, Eos % (Auto) 2.3, Baso % (Auto)0.4, Absolute Neuts (auto) 3.8, Absolute Lymphs (auto) 0.71 L, Nucleated RBC % 0, APTT 62.0 H 11/05/24 03:14: WBC 4.7, RBC 2.76 L, Hgb 9.5 L, Hct 28.2 L, MCV 102.2 H, MCH 34.4 H, MCHC 33.7, RDWStd Deviation 60.4 H, RDW Coeff of Beth 16.0 H, Plt Count 172, MPV 10.2, Immature Gran % (Auto) 1.100 H, Neut % (Auto) 71.6 H, Lymph % (Auto) 17.0 L, [place] % (Auto) 7.4, Eos % (Auto) 2.5, Baso % (Auto)0.4, Absolute Neuts (auto) 3.4, Absolute Lymphs (auto) 0.80 L, Nucleated RBC % 0, APTT 79.5 H,Triglycerides 89, Cholesterol 187, LDL Cholesterol, Calc 104, VLDL Cholesterol 18, HDL Cholesterol 65, Cholesterol/HDL Ratio 2.87 11/05/24 1012 Cosigner Signature (if applicable): CC: Dr. Rand Rollins DO; Dr. Shoshana Ulrich MD~ Signed [facility]06-22-2025 Progress note Author Daniel [facility] Note Date/Time November 04, 2024 5:27 pm [facility] Medical Records Department [address] [place] [address] Progress Note - Hospitalist 11/04/24 1723 MR#: [id number] Acct: [id number] Name: DORIAN CRAMER Rep #:[id number] : 1935 89 From: Daniel Neal DO PCP: Dr. Shoshana Ulrich MD Status:ADM [place] [facility] [place] Reason for Visit Reason for Visit: Diagnoses Contusion of abdominal wall, initial encounter (11/03/24) Subjective Subjective Patient was seen and examined today, earlier today he appeared to be confused and thought he was being discharged home. When I asked the patient why he thought he was being discharged he acted confused and was unable to answer. Patient underwent a venous duplex scan today which showed a clot in his right leg, this clot appeared to be Frasch and I talked with vascular surgery about itand they recommended starting the patient on heparin using the stroke dose protocol. I went over this finding with the patient and told him that we neededto place him back on anticoagulation. I ordered a CBC for later on today. Patient will need to have a vena caval filter inserted tomorrow. I have consulted vascular surgery about this. Objective Data Objective Data Vital Signs: Vital Signs Temp Pulse Resp BP Pulse Ox O2 Del Method O2 Flow Rate 97.5 F L 70 20 H 121/71 H 95 Room Air 2 11/04/24 14:46 11/04/24 14:49 11/04/24 14:46 11/04/24 14:46 11/04/24 14:46 11/04/24 14:46 11/04/24 07:43 Oxygen Flow Rate (L/min) 2 Oxygen Delivery Method Room Air Weight: 66.361 kg Body Mass Index (BMI) 24.3 Intake & Output: Intake and Output for Last 24 Hours 11/02/24 11/03/24 11/04/24 23:59 23:59 23:59 Intake Total 1150 / 1150 150 / 350 350 / 350 Output Total 900 / 900 Balance 1150 / 1150 150 / -250 -550 / -550 Lab / Micro Data 11/04/24 05:25 11/04/24 05:25 Labs: Laboratory Results - last 24 hr 11/04/24 05:25: WBC 5.3, RBC 2.95 L, Hgb 10.2 L, Hct 30.6 L, MCV 103.7 H, MCH 34.6 H, MCHC 33.3, RDW Std Deviation 62.0 H, RDW Coeff of Beth 16.4 H, Plt Count 182, MPV 10.5, Sodium 133, Potassium 4.4, Chloride 98, Carbon Dioxide 27.2, Anion Gap 8, BUN 21 H, Creatinine 1.08, Estim Creat Clear Calc 41.92 L, Est GFR (MDRD) Non-Af 66, BUN/Creatinine Ratio 19.5, Glucose 96, Calcium 8.3 11/04/24 14:00: PT 12.4, INR 0.9, APTT 24.9 Physical Exam Const alert and no apparent distress General Appearance: cooperative, well kempt and well developed Orientation / Consciousness: awake, oriented to person and oriented to place HEENT normocephalic, head/scalp atraumatic and moist oral mucous membranes Eyes PERRL, EOMs intact bilaterally and conjunctivae normal Neck supple, no JVD, thyroid normal and no carotid bruits General: trachea midline Resp normal respiratory effort, no retractions, no use of accessory muscles and clearto auscultation bilaterally Auscultation: Negative for rales, rhonchi or wheezes Cardio regular rate, regular rhythm, S1 normal heart sound, S2 normal heart sound, no murmurs, no rub and no gallops GI normal to inspection, nondistended, normoactive bowel sounds, soft to palpation,non-tender and non-distended Extremity no clubbing, cyanosis or edema Skin no rashes or lesions noted General Skin Exam: no breakdown Neuro CN's II-XII intact bilaterally, no focal motor deficits and no sensory deficits noted Sensorium / Orientation: awake, alert, oriented to person and oriented to place Speech: speech normal Psych affect normal Assessment & Plan Assessment/Plan (1) Rectus sheath hematoma: PLAN: Plan 1. Rectus sheath hematoma-patient's CBC will need to be monitored now that he is back on anticoagulation #2 acute anemia secondary to rectus sheath hematoma-not requiring blood transfusion, patient's hemoglobin today was 10.2 #3 VTE of the right leg-patient will be started on stroke dose heparin IV, PTT will be monitored, patient will need a vena caval filter inserted tomorrow #4 essential hypertension-patient will stay on his present medications for bloodpressure Total clinical time spent by myself addressing the patient's medical issues, reviewing all of his data, and collaborating with patient's care team: 35 minutes Charges/Coding Visit Charges Inpatient E&M: 48588 Subs Hosp L2 11/04/24 1727 <Electronically signed by Daniel Neal DO> Cosigner Signature (if applicable): CC: ~ Signed [facility] Work Phone: 1(407) 403-956406-22-2025 Progress note [facility] Medical Records Department [address] [place] [address] Progress Note - Hospitalist 11/04/24 1723 MR#: [id number] Acct: [id number] Name: DORIAN CRAMER Rep #:[id number] : 1935 89 From: Daniel Neal DO PCP: Dr. Shoshana Ulrich MD Status:ADM IN Location: NC3 [id number] Reason for Visit Reason for Visit: Diagnoses Contusion of abdominal wall, initial encounter (11/03/24) Subjective Subjective Patient was seen and examined today, earlier today he appeared to be confused and thought he was being discharged home. When I asked the patient why he thought he was being discharged he acted confused and was unable to answer. Patient underwent a venous duplex scan today which showed a clot in hisright leg, this clot appeared to be Frasch and I talked with vascular surgery about itand they recommended starting the patient on heparin using the stroke dose protocol. I went over this finding with the patient and told him that we neededto place him back on anticoagulation. I ordered a CBC for later on today. Patient will need to have a vena caval filter inserted tomorrow. I have consulted vascular surgery about this. Objective Data Objective Data Vital Signs: Vital Signs Temp Pulse Resp BP Pulse Ox O2 Del Method O2 Flow Rate 97.5 F L 70 20 H 121/71 H 95 Room Air 2 11/04/24 14:46 11/04/24 14:49 11/04/24 14:46 11/04/24 14:46 11/04/24 14:46 11/04/24 14:46 11/04/24 07:43 Oxygen Flow Rate (L/min) 2 Oxygen Delivery Method Room Air Weight: 66.361 kg Body Mass Index (BMI) 24.3 Intake & Output: Intake and Output for Last 24 Hours 11/02/24 11/03/24 11/04/24 23:59 23:59 23:59 Intake Total 1150 / 1150 150 / 350 350 / 350 Output Total 900 / 900 Balance 1150 / 1150 150 / -250 -550 / -550 Lab / Micro Data 11/04/24 05:25 11/04/24 05:25 Labs: Laboratory Results - last 24 hr 11/04/24 05:25: WBC 5.3, RBC 2.95 L, Hgb 10.2 L, Hct 30.6 L, MCV 103.7 H, MCH 34.6 H, MCHC 33.3, RDW Std Deviation 62.0 H, RDW Coeff of Beth 16.4 H, Plt Count 182, MPV 10.5, Sodium 133, Potassium 4.4,Chloride 98, Carbon Dioxide 27.2, Anion Gap 8, BUN 21 H, Creatinine 1.08, Estim Creat Clear Calc 41.92 L, Est GFR (MDRD) Non-Af 66, BUN/Creatinine Ratio 19.5, Glucose 96, Calcium 8.3 11/04/24 14:00: PT 12.4, INR 0.9, APTT 24.9 Physical Exam Const alert and no apparent distress General Appearance: cooperative, well kempt and well developed Orientation / Consciousness: awake, oriented to person and oriented to place HEENT normocephalic, head/scalp atraumatic and moist oral mucous membranes Eyes PERRL, EOMs intact bilaterally and conjunctivae normal Neck supple, no JVD, thyroid normal and no carotid bruits General: trachea midline Resp normal respiratory effort, no retractions, no use of accessory muscles and clearto auscultation bilaterally Auscultation: Negative for rales, rhonchi or wheezes Cardio regular rate, regular rhythm, S1 normal heart sound, S2 normal heart sound, no murmurs, no rub and no gallops GI normal to inspection, nondistended, normoactive bowel sounds, soft to palpation,non-tender and non-distended Extremity no clubbing, cyanosis or edema Skin no rashes or lesions noted General Skin Exam: no breakdown Neuro CN's II-XII intact bilaterally, no focal motor deficits and no sensory deficits noted Sensorium / Orientation: awake, alert, oriented to person and oriented to place Speech: speech normal Psych affect normal Assessment & Plan Assessment/Plan (1) Rectus sheath hematoma: PLAN: Plan 1. Rectus sheath hematoma-patient's CBC will need to be monitored now that he is back on anticoagulation #2 acute anemia secondary to rectus sheath hematoma-not requiring blood transfusion, patient's hemoglobin today was 10.2 #3 VTE of the right leg-patient will be started on stroke dose heparin IV, PTT will be monitored, patient will need a vena caval filter inserted tomorrow #4 essential hypertension-patient will stay on his present medications for bloodpressure Total clinical time spent by myself addressing the patient's medical issues, reviewing all of his data, and collaborating with patient's care team: 35 minutes Charges/Coding Visit Charges Inpatient E&M: 53041 Subs Hosp L2 11/04/24 8639 Cosigner Signature (if applicable): CC: ~ Signed [facility]06-22-2025 Discharge summary Author Rand Rollins [facility] Note Date/Time November 04, 2024 7:35 am [facility] Medical Records Department [address] [place] [address] Emergency Department Summary 11/02/24 MR#: [id number] Acct: [id number] Name: DORIAN CRAMER Rep #:[id number] : 1935 89 From: Rand Ballard PCP: Dr. Shoshana Ulrich MD Status:ADM IN Location: NC3 JE616-8 HPI <AARON Benítez - Last Filed: 11/02/24 20:52> History of Present Illness Chief Complaint: Constipation Narrative Narrative: 89-year-old male with PMH of HTN, DVT on Eliquis presents with abdominal pain. Over the last 3 days he has had right lower abdominal pain and constipation. Henoticed the area is swollen and bruised on his abdomen and denies trauma. He usually has a bowel movement daily so he thought the pain was from constipation and tried milk of magnesia and a fleets enema without improvement. He has no fever chills nausea or vomiting. He is still urinating normally. No abdominal surgical history. He states he had a colonoscopy a couple years ago which showed benign polyps. He has no history of bowel obstruction. He is on oxycodone 2-3 times daily for chronic back pain. 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 Wears glasses Wears hearing aid in both ears Cancer Alcohol abuse Hx of gout Heartburn CPAP (continuous positive airway pressure) dependence Shortness of breath on exertion Smoker Emphysema, unspecified Hypertension Restless legs Injury of back Home Medications ?Medication ?Instructions ?Recorded ?Last Taken ?Type albuterol sulfate 90 mcg/actuation 1 puff inhalation Q 4H PRN 09/08/21 Unknown History aerosol inhaler sob/wheezing amlodipine 5 mg tablet 5 mg PO DAILY 07/02/2209/17 History artifi.tears(hypromellose)(PF) 1.7 1 drp EACH EYE KENDALL Y PRN dry eyes 09/19/23 Unknown History % eye drops with applicator oxybutynin chloride 10 mg 10 mg PO DAILY 09/19/23 Unkn own History tablet,extended release 24 hr nystatin 100,000 unit/gram topical 1 applic topical QD AY PRN yeast 07/13/24 Unknown History powder apixaban 5 mg tablet (Eliquis) 5 mg PO BID #180 tabs 0 07/25/24 Unknown Rx oxycodone-acetaminophen 5 mg-325 1 tab PO TID PRN PRN pain 11/02/24 Unknown History mg tablet Allergy/AdvReac Type Severity Reaction Status Date / Time ibuprofen (From Motrin) Allergy Swelling Verified 11/02/24 15:49 Family History Mother , 61 Cancer Father , 91 AD (Alzheimer's disease) Surgical History History of hand surgery S/P insertion of spinal cord stimulator History of varicose vein stripping Hx of myringotomy History of parotidectomy History of esophagogastroduodenoscopy (EGD) History of cystoscopy Hx of basal cell carcinoma excision Hx of finger joint replacement Hx of decompressive lumbar laminectomy Social History household members: spouse and none housing: house current occupational status: retired pets and animals: Yes pets and animals: dog(s) Smoking Status: Current every day smoker tobacco type: cigarettes alcohol intake: current details: On avg a couple drinks each evening substance use type: does not use caffeine: Yes Type: coffee Number of servings: 2 do you feel safe at home: Yes ROS <AARON Benítez - Last Filed: 11/02/24 20:52> ROS ED ROS Narrative Constitutional: Negative for fever, chills, malaise. CVS: Negative for chest pain. Respiratory: Negative for shortness of breath. GI: Positive for abdominal pain, constipation. Negative for nausea, vomiting, melena, hematochezia. : Negative for dysuria. EXAM <AARON Benítez - Last Filed: 11/02/24 20:52> Physical Exam Narrative Exam Narrative: CONST: Patient sitting in no acute distress. EYES: Normal inspection. NECK: Normal inspection. RESP: No respiratory distress, CTAB. CVS: Regular rate and rhythm, no murmur, no gallop. ABD: Palpable tender mass right of the umbilicus with overlying bruising. The rest of his abdomen is soft and nontender. He also has bruising across the right lateral abdomen. No distention. No rigidity. SKIN: Color normal, no rash, warm, dry, intact. EXTREMITIES: Normal appearance, no pedal edema. NEURO: Alert and answering questions appropriately. PSYCH: Normal affect. Const Vital Signs: 11/03/24 08:25 11/03/24 08:25 11/03/24 08:26 Temperature Temperature Source Pulse Rate Pulse Strength Normal (2+) Respiratory Rate Respiratory Effort Normal Non-Labored Respiratory Depth Normal Respiratory Pattern Normal Blood Pressure Blood Pressure Mean Blood Pressure Source Blood Pressure Position Blood Pressure Location Pulse Ox 88 Oxygen Delivery Method Nasal Cannula Room Air Oxygen Flow Rate (L/min) 2 11/03/24 08:27 11/03/24 13:54 11/03/24 14:05 Temperature 97.9 F Temperature Source Oral Pulse Rate 61 Pulse Strength Respiratory Rate 18 Respiratory Effort Normal Non-Labored Respiratory Depth Normal Respiratory Pattern Normal Blood Pressure 107/68 Blood Pressure Mean 81 Blood Pressure Source Monitor Blood Pressure Position Sitting Blood Pressure Location Left Arm Pulse Ox 94 94 95 Oxygen Delivery Method Nasal Cannula Room Air Nasal Cannula Oxygen Flow Rate (L/min) 2 2 11/03/24 14:07 11/03/24 14:26 Temperature 98.4 F Temperature Source Oral Pulse Rate 67 Pulse Strength Respiratory Rate 18 Respiratory Effort Respiratory Depth Respiratory Pattern Blood Pressure 122/64 H Blood Pressure Mean 83 Blood Pressure Source Monitor Blood Pressure Position Semi-Fowlers Blood Pressure Location Left Arm Pulse Ox 94 Oxygen Delivery Method Room Air Room Air Oxygen Flow Rate (L/min) <Dr. Rand Rollins, DO - Last Filed: 11/04/24 07:35> Physical Exam Const Vital Signs: 11/03/24 08:25 11/03/24 08:25 11/03/24 08:26 Temperature Temperature Source Pulse Rate Pulse Strength Normal (2+) Respiratory Rate Respiratory Effort Normal Non-Labored Respiratory Depth Normal Respiratory Pattern Normal Blood Pressure Blood Pressure Mean Blood Pressure Source Blood Pressure Position Blood Pressure Location Pulse Ox 88 Oxygen Delivery Method Nasal Cannula Room Air Oxygen Flow Rate (L/min) 2 11/03/24 08:27 11/03/24 13:54 11/03/24 14:05 Temperature 97.9 F Temperature Source Oral Pulse Rate 61 Pulse Strength Respiratory Rate 18 Respiratory Effort Normal Non-Labored Respiratory Depth Normal Respiratory Pattern Normal Blood Pressure 107/68 Blood Pressure Mean 81 Blood Pressure Source Monitor Blood Pressure Position Sitting Blood Pressure Location Left Arm Pulse Ox 94 94 95 Oxygen Delivery Method Nasal Cannula Room Air Nasal Cannula Oxygen Flow Rate (L/min) 2 2 11/03/24 14:07 11/03/24 14:26 Temperature 98.4 F Temperature Source Oral Pulse Rate 67 Pulse Strength Respiratory Rate 18 Respiratory Effort Respiratory Depth Respiratory Pattern Blood Pressure 122/64 H Blood Pressure Mean 83 Blood Pressure Source Monitor Blood Pressure Position Semi-Fowlers Blood Pressure Location Left Arm Pulse Ox 94 Oxygen Delivery Method Room Air Room Air Oxygen Flow Rate (L/min) [facility] <AARON Benítez - Last Filed: 11/02/24 20:52> [facility] Narrative Medical decision making narrative: Consults: Hospitalist, general surgery Differential includes but not limited to incarcerated hernia, constipation, obstruction 89-year-old male has right lower abdominal pain and swelling over the last 3 days. There is also overlying bruising. No trauma. He is on Eliquis for history of DVT. He appears well and nontoxic. Vital stable. He has a right mid to lower abdominal mass that is significantly tender with overlying bruising. It is hard to delineate if this is a hernia. He has no peritoneal signs. WBC is normal at 7.5. Hemoglobin 11.4 is stable. BMP overall unremarkable. Lactic 1.4. CT scan shows a rectus sheath hematoma of the right lower abdominal wall measuring up to 6.7 cm. There is also a distended colon with air-fluid levels. It states it could be recent diarrhea or colonic ileus; he is not having bowel movements so ileus is more likely. Initially spoke with Dr. Serrano for admission and he asked that I consult surgery. I talked with Dr. Morrison states the typical treatment is holding anticoagulation and monitoring blood counts and if it worsens he requires IR intervention but it is not surgical. The hospitalist is comfortable with keeping him here for observation. Lab Data Attestation: I reviewed the patient's lab results. Labs: Laboratory Results - last 24 hr 11/03/24 06:45 Sodium 137 Potassium 4.9 Chloride 104 Carbon Dioxide 25.7 Anion Gap 7 BUN 24 H Creatinine 1.18 Estim Creat Clear Calc 38.37 L Est GFR (MDRD) Non-Af 60 BUN/Creatinine Ratio 20.4 H Glucose 116 H Calcium 8.2 Radiography Diagnostic Testing: Clinical Impression(s) from Imaging Studies Abdomen/Pelvis CT 11/02/24 17:05 IMPRESSION: 1. Isodense lesion of the right aspect of the lower anterior abdominal wall measuring up to 6.7 cm. This could be a rectus sheath hematoma. 2. Distended colon with air-fluid levels measuring up to 8.1 cm in diameter could represent recent diarrhea. Colonic ileus can not be excluded. 3. Hepatomegaly with fatty infiltration. 4. Right nephrolithiasis without hydronephrosis. 5. Inguinal hernias, bilaterally. 6. Right basilar atelectasis with nodular configuration. Repeat chest CT in 3 months is recommended. 7. Colonic diverticulosis without acute diverticulitis. Reading Location: [facility] <Dr. Rand Rollins, - Last Filed: 11/04/24 07:35> [facility] Lab Data Labs: Laboratory Results - last 24 hr 11/03/24 06:45 Sodium 137 Potassium 4.9 Chloride 104 Carbon Dioxide 25.7 Anion Gap 7 BUN 24 H Creatinine 1.18 Estim Creat Clear Calc 38.37 L Est GFR (MDRD) Non-Af 60 BUN/Creatinine Ratio 20.4 H Glucose 116 H Calcium 8.2 Radiography Diagnostic Testing: Clinical Impression(s) from Imaging Studies Abdomen/Pelvis CT 11/02/24 17:05 IMPRESSION: 1. Isodense lesion of the right aspect of the lower anterior abdominal wall measuring up to 6.7 cm. This could be a rectus sheath hematoma. 2. Distended colon with air-fluid levels measuring up to 8.1 cm in diameter could represent recent diarrhea. Colonic ileus can not be excluded. 3. Hepatomegaly with fatty infiltration. 4. Right nephrolithiasis without hydronephrosis. 5. Inguinal hernias, bilaterally. 6. Right basilar atelectasis with nodular configuration. Repeat chest CT in 3 months is recommended. 7. Colonic diverticulosis without acute diverticulitis. Reading Location: [facility] Treatment and Re-Evaluation :: I have personally performed a face to face assessment of the patient and have reviewed the CATE Note. I performed a substantive portion of the visit including all aspects of the following. My luther findings include: History is patient is a 9-year-old male with history of DVT on Eliquis as well as hypertension presenting with abdominal pain and constipation. He states his last bowel movement was about 4 days ago. States he has been passing some gas. Is having pain especially in his right lower quadrant.'s has associated bruisingand was not sure how long it has been there. Denies any trauma to the area. Denies any nausea or vomiting. No fever or chills reported. Denies any historyof abdominal surgeries. Does take chronic oxycodone for back pain. On exam patient is uncomfortable appearing but no acute distress. Hemodynamically stable. Blood pressure slightly on the soft side. Is mentatingappropriately. Heart regular rate and rhythm. Lungs [place] station. Head atraumatic normocephalic. Abdomen mildly distended. There is tenderness and significant ecchymosis noted to the right lower quadrant. There is swelling however slightly irregular. Question if there is incarcerated hernia versus mass. Normal extremities. ANO x 4. No focal neurologic deficits appreciated. Skin exam?ecchymosis scattered over the abdominal wall more so on the right lower quadrant. Differential includes incarcerated hernia, abdominal wall trauma, constipation, ileus, small bowel obstruction. Patient is given multiple doses of IV pain medication for his discomfort. CT of the abdomen pelvis shows rectus sheath hematoma of the lower anterior abdominal wall measuring up to 6.7 cm. There is also colonic ileus versus distended colon with air-fluid levels measuring up to 8.1 cm. Lab work shows a mild anemia hemoglobin 11.4 however this is near his baseline. Normal white blood cell count. CMP and lactate largely unremarkable. Case discussed with hospitalist and general surgery. Will hold Eliquis and monitor for hemodynamic stability. Will be admitted for suspected spontaneous abdominal hematoma. Other additions or changes: [None] Discharge Plan Dx/Rx/DC Orders Clinical Impression: Rectus sheath hematoma, Abdominal pain, Anticoagulant long-term use, Constipation Disposition Disposition: Acute Care Hospital [facility] Discharge Date/Time: 11/02/24 19:51 What to do if you have Problems For any increased pain, shortness of breath, bleeding, nausea or vomiting, chest pain, or any unexpected problems, contact your Primary Care Provider. Call [facility] ([phone]) or report to the closest Emergency Room. Call 911 if necessary. 11/04/24 0735 <Electronically signed by Rand Rollins DO> Cosigner Signature (if applicable): 11/02/242051 <Electronically signed by Manju WALKER> CC: Dr. Shoshana Ulrich MD ~ Signed [facility] Work Phone: 1(758) 285-396906-22-2025 Discharge summary [facility] Medical Records Department [address] [place] [address] Emergency Department Summary 11/02/24 MR#: [id number] Acct: [id number] Name: DORIAN CRAMER Rep #:[id number] : 1935 89 From: Rand Ballard PCP: Dr. Shoshana Ulrich MD Status:ADM IN Location: [place] [address] HPI History of Present Illness Chief Complaint: Constipation Narrative Narrative: 89-year-old male with PMH of HTN, DVT on Eliquis presents with abdominal pain. Over the last 3 dayshe has had right lower abdominal pain and constipation. Henoticed the area is swollen and bruised on his abdomen and denies trauma. He usually has a bowel movement daily so he thought the pain was from constipation and tried milk of magnesia and a fleets enema without improvement. He has no fever chills nausea or vomiting. He is still urinating normally. No abdominal surgical history. He states he had a colonoscopy a couple years ago which showed benign polyps. He has no history of bowel obstruction. He is on oxycodone 2-3 times daily for chronic back pain. 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 Wears glasses Wears hearing aid in both ears Cancer Alcohol abuse Hx of gout Heartburn CPAP (continuous positive airway pressure) dependence Shortness of breath on exertion Smoker Emphysema, unspecified Hypertension Restless legs Injury of back Home Medications ?Medication ?Instructions ?Recorded ?Last Taken ?Type albuterol sulfate 90 mcg/actuation 1 puff inhalation Q 4H PRN 09/08/21 Unknown History aerosol inhaler sob/wheezing amlodipine 5 mg tablet 5 mg PO DAILY 07/02/2209/17 History artifi.tears(hypromellose)(PF) 1.7 1 drp EACH EYE KENDALL Y PRN dry eyes 09/19/23 Unknown History % eye drops with applicator oxybutynin chloride 10 mg 10 mg PO DAILY 09/19/23 Unkn own History tablet,extended release 24 hr nystatin 100,000 unit/gram topical 1 applic topical QD AY PRN yeast 07/13/24 Unknown History powder apixaban 5 mg tablet (Eliquis) 5 mg PO BID #180 tabs 0 07/25/24 Unknown Rx oxycodone-acetaminophen 5 mg-325 1 tab PO TID PRN PRN pain 11/02/24 Unknown History mg tablet Allergy/AdvReac Type Severity Reaction Status Date / Time ibuprofen (From Motrin) Allergy Swelling Verified 11/02/24 15:49 Family History Mother , 61 Cancer Father , 91 AD (Alzheimer's disease) Surgical History History of hand surgery S/P insertion of spinal cord stimulator History of varicose vein stripping Hx of myringotomy History of parotidectomy History of esophagogastroduodenoscopy (EGD) History of cystoscopy Hx of basal cell carcinoma excision Hx of finger joint replacement Hx of decompressive lumbar laminectomy Social History household members: spouse and none housing: house current occupational status: retired pets and animals: Yes pets and animals: dog(s) Smoking Status: Current every day smoker tobacco type: cigarettes alcohol intake: current details: On avg a couple drinks each evening substance use type: does not use caffeine: Yes Type: coffee Number of servings: 2 do you feel safe at home: Yes ROS ROS ED ROS Narrative Constitutional: Negative for fever, chills, malaise. CVS: Negative for chest pain. Respiratory: Negative for shortness of breath. GI: Positive for abdominal pain, constipation. Negative for nausea, vomiting, melena, hematochezia. : Negative for dysuria. EXAM Physical Exam Narrative Exam Narrative: CONST: Patient sitting in no acute distress. EYES: Normal inspection. NECK: Normal inspection. RESP: No respiratory distress, CTAB. CVS: Regular rate and rhythm, no murmur, no gallop. ABD: Palpable tender mass right of the umbilicus with overlying bruising. The rest of his abdomen is soft and nontender. He also has bruising across the right lateral abdomen. No distention. No rigidity. SKIN: Color normal, no rash, warm, dry, intact. EXTREMITIES: Normal appearance, no pedal edema. NEURO: Alert and answering questions appropriately. PSYCH: Normal affect. Const Vital Signs: 11/03/24 08:25 11/03/24 08:25 11/03/24 08:26 Temperature Temperature Source Pulse Rate Pulse Strength Normal (2+) Respiratory Rate Respiratory Effort Normal Non-Labored Respiratory Depth Normal Respiratory Pattern Normal Blood Pressure Blood Pressure Mean Blood Pressure Source Blood Pressure Position Blood Pressure Location Pulse Ox 88 Oxygen Delivery Method Nasal Cannula Room Air Oxygen Flow Rate (L/min) 2 11/03/24 08:27 11/03/24 13:54 11/03/24 14:05 Temperature 97.9 F Temperature Source Oral Pulse Rate 61 Pulse Strength Respiratory Rate 18 Respiratory Effort Normal Non-Labored Respiratory Depth Normal Respiratory Pattern Normal Blood Pressure 107/68 Blood Pressure Mean 81 Blood Pressure Source Monitor Blood Pressure Position Sitting Blood Pressure Location Left Arm Pulse Ox 94 94 95 Oxygen Delivery Method Nasal Cannula Room Air Nasal Cannula Oxygen Flow Rate (L/min) 2 2 11/03/24 14:07 11/03/24 14:26 Temperature 98.4 F Temperature Source Oral Pulse Rate 67 Pulse Strength Respiratory Rate 18 Respiratory Effort Respiratory Depth Respiratory Pattern Blood Pressure 122/64 H Blood Pressure Mean 83 Blood Pressure Source Monitor Blood Pressure Position Semi-Fowlers Blood Pressure Location Left Arm Pulse Ox 94 Oxygen Delivery Method Room Air Room Air Oxygen Flow Rate (L/min) Physical Exam Const Vital Signs: 11/03/24 08:25 11/03/24 08:25 11/03/24 08:26 Temperature Temperature Source Pulse Rate Pulse Strength Normal (2+) Respiratory Rate Respiratory Effort Normal Non-Labored Respiratory Depth Normal Respiratory Pattern Normal Blood Pressure Blood Pressure Mean Blood Pressure Source Blood Pressure Position Blood Pressure Location Pulse Ox 88 Oxygen Delivery Method Nasal Cannula Room Air Oxygen Flow Rate (L/min) 2 11/03/24 08:27 11/03/24 13:54 11/03/24 14:05 Temperature 97.9 F Temperature Source Oral Pulse Rate 61 Pulse Strength Respiratory Rate 18 Respiratory Effort Normal Non-Labored Respiratory Depth Normal Respiratory Pattern Normal Blood Pressure 107/68 Blood Pressure Mean 81 Blood Pressure Source Monitor Blood Pressure Position Sitting Blood Pressure Location Left Arm Pulse Ox 94 94 95 Oxygen Delivery Method Nasal Cannula Room Air Nasal Cannula Oxygen Flow Rate (L/min) 2 2 11/03/24 14:07 11/03/24 14:26 Temperature 98.4 F Temperature Source Oral Pulse Rate 67 Pulse Strength Respiratory Rate 18 Respiratory Effort Respiratory Depth Respiratory Pattern Blood Pressure 122/64 H Blood Pressure Mean 83 Blood Pressure Source Monitor Blood Pressure Position Semi-Fowlers Blood Pressure Location Left Arm Pulse Ox 94 Oxygen Delivery Method Room Air Room Air Oxygen Flow Rate (L/min) MDM MDM MDM Narrative Medical decision making narrative: Consults: Hospitalist, general surgery Differential includes but not limited to incarcerated hernia, constipation, obstruction 89-year-old male has right lower abdominal pain and swelling over the last 3 days. There is also overlying bruising. No trauma. He is on Eliquis for history of DVT. He appears well and nontoxic. Vital stable. He has a right mid to lower abdominal mass that is significantly tender with overlying bruising. It is hard to delineate if this is a hernia. He has no peritoneal signs. WBC is normal at 7.5. Hemoglobin 11.4 is stable. BMP overall unremarkable. Lactic 1.4. CT scan shows a rectus sheath hematoma of the right lower abdominal wall measuring up to 6.7 cm. There is also a distended colon withair-fluid levels. It states it could be recent diarrhea or colonic ileus; he is not having bowel movements so ileus is more likely. Initially spoke with Dr. Serrano for admission and he asked that I consult surgery. I talked with Dr. Morrison states the typical treatment is holding anticoagulation and monitoring blood counts and if it worsens he requires IR intervention but it is not surgical. The hospitalist is comfortable with keeping him here for observation. Lab Data Attestation: I reviewed the patient's lab results. Labs: Laboratory Results - last 24 hr 11/03/24 06:45 Sodium 137 Potassium 4.9 Chloride 104 Carbon Dioxide 25.7 Anion Gap 7 BUN 24 H Creatinine 1.18 Estim Creat Clear Calc 38.37 L Est GFR (MDRD) Non-Af 60 BUN/Creatinine Ratio 20.4 H Glucose 116 H Calcium 8.2 Radiography Diagnostic Testing: Clinical Impression(s) from Imaging Studies Abdomen/Pelvis CT 11/02/24 17:05 IMPRESSION: 1. Isodense lesion of the right aspect of the lower anterior abdominal wall measuring up to 6.7 cm.This could be a rectus sheath hematoma. 2. Distended colon with air-fluid levels measuring up to 8.1 cm in diameter could represent recent diarrhea. Colonic ileus can not be excluded. 3. Hepatomegaly with fatty infiltration. 4. Right nephrolithiasis without hydronephrosis. 5. Inguinal hernias, bilaterally. 6. Right basilar atelectasis with nodular configuration. Repeat chest CT in 3 months is recommended. 7. Colonic diverticulosis without acute diverticulitis. Reading Location: [id number] Lab Data Labs: Laboratory Results - last 24 hr 11/03/24 06:45 Sodium 137 Potassium 4.9 Chloride 104 Carbon Dioxide 25.7 Anion Gap 7 BUN 24 H Creatinine 1.18 Estim Creat Clear Calc 38.37 L Est GFR (MDRD) Non-Af 60 BUN/Creatinine Ratio 20.4 H Glucose 116 H Calcium 8.2 Radiography Diagnostic Testing: Clinical Impression(s) from Imaging Studies Abdomen/Pelvis CT 11/02/24 17:05 IMPRESSION: 1. Isodense lesion of the right aspect of the lower anterior abdominal wall measuring up to 6.7 cm.This could be a rectus sheath hematoma. 2. Distended colon with air-fluid levels measuring up to 8.1 cm in diameter could represent recent diarrhea. Colonic ileus can not be excluded. 3. Hepatomegaly with fatty infiltration. 4. Right nephrolithiasis without hydronephrosis. 5. Inguinal hernias, bilaterally. 6. Right basilar atelectasis with nodular configuration. Repeat chest CT in 3 months is recommended. 7. Colonic diverticulosis without acute diverticulitis. Reading Location: [facility] Treatment and Re-Evaluation :: I have personally performed a face to face assessment of the patient and have reviewed the CATE Note. I performed a substantive portion of the visit including all aspects of the following. My luther findings include: History is patient is a 9-year-old male with history of DVT on Eliquis as well as hypertension presenting with abdominal pain and constipation. He states his last bowel movement was about 4 days ago.States he has been passing some gas. Is having pain especially in his right lower quadrant.'s has associated bruisingand was not sure how long it has been there. Denies any trauma to the area. Deniesany nausea or vomiting. No fever or chills reported. Denies any historyof abdominal surgeries. Doestake chronic oxycodone for back pain. On exam patient is uncomfortable appearing but no acute distress. Hemodynamically stable. Blood pressure slightly on the soft side. Is mentatingappropriately. Heart regular rate and rhythm. Lungs [place] station. Head atraumatic normocephalic. Abdomen mildly distended. There is tenderness and significant ecchymosis noted to the right lower quadrant. There is swelling however slightly irregular. Question if there is incarcerated hernia versus mass. Normal extremities. ANO x 4. No focal neurologic deficits appreciated. Skin exam?ecchymosis scattered over the abdominal wall more so on the right lower quadrant. Differential includes incarcerated hernia, abdominal wall trauma, constipation, ileus, small bowel obstruction. Patient is given multiple doses of IV pain medication for his discomfort. CT of the abdomen pelvis shows rectus sheath hematoma of the lower anterior abdominal wall measuring up to 6.7 cm. There is also colonic ileus versus distended colon with air-fluid levels measuring up to 8.1 cm. Lab work shows a mild anemia hemoglobin 11.4 however this is near his baseline. Normal white blood cell count. CMP and lactate largely unremarkable. Case discussed with hospitalist and general surgery. Will hold Eliquis and monitor for hemodynamic stability. Will be admitted for suspected spontaneous abdominal hematoma. Other additions or changes: [None] Discharge Plan Dx/Rx/DC Orders Clinical Impression: Rectus sheath hematoma, Abdominal pain, Anticoagulant long-term use, Constipation Disposition Disposition: Acute Care Hospital [facility] Discharge Date/Time: 11/02/24 19:51 What to do if you have Problems For any increased pain, shortness of breath, bleeding, nausea or vomiting, chest pain, or any unexpected problems, contact your Primary Care Provider. Call [facility] ([phone]) or report to the closest Emergency Room. Call 911 if necessary. 11/04/24734 Cosigner Signature (if applicable): 11/02/242051 CC: Dr. Shoshana Ulrich MD ~ Signed [facility]06-21-2025 Evaluation note* Diagnosis Onset Date Resolution Status Admit Date DVT (deep venous thrombosis) acute November 03, 2024 3:03pm Rectus sheath hematoma acute 2024 3:03pm [facility] Work Phone: 1(507) 329-298806-21-2025 Evaluation note* Diagnosis Onset Date Resolution Status Admit Date DVT (deep venous thrombosis) acute November 03, 2024 3:03pm Rectus sheath hematoma acute 2024 3:03pm DVT (deep venous thrombosis) acute November 21, 2024 11:24am Rectus sheath hematoma acute Ju ly 2024 11:24am S/P IVC filter acute November 21, 2024 11:24am [facility] Work Phone: 1(264) 101-495706-21-2025 Evaluation note* Diagnosis Onset Date Resolution Status Admit Date DVT (deep venous thrombosis) acute November 03, 2024 3:03pm Rectus sheath hematoma acute Ju 2024 3:03pm DVT (deep venous thrombosis) acute November 21, 2024 11:24am Rectus sheath hematoma acute Ju ly 2024 11:24am S/P IVC filter acute November 21, 2024 11:24am Cellulitis of right upper extremity acute January 09 9:47am Skin tear of right upper extremity acute January 09 9:47am Abnormal ECG chronic February 122024 10:28am Coronary artery disease chronic S eptember 2024 10:28am Dyslipidemia chronic February 122024 10:28am History of DVT (deep vein thrombosis) chronic February 12, 2025 10:28am Hypertension chronic February 122024 10:28am Nicotine dependence chronic Septe mber 2024 10:28am Thrombocytopenia chronic Septembe r 2024 10:28am Preoperative cardiovascular examination noneactive February 12, 2025 10:28am [facility] Work Phone: 1(484) 822-580906-21-2025 Progress note Author Rylie Arreaga [facility] Note Date/Time November 03, 2024 9:29 am [facility] Medical Records Department [address] [place] [address] Progress Note - Hospitalist 11/03/24 0918 MR#: [id number] Acct: [id number] Name: DORIAN CRAMER Rep #:[id number] : 1935 89 From: Rylie Arreaga MD PCP: Dr. Shoshana Ulrich MD Status:ADM CATA Location: [facility] [id number] Reason for Visit Reason for Visit: Diagnoses Contusion of abdominal wall, initial encounter (11/02/24) Subjective Subjective Patient was up to bathroom and sat back down in chair immediately before evaluation, reports that when he pushes on his abdomen is scrubber machine tender in the right lower quadrant but that the pain outside of palpation is significantly improving, has had 4 stools today though quite liquidy but is having output, denies abdominal pain outside of the right lower quadrant, noted that it was documented he dropped to 88% at some point patient denies any cough, no shortness of breath, no other complaints whatsoever Objective Data Objective Data Vital Signs: Vital Signs Temp Pulse Resp BP Pulse Ox O2 Del Method O2 Flow Rate 97.9 F 61 18 107/68 94 Nasal Cannula 2 11/03/24 08:27 11/03/24 08:27 11/03/24 08:27 11/03/24 08:27 11/03/24 08:27 11/03/24 08:27 11/03/24 08:27 Oxygen Flow Rate (L/min) 2 Oxygen Delivery Method Nasal Cannula Weight: 66.361 kg Body Mass Index (BMI) 24.3 Intake & Output: Intake and Output for Last 24 Hours 11/01/24 11/02/24 11/03/24 23:59 23:59 23:59 Intake Total 1150 / 1150 150 / 150 Balance 1150 / 1150 150 / 150 Lab / Micro Data 11/03/24 06:45 11/03/24 06:45 Labs: Laboratory Results - last 24 hr 11/02/24 15:41: WBC 7.5, RBC 3.35 L, Hgb 11.4 L, Hct 34.0 L, MCV 101.5 H, MCH 34.0 H, MCHC 33.5, RDW Std Deviation 62.1 H, RDW Coeff of Beth 16.7 H, Plt Count 216, MPV 10.0, Immature Gran % (Auto) 1.300 H, Neut % (Auto) 87.4 H, Lymph % (Auto) 4.5 L, [place] % (Auto) 6.7, Eos % (Auto) 0.0, Baso % (Auto) 0.1, Absolute Neuts (auto) 6.6, Absolute Lymphs (auto) 0.34 L, Nucleated RBC % 0, Sodium 141, Potassium 4.4, Chloride 103, Carbon Dioxide 27.6, Anion Gap 10, BUN 25 H, Creatinine 1.19, Estim Creat Clear Calc 40.83 L, Est GFR (MDRD) Non-Af 59 L, BUN/Creatinine Ratio 21.3 H, Glucose 125 H, Lactic Acid 1.4, Calcium 8.9 11/02/24 19:08: Urine Color Yellow, Urine Clarity Clear, Urine pH 8.0, Ur Specific [place] 1.010, Urine Protein 30 H, Urine Glucose (UA) Normal, Urine Ketones Negative, Urine Occult Blood Negative, Urine Nitrite Negative, Urine Bilirubin Negative, Urine Urobilinogen Normal, Ur Leukocyte Esterase Negative, Urine RBC 0-5 SEEN, Urine WBC 0-5 SEEN, Ur Squamous Epith Cells 0-5 SEEN, Urine Bacteria 0 SEEN, Urine Mucus 0 SEEN 11/03/24 06:45: WBC 5.1, RBC 2.67 L, Hgb 9.3 L, Hct 27.4 L, MCV 102.6 H, MCH 34.8 H, MCHC 33.9, RDW Std Deviation 63.1 H, RDW Coeff of Beth 17.0 H, Plt Count 164, MPV 9.8, Sodium 137, Potassium 4.9, Chloride 104, Carbon Dioxide 25.7, Anion Gap 7, BUN 24 H, Creatinine 1.18, Estim Creat Clear Calc 38.37 L, Est GFR (MDRD) Non-Af 60, BUN/Creatinine Ratio 20.4 H, Glucose 116 H, Calcium 8.2 Radiography Diagnostic Testing: Radiology Impression Abdomen/Pelvis CT 11/02/24 17:05 IMPRESSION: 1. Isodense lesion of the right aspect of the lower anterior abdominal wall measuring up to 6.7 cm. This could be a rectus sheath hematoma. 2. Distended colon with air-fluid levels measuring up to 8.1 cm in diameter could represent recent diarrhea. Colonic ileus can not be excluded. 3. Hepatomegaly with fatty infiltration. 4. Right nephrolithiasis without hydronephrosis. 5. Inguinal hernias, bilaterally. 6. Right basilar atelectasis with nodular configuration. Repeat chest CT in 3 months is recommended. 7. Colonic diverticulosis without acute diverticulitis. Reading Location: [facility] Physical Exam Narrative General: Alert, oriented, no apparent distress HEENT: Atraumatic, normocephalic Eyes: Anicteric, normal conjunctiva, extraocular movements grossly intact Neck: Supple Respiratory: Clear to auscultation bilaterally, normal respiratory effort Cardiovascular: Regular rate and rhythm GI: Somewhat firm and right lower quadrant with pain on palpation and surrounding bruising Extremities: No edema Musculoskeletal: Moving all extremities Neuro: No overt focal neurological deficits Skin: Bruising slightly in midline, lateral to the right rectus muscle and inferior Psych: Cooperative Assessment & Plan Assessment/Plan (1) Rectus sheath hematoma: PLAN: Plan # Rectus sheath hematoma - Patient with spontaneous rectal sheath hematoma presented with right lower abdominal bruising, swelling, pain - CT demonstrated 6.7 cm isodense lesion in right lower anterior abdominal wall consistent with rectus sheath hematoma - Hemoglobin 11.4 on admission and this was his baseline, Eliquis held, this a.m. CBC revealed hemoglobin of 9.3 - Patient does report pain is now improving however, given symptomatic improvement suspect that this a.m. hemoglobin reflects the active bleeding from yesterday that had not yet been reflected on the initial hemoglobin - Will keep patient today off Eliquis and repeat hemoglobin in the a.m., if any further drop may need to consider IR intervention - If patient has any increased pain, lightheadedness, other concerns we will repeat hemoglobin today with further plan pending clinical course - Again at this time patient with no lightheadedness and pain is decreasing so do not feel patient needs urgent transfer for IR intervention # Recent right lower extremity DVT up to level of common femoral vein - Diagnosed in May of this year and has been on Eliquis since that time withimprovement - Follows in the vascular surgery office and was supposed to be on Eliquis 5 mg twice daily for minimum of 6 months with consideration of decreasing to 2.5 twice daily thereafter but was still on 5 twice daily - Holding Eliquis at this time, patient will need to follow-up with vascular surgeon on discharge to decide on further anticoagulation/possible filter/further management, discussed with patient that ultimately would leave this up to the discretion of his outpatient physician # Constipation versus ileus - Patient was constipated for 5 days prior to arrival which is abnormal for him,CT showed air-fluid levels with concern for recent diarrhea versus colonic ileusand general surgery, contacted in the ED, recommended supportive care at that time - This a.m. patient has had several loose stools, is now having transit, will monitor bowel movements - Will need to monitor closely as patient is on narcotics given patient is now having diarrhea hesitant to schedule bowel regimen - Senna docusate as needed # Right basilar atelectasis with nodule configuration - Seen on base of CT scan, it is recommended patient have a chest CT in 3 months, this can be done through his PCPs office #Hypertension - Systolic blood pressure only 107 this a.m., home amlodipine held, continue to monitor BP and can add back as needed #DVT ppx: SCDs Rylei Arreaga MD Charges/Coding Visit Charges Inpatient E&M: 89565 Subs Hosp L2 11/03/24 0929 <Electronically signed by Rylie Arreaga MD> Cosigner Signature (if applicable): CC: ~ Signed [facility] Work Phone: [phone]) 676-554206-21-2025 Progress note [facility] Medical Records Department [address] [place] [address] Progress Note - Hospitalist 11/03/24917 MR#: [id number] Acct: [id number] Name: DORIAN CRAMER Rep #:[id number] : 1935 89 From: Rylie Arreaga MD PCP: Dr. Shoshana Ulrich MD Status:ADM [place]ATA [place] [facility] [id number] Reason for Visit Reason for Visit: Diagnoses Contusion of abdominal wall, initial encounter (11/02/24) Subjective Subjective Patient was up to bathroom and sat back down in chair immediately before evaluation, reports that when he pushes on his abdomen is scrubber machine tender in the right lower quadrant but that the pain outside of palpation is significantly improving, has had 4 stools today though quite liquidy but is having output, denies abdominal pain outside of the right lower quadrant, noted that it was documented he dropped to 88% at some point patient denies any cough, no shortness of breath, no other complaints whatsoever Objective Data Objective Data Vital Signs: Vital Signs Temp Pulse Resp BP Pulse Ox O2 Del Method O2 Flow Rate 97.9 F 61 18 107/68 94 Nasal Cannula 2 11/03/24 08:27 11/03/24 08:27 11/03/24 08:27 11/03/24 08:27 11/03/24 08:27 11/03/24 08:27 11/03/24 08:27 Oxygen Flow Rate (L/min) 2 Oxygen Delivery Method Nasal Cannula Weight: 66.361 kg Body Mass Index (BMI) 24.3 Intake & Output: Intake and Output for Last 24 Hours 11/01/24 11/02/24 11/03/24 23:59 23:59 23:59 Intake Total 1150 / 1150 150 / 150 Balance 1150 / 1150 150 / 150 Lab / Micro Data 11/03/24 06:45 11/03/24 06:45 Labs: Laboratory Results - last 24 hr 11/02/24 15:41: WBC 7.5, RBC 3.35 L, Hgb 11.4 L, Hct 34.0 L, MCV 101.5 H, MCH 34.0 H, MCHC 33.5, RDW Std Deviation 62.1 H, RDW Coeff of Beth 16.7 H, Plt Count 216, MPV 10.0, Immature Gran % (Auto) 1.300 H, Neut % (Auto) 87.4 H, Lymph % (Auto) 4.5 L, [place] % (Auto) 6.7, Eos % (Auto) 0.0, Baso % (Auto)0.1, Absolute Neuts (auto) 6.6, Absolute Lymphs (auto) 0.34 L, Nucleated RBC % 0, Sodium 141, Potassium 4.4, Chloride 103, Carbon Dioxide 27.6, Anion Gap 10, BUN 25 H, Creatinine 1.19, Estim Creat Clear Calc 40.83 L, Est GFR (MDRD) Non-Af 59 L, BUN/Creatinine Ratio 21.3 H, Glucose 125 H, Lactic Acid 1.4, Calcium 8.9 11/02/24 19:08: Urine Color Yellow, Urine Clarity Clear, Urine pH 8.0, Ur Specific [place] 1.010, Urine Protein 30 H, Urine Glucose (UA) Normal, Urine Ketones Negative, Urine Occult Blood Negative, Urine Nitrite Negative, Urine Bilirubin Negative, Urine Urobilinogen Normal, Ur Leukocyte Esterase Negative, Urine RBC 0-5 SEEN, Urine WBC 0-5 SEEN, Ur Squamous Epith Cells 0-5 SEEN, Urine Bacteria 0 SEEN, Urine Mucus 0 SEEN 11/03/24 06:45: WBC 5.1, RBC 2.67 L, Hgb 9.3 L, Hct 27.4 L, MCV 102.6 H, MCH 34.8 H, MCHC 33.9, RDWStd Deviation 63.1 H, RDW Coeff of Beth 17.0 H, Plt Count 164, MPV 9.8, Sodium 137, Potassium 4.9, Chloride 104, Carbon Dioxide 25.7, Anion Gap 7, BUN 24 H, Creatinine 1.18, Estim Creat Clear Calc 38.37 L, Est GFR (MDRD) Non-Af 60, BUN/Creatinine Ratio 20.4 H, Glucose 116 H, Calcium 8.2 Radiography Diagnostic Testing: Radiology Impression Abdomen/Pelvis CT 11/02/24 17:05 IMPRESSION: 1. Isodense lesion of the right aspect of the lower anterior abdominal wall measuring up to 6.7 cm.This could be a rectus sheath hematoma. 2. Distended colon with air-fluid levels measuring up to 8.1 cm in diameter could represent recent diarrhea. Colonic ileus can not be excluded. 3. Hepatomegaly with fatty infiltration. 4. Right nephrolithiasis without hydronephrosis. 5. Inguinal hernias, bilaterally. 6. Right basilar atelectasis with nodular configuration. Repeat chest CT in 3 months is recommended. 7. Colonic diverticulosis without acute diverticulitis. Reading Location: [facility] Physical Exam Narrative General: Alert, oriented, no apparent distress HEENT: Atraumatic, normocephalic Eyes: Anicteric, normal conjunctiva, extraocular movements grossly intact Neck: Supple Respiratory: Clear to auscultation bilaterally, normal respiratory effort Cardiovascular: Regular rate and rhythm GI: Somewhat firm and right lower quadrant with pain on palpation and surrounding bruising Extremities: No edema Musculoskeletal: Moving all extremities Neuro: No overt focal neurological deficits Skin: Bruising slightly in midline, lateral to the right rectus muscle and inferior Psych: Cooperative Assessment & Plan Assessment/Plan (1) Rectus sheath hematoma: PLAN: Plan # Rectus sheath hematoma - Patient with spontaneous rectal sheath hematoma presented with right lower abdominal bruising, swelling, pain - CT demonstrated 6.7 cm isodense lesion in right lower anterior abdominal wall consistent with rectus sheath hematoma - Hemoglobin 11.4 on admission and this was his baseline, Eliquis held, this a.m. CBC revealed hemoglobin of 9.3 - Patient does report pain is now improving however, given symptomatic improvement suspect that this a.m. hemoglobin reflects the active bleeding from yesterday that had not yet been reflected on theinitial hemoglobin - Will keep patient today off Eliquis and repeat hemoglobin in the a.m., if any further drop may need to consider IR intervention - If patient has any increased pain, lightheadedness, other concerns we will repeat hemoglobin today with further plan pending clinical course - Again at this time patient with no lightheadedness and pain is decreasing so do not feel patient needs urgent transfer for IR intervention # Recent right lower extremity DVT up to level of common femoral vein - Diagnosed in May of this year and has been on Eliquis since that time withimprovement - Follows in the vascular surgery office and was supposed to be on Eliquis 5 mg twice daily for minimum of 6 months with consideration of decreasing to 2.5 twice daily thereafter but was still on 5 twice daily - Holding Eliquis at this time, patient will need to follow-up with vascular surgeon on discharge to decide on further anticoagulation/possible filter/further management, discussed with patient that ultimately would leave this up to the discretion of his outpatient physician # Constipation versus ileus - Patient was constipated for 5 days prior to arrival which is abnormal for him,CT showed air-fluidlevels with concern for recent diarrhea versus colonic ileusand general surgery, contacted in the ED, recommended supportive care at that time - This a.m. patient has had several loose stools, is now having transit, will monitor bowel movements - Will need to monitor closely as patient is on narcotics given patient is now having diarrhea hesitant to schedule bowel regimen - Senna docusate as needed # Right basilar atelectasis with nodule configuration - Seen on base of CT scan, it is recommended patient have a chest CT in 3 months, this can be done through his PCPs office #Hypertension - Systolic blood pressure only 107 this a.m., home amlodipine held, continue to monitor BP and can add back as needed #DVT ppx: SCDs Rylie Arreaga MD Charges/Coding Visit Charges Inpatient E&M: 72420 Subs Hosp L2 11/03/24 0904 Cosigner Signature (if applicable): CC: ~ Signed [facility]06-20-2025 History and physical note Author Raghav Serrano [facility] Note Date/Time November 02, 2024 9:33 pm [facility] Medical Records Department [address] [place] [address] H&P Exam - Hospitalist 11/02/242114 MR#: [id number] Acct: [id number] Name: DORIAN CRAMER Rep #:[id number] : 1935 89 From: Raghav gaming DO PCP: Dr. Shoshana Ulrich MD Status:ADM CATA Location: [place] [id number] HPI - General General Date of Admission: 11/02/24 Date of Service: 11/02/24 Chief Complaint: Right lower abdominal pain HPI Narrative DORIAN CRAMER, is a 89 M who presented to [facility] ED on 11/02/2024 with worsening right lower abdominal pain. 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 He has been on Eliquis since that time with good improvement in his leg swelling and mobility. Has been following with vascular surgery in the office. Plan per vascular was for Eliquis 5 mg twice daily for minimum of 6 months given the unprovoked nature of the DVT. On presentation to the ED today, patient reports right lower abdominal pain and swelling with bruising over the past 3 to 4 days. He has also had constipation with this. CTabdomen pelvis showed a 6.7 cm isodense lesion in the right aspect of the lower anterior abdominal wall concerning for a rectus sheath hematoma; also showed a distended colon with air-fluid levels measuring up to 8.1 cm in diameter representing recent diarrhea versus colonic ileus. ED discussed with general surgery who noted that typical management is to discontinue the anticoagulant and rectal sheath hematoma will improve on its own. We also noted that supportive treatment for possible colonic ileus is reasonable for now. Notably hemoglobin was 11.4 in the ED with baseline hemoglobin around 11-12, and patientwas hemodynamically stable on room air with heart rate in the 70s. Given these findings, hospitalist was contacted for admission. I saw the patient at bedsidein the ED. Patient was mildly fatigued appearing but otherwise sitting back comfortably in bed, conversing normally, in no acute distress. He noted mild pain at the site of bruising and swelling currently that is worse with certain movements. He denies any lightheadedness/dizziness. Denies any other acute concerns currently. Will be admitted for further management. 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 Wears glasses Wears hearing aid in both ears Cancer Alcohol abuse Hx of gout Heartburn CPAP (continuous positive airway pressure) dependence Shortness of breath on exertion Smoker Emphysema, unspecified Hypertension Restless legs Injury of back Home Medications ?Medication ?Instructions ?Recorded ?Last Taken ?Type albuterol sulfate 90 mcg/actuation 1 puff inhalation Q 4H PRN 09/08/21 Unknown History aerosol inhaler sob/wheezing amlodipine 5 mg tablet 5 mg PO DAILY 07/02/2209/17 History artifi.tears(hypromellose)(PF) 1.7 1 drp EACH EYE KENDALL Y PRN dry eyes 09/19/23 Unknown History % eye drops with applicator oxybutynin chloride 10 mg 10 mg PO DAILY 09/19/23 Unkn own History tablet,extended release 24 hr nystatin 100,000 unit/gram topical 1 applic topical QD AY PRN yeast 07/13/24 Unknown History powder apixaban 5 mg tablet (Eliquis) 5 mg PO BID #180 tabs 0 07/25/24 Unknown Rx oxycodone-acetaminophen 5 mg-325 1 tab PO TID PRN PRN pain 11/02/24 Unknown History mg tablet Allergy/AdvReac Type Severity Reaction Status Date / Time ibuprofen (From Motrin) Allergy Swelling Verified 11/02/24 15:49 Family History Mother , 61 Cancer Father , 91 AD (Alzheimer's disease) Surgical History History of hand surgery S/P insertion of spinal cord stimulator History of varicose vein stripping Hx of myringotomy History of parotidectomy History of esophagogastroduodenoscopy (EGD) History of cystoscopy Hx of basal cell carcinoma excision Hx of finger joint replacement Hx of decompressive lumbar laminectomy Social History household members: spouse and none housing: house current occupational status: retired pets and animals: Yes pets and animals: dog(s) Smoking Status: Current every day smoker tobacco type: cigarettes alcohol intake: current details: On avg a couple drinks each evening substance use type: does not use caffeine: Yes Type: coffee Number of servings: 2 do you feel safe at home: Yes ROS Constitutional Constitutional: Reports fatigue; Denies chills, fever(s) or weakness Eyes Eyes: Denies change in vision Cardiovascular Cardiovascular: Denies chest pain Respiratory/Chest Respiratory/Chest: Denies cough, productive cough, shortness of breath at rest or shortness of breath with exertion Gastrointestinal Gastrointestinal: Reports abdominal pain, constipation and nausea; Denies diarrhea or vomiting Genitourinary Genitourinary: Denies dysuria Musculoskeletal Musculoskeletal: Denies arthralgias or myalgias Neurologic Neurologic: Denies dizziness, focal weakness or headache(s) Vital Signs Vital Signs Vital Signs: 11/02/24 14:01 11/02/24 16:28 11/02/24 19:13 Temperature 97.9 F Temperature Source Oral Pulse Rate 90 71 75 Respiratory Rate 17 22 H 16 Blood Pressure 141/86 H 152/76 H 139/74 H Blood Pressure Mean 104 101 95 Blood Pressure Source Blood Pressure Position Blood Pressure Location Pulse Ox 98 95 92 Oxygen Delivery Method Room Air Room Air 11/02/24 19:15 11/02/24 20:14 Temperature 92 F L 97.5 F L Temperature Source Oral Pulse Rate 77 82 Respiratory Rate 17 18 Blood Pressure 139/74 H 147/75 H Blood Pressure Mean 95 99 Blood Pressure Source Monitor Blood Pressure Position Semi-Fowlers Blood Pressure Location Right Arm Pulse Ox 98 92 Oxygen Delivery Method Room Air Weight Weight: 66.361 kg Body Mass Index (BMI) 24.3 Physical Exam Const alert, oriented x3, no apparent distress and average body habitus Constitutional Narrative: Pleasant elderly male, mildly fatigued appearing but otherwise sitting back comfortably in bed, conversing normally, in no acute distress. General Appearance: cooperative and comfortable HEENT normocephalic, head/scalp atraumatic, hearing grossly normal bilaterally, nasal mucous membranes and turbinates normal and moist oral mucous membranes Eyes PERRL, EOMs intact bilaterally and conjunctivae normal Neck full ROM Chest inspection of chest normal Resp normal respiratory effort, normal air movement, no use of accessory muscles and clear to auscultation bilaterally Cardio regular rate, regular rhythm, no murmurs and peripheral pulses 2+ throughout GI GI Narrative: Right lower abdominal area with swelling, bruising and tenderness to palpation. Abdomen otherwise mildly distended but soft. Back/Spine normal ROM Extremity normal to inspection, full ROM and no pedal edema Skin no rashes or lesions noted Psych mental status grossly normal Results Lab / Micro Data 11/02/24 15:41 11/02/24 15:41 Labs: Laboratory Results - last 24 hr 11/02/24 15:41: WBC 7.5, RBC 3.35 L, Hgb 11.4 L, Hct 34.0 L, MCV 101.5 H, MCH 34.0 H, MCHC 33.5, RDW Std Deviation 62.1 H, RDW Coeff of Beth 16.7 H, Plt Count 216, MPV 10.0, Immature Gran % (Auto) 1.300 H, Neut % (Auto) 87.4 H, Lymph % (Auto) 4.5 L, [place] % (Auto) 6.7, Eos % (Auto) 0.0, Baso % (Auto) 0.1, Absolute Neuts (auto) 6.6, Absolute Lymphs (auto) 0.34 L, Nucleated RBC % 0, Sodium 141, Potassium 4.4, Chloride 103, Carbon Dioxide 27.6, Anion Gap 10, BUN 25 H, Creatinine 1.19, Estim Creat Clear Calc 40.83 L, Est GFR (MDRD) Non-Af 59 L, BUN/Creatinine Ratio 21.3 H, Glucose 125 H, Lactic Acid 1.4, Calcium 8.9 11/02/24 19:08: Urine Color Yellow, Urine Clarity Clear, Urine pH 8.0, Ur Specific [place] 1.010, Urine Protein 30 H, Urine Glucose (UA) Normal, Urine Ketones Negative, Urine Occult Blood Negative, Urine Nitrite Negative, Urine Bilirubin Negative, Urine Urobilinogen Normal, Ur Leukocyte Esterase Negative, Urine RBC 0-5 SEEN, Urine WBC 0-5 SEEN, Ur Squamous Epith Cells 0-5 SEEN, Urine Bacteria 0 SEEN, Urine Mucus 0 SEEN Imaging Radiology Impression Abdomen/Pelvis CT 11/02/24 17:05 IMPRESSION: 1. Isodense lesion of the right aspect of the lower anterior abdominal wall measuring up to 6.7 cm. This could be a rectus sheath hematoma. 2. Distended colon with air-fluid levels measuring up to 8.1 cm in diameter could represent recent diarrhea. Colonic ileus can not be excluded. 3. Hepatomegaly with fatty infiltration. 4. Right nephrolithiasis without hydronephrosis. 5. Inguinal hernias, bilaterally. 6. Right basilar atelectasis with nodular configuration. Repeat chest CT in 3 months is recommended. 7. Colonic diverticulosis without acute diverticulitis. Reading Location: [id number] Assessment & Plan Assessment/Plan (1) Rectus sheath hematoma: PLAN: Plan Patient is an 89-year-old male who presented to [facility] ED on11/02/2024 with worsening right lower abdominal pain and swelling. 1. Rectus sheath hematoma ? Admit under observation status to [facility]. Presented with right lower abdominal bruising, swelling and pain. CT abdomen pelvis showed 6.7 cm isodenselesion in the right lower anterior abdominal wall consistent with rectus sheath hematoma. Discussed with general surgery; typically this is managed conservatively and heals on its own. If any procedure was needed, patient wouldneed transferred for IR services. Hemoglobin 11.4 on admit, at baseline. Will hold home Eliquis and discuss with patient on need for close outpatient follow-up with vascular surgery as below. Follow-up a.m. CBC. If hemoglobin remains essentially stable, patient should be okay for discharge home. Would then plan for repeat CBC mid next week. No clear recommendation on if/when to reimage with CT but notably it usually takes short months to resolve. Pain control withTylenol, oxycodone and IV Dilaudid as needed. Ice in place to help with pain and swelling. 2. Recent extensive right lower extremity DVT ? Follows with vascular surgery. Had extensive right lower extremity DVT up to the common femoral vein on duplex ultrasound in May. Has been treated with Eliquis since then with great improvement in right leg swelling. Plan per vascular was for 6 months of Eliquis 5 mg twice daily, likely followed by Eliquis 2.5 mg twice daily. Holding Eliquis as above. Recommended that patientcall the vascular surgery office to follow-up with them in the next week for further recommendations moving forward; suspect IVC filter could be considered for patient but will defer this to vascular surgery. 3. Constipation versus colonic ileus ? Patient reporting constipation for several days prior to admission. CT of thepelvis showed descending colon with air-fluid levels representing recent diarrhea versus colonic ileus. Per general surgery, okay for supportive care with IV fluids and correcting electrolyte imbalances as needed. If this does not improve, low threshold to consult surgery. 4. Hypertension ? Continue home amlodipine. 5. Overactive bladder ? Continue home oxybutynin. DVT prophylaxis: SCDs CODE STATUS: DNR CCA, okay to intubate Expected disposition: Home, 1 to 2 days Total clinical time spent by myself addressing the patient's medical issues, reviewing all the data, and collaborating with patient's care team: 75 minutes. Charges/Coding Visit Charges Inpatient E&M: 36097 Init Hosp L3 11/02/242132 <Electronically signed by Raghav Serrano DO> Cosigner Signature (if applicable): CC: Dr. Raghav Serrano DO; Dr. Shoshana Ulrich MD~ Signed [facility] Work Phone: 1(213) 482-736106-20-2025 History and physical note [facility] Medical Records Department [address] [place] [address] H&P Exam - Hospitalist 11/02/242114 MR#: [id number] Acct: [id number] Name: DORIAN CRAMER Rep #:[id number] : 1935 89 From: Raghav gaming DO PCP: Dr. Shoshana Ulrich MD Status:ADM CATA Location: MS3 HA801-3 HPI - General General Date of Admission: 11/02/24 Date of Service: 11/02/24 Chief Complaint: Right lower abdominal pain HPI Narrative DORIAN CRAMER, is a 89 M who presented to [facility] ED on 11/02/2024 with worsening right lower abdominal pain. 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 He has been on Eliquis since that time withgood improvement in his leg swelling and mobility. Has been following with vascular surgery in the office. Plan per vascular was for Eliquis 5 mg twice daily for minimum of 6 months given the unprovoked nature of the DVT. On presentation to the ED today, patient reports right lower abdominal pain and swelling with bruising over the past 3 to 4 days. He has also had constipation with this. CTabdomen pelvis showed a 6.7 cm isodense lesion in the right aspect of the lower anterior abdominal wall concerning for a rectus sheath hematoma; also showed a distended colon with air-fluid levels measuring up to 8.1 cm in diameter representing recent diarrhea versus colonic ileus. ED discussed with general surgery who noted that typical management is to discontinue the anticoagulant and rectal sheath hematoma will improve on its own. We also noted that supportive treatment for possible colonic ileusis reasonable for now. Notably hemoglobin was 11.4 in the ED with baseline hemoglobin around 11-12,and patientwas hemodynamically stable on room air with heart rate in the 70s. Given these findings,hospitalist was contacted for admission. I saw the patient at bedsidein the ED. Patient was mildly fatigued appearing but otherwise sitting back comfortably in bed, conversing normally, in no acute distress. He noted mild pain at the site of bruising and swelling currently that is worse with certain movements. He denies any lightheadedness/dizziness. Denies any other acute concerns currently. Will be admitted for further management. 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 Wears glasses Wears hearing aid in both ears Cancer Alcohol abuse Hx of gout Heartburn CPAP (continuous positive airway pressure) dependence Shortness of breath on exertion Smoker Emphysema, unspecified Hypertension Restless legs Injury of back Home Medications ?Medication ?Instructions ?Recorded ?Last Taken ?Type albuterol sulfate 90 mcg/actuation 1 puff inhalation Q 4H PRN 09/08/21 Unknown History aerosol inhaler sob/wheezing amlodipine 5 mg tablet 5 mg PO DAILY 07/02/2209/17 History artifi.tears(hypromellose)(PF) 1.7 1 drp EACH EYE KENDALL Y PRN dry eyes 09/19/23 Unknown History % eye drops with applicator oxybutynin chloride 10 mg 10 mg PO DAILY 09/19/23 Unkn own History tablet,extended release 24 hr nystatin 100,000 unit/gram topical 1 applic topical QD AY PRN yeast 07/13/24 Unknown History powder apixaban 5 mg tablet (Eliquis) 5 mg PO BID #180 tabs 0 07/25/24 Unknown Rx oxycodone-acetaminophen 5 mg-325 1 tab PO TID PRN PRN pain 11/02/24 Unknown History mg tablet Allergy/AdvReac Type Severity Reaction Status Date / Time ibuprofen (From Motrin) Allergy Swelling Verified 11/02/24 15:49 Family History Mother , 61 Cancer Father , 91 AD (Alzheimer's disease) Surgical History History of hand surgery S/P insertion of spinal cord stimulator History of varicose vein stripping Hx of myringotomy History of parotidectomy History of esophagogastroduodenoscopy (EGD) History of cystoscopy Hx of basal cell carcinoma excision Hx of finger joint replacement Hx of decompressive lumbar laminectomy Social History household members: spouse and none housing: house current occupational status: retired pets and animals: Yes pets and animals: dog(s) Smoking Status: Current every day smoker tobacco type: cigarettes alcohol intake: current details: On avg a couple drinks each evening substance use type: does not use caffeine: Yes Type: coffee Number of servings: 2 do you feel safe at home: Yes ROS Constitutional Constitutional: Reports fatigue; Denies chills, fever(s) or weakness Eyes Eyes: Denies change in vision Cardiovascular Cardiovascular: Denies chest pain Respiratory/Chest Respiratory/Chest: Denies cough, productive cough, shortness of breath at rest or shortness of breath with exertion Gastrointestinal Gastrointestinal: Reports abdominal pain, constipation and nausea; Denies diarrhea or vomiting Genitourinary Genitourinary: Denies dysuria Musculoskeletal Musculoskeletal: Denies arthralgias or myalgias Neurologic Neurologic: Denies dizziness, focal weakness or headache(s) Vital Signs Vital Signs Vital Signs: 11/02/24 14:01 11/02/24 16:28 11/02/24 19:13 Temperature 97.9 F Temperature Source Oral Pulse Rate 90 71 75 Respiratory Rate 17 22 H 16 Blood Pressure 141/86 H 152/76 H 139/74 H Blood Pressure Mean 104 101 95 Blood Pressure Source Blood Pressure Position Blood Pressure Location Pulse Ox 98 95 92 Oxygen Delivery Method Room Air Room Air 11/02/24 19:15 11/02/24 20:14 Temperature 92 F L 97.5 F L Temperature Source Oral Pulse Rate 77 82 Respiratory Rate 17 18 Blood Pressure 139/74 H 147/75 H Blood Pressure Mean 95 99 Blood Pressure Source Monitor Blood Pressure Position Semi-Fowlers Blood Pressure Location Right Arm Pulse Ox 98 92 Oxygen Delivery Method Room Air Weight Weight: 66.361 kg Body Mass Index (BMI) 24.3 Physical Exam Const alert, oriented x3, no apparent distress and average body habitus Constitutional Narrative: Pleasant elderly male, mildly fatigued appearing but otherwise sitting back comfortably in bed, conversing normally, in no acute distress. General Appearance: cooperative and comfortable HEENT normocephalic, head/scalp atraumatic, hearing grossly normal bilaterally, nasal mucous membranes and turbinates normal and moist oral mucous membranes Eyes PERRL, EOMs intact bilaterally and conjunctivae normal Neck full ROM Chest inspection of chest normal Resp normal respiratory effort, normal air movement, no use of accessory muscles and clear to auscultation bilaterally Cardio regular rate, regular rhythm, no murmurs and peripheral pulses 2+ throughout GI GI Narrative: Right lower abdominal area with swelling, bruising and tenderness to palpation. Abdomen otherwise mildly distended but soft. Back/Spine normal ROM Extremity normal to inspection, full ROM and no pedal edema Skin no rashes or lesions noted Psych mental status grossly normal Results Lab / Micro Data 11/02/24 15:41 11/02/24 15:41 Labs: Laboratory Results - last 24 hr 11/02/24 15:41: WBC 7.5, RBC 3.35 L, Hgb 11.4 L, Hct 34.0 L, MCV 101.5 H, MCH 34.0 H, MCHC 33.5, RDW Std Deviation 62.1 H, RDW Coeff of Beth 16.7 H, Plt Count 216, MPV 10.0, Immature Gran % (Auto) 1.300 H, Neut % (Auto) 87.4 H, Lymph % (Auto) 4.5 L, [place] % (Auto) 6.7, Eos % (Auto) 0.0, Baso % (Auto)0.1, Absolute Neuts (auto) 6.6, Absolute Lymphs (auto) 0.34 L, Nucleated RBC % 0, Sodium 141, Potassium 4.4, Chloride 103, Carbon Dioxide 27.6, Anion Gap 10, BUN 25 H, Creatinine 1.19, Estim Creat Clear Calc 40.83 L, Est GFR (MDRD) Non-Af 59 L, BUN/Creatinine Ratio 21.3 H, Glucose 125 H, Lactic Acid 1.4, Calcium 8.9 11/02/24 19:08: Urine Color Yellow, Urine Clarity Clear, Urine pH 8.0, Ur Specific [place] 1.010, Urine Protein 30 H, Urine Glucose (UA) Normal, Urine Ketones Negative, Urine Occult Blood Negative, Urine Nitrite Negative, Urine Bilirubin Negative, Urine Urobilinogen Normal, Ur Leukocyte Esterase Negative, Urine RBC 0-5 SEEN, Urine WBC 0-5 SEEN, Ur Squamous Epith Cells 0-5 SEEN, Urine Bacteria 0 SEEN, Urine Mucus 0 SEEN Imaging Radiology Impression Abdomen/Pelvis CT 11/02/24 17:05 IMPRESSION: 1. Isodense lesion of the right aspect of the lower anterior abdominal wall measuring up to 6.7 cm.This could be a rectus sheath hematoma. 2. Distended colon with air-fluid levels measuring up to 8.1 cm in diameter could represent recent diarrhea. Colonic ileus can not be excluded. 3. Hepatomegaly with fatty infiltration. 4. Right nephrolithiasis without hydronephrosis. 5. Inguinal hernias, bilaterally. 6. Right basilar atelectasis with nodular configuration. Repeat chest CT in 3 months is recommended. 7. Colonic diverticulosis without acute diverticulitis. Reading Location: [facility] Assessment & Plan Assessment/Plan (1) Rectus sheath hematoma: PLAN: Plan Patient is an 89-year-old male who presented to [facility] ED on11/02/2024 with worsening right lower abdominal pain and swelling. 1. Rectus sheath hematoma ? Admit under observation status to [facility]. Presented with right lower abdominal bruising, swelling and pain. CT abdomen pelvis showed 6.7 cm isodenselesion in the right lower anterior abdominal wall consistent with rectus sheath hematoma. Discussed with general surgery; typically this is managed c onservatively and heals on its own. If any procedure was needed, patient wouldneed transferred for IR services. Hemoglobin 11.4 on admit, at baseline. Will hold home Eliquis and discuss with patient on need for close outpatient follow-up with vascular surgery as below. Follow-up a.m. CBC. If hemoglobin remains essentially stable, patient should be okay for discharge home. Would then plan for repeat CBC mid next week. No clear recommendation on if/when to reimage with CT but notably it usually takes short months to resolve. Pain control withTylenol, oxycodone and IV Dilaudid as needed. Ice in place to help with pain and swelling. 2. Recent extensive right lower extremity DVT ? Follows with vascular surgery. Had extensive right lower extremity DVT up to the common femoral vein on duplex ultrasound in May. Has been treated with Eliquis since then with great improvementin right leg swelling. Plan per vascular was for 6 months of Eliquis 5 mg twice daily, likely followed by Eliquis 2.5 mg twice daily. Holding Eliquis as above. Recommended that patientcall the vascular surgery office to follow-up with them in the next week for further recommendations moving forward; suspect IVC filter could be considered for patient but will defer this to vascular surgery. 3. Constipation versus colonic ileus ? Patient reporting constipation for several days prior to admission. CT of thepelvis showed descending colon with air-fluid levels representing recent diarrhea versus colonic ileus. Per general surgery, okay for supportive care with IV fluids and correcting electrolyte imbalances as needed. If this does not improve, low threshold to consult surgery. 4. Hypertension ? Continue home amlodipine. 5. Overactive bladder ? Continue home oxybutynin. DVT prophylaxis: SCDs CODE STATUS: DNR CCA, okay to intubate Expected disposition: Home, 1 to 2 days Total clinical time spent by myself addressing the patient's medical issues, reviewing all the data, and collaborating with patient's care team: 75 minutes. Charges/Coding Visit Charges Inpatient E&M: 55016 Init Hosp L3 11/02/242132 Cosigner Signature (if applicable): CC: Dr. Raghav Serrano DO; Dr. Shoshana Ulrich MD~ Signed [facility]06-20-2025 Radiology Diagnostic study note [facility] Imaging Services [address] [place] [address] Abdomen/Pelvis W IV Cont ONLY MR#: [id number] Acct: [id number] Name: DORIAN CRAMER Rep #: [id number] : 1935 M 89 From: Germania Carlton MD PCP: Dr. Shoshana Ulrich MD Status: REG ER Study:Abdomen/Pelvis W IV Cont ONLY Date of E xam: 11/02/24 Exam# [id number] Ordering Dr: Manju Ulrich EXAM: CT Abdomen and Pelvis With Intravenous Contrast CLINICAL INDICATION: PAIN, HERNIA TECHNIQUE: Axial computed tomography images of the abdomen and pelvis with intravenous contrast. This CT exam was performed using one or more of the following dose reduction techniques: automated exposure control, adjustment of the mA and/or kV according to patient size, and/or use of iterative reconstruction technique. COMPARISON: CT Abdomen Pelvis dated 09/19/2023 FINDINGS: LUNG BASES: Right basilar atelectasis with nodular configuration. Repeat chestCT in 3 months is recommended. ABDOMEN: LIVER: Hepatomegaly with fatty infiltration. GALLBLADDER AND BILE DUCTS: Unremarkable. No calcified stones. No ductal dilation. PANCREAS: Unremarkable. No mass. No ductal dilation. SPLEEN: Unremarkable. No splenomegaly. ADRENALS: Right adrenal adenoma, stable. KIDNEYS AND URETERS: Right nephrolithiasis without hydronephrosis. Left renal cysts. STOMACH AND BOWEL: Distended colon with air-fluid levels measuring up to 8.1 cmin diameter could represent recent diarrhea. Colonic ileus can not be excluded. Colonic diverticulosis without acute diverticulitis. PELVIS: APPENDIX: No findings to suggest acute appendicitis. BLADDER: Unremarkable. No mass. REPRODUCTIVE: Unremarkable as visualized. ABDOMEN and PELVIS: INTRAPERITONEAL SPACE: Unremarkable. No free air. No significant fluid collection. BONES/JOINTS: Multilevel endplate degenerative changes and disc disease of the visualized spine. Noacute fracture. No dislocation. SOFT TISSUES: Isodense lesion of the right aspect of the lower anterior abdominal wall measuring upto 6.7 cm. This could be a rectus sheath hematoma. Inguinal hernias, bilaterally. VASCULATURE: Scattered calcified atherosclerotic disease of the aorta measuringup to 2.9 cm in diameter. No abdominal aortic aneurysm. LYMPH NODES: Unremarkable. No enlarged lymph nodes. CT/Abdomen/Pelvis W IV Cont ONLY IMPRESSION: 1. Isodense lesion of the right aspect of the lower anterior abdominal wall measuring up to 6.7 cm.This could be a rectus sheath hematoma. 2. Distended colon with air-fluid levels measuring up to 8.1 cm in diameter could represent recent diarrhea. Colonic ileus can not be excluded. 3. Hepatomegaly with fatty infiltration. 4. Right nephrolithiasis without hydronephrosis. 5. Inguinal hernias, bilaterally. 6. Right basilar atelectasis with nodular configuration. Repeat chest CT in 3 months is recommended. 7. Colonic diverticulosis without acute diverticulitis. Reading Location: [facility] CC: Dr. 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, 2024 12:50pm Paresthesia chronic June 12:50pm DVT (deep venous thrombosis) acute November 03, 2024 3:03pm Rectus sheath hematoma acute Ju 2024 3:03pm [facility] Work Phone: 1(417) 914-629702-11-2025 Evaluation note* Diagnosis Onset Date Resolution Status Admit Date Acute deep vein thrombosis (DVT) of right lower extremity inactive F ebruary 2024 3:50pm 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, 2024 12:50pm Paresthesia chronic June 12:50pm [facility] Work Phone: 1(660) 976-997105-07-2024 Procedure [facility] 09-20-2023 Procedure [facility]05-07-2024 Progress note Author Rosemary Fernandez [facility] September 20, 2023 1:17pm Note Date/Time September 20, 2023 1:17pm [facility] Medical Records Department [address] [place] [address] Progress Note - Hospitalist 09/20/23 1314 MR#: [id number] Acct: [id number] Name: DORIAN CRAMER Rep #:[id number] : 1935 88 From: Rosemary Fernandez DO PCP: Dr. Shoshana Ulrich MD Status:ADM IN [facility] Reason for Visit Reason for Visit: Bright [...] % (Auto) 59.0, Lymph % (Auto) 22.8, [place] % (Auto) 7.8, Eos % (Auto) 9.2 [...] with endoscopy. Charges/Coding Visit Charges Inpatient E&M: 07886 Subs Hosp L2 09/20/23 1310 <Electronically signed by Rosemary Fernandez DO> Cosigner Signature (if applicable): CC: ~ Signed [facility] Work Phone: 1(856) 467-264705-06-2024 Consult note Author Lionel Lee [facility] September 19, 2023 5:56pm Note Date/Time September 19, 2023 5:50pm [facility] Medical Records Department [address] [place] [address] Consultation - GI 09/19/23 1750 MR#: [id number] Acct: [id number] Name: DORIAN CRAMER Rep #:[id number] : 1935 88 From: Lionel Lee DO PCP: Dr. Shoshana Ulrich MD Status:ADM IN [facility] HPI Consult Data Date of Consult: 09/19/23 [...] round atelectasis in the right lower lobe. [facility] Medical History Alcohol abuse Alcohol use [...] (Auto) 68.4, Lymph % (Auto) 15.3 L, [place] % (Auto) 6.9, Eos % (Auto) 8.1 [...] capsule study. Charges/Coding Visit Charges Inpatient E&M: 40325 Init Hosp 09/19/23 5554 <Electronically signed by Lionel Lee DO> Cosigner Signature (if applicable): CC: Dr. Shoshana Ulrich MD~ Signed [facility] Work Phone: 1(779) 932-303505-06-2024 History and physical note Author Rosemary Fernandez [facility] September 19, 2023 5:33pm Note Date/Time September 19, 2023 12:19p [facility] Medical Records Department [address] [place] [address] H&P Exam - Hospitalist 09/19/23 1217 MR#: [id number] Acct: [id number] Name: DORIAN CRAMER Rep #:[id number] : 1935 88 From: Rosemary Fernandez DO PCP: Dr. Shoshana Ulrich MD Status:ADM IN [place] [facility] [place]41-[facility] HPI - General General Date of Admission: 09/19/23 Date of Service: 09/19/23 Chief Complaint: BRBPR HPI Narrative DORIAN CRAMER, is a 88 M who presented to the emergency department [facility] on 09/19/2023 with bright red blood [...] emergency department and found to be negative. [facility] Medical History Alcohol abuse Alcohol use [...] (Auto) 68.4, Lymph % (Auto) 15.3 L, [place] % (Auto) 6.9, Eos % (Auto) 8.1 [...] with endoscopy. Charges/Coding Visit Charges Inpatient E&M: 08712 Init Hosp L2 09/19/23 1734 <Electronically signed by Rosemary Fernandez DO> Cosigner Signature (if applicable): CC: Dr. Shoshana Ulrich MD; Dr. Rosemary Fernandez DO~ Signed [facility] Work Phone: 1(900) 462-266705-06-2024 Discharge summary Author Russel Pal [facility] September 19, 2023 12:44pm Note Date/Time September 19, 2023 9:03am [facility] Medical Records Department [address] [place] [address] Emergency Department Summary 09/19/23 MR#: [id number] Acct: [id number] Name: DORIAN CRAMER Rep #:[id number] : 1935 88 From: Russel Pal DO PCP: Dr. Shoshana Ulrich MD Status:ADM IN Location: NC3 EI660-7 HPI HPI - GI History of Present [...] in the abdomen. Denies urinary complaints. PFSH [facility] Medical History Alcohol abuse Alcohol use [...] is amenable to keeping the here at [facility]. Admitted to hospitalist. Patient did have another [...] (Auto) 68.4 Lymph % (Auto) 15.3 L [place] % (Auto) 6.9 Eos % (Auto) 8.1 [...] Signed: Felix Dykes MD at 10:16 EDT Reading Location ID and State: [facility] / [place] , Service support , Discharge Plan Triage Chief Complaint: GI Bleed ED Provider: Russel Pal Dx/Rx/DC Orders Primary Care Provider: Shoshana Ulrich What to do if you have Problems For any increased pain, shortness of breath, bleeding, nausea or vomiting, chestpain, or any unexpected problems, contact your Primary Care Provider. Call [facility] ([phone]) or report to the closest Emergency Room. Call 911 if necessary. 09/19/23 1244 <Electronically signed by Russel Pal DO> Cosigner Signature (if applicable): CC: Dr. Shoshana Ulrich MD ~ Signed [facility] Work Phone: 1(416) 559-344605-06-2024 Discharge summary Author Russel Pal [facility] September 19, 2023 12:44pm Note Date/Time September 19, 2023 9:03am [facility] Medical Records Department [address] [place] [address] Emergency Department Summary 09/19/23 MR#: [id number] Acct: [id number] Name: DORIAN CRAMER Rep #:[id number] : 1935 88 From: Russel Pal DO PCP: Dr. Shoshana Ulrich MD Status:ADM IN Location: MS3 DG961-2 HPI HPI - GI History of Present [...] history in the abdomen. Denies urinary complaints. [facility] Medical History Alcohol abuse Alcohol use Cancer [...] is amenable to keeping the here at [facility]. Admitted to hospitalist. Patient did have another [...] (Auto) 68.4 Lymph % (Auto) 15.3 L [place] % (Auto) 6.9 Eos % (Auto) 8.1 [...] your Primary Care Provider. Call [facility] ([phone]) or report to the closest Emergency Room. Call 911 if necessary. 09/19/23 7086 <Electronically signed by Russel Pal DO> Cosigner Signature (if applicable): CC: Dr. Shoshana Ulrich MD ~ Signed [facility] Work Phone: 1(364) 840-306904-23-2024 Discharge summary Author Pola Bustamante [facility] September 06, 2023 2:51pm Note Date/Time September 05, 2023 11: 51am [facility] Physical Therapy [facility] [address] [place] [address] / REHABILITATION SERVICES DISCHARGE SUMMARY MR#: [id number] Acct: [id number] Name: DORIAN CRAMER Rep #: [id number] : 1935 88 From: Cert. WILLIE JansenT, OCS Referring Dr.: Dr. Shoshana Ulrich MD Status: REG RCR Insurance: [facility] MEDICARE S[employer] PAY INSURANCE Discharge [...] ,hips/knees flexed NEURO: denies paresthesia/tingling ,reflexes C5-6-7 1/3 PALPATION: tender UT/levator ,paraspinals ,occiput GAIT: ambulates [...] please feel free to call me at [phone]. Thank you for the referral of thispatient. Sincerely, Pola Bustamante PT, Cert MDT, OCS Balance/Gait/Functional tests Balance/Special Test Scores Oswestry Neck Score: 3 Improvement % Improvement: 90 <Electronically signed by Pola Bustamante PT, Cert. T, OCS> 09/06/23 1451 CC: Dr. Shoshana Ulrich MD ~ JLA Signed [facility] Work Phone: 1(594) 170-886406-21-[address] Foster [facility] November 03, 2022 9:27am Note Date/Time November 03, 2022 9:27 am [facility] Medical Records Department [address] [place] [address] Instructions for Home/Discharge Instructions 11/03/22 0926 MR#: [id number] Acct: [id number] Name: DORIAN CRAMER Rep #:[id number] : 1935 87 From: Sam Foster MD PCP: Dr. Shoshana Ulrich MD Status:REG IAC Discharge Instructions Diet Discharge Diet: No restrictions [...] Plan Admission Primary Reason for Your Visit: Farhat Attending Provider: Sam Foster Primary Care Provider: [...] MD; Dr. Shoshana Ulrich MD ~ Signed [facility] Work Phone: 1(721) 223-972106-21-2023 History and physical note Author Dr. Foster [facility] November 03, 2022 9:26am Note Date/Time November 03, 2022 9:26 am [facility] Medical Records Department [address] [place] [address] History & Physical Exam 11/03/22925 MR#: [id number] Acct: [id number] Name: DORIAN CRAMER Rep #:[id number] : 1935 87 From: Sam Foster MD PCP: Dr. Shoshana Ulrich MD Status:[facility] Location: [address] HPI - General General Date of Service: 11/03/22 Chief Complaint: BPH with obstruction HPI Narrative DORIAN CRAMER, is a 87 M who presents for transurethral resection of the prostate and removal of foreign object UroLift clips. PFSH Medical History (Updated 10/27/22 @ 10:27 by [...] Data Result Diagrams: 10/28/22 13:23 10/28/22 13:23 11/03/22 0926 <Electronically signed by Sam Foster MD> Cosigner Signature (if applicable): CC: Dr. Shoshana Ulrich MD; Dr. Sam Foster MD~ Signed [facility] Work Phone: 1(244) 998-330206-21-2023 Procedure [facility] 09-11-2021 NoteORIGINAL PROCEDURE: 09/11/2021 11:12 am 1. Ultrasound guided core biopsy, right parotid lesion CARRIER ASSOCIATE: Dr. Gomez REFRIGERATOR MOVER: None MATERIALS: 18 G core biopsy device [...] lesion and submitted to pathology and/or microbiology. [place] were removed. Sterile dressing placed. Post procedure [...] Sign Date: 09/11/2021 1:00:04 PM [facility]Consult note Author Martita Jacobs [facility] September 21, 2023 1:32pm Note Date/Time September 21, 2023 1:32pm [facility] Medical Records Department [address] [place] [address] Counseling Note - Pharmacy 09/21/23 1332 MR#: [id number] Acct: [id number] Name: DORIAN CRAMER Rep #:[id number] : 1935 88 From: Martita Jacobs PCP: Dr. Shoshana Ulrich MD Status:ADM IN Location: [place] [address] Pharmacy PR Med Reconciliation Pharmacy Service has performed discharge [...] signed by Martita Jacobs> Date _ Martita Pelaez Signature (if applicable): Date CC: ~ Signed [facility] Work Phone: Discharge summary Author Rosemary Fernandez [facility] September 21, 2023 12:59pm Note Date/Time September 21, 2023 12:48p [facility] Medical Records Department [address] [place] [address] Discharge Summary 09/21/23 1245 MR#: [id number] Acct: [id number] Name: DORIAN CRAMER Rep #:[id number] : 1935 88 From: Rosemary Fernandez DO PCP: Dr. Shoshana Ulrich MD Status:ADM [place] [facility] [id number] Providers Date of Admission: 09/19/23 Date of [...] M who presented to the emergency department [facility] on 09/19/2023 with bright red blood [...] 76.7 H, Lymph % (Auto) 11.7 L, [place] % (Auto) 5.8, Eos % (Auto) 5.2 [...] Self Care Charges/Coding Visit Charges Inpatient E&M: 19864 Disch Hosp >30min 09/21/23 1259 <Electronically signed by Rosemary Fernandez DO> Cosigner Signature (if applicable): CC: Dr. Shoshana Ulrich MD; Dr. Rosemary Fernandez DO; Lionel Lee, ~ Signed [facility] Work Phone: Evaluation note* Diagnosis Onset [...] chronic , with ulcer and inflammation chronic [facility] Work Phone: Evaluation note* Diagnosis Onset [...] chronic , with ulcer and inflammation chronic [facility] Work Phone: Evaluation noteNo assessment information available [facility] Work Phone: Evaluation note* Diagnosis Onset Date Resolution Status Swelling of lower limb chron ic Tobacco abuse chronic [facility] Work Phone: Evaluation note* Diagnosis Onset Date Resolution Status BRBPR (bright red blood per rectum) acute GIB (gastrointestinal bleeding) acute Acute on chronic anemia 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 Work Phone: Hospital Discharge instructionsAdditional Instructions Stop smoking. Continue to use your inhaler as previously directed, you can use 1 to 2 puffs every 4-6 hours as needed for shortness of breath. Return with increasing shortness of breath, new or worsening symptoms.[facility] Work Phone: Progress note Author Blas Arellano [facility] Note Date/Time February 12, 2025 11:09am [facility] [address] [place], [place] [address]anamika. [address] [place], [place] [id number] OFFICE VISIT Date of Service: 02/12/25 MR#: [id number] Acct: [id number] Name: DORIAN CRAMER Rep #: [id number] : 1935 Provider: Dr. Kayden Arellano MD Age/Sex: 89/M Location: [facility] Status: Signed HPI HPI History of Present Illness Details: This gentleman has past medical history significant for hypertension, unprovokedDVT, COPD and nicotine dependence. He is being planned for bladder surgery. Aspart of his workup, an ECG was done. It was noted to be abnormal with right bundle branch block and left anterior fascicular block. 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 We are asked to evaluate his cardiac risk for the proposed procedure. Patient denies any chest pains or shortness of breath either at rest or with exertion. Denies any palpitations. No lightheadedness or dizziness. No syncope or presyncope. No orthopnea. No PND. 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: No Accompanied by: Self Is patient in pain?: No Allergies tiotropium (From Spiriva with HandiHaler) Allergy (Unknown, Verified 02/12/25 10:38) unknown ibuprofen (From Motrin) Allergy (Verified 02/12/25 10:38) Swelling Medications ?Medication ?Instructions ?Recorded ?Confirmed ?Type amlodipine 5 mg tablet 5 mg PO DAILY BP 07/02/22 History artifi.tears(hypromellose)(PF) 1.7 1 drp EACH EYE KENDALL Y PRN dry eyes 09/19/23 02/12/25 History % eye drops with applicator oxybutynin chloride 10 mg 10 mg PO DAILY OAB 09/19/23 02/12/25 History tablet,extended release 24 hr oxycodone-acetaminophen 5 mg-325 1 tab PO TID PRN PRN pain 11/02/24 02/12/25 History mg tablet budesonide 160 mcg-glycopyr 9 2 inh inhalation BID THINNER SPRAYER D 01/01/25 02/12/25 History mcg-formot 4.8 mcg/actuation HFA inhaler (Breztri Aerosphere) AMITRIPT 5% LIDO 5% KETAMINE 10% topical .1-3 TIMES DA ERON PRN 01/18/25 02/12/25 History albuterol sulfate 90 mcg/actuation 2 puff inhalation Q 4H PRN 01/18/25 02/12/25 History aerosol inhaler sob/wheezing ferrous sulfate 325 mg (65 mg 325 mg PO QDAY 01/18/25 02/12/25 History iron) tablet nystatin 100,000 unit/gram topical 1 applic topical BI D yeast 01/18/25 02/12/25 History powder pregabalin 50 mg capsule 50 mg PO BID 01/18/25 History triamcinolone acetonide 0.1 % applic topical BID PRN 0 01/18/25 02/12/25 History topical cream apixaban 5 mg tablet (Eliquis) 5 mg PO BID 02/12/25 History Ejection fraction %: 55 Have you fallen in the past year?: Yes (loses balance) [facility] Medical History Cellulitis of right upper extremity Skin tear of right upper extremity Depression Arthritis Ambulates with cane Bladder disease DVT (deep venous thrombosis) Restless legs COPD (chronic obstructive pulmonary disease) History of pain when walking Neuropathy Pain Alcohol use History of echocardiogram Hypertension History of edema 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 Wears glasses Wears hearing aid in both ears Cancer Hx of gout CPAP (continuous positive airway pressure) dependence Shortness of breath on exertion Smoker Emphysema, unspecified Hypertension Restless legs Injury of back Surgical History S/P TURP (transurethral resection of prostate) History of cataract surgery History of embolic filter insertion Hx of colonoscopy with polypectomy History of hand surgery S/P insertion of spinal cord stimulator History of varicose vein stripping Hx of myringotomy History of parotidectomy History of esophagogastroduodenoscopy (EGD) History of cystoscopy Hx of basal cell carcinoma excision Hx of finger joint replacement Hx of decompressive lumbar laminectomy Family History Mother , 61 Cancer Father , 91 AD (Alzheimer's disease) Sister Multiple sclerosis Social History household members: none housing: house current occupational status: retired pets and animals: Yes pets and animals: dog(s) Smoking Status: Current every day smoker tobacco type: cigarettes Tobacco: How many years used: 69 alcohol intake: current details: On avg a couple drinks each evening substance use type: does not use caffeine: Yes Type: coffee Number of servings: 2 do you feel safe at home: Yes ROS Const Const: Negative for fatigue or weakness Eyes Eyes: Negative for change in vision ENT ENT: Positive for balance problems; Negative for dizziness Cardio Chest Pain: No Palpitations: No Edema: None Resp Respiratory: Positive for SOB with activity; Negative for SOB at rest or SOB orthopnea\\SOB lying down GI GI: Negative nausea or heartburn Musc Musc: Positive for balance problems Neuro Neuro: Negative for dizziness, lightheadedness, near syncope, syncope or weakness Endo Endo: Negative for fatigue Cardiology Exam Exam Narrative Comfortable. No apparent distress. No carotid bruits. Heart sounds 1 and 2 noted. No murmurs. Chest with decreased air entry bilaterally. Alert orientedx 3. Trace bilateral ankle edema. Supplemental Info Supplemental Information Diagnostics: Electrocardiogram Echocardiogram Chest X-Ray Abdomen/Pelvis CT Venous Doppler Study Pulmonary: Pulmonary Function Test Pulmonary Exercise Test Past Visits: Cardiology Visit Today Assessment and Plan Assessment and Plan (1) Preoperative cardiovascular examination: Plan: I would like to further risk stratify this patient by doing a Lexiscan stress Myoview and an echocardiogram. If these failed to show any significant abnormalities, then the patient may proceed with the proposed bladder surgery with an acceptable cardiac risk. (2) Coronary artery disease: Status: Chronic Plan: Coronary calcifications noted as incidental finding on CT scan of the chest. Check Lexiscan stress Myoview to evaluate physiological significance. On apixaban. Risk factor modification. (3) Abnormal ECG: Status: Chronic Plan: First-degree AV block, right bundle branch block and left anterior fascicular block. Likely underlying sick sinus syndrome. Check echocardiogram. Monitor. Avoid negative chronotropic agents. (4) Hypertension: Status: Chronic Plan: Amlodipine. (5) Dyslipidemia: Status: Chronic Plan: Target LDL cholesterol less than 70 mg/dL in view of coronary artery disease. Start atorvastatin 10 mg once daily. (6) History of DVT (deep vein thrombosis): Status: Chronic Plan: On apixaban. Also history of IVC placement. (7) Thrombocytopenia: Status: Chronic Plan: As per PCP. (8) Nicotine dependence: Status: Chronic Plan: Counseled to quit. Orders: Orders 12 Lead EKG performed by [facility] Today I10 - Essential (primary) hypertension Plan Details Follow Up: 6 Months Coding Level of Care Code Off vis,new,level 4 Diagnoses Preoperative cardiovascular examination Z01.810 Coronary artery disease I25.10 Abnormal ECG R94.31 Hypertension I10 Dyslipidemia E78.5 History of DVT (deep vein thrombosis) Z86.718 Thrombocytopenia D69.6 Nicotine dependence F17.200 Coding Level of Care Code Off vis,new,level 4 Diagnoses Preoperative cardiovascular examination Z01.810 Coronary artery disease I25.10 Abnormal ECG R94.31 Hypertension I10 Dyslipidemia E78.5 History of DVT (deep vein thrombosis) Z86.718 Thrombocytopenia D69.6 Nicotine dependence F17.200 Clinical Quality Measures Falls Risk Screening/Assistive Devices Have you fallen in the past year?: Yes (loses balance) Cardiac Ejection fraction %: 55 02/12/25 1109 <Electronically signed by Blas Arellano MD> Date _ Blas Arellano MD Cosigner Signature: Date (if applicable) CC: Dr. 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 October 152024 9:18am 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 October 152024 3:03pm 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 October 152024 5:23pm 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 October 152024 10:05am 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 October 152024 4:18pm Reason for Visit Admit Date Lumbar and sacral spondylarthritis Febru [email or web address] 12:50pm Paresthesia July 13, 2024 12:50pm DVT (deep venous thrombosis) November 03, 2024 3:03pm Rectus sheath hematoma November 03, 2024 3 :03pm Chief Complaint Admit Date 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 October 152024 9:15pm 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 October 152024 9:18am 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 October 152024 3:03pm 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 October 152024 5:23pm AM EKG November 05, 2024 5:25 am 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 October 152024 10:05am 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 October 152024 4:18pm 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 October 152024 10:42am Reason for Visit Admit Date DVT (deep venous thrombosis) November 03, 2024 3:03pm Rectus sheath hematoma November 03, 2024 3 :03pm Chief Complaint Admit Date 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 October 152024 9:15pm 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 October 152024 9:18am 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 October 152024 3:03pm 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 October 152024 5:23pm AM EKG November 05, 2024 5:25 am 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 October 152024 10:05am 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 October 152024 4:18pm 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 October 152024 10:42am Post hospitalization November 21, 2024 11:2 4am Chief Complaint Admit Date 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 October 152024 9:15pm 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 October 152024 9:18am 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 October 152024 3:03pm 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 October 152024 5:23pm AM EKG November 05, 2024 5:25 am 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 October 152024 10:05am 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 October 152024 4:18pm 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 October 152024 10:42am Post hospitalization November 21, 2024 11:2 4am RIGHT LEG SWELLING December 19, 2024 2:0 0pm Reason for Visit Admit Date DVT (deep venous thrombosis) November 03, 2024 3:03pm Rectus sheath hematoma November 03, 2024 3 :03pm DVT (deep venous thrombosis) November 21, 2 025 11:24am Rectus sheath hematoma November 21, 2024 11 :24am S/P IVC filter November 21, 2024 11:24 am Chief Complaint Admit Date 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 October 152024 9:15pm 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 October 152024 9:18am 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 October 152024 3:03pm 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 October 152024 5:23pm AM EKG November 05, 2024 5:25 am 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 October 152024 10:05am 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 October 152024 4:18pm 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 October 152024 10:42am Post hospitalization November 21, 2024 11:2 4am RIGHT LEG SWELLING December 19, 2024 2:0 0pm 2 wounds on R arm and hand January 09, 2025 9:47am Chief Complaint Admit Date 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 October 152024 9:15pm 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 October 152024 9:18am 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 October 152024 3:03pm 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 October 152024 5:23pm AM EKG November 05, 2024 5:25 am 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 October 152024 10:05am 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 October 152024 4:18pm 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 October 152024 10:42am Post hospitalization November 21, 2024 11:2 4am RIGHT LEG SWELLING December 19, 2024 2:0 0pm 2 wounds on R arm and hand January 09, 2025 9:47am Cardiac Clearance/ABN EKG ([facility]) February 12, 2025 10:28am Reason for Visit Admit Date DVT (deep venous thrombosis) November 03, 2024 3:03pm Rectus sheath hematoma November 03, 2024 3 :03pm DVT (deep venous thrombosis) November 21, 2 025 11:24am Rectus sheath hematoma November 21, 2024 11 :24am S/P IVC filter November 21, 2024 11:24 am Cellulitis of right upper extremity Augu st 2024 9:47am Skin tear of right upper extremity Augus t 2024 9:47am Abnormal ECG February 12, 2025 10:28am Coronary artery disease February 12, 2025 10:28am Dyslipidemia February 12, 2025 10:28am History of DVT (deep vein thrombosis) Se ptember 2024 10:28am Hypertension February 12, 2025 10:28am Nicotine dependence February 12, 2025 10:28am Thrombocytopenia February 12, 2025 10:28am Preoperative cardiovascular examination February 12, 2025 10:28am Chief Complaint Admit Date 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 October 152024 9:15pm 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 October 152024 9:18am 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 October 152024 3:03pm 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 October 152024 5:23pm AM EKG November 05, 2024 5:25 am 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 October 152024 10:05am 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 October 152024 4:18pm 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 October 152024 10:42am Post hospitalization November 21, 2024 11:2 4am RIGHT LEG SWELLING December 19, 2024 2:0 0pm 2 wounds on R arm and hand January 09, 2025 9:47am Cardiac Clearance/ABN EKG ([facility]) February 12, 2025 10:28am rapid breathing. copd February 19, 2025 8:25am Family History No Family History Records Found Relationship Condition Age at Onset Recorded Date/T lupe Unknown Family History?- Unknown December 2:48pm Family History?- Unknown December 2:48pm Relationship Condition Age at Onset Recorded Date/T lupe Unknown Family History?- Unknown December 1:48pm Family History?- Unknown December 1:48pm Relationship Condition Age at Onset Recorded Date/T lupe mother Malignant neoplasm Unknown father Alzheimer's disease Unknown Relationship Condition Age at Onset Recorded Date/T lupe mother Malignant neoplasm Unknown father Alzheimer's disease Unknown sister Multiple sclerosis Unknown Advance Directives No Advanced Directives Records Found Advance Directive Response Recorded Date/ Time Advance Directives Yes June 02, 2016 3:11pm Living Will Yes September 11, 2020 2:04pm Power of Crm Developer Yes September 11 2:04pm Advance Directive Response Recorded Date/ Time Advance Directives Yes June 02, 2016 3:11pm Living Will No September 08, 2021 10:14am Power of Crm Developer No September 08 10:14am Advance Directive Response Recorded Date/ Time Advance Directives Yes June 02, 2016 2:11pm Living Will No November 25th, 2 022 1:41pm Power of Crm Developer No April 09, 2022 1:41pm Advance Directive Response Recorded Date/ Time Advance Directives Yes June 02, 2016 3:11pm Living Will No April 09, 2 022 2:41pm Power of Crm Developer No April 09, 2022 2:41pm Advance Directive Response Recorded Date/ Time Advance Directives Yes June 02, 2016 3:11pm Living Will Yes October 27, 2022 10:19am Power of Crm Developer Yes October 27 10:19am Advance Directive Response Recorded Date/ Time Name of Medical Power of Crm Developer . November 03, 2022 2:22pm Advance Directives Yes June 02, 2016 3:11pm Living Will Yes November 03, 2022 2:22pm Power of Crm Developer Yes November 03 2:22pm Advance Directive Response Recorded Date/ Time Advance Directives Yes June 02, 2016 2:11pm Living Will Yes November 03, 2022 1:22pm Power of Crm Developer Yes November 03 1:22pm Advance Directive Response Recorded Date/ Time Name of Medical Power of Crm Developer July 21, 2023 8:23am Advance Directives Yes June 02, 2016 2:11pm Living Will Yes July 21, 2023 8:23am Power of Crm Developer Yes July 20 8:23am Advance Directive Response Recorded Date/ Time Name of Medical Power of Crm Developer July 21, 2023 9:23am Advance Directives Yes June 02, 2016 3:11pm Living Will Yes July 21, 2023 9:23am Power of Crm Developer Yes July 20 9:23am Advance Directive Response Recorded Date/ Time Advance Directives Yes June 02, 2016 3:11pm Living Will No September 19, 2023 12 :09pm Power of Crm Developer No September 19, 2023 12:09pm Name of Medical Power of Crm Developer July 21, 2023 9:23am Advance Directive Response Recorded Date/ Time Advance Directives Yes June 02, 2016 3:11pm Living Will No September 19, 2023 2: 13pm Power of Crm Developer No September 19, 2023 2:13pm Name of Medical Power of Crm Developer July 21, 2023 9:23am Advance Directive Response Recorded Date/ Time Advance Directives Yes June 22, 2024 9:55am Living Will Yes May 26 1:00pm Do you have a Healthcare Power of Crm Developer? Yes May 26, 2024 1:00pm Name of Medical Power of Crm Developer May 26, 2024 1:00pm Living Will No June 20 8:30pm Do you have a Healthcare Power of Crm Developer? No June 20, 2024 8:30pm Advance Directive Response Recorded Date/ Time Do you have a Healthcare Power of Crm Developer? Yes November 02, 2024 3:46pm Name of Medical Power of Crm Developer [employer]EP[employer] November 02, 2024 3:46pm Advance Directives Yes June 22, 2024 9:55am Advance Directive Response Recorded Date/ Time Do you have a Healthcare Power of Crm Developer? Yes November 02, 2024 7:55pm Name of Medical Power of Crm Developer [employer] November 02, 2024 3:46pm Advance Directives Yes June 22, 2024 9:55am Advance Directive Response Recorded Date/ Time Do you have a Healthcare Power of Crm Developer? Yes November 02, 2024 7:55pm Name of Medical Power of Crm Developer [employer] November 02, 2024 3:46pm Do you have a Healthcare Power of Crm Developer? Yes February 19, 2025 8:41am Advance Directives Yes June 22, 2024 9:55am Summary Purpose Additional Source Comments Goals (unrecognized [...] content) No Status Records FoundNo Status Records FoundNo Status Records Found INFORMATION SOURCE (unrecogn ized section and content) DATE CREATED AUTHOR 09/15/2021 [facility] DATE CREATED AUTHOR AUTHOR'S ORGANIZ ATION 12/16/2024 [facility] DATE CREATED AUTHOR AUTHOR'S ORGANIZ ATION 02/28/2025 [facility] Care Teams (unrecognized sec tion and content) [...] DO Emergency Provider Active Dr. Rosemary Fernandez , DO Admit Provider, Attending Provide r Active Team Status: Active Member Role Status Dates Dr. Shoshana Ulrich MD Primary Care Provider Active Dr. Russel Pal DO Emergency Provider Active Dr. Rosemary Fernandez , DO Admit Provider, Other Provider Ac tive Dr. Lionel Lee , DO Attending Provider Active Team Status: Active Member Role Status Dates Dr. Shoshana Ulrich MD Primary Care Provider Active Dr. Russel Pal DO Emergency Provider Active Dr. Rosemary Fernandez , DO Admit Provider, Att ending Provider, Other Provider Active Team Status: Active Member Role Status Dates Dr. Shoshana Ulrich MD Primary Care Provider Active Dr. Lionel Lee , DO Attending Provider Active Team Status: Inactive Member Role Status Dates Dr. Shoshana Ulrich MD Primary Care Provider Active Dr. Russel Pal DO Emergency Provider Active Dr. Rosemary Fernandez , DO Admit Provider, Attending Provide r Active [...] July 24, 2024 End: July 24, 2024 Team Status: Inactive Member Role Status Dates Dr. Shoshana Ulrich MD Primary Care Provider Active Start: July 13, 2024 End: July 13, 2024 Dr. Jose Figueroa MD Attending Provider Active Start: July 13, 2024 End: July 13, 2024 Dr. Girish Rucker MD Referring Provider Active S tart: July 13, 2024 End: July 13, 2024 Team Status: Active Member Role Status Dates Dr. Shoshana Ulrich MD Primary Care Provider Active Start: November 02, 2024 Dr. Rand Rollins DO Referring Provider Active Start: November 02, 2024 Dr. Rand Rollins DO Emergency Provider Active Start: November 02, 2024 Dr. Raghav Serrano DO Admit Provider Active Start: November 02, 2024 Dr. Raghav Serrano DO Attending Provider Active Start: November 02, 2024 Team Status: Active Member Role Status Dates Dr. Shoshana Ulrich MD Primary Care Provider Active Start: November 02, 2024 Dr. Rand Rollins DO Referring Provider Active Start: November 02, 2024 Dr. Rand Rollins DO Emergency Provider Active Start: November 02, 2024 Dr. Raghav Serrano DO Admit Provider Active Start: November 02, 2024 Dr. Raghav Serrano DO Attending Provider Active Start: November 02, 2024 Dr. Raghav Serrano DO Other Provider Active Start: November 02, 2024 Team Status: Active Member Role Status Dates Dr. Shoshana Ulrich MD Primary Care Provider Active Start: November 03, 2024 Dr. Rand Rollins DO Referring Provider Active Start: November 03, 2024 Dr. Rand Rollins DO Emergency Provider Active Start: November 03, 2024 Dr. Raghav Serrano DO Admit Provider Active Start: November 03, 2024 Dr. Raghav Serrano DO Other Provider Active Start: November 03, 2024 Dr. Rylie Arreaga MD Attending Provider Active Start: November 03, 2024 Dr. Rylie Arreaga MD Other Provider Active Star t: November 03, 2024 Team Status: Inactive Member Role Status Dates Dr. Shoshana Ulrich MD Primary Care Provider Active Start: November 03, 2024 End: November 06, 2024 Dr. Rand Rollins DO Referring Provider Active Start: November 03, 2024 End: November 06, 2024 Dr. Rand Rollins DO Emergency Provider Active Start: November 03, 2024 End: November 06, 2024 Dr. Raghav Serraon DO Admit Provider Active Start: November 03, 2024 End: November 06, 2024 Dr. Raghav Serrano DO Other Provider Active Start: November 03, 2024 End: November 06, 2024 Dr. Daniel Neal DO Attending Provider Active Start: November 03, 2024 End: November 06, 2024 Dr. Rylie Arreaga MD Other Provider Active Star t: November 03, 2024 End: November 06, 2024 Dr. Santana Mason MD Other Provider Active Start : November 03, 2024 End: November 06, 2024 Team Status: Active Member Role Status Dates Dr. Shoshana Ulrich MD Primary Care Provider Active Start: November 04, 2024 Dr. Santana Mason MD Attending Provider Active S tart: November 04, 2024 Team Status: Active Member Role Status Dates Dr. Shoshana Ulrich MD Primary Care Provider Active Start: November 04, 2024 Dr. Rand Rollins DO Referring Provider Active Start: November 04, 2024 Dr. Rand Rollins DO Emergency Provider Active Start: November 04, 2024 Dr. Raghav Serrano DO Admit Provider Active Start: November 04, 2024 Dr. Raghav Mosteller , DO Other Provider Active Start: November 04, 2024 Dr. Daniel Neal , DO Attending Provider Active Start: November 04, 2024 Dr. Daniel Neal , DO Other Provider Active S tart: November 04, 2024 Dr. Rylie Arreaga MD Other Provider Active Star t: November 04, 2024 Dr. Santana Mason MD Other Provider Active Start : November 04, 2024 Team Status: Active Member Role Status Dates Dr. Shoshana Ulrich MD Primary Care Provider Active Start: November 05, 2024 Dr. Rand Rollins , Referring Provider Active Start: November 05, 2024 Dr. Rand Rollins , Emergency Provider Active Start: November 05, 2024 Dr. Raghav Serrano , DO Admit Provider Active Start: November 05, 2024 Dr. Raghav Serrano DO Other Provider Active Start: November 05, 2024 Dr. Daniel Neal , DO Other Provider Active S tart: November 05, 2024 Dr. Rylie Arreaga MD Other Provider Active Star t: November 05, 2024 Dr. Santana Mason MD Attending Provider Active S tart: November 05, 2024 Dr. Santana Mason MD Other Provider Active Start : November 05, 2024 Team Status: Active Member Role Status Dates Dr. Shoshana Ulrich MD Primary Care Provider Active Start: November 05, 2024 Dr. Rand Rollins DO Referring Provider Active Start: November 05, 2024 Dr. Rand Rollins DO Emergency Provider Active Start: November 05, 2024 Dr. Raghav Serrano , DO Admit Provider Active Start: November 05, 2024 Dr. Raghav Serrano DO Other Provider Active Start: November 05, 2024 Dr. Daniel Neal DO Attending Provider Active Start: November 05, 2024 Dr. Daniel Neal , DO Other Provider Active S tart: November 05, 2024 Dr. Rylie Arreaga MD Other Provider Active Star t: November 05, 2024 Dr. Santana Mason MD Other Provider Active Start : November 05, 2024 Team Status: Active Member Role/Relationship Status Dates Dr. Shoshana Ulrich MD Primary Care Provider Active Team Status: Inactive Member Role/Relationship Status Dates Dr. Shoshana Ulrich MD Primary Care Provider Active Start: July 24, 2024 End: July 24, 2024 Dr. Shoshana Ulrich MD Attending Provider Active Start: July 24, 2024 End: July 24, 2024 Team Status: Active Member Role/Relationship Status Dates Dr. Shoshana Ulrich MD Primary Care Provider Active Start: November 02, 2024 Dr. Rand Rollins DO Emergency Provider Active Start: November 02, 2024 Dr. Raghav Serrano DO Admit Provider Active Start: November 02, 2024 Dr. Raghav Serrano DO Attending Provider Active Start: November 02, 2024 Dr. Raghav Serrano DO Other Provider Active Start: November 02, 2024 Team Status: Active Member Role/Relationship Status Dates Dr. Shoshana Ulrich MD Primary Care Provider Active Start: November 03, 2024 Dr. Rand Rollins DO Emergency Provider Active Start: November 03, 2024 Dr. Raghav Serrano DO Admit Provider Active Start: November 03, 2024 Dr. Raghav Serrano DO Other Provider Active Start: November 03, 2024 Dr. Rylie Arreaga MD Attending Provider Active Start: November 03, 2024 Dr. Rylie Arreaga MD Other Provider Active Star t: November 03, 2024 Team Status: Inactive Member Role/Relationship Status Dates Dr. Shoshana Ulrich MD Primary Care Provider Active Start: November 03, 2024 End: November 06, 2024 Dr. Rand Rollins DO Referring Provider Active Start: November 03, 2024 End: November 06, 2024 Dr. Rand Rollins DO Emergency Provider Active Start: November 03, 2024 End: November 06, 2024 Dr. Raghav Serrano DO Admit Provider Active Start: November 03, 2024 End: November 06, 2024 Dr. Raghav Serrano DO Other Provider Active Start: November 03, 2024 End: November 06, 2024 Dr. Daniel Neal DO Attending Provider Active Start: November 03, 2024 End: November 06, 2024 Dr. Rylie Arreaga MD Other Provider Active Star t: November 03, 2024 End: November 06, 2024 Dr. Santana Mason MD Other Provider Active Start : November 03, 2024 End: November 06, 2024 Team Status: Active Member Role/Relationship Status Dates Dr. Shoshana Ulrich MD Primary Care Provider Active Start: November 04, 2024 Dr. Santana Mason MD Attending Provider Active S tart: November 04, 2024 Team Status: Active Member Role/Relationship Status Dates Dr. Shoshana Ulrich MD Primary Care Provider Active Start: November 04, 2024 Dr. Rand Rollins DO Emergency Provider Active Start: November 04, 2024 Dr. Raghav Serrano , Admit Provider Active Start: November 04, 2024 Dr. Raghav Serrano DO Other Provider Active Start: November 04, 2024 Dr. Daniel Neal DO Attending Provider Active Start: November 04, 2024 Dr. Daniel Neal , Other Provider Active S tart: November 04, 2024 Dr. Rylie Arreaga MD Other Provider Active Star t: November 04, 2024 Dr. Santana Mason MD Other Provider Active Start : November 04, 2024 Team Status: Active Member Role/Relationship Status Dates Dr. Shoshana Ulrich MD Primary Care Provider Active Start: November 05, 2024 End: November 05, 2024 Dr. Blas Arellano MD Attending Provider Active Start: November 05, 2024 End: November 05, 2024 Dr. Raghav Serrano DO Referring Provider Active Start: November 05, 2024 End: November 05, 2024 Team Status: Active Member Role/Relationship Status Dates Dr. Shoshana Ulrich MD Primary Care Provider Active Start: November 05, 2024 Dr. Rand Rollins DO Referring Provider Active Start: November 05, 2024 Dr. Rand Rollins DO Emergency Provider Active Start: November 05, 2024 Dr. Raghav Serrano DO Admit Provider Active Start: November 05, 2024 Dr. Raghav Srerano DO Other Provider Active Start: November 05, 2024 Dr. Daniel Neal DO Other Provider Active S tart: November 05, 2024 Dr. Rylie Arreaga MD Other Provider Active Star t: November 05, 2024 Dr. Santana Mason MD Attending Provider Active S tart: November 05, 2024 Dr. Santana Mason MD Other Provider Active Start : November 05, 2024 Team Status: Active Member Role/Relationship Status Dates Dr. Shoshana Ulrich MD Primary Care Provider Active Start: November 05, 2024 Dr. Rand Rollins DO Emergency Provider Active Start: November 05, 2024 Dr. Raghav Serrano DO Admit Provider Active Start: November 05, 2024 Dr. Raghav Serrano , Other Provider Active Start: November 05, 2024 Dr. Daniel Neal , Attending Provider Active Start: November 05, 2024 Dr. Daniel Neal , Other Provider Active S tart: November 05, 2024 Dr. Rylie Arreaga MD Other Provider Active Star t: November 05, 2024 Dr. Santana Mason MD Other Provider Active Start : November 05, 2024 Team Status: Active Member Role/Relationship Status Dates Dr. Shoshana Ulrich MD Primary Care Provider Active Start: November 06, 2024 Dr. Rand Rollins , Emergency Provider Active Start: November 06, 2024 Dr. Raghav Serrano DO Admit Provider Active Start: November 06, 2024 Dr. Raghav Serrano DO Other Provider Active Start: November 06, 2024 Dr. Daniel Neal DO Attending Provider Active Start: November 06, 2024 Dr. Daniel Neal DO Other Provider Active S tart: November 06, 2024 Dr. Rylie Arreaga MD Other Provider Active Star t: November 06, 2024 Dr. Santana Mason MD Other Provider Active Start : November 06, 2024 Team Status: Inactive Member Role/Relationship Status Dates Dr. Shoshana Ulrich MD Primary Care Provider Active Start: November 12, 2024 End: November 12, 2024 ISAAC Decker Attending Provider Active St art: November 12, 2024 End: November 12, 2024 Football Pad Repairer Relationship Specialty Start Date End Date Jose Figueroa MD Referring Neurology 07/24/24 Team Status: Active Member Role/Relationship Status Dates Dr. Shoshana Ulrich MD Primary Care Provider Active Start: November 04, 2024 Dr. Santana Mason MD Attending Provider Active S tart: November 04, 2024 Dr. Daniel Neal DO Referring Provider Active Start: November 04, 2024 Team Status: Inactive Member Role/Relationship Status Dates Dr. Shoshana Ulrich MD Primary Care Provider Active Start: November 21, 2024 End: November 21, 2024 Dr. Shoshana Ulrich MD Referring Provider Active Start: November 21, 2024 End: November 21, 2024 AARON Gonzales Attending Provider Active Star t: November 21, 2024 End: November 21, 2024 Football Pad Repairer Relationship Specialty Start Date End Date Jose Figueroa MD Referring Neurology 07/24/24 Team Status: Active Member Role/Relationship Status Dates Dr. Shoshana Ulrich MD Primary Care Provider Active Start: November 02, 2024 Dr. Rand Rollins DO Emergency Provider Active Start: November 02, 2024 Dr. Raghav Serrano DO Admit Provider Active Start: November 02, 2024 Dr. Raghav Serrano DO Attending Provider Active Start: November 02, 2024 Dr. Raghav Serrano DO Other Provider Active Start: November 02, 2024 Team Status: Active Member Role/Relationship Status Dates Dr. Shoshana Ulrich MD Primary Care Provider Active Start: November 03, 2024 Dr. Rand Rollins DO Emergency Provider Active Start: November 03, 2024 Dr. Raghav Serrano DO Admit Provider Active Start: November 03, 2024 Dr. Raghav Serrano DO Other Provider Active Start: November 03, 2024 Dr. Rylie Arreaga MD Attending Provider Active Start: November 03, 2024 Dr. Rylie Arreaga MD Other Provider Active Star t: November 03, 2024 Team Status: Inactive Member Role/Relationship Status Dates Dr. Shoshana Ulrich MD Primary Care Provider Active Start: November 03, 2024 End: November 06, 2024 Dr. Rand Rollins DO Referring Provider Active Start: November 03, 2024 End: November 06, 2024 Dr. Rand Rollins DO Emergency Provider Active Start: November 03, 2024 End: November 06, 2024 Dr. Raghav Serrano DO Admit Provider Active Start: November 03, 2024 End: November 06, 2024 Dr. Raghav Serrano DO Other Provider Active Start: November 03, 2024 End: November 06, 2024 Dr. Daniel Neal DO Attending Provider Active Start: November 03, 2024 End: November 06, 2024 Dr. Rylie Arreaga MD Other Provider Active Star t: November 03, 2024 End: November 06, 2024 Dr. Santana Mason MD Other Provider Active Start : November 03, 2024 End: November 06, 2024 Team Status: Active Member Role/Relationship Status Dates Dr. Shoshana Ulrich MD Primary Care Provider Active Start: November 04, 2024 Dr. Santana Mason MD Attending Provider Active S tart: November 04, 2024 Dr. Daniel Neal DO Referring Provider Active Start: November 04, 2024 Team Status: Active Member Role/Relationship Status Dates Dr. Shoshana Ulrich MD Primary Care Provider Active Start: November 04, 2024 Dr. Rand Rollins DO Emergency Provider Active Start: November 04, 2024 Dr. Raghav Serrano DO Admit Provider Active Start: November 04, 2024 Dr. Raghav Serrano DO Other Provider Active Start: November 04, 2024 Dr. Daniel Neal DO Attending Provider Active Start: November 04, 2024 Dr. Daniel Neal DO Other Provider Active S tart: November 04, 2024 Dr. Rylie Arreaga MD Other Provider Active Star t: November 04, 2024 Dr. Santana Mason MD Other Provider Active Start : November 04, 2024 Team Status: Active Member Role/Relationship Status Dates Dr. Shoshana Ulrich MD Primary Care Provider Active Start: November 05, 2024 End: November 05, 2024 Dr. Blas Arellano MD Attending Provider Active Start: November 05, 2024 End: November 05, 2024 Dr. Raghav Serrano DO Referring Provider Active Start: November 05, 2024 End: November 05, 2024 Team Status: Active Member Role/Relationship Status Dates Dr. Shoshana Ulrich MD Primary Care Provider Active Start: November 05, 2024 Dr. Rand Rollins DO Referring Provider Active Start: November 05, 2024 Dr. Rand Rollins , DO Emergency Provider Active Start: November 05, 2024 Dr. Raghav Serrano , DO Admit Provider Active Start: November 05, 2024 Dr. Raghav Serrano , DO Other Provider Active Start: November 05, 2024 Dr. Daniel Neal , DO Other Provider Active S tart: November 05, 2024 Dr. Rylie Arreaga MD Other Provider Active Star t: November 05, 2024 Dr. Santana Mason MD Attending Provider Active S tart: November 05, 2024 Dr. Santana Mason MD Other Provider Active Start : November 05, 2024 Team Status: Active Member Role/Relationship Status Dates Dr. Shoshana Ulrich MD Primary Care Provider Active Start: November 05, 2024 Dr. Rand Rollins , DO Emergency Provider Active Start: November 05, 2024 Dr. Raghav Serrano , DO Admit Provider Active Start: November 05, 2024 Dr. Raghav Serrano , DO Other Provider Active Start: November 05, 2024 Dr. Daniel Neal , DO Attending Provider Active Start: November 05, 2024 Dr. Daniel Neal , DO Other Provider Active S tart: November 05, 2024 Dr. Rylie Arreaga MD Other Provider Active Star t: November 05, 2024 Dr. Santana Mason MD Other Provider Active Start : November 05, 2024 Team Status: Active Member Role/Relationship Status Dates Dr. Shoshana Ulrich MD Primary Care Provider Active Start: November 06, 2024 Dr. Rand Rollins , Emergency Provider Active Start: November 06, 2024 Dr. Raghav Serrano , DO Admit Provider Active Start: November 06, 2024 Dr. Raghav Serrano , DO Other Provider Active Start: November 06, 2024 Dr. Daniel Neal , DO Attending Provider Active Start: November 06, 2024 Dr. Daniel Neal , DO Other Provider Active S tart: November 06, 2024 Dr. Rylie Arreaga MD Other Provider Active Star t: November 06, 2024 Dr. Santana Mason MD Other Provider Active Start : November 06, 2024 Team Status: Inactive Member Role/Relationship Status Dates Dr. Shoshana Ulrich MD Primary Care Provider Active Start: November 12, 2024 End: November 12, 2024 ISACA Decker Attending Provider Active St art: November 12, 2024 End: November 12, 2024 Team Status: Inactive Member Role/Relationship Status Dates Dr. Shoshana Ulrich MD Primary Care Provider Active Start: November 21, 2024 End: November 21, 2024 Dr. Shoshana Ulrich MD Referring Provider Active Start: November 21, 2024 End: November 21, 2024 AARON Gonzales Attending Provider Active Star t: November 21, 2024 End: November 21, 2024 Team Status: Inactive Member Role/Relationship Status Dates Dr. Shoshana Ulrich MD Primary Care Provider Active Start: December 19, 2024 End: December 19, 2024 AARON Gonzales Attending Provider Active Star t: December 19, 2024 End: December 19, 2024 AARON Gonzales Referring Provider Active Star t: December 19, 2024 End: December 19, 2024 Team Status: Active Member Role/Relationship Status Dates Dr. Shoshana Ulrich MD Primary Care Provider Active Start: December 19, 2024 Dr. Santana Mason MD Attending Provider Active S tart: December 19, 2024 Team Status: Inactive Member Role/Relationship Status Dates Dr. Shoshana Ulrich MD Primary Care Provider Active Start: January 09, 2025 End: January 09, 2025 Dr. Shoshana Ulrich MD Referring Provider Active Start: January 09, 2025 End: January 09, 2025 Eduardo WALKER PA Attending Provider Active Start: January 09, 2025 End: January 09, 2025 Team Status: Active Member Role/Relationship Status Dates Dr. Shoshana Ulrich MD Primary care physician Active Team Status: Active Member Role/Relationship Status Dates Dr. Shoshana Ulrich MD Primary care physician Active Start: November 02, 2024 Dr. Rand Rollins , Emergency Departm ent Physician Active Start: November 02, 2024 Dr. Raghav Serrano DO Admitting physician Active Start: November 02 Dr. Raghav Serrano DO Attending physician Active Start: November 02 Dr. Raghav Serrano DO Nurse Practitioner Active Start: November 02 Team Status: Active Member Role/Relationship Status Dates Dr. Shoshana Ulrich MD Primary care physician Active Start: November 03, 2024 Dr. Rand Rollins DO Emergency Departm ent Physician Active Start: November 03, 2024 Dr. Raghav Serrano DO Admitting physician Active Start: November 03 Dr. Raghav Serrano DO Nurse Practitioner Active Start: November 03 Dr. Rylie Arreaga MD Attending physician Active Start: November 03, 2024 Dr. Rylie Arreaga MD Nurse Practitioner Active Start: November 03, 2024 Team Status: Inactive Member Role/Relationship Status Dates Dr. Shoshana Ulrich MD Primary care physician Active Start: November 03, 2024 End: November 06, 2024 Dr. Rand Rollins DO Referring Provider Active Start: November 03, 2024 End: November 06, 2024 Dr. Rand Rollins DO Emergency Departm ent Physician Active Start: November 03, 2024 End: November 06, 2024 Dr. Raghav Serrano DO Admitting physician Active Start: November 03 End: November 06, 2024 Dr. Raghav Serrano DO Nurse Practitioner Active Start: November 03 End: November 06, 2024 Dr. Daniel Neal DO Attending physician Active Start: November 03, 2024 End: November 06, 2024 Dr. Rylie Arreaga MD Nurse Practitioner Active Start: November 03, 2024 End: November 06, 2024 Dr. Santana Mason MD Nurse Practitioner Active S tart: November 03, 2024 End: November 06, 2024 Team Status: Active Member Role/Relationship Status Dates Dr. Shoshana Ulrich MD Primary care physician Active Start: November 04, 2024 Dr. Santana Mason MD Attending physician Active Start: November 04, 2024 Dr. Daniel Neal DO Referring Provider Active Start: November 04, 2024 Team Status: Active Member Role/Relationship Status Dates Dr. Shoshana Ulrich MD Primary care physician Active Start: November 04, 2024 Dr. Rand Rollins DO Emergency Departm ent Physician Active Start: November 04, 2024 Dr. Raghav Serrano DO Admitting physician Active Start: November 04 Dr. Raghav Serrano DO Nurse Practitioner Active Start: November 04 Dr. Daniel Neal , Attending physician Active Start: November 04, 2024 Dr. Daniel Neal , DO Nurse Practitioner Active Start: November 04, 2024 Dr. Rylie Arreaga MD Nurse Practitioner Active Start: November 04, 2024 Dr. Santana Mason MD Nurse Practitioner Active S tart: November 04, 2024 Team Status: Active Member Role/Relationship Status Dates Dr. Shoshana Ulrich MD Primary care physician Active Start: November 05, 2024 End: November 05, 2024 Dr. Blas Arellano MD Attending physician Active Start: November 05, 2024 End: November 05, 2024 Dr. Raghav Serrano , Referring Provider Active Start: November 05, 2024 End: November 05, 2024 Team Status: Active Member Role/Relationship Status Dates Dr. Shoshana Ulrich MD Primary care physician Active Start: November 05, 2024 Dr. Rand Rollins , Referring Provider Active Start: November 05, 2024 Dr. Rand Rollins , DO Emergency Departm ent Physician Active Start: November 05, 2024 Dr. Raghav Serrano , Admitting physician Active Start: November 05 Dr. Raghav Serrano , Nurse Practitioner Active Start: November 05 Dr. Daniel Neal , Nurse Practitioner Active Start: November 05, 2024 Dr. Rylie Arreaga MD Nurse Practitioner Active Start: November 05, 2024 Dr. Santana Mason MD Attending physician Active Start: November 05, 2024 Dr. Santana Mason MD Nurse Practitioner Active S tart: November 05, 2024 Team Status: Active Member Role/Relationship Status Dates Dr. Shoshana Ulrich MD Primary care physician Active Start: November 05, 2024 Dr. Rand Rollins , DO Emergency Departm ent Physician Active Start: November 05, 2024 Dr. Raghav Serrano , Admitting physician Active Start: November 05 Dr. Raghav Serrano , Nurse Practitioner Active Start: November 05 Dr. Daniel Neal , DO Attending physician Active Start: November 05, 2024 Dr. Daniel Neal , DO Nurse Practitioner Active Start: November 05, 2024 Dr. Rylie Arreaga MD Nurse Practitioner Active Start: November 05, 2024 Dr. Santana Mason MD Nurse Practitioner Active S tart: November 05, 2024 Team Status: Active Member Role/Relationship Status Dates Dr. Shoshana lUrich MD Primary care physician Active Start: November 06, 2024 Dr. Rand Rollins , DO Emergency Departm ent Physician Active Start: November 06, 2024 Dr. Raghav Serrano , DO Admitting physician Active Start: November 06 Dr. Raghav Serrano , DO Nurse Practitioner Active Start: November 06 Dr. Daniel Neal , Attending physician Active Start: November 06, 2024 Dr. Daniel Neal , DO Nurse Practitioner Active Start: November 06, 2024 Dr. Rylie Arreaga MD Nurse Practitioner Active Start: November 06, 2024 Dr. Santana Mason MD Nurse Practitioner Active S tart: November 06, 2024 Team Status: Inactive Member Role/Relationship Status Dates Dr. Shoshana Ulrich MD Primary care physician Active Start: November 12, 2024 End: November 12, 2024 ISAAC Decker Attending physician Active S tart: November 12, 2024 End: November 12, 2024 Team Status: Inactive Member Role/Relationship Status Dates Dr. Shoshana Ulrich MD Primary care physician Active Start: November 21, 2024 End: November 21, 2024 Dr. Shoshana Ulrich MD Referring Provider Active Start: November 21, 2024 End: November 21, 2024 AARON Gonzales Attending physician Active Sta rt: November 21, 2024 End: November 21, 2024 Team Status: Inactive Member Role/Relationship Status Dates Dr. Shoshana Ulrich MD Primary care physician Active Start: December 19, 2024 End: December 19, 2024 AARON Gonzales Attending physician Active Sta rt: December 19, 2024 End: December 19, 2024 AARON Gonzales Referring Provider Active Star t: December 19, 2024 End: December 19, 2024 Team Status: Active Member Role/Relationship Status Dates Dr. Shoshana Ulrich MD Primary care physician Active Start: December 19, 2024 Dr. Santana Mason MD Attending physician Active Start: December 19, 2024 AARON Gonzales Referring Provider Active Star t: December 19, 2024 Team Status: Inactive Member Role/Relationship Status Dates Dr. Shoshana Ulrich MD Primary care physician Active Start: January 09, 2025 End: January 09, 2025 Dr. Shoshana Ulrich MD Referring Provider Active Start: January 09, 2025 End: January 09, 2025 Eduardo WALKER, PA Attending physician Active Start: January 09, 2025 End: January 09, 2025 Team Status: Inactive Member Role/Relationship Status Dates Dr. Shoshana Ulrich MD Primary care physician Active Start: January 24, 2025 End: January 24, 2025 Dr. Shoshana Ulrich MD Attending physician Active Start: January 24, 2025 End: January 24, 2025 Team Status: Inactive Member Role/Relationship Status Dates Dr. Shoshana Ulrich MD Primary care physician Active Start: February 12, 2025 End: February 12, 2025 Dr. Shoshana Ulrich MD Referring Provider Active Start: February 12, 2025 End: February 12, 2025 Dr. Blas Arellano MD Attending physician Active Start: February 12, 2025 End: February 12, 2025 Team Status: Inactive Member Role/Relationship Status Dates Dr. Shoshana Ulrich MD Primary care physician Active Start: February 19, 2025 End: February 19, 2025 Chito Werner MD Emergency Department Physician Activ e Start: February 19, 2025 End: February 19, 2025 Source Comments (unrecognize d section and content) In the event this informatio n is protected by the Federal Confidentiality of Alcohol and Drug Abuse Patient Records regulations: The Federal rules restrict any use of the information to criminally investigate or prosecute any alcohol or drug abuse patient.[facility] the event this information is protected by the Federal Confidentiality of Alcohol and Drug Abuse Patient Records regulations: The Federal rules restrict any use of the information to criminally investigate or prosecute any alcohol or drug abuse patient.[facility] Reason for Visit (unrecogniz ed section and content) Reason Comments Appointment Patient scheduled in correctly as advised per provider- he advised should be with Neuromuscular. Reason Comments New Patient Low Back Pain Left is worse FOR RECORDS PERTAINING TO PATIENTS WHO ARE [...] BE BASED ON THE PRIMARY CLINICAL RECORDS. [employer] provides no warranty or guarantee of the accuracy or completeness of information in this document.
== END | disposition home or self-care (01) ==
LOC: MRI 16:18
PROVIDERS: PCP Family Medicine; Referring Provider Anesthesiology Pain Medicine; Visit Provider Anesthesiology Pain Medicine
DX: M96.1 Postlaminectomy syndrome, not elsewhere classified (principal)
CPT/HCPCS: 72148

== ENCOUNTER 2025-03-04 16:25 | Inpatient (IN) | payer MEDICARE, SELFPAY ==
[2025-03-04 16:26] VITALS: BP 120/90; PULSE 81; RESP 14; TEMP 37.3; O2SAT 99; BMI 25.7
--- NOTE | 2025-03-04 17:19 | ED.VIS.BACK ---
HPI History of Present Illness Chief Complaint: Back Informant: patient Onset/Context/Timing Onset: Days Context: Gradual Onset Timing: Continuous Quality: Sharp Location: Lumbar Current Severity: Severe Maximum Severity: Severe Worsened by: improves with Movement Relieved by: Nothing Associated Symptoms Associated Symptoms: Constipation; Negative for Numbness, Tingling, Radiation to Right Leg, Radiation to Left Leg, Fever, Abdominal Pain, Dysuria, Unable to Ambulate, Unable to Transfer, Urinary Retention, Urinary Incontinence or Fecal Incontinence Narrative Narrative: 89-year-old male history of prior 3 lumbar back surgeries. He is on chronic pain management. He sees Dr. Castañeda. Been taking 4 oxycodone per day chronically. And states he has been out of his medication for the last 4 to 5 days. Is having back pain. He has had some falls. Presented back pain prior to the falls. Says he is constipated from the pain medication. He called his pain management physician who is unable to get him in the office today. He has had back injections within the last several weeks. He denies any bowel or bladder incontinence. He denies any radiation to his legs or worsening leg weakness. He has chronic leg weakness. 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 Wears glasses Wears hearing aid in both ears Cancer Hx of gout CPAP (continuous positive airway pressure) dependence Shortness of breath on exertion Smoker Emphysema, unspecified Hypertension Restless legs Injury of back Medical History no medical history Home Medications ?Medication ?Instructions ?Recorded ?Last Taken ?Type amlodipine 5 mg tablet 5 mg PO DAILY BP 07/02/22 03/04/25 History oxybutynin chloride 10 mg 10 mg PO DAILY OAB 09/19/23 03/04/25 History tablet,extended release 24 hr budesonide 160 mcg-glycopyr 9 2 inh inhalation BID COPD 01/01/25 03/04/25 History mcg-formot 4.8 mcg/actuation HFA inhaler (Breztri Aerosphere) albuterol sulfate 90 mcg/actuation 2 puff inhalation Q4H PRN 01/18/25 Unknown History aerosol inhaler sob/wheezing apixaban 5 mg tablet (Eliquis) 5 mg PO BID 02/12/25 03/04/25 History buprenorphine 10 mcg/hour weekly 1 patch topical QWEEK 02/21/25 02/25/25 History transdermal patch Allergy/AdvReac Type Severity Reaction Status Date / Time tiotropium (From Spiriva Allergy Unknown unknown Verified 02/21/25 18:11 with HandiHaler) ibuprofen (From Motrin) Allergy Swelling Verified 02/21/25 18:11 Family History Mother , 61 Cancer Father , 91 AD (Alzheimer's disease) Sister Multiple sclerosis Family History no significant family his Surgical History S/P TURP (transurethral resection of prostate) History of cataract surgery History of embolic filter insertion Hx of colonoscopy with polypectomy History of hand surgery S/P insertion of spinal cord stimulator History of varicose vein stripping Hx of myringotomy History of parotidectomy History of esophagogastroduodenoscopy (EGD) History of cystoscopy Hx of basal cell carcinoma excision Hx of finger joint replacement Hx of decompressive lumbar laminectomy Surgical History no surgical history Social History household members: none housing: house current occupational status: retired pets and animals: Yes pets and animals: dog(s) Smoking Status: Current every day smoker tobacco type: cigarettes Tobacco: How many years used: 69 alcohol intake: current details: On avg a couple drinks each evening substance use type: does not use caffeine: Yes Type: coffee Number of servings: 2 do you feel safe at home: Yes ROS ROS ED ROS Narrative Back pain. Denies recent illness. Constitutional Constitutional ED: Denies chills or fever(s) Eyes Eyes: Denies blurry vision ENT ENT ED: Denies ear pain Cardiovascular Cardiovascular: Denies chest pain Respiratory/Chest Respiratory/Chest: Denies dyspnea or dyspnea on exertion Gastrointestinal Gastrointestinal: Denies abdominal pain Genitourinary Genitourinary ED: Denies dysuria or hematuria Musculoskeletal Musculoskeletal: Reports back pain; Denies arthralgias, myalgias or neck pain Integumentary Denies abscess or Abrasions Neurologic Neurologic: Denies headache(s), paresthesias or weakness Psychiatric Psychiatric: Denies anxiety or depression Endocrine Endocrinology: Denies cold intolerance Hematologic/Lymphatic Hematologic/Lymphatic: Denies easy bleeding, easy bruising or lymphadenopathy Allergic/Immunologic Allergic/Immunologic ED: Denies mouth swelling, tongue swelling or urticaria EXAM Physical Exam Narrative Exam Narrative: 89-year-old male lying in bed screaming. Vital signs are stable afebrile. No family in the room. H EENT exam pupils round react light. Moist mucous membranes. Poor dentition. Neck nontender. Trachea midline. Lungs clear to auscultation bilaterally. Heart regular rhythm no murmur. Chest wall and ribs nontender. Abdomen is soft nondistended. No peritoneal signs. No pulsatile mass. Patient moving all 4 extremities. He has normal gyn physician strength. Both lower extremities have equal and symmetrical weakness. He is 1-2+ pitting edema which is chronic. He can do dorsi and plantarflexion. Negative straight leg raise. Back he has reproducible pain over his iliac crest on the left. There is no bruising. He has well-healed prior lumbar surgical scars. Neurologically he is awake alert. He is answering questions following commands. He has chronic weakness in both lower extremities which he states is his baseline. Const Vital Signs: 03/04/25 16:26 03/04/25 18:26 03/04/25 18:39 Temperature 99.1 F 99.1 F Temperature Source Axillary Pulse Rate 81 79 79 Respiratory Rate 14 22 H 22 H Blood Pressure 120/90 H 130/56 H 130/56 H Blood Pressure Mean 100 80 80 Pulse Ox 99 98 98 Oxygen Delivery Method Room Air Room Air MDM MDM MDM Narrative Medical decision making narrative: 89-year-old male with 3 prior lumbar surgeries. Chronic back pain on oxycodone. He has been out of his pain meds for the 4+ days. He has been unable to get into see his pain management physician as of yet. He came in today due to pain. He has had recent falls but states his back hurt well before the falls. Repeat exam at 6:28 PM. Patient was given the second dose of IV more pain for his pain. Still having significant pain. I reviewed his MRI from 3 days ago. His CAT scan today both show significant chronic changes. Given that the patient is 89 years old and 2 different doses of morphine have not significantly improved his pain I have the hospitalist on page for admission. Currently does not have signs of a cauda equina. He has dorsi and plantarflexion is chronic weakness and edema both lower extremities that is not significantly different. He has medial thigh sensation. No saddle anesthesia. He has normal perianal sensation. I will speak to the hospitalist about admitting for pain control and further evaluation. History & Record Review Discussion w/independent historian: Patient Additional record(s) reviewed:: Prior inpatient record, Prior outpatient record, Prior ED visit and Prior labs Lab Data Attestation: I reviewed the patient's lab results. Lab results narrative: CBC shows a white count of 6.8. H&H of 10.5 and 31. Platelets 248. Electrolytes shows sodium 137. Gap 12. BUN and creatinine 36 and 1.24. Glucose 102. Urinalysis shows no nitrites. 50-100 red cells. 10-25 white cells. 1+ bacteria. A culture will be sent. The hospitalist I discussed it. She wants to see the culture results before she starts antibiotics. Labs are consistent with his baseline prior labs. Labs: Laboratory Results - last 24 hr 03/04/25 03/04/25 16:35 18:05 WBC 6.8 RBC 3.20 L Hgb 10.5 L Hct 31.4 L MCV 98.1 H MCH 32.8 H MCHC 33.4 RDW Std Deviation 67.8 H RDW Coeff of Beth 18.8 H Plt Count 248 MPV 10.6 Immature Gran % (Auto) 0.900 Neut % (Auto) 85.6 H Lymph % (Auto) 7.4 L [place] % (Auto) 5.2 Eos % (Auto) 0.6 Baso % (Auto) 0.3 Absolute Neuts (auto) 5.8 Absolute Lymphs (auto) 0.50 L Nucleated RBC % 0 Sodium 137 Potassium 4.4 Chloride 98 Carbon Dioxide 26.5 Anion Gap 12 BUN 36 H Creatinine 1.24 H Estim Creat Clear Calc 36.51 L Est GFR (MDRD) Non-Af 56 L BUN/Creatinine Ratio 29.0 H Glucose 102 H Calcium 8.9 Urine Color Yellow Urine Clarity Cloudy Urine pH 6.0 Ur Specific [place] 1.015 Urine Protein 30 H Urine Glucose (UA) Normal Urine Ketones 5 H Urine Occult Blood 250 H Urine Nitrite Negative Urine Bilirubin Negative Urine Urobilinogen Normal Ur Leukocyte Esterase 100 H Urine RBC 50-100 SEEN Urine WBC 10-25 SEEN Ur Squamous Epith Cells 0-5 SEEN Amorphous Sediment 2+ Urine Bacteria 1+ Urine Mucus 0 SEEN Radiography Diagnostic Testing: Clinical Impression(s) from Imaging Studies Lumbar Spine CT 03/04/25 17:30 IMPRESSION: Diffuse disc space narrowing. No compression deformity. No subluxation. Please see prior MRI for further details regarding spinal stenosis and nerve root impingement. Sagittal soft tissue windows were not supplied on the current exam. This limits evaluation of the spinal canal as well as the neural foramina. There is asymmetric right-sided foraminal stenosis suspected at L3-4. [facility] Discharge Plan Dx/Rx/DC Orders Clinical Impression: Intractable back pain, Hx of degenerative disc disease, History of back surgery, Chronic pain Disposition Disposition: Acute Care Hospital [facility]
--- NOTE | 2025-03-04 17:30 | CT_ITS ---
PROCEDURE: CT/Spine Lumbar without Contrast
[2025-03-04 17:56] LABS: Anion Gap 12 (5-15); BUN 36 mg/dL (4-19); BUN/Creat Ratio 29.0 RATIO (10-20); Calcium,Total 8.9 mg/dL (7.6-11.0); Carbon Dioxide 26.5 mmol/L (21.0-32.0); Chloride 98 mmol/L (98-108); Estimated Creatinine Clearance 36.51 ml/min (50-250); Glucose 102 mg/dL (70-99); Potassium 4.4 mmol/L (3.3-5.1)
[2025-03-04 18:12] LABS: Hematocrit 31.4 % (40-54); Hemoglobin 10.5 g/dL (13.0-16.5); Immature Granulocytes Count 0.060 X10^3/uL (0.0-0.0); Mean Corp Hgb Conc 33.4 g/dL (32-36); Mean Corpuscular Volume 98.1 fL (80-94); Mean Platelet Vol. 10.6 fl (6.2-12.0); NRBC Flagged by Analyzer 0 % (0-5); POSITIVE DIFFERENTIAL YES; POSITIVE MORPHOLOGY YES; Platelet Count 248 K/mm3 (150-450); RBC Distribution Width CV 18.8 % (11.6-14.6); RBC Distribution Width SD 67.8 fl (35.1-43.9); Red Blood Count 3.20 M/mm3 (4.6-6.2); White Blood Count 6.8 K/mm3 (4.4-11.0)
[2025-03-04 18:12] LABS: Mucous, Urine 0 SEEN /hpf (<or=2+)
[2025-03-04 18:17] LABS: Color, Urine Yellow (Yellow); Glucose, Dipstick Normal (Normal); Ketone-Dipstick 5 mg/dl (Negative); Leukocyte Esterase-Dipstick 100 /ul (Negative); Nitrite-Dipstick Negative (Negative); Occult Blood-Urine 250 /ul (Negative); Protein-Dipstick 30 mg/dl (Negative); Specific Gravity, Urine 1.015 (1.002-1.030); Urine Bilirubin Dipstick Negative (Negative)
[2025-03-04 18:20] LABS: Differential Indicated SCAN CRITERIA MET
[2025-03-04 18:26] VITALS: BP 130/56; PULSE 79; RESP 22; O2SAT 98
[2025-03-04 18:39] VITALS: BP 130/56; PULSE 79; RESP 22; TEMP 37.3; O2SAT 98
[2025-03-04 18:44] LABS: Red Blood Cells-Urine 50-100 SEEN /hpf (0-5)
[2025-03-04 18:46] LABS: Squamous Epithelial Cells - UA 0-5 SEEN /hpf (0-5)
--- NOTE | 2025-03-04 19:29 | PCM.HP.STD ---
[facility] - General General Date of Admission: 03/04/25 Date of Service: 03/04/25 Chief Complaint: back pain HPI Narrative DESMOND WINCHESTER, is a 89-year-old male history of hypertension, chronic back pain, COPD, depression, DVT with IVC filter who presented to [facility] ED 03/04/2025 with back pain. He has had 3 prior lumbar surgeries and is on chronic pain management, follows with Dr. Castañeda. Has been out of his pain medication and unable to wait until he is seen in the office prompting him to come to the ED. Denies any bowel or bladder incontinence, chronic leg weakness. In the ED temp 99.1, heart rate 81, blood pressure 120/90, respiratory rate 14 pulse ox 99% on room air. CBC with white count 6.8, hemoglobin 10.5. BMP with a BUN of 36 and creatinine 1.24. UA with leuk esterase but only 10-25 white cells, 1+ bacteria and patient denies any urinary symptoms. Lumbar spine CT demonstrated spinal stimulator, diffuse disc space narrowing. There is asymmetric right sided foraminal stenosis suspected L3-L4. MRI from 03/01 showed spinal canal stenosis most advanced at L2-L3 and mild to moderate remaining levels. Additional multilevel moderate advanced neural foraminal stenosis. Patient received multiple doses of pain medication but due to his continued pain it was felt it was not safe to discharge patient home so hospitalist contacted for admission. Patient evaluated at bedside, he reports back pain for many years ago and had been on weekly buprenorphine patches however given continued pain he underwent some kind of injection or nerve ablation 2 weeks ago. He has had increasing pain since that time, he was given oral pain medication to take after the procedure in addition to his buprenorphine patch however due to the increasing pain he was taking with increasing frequency. Over the weekend he ran out and has been unable to sleep due to the pain. Has had a couple of falls however reports they were mechanical in nature and does not feel he hurt his back, has just been sore somewhat all over. 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 Reports he has never felt that the buprenorphine patches were helpful so he took his buprenorphine patch off over the weekend, has also been out of oral pain medication so he has taken nothing. He reports initially he did not notice much benefit from the pain medicine given in the ED however now he is noting some slow improvement. He reports his pain is the same pain he has always had just more pronounced, more so on the left side than the right side. 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 Wears glasses Wears hearing aid in both ears Cancer Hx of gout CPAP (continuous positive airway pressure) dependence Shortness of breath on exertion Smoker Emphysema, unspecified Hypertension Restless legs Injury of back Medical History no medical history Home Medications ?Medication ?Instructions ?Recorded ?Last Taken ?Type amlodipine 5 mg tablet 5 mg PO DAILY BP 07/02/22 03/04/25 History oxybutynin chloride 10 mg 10 mg PO DAILY OAB 09/19/23 03/04/25 History tablet,extended release 24 hr budesonide 160 mcg-glycopyr 9 2 inh inhalation BID COPD 01/01/25 03/04/25 History mcg-formot 4.8 mcg/actuation HFA inhaler (Breztri Aerosphere) albuterol sulfate 90 mcg/actuation 2 puff inhalation Q4H PRN 01/18/25 Unknown History aerosol inhaler sob/wheezing apixaban 5 mg tablet (Eliquis) 5 mg PO BID 02/12/25 03/04/25 History buprenorphine 10 mcg/hour weekly 1 patch topical QWEEK 02/21/25 02/25/25 History transdermal patch Allergy/AdvReac Type Severity Reaction Status Date / Time tiotropium (From Spiriva Allergy Unknown unknown Verified 02/21/25 18:11 with HandiHaler) ibuprofen (From Motrin) Allergy Swelling Verified 02/21/25 18:11 Family History Mother , 61 Cancer Father , 91 AD (Alzheimer's disease) Sister Multiple sclerosis Family History no significant family his Surgical History S/P TURP (transurethral resection of prostate) History of cataract surgery History of embolic filter insertion Hx of colonoscopy with polypectomy History of hand surgery S/P insertion of spinal cord stimulator History of varicose vein stripping Hx of myringotomy History of parotidectomy History of esophagogastroduodenoscopy (EGD) History of cystoscopy Hx of basal cell carcinoma excision Hx of finger joint replacement Hx of decompressive lumbar laminectomy Surgical History no surgical history Social History household members: none housing: house current occupational status: retired pets and animals: Yes pets and animals: dog(s) Smoking Status: Current every day smoker tobacco type: cigarettes Tobacco: How many years used: 69 alcohol intake: current details: On avg a couple drinks each evening substance use type: does not use caffeine: Yes Type: coffee Number of servings: 2 do you feel safe at home: Yes ROS ROS Narrative General: Denies fever/chills HENT: Denies headache, denies stuffy nose, denies sore throat EYES: Denies changes in vision Resp: Denies cough, denies shortness of breath Cardiac: Denies chest pain GI: Denies abdominal pain, does have some constipation with his pain medications, denies nausea/vomiting : Denies changes in urination Extremity: Has some lower extremity swelling this been worse the past few weeks MSK: Weakness in his legs that is not new Neuro: 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 Heme: Has some various bruises from falls Skin: Denies rashes Psychiatric: No complaints voiced Vital Signs Vital Signs Vital Signs: 03/04/25 16:26 03/04/25 18:26 03/04/25 18:39 Temperature 99.1 F 99.1 F Temperature Source Axillary Pulse Rate 81 79 79 Respiratory Rate 14 22 H 22 H Blood Pressure 120/90 H 130/56 H 130/56 H Blood Pressure Mean 100 80 80 Pulse Ox 99 98 98 Oxygen Delivery Method Room Air Room Air Weight Weight: 70 kg Body Mass Index (BMI) 25.7 Physical Exam Narrative General: Alert, answers questions appropriately no apparent distress HEENT: Normocephalic Eyes: Anicteric, normal conjunctiva, extraocular movements grossly intact Neck: Supple Respiratory: Clear to auscultation bilaterally, normal respiratory effort Cardiovascular: Regular rate and rhythm GI: Soft, nontender, nondistended Extremities: 2+ bilateral lower extremity pitting edema Musculoskeletal: Moving all extremities, does have some pain on palpation over back more so left than right which he reports is consistent with his previous pain Neuro: No overt focal neurological deficits Skin: Very scattered bruising and scrapes Psych: Cooperative Results Lab / Micro Data 03/04/25 16:35 03/04/25 16:35 Labs: Laboratory Results - last 24 hr 03/04/25 16:35: WBC 6.8, RBC 3.20 L, Hgb 10.5 L, Hct 31.4 L, MCV 98.1 H, MCH 32.8 H, MCHC 33.4, RDW Std Deviation 67.8 H, RDW Coeff of Beth 18.8 H, Plt Count 248, MPV 10.6, Immature Gran % (Auto) 0.900, Neut % (Auto) 85.6 H, Lymph % (Auto) 7.4 L, [place] % (Auto) 5.2, Eos % (Auto) 0.6, Baso % (Auto) 0.3, Absolute Neuts (auto) 5.8, Absolute Lymphs (auto) 0.50 L, Nucleated RBC % 0, Sodium 137, Potassium 4.4, Chloride 98, Carbon Dioxide 26.5, Anion Gap 12, BUN 36 H, Creatinine 1.24 H, Estim Creat Clear Calc 36.51 L, Est GFR (MDRD) Non-Af 56 L, BUN/Creatinine Ratio 29.0 H, Glucose 102 H, Calcium 8.9 03/04/25 18:05: Urine Color Yellow, Urine Clarity Cloudy, Urine pH 6.0, Ur Specific [place] 1.015, Urine Protein 30 H, Urine Glucose (UA) Normal, Urine Ketones 5 H, Urine Occult Blood 250 H, Urine Nitrite Negative, Urine Bilirubin Negative, Urine Urobilinogen Normal, Ur Leukocyte Esterase 100 H, Urine RBC 50-100 SEEN, Urine WBC 10-25 SEEN, Ur Squamous Epith Cells 0-5 SEEN, Amorphous Sediment 2+, Urine Bacteria 1+, Urine Mucus 0 SEEN Imaging Radiology Impression Lumbar Spine CT 03/04/25 17:30 IMPRESSION: Diffuse disc space narrowing. No compression deformity. No subluxation. Please see prior MRI for further details regarding spinal stenosis and nerve root impingement. Sagittal soft tissue windows were not supplied on the current exam. This limits evaluation of the spinal canal as well as the neural foramina. There is asymmetric right-sided foraminal stenosis suspected at L3-4. Reading Location: [facility] Assessment & Plan Assessment/Plan (1) Back pain: PLAN: Plan #Acute on chronic lower back pain - Lumbar spine CT demonstrated spinal stimulator, diffuse disc space narrowing. There is asymmetric right sided foraminal stenosis suspected L3-L4. MRI from 03/01 showed spinal canal stenosis most advanced at L2-L3 and mild to moderate remaining levels. Additional multilevel moderate advanced neural foraminal stenosis - Patient has chronic lower back pain and follows with Dr. Castañeda, had some kind of procedure 2 weeks ago that patient said was to puga the nerves but notes he has the same amount of pain, was taking the pain medication he was given but has run out of this, he also did not find the buprenorphine patch that he has been on for a long period of time helpful so he took this off 1 to 2 days ago and said he has noticed no difference - Given patient's history, exam, imaging does not seem that there is an acute need for intervention, will admit patient and schedule Tylenol with as needed pain medication and topical - Depending on mental status and tolerance could consider trial of a low-dose muscle relaxer as well but given age would try to avoid polypharmacy if possible -Given patient has not been using his buprenorphine patch and does not want this back on this was not reordered - Will consult PT/OT - Case management consult # Alcohol use - Patient reports drinking 2 Manhattan's before bed every night, denies any history of withdrawal symptoms will will place patient on CIWA in an abundance of caution given age and comorbidities - Will start thiamine and folate # DVT - History of DVT, 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, appears patient is now back on Eliquis - Will continue medication #Hx COPD -Continue home inhalers -Incentive spirometer #Hypertension - Will hold home antihypertensive to allow room for pain control #Tobacco use -Advise cessation -Nicotine replacement available if desired, presently denying # Abnormal UA - Patient no symptoms consistent with urinary tract infection, there is leuk esterase and bacteria in urine with no nitrate and only 10-25 white cells, urine culture was sent, given no symptoms and patient afebrile with normal white count hesitant to start any empiric treatment as is suspect this is not a pathological infection - If patient were to develop symptoms, white count, fever, urine culture positive can start antibiotics #JASMIN - Patient reports he has CPAP but has not used it in many years #DVT ppx: Not indicated patient on full dose Yen Arreaga MD Charges/Coding Visit Charges Inpatient E&M: 77637 Init Hosp L2
[2025-03-04 19:45] LABS: Differential Comment SCANNED
[2025-03-04 19:48] LABS: Anisocytosis 2+; Polychromasia 1+
[2025-03-04 19:49] LABS: Hypochromasia 1+
[2025-03-04 20:00] VITALS: BP 121/65; O2SAT 96
[2025-03-04 20:45] VITALS: BMI 22.4
[2025-03-04 20:51] VITALS: BP 124/72; PULSE 72; RESP 17; TEMP 36.4; O2SAT 97
[2025-03-04] MEDS: MELATONIN 10 MG TABLET PO (21:01)
[2025-03-04] MEDS: Arthritis Pain Compound 60 CLICK TUBE TOPICAL (22:06)
[2025-03-04] MEDS: 0.9% Normal Saline (1000mL) 1,000 ML 75 ML IV (22:06)
[2025-03-04] MEDS: APIXABAN 5 MG TABLET PO (22:06)
[2025-03-04] MEDS: Senna/Docusate Sodium 1 Tablet 2 TABLET PO (22:08)
[2025-03-04] MEDS: 0.9% Saline Lock 10 ML Syringe IV (22:10)
[2025-03-05] VITALS (11 sets, daily range): BP systolic 86–112; BP diastolic 55–66; PULSE 69–80; RESP 15–19; TEMP 36.7–37.2; O2SAT 93–97
[2025-03-05 06:40] LABS: Hematocrit 31.0 % (40-54); Hemoglobin 10.2 g/dL (13.0-16.5); Immature Granulocytes Count 0.040 X10^3/uL (0.0-0.0); Mean Corp Hgb Conc 32.9 g/dL (32-36); Mean Corpuscular Volume 101.3 fL (80-94); Mean Platelet Vol. 10.4 fl (6.2-12.0); NRBC Flagged by Analyzer 0 % (0-5); POSITIVE DIFFERENTIAL YES; POSITIVE MORPHOLOGY YES; Platelet Count 228 K/mm3 (150-450); RBC Distribution Width CV 19.1 % (11.6-14.6); RBC Distribution Width SD 71.3 fl (35.1-43.9); Red Blood Count 3.06 M/mm3 (4.6-6.2); White Blood Count 5.9 K/mm3 (4.4-11.0)
[2025-03-05 06:45] LABS: Differential Indicated SCAN CRITERIA MET
[2025-03-05] MEDS: Budesonide Respules 0.5 MG/2 ML AMPUL.NEB. INHALATION ×2 (06:53→20:10)
[2025-03-05] MEDS: Albuterol 2.5 MG/3 ML VIAL.NEB. INHALATION ×3 (06:53→20:10)
[2025-03-05 07:18] LABS: Anion Gap 9 (5-15); BUN 33 mg/dL (4-19); BUN/Creat Ratio 27.2 RATIO (10-20); Calcium,Total 7.9 mg/dL (7.6-11.0); Carbon Dioxide 26.4 mmol/L (21.0-32.0); Chloride 101 mmol/L (98-108); Estimated Creatinine Clearance 36.57 ml/min (50-250); Glucose 74 mg/dL (70-99); Potassium 4.1 mmol/L (3.3-5.1)
--- NOTE | 2025-03-05 08:15 | PN.HOSP_ITS ---
Reason for Visit
--- NOTE | 2025-03-05 08:15 | PCM.PN.HOSP ---
Reason for Visit Chief Complaint: back pain Subjective Subjective back pain improved. abdominal distention. no BM in several days. Objective Data Objective Data Vital Signs: Vital Signs Temp Pulse Resp BP Pulse Ox O2 Del Method O2 Flow Rate 36.8 C 69 16 98/63 93 Nasal Cannula 2 03/05/25 05:45 03/05/25 06:55 03/05/25 06:55 03/05/25 05:45 03/05/25 06:55 03/05/25 06:55 03/05/25 06:55 Oxygen Flow Rate (L/min) 2 Oxygen Delivery Method Nasal Cannula Weight: 61.1 kg Body Mass Index (BMI) 22.4 Intake & Output: Intake and Output for Last 24 Hours 03/03/25 03/04/25 03/05/25 23:59 23:59 23:59 Output Total 625 / 625 Balance -625 / -625 Lab / Micro Data 03/05/25 05:42 03/05/25 05:42 Labs: Laboratory Results - last 24 hr 03/04/25 16:35: WBC 6.8, RBC 3.20 L, Hgb 10.5 L, Hct 31.4 L, MCV 98.1 H, MCH 32.8 H, MCHC 33.4, RDW Std Deviation 67.8 H, RDW Coeff of Beth 18.8 H, Plt Count 248, MPV 10.6, Immature Gran % (Auto) 0.900, Neut % (Auto) 85.6 H, Lymph % (Auto) 7.4 L, Beckham % (Auto) 5.2, Eos % (Auto) 0.6, Baso % (Auto) 0.3, Absolute Neuts (auto) 5.8, Absolute Lymphs (auto) 0.50 L, Nucleated RBC % 0, Differential Comment SCANNED, Platelet Estimate ADEQUATE, Polychromasia 1+, Hypochromasia 1+, Anisocytosis 2+, Sodium 137, Potassium 4.4, Chloride 98, Carbon Dioxide 26.5, Anion Gap 12, BUN 36 H, Creatinine 1.24 H, Estim Creat Clear Calc 36.51 L, Est GFR (MDRD) Non-Af 56 L, BUN/Creatinine Ratio 29.0 H, Glucose 102 H, Calcium 8.9 03/04/25 18:05: Urine Color Yellow, Urine Clarity Cloudy, Urine pH 6.0, Ur Specific Hampton 1.015, Urine Protein 30 H, Urine Glucose (UA) Normal, Urine Ketones 5 H, Urine Occult Blood 250 H, Urine Nitrite Negative, Urine Bilirubin Negative, Urine Urobilinogen Normal, Ur Leukocyte Esterase 100 H, Urine RBC 50-100 SEEN, Urine WBC 10-25 SEEN, Ur Squamous Epith Cells 0-5 SEEN, Amorphous Sediment 2+, Urine Bacteria 1+, Urine Mucus 0 SEEN 03/05/25 05:42: WBC 5.9, RBC 3.06 L, Hgb 10.2 L, Hct 31.0 L, MCV 101.3 H, MCH 33.3 H, MCHC 32.9, RDW Std Deviation 71.3 H, RDW Coeff of Beth 19.1 H, Plt Count 228, MPV 10.4, Immature Gran % (Auto) 0.700, Neut % (Auto) 85.9 H, Lymph % (Auto) 6.2 L, Beckham % (Auto) 5.1, Eos % (Auto) 1.9, Baso % (Auto) 0.2, Absolute Neuts (auto) 5.1, Absolute Lymphs (auto) 0.37 L, Nucleated RBC % 0, Sodium 136, Potassium 4.1, Chloride 101, Carbon Dioxide 26.4, Anion Gap 9, BUN 33 H, Creatinine 1.23 H, Estim Creat Clear Calc 36.57 L, Est GFR (MDRD) Non-Af 57 L, BUN/Creatinine Ratio 27.2 H, Glucose 74, Calcium 7.9 Radiography Diagnostic Testing: Radiology Impression Lumbar Spine CT 03/04/25 17:30 IMPRESSION: Diffuse disc space narrowing. No compression deformity. No subluxation. Please see prior MRI for further details regarding spinal stenosis and nerve root impingement. Sagittal soft tissue windows were not supplied on the current exam. This limits evaluation of the spinal canal as well as the neural foramina. There is asymmetric right-sided foraminal stenosis suspected at L3-4. Reading Location: [facility] Physical Exam Const alert and no apparent distress Constitutional Narrative: in bed. non-toxic. HEENT head/scalp atraumatic and moist oral mucous membranes Resp normal respiratory effort GI normal to inspection, nondistended, normoactive bowel sounds, soft to palpation, non-tender and non-distended Assessment & Plan Assessment/Plan (1) Back pain: PLAN: Plan Acute on chronic lower back pain Lumbar spine CT demonstrated spinal stimulator, diffuse disc space narrowing. There is asymmetric right sided foraminal stenosis suspected L3-L4. MRI from 03/01 showed spinal canal stenosis most advanced at L2-L3 and mild to moderate remaining levels. Additional multilevel moderate advanced neural foraminal stenosis Patient has chronic lower back pain and follows with Dr. Castañeda, had some kind of procedure 2 weeks ago that patient said was to puga the nerves but notes he has the same amount of pain, was taking the pain medication he was given but has run out of this, he also did not find the buprenorphine patch that he has been on for a long period of time helpful so he took this off 1 to 2 days ago and said he has noticed no difference Given patient's history, exam, imaging does not seem that there is an acute need for intervention, will admit patient and schedule Tylenol with as needed pain medication and topical Depending on mental status and tolerance could consider trial of a low-dose muscle relaxer as well but given age would try to avoid polypharmacy if possible Given patient has not been using his buprenorphine patch and does not want this back on this was not reordered Will consult PT/OT Case management consult Constipation administered dulcolax and miralax. monitor. consider Mag Citrate if no improvement. 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, appears patient is now back on Eliquis- Will continue medication Hx COPD-Continue home inhalers-Incentive spirometer Hypertension- Will hold home antihypertensive to allow room for pain control Tobacco use-Advise cessation-Nicotine replacement available if desired, presently denying Abnormal UA- Patient no symptoms consistent with urinary tract infection, there is leuk esterase and bacteria in urine with no nitrate and only 10-25 white cells, urine culture was sent, given no symptoms and patient afebrile with normal white count hesitant to start any empiric treatment as is suspect this is not a pathological infection- If patient were to develop symptoms, white count, fever, urine culture positive can start antibiotics JASMIN- Patient reports he has CPAP but has not used it in many years DVT ppx: Not indicated patient on full dose Eliquis Charges/Coding Visit Charges Inpatient E&M: 39504 Subs Hosp L2
[2025-03-05] MEDS: APIXABAN 5 MG TABLET PO ×2 (09:31→22:42)
[2025-03-05] MEDS: Arthritis Pain Compound 60 CLICK TUBE TOPICAL ×2 (09:31→22:42)
[2025-03-05] MEDS: Senna/Docusate Sodium 1 Tablet 2 TABLET PO ×2 (09:31→22:42)
[2025-03-05] MEDS: Polyethylene Glycol 3350 17 GM PACKET PO (10:21)
[2025-03-05] MEDS: Magnesium Citrate 300 ML PO (14:20)
--- NOTE | 2025-03-05 16:26 | NURSING ---
Pt refuses to drink magnesium citrate for constipation because medication is too sweet. Pt requested an enema. This RN contacted Dr Angel and a fleets enema was ordered.
--- NOTE | 2025-03-05 17:33 | CASEMGMT ---
SW Assessment: Face to Face with pt for initial transition planning/care coordination assessment. SW introduced self and role at [facility], pt voices understanding and consents to assessment. Care providers, pharmacy, and demographics verified/updated. Admitting Dx: intractable back pain PCP:[facility] Specialists:[facility], Pain Management; [facility], Dr Salazar, [facility]. Preferred Pharmacy: [facility] Pharmacy Insurance: [facility] Prescription Benefit: yes LNOK: Step son Jam and Beena Living Arrangements: Pt lives alone in a 1 story home with 3 steps and a handrail to enter. Pt states I with ADLs and IADLs. Pt has a small dog Ky. Transportation: Pt drives self and denies concerns with transportation. DME: Shower chair, CPAP, cane, walker, raised toilet seat, grab bars HHC/SNF: Denies Hx of. Pt Goal: Home Plan: To be determined. Pt is open to HHC or SNF; would like to see how therapy goes tomorrow before making a determination. Pt was extremely lethargic and kept eyes shut for the duration of the conversation. SW made three previous attempts to meet in which pt was unable to stay awake to complete assessment. Pt minimally engaged and offered little insight. Pt reports that he has not felt like eating for 2-3 days, although pt reports typically he eats twice per day. Pt agreeable to staff contacting step leonard Polk if needed. SW remains available to follow. ANGELO Will
[2025-03-05] MEDS: 0.9% Saline Lock 10 ML Syringe IV (20:43)
[2025-03-06] VITALS (7 sets, daily range): BP systolic 91–106; BP diastolic 53–63; PULSE 63–76; RESP 16–19; TEMP 36.6–37; O2SAT 92–96
--- NOTE | 2025-03-06 07:51 | PN.HOSP_ITS ---
Reason for Visit
--- NOTE | 2025-03-06 07:51 | PCM.PN.HOSP ---
Reason for Visit Chief Complaint: back pain Subjective Subjective Settings having severe pain to the point that he wants to kill himself. Asked him if he has a plan for killing himself that he indicates towards the bedside table where his future is and asked is there a knife on it? Objective Data Objective Data Vital Signs: Vital Signs Temp Pulse Resp BP Pulse Ox O2 Del Method O2 Flow Rate 36.8 C 76 16 102/59 L 95 Nasal Cannula 2 03/06/25 05:33 03/06/25 05:33 03/06/25 05:33 03/06/25 05:33 03/06/25 05:33 03/06/25 05:33 03/06/25 05:33 Oxygen Flow Rate (L/min) 2 Oxygen Delivery Method Nasal Cannula Weight: 61.1 kg Body Mass Index (BMI) 22.4 Intake & Output: Intake and Output for Last 24 Hours 03/04/25 03/05/25 03/06/25 23:59 23:59 23:59 Intake Total 80 / 80 Output Total 975 / 975 850 / 850 Balance -895 / -895 -850 / -850 Lab / Micro Data 03/05/25 05:42 03/05/25 05:42 Physical Exam Const Constitutional Narrative: Initial walk in the room, patient has his blanket over his head and then once myself and the nurse meter presents known, he began yelling out in pain. And then when patient was told that we are going to put him on suicide precautions he became very quiet and was not yelling out in any distress. He at that point then stopped having any eye contact with me or anyone else in the room. HEENT head/scalp atraumatic and moist oral mucous membranes Resp normal respiratory effort, no retractions, no use of accessory muscles and clear to auscultation bilaterally Cardio regular rate, regular rhythm, S1 normal heart sound and S2 normal heart sound GI GI Narrative: Claims of severe abdominal pain with any palpation throughout his abdomen but when distracted was not experiencing that pain. Patient was yelling in pain even without any palpation as well but when he was more calm, he was not yelling out in pain and did appear to be comfortable. Neuro Sensorium / Orientation: awake and alert Assessment & Plan Assessment/Plan (1) Back pain: PLAN: Plan Acute on chronic lower back pain Lumbar spine CT demonstrated spinal stimulator, diffuse disc space narrowing. There is asymmetric right sided foraminal stenosis suspected L3-L4. MRI from 03/01 showed spinal canal stenosis most advanced at L2-L3 and mild to moderate remaining levels. Additional multilevel moderate advanced neural foraminal stenosis Patient has chronic lower back pain and follows with Dr. Castañeda, had some kind of procedure 2 weeks ago that patient said was to puga the nerves but notes he has the same amount of pain, was taking the pain medication he was given but has run out of this, he also did not find the buprenorphine patch that he has been on for a long period of time helpful so he took this off 1 to 2 days ago and said he has noticed no difference Given patient's history, exam, imaging does not seem that there is an acute need for intervention, will admit patient and schedule Tylenol with as needed pain medication and topical Depending on mental status and tolerance could consider trial of a low-dose muscle relaxer as well but given age would try to avoid polypharmacy if possible Given patient has not been using his buprenorphine patch and does not want this back on this was not reordered Will consult PT/OT Case management consult Constipation administered dulcolax and miralax. Patient was offered magnesium citrate yesterday but he declined requesting an enema. Did have some small bowel movements thereafter. Demanded to have an enema today. Will administer magnesium citrate today. Patient complaining of severe abdominal pain today to the point where he wants to kill himself. Exam is inconsistent Patient did have CT of his abdomen pelvis performed on the ninth of this month showed a nonobstructive right renal calculi, left renal cyst, colonic diverticulosis without diverticulitis, long sigmoid wall thickening possibly due to nonspecific colitis. Dense colonic stool suggesting constipation. Pt received magnesium citrate and he subsequently had a large BM and was feeling better. Suicidal ideation Patient has been consistently saying to the nurse as well as to me several times that he wants to kill himself because his pain is so severe. I initially felt that this was just more of him try to get a point across that he is having severe abdominal pain, however, when I tried to establish if he had a plan or not, he asked if there was a knife on his bedside table. I am still not convinced that he is truly suicidal but given his persistent statements home and him having the opportunity to retract those statements but declining to do so. He will be placed on suicide precautions. Patient will have bedside sitter and will have crisis evaluate him. If crisis team does determined that he is not a risk to himself or others then we can DC the suicide precautions and a sitter. He met with social work and endorsed that he said that, not as a threat against himself, but rather emphasizing the severity of his pain. Suicide precautions lifted. 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, appears patient is now back on Eliquis- Will continue medication Hx COPD-Continue home inhalers-Incentive spirometer Hypertension- Will hold home antihypertensive to allow room for pain control Tobacco use-Advise cessation-Nicotine replacement available if desired, presently denying Abnormal UA- Patient no symptoms consistent with urinary tract infection, there is leuk esterase and bacteria in urine with no nitrate and only 10-25 white cells, urine culture was sent, given no symptoms and patient afebrile with normal white count hesitant to start any empiric treatment as is suspect this is not a pathological infection- If patient were to develop symptoms, white count, fever, urine culture positive can start antibiotics JASMIN- Patient reports he has CPAP but has not used it in many years DVT ppx: Not indicated patient on full dose Eliquis Charges/Coding Visit Charges Inpatient E&M: 35395 Subs Hosp L2
--- NOTE | 2025-03-06 09:00 | NURSING ---
SW/CM updated of patient being placed in suicide precautions
--- NOTE | 2025-03-06 09:41 | NURSING ---
talked with laundry housekeeper and media marketing manager about getting patient advocate to see patient.
[2025-03-06] MEDS: Magnesium Citrate 300 ML PO (10:11)
--- NOTE | 2025-03-06 10:15 | CASEMGMT ---
Social Work- SW met with pt to update that hospitalist asked for a crisis referral due to pt reporting repeatedly that he wanted to kill himself. Pt was sitting in chair, writing around and yelling. Pt reports that he has pain in his butt. Pt reports the pain is recent. Pt admits that he did report wanting to kill himself, but reports that it was due to the pain. Pt reports never wanting to feel that way before and reports that he does not have a plan and is not actively intending to kill self, but reports he wants the pain to stop and asked SW what staff was doing to help him. SW educated that physician and nurse are working together on pain management. Pt continued screaming in pain. SW attempted to co-regulate with breathing; pt continued writing. SW attempted to discuss coping techniques and encourage pt to squeeze pillow, focus on objects in the room, etc. Pt not receptive. Pt did think moving to bed may help. Sitter was assisting in moving pt to bed. SW collaborated with SW instrumentation supervisor. SW to complete crisis referral if pt is medically cleared and still making statements of self harm and hospitalist continues to feel referral is appropriate. SW to follow. ANGELO Will
[2025-03-06] MEDS: Arthritis Pain Compound 60 CLICK TUBE TOPICAL ×2 (10:25→22:54)
[2025-03-06] MEDS: Thiamine Hydrochloride 100 MG Tablet PO (10:25)
[2025-03-06] MEDS: APIXABAN 5 MG TABLET PO ×2 (10:25→22:55)
[2025-03-06] MEDS: Senna/Docusate Sodium 1 Tablet 2 TABLET PO ×2 (10:25→22:55)
--- NOTE | 2025-03-06 14:57 | CASEMGMT ---
Social Work- SW met with pt following a report by hospitalist that pt had made several statements that he wanted to kill himself. Hospitalist reported, per documentation, that pt inquired as to if a knife was on pt's food tray. Pt was noted to be in extreme pain by staff at the time that pt made the statements of self harm. Hospitalist requested pt be evaluated for potential need for mental health intervention by crisis team and placed on sitter precautions. Pt was given medication which aided in a bowel movement. Pt was noted by nursing to be content and sleeping following bowel movement. SW consulted SW cigar making machine supervisor regarding pt case. SW met with pt to complete [facility] suicide risk assessment. Pt reports that he made previous statements due to being in pain and wanted someone to do something. Pt reports no prior thoughts, no lifetime history of mental health concerns, treatment, or feelings of wishing to be . When SW questioned if pt had ever experienced this level of pain, pt replied no. When SW asked how pt would have responded at home to that level of pain, pt responded call 01-14-. Pt reports no guns at home. Pt reports that he has good family support and has a dog, Ky, that he cares for. [facility] for [facility]. SW updated hospitalist, who feels pt is able to be released from sitter precautions. SW updated charge nurse. SCOTT called pt step son/contact/hcpsamra Jam and ALBERT Hargrove to collaborate on pt care and coordinate discharge plans. Jam reports no prior mental health concerns. Jam reports that he does have some concerns that pt has a drink each night while taking opioids for his back pain. Jam feels that pt has had increasing back pain and need for medications since pt a year ago, although it is uncertain if that is due to progression of disease, more available time to notice symptomatology, or somatic. Jam reports no concerning statements or behaviors from pt. Jam reports that pt takes great care of his dog Ky, who was pt's 's dog prior to her passing, and is very attached to him. Jam reports that he and are supportive and have regular contact with pt. Beena expressed concern regarding UTI and treatment of such; SCOTT coordinated with bedside nurse and requested follow up with Beena in the morning when Beena calls in. SCOTT reviewed therapy recommendations and offered a list of SNF providers including quality and resource use data and consistent with the patient?s preferred geographic region, medical needs, and insurance network were provided from the [facility] Guide. Jam and Beena declined, citing [facility] as [facility] and [facility] as alternate. SCOTT previously verified with pt that he was agreeable to SCOTT reviewing list with Jam. SCOTT notified [facility] of referral request. SCOTT coordinated with SCOTT cigar making machine supervisor regarding outcome of [facility] and pt plans. SCOTT remains available to follow. ANGELO Will
--- NOTE | 2025-03-06 16:28 | CASEMGMT ---
Addendum entered by Anastasiia Barrera 03/07/25 09:14: [facility] has accepted and was asked to submit for precert. SW and physician updated. Addendum entered by Anastasiia Barrera 03/06/25 16:31: [facility] has declined d/t no bed availability. SCOTT updated. Anastasiia Barrera DC Planning Asst. Original Note: Discharge Planning Referral sent via [facility] to [facility] and [facility]. Anastasiia Barrera DC Planning Asst.
--- NOTE | 2025-03-06 16:32 | CASEMGMT ---
Social Work- SW received notice that [facility] does not have bed availability and was unable to accept referral at this time. SW remains available to follow for alternate ([facility]) referral determination. ANGELO Will
[2025-03-06] MEDS: Ensure Plus High Protein 120 ML LIQUID PO (22:57)
[2025-03-07 05:15] VITALS: O2SAT 86
[2025-03-07 05:20] VITALS: O2SAT 87
[2025-03-07 05:23] VITALS: BP 104/55; PULSE 71; RESP 16; TEMP 36.7; O2SAT 90
[2025-03-07 06:45] VITALS: O2SAT 92
[2025-03-07 07:45] VITALS: BP 96/59; PULSE 66; RESP 16; TEMP 36.6; O2SAT 94
[2025-03-07] MEDS: Thiamine Hydrochloride 100 MG Tablet PO (07:57)
--- NOTE | 2025-03-07 08:15 | PN.HOSP_ITS ---
Reason for Visit
--- NOTE | 2025-03-07 08:15 | PCM.PN.HOSP ---
Reason for Visit Chief Complaint: back pain Subjective Subjective Had large BM yesterday. Feeling better. Objective Data Objective Data Vital Signs: Vital Signs Temp Pulse Resp BP Pulse Ox O2 Del Method O2 Flow Rate 36.6 C 66 16 96/59 L 94 Nasal Cannula 4 03/07/25 07:45 03/07/25 07:45 03/07/25 07:45 03/07/25 07:45 03/07/25 07:45 03/07/25 07:49 03/07/25 07:49 Oxygen Flow Rate (L/min) 4 Oxygen Delivery Method Nasal Cannula Weight: 61.1 kg Body Mass Index (BMI) 22.4 Intake & Output: Intake and Output for Last 24 Hours 03/05/25 03/06/25 03/07/25 23:59 23:59 23:59 Intake Total 80 / 80 150 / 150 Output Total 975 / 975 1450 / 1450 Balance -895 / -895 -1300 / -1300 Lab / Micro Data 03/05/25 05:42 03/05/25 05:42 Micro: Microbiology 03/04/25 18:05 Urine, Catheterized Urine Culture - Preliminary GNR lactose bean sorter Physical Exam Const alert and no apparent distress Constitutional Narrative: comfortable. up in chair. HEENT head/scalp atraumatic and moist oral mucous membranes Cardio regular rate and regular rhythm Assessment & Plan Assessment/Plan (1) Back pain: PLAN: Plan Acute on chronic lower back pain Lumbar spine CT demonstrated spinal stimulator, diffuse disc space narrowing. There is asymmetric right sided foraminal stenosis suspected L3-L4. MRI from 03/01 showed spinal canal stenosis most advanced at L2-L3 and mild to moderate remaining levels. Additional multilevel moderate advanced neural foraminal stenosis Patient has chronic lower back pain and follows with Dr. Castañeda, had some kind of procedure 2 weeks ago that patient said was to puga the nerves but notes he has the same amount of pain, was taking the pain medication he was given but has run out of this, he also did not find the buprenorphine patch that he has been on for a long period of time helpful so he took this off 1 to 2 days ago and said he has noticed no difference Given patient's history, exam, imaging does not seem that there is an acute need for intervention, will admit patient and schedule Tylenol with as needed pain medication and topical Depending on mental status and tolerance could consider trial of a low-dose muscle relaxer as well but given age would try to avoid polypharmacy if possible Given patient has not been using his buprenorphine patch and does not want this back on this was not reordered Will consult PT/OT Case management consult Constipation administered dulcolax and miralax. Patient was offered magnesium citrate yesterday but he declined requesting an enema. Did have some small bowel movements thereafter. Demanded to have an enema today. Will administer magnesium citrate today. Patient complaining of severe abdominal pain today to the point where he wants to kill himself. Exam is inconsistent Patient did have CT of his abdomen pelvis performed on the ninth of this month showed a nonobstructive right renal calculi, left renal cyst, colonic diverticulosis without diverticulitis, long sigmoid wall thickening possibly due to nonspecific colitis. Dense colonic stool suggesting constipation. Pt received magnesium citrate and he subsequently had a large BM and was feeling better. Suicidal ideation Ruled out Patient met with social work and deemed not a suicide risk. He was saying he wanted to kill himself, apparently to emphasize to staff the severity of his pain, not an attempt to kill himself. No need for psychiatric placement. 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, appears patient is now back on Eliquis- Will continue medication Hx COPD-Continue home inhalers-Incentive spirometer Hypertension- Will hold home antihypertensive to allow room for pain control Tobacco use-Advise cessation-Nicotine replacement available if desired, presently denying Abnormal UA- Patient no symptoms consistent with urinary tract infection, there is leuk esterase and bacteria in urine with no nitrate and only 10-25 white cells, urine culture was sent, given no symptoms and patient afebrile with normal white count hesitant to start any empiric treatment as is suspect this is not a pathological infection- If patient were to develop symptoms, white count, fever, urine culture positive can start antibiotics JASMIN- Patient reports he has CPAP but has not used it in many years DVT ppx: Not indicated patient on full dose Eliquis Disposition: eventually to SNF. Charges/Coding Visit Charges Inpatient E&M: 14480 Subs Hosp L2
[2025-03-07] MEDS: Arthritis Pain Compound 60 CLICK TUBE TOPICAL (09:34)
[2025-03-07] MEDS: Ensure Plus High Protein 120 ML LIQUID PO ×2 (09:42→14:36)
[2025-03-07] MEDS: APIXABAN 5 MG TABLET PO (09:42)
--- NOTE | 2025-03-07 10:21 | CASEMGMT ---
Social Work- SW met with pt to discuss discharge plans. Pt updated that [facility] have beds. [facility] was able to accept. Pt inquired about TCU. SW completed referral. TCU declined due to [place] insurance. SW followed up with pt. SW reviewed SNF list of providers including quality and resource use data and consistent with the patient?s preferred geographic region, medical needs, and insurance network previously provided. [facility] agreeable [facility]. DCA updated and [facility] to start precert. Pt was sitting in chair, awake and alert, when SW entered room. Pt greeted SW and engaged fully in d/c planning discussions. Pt was laughing and smiling and overall observed to have a pleasant demeanor. Pt reports no pain, reports he is continuing to have bowel movements. Pt reports no thoughts of self harm or suicidal ideation. SW remains available to follow. Plan: [facility]; pend precert ANGELO Will
[2025-03-07 14:24] VITALS: BP 104/57; PULSE 64; RESP 16; TEMP 36.7; O2SAT 96
--- NOTE | 2025-03-07 16:05 | CASEMGMT ---
Social Work- SW received notice that precert has been obtained. Pt updated. SW called pt dtr to update. Bedside nurse and hospitalist updated. SW remains available to follow. Plan: [facility]; skilled level of care ANGELO Will
--- NOTE | 2025-03-07 16:05 | PCM.TXEXTCAR ---
Diet Diet Order/Speech Therapy: INPATIENT Hospital Diet / Speech Therapy Order(s) 03/04/25 20:43 Diet: Regular - General Food consistency:: Regular Liquid Consistency:: Regular/Thin Routine Orders/Code Status Code Status: DNRCC-A (no intubation) DC O2, CPAP, BIPAP needs Home O2 Discharge instructions: No Therapies Weight Bearing: Full weight bearing Physical Therapy: Eval and Treat Occupational Therapy: Eval and Treat Problem/Diagnosis (1) Back pain: Status: Acute Code(s): M54.9 - Dorsalgia, unspecified Plan Acute on chronic lower back pain Lumbar spine CT demonstrated spinal stimulator, diffuse disc space narrowing. There is asymmetric right sided foraminal stenosis suspected L3-L4. MRI from 03/01 showed spinal canal stenosis most advanced at L2-L3 and mild to moderate remaining levels. Additional multilevel moderate advanced neural foraminal stenosis Patient has chronic lower back pain and follows with Dr. Castañeda, had some kind of procedure 2 weeks ago that patient said was to puga the nerves but notes he has the same amount of pain, was taking the pain medication he was given but has run out of this, he also did not find the buprenorphine patch that he has been on for a long period of time helpful so he took this off 1 to 2 days ago and said he has noticed no difference Given patient's history, exam, imaging does not seem that there is an acute need for intervention, will admit patient and schedule Tylenol with as needed pain medication and topical Depending on mental status and tolerance could consider trial of a low-dose muscle relaxer as well but given age would try to avoid polypharmacy if possible Given patient has not been using his buprenorphine patch and does not want this back on this was not reordered Will consult PT/OT Case management consult Constipation administered dulcolax and miralax. Patient was offered magnesium citrate yesterday but he declined requesting an enema. Did have some small bowel movements thereafter. Demanded to have an enema today. Will administer magnesium citrate today. Patient complaining of severe abdominal pain today to the point where he wants to kill himself. Exam is inconsistent Patient did have CT of his abdomen pelvis performed on the ninth of this month showed a nonobstructive right renal calculi, left renal cyst, colonic diverticulosis without diverticulitis, long sigmoid wall thickening possibly due to nonspecific colitis. Dense colonic stool suggesting constipation. Pt received magnesium citrate and he subsequently had a large BM and was feeling better. Suicidal ideation Ruled out Patient met with social work and deemed not a suicide risk. He was saying he wanted to kill himself, apparently to emphasize to staff the severity of his pain, not an attempt to kill himself. No need for psychiatric placement. 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, appears patient is now back on Eliquis- Will continue medication Hx COPD-Continue home inhalers-Incentive spirometer Hypertension- Will hold home antihypertensive to allow room for pain control Tobacco use-Advise cessation-Nicotine replacement available if desired, presently denying Abnormal UA- Patient no symptoms consistent with urinary tract infection, there is leuk esterase and bacteria in urine with no nitrate and only 10-25 white cells, urine culture was sent, given no symptoms and patient afebrile with normal white count hesitant to start any empiric treatment as is suspect this is not a pathological infection- If patient were to develop symptoms, white count, fever, urine culture positive can start antibiotics JASMIN- Patient reports he has CPAP but has not used it in many years DVT ppx: Not indicated patient on full dose Eliquis Disposition: eventually to SNF. Allergies/Procedures Done in Hospital Allergies tiotropium (From Spiriva with Handi[employer]er) Allergy (Unknown, Verified 02/21/25 18:11) unknown ibuprofen (From Motrin) Allergy (Verified 02/21/25 18:11) Swelling Procedures: None Type of Care/Length of Stay Estimated LOS: Convalescent Care Less Than 30 days Type of Care Needed: Skilled Rehab Potential: Fair Prognosis: Good Additional Orders/Day of Discharge Day of Discharge: 03/07/25 Discharge Plan Admission Admit Date/Time: 03/04/25 19:29 Primary Reason for Your Visit: debility Attending Provider: Santana Angel Primary Care Provider: Shoshana Ulrich Consulting Providers: Rylie Arreaga Discharge Orders/Prescriptions Prescriptions: New levofloxacin 250 mg Tablet 250 mg PO DAILY@0600 Qty: 0 0RF acetaminophen 500 mg Tablet 1,000 mg PO Q8 Qty: 0 0RF oxycodone 5 mg Tablet 10 mg PO Q4H PRN PRN (Reason: Pain Score 4-10) 3 Days Qty: 12 0RF Ensure Plus High Protein 0.08 gram-1.5 kcal/mL Liquid 120 ml PO 4X/DAY Qty: 0 0RF polyethylene glycol 3350 [Miralax] 17 gram/dose powder 17 g PO DAILY Qty: 119 0RF bisacodyl [Dulcolax (bisacodyl)] 5 mg tablet,delayed release (DR/EC) 5 mg PO QHS 2 Days Qty: 2 0RF Continued amlodipine 5 mg tablet 5 mg PO DAILY Eliquis 5 mg tablet 5 mg PO BID albuterol sulfate 90 mcg/actuation HFA aerosol inhaler 2 puff INHALATION Q4H PRN (Reason: sob/wheezing) Patient Comments: pt sais he does not use because it doesnt help oxybutynin chloride 10 mg tablet extended release 24hr 10 mg PO DAILY Discontinued Breztri Aerosphere 160-9-4.8 mcg/actuation HFA aerosol inhaler 2 inh inhalation BID Patient Comments: pt states he does not use because it doesnt help buprenorphine 10 mcg/hour patch weekly 1 patch topical QWEEK Referrals / Follow Up: Shoshana Ulrich MD [Primary Care Provider, Family Practice] - Within 2 Weeks Sai Crockett MD [Med Staff - Active Staff, Pain Management] - Within 2 Weeks Disposition Disposition (needs filled in before D/C Order can be placed): [facility]
--- NOTE | 2025-03-07 16:17 | PHA.DC_ITS ---
Pharmacy DC Med Reconciliation
--- NOTE | 2025-03-07 16:17 | PHA.DC.MR.R ---
Pharmacy MD Med Reconciliation Pharmacy Service has performed discharge medication reconciliation for this patient. The patient's discharge medication list was reviewed for discrepancies and discrepancies were resolved. Medications at Discharge Home Medications amlodipine 5 mg tablet 5 mg PO DAILY BP 07/02/22 oxybutynin chloride 10 mg tablet,extended release 24 hr 10 mg PO DAILY OAB 09/19/23 albuterol sulfate 90 mcg/actuation aerosol inhaler 2 puff inhalation Q4H PRN sob/wheezing 01/18/25 apixaban 5 mg tablet (Eliquis) 5 mg PO BID 02/12/25 acetaminophen 500 mg tablet 1,000 mg (2 x 500 mg) PO Q8 #0 tabs 03/07/25 bisacodyl 5 mg tablet,delayed release (Dulcolax (bisacodyl)) 5 mg PO QHS 2 days #2 tabs 03/07/25 food supplemt, lactose-reduced 0.08 gram-1.5 kcal/mL oral liquid (Ensure Plus High Protein) 120 ml PO 4X/DAY #0 mL 03/07/25 levofloxacin 250 mg tablet 250 mg PO DAILY@0600 #0 tabs 03/07/25 oxycodone 5 mg tablet 10 mg (2 x 5 mg) PO Q4H PRN PRN Pain Score 4-10 3 days #12 tabs 03/07/25 polyethylene glycol 3350 17 gram/dose oral powder (Miralax) 17 g PO DAILY #119 grams 03/07/25
--- NOTE | 2025-03-07 16:23 | PCM.DC.SUM ---
Providers Date of Admission: 03/04/25 Primary Care Physician: Dr. Shoshana Ulrich MD Reason For Visit: INTRACTABLE BACK PAIN Diagnosis Discharge Diagnosis (1) Back pain: Status: Acute Code(s): M54.9 - Dorsalgia, unspecified Plan Acute on chronic lower back pain Lumbar spine CT demonstrated spinal stimulator, diffuse disc space narrowing. There is asymmetric right sided foraminal stenosis suspected L3-L4. MRI from 03/01 showed spinal canal stenosis most advanced at L2-L3 and mild to moderate remaining levels. Additional multilevel moderate advanced neural foraminal stenosis Patient has chronic lower back pain and follows with Dr. Castañeda, had some kind of procedure 2 weeks ago that patient said was to puga the nerves but notes he has the same amount of pain, was taking the pain medication he was given but has run out of this, he also did not find the buprenorphine patch that he has been on for a long period of time helpful so he took this off 1 to 2 days ago and said he has noticed no difference Given patient's history, exam, imaging does not seem that there is an acute need for intervention, will admit patient and schedule Tylenol with as needed pain medication and topical Depending on mental status and tolerance could consider trial of a low-dose muscle relaxer as well but given age would try to avoid polypharmacy if possible Given patient has not been using his buprenorphine patch and does not want this back on this was not reordered Will consult PT/OT Case management consult Constipation administered dulcolax and miralax. Patient was offered magnesium citrate yesterday but he declined requesting an enema. Did have some small bowel movements thereafter. Demanded to have an enema today. Will administer magnesium citrate today. Patient complaining of severe abdominal pain today to the point where he wants to kill himself. Exam is inconsistent Patient did have CT of his abdomen pelvis performed on the ninth of this month showed a nonobstructive right renal calculi, left renal cyst, colonic diverticulosis without diverticulitis, long sigmoid wall thickening possibly due to nonspecific colitis. Dense colonic stool suggesting constipation. Pt received magnesium citrate and he subsequently had a large BM and was feeling better. Suicidal ideation Ruled out Patient met with social work and deemed not a suicide risk. He was saying he wanted to kill himself, apparently to emphasize to staff the severity of his pain, not an attempt to kill himself. No need for psychiatric placement. 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, appears patient is now back on Eliquis- Will continue medication Hx COPD-Continue home inhalers-Incentive spirometer Hypertension- Will hold home antihypertensive to allow room for pain control Tobacco use-Advise cessation-Nicotine replacement available if desired, presently denying Abnormal UA- Patient no symptoms consistent with urinary tract infection, there is leuk esterase and bacteria in urine with no nitrate and only 10-25 white cells, urine culture was sent, given no symptoms and patient afebrile with normal white count hesitant to start any empiric treatment as is suspect this is not a pathological infection- If patient were to develop symptoms, white count, fever, urine culture positive can start antibiotics JASMIN- Patient reports he has CPAP but has not used it in many years DVT ppx: Not indicated patient on full dose Eliquis Disposition: Discharged to [facility] Medications at Discharge Home Medications amlodipine 5 mg tablet 5 mg PO DAILY BP 07/02/22 oxybutynin chloride 10 mg tablet,extended release 24 hr 10 mg PO DAILY OAB 09/19/23 albuterol sulfate 90 mcg/actuation aerosol inhaler 2 puff inhalation Q4H PRN sob/wheezing 01/18/25 apixaban 5 mg tablet (Eliquis) 5 mg PO BID 02/12/25 acetaminophen 500 mg tablet 1,000 mg (2 x 500 mg) PO Q8 #0 tabs 03/07/25 bisacodyl 5 mg tablet,delayed release (Dulcolax (bisacodyl)) 5 mg PO QHS 2 days #2 tabs 03/07/25 food supplemt, lactose-reduced 0.08 gram-1.5 kcal/mL oral liquid (Ensure Plus High Protein) 120 ml PO 4X/DAY #0 mL 03/07/25 levofloxacin 250 mg tablet 250 mg PO DAILY@0600 #0 tabs 03/07/25 oxycodone 5 mg tablet 10 mg (2 x 5 mg) PO Q4H PRN PRN Pain Score 4-10 3 days #12 tabs 03/07/25 polyethylene glycol 3350 17 gram/dose oral powder (Miralax) 17 g PO DAILY #119 grams 03/07/25 Hospital Course Operations None Procedures None Summary of Care Provided Hospital Course: Came in with intense mid back and abdominal pain. Patient abdominal pain was due to constipation and did have magnesium citrate and had a very large bowel movement and felt much better afterwards. Prior to that he was expressing that he wanted to kill himself because the pain was so severe but did not have any overt plan so did not require any further intervention other than meeting with social work. This statement was more of him specifying the severity of his pain rather than actual suicidal ideation. Patient will be going to [facility] in stable condition. Weight / BMI Weight Weight: 61.1 kg Body Mass Index (BMI) 22.4 ABG / Lab / Microbiology Data 03/05/25 05:42 03/05/25 05:42 Microbiology: Microbiology 03/04/25 18:05 Urine, Catheterized Urine Culture - Preliminary GNR lactose research food technologist D/C Instructions DC O2, CPAP, BIPAP Needs Home O2 Discharge instructions: No Meaningful Use Info Meaningful Use Meaningful Use Diagnoses (Choose all that apply): None applicable Discharge Plan Admission Admit Date/Time: 03/04/25 19:29 Primary Reason for Your Visit: debility Attending Provider: Santana Angel Primary Care Provider: Shoshana Ulrich Consulting Providers: Rylie Arreaga Discharge Orders/Prescriptions Prescriptions: New levofloxacin 250 mg Tablet 250 mg PO DAILY@0600 Qty: 0 0RF acetaminophen 500 mg Tablet 1,000 mg PO Q8 Qty: 0 0RF oxycodone 5 mg Tablet 10 mg PO Q4H PRN PRN (Reason: Pain Score 4-10) 3 Days Qty: 12 0RF Ensure Plus High Protein 0.08 gram-1.5 kcal/mL Liquid 120 ml PO 4X/DAY Qty: 0 0RF polyethylene glycol 3350 [Miralax] 17 gram/dose powder 17 g PO DAILY Qty: 119 0RF bisacodyl [Dulcolax (bisacodyl)] 5 mg tablet,delayed release (DR/EC) 5 mg PO QHS 2 Days Qty: 2 0RF Continued amlodipine 5 mg tablet 5 mg PO DAILY Eliquis 5 mg tablet 5 mg PO BID albuterol sulfate 90 mcg/actuation HFA aerosol inhaler 2 puff INHALATION Q4H PRN (Reason: sob/wheezing) Patient Comments: pt sais he does not use because it doesnt help oxybutynin chloride 10 mg tablet extended release 24hr 10 mg PO DAILY Discontinued Anita Aerosphere 160-9-4.8 mcg/actuation HFA aerosol inhaler 2 inh inhalation BID Patient Comments: pt states he does not use because it doesnt help buprenorphine 10 mcg/hour patch weekly 1 patch topical QWEEK Referrals / Follow Up: Shoshana Ulrich MD [Primary Care Provider, Family Practice] - Within 2 Weeks Sai Crockett MD [Med Staff - Active Staff, Pain Management] - Within 2 Weeks Disposition Disposition (needs filled in before D/C Order can be placed): [facility] Charges/Coding Visit Charges Inpatient E&M: 19687 Disch Hosp
--- NOTE | 2025-03-07 16:36 | CASEMGMT ---
Social Work Precert has been obtained.? Physician updated and pt is ready for discharge today.? 7000 convalescent form completed in [facility] and sent along with discharge orders to [facility] via [facility].? Transportation arranged with [facility] for 17:00 pickup via wheelchair van.? SW met with pt and they are agreeable to discharge plan as stated above.? Pt DIL Beena and son Jam and bedside nurse notified of discharge time. Disposition:[facility], skilled level of care ANGELO Will
== END 2025-03-07 17:20 | DRG 552 ==
LOC: ED 19:09 → MS3 19:32
PROVIDERS: Admitting Provider Internal Medicine; Emergency Provider Emergency Medicine; PCP Family Medicine
DX: M48.061 Spinal stenosis, lumbar region without neurogenic claudication (principal); F10.90 Alcohol use, unspecified, uncomplicated; Z66 Do not resuscitate; J44.9 Chronic obstructive pulmonary disease, unspecified; I10 Essential (primary) hypertension; G47.33 Obstructive sleep apnea (adult) (pediatric); M96.1 Postlaminectomy syndrome, not elsewhere classified; F17.210 Nicotine dependence, cigarettes, uncomplicated; K59.03 Drug induced constipation; G89.29 Other chronic pain; M51.360 Other intervertebral disc degeneration, lumbar region with discogenic back pain only; T40.2X5A Adverse effect of other opioids, initial encounter; R82.998 Other abnormal findings in urine; R29.6 Repeated falls; Z96.82 Presence of neurostimulator; Z79.01 Long term (current) use of 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; Z79.891 Long term (current) use of opiate analgesic; Z79.899 Other long term (current) drug therapy; Z86.718 Personal history of other venous thrombosis and embolism
CPT/HCPCS: 36415; 72131; 72148; 80048; 81001; 85025; 87077; 87086; 87088; 87186; 94640; 97162; 97166; 97530; 97535; 99285; A4216; J2405

== ENCOUNTER → 2025-04-02 | Outpatient (CLI) | payer MEDICARE, SELFPAY ==
--- NOTE | 2025-04-02 07:51 | ECHOD_ITS ---
Reason For Study Reason For Study: SHORTNESS OF BREATH, ABNORMAL EKG Procedure This was a 2D Doppler, Color Flow transthoracic echocardiogram. Exam performed in department. Left Ventricle Normal size and thickness. Apical false tendon noted. Mild apical hypokinesis. Estimated LVEF 50-55%. Stage II diastolic dysfunction. Right Ventricle Normal right ventricle. Atria The left and right atria are normal. Mitral Valve Moderate (2+) posteriorly directed mitral valve insufficiency. Tricuspid Valve Moderate (2+) tricuspid valve insufficiency. Right ventricular systolic pressure estimated to be 40 mmHg. Aortic Valve Trisinus/trileaflet aortic valve. Moderate (2+) aortic valve insufficiency. Pulmonic Valve The pulmonic valve is not well visualized. Great Vessels Normal sized aortic root. Pericardium/Pleural No pericardial effusion. MMode/2D Measurements & Calculations LVIDd: 5.5 cm IVSd: 0.59 cm Ao root diam: 3.3 cm LVIDs: 3.8 cm LVPWd: 0.83 cm RVDd: 4.4 cm FS: 31.0 % LAV(MOD-bp): 90.8 ml LVAd ap4: 39.0 cm2 LVAd ap2: 43.8 cm2 LAV(MOD-bp) Indexed: 54.6 ml/m2 LVLd ap4: 8.9 cm LVLd ap2: 9.5 cm LAV(MOD-sp2): 102.5 ml EDV(MOD-sp4): 139.1 ml EDV(MOD-sp2): 166.4 ml LAV(MOD-sp4): 70.2 ml EDV(sp4-el): 144.4 ml EDV(sp2-el): 172.2 ml LVAs ap4: 22.8 cm2 LVAs ap2: 24.1 cm2 LVLs ap4: 7.7 cm LVLs ap2: 8.0 cm ESV(MOD-sp4): 56.1 ml ESV(MOD-sp2): 60.9 ml ESV(sp4-el): 57.5 ml ESV(sp2-el): 61.5 ml EF(MOD-sp4): 59.7 % EF(MOD-sp2): 63.4 % EF(sp4-el): 60.2 % SV(MOD-sp4): 83.0 ml SV(MOD-sp2): 105.6 ml SV(sp4-el): 86.9 ml SI(MOD-sp4): 49.9 ml/m2 SI(MOD-sp2): 63.5 ml/m2 LA A4 area: 25.1 cm2 LA dimension(2D): 3.5 cm RA A4 area: 20.7 cm2 TAPSE: 2.0 cm Time Measurements MV dec time: 0.16 sec Doppler Measurements & Calculations MV E max gamaliel: 64.4 cm/sec Lat Peak E' Gamaliel: 8.0 cm/sec Med Peak E' Gamaliel: 5.9 cm/sec MV A max gamaliel: 112.8 cm/sec E/E' lat: 8.1 E/E' med: 10.9 MV E/A: 0.57 Ao V2 max: 167.2 cm/sec AI max gamaliel: 525.3 cm/sec MV dec slope: 415.0 cm/sec2 Ao max P.2 mmHg AI max P.5 mmHg Ao V2 mean: 111.3 cm/sec Ao mean P.8 mmHg AI dec slope: 319.3 cm/sec2 Ao V2 VTI: 39.4 cm AI P1/2t: 481.8 msec AV (velocity ratio): 0.63 LV V1 max: 115.4 cm/sec MR max gamaliel: 612.4 cm/sec PA V2 max: 64.0 cm/sec LV V1 max P.3 mmHg MR max P.0 mmHg LV V1 mean P.9 mmHg MR mean gamaliel: 463.3 cm/sec LV V1 mean: 79.1 cm/sec MR mean P.4 mmHg LV V1 VTI: 25.0 cm MR VTI: 229.5 cm TR max gamaliel: 295.5 cm/sec TR max P.9 mmHg ECHO/Echo Complete Interpretation Summary Mild apical hypokinesis. Estimated LVEF 50-55%. Stage II diastolic dysfunction. Moderate (2+) posteriorly directed mitral valve insufficiency. Moderate (2+) tricuspid valve insufficiency. Right ventricular systolic pressure estimated to be 40 mmHg. Moderate (2+) aortic valve insufficiency. Ordering Physician: Blas Arellano Referring Physician: Shoshana Ulrich Performed By: Kayla Somers RDCS
--- NOTE | 2025-04-02 11:44 | STRESSREP_ITS ---
Stress Test Report Date: 04/02/2025 Procedure: Pharmacologic stress nuclear imaging study Indications: Abnormal ECG Consent: Per the patient Procedure: The patient underwent pharmacologic (Regadenoson 0.4mg ) evaluation with a peak heart rate of 85 beats per minute (63%predicted maximal heart rate) and a peak blood pressure of 136/78 mmHg. The baseline ECG demonstrated sinus rhythm with first-degree AV block and incomplete right bundle branch block. The peak pharmacologic ECG did not show any ischemic changes. No significant cardiac dysrhythmias noted. There was no complaint of chest discomfort during pharmacologic infusion or recovery. The patient was injected with 10.9 millicuries of technetium 99m Cardiolite and subsequently rest SPECT Cardiolite nuclear imaging was obtained in the horizontal long, vertical long, and short axis views. The patient underwent pharmacologic (Regadenoson) evaluation. The patient was injected with 33.7 millicuries of technetium 99m Cardiolite and subsequently stress SPECT Cardiolite nuclear imaging was obtained in the horizontal long, vertical long, and short axis views. A gated Cardiolite study at peak stress was obtained. The examination was stopped secondary to completion of protocol. Rest and stress SPECT Cardiolite nuclear imaging status post realignment, normalization, and attenuation correction demonstrate small apical reversible defect of mild intensity suggestive of small area of apical ischemia. There is end systolic thickening and brightening. The gated Cardiolite study demonstrates myocardial thickening and inward wall motion. The reported LVEF is 62%. Impression: 1. Pharmacologic (Regadenoson) evaluation 2. Peak pharmacologic ECG with no ischemic changes. 3. No significant cardiac dysrhythmias noted. 5. Small apical reversible perfusion defect of mild intensity, suggestive of mild apical ischemia involving 4% of myocardium. 6. The gated Cardiolite study reports an LVEF of 62%. This note was generated with [employer] software. It may contain incorrect words, spelling, and punctuation that were not noted in checking the note before signing.
== END | disposition home or self-care (01) ==
PROVIDERS: PCP Family Medicine; Referring Provider Internal Medicine Cardiovascular Disease; Visit Provider Internal Medicine Cardiovascular Disease
DX: I25.10 Atherosclerotic heart disease of native coronary artery without angina pectoris (principal); E78.5 Hyperlipidemia, unspecified; R06.02 Shortness of breath; R06.09 Other forms of dyspnea; R94.31 Abnormal electrocardiogram [ECG] [EKG]
CPT/HCPCS: 78452; 93017; 93306; A9500; A4216; J2785

== ENCOUNTER 2025-04-08 20:01 | Emergency (ER) | payer MEDICARE, SELFPAY ==
[2025-04-08 20:03] VITALS: BP 130/60; PULSE 75; RESP 16; TEMP 36.7; O2SAT 96; BMI 21.4
[2025-04-08 20:07] VITALS: BP 130/60; PULSE 75; RESP 22; TEMP 36.7; O2SAT 100
--- NOTE | 2025-04-08 20:23 | CT_ITS ---
PROCEDURE: ABDOMEN/PELVIS W IV CONT ONLY 04/08/2025 REASON FOR EXAM: ABDOMINAL PAIN TECHNIQUE: Procedure Code: [id number] Modality: CT Procedure: ABDOMEN/PELVIS W IV CONT ONLY Coronal and Sagittal reconstruction series were provided. CONTRAST: Isovue 370 VOLUME: 96 mL One or more dose reduction techniques were used (e.g., Automated exposure control, adjustment of the mA and/or kV according to patient size, use of iterative reconstruction technique. RADIATION DOSE SUMMARY: CTDlvol: 16+ 8+ 7 mGy DLP: 521 mGycm COMPARISON: 02/21/2025. FINDINGS: Right lower lobe 2.8 cm round density with swirling comet tail compatible with round atelectasis, unchanged. Degenerative changes of the spine and hips. Trace right pleural effusion. Small bilateral fat containing inguinal hernias. Probable scrotal sac hydrocele. A spinal stimulator is present. Severe degenerative changes of the spine. Levoscoliosis. Severe atherosclerosis. Stable infrarenal abdominal aortic aneurysm measuring 3.6 cm in diameter. An infrarenal IVC filter is present. The liver is unremarkable. Small volume free intraperitoneal air. Small volume free fluid in the pelvis. The gallbladder is unremarkable. Atrophic pancreas with pancreatic duct diameter of 6 mm. Nonemergent MRCP is needed. Numerous splenic punctate calcifications likely representing prior granulomatous infection. Nonspecific bilateral thickening of the adrenal glands appear similar to the prior. Bilateral renal cortical atrophy. Bilateral subcentimeter hypodense renal lesions that are too small to characterize. Left kidney simple cyst. No hydroureteronephrosis. Urinary bladder is collapsed around a Puentes catheter. Colonic diverticulosis. If there is no evidence of recent surgery the free air is most likely due to a perforated viscus. CT/Abdomen/Pelvis W IV Cont ONLY IMPRESSION: Small volume free intraperitoneal air which, in the absence of recent surgery, is concerning for perforated viscus. Small volume free fluid in the pelvis. Infrarenal abdominal aortic aneurysm. Atrophic pancreas with a dilated pancreatic duct measuring 6 mm. Nonemergent MR CP is recommended. Right lower lobe round atelectasis measuring 2.8 cm, unchanged. Severe atherosclerosis. Bilateral renal cortical atrophy with subcentimeter renal lesions that are too small to characterize and a left renal simple cyst. No hydroureteronephrosis. Trace right pleural effusion. Colonic diverticulosis. Critical results were communicated to nurse Peters at 10 p.m. Reading Location: [id number]
--- NOTE | 2025-04-08 20:24 | ED.VIS.GI ---
HPI HPI - GI History of Present Illness Chief Complaint: Abd Pain Informant: patient, family and EMS Narrative Narrative: 89-year-old male presenting to the emergency room chief complaint of abdominal pain. Patient states his symptoms began abruptly across the lower abdomen about 40 minutes before my exam. He states this comes in waves and is severe. States has been having regular bowel movements which is a big change for him because he was having some constipation issues. He is on chronic narcotics due to chronic back pain. Since his hospitalization at the end of February he has been more regular. He states his has a chronic indwelling Puentes catheter and he has not had any problems with that emptying. He states he recently underwent a cardiac stress test and was told he has something wrong with the valve on the left side of his heart. He states that just prior to feeling the pain in his abdomen he felt something funny with his heart. In speaking with the patient's son he reports that the patient takes a lot of aspirin on a regular basis. 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 Wears glasses Wears hearing aid in both ears Cancer Hx of gout CPAP (continuous positive airway pressure) dependence Shortness of breath on exertion Smoker Emphysema, unspecified Hypertension Restless legs Injury of back Home Medications ?Medication ?Instructions ?Recorded ?Last Taken ?Type amlodipine 5 mg tablet 5 mg PO DAILY BP 07/02/22 03/04/25 History albuterol sulfate 90 mcg/actuation 2 puff inhalation Q4H PRN 01/18/25 Unknown History aerosol inhaler sob/wheezing acetaminophen 500 mg tablet 1,000 mg (2 x 500 mg) PO Q8 #0 tabs 03/07/25 Unknown Rx bisacodyl 5 mg tablet,delayed 5 mg PO QHS 2 days #2 tabs 03/07/25 Unknown Rx release (Dulcolax (bisacodyl)) food supplemt, lactose-reduced 120 ml PO 4X/DAY #0 mL 03/07/25 Unknown Rx 0.08 gram-1.5 kcal/mL oral liquid (Ensure Plus High Protein) polyethylene glycol 3350 17 17 g PO DAILY #119 grams 03/07/25 Unknown Rx gram/dose oral powder (Miralax) duloxetine 60 mg capsule,delayed 60 mg PO QDAY 03/27/25 Unknown History release sprinkle melatonin 3 mg capsule 3 mg PO HS PRN 03/27/25 Unknown History naloxone 0.4 mg/mL injection 0.4 mg IM Q2M PRN 03/27/25 Unknown History syringe amitriptyline 10 mg tablet 10 mg PO QPM 04/08/25 Unknown History apixaban 5 mg tablet (Eliquis) 5 mg PO BID 04/08/25 Unknown History oxycodone-acetaminophen 7.5 mg-325 1 tab PO TID PRN pain 04/08/25 Unknown History mg tablet Allergy/AdvReac Type Severity Reaction Status Date / Time tiotropium (From Spiriva Allergy Unknown unknown Verified 04/08/25 20:07 with HandiHaler) ibuprofen (From Motrin) Allergy Swelling Verified 04/08/25 20:07 Family History Mother , 61 Cancer Father , 91 AD (Alzheimer's disease) Sister Multiple sclerosis Surgical History History of back surgery S/P TURP (transurethral resection of prostate) History of cataract surgery History of embolic filter insertion Hx of colonoscopy with polypectomy History of hand surgery S/P insertion of spinal cord stimulator History of varicose vein stripping Hx of myringotomy History of parotidectomy History of esophagogastroduodenoscopy (EGD) History of cystoscopy Hx of basal cell carcinoma excision Hx of finger joint replacement Hx of decompressive lumbar laminectomy Social History household members: none housing: house current occupational status: retired pets and animals: Yes pets and animals: dog(s) Smoking Status: Current every day smoker tobacco type: cigarettes Tobacco: How many years used: 69 alcohol intake: current details: On avg a couple drinks each evening substance use type: does not use caffeine: Yes Type: coffee Number of servings: 2 do you feel safe at home: Yes ROS ROS ED Constitutional Constitutional ED: Denies chills or weight loss Eyes Eyes: Denies change in vision or diplopia ENT ENT ED: Denies ear pain, rhinorrhea or sore throat Cardiovascular Cardiovascular: Reports chest pain; Denies orthopnea, palpitations or racing heartbeat Respiratory/Chest Respiratory/Chest: Denies cough, dyspnea or orthopnea Gastrointestinal Gastrointestinal: Reports abdominal pain; Denies constipation, diarrhea, nausea or vomiting Genitourinary Genitourinary ED: Denies dysuria, hematuria or urinary frequency Musculoskeletal Musculoskeletal: Denies arthralgias or myalgias Integumentary Denies abscess or rash Neurologic Neurologic: Denies headache(s) or weakness Psychiatric Psychiatric: Denies anxiety, depression, suicidal ideation or suicidal thoughts Endocrine Endocrinology: Denies polydipsia, polyphagia or polyuria Allergic/Immunologic Allergic/Immunologic ED: Denies mouth swelling, tongue swelling or urticaria EXAM Physical Exam Narrative Exam Narrative: Patient is writhing on the bed. He has frequent screams of pain pointing to the lower abdomen. Const Vital Signs: 04/08/25 20:03 04/08/25 20:07 04/08/25 21:07 Temperature 98.1 F 98.1 F 98.1 F Temperature Source Oral Oral Oral Pulse Rate 75 75 71 Respiratory Rate 16 22 H 18 Blood Pressure 130/60 H 130/60 H 94/69 Blood Pressure Mean 83 83 77 Pulse Ox 96 100 94 Oxygen Delivery Method Room Air Room Air Room Air 04/08/25 22:02 04/08/25 22:19 04/08/25 23:19 Temperature 97.9 F 97.9 F Temperature Source Oral Oral Pulse Rate 72 64 83 Respiratory Rate 16 19 H 19 H Blood Pressure 102/60 96/64 140/79 H Blood Pressure Mean 74 74 99 Pulse Ox 94 92 92 Oxygen Delivery Method Room Air Room Air Room Air 04/09/25 00:00 Temperature 97.9 F Temperature Source Oral Pulse Rate 80 Respiratory Rate 16 Blood Pressure 115/76 Blood Pressure Mean 89 Pulse Ox 92 Oxygen Delivery Method Room Air Positive well nourished and well developed General Appearance ED: well developed HEENT Reports normocephalic, head/scalp atraumatic and moist mucous membranes Eyes PERRL and EOMs intact bilaterally Neck no lymphadenopathy, supple and no JVD Resp normal respiratory effort and clear to auscultation bilaterally Cardio regular rate, regular rhythm and no murmurs GI GI Narrative: Difficult to say if palpation is tender or if he is having pain without palpation. Inspection: Negative for abdominal distention Auscultation: normoactive bowel sounds Palpation: soft Narrative: Puentes catheter present Back/Spine no CVA tenderness and normal ROM Extremity normal to inspection General Extremety ED: Negative for edema General Extremity: Negative for edema Neuro oriented x3 and CN's II-XII intact bilaterally Sensorium / Orientation: alert Motor Exam: strength 5/5 throughout Psych mental status grossly normal Mood & Affect: Negative for depressed or tearful Skin no rashes or lesions noted and no wounds MDM MDM MDM Narrative Medical decision making narrative: Differential diagnosis includes constipation colitis diverticulitis volvulus perforated viscus UTI Patient's white count is 7 hemoglobin of 9.9 platelet count of 367. Creatinine 1.24 with a BUN of 35 glucose 126 normal LFTs. Urinalysis 10-25 white cells 5-10 red cells 1+ bacteria positive leukocyte esterase negative nitrates. Patient was taken to CT with IV contrast. This was read by radiology reviewed by myself. There is some evidence of free air and I am concerned of a perforated viscus. Patient has been receiving IV fluids as well as Dilaudid. Zosyn was also administered. Independent interpretation of the plain film for NG placement is initial OG tube proximal esophagus or laryngeal area. My independent interpretation of the next NG plain film is the NG tube in the esophagus that is curled in the mid to distal esophagus. My depend interpreted action of the next NG plain film is appropriate position in the stomach. He is on Eliquis Patient received a dose of Kcentra. I spoke with our on-call surgeon Dr. Morrison who is recommending transfer. I spoke with the patient and his son they do not have a preference for tertiary care facilities. I spoke with [facility] he has been accepted. Ambulance will be here in about 45 minutes for any emergent transfer. History & Record Review Discussion w/independent historian: Patient and Family (Son) Additional record(s) reviewed:: Prior labs Lab Data Attestation: I reviewed the patient's lab results. Labs: Laboratory Results - last 24 hr 04/08/25 04/08/25 04/08/25 20:09 21:08 22:23 WBC 7.0 RBC 3.21 L Hgb 9.9 L Hct 31.0 L MCV 96.6 H MCH 30.8 MCHC 31.9 L RDW Std Deviation 66.9 H RDW Coeff of Beth 18.9 H Plt Count 367 MPV 9.6 Immature Gran % (Auto) 1.000 H Neut % (Auto) 75.1 H Lymph % (Auto) 14.8 L [place] % (Auto) 5.4 Eos % (Auto) 3.1 Baso % (Auto) 0.6 Absolute Neuts (auto) 5.3 Absolute Lymphs (auto) 1.04 Nucleated RBC % 0 Differential Comment SCANNED Platelet Estimate ADEQUATE Polychromasia 1+ Hypochromasia 1+ Anisocytosis 2+ PT 16.3 H INR 1.3 APTT 37.2 H Sodium 137 Potassium 4.7 Chloride 103 Carbon Dioxide 21.4 Anion Gap 13 BUN 35 H Creatinine 1.24 H Estim Creat Clear Calc 34.67 L Est GFR (MDRD) Non-Af 56 L BUN/Creatinine Ratio 28.4 H Glucose 126 H Lactic Acid < 1.0 Calcium 8.8 Total Bilirubin 0.24 AST 18 ALT 11 Alkaline Phosphatase 71 Total Protein 6.8 Albumin 3.8 Globulin 3.0 Albumin/Globulin Ratio 1.3 Urine Color Yellow Urine Clarity Sl. Cloudy Urine pH 5.0 Ur Specific Hardy 1.015 Urine Protein 30 H Urine Glucose (UA) Normal Urine Ketones Negative Urine Occult Blood 150 H Urine Nitrite Negative Urine Bilirubin Negative Urine Urobilinogen Normal Ur Leukocyte Esterase 500 H Urine RBC 5-10 SEEN Urine WBC 10-25 SEEN Ur Squamous Epith Cells 0-5 SEEN Ur Transition Epith Cell 0-5 SEEN Urine Bacteria 1+ Urine Mucus 0 SEEN Radiography Diagnostic Testing: Clinical Impression(s) from Imaging Studies Abdomen/Pelvis CT 04/08/25 20:23 IMPRESSION: Small volume free intraperitoneal air which, in the absence of recent surgery, is concerning for perforated viscus. Small volume free fluid in the pelvis. Infrarenal abdominal aortic aneurysm. Atrophic pancreas with a dilated pancreatic duct measuring 6 mm. Nonemergent MRCP is recommended. Right lower lobe round atelectasis measuring 2.8 cm, unchanged. Severe atherosclerosis. Bilateral renal cortical atrophy with subcentimeter renal lesions that are too small to characterize and a left renal simple cyst. No hydroureteronephrosis. Trace right pleural effusion. Colonic diverticulosis. Critical results were communicated to nurse Peters at 10 p.m. Reading Location: [address] Management Discussion w/another healthcare provider: General Road Production Manager (Dr. Morrison(general surgeon) / Dr. Ruffin ([facility])) Critical Care Time Critical Care Time: Yes Critical care time (excluding procedures): 30-74 minutes (35 min), Including time spent:, Discussing w/Patient &/or Family/Diesel Scoop Operator, Discussing w/Consultants, Arranging Admission or Transfer and Performing Direct Patient Care at Bedside Discharge Plan Triage Chief Complaint: Abd Pain ED Provider: Steven Hilliard Dx/Rx/DC Orders Prescriptions: No Action amlodipine 5 mg tablet 5 mg PO DAILY duloxetine 60 mg capsule, delayed rel sprinkle 60 mg PO QDAY albuterol sulfate 90 mcg/actuation HFA aerosol inhaler 2 puff INHALATION Q4H PRN (Reason: sob/wheezing) Patient Comments: pt sais he does not use because it doesnt help amitriptyline 10 mg tablet 10 mg PO QPM oxycodone-acetaminophen 7.5-325 mg tablet 1 tab PO TID PRN (Reason: pain) Eliquis 5 mg tablet 5 mg PO BID acetaminophen 500 mg Tablet 1,000 mg PO Q8 Qty: 0 0RF Ensure Plus High Protein 0.08 gram-1.5 kcal/mL Liquid 120 ml PO 4X/DAY Qty: 0 0RF polyethylene glycol 3350 [Miralax] 17 gram/dose powder 17 g PO DAILY Qty: 119 0RF bisacodyl [Dulcolax (bisacodyl)] 5 mg tablet,delayed release (DR/EC) 5 mg PO QHS 2 Days Qty: 2 0RF Primary Care Provider: Shoshana Ulrich Referrals: Shoshana Ulrich MD [Primary Care Provider, Family Practice] Print Language: Sami
--- OUTSIDE RECORDS SUMMARY | 2025-04-08 20:27 | XMS RPT_ITS | CCD ---
Author Organization [facility] Care Team Providers Care Track Fitter Name Role Phone Yensho FIRER HELPER, Geetha A Unavailable Unavailab le Yensho EBONIE, Geetha A Unavailable Unavailab Melia Rios Unavailable Unavailable Sheila Malloy Unavailable Unavailable Mark Anaya Unavailable Sheila Malloy Unavailable Unavailable Melia Martinez LPN Unavailable Unavaila ble Dr. Shoshana Ulrich Primary Care Provider [phone]([facility])[phone] Dr. Shoshana Ulrich Referring Provider 1([facility])[phone] Dr. Shoshana Ulrich Other Provider Dr. Mark Anaya Attending Provider 1([facility])[phone] Rubén Sims Attending Provider 1([facility])[phone] Shoshana Ulrich Primary Care Provider 1([facility])[phone] Dr. Stefan Orr Attending Provider 1([phone] Sam Foster Referring Provider Dr. Shoshana Ulrich Primary Care Provider 1([facility])[phone] Dr. Stefan Orr Attending Provider [phone] Sam Foster Referring Provider AARON Olmedo Attending Provider Dr. Stefan Orr Attending Provider Dr. Edgar Hennessy Attending Provider Dr. Michele Ruby Referring Provider Dr. Shoshana Ulrich Primary Care Provider Dr. Stefan Orr Attending Provider [phone] Shoshana Ulrich Primary Care Provider [phone] Dr. Stefan Orr Attending Provider [phone] [...] Provider Dr. Santana Sandoval DO Emergency Provider Martin SALAMANCA, Dr. Gibbs Attending Provider Martin SALAMANCA, Dr. Gibbs Referring Provider Dr. Santana Mason MD Attending Provider Dr. Marco Antonio Garay DO Attending Provider Dr. Marco Antonio Garay DO Emergency Provider Kristen Dia Attending Provider Carolina TAPIA, Dr. Garcia Attending Provider Dr. Shoshana Ulrich MD Primary Care Provider Dr. Girish Rucker MD Referring Provider Dr. Shoshana Ulrich MD Attending Provider Dr. Rand Rollins DO Referring Provider Ria GIRON, Dr. Gordillo Emergency [...] Daniel Neal DO Attending Provider Dr. Santana Mason MD Other Provider [phone] Santana Mason MD Attending Provider Ángel GIRON, Dr. Sanchez Other Provider Dr. Shoshana Ulrich MD Primary Care Provider Ria GIRON, Dr. Gordillo Referring Provider Adan TAPIA, Dr. Odonnell Attending Provider Dr. Raghav Serrano DO Referring Provider Arthur LAURA-C, Alyce Attending Provider [phone] Jose Figueroa MD Unavailable Dr. Daniel Neal DO Referring Provider Dr. Shoshana Ulrich MD Referring Provider Kristen Dia Attending Provider [phone] OLGA CHRISTIANSON Attending Unavailable Dr. Shoshana Ulrich MD Primary Care Provider Kristen Dia Referring Provider [phone] Eduardo Calero Attending Provider Mojgan TAPIA, Dr. Anna Primary Care Physician Dr. Rand Rollins DO Emergency Department Physi eli Zach GIRON, Dr. [...] Adan TAPIA, Dr. Odonnell Attending Physician Arthur TALENT RECRUITER-C, Alyce Attending Physician Kristen Dia Attending Physician Eduardo Calero Attending Physician Mojgan TAPIA, Dr. Anna Attending Physician Chito Werner MD Emergency Department Physician Mojgan TAPIA, Dr. Anna Primary Care Physician Isabella TAPIA, Dr. Dillon Attending Physician Adan TAPIA, Dr. Odonnell Attending Physician Alphonso TAPIA, Chito Attending Physician Bon TAPIA, Dr. Gibbs Attending Physician Dr. Sai Crockett MD Referring Provider Dr. Gera Beard MD Emergency Department Physici an Gibson TAPIA, Dr. Youngblood Admitting Physician Gibson TAPIA, Dr. Youngblood Nurse Practitioner Dr. Santana Angel DO Attending Physician Dr. Santana Angel DO Nurse Practitioner Wilfredo Razo MD Attending Physician Unavail able Mojgan TAPIA, Dr. Anna Primary Care Physician Mojgan TAPIA, Dr. Anna Referring Provider Jose Luis WALKER, Kristen Attending Physician Jose Luis WALKER, Kristen Referring Provider Isabella TAPIA, Dr. Dillon Attending Physician Eduardo Calero Attending Physician Mojgan TAPIA, Dr. Anna Attending Physician Adan TAPIA, Dr. Odonnell Attending Physician Alphonso TAPIA, Chito Attending Physician Chito Werner MD Emergency Department Physician Bon TAPIA, Dr. Gibbs Attending Physician Bon TAPIA, Dr. Gibbs Referring Provider Chirag TAPIA, Dr. Boss Emergency Department Physici an Gibson TAPIA, Dr. Youngblood Admitting Physician Gibson TAPIA, Dr. Youngblood Nurse Practitioner Dr. Santana Angel DO Attending Physician Stanley GIRON, Dr. Dillon Nurse Practitioner Wilfredo Razo MD Attending Physician Unavail able Shoshana Ulrich Attending Unavailable Shoshana Ulrich Primary Care Unavailable Shoshana Ulrich Attending Unavailable Lynnedel, Shoshana Primary Care Unavailable Miedel, Shoshana Referring Unavailable Blas Arellano Attending Unavailable Lynnedel, Shoshana Primary Care Unavailable Miedel, Shoshana Referring Unavailable Miedel, Shoshana Primary Care Unavailable Raghav Serrano Consulting Unavailable Raghav Serrano Admitting Unavailable Rand Rollins Referring Unavailable Daniel Neal Attending Unavailable Gibson, Rylie Consulting Unavailable Isaeblla, Santana Consulting Unavailable [facility] Primary Care Unavailable Alyce Gibson Attending Unavailable Santana Angel Attending Unavailable [facility] Care Unavailable Rylie Arreaga Admitting Unavailable Arreaga, Rylie Consulting Unavailable Stanley, Santana Consulting Unavailable [facility] Primary Care Unavailable AmayaKristen Attending Unavailable [facility] Referring Unavailable Adan, Blas Referring Unavailable Renata Arellanod Attending Unavailable [facility] Primary Care Unavailable [facility] Primary Care Unavailable Santana Mason Attending Unavailable Sai Salazar Referring Unavailable [facility] Primary Care Unavailable Santana Mason Attending Unavailable Daniel Neal Referring Unavailable Rylie Arreaga Attending Unavailable [facility] Primary Care Unavailable Wilfredo Bray Attending Unavailabl Santana Saldivar Attending Unavailable [facility] Primary Care Unavailable Rylie Arreaga Admitting Unavailable Gibson, Rylie Consulting Unavailable Sai Crockett Attending Unavailable [facility] Care Unavailable Sai Crockett Referring Unavailable [facility] Primary Care Unavailable Amaya, Kristen Referring Unavailable AmayaJasvir ayonison Attending Unavailable [facility] Care Unavailable AmayaJasvirKristen Referring Unavailable Santana Mason Attending Unavailable Rand Rollins Referring Unavailable [facility] Primary Care Unavailable Raghav Serrano Attending Unavailable Raghav Serrano Consulting Unavailable Raghav Serrano Admitting Unavailable Eduardo Calero Attending Unavailable [facility] Primary Care Unavailable [facility] Referring Unavailable [facility] Primary Care Unavailable Chito Werner Attending Unavailable Rylie Arreaga Attending Unavailable Gibson, Rylie Consulting Unavailable [facility] Primary Care Unavailable Raghav Serrano Admitting Unavailable Raghav Serrano Consulting Unavailable Daniel Neal Attending Unavailable Rand Rollins Referring Unavailable Arreaga, Rylie Consulting Unavailable Dardanelle, Santana Consulting Unavailable Ángel Daniel Consulting Unavailable [facility] Primary Care Unavailable Girish Rucker Referring Unavailable Jose Figueroa Attending Unavailable [facility] Primary Care Unavailable [facility] Attending Unavailable [facility] [place], Shoshana Referring Unavailable Chito Werner Attending Unavailable Fled, Shoshana Primary Care Unavailable Miedel, Shoshana Primary Care Unavailable Marco Antonio Garay Attending Unavailabl e Miedel, [place] Primary Care Unavailable Santana Sandoval Attending Unavailable Fled, Shoshana Primary Care Unavailable Fled, Shoshana Attending Unavailable Fled, [place] Primary Care Unavailable Sai Salazar Attending Unavailable Sai Salazar Referring Unavailable Miedel, Shoshana Primary Care Unavailable Wilfredo Bray Attending Unavailabl e Miedel, Shoshana Primary Care Unavailable Wilfredo Bray Attending Unavailabl e Miedel, [place] Primary Care Unavailable Kristen Amaya Attending Unavailable Fledel, Shoshana Referring Unavailable Fledel, Shoshana Primary Care Unavailable Kristen Amaya Attending Unavailable Fled, Shoshana Referring Unavailable Santana Mason Attending Unavailable Blas Arellano Attending Unavailable [facility] [place], [place] Primary Care Unavailable Raghav Serrano Referring Unavailable Kristin Sp Admitting Unavailable Fled, Shoshana Primary Care Unavailable Kristin Sp Attending Unavailable Kristin, Sp Referring Unavailable Allergies Allergy Classification Reported Allergen(s) Allergy Type Date of Onset Reaction(s) Facility (13 sources) ibuprofen drug allergy 7 Swelling of legs, Swelling [facility] Work Phone: (20 sources) Ibuprofen Drug Allergy 2 Swelling [facility] (5 sources) tiotropium Drug Allergy 5 unknown [facility] (1 source) Ibuprofen Drug Allergy 5 [facility] (1 source) tiotropium Drug Allergy 5 [facility] Medications Current Medications Medication Drug Class(es) Dates Sig (Normalized) Sig (Original) acetaminophen 500 mg oral tablet (2 sources) Start: 03-07-2025 Start: 03-07-2025 take 2 tablets by mouth every eight hours acetaminophen 325 mg / HYDROcodone bitartrate 5 mg oral tablet (20 sources) Opioid Agonist Start: 09-08-2021 take 1 tablet by mouth every six hours Hydrocodone-Acetaminophen Active 1 TABLET PO EVERY 6 HOURS 10 September 08, 2021 Start: 08-16-2020 End: 08-19-2020 Start: 08-16-2020 End: 08-19-2020 Hydrocodone-Acetaminophen 1 TABLET tablet Discontinued 1 {tbl} PO EVERY 6 HOURS NEEDED as needed for Pain 10 3 August 16, 2020 August 18, 2020 12:00am August 19, 2020 12:04am Cellulitis of right hand Cellulitis of right upper limb Start: 08-16-2020 End: 08-19-2020 take 1 tablet by mouth every six hours as needed Hydrocodone-Acetaminophen Discontinued 1 TABLET PO EVERY 6 HOURS NEEDED 10 August 16, 2020 August 19, 2020 12:04am Start: 10-10-2015 End: 12-29-2015 Start: 10-10-2015 End: 12-29-2015 Hydrocodone-Acetaminophen (V icodin 5-300 Mg Tablet) 1 EACH tablet Discontinued 1 {tbl} PO EVERY 6 HOURS NEEDED as needed for Pain October 10, 2015 12:00am December 29, 2015 1:30pm Start: 10-07-2015 End: 12-29-2015 Start: 10-07-2015 End: 12-29-2015 Hydrocodone-Acetaminophen 1 TABLET tablet Discontinued 1 - 2 {tbl} PO EVERY 4 HOURS NEEDED as needed for Pain October 07, 2015 12:00am December 29, 2015 1:30pm Start: 10-07-2015 End: 12-29-2015 take 1 tablet by mouth every four hours as needed Hydrocodone-Acetaminophen Discontinued 1 - 2 TABLET PO EVERY 4 HOURS NEEDED October 07, 2015 12:00am December 29, 2015 1:30pm [id number] 200 actuat albuterol 0.09 mg/actuat metered dose inhaler (20 sources) beta2-Adrenergic Agonist Start: 09-08-2021 take 1 puff(s) by inhalation every four hours as needed Albuterol Sulfate Active 1 PUFF INHALATION EVERY 4 HOURS NEEDED September 08, 2021 10:09am Start: 09-08-2021 End: 01-18-2025 Start: 09-08-2021 End: 01-18-2025 Start: 09-08-2021 take 1 puff(s) by in halation every four hours Albuterol Sulfate Active 1 PUFF INHALATION Q4H September 08, 2021 12:00am AMITRIPT (1 source) Start: 02-21-2025 End: 03-04-2025 AMITRIPT Discontinued February 21, 2025 12:00am March 04, 2025 4:29pm amLODIPine 5 mg oral tablet (20 sources) Dihydropyridine Calcium Channel David Start: 04-26-2020 amoxicillin 500 mg oral capsule (1 source) [...] (20 sources) Factor Xa Inhibitor Start: 02-12-2025 Start: 02-12-2025 take 1 tablet by marielle th twice daily Apixaban (Eliquis) 5 mg tablet Active 5 mg PO TWICE A DAY February 12, 2025 12:00am Complies with drug therapy Start: 01-01-2025 End: 01-18-2025 Start: 06-27-2024 End: 11-06-2024 Start: 06-20-2024 End: 07-13-2024 Start: 06-20-2024 End: 07-13-2024 take 1 tablet by mouth once Apixaban (Eliquis Dvt-Pe T reat 30d Start) 5 mg (74 tabs) tablets,dose pack Discontinued 0 PO .COMPLEX 74 0 June 20, 2024 1:00am July 13, 2024 2:03pm orally per package directions bisacodyl 5 mg delayed relea se oral tablet (2 sources) Stimulant Laxative Start: 03-07-2025 Start: 03-07-2025 take 1 tablet by mouth at bedt lupe Pdjlwrwumx-Zpufnvxm-Ocbrqsum ol (20 sources) Corticosteroid, beta2-Adrenergic Agonist Start: 01-01-2025 End: 03-07-2025 Start: 01-01-2025 End: 03-07-2025 Kgwdluusjr-Fjutmqkw-Ogznqolt ol (Breztri Aerosphere) 160-9-4.8 mcg/actuation HFA aerosol inhaler Discontinued 2 NMA INHALATION TWICE A DAY January 01, 2025 12:00am March 07, 2025 4:06pm COPD Start: 01-01-2025 Budesonide-Gly copyr-Formoterol (Breztri Aerosphere) 160-9-4.8 [...] 2025 12:00am COPD Start: 09-19-2023 End: 12-06-2023 Start: 09-19-2023 End: 12-06-2023 Jhswoupjrh-Czfgjudd-Kzminjcw ol (Breztri Aerosphere) 160-9-4.8 mcg/actuation HFA aerosol [...] TWICE A DAY September 19, 2023 12:00am 168 hr buprenorphine 0.01 mg /hr transdermal system (5 sources) Partial Opioid Agonist Start: 02-21-2025 End: 03-07-2025 Start: 02-19-2025 End: 02-19-2025 Smguqypniwe-Aelowqbkr-Kubide er (20 sources) Anticholinergic, Corticosteroid, beta2-Adrenergic Agonist Start: 09-08-2021 Niznkcreavn-Wnvajeryt-Nxpyhi er (Trelegy Ellipta) 100-62.5-25 mcg blister with device Active 1 INH INHALATION DAILY September 08, 2021 10:09am Start: 09-08-2021 End: 09-19-2023 Start: 09-08-2021 End: 09-19-2023 Ayhjxuihxfl-Jnfetwgfl-Votnqf er (Trelegy Ellipta) 100-62.5-25 mcg blister with device Discontinued 1 NMA INHALATION DAILY September 08, 2021 12:00am September 19, 2023 12:07pm Start: 09-08-2021 End: 09-19-2023 Pofvzoxtlnr-Eogcvdpan-Pulawk er (Trelegy Ellipta) 100-62.5-25 mcg blister with device Discontinued 1 INH INHALATION DAILY September 08, 2021 12:00am September 19, 2023 12:07pm Start: 09-08-2021 Fluticasone-Um eclidin-Vilanter (Trelegy Ellipta) 100-62.5-25 mcg blister with device Active 1 INH INHALATION DAILY September 07, 2021 11:00pm Start: 09-08-2021 Fluticasone-Um eclidin-Vilanter (Trelegy Ellipta) 100-62.5-25 mcg blister with device Active 1 INH INHALATION DAILY September 08, 2021 12:00am Food Supplemt, Lactose-Reduc ed (Ensure Plus High Protein) 0.08 gram-1.5 kcal/mL Liquid (1 source) Start: 03-07-2025 levoFLOXacin 250 mg oral tab let (5 sources) Quinolone Antimicrobial Start: 03-07-2025 Start: 03-07-2025 take 1 tablet by marielle once daily Start: 03-31-2022 take 500 mg by mouth twice daily Levofloxacin Active 500 MG PO TWICE A DAY March 31, 2022 1:00am naproxen 500 mg oral tablet (3 sources) Nonsteroidal Anti-inflammatory Drug Start: 03-31-2022 take 500 mg by mouth twice daily Naproxen Active 500 MG PO TWICE A DAY March 31, 2022 1:00am ondansetron 4 mg disintegrating oral tablet (20 sources) Serotonin-3 Receptor Antagonist Start: 09-08-2021 take 4 mg by mouth every eight hours Ondansetron Active 4 MG PO Q8H September 08, 2021 1:12pm Start: 10-07-2015 End: 12-29-2015 24 hr oxybutynin chloride 10 mg extended release oral tablet (15 sources) Cholinergic Muscarinic Antagonist Start: 09-19-2023 oxyCODONE hydrochloride 10 m g oral tablet (20 sources) Opioid Agonist Start: 03-08-2025 Start: 03-08-2025 take 1 tablet by mouth every f our hours as needed for pain Start: 03-07-2025 Start: 03-07-2025 take 2 tablets by mouth every four hours as needed for pain Start: 11-03-2022 End: 06-26-2024 pentoxifylline 400 mg extended release oral tablet (3 sources) Blood Viscosity Cementer Hand Start: 03-31-2022 take 400 mg by mouth once daily at mealtime Pentoxifylline Active 400 MG PO DAILY March 31, 2022 1:00am must administer with a meal/food polyethylene glycol 3350 32708 mg powder for oral solution (2 sources) Osmotic Laxative Start: 03-07-2025 Start: 03-07-2025 (4 sources) Start: 03-07-2025 Start: 02-21-2025 End: 03-04-2025 Start: 01-18-2025 End: 02-19-2025 Start: 09-11-2020 End: 05-26-2021 Completed/Discontinued Medications Medication Drug Class(es) Dates Sig (Normalized) Sig (Original) acetaminophen 325 mg / oxyCODONE hydrochloride 5 mg oral tablet (20 sources) Opioid Agonist Start: 11-02-2024 End: 02-19-2025 Start: 11-02-2024 End: 02-19-2025 Oxycodone-Acetaminophen 5-32 5 mg tablet Discontinued 1 {tbl} PO 3 TIMES DAILY NEEDED as needed for pain November 02, 2024 12:00am February 19, 2025 9:49am Start: 07-21-2023 End: 09-19-2023 Start: 07-21-2023 End: 09-19-2023 Oxycodone-Acetaminophen 5-32 5 mg tablet Discontinued 1 {tbl} PO EVERY 6 HOURS NEEDED as needed for Pain 12 3 0 July 21, 2023 September 19, 2023 12:07pm Acute cervical myofascial strain Acute thoracic myofascial strain Strain of muscle, fascia and tendon at neck level, initial encounter Strain of muscle and tendon of unspecified wall of thorax, initial encounter Start: 07-21-2023 End: 09-19-2023 take 1 tablet by mouth every six hours as needed Oxycodone-Acetaminophen Discontinued 1 TABLET PO EVERY 6 HOURS NEEDED 12 3 July 21, 2023 September 19, 2023 12:07pm Start: 09-18-2020 take 1 tablet by marielle th every eight hours Oxycodone-Acetaminophen (Percocet) 5-325 mg tablet Active 1 - 2 TABLET PO Q8H 14 4 September 18, 2020 1:58pm AMITRIPT 5% LIDO 5% KETAMINE 10% (4 sources) Start: 01-18-2025 End: 02-19-2025 AMITRIPT 5% LIDO 5% KETAMINE 10% Discontinued TOPICAL .1-3 TIMES DAILY as needed January 18, 2025 12:00am February 19, 2025 9:44am APPLY TO GENITAL AREA Start: 01-18-2025 Start: 01-18-2025 AMITRIPT 5% LI DO 5% KETAMINE 10% Active TOPICAL .1-3 TIMES DAILY as needed January 18, 2025 12:00am APPLY TO GENITAL AREA Complies with drug therapy amitriptyline hydrochloride 10 mg oral tablet (2 sources) Tricyclic Antidepressant Start: 02-21-2025 End: 03-04-2025 atorvastatin 10 mg oral tabl et (10 sources) HMG-CoA Reductase Inhibitor Start: 02-12-2025 End: 02-19-2025 Start: 02-12-2025 take 1 tablet by mouth once da elaine Start: 02-12-2025 End: 02-12-2025 120 actuat budesonide 0.16 mg/actuat / formoterol fumarate 0.0045 mg/actuat metered dose inhaler (8 sources) Corticosteroid, beta2-Adrenergic Agonist Start: 09-16-2016 SYMBICORT 160-4.5 MCG/ACT AERO Two inh twice daily BUDESONIDE-FORMOTEROL FUMARATE [id number] Melia Grimes Start: 09-16-2016 SYMBICORT 160- 4.5 MCG/ACT AERO Two inh twice daily BUDESONIDE-FORMOTEROL FUMARATE [id number] Melia Grimes Start: 06-02-2016 take 1 puff(s) by in halation twice daily Budesonide-Formoterol (Symbicort) 1 INHALER inhaler Active 2 PUFF INHALATION TWICE A DAY June 02, 2016 3:07pm cephalexin 500 mg oral capsu le (20 sources) Cephalosporin Antibacterial Start: 02-21-2025 End: 03-04-2025 Start: 01-09-2025 End: 01-18-2025 Start: 01-09-2025 End: 01-18-2025 take 1 capsule by mouth three times daily Cephalexin 500 mg capsule Discontinued 500 mg PO THREE TIMES A DAY 30 January 09, 2025 12:00am January 18, 2025 3:58pm Start: 11-03-2022 End: 09-19-2023 Start: 11-03-2022 End: 09-19-2023 take 1 capsule by mouth twice daily Cephalexin 500 mg capsule Discontinued 500 mg PO TWICE A DAY 10 November 03, 2022 12:00am September 19, 2023 12:06pm Start: 10-07-2015 End: 12-29-2015 Start: 10-07-2015 End: 12-29-2015 take 1 capsule by mouth every six hours Cephalexin 500 MG capsule Discontinued 500 mg PO EVERY 6 HOURS October 07, 2015 12:00am December 29, 2015 1:31pm colchicine 0.6 mg oral capsu le (20 sources) Start: 09-11-2020 End: 05-26-2021 DULoxetine 30 mg delayed release oral capsule (5 sources) Serotonin and Norepinephrine Reuptake Inhibitor Start: 03-04-2025 End: 03-04-2025 Start: 02-19-2025 End: 02-19-2025 ferrous sulfate 325 mg oral tablet (5 sources) Start: 01-18-2025 End: 02-19-2025 finasteride 5 mg oral tablet (20 sources) 5-alpha Reductase Inhibitor Start: 09-08-2021 End: 12-06-2023 gabapentin 100 mg oral capsu le (20 sources) Anti-epileptic Agent Start: 10-27-2022 End: 12-06-2023 Start: 10-27-2022 End: 12-06-2023 take 1 capsule by mouth at bedtime Gabapentin 100 mg capsule Discontinued 100 mg PO AT BEDTIME October 27, 2022 12:00am December 06, 2023 10:33am hypromellose 17 mg/ml ophtha lmic solution (14 sources) Start: 09-19-2023 End: 03-04-2025 Methylprednisolone (20 sources) Corticosteroid Start: 07-02-2022 End: 07-08-2022 Start: 07-02-2022 End: 07-08-2022 take 1 tablet [...] 12:00am May 26, 2021 11:37am Multivitamin Tablet (11 sources) Start: 09-11-2020 End: 05-26-2021 Multivitamin Tablet Discontinued 1 {tbl} PO DAILY September 11, 2020 12:00am May 26, 2021 11:37am nortriptyline 10 mg oral capsule (6 sources) Tricyclic Antidepressant Start: 11-15-2016 take 1 tablet by mouth once daily NORTRIPTYLINE HCL 10 MG CAPS One tablet by mouth daily NORTRIPTYLINE HCL [id number] Melia Fuentes Michelle LOOMIS nystatin 100 unt/mg topical powder (20 sources) Polyene Antifungal Start: 01-18-2025 End: 03-04-2025 Nystatin 100,000 unit/gram powder Discontinued 1 NMA TOPICAL TWICE A DAY January 18, 2025 3:52pm March 04, 2025 4:29pm yeast Start: 07-13-2024 End: 03-04-2025 Start: 07-13-2024 End: 01-18-2025 Nystatin 100,000 unit/gram p owder Discontinued 1 NMA TOPICAL daily as needed for yeast July 13, 2024 1:00am January 18, 2025 3:58pm Start: 09-19-2023 End: 07-13-2024 Start: 09-19-2023 End: 07-13-2024 Nystatin 100,000 unit/gram c ream Discontinued 1 NMA TOPICAL 4 TIMES DAILY as needed for skin irritation September 19, 2023 12:00am July 13, 2024 2:03pm Start: 09-19-2023 Nystatin Activ e 1 APPLIC TOPICAL 4 TIMES DAILY September 19, 2023 12:00am omeprazole 20 mg delayed rel ease oral capsule (20 sources) Proton Pump Inhibitor Start: 09-11-2020 End: 05-26-2021 Start: 09-11-2020 End: 05-26-2021 Omeprazole 20 mg Capsule,Del ayed Release(Dr/Ec) Discontinued 20 mg PO NEEDED as needed for Heartburn September 11, 2020 12:00am May 26, 2021 11:37am Start: 11-01-2018 omeprazole ([place] ILOSEC) 40 mg capsule 40 mg once daily. 11/01/2018 Active PARoxetine hydrochloride 10 mg oral tablet (5 sources) Serotonin Reuptake Inhibitor Start: 01-18-2025 End: 02-12-2025 predniSONE 20 mg oral tablet (3 sources) Start: 02-19-2025 End: 03-04-2025 pregabalin 50 mg oral capsul e (5 sources) Start: 01-18-2025 End: 02-19-2025 simethicone 80 mg chewable t ablet (17 sources) Start: 01-18-2025 End: 02-12-2025 Start: 12-06-2023 End: 06-26-2024 tamsulosin hydrochloride 0.4 mg oral capsule (20 sources) alpha-Adrenergic David Start: 09-08-2021 End: 09-19-2023 Start: 11-15-2016 take 1 tablet by marielle th once daily FLOMAX 0.4 MG CAPS One tablet by mouth daily TAMSULOSIN HCL [id number] Melia Fuentes Martinez FIRER HELPER traMADol hydrochloride 50 mg oral tablet (20 sources) Opioid Agonist Start: 07-02-2022 End: 09-19-2023 Start: 09-08-2021 take 50 mg by mouth twice daily as needed Tramadol Active 50 MG PO TWICE DAILY NEEDED September 08, 2021 10:09am triamcinolone acetonide 1 mg /ml topical cream (6 sources) Corticosteroid Start: 01-18-2025 End: 03-04-2025 Start: 09-19-2024 triamcinolone acetonide (KENALOG) 0.1 % cream as needed. 09/19/2024 Active Problems Active Problems Problem Classification Problem Date [...] unspecified severity] Chronic Coagulation and hemorrhagic disorders (11 sources) Thrombocytopenic disorder; Translations: [Thrombocytopenia, unspecified] Onset: 5 02-12-2025 Chronic Coronary atherosclerosis and other heart disease (11 sources) Coronary arteriosclerosis; Translations: [Atherosclerotic heart disease of alutiiq coronary artery without angina pectoris] Onset: 5 02-12-2025 Chronic Deficiency and other anemia (14 sources) Chronic anemia; Translations: [Anemia, unspecified] 09-19-2023 Episodic Disorders of lipid metabolism (11 sources) Dyslipidemia; Translations: [Hyperlipidemia, unspecified] Onset: 5 02-12-2025 Chronic Diverticulosis and diverticulitis (20 sources) Diverticulitis; Translations: [Diverticulitis of intestine, part unspecified, without perforation or abscess without bleeding] 09-16-2021 Chronic E Codes: Fall (12 sources) Fall; Translations: [Unspecified fall, initial encounter] 06-03-2024 Episodic Essential hypertension (20 sources) Hypertensive disorder; Translations: [Essential (primary) hypertension] Onset: Chronic Gastrointestinal hemorrhage (20 sources) Gastrointestinal hemorrhage; Translations: [Gastrointestinal hemorrhage, unspecified] 09-19-2023 Episodic Genitourinary symptoms and ill-defined conditions (1 source) Unspecified symptoms and signs involving the genitourinary system; Translations: [Unspecified symptoms and signs involving the genitourinary system] Onset: Episodic Gout and other crystal arthropathies (20 [...] 5 12-14-2024 Episodic Open wounds of extremities (10 sources) Laceration without foreign body of right upper arm, initial encounter; Translations: [Skin tear of right upper extremity] 01-09-2025 Episodic Osteoarthritis (20 sources) Arthritis of hand; Translations: [Primary osteoarthritis, right hand] 10-27-2022 Chronic Other aftercare (12 sources) Long-term current use of anticoagulant; Translations: [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 of 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] 11-02-2024 Episodic Other circulatory disease (14 sources) History of insertion of inferior vena caval filter; Translations: [Presence of other vascular implants and grafts] 11-21-2024 Chronic Other connective tissue disease (20 sources) Pain in calf; Translations: [Pain in left lower leg] 04-27-2020 Episodic Other connective tissue disease (20 sources) Swelling of lower limb; Translations: [Other specified soft tissue disorders] 07-12-2017 Episodic Other connective tissue disease (5 sources) Pain of left calf; Translations: [Pain in left lower leg] 04-27-2020 Episodic Other connective tissue disease (4 sources) H/O: osteoarthritis; Translations: [Personal history of other diseases of the musculoskeletal system and connective tissue] 03-04-2025 Episodic Other diseases of veins and lymphatics [...] unspecified] 04-17-2022 Episodic Other lower respiratory disease (3 sources) Dyspnea; Translations: [Dyspnea, unspecified] 02-19-2025 Episodic Other lower respiratory disease (2 sources) Shortness of breath; Translations: [Shortness of breath] Onset: 5 Episodic Other nervous system disorders (4 sources) Chronic pain; Translations: [Other chronic pain] 03-04-2025 Chronic Other nervous system disorders (1 source) Other chronic pain; Translations: [Other chronic pain] Onset: Chronic Other nervous system disorders (15 sources) Paresthesia; Translations: [Paresthesia of skin] 07-13-2024 Episodic Comment on above: 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 Nonresponsive to treatment for skin disease. No STD noted. Other nervous system disorders (1 source) Disorder of perineum; Translations: [Anesthesia of skin] 12-14-2024 Episodic Other nervous system disorders (1 source) Anesthesia of skin; Translations: [Perineal numbness] Onset: Episodic Other nutritional; endocrine; and metabolic disorders (2 sources) Abnormal weight loss; Translations: [Abnormal weight loss] Onset: 5 Episodic Other screening for suspected conditions (not mental disorders or infectious disease) (13 sources) Electrocardiogram abnormal; Translations: [Abnormal electrocardiogram [ECG] [...] limb edema; Translations: [Edema, unspecified] 10-27-2022 Episodic Residual codes; unclassified (4 sources) H/O Spinal surgery; Translations: [Other specified postprocedural states] 03-04-2025 Episodic Screening or history of mental health and substance abuse (6 sources) Tobacco dependence syndrome; Translations: [Nicotine dependence, unspecified, uncomplicated] Onset: 7 11-15-2016 Chronic Skin and subcutaneous tissue infections (20 sources) Cellulitis of hand; Translations: [Cellulitis of right upper limb] 08-17-2020 Episodic Spondylosis; intervertebral disc disorders; other back problems (17 sources) Arthritis of spine; 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 Prior attempts to ablate pain with sympathectomies noted. Spondylosis; intervertebral disc disorders; other back problems (9 sources) Backache; Translations: [Dorsalgia, unspecified] Onset: 5 03-04-2025 Episodic Spondylosis; intervertebral disc disorders; other back problems (3 sources) Spondylosis; intervertebral disc disorders; other back problems Sprains and strains (20 sources) Strain of neck muscle; Translations: [Strain of muscle, fascia and tendon at neck level, initial encounter] 07-21-2023 Episodic Substance-related disorders (11 sources) Nicotine dependence; Translations: [Nicotine dependence, unspecified, uncomplicated] Onset: 5 02-12-2025 Chronic Unclassified (1 source) No current problems or disability 11-12-2016 Unclassified (20 sources) 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) History of superficial thrombophlebitis Unclassified (8 sources) In 3 weeks Urinary tract infections (2 sources) Hemorrhagic cystitis; Translations: [Cystitis, unspecified with hematuria] 03-01-2025 Episodic Varicose veins of lower extremity (20 sources) 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; Translations: [Varicose veins of unspecified lower extremity with both ulcer of unspecified site and inflammation] Episodic Past or Other Problems Problem Classification Problem Date Documented Da te Episodic/Chronic Deficiency and other anemia (3 sources) Anemia, unspecified; Translations: [Anemia, unspecified] Onset: 11-14-2024 09-19-2023 Episodic Other connective tissue disease (9 sources) Other specified soft tissue disorders; Translations: [Swelling of limb] Onset: 12-25-2024 Episodic Other connective tissue disease (1 source) [...] Name Value Interpretation Reference Range Facility Absolute lymphocyte countOrd ered By: Wilfredo Razo on 03-13-2025 Lymphocytes Auto (Unsp spec) [#/Vol] 1.06 10*3/uL 0.83-4.51 [facility] Anion gap in Serum or Plasma Ordered By: Wilfredo Razo on 03-13-2025 Anion gap [Moles/Vol] 8 mmol/L 5-15 [facility] Automated lymphocyte count a s percentage of total leukocytesOrdered By: Wilfredo Razo on 03-13-2025 Lymphocytes/100 WBC Auto (Unsp spec) 26.5 % - [facility] BUN/creatinine ratioOrdered By: Wilfredo Razo on 03-13-2025 Urea nitrogen/Creatinine [Mass ratio] 20.6 mg/mg High 10- [facility] Basophil percentageOrdered B y: Wilfredo Razo on 03-13-2025 Basophils/100 WBC (Bld) 0.5 % 0-1 [facility] Calculated very low density lipoprotein (VLDL) cholesterol measurementOrdered By: Wilfredo Razo on 03-13-2025 Calculated very low density lipoprotein (VLDL) cholesterol measurement 24 mg/dL 5-40 [facility] Carbon dioxide, total [Moles /volume] in Central venous bloodOrdered By: Wilfredo Razo on 03-13-2025 CO2 [Moles/Vol] 26.7 mmol/L 21.0-32.0 [facility] Chloride assayOrdered By: Samuel Razo on 03-13-2025 Chloride [Moles/Vol] 98 mmol/L 98-108 [facility] Eosinophil percentageOrdered By: Wilfredo Razo on 03-13-2025 Eosinophils/100 WBC (Bld) 3.5 % 0-5 [facility] Erythrocyte distribution wid th ratioOrdered By: Wilfredo Razo on 03-13-2025 Erythrocyte distribution width (RBC) [Ratio] 18.0 % High 11.6-14.6 [facility] Erythrocyte distribution wid th standard deviationOrdered By: Wilfredo Razo on 03-13-2025 Erythrocyte distribution width (RBC) [Ratio] 65.0 fl High 35.1-43.9 [facility] Glomerular filtration rate ( GFR) estimation/1.73 sq m using serum, plasma, or whole bOrdered By: Wilfredo Razo on 03-13-2025 GFR/1.73 sq M.predicted among non-blacks MDRD (S/P/Bld) [Vol rate/Area] 64 mL/min/{1.73_m2} >60 [facility] Hematocrit Auto (Bld) [Volum e fraction]Ordered By: Wilfredo Razo on 03-13-2025 Hematocrit (Bld) [Volume fraction] 26.9 % Low 40-54 [facility] Hemoglobin measurementOrdere d By: Wilfredo Razo on 03-13-2025 Hemoglobin (Bld) [Mass/Vol] 8.8 g/dL Low 13.0-16.5 [facility] Immature granulocytes/100 WB C Auto (Bld)Ordered By: Wilfredo Razo on 03-13-2025 Immature granulocytes/100 WBC (Bld) 0.500 % 0.0-0.9 [facility] LDL calc ser/plasOrdered By: Wilfredo Razo on 03-13-2025 Cholesterol in LDL [Mass/Vol] 60 mg/dL [facility] MCV (mean corpuscular volume ) determinationOrdered By: Wilfredo Razo on 03-13-2025 MCV (RBC) [Entitic vol] 98.5 fL High 80-94 [facility] Mean corpuscular hemoglobin (MCH) determinationOrdered By: Wilfredo Beaumaycol on 03-13-2025 MCH (RBC) [Entitic mass] 32.2 pg High 27.0-32.0 [facility] Monocyte percentageOrdered B y: Wilfredo Beaubeatrisanamika on 03-13-2025 Monocytes/100 WBC (Bld) 7.8 % 0-10 [facility] Neutrophil percentageOrdered By: Wilfredo Beaubeatrisanamika on 03-13-2025 Neutrophils/100 WBC (Bld) 61.2 % 47-70 [facility] Platelet countOrdered By: Samuel xavier Beaubeatrisanamika on 03-13-2025 Platelets (Bld) [#/Vol] 272 10*3/uL 150-450 [facility] Potassium measurement (mass/ volume)Ordered By: Wilfredo Razo on 03-13-2025 Potassium (Unsp spec) [Mass/Vol] 4.6 mmol/L 3.3-5.1 [facility] RBC Auto (Bld) [#/Vol]Ordere d By: Wilfredo Beaumaycol on 03-13-2025 RBC (Bld) [#/Vol] 2.73 10*6/uL Low 4.6-6.2 [facility] Serum creatinine measurement (mass/volume)Ordered By: Wilfredo Razo on 03-13-2025 Creatinine [Mass/Vol] 1.12 mg/dL 0.70-1.20 [facility] Serum glucose measurement (m ass/volume)Ordered By: Samuelxavier Razo on 03-13-2025 Glucose [Mass/Vol] 100 mg/dL High 70-99 [facility] Serum or plasma calcium marlin urement (mass/volume)Ordered By: Wilfredo Razo on 03-13-2025 Calcium [Mass/Vol] 8.2 mg/dL 7.6-11.0 [facility] Serum or plasma cholesterol in HDL measurement (mass/volume)Ordered By: Alejandrochandapedro Yanezbeatrisanamika on 03-13-2025 Cholesterol in HDL [Mass/Vol] 33 mg/dL Low >40 [facility] Serum or plasma cholesterol measurement (mass/volume)Ordered By: Wilfredo Beaubeatrisanamika on 03-13-2025 Cholesterol [Mass/Vol] 115 mg/dL <201 [facility] Serum or plasma urea nitroge n measurement (mass/volume)Ordered By: Samuelchelesissy Beaubeatrisanamika on 03-13-2025 Urea nitrogen [Mass/Vol] 23 mg/dL High 4-19 [facility] Sodium levelOrdered By: Alejandro sheehan Beaubeatrisanamika on 03-13-2025 Sodium [Moles/Vol] 133 mmol/L 133-145 [facility] White blood cell (WBC) count Ordered By: Samuelchelesissy Beaubeatrisanamika on 03-13-2025 WBC (Bld) [#/Vol] 4.0 10*3/uL Low 4.4-11.0 [facility] Absolute lymphocyte countOrd ered By: Samuelchelechandapedro Yanezbeatrisanamika on 03-08-2025 Lymphocytes Auto (Unsp spec) [#/Vol] 0.69 10*3/uL Low 0.83-4.51 [facility] Absolute neutrophil countOrd ered By: Samuelchelesissy Beaumaycol on 03-08-2025 Neutrophils (Bld) [#/Vol] 4.7 10*3/uL 2.0-7.7 [facility] Anion gap in Serum or Plasma Ordered By: Wilfredo Beaubeatrisanamika on 03-08-2025 Anion gap [Moles/Vol] 5 mmol/L 5-15 [facility] Automated lymphocyte count a s percentage of total leukocytesOrdered By: Samuelchelechandapedro Yanezbeatrisanamika on 03-08-2025 Lymphocytes/100 WBC Auto (Unsp spec) 11.5 % Low 19-41 [facility] BUN/creatinine ratioOrdered By: Samuelchelesissy Beaubeatrisanamika on 03-08-2025 Urea nitrogen/Creatinine [Mass ratio] 25.7 mg/mg High 10-20 [facility] Basophil percentageOrdered B y: Alejandrochandapedro Yanezbeatrisanamika on 03-08-2025 Basophils/100 WBC (Bld) 0.3 % 0-1 [facility] Bilirubin, totalOrdered By: Efxavier Razo on 03-08-2025 Bilirubin [Mass/Vol] 0.44 mg/dL 0.00-1.30 [facility] Blood manual differential co mment interpretation (narrative result)Ordered By: Wilfredo Razo on 03-08-2025 Manual differential comment Zeus (Bld) [Interp] SCANNED [facility] Comment on above: ANISOCYTOSIS Blood polychromasia detectio n by light microscopyOrdered By: Wilfredo Razo on 03-08-2025 Polychromasia LM Ql (Bld) RARE [facility] Carbon dioxide, total [Moles /volume] in Central venous bloodOrdered By: Wilfredo Razo on 03-08-2025 CO2 [Moles/Vol] 30.9 mmol/L 21.0-32.0 [facility] Chloride assayOrdered By: Samuel Razo on 03-08-2025 Chloride [Moles/Vol] 93 mmol/L Low 98-108 [facility] Eosinophil percentageOrdered By: Wilfredo Razo on 03-08-2025 Eosinophils/100 WBC (Bld) 1.3 % 0-5 [facility] Erythrocyte distribution wid th ratioOrdered By: Wilfredo Razo on 03-08-2025 Erythrocyte distribution width (RBC) [Ratio] 18.4 % High 11.6-14.6 [facility] Erythrocyte distribution wid th standard deviationOrdered By: Wilfredo Razo on 03-08-2025 Erythrocyte distribution width (RBC) [Ratio] 67.2 fl High 35.1-43.9 [facility] Glomerular filtration rate ( GFR) estimation/1.73 sq m using serum, plasma, or whole bOrdered By: Wilfredo Razo on 03-08-2025 GFR/1.73 sq M.predicted among non-blacks MDRD (S/P/Bld) [Vol rate/Area] 61 mL/min/{1.73_m2} >60 [facility] Comment on above: mL/min/1.73m2 CKD-EP I Creatinine Equation (2020) Hematocrit Auto (Bld) [Volum e fraction]Ordered By: Wilfredo Razo on 03-08-2025 Hematocrit (Bld) [Volume fraction] 30.2 % Low 40-54 [facility] Hemoglobin measurementOrdere d By: Wilfredo Razo on 03-08-2025 Hemoglobin (Bld) [Mass/Vol] 10.0 g/dL Low 13.0-16.5 [facility] Immature granulocytes/100 WB C Auto (Bld)Ordered By: Wilfredo Razo on 03-08-2025 Immature granulocytes/100 WBC (Bld) 1.000 % High 0.0-0.9 [facility] Comment on above: IG% - Immature Granu locytes (promyelocytes, myelocytes and metamyelocytes) > 1% indicates that a LEFT SHIFT is Present. Laboratory - Chemistry and C hemistry - challengeOrdered By: Wilfredo Razo on 03-08-2025 AST [Catalytic activity/Vol] 26 U/L <38 [facility] Laboratory - Hematology and Cell countsOrdered By: Wilfredo Razo on 03-08-2025 Anisocytosis Ql (Bld) 1+ [facility] MCV (mean corpuscular volume ) determinationOrdered By: Wilfredo Razo on 03-08-2025 MCV (RBC) [Entitic vol] 100.0 fL High 80-94 [facility] Mean corpuscular hemoglobin (MCH) determinationOrdered By: Wilfredo Razo on 03-08-2025 MCH (RBC) [Entitic mass] 33.1 pg High 27.0-32.0 [facility] Mean corpuscular hemoglobin concentration (MCHC) determinationOrdered By: Wilfredo Razo on 03-08-2025 MCHC (RBC) [Mass/Vol] 33.1 g/dL 32-36 [facility] Mean platelet volume determi nationOrdered By: Wilfredo Razo on 03-08-2025 Platelet mean volume (Bld) [Entitic vol] 10.4 fL 6.2-12.0 [facility] Monocyte percentageOrdered B y: Wilfredo Razo on 03-08-2025 Monocytes/100 WBC (Bld) 6.7 % 0-10 [facility] Neutrophil percentageOrdered By: Wilfredo Razo on 03-08-2025 Neutrophils/100 WBC (Bld) 79.2 % High 47-70 [facility] No Panel InformationOrdered By: Wilfredo Razo on 03-08-2025 1+ [facility] 26 U/L <38 [facility] Nucleated red blood cell per centageOrdered By: Wilfredo Razo on 03-08-2025 Nucleated RBC/100 WBC (Bld) [Ratio] 0 % 0-5 [facility] Platelet countOrdered By: Samuel Razo on 03-08-2025 Platelets (Bld) [#/Vol] 228 10*3/uL 150-450 [facility] Platelet morphologyOrdered B y: Wilfredo Razo on 03-08-2025 Platelet morphology finding Nom (Bld) LARGE [facility] Potassium measurement (mass/ volume)Ordered By: Wilfredo Razo on 03-08-2025 Potassium (Unsp spec) [Mass/Vol] 4.1 mmol/L 3.3-5.1 [facility] RBC Auto (Bld) [#/Vol]Ordere d By: Wilfredo Razo on 03-08-2025 RBC (Bld) [#/Vol] 3.02 10*6/uL Low 4.6-6.2 [facility] Serum creatinine measurement (mass/volume)Ordered By: Wilfredo Razo on 03-08-2025 Creatinine [Mass/Vol] 1.16 mg/dL 0.70-1.20 [facility] Serum globulin measurementOr dered By: Wilfredo Razo on 03-08-2025 Globulin (S) [Mass/Vol] 2.1 g/dL Low 2.2-4.2 [facility] Serum glucose measurement (m ass/volume)Ordered By: Wilfredo Razo on 03-08-2025 Glucose [Mass/Vol] 89 mg/dL 70-99 [facility] Serum or plasma alanine tavarez otransferase (ALT) measurementOrdered By: Wilfredo Razo on 03-08-2025 ALT [Catalytic activity/Vol] 22 U/L <47 [facility] Serum or plasma albumin marlin urement (mass/volume)Ordered By: Wilfredo Beaubeatrisanamika on 03-08-2025 Albumin [Mass/Vol] 2.7 g/dL Low 3.4-4.8 [facility] Serum or plasma albumin/glob ulin mass ratioOrdered By: Wilfredo Razo on 03-08-2025 Albumin/Globulin [Mass ratio] 1.3 {ratio} 0.9-2.4 [facility] Serum or plasma alkaline erin sphatase measurementOrdered By: Wilfredo Beaubeatrisanamika on 03-08-2025 ALP [Catalytic activity/Vol] 63 U/L 40-129 [facility] Serum or plasma calcium marlin urement (mass/volume)Ordered By: Wilfredo Beaubeatrisanamika on 03-08-2025 Calcium [Mass/Vol] 6.7 mg/dL Low 7.6-11.0 [facility] Serum or plasma urea nitroge n measurement (mass/volume)Ordered By: Wilfredo Beaumaycol on 03-08-2025 Urea nitrogen [Mass/Vol] 30 mg/dL High 4-19 [facility] Sodium levelOrdered By: Alejandro Razo on 03-08-2025 Sodium [Moles/Vol] 129 mmol/L Low 133-145 [facility] Total proteinOrdered By: Liban antony Beaumaycol on 03-08-2025 Protein [Mass/Vol] 4.8 g/dL Low 5.9-8.4 [facility] Urine Cultureon 03-08-2025 URC Normal [facility] Comment on above: Performed By: #### M 100.1308 ####[facility] [address] [place], [address] White blood cell (WBC) count Ordered By: Wilfredo Razo on 03-08-2025 WBC (Bld) [#/Vol] 6.0 10*3/uL 4.4-11.0 [facility] Absolute lymphocyte countOrd ered By: Rylie Arreaga on 03-05-2025 Lymphocytes Auto (Unsp spec) [#/Vol] 0.37 10*3/uL Low 0.83-4.51 [facility] Absolute neutrophil countOrd ered By: Rylie Arreaga on 03-05-2025 Neutrophils (Bld) [#/Vol] 5.1 10*3/uL 2.0-7.7 [facility] Anion gap in Serum or Plasma Ordered By: Rylie Arreaga on 03-05-2025 Anion gap [Moles/Vol] 9 mmol/L 5-15 [facility] Automated lymphocyte count a s percentage of total leukocytesOrdered By: Rylie Arreaga on 03-05-2025 Lymphocytes/100 WBC Auto (Unsp spec) 6.2 % Low - [facility] BUN/creatinine ratioOrdered By: Rylie Arreaga on 03-05-2025 Urea nitrogen/Creatinine [Mass ratio] 27.2 mg/mg High 03-04 [facility] Basic Metabolic Profile (BMP )on 03-05-2025 BUN/CRE 27.2 RATIO High 03-04 [facility] Comment on above: Performed By: #### L 500.2500, L100.0100 ####[facility] [address] [place], [address] Calcium [Mass/Vol] 7.9 mg/dL Normal 7.6-11.0 [facility] Comment on above: Performed By: #### L 500.2500, L100.0100 ####[facility] [address] [place], [address] Chloride [Moles/Vol] 101 mmol/L Normal 98-108 [facility] Comment on above: Performed By: #### L 500.2500, L100.0100 ####[facility] [address] [place], [address] CO2 [Moles/Vol] 26.4 mmol/L Normal 21.0-32.0 [facility] Comment on above: Performed By: #### L 500.2500, L100.0100 ####[facility] [address] [place], [address] Creatinine [Mass/Vol] 1.23 mg/dL High 0.70-1.20 [facility] Comment on above: Performed By: #### L 500.2500, L100.0100 ####[facility] [address] [place], [address] ECRCL 36.57 ml/min Low 50-250 [facility] Comment on above: Performed By: #### L 500.2500, L100.0100 ####[facility] [address] [place], [address] GAP 9 Normal 5-15 [facility] Comment on above: Performed By: #### L 500.2500, L100.0100 ####[facility] [address] [place], [address] GFR/1.73 sq M.predicted among non-blacks MDRD (S/P/Bld) [Vol rate/Area] 57 mL/min/{1.73_m2} Low >60 [facility] Comment on above: Result Comment: mL/m in/1.73m2 CKD-EPI Creatinine Equation (2020) Performed By: #### L 500.2500, L100.0100 ####[facility] [address] [place], [address] Glucose [Mass/Vol] 74 mg/dL Normal 70-99 [facility] Comment on above: Performed By: #### L 500.2500, L100.0100 ####[facility] [address] [place], [address] Potassium [Moles/Vol] 4.1 mmol/L Normal 3.3-5.1 [facility] Comment on above: Performed By: #### L 500.2500, L100.0100 ####[facility] [address] [place], [address] Sodium [Moles/Vol] 136 mmol/L Normal 133-145 [facility] Comment on above: Performed By: #### L 500.2500, L100.0100 ####[facility] [address] [place], [address] Urea nitrogen [Mass/Vol] 33 mg/dL High 4-19 [facility] Comment on above: Performed By: #### L 500.2500, L100.0100 ####[facility] [address] [place], [address] Basophil percentageOrdered B y: Rylie Arreaga on 03-05-2025 Basophils/100 WBC (Bld) 0.2 % 0-1 [facility] CBC W/Diff, Automatedon 02-14 Absolute Lymph 0.37 X10 3/uL Low 0.83-4.51 [facility] Comment on above: Performed By: #### L 500.2500, L100.0100 ####[facility] [address] [place], [address] Absolute Neut 5.1 X10 3/uL Normal 2.0-7.7 [facility] Comment on above: Performed By: #### L 500.2500, L100.0100 ####[facility] [address] [place], [address] Basophils/100 WBC (Bld) 0.2 % Normal 0-1 [facility] Comment on above: Performed By: #### L 500.2500, L100.0100 ####[facility] [address] [place], [address] Eosinophils/100 WBC (Bld) 1.9 % Normal 0-5 [facility] Comment on above: Performed By: #### L 500.2500, L100.0100 ####[facility] [address] [place], [address] Erythrocyte distribution width (RBC) [Ratio] 19.1 % High 11.6-14.6 [facility] Comment on above: Performed By: #### L 500.2500, L100.0100 ####[facility] [address] [place], [address] Hematocrit (Bld) [Volume fraction] 31.0 % Low 40-54 [facility] Comment on above: Performed By: #### L 500.2500, L100.0100 ####[facility] [address] [place], [address] Hemoglobin (Bld) [Mass/Vol] 10.2 g/dL Low 13.0-16.5 [facility] Comment on above: Performed By: #### L 500.2500, L100.0100 ####[facility] [address] [place], [address] IG% 0.700 Normal 0.0-0.9 [facility] Comment on above: Result Comment: IG% - Immature Granulocytes (promyelocytes, myelocytes andmetamyelocytes) > 1% indicates that a LEFT SHIFT is Present. Performed By: #### L 500.2500, L100.0100 ####[facility] [address] [place], [address] Lymphocytes/100 WBC (Bld) 6.2 % Low 19-41 [facility] Comment on above: Performed By: #### L 500.2500, L100.0100 ####[facility] [address] [place], [address] MCH (RBC) [Entitic mass] 33.3 pg High 27.0-32.0 [facility] Comment on above: Performed By: #### L 500.2500, L100.0100 ####[facility] [address] [place], [address] MCHC (RBC) [Mass/Vol] 32.9 g/dL Normal 32-36 [facility] Comment on above: Performed By: #### L 500.2500, L100.0100 ####[facility] [address] [place], [address] MCV (RBC) [Entitic vol] 101.3 fL High 80-94 [facility] Comment on above: Performed By: #### L 500.2500, L100.0100 ####[facility] [address] [place], [address] Monocytes/100 WBC (Bld) 5.1 % Normal 0-10 [facility] Comment on above: Performed By: #### L 500.2500, L100.0100 ####[facility] [address] [place], [address] Neutrophils/100 WBC (Bld) 85.9 % High 47-70 [facility] Comment on above: Performed By: #### L 500.2500, L100.0100 ####[facility] [address] [place], [address] Nucleated RBC (Bld) [#/Vol] 0 10*3/uL Normal 0-5 [facility] Comment on above: Performed By: #### L 500.2500, L100.0100 ####[facility] [address] [place], [address] Platelet mean volume (Bld) [Entitic vol] 10.4 fL Normal 6.2-12.0 [facility] Comment on above: Performed By: #### L 500.2500, L100.0100 ####[facility] [address] [place], [address] Platelets (Bld) [#/Vol] 228 10*3/uL Normal 150-450 [facility] Comment on above: Performed By: #### L 500.2500, L100.0100 ####[facility] [address] [place], [address] RBC (Bld) [#/Vol] 3.06 10*6/uL Low 4.6-6.2 [facility] Comment on above: Performed By: #### L 500.2500, L100.0100 ####[facility] [address] [place], [address] RDW SD 71.3 fl High 35.1-43.9 [facility] Comment on above: Performed By: #### L 500.2500, L100.0100 ####[facility] [address] [place], [address] WBC (Bld) [#/Vol] 5.9 10*3/uL Normal 4.4-11.0 [facility] Comment on above: Performed By: #### L 500.2500, L100.0100 ####[facility] [address] [place], [address] Carbon dioxide, total [Moles /volume] in Central venous bloodOrdered By: Rylie Arreaga on 03-05-2025 CO2 [Moles/Vol] 26.4 mmol/L 21.0-32.0 [facility] Chloride assayOrdered By: Aaron Arreaga on 03-05-2025 Chloride [Moles/Vol] 101 mmol/L 98-108 [facility] Eosinophil percentageOrdered By: Rylie Arreaga on 03-05-2025 Eosinophils/100 WBC (Bld) 1.9 % 0-5 [facility] Erythrocyte distribution wid th ratioOrdered By: Rylie Arreaga on 03-05-2025 Erythrocyte distribution width (RBC) [Ratio] 19.1 % High 11.6-14.6 [facility] Erythrocyte distribution wid th standard deviationOrdered By: Rylie Arreaga on 03-05-2025 Erythrocyte distribution width (RBC) [Ratio] 71.3 fl High 35.1-43.9 [facility] Glomerular filtration rate ( GFR) estimation/1.73 sq m using serum, plasma, or whole bOrdered By: Rylie Arreaga on 03-05-2025 GFR/1.73 sq M.predicted among non-blacks MDRD (S/P/Bld) [Vol rate/Area] 57 mL/min/{1.73_m2} Low >60 [facility] Comment on above: mL/min/1.73m2 CKD-EP I Creatinine Equation (2020) Hematocrit Auto (Bld) [Volum e fraction]Ordered By: Rylie Arreaga on 03-05-2025 Hematocrit (Bld) [Volume fraction] 31.0 % Low 40-54 [facility] Hemoglobin measurementOrdere d By: Rylie Arreaga on 03-05-2025 Hemoglobin (Bld) [Mass/Vol] 10.2 g/dL Low 13.0-16.5 [facility] Immature granulocytes/100 WB C Auto (Bld)Ordered By: Rylie Arreaga on 03-05-2025 Immature granulocytes/100 WBC (Bld) 0.700 % 0.0-0.9 [facility] Comment on above: IG% - Immature Granu locytes (promyelocytes, myelocytes and metamyelocytes) > 1% indicates that a LEFT SHIFT is Present. MCV (mean corpuscular volume ) determinationOrdered By: Rylie Arreaga on 03-05-2025 MCV (RBC) [Entitic vol] 101.3 fL High 80-94 [facility] Mean corpuscular hemoglobin (MCH) determinationOrdered By: Rylie Arreaga on 03-05-2025 MCH (RBC) [Entitic mass] 33.3 pg High 27.0-32.0 [facility] Mean corpuscular hemoglobin concentration (MCHC) determinationOrdered By: Rylie Arreaga on 03-05-2025 MCHC (RBC) [Mass/Vol] 32.9 g/dL 32-36 [facility] Mean platelet volume determi nationOrdered By: Rylie Arreaga on 03-05-2025 Platelet mean volume (Bld) [Entitic vol] 10.4 fL 6.2-12.0 [facility] Monocyte percentageOrdered B y: Rylie Arreaga on 03-05-2025 Monocytes/100 WBC (Bld) 5.1 % 0-10 [facility] Neutrophil percentageOrdered By: Rylie Arreaga on 03-05-2025 Neutrophils/100 WBC (Bld) 85.9 % High 47-70 [facility] Nucleated red blood cell per centageOrdered By: Rylie Arreaga on 03-05-2025 Nucleated RBC/100 WBC (Bld) [Ratio] 0 % 0-5 [facility] Platelet countOrdered By: Aaron Arreaga on 03-05-2025 Platelets (Bld) [#/Vol] 228 10*3/uL 150-450 [facility] Potassium measurement (mass/ volume)Ordered By: Rylie Arreaga on 03-05-2025 Potassium (Unsp spec) [Mass/Vol] 4.1 mmol/L 3.3-5.1 [facility] RBC Auto (Bld) [#/Vol]Ordere d By: Rylie Arreaga on 03-05-2025 RBC (Bld) [#/Vol] 3.06 10*6/uL Low 4.6-6.2 [facility] Serum creatinine measurement (mass/volume)Ordered By: Rylie Arreaga on 03-05-2025 Creatinine [Mass/Vol] 1.23 mg/dL High 0.70-1.20 [facility] Serum glucose measurement (m ass/volume)Ordered By: Rylie Arreaga on 03-05-2025 Glucose [Mass/Vol] 74 mg/dL 70-99 [facility] Serum or plasma calcium marlin urement (mass/volume)Ordered By: Rylie Arreaga on 03-05-2025 Calcium [Mass/Vol] 7.9 mg/dL 7.6-11.0 [facility] Serum or plasma urea nitroge n measurement (mass/volume)Ordered By: Rylie Arreaga on 03-05-2025 Urea nitrogen [Mass/Vol] 33 mg/dL High 4-19 [facility] Sodium levelOrdered By: Bo Arreaga on 03-05-2025 Sodium [Moles/Vol] 136 mmol/L 133-145 [facility] White blood cell (WBC) count Ordered By: Rylie Arreaga on 03-05-2025 WBC (Bld) [#/Vol] 5.9 10*3/uL 4.4-11.0 [facility] Amorphous sediment detection in urine sediment by light microscopyOrdered By: Gera Beard on 03-04-2025 Amorphous sediment LM Ql (Urine sed) 2+ [facility] Basic Metabolic Profile (BMP )on 03-04-2025 BUN/CRE 29.0 RATIO High 03-04 [facility] Comment on above: Performed By: #### L 100.0100, L500.2500 ####[facility] [address] [place], [address] Calcium [Mass/Vol] 8.9 mg/dL Normal 7.6-11.0 [facility] Comment on above: Performed By: #### L 100.0100, L500.2500 ####[facility] [address] [place], [address] Chloride [Moles/Vol] 98 mmol/L Normal 98-108 [facility] Comment on above: Performed By: #### L 100.0100, L500.2500 ####[facility] [address] [place], [address] CO2 [Moles/Vol] 26.5 mmol/L Normal 21.0-32.0 [facility] Comment on above: Performed By: #### L 100.0100, L500.2500 ####[facility] [address] [place], [address] Creatinine [Mass/Vol] 1.24 mg/dL High 0.70-1.20 [facility] Comment on above: Performed By: #### L 100.0100, L500.2500 ####[facility] [address] [place], [address] ECRCL 36.51 ml/min Low 50-250 [facility] Comment on above: Performed By: #### L 100.0100, L500.2500 ####[facility] [address] [place], [address] GAP 12 Normal 5-15 [facility] Comment on above: Performed By: #### L 100.0100, L500.2500 ####[facility] [address] [place], [address] GFR/1.73 sq M.predicted among non-blacks MDRD (S/P/Bld) [Vol rate/Area] 56 mL/min/{1.73_m2} Low >60 [facility] Comment on above: Result Comment: mL/m in/1.73m2 CKD-EPI Creatinine Equation (2020) Performed By: #### L 100.0100, L500.2500 ####[facility] [address] [place], [address] Glucose [Mass/Vol] 102 mg/dL High 70-99 [facility] Comment on above: Performed By: #### L 100.0100, L500.2500 ####[facility] [address] [place], [address] Potassium [Moles/Vol] 4.4 mmol/L Normal 3.3-5.1 [facility] Comment on above: Performed By: #### L 100.0100, L500.2500 ####[facility] [address] [place], [address] Sodium [Moles/Vol] 137 mmol/L Normal 133-145 [facility] Comment on above: Performed By: #### L 100.0100, L500.2500 ####[facility] [address] [place], [address] Urea nitrogen [Mass/Vol] 36 mg/dL High 4-19 [facility] Comment on above: Performed By: #### L 100.0100, L500.2500 ####[facility] [address] [place], [address] Bilirubin Test strip Ql (U)O rdered By: Gera Beard on 03-04-2025 Bilirubin Ql (U) Negative Negative [facility] Blood manual differential co mment interpretation (narrative result)Ordered By: Gera Beard on 03-04-2025 Manual differential comment Zeus (Bld) [Interp] SCANNED [facility] Blood polychromasia detectio n by light microscopyOrdered By: Gera Beard on 03-04-2025 Polychromasia LM Ql (Bld) 1+ [facility] CBC W/Diff, Automatedon 10- HYPOCHROMASIA 1+ Normal [facility] Comment on above: Performed By: #### L 100.0100, L500.2500 ####[facility] [address] [place], [address] Anisocytosis Ql (Bld) 2+ Normal [facility] Comment on above: Performed By: #### L 100.0100, L500.2500 ####[facility] [address] [place], [address] POLYCHROMASIA 1+ Normal [facility] Comment on above: Performed By: #### L 100.0100, L500.2500 ####[facility] [address] [place], [address] PLT EST ADEQUATE Normal ADEQ [facility] Comment on above: Performed By: #### L 100.0100, L500.2500 ####[facility] [address] [place], [address] SMEAR COMMENT SCANNED Normal [facility] Comment on above: Performed By: #### L 100.0100, L500.2500 ####[facility] [address] [place], [address] Emergency Department Summary on 03-04-2025 Emergency Department Summary Normal [facility] H AND P Exam - Hospitaliston 03-04-2025 H&P Exam - Hospitalist Normal [facility] Hypochromatic red blood cell detectionOrdered By: Gera Beard on 03-04-2025 Hypochromia Ql (Bld) 1+ [facility] Ketones Test strip Ql (U)Ord ered By: Gera Beard on 03-04-2025 Ketones Ql (U) 5 mg/dl High Negative [facility] Laboratory - Hematology and Cell countsOrdered By: Gera Beard on 03-04-2025 Anisocytosis Ql (Bld) 2+ [facility] Microscopic analysis of urin e for red blood cells (RBC)Ordered By: Gera Beard on 03-04-2025 Microscopic analysis of urine for red blood cells (RBC) 50-100 SEEN /hpf 0-5 [facility] Mucus LM Ql (Urine sed)Order ed By: Gera Beard on 03-04-2025 Mucus Ql (Urine sed) 0 SEEN /hpf [facility] Nitrite Test strip Ql (U)Ord ered By: Gera Beard on 03-04-2025 Nitrite Ql (U) Negative Negative [facility] No Panel InformationOrdered By: Gera Beard on 03-04-2025 2+ [facility] Platelet estimateOrdered By: Gera Beard on 03-04-2025 Platelets LM Ql (Bld) ADEQUATE ADEQ [facility] Protein Test strip Ql (U)Ord ered By: Gera Beard on 03-04-2025 Protein Ql (U) 30 mg/dl High Negative [facility] Spine Lumbar without Contras ton 03-04-2025 Spine Lumbar without Contrast Normal [facility] Squamous epithelial cells de tection in urine sediment by light microscopyOrdered By: Gera Beard on 03-04-2025 Epithelial cells.squamous LM Ql (Urine sed) 0-5 SEEN /hpf 0-5 [facility] Urinalysis, Completeon 03-04 AMORPHOUS 2+ Normal [facility] Comment on above: Order Comment: EFFIE NORTONOR TO SPECIFY Performed By: #### L 400.0001 ####[facility] [address] [place], [address] BACTERIA 1+ /hpf Normal None Seen [facility] Comment on above: Order Comment: EFFIE NORTONOR TO SPECIFY Performed By: #### L 400.0001 ####[facility] [address] [place], [address] EPI,SQUAMOUS 0-5 SEEN Normal 0-5 [facility] Comment on above: Order Comment: EFFIE CTOR TO SPECIFY Performed By: #### L 400.0001 ####[facility] [address] [place], [address] WBC 10-25 SEEN Normal 0-5 [facility] Comment on above: Order Comment: EFFIE CTOR TO SPECIFY Performed By: #### L 400.0001 ####[facility] [address] [place], [address] RBC 50-100 SEEN Normal 0-5 [facility] Comment on above: Order Comment: EFFIE CTOR TO SPECIFY Performed By: #### L 400.0001 ####[facility] [address] [place], [place], [id number] Mucus Ql (Urine sed) 0 SEEN Normal [facility] Comment on above: Order Comment: EFFIE CTOR TO SPECIFY Performed By: #### L 400.0001 ####[facility] [address] [place], [place], [id number] Urine clarityOrdered By: Elliott Beard on 03-04-2025 Clarity (U) Cloudy Clear [facility] Urine color determinationOrd ered By: Gera Beard on 03-04-2025 Color (U) Yellow Yellow [facility] Urine cultureOrdered By: Elliott Beard on 03-04-2025 Bacteria identified Cx Nom (U) Pseudomonas aeruginosa Abnormal [facility] Bacteria identified Cx Nom (U) Pseudomonas aeruginosa Abnormal [facility] Urine glucose detectionOrder ed By: Gera Beard on 03-04-2025 Glucose Ql (U) Normal mg/dl Normal [facility] Urine leukocyte esterase det ection by dipstickOrdered By: Gera Beard on 03-04-2025 Leukocyte esterase Test strip Ql (U) 100 /ul High Negative [facility] Urine pHOrdered By: Gera castañeda on 03-04-2025 pH (U) 6.0 [pH] 5.0 - 8.0 [facility] Urine sediment bacteria coun t by microscopy (number/high power field)Ordered By: Gera Beard on 03-04-2025 Bacteria LM.HPF (Urine sed) [#/Area] 1 /[HPF] None Seen [facility] Urine specific gravity measu rementOrdered By: Gera Beard on 03-04-2025 Specific gravity (U) [Rel density] 1.015 1.002-1.030 [facility] Urine urobilinogen measureme ntOrdered By: Gera Beard on 03-04-2025 Urobilinogen Ql (U) Normal mg/dl Normal [facility] White blood cell countOrdere d By: Gera Beard on 03-04-2025 White blood cell count 10-25 SEEN /hpf 0-5 [facility] Spine Lumbar (Routine)on Spine Lumbar (Routine) Normal [facility] Urine Cultureon 02-24-2025 URC Normal [facility] Comment on above: Performed By: #### M 100.2200 ####[facility] [address] [place], [place], [id number] Abdomen/Pelvis without Conto n 02-21-2025 Abdomen/Pelvis without Cont Normal [facility] Absolute lymphocyte countOrd ered By: Chito Werner on 02-21-2025 Lymphocytes Auto (Unsp spec) [#/Vol] 0.35 10*3/uL Low 0.83-4.51 [facility] Absolute neutrophil countOrd ered By: Chito Werner on 02-21-2025 Neutrophils (Bld) [#/Vol] 4.2 10*3/uL 2.0-7.7 [facility] Amorphous sediment detection in urine sediment by light microscopyOrdered By: Chito Werner on 02-21-2025 Amorphous sediment LM Ql (Urine sed) 2+ [facility] Anion gap in Serum or Plasma Ordered By: Chito Werner on 02-21-2025 Anion gap [Moles/Vol] 13 mmol/L 5-15 [facility] Automated lymphocyte count a s percentage of total leukocytesOrdered By: Chito Werner on 02-21-2025 Lymphocytes/100 WBC Auto (Unsp spec) 7.5 % Low 19-41 [facility] BUN/creatinine ratioOrdered By: Chito Werner on 02-21-2025 Urea nitrogen/Creatinine [Mass ratio] 33.8 mg/mg High 03-04 [facility] Basic Metabolic Profile (BMP )on 02-21-2025 BUN/CRE 33.8 RATIO High 03-04 [facility] Comment on above: Performed By: #### L 100.0100, L500.2500 ####[facility] [address] [place], [place], [id number] Calcium [Mass/Vol] 8.5 mg/dL Normal 7.6-11.0 [facility] Comment on above: Performed By: #### L 100.0100, L500.2500 ####[facility] [address] [place], [address] Chloride [Moles/Vol] 107 mmol/L Normal 98-108 [facility] Comment on above: Performed By: #### L 100.0100, L500.2500 ####[facility] [address] [place], [address] CO2 [Moles/Vol] 18.7 mmol/L Low 21.0-32.0 [facility] Comment on above: Performed By: #### L 100.0100, L500.2500 ####[facility] [address] [place], [address] Creatinine [Mass/Vol] 1.81 mg/dL High 0.70-1.20 [facility] Comment on above: Performed By: #### L 100.0100, L500.2500 ####[facility] [address] [place], [address] ECRCL 25.01 ml/min Low 50-250 [facility] Comment on above: Performed By: #### L 100.0100, L500.2500 ####[facility] [address] [place], [address] GAP 13 Normal 5-15 [facility] Comment on above: Performed By: #### L 100.0100, L500.2500 ####[facility] [address] [place], [address] GFR/1.73 sq M.predicted among non-blacks MDRD (S/P/Bld) [Vol rate/Area] 36 mL/min/{1.73_m2} Low >60 [facility] Comment on above: Result Comment: mL/m in/1.73m2 CKD-EPI Creatinine Equation (2020) Performed By: #### L 100.0100, L500.2500 ####[facility] [address] [place], [address] Glucose [Mass/Vol] 132 mg/dL High 70-99 [facility] Comment on above: Performed By: #### L 100.0100, L500.2500 ####[facility] [address] [place], [address] Potassium [Moles/Vol] 3.9 mmol/L Normal 3.3-5.1 [facility] Comment on above: Performed By: #### L 100.0100, L500.2500 ####[facility] [address] [place], [address] Sodium [Moles/Vol] 138 mmol/L Normal 133-145 [facility] Comment on above: Performed By: #### L 100.0100, L500.2500 ####[facility] [address] [place], [address] Urea nitrogen [Mass/Vol] 61 mg/dL High 4-19 [facility] Comment on above: Performed By: #### L 100.0100, L500.2500 ####[facility] [address] [place], [address] Basophil percentageOrdered B y: Chito Werner on 02-21-2025 Basophils/100 WBC (Bld) 0.2 % 0-1 [facility] Bilirubin Test strip Ql (U)O rdered By: Chito Werner on 02-21-2025 Bilirubin Ql (U) Negative Negative [facility] CBC W/Diff, Automatedon 10-0 Absolute Lymph 0.35 X10 3/uL Low 0.83-4.51 [facility] Comment on above: Performed By: #### L 100.0100, L500.2500 ####[facility] [address] [place], [address] Absolute Neut 4.2 X10 3/uL Normal 2.0-7.7 [facility] Comment on above: Performed By: #### L 100.0100, L500.2500 ####[facility] [address] [place], [address] Basophils/100 WBC (Bld) 0.2 % Normal 0-1 [facility] Comment on above: Performed By: #### L 100.0100, L500.2500 ####[facility] [address] [place], [address] Eosinophils/100 WBC (Bld) 0.0 % Normal 0-5 [facility] Comment on above: Performed By: #### L 100.0100, L500.2500 ####[facility] [address] [place], [address] Erythrocyte distribution width (RBC) [Ratio] 17.6 % High 11.6-14.6 [facility] Comment on above: Performed By: #### L 100.0100, L500.2500 ####[facility] [address] [place], [address] Hematocrit (Bld) [Volume fraction] 31.2 % Low 40-54 [facility] Comment on above: Performed By: #### L 100.0100, L500.2500 ####[facility] [address] [place], [address] Hemoglobin (Bld) [Mass/Vol] 10.5 g/dL Low 13.0-16.5 [facility] Comment on above: Performed By: #### L 100.0100, L500.2500 ####[facility] [address] [place], [address] IG% 0.900 Normal 0.0-0.9 [facility] Comment on above: Result Comment: IG% - Immature Granulocytes (promyelocytes, myelocytes andmetamyelocytes) > 1% indicates that a LEFT SHIFT is Present. Performed By: #### L 100.0100, L500.2500 ####[facility] [address] [place], [address] Lymphocytes/100 WBC (Bld) 7.5 % Low 19-41 [facility] Comment on above: Performed By: #### L 100.0100, L500.2500 ####[facility] [address] [place], [address] MCH (RBC) [Entitic mass] 33.1 pg High 27.0-32.0 [facility] Comment on above: Performed By: #### L 100.0100, L500.2500 ####[facility] [address] [place], [address] MCHC (RBC) [Mass/Vol] 33.7 g/dL Normal 32-36 [facility] Comment on above: Performed By: #### L 100.0100, L500.2500 ####[facility] [address] [place], [address] MCV (RBC) [Entitic vol] 98.4 fL High 80-94 [facility] Comment on above: Performed By: #### L 100.0100, L500.2500 ####[facility] [address] [place], [address] Monocytes/100 WBC (Bld) 1.3 % Normal 0-10 [facility] Comment on above: Performed By: #### L 100.0100, L500.2500 ####[facility] [address] [place], [address] Neutrophils/100 WBC (Bld) 90.1 % High 47-70 [facility] Comment on above: Performed By: #### L 100.0100, L500.2500 ####[facility] [address] [place], [address] Nucleated RBC (Bld) [#/Vol] 0 10*3/uL Normal 0-5 [facility] Comment on above: Performed By: #### L 100.0100, L500.2500 ####[facility] [address] [place], [address] Platelet mean volume (Bld) [Entitic vol] 9.8 fL Normal 6.2-12.0 [facility] Comment on above: Performed By: #### L 100.0100, L500.2500 ####[facility] [address] [place], [address] Platelets (Bld) [#/Vol] 184 10*3/uL Normal 150-450 [facility] Comment on above: Performed By: #### L 100.0100, L500.2500 ####[facility] [address] [place], [address] RBC (Bld) [#/Vol] 3.17 10*6/uL Low 4.6-6.2 [facility] Comment on above: Performed By: #### L 100.0100, L500.2500 ####[facility] [address] [place], [address] RDW SD 63.5 fl High 35.1-43.9 [facility] Comment on above: Performed By: #### L 100.0100, L500.2500 ####[facility] [address] [place], [address] WBC (Bld) [#/Vol] 4.6 10*3/uL Normal 4.4-11.0 [facility] Comment on above: Performed By: #### L 100.0100, L500.2500 ####[facility] [address] [place], [address] Carbon dioxide, total [Moles /volume] in Central venous bloodOrdered By: Chito Werner on 02-21-2025 CO2 [Moles/Vol] 18.7 mmol/L Low 21.0-32.0 [facility] Chloride assayOrdered By: Deven Werner on 02-21-2025 Chloride [Moles/Vol] 107 mmol/L 98-108 [facility] Summary on 02-21-2025 Emergency Department Summary Normal [facility] Eosinophil percentageOrdered By: Chito Werner on 02-21-2025 Eosinophils/100 WBC (Bld) 0.0 % 0-5 [facility] Erythrocyte distribution wid th ratioOrdered By: Chito Werner on 02-21-2025 Erythrocyte distribution width (RBC) [Ratio] 17.6 % High 11.6-14.6 [facility] Erythrocyte distribution wid th standard deviationOrdered By: Chito Werner on 02-21-2025 Erythrocyte distribution width (RBC) [Ratio] 63.5 fl High 35.1-43.9 [facility] Glomerular filtration rate ( GFR) estimation/1.73 sq m using serum, plasma, or whole bOrdered By: Chito Werner on 02-21-2025 GFR/1.73 sq M.predicted among non-blacks MDRD (S/P/Bld) [Vol rate/Area] 36 mL/min/{1.73_m2} Low >60 [facility] Comment on above: mL/min/1.73m2 CKD-EP I Creatinine Equation (2020) Hematocrit Auto (Bld) [Volum e fraction]Ordered By: Chito Wernre on 02-21-2025 Hematocrit (Bld) [Volume fraction] 31.2 % Low 40-54 [facility] Hemoglobin measurementOrdere d By: Chito Werner on 02-21-2025 Hemoglobin (Bld) [Mass/Vol] 10.5 g/dL Low 13.0-16.5 [facility] Immature granulocytes/100 WB C Auto (Bld)Ordered By: Chito Werner on 02-21-2025 Immature granulocytes/100 WBC (Bld) 0.900 % 0.0-0.9 [facility] Comment on above: IG% - Immature Granu locytes (promyelocytes, myelocytes and metamyelocytes) > 1% indicates that a LEFT SHIFT is Present. Ketones Test strip Ql (U)Ord ered By: Chito Werner on 02-21-2025 Ketones Ql (U) Negative Negative [facility] MCV (mean corpuscular volume ) determinationOrdered By: Chito Werner on 02-21-2025 MCV (RBC) [Entitic vol] 98.4 fL High 80-94 [facility] Mean corpuscular hemoglobin (MCH) determinationOrdered By: Chito Werner on 02-21-2025 MCH (RBC) [Entitic mass] 33.1 pg High 27.0-32.0 [facility] Mean corpuscular hemoglobin concentration (MCHC) determinationOrdered By: Chito Werner on 02-21-2025 MCHC (RBC) [Mass/Vol] 33.7 g/dL 32-36 [facility] Mean platelet volume determi nationOrdered By: Chito Werner on 02-21-2025 Platelet mean volume (Bld) [Entitic vol] 9.8 fL 6.2-12.0 [facility] Microscopic analysis of urin e for red blood cells (RBC)Ordered By: Chito Werner on 02-21-2025 Microscopic analysis of urine for red blood cells (RBC) > 100 SEEN /hpf 0-5 [facility] Monocyte percentageOrdered B y: Chito Werner on 02-21-2025 Monocytes/100 WBC (Bld) 1.3 % 0-10 [facility] Mucus LM Ql (Urine sed)Order ed By: Chito Werner on 02-21-2025 Mucus Ql (Urine sed) 0 SEEN /hpf [facility] Neutrophil percentageOrdered By: Chito Werner on 02-21-2025 Neutrophils/100 WBC (Bld) 90.1 % High 47-70 [facility] Nitrite Test strip Ql (U)Ord ered By: Chito Werner on 02-21-2025 Nitrite Ql (U) Positive High Negative [facility] Nucleated red blood cell per centageOrdered By: Chito Werner on 02-21-2025 Nucleated RBC/100 WBC (Bld) [Ratio] 0 % 0-5 [facility] Platelet countOrdered By: Deven Werner on 02-21-2025 Platelets (Bld) [#/Vol] 184 10*3/uL 150-450 [facility] Potassium measurement (mass/ volume)Ordered By: Chito Werner on 02-21-2025 Potassium (Unsp spec) [Mass/Vol] 3.9 mmol/L 3.3-5.1 [facility] Protein Test strip Ql (U)Ord ered By: Chito Werner on 02-21-2025 Protein Ql (U) 100 mg/dl High Negative [facility] RBC Auto (Bld) [#/Vol]Ordere d By: Chito Werner on 02-21-2025 RBC (Bld) [#/Vol] 3.17 10*6/uL Low 4.6-6.2 [facility] Serum creatinine measurement (mass/volume)Ordered By: Chito Werner on 02-21-2025 Creatinine [Mass/Vol] 1.81 mg/dL High 0.70-1.20 [facility] Serum glucose measurement (m ass/volume)Ordered By: Chito Werner on 02-21-2025 Glucose [Mass/Vol] 132 mg/dL High 70-99 [facility] Serum or plasma calcium marlin urement (mass/volume)Ordered By: Chito Werner on 02-21-2025 Calcium [Mass/Vol] 8.5 mg/dL 7.6-11.0 [facility] Serum or plasma urea nitroge n measurement (mass/volume)Ordered By: Chito Werner on 02-21-2025 Urea nitrogen [Mass/Vol] 61 mg/dL High 4-19 [facility] Sodium levelOrdered By: Chito Werner on 02-21-2025 Sodium [Moles/Vol] 138 mmol/L 133-145 [facility] Squamous epithelial cells de tection in urine sediment by light microscopyOrdered By: Chito Werner on 02-21-2025 Epithelial cells.squamous LM Ql (Urine sed) 0-5 SEEN /hpf 0-5 [facility] Urinalysis, Completeon 02-21 EPI,SQUAMOUS 0-5 SEEN Normal 0-5 [facility] Comment on above: Order Comment: COLOR OF URINE MAY AFFECT DIPSTICK RESULTS.CLEAN CATCH Performed By: #### L 400.0001 ####[facility] [address] [place], [address] AMORPHOUS 2+ Normal [facility] Comment on above: Order Comment: COLOR OF URINE MAY AFFECT DIPSTICK RESULTS.CLEAN CATCH Performed By: #### L 400.0001 ####[facility] [address] [place], [address] BACTERIA 3+ /hpf Normal None Seen [facility] Comment on above: Order Comment: COLOR OF URINE MAY AFFECT DIPSTICK RESULTS.CLEAN CATCH Performed By: #### L 400.0001 ####[facility] [address] [place], [address] RBC > 100 SEEN Normal 0-5 [facility] Comment on above: Order Comment: COLOR OF URINE MAY AFFECT DIPSTICK RESULTS.CLEAN CATCH Performed By: #### L 400.0001 ####[facility] [address] [place], [address] WBC >100 SEEN Normal 0-5 [facility] Comment on above: Order Comment: COLOR OF URINE MAY AFFECT DIPSTICK RESULTS.CLEAN CATCH Performed By: #### L 400.0001 ####[facility] [address] [place], [address] Mucus Ql (Urine sed) 0 SEEN Normal [facility] Comment on above: Order Comment: COLOR OF URINE MAY AFFECT DIPSTICK RESULTS.CLEAN CATCH Performed By: #### L 400.0001 ####[facility] [address] [place], [address] Urine clarityOrdered By: Saumya Werner on 02-21-2025 Clarity (U) Cloudy Clear [facility] Urine color determinationOrd ered By: Chito Werner on 02-21-2025 Color (U) Luna Yellow [facility] Urine cultureOrdered By: Saumya Werner on 02-21-2025 Bacteria identified Cx Nom (U) Burkholderia gladioli Abnormal [facility] Bacteria identified Cx Nom (U) Burkholderia gladioli Abnormal [facility] Urine glucose detectionOrder ed By: Chito Werner on 02-21-2025 Glucose Ql (U) Normal mg/dl Normal [facility] Urine leukocyte esterase det ection by dipstickOrdered By: Chito Werner on 02-21-2025 Leukocyte esterase Test strip Ql (U) 100 /ul High Negative [facility] Urine pHOrdered By: Chito sanders on 02-21-2025 pH (U) 5.0 [pH] 5.0 - 8.0 [facility] Urine sediment bacteria coun t by microscopy (number/high power field)Ordered By: Chito Werner on 02-21-2025 Bacteria LM.HPF (Urine sed) [#/Area] 3 /[HPF] None Seen [facility] Urine specific gravity measu rementOrdered By: Chito Werner on 02-21-2025 Specific gravity (U) [Rel density] 1.015 1.002-1.030 [facility] Urine urobilinogen measureme ntOrdered By: Chito Werner on 02-21-2025 Urobilinogen Ql (U) Normal mg/dl Normal [facility] White blood cell (WBC) count Ordered By: Chito Werner on 02-21-2025 WBC (Bld) [#/Vol] 4.6 10*3/uL 4.4-11.0 [facility] White blood cell countOrdere d By: Chito Werner on 02-21-2025 White blood cell count >100 SEEN /hpf 0-5 [facility] 12 Lead EKGon 02-19-2025 12 Lead EKG Normal [facility] Absolute lymphocyte countOrd ered By: Chito Werner on 02-19-2025 Lymphocytes Auto (Unsp spec) [#/Vol] 0.67 10*3/uL Low 0.83-4.51 [facility] Absolute neutrophil countOrd ered By: Chito Werner on 02-19-2025 Neutrophils (Bld) [#/Vol] 4.5 10*3/uL 2.0-7.7 [facility] Anion gap in Serum or Plasma Ordered By: Chito Werner on 02-19-2025 Anion gap [Moles/Vol] 18 mmol/L High 5-15 [facility] Automated lymphocyte count a s percentage of total leukocytesOrdered By: Chito Werner on 02-19-2025 Lymphocytes/100 WBC Auto (Unsp spec) 11.9 % Low 19-41 [facility] BUN/creatinine ratioOrdered By: Chito Werner on 02-19-2025 Urea nitrogen/Creatinine [Mass ratio] 54.8 mg/mg High 10-20 [facility] Basic Metabolic Profile (BMP )on 02-19-2025 BUN/CRE 54.8 RATIO High -20 [facility] Comment on above: Performed By: #### L 100.0100, L500.2500 ####[facility] [address] [place], [address] Calcium [Mass/Vol] 8.1 mg/dL Normal 7.6-11.0 [facility] Comment on above: Performed By: #### L 100.0100, L500.2500 ####[facility] [address] [place], [address] Chloride [Moles/Vol] 108 mmol/L Normal 98-108 [facility] Comment on above: Performed By: #### L 100.0100, L500.2500 ####[facility] [address] [place], [address] CO2 [Moles/Vol] 14.1 mmol/L Low 21.0-32.0 [facility] Comment on above: Performed By: #### L 100.0100, L500.2500 ####[facility] [address] [place], [address] Creatinine [Mass/Vol] 1.45 mg/dL High 0.70-1.20 [facility] Comment on above: Performed By: #### L 100.0100, L500.2500 ####[facility] [address] [place], [address] GAP 18 High 5-15 [facility] Comment on above: Performed By: #### L 100.0100, L500.2500 ####[facility] [address] [place], [address] GFR/1.73 sq M.predicted among non-blacks MDRD (S/P/Bld) [Vol rate/Area] 47 mL/min/{1.73_m2} Low >60 [facility] Comment on above: Result Comment: mL/m in/1.73m2 CKD-EPI Creatinine Equation (2020) Performed By: #### L 100.0100, L500.2500 ####[facility] [address] [place], [address] Glucose [Mass/Vol] 125 mg/dL High 70-99 [facility] Comment on above: Performed By: #### L 100.0100, L500.2500 ####[facility] [address] [place], [address] Potassium [Moles/Vol] 4.0 mmol/L Normal 3.3-5.1 [facility] Comment on above: Result Comment: Hemo lysis present, Results??could be affected.?? Performed By: #### L 100.0100, L500.2500 ####[facility] [address] [place], [address] Sodium [Moles/Vol] 140 mmol/L Normal 133-145 [facility] Comment on above: Performed By: #### L 100.0100, L500.2500 ####[facility] [address] [place], [address] Urea nitrogen [Mass/Vol] 79 mg/dL High 4-19 [facility] Comment on above: Performed By: #### L 100.0100, L500.2500 ####[facility] [address] [place], [address] Basophil percentageOrdered B y: Chito Werner on 02-19-2025 Basophils/100 WBC (Bld) 0.7 % 0-1 [facility] CBC W/Diff, Automatedon 10-0 Absolute Lymph 0.67 X10 3/uL Low 0.83-4.51 [facility] Comment on above: Performed By: #### L 100.0100, L500.2500 ####[facility] [address] [place], [address] Absolute Neut 4.5 X10 3/uL Normal 2.0-7.7 [facility] Comment on above: Performed By: #### L 100.0100, L500.2500 ####[facility] [address] [place], [address] Basophils/100 WBC (Bld) 0.7 % Normal 0-1 [facility] Comment on above: Performed By: #### L 100.0100, L500.2500 ####[facility] [address] [place], [address] Eosinophils/100 WBC (Bld) 0.9 % Normal 0-5 [facility] Comment on above: Performed By: #### L 100.0100, L500.2500 ####[facility] [address] [place], [address] Erythrocyte distribution width (RBC) [Ratio] 17.6 % High 11.6-14.6 [facility] Comment on above: Performed By: #### L 100.0100, L500.2500 ####[facility] [address] [place], [address] Hematocrit (Bld) [Volume fraction] 31.0 % Low 40-54 [facility] Comment on above: Performed By: #### L 100.0100, L500.2500 ####[facility] [address] [place], [address] Hemoglobin (Bld) [Mass/Vol] 10.5 g/dL Low 13.0-16.5 [facility] Comment on above: Performed By: #### L 100.0100, L500.2500 ####[facility] [address] [place], [address] IG% 0.900 Normal 0.0-0.9 [facility] Comment on above: Result Comment: IG% - Immature Granulocytes (promyelocytes, myelocytes andmetamyelocytes) > 1% indicates that a LEFT SHIFT is Present. Performed By: #### L 100.0100, L500.2500 ####[facility] [address] [place], [address] Lymphocytes/100 WBC (Bld) 11.9 % Low 19-41 [facility] Comment on above: Performed By: #### L 100.0100, L500.2500 ####[facility] [address] [place], [address] MCH (RBC) [Entitic mass] 33.2 pg High 27.0-32.0 [facility] Comment on above: Performed By: #### L 100.0100, L500.2500 ####[facility] [address] [place], [address] MCHC (RBC) [Mass/Vol] 33.9 g/dL Normal 32-36 [facility] Comment on above: Performed By: #### L 100.0100, L500.2500 ####[facility] [address] [place], [address] MCV (RBC) [Entitic vol] 98.1 fL High 80-94 [facility] Comment on above: Performed By: #### L 100.0100, L500.2500 ####[facility] [address] [place], [address] Monocytes/100 WBC (Bld) 5.9 % Normal 0-10 [facility] Comment on above: Performed By: #### L 100.0100, L500.2500 ####[facility] [address] [place], [address] Neutrophils/100 WBC (Bld) 79.7 % High 47-70 [facility] Comment on above: Performed By: #### L 100.0100, L500.2500 ####[facility] [address] [place], [address] Nucleated RBC (Bld) [#/Vol] 0 10*3/uL Normal 0-5 [facility] Comment on above: Performed By: #### L 100.0100, L500.2500 ####[facility] [address] [place], [address] Platelet mean volume (Bld) [Entitic vol] 10.1 fL Normal 6.2-12.0 [facility] Comment on above: Performed By: #### L 100.0100, L500.2500 ####[facility] [address] [place], [address] Platelets (Bld) [#/Vol] 208 10*3/uL Normal 150-450 [facility] Comment on above: Performed By: #### L 100.0100, L500.2500 ####[facility] [address] [place], [address] RBC (Bld) [#/Vol] 3.16 10*6/uL Low 4.6-6.2 [facility] Comment on above: Performed By: #### L 100.0100, L500.2500 ####[facility] [address] [place], [address] RDW SD 61.4 fl High 35.1-43.9 [facility] Comment on above: Performed By: #### L 100.0100, L500.2500 ####[facility] [address] [place], [address] WBC (Bld) [#/Vol] 5.6 10*3/uL Normal 4.4-11.0 [facility] Comment on above: Performed By: #### L 100.0100, L500.2500 ####[facility] [address] [place], [address] Carbon dioxide, total [Moles /volume] in Central venous bloodOrdered By: Chito Werner on 02-19-2025 CO2 [Moles/Vol] 14.1 mmol/L Low 21.0-32.0 [facility] Chest 1 View (Portable)on Chest 1 View (Portable) Normal [facility] Chloride assayOrdered By: Deven Werner on 02-19-2025 Chloride [Moles/Vol] 108 mmol/L 98-108 [facility] Emergency Department Summary on 02-19-2025 Emergency Department Summary Normal [facility] Eosinophil percentageOrdered By: Chito Werner on 02-19-2025 Eosinophils/100 WBC (Bld) 0.9 % 0-5 [facility] Erythrocyte distribution wid th ratioOrdered By: Chito Werner on 02-19-2025 Erythrocyte distribution width (RBC) [Ratio] 17.6 % High 11.6-14.6 [facility] Erythrocyte distribution wid th standard deviationOrdered By: Chito Werner on 02-19-2025 Erythrocyte distribution width (RBC) [Ratio] 61.4 fl High 35.1-43.9 [facility] Glomerular filtration rate ( GFR) estimation/1.73 sq m using serum, plasma, or whole bOrdered By: Chito Werner on 02-19-2025 GFR/1.73 sq M.predicted among non-blacks MDRD (S/P/Bld) [Vol rate/Area] 47 mL/min/{1.73_m2} Low >60 [facility] Comment on above: mL/min/1.73m2 CKD-EP I Creatinine Equation (2020) Hematocrit Auto (Bld) [Volum e fraction]Ordered By: Chito Werner on 02-19-2025 Hematocrit (Bld) [Volume fraction] 31.0 % Low 40-54 [facility] Hemoglobin measurementOrdere d By: Chito Werner on 02-19-2025 Hemoglobin (Bld) [Mass/Vol] 10.5 g/dL Low 13.0-16.5 [facility] Immature granulocytes/100 WB C Auto (Bld)Ordered By: Chito Werner on 02-19-2025 Immature granulocytes/100 WBC (Bld) 0.900 % 0.0-0.9 [facility] Comment on above: IG% - Immature Granu locytes (promyelocytes, myelocytes and metamyelocytes) > 1% indicates that a LEFT SHIFT is Present. MCV (mean corpuscular volume ) determinationOrdered By: Chito Werner on 02-19-2025 MCV (RBC) [Entitic vol] 98.1 fL High 80-94 [facility] Mean corpuscular hemoglobin (MCH) determinationOrdered By: Chito Werner on 02-19-2025 MCH (RBC) [Entitic mass] 33.2 pg High 27.0-32.0 [facility] Mean corpuscular hemoglobin concentration (MCHC) determinationOrdered By: Chito Werner on 02-19-2025 MCHC (RBC) [Mass/Vol] 33.9 g/dL 32-36 [facility] Mean platelet volume determi nationOrdered By: Chito Werner on 02-19-2025 Platelet mean volume (Bld) [Entitic vol] 10.1 fL 6.2-12.0 [facility] Monocyte percentageOrdered B y: Chito Werner on 02-19-2025 Monocytes/100 WBC (Bld) 5.9 % 0-10 [facility] Neutrophil percentageOrdered By: Chito Werner on 02-19-2025 Neutrophils/100 WBC (Bld) 79.7 % High 47-70 [facility] Nucleated red blood cell per centageOrdered By: Chito Werner on 02-19-2025 Nucleated RBC/100 WBC (Bld) [Ratio] 0 % 0-5 [facility] Platelet countOrdered By: Deven Werner on 02-19-2025 Platelets (Bld) [#/Vol] 208 10*3/uL 150-450 [facility] Potassium measurement (mass/ volume)Ordered By: Chito Werner on 02-19-2025 Potassium (Unsp spec) [Mass/Vol] 4.0 mmol/L 3.3-5.1 [facility] Comment on above: Hemolysis present, R esults could be affected. RBC Auto (Bld) [#/Vol]Ordere d By: Chito Werner on 02-19-2025 RBC (Bld) [#/Vol] 3.16 10*6/uL Low 4.6-6.2 [facility] Serum creatinine measurement (mass/volume)Ordered By: Chito Werner on 02-19-2025 Creatinine [Mass/Vol] 1.45 mg/dL High 0.70-1.20 [facility] Serum glucose measurement (m ass/volume)Ordered By: Chito Werner on 02-19-2025 Glucose [Mass/Vol] 125 mg/dL High 70-99 [facility] Serum or plasma calcium marlin urement (mass/volume)Ordered By: Chito Werner on 02-19-2025 Calcium [Mass/Vol] 8.1 mg/dL 7.6-11.0 [facility] Serum or plasma urea nitroge n measurement (mass/volume)Ordered By: Chito Werner on 02-19-2025 Urea nitrogen [Mass/Vol] 79 mg/dL High 4-19 [facility] Sodium levelOrdered By: Chito Werner on 02-19-2025 Sodium [Moles/Vol] 140 mmol/L 133-145 [facility] White blood cell (WBC) count Ordered By: Chito Werner on 02-19-2025 WBC (Bld) [#/Vol] 5.6 10*3/uL 4.4-11.0 [facility] Cardiology Visit Reporton Cardiology Visit Report Normal [facility] Anion gap in Serum or Plasma Ordered By: Shoshana Ulrich on 01-24-2025 Anion gap [Moles/Vol] 17 mmol/L High 5-15 [facility] BUN/creatinine ratioOrdered By: Shoshana Ulrich on 01-24-2025 Urea nitrogen/Creatinine [Mass ratio] 23.8 mg/mg High 10-20 [facility] Bilirubin, totalOrdered By: Shoshana Ulrich on 01-24-2025 Bilirubin [Mass/Vol] 0.22 mg/dL 0.00-1.30 [facility] CBC-Complete Blood Cnt No Di ffon 01-24-2025 Erythrocyte distribution width (RBC) [Ratio] 15.1 % High 11.6-14.6 [facility] Comment on above: Performed By: #### L 500.3000, L501.9579, L100.0500 ####[facility] [address] [place], [address] Hematocrit (Bld) [Volume fraction] 35.8 % Low 40-54 [facility] Comment on above: Performed By: #### L 500.4050, L501.9520, L100.0500 ####[facility] [address] [place], [address] Hemoglobin (Bld) [Mass/Vol] 11.7 g/dL Low 13.0-16.5 [facility] Comment on above: Performed By: #### L 500.4050, L501.9520, L100.0500 ####[facility] [address] [place], [address] MCH (RBC) [Entitic mass] 33.0 pg High 27.0-32.0 [facility] Comment on above: Performed By: #### L 500.4050, L501.9520, L100.0500 ####[facility] [address] [place], [address] MCHC (RBC) [Mass/Vol] 32.7 g/dL Normal 32-36 [facility] Comment on above: Performed By: #### L 500.4050, L501.9520, L100.0500 ####[facility] [address] [place], [address] MCV (RBC) [Entitic vol] 100.8 fL High 80-94 [facility] Comment on above: Performed By: #### L 500.4050, L501.9520, L100.0500 ####[facility] [address] [place], [address] Platelet mean volume (Bld) [Entitic vol] 12.8 fL High 6.2-12.0 [facility] Comment on above: Performed By: #### L 500.4050, L501.9520, L100.0500 ####[facility] [address] [place], [address] Platelets (Bld) [#/Vol] 106 10*3/uL Low 150-450 [facility] Comment on above: Performed By: #### L 500.4050, L501.9520, L100.0500 ####[facility] [address] [place], [address] RBC (Bld) [#/Vol] 3.55 10*6/uL Low 4.6-6.2 [facility] Comment on above: Performed By: #### L 500.4050, L501.9520, L100.0500 ####[facility] [address] [place], [address] RDW SD 56.5 fl High 35.1-43.9 [facility] Comment on above: Performed By: #### L 500.4050, L501.9520, L100.0500 ####[facility] [address] [place], [address] WBC (Bld) [#/Vol] 5.7 10*3/uL Normal 4.4-11.0 [facility] Comment on above: Performed By: #### L 500.4050, L501.9520, L100.0500 ####[facility] [address] [place], [address] Carbon dioxide, total [Moles /volume] in Central venous bloodOrdered By: Shoshana Ulrich on 01-24-2025 CO2 [Moles/Vol] 19.4 mmol/L Low 21.0-32.0 [facility] Chloride assayOrdered By: Paul Ulrich on 01-24-2025 Chloride [Moles/Vol] 101 mmol/L 98-108 [facility] Comprehensive Metabolic Prof ilon 01-24-2025 Albumin [Mass/Vol] 3.8 g/dL Normal 3.4-4.8 [facility] Comment on above: Performed By: #### L 500.4050, L501.9520, L100.0500 ####[facility] [address] [place], [address] Albumin/Globulin [Mass ratio] 1.5 {ratio} Normal 0.9-2.4 [facility] Comment on above: Performed By: #### L 500.4050, L501.9520, L100.0500 ####[facility] [address] [place], [address] ALK PHOS 57 U/L Normal 40-129 [facility] Comment on above: Performed By: #### L 500.4050, L501.9520, L100.0500 ####[facility] [address] [place], [address] ALT [Catalytic activity/Vol] 19 U/L Normal <=46 [facility] Comment on above: Performed By: #### L 500.4050, L501.9520, L100.0500 ####[facility] [address] [place], [address] AST [Catalytic activity/Vol] 25 U/L Normal <=37 [facility] Comment on above: Performed By: #### L 500.4050, L501.9520, L100.0500 ####[facility] [address] [place], [address] Bilirubin [Mass/Vol] 0.22 mg/dL Normal 0.00-1.30 [facility] Comment on above: Performed By: #### L 500.4050, L501.9520, L100.0500 ####[facility] [address] [place], [address] BUN/CRE 23.8 RATIO High 10-20 [facility] Comment on above: Performed By: #### L 500.4050, L501.9520, L100.0500 ####[facility] [address] [place], [address] Calcium [Mass/Vol] 8.8 mg/dL Normal 7.6-11.0 [facility] Comment on above: Performed By: #### L 500.4050, L501.9520, L100.0500 ####[facility] [address] [place], [address] Chloride [Moles/Vol] 101 mmol/L Normal 98-108 [facility] Comment on above: Performed By: #### L 500.4050, L501.9520, L100.0500 ####[facility] [address] [place], [address] CO2 [Moles/Vol] 19.4 mmol/L Low 21.0-32.0 [facility] Comment on above: Performed By: #### L 500.4050, L501.9520, L100.0500 ####[facility] [address] [place], [address] Creatinine [Mass/Vol] 1.81 mg/dL High 0.70-1.20 [facility] Comment on above: Performed By: #### L 500.4050, L501.9520, L100.0500 ####[facility] [address] [place], [address] GAP 17 High 5-15 [facility] Comment on above: Performed By: #### L 500.4050, L501.9520, L100.0500 ####[facility] [address] [place], [address] GFR/1.73 sq M.predicted among non-blacks MDRD (S/P/Bld) [Vol rate/Area] 36 mL/min/{1.73_m2} Low >60 [facility] Comment on above: Result Comment: mL/m in/1.73m2 CKD-EPI Creatinine Equation (2020) Performed By: #### L 500.4050, L501.9520, L100.0500 ####[facility] [address] [place], [address] Globulin (S) [Mass/Vol] 2.5 g/dL Normal 2.2-4.2 [facility] Comment on above: Performed By: #### L 500.4050, L501.9520, L100.0500 ####[facility] [address] [place], [address] Glucose [Mass/Vol] 104 mg/dL High 70-99 [facility] Comment on above: Performed By: #### L 500.4050, L501.9520, L100.0500 ####[facility] [address] [place], [address] Potassium [Moles/Vol] 3.5 mmol/L Normal 3.3-5.1 [facility] Comment on above: Performed By: #### L 500.4050, L501.9520, L100.0500 ####[facility] [address] [place], [address] Sodium [Moles/Vol] 137 mmol/L Normal 133-145 [facility] Comment on above: Performed By: #### L 500.4050, L501.9520, L100.0500 ####[facility] [address] [place], [address] T PROT 6.3 g/dL Normal 5.9-8.4 [facility] Comment on above: Performed By: #### L 500.4050, L501.9520, L100.0500 ####[facility] [address] [place], [address] Urea nitrogen [Mass/Vol] 43 mg/dL High 4-19 [facility] Comment on above: Performed By: #### L 500.4050, L501.9520, L100.0500 ####[facility] [address] [place], [address] Erythrocyte distribution wid th ratioOrdered By: Shoshana Ulrich on 01-24-2025 Erythrocyte distribution width (RBC) [Ratio] 15.1 % High 11.6-14.6 [facility] Erythrocyte distribution wid th standard deviationOrdered By: Shoshana Ulrich on 01-24-2025 Erythrocyte distribution width (RBC) [Ratio] 56.5 fl High 35.1-43.9 [facility] Glomerular filtration rate ( GFR) estimation/1.73 sq m using serum, plasma, or whole bOrdered By: Shoshana Ulrich on 01-24-2025 GFR/1.73 sq M.predicted among non-blacks MDRD (S/P/Bld) [Vol rate/Area] 36 mL/min/{1.73_m2} Low >60 [facility] Comment on above: mL/min/1.73m2 CKD-EP I Creatinine Equation (2020) Hematocrit Auto (Bld) [Volum e fraction]Ordered By: Shoshana Ulrich on 01-24-2025 Hematocrit (Bld) [Volume fraction] 35.8 % Low 40-54 [facility] Hemoglobin measurementOrdere d By: Shoshana Ulrich on 01-24-2025 Hemoglobin (Bld) [Mass/Vol] 11.7 g/dL Low 13.0-16.5 [facility] Laboratory - Chemistry and C hemistry - challengeOrdered By: Shoshana Ulrich on 01-24-2025 AST [Catalytic activity/Vol] 25 U/L <38 [facility] MCV (mean corpuscular volume ) determinationOrdered By: Shoshana Ulrich on 01-24-2025 MCV (RBC) [Entitic vol] 100.8 fL High 80-94 [facility] Mean corpuscular hemoglobin (MCH) determinationOrdered By: Shoshana Ulrich on 01-24-2025 MCH (RBC) [Entitic mass] 33.0 pg High 27.0-32.0 [facility] Mean corpuscular hemoglobin concentration (MCHC) determinationOrdered By: Shoshana Ulrich on 01-24-2025 MCHC (RBC) [Mass/Vol] 32.7 g/dL 32-36 [facility] Mean platelet volume determi nationOrdered By: Shoshana Ulrich on 01-24-2025 Platelet mean volume (Bld) [Entitic vol] 12.8 fL High 6.2-12.0 [facility] No Panel InformationOrdered By: Shoshana Ulrich on 01-24-2025 25 U/L <38 [facility] Platelet countOrdered By: Paul Ulrich on 01-24-2025 Platelets (Bld) [#/Vol] 106 10*3/uL Low 150-450 [facility] Potassium measurement (mass/ volume)Ordered By: Shoshana Ulrich on 01-24-2025 Potassium (Unsp spec) [Mass/Vol] 3.5 mmol/L 3.3-5.1 [facility] RBC Auto (Bld) [#/Vol]Ordere d By: Shoshana Ulrich on 01-24-2025 RBC (Bld) [#/Vol] 3.55 10*6/uL Low 4.6-6.2 [facility] Serum creatinine measurement (mass/volume)Ordered By: Shoshana Ulrich on 01-24-2025 Creatinine [Mass/Vol] 1.81 mg/dL High 0.70-1.20 [facility] Serum globulin measurementOr dered By: Shoshana Ulrich on 01-24-2025 Globulin (S) [Mass/Vol] 2.5 g/dL 2.2-4.2 [facility] Serum glucose measurement (m ass/volume)Ordered By: Shoshana Ulrich on 01-24-2025 Glucose [Mass/Vol] 104 mg/dL High 70-99 [facility] Serum or plasma alanine tavarez otransferase (ALT) measurementOrdered By: Shoshana Ulrich on 01-24-2025 ALT [Catalytic activity/Vol] 19 U/L <47 [facility] Serum or plasma albumin marlin urement (mass/volume)Ordered By: Shoshana Ulrich on 01-24-2025 Albumin [Mass/Vol] 3.8 g/dL 3.4-4.8 [facility] Serum or plasma albumin/glob ulin mass ratioOrdered By: Shoshana Ulrich on 01-24-2025 Albumin/Globulin [Mass ratio] 1.5 {ratio} 0.9-2.4 [facility] Serum or plasma alkaline erin sphatase measurementOrdered By: Shoshana Ulrich on 01-24-2025 ALP [Catalytic activity/Vol] 57 U/L 40-129 [facility] Serum or plasma calcium marlin urement (mass/volume)Ordered By: Shoshana Ulrich on 01-24-2025 Calcium [Mass/Vol] 8.8 mg/dL 7.6-11.0 [facility] Serum or plasma urea nitroge n measurement (mass/volume)Ordered By: Shoshana Ulrich on 01-24-2025 Urea nitrogen [Mass/Vol] 43 mg/dL High 4-19 [facility] Sodium levelOrdered By: Dario Ulrich on 01-24-2025 Sodium [Moles/Vol] 137 mmol/L 133-145 [facility] TSH DL <= 0.005 mIU/L QnOrde red By: Shoshana Ulrich on 01-24-2025 TSH Qn 1.170 uIU/mL 0.300-4.200 [facility] Thyroid Stim Hormone (TSH)on 01-24-2025 TSH 1.170 uIU/mL Normal 0.300-4.200 [facility] Comment on above: Performed By: #### L 500.4050, L501.9520, L100.0500 ####[facility] [address] [place], [address] Total proteinOrdered By: Marlon Ulrich on 01-24-2025 Protein [Mass/Vol] 6.3 g/dL 5.9-8.4 [facility] White blood cell (WBC) count Ordered By: Shoshana Ulrich on 01-24-2025 WBC (Bld) [#/Vol] 5.7 10*3/uL 4.4-11.0 [facility] Urgent Care Visit Reporton 0 01-09-2025 Urgent Care Visit Report Normal [facility] MR/PAT.ANEon 01-01-2025 MR/PAT.ANE Normal [facility] Venous duplex ultrasound rep ortOrdered By: Santana Mason on 12-20-2024 US Vein [facility] [address] [place] [address] Venous Duplex US, Unilateral 12/19/24 1416 MR#: [id number] Acct: [id number] Name: DORIAN CRAMER Rep #:[id number] : [...] Mason MD CC: AARON Gonzales; Dr. Shoshana Ulirch MD ~ Date Dictated: 12/19/24 1416 Date Transcribed: 12/20/24812 Rn Medical Inpatient Services: Signed [facility] Work Phone: Venous Duplex US, Unilateral on 12-19-2024 Venous Duplex US, Unilateral Normal [facility] CNOVon 12-14-2024 CNOV Office Visit (SPNMED) -------- DORIAN CRAMER ([id number]) 1935 M Date Time Provider Department 12/14/24 12:30 PM OLGA CHRISTIANSON SPNMED During your visit today, we recorded the following information about you: Pulse Blood pressure Weight Height 75/minute 126/66 64.3 kg 1.676 m Olga Christianson PA-C 12/14/2024 1:10 PM Signed [facility] [address] [place] [address] 12/14/2024 ASSESSMENT AND PLAN: Assessment : Encounter [...] had any imaging at all here at [facility] in recent years. SUMMARY/PLAN: With his complaints [...] today with this patient visit. This includes [id number] time, review of chart records regarding conservative care history, spine-pertinent imaging, and communication/care coordination with referring provider, problem-specific history-taking and counseling/educati on regarding treatment options. cc: No referring provider defined for this encounter. Phone: N/A Fax: Results of consultation to be transmitted via electronic medical record for those providers who practice within [facility] [place] or with access to [employer] via [employer], or via letter. ################## ################## ################## ################## CHIEF COMPLAINT: Patient is here for the lower back pain, left side is more painful. Has this pain for years. Level of the pain is at 8/10. Medication helps sometimes. HPI: see Discussion above History of bowel or bladder dysfunction (not IBS or constipation): No History of previous spinal surgery: Yes, performed in 1989 at [facility]. The procedure was a L4-L5 Laminectomy. History [...] daily. omeprazole (more content not included)... Normal [facility] MR/BMS.David 11-21-2024 MR/BMS.BVS Normal [facility] Alverto 11-14-2024 CNPN Telephone (LEONWST) -------- DORIAN CRAMER ([id number]) 1935 M Date Time Provider Department 11/14/24 NEUROLOGY PROVIDER SLEWST During your visit today, we recorded the following information about you: Anastasiia Landres LPN 11/14/2024 10:35 AM Signed Phoned patient and advised him of provider's message stating he should be scheduled with Neuromuscular and not neurology. Patient given neuro scheduling desk number and he voiced understanding. EBONIE Pierce Melia 11/14/2024 11:34 AM Signed Patient contacted the office stating he contacted the Neuromuscular department and they explained to the patient they do not see for the area of the body the patient is having pain in.Patient states having pain in groin area. Please advise. 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 No answer, left detailed VM on secure line with office number for any questions. EVGENY Byrnes Lori, LPN 11/15/2024 2:08 PM Signed Spoke with nurse at [facility] and reviewed issue with referral received en neuro referred to Gen Neuro. Advised thinking that provider meant to have it referred to a more specialized neurology. She stated she thinks that is likely the case but will have Nisreen look at it Tuesday and get it corrected. Will advise patient that will follow up with [facility] Tuesday to ensure they corrected this. EBONIE Pierce Lori, LPN 11/15/2024 2:11 PM Signed Message left for patient advising of message below and that I will update him once I know more. EBONIE Pierce Lori, LPN 11/19/2024 3:18 PM Signed Noted [facility] forwarded fax requesting [facility] schedule patient with appropriate neurology dept/group. Patient contacted to be scheduled with Spine in [place]. Anastasiia Landers LPN Allergies As of Date: 11/14/2024 (Not on File) Date Reviewed: Never Reviewed Reason for Visit: Appointment [186] Cmt: Patient scheduled incorrectly as advised per provider- he advised should be with Neuromuscular. Problem List As Of Date: 11/14/2024 (None) Encounter Status:Closed by ANASTASIIA LANDERS on 11/14/24 Normal [facility] Absolute lymphocyte countOrd ered By: Alyce Gibson on 11-12-2024 Lymphocytes Auto (Unsp spec) [#/Vol] 0.68 10*3/uL Low 0.83-4.51 [facility] Absolute neutrophil countOrd ered By: Alyce Gibson on 11-12-2024 Neutrophils (Bld) [#/Vol] 4.8 10*3/uL 2.0-7.7 [facility] Automated lymphocyte count a s percentage of total leukocytesOrdered By: Alyce Gibson on 11-12-2024 Lymphocytes/100 WBC Auto (Unsp spec) 11.3 % Low 19-41 [facility] Basophil percentageOrdered B y: Alyce Gibson on 11-12-2024 Basophils/100 WBC (Bld) 0.5 % 0-1 [facility] CBC W/Diff, Automatedon - 0-2024 Absolute Lymph 0.68 X10 3/uL Low 0.83-4.51 [facility] Comment on above: Performed By: #### L 100.0100 ####[facility] [address] [place], [address] Absolute Neut 4.8 X10 3/uL Normal 2.0-7.7 [facility] Comment on above: Performed By: #### L 100.0100 ####[facility] [address] [place], [address] Basophils/100 WBC (Bld) 0.5 % Normal 0-1 [facility] Comment on above: Performed By: #### L 100.0100 ####[facility] [address] [place], [address] Eosinophils/100 WBC (Bld) 0.8 % Normal 0-5 [facility] Comment on above: Performed By: #### L 100.0100 ####[facility] [address] [place], [address] Erythrocyte distribution width (RBC) [Ratio] 15.9 % High 11.6-14.6 [facility] Comment on above: Performed By: #### L 100.0100 ####[facility] [address] [place], [address] Hematocrit (Bld) [Volume fraction] 33.6 % Low 40-54 [facility] Comment on above: Performed By: #### L 100.0100 ####[facility] [address] [place], [address] Hemoglobin (Bld) [Mass/Vol] 10.8 g/dL Low 13.0-16.5 [facility] Comment on above: Performed By: #### L 100.0100 ####[facility] [address] [place], [address] IG% 0.700 Normal 0.0-0.9 [facility] Comment on above: Result Comment: IG% - Immature Granulocytes (promyelocytes, myelocytes andmetamyelocytes) > 1% indicates that a LEFT SHIFT is Present. Performed By: #### L 100.0100 ####[facility] [address] [place], [address] Lymphocytes/100 WBC (Bld) 11.3 % Low 19-41 [facility] Comment on above: Performed By: #### L 100.0100 ####[facility] [address] [place], [address] MCH (RBC) [Entitic mass] 34.1 pg High 27.0-32.0 [facility] Comment on above: Performed By: #### L 100.0100 ####[facility] [address] [place], [address] MCHC (RBC) [Mass/Vol] 32.1 g/dL Normal 32-36 [facility] Comment on above: Performed By: #### L 100.0100 ####[facility] [address] [place], [address] MCV (RBC) [Entitic vol] 106.0 fL High 80-94 [facility] Comment on above: Performed By: #### L 100.0100 ####[facility] [address] [place], [address] Monocytes/100 WBC (Bld) 6.7 % Normal 0-10 [facility] Comment on above: Performed By: #### L 100.0100 ####[facility] [address] [place], [address] Neutrophils/100 WBC (Bld) 80.0 % High 47-70 [facility] Comment on above: Performed By: #### L 100.0100 ####[facility] [address] [place], [address] Nucleated RBC (Bld) [#/Vol] 0 10*3/uL Normal 0-5 [facility] Comment on above: Performed By: #### L 100.0100 ####[facility] [address] [place], [address] Platelet mean volume (Bld) [Entitic vol] 10.4 fL Normal 6.2-12.0 [facility] Comment on above: Performed By: #### L 100.0100 ####[facility] [address] [place], [address] Platelets (Bld) [#/Vol] 267 10*3/uL Normal 150-450 [facility] Comment on above: Performed By: #### L 100.0100 ####[facility] [address] [place], [address] RBC (Bld) [#/Vol] 3.17 10*6/uL Low 4.6-6.2 [facility] Comment on above: Performed By: #### L 100.0100 ####[facility] [address] [place], [address] RDW SD 61.3 fl High 35.1-43.9 [facility] Comment on above: Performed By: #### L 100.0100 ####[facility] [address] [place], [address] WBC (Bld) [#/Vol] 6.0 10*3/uL Normal 4.4-11.0 [facility] Comment on above: Performed By: #### L 100.0100 ####[facility] [address] [place], [address] Eosinophil percentageOrdered By: Alyce Gibson on 11-12-2024 Eosinophils/100 WBC (Bld) 0.8 % 0-5 [facility] Erythrocyte distribution wid th ratioOrdered By: Alyce Gibson on 11-12-2024 Erythrocyte distribution width (RBC) [Ratio] 15.9 % High 11.6-14.6 [facility] Erythrocyte distribution wid th standard deviationOrdered By: Alycequincy Gibson on 11-12-2024 Erythrocyte distribution width (RBC) [Ratio] 61.3 fl High 35.1-43.9 [facility] Hematocrit Auto (Bld) [Volum e fraction]Ordered By: Alyce Gibson on 11-12-2024 Hematocrit (Bld) [Volume fraction] 33.6 % Low 40-54 [facility] Hemoglobin measurementOrdere d By: Alyce Gibson on 11-12-2024 Hemoglobin (Bld) [Mass/Vol] 10.8 g/dL Low 13.0-16.5 [facility] Immature granulocytes/100 WB C Auto (Bld)Ordered By: Alyce Gibson on 11-12-2024 Immature granulocytes/100 WBC (Bld) 0.700 % 0.0-0.9 [facility] Comment on above: IG% - Immature Granu locytes (promyelocytes, myelocytes and metamyelocytes) > 1% indicates that a LEFT SHIFT is Present. MCV (mean corpuscular volume ) determinationOrdered By: Alyce Gibson on 11-12-2024 MCV (RBC) [Entitic vol] 106.0 fL High 80-94 [facility] Mean corpuscular hemoglobin (MCH) determinationOrdered By: Alyce Gibson on 11-12-2024 MCH (RBC) [Entitic mass] 34.1 pg High 27.0-32.0 [facility] Mean corpuscular hemoglobin concentration (MCHC) determinationOrdered By: Alyce Gibson on 11-12-2024 MCHC (RBC) [Mass/Vol] 32.1 g/dL 32-36 [facility] Mean platelet volume determi nationOrdered By: Alyce Gibson on 11-12-2024 Platelet mean volume (Bld) [Entitic vol] 10.4 fL 6.2-12.0 [facility] Monocyte percentageOrdered B y: Alyce Gibson on 11-12-2024 Monocytes/100 WBC (Bld) 6.7 % 0-10 [facility] Neutrophil percentageOrdered By: Alyce Gibson on 11-12-2024 Neutrophils/100 WBC (Bld) 80.0 % High 47-70 [facility] Nucleated red blood cell per centageOrdered By: Alyce Gibson on 11-12-2024 Nucleated RBC/100 WBC (Bld) [Ratio] 0 % 0-5 [facility] Platelet countOrdered By: Ra ginger Gibson on 11-12-2024 Platelets (Bld) [#/Vol] 267 10*3/uL 150-450 [facility] RBC Auto (Bld) [#/Vol]Ordere d By: Alyce Gibson on 11-12-2024 RBC (Bld) [#/Vol] 3.17 10*6/uL Low 4.6-6.2 [facility] White blood cell (WBC) count Ordered By: Alyce Gibson on 11-12-2024 WBC (Bld) [#/Vol] 6.0 10*3/uL 4.4-11.0 [facility] Discharge Instructionon 10-15 Discharge Instruction Normal [facility] Absolute lymphocyte countOrd ered By: Daniel Neal on 11-05-2024 Lymphocytes Auto (Unsp spec) [#/Vol] 0.80 10*3/uL Low 0.83-4.51 [facility] Absolute neutrophil countOrd ered By: Daniel Neal on 11-05-2024 Neutrophils (Bld) [#/Vol] 3.4 10*3/uL 2.0-7.7 [facility] Activated partial thrombopla stin time (aPTT) in platelet poor plasma by coagulation aOrdered By: Daniel Nael on 11-05-2024 aPTT Coag (PPP) [Time] 68.6 s High 24.1-36.2 [facility] Automated lymphocyte count a s percentage of total leukocytesOrdered By: Daniel Ignacioraeannfabby on 11-05-2024 Lymphocytes/100 WBC Auto (Unsp spec) 17.0 % Low 19-41 [facility] Basophil percentageOrdered B y: Daniel Neal on 11-05-2024 Basophils/100 WBC (Bld) 0.4 % 0-1 [facility] CBC W/Diff, Automatedon 10-15 Absolute Lymph 0.80 X10 3/uL Low 0.83-4.51 [facility] Comment on above: Performed By: #### L 100.0100 ####[facility] [address] [place], [address] Absolute Neut 3.4 X10 3/uL Normal 2.0-7.7 [facility] Comment on above: Performed By: #### L 100.0100 ####[facility] [address] [place], [address] Basophils/100 WBC (Bld) 0.4 % Normal 0-1 [facility] Comment on above: Performed By: #### L 100.0100 ####[facility] [address] [place], [address] Eosinophils/100 WBC (Bld) 2.5 % Normal 0-5 [facility] Comment on above: Performed By: #### L 100.0100 ####[facility] [address] [place], [address] Erythrocyte distribution width (RBC) [Ratio] 16.0 % High 11.6-14.6 [facility] Comment on above: Performed By: #### L 100.0100 ####[facility] [address] [place], [address] Hematocrit (Bld) [Volume fraction] 28.2 % Low 40-54 [facility] Comment on above: Performed By: #### L 100.0100 ####[facility] [address] [place], [address] Hemoglobin (Bld) [Mass/Vol] 9.5 g/dL Low 13.0-16.5 [facility] Comment on above: Performed By: #### L 100.0100 ####[facility] [address] [place], [address] IG% 1.100 High 0.0-0.9 [facility] Comment on above: Result Comment: IG% - Immature Granulocytes (promyelocytes, myelocytes andmetamyelocytes) > 1% indicates that a LEFT SHIFT is Present. Performed By: #### L 100.0100 ####[facility] [address] [place], [address] Lymphocytes/100 WBC (Bld) 17.0 % Low 19-41 [facility] Comment on above: Performed By: #### L 100.0100 ####[facility] [address] [place], [address] MCH (RBC) [Entitic mass] 34.4 pg High 27.0-32.0 [facility] Comment on above: Performed By: #### L 100.0100 ####[facility] [address] [place], [address] MCHC (RBC) [Mass/Vol] 33.7 g/dL Normal 32-36 [facility] Comment on above: Performed By: #### L 100.0100 ####[facility] [address] [place], [address] MCV (RBC) [Entitic vol] 102.2 fL High 80-94 [facility] Comment on above: Performed By: #### L 100.0100 ####[facility] [address] [place], [address] Monocytes/100 WBC (Bld) 7.4 % Normal 0-10 [facility] Comment on above: Performed By: #### L 100.0100 ####[facility] [address] [place], [address] Neutrophils/100 WBC (Bld) 71.6 % High 47-70 [facility] Comment on above: Performed By: #### L 100.0100 ####[facility] [address] [place], [address] Nucleated RBC (Bld) [#/Vol] 0 10*3/uL Normal 0-5 [facility] Comment on above: Performed By: #### L 100.0100 ####[facility] [address] [place], [address] Platelet mean volume (Bld) [Entitic vol] 10.2 fL Normal 6.2-12.0 [facility] Comment on above: Performed By: #### L 100.0100 ####[facility] [address] [place], [address] Platelets (Bld) [#/Vol] 172 10*3/uL Normal 150-450 [facility] Comment on above: Performed By: #### L 100.0100 ####[facility] [address] [place], [address] RBC (Bld) [#/Vol] 2.76 10*6/uL Low 4.6-6.2 [facility] Comment on above: Performed By: #### L 100.0100 ####[facility] [address] [place], [place], [address] RDW SD 60.4 fl High 35.1-43.9 [facility] Comment on above: Performed By: #### L 100.0100 ####[facility] [address] [place], [place], [phone] WBC (Bld) [#/Vol] 4.7 10*3/uL Normal 4.4-11.0 [facility] Comment on above: Performed By: #### L 100.0100 ####[facility] [address] [facility] [address] [place], [place], [phone] Calculated very low density lipoprotein (VLDL) cholesterol measurementOrdered By: Daniel Neal on 11-05-2024 Calculated very low density lipoprotein (VLDL) cholesterol measurement 18 mg/dL 5-40 [facility] Consultation - Surgicalon Consultation - Surgical Normal [facility] Eosinophil percentageOrdered By: Daniel Neal on 11-05-2024 Eosinophils/100 WBC (Bld) 2.5 % 0-5 [facility] Erythrocyte distribution wid th ratioOrdered By: Daniel Neal on 11-05-2024 Erythrocyte distribution width (RBC) [Ratio] 16.0 % High 11.6-14.6 [facility] Erythrocyte distribution wid th standard deviationOrdered By: Daniel Neal on 11-05-2024 Erythrocyte distribution width (RBC) [Ratio] 60.4 fl High 35.1-43.9 [facility] Hematocrit Auto (Bld) [Volum e fraction]Ordered By: Daniel Neal on 11-05-2024 Hematocrit (Bld) [Volume fraction] 28.2 % Low 40-54 [facility] Hemoglobin measurementOrdere d By: Daniel Neal on 11-05-2024 Hemoglobin (Bld) [Mass/Vol] 9.5 g/dL Low 13.0-16.5 [facility] Immature granulocytes/100 WB C Auto (Bld)Ordered By: Daniel Neal on 11-05-2024 Immature granulocytes/100 WBC (Bld) 1.100 % High 0.0-0.9 [facility] Comment on above: IG% - Immature Granu locytes (promyelocytes, myelocytes and metamyelocytes) > 1% indicates that a LEFT SHIFT is Present. LDL calc ser/plasOrdered By: Daniel Neal on 11-05-2024 Cholesterol in LDL [Mass/Vol] 104 mg/dL [facility] Comment on above: Jybwhfhljn=136-830 m g/dL & Higher Faeb=709 mg/dL or greater Lipid Profileon 11-05-2024 CHOL:HDL 2.87 Normal [facility] Comment on above: Performed By: #### L 500.4100 ####[facility] [address] [place], [place], [phone] Cholesterol [Mass/Vol] 187 mg/dL Normal <=200 [facility] Comment on above: Result Comment: Chol esterol level, Desirable <200 mg/dLBorderline high cholesterol 200-239 mg/dLHigh cholesterol >=240 mg/dLRecommendations of the NCEP Adult Treatment Panel for thefollowing risk-cutoff thresholds for the [place] [facility]. Performed By: #### L 500.4100 ####[facility] [address] [facility] [phone] Cholesterol in HDL [Mass/Vol] 65 mg/dL Normal [facility] Comment on above: Result Comment: Juany onal Cholesterol Education Program (NCEP) guidelines:<40 mg/dL: Low HDL-cholesterol (major risk factor for CHD)>= 60 mg/dL: High HDL-cholesterol (negative risk factor forCHD)HDL-cholesterol is affected by a number of factors, e.g.smoking, exercise, hormones, sex and age. Performed By: #### L 500.4100 ####[facility] [address] [place], [place], [phone] Cholesterol in LDL [Mass/Vol] 104 mg/dL Normal [facility] Comment on above: Result Comment: Bord esjpwb=595-640 mg/dL Higher Vxiu=638 mg/dL or greater Performed By: #### L 500.4100 ####[facility] [address] [place], [place], [address] Cholesterol in VLDL [Mass/Vol] 18 mg/dL Normal 5-40 [facility] Comment on above: Performed By: #### L 500.4100 ####[facility] [address] [place], [place], [address] Triglyceride [Mass/Vol] 89 mg/dL Normal [facility] Comment on above: Result Comment: The drugs N-Acetylcysteine and Metamizole may falselydepress this assay.Normal range: <150 mg/dLBorderline High: 150-199 mg/dLHigh: 200-499 mg/dLVery High: >500 mg/dL Performed By: #### L 500.4100 ####[facility] [address] [place], [place], [address] MCV (mean corpuscular volume ) determinationOrdered By: Daniel Neal on 11-05-2024 MCV (RBC) [Entitic vol] 102.2 fL High 80-94 [facility] Mean corpuscular hemoglobin (MCH) determinationOrdered By: Daniel Neal on 11-05-2024 MCH (RBC) [Entitic mass] 34.4 pg High 27.0-32.0 [facility] Mean corpuscular hemoglobin concentration (MCHC) determinationOrdered By: Daniel Neal on 11-05-2024 MCHC (RBC) [Mass/Vol] 33.7 g/dL 32-36 [facility] Mean platelet volume determi nationOrdered By: Daniel Neal on 11-05-2024 Platelet mean volume (Bld) [Entitic vol] 10.2 fL 6.2-12.0 [facility] Monocyte percentageOrdered B y: Daniel Neal on 11-05-2024 Monocytes/100 WBC (Bld) 7.4 % 0-10 [facility] Neutrophil percentageOrdered By: Daniel Neal on 11-05-2024 Neutrophils/100 WBC (Bld) 71.6 % High 47-70 [facility] Nucleated red blood cell per centageOrdered By: Daniel Neal on 11-05-2024 Nucleated RBC/100 WBC (Bld) [Ratio] 0 % 0-5 [facility] Operative Reporton Operative Report Normal [facility] Partial Thromboplast Timeon 11-05-2024 aPTT Coag (Bld) [Time] 68.6 s High 24.1-36.2 [facility] Comment on above: Performed By: #### L 300.4310 ####[facility] [address] [place], [address] aPTT Coag (Bld) [Time] 79.5 s High 24.1-36.2 [facility] Comment on above: Performed By: #### L 300.4310 ####[facility] [address] [place], [place], [phone] Platelet countOrdered By: Ethan Neal on 11-05-2024 Platelets (Bld) [#/Vol] 172 10*3/uL 150-450 [facility] RBC Auto (Bld) [#/Vol]Ordere d By: Daniel Neal on 11-05-2024 RBC (Bld) [#/Vol] 2.76 10*6/uL Low 4.6-6.2 [facility] Screening total cholesterol/ high density lipoprotein (HDL) cholesterol ratioOrdered By: Daniel Neal on 11-05-2024 Cholesterol.total/Choles terol in HDL [Mass ratio] 2.87 {ratio} [facility] Serum or plasma cholesterol in HDL measurement (mass/volume)Ordered By: Daniel Neal on 11-05-2024 Cholesterol in HDL [Mass/Vol] 65 mg/dL >40 [facility] Comment on above: National Cholesterol Education Program (NCEP) guidelines:<40 mg/dL: Low HDL-cholesterol (major risk factor for CHD)>= 60 mg/dL: High HDL-cholesterol (negative risk factor for CHD)HDL-cholesterol is affected by a number of factors, e.g. smoking, exercise, hormones, sex and age. Serum or plasma cholesterol measurement (mass/volume)Ordered By: Daniel Neal on 11-05-2024 Cholesterol [Mass/Vol] 187 mg/dL <201 [facility] Comment on above: Cholesterol level, D esirable <200 mg/dLBorderline high cholesterol 200-239 mg/dLHigh cholesterol >=240 mg/dLRecommendations of the NCEP Adult Treatment Panel for the following risk-cutoff thresholds for the [place] population. Triglycerides measurementOrd ered By: Daniel Neal on 11-05-2024 Triglyceride [Mass/Vol] 89 mg/dL <199 [facility] Comment on above: The drugs N-Acetylcy steine and Metamizole may falsely depress this assay. Normal range: <150 mg/dLBorderline High: 150-199 mg/dLHigh: 200-499 mg/dLVery High: >500 mg/dL Venous duplex ultrasound rep ortOrdered By: Santana Mason on 11-05-2024 [facility] [address] [place] [address] Venous Duplex US - Omar Extrem 11/04/24 1244 MR#: [id number] Acct: [id number] Name: DORIAN CRAMER Rep #:[id number] : 1935 89 From: Santana Clark Attending Dr: Dr. Daniel Neal DO Status: ADM IN Ordering Dr: Daniel Neal DO Date: 11/04/24 Location: [facility] Sex: M C Admitted: 11/03/24 Reason For [...] Alyce Loredo, KRISHNA, RVT 11/05/24 1700 Date _ Santana Mason MD CC: Dr. Rand Rollins DO; Dr. Shoshana Ulrich MD; Dr. Daniel Neal, DO ~ Date Dictated: 11/04/24 1244 Date Transcribed: 11/05/241699 Rn Medical Inpatient Services: Signed [facility] Work Phone: White blood cell (WBC) count Ordered By: Daniel Neal on 11-05-2024 WBC (Bld) [#/Vol] 4.7 10*3/uL 4.4-11.0 [facility] Anion gap in Serum or Plasma Ordered By: Rylie Arreaga on 11-04-2024 Anion gap [Moles/Vol] 8 mmol/L 09-27 [facility] BUN/creatinine ratioOrdered By: Rylie Arreaga on 11-04-2024 Urea nitrogen/Creatinine [Mass ratio] 19.5 mg/mg 03-04 [facility] Basic Metabolic Profile (BMP )on 11-04-2024 BUN/CRE 19.5 RATIO Normal 03-04 [facility] Comment on above: Performed By: #### L 500.2500, L100.0500 ####[facility] [address] [place], [address] Calcium [Mass/Vol] 8.3 mg/dL Normal 7.6-11.0 [facility] Comment on above: Performed By: #### L 500.2500, L100.0500 ####[facility] [address] [place], [address] Chloride [Moles/Vol] 98 mmol/L Normal 98-108 [facility] Comment on above: Performed By: #### L 500.2500, L100.0500 ####[facility] [address] [place], [address] CO2 [Moles/Vol] 27.2 mmol/L Normal 21.0-32.0 [facility] Comment on above: Performed By: #### L 500.2500, L100.0500 ####[facility] [address] [place], [address] Creatinine [Mass/Vol] 1.08 mg/dL Normal 0.70-1.20 [facility] Comment on above: Performed By: #### L 500.2500, L100.0500 ####[facility] [address] [place], [address] ECRCL 41.92 ml/min Low 50-250 [facility] Comment on above: Performed By: #### L 500.2500, L100.0500 ####[facility] [address] [place], [address] GAP 8 Normal 5-15 [facility] Comment on above: Performed By: #### L 500.2500, L100.0500 ####[facility] [address] [place], [address] GFR/1.73 sq M.predicted among non-blacks MDRD (S/P/Bld) [Vol rate/Area] 66 mL/min/{1.73_m2} Normal >60 [facility] Comment on above: Result Comment: mL/m in/1.73m2 CKD-EPI Creatinine Equation (2020) Performed By: #### L 500.2500, L100.0500 ####[facility] [address] [place], [address] Glucose [Mass/Vol] 96 mg/dL Normal 70-99 [facility] Comment on above: Performed By: #### L 500.2500, L100.0500 ####[facility] [address] [place], [address] Potassium [Moles/Vol] 4.4 mmol/L Normal 3.3-5.1 [facility] Comment on above: Performed By: #### L 500.2500, L100.0500 ####[facility] [address] [place], [address] Sodium [Moles/Vol] 133 mmol/L Normal 133-145 [facility] Comment on above: Performed By: #### L 500.2500, L100.0500 ####[facility] [address] [place], [address] Urea nitrogen [Mass/Vol] 21 mg/dL High 4-19 [facility] Comment on above: Performed By: #### L 500.2500, L100.0500 ####[facility] [address] [place], [address] CBC W/Diff, Automatedon 06-2 -2024 Absolute Lymph 0.71 X10 3/uL Low 0.83-4.51 [facility] Comment on above: Performed By: #### L 100.0100 ####[facility] [address] [place], [address] Absolute Neut 3.8 X10 3/uL Normal 2.0-7.7 [facility] Comment on above: Performed By: #### L 100.0100 ####[facility] [address] [place], [address] Basophils/100 WBC (Bld) 0.4 % Normal 0-1 [facility] Comment on above: Performed By: #### L 100.0100 ####[facility] [address] [place], [address] Eosinophils/100 WBC (Bld) 2.3 % Normal 0-5 [facility] Comment on above: Performed By: #### L 100.0100 ####[facility] [address] [place], [address] Erythrocyte distribution width (RBC) [Ratio] 16.0 % High 11.6-14.6 [facility] Comment on above: Performed By: #### L 100.0100 ####[facility] [address] [place], [address] Hematocrit (Bld) [Volume fraction] 29.2 % Low 40-54 [facility] Comment on above: Performed By: #### L 100.0100 ####[facility] [address] [place], [address] Hemoglobin (Bld) [Mass/Vol] 9.6 g/dL Low 13.0-16.5 [facility] Comment on above: Performed By: #### L 100.0100 ####[facility] [address] [place], [address] IG% 1.200 High 0.0-0.9 [facility] Comment on above: Result Comment: IG% - Immature Granulocytes (promyelocytes, myelocytes andmetamyelocytes) > 1% indicates that a LEFT SHIFT is Present. Performed By: #### L 100.0100 ####[facility] [address] [place], [address] Lymphocytes/100 WBC (Bld) 13.8 % Low 19-41 [facility] Comment on above: Performed By: #### L 100.0100 ####[facility] [address] [place], [address] MCH (RBC) [Entitic mass] 33.8 pg High 27.0-32.0 [facility] Comment on above: Performed By: #### L 100.0100 ####[facility] [address] [place], [address] MCHC (RBC) [Mass/Vol] 32.9 g/dL Normal 32-36 [facility] Comment on above: Performed By: #### L 100.0100 ####[facility] [address] [place], [address] MCV (RBC) [Entitic vol] 102.8 fL High 80-94 [facility] Comment on above: Performed By: #### L 100.0100 ####[facility] [address] [place], [address] Monocytes/100 WBC (Bld) 7.6 % Normal 0-10 [facility] Comment on above: Performed By: #### L 100.0100 ####[facility] [address] [place], [address] Neutrophils/100 WBC (Bld) 74.7 % High 47-70 [facility] Comment on above: Performed By: #### L 100.0100 ####[facility] [address] [place], [address] Nucleated RBC (Bld) [#/Vol] 0 10*3/uL Normal 0-5 [facility] Comment on above: Performed By: #### L 100.0100 ####[facility] [address] [place], [address] Platelet mean volume (Bld) [Entitic vol] 10.4 fL Normal 6.2-12.0 [facility] Comment on above: Performed By: #### L 100.0100 ####[facility] [address] [place], [address] Platelets (Bld) [#/Vol] 183 10*3/uL Normal 150-450 [facility] Comment on above: Performed By: #### L 100.0100 ####[facility] [address] [place], [address] RBC (Bld) [#/Vol] 2.84 10*6/uL Low 4.6-6.2 [facility] Comment on above: Performed By: #### L 100.0100 ####[facility] [address] [place], [address] RDW SD 61.1 fl High 35.1-43.9 [facility] Comment on above: Performed By: #### L 100.0100 ####[facility] [address] [place], [address] WBC (Bld) [#/Vol] 5.1 10*3/uL Normal 4.4-11.0 [facility] Comment on above: Performed By: #### L 100.0100 ####[facility] [address] [place], [address] CBC-Complete Blood Cnt No Di ffon 11-04-2024 Erythrocyte distribution width (RBC) [Ratio] 16.4 % High 11.6-14.6 [facility] Comment on above: Performed By: #### L 500.2500, L100.0500 ####[facility] [address] [place], [address] Hematocrit (Bld) [Volume fraction] 30.6 % Low 40-54 [facility] Comment on above: Performed By: #### L 500.2500, L100.0500 ####[facility] [address] [place], [address] Hemoglobin (Bld) [Mass/Vol] 10.2 g/dL Low 13.0-16.5 [facility] Comment on above: Performed By: #### L 500.2500, L100.0500 ####[facility] [address] [place], [address] MCH (RBC) [Entitic mass] 34.6 pg High 27.0-32.0 [facility] Comment on above: Performed By: #### L 500.2500, L100.0500 ####[facility] [address] [place], [address] MCHC (RBC) [Mass/Vol] 33.3 g/dL Normal 32-36 [facility] Comment on above: Performed By: #### L 500.2500, L100.0500 ####[facility] [address] [place], [address] MCV (RBC) [Entitic vol] 103.7 fL High 80-94 [facility] Comment on above: Performed By: #### L 500.2500, L100.0500 ####[facility] [address] [place], [address] Platelet mean volume (Bld) [Entitic vol] 10.5 fL Normal 6.2-12.0 [facility] Comment on above: Performed By: #### L 500.2500, L100.0500 ####[facility] [address] [place], [address] Platelets (Bld) [#/Vol] 182 10*3/uL Normal 150-450 [facility] Comment on above: Performed By: #### L 500.2500, L100.0500 ####[facility] [address] [place], [address] RBC (Bld) [#/Vol] 2.95 10*6/uL Low 4.6-6.2 [facility] Comment on above: Performed By: #### L 500.2500, L100.0500 ####[facility] [address] [place], [address] RDW SD 62.0 fl High 35.1-43.9 [facility] Comment on above: Performed By: #### L 500.2500, L100.0500 ####[facility] [address] [place], [address] WBC (Bld) [#/Vol] 5.3 10*3/uL Normal 4.4-11.0 [facility] Comment on above: Performed By: #### L 500.2500, L100.0500 ####[facility] [address] [place], [address] Carbon dioxide, total [Moles /volume] in Central venous bloodOrdered By: Rylie Arreaga on 11-04-2024 CO2 [Moles/Vol] 27.2 mmol/L 21.0-32.0 [facility] Chloride assayOrdered By: Aaron Arreaga on 11-04-2024 Chloride [Moles/Vol] 98 mmol/L 98-108 [facility] Glomerular filtration rate ( GFR) estimation/1.73 sq m using serum, plasma, or whole bOrdered By: Rylie Arreaga on 11-04-2024 GFR/1.73 sq M.predicted among non-blacks MDRD (S/P/Bld) [Vol rate/Area] 66 mL/min/{1.73_m2} >60 [facility] Comment on above: mL/min/1.73m2 CKD-EP I Creatinine Equation (2020) International normalized rat io (INR) calculationOrdered By: Daniel Neal on 11-04-2024 INR Coag (Bld) [Relative time] 0.9 {INR} [facility] Partial Thromboplast Timeon 11-04-2024 aPTT Coag (Bld) [Time] 62.0 s High 24.1-36.2 [facility] Comment on above: Performed By: #### L 300.4310 ####[facility] [address] [place], [place], [phone] aPTT Coag (Bld) [Time] 24.9 s Normal 24.1-36.2 [facility] Comment on above: Performed By: #### L 300.4310 ####[facility] [address] [place], [place], [phone] Potassium measurement (mass/ volume)Ordered By: Rylie Arreaga on 11-04-2024 Potassium (Unsp spec) [Mass/Vol] 4.4 mmol/L 3.3-5.1 [facility] Prothrombin Time w/INRon INR Coag (PPP) [Relative time] 0.9 {INR} Normal [facility] Comment on above: Order Comment: Comme nts: please add on to labs already draWn Performed By: #### L 300.3900 ####[facility] [address] [place], [place], [phone] Prothrombin timeOrdered By: Daniel Neal on 11-04-2024 PT Coag (PPP) [Time] 12.4 s Normal 11.7-14.9 [facility] Comment on above: Order Comment: Comme nts: please add on to labs already draWn Performed By: #### L 300.3900 ####[facility] [address] [place], [place], [id number] Serum creatinine measurement (mass/volume)Ordered By: Rylie Arreaga on 11-04-2024 Creatinine [Mass/Vol] 1.08 mg/dL 0.70-1.20 [facility] Serum glucose measurement (m ass/volume)Ordered By: Rylie Arreaga on 11-04-2024 Glucose [Mass/Vol] 96 mg/dL 70-99 [facility] Serum or plasma calcium marlin urement (mass/volume)Ordered By: Rylie Arreaga on 11-04-2024 Calcium [Mass/Vol] 8.3 mg/dL 7.6-11.0 [facility] Serum or plasma urea nitroge n measurement (mass/volume)Ordered By: Rylie Arreaga on 11-04-2024 Urea nitrogen [Mass/Vol] 21 mg/dL High 4-19 [facility] Sodium levelOrdered By: Bo Arreaga on 11-04-2024 Sodium [Moles/Vol] 133 mmol/L 133-145 [facility] Venous Duplex US - Omar Extre mon 11-04-2024 Venous Duplex US - Omar Extrem Normal [facility] Basic Metabolic Profile (BMP )on 11-03-2024 BUN/CRE 20.4 RATIO High 10-20 [facility] Comment on above: Performed By: #### L 500.2500, L100.0500 ####[facility] [address] [place], [address] Calcium [Mass/Vol] 8.2 mg/dL Normal 7.6-11.0 [facility] Comment on above: Performed By: #### L 500.2500, L100.0500 ####[facility] [address] [place], [address] Chloride [Moles/Vol] 104 mmol/L Normal 98-108 [facility] Comment on above: Performed By: #### L 500.2500, L100.0500 ####[facility] [address] [place], [address] CO2 [Moles/Vol] 25.7 mmol/L Normal 21.0-32.0 [facility] Comment on above: Performed By: #### L 500.2500, L100.0500 ####[facility] [address] [place], [address] Creatinine [Mass/Vol] 1.18 mg/dL Normal 0.70-1.20 [facility] Comment on above: Performed By: #### L 500.2500, L100.0500 ####[facility] [address] [place], [address] ECRCL 38.37 ml/min Low 50-250 [facility] Comment on above: Performed By: #### L 500.2500, L100.0500 ####[facility] [address] [place], [address] GAP 7 Normal 5-15 [facility] Comment on above: Performed By: #### L 500.2500, L100.0500 ####[facility] [address] [place], [address] GFR/1.73 sq M.predicted among non-blacks MDRD (S/P/Bld) [Vol rate/Area] 60 mL/min/{1.73_m2} Normal >60 [facility] Comment on above: Result Comment: mL/m in/1.73m2 CKD-EPI Creatinine Equation (2020) Performed By: #### L 500.2500, L100.0500 ####[facility] [address] [place], [address] Glucose [Mass/Vol] 116 mg/dL High 70-99 [facility] Comment on above: Performed By: #### L 500.2500, L100.0500 ####[facility] [address] [place], [address] Potassium [Moles/Vol] 4.9 mmol/L Normal 3.3-5.1 [facility] Comment on above: Performed By: #### L 500.2500, L100.0500 ####[facility] [address] [place], [address] Sodium [Moles/Vol] 137 mmol/L Normal 133-145 [facility] Comment on above: Performed By: #### L 500.2500, L100.0500 ####[facility] [address] [place], [address] Urea nitrogen [Mass/Vol] 24 mg/dL High 4-19 [facility] Comment on above: Performed By: #### L 500.2500, L100.0500 ####[facility] [address] [place], [address] CBC-Complete Blood Cnt No Sarika hidalgo 11-03-2024 Erythrocyte distribution width (RBC) [Ratio] 17.0 % High 11.6-14.6 [facility] Comment on above: Performed By: #### L 500.2500, L100.0500 ####[facility] [address] [place], [address] Hematocrit (Bld) [Volume fraction] 27.4 % Low 40-54 [facility] Comment on above: Performed By: #### L 500.2500, L100.0500 ####[facility] [address] [place], [address] Hemoglobin (Bld) [Mass/Vol] 9.3 g/dL Low 13.0-16.5 [facility] Comment on above: Performed By: #### L 500.2500, L100.0500 ####[facility] [address] [place], [address] MCH (RBC) [Entitic mass] 34.8 pg High 27.0-32.0 [facility] Comment on above: Performed By: #### L 500.2500, L100.0500 ####[facility] [address] [place], [address] MCHC (RBC) [Mass/Vol] 33.9 g/dL Normal 32-36 [facility] Comment on above: Performed By: #### L 500.2500, L100.0500 ####[facility] [address] [place], [address] MCV (RBC) [Entitic vol] 102.6 fL High 80-94 [facility] Comment on above: Performed By: #### L 500.2500, L100.0500 ####[facility] [address] [place], [address] Platelet mean volume (Bld) [Entitic vol] 9.8 fL Normal 6.2-12.0 [facility] Comment on above: Performed By: #### L 500.2500, L100.0500 ####[facility] [address] [place], [address] Platelets (Bld) [#/Vol] 164 10*3/uL Normal 150-450 [facility] Comment on above: Performed By: #### L 500.2500, L100.0500 ####[facility] [address] [place], [address] RBC (Bld) [#/Vol] 2.67 10*6/uL Low 4.6-6.2 [facility] Comment on above: Performed By: #### L 500.2500, L100.0500 ####[facility] [address] [place], [address] RDW SD 63.1 fl High 35.1-43.9 [facility] Comment on above: Performed By: #### L 500.2500, L100.0500 ####[facility] [address] [place], [address] WBC (Bld) [#/Vol] 5.1 10*3/uL Normal 4.4-11.0 [facility] Comment on above: Performed By: #### L 500.2500, L100.0500 ####[facility] [address] [place], [address] Abdomen/Pelvis W IV Cont ONL Yon 11-02-2024 Abdomen/Pelvis W IV Cont ONLY Normal [facility] Absolute lymphocyte countOrd ered By: Manju Zhong on 11-02-2024 Lymphocytes Auto (Unsp spec) [#/Vol] 0.34 10*3/uL Low 0.83-4.51 [facility] Absolute neutrophil countOrd ered By: Manju Zhong on 11-02-2024 Neutrophils (Bld) [#/Vol] 6.6 10*3/uL 2.0-7.7 [facility] Anion gap in Serum or Plasma Ordered By: Manju Zhong on 11-02-2024 Anion gap [Moles/Vol] 10 mmol/L 5-15 [facility] Automated lymphocyte count a s percentage of total leukocytesOrdered By: Manju Zhong on 11-02-2024 Lymphocytes/100 WBC Auto (Unsp spec) 4.5 % Low 19-41 [facility] BUN/creatinine ratioOrdered By: Manju Zhong on 11-02-2024 Urea nitrogen/Creatinine [Mass ratio] 21.3 mg/mg High 10-20 [facility] Basic Metabolic Profile (BMP )on 11-02-2024 BUN/CRE 21.3 RATIO High 03-04 [facility] Comment on above: Performed By: #### L 500.2500, L503.6005, L100.0100 ####[facility] [address] [place], [address] Calcium [Mass/Vol] 8.9 mg/dL Normal 7.6-11.0 [facility] Comment on above: Performed By: #### L 500.2500, L503.6005, L100.0100 ####[facility] [address] [place], [address] Chloride [Moles/Vol] 103 mmol/L Normal 98-108 [facility] Comment on above: Performed By: #### L 500.2500, L503.6005, L100.0100 ####[facility] [address] [place], [address] CO2 [Moles/Vol] 27.6 mmol/L Normal 21.0-32.0 [facility] Comment on above: Performed By: #### L 500.2500, L503.6005, L100.0100 ####[facility] [address] [place], [address] Creatinine [Mass/Vol] 1.19 mg/dL Normal 0.70-1.20 [facility] Comment on above: Performed By: #### L 500.2500, L503.6005, L100.0100 ####[facility] [address] [place], [address] ECRCL 40.83 ml/min Low 50-250 [facility] Comment on above: Performed By: #### L 500.2500, L503.6005, L100.0100 ####[facility] [address] [place], [address] GAP 10 Normal 5-15 [facility] Comment on above: Performed By: #### L 500.2500, L503.6005, L100.0100 ####[facility] [address] [place], [address] GFR/1.73 sq M.predicted among non-blacks MDRD (S/P/Bld) [Vol rate/Area] 59 mL/min/{1.73_m2} Low >60 [facility] Comment on above: Result Comment: mL/m in/1.73m2 CKD-EPI Creatinine Equation (2020) Performed By: #### L 500.2500, L503.6005, L100.0100 ####[facility] [address] [place], [address] Glucose [Mass/Vol] 125 mg/dL High 70-99 [facility] Comment on above: Performed By: #### L 500.2500, L503.6005, L100.0100 ####[facility] [address] [place], [address] Potassium [Moles/Vol] 4.4 mmol/L Normal 3.3-5.1 [facility] Comment on above: Performed By: #### L 500.2500, L503.6005, L100.0100 ####[facility] [address] [place], [address] Sodium [Moles/Vol] 141 mmol/L Normal 133-145 [facility] Comment on above: Performed By: #### L 500.2500, L503.6005, L100.0100 ####[facility] [address] [place], [address] Urea nitrogen [Mass/Vol] 25 mg/dL High 4-19 [facility] Comment on above: Performed By: #### L 500.2500, L503.6005, L100.0100 ####[facility] [address] [place], [address] Basophil percentageOrdered B y: Manju Trevin on 11-02-2024 Basophils/100 WBC (Bld) 0.1 % 0-1 [facility] Bilirubin Test strip Ql (U)O rdered By: Manjurosaura Zhong on 11-02-2024 Bilirubin Ql (U) Negative Negative [facility] CBC W/Diff, Automatedon 10-15-2024 Absolute Lymph 0.34 X10 3/uL Low 0.83-4.51 [facility] Comment on above: Performed By: #### L 500.2500, L503.6005, L100.0100 ####[facility] [address] [place], [address] Absolute Neut 6.6 X10 3/uL Normal 2.0-7.7 [facility] Comment on above: Performed By: #### L 500.2500, L503.6005, L100.0100 ####[facility] [address] [place], [address] Basophils/100 WBC (Bld) 0.1 % Normal 0-1 [facility] Comment on above: Performed By: #### L 500.2500, L503.6005, L100.0100 ####[facility] [address] [place], [address] Eosinophils/100 WBC (Bld) 0.0 % Normal 0-5 [facility] Comment on above: Performed By: #### L 500.2500, L503.6005, L100.0100 ####[facility] [address] [place], [address] Erythrocyte distribution width (RBC) [Ratio] 16.7 % High 11.6-14.6 [facility] Comment on above: Performed By: #### L 500.2500, L503.6005, L100.0100 ####[facility] [address] [place], [address] Hematocrit (Bld) [Volume fraction] 34.0 % Low 40-54 [facility] Comment on above: Performed By: #### L 500.2500, L503.6005, L100.0100 ####[facility] [address] [place], [address] Hemoglobin (Bld) [Mass/Vol] 11.4 g/dL Low 13.0-16.5 [facility] Comment on above: Performed By: #### L 500.2500, L503.6005, L100.0100 ####[facility] [address] [place], [address] IG% 1.300 High 0.0-0.9 [facility] Comment on above: Result Comment: IG% - Immature Granulocytes (promyelocytes, myelocytes andmetamyelocytes) > 1% indicates that a LEFT SHIFT is Present. Performed By: #### L 500.2500, L503.6005, L100.0100 ####[facility] [address] [place], [address] Lymphocytes/100 WBC (Bld) 4.5 % Low 19-41 [facility] Comment on above: Performed By: #### L 500.2500, L503.6005, L100.0100 ####[facility] [address] [place], [address] MCH (RBC) [Entitic mass] 34.0 pg High 27.0-32.0 [facility] Comment on above: Performed By: #### L 500.2500, L503.6005, L100.0100 ####[facility] [address] [place], [address] MCHC (RBC) [Mass/Vol] 33.5 g/dL Normal 32-36 [facility] Comment on above: Performed By: #### L 500.2500, L503.6005, L100.0100 ####[facility] [address] [place], [address] MCV (RBC) [Entitic vol] 101.5 fL High 80-94 [facility] Comment on above: Performed By: #### L 500.2500, L503.6005, L100.0100 ####[facility] [address] [place], [address] Monocytes/100 WBC (Bld) 6.7 % Normal 0-10 [facility] Comment on above: Performed By: #### L 500.2500, L503.6005, L100.0100 ####[facility] [address] [place], [address] Neutrophils/100 WBC (Bld) 87.4 % High 47-70 [facility] Comment on above: Performed By: #### L 500.2500, L503.6005, L100.0100 ####[facility] [address] [place], [address] Nucleated RBC (Bld) [#/Vol] 0 10*3/uL Normal 0-5 [facility] Comment on above: Performed By: #### L 500.2500, L503.6005, L100.0100 ####[facility] [address] [place], [address] Platelet mean volume (Bld) [Entitic vol] 10.0 fL Normal 6.2-12.0 [facility] Comment on above: Performed By: #### L 500.2500, L503.6005, L100.0100 ####[facility] [address] [place], [address] Platelets (Bld) [#/Vol] 216 10*3/uL Normal 150-450 [facility] Comment on above: Performed By: #### L 500.2500, L503.6005, L100.0100 ####[facility] [address] [place], [address] RBC (Bld) [#/Vol] 3.35 10*6/uL Low 4.6-6.2 [facility] Comment on above: Performed By: #### L 500.2500, L503.6005, L100.0100 ####[facility] [address] [place], [address] RDW SD 62.1 fl High 35.1-43.9 [facility] Comment on above: Performed By: #### L 500.2500, L503.6005, L100.0100 ####[facility] [address] [place], [address] WBC (Bld) [#/Vol] 7.5 10*3/uL Normal 4.4-11.0 [facility] Comment on above: Performed By: #### L 500.2500, L503.6005, L100.0100 ####[facility] [address] [place], [address] Carbon dioxide, total [Moles /volume] in Central venous bloodOrdered By: Manju Zhong on 11-02-2024 CO2 [Moles/Vol] 27.6 mmol/L 21.0-32.0 [facility] Chloride assayOrdered By: Shahida Zhong on 11-02-2024 Chloride [Moles/Vol] 103 mmol/L 98-108 [facility] Emergency Department Summary on 11-02-2024 Emergency Department Summary Normal [facility] Eosinophil percentageOrdered By: Manju Zhong on 11-02-2024 Eosinophils/100 WBC (Bld) 0.0 % 0-5 [facility] Erythrocyte distribution wid th ratioOrdered By: Manju Zhong on 11-02-2024 Erythrocyte distribution width (RBC) [Ratio] 16.7 % High 11.6-14.6 [facility] Erythrocyte distribution wid th standard deviationOrdered By: Manju Zhong on 11-02-2024 Erythrocyte distribution width (RBC) [Ratio] 62.1 fl High 35.1-43.9 [facility] Glomerular filtration rate ( GFR) estimation/1.73 sq m using serum, plasma, or whole bOrdered By: Manju Zhong on 11-02-2024 GFR/1.73 sq M.predicted among non-blacks MDRD (S/P/Bld) [Vol rate/Area] 59 mL/min/{1.73_m2} Low >60 [facility] Comment on above: mL/min/1.73m2 CKD-EP I Creatinine Equation (2020) H AND P Exam - [facility] 11-02-2024 H&P Exam - Hospitalist Normal [facility] Hematocrit Auto (Bld) [Volum e fraction]Ordered By: Manju Zhong on 11-02-2024 Hematocrit (Bld) [Volume fraction] 34.0 % Low 40-54 [facility] Hemoglobin measurementOrdere d By: Manju Zhong on 11-02-2024 Hemoglobin (Bld) [Mass/Vol] 11.4 g/dL Low 13.0-16.5 [facility] Immature granulocytes/100 WB C Auto (Bld)Ordered By: Manju Zhong on 11-02-2024 Immature granulocytes/100 WBC (Bld) 1.300 % High 0.0-0.9 [facility] Comment on above: IG% - Immature Granu locytes (promyelocytes, myelocytes and metamyelocytes) > 1% indicates that a LEFT SHIFT is Present. Ketones Test strip Ql (U)Ord ered By: Manju Zhong on 11-02-2024 Ketones Ql (U) Negative Negative [facility] Lactic Acidon 11-02-2024 Lactate [Moles/Vol] 1.4 mmol/L Normal 0.0-2.0 [facility] Comment on above: Order Comment: Y Performed By: #### L 500.2500, L503.6005, L100.0100 ####[facility] [address] [place], [place], [id number] Lactic acid measurementOrder ed By: Manju Zhong on 11-02-2024 Lactate [Moles/Vol] 1.4 mmol/L 0.0-2.0 [facility] MCV (mean corpuscular volume ) determinationOrdered By: Manju Zhong on 11-02-2024 MCV (RBC) [Entitic vol] 101.5 fL High 80-94 [facility] Mean corpuscular hemoglobin (MCH) determinationOrdered By: Manju Zhong on 11-02-2024 MCH (RBC) [Entitic mass] 34.0 pg High 27.0-32.0 [facility] Mean corpuscular hemoglobin concentration (MCHC) determinationOrdered By: Manju Zhong on 11-02-2024 MCHC (RBC) [Mass/Vol] 33.5 g/dL 32-36 [facility] Mean platelet volume determi nationOrdered By: Manju Zhong on 11-02-2024 Platelet mean volume (Bld) [Entitic vol] 10.0 fL 6.2-12.0 [facility] Microscopic analysis of urin e for red blood cells (RBC)Ordered By: Manju Zhong on 11-02-2024 Microscopic analysis of urine for red blood cells (RBC) 0-5 SEEN /hpf 0-5 [facility] Monocyte percentageOrdered B y: Manju Zhong on 11-02-2024 Monocytes/100 WBC (Bld) 6.7 % 0-10 [facility] Mucus LM Ql (Urine sed)Order ed By: Manju Zhong on 11-02-2024 Mucus Ql (Urine sed) 0 SEEN /hpf [facility] Neutrophil percentageOrdered By: Manju Zhong on 11-02-2024 Neutrophils/100 WBC (Bld) 87.4 % High 47-70 [facility] Nitrite Test strip Ql (U)Ord ered By: Manju Zhong on 11-02-2024 Nitrite Ql (U) Negative Negative [facility] Nucleated red blood cell per centageOrdered By: Manju Zhong on 11-02-2024 Nucleated RBC/100 WBC (Bld) [Ratio] 0 % 0-5 [facility] Platelet countOrdered By: Shahida Zhong on 11-02-2024 Platelets (Bld) [#/Vol] 216 10*3/uL 150-450 [facility] Potassium measurement (mass/ volume)Ordered By: Manju Zhong on 11-02-2024 Potassium (Unsp spec) [Mass/Vol] 4.4 mmol/L 3.3-5.1 [facility] Protein Test strip Ql (U)Ord ered By: Manju Zhong on 11-02-2024 Protein Ql (U) 30 mg/dl High Negative [facility] RBC Auto (Bld) [#/Vol]Ordere d By: Manju Zhong on 11-02-2024 RBC (Bld) [#/Vol] 3.35 10*6/uL Low 4.6-6.2 [facility] Serum creatinine measurement (mass/volume)Ordered By: Manju Zhong on 11-02-2024 Creatinine [Mass/Vol] 1.19 mg/dL 0.70-1.20 [facility] Serum glucose measurement (m ass/volume)Ordered By: Manju Zhong on 11-02-2024 Glucose [Mass/Vol] 125 mg/dL High 70-99 [facility] Serum or plasma calcium marlin urement (mass/volume)Ordered By: Manju Zhong on 11-02-2024 Calcium [Mass/Vol] 8.9 mg/dL 7.6-11.0 [facility] Serum or plasma urea nitroge n measurement (mass/volume)Ordered By: Manju Zhong on 11-02-2024 Urea nitrogen [Mass/Vol] 25 mg/dL High 4-19 [facility] Sodium levelOrdered By: Manju Zhong on 11-02-2024 Sodium [Moles/Vol] 141 mmol/L 133-145 [facility] Squamous epithelial cells de tection in urine sediment by light microscopyOrdered By: Manju Zhong on 11-02-2024 Epithelial cells.squamous LM Ql (Urine sed) 0-5 SEEN /hpf 0-5 [facility] Urinalysis, Completeon 11-02 EPI,SQUAMOUS 0-5 SEEN Normal 0-5 [facility] Comment on above: Order Comment: EFFIE CTOR TO SPECIFY Performed By: #### L 400.0001 ####[facility] [address] [place], [address] RBC 0-5 SEEN Normal 0-5 [facility] Comment on above: Order Comment: EFFIE CTOR TO SPECIFY Performed By: #### L 400.0001 ####[facility] [address] [place], [address] WBC 0-5 SEEN Normal 0-5 [facility] Comment on above: Order Comment: EFFIE CTOR TO SPECIFY Performed By: #### L 400.0001 ####[facility] [address] [place], [address] BACTERIA 0 SEEN Normal None Seen [facility] Comment on above: Order Comment: EFFIE CTOR TO SPECIFY Performed By: #### L 400.0001 ####[facility] [address] [place], [address] Mucus Ql (Urine sed) 0 SEEN Normal [facility] Comment on above: Order Comment: EFFIE CTOR TO SPECIFY Performed By: #### L 400.0001 ####[facility] [address] [place], [address] Urine clarityOrdered By: Marcia Zhong on 11-02-2024 Clarity (U) Clear Clear [facility] Urine color determinationOrd ered By: Manju Zhong on 11-02-2024 Color (U) Yellow Yellow [facility] Urine glucose detectionOrder ed By: Manju Zhong on 11-02-2024 Glucose Ql (U) Normal mg/dl Normal [facility] Urine leukocyte esterase det ection by dipstickOrdered By: Manju Zhong on 11-02-2024 Leukocyte esterase Test strip Ql (U) Negative Negative [facility] Urine pHOrdered By: Manju donovan on 11-02-2024 pH (U) 8.0 [pH] 5.0 - 8.0 [facility] Urine sediment bacteria coun t by microscopy (number/high power field)Ordered By: Manju Zhong on 11-02-2024 Bacteria LM.HPF (Urine sed) [#/Area] 0 /[HPF] None Seen [facility] Urine specific gravity measu rementOrdered By: Manju Zhong on 11-02-2024 Specific gravity (U) [Rel density] 1.010 1.002-1.030 [facility] Urine urobilinogen measureme ntOrdered By: Manju Zhong on 11-02-2024 Urobilinogen Ql (U) Normal mg/dl Normal [facility] White blood cell (WBC) count Ordered By: Manju Zhong on 11-02-2024 WBC (Bld) [#/Vol] 7.5 10*3/uL 4.4-11.0 [facility] White blood cell countOrdere d By: Manju Zhong on 11-02-2024 White blood cell count 0-5 SEEN /hpf 0-5 [facility] Absolute lymphocyte countOrd ered By: Shoshana Ulrich on 07-24-2024 Lymphocytes Auto (Unsp spec) [#/Vol] 0.98 10*3/uL 0.83-4.51 [facility] Absolute neutrophil countOrd ered By: Shoshana Ulrich on 07-24-2024 Neutrophils (Bld) [#/Vol] 5.8 10*3/uL 2.0-7.7 [facility] Anion gap in Serum or Plasma Ordered By: Shoshana Ulrich on 07-24-2024 Anion gap [Moles/Vol] 11 mmol/L 5-15 [facility] Automated lymphocyte count a s percentage of total leukocytesOrdered By: Shoshana Ulrich on 07-24-2024 Lymphocytes/100 WBC Auto (Unsp spec) 12.7 % Low 19-41 [facility] BUN/creatinine ratioOrdered By: Shoshana Ulrich on 07-24-2024 Urea nitrogen/Creatinine [Mass ratio] 31.3 mg/mg High 10-20 [facility] Basophil percentageOrdered B y: Shoshana Ulrich on 07-24-2024 Basophils/100 WBC (Bld) 0.5 % 0-1 [facility] Bilirubin, totalOrdered By: Shoshana Ulrich on 07-24-2024 Bilirubin [Mass/Vol] 0.61 mg/dL 0.00-1.30 [facility] CBC W/Diff, Automatedon 07-14 Absolute Lymph 0.98 X10 3/uL Normal 0.83-4.51 [facility] Comment on above: Performed By: #### L 100.0100, L503.6550, L500.4050, L503.6030 ####[facility] [address] [place], [address] Absolute Neut 5.8 X10 3/uL Normal 2.0-7.7 [facility] Comment on above: Performed By: #### L 100.0100, L503.6550, L500.4050, L503.6030 ####[facility] [address] [place], [address] Basophils/100 WBC (Bld) 0.5 % Normal 0-1 [facility] Comment on above: Performed By: #### L 100.0100, L503.6550, L500.4050, L503.6030 ####[facility] [address] [place], [address] Eosinophils/100 WBC (Bld) 2.2 % Normal 0-5 [facility] Comment on above: Performed By: #### L 100.0100, L503.6550, L500.4050, L503.6030 ####[facility] [address] [place], [address] Erythrocyte distribution width (RBC) [Ratio] 15.0 % High 11.6-14.6 [facility] Comment on above: Performed By: #### L 100.0100, L503.6550, L500.4050, L503.6030 ####[facility] [address] [place], [address] Hematocrit (Bld) [Volume fraction] 38.2 % Low 40-54 [facility] Comment on above: Performed By: #### L 100.0100, L503.6550, L500.4050, L503.6030 ####[facility] [address] [place], [address] Hemoglobin (Bld) [Mass/Vol] 12.5 g/dL Low 13.0-16.5 [facility] Comment on above: Performed By: #### L 100.0100, L503.6550, L500.4050, L503.6030 ####[facility] [address] [place], [address] IG% 1.200 High 0.0-0.9 [facility] Comment on above: Result Comment: IG% - Immature Granulocytes (promyelocytes, myelocytes andmetamyelocytes) > 1% indicates that a LEFT SHIFT is Present. Performed By: #### L 100.0100, L503.6550, L500.4050, L503.6030 ####[facility] [address] [place], [address] Lymphocytes/100 WBC (Bld) 12.7 % Low 19-41 [facility] Comment on above: Performed By: #### L 100.0100, L503.6550, L500.4050, L503.6030 ####[facility] [address] [place], [address] MCH (RBC) [Entitic mass] 32.4 pg High 27.0-32.0 [facility] Comment on above: Performed By: #### L 100.0100, L503.6550, L500.4050, L503.6030 ####[facility] [address] [place], [address] MCHC (RBC) [Mass/Vol] 32.7 g/dL Normal 32-36 [facility] Comment on above: Performed By: #### L 100.0100, L503.6550, L500.4050, L503.6030 ####[facility] [address] [place], [address] MCV (RBC) [Entitic vol] 99.0 fL High 80-94 [facility] Comment on above: Performed By: #### L 100.0100, L503.6550, L500.4050, L503.6030 ####[facility] [address] [place], [address] Monocytes/100 WBC (Bld) 7.7 % Normal 0-10 [facility] Comment on above: Performed By: #### L 100.0100, L503.6550, L500.4050, L503.6030 ####[facility] [address] [place], [address] Neutrophils/100 WBC (Bld) 75.7 % High 47-70 [facility] Comment on above: Performed By: #### L 100.0100, L503.6550, L500.4050, L503.6030 ####[facility] [address] [place], [address] Nucleated RBC (Bld) [#/Vol] 0 10*3/uL Normal 0-5 [facility] Comment on above: Performed By: #### L 100.0100, L503.6550, L500.4050, L503.6030 ####[facility] [address] [place], [address] Platelet mean volume (Bld) [Entitic vol] 10.7 fL Normal 6.2-12.0 [facility] Comment on above: Performed By: #### L 100.0100, L503.6550, L500.4050, L503.6030 ####[facility] [address] [place], [address] Platelets (Bld) [#/Vol] 271 10*3/uL Normal 150-450 [facility] Comment on above: Performed By: #### L 100.0100, L503.6550, L500.4050, L503.6030 ####[facility] [address] [place], [address] RBC (Bld) [#/Vol] 3.86 10*6/uL Low 4.6-6.2 [facility] Comment on above: Performed By: #### L 100.0100, L503.6550, L500.4050, L503.6030 ####[facility] [address] [place], [address] RDW SD 55.0 fl High 35.1-43.9 [facility] Comment on above: Performed By: #### L 100.0100, L503.6550, L500.4050, L503.6030 ####[facility] [address] [place], [address] WBC (Bld) [#/Vol] 7.7 10*3/uL Normal 4.4-11.0 [facility] Comment on above: Performed By: #### L 100.0100, L503.6550, L500.4050, L503.6030 ####[facility] [address] [place], [address] Calculated total iron bindin g capacityOrdered By: Shoshana Ulrich on 07-24-2024 Total Iron Binding Capacity 322 ug/dL 250-450 [facility] Carbon dioxide, total [Moles /volume] in Central venous bloodOrdered By: Shoshana Ulrich on 07-24-2024 CO2 [Moles/Vol] 24.2 mmol/L 21.0-32.0 [facility] Chloride assayOrdered By: Paul Ulrich on 07-24-2024 Chloride [Moles/Vol] 105 mmol/L 98-108 [facility] Comprehensive Metabolic Prof ilon 07-24-2024 Albumin [Mass/Vol] 4.2 g/dL Normal 3.4-4.8 [facility] Comment on above: Performed By: #### L 100.0100, L503.6550, L500.4050, L503.6030 ####[facility] [address] [place], [address] Albumin/Globulin [Mass ratio] 1.5 {ratio} Normal 0.9-2.4 [facility] Comment on above: Performed By: #### L 100.0100, L503.6550, L500.4050, L503.6030 ####[facility] [address] [place], [address] ALK PHOS 82 U/L Normal 40-129 [facility] Comment on above: Performed By: #### L 100.0100, L503.6550, L500.4050, L503.6030 ####[facility] [address] [place], [address] ALT [Catalytic activity/Vol] 20 U/L Normal <=46 [facility] Comment on above: Performed By: #### L 100.0100, L503.6550, L500.4050, L503.6030 ####[facility] [address] [place], [address] AST [Catalytic activity/Vol] 21 U/L Normal <=37 [facility] Comment on above: Performed By: #### L 100.0100, L503.6550, L500.4050, L503.6030 ####[facility] [address] [place], [address] Bilirubin [Mass/Vol] 0.61 mg/dL Normal 0.00-1.30 [facility] Comment on above: Performed By: #### L 100.0100, L503.6550, L500.4050, L503.6030 ####[facility] [address] [place], [address] BUN/CRE 31.3 RATIO High 10-20 [facility] Comment on above: Performed By: #### L 100.0100, L503.6550, L500.4050, L503.6030 ####[facility] [address] [place], [address] Calcium [Mass/Vol] 9.3 mg/dL Normal 7.6-11.0 [facility] Comment on above: Performed By: #### L 100.0100, L503.6550, L500.4050, L503.6030 ####[facility] [address] [place], [address] Chloride [Moles/Vol] 105 mmol/L Normal 98-108 [facility] Comment on above: Performed By: #### L 100.0100, L503.6550, L500.4050, L503.6030 ####[facility] [address] [place], [address] CO2 [Moles/Vol] 24.2 mmol/L Normal 21.0-32.0 [facility] Comment on above: Performed By: #### L 100.0100, L503.6550, L500.4050, L503.6030 ####[facility] [address] [place], [address] Creatinine [Mass/Vol] 1.27 mg/dL High 0.70-1.20 [facility] Comment on above: Performed By: #### L 100.0100, L503.6550, L500.4050, L503.6030 ####[facility] [address] [place], [address] GAP 11 Normal 5-15 [facility] Comment on above: Performed By: #### L 100.0100, L503.6550, L500.4050, L503.6030 ####[facility] [address] [place], [address] GFR/1.73 sq M.predicted among non-blacks MDRD (S/P/Bld) [Vol rate/Area] 55 mL/min/{1.73_m2} Low >60 [facility] Comment on above: Result Comment: mL/m in/1.73m2 CKD-EPI Creatinine Equation (2020) Performed By: #### L 100.0100, L503.6550, L500.4050, L503.6030 ####[facility] [address] [place], [address] Globulin (S) [Mass/Vol] 2.7 g/dL Normal 2.2-4.2 [facility] Comment on above: Performed By: #### L 100.0100, L503.6550, L500.4050, L503.6030 ####[facility] [address] [place], [address] Glucose [Mass/Vol] 84 mg/dL Normal 70-99 [facility] Comment on above: Performed By: #### L 100.0100, L503.6550, L500.4050, L503.6030 ####[facility] [address] [place], [address] Potassium [Moles/Vol] 4.8 mmol/L Normal 3.3-5.1 [facility] Comment on above: Performed By: #### L 100.0100, L503.6550, L500.4050, L503.6030 ####[facility] [address] [place], [address] Sodium [Moles/Vol] 140 mmol/L Normal 133-145 [facility] Comment on above: Performed By: #### L 100.0100, L503.6550, L500.4050, L503.6030 ####[facility] [address] [place], [address] T PROT 6.9 g/dL Normal 5.9-8.4 [facility] Comment on above: Performed By: #### L 100.0100, L503.6550, L500.4050, L503.6030 ####[facility] [address] [place], [address] Urea nitrogen [Mass/Vol] 40 mg/dL High 4-19 [facility] Comment on above: Performed By: #### L 100.0100, L503.6550, L500.4050, L503.6030 ####[facility] [address] [place], [address] Eosinophil percentageOrdered By: Shoshana Ulrich on 07-24-2024 Eosinophils/100 WBC (Bld) 2.2 % 0-5 [facility] Erythrocyte distribution wid th ratioOrdered By: Shoshana Ulrich on 07-24-2024 Erythrocyte distribution width (RBC) [Ratio] 15.0 % High 11.6-14.6 [facility] Erythrocyte distribution wid th standard deviationOrdered By: Shoshana Ulrich on 07-24-2024 Erythrocyte distribution width (RBC) [Entitic vol] 55.0 fL High 35.1-43.9 [facility] Erythrocyte distribution width (RBC) [Ratio] 55.0 fl High 35.1-43.9 [facility] Ferritinon 07-24-2024 Ferritin [Mass/Vol] 81 ng/mL Normal 37-417 [facility] Comment on above: Performed By: #### L 100.0100, L503.6550, L500.4050, L503.6030 ####[facility] [address] [place], [address] GFR/1.73 sq M.predicted sandhya g non-blacks MDRD (S/P/Bld) [Vol rate/Area]Ordered By: Shoshana Ulrich on 07-24-2024 Estimated GFR (MDRD) Non-Af Amer 55 Low >60 [facility] Comment on above: mL/min/1.73m2 CKD-EP I Creatinine Equation (2020) Glomerular filtration rate ( GFR) estimation/1.73 sq m using serum, plasma, or whole bOrdered By: Shoshana Ulrich on 07-24-2024 GFR/1.73 sq M.predicted among non-blacks MDRD (S/P/Bld) [Vol rate/Area] 55 mL/min/{1.73_m2} Low >60 [facility] Comment on above: mL/min/1.73m2 CKD-EP I Creatinine Equation (2020) Hematocrit Auto (Bld) [Volum e fraction]Ordered By: Shoshana Ulrich on 07-24-2024 Hematocrit (Bld) [Volume fraction] 38.2 % Low 40-54 [facility] Hemoglobin measurementOrdere d By: Shoshana Ulrich on 07-24-2024 Hemoglobin (Bld) [Mass/Vol] 12.5 g/dL Low 13.0-16.5 [facility] Immature granulocytes/100 WB C Auto (Bld)Ordered By: Shoshana Ulrich on 07-24-2024 Immature granulocytes/100 WBC (Bld) 1.200 % High 0.0-0.9 [facility] Comment on above: IG% - Immature Granu locytes (promyelocytes, myelocytes and metamyelocytes) > 1% indicates that a LEFT SHIFT is Present. Iron (Unsp spec) [Mass/Mass] Ordered By: Shoshana Ulrich on 07-24-2024 Iron [Mass/Vol] 119 ug/dL 65-175 [facility] Iron measurement (mass/mass) Ordered By: Shoshana Ulrich on 07-24-2024 Iron (Unsp spec) [Mass/Mass] 119 ug/dL 65-175 [facility] Iron saturation [Mass fracti on]Ordered By: Shoshana Ulrich on 07-24-2024 Iron Saturation 37.0 % 9-55 [facility] Iron+Iron Binding Capacityon 07-24-2024 Iron [Mass/Vol] 119 ug/dL Normal 65-175 [facility] Comment on above: Performed By: #### L 100.0100, L503.6550, L500.4050, L503.6030 ####[facility] [address] [place], [address] IRON SATURATION 37.0 Normal 9-55 [facility] Comment on above: Performed By: #### L 100.0100, L503.6550, L500.4050, L503.6030 ####[facility] [address] [place], [address] TIBC 322 ug/dL Normal 250-450 [facility] Comment on above: Performed By: #### L 100.0100, L503.6550, L500.4050, L503.6030 ####[facility] [address] [place], [address] UIBC 203 ug/dL Low 228-428 [facility] Comment on above: Performed By: #### L 100.0100, L503.6550, L500.4050, L503.6030 ####[facility] [address] [place], [address] Laboratory - Chemistry and C hemistry - challengeOrdered By: Shoshana Ulrich on 07-24-2024 AST [Catalytic activity/Vol] 21 U/L <38 [facility] Lymphocytes Auto (Unsp spec) [#/Vol]Ordered By: Shoshana Ulrich on 07-24-2024 Lymphocytes (Bld) [#/Vol] 0.98 10*3/uL 0.83-4.51 [facility] Lymphocytes/100 WBC Auto (Un sp spec)Ordered By: Shoshana Ulrich on 07-24-2024 Lymphocytes/100 WBC (Bld) 12.7 % Low 19-41 [facility] MCV (mean corpuscular volume ) determinationOrdered By: Shoshana Ulrich on 07-24-2024 MCV (RBC) [Entitic vol] 99.0 fL High 80-94 [facility] Mean corpuscular hemoglobin (MCH) determinationOrdered By: Shoshana Ulrich on 07-24-2024 MCH (RBC) [Entitic mass] 32.4 pg High 27.0-32.0 [facility] Mean corpuscular hemoglobin concentration (MCHC) determinationOrdered By: Shoshana Ulrich on 07-24-2024 MCHC (RBC) [Mass/Vol] 32.7 g/dL 32-36 [facility] Mean platelet volume determi nationOrdered By: Shoshana Ulrich on 07-24-2024 Platelet mean volume (Bld) [Entitic vol] 10.7 fL 6.2-12.0 [facility] Monocyte percentageOrdered B y: Shoshana Ulrich on 07-24-2024 Monocytes/100 WBC (Bld) 7.7 % 0-10 [facility] Neutrophil percentageOrdered By: Shoshana Ulrich on 07-24-2024 Neutrophils/100 WBC (Bld) 75.7 % High 47-70 [facility] No Panel InformationOrdered By: Shoshana Ulrich on 07-24-2024 Unsaturated Iron Binding Capacity 203 ug/dL Low 228-428 [facility] Nucleated red blood cell per centageOrdered By: Shoshana Ulrich on 07-24-2024 Nucleated RBC/100 WBC (Bld) [Ratio] 0 % 0-5 [facility] Platelet countOrdered By: Paul Ulrich on 07-24-2024 Platelets (Bld) [#/Vol] 271 10*3/uL 150-450 [facility] Potassium (Unsp spec) [Mass/ Vol]Ordered By: Shoshana Ulrich on 07-24-2024 Potassium [Moles/Vol] 4.8 mmol/L 3.3-5.1 [facility] Potassium measurement (mass/ volume)Ordered By: Shoshana Ulrich on 07-24-2024 Potassium (Unsp spec) [Mass/Vol] 4.8 mmol/L 3.3-5.1 [facility] RBC Auto (Bld) [#/Vol]Ordere d By: Shoshana Ulrich on 07-24-2024 RBC (Bld) [#/Vol] 3.86 10*6/uL Low 4.6-6.2 [facility] Serum creatinine measurement (mass/volume)Ordered By: Shoshana Ulrich on 07-24-2024 Creatinine [Mass/Vol] 1.27 mg/dL High 0.70-1.20 [facility] Serum globulin measurementOr dered By: Shoshana Ulrich on 07-24-2024 Globulin (S) [Mass/Vol] 2.7 g/dL 2.2-4.2 [facility] Serum glucose measurement (m ass/volume)Ordered By: Shoshana Ulrich on 07-24-2024 Glucose [Mass/Vol] 84 mg/dL 70-99 [facility] Serum or plasma alanine tavarez otransferase (ALT) measurementOrdered By: Shoshana Ulrich on 07-24-2024 ALT [Catalytic activity/Vol] 20 U/L <47 [facility] Serum or plasma albumin marlin urement (mass/volume)Ordered By: Shoshana Ulrich on 07-24-2024 Albumin [Mass/Vol] 4.2 g/dL 3.4-4.8 [facility] Serum or plasma albumin/glob ulin mass ratioOrdered By: Shoshana Ulrich on 07-24-2024 Albumin/Globulin [Mass ratio] 1.5 {ratio} 0.9-2.4 [facility] Serum or plasma alkaline erin sphatase measurementOrdered By: Shoshana Ulrich on 07-24-2024 ALP [Catalytic activity/Vol] 82 U/L 40-129 [facility] Serum or plasma calcium marlin urement (mass/volume)Ordered By: Shoshana Ulrich on 07-24-2024 Calcium [Mass/Vol] 9.3 mg/dL 7.6-11.0 [facility] Serum or plasma ferritin janice surement (mass/volume)Ordered By: Shoshana Ulrich on 07-24-2024 Ferritin [Mass/Vol] 81 ng/mL 37-417 [facility] Serum or plasma iron saturat ion measurement (mass fraction)Ordered By: Shoshana Ulrich on 07-24-2024 Iron saturation [Mass fraction] 37.0 % 9-55 [facility] Serum or plasma urea nitroge n measurement (mass/volume)Ordered By: Shoshana Ulrich on 07-24-2024 Urea nitrogen [Mass/Vol] 40 mg/dL High 4-19 [facility] Sodium levelOrdered By: Dario Ulrich on 07-24-2024 Sodium [Moles/Vol] 140 mmol/L 133-145 [facility] Total proteinOrdered By: Marlon Ulrich on 07-24-2024 Protein [Mass/Vol] 6.9 g/dL 5.9-8.4 [facility] White blood cell (WBC) count Ordered By: Shoshana Ulrich on 07-24-2024 WBC (Bld) [#/Vol] 7.7 10*3/uL 4.4-11.0 [facility] Neurology Visit Reporton Neurology Visit Report Normal [facility] MR/BMS.BVSon 06-26-2024 MR/BMS.BVS Normal [facility] Emergency Department Summary on 06-20-2024 Emergency Department Summary Normal [facility] Venous Duplex US - Omar Extre mon 06-20-2024 Venous Duplex US - Omar Extrem Normal [facility] Emergency Department Summary on 05-26-2024 Emergency Department Summary Normal [facility] Shoulder min 2 Viewson 05-26 Shoulder min 2 Views Normal [facility] Absolute neutrophil countOrd ered By: Shoshana Ulrich on 04-17-2024 Neutrophils (Bld) [#/Vol] 4.1 10*3/uL 2.0-7.7 [facility] Albumin to globulin ratioOrd ered By: Shoshana Ulrich on 04-17-2024 Albumin/Globulin [Mass ratio] 1.1 {ratio} 0.9-2.4 [facility] Basophil percentageOrdered B y: Shoshana Ulrich on 04-17-2024 Basophils/100 WBC (Bld) 0.7 % 0-1 [facility] Bilirubin, totalOrdered By: Shoshana Ulrich on 04-17-2024 Bilirubin [Mass/Vol] 0.40 mg/dL 0.20-1.00 [facility] Comment on above: For patients on eltr ombopag therapy, use of Dimension [place] TBIL is not recommended. Blood urea nitrogen (BUN)/cr eatinine ratioOrdered By: Shoshana Ulrich on 04-17-2024 Urea nitrogen/Creatinine [Mass ratio] 20.0 mg/mg 10-20 [facility] CBC W/Diff, Automatedon 12- Anisocytosis Ql (Bld) 1+ Normal [facility] Comment on above: Performed By: #### L 500.4050, L503.6030, L100.0100, L503.6550 ####[facility] [address] [place], [address] PLT MORPH LARGE Normal [facility] Comment on above: Performed By: #### L 500.4050, L503.6030, L100.0100, L503.6550 ####[facility] [address] [place], [address] Carbon dioxide measurementOr dered By: Shoshana Ulrich on 04-17-2024 CO2 [Moles/Vol] 25.0 mmol/L 21.0-32.0 [facility] Chloride measurementOrdered By: Shoshana Ulrich on 04-17-2024 Chloride [Moles/Vol] 108 mmol/L High 98-107 [facility] Comprehensive Metabolic Prof ilon 04-17-2024 Albumin [Mass/Vol] 3.6 g/dL Normal 3.2-5.0 [facility] Comment on above: Performed By: #### L 500.4050, L503.6030, L100.0100, L503.6550 ####[facility] [address] [place], [address] Albumin/Globulin [Mass ratio] 1.1 {ratio} Normal 0.9-2.4 [facility] Comment on above: Performed By: #### L 500.4050, L503.6030, L100.0100, L503.6550 ####[facility] [address] [place], [address] ALK P 73 U/L Normal 45-117 [facility] Comment on above: Performed By: #### L 500.4050, L503.6030, L100.0100, L503.6550 ####[facility] [address] [place], [address] ALT [Catalytic activity/Vol] 19 U/L Normal 16-61 [facility] Comment on above: Performed By: #### L 500.4050, L503.6030, L100.0100, L503.6550 ####[facility] [address] [place], [address] AST [Catalytic activity/Vol] 18 U/L Normal 15-37 [facility] Comment on above: Performed By: #### L 500.4050, L503.6030, L100.0100, L503.6550 ####[facility] [address] [place], [address] Bilirubin [Mass/Vol] 0.40 mg/dL Normal 0.20-1.00 [facility] Comment on above: Result Comment: For patients on eltrombopag therapy, use of Dimension [place] TBIL is not recommended. Performed By: #### L 500.4050, L503.6030, L100.0100, L503.6550 ####[facility] [address] [place], [address] BUN/CRE 20.0 RATIO Normal 10-20 [facility] Comment on above: Performed By: #### L 500.4050, L503.6030, L100.0100, L503.6550 ####[facility] [address] [place], [address] CA,Total 8.8 mg/dL Normal 8.5-10.1 [facility] Comment on above: Performed By: #### L 500.4050, L503.6030, L100.0100, L503.6550 ####[facility] [address] [place], [address] Chloride [Moles/Vol] 108 mmol/L High 98-107 [facility] Comment on above: Performed By: #### L 500.4050, L503.6030, L100.0100, L503.6550 ####[facility] [address] [place], [address] CO2 [Moles/Vol] 25.0 mmol/L Normal 21.0-32.0 [facility] Comment on above: Performed By: #### L 500.4050, L503.6030, L100.0100, L503.6550 ####[facility] [address] [place], [address] Creatinine [Mass/Vol] 1.25 mg/dL Normal 0.70-1.30 [facility] Comment on above: Result Comment: The validity of the calculated GFR GFRAA in patients over70 years has not been determined. Clinical correlation isessential. Performed By: #### L 500.4050, L503.6030, L100.0100, L503.6550 ####[facility] [address] [place], [address] EST GFR - AA 70 mL/min Normal >60 [facility] Comment on above: Result Comment: Afri can Yemeni GFR Calc Performed By: #### L 500.4050, L503.6030, L100.0100, L503.6550 ####[facility] [address] [place], [address] GAP 7 Normal 5-15 [facility] Comment on above: Performed By: #### L 500.4050, L503.6030, L100.0100, L503.6550 ####[facility] [address] [place], [address] GFR/1.73 sq M.predicted among non-blacks MDRD (S/P/Bld) [Vol rate/Area] 58 mL/min/{1.73_m2} Low >60 [facility] Comment on above: Result Comment: Non- GFR Calc Performed By: #### L 500.4050, L503.6030, L100.0100, L503.6550 ####[facility] [address] [place], [address] Globulin (S) [Mass/Vol] 3.4 g/dL Normal 2.2-4.2 [facility] Comment on above: Performed By: #### L 500.4050, L503.6030, L100.0100, L503.6550 ####[facility] [address] [place], [address] Glucose [Mass/Vol] 92 mg/dL Normal 74-106 [facility] Comment on above: Performed By: #### L 500.4050, L503.6030, L100.0100, L503.6550 ####[facility] [address] [place], [address] Potassium [Moles/Vol] 3.9 mmol/L Normal 3.5-5.1 [facility] Comment on above: Performed By: #### L 500.4050, L503.6030, L100.0100, L503.6550 ####[facility] [address] [place], [address] Sodium [Moles/Vol] 139 mmol/L Normal 136-145 [facility] Comment on above: Performed By: #### L 500.4050, L503.6030, L100.0100, L503.6550 ####[facility] [address] [place], [address] T PROT 7.0 g/dL Normal 6.4-8.2 [facility] Comment on above: Performed By: #### L 500.4050, L503.6030, L100.0100, L503.6550 ####[facility] [address] [place], [address] Urea nitrogen [Mass/Vol] 25 mg/dL High 7-18 [facility] Comment on above: Performed By: #### L 500.4050, L503.6030, L100.0100, L503.6550 ####[facility] [address] [place], [address] Eosinophil percentageOrdered By: Shoshana Ulrich on 04-17-2024 Eosinophils/100 WBC (Bld) 2.3 % 0-5 [facility] Erythrocyte distribution wid th ratioOrdered By: Shoshana Ulrich on 04-17-2024 Erythrocyte distribution width (RBC) [Ratio] 19.1 % High 11.6-14.6 [facility] Erythrocyte distribution wid th standard deviationOrdered By: Shoshana Ulrich on 04-17-2024 Erythrocyte distribution width (RBC) [Entitic vol] 68.1 fL High 35.1-43.9 [facility] Estimated glomerular filtrat ion rate (GFR) AmericanOrdered By: Shoshana Ulrich on 04-17-2024 Estimated GFR (MDRD) Amer 70 mL/min >60 [facility] Comment on above: GFR Calc Ferritinon 04-17-2024 Ferritin [Mass/Vol] 44 ng/mL Normal 26-388 [facility] Comment on above: Performed By: #### L 500.4050, L503.6030, L100.0100, L503.6550 ####[facility] [address] [place], [address] Ferritin measurementOrdered By: Shoshana Ulrich on 04-17-2024 Ferritin [Mass/Vol] 44 ng/mL 26-388 [facility] Glomerular filtration rate ( GFR) estimationOrdered By: Shoshana Ulrich on 04-17-2024 Estimated GFR (MDRD) Non-Af Amer 58 mL/min Low >60 [facility] Comment on above: Non- GFR Calc Glucose measurementOrdered B y: Shoshana Ulrich on 04-17-2024 Glucose [Mass/Vol] 92 mg/dL 74-106 [facility] Hematocrit Auto (Bld) [Volum e fraction]Ordered By: Shoshana Ulrich on 04-17-2024 Hematocrit (Bld) [Volume fraction] 38.2 % Low 40-54 [facility] Hemoglobin measurementOrdere d By: Shoshana Ulrich on 04-17-2024 Hemoglobin (Bld) [Mass/Vol] 12.0 g/dL Low 13.0-16.5 [facility] Immature granulocytes/100 WB C Auto (Bld)Ordered By: Shoshananadege Ulrich on 04-17-2024 Immature granulocytes/100 WBC (Bld) 0.500 % 0.0-0.9 [facility] Comment on above: IG% - Immature Granu locytes (promyelocytes, myelocytes and metamyelocytes) > 1% indicates that a LEFT SHIFT is Present. Iron (Unsp spec) [Mass/Mass] Ordered By: Shoshana Ulrich on 04-17-2024 Iron [Mass/Vol] 46 ug/dL Low 65-175 [facility] Iron saturation [Mass fracti on]Ordered By: Shoshana Ulrich on 04-17-2024 Iron Saturation 14.8 % Low 15.0-55.0 [facility] Iron+Iron Binding Capacityon 04-17-2024 Iron [Mass/Vol] 46 ug/dL Low 65-175 [facility] Comment on above: Performed By: #### L [id number], [id number], L100.0100, [id number] ####[facility] [id number] [place], [address] IRON SATURATION 14.8 Low 15.0-55.0 [facility] Comment on above: Performed By: #### L [id number], [id number], L100.0100, [id number] ####[facility] [id number] [place], [address] TIBC 311 ug/dL Normal 250-450 [facility] Comment on above: Performed By: #### L [id number], [id number], L100.0100, [id number] ####[facility] [id number] [place], [address] Laboratory - Chemistry and C hemistry - challengeOrdered By: Shoshana Ulrich on 04-17-2024 AST [Catalytic activity/Vol] 18 U/L 15-37 [facility] Laboratory - Hematology and Cell countsOrdered By: Shoshana Ulrich on 04-17-2024 Anisocytosis Ql (Bld) 1+ [facility] Lymphocytes Auto (Unsp spec) [#/Vol]Ordered By: Shoshana Ulrich on 04-17-2024 Lymphocytes (Bld) [#/Vol] 0.83 10*3/uL 0.83-4.51 [facility] Lymphocytes/100 WBC Auto (Un sp spec)Ordered By: Shoshana Ulrich on 04-17-2024 Lymphocytes/100 WBC (Bld) 14.9 % Low 19-41 [facility] MCV (mean corpuscular volume ) determinationOrdered By: Shoshana Ulrich on 04-17-2024 MCV (RBC) [Entitic vol] 96.7 fL High 80-94 [facility] Mean corpuscular hemoglobin (MCH) determinationOrdered By: Shoshana Ulrich on 04-17-2024 MCH (RBC) [Entitic mass] 30.4 pg 27.0-32.0 [facility] Mean corpuscular hemoglobin concentration (MCHC) determinationOrdered By: Shoshana Ulrich on 04-17-2024 MCHC (RBC) [Mass/Vol] 31.4 g/dL Low 32-36 [facility] Mean platelet volume determi nationOrdered By: Shoshana Ulrich on 04-17-2024 Platelet mean volume (Bld) [Entitic vol] 10.8 fL 6.2-12.0 [facility] Monocyte percentageOrdered B y: Shoshana Ulrich on 04-17-2024 Monocytes/100 WBC (Bld) 8.5 % 0-10 [facility] Neutrophil percentageOrdered By: Shoshana Ulrich on 04-17-2024 Neutrophils/100 WBC (Bld) 73.1 % High 47-70 [facility] Nucleated red blood cell per centageOrdered By: Shoshana Ulrich on 04-17-2024 Nucleated RBC/100 WBC (Bld) [Ratio] 0 % 0-5 [facility] Platelet countOrdered By: Paul frantz Mojgan on 04-17-2024 Platelets (Bld) [#/Vol] 206 10*3/uL 150-450 [facility] Platelet morphology finding Nom (Bld)Ordered By: Shoshana Ulrich on 04-17-2024 Platelet Morphology Comment LARGE [facility] Potassium measurementOrdered By: Shoshana Ulrich on 04-17-2024 Potassium [Moles/Vol] 3.9 mmol/L 3.5-5.1 [facility] RBC Auto (Bld) [#/Vol]Ordere d By: Shoshana Ulrich on 04-17-2024 RBC (Bld) [#/Vol] 3.95 10*6/uL Low 4.6-6.2 [facility] Serum anion gap measurementO rdered By: Shoshana Ulrich on 04-17-2024 Anion gap [Moles/Vol] 7 mmol/L 5-15 [facility] Serum globulin measurementOr dered By: Shoshana Ulrich on 04-17-2024 Globulin (S) [Mass/Vol] 3.4 g/dL 2.2-4.2 [facility] Serum or plasma alanine tavarez otransferase (ALT) measurementOrdered By: Shoshana Ulrich on 04-17-2024 ALT [Catalytic activity/Vol] 19 U/L 16-61 [facility] Serum or plasma albumin marlin urement (mass/volume)Ordered By: Shoshana Ulrich on 04-17-2024 Albumin [Mass/Vol] 3.6 g/dL 3.2-5.0 [facility] Serum or plasma alkaline erin sphatase measurementOrdered By: Shoshana Ulrich on 04-17-2024 ALP [Catalytic activity/Vol] 73 U/L 45-117 [facility] Serum or plasma calcium marlin urement (mass/volume)Ordered By: Shoshana Ulrich on 04-17-2024 Calcium [Mass/Vol] 8.8 mg/dL 8.5-10.1 [facility] Serum or plasma creatinine m easurement (mass/volume)Ordered By: Shoshana Ulrich on 04-17-2024 Creatinine [Mass/Vol] 1.25 mg/dL 0.70-1.30 [facility] Comment on above: The validity of the calculated GFR & GFRAA in patients over 70 years has not been determined. Clinical correlation is essential. Serum or plasma urea nitroge n measurement (mass/volume)Ordered By: Shoshana Ulrich on 04-17-2024 Urea nitrogen [Mass/Vol] 25 mg/dL High 7-18 [facility] Sodium levelOrdered By: Dario Ulrich on 04-17-2024 Sodium [Moles/Vol] 139 mmol/L 136-145 [facility] TIBCOrdered By: Shoshana norman on 04-17-2024 Total Iron Binding Capacity 311 ug/dL 250-450 [facility] Total proteinOrdered By: Marlon Ulrich on 04-17-2024 Protein [Mass/Vol] 7.0 g/dL 6.4-8.2 [facility] White blood cell (WBC) count Ordered By: Shoshana Ulrich on 04-17-2024 WBC (Bld) [#/Vol] 5.6 10*3/uL 4.4-11.0 [facility] Absolute lymphocyte countOrd ered By: Rosemary Fernandez on 09-21-2023 Lymphocytes Auto (Unsp spec) [#/Vol] 0.77 10*3/uL 0.83-4.51 [facility] Automated lymphocyte count a s percentage of total leukocytesOrdered By: Rosemary Fernandez on 09-21-2023 Lymphocytes/100 WBC Auto (Unsp spec) 11.7 % 19-41 [facility] Basophil percentageOrdered B y: Rosemary Fernandez on 09-21-2023 Basophils/100 WBC (Bld) 0.3 % 0-1 [facility] Chloride [Moles/Vol] 109 mmol/L 98-107 [facility] Eosinophils/100 WBC (Bld) 5.2 % 0-5 [facility] Glucose [Mass/Vol] 91 mg/dL 74-106 [facility] Hemoglobin (Bld) [Mass/Vol] 9.4 g/dL 13.0-16.5 [facility] Monocytes/100 WBC (Bld) 5.8 % 0-10 [facility] Neutrophils (Bld) [#/Vol] 5.1 10*3/uL 2.0-7.7 [facility] Neutrophils/100 WBC (Bld) 76.7 % 47-70 [facility] Potassium [Moles/Vol] 4.2 mmol/L 3.5-5.1 [facility] Sodium [Moles/Vol] 141 mmol/L 136-145 [facility] WBC (Bld) [#/Vol] 6.6 10*3/uL 4.4-11.0 [facility] Determination of erythrocyte mean corpuscular volume (MCV)Ordered By: Rosemary Fernandez on 09-21-2023 MCV (RBC) [Entitic vol] 97.7 fL 80-94 [facility] Erythrocyte distribution wid th ratioOrdered By: Rosemary Fernandez on 09-21-2023 Erythrocyte distribution width (RBC) [Ratio] 16.8 % 11.6-14.6 [facility] Erythrocyte distribution wid th standard deviationOrdered By: Rosemary Fernandez on 09-21-2023 Erythrocyte distribution width (RBC) [Entitic vol] 60.4 fL 35.1-43.9 [facility] Hematocrit Auto (Bld) [Volum e fraction]Ordered By: Rosemary Fernandez on 09-21-2023 Hematocrit (Bld) [Volume fraction] 29.6 % 40-54 [facility] Immature granulocytes/100 WB C Auto (Bld)Ordered By: Rosemary Fernandez on 09-21-2023 Immature granulocytes/100 WBC (Bld) 0.300 % 0.0-0.9 [facility] Comment on above: IG% - Immature Granu locytes (promyelocytes, myelocytes and metamyelocytes) > 1% indicates that a LEFT SHIFT is Present. Laboratory - Chemistry and C hemistry - challengeOrdered By: Rosemary Fernandez on 09-21-2023 CO2 [Moles/Vol] 26.0 mmol/L 21.0-32.0 [facility] Urea nitrogen/Creatinine [Mass ratio] 16.0 mg/mg 10-20 [facility] Laboratory - Hematology and Cell countsOrdered By: Rosemary Fernandez on 09-21-2023 MCH (RBC) [Entitic mass] 31.0 pg 27.0-32.0 [facility] MCHC (RBC) [Mass/Vol] 31.8 g/dL 32-36 [facility] Nucleated RBC/100 WBC (Bld) [Ratio] 0 % 0-5 [facility] Platelet mean volume (Bld) [Entitic vol] 10.5 fL 6.2-12.0 [facility] Platelets (Bld) [#/Vol] 166 10*3/uL 150-450 [facility] No Panel InformationOrdered By: Rosemary Fernandez on 09-21-2023 Estimated Creatinine Clearance Calc 42.92 ml/min [facility] Estimated GFR (MDRD) Amer 75 mL/min >60 [facility] Comment on above: GFR Calc Estimated GFR (MDRD) Non-Af Amer 62 mL/min >60 [facility] Comment on above: Non- GFR Calc RBC Auto (Bld) [#/Vol]Ordere d By: Rosemary Fernandez on 09-21-2023 RBC (Bld) [#/Vol] 3.03 10*6/uL 4.6-6.2 [facility] Serum or plasma calcium marlin urement (mass/volume)Ordered By: Rosemary Fernandez on 09-21-2023 Calcium [Mass/Vol] 8.7 mg/dL 8.5-10.1 [facility] Serum or plasma creatinine m easurement (mass/volume)Ordered By: Rosemary Fernandez on 09-21-2023 Creatinine [Mass/Vol] 1.19 mg/dL 0.70-1.30 [facility] Comment on above: The validity of the calculated GFR & GFRAA in patients over 70 years has not been determined. Clinical correlation is essential. Serum or plasma urea nitroge n measurement (mass/volume)Ordered By: Rosemary Fernandez on 09-21-2023 Urea nitrogen [Mass/Vol] 19 mg/dL 7-18 [facility] Thin prep Papanicolaou smear with manual screeningOrdered By: Rosemary Fernandez on 09-21-2023 Thin prep Papanicolaou smear with manual screening 6 5-15 [facility] Basophil percentageOrdered B y: Rosemary Fernandez on 09-20-2023 Basophil percentage 3.4 mg/dL 2.5-4.9 [facility] Bilirubin [Mass/Vol] 0.60 mg/dL 0.20-1.00 [facility] Comment on above: For patients on eltr ombopag therapy, use of Dimension [place] TBIL is not recommended. Protein [Mass/Vol] 5.2 g/dL 6.4-8.2 [facility] Laboratory - Chemistry and C hemistry - challengeOrdered By: Rosemary Fernandez on 09-20-2023 Albumin/Globulin [Mass ratio] 1.1 {ratio} 0.9-2.4 [facility] ALP [Catalytic activity/Vol] 53 U/L 45-117 [facility] ALT [Catalytic activity/Vol] 15 U/L 16-61 [facility] Globulin (S) [Mass/Vol] 2.5 g/dL 2.2-4.2 [facility] Magnesium [Mass/Vol] 2.1 mg/dL 1.6-2.6 [facility] Serum or plasma thyroid stim ulating hormone (TSH) measurement (units/volume)Ordered By: Rosemary Fernandez on 09-20-2023 TSH Qn 1.09 uIU/mL 0.358-3.74 [facility] Thin prep Papanicolaou smear with manual screeningOrdered By: Rosemary Fernandez on 09-20-2023 Thin prep Papanicolaou smear with manual screening 2.7 g/dL 3.2-5.0 [facility] Thin prep Papanicolaou smear with manual screening 12 U/L 15-37 [facility] Absolute lymphocyte countOrd ered By: Russel Pal on 09-19-2023 Lymphocytes Auto (Unsp spec) [#/Vol] 1.04 10*3/uL 0.83-4.51 [facility] Automated lymphocyte count a s percentage of total leukocytesOrdered By: Russel Pal on 09-19-2023 Lymphocytes/100 WBC Auto (Unsp spec) 15.3 % 19-41 [facility] Basophil percentageOrdered B y: Russel Pal on 09-19-2023 Basophils/100 WBC (Bld) 0.6 % 0-1 [facility] Bilirubin [Mass/Vol] 0.30 mg/dL 0.20-1.00 [facility] Comment on above: For patients on eltr ombopag therapy, use of Dimension [place] TBIL is not recommended. Chloride [Moles/Vol] 111 mmol/L 98-107 [facility] Eosinophils/100 WBC (Bld) 8.1 % 0-5 [facility] Glucose [Mass/Vol] 109 mg/dL 74-106 [facility] Comment on above: Fasting Glucose resu lt from 100 to 125 mg/dL suggests IMPAIRED HOMEOSTASIS per A.D.A. criteria. Hemoglobin (Bld) [Mass/Vol] 10.9 g/dL 13.0-16.5 [facility] Monocytes/100 WBC (Bld) 6.9 % 0-10 [facility] Neutrophils (Bld) [#/Vol] 4.6 10*3/uL 2.0-7.7 [facility] Neutrophils/100 WBC (Bld) 68.4 % 47-70 [facility] Potassium [Moles/Vol] 4.5 mmol/L 3.5-5.1 [facility] Protein [Mass/Vol] 6.3 g/dL 6.4-8.2 [facility] Sodium [Moles/Vol] 139 mmol/L 136-145 [facility] WBC (Bld) [#/Vol] 6.8 10*3/uL 4.4-11.0 [facility] Clostridioides difficile nuc leic acid assay by PCROrdered By: Russel Pal on 09-19-2023 C. difficile DNA JOSTIN+probe Ql (Unsp spec) [facility] Determination of erythrocyte mean corpuscular volume (MCV)Ordered By: Russel Pal on 09-19-2023 MCV (RBC) [Entitic vol] 100.0 fL 80-94 [facility] Erythrocyte distribution wid th ratioOrdered By: Russel Pal on 09-19-2023 Erythrocyte distribution width (RBC) [Ratio] 14.9 % 11.6-14.6 [facility] Erythrocyte distribution wid th standard deviationOrdered By: Russel Pal on 09-19-2023 Erythrocyte distribution width (RBC) [Entitic vol] 55.0 fL 35.1-43.9 [facility] Hematocrit Auto (Bld) [Volum e fraction]Ordered By: Russel Pal on 09-19-2023 Hematocrit (Bld) [Volume fraction] 34.0 % 40-54 [facility] Immature granulocytes/100 WB C Auto (Bld)Ordered By: Russel Pal on 09-19-2023 Immature granulocytes/100 WBC (Bld) 0.700 % 0.0-0.9 [facility] Comment on above: IG% - Immature Granu locytes (promyelocytes, myelocytes and metamyelocytes) > 1% indicates that a LEFT SHIFT is Present. Laboratory - Chemistry and C hemistry - challengeOrdered By: Russel Pal on 09-19-2023 Albumin/Globulin [Mass ratio] 1.0 {ratio} 0.9-2.4 [facility] ALP [Catalytic activity/Vol] 62 U/L 45-117 [facility] ALT [Catalytic activity/Vol] 18 U/L 16-61 [facility] CO2 [Moles/Vol] 26.0 mmol/L 21.0-32.0 [facility] Globulin (S) [Mass/Vol] 3.1 g/dL 2.2-4.2 [facility] Urea nitrogen/Creatinine [Mass ratio] 24.0 mg/mg 10-20 [facility] Laboratory - CoagulationOrde red By: Russel Pal on 09-19-2023 INR Coag (Bld) [Relative time] 1.1 {INR} [facility] PT Coag (PPP) [Time] 13.8 s 11.7-14.9 [facility] Laboratory - Hematology and Cell countsOrdered By: Russel Pal on 09-19-2023 MCH (RBC) [Entitic mass] 32.1 pg 27.0-32.0 [facility] MCHC (RBC) [Mass/Vol] 32.1 g/dL 32-36 [facility] Nucleated RBC/100 WBC (Bld) [Ratio] 0 % 0-5 [facility] Platelet mean volume (Bld) [Entitic vol] 10.6 fL 6.2-12.0 [facility] Platelets (Bld) [#/Vol] 193 10*3/uL 150-450 [facility] No Panel InformationOrdered By: Russel Pal on 09-19-2023 Estimated Creatinine Clearance Calc 39.46 ml/min [facility] Estimated GFR (MDRD) Amer 70 mL/min >60 [facility] Comment on above: GFR Calc Estimated GFR (MDRD) Non-Af Amer 58 mL/min >60 [facility] Comment on above: Non- GFR Calc RBC Auto (Bld) [#/Vol]Ordere d By: Russel Pal on 09-19-2023 RBC (Bld) [#/Vol] 3.40 10*6/uL 4.6-6.2 [facility] Serum or plasma calcium marlin urement (mass/volume)Ordered By: Russel Pal on 09-19-2023 Calcium [Mass/Vol] 8.8 mg/dL 8.5-10.1 [facility] Serum or plasma creatinine m easurement (mass/volume)Ordered By: Russel Pal on 09-19-2023 Creatinine [Mass/Vol] 1.25 mg/dL 0.70-1.30 [facility] Comment on above: The validity of the calculated GFR & GFRAA in patients over 70 years has not been determined. Clinical correlation is essential. Serum or plasma urea nitroge n measurement (mass/volume)Ordered By: Russel Pal on 09-19-2023 Urea nitrogen [Mass/Vol] 30 mg/dL 7-18 [facility] Stool enteric pathogen panel by probe and target amplification methodOrdered By: Russel Pal on 09-19-2023 Gastrointestinal pathogens panel JOSTIN+probe (Stl) [facility] Stool lactoferrin detection by immunoassayOrdered By: Russel Pal on 09-19-2023 Lactoferrin IA Ql (Stl) [facility] Thin prep Papanicolaou smear with manual screeningOrdered By: Russel Pal on 09-19-2023 Thin prep Papanicolaou smear with manual screening 3.2 g/dL 3.2-5.0 [facility] Thin prep Papanicolaou smear with manual screening 15 U/L 15-37 [facility] Thin prep Papanicolaou smear with manual screening 2 5-15 [facility] Basophil percentageOrdered B y: Sunny Smiley on 08-11-2023 Chloride [Moles/Vol] 108 mmol/L 98-107 [facility] Glucose [Mass/Vol] 101 mg/dL 74-106 [facility] Comment on above: Fasting Glucose resu lt from 100 to 125 mg/dL suggests IMPAIRED HOMEOSTASIS per A.D.A. criteria. Hemoglobin (Bld) [Mass/Vol] 11.4 g/dL 13.0-16.5 [facility] Potassium [Moles/Vol] 4.2 mmol/L 3.5-5.1 [facility] Sodium [Moles/Vol] 140 mmol/L 136-145 [facility] WBC (Bld) [#/Vol] 5.8 10*3/uL 4.4-11.0 [facility] Determination of erythrocyte mean corpuscular volume (MCV)Ordered By: Sunny Smiley on 08-11-2023 MCV (RBC) [Entitic vol] 102.6 fL 80-94 [facility] Erythrocyte distribution wid th ratioOrdered By: Sunny Smiley on 08-11-2023 Erythrocyte distribution width (RBC) [Ratio] 14.5 % 11.6-14.6 [facility] Erythrocyte distribution wid th standard deviationOrdered By: [facility] Smiley on 08-11-2023 Erythrocyte distribution width (RBC) [Entitic vol] 54.7 fL 35.1-43.9 [facility] Hematocrit Auto (Bld) [Volum e fraction]Ordered By: Sunny Smiley on 08-11-2023 Hematocrit (Bld) [Volume fraction] 35.9 % 40-54 [facility] Laboratory - Chemistry and C hemistry - challengeOrdered By: Sunny Smiley on 08-11-2023 CO2 [Moles/Vol] 29.0 mmol/L 21.0-32.0 [facility] Urea nitrogen/Creatinine [Mass ratio] 22.6 mg/mg 10-20 [facility] Laboratory - Hematology and Cell countsOrdered By: Sunny Smiely on 08-11-2023 MCH (RBC) [Entitic mass] 32.6 pg 27.0-32.0 [facility] MCHC (RBC) [Mass/Vol] 31.8 g/dL 32-36 [facility] Platelet mean volume (Bld) [Entitic vol] 10.0 fL 6.2-12.0 [facility] Platelets (Bld) [#/Vol] 230 10*3/uL 150-450 [facility] No Panel InformationOrdered By: Sunny Smiley on 08-11-2023 Estimated GFR (MDRD) Amer 78 mL/min >60 [facility] Comment on above: GFR Calc Estimated GFR (MDRD) Non-Af Amer 64 mL/min >60 [facility] Comment on above: Non- GFR Calc RBC Auto (Bld) [#/Vol]Ordere d By: Sunny Smiley on 08-11-2023 RBC (Bld) [#/Vol] 3.50 10*6/uL 4.6-6.2 [facility] Serum or plasma calcium marlin urement (mass/volume)Ordered By: Sunny Smiley on 08-11-2023 Calcium [Mass/Vol] 8.7 mg/dL 8.5-10.1 [facility] Serum or plasma creatinine m easurement (mass/volume)Ordered By: Sunny Smiley on 08-11-2023 Creatinine [Mass/Vol] 1.15 mg/dL 0.70-1.30 [facility] Comment on above: The validity of the calculated GFR & GFRAA in patients over 70 years has not been determined. Clinical correlation is essential. Serum or plasma urea nitroge n measurement (mass/volume)Ordered By: Sunny Smiley on 08-11-2023 Urea nitrogen [Mass/Vol] 26 mg/dL 7-18 [facility] Thin prep Papanicolaou smear with manual screeningOrdered By: Sunny Smiley on 08-11-2023 Thin prep Papanicolaou smear with manual screening 3 5-15 [facility] Absolute lymphocyte countOrd ered By: Shoshana Ulrich on 04-06-2023 Lymphocytes Auto (Unsp spec) [#/Vol] 0.67 10*3/uL 0.83-4.51 [facility] Basophil percentageOrdered B y: Shoshana Ulrich on 04-06-2023 Basophils/100 WBC (Bld) 0.5 % 0-1 [facility] Chloride [Moles/Vol] 102 mmol/L 98-107 [facility] Eosinophils/100 WBC (Bld) 0.5 % 0-5 [facility] Glucose [Mass/Vol] 104 mg/dL 74-106 [facility] Comment on above: Fasting Glucose resu lt from 100 to 125 mg/dL suggests IMPAIRED HOMEOSTASIS per A.D.A. criteria. Neutrophils (Bld) [#/Vol] 3.1 10*3/uL 2.0-7.7 [facility] Neutrophils/100 WBC (Bld) 73.0 % 47-70 [facility] Potassium [Moles/Vol] 4.1 mmol/L 3.5-5.1 [facility] Sodium [Moles/Vol] 137 mmol/L 136-145 [facility] WBC (Bld) [#/Vol] 4.3 10*3/uL 4.4-11.0 [facility] Blood erythrocytes count (nu mber/volume)Ordered By: Shoshana Ulrich on 04-06-2023 RBC (Bld) [#/Vol] 3.68 10*6/uL 4.6-6.2 [facility] Blood hemoglobin measurement (mass/volume)Ordered By: Shoshana Ulrich on 04-06-2023 Hemoglobin (Bld) [Mass/Vol] 12.5 g/dL 13.0-16.5 [facility] Blood lymphocytes/100 leukoc ytesOrdered By: Shoshana Ulrich on 04-06-2023 Lymphocytes/100 WBC (Bld) 15.7 % 19-41 [facility] Blood monocytes/100 leukocyt esOrdered By: Shoshana Ulrich on 04-06-2023 Monocytes/100 WBC (Bld) 9.1 % 0-10 [facility] Blood platelet mean volumeOr dered By: Shoshana Ulrich on 04-06-2023 Platelet mean volume (Bld) [Entitic vol] 11.4 fL 6.2-12.0 [facility] Determination of erythrocyte mean corpuscular volume (MCV)Ordered By: Shoshana Ulrich on 04-06-2023 MCV (RBC) [Entitic vol] 103.3 fL 80-94 [facility] Hematocrit Auto (Bld) [Volum e fraction]Ordered By: Shoshana Ulrich on 04-06-2023 Hematocrit (Bld) [Volume fraction] 38.0 % 40-54 [facility] Laboratory - Chemistry and C hemistry - challengeOrdered By: Shoshana Ulrich on 04-06-2023 CO2 [Moles/Vol] 29.0 mmol/L 21.0-32.0 [facility] Urea nitrogen/Creatinine [Mass ratio] 26.5 mg/mg 10-20 [facility] Laboratory - Hematology and Cell countsOrdered By: Shoshana Ulrich on 04-06-2023 Erythrocyte distribution width (RBC) [Entitic vol] 61.8 fL 35.1-43.9 [facility] Erythrocyte distribution width (RBC) [Ratio] 16.1 % 11.6-14.6 [facility] Immature granulocytes/100 WBC (Bld) 1.200 % 0.0-0.9 [facility] Comment on above: IG% - Immature Granu locytes (promyelocytes, myelocytes and metamyelocytes) > 1% indicates that a LEFT SHIFT is Present. MCH (RBC) [Entitic mass] 34.0 pg 27.0-32.0 [facility] Nucleated RBC/100 WBC (Bld) [Ratio] 0 % 0-5 [facility] MCHC Auto (RBC) [Mass/Vol]Or dered By: Shoshana Ulrich on 04-06-2023 MCHC (RBC) [Mass/Vol] 32.9 g/dL 32-36 [facility] No Panel InformationOrdered By: Shoshana Ulrich on 04-06-2023 Estimated GFR (MDRD) Amer 64 mL/min >60 [facility] Comment on above: GFR Calc Estimated GFR (MDRD) Non-Af Amer 53 mL/min >60 [facility] Comment on above: Non- GFR Calc Platelets bldOrdered By: Marlon Ulrich on 04-06-2023 Platelets (Bld) [#/Vol] 171 10*3/uL 150-450 [facility] Serum or plasma calcium marlin urement (mass/volume)Ordered By: Shoshana Ulrich on 04-06-2023 Calcium [Mass/Vol] 8.7 mg/dL 8.5-10.1 [facility] Serum or plasma creatinine m easurement (mass/volume)Ordered By: Shoshana Ulrich on 04-06-2023 Creatinine [Mass/Vol] 1.36 mg/dL 0.70-1.30 [facility] Comment on above: The validity of the calculated GFR & GFRAA in patients over 70 years has not been determined. Clinical correlation is essential. Serum or plasma urea nitroge n measurement (mass/volume)Ordered By: Shoshana Ulrich on 04-06-2023 Urea nitrogen [Mass/Vol] 36 mg/dL 11-30 [facility] Thin prep Papanicolaou smear with manual screeningOrdered By: Shoshana Ulrich on 04-06-2023 Thin prep Papanicolaou smear with manual screening 6 09-27 [facility] Culture, urineOrdered By: Nakita Foster on 12-10-2022 Bacteria identified Cx Nom (U) Culture exhibits no growth. [facility] Basophil percentageOrdered B y: Dr. Mendoza on 10-28-2022 Bilirubin [Mass/Vol] 0.60 mg/dL 0.20-1.00 [facility] Comment on above: For patients on eltr ombopag therapy, use of Dimension [place] TBIL is not recommended. Chloride [Moles/Vol] 111 mmol/L 98-107 [facility] [facility] Glucose [Mass/Vol] 116 mg/dL 74-106 [facility] Comment on above: Fasting Glucose resu lt from 100 to 125 mg/dL suggests IMPAIRED HOMEOSTASIS per A.D.A. criteria. Potassium [Moles/Vol] 4.4 mmol/L 3.5-5.1 [facility] Protein [Mass/Vol] 6.9 g/dL 6.4-8.2 [facility] Sodium [Moles/Vol] 142 mmol/L 136-145 [facility] WBC (Bld) [#/Vol] 7.4 10*3/uL 4.4-11.0 [facility] Blood erythrocytes count (nu mber/volume)Ordered By: Dr. Mendoza on 10-28-2022 RBC (Bld) [#/Vol] 3.93 10*6/uL 4.6-6.2 [facility] Blood hemoglobin measurement (mass/volume)Ordered By: Dr. Mendoza on 10-28-2022 Hemoglobin (Bld) [Mass/Vol] 12.5 g/dL 13.0-16.5 [facility] Blood platelet mean volumeOr dered By: Dr. Mendoza on 10-28-2022 Platelet mean volume (Bld) [Entitic vol] 10.5 fL 6.2-12.0 [facility] Determination of erythrocyte mean corpuscular volume (MCV)Ordered By: Dr. Mendoza on 10-28-2022 MCV (RBC) [Entitic vol] 99.0 fL 80-94 [facility] Direct bilirubinOrdered By: Dr. Mendoza on 10-28-2022 Bilirubin.direct [Mass/Vol] 0.14 mg/dL 0.00-0.30 [facility] Hematocrit Auto (Bld) [Volum e fraction]Ordered By: Dr. Mendoza on 10-28-2022 Hematocrit (Bld) [Volume fraction] 38.9 % 40-54 [facility] INR in Blood by Coagulation assayOrdered By: Dr. Mendoza on 10-28-2022 INR Coag (Bld) [Relative time] 1.0 {INR} [facility] Laboratory - Chemistry and C hemistry - challengeOrdered By: Dr. Mendoza on 10-28-2022 ALP [Catalytic activity/Vol] 88 U/L 45-117 [facility] ALT [Catalytic activity/Vol] 25 U/L 16-61 [facility] CO2 [Moles/Vol] 25.0 mmol/L 21.0-32.0 [facility] Globulin (S) [Mass/Vol] 3.7 g/dL 2.2-4.2 [facility] Urea nitrogen/Creatinine [Mass ratio] 16.7 mg/mg 10-20 [facility] Laboratory - CoagulationOrde red By: Dr. Mendoza on 10-28-2022 aPTT Coag (Bld) [Time] 27.5 s 24.1-36.2 [facility] PT Coag (PPP) [Time] 13.3 s 11.7-14.9 [facility] Laboratory - Hematology and Cell countsOrdered By: Dr. Mendoza on 10-28-2022 Erythrocyte distribution width (RBC) [Entitic vol] 55.0 fL 35.1-43.9 [facility] Erythrocyte distribution width (RBC) [Ratio] 15.0 % 11.6-14.6 [facility] MCH (RBC) [Entitic mass] 31.8 pg 27.0-32.0 [facility] MCHC Auto (RBC) [Mass/Vol]Or dered By: Dr. Mendoza on 10-28-2022 MCHC (RBC) [Mass/Vol] 32.1 g/dL 32-36 [facility] No Panel InformationOrdered By: Dr. Mendoza on 10-28-2022 Estimated GFR (MDRD) Amer 66 mL/min >60 [facility] Comment on above: GFR Calc Estimated GFR (MDRD) Non-Af Amer 55 mL/min >60 [facility] Comment on above: Non- GFR Calc Platelets bldOrdered By: Dr. Mednoza on 10-28-2022 Platelets (Bld) [#/Vol] 212 10*3/uL 150-450 [facility] Serum or plasma albumin marlin urement (mass/volume)Ordered By: Dr. Mendoza on 10-28-2022 Albumin [Mass/Vol] 3.2 g/dL 3.2-5.0 [facility] Serum or plasma calcium marlin urement (mass/volume)Ordered By: Dr. Mendoza on 10-28-2022 Calcium [Mass/Vol] 8.4 mg/dL 8.5-10.1 [facility] Serum or plasma creatinine m easurement (mass/volume)Ordered By: Dr. Mendoza on 10-28-2022 Creatinine [Mass/Vol] 1.32 mg/dL 0.70-1.30 [facility] Comment on above: The validity of the calculated GFR & GFRAA in patients over 70 years has not been determined. Clinical correlation is essential. Serum or plasma urea nitroge n measurement (mass/volume)Ordered By: Dr. Mendoza on 10-28-2022 Urea nitrogen [Mass/Vol] 22 mg/dL 7-18 [facility] Thin prep Papanicolaou smear with manual screeningOrdered By: Dr. Mendoza on 10-28-2022 Thin prep Papanicolaou smear with manual screening 21 U/L 15-37 [facility] Thin prep Papanicolaou smear with manual screening 6 5-15 [facility] Basophil percentageOrdered B y: Dr. Ruby on 10-07-2022 Chloride [Moles/Vol] 109 mmol/L 98-107 [facility] Glucose [Mass/Vol] 111 mg/dL 74-106 [facility] Comment on above: Fasting Glucose resu lt from 100 to 125 mg/dL suggests IMPAIRED HOMEOSTASIS per A.D.A. criteria. Potassium [Moles/Vol] 3.7 mmol/L 3.5-5.1 [facility] Sodium [Moles/Vol] 141 mmol/L 136-145 [facility] Laboratory - Chemistry and C hemistry - challengeOrdered By: Dr. Ruby on 10-07-2022 CO2 [Moles/Vol] 30.0 mmol/L 21.0-32.0 [facility] Urea nitrogen/Creatinine [Mass ratio] 12.9 mg/mg 10-20 [facility] No Panel InformationOrdered By: Dr. Ruby on 10-07-2022 Estimated Creatinine Clearance Calc 42.14 ml/min [facility] Estimated GFR (MDRD) Amer 71 mL/min >60 [facility] Comment on above: GFR Calc Estimated GFR (MDRD) Non-Af Amer 59 mL/min >60 [facility] Comment on above: Non- GFR Calc Serum or plasma calcium marlin urement (mass/volume)Ordered By: Dr. Ruby on 10-07-2022 Calcium [Mass/Vol] 8.5 mg/dL 8.5-10.1 [facility] Serum or plasma creatinine m easurement (mass/volume)Ordered By: Dr. Ruby on 10-07-2022 Creatinine [Mass/Vol] 1.24 mg/dL 0.70-1.30 [facility] Comment on above: The validity of the calculated GFR & GFRAA in patients over 70 years has not been determined. Clinical correlation is essential. Serum or plasma urea nitroge n measurement (mass/volume)Ordered By: Dr. Ruby on 10-07-2022 Urea nitrogen [Mass/Vol] 16 mg/dL 7-18 [facility] Thin prep Papanicolaou smear with manual screeningOrdered By: Dr. Ruby on 10-07-2022 Thin prep Papanicolaou smear with manual screening 2 5-15 [facility] Basophil percentageOrdered B y: Dr. Foster on 07-12-2022 Chloride [Moles/Vol] 103 mmol/L 98-107 [facility] Glucose [Mass/Vol] 81 mg/dL 74-106 [facility] Potassium [Moles/Vol] 3.8 mmol/L 3.5-5.1 [facility] Sodium [Moles/Vol] 137 mmol/L 136-145 [facility] WBC (Bld) [#/Vol] 6.3 10*3/uL 4.4-11.0 [facility] Blood erythrocytes count (nu mber/volume)Ordered By: Dr. Foster on 07-12-2022 RBC (Bld) [#/Vol] 3.72 10*6/uL 4.6-6.2 [facility] Blood hemoglobin measurement (mass/volume)Ordered By: Dr. Foster on 07-12-2022 Hemoglobin (Bld) [Mass/Vol] 12.6 g/dL 13.0-16.5 [facility] Blood platelet mean volumeOr dered By: Dr. Foster on 07-12-2022 Platelet mean volume (Bld) [Entitic vol] 10.6 fL 6.2-12.0 [facility] Determination of erythrocyte mean corpuscular volume (MCV)Ordered By: Dr. Foster on 07-12-2022 MCV (RBC) [Entitic vol] 101.6 fL 80-94 [facility] Hematocrit Auto (Bld) [Volum e fraction]Ordered By: Dr. Foster on 07-12-2022 Hematocrit (Bld) [Volume fraction] 37.8 % 40-54 [facility] Laboratory - Chemistry and C hemistry - challengeOrdered By: Dr. Foster on 07-12-2022 CO2 [Moles/Vol] 25.0 mmol/L 21.0-32.0 [facility] Urea nitrogen/Creatinine [Mass ratio] 17.5 mg/mg 10-20 [facility] Laboratory - Hematology and Cell countsOrdered By: Dr. Foster on 07-12-2022 Erythrocyte distribution width (RBC) [Entitic vol] 59.7 fL 35.1-43.9 [facility] Erythrocyte distribution width (RBC) [Ratio] 15.8 % 11.6-14.6 [facility] MCH (RBC) [Entitic mass] 33.9 pg 27.0-32.0 [facility] MCHC Auto (RBC) [Mass/Vol]Or dered By: Dr. Foster on 07-12-2022 MCHC (RBC) [Mass/Vol] 33.3 g/dL 32-36 [facility] No Panel InformationOrdered By: Dr. Foster on 07-12-2022 Estimated GFR (MDRD) Amer 70 mL/min >60 [facility] Comment on above: GFR Calc Estimated GFR (MDRD) Non-Af Amer 58 mL/min >60 [facility] Comment on above: Non- GFR Calc Platelets bldOrdered By: Dr. Foster on 07-12-2022 Platelets (Bld) [#/Vol] 156 10*3/uL 150-450 [facility] Serum or plasma calcium marlin urement (mass/volume)Ordered By: Dr. Foster on 07-12-2022 Calcium [Mass/Vol] 8.5 mg/dL 8.5-10.1 [facility] Serum or plasma creatinine m easurement (mass/volume)Ordered By: Dr. Foster on 07-12-2022 Creatinine [Mass/Vol] 1.26 mg/dL 0.70-1.30 [facility] Comment on above: The validity of the calculated GFR & GFRAA in patients over 70 years has not been determined. Clinical correlation is essential. Serum or plasma urea nitroge n measurement (mass/volume)Ordered By: Dr. Foster on 07-12-2022 Urea nitrogen [Mass/Vol] 22 mg/dL 7-18 [facility] Thin prep Papanicolaou smear with manual screeningOrdered By: Dr. Fostre on 07-12-2022 Thin prep Papanicolaou smear with manual screening 9 5-15 [facility] Basophil percentageOrdered B y: ED PROVIDER on 04-09-2022 Basophil percentage 0-5 SEEN /hpf 0-5 [facility] Bilirubin Test strip Ql (U)O rdered By: ED PROVIDER on 04-09-2022 Bilirubin Ql (U) Negative Negative [facility] Ketones Test strip Ql (U)Ord ered By: ED PROVIDER on 04-09-2022 Ketones Ql (U) Negative Negative [facility] Mucus LM Ql (Urine sed)Order ed By: ED PROVIDER on 04-09-2022 Mucus Ql (Urine sed) 0 SEEN /hpf [facility] Nitrite Test strip Ql (U)Ord ered By: ED PROVIDER on 04-09-2022 Nitrite Ql (U) Negative Negative [facility] Protein Test strip Ql (U)Ord ered By: ED PROVIDER on 04-09-2022 Protein Ql (U) 15 mg/dl Negative [facility] Squamous epithelial cells de tection in urine sediment by light microscopyOrdered By: ED PROVIDER on 04-09-2022 Epithelial cells.squamous LM Ql (Urine sed) 0 SEEN /hpf 0-5 [facility] Urine blood detectionOrdered By: ED PROVIDER on 04-09-2022 RBC Ql (U) Negative Negative [facility] RBC Ql (U) 0-5 SEEN /hpf 0-5 [facility] Urine clarityOrdered By: ED PROVIDER on 04-09-2022 Clarity (U) Clear Clear [facility] Urine color determinationOrd ered By: ED PROVIDER on 04-09-2022 Color (U) Yellow Yellow [facility] Urine glucose detectionOrder ed By: ED PROVIDER on 04-09-2022 Glucose Ql (U) Normal mg/dl Normal [facility] Urine leukocyte esterase det ection by dipstickOrdered By: ED PROVIDER on 04-09-2022 Leukocyte esterase Test strip Ql (U) 25 /ul Negative [facility] Urine pHOrdered By: ED PROVI KELECHI on 04-09-2022 pH (U) 7.0 [pH] 5.0 - 8.0 [facility] Urine sediment bacteria coun t by microscopy (number/high power field)Ordered By: ED PROVIDER on 04-09-2022 Bacteria LM.HPF (Urine sed) [#/Area] RARE /hpf None Seen [facility] Urine specific gravity measu rementOrdered By: ED PROVIDER on 04-09-2022 Specific gravity (U) [Rel density] 1.010 1.002-1.030 [facility] Urobilinogen Auto test strip Ql (U)Ordered By: ED PROVIDER on 04-09-2022 Urobilinogen Ql (U) Normal mg/dl Normal [facility] Final Surgical Pathology Rep leslie 09-14-2021 Final Surgical Pathology Report . Pathology Reports Accession: Collected Date/Time: Received Date/Time: Pathologist: [id number] 09/11/2021 10:34 EDT 09/11/2021 12:06 EDT FERNANDO [...] Electronically Signed by Pathology Report verified by [facility] Electronically signed by FERNANDO ZHAO Sign out Date: 09/14/2021 13:50 Performing Lab: [facility], [address] [place] [address] (MD) Absolute lymphocyte counton 09-08-2021 Lymphocytes Auto (Unsp spec) [#/Vol] 1.03 10*3/uL 0.83-4.51 [facility] Work Phone: Basophil percentageon 2021 Basophil percentage 0 SEEN /hpf 0-5 [facility] Work Phone: Basophils/100 WBC (Bld) 0.6 % 0-1 [facility] Work Phone: Bilirubin [Mass/Vol] 1.20 mg/dL 0.20-1.00 [facility] Work Phone: Comment on above: For patients on eltr ombopag therapy, use of Dimension [place] TBIL is not recommended. Chloride [Moles/Vol] 103 mmol/L 98-107 [facility] Work Phone: [phone] Eosinophils/100 WBC (Bld) 3.1 % 0-5 [facility] Work Phone: [phone] Glucose [Mass/Vol] 104 mg/dL 74-106 [facility] Work Phone: Comment on above: Fasting Glucose resu lt from 100 to 125 mg/dL suggests IMPAIRED HOMEOSTASIS per A.D.A. criteria. Neutrophils (Bld) [#/Vol] 3.4 10*3/uL 2.0-7.7 [facility] Work Phone: Neutrophils/100 WBC (Bld) 66.9 % 47-70 [facility] Work Phone: [phone] Potassium [Moles/Vol] 4.2 mmol/L 3.5-5.1 [facility] Work Phone: Protein [Mass/Vol] 7.7 g/dL 6.4-8.2 [facility] Work Phone: [phone] Sodium [Moles/Vol] 136 mmol/L 136-145 [facility] Work Phone: WBC (Bld) [#/Vol] 5.1 10*3/uL 4.4-11.0 [facility] Work Phone: Bilirubin Test strip Ql (U)o n 09-08-2021 Bilirubin Ql (U) Negative Negative [facility] Work Phone: Blood erythrocytes count (nu mber/volume)on 09-08-2021 RBC (Bld) [#/Vol] 4.65 10*6/uL 4.6-6.2 [facility] Work Phone: Blood hemoglobin measurement (mass/volume)on 09-08-2021 Hemoglobin (Bld) [Mass/Vol] 14.4 g/dL 13.0-16.5 [facility] Work Phone: Blood lymphocytes/100 leukoc yteson 09-08-2021 Lymphocytes/100 WBC (Bld) 20.3 % 19-41 [facility] Work Phone: Blood monocytes/100 leukocyt eson 09-08-2021 Monocytes/100 WBC (Bld) 8.7 % 0-10 [facility] Work Phone: Blood platelet mean volumeon 09-08-2021 Platelet mean volume (Bld) [Entitic vol] 10.1 fL 6.2-12.0 [facility] Work Phone: Determination of erythrocyte mean corpuscular volume (MCV)on 09-08-2021 MCV (RBC) [Entitic vol] 94.6 fL 80-94 [facility] Work Phone: Hematocrit Auto (Bld) [Volum e fraction]on 09-08-2021 Hematocrit (Bld) [Volume fraction] 44.0 % 40-54 [facility] Work Phone: Ketones Test strip Ql (U)on 09-08-2021 Ketones Ql (U) 5 mg/dl Negative [facility] Work Phone: Laboratory - Chemistry and C hemistry - challengeon 09-08-2021 ALP [Catalytic activity/Vol] 96 U/L 45-117 [facility] Work Phone: ALT [Catalytic activity/Vol] 19 U/L 16-61 [facility] Work Phone: CO2 [Moles/Vol] 29.0 mmol/L 21.0-32.0 [facility] Work Phone: Globulin (S) [Mass/Vol] 3.9 g/dL 2.2-4.2 [facility] Work Phone: [phone] Lipase [Catalytic activity/Vol] 78 U/L 73-393 [facility] Work Phone: Urea nitrogen/Creatinine [Mass ratio] 14.1 mg/mg 10-20 [facility] Work Phone: Laboratory - Hematology and Cell countson 09-08-2021 Erythrocyte distribution width (RBC) [Entitic vol] 58.5 fL 35.1-43.9 [facility] Work Phone: Erythrocyte distribution width (RBC) [Ratio] 16.9 % 11.6-14.6 [facility] Work Phone: Immature granulocytes/100 WBC (Bld) 0.400 % 0.0-0.9 [facility] Work Phone: Comment on above: IG% - Immature Granu locytes (promyelocytes, myelocytes and metamyelocytes) > 1% indicates that a LEFT SHIFT is Present. MCH (RBC) [Entitic mass] 31.0 pg 27.0-32.0 [facility] Work Phone: Nucleated RBC/100 WBC (Bld) [Ratio] 0 % 0-5 [facility] Work Phone: MCHC Auto (RBC) [Mass/Vol]on 09-08-2021 MCHC (RBC) [Mass/Vol] 32.7 g/dL 32-36 [facility] Work Phone: Mucus LM Ql (Urine sed)on Mucus Ql (Urine sed) 0 SEEN /hpf [facility] Work Phone: Nitrite Test strip Ql (U)on 09-08-2021 Nitrite Ql (U) Negative Negative [facility] Work Phone: No Panel Informationon 09-08 Estimated Creatinine Clearance Calc 37.46 ml/min [facility] Work Phone: Estimated GFR (MDRD) Amer 61 mL/min >60 [facility] Work Phone: Comment on above: GFR Calc Estimated GFR (MDRD) Non-Af Amer 51 mL/min >60 [facility] Work Phone: Comment on above: Non- GFR Calc Platelets bldon 09-08-2021 Platelets (Bld) [#/Vol] 208 10*3/uL 150-450 [facility] Work Phone: Protein Test strip Ql (U)on 09-08-2021 Protein Ql (U) Negative Negative [facility] Work Phone: Serum or plasma albumin marlin urement (mass/volume)on 09-08-2021 Albumin [Mass/Vol] 3.8 g/dL 3.2-5.0 [facility] Work Phone: Serum or plasma albumin/glob ulin mass ratioon 09-08-2021 Albumin/Globulin [Mass ratio] 1.0 {ratio} 0.9-2.4 [facility] Work Phone: Serum or plasma calcium marlin urement (mass/volume)on 09-08-2021 Calcium [Mass/Vol] 9.5 mg/dL 8.5-10.1 [facility] Work Phone: Serum or plasma creatinine m easurement (mass/volume)on 09-08-2021 Creatinine [Mass/Vol] 1.42 mg/dL 0.70-1.30 [facility] Work Phone: Comment on above: The validity of the calculated GFR & GFRAA in patients over 70 years has not been determined. Clinical correlation is essential. Serum or plasma urea nitroge n measurement (mass/volume)on 09-08-2021 Urea nitrogen [Mass/Vol] 20 mg/dL 7-18 [facility] Work Phone: Squamous epithelial cells de tection in urine sediment by light microscopyon 09-08-2021 Epithelial cells.squamous LM Ql (Urine sed) 0 SEEN /hpf 0-5 [facility] Work Phone: Thin prep Papanicolaou smear with manual screeningon 09-08-2021 Thin prep Papanicolaou smear with manual screening 16 U/L 15-37 [facility] Work Phone: Thin prep Papanicolaou smear with manual screening 4 5-15 [facility] Work Phone: Urine blood detectionon - RBC Ql (U) Negative Negative [facility] Work Phone: RBC Ql (U) 0 SEEN /hpf 0-5 [facility] Work Phone: Urine clarityon 09-08-2021 Clarity (U) Clear Clear [facility] Work Phone: Urine color determinationon 09-08-2021 Color (U) Yellow Yellow [facility] Work Phone: Urine glucose detectionon Glucose Ql (U) Normal mg/dl Normal [facility] Work Phone: Urine leukocyte esterase det ection by dipstickon 09-08-2021 Leukocyte esterase Test strip Ql (U) Negative Negative [facility] Work Phone: Urine pHon 09-08-2021 pH (U) 7.0 [pH] 5.0 - 8.0 [facility] Work Phone: Urine sediment bacteria coun t by microscopy (number/high power field)on 09-08-2021 Bacteria LM.HPF (Urine sed) [#/Area] 0 /[HPF] None Seen [facility] Work Phone: Urine specific gravity measu rementon 09-08-2021 Specific gravity (U) [Rel density] 1.005 1.002-1.030 [facility] Work Phone: Urobilinogen Auto test strip Ql (U)on 09-08-2021 Urobilinogen Ql (U) Normal mg/dl Normal [facility] Work Phone: Basophil percentageon 2021 Creatinine [Mass/Vol] 1.2 mg/dL 0.70-1.30 [facility] Work Phone: Laboratory - Chemistry and C hemistry - challengeon 07-22-2021 GFR/1.73 sq M.predicted among non-blacks MDRD (S/P/Bld) [Vol rate/Area] 60.0000 mL/min/{1.73_m2} >60 [facility] Work Phone: Office Visit: pulmonary nodu le and COPDon 02-24-2017 Documentation of current medications (procedure) Done Invalid Interpretation Code [facility] Work Phone: Fall risk assessment No Invalid Interpretation Code [facility] Work Phone: Protein mass conc Done Invalid Interpretation Code [facility] Work Phone: Tobacco smoking status NHIS Current every day smoker Invalid Interpretation Code [facility] Work Phone: Tobacco use CPHS Current every day smoker Invalid Interpretation Code [facility] Work Phone: Lab Report: CREATININE FINGE RSTICKon 02-14-2017 EGFR WB 47.0000 mL/min Low >60 [facility] Work Phone: Office Visit: CT scanon Documentation of current medications (procedure) Done Invalid Interpretation Code [facility] Work Phone: Fall risk assessment No Invalid Interpretation Code [facility] Work Phone: Protein mass conc Done [facility] Work Phone: Tobacco smoking status CAIS Current every day smoker [facility] Work Phone: Tobacco use CP Current every day smoker Invalid Interpretation Code [facility] Work Phone: Vital Signs Date Time Vital Sign Value Performing Clinician Faci lity 03-07-2025 14:24-0400 Body temperature 98 [degF] Dr. Shoshana Ulrich MD Work Phone: [facility] 03-07-2025 14:24-0400 Diastolic blood pressure 57 mm[Hg] Dr. Shoshana Ulrich MD Work Phone: [facility] 03-07-2025 14:24-0400 Heart rate 64 /min Dr. Shoshana Ulrich MD Work Phone: [facility] 03-07-2025 14:24-0400 Inhaled oxygen flow rate 4 L/min Dr. Shoshana Ulrich MD Work Phone: [phone] [place] [address] 03-07-2025 14:24-0400 Respiratory rate 16 /min Dr. Shoshana Ulrich MD Work Phone: [phone])[phone] [place] [address] 03-07-2025 14:24-0400 SaO2% (BldA) [Mass fraction] 96 % Dr. Shoshana Ulrich MD Work Phone: [phone])104-554967 [place] [address] 03-07-2025 14:24-0400 Systolic blood pressure 104 mm[Hg] Dr. Shoshana Ulrich MD Work Phone: 8([phone])079-830664 [place] [address] 03-04-2025 20:45-0400 Body height 165.[address] Shoshana Ulrich MD Work Phone: [phone])785-992464 [place] [address] 03-04-2025 20:45-0400 Body mass index (BMI) [Ratio] 22.4 kg/m2 Dr. Shoshana Ulrich MD Work Phone: 2(908)937-440267 [place] [address] 03-04-2025 20:45-0400 Body weight 61.[address] Shoshana Ulrich MD Work Phone: 6(711)651-719664 [place] [address] 02-21-2025 22:10-0400 Body temperature 97.7 [degF] Dr. Shoshana Ulrich MD Work Phone: [phone])[phone] [place] [address] 02-21-2025 22:10-0400 Diastolic blood pressure 76 mm[Hg] Dr. Shoshana Ulrich MD Work Phone: 6(702)[phone] [place] [address] 02-21-2025 22:10-0400 Heart rate 72 /min Dr. Shoshana Ulrich MD Work Phone: [phone] [place] [address] 02-21-2025 22:10-0400 Respiratory rate 16 /min Dr. Shoshana Ulrich MD Work Phone: [phone])[phone] [place] [address] 02-21-2025 22:10-0400 SaO2% (BldA) [Mass fraction] 97 % Dr. Shoshana Ulrich MD Work Phone: [phone])955-187966 [place] [address] 02-21-2025 22:10-0400 Systolic blood pressure 127 mm[Hg] Dr. Shoshana Ulrich MD Work Phone: [phone])258-877467 [place] [address] 02-21-2025 18:11-0400 Body mass index (BMI) [Ratio] 23.7 kg/m2 Dr. Shoshana Ulrich MD Work Phone: 4(885)961-371464 [place] [address] 02-21-2025 18:11-0400 Body weight 64.[address] Shoshana Ulrich MD Work Phone: [phone])174-952764 [place] [address] 02-19-2025 10:35-0400 Body temperature 97.8 [degF] Dr. Shoshana Ulrich MD Work Phone: 3(565)408-371064 [place] [address] 02-19-2025 10:35-0400 Diastolic blood pressure 65 mm[Hg] Dr. Shoshana Ulrich MD Work Phone: [phone])935-854264 [place] [address] 02-19-2025 10:35-0400 Heart rate 71 /min Dr. Shoshana Ulrich MD Work Phone: 0(689)[phone] [place] [address] 02-19-2025 10:35-0400 Respiratory rate 16 /min Dr. Shoshana Ulrich MD Work Phone: 2(524)862-939767 [place] [address] 02-19-2025 10:35-0400 SaO2% (BldA) [Mass fraction] 100 % Dr. Shoshana Ulrich MD Work Phone: 4(498)355-594567 [place] [address] 02-19-2025 10:35-0400 Systolic blood pressure 117 mm[Hg] Dr. Shoshana Ulrich MD Work Phone: [phone] [place] [address] 02-19-2025 08:27-0400 Body height 165.[address] Shoshana Ulrich MD Work Phone: 2(120)[phone] [place] [address] 02-12-2025 10:37-0400 Body height 165.[address] Shoshana Ulrich MD Work Phone: [facility] 02-12-2025 10:37-0400 Body mass index (BMI) [Ratio] 21.9 kg/m2 Dr. Shoshana Ulrich MD Work Phone: [facility] 02-12-2025 10:37-0400 Body weight 59.[address] Shoshana Ulrich MD Work Phone: [facility] 02-12-2025 10:37-0400 Diastolic blood pressure 72 mm[Hg] Dr. Shoshana Ulrich MD Work Phone: [facility] 02-12-2025 10:37-0400 Heart rate 72 /min Dr. Shoshana Ulrich MD Work Phone: [facility] 02-12-2025 10:37-0400 Respiratory rate 18 /min Dr. Shoshana Ulrich MD Work Phone: [facility] 02-12-2025 10:37-0400 Systolic blood pressure 135 mm[Hg] Dr. Shoshana Ulrich MD Work Phone: [facility] 01-09-2025 10:00-0400 Body temperature 98 [degF] Dr. Shoshana Ulrich MD Work Phone: [facility] 01-09-2025 10:00-0400 Diastolic blood pressure 62 mm[Hg] Dr. Shoshana Ulrich MD Work Phone: [facility] 01-09-2025 10:00-0400 Heart rate 66 /min Dr. Shoshana Ulrich MD Work Phone: [facility] 01-09-2025 10:00-0400 Respiratory rate 16 /min Dr. Shoshana Ulrich MD Work Phone: [facility] 01-09-2025 10:00-0400 SaO2% (BldA) [Mass fraction] 93 % Dr. Shoshana Ulrich MD Work Phone: [facility] 01-09-2025 10:00-0400 Systolic blood pressure 142 mm[Hg] Dr. Shoshana Ulrich MD Work Phone: [facility] 12-14-2024 12:16-0400 Body height 167.6 cm Olga Christianson PA-C Work Phone: [facility] 12-14-2024 12:16-0400 Body mass index (BMI) [Ratio] 22.88 kg/m2 Olga Christianson PA-C Work Phone: [facility] 12-14-2024 12:16-0400 Body weight 64.3 kg Olga Christianson PA-C Work Phone: [facility] 12-14-2024 12:16-0400 Diastolic blood pressure 66 mm[Hg] Olga Christianson PA-C Work Phone: [facility] 12-14-2024 12:16-0400 Heart rate 75 /min Olga Christianson PA-C Work Phone: [facility] 12-14-2024 12:16-0400 SaO2% (BldA) [Mass fraction] 97 % Olga Christianson PA-C Work Phone: [facility] 12-14-2024 12:16-0400 Systolic blood pressure 126 mm[Hg] Olga Christianson PA-C Work Phone: [facility] 11-21-2024 11:40-0400 Body temperature 98 [degF] Dr. Shoshana Ulrich MD Work Phone: [facility] 11-21-2024 11:40-0400 Body weight 65.[address] Shoshana Ulrich MD Work Phone: [facility] 11-21-2024 11:40-0400 Diastolic blood pressure 67 mm[Hg] Dr. Shoshana Ulrich MD Work Phone: [facility] 11-21-2024 11:40-0400 Heart rate 90 /min Dr. Shoshana Ulrich MD Work Phone: [facility] 11-21-2024 11:40-0400 Respiratory rate 16 /min Dr. Shoshana Ulrich MD Work Phone: [facility] 11-21-2024 11:40-0400 SaO2% (BldA) [Mass fraction] 96 % Dr. Shoshana Ulrich MD Work Phone: 6(527)[phone] [place] [address] 11-21-2024 11:40-0400 Systolic blood pressure 128 mm[Hg] Dr. Shoshana Ulrich MD Work Phone: 2(084)[phone] [place] [address] 11-06-2024 12:00-0400 Body temperature 97.8 [degF] Dr. Shoshana Ulrich MD Work Phone: 6(735)[phone] [place] [address] 11-06-2024 12:00-0400 Diastolic blood pressure 67 mm[Hg] Dr. Shoshana Ulrich MD Work Phone: [facility] 11-06-2024 12:00-0400 Heart rate 79 /min Dr. Shoshana Ulrich MD Work Phone: [facility] 11-06-2024 12:00-0400 Respiratory rate 16 /min Dr. Shoshana Ulrich MD Work Phone: [facility] 11-06-2024 12:00-0400 SaO2% (BldA) [Mass fraction] 93 % Dr. Shoshana Ulrich MD Work Phone: [facility] 11-06-2024 12:00-0400 Systolic blood pressure 169 mm[Hg] Dr. Shoshana Ulrich MD Work Phone: [facility] 11-05-2024 11:33-0400 Body height 165.[address] Shoshana Ulrich MD Work Phone: [facility] 11-05-2024 11:33-0400 Body mass index (BMI) [Ratio] 24.3 kg/m2 Dr. Shoshana Ulrich MD Work Phone: [facility] 11-05-2024 11:33-0400 Body weight 66.[address] Shoshana Ulrich MD Work Phone: [facility] 11-05-2024 02:20-0400 Inhaled oxygen flow rate 2 L/min Dr. Shoshana Ulrich MD Work Phone: [facility] 11-02-2024 19:15-0400 Body temperature 92 [degF] Dr. Shoshana Ulrich MD Work Phone: [facility] 11-02-2024 19:15-0400 Diastolic blood pressure 74 mm[Hg] Dr. Shoshana Ulrich MD Work Phone: [facility] 11-02-2024 19:15-0400 Heart rate 77 /min Dr. Shoshana Ulrich MD Work Phone: [facility] 11-02-2024 19:15-0400 Respiratory rate 17 /min Dr. Shoshnaa Ulrich MD Work Phone: [facility] 11-02-2024 19:15-0400 SaO2% (BldA) [Mass fraction] 98 % Dr. Shoshana Ulrich MD Work Phone: [facility] 11-02-2024 19:15-0400 Systolic blood pressure 139 mm[Hg] Dr. Shoshana Ulrich MD Work Phone: [facility] 11-02-2024 14:03-0400 Body mass index (BMI) [Ratio] 22.1 kg/m2 Dr. Shoshana Ulrich MD Work Phone: [facility] 11-02-2024 14:03-0400 Body weight [address] Shoshana Ulrich MD Work Phone: [facility] 11-02-2024 14:01-0400 Body height 172.[address] Shoshana Ulrich MD Work Phone: [facility] 07-13-2024 12:57-0500 Body height 172.[address] Shoshana Ulrich MD Work Phone: [facility] 07-13-2024 12:57-0500 Body mass index (BMI) [Ratio] 23.2 kg/m2 Dr. Shoshana Ulrich MD Work Phone: 0(917)[phone] [place] [address] 07-13-2024 12:57-0500 Body temperature 97.8 [degF] Dr. Shoshana Ulrich MD Work Phone: 7(314)[phone] [place] [address] 07-13-2024 12:57-0500 Body weight 69.[address] Shoshana Ulrich MD Work Phone: 6(895)[phone] [place] [address] 07-13-2024 12:57-0500 Diastolic blood pressure 74 mm[Hg] Dr. Shoshana Ulrich MD Work Phone: [facility] 07-13-2024 12:57-0500 Heart rate 68 /min Dr. Shoshana Ulrich MD Work Phone: [facility] 07-13-2024 12:57-0500 Respiratory rate 16 /min Dr. Shoshana Ulrich MD Work Phone: [facility] 07-13-2024 12:57-0500 SaO2% (BldA) [Mass fraction] 96 % Dr. Shoshana Ulrich MD Work Phone: [facility] 07-13-2024 12:57-0500 Systolic blood pressure 130 mm[Hg] Dr. Shoshana Ulrich MD Work Phone: [facility] 06-26-2024 16:19-0500 Body temperature 97.8 [degF] Dr. Shoshana Ulrich MD Work Phone: [facility] 06-26-2024 16:19-0500 Body weight 69.[address] Shoshana Ulrich MD Work Phone: [facility] 06-26-2024 16:19-0500 Diastolic blood pressure 71 mm[Hg] Dr. Shoshana Ulrich MD Work Phone: [facility] 06-26-2024 16:19-0500 Heart rate 76 /min Dr. Shoshana Ulrich MD Work Phone: [facility] 06-26-2024 16:19-0500 Respiratory rate 16 /min Dr. Shoshana Ulrich MD Work Phone: [facility] 06-26-2024 16:19-0500 SaO2% (BldA) [Mass fraction] 94 % Dr. Shoshana Ulrich MD Work Phone: [facility] 06-26-2024 16:19-0500 Systolic blood pressure 144 mm[Hg] Dr. Shoshana Ulrich MD Work Phone: [facility] 06-20-2024 19:30-0500 Body temperature 98.1 [degF] Dr. Shoshana Ulrich MD Work Phone: [facility] 06-20-2024 19:30-0500 Diastolic blood pressure 78 mm[Hg] Dr. Shoshana Ulrich MD Work Phone: [facility] 06-20-2024 19:30-0500 Heart rate 82 /min Dr. Shoshana Ulrich MD Work Phone: [facility] 06-20-2024 19:30-0500 Respiratory rate 16 /min Dr. Shoshana Ulrich MD Work Phone: [facility] 06-20-2024 19:30-0500 SaO2% (BldA) [Mass fraction] 98 % Dr. Shoshana Ulrich MD Work Phone: [facility] 06-20-2024 19:30-0500 Systolic blood pressure 140 mm[Hg] Dr. Shoshana Ulrich MD Work Phone: [facility] 06-20-2024 16:05-0500 Body mass index (BMI) [Ratio] 23.2 kg/m2 Dr. Shoshana Ulrich MD Work Phone: [facility] 06-20-2024 16:05-0500 Body weight 69.[address] Shoshana Ulrich MD Work Phone: [facility] 05-26-2024 13:22-0500 Body temperature 98 [degF] Dr. Shoshana Ulrich MD Work Phone: [facility] 05-26-2024 13:22-0500 Diastolic blood pressure 80 mm[Hg] Dr. Shoshana Ulrich MD Work Phone: [facility] 05-26-2024 13:22-0500 Heart rate 85 /min Dr. Shoshana Ulrich MD Work Phone: [facility] 05-26-2024 13:22-0500 Respiratory rate 18 /min Dr. Shoshana Ulrich MD Work Phone: [facility] 05-26-2024 13:22-0500 SaO2% (BldA) [Mass fraction] 99 % Dr. Shoshana Ulrich MD Work Phone: [facility] 05-26-2024 13:22-0500 Systolic blood pressure 140 mm[Hg] Dr. Shoshana Ulrich MD Work Phone: [facility] 05-26-2024 11:52-0500 Body mass index (BMI) [Ratio] 23.1 kg/m2 Dr. Shoshana Ulrich MD Work Phone: [facility] 05-26-2024 11:52-0500 Body weight 68.[address] Shoshana Ulrich MD Work Phone: [facility] 09-21-2023 14:38-0400 Diastolic blood pressure 64 mm[Hg] Dr. Shoshana Ulrich Work Phone: [facility] 09-21-2023 14:38-0400 Heart rate 84 /min Dr. Shoshana Ulrich Work Phone: [facility] 09-21-2023 14:38-0400 Respiratory rate 18 /min Dr. Shoshana Ulrich Work Phone: [facility] 09-21-2023 14:38-0400 SaO2% (BldA) [Mass fraction] 95 % Dr. Shoshana Ulrich Work Phone: [facility] 09-21-2023 14:38-0400 Systolic blood pressure 113 mm[Hg] Dr. Shoshana Ulrich Work Phone: [facility] 09-21-2023 08:42-0400 Body temperature 98.3 [degF] Dr. Shoshana Ulrich Work Phone: [facility] 09-21-2023 06:00-0400 Body mass index (BMI) [Ratio] 22.7 kg/m2 Dr. Shoshana Ulrich Work Phone: [facility] 09-21-2023 06:00-0400 Body weight 68.[address] Shoshana Ulrich Work Phone: [facility] 09-20-2023 13:02-0400 Body height 172.[address] Shoshana Ulrich Work Phone: [facility] 09-19-2023 13:05-0400 Body temperature 98.2 [degF] Dr. Shoshana Ulrich Work Phone: [facility] 09-19-2023 13:05-0400 Diastolic blood pressure 84 mm[Hg] Dr. Shoshana Ulrich Work Phone: [facility] 09-19-2023 13:05-0400 Heart rate 76 /min Dr. Shoshana Ulrich Work Phone: [facility] 09-19-2023 13:05-0400 Respiratory rate 15 /min Dr. Shoshana Ulrich Work Phone: [facility] 09-19-2023 13:05-0400 SaO2% (BldA) [Mass fraction] 98 % Dr. Shoshana Ulrich Work Phone: [facility] 09-19-2023 13:05-0400 Systolic blood pressure 132 mm[Hg] Dr. Shoshana Ulrich Work Phone: [facility] 09-19-2023 08:25-0400 Body height 172.[address] Shoshana Ulrich Work Phone: [facility] 09-19-2023 08:25-0400 Body mass index (BMI) [Ratio] 22 kg/m2 Dr. Shoshana Ulrich Work Phone: [facility] 09-19-2023 08:25-0400 Body weight 65.[address] Shoshana Ulrich Work Phone: [facility] 07-21-2023 12:36-0500 Diastolic blood pressure 72 mm[Hg] [facility] 07-21-2023 12:36-0500 Heart rate 75 /min [facility] 07-21-2023 12:36-0500 Respiratory rate 18 /min [facility] 07-21-2023 12:36-0500 SaO2% (BldA) [Mass fraction] 98 % [facility] 07-21-2023 12:36-0500 Systolic blood pressure 127 mm[Hg] [facility] 07-21-2023 08:18-0500 Body height 172.72 cm [facility] 07-21-2023 08:18-0500 Body mass index (BMI) [Ratio] 23.8 kg/m2 [facility] 07-21-2023 08:18-0500 Body temperature 98.3 [degF] [facility] 07-21-2023 08:18-0500 Body weight 70.9 kg [facility] 11-04-2022 13:31-0400 Body temperature 97.7 [degF] Dr. Shoshana Ulrich Work Phone: [facility] 11-04-2022 13:31-0400 Diastolic blood pressure 75 mm[Hg] Dr. Shoshana Ulrich Work Phone: [facility] 11-04-2022 13:31-0400 Heart rate 65 /min Dr. Shoshana Ulrich Work Phone: [facility] 11-04-2022 13:31-0400 Respiratory rate 18 /min Dr. Shoshana Ulrich Work Phone: [facility] 11-04-2022 13:31-0400 SaO2% (BldA) [Mass fraction] 94 % Dr. Shoshana Ulrich Work Phone: [facility] 11-04-2022 13:31-0400 Systolic blood pressure 139 mm[Hg] Dr. Shoshana Ulrich Work Phone: [facility] 11-04-2022 06:53-0400 Inhaled oxygen flow rate 2 L/min Dr. Shoshana Ulrich Work Phone: [facility] 11-03-2022 09:18-0400 Body height 172.[address] Shoshana Ulrich Work Phone: [facility] 11-03-2022 09:18-0400 Body mass index (BMI) [Ratio] 23.1 kg/m2 Dr. Shoshana Ulrich Work Phone: [facility] 11-03-2022 09:18-0400 Body weight 68.[address] Shoshana Ulrich Work Phone: [facility] 10-07-2022 08:03-0400 Body height 172.[address] Shoshana Ulrich Work Phone: [facility] 10-07-2022 08:03-0400 Body mass index (BMI) [Ratio] 25 kg/m2 Dr. Shoshana Ulrich Work Phone: [facility] 10-07-2022 08:03-0400 Body temperature 97.9 [degF] Dr. Shoshana Ulrich Work Phone: [facility] 10-07-2022 08:03-0400 Body weight 74.[address] Shoshana Ulrich Work Phone: [facility] 10-07-2022 08:03-0400 Diastolic blood pressure 96 mm[Hg] Dr. Shoshana Ulrich Work Phone: [facility] 10-07-2022 08:03-0400 Heart rate 80 /min Dr. Shoshana Ulrich Work Phone: [facility] 10-07-2022 08:03-0400 Respiratory rate 14 /min Dr. Shoshana Ulrich Work Phone: [facility] 10-07-2022 08:03-0400 SaO2% (BldA) [Mass fraction] 94 % Dr. Shoshana Ulrich Work Phone: [facility] 10-07-2022 08:03-0400 Systolic blood pressure 164 mm[Hg] Dr. Shoshana Ulrich Work Phone: [facility] 07-02-2022 08:10-0500 Body mass index (BMI) [Ratio] 24.7 kg/m2 Dr. Shoshana Ulrich Work Phone: [facility] 07-02-2022 08:10-0500 Body temperature 98.4 [degF] Dr. Shoshana Ulrich Work Phone: [facility] 07-02-2022 08:10-0500 Body weight 73.[address] Shoshana Ulrich Work Phone: [facility] 07-02-2022 08:10-0500 Diastolic blood pressure 88 mm[Hg] Dr. Shoshana Ulrich Work Phone: [facility] 07-02-2022 08:10-0500 Heart rate 99 /min Dr. Shoshana Ulrich Work Phone: [facility] 07-02-2022 08:10-0500 Respiratory rate 16 /min Dr. Shoshana Ulrich Work Phone: [facility] 07-02-2022 08:10-0500 SaO2% (BldA) [Mass fraction] 92 % Dr. Shoshana Ulrich Work Phone: [facility] 07-02-2022 08:10-0500 Systolic blood pressure 152 mm[Hg] Dr. Shoshana Ulrich Work Phone: [facility] 04-09-2022 12:06-0500 Body height 172.72 cm [facility] 04-09-2022 12:06-0500 Body mass index (BMI) [Ratio] 25 kg/m2 [facility] 04-09-2022 12:06-0500 Body temperature 98.4 [degF] [facility] 04-09-2022 12:06-0500 Body weight 74.84 kg [facility] 04-09-2022 12:06-0500 Diastolic blood pressure 79 mm[Hg] [facility] 04-09-2022 12:06-0500 Heart rate 89 /min [facility] 04-09-2022 12:06-0500 Respiratory rate 18 /min [facility] 04-09-2022 12:06-0500 SaO2% (BldA) [Mass fraction] 99 % [facility] 04-09-2022 12:06-0500 Systolic blood pressure 108 mm[Hg] [facility] 04-05-2022 14:41-0500 Body temperature 97.8 [degF] [facility] 04-05-2022 14:41-0500 Diastolic blood pressure 74 mm[Hg] [facility] 04-05-2022 14:41-0500 Heart rate 82 /min [facility] 04-05-2022 14:41-0500 Respiratory rate 15 /min [facility] 04-05-2022 14:41-0500 SaO2% (BldA) [Mass fraction] 95 % [facility] 04-05-2022 14:41-0500 Systolic blood pressure 121 mm[Hg] [facility] 04-05-2022 09:02-0500 Body mass index (BMI) [Ratio] 25 kg/m2 [facility] 04-05-2022 09:02-0500 Body weight 74.6 kg [facility] 09-08-2021 13:35-0400 Diastolic blood pressure 83 mm[Hg] Dr. Shoshana Ulrich Work Phone: [facility] Work Phone: 09-08-2021 13:35-0400 Heart rate 85 /min Dr. Shoshana Ulrich Work Phone: [facility] Work Phone: 09-08-2021 13:35-0400 Respiratory rate 15 /min Dr. Shoshana Ulrich Work Phone: [facility] Work Phone: 09-08-2021 13:35-0400 SaO2% (BldA) [Mass fraction] 99 % Dr. Shoshana Ulrich Work Phone: [facility] Work Phone: 09-08-2021 13:35-0400 Systolic blood pressure 135 mm[Hg] Dr. Shoshana Ulrich Work Phone: [facility] Work Phone: 09-08-2021 10:06-0400 Body height 173.[address] Shoshana Ulrich Work Phone: [facility] Work Phone: 09-08-2021 10:06-0400 Body mass index (BMI) [Ratio] 23.9 kg/m2 Dr. Shoshana Ulrich Work Phone: [facility] Work Phone: 09-08-2021 10:06-0400 Body temperature 97.2 [degF] Dr. Shoshana Ulrich Work Phone: [facility] Work Phone: 09-08-2021 10:06-0400 Body weight 72.[address] Shoshana Ulrich Work Phone: [facility] Work Phone: 09-01-2021 13:17-0400 Body height 172.[address] Shoshana Ulrich Work Phone: [facility] Work Phone: 09-01-2021 13:17-0400 Body weight 74.[address] Shoshana Ulrich Work Phone: [facility] Work Phone: 09-01-2021 13:17-0400 Heart rate 91 /min Dr. Shoshana Ulrich Work Phone: [facility] Work Phone: 09-01-2021 13:17-0400 SaO2% (BldA) [Mass fraction] 93 % Dr. Shoshana Ulrich Work Phone: [facility] Work Phone: 07-14-2021 10:04-0500 Body mass index (BMI) [Ratio] 24.4 kg/m2 Dr. Shoshana Ulrich Work Phone: [facility] Work Phone: 07-14-2021 10:04-0500 Body temperature 97.6 [degF] Dr. Shoshana Ulrich Work Phone: [facility] Work Phone: 07-14-2021 10:04-0500 Diastolic blood pressure 65 mm[Hg] Dr. Shoshana Ulrich Work Phone: [facility] Work Phone: 07-14-2021 10:04-0500 Heart rate 92 /min Dr. Shoshana Ulrich Work Phone: [facility] Work Phone: 07-14-2021 10:04-0500 Respiratory rate 18 /min Dr. Shoshana Ulrich Work Phone: [facility] Work Phone: 07-14-2021 10:04-0500 Systolic blood pressure 131 mm[Hg] Dr. Shoshana Ulrich Work Phone: [facility] Work Phone: 07-14-2021 09:04-0500 Body mass index (BMI) [Ratio] 24.4 kg/m2 Dr. Shoshana Ulrich Work Phone: [facility] Work Phone: 07-14-2021 09:04-0500 Body temperature 97.6 [degF] Dr. Shoshana Ulrich Work Phone: [facility] Work Phone: 07-14-2021 09:04-0500 Diastolic blood pressure 65 mm[Hg] Dr. Shoshana Ulrich Work Phone: [facility] Work Phone: 07-14-2021 09:04-0500 Heart rate 92 /min Dr. Shoshana Ulrich Work Phone: [facility] Work Phone: 07-14-2021 09:04-0500 Respiratory rate 18 /min Dr. Shoshana Ulrich Work Phone: [facility] Work Phone: 07-14-2021 09:04-0500 Systolic blood pressure 131 mm[Hg] Dr. Shoshana Ulrich Work Phone: [facility] Work Phone: 07-14-2021 00:14-0500 Body weight 72.[address] Shoshana Ulrich Work Phone: [facility] Work Phone: 07-13-2021 23:14-0500 Body weight 72.[address] Shoshana Ulrich Work Phone: [facility] Work Phone: 06-30-2021 09:25-0500 Body mass index (BMI) [Ratio] 24.4 kg/m2 Dr. Shoshana Ulrich Work Phone: [facility] Work Phone: 06-30-2021 09:25-0500 Body temperature 97.3 [degF] Dr. Shoshana Ulrich Work Phone: [facility] Work Phone: 06-30-2021 09:25-0500 Diastolic blood pressure 76 mm[Hg] Dr. Shoshana Ulrich Work Phone: [facility] Work Phone: 06-30-2021 09:25-0500 Heart rate 83 /min Dr. Shoshana Ulrich Work Phone: [facility] Work Phone: 06-30-2021 09:25-0500 Respiratory rate 18 /min Dr. Shoshana Ulrich Work Phone: [facility] Work Phone: 06-30-2021 09:25-0500 Systolic blood pressure 156 mm[Hg] Dr. Shoshana Ulrich Work Phone: [facility] Work Phone: 06-15-2021 23:09-0500 Body weight 72.[address] Shoshana Ulrich Work Phone: [facility] Work Phone: 06-09-2021 09:36-0500 Body mass index (BMI) [Ratio] 24.4 kg/m2 Dr. Shoshana Ulrich Work Phone: [facility] Work Phone: 06-09-2021 09:36-0500 Body temperature 96.6 [degF] Dr. Shoshana Ulrich Work Phone: [facility] Work Phone: 06-09-2021 09:36-0500 Diastolic blood pressure 64 mm[Hg] Dr. Shoshana Ulrich Work Phone: [facility] Work Phone: 06-09-2021 09:36-0500 Heart rate 86 /min Dr. Shoshana Ulrich Work Phone: [facility] Work Phone: 06-09-2021 09:36-0500 Respiratory rate 18 /min Dr. Shoshana Ulrich Work Phone: [facility] Work Phone: 06-09-2021 09:36-0500 Systolic blood pressure 113 mm[Hg] Dr. Shoshana Ulrich Work Phone: [facility] Work Phone: 05-26-2021 09:21-0500 Body weight 72.[address] Shoshana Ulrich Work Phone: [facility] Work Phone: 02-24-2017 06:22-0400 BMI (Body Mass Index) 26.15 kg/m2 Sheila Malloy [facility] Work Phone: 02-24-2017 06:22-0400 Body Temperature 98 [degF] Sheila Malloy [facility] Work Phone: 02-24-2017 06:22-0400 BP Diastolic 80 mm[Hg] Sheila Malloy [facility] Work Phone: 02-24-2017 06:22-0400 BP Systolic 163 mm[Hg] Sheila Gama [facility] Work Phone: 02-24-2017 06:22-0400 Height 172.72 cm Sheila Gama [facility] Work Phone: 02-24-2017 06:22-0400 Pulse (Heart Rate) 73 /min She[facility] Malloy [facility] Work Phone: 02-24-2017 06:22-0400 Respiratory Rate 18 /min Sheila Malloy [facility] Work Phone: 02-24-2017 06:22-0400 Weight 78.02 kg Sheila Gama [facility] Work Phone: 11-15-2016 10:01-0400 BMI (Body Mass Index) 25.69 kg/m2 Geetha Yensho [employer] [facility] Work Phone: 11-15-2016 10:01-0400 Body Temperature 97.3 [degF] Geetha Yensho [facility] [employer] [facility] Work Phone: 11-15-2016 10:01-0400 BP Diastolic 71 mm[Hg] Geetha Yensho [facility] [employer] [facility] Work Phone: 11-15-2016 10:01-0400 BP Systolic 106 mm[Hg] Geetha Yensho [facility] [facility] Work Phone: 11-15-2016 10:01-0400 Height 172.72 cm Geetha Yensho [employer] [facility] Work Phone: 11-15-2016 10:01-0400 Pulse (Heart Rate) 98 /min Geetha Yensho [employer] [facility] Work Phone: 11-15-2016 10:01-0400 Respiratory Rate 18 /min Geetha Yensho [facility] [facility] Work Phone: 11-15-2016 10:01-0400 Weight 76.66 kg Geetha Hatch [facility] [employer] [facility] Work Phone: Encounters Encounter Date Encounter Type Care Provider Facility Start: 03-27-2025 End: 03-27-2025 ambulatory [facility] [place] [place]: 03-13-2025 ambulatory [facility] Facility: [facility] Start: 03-08-2025 ambulatory [facility] Facility: [facility] Start: 03-08-2025 Wilfredo Razo MD -[facility] Start: 03-07-2025 Dr. Sant[address] Angel DO [facility] Work Phone: Start: 03-06-[address] Dr. [address] Angel DO [facility] Work Phone: Start: 03-05-[address] Dr. [address] Angel DO [facility] Work Phone: Start: 03-04-2025 ambulatory Santana Angel Facility:[facility] Start: 03-04-2025 End: 03-07-2025 Evaluation and management of inpatient Dr. Shoshana Ulrich MD Work Phone: -Medical Surgical 3 Start: 03-04-2025 End: 03-07-2025 Dr. Santana Angel DO -Medical Surgical 3 Work Phone: Start: 03-01-2025 End: 03-01-2025 Dr. Sai Crockett MD -[facility] Work Phone: Start: 03-01-2025 End: 03-01-2025 ambulatory Sai Crockett Facility:[facility] Start: 02-21-2025 End: 02-21-2025 Dr. Chito Werner MD -Emergency Departmen t Work Phone: Start: 02-21-2025 End: 02-21-2025 Emergency department patient visit Dr. Chito Werner MD -Emergency Department Work Phone: Start: 02-19-2025 End: 02-19-2025 Dr. Chito Werner MD -Emergency [facility] t Work Phone: Start: 02-19-2025 End: 02-19-2025 Emergency department patient visit Dr. Shoshana Ulrich MD Work Phone: -Emergency Department Work Phone: Start: 02-12-2025 Encounter for preprocedural cardiovascular examination Blas Arellano [facility] Start: 02-12-2025 End: 02-12-[address] Blas Arellano MD -[facility] Work Phone: Start: 02-12-2025 End: 02-12-[address] Blas Arellano MD [facility] Start: 02-12-2025 End: 02-12-2025 Dr. Blas Arellano MD -[facility] Work Phone: Start: 02-12-2025 End: 02-12-[address] Shoshana Ulrich MD Work Phone: -[facility] Start: 02-06-2025 ambulatory [facility] Facility: [facility] Start: 01-24-2025 End: 01-24-[address] Shoshana Ulrich MD Work Phone: -Laboratory Danni Thompson [facility] Start: 01-24-2025 End: 01-24-[address] Shoshana Ulrich MD -Laboratory Danni Connly [facility] Start: 01-24-2025 End: 01-24-2025 Dr. Shoshana Ulrich MD -Laboratory Danni Connly [facility] Start: 01-24-2025 End: 01-24-2025 ambulatory [facility] Facility:[facility] Start: 01-11-2025 ambulatory Sam Foster [facility] Start: 01-09-2025 End: 01-09-2025 Patient encounter procedure Eduardo WALKER [facility] Work Phone: Start: 01-09-2025 End: 01-09-2025 Edurado Reno [facility] Work Phone: Start: 01-09-2025 End: 01-09-[address] Shoshana Ulrich MD Work Phone: -[facility] Start: 12-19-2024 Non-patient / Non-visit Dr. Santana jolly MD -[facility] Start: 12-19-2024 End: 12-19-[address] Shoshana Ulrich MD Work Phone: -Cardiovascular Services Start: 12-19-2024 End: 12-19-2024 Patient encounter procedure Kristen WALKER -Cardiovascular Services Work Phone: Start: 12-19-2024 End: 12-19-2024 Dr. Santana Mason MD -[facility] Start: 12-19-2024 End: 12-19-2024 ambulatory Shoshana Ulrich Facility:[facility] Start: 12-14-2024 End: 12-14-2024 Patient encounter procedure Olga Christianson PA-C Work Phone: [facility] [place] Comment on above: Neoplasm of unspecif ied behavior of bone, soft tissue, and skin (Primary Dx); Perineal numbness Start: 12-14-2024 End: 12-14-2024 ambulatory OLGA CHRISTIANSON Facility:[facility] Start: 11-21-2024 End: 11-21-2024 Patient encounter procedure Kristen WALKER -[facility] Work Phone: Start: 11-21-2024 End: 11-21-2024 Kristen WALKER [facility] Work Phone: Start: 11-21-2024 End: 11-21-[address] Shoshana Ulrich MD Work Phone: -[facility] Start: 11-14-2024 End: 11-14-2024 Telephone encounter Neurology Provider Neurology Comment on above: Appointment (Patient scheduled incorrectly as advised per provider- he advised should be with Neuromuscular. ) Start: 11-12-2024 End: 11-12-[address] Shoshana Ulrich MD Work Phone: -Laboratory Danni Thompson [facility] Start: 11-12-2024 End: 11-12-2024 Patient encounter procedure Alyce Gibson TALENT RECRUITER-C -Laboratory [facility] Start: 11-12-2024 End: 11-12-2024 ambulatory [facility] Facility:[facility] Start: 11-06-2024 Non-patient / Non-visit Dr. Ethan Neal [facility] Work Phone: Start: 11-05-2024 Non-patient / Non-visit Dr. Ethan Neal [facility] Work Phone: Start: 11-05-2024 Non-patient / Non-visit Dr. Santana jolly MD -[facility] Start: 11-05-2024 End: 11-05-2024 ambulatory Blas Arellano [facility] Start: 11-05-2024 End: 11-05-2024 Non-patient / Non-visit Dr. Blas Arellano MD -[facility] Work Phone: Start: 11-04-2024 Non-patient / Non-visit Dr. Ethan Neal [facility] Work Phone: Start: 11-04-2024 ambulatory [facility] Start: 11-04-2024 Non-patient / Non-visit Dr. Santana jolly MD -[facility] Start: 11-03-2024 ambulatory [facility] Start: 11-03-2024 End: 11-06-2024 Evaluation and management of inpatient Dr. Daniel Neal DO [facility] Surgical 3 Work Phone: Start: 11-03-2024 Non-patient / Non-visit Dr. Rylie ledbetter MD -[facility] Work Phone: Start: 11-02-2024 Non-patient / Non-visit Dr. Leila GIRON -[facility] Work Phone: Start: 11-02-2024 ambulatory Rand Rollins Facility: [facility] Start: 11-02-2024 Evaluation and manag ement of inpatient Dr. Raghav Serrano DO -Medical Surgical 3 Work Phone: Start: 11-02-[address] Dario Ulrich MD Work Phone: [facility] Work Phone: Start: 07-24-2024 End: 07-24-[address] Shoshana Ulrich MD Work Phone: [facility] Work Phone: Start: 07-24-2024 End: 07-24-[address] Shoshana Ulrich MD -[facility], [facility] Start: 07-24-2024 End: 07-24-2024 ambulatory [facility] Facility:[facility] Start: 07-13-2024 End: 07-13-[address] Jose Figueroa MD -[facility] Work Phone: Start: 07-13-2024 End: 07-13-2024 ambulatory [facility] Start: 06-26-2024 End: 06-26-2024 Patient encounter procedure Kristen WALKER -[facility] Work Phone: Start: 06-26-2024 End: 06-26-2024 ambulatory [facility] Start: 06-20-2024 End: 06-20-2024 Emergency department patient visit Dr. Marco Antonio Garay DO -Emergency Department Work Phone: Start: 06-20-2024 ambulatory [facility] Start: 06-20-2024 Non-patient / Non-visit Dr. Santana jolly MD -[facility] Start: 06-20-2024 End: 06-20-[address] Sai Salazar DPM -Cardiovascular Services Work Phone: Start: 06-20-2024 End: 06-20-2024 ambulatory Shoshana Ulrich Facility:[facility] Start: 05-26-2024 End: 05-26-2024 Emergency department patient visit Dr. Santana Sandoval DO -Emergency Department Work Phone: Start: 04-17-2024 End: 04-17-[address] Shoshana Ulrich MD -Laboratory, [facility] Start: 04-17-2024 End: 04-17-2024 ambulatory Shoshana Mojgan Facility:[facility] Start: 09-21-2023 Non-patient / Non-visit Dr. Paul Ulrich Work Phone: [facility] Work Phone: Start: 09-20-2023 Non-patient / Non-visit Dr. Paul Ulrich Work Phone: [facility] Start: 09-20-2023 Non-patient / Non-visit Dr. Paul Ulrich Work Phone: [facility] Work Phone: Start: 09-19-2023 Non-patient / Non-visit Dr. Paul Ulrich Work Phone: [facility] Start: 09-19-2023 End: 09-21-2023 Evaluation and management of inpatient Dr. Shoshana Ulrihc Work Phone: [facility]-Medical Surgical 3 Work Phone: Start: 09-05-2023 End: 09-05-[address] Shoshana Ulrich Work Phone: [facility] Work Phone: Start: 09-05-2023 End: 09-05-[address] Shoshana Ulrich Work Phone: [facility]-Physical Therapy Work Phone: Start: 08-11-2023 End: 08-11-2023 Non-patient / Non-visit Dr. Shoshana Ulrich Work Phone: [facility] Work Phone: Start: 08-11-2023 End: 08-11-[address] Shoshana Ulrich Work Phone: [facility] Work Phone: Start: 08-11-2023 End: 08-11-[address] Shoshana Ulrich Work Phone: [facility]-Pulmonary Services/Neurology Work Phone: Start: 08-09-[address] Cecilia Ulrich Work Phone: [facility]-Physical Therapy Work Phone: Start: 07-21-2023 End: 07-21-2023 Emergency department patient visit [facility]-Emergency Department Work Phone: Start: 06-13-2023 End: 06-13-2023 ambulatory [facility] Work Phone: Start: 06-13-2023 End: 06-13-2023 Patient encounter procedure [facility]-MRI - [facility] Work Phone: Start: 04-06-2023 End: 04-06-2023 ambulatory [facility] Work Phone: Start: 04-06-2023 End: 04-06-2023 Patient encounter procedure [facility]-Radiology, [facility] Work Phone: Start: 12-10-2022 End: 12-10-[address] Shoshana Ulrich Work Phone: [facility] Work Phone: Start: 12-10-2022 End: 12-10-[address] Shoshana Ulrich Work Phone: [facility]-Laboratory Work Phone: Start: 11-03-2022 End: 11-04-2022 Evaluation and management of inpatient Dr. Shoshana Ulrich Work Phone: [facility]-Medical Surgical 3 Start: 11-03-2022 End: 11-04-[address] Shoshana Ulrich Work Phone: [facility] Work Phone: Start: 10-22-2022 Non-patient / Non-visit Dr. Paul Ulrich Work Phone: [facility] Start: 10-22-2022 End: 10-22-[address] Shoshana Ulrich Work Phone: [facility] Work Phone: Start: 10-22-2022 End: 10-22-[address] Shoshana Ulrich Work Phone: [facility]-Cardiovascul ar Services Start: 10-07-2022 Non-patient / Non-visit Dr. Paul Ulrich Work Phone: [facility] Start: 10-07-2022 End: 10-07-2022 Emergency department patient visit Dr. Shoshana Ulrich Work Phone: [facility]-Emergency Department Start: 07-23-2022 End: 07-23-[address] Shoshana Ulrich Work Phone: [facility] Work Phone: Start: 07-23-2022 End: 07-23-[address] Shoshana Ulrich Work Phone: [facility]-Laboratory, Specimen Start: 07-12-2022 End: 07-12-2022 Non-patient / Non-visit Dr. Shoshana Ulrich Work Phone: [facility] Start: 07-12-2022 End: 07-12-[address] Shoshana Ulrich Work Phone: [facility] Work Phone: Start: 07-12-2022 End: 07-12-[address] Shoshana Ulrich Work Phone: [facility]-Pulmonary Services/Neurology Start: 07-02-2022 End: 07-02-[address] Shoshana Ulrich Work Phone: [facility] Start: 04-09-2022 End: 04-09-2022 Emergency department patient visit [facility]-Emergency Department Start: 04-05-2022 End: 04-05-2022 Admission to same day surgery center [facility]-Surgical Day Care Start: 11-05-2021 End: 11-05-[address] Shoshana Ulrich Work Phone: [facility] Start: 09-08-2021 End: 09-08-2021 Emergency department patient visit Dr. Shoshana Ulrich Work Phone: [facility]-Emergency Department Start: 09-02-2021 Non-patient / Non-visit Dr. Paul Ulrich Work Phone: [facility] Start: 09-01-2021 End: 09-01-[address] Shoshana Ulrich Work Phone: [facility]-Pulmonary Services/Neurology Start: 08-27-2021 Non-patient / Non-visit Dr. Paul Ulrich Work Phone: [facility] Start: 08-27-2021 End: 08-27-[address] Shoshana Ulrich Work Phone: [facility]-Pulmonary Services/Neurology Start: 07-22-2021 End: 07-22-[address] [facility] Start: 07-14-2021 End: 07-15-[address] [facility] Ulrich [facility] Start: 06-30-2021 End: 07-13-[address] Shoshana Ulrich [facility] [place] Start: 06-09-2021 End: 06-15-[address] Shoshana Ulrich Work Phone: [facility] Procedures Date Procedure Procedure Detail Performing Clinician Start: 03-13-2025 Mean corpuscular hem oglobin concentration determination Dr. Shoshana Ulrich MD Work Phone: Start: 03-13-[address] Paul Ulrich MD Work Phone: Start: 03-13-2025 Nucleated red blood cell count procedure Dr. Shoshana Ulrich MD Work Phone: Start: 03-13-2025 Platelet mean volume determination Dr. Shoshana Ulrich MD Work Phone: Start: 03-13-2025 Total cholesterol:HD L ratio measurement Dr. Shoshana Ulrich MD Work Phone: Start: 03-13-[address] Shoshana Ulrich MD Work Phone: Start: 03-08-2025 Mean corpuscular hem oglobin concentration determination Dr. Shoshana Ulrich MD Work Phone: Start: 03-08-[address] Paul Ulrich MD Work Phone: Start: 03-08-2025 Nucleated red blood cell count procedure Dr. Shoshana Ulrich MD Work Phone: Start: 03-08-2025 Platelet mean volume determination Dr. Shoshana Ulrich MD Work Phone: Start: 03-05-[address] Shoshana Ulrich MD Work Phone: Start: 03-05-2025 Mean corpuscular hem oglobin concentration determination Dr. Shoshana Ulrich MD Work Phone: Start: 03-05-[address] Paul Ulrich MD Work Phone: Start: 03-05-2025 Nucleated red blood cell count procedure Dr. Shoshana Ulrich MD Work Phone: Start: 03-05-2025 Platelet mean volume determination Dr. Shoshana Ulrich MD Work Phone: Start: 03-04-2025 Urine microscopy: red cells Dr. Shoshana Ulrich MD Work Phone: Start: 03-04-2025 Urnls dip stick/tabl et reagent auto microscopy Dr. Shoshana Ulrich MD Work Phone: Start: 03-04-2025 CT of lumbar spine Dr. Shoshana Ulrich MD Work Phone: Start: 03-04-[address] Cecilia Ulrich MD Work Phone: Start: 03-01-2025 MRI of lumbar spine Dr. Shoshana Ulrich MD Work Phone: Start: 02-21-2025 Urine microscopy: red cells Dr. Shoshana Ulrich MD Work Phone: Start: 02-21-2025 Urnls dip stick/tabl et reagent auto microscopy Dr. Shoshana Ulrich MD Work Phone: Start: 02-21-2025 CT of abdomen and pe lvis without contrast Dr. Shoshana Ulrich MD Work Phone: Start: 02-21-[address] Shoshana Ulrich MD Work Phone: Start: 02-21-2025 Mean corpuscular hem oglobin concentration determination Dr. Shoshana Ulrich MD Work Phone: Start: 02-21-[address] Paul Ulrich MD Work Phone: Start: 02-21-2025 Nucleated red blood cell count procedure Dr. Shoshana Ulrich MD Work Phone: Start: 02-21-2025 Platelet mean volume determination Dr. Shoshana Ulrich MD Work Phone: Start: 02-21-[address] Cecilia Ulrich MD Work Phone: Start: 02-19-2025 Plain chest X-ray Dr. Alka Ulrich MD Work Phone: Start: 02-19-2025 Mean corpuscular hem oglobin concentration determination Dr. Shoshana Ulrich MD Work Phone: Start: 02-19-[address] Paul Ulrich MD Work Phone: Start: 02-19-2025 Nucleated red blood cell count procedure Dr. Shoshana Ulrich MD Work Phone: Start: 02-19-2025 Platelet mean volume determination Dr. Shoshana Ulrich MD Work Phone: Start: 01-24-2025 Mean corpuscular hem oglobin concentration determination Dr. Shoshana Ulrich MD Work Phone: Start: 01-24-2025 Platelet mean volume determination Dr. Shoshana Ulrich MD Work Phone: Start: 11-04-2024 Estimated [...] Treatment Date Care Activity Detail Author Start: 04-02-2025 ambulatory Facility:[facility] Start: 03-13-2025 -German Donovan Start: 03-08-2025 Registered Referred Registered Refer slava -German Maradiaga Start: 03-07-2025 Patient discharge [facility] Start: 03-07-2025 Non-patient / Non-visit Non-patient / Non-visit -[facility] Work Phone: Start: 03-06-2025 Non-patient / Non-visit Non-patient / Non-visit -[facility] Work Phone: Start: 03-06-2025 Consultation [facility] Start: 03-05-2025 Non-patient / Non-visit Non-patient / Non-visit -[facility] Work Phone: Start: 03-05-2025 Oxygen therapy [facility] Start: 03-05-2025 Introduction of urin genesis catheter [facility] Start: 03-05-2025 Inhalation therapy procedure [facility] Start: 03-04-2025 Following clinical pathway protocol [facility] Start: 03-04-2025 Application of elast ic bandage [facility] Start: 03-04-2025 Assessment of risk o f venous thromboembolism [facility] Start: 03-04-2025 Insertion of cathete r into peripheral vein [facility] Start: 03-04-2025 Providing care accor ding to standard [facility] Start: 03-04-2025 Provision of activit y privileges [facility] Start: 03-04-2025 Referral for physica l therapy [facility] Start: 03-04-2025 Referral to occupati onal therapist [facility] Start: 03-04-2025 Referral to service [facility] Start: 03-04-2025 [facility] Start: 03-04-2025 Admission procedure [facility] Start: 03-04-2025 End: 03-07-2025 Evaluation and management of inpatient Back pain -Medical Surgical 3 Work Phone: Start: 03-04-2025 CT of lumbar spine Spine Lumba r without Contrast [facility] Start: 03-04-2025 Urine culture Urine Culture [facility] Start: 03-01-2025 MRI of lumbar spine Spine Lumbar (Ro utine) [facility] Start: 03-01-2025 Patient encounter procedure Registered Clinical -MRI - [facility] Work Phone: Start: 02-21-2025 [facility] Start: 02-19-2025 [facility] Start: 02-12-2025 End: 02-12-2025 Evaluation of diagnostic study results [facility] Start: 02-12-2025 End: 02-12-2025 Patient encounter procedure Abnormal ECG -[facility] Work Phone: Start: 01-14-2025 Influenza vaccination Influenza Vacc ine (#1) [facility] Start: 11-23-2024 End: 11-23-2024 Patient encounter procedure 11/23/2024 3:40 PM EDT Office Visit Neurology [address] [place] [address] Piotr Escobedo Jr., MD [address] [place] [address] paresthesia of skin; spondylosis w/o myelopathy or radiculopathy, lumbosacral region Neurology Comment on above: paresthesia of skin; spondylosis w/o myelopathy or radiculopathy, lumbosacral region Start: 11-06-2024 Patient discharge [facility] Start: 11-05-2024 Partial thromboplast in time, activated [facility] Start: 11-05-2024 Dietary regime [facility] Start: 11-05-2024 Log roll [facility] Start: 11-05-2024 Provision of activit y privileges [facility] Start: 11-05-2024 End: 11-05-2024 [facility] Start: 11-05-2024 Cardiac monitoring [facility] Start: 11-05-2024 Notification of physician [facility] Start: 11-05-2024 Pulse taking [facility] Start: 11-04-2024 Referral to vascular surgeon [facility] Start: 11-03-2024 Admission procedure [facility] Start: 11-03-2024 Complete blood count [facility] Start: 11-02-2024 Following clinical pathway protocol [facility] Start: 11-02-2024 Ambulation without limitation [facility] Start: 11-02-2024 Assessment of risk o f venous thromboembolism [facility] Start: 11-02-2024 Incentive spirometry [facility] Start: 11-02-2024 Insertion of cathete r into peripheral vein [facility] Start: 11-02-2024 Oxygen therapy [facility] Start: 11-02-2024 Providing care accor ding to standard [facility] Start: 11-02-2024 [facility] Start: 11-02-2024 Verification routine [facility] Start: 11-02-2024 Admission procedure [facility] Start: 11-02-2024 Patient referral to dietitian [facility] Start: 07-13-2024 Patient referral [facility] Work Phone: Start: 06-20-2024 [facility] Start: 05-26-2024 [facility] Start: 05-16-2024 Advance Directive Discussion Advance Directive Discussion [facility] Start: 05-16-2024 Medicare Advantage A nnual Wellness Visit Medicare Advantage Annual Wellness Visit [facility] Start: 01-15-2024 Covid-19 Vaccine () Covid-19 Vaccine () [facility] Start: 09-21-2023 Patient discharge [facility] Start: 09-20-2023 Application of intermittent pneumatic compression device [facility] Start: 09-20-2023 Administration of bl ood product [facility] Start: 09-20-2023 Transfusion of blood product [facility] Start: 09-20-2023 Inhalation therapy procedure [facility] Start: 09-19-2023 End: 09-19-2023 [facility] Start: 09-19-2023 Following clinical pathway protocol [facility] Start: 09-19-2023 Transfusion of blood product [facility] Start: 09-19-2023 Enteric Bacteriology Enteric Bacteri ology [facility] Start: 09-19-2023 Ova and Parasites Ova and Parasites [facility] Start: 09-19-2023 Assessment of risk o f venous thromboembolism [facility] Start: 09-19-2023 Documentation procedure [facility] Start: 09-19-2023 Insertion of cathete r into peripheral vein [facility] Start: 09-19-2023 Providing care accor ding to standard [facility] Start: 09-19-2023 Provision of activit y privileges [facility] Start: 09-19-2023 Referral to gastroenterology service [facility] Start: 09-19-2023 Referral to occupati onal therapist [facility] Start: 09-19-2023 Referral to service [facility] Start: 09-19-2023 [facility] Start: 09-19-2023 Hospital admission, emergency, from emergency room, medical nature [facility] Start: 09-19-2023 Admission procedure [facility] Start: 09-19-2023 Enteric precautions [facility] Start: 07-21-2023 [facility] Start: 11-04-2022 [facility] [facility] Start: 11-04-2022 Patient discharge [facility] Start: 11-04-2022 Removal of urinary catheter [facility] Start: 11-03-2022 Following clinical pathway protocol [facility] Start: 11-03-2022 Anesthesia transuret hral resection of prostate ANESTH REMOVAL OF PROSTATE [facility] Start: 11-03-2022 Trurl electrosurg re scj prostate bleed complete PROSTATECTOMY (TURP) [facility] Start: 11-03-2022 Deep breathing and coughing exercises [facility] Start: 11-03-2022 Incentive spirometry [facility] Start: 11-03-2022 Provision of activit y privileges [facility] Start: 11-03-2022 Admission procedure [facility] Start: 11-03-2022 Irrigation of urinar y bladder [facility] Start: 11-03-2022 Measuring intake and output [facility] Start: 11-03-2022 Patient education [facility] Start: 11-03-2022 Taking patient vital signs [facility] Start: 11-03-2022 Vital signs measurements [facility] Start: 11-03-2022 End: 11-03-2022 [facility] Start: 11-03-2022 Inhalation therapy procedure [facility] Start: 04-09-2022 Blood chemistry [facility] Work Phone: Start: 04-05-2022 Anes integ musc & nr v head neck&posterior trunk ANESTH HEAD/NECK/PTRUNK [facility] Start: 04-05-2022 Insj/rplcmt spi npgr dir/induxive coupling INSRT/REDO SPINE N GENERATOR [facility] Start: 04-05-2022 Prq impltj nstim electrode array epidural IMPLANT NEUROELECTRODES [facility] Start: 04-05-2022 Patient discharge [facility] Start: 02-24-2017 End: 02-24-2017 Appointment Appointment [facility] [employer] Phone: Start: 02-08-2017 End: 11-26-2016 Ct thorax w/contrast material CT Chest with Contrast [facility] Work Phone: Start: 01-14-2017 End: 01-14-2017 Appointment [facility] [employer] Phone: Start: 11-15-2016 End: 11-15-2016 Follow Up Appt 2 months Follow Up Appt 2 months [facility] [employer] Phone: Start: 11-15-2016 End: 11-18-[address] attenuation skull base mid-thigh 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 [facility] Phone: Start: 11-15-2016 End: 11-15-2016 Pulmonary Function Test - complete Pulmonary Function Test - complete [facility] Phone: Start: 11-15-2016 End: 11-15-2016 Pulmonary stress test/simple Pulmonary stress testing; simple (eg, 6-minute walk) [facility] Phone: Start: 11-15-2016 End: 11-15-2016 Appointment Appointment [facility] Phone: Start: 11-15-2016 End: 11-15-2016 Follow Up Appt 2 months Follow Up Appt 2 months [facility] Phone: Start: 11-15-2016 End: 11-18-2016 Pet image w/ct, 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 [facility] Phone: Start: 11-15-2016 End: 11-15-2016 Pulmonary Function Test - complete Pulmonary Function Test - complete [facility] Phone: Start: 11-15-2016 End: 11-15-2016 Pulmonary stress test/simple Pulmonary stress testing; simple (eg, 6-minute walk) [facility] Phone: Start: 2012 RSV Vaccine (1 - 1-d ose 75+ series) RSV Vaccine (1 - 1-dose 75+ series) [facility] Start: 1987 Pneumococcal Vaccine : 50+ (1 of 1 - PCV) Pneumococcal Vaccine: 50+ (1 of 1 - PCV) [facility] Start: 1987 Shingrix Vaccine (1 of 2) Benson grix Vaccine (1 of 2) [facility] Start: 1982 Diabetes Screening Diabetes Screenin g [facility] Start: 1956 Urine microalbumin profile DTaP,Tdap,Td Vaccine (1 - Tdap) [facility] Start: 1955 Anxiety Screening Anxiety Screening [facility] Start: 1955 Depression Screening Depression Scre ening [facility] Anion gap in Serum o r Plasma [facility] Anion gap measurement [facility] Work Phone: BUN/Creatinine ratio [facility] Work Phone: BUN/Creatinine ratio [facility] Calcium [Mass/volume ] in Serum or Plasma [facility] Work Phone: Calcium [Mass/volume ] in Serum or Plasma [facility] Carbon dioxide, tota l [Moles/volume] in Central venous blood [facility] Carbon dioxide, tota l [Moles/volume] in Serum or Plasma [facility] Work Phone: Chloride [Moles/volu me] in Serum or Plasma [facility] Work Phone: Creatinine [Mass/vol ume] in Serum or Plasma [facility] Creatinine [Moles/vo lume] in Serum or Plasma [facility] Work Phone: Erythrocyte mean corpuscular volume determination [facility] Gastrointestinal pathogens panel - Stool by JOSTIN with probe detection [facility] Glucose [Mass/volume ] in Serum or Plasma [facility] Work Phone: Glucose [Mass/volume ] in Serum or Plasma [facility] Hematocrit [Volume Fraction] of Blood [facility] Work Phone: Hematocrit [Volume Fraction] of Blood [facility] Hemoglobin [Mass/vol ume] in Blood [facility] Work Phone: Hemoglobin [Mass/vol ume] in Blood [facility] Leukocytes [#/volume ] in Blood [facility] Work Phone: Leukocytes [#/volume ] in Blood [facility] Mean corpuscular hemoglobin concentration determination [facility] Work Phone: Mean corpuscular hemoglobin concentration determination [facility] Mean corpuscular hemoglobin determination [facility] Work Phone: Mean corpuscular hemoglobin determination [facility] Measurement of renal function [facility] Work Phone: Measurement of renal function [facility] End: 01-13-2026 MR Sacrum and Coccyx WO contrast MRI SACRUM/COCCYX WO IVCON Radiology Routine Neoplasm of unspecified behavior of bone, soft tissue, and skin Perineal numbness 1 Occurrences starting 12/14/2024 until 01/13/2026 [facility] Work Phone: Comment on above: 1 Occurrences starti ng 12/14/2024 until 01/13/2026 Neutrophil count [facility] Work Phone: Neutrophil percent differential count [facility] Work Phone: NM Heart Views W str ess and W radionuclide IV [facility] Ova and parasites identified in Unspecified specimen by Light microscopy [facility] Patient Education [facility] Work Phone: Patient referral [facility] Work Phone: Platelets [#/volume] in Blood [facility] Work Phone: Platelets [#/volume] in Blood [facility] Potassium [Moles/vol ume] in Serum or Plasma [facility] Work Phone: Potassium measurement [facility] Red blood cell count [facility] Work Phone: Red blood cell count [facility] Red cell distributio n width determination [facility] Work Phone: Red cell distributio n width determination [facility] Serum chloride measurement [facility] Sodium [Moles/volume ] in Serum or Plasma [facility] Work Phone: Sodium measurement [facility] Urea nitrogen [Mass/volume] in Serum or Plasma [facility] Work Phone: Urea nitrogen [Mass/volume] in Serum or Plasma [facility] Immunizations Immunization Date Immunization Notes Care Provider Shadia brice 01-24-2025 Seasonal trivalent influenza vaccine, adjuvanted, preservative free Dr. Shoshana Ulrich MD Work Phone: [facility] 03-02-2024 Pfizer Covid-19 (Comirnaty) Dr. Shoshana Ulrich MD Work Phone: [facility] 03-02-2024 RSV Adult BiValent (Abrysvo) Dr. Shoshana Ulrich MD Work Phone: [facility] 04-28-2023 Covid (Spikevax) Dr. Shoshana Ulrich MD Work Phone: [facility] 04-06-2023 influenza, injectabl e, quadrivalent, preservative free Dr. Shoshana Ulrich MD Work Phone: [facility] 04-06-2023 influenza virus vacc ine, unspecified formulation Olga Christianson PA-C Work Phone: [facility] 01-29-2022 Covid Pfizer Bivalen t Booster Dr. Shoshana Ulrich MD Work Phone: [facility] 01-29-[address] Shoshana Ulrich MD Work Phone: [facility] 01-22-2022 influenza, injectabl e, quadrivalent, preservative free Dr. Shoshana Ulrich MD Work Phone: [facility] 09-22-2021 Covid (Moderna) Dr. Shoshana warren MD Work Phone: [facility] 09-22-2021 Pneumococcal Vaccine PCV20 (Prevnar 20) Dr. Shoshana Ulrich MD Work Phone: [facility] 09-22-[address] Shoshana Ulrich MD Work Phone: [facility] 03-31-2021 Covid (Moderna) Dr. Shoshana warren MD Work Phone: [facility] 07-10-2020 Covid (Moderna) Dr. Shoshana warren Work Phone: [facility] 06-12-2020 Covid (Moderna) Dr. Shoshana warren Work Phone: [facility] 02-01-2020 influenza, injectabl e, quadrivalent, preservative free Dr. Shoshana Ulrich MD Work Phone: [facility] 02-13-2019 influenza, injectabl e, quadrivalent, preservative free Dr. Shoshana Ulrich MD Work Phone: [facility] 02-28-2018 influenza, injectabl e, quadrivalent, preservative free Dr. Shoshana Ulrich MD Work Phone: [facility] 03-04-2017 influenza, injectabl e, quadrivalent, preservative free Dr. Shoshana Ulrich MD Work Phone: [facility] 05-16-2011 zoster vaccine, live Dr. Marlon Ulrich MD Work Phone: [facility] 05-16-2010 pneumococcal polysaccharide vaccine, [address] Shoshana Ulrich MD Work Phone: [facility] Payers Date Payer Category Payer Medicare [facility]Managed Care) [facility] [id number] 2024 Medicare [id number] 2024 Self-pay [id number] 2002 Medicare [id number] Unknown [id number] Unknown [id number] 2.16.840.1.522410.3.579. 2.462 Unknown [id number] 2.16.840.1.778970.3.579. 2.462 Unknown [id number] 2.16.840.1.041908.3.579. 2.462 Unknown [id number] 2.16.840.1.236861.3.579. 2.462 Unknown [id number] 2.16.840.1.601839.3.579. 2.462 Unknown [id number] 2.16.840.1.506785.3.579. 2.462 Unknown [id number] 2.16.840.1.082459.3.579. 2.462 Unknown [id number] 2.16.840.1.600429.3.579. 2.462 Unknown [id number] 2.16.840.1.924222.3.579. 2.462 Unknown [id number] 2.16.840.1.023276.3.579. 2.462 Unknown [id number] 2.16.840.1.597451.3.579. 2.462 Unknown [id number] 2.16.840.1.148085.3.579. 2.462 Unknown [id number] 2.16.840.1.058996.3.579. 2.462 Unknown [id number] 2.16.840.1.700651.3.579. 2.462 Unknown [id number] 2.16.840.1.928510.3.579. 2.462 Unknown [id number] 2.16.840.1.835033.3.579. 2.462 Unknown [id number] 2.16.840.1.749899.3.579. 2.462 Unknown [id number] 2.16.840.1.127679.3.579. 2.462 Unknown [id number] 2.840.1.502804.3.579. 2.462 Unknown [id number] 2.16.840.1.390442.3.579. 2.462 Unknown [id number] 2.840.1.168099.3.579. 2.462 Unknown [id number] 2.840.1.885578.3.579. 2.462 Unknown [id number] 2.840.1.570032.3.579. 2.462 Unknown [id number] 2.840.1.426309.3.579. 2.462 Unknown [id number] 2.840.1.854043.3.579. 2.462 Unknown [id number] 2.840.1.768256.3.579. 2.462 Unknown [id number] 2.840.1.952323.3.579. 2.462 Unknown [id number] 2.840.1.049955.3.579. 2.462 Unknown [id number] 2.840.1.155442.3.579. 2.462 Unknown [id number] .840.1.931904.3.579. 2.462 Unknown [id number] .840.1.007343.3.579. 2.462 Unknown [id number] .840.1.239813.3.579. 2.462 Unknown [id number] 2.840.1.400550.3.579. 2.462 Unknown [id number] 2.840.1.744742.3.579. 2.462 Unknown [id number] 2.840.1.847943.3.579. 2.462 Unknown [id number] 2.840.1.264930.3.579. 2.462 Unknown [id number] 2.16.840.1.386070.3.579. 2.462 Unknown [id number] 2.16.840.1.162150.3.579. 2.462 Unknown [id number] 2.16.840.1.210843.3.579. 2.462 Social History Date Type Detail Facility Start: 05-26-2021 End: 09-20-2023 Tobacco smoking status CAIS Unknown if ever smoked [facility] Start: 07-08-2020 None [facility] Start: 07-08-2020 Spouse/ Signif icant Other [facility] Start: 09-11-2020 Cigarettes [facility] Start: 1935 Sex Assigned At Male W [facility] Start: 07-13-2024 End: 03-04-2025 Tobacco smoking status NHIS Smokes tobacco daily (finding) [facility] Start: 08-03-2024 Sex Male (finding) [facility] Start: 1935 Sex assigned at Not on file [facility] Start: 12-14-2024 Gender identity Not on file [facility] Start: 11-21-2024 Tobacco smoking status NHIS Ex-smoker (finding) [facility] History of tobacco use Cigarette Smoker [facility] Start: 12-14-2024 Tobacco use and exposure Smokeless tobacco non-user [facility] Start: 12-14-2024 History of Social function [facility] National Score (1-100), lower number is lower risk 72 [facility] Medical Equipment Procedure Code Equipment Code Equipment Origin al Text Equipment Identifier Dates Insertion, spinal cord stimulator, permanent [employer] BATTER[employer] FDA Start: 04-05-2022 Insertion, spinal cord stimulator, permanent [employer] LEAD KIT FDA Start: 04-05-2022 Insertion, spinal cord stimulator, permanent [employer] LEAD KIT FDA Start: 04-05-2022 Insertion, spinal cord stimulator, permanent [id number] FDA Start: 04-05-2022 Insertion, spinal cord stimulator, [...] Start: 04-05-2022 Insertion, spinal cord stimulator, permanent FDA Start: 04-05-2022 Insertion, spinal cord stimulator, permanent FDA Start: 04-05-2022 Insertion, spinal cord stimulator, permanent FDA Start: 04-05-2022 Colonoscopy CLIP,RESO 360 ULTRA 235_17 FDA Start: 09-20-2023 Colonoscopy CLIP,RESO 360 ULTRA 235_17 FDA Start: 09-20-2023 Colonoscopy CLIP,RESO 360 ULTRA 235_17 FDA Start: 09-20-2023 Colonoscopy CLIP,RESO 360 ULTRA 235_17 FDA Start: 09-20-2023 Colonoscopy CLIP,RESO 360 ULTRA 235_17 FDA Start: 09-20-2023 Colonoscopy CLIP,RESO 360 ULTRA 235_17 FDA Start: 09-20-2023 Colonoscopy CLIP,RESO 360 ULTRA 235_17 FDA Start: 09-20-2023 Colonoscopy CLIP,RESO 360 ULTRA 235_17 FDA Start: 09-20-2023 Colonoscopy CLIP,RESO 360 ULTRA 235_17 FDA Start: 09-20-2023 Colonoscopy CLIP,RESO 360 ULTRA 235_17 FDA Start: 09-20-2023 Colonoscopy CLIP,RESO 360 ULTRA 235_17 FDA Start: 09-20-2023 Colonoscopy CLIP,RESO 360 ULTRA 235_17 FDA Start: 09-20-2023 Colonoscopy CLIP,RESO 360 ULTRA 235_17 FDA Start: 09-20-2023 Colonoscopy CLIP,RESO 360 ULTRA 235_17 FDA Start: 09-20-2023 Colonoscopy CLIP,RESO 360 ULTRA 235_17 FDA Start: 09-20-2023 Colonoscopy CLIP,RESO 360 ULTRA 235_17 FDA Start: 09-20-2023 Colonoscopy CLIP,RESO 360 ULTRA 235_17 FDA Start: 09-20-2023 Colonoscopy CLIP,RESO 360 ULTRA 235_17 FDA Start: 09-20-2023 Colonoscopy CLIP,RESO 360 ULTRA 235_17 FDA Start: 09-20-2023 Colonoscopy CLIP,RESO 360 ULTRA 235_17 FDA Start: 09-20-2023 Colonoscopy CLIP,RESO 360 ULTRA 235_17 FDA Start: 09-20-2023 Colonoscopy CLIP,RESO 360 ULTRA 235_17 FDA Start: 09-20-2023 Colonoscopy CLIP,RESO 360 ULTRA 235_17 FDA Start: 09-20-2023 Colonoscopy CLIP,RESO 360 ULTRA 235_17 FDA Start: 09-20-2023 Colonoscopy FDA Start: 09-20-2023 Colonoscopy FDA Start: 09-20-2023 TUBE, EAR RILEY FDA Start: 07-12-2017 TUBE, EAR RILEY FDA Start: 07-12-2017 TUBE, EAR RILEY FDA Start: 07-12-2017 TUBE, EAR RILEY FDA Start: 07-12-2017 TUBE, EAR RILEY FDA Start: 07-12-2017 TUBE, EAR RILEY FDA Start: 07-12-2017 [employer] FDA Start: 12-21-2018 TUBE, EAR RILEY FDA Start: 07-12-2017 TUBE, EAR RILEY FDA Start: 07-12-2017 [employer] FDA Start: 12-21-2018 TUBE, EAR RILEY FDA Start: 07-12-2017 TUBE, EAR RILEY FDA Start: 07-12-2017 [employer] FDA Start: 12-21-2018 TUBE, EAR RILEY FDA Start: 07-12-2017 TUBE, EAR RILEY FDA Start: 07-12-2017 [employer] FDA Start: 12-21-2018 TUBE, EAR RILEY FDA Start: 07-12-2017 TUBE, EAR RILEY FDA Start: 07-12-2017 [employer] FDA Start: 12-21-2018 TUBE, EAR RILEY FDA Start: 07-12-2017 TUBE, EAR RILEY FDA Start: 07-12-2017 [employer] FDA Start: 12-21-2018 TUBE, EAR RILEY FDA Start: 07-12-2017 TUBE, EAR RILEY FDA Start: 07-12-2017 [employer] FDA Start: 12-21-2018 TUBE, EAR RILEY FDA Start: 07-12-2017 TUBE, EAR RILEY FDA Start: 07-12-2017 [employer] FDA Start: 12-21-2018 TUBE, EAR RILEY FDA Start: 07-12-2017 TUBE, EAR RILEY FDA Start: 07-12-2017 [employer] FDA Start: 12-21-2018 TUBE, EAR RILEY FDA Start: 07-12-2017 TUBE, EAR RILEY FDA Start: 07-12-2017 [employer] FDA Start: 12-21-2018 TUBE, EAR RILEY FDA Start: 07-12-2017 TUBE, EAR RILEY FDA Start: 07-12-2017 [employer] FDA Start: 12-21-2018 TUBE, EAR RILEY FDA Start: 07-12-2017 TUBE, EAR RILEY FDA Start: 07-12-2017 [employer] FDA Start: 12-21-2018 TUBE, EAR RILEY FDA Start: 07-12-2017 TUBE, EAR RILEY FDA Start: 07-12-2017 [employer] FDA Start: 12-21-2018 TUBE, EAR RILEY FDA Start: 07-12-2017 TUBE, EAR RILEY FDA Start: 07-12-2017 [employer] FDA Start: 12-21-2018 TUBE, EAR RILEY FDA Start: 07-12-2017 TUBE, EAR RILEY FDA Start: 07-12-2017 [employer] FDA Start: 12-21-2018 TUBE, EAR RILEY FDA Start: 07-12-2017 TUBE, EAR RILEY FDA Start: 07-12-2017 [employer] FDA Start: 12-21-2018 TUBE, EAR RILEY FDA Start: 07-12-2017 TUBE, EAR RILEY FDA Start: 07-12-2017 [id number] FDA Start: 11-05-2024 [employer] FDA Start: 12-21-2018 TUBE, EAR RILEY FDA Start: 07-12-2017 TUBE, EAR RILEY FDA Start: 07-12-2017 [employer] FDA Start: 12-21-2018 TUBE, EAR RILEY FDA Start: 07-12-2017 TUBE, EAR RILEY FDA Start: 07-12-2017 [employer] FDA Start: 12-21-2018 TUBE, EAR RILEY FDA Start: 07-12-2017 TUBE, EAR RILEY FDA Start: 07-12-2017 [employer] FDA Start: 12-21-2018 TUBE, EAR RILEY FDA Start: 07-12-2017 TUBE, EAR RILEY FDA Start: 07-12-2017 [employer] FDA Start: 12-21-2018 TUBE, EAR RILEY FDA Start: 07-12-2017 TUBE, EAR RILEY FDA Start: 07-12-2017 [employer] FDA Start: 12-21-2018 TUBE, EAR RILEY FDA Start: 07-12-2017 TUBE, EAR RILEY FDA Start: 07-12-2017 [employer] FDA Start: 12-21-2018 TUBE, EAR RILEY FDA Start: 07-12-2017 TUBE, EAR RILEY FDA Start: 07-12-2017 [employer] FDA Start: 12-21-2018 TUBE, EAR RILEY FDA Start: 07-12-2017 TUBE, EAR RILEY FDA Start: 07-12-2017 [employer] FDA Start: 12-21-2018 FDA Start: 07-12-2017 FDA Start: 07-12-2017 FDA Start: 12-21-2018 Goals Date Patient Goal Desired Activity /State Functional Status Date Assessment Result Facility 03-07-2025 Functional status With Assist of 1 [facility] Work Phone: 03-05-2025 Functional status Ambulates [facility] Work Phone: 11-06-2024 Functional status Bathroom Privilege [facility] Work Phone: 09-21-2023 Functional status Patient Activi ty Ambulates;Up ad puma [facility] Work Phone: 09-20-2023 Functional status Activity Ability Indepe ndent [facility] Work Phone: 09-20-2023 Functional status None [facility] Work Phone: 11-04-2022 Functional status Patient Activi ty Ambulates;Chair [facility] Work Phone: 11-04-2022 Functional status Activity Abili ty Independent;Standby Assist [facility] Work Phone: 11-03-2022 Functional status Standard Walker [facility] Work Phone: Mental Status Date Assessment Result Facility 03-07-2025 Cognitive function Voice/Name [facility] Work Phone: 03-06-2025 Cognitive function Appropriate [facility] Work Phone: 11-06-2024 Cognitive function Voice/Name [facility] Work Phone: 09-21-2023 Cognitive function Voice/Name [facility] Work Phone: 11-04-2022 Cognitive function Level Of Cons ciousness Awake;Alert;Appropriate;Follow s Commands [facility] Work Phone: 11-04-2022 Cognitive function Voice/Name [facility] Work Phone: 10-07-2022 Cognitive function Level Of Cons ciousness Awake;Alert;Appropriate [facility] Work Phone: 04-05-2022 Cognitive function Voice/Name [facility] Work Phone: Clinical Notes 09-11-2021 to 03-07-2025 Note Date & Type Note Facility 03-07-2025 Note [facility] 03-04-2025 History and physical note Note Date/Time March 04, 2025 8:58pm [facility] Medical Records Department [address] [place] [address] H&P Exam - Hospitalist 03/04/251928 MR#: [id number] Acct: [id number] Name: DORIAN CRAMER Rep #:[id number] : 1935 89 From: Rylie Arreaga MD PCP: Dr. Shoshana Ulrich MD Status:ADM IN Location: [facility] [id number] HPI - General General Date of Admission: 03/04/25 Date of Service: 03/04/25 Chief Complaint: back pain HPI Narrative DORIAN CRAMER, is a 89-year-old male history of hypertension, chronic back pain, COPD, depression, DVT with IVC filter who presented to [facility] ED 03/04/2025 with back pain. He has had 3 prior lumbar surgeries and is on chronic pain management, follows with Dr. Castañeda. Has been out of his pain medication and unable to wait until he is seen in the office prompting him to come to the ED. Denies any bowel or bladder incontinence, chronic leg weakness. In the ED temp 99.1, heart rate 81, blood pressure 120/90, respiratory rate 14 pulse ox 99% on room air. CBC with white count 6.8, hemoglobin 10.5. BMP with a BUN of 36 and creatinine 1.24. UA with leuk esterase but only 10-25 white cells, 1+ bacteria and patient denies any urinary symptoms. Lumbar spine CT demonstrated spinal stimulator, diffuse disc space narrowing. There is asymmetric right sided foraminal stenosis suspected L3-L4. MRI from 03/01 showed spinal canal stenosis most advanced at L2-L3 and mild to moderate remaining levels. Additional multilevel moderate advanced neural foraminal stenosis. Patient received multiple doses of pain medication but due to his continued pain it was felt it was not safe to discharge patient home so hospitalist contacted for admission. Patient evaluated at bedside, he reports back pain for many years ago and had been on weekly buprenorphine patches however given continued pain he underwent some kind of injection or nerve ablation 2 weeks ago. He has had increasing pain since that time, he was given oral pain medication to take after the procedure in addition to his buprenorphine patch however due to the increasing pain he was taking with increasing frequency. Over the weekend he ran out and has been unable to sleep due to the pain. Has had a couple of falls however reports they were mechanicalin nature and does not feel he hurt his back, has just been sore somewhat all over. 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 Reports he has never felt that the buprenorphine patches were helpful so he took his buprenorphine patch off over the weekend, has also been out of oral pain medication so he has taken nothing. He reports initially he did not notice much benefit from the pain medicine given in the ED however now he is noting some slow improvement. He reports his pain is the same pain he has always had just more pronounced, more so on the left side than the right side. 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 01/01/25 03/04/25 History mcg-formot 4.8 mcg/actuation HFA inhaler (Breztri Aerosphere) albuterol sulfate 90 mcg/actuation 2 puff inhalation Q 4H PRN 01/18/25 Unknown History aerosol inhaler sob/wheezing apixaban 5 mg tablet (Eliquis) 5 mg PO BID 02/12/25 History buprenorphine 10 mcg/hour weekly 1 patch topical QWEEK 02/21/25 02/25/25 History transdermal patch Allergy/AdvReac Type Severity Reaction Status Date / Time tiotropium (From Spiriva Allergy Unknown unknown Verified 02/21/25 18:11 with HandiHaler) ibuprofen (From Motrin) Allergy Swelling Verified 02/21/25 18:11 Family History Mother , 61 Cancer Father , 91 AD (Alzheimer's disease) Sister Multiple sclerosis Family History no significant family his Surgical History S/P TURP (transurethral resection of [...] joint replacement Hx of decompressive lumbar laminectomy Surgical History no surgical history Social History household members: none housing: house [...] feel safe at home: Yes ROS ROS Narrative General: Denies fever/chills HENT: Denies headache, denies stuffy nose, denies sore throat EYES: Denies changes in vision Resp: Denies cough, denies shortness of breath Cardiac: Denies chest pain GI: Denies abdominal pain, does have some constipation with his pain medications, denies nausea/vomiting : Denies changes in urination Extremity: Has some lower extremity swelling this been worse the past few weeks MSK: Weakness in his legs that is not new Neuro: 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 Heme: Has some various bruises from falls Skin: Denies rashes Psychiatric: No complaints voiced Vital Signs Vital Signs Vital Signs: 03/04/25 16:26 03/04/25 18:26 03/04/25 18:39 Temperature 99.1 F 99.1 F Temperature Source Axillary Pulse Rate 81 79 79 Respiratory Rate 14 22 H 22 H Blood Pressure 120/90 H 130/56 H 130/56 H Blood Pressure Mean 100 80 80 Pulse Ox 99 98 98 Oxygen Delivery Method Room Air Room Air Weight Weight: 70 kg Body Mass Index (BMI) 25.7 Physical Exam Narrative General: Alert, answers questions appropriately no apparent distress HEENT: Normocephalic Eyes: Anicteric, normal conjunctiva, extraocular movements grossly intact Neck: Supple Respiratory: Clear to auscultation bilaterally, normal respiratory effort Cardiovascular: Regular rate and rhythm GI: Soft, nontender, nondistended Extremities: 2+ bilateral lower extremity pitting edema Musculoskeletal: Moving all extremities, does have some pain on palpation over back more so left than right which he reports is consistent with his previous pain Neuro: No overt focal neurological deficits Skin: Very scattered bruising and scrapes Psych: Cooperative Results Lab / Micro Data 03/04/25 16:35 03/04/25 16:35 Labs: Laboratory Results - last 24 hr 03/04/25 16:35: WBC 6.8, RBC 3.20 L, Hgb 10.5 L, Hct 31.4 L, MCV 98.1 H, MCH 32.8 H, MCHC 33.4, RDW Std Deviation 67.8 H, RDW Coeff of Beth 18.8 H, Plt Count 248, MPV 10.6, Immature Gran % (Auto) 0.900, Neut % (Auto) 85.6 H, Lymph % (Auto) 7.4 L, Dickson % (Auto) 5.2, Eos % (Auto) 0.6, Baso % (Auto) 0.3, Absolute Neuts (auto) 5.8, Absolute Lymphs (auto) 0.50 L, Nucleated RBC % 0, Sodium 137, Potassium 4.4, Chloride 98, Carbon Dioxide 26.5, Anion Gap 12, BUN 36 H, Creatinine 1.24 H, Estim Creat Clear Calc 36.51 L, Est GFR (MDRD) Non-Af 56 L, BUN/Creatinine Ratio 29.0 H, Glucose 102 H, Calcium 8.9 03/04/25 18:05: Urine Color Yellow, Urine Clarity Cloudy, Urine pH 6.0, Ur Specific Menard 1.015, Urine Protein 30 H, Urine Glucose (UA) Normal, Urine Ketones 5 H, Urine Occult Blood 250 H, Urine Nitrite Negative, Urine Bilirubin Negative, Urine Urobilinogen Normal, Ur Leukocyte Esterase 100 H, Urine RBC 50-100 SEEN, Urine WBC 10-25 SEEN, Ur Squamous Epith Cells 0-5 SEEN, Amorphous Sediment 2+, Urine Bacteria 1+, Urine Mucus 0 SEEN Imaging Radiology Impression Lumbar Spine CT 03/04/25 17:30 IMPRESSION: Diffuse disc space narrowing. No compression deformity. No subluxation. Please see prior MRI for further details regarding spinal stenosis and nerve root impingement. Sagittal soft tissue windows were not supplied on the current exam. This limits evaluation of the spinal canal as well as the neural foramina. There is asymmetric right-sided foraminal stenosis suspected at L3-4. Reading [facility] Assessment & Plan Assessment/Plan (1) Back pain: PLAN: Plan #Acute on chronic lower back pain - Lumbar spine CT demonstrated spinal stimulator, diffuse disc space narrowing. There is asymmetric right sided foraminal stenosis suspected L3-L4. MRI from 03/01 showed spinal canal stenosis most advanced at L2-L3 and mild to moderate remaining levels. Additional multilevel moderate advanced neural foraminal stenosis - Patient has chronic lower back pain and follows with Dr. Castañeda, had some kind of procedure 2 weeks ago that patient said was to puga the nerves but notes he has the same amount of pain, was taking the pain medication he was given but has run out of this, he also did not find the buprenorphine patch thathe has been on for a long period of time helpful so he took this off 1 to 2 daysago and said he has noticed no difference - Given patient's history, exam, imaging does not seem that there is an acute need for intervention, will admit patient and schedule Tylenol with as needed pain medication and topical - Depending on mental status and tolerance could consider trial of a low-dose muscle relaxer as well but given age would try to avoid polypharmacy if possible -Given patient has not been using his buprenorphine patch and does not want thisback on this was not reordered - Will consult PT/OT - Case management consult # Alcohol use - Patient reports drinking 2 Manhattan's before bed every night, denies any history of withdrawal symptoms will will place patient on CIWA in an abundance of caution given age and comorbidities - Will start thiamine and folate # DVT - History of DVT, 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, appears patient is now back on Eliquis - Will continue medication #Hx COPD -Continue home inhalers -Incentive spirometer #Hypertension - Will hold home antihypertensive to allow room for pain control #Tobacco use -Advise cessation -Nicotine replacement available if desired, presently denying # Abnormal UA - Patient no symptoms consistent with urinary tract infection, there is leuk esterase and bacteria in urine with no nitrate and only 10-25 white cells, urineculture was sent, given no symptoms and patient afebrile with normal white counthesitant to start any empiric treatment as is suspect this is not a pathologicalinfection - If patient were to develop symptoms, white count, fever, urine culture positive can start antibiotics #JASMIN - Patient reports he has CPAP but has not used it in many years #DVT ppx: Not indicated patient on full dose Eliquis Rylie Arreaga MD Charges/Coding Visit Charges Inpatient E&M: 99393 Init Hosp L2 03/04/251957 <Electronically signed by Rylie Arreaga MD> Cosigner Signature (if applicable): CC: Dr. Shoshana Ulrich MD; Dr. Rylie Arreaga MD~ Signed [facility] Work Phone: 1(184) 727-788710-20-2025 Radiology Diagnostic study [facility]10-20-2025 Discharge summary Author Gera Beard [facility] Note Date/Time March 04, 2025 7 :53pm [facility] Medical Records Department [address] [place] [address] Emergency Department Summary 03/04/25 MR#: [id number] Acct: [id number] Name: DORIAN CRAMER Rep #:[id number] : 1935 89 From: Gera Beard MD PCP: Dr. Shoshana Ulrich MD Status:REG ER Location: ED HPI History of Present Illness Chief Complaint: Back Informant: patient Onset/Context/Timing Onset: Days Context: Gradual Onset Timing: Continuous Quality: Sharp Location: Lumbar Current Severity: Severe Maximum Severity: Severe Worsened by: improves with Movement Relieved by: Nothing Associated Symptoms Associated Symptoms: Constipation; Negative for Numbness, Tingling, Radiation toRight Leg, Radiation to Left Leg, Fever, Abdominal Pain, Dysuria, Unable to Ambulate, Unable to Transfer, Urinary Retention, Urinary Incontinence or Fecal Incontinence Narrative Narrative: 89-year-old male history of prior 3 lumbar back surgeries. He is on chronic pain management. He sees Dr. Castañeda. Been taking 4 oxycodone per day chronically. And states he has been out of his medication for the last 4 to 5 days. Is having back pain. He has had some falls. Presented back pain prior to the falls. Says he is constipated from the pain medication. He called his pain management physician who is unable to get him in the office today. He has had back injections within the last several weeks. He denies any bowel or bladder incontinence. He denies any radiation to his legs or worsening leg weakness. He has chronic leg weakness. Prior similar symptoms: Yes Recent Illness/Hospitalization: No PFSH PFSH Medical History Cellulitis of right upper extremity [...] unspecified Hypertension Restless legs Injury of back Medical History no medical history Home Medications ?Medication ?Instructions ?Recorded ?Last Taken ?Type amlodipine 5 mg tablet 5 mg PO DAILY BP 07/02/22 History oxybutynin chloride 10 mg 10 mg PO DAILY OAB 09/19/23 03/04/25 History tablet,extended release 24 hr budesonide 160 mcg-glycopyr 9 2 inh inhalation BID ENRICHMENT TEACHER D 01/01/25 03/04/25 History mcg-formot 4.8 mcg/actuation HFA inhaler (Breztri Aerosphere) albuterol sulfate 90 mcg/actuation 2 puff inhalation Q 4H PRN 01/18/25 Unknown History aerosol inhaler sob/wheezing apixaban 5 mg tablet (Eliquis) 5 mg PO BID 02/12/25 History buprenorphine 10 mcg/hour weekly 1 patch topical QWEEK 02/21/25 02/25/25 History transdermal patch Allergy/AdvReac Type Severity Reaction Status Date / Time tiotropium (From Spiriva Allergy Unknown unknown Verified 02/21/25 18:11 with HandiHaler) ibuprofen (From Motrin) Allergy Swelling Verified 02/21/25 18:11 Family History Mother , 61 Cancer Father , 91 AD (Alzheimer's disease) Sister Multiple sclerosis Family History no significant family his Surgical History S/P TURP (transurethral resection of [...] joint replacement Hx of decompressive lumbar laminectomy Surgical History no surgical history Social History household members: none housing: house [...] home: Yes ROS ROS ED ROS Narrative Back pain. Denies recent illness. Constitutional Constitutional ED: Denies chills or fever(s) Eyes Eyes: Denies blurry vision ENT ENT ED: Denies ear pain Cardiovascular Cardiovascular: Denies chest pain Respiratory/Chest Respiratory/Chest: Denies dyspnea or dyspnea on exertion Gastrointestinal Gastrointestinal: Denies abdominal pain Genitourinary Genitourinary ED: Denies dysuria or hematuria Musculoskeletal Musculoskeletal: Reports back pain; Denies arthralgias, myalgias or neck pain Integumentary Denies abscess or Abrasions Neurologic Neurologic: Denies headache(s), paresthesias or weakness Psychiatric Psychiatric: Denies anxiety or depression Endocrine Endocrinology: Denies cold intolerance Hematologic/Lymphatic Hematologic/Lymphatic: Denies easy bleeding, easy bruising or lymphadenopathy Allergic/Immunologic Allergic/Immunologic ED: Denies mouth swelling, tongue swelling or urticaria EXAM Physical Exam Narrative Exam Narrative: 89-year-old male lying in bed screaming. Vital signs are stable afebrile. No family in the room. H EENT exam pupils round react light. Moist mucous membranes. Poor dentition. Neck nontender. Trachea midline. Lungs clear to auscultation bilaterally. Heart regular rhythm no murmur. Chest wall and ribs nontender. Abdomen is soft nondistended. No peritoneal signs. No pulsatile mass. Patient moving all 4 extremities. He has normal foundation coordinator strength. Both lower extremities have equal and symmetrical weakness. He is 1-2+ pitting edemawhich is chronic. He can do dorsi and plantarflexion. Negative straight leg raise. Back he has reproducible pain over his iliac crest on the left. There is no bruising. He has well-healed prior lumbar surgical scars. Neurologicallyhe is awake alert. He is answering questions following commands. He has chronic weakness in both lower extremities which he states is his baseline. Const Vital Signs: 03/04/25 16:26 03/04/25 18:26 03/04/25 18:39 Temperature 99.1 F 99.1 F Temperature Source Axillary Pulse Rate 81 79 79 Respiratory Rate 14 22 H 22 H Blood Pressure 120/90 H 130/56 H 130/56 H Blood Pressure Mean 100 80 80 Pulse Ox 99 98 98 Oxygen Delivery Method Room Air Room Air MDM MDM MDM Narrative Medical decision making narrative: 89-year-old male with 3 prior lumbar surgeries. Chronic back pain on oxycodone. He has been out of his pain meds for the 4+ days. He has been unable to get into see his pain management physician as of yet. He came in today due to pain. He has had recent falls but states his back hurt well before the falls. Repeat exam at 6:28 PM. Patient was given the second dose of IV more pain for his pain. Still having significant pain. I reviewed his MRI from 3 days ago. His CAT scan today both show significant chronic changes. Given that the patient is 89 years old and 2 different doses of morphine have not significantlyimproved his pain I have the hospitalist on page for admission. Currently does not have signs of a cauda equina. He has dorsi and plantarflexion is chronic weakness and edema both lower extremities that is not significantly different. He has medial thigh sensation. No saddle anesthesia. He has normal perianal sensation. I will speak to the hospitalist about admitting for pain control andfurther evaluation. History & Record Review Discussion w/independent historian: Patient Additional record(s) reviewed:: Prior inpatient record, Prior outpatient record,Prior ED visit and Prior labs Lab Data Attestation: I reviewed the patient's lab results. Lab results narrative: CBC shows a white count of 6.8. H&H of 10.5 and 31. Platelets 248. Electrolytes shows sodium 137. Gap 12. BUN and creatinine 36 and 1.24. Glucose 102. Urinalysis shows no nitrites. 50-100 red cells. 10-25 white cells. 1+ bacteria. A culture will be sent. The hospitalist I discussed it. She wants to see the culture results before she starts antibiotics. Labs are consistent with his baseline prior labs. Labs: Laboratory Results - last 24 hr 03/04/25 03/04/25 16:35 18:05 WBC 6.8 RBC 3.20 L Hgb 10.5 L Hct 31.4 L MCV 98.1 H MCH 32.8 H MCHC 33.4 RDW Std Deviation 67.8 H RDW Coeff of Beth 18.8 H Plt Count 248 MPV 10.6 Immature Gran % (Auto) 0.900 Neut % (Auto) 85.6 H Lymph % (Auto) 7.4 L Dickson % (Auto) 5.2 Eos % (Auto) 0.6 Baso % (Auto) 0.3 Absolute Neuts (auto) 5.8 Absolute Lymphs (auto) 0.50 L Nucleated RBC % 0 Sodium 137 Potassium 4.4 Chloride 98 Carbon Dioxide 26.5 Anion Gap 12 BUN 36 H Creatinine 1.24 H Estim Creat Clear Calc 36.51 L Est GFR (MDRD) Non-Af 56 L BUN/Creatinine Ratio 29.0 H Glucose 102 H Calcium 8.9 Urine Color Yellow Urine Clarity Cloudy Urine pH 6.0 Ur Specific Menard 1.015 Urine Protein 30 H Urine Glucose (UA) Normal Urine Ketones 5 H Urine Occult Blood 250 H Urine Nitrite Negative Urine Bilirubin Negative Urine Urobilinogen Normal Ur Leukocyte Esterase 100 H Urine RBC 50-100 SEEN Urine WBC 10-25 SEEN Ur Squamous Epith Cells 0-5 SEEN Amorphous Sediment 2+ Urine Bacteria 1+ Urine Mucus 0 SEEN Radiography Diagnostic Testing: Clinical Impression(s) from Imaging Studies Lumbar Spine CT 03/04/25 17:30 IMPRESSION: Diffuse disc space narrowing. No compression deformity. No subluxation. Please see prior MRI for further details regarding spinal stenosis and nerve root impingement. Sagittal soft tissue windows were not supplied on the current exam. This limits evaluation of the spinal canal as well as the neural foramina. There is asymmetric right-sided foraminal stenosis suspected at L3-4. Reading Location: [facility] Discharge Plan Dx/Rx/DC Orders Clinical Impression: Intractable back pain, Hx of degenerative disc disease, History of back surgery, Chronic pain Disposition Disposition: Acute Care Hospital [facility] What to do if you have Problems For any increased pain, shortness of breath, bleeding, nausea or vomiting, chestpain, or any unexpected problems, contact your Primary Care Provider. Call [facility] ([phone]) or report to the closest Emergency Room. Call 911 if necessary. 03/04/251852 <Electronically signed by Gera Beard MD> Cosigner Signature (if applicable): CC: Dr. Shoshana Ulrich MD ~ Signed [facility] Work Phone: 1(191) 749-263110-09-2025 Discharge summary [facility] Medical Records Department [address] [place] [address] Emergency Department Summary 02/21/25 MR#: [id number] Acct: [id number] Name: DORIAN CRAMER Rep #:[id number] : 1935 89 From: Chito Werner MD PCP: Dr. Shoshana Ulrich MD Status:REG ER Location: ED HPI History of Present Illness Chief Complaint: Complaint [...] the bright red blood in his urine. 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 01/01/25 Unknown History mcg-formot 4.8 mcg/actuation HFA inhaler (Breztri Aerosphere) albuterol sulfate 90 mcg/actuation 2 puff inhalation Q 4H PRN 01/18/25 Unknown History aerosol inhaler sob/wheezing nystatin 100,000 unit/gram topical 1 applic topical BI D yeast 01/18/25 02/17/25 History powder triamcinolone acetonide 0.1 % 1 applic topical BID PRN for feet 01/18/25 02/17/25 History topical cream apixaban 5 mg tablet (Eliquis) 5 mg PO BID 02/12/25 History prednisone 20 mg tablet 40 mg (2 x 20 mg) PO DAILY 7 days 02/19/25 Unknown Rx #14 tabs AMITRIPT 02/21/25 Unknown History amitriptyline 10 mg tablet 10 mg PO QPM 02/21/25 Unkno wn History buprenorphine 10 mcg/hour weekly 1 patch topical QWEEK 02/21/25 Unknown History transdermal patch cephalexin 500 mg capsule 500 mg PO Q12 #14 CAPSULES 1 Unknown Rx Allergy/AdvReac Type Severity Reaction Status [...] soft and nontender without guarding or rebound. Neurological examination nonfocal, nonlateralizing. No pallor of subconjunctival or palms ofhands. No central cyanosis. Const Vital Signs: 02/21/25 18:11 02/21/25 21:47 Temperature 98.7 F 97.7 F L Temperature Source Oral Oral Pulse Rate 66 72 Respiratory Rate 18 16 Blood Pressure 124/61 H 127/76 H Blood Pressure Mean 82 93 Pulse Ox 96 97 Oxygen Delivery Method Room Air Room Air MDM MDM MDM Narrative Medical decision making narrative: The differential diagnosis includes but not limited to hemorrhagic cystitis versus broken blood vessel on anticoagulant versus ureterolithiasis versus bladder mass. I have lower suspicion for ureterolithiasis as he is having more painless hematuria. I will check a CBC to make sure he is not anemic,but he does not appear that way on examination. BMP will be checked to check BUN and creatinine. Urinalysis will be obtained to rule out infection and the need for antibiotics. I do feel he merits CTwithout contrast to look for bladder mass versus stones. I reviewed his laboratory work and he has normal white count of 4.6 with hemoglobin stable at 10.5 when compared to prior labs. Platelet count normal at184. Sodium normal at 138 with potassium 3.9, BUN elevated 61 with creatinine 1.81. When compared to prior labs, he has had chronic kidney disease with creatinine 1.81 in the past. Glucose 132 with normal anion gap of 13. CT of the abdomen pelvis shows no bladder mass or polyp. In review of his urinalysis and microanalysis he has greater than 100 WBCs and greater than 100 RBCs. I feel he probably has more of a hemorrhagic cystitis or cystitis with hematuria. Patient feels well enough and would like to be discharged. He was given his first dose of cephalexin here in the emergency department and prescription written to take twice a day for the next 7 days.He has urine cultures pending. He was told that he may need to hold his Eliquis for the next few days. I feelhe can be discharged to follow-up with his primary care provider. He is motivated for discharge. Return instructions were reviewed. Disposition is discharged home in stable condition. History & Record Review Discussion w/independent historian: Patient Additional record(s) reviewed:: Prior ED visit and Prior labs (Chronic kidney disease patient) Lab Data Attestation: I reviewed the patient's lab results. Labs: Laboratory Results - last 24 hr 02/21/25 02/21/25 18:20 19:24 WBC 4.6 RBC 3.17 L Hgb 10.5 L Hct 31.2 L MCV 98.4 H MCH 33.1 H MCHC 33.7 RDW Std Deviation 63.5 H RDW Coeff of Beth 17.6 H Plt Count 184 MPV 9.8 Immature Gran % (Auto) 0.900 Neut % (Auto) 90.1 H Lymph % (Auto) 7.5 L Dickson % (Auto) 1.3 Eos % (Auto) 0.0 Baso % (Auto) 0.2 Absolute Neuts (auto) 4.2 Absolute Lymphs (auto) 0.35 L Nucleated RBC % 0 Sodium 138 Potassium 3.9 Chloride 107 Carbon Dioxide 18.7 L Anion Gap 13 BUN 61 H Creatinine 1.81 H Estim Creat Clear Calc 25.01 L Est GFR (MDRD) Non-Af 36 L BUN/Creatinine Ratio 33.8 H Glucose 132 H Calcium 8.5 Urine Color Luna Urine Clarity Cloudy Urine pH 5.0 Ur Specific Menard 1.015 Urine Protein 100 H Urine Glucose (UA) Normal Urine Ketones Negative Urine Occult Blood 250 H Urine Nitrite Positive H Urine Bilirubin Negative Urine Urobilinogen Normal Ur Leukocyte Esterase 100 H Urine RBC > 100 SEEN Urine WBC >100 SEEN Ur Squamous Epith Cells 0-5 SEEN Amorphous Sediment 2+ Urine Bacteria 3+ Urine Mucus 0 SEEN Radiography Diagnostic Testing: Clinical Impression(s) from Imaging Studies Abdomen/Pelvis CT 02/21/25 18:26 IMPRESSION: Stable right lower lobe round atelectasis; continued imaging surveillance recommended. Right kidney nonobstructive calculus. Left renal simple cyst. Colonic diverticulosis without diverticulitis. Long segment sigmoid wall thickening, possibly due to nonspecific colitis; correlate clinically. Dense colonic stool suggesting constipation. Infrarenal abdominal aortic aneurysm measuring 3.6 cm with severe atherosclerosis. Fat-containing bilateral inguinal hernias. Reading Location: [address] Discharge Plan Triage Chief Complaint: Complaint ED Provider: Chito Werner Dx/Rx/DC Orders Clinical Impression: Cystitis with hematuria, shelter (current) use of 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 Instructions: ED Urinary Tract Infections in Men Prescriptions: New cephalexin 500 mg capsule 500 mg PO Q12 Qty: 14 0RF No Action amlodipine 5 mg tablet 5 mg PO DAILY nystatin 100,000 unit/gram powder 1 applic topical BID triamcinolone acetonide 0.1 % cream 1 applic topical BID PRN (Reason: for feet) Eliquis 5 mg tablet 5 mg PO BID albuterol sulfate 90 mcg/actuation HFA aerosol inhaler 2 puff INHALATION Q4H PRN (Reason: sob/wheezing) Patient Comments: pt sais he does not use because it doesnt help oxybutynin chloride 10 mg tablet extended release 24hr 10 mg PO DAILY artifi.tears(hypromellose)(PF) 1.7 % drops with applicator 1 drp EACH EYE DAILY PRN (Reason: dry eyes) Breztri Aerosphere 160-9-4.8 mcg/actuation HFA aerosol inhaler 2 inh inhalation BID Patient Comments: pt states he does not use because it doesnt help prednisone 20 mg tablet 40 mg PO DAILY 7 Days Qty: 14 0RF AMITRIPT amitriptyline 10 mg tablet 10 mg PO QPM buprenorphine 10 mcg/hour patch weekly 1 patch topical QWEEK Primary Care Provider: Shoshana Ulrich Referrals: Shoshana Ulrich MD [Primary Care Provider, Family Practice] - 3-5 Days Activity Restrictions/Additional Instructions: You may need to hold your Eliquis for the next few days. Drink plenty of oral fluids. Antibiotics for a bladder infection. Return with increased bleeding, fever, new or worsening symptoms. Print Language: Chinese Disposition Disposition: Home, Self Care What to do if you have Problems For any increased pain, shortness of breath, bleeding, nausea or vomiting, chestpain, or any unexpected problems, contact your Primary Care Provider. Call [facility] ([phone]) or report tothe closest Emergency Room. Call 911 if necessary. 02/21/252154 Cosigner Signature (if applicable): CC: Dr. Shoshana Ulrich MD ~ Signed [facility]10-09-2025 Radiology Diagnostic study note [facility] Imaging Services [address] [place], [place] [id number] Abdomen/Pelvis without Cont MR#: [id number] Acct: [id number] Name: DORIAN CRAMER Rep #: [id number] : 1935 M 89 From: Zia Martinez MD PCP: Dr. Shoshana Ulrich MD Status: REG ER Study:Abdomen/Pelvis without Cont Date of Exa m: 02/21/25 Exam# [id number] Ordering Dr: Chito Werner MD PROCEDURE: ABDOMEN/PELVIS [...] with a tail sign is again seen, unchangedfrom the prior CT of 10/2024, favoring round [...] atherosclerosis. Fat-containing bilateral inguinal hernias. Reading Location: [address] CC: Dr. Chito Werner MD; Dr. Shoshana Ulrich MD ~ Rn Medical Inpatient Services: Signed [facility]10-09-2025 Discharge summary Author Chito Werner [facility] Note Date/Time February 21, 2025 9: 55pm [facility] Medical Records Department [address] [place] [address] Emergency Department Summary 02/21/25 MR#: [id number] Acct: [id number] Name: DORIAN CRAMER Rep #:[id number] : 1935 89 From: Chito Werner MD PCP: Dr. Shoshana Ulrich MD Status:REG ER Location: ED HPI History of Present Illness Chief Complaint: Complaint [...] the bright red blood in his urine. 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 01/01/25 Unknown History mcg-formot 4.8 mcg/actuation HFA inhaler (Breztri Aerosphere) albuterol sulfate 90 mcg/actuation 2 puff inhalation Q 4H PRN 01/18/25 Unknown History aerosol inhaler sob/wheezing nystatin 100,000 unit/gram topical 1 applic topical BI D yeast 01/18/25 02/17/25 History powder triamcinolone acetonide 0.1 % 1 applic topical BID PRN for feet 01/18/25 02/17/25 History topical cream apixaban 5 mg tablet (Eliquis) 5 mg PO BID 02/12/25 History prednisone 20 mg tablet 40 mg (2 x 20 mg) PO DAILY 7 days 02/19/25 Unknown Rx #14 tabs AMITRIPT 02/21/25 Unknown History amitriptyline 10 mg tablet 10 mg PO QPM 02/21/25 Unkno wn History buprenorphine 10 mcg/hour weekly 1 patch topical QWEEK 02/21/25 Unknown History transdermal patch cephalexin 500 mg capsule 500 mg PO Q12 #14 CAPSULES 1 Unknown Rx Allergy/AdvReac Type Severity Reaction Status [...] soft and nontender without guarding or rebound. Neurological examination nonfocal, nonlateralizing. No pallor of subconjunctival or palms ofhands. No central cyanosis. Const Vital Signs: 02/21/25 18:11 02/21/25 21:47 Temperature 98.7 F 97.7 F L Temperature Source Oral Oral Pulse Rate 66 72 Respiratory Rate 18 16 Blood Pressure 124/61 H 127/76 H Blood Pressure Mean 82 93 Pulse Ox 96 97 Oxygen Delivery Method Room Air Room Air MDM MDM MDM Narrative Medical decision making narrative: The differential diagnosis includes but not limited to hemorrhagic cystitis versus broken blood vessel on anticoagulant versus ureterolithiasis versus bladder mass. I have lower suspicion for ureterolithiasis as he is having more painless hematuria. I will check a CBC to make sure he is not anemic, but he does not appear that way on examination. BMP will be checked to check BUN and creatinine. Urinalysis will be obtained to rule out infection and the need for antibiotics. I do feel he merits CT without contrast to look for bladder mass versus stones. I reviewed his laboratory work and he has normal white count of 4.6 with hemoglobin stable at 10.5 when compared to prior labs. Platelet count normal at184. Sodium normal at 138 with potassium 3.9, BUN elevated 61 with creatinine 1.81. When compared to prior labs, he has had chronic kidney disease with creatinine 1.81 in the past. Glucose 132 with normal anion gap of 13. CT of the abdomen pelvis shows no bladder mass or polyp. In review of his urinalysis and microanalysis he has greater than 100 WBCs and greater than 100 RBCs. I feel he probably has more of a hemorrhagic cystitis or cystitis with hematuria. Patient feels well enough and would like to be discharged. He was given his first dose of cephalexin here in the emergency department and prescription written to take twice a day for the next 7 days. He has urine cultures pending. He was told that he may need to hold his Eliquis for the next few days. I feelhe can be discharged to follow-up with his primary care provider. He is motivated for discharge. Return instructions were reviewed. Disposition is discharged home in stable condition. History & Record Review Discussion w/independent historian: Patient Additional record(s) reviewed:: Prior ED visit and Prior labs (Chronic kidney disease patient) Lab Data Attestation: I reviewed the patient's lab results. Labs: Laboratory Results - last 24 hr 02/21/25 02/21/25 18:20 19:24 WBC 4.6 RBC 3.17 L Hgb 10.5 L Hct 31.2 L MCV 98.4 H MCH 33.1 H MCHC 33.7 RDW Std Deviation 63.5 H RDW Coeff of Beth 17.6 H Plt Count 184 MPV 9.8 Immature Gran % (Auto) 0.900 Neut % (Auto) 90.1 H Lymph % (Auto) 7.5 L Dickson % (Auto) 1.3 Eos % (Auto) 0.0 Baso % (Auto) 0.2 Absolute Neuts (auto) 4.2 Absolute Lymphs (auto) 0.35 L Nucleated RBC % 0 Sodium 138 Potassium 3.9 Chloride 107 Carbon Dioxide 18.7 L Anion Gap 13 BUN 61 H Creatinine 1.81 H Estim Creat Clear Calc 25.01 L Est GFR (MDRD) Non-Af 36 L BUN/Creatinine Ratio 33.8 H Glucose 132 H Calcium 8.5 Urine Color Luna Urine Clarity Cloudy Urine pH 5.0 Ur Specific Menard 1.015 Urine Protein 100 H Urine Glucose (UA) Normal Urine Ketones Negative Urine Occult Blood 250 H Urine Nitrite Positive H Urine Bilirubin Negative Urine Urobilinogen Normal Ur Leukocyte Esterase 100 H Urine RBC > 100 SEEN Urine WBC >100 SEEN Ur Squamous Epith Cells 0-5 SEEN Amorphous Sediment 2+ Urine Bacteria 3+ Urine Mucus 0 SEEN Radiography Diagnostic Testing: Clinical Impression(s) from Imaging Studies Abdomen/Pelvis CT 02/21/25 18:26 IMPRESSION: Stable right lower lobe round atelectasis; continued imaging surveillance recommended. Right kidney nonobstructive calculus. Left renal simple cyst. Colonic diverticulosis without diverticulitis. Long segment sigmoid wall thickening, possibly due to nonspecific colitis; correlate clinically. Dense colonic stool suggesting constipation. Infrarenal abdominal aortic aneurysm measuring 3.6 cm with severe atherosclerosis. Fat-containing bilateral inguinal hernias. 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 of 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 Instructions: ED Urinary Tract Infections in Men Prescriptions: New cephalexin 500 mg capsule 500 mg PO Q12 Qty: 14 0RF No Action amlodipine 5 mg tablet 5 mg PO DAILY nystatin 100,000 unit/gram powder 1 applic topical BID triamcinolone acetonide 0.1 % cream 1 applic topical BID PRN (Reason: for feet) Eliquis 5 mg tablet 5 mg PO BID albuterol sulfate 90 mcg/actuation HFA aerosol inhaler 2 puff INHALATION Q4H PRN (Reason: sob/wheezing) Patient Comments: pt sais he does not use because it doesnt help oxybutynin chloride 10 mg tablet extended release 24hr 10 mg PO DAILY artifi.tears(hypromellose)(PF) 1.7 % drops with applicator 1 drp EACH EYE DAILY PRN (Reason: dry eyes) Breztri Aerosphere 160-9-4.8 mcg/actuation HFA aerosol inhaler 2 inh inhalation BID Patient Comments: pt states he does not use because it doesnt help prednisone 20 mg tablet 40 mg PO DAILY 7 Days Qty: 14 0RF AMITRIPT amitriptyline 10 mg tablet 10 mg PO QPM buprenorphine 10 mcg/hour patch weekly 1 patch topical QWEEK Primary Care Provider: Shoshana Ulrich Referrals: Shoshana Ulrich MD [Primary Care Provider, Family Practice] - 3-5 Days Activity Restrictions/Additional Instructions: You may need to hold your Eliquis for the next few days. Drink plenty of oral fluids. Antibiotics for a bladder infection. Return with increased bleeding, fever, new or worsening symptoms. Print Language: Chinese Disposition Disposition: Home, Self Care What to do if you have Problems For any increased pain, shortness of breath, bleeding, nausea or vomiting, chestpain, or any unexpected problems, contact your Primary Care Provider. Call [facility] ([phone]) or report to the closest Emergency Room. Call 911 if necessary. 02/21/252154 <Electronically signed by Chito Werner MD> Cosigner Signature (if applicable): CC: Dr. Shoshana Ulrich MD ~ Signed [facility] Work Phone: 1(705) 324-180910-07-2025 Radiology Diagnostic study note [facility] Imaging Services [address] [place] [address] Chest 1 View (Portable) MR#: [id number] Acct: [id number] Name: DORIAN CRAMER Rep #: [id number] : 1935 M 89 From: Lotus Melgar MD PCP: Dr. Shoshana Ulrich MD Status: REG ER Study:Chest 1 View (Portable) Date of Exam: 02/19/25 Exam# [id number] Ordering Dr: Chito Werner MD PROCEDURE: CHEST [...] (Portable) IMPRESSION: No acute abnormality Reading Location: [facility] CC: Dr. Chito Werner MD; Dr. Shoshana Ulrich MD ~ Rn Medical Inpatient Services: Signed [facility]09-30-2025 Progress [facility] [address] [place] [address] OFFICE VISIT Date of Service: 02/12/25 MR#: [id number] Acct: [id number] Name: DORIAN CRAMER Rep #: [id number] : 1935 Provider: Dr. 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 01/01/25 02/12/25 History mcg-formot 4.8 mcg/actuation HFA inhaler (Breztri Aerosphere) AMITRIPT 5% LIDO 5% KETAMINE 10% topical .1-3 TIMES DA ELAINE PRN 01/18/25 02/12/25 History albuterol sulfate 90 [...] in the past year?: Yes (loses balance) PFSH Medical History Cellulitis of right upper extremity [...] Negative for SOB at rest or SOB orthopnea\SOB lying down GI GI: Negative nausea or heartburn Musc Musc: Positive for balance problems Neuro Neuro: Negative for dizziness, lightheadedness, near syncope, syncope or weakness Endo Endo: Negative for fatigue Cardiology Exam Exam Narrative Comfortable. No apparent distress. No carotid bruits. Heart sounds 1 and 2 noted. No murmurs. Chestwith decreased air entry bilaterally. Alert orientedx 3. [...] view of coronary artery disease. Start atorvastatin 10mg once daily. (6) History of DVT (deep [...] Cardiac Ejection fraction %: 55 02/12/25 1109 > Date _ Blas Arellano MD Cosigner Signature: Date (if applicable) CC: Dr. Shoshana Ulrich MD ~ [facility]08-01-2025 NoteHNO ID: [id number] Author: SAMMY, OLGA, PA-C Service: ? Author Type: Physician Refrigeration Tech Type: Progress Notes Filed: 12/14/2024 13:10 Note Text: Ol[facility] Christianson [facility]-C [facility] [address] [address] 12/14/2024 ASSESSMENT AND PLAN: Assessment : Encounter [...] had any imaging at all here at [facility] in recent years. SUMMARY/PLAN: With his complaints [...] today with this patient visit. This includes jkee-[id number]-itgz time, review of chart records regarding conservative care history, spine-pertinent imaging, and communication/care coordination with referring provider, problem-specific history-taking and counseling/education regarding treatment options. cc: No referring provider defined for this encounter. Phone: N/A Fax: Results of consultation to be transmitted via electronic medical record for those providers who practice within [facility] [place] or with access to [facility] via MD Connect, or via letter. ######################################################################## CHIEF COMPLAINT: Patient is here for the lower back pain, left side is more painful. Has this pain for years. Level of the pain is at 8/10. Medication helps sometimes. HPI: see Discussion above History of bowel or bladder dysfunction (not IBS or constipation): No History of previous spinal surgery: Yes, performed in 1989 at [facility]. The procedure was a L4-L5 Laminectomy. History [...] as needed. triamcinolone aceton (more content not included)...[facility] 12-14-2024 History of Present illness Narrative* Olga Christianson PA-C - 12/14/2024 12:06 PM EDT Images from the original note were not included. Olga Christianson PA-C [facility] [address] [place] [address] 12/14/2024 ASSESSMENT AND PLAN: Assessment : Encounter [...] had any imaging at all here at [facility] in recent years. SUMMARY/PLAN: With his complaints [...] today with this patient visit. This includes llvt-fr-fvny time, review of chart records regarding conservative care history, spine- pertinent imaging, and communication/care coordination with referring provider, problem-specific history-taking and counseling/education regarding treatment options. cc: No referring provider defined for this encounter. Phone: N/A Fax: Results of consultation to be transmitted via electronic medical record for those providers who practice within [facility] [place] or with access to [facility] via MD Connect, or via letter. ######################################################################## CHIEF COMPLAINT: Patient is here for the lower back pain, left side is more painful. Has this pain for years. Level of the pain is at 8/10. Medication helps sometimes. HPI: see Discussion above History of bowel or bladder dysfunction (not IBS or constipation): No History of previous spinal surgery: Yes, performed in 1989 at [facility]. The procedure was a L4-L5 Laminectomy. History [...] Hematologic: (-) Prolonged Bleeding (+) Easy Bruising ################################################################################ ################################################# PHYSICAL EXAM: Blood pressure 126/66, pulse 75, height 167.6 cm (5' 6), weight 64.3 kg (141 lb 12.1 oz), [...] alert and oriented in all spheres. The patient'soverall medical judgment appeared to be fair.The patient's [...] STUDIES: See discussion above [facility] Evaluation note* Diagnosis Onset Date Resolution Status Admit Date DVT (deep venous thrombosis) acute November 21, 2024 11:24am Rectus sheath hematoma acute 2024 11:24am S/P IVC filter acute November [...] cardiovascular examination noneactive February 12, 2025 10:28am Back pain acute March 04, 2025 7:29pm History of back surgery acute O ctober 2024 7:29pm Hx of degenerative disc disease acute March 04 7:29pm Intractable back pain acute Feb 7:29pm Chronic pain chronic February 7:29pm [facility] Work Phone: 1(335) 875-498607-09-2025 Evaluation note* Diagnosis Onset Date Resolution Status Admit Date DVT (deep venous thrombosis) acute November 21, 2024 11:24am Rectus sheath hematoma acute Ju 2024 11:24am S/P IVC filter acute November [...] cardiovascular examination noneactive February 12, 2025 10:28am Back pain inactive March 04, 2025 7:29pm Chronic pain inactive February 7:29pm History of back surgery inactive O ctober 2024 7:29pm Hx of degenerative disc disease inactive March 04 7:29pm Intractable back pain inactive Feb 7:29pm [facility] Work Phone: 1(888) 764-708007-02-2025 Telephone encounter Note* Telephone Encounter - Allegra Sanchez, RN - 11/14/2024 4:56 PM EDT TC to [facility] to advise that 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 No answer, left detailed VM on secure line with office number for any questions. 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 No answer, left detailed VM on secure line with office number for any questions. EVGENY Byrnes * Telephone Encounter - Melia Atwood - 11/14/2024 11:32 AM EDT Patient contacted the office stating he contacted the Neuromuscular department and they explained to the patient they do not see for the area of the body the patient is having pain in.Patient states having pain in groin area. Please advise. * Telephone Encounter - Anastasiia Landers LPN - 11/14/2024 10:33 AM EDT Phoned patient and advised him of provider's message stating he should be scheduled with Neuromuscular and not neurology. Patient given neuro scheduling desk number and he voiced understanding. Anastasiia Landers LPN documented in this encounterKind[facility]07-02-2025 Telephone encounter Note * Telephone Encounter - Melia Atwood - 11/14/2024 11:32 AM EDT Patient contacted the office stating he contacted the Neuromuscular department and they explained to the patient they do not see for the area of the body the patient is having pain in.Patient states having pain in groin area. Please advise. [facility]07-02-2025 Telephone encounter Note* Telephone Encounter - Anastasiia Landers LPN - 11/14/2024 10:33 AM EDT Phoned patient and advised him of provider's message stating he should be scheduled with Neuromuscular and not neurology. Patient given neuro scheduling desk number and he voiced understanding. Anastasiia Landers LPN [facility]06-24-2025 Consult note Author Martita Jacobs [facility] Note Date/Time November 06, 2024 10:5 1am [facility] Medical Records Department [address] [place] [address] Counseling Note - Pharmacy 11/06/24 1050 MR#: [id number] Acct: [id number] Name: DORIAN CRAMER Rep #:[id number] : 1935 89 From: Martita Jacobs PCP: Dr. Shoshana Ulrich MD Status:ADM IN Location: [place] [address] [place] Med Reconciliation Pharmacy Service has performed discharge [...] Signature (if applicable): Date CC: ~ Signed [facility] Work Phone: 1(752) 204-849006-24-2025 Discharge summary Author Daniel Neal [facility] Note Date/Time November 06, 2024 10:4 2am [facility] Medical Records Department [address] [place] [address] Instructions for Home/Discharge Instructions 11/06/24 1039 MR#: [id number] Acct: [id number] Name: DORIAN CRAMER Rep #:[id number] : [...] MD; Dr. Rylie Arreaga MD ~ Signed [facility] Work Phone: 1(828) 465-224306-24-2025 Consult note [facility] Medical Records Department [address] [place] [address] Counseling Note - Pharmacy 11/06/24 1050 MR#: [id number] Acct: [id number] Name: DORIAN CRAMER Rep #:[id number] : 1935 89 From: Martita Jacobs PCP: Dr. Shoshana Ulrich MD Status:ADM IN Y Location: [place] [address] Pharmacy [place] Med Reconciliation Pharmacy Service has performed discharge [...] Signature (if applicable): Date CC: ~ Signed [facility]06-24-2025 Discharge summary [facility] Medical Records Department [address] [place] [address] Instructions for Home/Discharge Instructions 11/06/24 1039 MR#: [id number] Acct: [id number] Name: DORIAN CRAMER Rep #:[id number] : [...] be placed): Home, Self Care 11/06/24 1042Daniel Neal DO CC: Dr. Raghav Serrano DO; Dr. Santana Mason MD; Dr. Shoshana Ulrich MD; Dr. Rylie Arreaga MD ~ Signed [facility]06-24-20[facility] Progress note Author Daniel [facility] Note Date/Time November 05, 2024 4:22 pm [facility] Medical Records Department [address] [place] [address] Progress Note - Hospitalist 11/05/24 1618 MR#: [id number] Acct: [id number] Name: DORIAN CRAMER Rep #:[id number] : 1935 89 From: Daniel Neal DO PCP: Dr. Shoshana Ulrich MD Status:ADM IN Location: [facility] VL571-6 Reason for Visit Reason for Visit: Diagnoses [...] 74.7 H, Lymph % (Auto) 13.8 L, Dickson % (Auto) 7.6, Eos % (Auto) 2.3, [...] 71.6 H, Lymph % (Auto) 17.0 L, Dickson % (Auto) 7.4, Eos % (Auto) 2.5, [...] 35 minutes Charges/Coding Visit Charges Inpatient E&M: 76837 Subs Hosp L2 11/05/24 1622 <Electronically signed by Daniel Neal DO> Cosigner Signature (if applicable): CC: ~ Signed [facility] Work Phone: [phone]) 369-571206-23-2025 Progress note [facility] Medical Records Department [address] [place] [address] Progress Note - Hospitalist 11/05/24 1618 MR#: [id number] Acct: [id number] Name: DORIAN CRAMER Rep #:[id number] : 1935 89 From: Daniel Neal DO PCP: Dr. Shoshana Ulrich MD Status:ADM IN Location: [facility] FE536-0 Reason for Visit Reason for Visit: Diagnoses [...] 74.7 H, Lymph % (Auto) 13.8 L, Dickson % (Auto) 7.6, Eos % (Auto) 2.3, [...] 71.6 H, Lymph % (Auto) 17.0 L, Dickson % (Auto) 7.4, Eos % (Auto) 2.5, [...] 35 minutes Charges/Coding Visit Charges Inpatient E&M: 80955 Subs Hosp L2 11/05/24 1622 Cosigner Signature (if applicable): CC: ~ Signed [facility]06-23-2025 Procedure note [facility] Medical Records Department [address] [place] [address] Operative Report 11/05/24 1553 MR#: [id number] Acct: [id number] Name: DORIAN CRAMER Rep #:[id number] : 1935 89 From: Santana Mason MD PCP: Dr. Shoshana Ulrich MD Status:ADM [id number] (Standard) Operative Information Date of Procedure: 11/05/24 Pre-Operative Diagnosis: DVT, rectus sheath hematoma Post-Operative Diagnosis: same Surgery/Procedure Performed: insertion inferior vena cava filter co founder and cto: No Type of Anesthesia: Local and Sedation,Conscious [...] site the patient was taken to the Cigar [employer]inder was positioned prepped and draped in usual [...] Shoshana Ulrich MD;Dr. Rylie Arreaga MD~ Signed [facility]06-23-2025 Consult note Author Santana Mason [facility] Note Date/Time November 05, 2024 10:1 2am [facility] Medical Records Department [address] [place] [address] Consultation - Surgical 11/05/24 1005 MR#: [id number] Acct: [id number] Name: DORIAN CRAMER Rep #:[id number] : 1935 89 From: Santana Mason MD PCP: Dr. Shoshana Ulrich MD Status:ADM IN Location: [facility] OH169-1 Assessment & Plan Assessment/Plan (1) DVT (deep [...] to be appropriate for IVC filter placement. [facility] Medical History Alcohol use Prostate disease History [...] 74.7 H, Lymph % (Auto) 13.8 L, Dickson % (Auto) 7.6, Eos % (Auto) 2.3, [...] 71.6 H, Lymph % (Auto) 17.0 L, Dickson % (Auto) 7.4, Eos % (Auto) 2.5, [...] Rollins DO; Dr. Shoshana Ulrich MD~ Signed [facility] Work Phone: 1([phone]) 470-385906-23-2025 Consult note [facility] Medical Records Department [address] [place] [address] Consultation - Surgical 11/05/24 1005 MR#: [id number] Acct: [id number] Name: DORIAN CRAMER Rep #:[id number] : 1935 89 From: Santana Mason MD PCP: Dr. Shoshana Ulrich MD Status:ADM IN Location: MS3 NN694-2 Assessment & Plan Assessment/Plan (1) DVT (deep [...] to be appropriate for IVC filter placement. [facility] Medical History Alcohol use Prostate disease History [...] 74.7 H, Lymph % (Auto) 13.8 L, Dickson % (Auto) 7.6, Eos % (Auto) 2.3, [...] 71.6 H, Lymph % (Auto) 17.0 L, Dickson % (Auto) 7.4, Eos % (Auto) 2.5, Baso % (Auto)0.4, Absolute Neuts (auto) 3.4, Absolute Lymphs (auto) 0.80 L, Nucleated RBC % 0, APTT 79.5 H,Triglycerides 89, Cholesterol 187, LDL Cholesterol, Calc 104, VLDL Cholesterol 18, HDL Cholesterol 65, Cholesterol/HDL Ratio 2.87 11/05/24 1012 Cosigner Signature (if applicable): CC: Dr. Rand Rollins DO; Dr. Shoshana Ulrich MD~ Signed [facility]06-22-2025 Progress note Author Daniel [facility] Note Date/Time November 04, 2024 5:27 pm [facility] Medical Records Department [address] [place] [address] Progress Note - Hospitalist 11/04/24 1723 MR#: [id number] Acct: [id number] Name: DORIAN CRAMER Rep #:[id number] : 1935 89 From: Daniel Neal DO PCP: Dr. Shoshana Ulrich MD Status:[facility] Reason for Visit Reason for Visit: Diagnoses [...] 35 minutes Charges/Coding Visit Charges Inpatient E&M: 13173 Subs Hosp L2 11/04/24 1727 <Electronically signed by Daniel Neal DO> Cosigner Signature (if applicable): CC: ~ Signed [facility] Work Phone: 1(555) 622-611706-22-2025 Progress note [facility] Medical Records Department [address] [place] [address] Progress Note - Hospitalist 11/04/24 1723 MR#: [id number] Acct: [id number] Name: DORIAN CRAMER Rep #:[id number] : 1935 89 From: Daniel Neal DO PCP: Dr. Shoshana Ulrich MD Status:ADM IN Location: [place] [address]-1 Reason for Visit Reason for Visit: Diagnoses [...] 35 minutes Charges/Coding Visit Charges Inpatient E&M: 86328 [facility] Hosp 11/04/24 1727 Cosigner Signature (if applicable): CC: ~ Signed [facility]06-22-2025 Discharge summary Author Rand Rollins [facility] Note Date/Time November 04, 2024 7:35 am [facility] Medical Records Department [address] [place] [address] Emergency Department Summary 11/02/24 MR#: [id number] Acct: [id number] Name: DORIAN CRAMER Rep #:[id number] : 1935 89 From: Rand Ballard PCP: Dr. Shoshana Ulrich MD Status:ADM IN Location: [facility] GO531-3 HPI <AARON Benítez - Last Filed: 11/02/24 [...] 2-3 times daily for chronic back pain. [facility] <AARON Benítez - Last Filed: 11/02/24 20:52> [facility] Medical History Alcohol use Prostate disease History [...] Air Room Air Oxygen Flow Rate (L/min) [facility] <AARON Benítez - Last Filed: 11/02/24 20:52> [facility] Narrative Medical decision making narrative: [...] Colonic diverticulosis without acute diverticulitis. Reading Location: [facility] <Dr. Rand Rollins, - Last Filed: 11/04/24 07:35> [facility] Lab Data Labs: Laboratory Results - last [...] Colonic diverticulosis without acute diverticulitis. Reading Location: [facility] Treatment and Re-Evaluation :: I have personally [...] use, Constipation Disposition Disposition: Acute Care Hospital [facility] Discharge Date/Time: 11/02/24 19:51 What to do if you have Problems For any increased pain, shortness of breath, bleeding, nausea or vomiting, chest pain, or any unexpected problems, contact your Primary Care Provider. Call [facility] ([phone]) or report to the closest Emergency Room. Call 911 if necessary. 11/04/24 0735 <Electronically signed by Rand Rollins DO> Cosigner Signature (if applicable): 11/02/242051 <Electronically signed by Manju WALKER> CC: Dr. Shoshana Ulrich MD ~ Signed [facility] Work Phone: 1([phone]) 145-985406-22-2025 Discharge summary [facility] Medical Records Department [address] [place] [address] Emergency Department Summary 11/02/24 MR#: [id number] Acct: [id number] Name: DORIAN CRAMER Rep #:[id number] : 1935 89 From: Rand Ballard PCP: Dr. Shoshana Ulrich MD Status:ADM IN Location: [place]3 TU863-0 HPI History of Present Illness Chief Complaint: [...] 2-3 times daily for chronic back pain. [facility] Medical History Alcohol use Prostate disease History [...] Colonic diverticulosis without acute diverticulitis. Reading Location: [facility] Lab Data Labs: Laboratory Results - last [...] Colonic diverticulosis without acute diverticulitis. Reading Location: [facility] Treatment and Re-Evaluation :: I have personally [...] use, Constipation Disposition Disposition: Acute Care Hospital [facility] Discharge Date/Time: 11/02/24 19:51 What to do if you have Problems For any increased pain, shortness of breath, bleeding, nausea or vomiting, chest pain, or any unexpected problems, contact your Primary Care Provider. Call [facility] ([phone]) or report to the closest Emergency Room. Call 911 if necessary. 11/04/24 0765 Cosigner Signature (if applicable): 11/02/242051 CC: Dr. Shoshana Ulrich MD ~ Signed [facility]06-21-2025 Evaluation note* Diagnosis Onset Date Resolution Status Admit Date DVT (deep venous thrombosis) acute November 03, 2024 3:03pm Rectus sheath hematoma acute Ju 2024 3:03pm [facility] Work Phone: 1(864) 374-248406-21-2025 Evaluation note* Diagnosis Onset Date Resolution Status Admit Date DVT (deep venous thrombosis) acute November 03, 2024 3:03pm Rectus sheath hematoma acute Ju 2024 3:03pm DVT (deep venous thrombosis) acute November 21, 2024 11:24am Rectus sheath hematoma acute Ju ly 2024 11:24am S/P IVC filter acute November 21, 2024 11:24am [facility] Work Phone: 1(520) 517-549806-21-2025 Evaluation note* Diagnosis Onset Date Resolution Status [...] chronic Septe mber 2024 10:28am [facility] 10[facility]28am Preoperative cardiovascular examination noneactive February 12, 2025 10:28am [facility] Work Phone: 1([phone]) 683-539306-21-2025 Progress note Author Rylie Arreaga [facility] Note Date/Time November 03, 2024 9:29 am [facility] Medical Records Department [address] [place] [address] Progress Note - Hospitalist 11/03/24 0918 MR#: [id number] Acct: [id number] Name: DORIAN CRAMER Rep #:[id number] : 1935 89 From: Rylie Arreaga MD PCP: Dr. Shoshana Ulrich MD Status:ADM CATA Location: MS3 WZ394-8 Reason for Visit Reason for Visit: Diagnoses Contusion of abdominal wall, initial encounter (11/02/24) Subjective Subjective Patient was up to bathroom and sat back down in chair immediately before evaluation, reports that when he pushes on his abdomen is fourdrinier tender in the right lower quadrant but [...] 87.4 H, Lymph % (Auto) 4.5 L, Dickson % (Auto) 6.7, Eos % (Auto) 0.0, [...] Clarity Clear, Urine pH 8.0, Ur Specific Menard 1.010, Urine Protein 30 H, Urine Glucose [...] Colonic diverticulosis without acute diverticulitis. Reading Location: [facility] Physical Exam Narrative General: Alert, oriented, no [...] Arreaga MD Charges/Coding Visit Charges Inpatient E&M: 71462 Subs Hosp L2 11/03/24928 <Electronically signed by Rylie Arreaga MD> Cosigner Signature (if applicable): CC: ~ Signed [facility] Work Phone: 1(670) 892-259706-21-2025 Progress note [facility] Medical Records Department [address] [place] [address] Progress Note - Hospitalist 11/03/24917 MR#: [id number] Acct: [id number] Name: DORIAN CRAMER Rep #:[id number] : 1935 89 From: Rylie Arreaga MD PCP: Dr. Shoshana Ulrich MD Status:ADM [facility] Location: [place] [address] Reason for Visit Reason for Visit: Diagnoses Contusion of abdominal wall, initial encounter (11/02/24) Subjective Subjective Patient was up to bathroom and sat back down in chair immediately before evaluation, reports that when he pushes on his abdomen is fourdrinier tender in the right lower quadrant but [...] 87.4 H, Lymph % (Auto) 4.5 L, Dickson % (Auto) 6.7, Eos % (Auto) 0.0, [...] Clarity Clear, Urine pH 8.0, Ur Specific Menard 1.010, Urine Protein 30 H, Urine Glucose [...] Colonic diverticulosis without acute diverticulitis. Reading Location: [facility] Physical Exam Narrative General: Alert, oriented, [...] Arreaga MD Charges/Coding Visit Charges Inpatient E&M: 58083 Subs Hosp L2 11/03/24 2020 Cosigner Signature (if applicable): CC: ~ Signed [facility]06-20-2025 History and physical note Author Raghav Serrano [facility] Note Date/Time November 02, 2024 9:33 pm [facility] Medical Records Department [address] [place] [address] H&P Exam - Hospitalist 11/02/242114 MR#: [id number] Acct: [id number] Name: DORIAN CRAMER Rep #:[id number] : 1935 89 From: Raghav Manuel francisco j DO PCP: Dr. Shoshana Ulrich MD Status:ADM CATA Location: [facility] GU910-6 HPI - General General Date of Admission: 11/02/24 Date of Service: 11/02/24 Chief Complaint: Right lower abdominal pain HPI Narrative DORIAN CRAMER, is a 89 M who presented to [facility] ED on 11/02/2024 with worsening right lower [...] currently. Will be admitted for further management. [facility] Medical History Alcohol use Prostate disease History [...] 87.4 H, Lymph % (Auto) 4.5 L, Dickson % (Auto) 6.7, Eos % (Auto) 0.0, [...] Clarity Clear, Urine pH 8.0, Ur Specific Menard 1.010, Urine Protein 30 H, Urine Glucose [...] Colonic diverticulosis without acute diverticulitis. Reading Location: [facility] Assessment & Plan Assessment/Plan (1) Rectus sheath hematoma: PLAN: Plan Patient is an 89-year-old male who presented to [facility] ED on11/02/2024 with worsening right lower abdominal pain and swelling. 1. Rectus sheath hematoma ? Admit under observation status to [facility]. Presented with right lower abdominal [...] 75 minutes. Charges/Coding Visit Charges Inpatient E&M: 50591 Init Hosp L3 11/02/242132 <Electronically signed by Raghav Serrano DO> Cosigner Signature (if applicable): CC: Dr. Raghav Serrano DO; Dr. Shoshana Ulrich MD~ Signed [facility] Work Phone: 1([phone]) 745-367606-20-2025 History and physical note [facility] Medical Records Department [address] [place] [address] H&P Exam - Hospitalist 11/02/242114 MR#: [id number] Acct: [id number] Name: DORIAN CRAMER Rep #:[id number] : 1935 89 From: Raghav gaming DO PCP: Dr. Shoshana Ulrich MD Status:ADM CATA Location: [place]3 WX875-2 HPI - General General Date of Admission: 11/02/24 Date of Service: 11/02/24 Chief Complaint: Right lower abdominal pain HPI Narrative DORIAN CRAMER, is a 89 M who presented to [facility] ED on 11/02/2024 with worsening right lower [...] currently. Will be admitted for further management. [facility] Medical History Alcohol use Prostate disease History [...] 87.4 H, Lymph % (Auto) 4.5 L, Dickson % (Auto) 6.7, Eos % (Auto) 0.0, [...] Clarity Clear, Urine pH 8.0, Ur Specific Menard 1.010, Urine Protein 30 H, Urine Glucose [...] Colonic diverticulosis without acute diverticulitis. Reading Location: [facility] Assessment & Plan Assessment/Plan (1) Rectus sheath hematoma: PLAN: Plan Patient is an 89-year-old male who presented to [facility] ED on11/02/2024 with worsening right lower abdominal pain and swelling. 1. Rectus sheath hematoma ? Admit under observation status to [facility]. Presented with right lower abdominal [...] 75 minutes. Charges/Coding Visit Charges Inpatient E&M: 75270 Init Hosp L3 11/02/244 Cosigner Signature (if applicable): CC: Dr. Raghav Serrano DO; Dr. Shoshana Ulrich MD~ Signed [facility]06-20-2025 Radiology Diagnostic study note [facility] Imaging Services [address] [place] [address] Abdomen/Pelvis W IV Cont ONLY MR#: [id number] Acct: [id number] Name: DORIAN CRAMER Rep #: [id number] : 1935 M 89 From: Germania Carlton MD PCP: Dr. Shoshana Ulrich MD Status: REG ER Study:Abdomen/Pelvis W IV Cont ONLY Date of E xam: 11/02/24 Exam# [id number] Ordering Dr: Manju Ulrich EXAM: CT Abdomen [...] Colonic diverticulosis without acute diverticulitis. Reading Location: [facility] CC: Dr. 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, 2024 12:50pm Paresthesia chronic June 12:50pm [facility] Work Phone: 1([phone]) 897-219202-28-2025 Evaluation note* Diagnosis Onset Date Resolution Status Admit Date 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, 2024 12:50pm Paresthesia chronic June 12:50pm DVT (deep venous thrombosis) acute November 03, 2024 3:03pm Rectus sheath hematoma acute Ju 2024 3:03pm [facility] Work Phone: [phone] Evaluation note* Diagnosis Onset Date Resolution Status Admit Date Acute deep vein thrombosis (DVT) of right lower extremity inactive F ebruary 2024 3:50pm 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, 2024 12:50pm Paresthesia chronic June 12:50pm [facility] Work Phone: 1([phone]) 765-914805-07-2024 [facility]05-07-2024 Progress note Author Rosemary Fernandez [facility] September 20, 2023 1:17pm Note Date/Time September 20, 2023 1:17pm [facility] Medical Records Department [address] [place] [address] Progress Note - Hospitalist 09/20/23 1314 MR#: [id number] Acct: [id number] Name: DORIAN CRAMER Rep #:[id number] : 1935 88 From: Rosemary Fernandez DO PCP: Dr. Shoshana Ulrich MD Status:ADM IN Location: MS3 TH443-8 Reason for Visit Reason for Visit: Bright [...] % (Auto) 59.0, Lymph % (Auto) 22.8, Dickson % (Auto) 7.8, Eos % (Auto) 9.2 [...] with endoscopy. Charges/Coding Visit Charges Inpatient E&M: 00955 Subs Hosp L2 09/20/23 1317 <Electronically signed by Rosemary Fernandez DO> Cosigner Signature (if applicable): CC: ~ Signed [facility] Work Phone: 1(649) [phone] Consult note Author Lionel Lee [facility] September 19, 2023 5:56pm Note Date/Time September 19, 2023 5:50pm [facility] Medical Records Department [address] [place] [address] Consultation - GI 09/19/23 1750 MR#: [id number] Acct: [id number] Name: DORIAN CRAMER Rep #:[id number] : 1935 88 From: Lionel Lee DO PCP: Dr. Shoshana Ulrich MD Status:ADM IN Location: [facility] PH669-1 HPI Consult Data Date of Consult: 09/19/23 [...] round atelectasis in the right lower lobe. [facility] Medical History Alcohol abuse Alcohol use [...] (Auto) 68.4, Lymph % (Auto) 15.3 L, Dickson % (Auto) 6.9, Eos % (Auto) 8.1 [...] capsule study. Charges/Coding Visit Charges Inpatient E&M: 39134 Init Hosp L3 09/19/23 1756 <Electronically signed by Lionel Lee DO> Cosigner Signature (if applicable): CC: Dr. Shoshana Ulrich MD~ Signed [facility] Work Phone: 1(881) 479-602705-06-2024 History and physical note Author Rosemary Fernandez [facility] September 19, 2023 5:33pm Note Date/Time September 19, 2023 12:19p m [facility] Medical Records Department [address] [place] [address] H&P Exam - Hospitalist 09/19/23 1217 MR#: [id number] Acct: [id number] Name: DORIAN CRAMER Rep #:[id number] : 1935 88 From: Rosemary Fernandez DO PCP: Dr. Shoshana Ulrich MD Status:ADM IN Location: [facility] WT987-4 HPI - General General Date of Admission: 09/19/23 Date of Service: 09/19/23 Chief Complaint: BRBPR HPI Narrative DORIAN CRAMER, is a 88 M who presented to the emergency department [facility] on 09/19/2023 with bright red blood per [...] emergency department and found to be negative. [facility] Medical History Alcohol abuse Alcohol use Cancer [...] (Auto) 68.4, Lymph % (Auto) 15.3 L, Dickson % (Auto) 6.9, Eos % (Auto) 8.1 [...] with endoscopy. Charges/Coding Visit Charges Inpatient E&M: 77316 Init Hosp L2 09/19/23 1733 <Electronically signed by Rosemary Fernandez DO> Cosigner Signature (if applicable): CC: Dr. Shoshana Ulrich MD; Dr. Rosemary Fernandez DO~ Signed [facility] Work Phone: 1([phone]) 614-209805-06-2024 Discharge summary Author Russel Pal [facility] September 19, 2023 12:44pm Note Date/Time September 19, 2023 9:03am [facility] Medical Records Department [address] [place] [address] Emergency Department Summary 09/19/23 MR#: [id number] Acct: [id number] Name: DORIAN CRAMER Rep #:[id number] : 1935 88 From: Russel Pal DO PCP: Dr. Shoshana Ulrich MD Status:ADM IN Location: [facility] YW603-0 HPI HPI - GI History of Present [...] history in the abdomen. Denies urinary complaints. [facility] Medical History Alcohol abuse Alcohol use Cancer [...] a diverticular bleed. I discussed with Dr. eLe who is amenable to keeping the here at [facility]. Admitted to hospitalist. Patient did have another [...] (Auto) 68.4 Lymph % (Auto) 15.3 L Dickson % (Auto) 6.9 Eos % (Auto) 8.1 [...] 10:16 EDT Reading Location ID and State: [facility] / MD , Service support , Discharge Plan Triage Chief Complaint: GI Bleed ED Provider: Russel Pal Dx/Rx/DC Orders Primary Care Provider: Shoshana Ulrich What to do if you have Problems For any increased pain, shortness of breath, bleeding, nausea or vomiting, chestpain, or any unexpected problems, contact your Primary Care Provider. Call [facility] ([phone]) or report to the closest Emergency Room. Call 911 if necessary. 09/19/23 1244 <Electronically signed by Russel Pal DO> Cosigner Signature (if applicable): CC: Dr. Shoshana Ulrich MD ~ Signed [facility] Work Phone: 1([phone]) 166-709205-06-2024 Discharge summary Author Russel Pal [facility] September 19, 2023 12:44pm Note Date/Time September 19, 2023 9:03am [facility] Medical Records Department [address] [place] [address] Emergency Department Summary 09/19/23 MR#: [id number] Acct: [id number] Name: DORIAN CRAMER Rep #:[id number] : 1935 88 From: Russel Pal DO PCP: Dr. Shoshana Ulrich MD Status:[facility] HPI - GI History of Present [...] history in the abdomen. Denies urinary complaints. [facility] Medical History Alcohol abuse Alcohol use Cancer [...] is amenable to keeping the here at [facility]. Admitted to hospitalist. Patient did have another [...] (Auto) 68.4 Lymph % (Auto) 15.3 L Dickson % (Auto) 6.9 Eos % (Auto) 8.1 [...] 10:16 EDT Reading Location ID and State: [facility] / MD , Service support , Discharge Plan Triage Chief Complaint: GI Bleed ED Provider: Russel Pal Dx/Rx/DC Orders Primary Care Provider: Shoshana Ulrich What to do if you have Problems For any increased pain, shortness of breath, bleeding, nausea or vomiting, chestpain, or any unexpected problems, contact your Primary Care Provider. Call [facility] ([phone]) or report to the closest Emergency Room. Call 911 if necessary. 09/19/23 1244 <Electronically signed by Russel Pal DO> Cosigner Signature (if applicable): CC: Dr. Shoshana Ulrich MD ~ Signed [facility] Work Phone: 1(204) 251-582304-23-2024 Discharge summary Author Pola Bustamante [facility] September 06, 2023 2:51pm Note Date/Time September 05, 2023 11: 51am [facility] Physical Therapy [facility] [address] [place] [address]. [address] [place] [address] / REHABILITATION SERVICES DISCHARGE SUMMARY MR#: [id number] Acct: [id number] Name: RANULFODORIAN RODRIGUEZ Rep #: [id number] : 1935 88 From: Cert. KATJA Jansen, OCS Referring Dr.: Dr. Shoshana Ulrich MD [...] please feel free to call me at [phone]. Thank you for the referral of thispatient. Sincerely, Pola Bustamante PT, Cert T, OCS Balance/Gait/Functional tests Balance/Special Test Scores Oswestry Neck Score: 3 Improvement % Improvement: 90 <Electronically signed by Cert. KATJA Lee PT, OCS> 09/06/23 0288 CC: Dr. Shoshana Ulrich MD ~ JLRosaura Signed [facility] Work Phone: 1(427) 525-183006-21-[address] Foster [facility] November 03, 2022 9:27am Note Date/Time November 03, 2022 9:27 am [facility] Medical Records Department [address] [place] [address] Instructions for Home/Discharge Instructions 11/03/22 0926 MR#: [id number] Acct: [id number] Name: DORIAN CRAMER Rep #:[id number] : 1935 87 From: Sam Foster MD PCP: Dr. Shoshana Ulrich MD [place] Discharge Instructions Diet Discharge Diet: No restrictions [...] MD; Dr. Shoshana Ulrich MD ~ Signed [facility] Work Phone: 1(390) 388-810206-21-2023 History and physical note Author Dr. Foster [facility] November 03, 2022 9:26am Note Date/Time November 03, 2022 9:26 am [facility] Medical Records Department [address] [place] [address] History & Physical Exam 11/03/22925 MR#: [id number] Acct: [id number] Name: DORIAN CRAMER Rep #:[id number] : 1935 87 From: Sam Foster MD PCP: Dr. Shoshana Ulrich MD Status:[facility] Location: [place] [address] HPI - General General Date of Service: 11/03/22 Chief Complaint: BPH with obstruction HPI Narrative DORIAN CRAMER, is a 87 M who presents for transurethral resection of the prostate and removal of foreign object UroLift clips. [facility] Medical History (Updated 10/27/22 @ 10:27 by [...] Ulrich MD; Dr. Sam Foster MD~ Signed [facility] Work Phone: 1(897) 625-194206-21-2023 Procedure [facility] 09-11-2021 NoteORIGINAL PROCEDURE: 09/11/2021 11:12 am 1. Ultrasound guided core biopsy, right parotid lesion OIL SCOUT: Dr. Gomez ROTATING EQUIPMENT SPECIALIST: None MATERIALS: 18 G core biopsy device [...] lesion and submitted to pathology and/or microbiology. [place] were removed. Sterile dressing placed. Post procedure [...] Sign Date: 09/11/2021 1:00:04 PM Ordering Provider: [facility] (MD)Consult note Author Martita Jacobs [facility] September 21, 2023 1:32pm Note Date/Time September 21, 2023 1:32pm [facility] Medical Records Department [address] [place] [address] Counseling Note - Pharmacy 09/21/23 1332 MR#: [id number] Acct: [id number] Name: DORIAN CRAMER Rep #:[id number] : 1935 88 From: Martita Jacobs PCP: Dr. Shoshana Ulrich MD Status:ADM IN Y Location: MS3 YC291-5 [place] Med Reconciliation Pharmacy Service has performed discharge [...] Signature (if applicable): Date CC: ~ Signed [facility] Work Phone: Consult note Author Harsha Kulkarni [facility] Note Date/Time March 07, 2025 6 :20pm [facility] Medical Records Department [address] [place] [address] Counseling Note - Pharmacy 03/07/251616 MR#: [id number] Acct: [id number] Name: DORIAN CRAMER Rep #:[id number] : 1935 89 From: Harsha mann PCP: Dr. Shoshana Ulrich MD Status:ADM IN Y Location: [place] [address] [place] Med Reconciliation Pharmacy Service has performed discharge medication reconciliation for this patient. The patient's discharge medication list was reviewed for discrepancies and discrepancies were resolved. Medications at Discharge Home Medications amlodipine 5 mg tablet 5 mg PO DAILY BP 07/02/22 oxybutynin chloride 10 mg tablet,extended release 24 hr 10 mg PO DAILY OAB 09/19/23 albuterol sulfate 90 mcg/actuation aerosol inhaler 2 puff inhalation Q4H PRN sob/wheezing 01/18/25 apixaban 5 mg tablet (Eliquis) 5 mg PO BID 02/12/25 acetaminophen 500 mg tablet 1,000 mg (2 x 500 mg) PO Q8 #0 tabs 03/07/25 bisacodyl 5 mg tablet,delayed release (Dulcolax (bisacodyl)) 5 mg PO QHS 2 days #2 tabs 03/07/25 food supplemt, lactose-reduced 0.08 gram-1.5 kcal/mL oral liquid (Ensure Plus High Protein) 120 ml PO 4X/DAY #0 mL 03/07/25 levofloxacin 250 mg tablet 250 mg PO DAILY@0600 #0 tabs 03/07/25 oxycodone 5 mg tablet 10 mg (2 x 5 mg) PO Q4H PRN PRN Pain Score 4-10 3 days #12tabs 03/07/25 polyethylene glycol 3350 17 gram/dose oral powder (Miralax) 17 g PO DAILY #119 grams 03/07/25 03/07/251616 <Electronically signed by Harsha Brown> Date _ Harsha Kulkarni Cosigner Signature (if applicable): Date CC: ~ Signed [facility] Work Phone: Discharge summary Author Rosemary Fernandez [facility] September 21, 2023 12:59pm Note Date/Time September 21, 2023 12:48p [facility] Medical Records Department [address] [place] [address] Discharge Summary 09/21/23 1245 MR#: [id number] Acct: [id number] Name: DORIAN CRAMER Rep #:[id number] : 1935 88 From: Rosemary Fernandez DO PCP: Dr. Shoshana Ulrich MD Status:ADM IN Location: [address] Providers Date of Admission: 09/19/23 Date of Discharge: 09/21/23 Primary Care Physician: Dr. Shoshana Ulrich MD Consultations 09/19/23 13:51 Consult: Gastroenterology Routine Consulting Provider: [facility] Reason for Consult: GI bleed EMERGENT [...] M who presented to the emergency department [facility] on 09/19/2023 with bright red blood per [...] 76.7 H, Lymph % (Auto) 11.7 L, Dickson % (Auto) 5.8, Eos % (Auto) 5.2 [...] Self Care Charges/Coding Visit Charges Inpatient E&M: 01099 Disch Hosp >30min 09/21/23 1259 <Electronically signed by Rosemary Fernandez DO> Cosigner Signature (if applicable): CC: Dr. Shoshana Ulrich MD; Dr. Rosemary Fernandez DO; Lionel Lee DO~ Signed [facility] Work Phone: Discharge summary Author Santana Angel [facility] Note Date/Time March 07, 2025 5 :23pm [facility] Medical Records Department [address] [place] [address] [facility] MR#: [id number] Acct: [id number] Name: DORIAN CRAMER Rep #:[id number] : 1935 89 From: Santana Angel DO PCP: Dr. Shoshana Ulrich MD Status:ADM IN Certification of patient admission REQUIRED AT TIME OF ADMISSION. I CERTIFY THAT [facility] ARE REQUIRED TO BE GIVEN ON AN IN-PATIENT BASIS BECAUSE OF THE ABOVE NAMED PATIENT'S NEED FOR [facility] CARE ON A CONTINUING BASIS FOR THE CONDITION(S) FOR WHICH HE/SHE WAS RECEIVING IN-PATIENT HOSPITAL SERVICES PRIOR TO HIS/HER TRANSFER TO [facility]. 03/07/25 1623<Electronically signed by Santana Angel DO> Diet Diet Order/Speech Therapy: INPATIENT Hospital Diet / Speech Therapy Order(s) 03/04/25 20:43 Diet: Regular - General Food consistency:: Regular Liquid Consistency:: Regular/Thin Routine Orders/Code Status Code Status: DNRCC-A (no intubation) DC O2, CPAP, BIPAP needs Home O2 Discharge instructions: No Therapies Weight Bearing: Full weight bearing Physical Therapy: Eval and Treat Occupational Therapy: Eval and Treat Problem/Diagnosis (1) Back pain: Status: Acute Code(s): M54.9 - Dorsalgia, unspecified Plan Acute on chronic lower back pain * Lumbar spine CT demonstrated spinal stimulator, diffuse disc space narrowing. There is asymmetric right sided foraminal stenosis suspected L3-L4. MRI from 03/01 showed spinal canal stenosis most advanced at L2-L3 and mild to moderate remaining levels. Additional multilevel moderate advanced neural foraminal stenosis * Patient has chronic lower back pain and follows with Dr. Castañeda, had some k ind of procedure 2 weeks ago that patient said was to puga the nerves but notes he has the same amount of pain, was taking the pain medication he was given but has run out of this, he also did not find the buprenorphine patch that he has been on for a long period of time helpful so he took this off 1 to 2 days ago and said he has noticed no difference * Given patient's history, exam, imaging does not seem that there is an acute need for intervention, will admit patient and schedule Tylenol with as needed pain medication and topical * Depending on mental status and tolerance could consider trial of a low-dose muscle relaxer as well but given age would try to avoid polypharmacy if possible * Given patient has not been using his buprenorphine patch and does not want this back on this was not reordered * Will consult PT/OT * Case management consult Constipation * administered dulcolax and miralax. * Patient was offered magnesium citrate yesterday but he declined requesting an enema. Did have some small bowel movements thereafter. Demanded to have an enema today. Will administer magnesium citrate today. * Patient complaining of severe abdominal pain today to the point where he wants to kill himself. Exam is inconsistent * Patient did have CT of his abdomen pelvis performed on the ninth of this month showed a nonobstructive right renal calculi, left renal cyst, colonic diverticulosis without diverticulitis, long sigmoid wall thickening possibly due to nonspecific colitis. Dense colonic stool suggesting constipation. * Pt received magnesium citrate and he subsequently had a large BM and was feeling better. Suicidal ideation * Ruled out * Patient met with social work and deemed not a suicide risk. * He was saying he wanted to kill himself, apparently to emphasize to staff the severity of his pain, not an attempt to kill himself. * No need for psychiatric placement. 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, appears patient is now back on Eliquis- Will continue medication * Hx COPD-Continue home inhalers-Incentive spirometer * Hypertension- Will hold home antihypertensive to allow room for pain control * Tobacco use-Advise cessation-Nicotine replacement available if desired, presently denying * Abnormal UA- Patient no symptoms consistent with urinary tract infection, there is leuk esterase and bacteria in urine with no nitrate and only 10-25 white cells, urine culture was sent, given no symptoms and patient afebrile with normal white count hesitant to start any empiric treatment as is suspect this is not a pathological infection- If patient were to develop symptoms, white count, fever, urine culture positive can start antibiotics * JASMIN- Patient reports he has CPAP but has not used it in many years DVT ppx: Not indicated patient on full dose Eliquis Disposition: eventually to SNF. Allergies/Procedures Done in Hospital Allergies tiotropium (From Spiriva with HandiHaler) Allergy (Unknown, Verified 02/21/25 18:11) unknown ibuprofen (From Motrin) Allergy (Verified 02/21/25 18:11) Swelling Procedures: None Type of Care/Length of Stay Estimated LOS: Convalescent Care Less Than 30 days Type of Care Needed: Skilled Rehab Potential: Fair Prognosis: Good Additional Orders/Day of Discharge Day of Discharge: 03/07/25 Discharge Plan Admission Admit Date/Time: 03/04/25 19:29 Primary Reason for Your Visit: debility Attending Provider: Santana Angel Primary Care Provider: Shoshana Ulrich Consulting Providers: Rylie Arreaga Discharge Orders/Prescriptions Prescriptions: New levofloxacin 250 mg Tablet 250 mg PO DAILY@0600 Qty: 0 0RF acetaminophen 500 mg Tablet 1,000 mg PO Q8 Qty: 0 0RF oxycodone 5 mg Tablet 10 mg PO Q4H PRN PRN (Reason: Pain Score 4-10) 3 Days Qty: 12 0RF Ensure Plus High Protein 0.08 gram-1.5 kcal/mL Liquid 120 ml PO 4X/DAY Qty: 0 0RF polyethylene glycol 3350 [Miralax] 17 gram/dose powder 17 g PO DAILY Qty: 119 0RF bisacodyl [Dulcolax (bisacodyl)] 5 mg tablet,delayed release (DR/EC) 5 mg PO QHS 2 Days Qty: 2 0RF Continued amlodipine 5 mg tablet 5 mg PO DAILY Eliquis 5 mg tablet 5 mg PO BID albuterol sulfate 90 mcg/actuation HFA aerosol inhaler 2 puff INHALATION Q4H PRN (Reason: sob/wheezing) Patient Comments: pt sais he does not use because it doesnt help oxybutynin chloride 10 mg tablet extended release 24hr 10 mg PO DAILY Discontinued Breztri Aerosphere 160-9-4.8 mcg/actuation HFA aerosol inhaler 2 inh inhalation BID Patient Comments: pt states he does not use because it doesnt help buprenorphine 10 mcg/hour patch weekly 1 patch topical QWEEK Referrals / Follow Up: Shoshana Ulrich MD [Primary Care Provider, Family Practice] - Within 2 Weeks Sai Crockett MD [Med Staff - Active Staff, Pain Management] - Within 2 Weeks Disposition Disposition (needs filled in before D/C Order can be placed): Longterm Facility 03/07/251622 <Electronically signed by Santana Angel DO> Cosigner Signature (if applicable): CC: Dr. Shoshana Ulrich MD; Dr. Rylie Arreaga MD ~ [facility] Work Phone: Discharge summary Author Santana Angel [facility] Note Date/Time March 07, 2025 5 :25pm [facility] Medical Records Department [address] [place] [address] Discharge Summary 03/07/25 1623 MR#: [id number] Acct: [id number] Name: DORIAN CRAMER Rep #:[id number] : 1935 89 From: Santana Angel DO PCP: Dr. Shoshana Ulrich MD Status:ADM IN Location: [place] [id number] Providers Date of Admission: 03/04/25 Primary Care Physician: Dr. Shoshana Ulrich MD Reason For Visit: INTRACTABLE BACK PAIN Diagnosis Discharge Diagnosis (1) Back pain: Status: Acute Code(s): M54.9 - Dorsalgia, unspecified Plan Acute on chronic lower back pain * Lumbar spine CT demonstrated spinal stimulator, diffuse disc space narrowing. There is asymmetric right sided foraminal stenosis suspected L3-L4. MRI from 03/01 showed spinal canal stenosis most advanced at L2-L3 and mild to moderate remaining levels. Additional multilevel moderate advanced neural foraminal stenosis * Patient has chronic lower back pain and follows with Dr. Castañeda, had some kind of procedure 2 weeks ago that patient said was to puga the nerves but notes he has the same amount of pain, was taking the pain medication he was given but has run out of this, he also did not find the buprenorphine patch that he has been on for a long period of time helpful so he took this off 1 to 2 days ago and said he has noticed no difference * Given patient's history, exam, imaging does not seem that there is an acute need for intervention, will admit patient and schedule Tylenol with as needed pain medication and topical * Depending on mental status and tolerance could consider trial of a low-dose muscle relaxer as well but given age would try to avoid polypharmacy if possible * Given patient has not been using his buprenorphine patch and does not want this back on this was not reordered * Will consult PT/OT * Case management consult Constipation * administered dulcolax and miralax. * Patient was offered magnesium citrate yesterday but he declined requesting an enema. Did have some small bowel movements thereafter. Demanded to have an enema today. Will administer magnesium citrate today. * Patient complaining of severe abdominal pain today to the point where he wants to kill himself. Exam is inconsistent * Patient did have CT of his abdomen pelvis performed on the ninth of this month showed a nonobstructive right renal calculi, left renal cyst, colonic diverticulosis without diverticulitis, long sigmoid wall thickening possibly due to nonspecific colitis. Dense colonic stool suggesting constipation. * Pt received magnesium citrate and he subsequently had a large BM and was feeling better. Suicidal ideation * Ruled out * Patient met with social work and deemed not a suicide risk. * He was saying he wanted to kill himself, apparently to emphasize to staff the severity of his pain, not an attempt to kill himself. * No need for psychiatric placement. 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, appears patient is now back on Eliquis- Will continue medication * Hx COPD-Continue home inhalers-Incentive spirometer * Hypertension- Will hold home antihypertensive to allow room for pain control * Tobacco use-Advise cessation-Nicotine replacement available if desired, presently denying * Abnormal UA- Patient no symptoms consistent with urinary tract infection, there is leuk esterase and bacteria in urine with no nitrate and only 10-25 white cells, urine culture was sent, given no symptoms and patient afebrile with normal white count hesitant to start any empiric treatment as is suspect this is not a pathological infection- If patient were to develop symptoms, white count, fever, urine culture positive can start antibiotics * JASMIN- Patient reports he has CPAP but has not used it in many years DVT ppx: Not indicated patient on full dose Eliquis Disposition: Discharged to [facility] Medications at Discharge Home Medications amlodipine 5 mg tablet 5 mg PO DAILY BP 07/02/22 oxybutynin chloride 10 mg tablet,extended release 24 hr 10 mg PO DAILY OAB 09/19/23 albuterol sulfate 90 mcg/actuation aerosol inhaler 2 puff inhalation Q4H PRN sob/wheezing 01/18/25 apixaban 5 mg tablet (Eliquis) 5 mg PO BID 02/12/25 acetaminophen 500 mg tablet 1,000 mg (2 x 500 mg) PO Q8 #0 tabs 03/07/25 bisacodyl 5 mg tablet,delayed release (Dulcolax (bisacodyl)) 5 mg PO QHS 2 days #2 tabs 03/07/25 food supplemt, lactose-reduced 0.08 gram-1.5 kcal/mL oral liquid (Ensure Plus High Protein) 120 ml PO 4X/DAY #0 mL 03/07/25 levofloxacin 250 mg tablet 250 mg PO DAILY@0600 #0 tabs 03/07/25 oxycodone 5 mg tablet 10 mg (2 x 5 mg) PO Q4H PRN PRN Pain Score 4-10 3 days #12tabs 03/07/25 polyethylene glycol 3350 17 gram/dose oral powder (Miralax) 17 g PO DAILY #119 grams 03/07/25 Hospital Course Operations None Procedures None Summary of Care Provided Hospital Course: Came in with intense mid back and abdominal pain. Patient abdominal pain was due to constipation and did have magnesium citrate and had a very large bowel movement and felt much better afterwards. Prior to that he was expressing that he wanted to kill himself because the pain was so severe but did not have any overt plan so did not require any further intervention other than meeting with social work. This statement was more of him specifying the severity of his painrather than actual suicidal ideation. Patient will be going to [facility] in stable condition. 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 D/C Instructions DC O2, CPAP, BIPAP Needs Home O2 Discharge instructions: No Meaningful Use Info Meaningful Use Meaningful Use Diagnoses (Choose all that apply): None applicable Discharge Plan Admission Admit Date/Time: 03/04/25 19:29 Primary Reason for Your Visit: debility Attending Provider: Santana Angel Primary Care Provider: Shoshana Ulrich Consulting Providers: Rylie Arreaga Discharge Orders/Prescriptions Prescriptions: New levofloxacin 250 mg Tablet 250 mg PO DAILY@0600 Qty: 0 0RF acetaminophen 500 mg Tablet 1,000 mg PO Q8 Qty: 0 0RF oxycodone 5 mg Tablet 10 mg PO Q4H PRN PRN (Reason: Pain Score 4-10) 3 Days Qty: 12 0RF Ensure Plus High Protein 0.08 gram-1.5 kcal/mL Liquid 120 ml PO 4X/DAY Qty: 0 0RF polyethylene glycol 3350 [Miralax] 17 gram/dose powder 17 g PO DAILY Qty: 119 0RF bisacodyl [Dulcolax (bisacodyl)] 5 mg tablet,delayed release (DR/EC) 5 mg PO QHS 2 Days Qty: 2 0RF Continued amlodipine 5 mg tablet 5 mg PO DAILY Eliquis 5 mg tablet 5 mg PO BID albuterol sulfate 90 mcg/actuation HFA aerosol inhaler 2 puff INHALATION Q4H PRN (Reason: sob/wheezing) Patient Comments: pt sais he does not use because it doesnt help oxybutynin chloride 10 mg tablet extended release 24hr 10 mg PO DAILY Discontinued Anita Calzada 160-9-4.8 mcg/actuation HFA aerosol inhaler 2 inh inhalation BID Patient Comments: pt states he does not use because it doesnt help buprenorphine 10 mcg/hour patch weekly 1 patch topical QWEEK Referrals / Follow Up: Shoshana Ulrich MD [Primary Care Provider, Family Practice] - Within 2 Weeks Sai Crockett MD [Med Staff - Active Staff, Pain Management] - Within 2 Weeks Disposition Disposition (needs filled in before D/C Order can be placed): Longterm Facility Charges/Coding Visit Charges Inpatient E&M: 17093 Disch Hosp 03/07/25 0455 <Electronically signed by Santana Angel DO> Cosigner Signature (if applicable): CC: Dr. Santana Angel DO; Dr. Shoshana Ulrich MD~ Signed [facility] Work Phone: Evaluation note* Diagnosis Onset Date [...] chronic , with ulcer and inflammation chronic [facility] Work Phone: Evaluation note* Diagnosis Onset Date [...] chronic , with ulcer and inflammation chronic [facility] Work Phone: Evaluation noteNo assessment information available [facility] Work Phone: Evaluation note* Diagnosis Onset Date Resolution Status Swelling of lower limb chron ic Tobacco abuse chronic [facility] Work Phone: Evaluation note* Diagnosis Onset Date Resolution Status BRBPR (bright red blood per rectum) acute GIB (gastrointestinal bleeding) acute 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 Continue to use your inhaler as previously directed, you can use 1 to 2 puffs every 4-6 hours as needed for shortness of breath. Return with increasing shortness of breath, new or worsening symptoms.[facility] Work Phone: Hospital Discharge instructionsAdditional Instructions You may need to hold your Eliquis for the next few days. Drink plenty of oral fluids. Antibiotics for a bladder infection. Return with increased bleeding, fever, new or worsening symptoms.[facility] Work Phone: Progress note Author Blas Arellano [facility] Note Date/Time February 12, 2025 11:09am [facility] [address] [place] [address] OFFICE VISIT Date of Service: 02/12/25 MR#: [id number] Acct: [id number] Name: DORIAN CRAMER Rep #: [id number] : 1935 Provider: Dr. 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 Shoshana Ulrich MD ~ [facility] Work Phone: Progress note Author Santana Angel [facility] Note Date/Time March 05, 2025 2 :04pm [facility] Medical Records Department [address] [place] [address] Progress Note - Hospitalist 03/05/25814 MR#: [id number] Acct: [id number] Name: DORIAN CRAMER Rep #:[id number] : 1935 89 From: Santana Angel DO PCP: Dr. Shoshana Ulrich MD Status:ADM IN Location: [id number] Reason for Visit Chief Complaint: back pain Subjective Subjective back pain improved. abdominal distention. no BM in several days. Objective Data Objective Data Vital Signs: Vital Signs Temp Pulse Resp BP Pulse Ox O2 Del Method O2 Flow Rate 36.8 C 69 16 98/63 93 Nasal Cannula 2 03/05/25 05:45 03/05/25 06:55 03/05/25 06:55 03/05/25 05:45 03/05/25 06:55 03/05/25 06:55 03/05/25 06:55 Oxygen Flow Rate (L/min) 2 Oxygen Delivery Method Nasal Cannula Weight: 61.1 kg Body Mass Index (BMI) 22.4 Intake & Output: Intake and Output for Last 24 Hours 03/03/25 03/04/25 03/05/25 23:59 23:59 23:59 Output Total 625 / 625 Balance -625 / -625 Lab / Micro Data 03/05/25 05:42 03/05/25 05:42 Labs: Laboratory Results - last 24 hr 03/04/25 16:35: WBC 6.8, RBC 3.20 L, Hgb 10.5 L, Hct 31.4 L, MCV 98.1 H, MCH 32.8 H, MCHC 33.4, RDW Std Deviation 67.8 H, RDW Coeff of Beth 18.8 H, Plt Count 248, MPV 10.6, Immature Gran % (Auto) 0.900, Neut % (Auto) 85.6 H, Lymph % (Auto) 7.4 L, Dickson % (Auto) 5.2, Eos % (Auto) 0.6, Baso % (Auto) 0.3, Absolute Neuts (auto) 5.8, Absolute Lymphs (auto) 0.50 L, Nucleated RBC % 0, DifferentialComment SCANNED, Platelet Estimate ADEQUATE, Polychromasia 1+, Hypochromasia 1+,Anisocytosis 2+, Sodium 137, Potassium 4.4, Chloride 98, Carbon Dioxide 26.5, Anion Gap 12, BUN 36 H, Creatinine 1.24 H, Estim Creat Clear Calc 36.51 L, Est GFR (MDRD) Non-Af 56 L, BUN/Creatinine Ratio 29.0 H, Glucose 102 H, Calcium 8.9 03/04/25 18:05: Urine Color Yellow, Urine Clarity Cloudy, Urine pH 6.0, Ur Specific Menard 1.015, Urine Protein 30 H, Urine Glucose (UA) Normal, Urine Ketones 5 H, Urine Occult Blood 250 H, Urine Nitrite Negative, Urine Bilirubin Negative, Urine Urobilinogen Normal, Ur Leukocyte Esterase 100 H, Urine RBC 50-100 SEEN, Urine WBC 10-25 SEEN, Ur Squamous Epith Cells 0-5 SEEN, Amorphous Sediment 2+, Urine Bacteria 1+, Urine Mucus 0 SEEN 03/05/25 05:42: WBC 5.9, RBC 3.06 L, Hgb 10.2 L, Hct 31.0 L, MCV 101.3 H, MCH 33.3 H, MCHC 32.9, RDW Std Deviation 71.3 H, RDW Coeff of Beth 19.1 H, Plt Count 228, MPV 10.4, Immature Gran % (Auto) 0.700, Neut % (Auto) 85.9 H, Lymph % (Auto) 6.2 L, Dickson % (Auto) 5.1, Eos % (Auto) 1.9, Baso % (Auto) 0.2, Absolute Neuts (auto) 5.1, Absolute Lymphs (auto) 0.37 L, Nucleated RBC % 0, Sodium 136, Potassium 4.1, Chloride 101, Carbon Dioxide 26.4, Anion Gap 9, BUN 33 H, Creatinine 1.23 H, Estim Creat Clear Calc 36.57 L, Est GFR (MDRD) Non-Af 57 L, BUN/Creatinine Ratio 27.2 H, Glucose 74, Calcium 7.9 Radiography Diagnostic Testing: Radiology Impression Lumbar Spine CT 03/04/25 17:30 IMPRESSION: Diffuse disc space narrowing. No compression deformity. No subluxation. Please see prior MRI for further details regarding spinal stenosis and nerve root impingement. Sagittal soft tissue windows were not supplied on the current exam. This limits evaluation of the spinal canal as well as the neural foramina. There is asymmetric right-sided foraminal stenosis suspected at L3-4. Reading Location: [facility] Physical Exam Const alert and no apparent distress Constitutional Narrative: in bed. non-toxic. HEENT head/scalp atraumatic and moist oral mucous membranes Resp normal respiratory effort GI normal to inspection, nondistended, normoactive bowel sounds, soft to palpation,non-tender and non-distended Assessment & Plan Assessment/Plan (1) Back pain: PLAN: Plan Acute on chronic lower back pain * Lumbar spine CT demonstrated spinal stimulator, diffuse disc space narrowing. There is asymmetric right sided foraminal stenosis suspected L3-L4. MRI from 03/01 showed spinal canal stenosis most advanced at L2-L3 and mild to moderate remaining levels. Additional multilevel moderate advanced neural foraminal stenosis * Patient has chronic lower back pain and follows with Dr. Castañeda, had some kind of procedure 2 weeks ago that patient said was to puga the nerves but notes he has the same amount of pain, was taking the pain medication he was given but has run out of this, he also did not find the buprenorphine patch that he has been on for a long period of time helpful so he took this off 1 to 2 days ago and said he has noticed no difference * Given patient's history, exam, imaging does not seem that there is an acute need for intervention, will admit patient and schedule Tylenol with as needed pain medication and topical * Depending on mental status and tolerance could consider trial of a low-dose muscle relaxer as well but given age would try to avoid polypharmacy if possible * Given patient has not been using his buprenorphine patch and does not want this back on this was not reordered * Will consult PT/OT * Case management consult Constipation * administered dulcolax and miralax. * monitor. consider Mag Citrate if no improvement. Chronic conditions: * alcohol use Patient reports drinking 2 Manhattan's before bed every night, denies any history of withdrawal symptoms will will place patient on [facility] in an abundance of caution given age and comorbidities- Will start thiamine and folate * DVT- History of DVT, 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, appears patient is now back on Eliquis- Will continue medication * Hx COPD-Continue home inhalers-Incentive spirometer * Hypertension- Will hold home antihypertensive to allow room for pain control * Tobacco use-Advise cessation-Nicotine replacement available if desired, presently denying * Abnormal UA- Patient no symptoms consistent with urinary tract infection, there is leuk esterase and bacteria in urine with no nitrate and only 10-25 white cells, urine culture was sent, given no symptoms and patient afebrile with normal white count hesitant to start any empiric treatment as is suspect this is not a pathological infection- If patient were to develop symptoms, white count, fever, urine culture positive can start antibiotics * JASMIN- Patient reports he has CPAP but has not used it in many years DVT ppx: Not indicated patient on full dose Eliquis Charges/Coding Visit Charges Inpatient E&M: 49844 Subs Hosp L2 03/05/25 1307 <Electronically signed by Santana Angel DO> Cosigner Signature (if applicable): CC: ~ Signed [facility] Work Phone: Progress note Author Santana Angel [facility] Note Date/Time March 06, 2025 3 :10pm [facility] Medical Records Department [address] [place] [id number] Progress Note - Hospitalist 03/06/25 0751 MR#: [id number] Acct: [id number] Name: DORIAN CRAMER Rep #:[id number] : 1935 89 From: Santana Angel DO PCP: Dr. Shoshana Ulrich MD Status:ADM IN Location: [address] Reason for Visit Chief Complaint: back pain Subjective Subjective Settings having severe pain to the point that he wants to kill himself. Asked him if he has a plan for killing himself that he indicates towards the bedside table where his future is and asked is there a knife on it? Objective Data Objective Data Vital Signs: Vital Signs Temp Pulse Resp BP Pulse Ox O2 Del Method O2 Flow Rate 36.8 C 76 16 102/59 L 95 Nasal Cannula 2 03/06/25 05:33 03/06/25 05:33 03/06/25 05:33 03/06/25 05:33 03/06/25 05:33 03/06/25 05:33 03/06/25 05:33 Oxygen Flow Rate (L/min) 2 Oxygen Delivery Method Nasal Cannula Weight: 61.1 kg Body Mass Index (BMI) 22.4 Intake & Output: Intake and Output for Last 24 Hours 03/04/25 03/05/25 03/06/25 23:59 23:59 23:59 Intake Total 80 / 80 Output Total 975 / 975 850 / 850 Balance -895 / -895 -850 / -850 Lab / Micro Data 03/05/25 05:42 03/05/25 05:42 Physical Exam Const Constitutional Narrative: Initial walk in the room, patient has his blanket over his head and then once myself and the nurse meter presents known, he began yelling out in pain. And then when patient was told that we are going to put him on suicide precautions he became very quiet and was not yelling out in any distress. He at that point then stopped having any eye contact with me or anyone else in the room. HEENT head/scalp atraumatic and moist oral mucous membranes Resp normal respiratory effort, no retractions, no use of accessory muscles and clearto auscultation bilaterally Cardio regular rate, regular rhythm, S1 normal heart sound and S2 normal heart sound GI GI Narrative: Claims of severe abdominal pain with any palpation throughout his abdomen but when distracted was not experiencing that pain. Patient was yelling in pain even without any palpation as well but when he was more calm, he was not yellingout in pain and did appear to be comfortable. Neuro Sensorium / Orientation: awake and alert Assessment & Plan Assessment/Plan (1) Back pain: PLAN: Plan Acute on chronic lower back pain * Lumbar spine CT demonstrated spinal stimulator, diffuse disc space narrowing. There is asymmetric right sided foraminal stenosis suspected L3-L4. MRI from 03/01 showed spinal canal stenosis most advanced at L2-L3 and mild to moderate remaining levels. Additional multilevel moderate advanced neural foraminal stenosis * Patient has chronic lower back pain and follows with Dr. Castañeda, had some kind of procedure 2 weeks ago that patient said was to puga the nerves but notes he has the same amount of pain, was taking the pain medication he was given but has run out of this, he also did not find the buprenorphine patch that he has been on for a long period of time helpful so he took this off 1 to 2 days ago and said he has noticed no difference * Given patient's history, exam, imaging does not seem that there is an acute need for intervention, will admit patient and schedule Tylenol with as needed pain medication and topical * Depending on mental status and tolerance could consider trial of a low-dose muscle relaxer as well but given age would try to avoid polypharmacy if possible * Given patient has not been using his buprenorphine patch and does not want this back on this was not reordered * Will consult PT/OT * Case management consult Constipation * administered dulcolax and miralax. * Patient was offered magnesium citrate yesterday but he declined requesting an enema. Did have some small bowel movements thereafter. Demanded to have an enema today. Will administer magnesium citrate today. * Patient complaining of severe abdominal pain today to the point where he wants to kill himself. Exam is inconsistent * Patient did have CT of his abdomen pelvis performed on the ninth of this month showed a nonobstructive right renal calculi, left renal cyst, colonic diverticulosis without diverticulitis, long sigmoid wall thickening possibly due to nonspecific colitis. Dense colonic stool suggesting constipation. * Pt received magnesium citrate and he subsequently had a large BM and was feeling better. Suicidal ideation * Patient has been consistently saying to the nurse as well as to me several times that he wants to kill himself because his pain is so severe. I initially felt that this was just more of him try to get a point across that he is having severe abdominal pain, however, when I tried to establish if he had a plan or not, he asked if there was a knife on his bedside table. I am still not convinced that he is truly suicidal but given his persistent statements home and him having the opportunity to retract those statements but declining to do so. He will be placed on suicide precautions. Patient will have bedside sitter and will have crisis evaluate him. If crisis team does determined that he is not a risk to himself or others then we can DC the suicide precautions and a sitter. * He met with social work and endorsed that he said that, not as a threat against himself, but rather emphasizing the severity of his pain. Suicide precautions lifted. 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, appears patient is now back on Eliquis- Will continue medication * Hx COPD-Continue home inhalers-Incentive spirometer * Hypertension- Will hold home antihypertensive to allow room for pain control * Tobacco use-Advise cessation-Nicotine replacement available if desired, presently denying * Abnormal UA- Patient no symptoms consistent with urinary tract infection, there is leuk esterase and bacteria in urine with no nitrate and only 10-25 white cells, urine culture was sent, given no symptoms and patient afebrile with normal white count hesitant to start any empiric treatment as is suspect this is not a pathological infection- If patient were to develop symptoms, white count, fever, urine culture positive can start antibiotics * JASMIN- Patient reports he has CPAP but has not used it in many years DVT ppx: Not indicated patient on full dose Eliquis Charges/Coding Visit Charges Inpatient E&M: 06918 Subs Hosp L2 03/06/25 1410 <Electronically signed by Santana Angel DO> Cosigner Signature (if applicable): CC: ~ Signed [facility] Work Phone: Progress note Author Santana Angel [facility] Note Date/Time March 07, 2025 1 :58pm [facility] Medical Records Department [address] [place] [id number] Progress Note - Hospitalist 03/07/25 0815 MR#: [id number] Acct: [id number] Name: DORIAN CRAMER Rep #:[id number] : 1935 89 From: Santana Angel DO PCP: Dr. Shoshana Ulrich MD Status:ADM [id number] Reason for Visit Chief Complaint: back pain Subjective Subjective Had large BM yesterday. Feeling better. Objective Data Objective Data Vital Signs: Vital Signs Temp Pulse Resp BP Pulse Ox O2 Del Method O2 Flow Rate 36.6 C 66 16 96/59 L 94 Nasal Cannula 4 03/07/25 07:45 03/07/25 07:45 03/07/25 07:45 03/07/25 07:45 03/07/25 07:45 03/07/25 07:49 03/07/25 07:49 Oxygen Flow Rate (L/min) 4 Oxygen Delivery Method Nasal Cannula Weight: 61.1 kg Body Mass Index (BMI) 22.4 Intake & Output: Intake and Output for Last 24 Hours 03/05/25 03/06/25 03/07/25 23:59 23:59 23:59 Intake Total 80 / 80 150 / 150 Output Total 975 / 975 1450 / 1450 Balance -895 / -895 -1300 / -1300 Lab / Micro Data 03/05/25 05:42 03/05/25 05:42 Micro: Microbiology 03/04/25 18:05 Urine, Catheterized Urine Culture - Preliminary GNR 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 up in chair. HEENT head/scalp atraumatic and moist oral mucous membranes Cardio regular rate and regular rhythm Assessment & Plan Assessment/Plan (1) Back pain: PLAN: Plan Acute on chronic lower back pain * Lumbar spine CT demonstrated spinal stimulator, diffuse disc space narrowing. There is asymmetric right sided foraminal stenosis suspected L3-L4. MRI from 03/01 showed spinal canal stenosis most advanced at L2-L3 and mild to moderate remaining levels. Additional multilevel moderate advanced neural foraminal stenosis * Patient has chronic lower back pain and follows with Dr. Castañeda, had some kind of procedure 2 weeks ago that patient said was to puga the nerves but notes he has the same amount of pain, was taking the pain medication he was given but has run out of this, he also did not find the buprenorphine patch that he has been on for a long period of time helpful so he took this off 1 to 2 days ago and said he has noticed no difference * Given patient's history, exam, imaging does not seem that there is an acute need for intervention, will admit patient and schedule Tylenol with as needed pain medication and topical * Depending on mental status and tolerance could consider trial of a low-dose muscle relaxer as well but given age would try to avoid polypharmacy if possible * Given patient has not been using his buprenorphine patch and does not want this back on this was not reordered * Will consult PT/OT * Case management consult Constipation * administered dulcolax and miralax. * Patient was offered magnesium citrate yesterday but he declined requesting an enema. Did have some small bowel movements thereafter. Demanded to have an enema today. Will administer magnesium citrate today. * Patient complaining of severe abdominal pain today to the point where he wants to kill himself. Exam is inconsistent * Patient did have CT of his abdomen pelvis performed on the ninth of this month showed a nonobstructive right renal calculi, left renal cyst, colonic diverticulosis without diverticulitis, long sigmoid wall thickening possibly due to nonspecific colitis. Dense colonic stool suggesting constipation. * Pt received magnesium citrate and he subsequently had a large BM and was feeling better. Suicidal ideation * Ruled out * Patient met with social work and deemed not a suicide risk. * He was saying he wanted to kill himself, apparently to emphasize to staff the severity of his pain, not an attempt to kill himself. * No need for psychiatric placement. 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, appears patient is now back on Eliquis- Will continue medication * Hx COPD-Continue home inhalers-Incentive spirometer * Hypertension- Will hold home antihypertensive to allow room for pain control * Tobacco use-Advise cessation-Nicotine replacement available if desired, presently denying * Abnormal UA- Patient no symptoms consistent with urinary tract infection, there is leuk esterase and bacteria in urine with no nitrate and only 10-25 white cells, urine culture was sent, given no symptoms and patient afebrile with normal white count hesitant to start any empiric treatment as is suspect this is not a pathological infection- If patient were to develop symptoms, white count, fever, urine culture positive can start antibiotics * JASMIN- Patient reports he has CPAP but has not used it in many years DVT ppx: Not indicated patient on full dose Eliquis Disposition: eventually to SNF. 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 copd February 19, 2025 8:25am Chief Complaint Admit Date Post hospitalization November 21, 2024 11:2 4am RIGHT LEG SWELLING December 19, 2024 2:0 0pm 2 wounds on R arm and hand January 09, 2025 9:47am Cardiac Clearance/ABN EKG ([facility]) February 12, 2025 10:28am rapid breathing. copd February 19, 2025 8:25am urinating blood February 21, 2025 6: 09pm Postlaminectomy syndrome March 01, 2 025 4:15pm INTRACTABLE BACK PAIN March 04, 2025 7:29pm INTRACTABLE BACK PAIN March 05, 2025 8:15am INTRACTABLE BACK PAIN March 06, 2025 7:51am INTRACTABLE BACK PAIN March 07, 2025 8:15am Reason for Visit Admit Date DVT (deep venous thrombosis) November 21 11:24am Rectus sheath hematoma November 21, 2024 [...] Preoperative cardiovascular examination February 12, 2025 10:28am Back pain March 04, 2025 7 :29pm History of back surgery March 04 7:29pm Hx of degenerative disc disease March 04, 2025 7:29pm Intractable back pain March 04, 2025 7:29pm Chronic pain March 04, 2025 7 :29pm Chief Complaint Admit Date Post hospitalization November 21, 2024 11:2 4am RIGHT LEG SWELLING December 19, 2024 2:0 0pm 2 wounds on R arm and hand January 09, 2025 9:47am Cardiac Clearance/ABN EKG ([facility]) February 12, 2025 10:28am rapid breathing. copd February 19, 2025 8:25am urinating blood February 21, 2025 6: 09pm Postlaminectomy syndrome March 01 4:15pm INTRACTABLE BACK PAIN March 04, 2025 7:29pm INTRACTABLE BACK PAIN March 05, 2025 8:15am INTRACTABLE BACK PAIN March 06, 2025 7:51am INTRACTABLE BACK PAIN March 07, 2025 8:15am LAB WORK March 08, 2025 5 :00am LAB WORK March 13, 2025 5 :00am Reason for Visit Admit Date DVT (deep venous thrombosis) November 21 11:24am Rectus sheath hematoma November 21, 2024 [...] Preoperative cardiovascular examination February 12, 2025 10:28am Back pain March 04, 2025 7 :29pm Chronic pain March 04, 2025 7 :29pm History of back surgery March 04 7:29pm Hx of degenerative disc disease March 04, 2025 7:29pm Intractable back pain March 04, 2025 7:29pm Family History No Family History Records Found [...] Yes September 11, 2020 2:04pm Power of Graphics Intern Yes September 11 2:04pm Advance Directive Response Recorded Date/ Time Advance Directives Yes June 02, 2016 3:11pm Living Will No September 08, 2021 10:14am Power of Graphics Intern No September 08 10:14am Advance Directive Response Recorded Date/ Time Advance Directives Yes June 02, 2016 2:11pm Living Will No April 09 1:41pm Power of Graphics Intern No April 09, 2022 1:41pm Advance Directive Response Recorded Date/ Time Advance Directives Yes June 02, 2016 3:11pm Living Will No April 09, 2:41pm Power of Graphics Intern No April 09, 2022 2:41pm Advance Directive Response Recorded Date/ Time Advance Directives Yes June 02, 2016 3:11pm Living Will Yes October 27, 2022 10:19am Power of Graphics Intern Yes October 27 10:19am Advance Directive Response Recorded Date/ Time Name of Medical Power of Graphics Intern . November 03, 2022 2:22pm Advance Directives Yes June 02, 2016 3:11pm Living Will Yes November 03, 2022 2:22pm Power of Graphics Intern Yes November 03 2:22pm Advance Directive Response Recorded Date/ Time Advance Directives Yes June 02, 2016 2:11pm Living Will Yes November 03, 2022 1:22pm Power of Graphics Intern Yes November 03 1:22pm Advance Directive Response Recorded Date/ Time Name of Medical Power of Graphics Intern July 21, 2023 8:23am Advance Directives Yes June 02, 2016 2:11pm Living Will Yes July 21, 2023 8:23am Power of Graphics Intern Yes July 20 8:23am Advance Directive Response Recorded Date/ Time Name of Medical Power of Graphics Intern July 21, 2023 9:23am Advance Directives Yes June 02, 2016 3:11pm Living Will Yes July 21, 2023 9:23am Power of Graphics Intern Yes July 20 9:23am Advance Directive Response Recorded Date/ Time Advance Directives Yes June 02, 2016 3:11pm Living Will No September 19, 2023 12 :09pm Power of Graphics Intern No September 19, 2023 12:09pm Name of Medical Power of Graphics Intern July 21, 2023 9:23am Advance Directive Response Recorded Date/ Time Advance Directives Yes June 02, 2016 3:11pm Living Will No September 19, 2023 2: 13pm Power of Graphics Intern No September 19, 2023 2:13pm Name of Medical Power of Graphics Intern July 21, 2023 9:23am Advance Directive Response Recorded Date/ Time Advance Directives Yes June 22, 2024 9:55am Living Will Yes May 26 1:00pm Do you have a Healthcare Power of Graphics Intern? Yes May 26, 2024 1:00pm Name of Medical Power of Graphics Intern May 26, 2024 1:00pm Living Will No June 20 8:30pm Do you have a Healthcare Power of Graphics Intern? No June 20, 2024 8:30pm Advance Directive Response Recorded Date/ Time Do you have a Healthcare Power of Graphics Intern? Yes November 02, 2024 3:46pm Name of Medical Power of Graphics Intern STEP-SON November 02, 2024 3:46pm Advance Directives Yes June 22, 2024 9:55am Advance Directive Response Recorded Date/ Time Do you have a Healthcare Power of Graphics Intern? Yes November 02, 2024 7:55pm Name of Medical Power of Graphics Intern STEP-SON November 02, 2024 3:46pm Advance Directives Yes June 22, 2024 9:55am Advance Directive Response Recorded Date/ Time Do you have a Healthcare Power of Graphics Intern? Yes November 02, 2024 7:55pm Name of Medical Power of Graphics Intern STEP-SON November 02, 2024 3:46pm Do you have a Healthcare Power of Graphics Intern? Yes February 19, 2025 8:41am Advance Directives Yes June 22, 2024 9:55am Advance Directive Response Recorded Date/ Time Do you have a Healthcare Pow er of Graphics Intern? Yes February 19, 2025 8:41am Do you have a Healthcare Pow er of Graphics Intern? No February 21, 2025 6:14pm Do you have a Healthcare Pow er of Graphics Intern? Yes March 04, 2025 8:45pm Name of Medical Power of Graphics Intern Ac RAPP March 04, 2025 8:45pm Advance Directives Yes March 04, 2025 4:26pm Advance Directive Response Recorded Date/ Time Do you have a Healthcare Pow er of Graphics Intern? Yes February 19, 2025 7:41am Do you have a Healthcare Pow er of Graphics Intern? No February 21, 2025 5:14pm Do you have a Healthcare Pow er of Graphics Intern? Yes March 04, 2025 7:45pm Name of Medical Power of Graphics Intern Ac RAPP March 04, 2025 7:45pm Advance Directives Yes March 04, 2025 3:26pm Summary Purpose Additional Source Comments Goals (unrecognized [...] section and content) DATE CREATED AUTHOR 09/15/2021 [facility] ([place] DATE CREATED AUTHOR AUTHOR'S ORGANIZ ATION 12/16/2024 [facility] DATE CREATED AUTHOR AUTHOR'S ORGANIZ ATION 03/28/2025 [facility] Care Teams (unrecognized sec tion and content) [...] Santana Sandoval DO Attending Provider, [facility] Active Team Status: Inactive Member Role Status [...] June 20, 2024 Dr. Marco Antonio Garay , DO Emergency Provider Activ e Start: June [...] November 04, 2024 Dr. Raghav Serrano , Other Provider Active Start: November 04, 2024 [...] 05, 2024 Dr. Rand Rollins , DO Referring Provider Active Start: November 05, [...] November 05, 2024 Dr. Raghav Serrano , Admit Provider Active Start: November 05, 2024 [...] Start: November 06, 2024 Dr. Rand Rollins DO Emergency Provider Active Start: November 06, 2024 Dr. Raghav Serrano , DO Admit Provider Active Start: November 06, 2024 Dr. Raghav Serrano DO Other Provider Active Start: November 06, 2024 Dr. Daniel Neal , Attending Provider Active Start: November 06, 2024 [...] November 12, 2024 End: November 12, 2024 Alyce Gibson NP-C Attending Provider Active St art: November 12, 2024 End: November 12, 2024 Track Fitter Relationship Specialty Start Date End Date Jose Figueroa MD Referring Neurology 07/24/24 Team Status: Active Member Role/Relationship Status Dates Dr. Shoshana Ulrich MD Primary Care Provider Active Start: November 04, 2024 Dr. Santana Mason MD Attending Provider Active S tart: November 04, 2024 Dr. Daniel Neal DO Referring Provider Active Start: November 04, 2024 Team Status: Inactive Member Role/Relationship Status Dates Dr. Shohsana Ulrich MD Primary Care Provider Active Start: November 21, 2024 End: November 21, 2024 Dr. Shoshana Ulrich MD Referring Provider Active Start: November 21, 2024 End: November 21, 2024 AARON Gonzales Attending Provider Active Star t: November 21, 2024 End: November 21, 2024 Track Fitter Relationship Specialty Start Date End Date Jose Figueroa MD Referring Neurology 07/24/24 Team Status: Active Member Role/Relationship Status Dates Dr. Shoshaan Ulrich MD Primary Care Provider Active Start: [...] Start: November 06, 2024 Dr. Rand Rollins DO Emergency Provider Active Start: November 06, 2024 Dr. Raghav Serrano DO Admit Provider Active Start: November 06, 2024 Dr. Raghav Serrano , Other Provider Active Start: November 06, 2024 [...] January 09, 2025 Eduardo WALKER, PA Attending Provider Active Start: January 09, 2025 End: January 09, 2025 Team Status: Active Member Role/Relationship Status Dates Dr. Shoshana Ulrich MD Primary care physician Active Team Status: Active Member Role/Relationship Status Dates Dr. Shoshana Ulrich MD Primary care physician Active Start: November 02, 2024 Dr. Rand Rollins DO Emergency Departm [...] November 04, 2024 Dr. Daniel Neal , Referring Provider Active Start: November 04, 2024 Team Status: Active Member Role/Relationship Status Dates Dr. Shoshana Ulrich MD Primary care physician Active Start: November 04, 2024 Dr. Rand Rollins , DO Emergency Departm ent Physician Active Start: November 04, 2024 Dr. Raghav Serrano , Admitting physician Active Start: November 04 Dr. Raghav Serrano , Nurse Practitioner Active Start: November 04 Dr. [...] Start: November 05 Dr. Raghav Serrano , DO Nurse Practitioner Active Start: November 05 Dr. Daniel Tereletsky , DO Nurse Practitioner Active Start: November [...] November 05, 2024 Dr. Raghav Serrano DO Admitting physician Active Start: November 05 Dr. Raghav Serrano DO Nurse Practitioner Active Start: November 05 Dr. Daniel Neal DO Attending physician Active Start: November 05, 2024 Dr. Daniel Neal DO Nurse Practitioner Active Start: November 05, [...] Serrano DO Admitting physician Active Start: November 06 Dr. Raghav Serrano DO Nurse Practitioner Active Start: November 06 Dr. Daniel Neal DO Attending physician Active Start: November 06, 2024 Dr. Daniel Neal DO Nurse Practitioner Active Start: November 06, [...] January 09, 2025 Eduardo WALKER PA Attending physician Active Start: January 09, [...] 2025 End: February 12, 2025 Dr. Blas Arelalno MD Attending physician Active Start: February 12, 2025 End: February 12, 2025 Team Status: Inactive Member Role/Relationship Status Dates Dr. Shoshana Ulrich MD Primary care physician Active Start: February 19, 2025 End: February 19, 2025 Chito Werner MD Emergency Department Physician Activ e Start: February 19, 2025 End: February 19, 2025 Team Status: Inactive Member Role/Relationship Status [...] January 09, 2025 Eduardo WALKER PA Attending physician Active Start: January 09, [...] End: February 19, 2025 Chito Werner MD Attending physician Active Sta rt: February 19, 2025 End: February 19, 2025 Chito Werner MD Emergency Department Physician Activ e Start: February 19, 2025 End: February 19, 2025 Team Status: Inactive Member Role/Relationship Status Dates Dr. Shoshana Ulrich MD Primary care physician Active Start: February 21, 2025 End: February 21, 2025 Chito Werner MD Attending physician Active Sta rt: February 21, 2025 End: February 21, 2025 Chito Werner MD Emergency Department Physician Activ e Start: February 21, 2025 End: February 21, 2025 Team Status: Active Member Role/Relationship Status Dates Dr. Shoshana Ulrich MD Primary care physician Active Start: March 01, 2025 Dr. Sai Crockett MD Attending physician Active Start: March 01, 2025 Dr. Sai Crockett MD Referring Provider Active Start: March 01, 2025 Team Status: Inactive Member Role/Relationship Status Dates Dr. Shoshana Ulrich MD Primary care physician Active Start: March 04, 2025 End: March 07, 2025 Dr. Gera Beard MD Emergency Department Physician Ac tive Start: March 04, 2025 End: March 07, 2025 Dr. Rylie Arreaga MD Admitting physician Active Start: March 04, 2025 End: March 07, 2025 Dr. Rylie Arreaga MD Nurse Practitioner Active Start: March 04, 2025 End: March 07, 2025 Dr. Santana Angel DO Attending physician Active Start: March 04, 2025 End: March 07, 2025 Team Status: Active Member Role/Relationship Status Dates Dr. Shoshana Ulrich MD Primary care physician Active Start: March 05, 2025 Dr. Gera Beard MD Emergency Department Physician Ac tive Start: March 05, 2025 Dr. Rylie Arreaga MD Admitting physician Active Start: March 05, 2025 Dr. Rylie Arreaga MD Nurse Practitioner Active Start: March 05, 2025 Dr. Santana Angel DO Attending physician Active Start: March 05, 2025 Dr. Santana Angel DO Nurse Practitioner Active Start: March 05, 2025 Team Status: Active Member Role/Relationship Status Dates Dr. Shoshana Ulrich MD Primary care physician Active Start: March 06, 2025 Dr. Gera Beard MD Emergency Department Physician Ac tive Start: March 06, 2025 Dr. Rylie Arreaga MD Admitting physician Active Start: March 06, 2025 Dr. Rylie Arreaga MD Nurse Practitioner Active Start: March 06, 2025 Dr. Santana Angel DO Attending physician Active Start: March 06, 2025 Dr. Santana Angel DO Nurse Practitioner Active Start: March 06, 2025 Team Status: Active Member Role/Relationship Status Dates Dr. Shoshana Ulrich MD Primary care physician Active Start: March 07, 2025 Dr. Gera Beard MD Emergency Department Physician Ac tive Start: March 07, 2025 Dr. Rylie Arreaga MD Admitting physician Active Start: March 07, 2025 Dr. Rylie Arreaga MD Nurse Practitioner Active Start: March 07, 2025 Dr. Santana Angel DO Attending physician Active Start: March 07, 2025 Dr. Santana Angel DO Nurse Practitioner Active Start: March 07, 2025 Team Status: Active Member Role/Relationship Status Dates Dr. Shoshana Ulrich MD Primary care physician Active Start: March 08, 2025 Wilfredo CANTU MD Attending physician Active Start: March 08, 2025 Team Status: Inactive Member Role/Relationship Status [...] End: February 19, 2025 Chito Werner MD Attending physician Active Sta rt: February 19, 2025 End: February 19, 2025 Chito Werner MD Emergency Department Physician Activ e Start: February 19, 2025 End: February 19, 2025 Team Status: Inactive Member Role/Relationship Status Dates Dr. Shoshana Ulrich MD Primary care physician Active Start: February 21, 2025 End: February 21, 2025 Chito Werner MD Attending physician Active Sta rt: February 21, 2025 End: February 21, 2025 Chito Werner MD Emergency Department Physician Activ e Start: February 21, 2025 End: February 21, 2025 Team Status: Inactive Member Role/Relationship Status Dates Dr. Shoshana Ulrich MD Primary care physician Active Start: March 01, 2025 End: March 01, 2025 Dr. Sai Crockett MD Attending physician Active Start: March 01, 2025 End: March 01, 2025 Dr. Sai Crockett MD Referring Provider Active Start: March 01, 2025 End: March 01, 2025 Team Status: Inactive Member Role/Relationship Status Dates Dr. Shoshana Ulrich MD Primary care physician Active Start: March 04, 2025 End: March 07, 2025 Dr. Gera Beard MD Emergency Department Physician Ac tive Start: March 04, 2025 End: March 07, 2025 Dr. Rylie Arreaga MD Admitting physician Active Start: March 04, 2025 End: March 07, 2025 Dr. Rylie Arreaga MD Nurse Practitioner Active Start: March 04, 2025 End: March 07, 2025 Dr. Santana Angel DO Attending physician Active Start: March 04, 2025 End: March 07, 2025 Team Status: Active Member Role/Relationship Status Dates Dr. Shoshana Ulrich MD Primary care physician Active Start: March 05, 2025 Dr. Gera Beard MD Emergency Department Physician Ac tive Start: March 05, 2025 Dr. Rylie Arreaga MD Admitting physician Active Start: March 05, 2025 Dr. Rylie Arreaga MD Nurse Practitioner Active Start: March 05, 2025 Dr. Santana Angel DO Attending physician Active Start: March 05, 2025 Dr. Santana Angel DO Nurse Practitioner Active Start: March 05, 2025 Team Status: Active Member Role/Relationship Status Dates Dr. Shoshana Ulrich MD Primary care physician Active Start: March 06, 2025 Dr. Gera Beard MD Emergency Department Physician Ac tive Start: March 06, 2025 Dr. Rylie Arreaga MD Admitting physician Active Start: March 06, 2025 Dr. Rylie Arreaga MD Nurse Practitioner Active Start: March 06, 2025 Dr. Santana Angel DO Attending physician Active Start: March 06, 2025 Dr. Santana Angel DO Nurse Practitioner Active Start: March 06, 2025 Team Status: Active Member Role/Relationship Status Dates Dr. Shoshana Ulrich MD Primary care physician Active Start: March 07, 2025 Dr. Gera Beard MD Emergency Department Physician Ac tive Start: March 07, 2025 Dr. Rylie Arreaga MD Admitting physician Active Start: March 07, 2025 Dr. Rylie Arreaga MD Nurse Practitioner Active Start: March 07, 2025 Dr. Santana Angel DO Attending physician Active Start: March 07, 2025 Dr. Santana Angel DO Nurse Practitioner Active Start: March 07, 2025 Team Status: Active Member Role/Relationship Status Dates Dr. Shoshana Ulrich MD Primary care physician Active Start: March 08, 2025 Wilfredo CANTU MD Attending physician Active Start: March 08, 2025 Team Status: Active Member Role/Relationship Status Dates Dr. Shoshana Ulrich MD Primary care physician Active Start: March 13, 2025 Wilfredo CANTU MD Attending physician Active Start: March 13, 2025 Source Comments (unrecognize d section and content) In the event this informatio n is protected by the Federal Confidentiality of Alcohol and Drug Abuse Patient Records regulations: The Federal rules restrict any use of the information to criminally investigate or prosecute any alcohol or drug abuse patient.[facility] HealthcareIn the event this information is protected by the Federal Confidentiality of Alcohol and Drug Abuse Patient Records regulations: The Federal rules restrict any use of the information to criminally investigate or prosecute any alcohol or drug abuse patient.[facility] Reason for Visit (unrecogniz ed section and [...] BE BASED ON THE PRIMARY CLINICAL RECORDS. [employer] provides no warranty or guarantee of the accuracy or completeness of information in this document.
[2025-04-08] MEDS: 0.9% Normal Saline (1000mL) 1,000 ML 999 ML IV ×2 (20:34→22:27)
[2025-04-08 20:49] LABS: Hematocrit 31.0 % (40-54); Hemoglobin 9.9 g/dL (13.0-16.5); Immature Granulocytes Count 0.070 X10^3/uL (0.0-0.0); Mean Corp Hgb Conc 31.9 g/dL (32-36); Mean Corpuscular Volume 96.6 fL (80-94); Mean Platelet Vol. 9.6 fl (6.2-12.0); NRBC Flagged by Analyzer 0 % (0-5); POSITIVE MORPHOLOGY YES; Platelet Count 367 K/mm3 (150-450); RBC Distribution Width CV 18.9 % (11.6-14.6); RBC Distribution Width SD 66.9 fl (35.1-43.9); Red Blood Count 3.21 M/mm3 (4.6-6.2); White Blood Count 7.0 K/mm3 (4.4-11.0)
[2025-04-08 20:50] LABS: Differential Indicated SCAN CRITERIA MET
[2025-04-08 21:07] VITALS: BP 94/69; PULSE 71; RESP 18; TEMP 36.7; O2SAT 94
[2025-04-08 21:15] LABS: AST(SGOT) 18 U/L (<=37); Alanine Aminotransfer ALT/SGPT 11 U/L (<=46); Albumin, Serum 3.8 g/dL (3.4-4.8); Alkaline Phosphatase 71 U/L (40-129); Anion Gap 13 (5-15); BUN 35 mg/dL (4-19); BUN/Creat Ratio 28.4 RATIO (10-20); Calcium,Total 8.8 mg/dL (7.6-11.0); Carbon Dioxide 21.4 mmol/L (21.0-32.0); Chloride 103 mmol/L (98-108); Estimated Creatinine Clearance 34.67 ml/min (50-250); Globulin 3.0 g/dL (2.2-4.2); Glucose 126 mg/dL (70-99); Potassium 4.7 mmol/L (3.3-5.1)
[2025-04-08 21:16] LABS: Mucous, Urine 0 SEEN /hpf (<or=2+)
[2025-04-08 21:29] LABS: Color, Urine Yellow (Yellow); Glucose, Dipstick Normal (Normal); Ketone-Dipstick Negative (Negative); Leukocyte Esterase-Dipstick 500 /ul (Negative); Nitrite-Dipstick Negative (Negative); Occult Blood-Urine 150 /ul (Negative); Protein-Dipstick 30 mg/dl (Negative); Specific Gravity, Urine 1.015 (1.002-1.030); Urine Bilirubin Dipstick Negative (Negative)
[2025-04-08 21:56] LABS: Red Blood Cells-Urine 5-10 SEEN /hpf (0-5)
[2025-04-08 21:57] LABS: Squamous Epithelial Cells - UA 0-5 SEEN /hpf (0-5); Transitional Epithelial - Ur 0-5 SEEN /hpf (0-5)
[2025-04-08 22:02] VITALS: BP 102/60; PULSE 72; RESP 16; O2SAT 94
[2025-04-08 22:19] VITALS: BP 96/64; PULSE 64; RESP 19; TEMP 36.6; O2SAT 92
[2025-04-08 22:23] LABS: Differential Comment SCANNED
[2025-04-08 22:24] LABS: Anisocytosis 2+; Hypochromasia 1+; Polychromasia 1+
[2025-04-08] MEDS: Piperacil/Tazobactam 4.5 GM in 0.9% Normal Saline (100mL MB+) 100 ML IV (22:27)
[2025-04-08] MEDS: Pantoprazole Sodium 80 MG in 0.9% Normal Saline (50mL Bag) 15 ML 420 MG IV BOLUS (22:45)
[2025-04-08 22:54] LABS: Prothrombin Time (Protime)PT. 16.3 SECONDS (11.7-14.9)
[2025-04-08 22:55] LABS: Partial Thromboplast Time 37.2 Seconds (24.1-36.2)
[2025-04-08] MEDS: Pantoprazole Sodium 80 MG in 0.9% Normal Saline (100mL Bag) 80 ML 10 MG CONT INF (23:00)
[2025-04-08 23:19] VITALS: BP 140/79; PULSE 83; RESP 19; TEMP 36.6; O2SAT 92
--- NOTE | 2025-04-08 23:20 | RAD_ITS ---
PROCEDURE: ABDOMEN SINGLE VIEW (PORTABLE) 04/08/2025 REASON FOR EXAM: NG INSERTION TECHNIQUE: Procedure Code: RADABD_P Modality: DX Procedure: ABDOMEN SINGLE VIEW (PORTABLE) COMPARISON: 04/08/2025. FINDINGS: Enteric feeding tube is coiled in the mouth/oropharynx without reaching the esophagus. It needs to be adjusted. Mild cardiomegaly, unchanged. Bilateral basilar atelectatic pulmonary changes, unchanged. S shaped degenerative scoliosis. Moderate diffuse spondylosis. IVC filter is noted. Mild diffuse gaseous dilatation of the bowels, unchanged. There is no demonstrated free abdominal air. Normal visualized liver. Normal visualized spleen. Normal visualized kidneys. The soft tissue structures of the pelvis are unremarkable. RAD/Abdomen Single View (Portable) IMPRESSION: Enteric feeding tube is coiled in the mouth/oropharynx without reaching the eso phagus. It needs to be adjusted. Mild cardiomegaly, unchanged. Bilateral basilar atelectatic pulmonary changes, unchanged. S shaped degenerative scoliosis. Moderate diffuse spondylosis. IVC filter is noted. Mild diffuse gaseous dilatation of the bowels, unchanged. Reading Location[facility]
--- NOTE | 2025-04-08 23:37 | RAD_ITS ---
PROCEDURE: ABDOMEN SINGLE VIEW 04/08/2025 REASON FOR EXAM: NG INSERT/ADVANCE TECHNIQUE: Procedure Code: RADABD Modality: DX Procedure: ABDOMEN SINGLE VIEW COMPARISON: 04/08/2025. FINDINGS: Enteric feeding tube is in good position with its tip at the level of the gastric body. Mild diffuse gaseous dilatation of the bowels. IVC filter is noted. Bilateral basilar atelectatic pulmonary changes. Diffuse spondylosis. There is no demonstrated free abdominal air. Normal visualized liver. Normal visualized spleen. Normal visualized kidneys. The soft tissue structures of the pelvis are unremarkable. RAD/Abdomen Single View IMPRESSION: Enteric feeding tube is in good position with its tip at the level of the gastr ic body. Mild diffuse gaseous dilatation of the bowels. IVC filter is noted. Bilateral basilar atelectatic pulmonary changes. Diffuse spondylosis. Reading Location: [facility] [id number]
--- NOTE | 2025-04-08 23:40 | RAD_ITS ---
PROCEDURE: ABDOMEN SINGLE VIEW 04/08/2025 REASON FOR EXAM: NG INSERTION TECHNIQUE: Procedure Code: RADABD Modality: DX Procedure: ABDOMEN SINGLE VIEW COMPARISON: 04/08/2025. FINDINGS: Enteric feeding tube is kinked at the junction of the mid and distal thirds of the esophagus with its tip pointing back to the mid esophagus. It needs to be adjusted. Mild bilateral basilar atelectatic pulmonary changes. Mild diffuse gaseous dilatation of the bowels. IVC filter is noted. Diffuse spondylosis. There is no demonstrated free abdominal air. Normal visualized liver. Normal visualized spleen. Normal visualized kidneys. The soft tissue structures of the pelvis are unremarkable. RAD/Abdomen Single View IMPRESSION: Enteric feeding tube is kinked at the junction of the mid and distal thirds of the esophagus with its tip pointing back to the mid esophagus. It needs to be adjusted. Mild bilateral basilar atelectatic pulmonary changes. Mild diffuse gaseous dilatation of the bowels. IVC filter is noted. Diffuse spondylosis. Reading Location[facility]
[2025-04-08] MEDS: HUM PROTHROMBIN CPLX(PCC)-LANS 3,120 UNIT in Viaflex Bag 1 BAG 420 UNIT IV (23:51)
[2025-04-09] VITALS: BP 115/76; PULSE 80; RESP 16; TEMP 36.6; O2SAT 92
[2025-04-09] MEDS: 0.9% Normal Saline (1000mL) 1,000 ML 150 ML IV (00:03)
[2025-04-09 00:14] VITALS: BP 117/66; PULSE 74; RESP 16; TEMP 36.6; O2SAT 92
== END 2025-04-09 00:29 | disposition short-term general hospital (02) ==
PROVIDERS: Emergency Provider Emergency Medicine; PCP Family Medicine; Visit Provider Emergency Medicine
DX: R10.30 Lower abdominal pain, unspecified (principal); G89.29 Other chronic pain; I10 Essential (primary) hypertension; F17.210 Nicotine dependence, cigarettes, uncomplicated; Z79.01 Long term (current) use of 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; Z79.899 Other long term (current) drug therapy; Z86.718 Personal history of other venous thrombosis and embolism
CPT/HCPCS: 74018; 74177; 80053; 81001; 83605; 85025; 85610; 85730; 87040; 96361; 96365; 96367; 96372; 96375; 99285; Q9967; A4216; J2405; J7165

== ENCOUNTER 2025-04-17 14:48 | Emergency (ER) | payer MEDICARE, SELFPAY ==
[2025-04-17 14:49] VITALS: BP 112/71; PULSE 83; RESP 16; TEMP 36.6; O2SAT 97; BMI 22.6
--- NOTE | 2025-04-17 14:59 | EX.ED.DYSGE1 ---
HPI History of Present Illness Chief Complaint: Fall Narrative Narrative: Patient is a 89-year-old male with a past medical history depression, DVT on Eliquis, COPD who presented to the emergency department chief complaint of skin tear to left hand. He states that he was sitting on the toilet and the toilet seat when [address] went the other way causing him to fall. He states that he landed on his left side he states that he not hit his head did not pass out. He states that his hand was bleeding significantly secondary to him being on the blood thinning medications. Patient denies any pain in the lower else. He states that he is unsure when his last tetanus shot was. 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 Wears glasses Wears hearing aid in both ears Cancer Hx of gout CPAP (continuous positive airway pressure) dependence Shortness of breath on exertion Smoker Emphysema, unspecified Hypertension Restless legs Injury of back Home Medications ?Medication ?Instructions ?Recorded ?Last Taken ?Type amlodipine 5 mg tablet 5 mg PO DAILY BP 07/02/22 03/04/25 History albuterol sulfate 90 mcg/actuation 2 puff inhalation Q4H PRN 01/18/25 Unknown History aerosol inhaler sob/wheezing acetaminophen 500 mg tablet 1,000 mg (2 x 500 mg) PO Q8 #0 tabs 03/07/25 Unknown Rx bisacodyl 5 mg tablet,delayed 5 mg PO QHS 2 days #2 tabs 03/07/25 Unknown Rx release (Dulcolax (bisacodyl)) food supplemt, lactose-reduced 120 ml PO 4X/DAY #0 mL 03/07/25 Unknown Rx 0.08 gram-1.5 kcal/mL oral liquid (Ensure Plus High Protein) polyethylene glycol 3350 17 17 g PO DAILY #119 grams 03/07/25 Unknown Rx gram/dose oral powder (Miralax) duloxetine 60 mg capsule,delayed 60 mg PO QDAY 03/27/25 Unknown History release sprinkle melatonin 3 mg capsule 3 mg PO HS PRN 03/27/25 Unknown History naloxone 0.4 mg/mL injection 0.4 mg IM Q2M PRN 03/27/25 Unknown History syringe amitriptyline 10 mg tablet 10 mg PO QPM 04/08/25 Unknown History apixaban 5 mg tablet (Eliquis) 5 mg PO BID 04/08/25 Unknown History oxycodone-acetaminophen 7.5 mg-325 1 tab PO TID PRN pain 04/08/25 Unknown History mg tablet Allergy/AdvReac Type Severity Reaction Status Date / Time tiotropium (From Spiriva Allergy Unknown unknown Verified 04/17/25 14:49 with HandiHaler) ibuprofen (From Motrin) Allergy Swelling Verified 04/17/25 14:49 Family History Mother , 61 Cancer Father , 91 AD (Alzheimer's disease) Sister Multiple sclerosis Surgical History History of back surgery S/P TURP (transurethral resection of prostate) History of cataract surgery History of embolic filter insertion Hx of colonoscopy with polypectomy History of hand surgery S/P insertion of spinal cord stimulator History of varicose vein stripping Hx of myringotomy History of parotidectomy History of esophagogastroduodenoscopy (EGD) History of cystoscopy Hx of basal cell carcinoma excision Hx of finger joint replacement Hx of decompressive lumbar laminectomy Social History household members: none housing: house current occupational status: retired pets and animals: Yes pets and animals: dog(s) Smoking Status: Current every day smoker tobacco type: cigarettes Tobacco: How many years used: 69 alcohol intake: current details: On avg a couple drinks each evening substance use type: does not use caffeine: Yes Type: coffee Number of servings: 2 do you feel safe at home: Yes ROS ROS ED ROS Narrative Constitutional: Denies headache, lightness, dizziness Eyes: Denies double vision Cardiovascular: Denies chest pain Respiratory: Denies shortness of breath Abdomen: Denies abdominal pain nausea vomiting diarrhea : Denies urinary symptoms Neurological: Denies any numbness or tingling Musculoskeletal: Complains of left hand pain from the skin tear Skin: Complains of skin tear to the back of the left hand as noted above EXAM Physical Exam Narrative Exam Narrative: General: Patient was lying in bed rest comfortably did not appear to be acute distress Head: Atraumatic, normocephalic Eyes: PERRL bilaterally, EOMI bilaterally, no conjunctival injection or Neck: Soft, supple, trachea midline Cardiovascular: Regular rate and rhythm Respiratory: Clear to auscultation bilaterally Abdomen: Soft, nondistended, no tenderness to palpation Musculoskeletal: All bony prominence palpated joints taken through full range of motion no pain elicited no pain to palpation of the midline of the cervical, thoracic or lumbar spine Extremities: Radial pulses +2/4 in the bilateral extremities, +4/5 strength noted in the bilateral upper and lower extremity Neurological: Patient is following commands that he was at [facility] years 2024 NIH of 0 GCS 15 Skin: Patient has a large skin tear on the dorsal aspect of his left hand. Portion of the skin is completely avulsed off with the other portion of this still intact however skin is very thin and will likely tear if I tried to place sutures. Const Vital Signs: 04/17/25 14:49 04/17/25 15:48 04/17/25 17:01 Temperature 98 F Temperature Source Oral Pulse Rate 83 83 Respiratory Rate 16 16 Respiratory Effort Normal Non-Labored Respiratory Depth Normal Respiratory Pattern Normal Blood Pressure 112/71 124/83 H Blood Pressure Mean 84 96 Pulse Ox 97 97 Oxygen Delivery Method Room Air Room Air MDM MDM MDM Narrative Medical decision making narrative: Patient is a 89-year-old male who presented to the emergency department the chief complaint of fall with left hand pain. On the differential diagnose includes but limited to skin tear, metacarpal fracture, intracranial hemorrhage. Once workup is obtained and reviewed he will be reevaluated. Patient's tetanus shot will be updated. Patient's CT and brain without contrast reviewed showed no acute cranial processes. Patient hand x-ray reviewed by myself and by radiology which showed ORIF of the right second digit no acute fracture or dislocation noted. Patient ambulated well in the emergency department. Patient's wound measured approximately 9-1/2 cm x 4-1/2 cm. Steri-Strips were applied to the portion where his skin was still attached and Adaptic was then applied over top of this followed by 4 x 4's and Yahir wrap. He is advised that he needs to keep this area dry and clean and follow-up with his primary care physician and wound care. He is encouraged to return with surrounding redness pus coming from his hand or any other concerns. He is agreeable this plan all question concerns answered is discharged home in stable condition Radiography Diagnostic Testing: Clinical Impression(s) from Imaging Studies Brain CT 04/17/25 15:20 IMPRESSION: No acute intracranial process. Reading Location: [id number] Hand X-Ray 04/17/25 15:30 IMPRESSION: ORIF of the right 2nd digit. No acute fractures or dislocations. Reading Location[facility] Discharge Plan Triage Chief Complaint: Fall ED Provider: Jaydon Hitchcock Dx/Rx/DC Orders Clinical Impression: Fall, Skin tear of left hand without complication Prescriptions: No Action amlodipine 5 mg tablet 5 mg PO DAILY duloxetine 60 mg capsule, delayed rel sprinkle 60 mg PO QDAY albuterol sulfate 90 mcg/actuation HFA aerosol inhaler 2 puff INHALATION Q4H PRN (Reason: sob/wheezing) Patient Comments: pt sais he does not use because it doesnt help amitriptyline 10 mg tablet 10 mg PO QPM oxycodone-acetaminophen 7.5-325 mg tablet 1 tab PO TID PRN (Reason: pain) Eliquis 5 mg tablet 5 mg PO BID acetaminophen 500 mg Tablet 1,000 mg PO Q8 Qty: 0 0RF Ensure Plus High Protein 0.08 gram-1.5 kcal/mL Liquid 120 ml PO 4X/DAY Qty: 0 0RF polyethylene glycol 3350 [Miralax] 17 gram/dose powder 17 g PO DAILY Qty: 119 0RF bisacodyl [Dulcolax (bisacodyl)] 5 mg tablet,delayed release (DR/EC) 5 mg PO QHS 2 Days Qty: 2 0RF Primary Care Provider: Shoshana Ulrich Referrals: Shoshana Ulrich MD [Primary Care Provider, Family Practice] Activity Restrictions/Additional Instructions: Follow-up with your primary care physician and wound care for your hand. If you start developing surrounding redness or pus coming from this you need to return to the emergency department. Keep the area dry and clean. In a few days change the Adaptic which you were provided then laid out a few 4 x 4's then used the Yahir wrap on top of that. Return with worsening symptoms or concerns. Your tetanus shot was updated today. Print Language: Belarusian Disposition Disposition: Home, Self Care
--- NOTE | 2025-04-17 15:20 | CT_ITS ---
PROCEDURE: BRAIN/HEAD WITHOUT CONTRAST 04/17/2025 REASON FOR EXAM: FALL TECHNIQUE: Procedure Code: CTBR Modality: CT Procedure: BRAIN/HEAD WITHOUT CONTRAST Coronal and Sagittal reconstruction series were provided. One or more dose reduction techniques were used (e.g., Automated exposure control, adjustment of the mA and/or kV according to patient size, use of iterative reconstruction technique. RADIATION DOSE SUMMARY: DLP: 1745 mGycm COMPARISON: none FINDINGS: There is no acute infarct, intracranial hemorrhage, or mass effect. There is no hydrocephalus or significant midline shift. There is [id number] chronic microvascular ischemic changes and mild to moderate parenchymal volume loss. No acute, depressed calvarial fractures. No large scalp hematomas. The paranasal sinuses are clear. CT/Brain/Head without Contrast IMPRESSION: No acute intracranial process. Reading Location: [id number]
--- NOTE | 2025-04-17 15:30 | RAD_ITS ---
PROCEDURE: HAND MIN 3 VIEWS 04/17/2025 REASON FOR EXAM: SKIN TEAR, FALL TECHNIQUE: Procedure Code: REX Modality: DX Procedure: HAND MIN 3 VIEWS Laterality: Right FINDINGS: Bones: ORIF of the right 2nd metacarpal interphalangeal joint. No acute fractures. Joints: Normal alignment. Mild degenerative changes. Soft tissues: Soft tissues are unremarkable. RAD/Hand Min 3 Views IMPRESSION: ORIF of the right 2nd digit. No acute fractures or dislocations. Reading Location: [facility]
[2025-04-17 17:01] VITALS: BP 124/83; PULSE 83; RESP 16; O2SAT 97
[2025-04-17 17:44] VITALS: BP 124/83; PULSE 83; RESP 16; TEMP 36.6; O2SAT 97
== END 2025-04-17 17:53 | disposition home or self-care (01) ==
PROVIDERS: Emergency Provider Emergency Medicine; PCP Family Medicine; Visit Provider Emergency Medicine
DX: S61.402A Unspecified open wound of left hand, initial encounter (principal); W18.11XA Fall from or off toilet without subsequent striking against object, initial encounter; I10 Essential (primary) hypertension; F17.210 Nicotine dependence, cigarettes, uncomplicated; Z79.01 Long term (current) use of 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; Z79.899 Other long term (current) drug therapy; Z86.718 Personal history of other venous thrombosis and embolism; Z23 Encounter for immunization
CPT/HCPCS: 70450; 73130; 90471; 90715; 99284

== ENCOUNTER 2025-04-29 09:24 | Day surgery (SDC) | payer MEDICARE, SELFPAY ==
--- NOTE | 2025-04-25 19:34 | PAT.ANESEVAL ---
Pre-Assessment Diagnosis/Proposed Procedure Planned Operative Procedure(s): Left Sided Lumbar Transforaminal Epidural Steroid Injection L3, L4, L5 Under Fluoroscopy Anesthesia History Anesthesia History - photogrammetric tech: Anesthesia History - photogrammetric tech Hx Hospitalization No 04/25/25 13:49 Any Problems With Anesthesia No 04/25/25 13:49 Cholinesterase deficiency No 04/25/25 13:49 You/Your Family Experience No 04/25/25 13:49 fever (hyperthermia) with Relationship Recent Exposure to Contagious No 04/04/25 08:45 Disease Does patient have nerve Yes: ALREADY OFF 04/25/25 13:49 stimulator Patient instructed to have device shut off --Does patient have Pacemaker or ICD? When Was Last Pacemaker Check QUESTION #4 FULL TEXT: You/Your Family Experience fever (hyperthermia) with Anesthesia Last Oral Intake Last Oral intake: Last Oral Intake NPO since Meds taken in AM with sips of water? Meds patient instructed to take am of surgery PONV PONV - photogrammetric tech: PONV - photogrammetric tech Female No 04/25/25 13:49 HX of Motion Sickness No 04/25/25 13:49 HX of N/V After Surgery No 04/25/25 13:49 Non-Smoker Yes 04/25/25 13:49 Duration of Surgery greater No 04/25/25 13:49 than 60 minutes Number of Risk Factors 1 04/25/25 13:49 PONV Score Low Risk 04/25/25 13:49 Height & Weight Height & Weight: Anesthesia: Height & Weight Height 5 ft 5 in 04/17/25 14:49 Respiratory Assessment Respiratory Assessment - photogrammetric tech: Respiratory Tract Infection Hx - photogrammetric tech Hx Respiratory Tract Infection No 04/25/25 13:49 STOP Sleep Apnea STOP Sleep Apnea - photogrammetric tech: STOP Sleep Apnea - photogrammetric tech Hx Hypertension Yes: CONTROLLED WITH MED 04/25/25 13:49 Hx Sleep Apnea Yes 04/25/25 13:49 CPAP Yes: DOESNT USE 04/25/25 13:49 BIPAP No 04/25/25 13:49 Do you snore loudly (louder than talking or can be heard Do you often feel tired/ fatigued/ sleepy during daytime? Has anyone observed you stop breathing during sleep? STOP Results Positive 04/25/25 13:49 QUESTION #5 FULL TEXT : Do you snore loudly (louder than talking or can be heard through closed doors)? 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 Specify any problems Hx of Preganancy in last 3 N/A 04/25/25 13:49 Months Nurse Filling Out Transfusion VCHRISTIN 04/25/25 13:49 & Questions: Date: 04/25/25 04/25/25 13:49 Time: 13:54 04/25/25 13:49 Patient unable to answer at this time (ie. confused, unrespo /Reproduction History /Reproductive History - photogrammetric tech: /Reproductive Hx- photogrammetric tech Hx Now No 04/25/25 13:49 Gestational Age (in weeks): EDC: Hx Hx Para Hx Section SAB No 04/25/25 13:49 Does the father of the baby or his family experience fever w Father of the baby Malignant Hypertension history comment [facility] Medical History (Updated 04/25/25 @ 13:56 by Maira Baumann) Cardiology follow-up encounter History of stress test Hx of fall Back pain Chronic pain Hx of degenerative disc disease Intractable back pain Cellulitis of right upper extremity Skin tear of right upper extremity Depression Arthritis Ambulates with cane Bladder disease DVT (deep venous thrombosis) Restless legs COPD (chronic obstructive pulmonary disease) History of pain when walking Neuropathy Pain Alcohol use History of echocardiogram Hypertension History of edema 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 Wears glasses Wears hearing aid in both ears Cancer Hx of gout CPAP (continuous positive airway pressure) dependence Shortness of breath on exertion Smoker Emphysema, unspecified Hypertension Restless legs Injury of back Home Medications ?Medication ?Instructions ?Recorded ?Last Taken ?Type amlodipine 5 mg tablet 5 mg PO DAILY BP 07/02/22 03/04/25 History albuterol sulfate 90 mcg/actuation 2 puff inhalation Q4H PRN 01/18/25 Unknown History aerosol inhaler sob/wheezing oxycodone-acetaminophen 7.5 mg-325 1 tab PO TID PRN pain 04/08/25 Unknown History mg tablet acetaminophen 500 mg tablet 1,000 mg PO Q8 PRN pain 04/25/25 Unknown History apixaban 2.5 mg tablet (Eliquis) 2.5 mg PO BID 04/25/25 Unknown History Allergy/AdvReac Type Severity Reaction Status Date / Time tiotropium (From Spiriva Allergy Unknown unknown Verified 04/17/25 14:49 with HandiHaler) ibuprofen (From Motrin) Allergy Swelling Verified 04/17/25 14:49 Family History Mother , 61 Cancer Father , 91 AD (Alzheimer's disease) Sister Multiple sclerosis Surgical History (Updated 04/25/25 @ 13:49 by Maira Baumann) Hx of surgical procedure Hx of colonoscopy History of back surgery S/P TURP (transurethral resection of prostate) History of cataract surgery History of embolic filter insertion Hx of colonoscopy with polypectomy History of hand surgery S/P insertion of spinal cord stimulator History of varicose vein stripping Hx of myringotomy History of parotidectomy History of esophagogastroduodenoscopy (EGD) History of cystoscopy Hx of basal cell carcinoma excision Hx of finger joint replacement Hx of decompressive lumbar laminectomy Social History household members: none housing: house current occupational status: retired pets and animals: Yes pets and animals: dog(s) Smoking Status: Current every day smoker tobacco type: cigarettes Tobacco: How many years used: 69 alcohol intake: current details: On avg a couple drinks each evening substance use type: does not use caffeine: Yes Type: coffee Number of servings: 2 do you feel safe at home: Yes Audit: Pertinent Findings Pertinent Findings EKG Perinent findings: 02/19/2025. Sinus rhythm with first-degree AV block. Right bundle branch block. Left anterior fascicular block. Septal infarct, age undetermined. Stress test pertinent findings: 04/02/2025. EF is 62%. Small apical reversible perfusion defect suggestive of mild apical ischemia involving 4% of myocardium. Echo (EF%) pertinent findings: 04/02/2025. EF of 50 to 55%. RVSP is 40 mmHg. No aortic stenosis noted. Consult pertinent findings: 02/12/2025. Dr. Arellano. 1. Preop cardiovascular exam-Will risk stratify this patient by doing a Lexiscan stress Myoview and echocardiogram. (See above). 2. Coronary artery disease-coronary calcifications are noted as incidental findings on a CT scan of the chest. Check stress test (above). 3. Abnormal EKG?likely underlying sick sinus syndrome. Check echo. 4. Hypertension-on amlodipine. 5. History of DVT?on apixaban. Recommendation Anesthesia Recommendation Anesthesia recommendation: OPTIMIZED for anesthesia
[2025-04-29] VITALS (8 sets, daily range): BP systolic 96–110; BP diastolic 64–76; PULSE 68–77; RESP 16; TEMP 36.3–36.6; O2SAT 97–99; BMI 23.8
--- NOTE | 2025-04-29 10:10 | RAD_ITS ---
PROCEDURE: Intraoperative fluoroscopic services. 04/29/2025 REASON FOR EXAM: LEFT SIDE TRANSFORAMINAL BLOCK, L3, L4, L5 TECHNIQUE: Procedure Code: RADSPLL Modality: DX Procedure: LUMBAR SPINE 2 OR 3 VIEWS. Fluoroscopy: 11.7 seconds. Radiation dose: 3 point 6 mGy. 2 images were submitted. COMPARISON: None FINDINGS: Intraoperative imaging provided for left-sided transforaminal block at the L3-L4 and L4-L5 levels. RAD/Lumbar Spine 2 or 3 Views IMPRESSION: Intraoperative fluoroscopic services provided for left-sided transforaminal blo ck at the L3-L4 and L4-L5 levels. Reading Location: [facility]
--- NOTE | 2025-04-29 10:20 | PRE.ANES_ITS ---
ASA Classification* ASA Classification ASA Classification: 3 Assessment & Plan Anesthesia* Anesthesia Assessment Anesthesia Assessment: Discussed sedation and/or anesthesia options, risks, benefits, and alternatives with patient/parents/legal guardian/POA. Questions invited. The patient/parents/legal guardian/POA seems to understand and agrees to proceed with anesthesia plan. Reviewed the physical assessment, medical history, allergy history and patient home medications list prior to surgery/procedure/anesthetic and documented any changes. Performed airway and anesthesia risk assessments. Anesthesia Type Anesthesia Type: MAC History Source History Obtained from:: Patient and Chart Anesthesia Focused Assessment* Temperature: 97.5 F Pulse Rate: 77 Blood Pressure: 108/64 Respiratory Rate: 16 Pulse Ox: 99 Oxygen Delivery Method: Room Air Airway Assessment Mouth opens: >3 cm Mallampati Score: III Teeth Condition: Intact Neck Range of motion (ROM): Limited ROM (Somewhat Decreased) Labs Anesthesia Preop lab: CBC WBC, (4.4-11.0) 7.0 K/mm3 04/08/25, 20:09 RBC, (4.6-6.2) 3.21 M/mm3 L 04/08/25, 20:09 Hgb, (13.0-16.5) 9.9 g/dL L 04/08/25, 20:09 Hct, (40-54) 31.0 % L 04/08/25, 20:09 Plt Count, (150-450) 367 K/mm3 04/08/25, 20:09 CHEMISTRY Potassium, (3.3-5.1) 4.7 mmol/L 04/08/25, 20:09 Sodium, (133-145) 137 mmol/L 04/08/25, 20:09 Magnesium, (1.6-2.6) 2.1 mg/dL 09/20/23, 06:35 Phosphorus, (2.5-4.9) 3.4 mg/dL 09/20/23, 06:35 BUN, (4-19) 35 mg/dL H 04/08/25, 20:09 Creatinine, (0.70-1.20) 1.24 mg/dL H 04/08/25, 20:09 Glucose, (70-99) 126 mg/dL H 04/08/25, 20:09 TSH, (0.300-4.200) 1.170 uIU/mL 01/24/25, 14:07 COAG PT, (11.7-14.9) 16.3 SECONDS H 04/08/25, 22:23 Pre-Assessment Diagnosis/Proposed Procedure Planned Operative Procedure(s): Left Sided Lumbar Transforaminal Epidural Steroid Injection L3, L4, L5 Under Fluoroscopy Anesthesia History Anesthesia History - rapid outsole stitcher: Anesthesia History - rapid outsole stitcher Hx Hospitalization No 04/25/25 13:49 Any Problems With Anesthesia No 04/25/25 13:49 Cholinesterase deficiency No 04/25/25 13:49 You/Your Family Experience No 04/25/25 13:49 fever (hyperthermia) with Relationship Recent Exposure to Contagious No 04/04/25 08:45 Disease Does patient have nerve Yes: ALREADY OFF 04/25/25 13:49 stimulator Patient instructed to have device shut off --Does patient have Pacemaker No 04/29/25 09:45 or ICD? When Was Last Pacemaker Check QUESTION #4 FULL TEXT: You/Your Family Experience fever (hyperthermia) with Anesthesia Last Oral Intake Last Oral intake: Last Oral Intake NPO since 01:00 04/29/25 09:45 Meds taken in AM with sips of No 04/29/25 09:45 water? Meds patient instructed to take am of surgery PONV PONV - rapid outsole stitcher: PONV - rapid outsole stitcher Female No 04/25/25 13:49 HX of Motion Sickness No 04/25/25 13:49 HX of N/V After Surgery No 04/25/25 13:49 Non-Smoker Yes 04/25/25 13:49 Duration of Surgery greater No 04/25/25 13:49 than 60 minutes Number of Risk Factors 1 04/25/25 13:49 PONV Score Low Risk 04/25/25 13:49 Height & Weight Height & Weight: Anesthesia: Height & Weight Height 5 ft 5 in 04/29/25 09:45 Weight: 64.864 kg 04/29/25 09:45 Body Mass Index (BMI) 23.8 04/29/25 09:45 Respiratory Assessment Respiratory Assessment - rapid outsole stitcher: Respiratory Tract Infection Hx - rapid outsole stitcher Hx Respiratory Tract Infection No 04/25/25 13:49 STOP Sleep Apnea STOP Sleep Apnea - rapid outsole stitcher: STOP Sleep Apnea - rapid outsole stitcher Hx Hypertension Yes: CONTROLLED WITH MED 04/25/25 13:49 Hx Sleep Apnea Yes 04/25/25 13:49 CPAP Yes: DOESNT USE 04/25/25 13:49 BIPAP No 04/25/25 13:49 Do you snore loudly (louder than talking or can be heard Do you often feel tired/ fatigued/ sleepy during daytime? Has anyone observed you stop breathing during sleep? STOP Results Positive 04/25/25 13:49 QUESTION #5 FULL TEXT : Do you snore loudly (louder than talking or can be heard through closed doors)? 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 Specify any problems Hx of Preganancy in last 3 N/A 04/25/25 13:49 Months Nurse Filling Out Transfusion VCHRISTIN 04/25/25 13:49 & Questions: Date: 04/25/25 04/25/25 13:49 Time: 13:54 04/25/25 13:49 Patient unable to answer at this time (ie. confused, unrespo /Reproduction History /Reproductive History - rapid outsole stitcher: /Reproductive Hx- rapid outsole stitcher Hx Now No 04/25/25 13:49 Gestational Age (in weeks): EDC: Hx Hx Para Hx Section SAB No 04/25/25 13:49 Does the father of the baby or his family experience fever w Father of the baby Malignant Hypertension history comment [facility] Medical History Cardiology follow-up encounter History of stress test Hx of fall Back pain Chronic pain Hx of degenerative disc disease Intractable back pain Cellulitis of right upper extremity Skin tear of right upper extremity Depression Arthritis Ambulates with cane Bladder disease DVT (deep venous thrombosis) Restless legs COPD (chronic obstructive pulmonary disease) History of pain when walking Neuropathy Pain Alcohol use History of echocardiogram Hypertension History of edema 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 Wears glasses Wears hearing aid in both ears Cancer Hx of gout CPAP (continuous positive airway pressure) dependence Shortness of breath on exertion Smoker Emphysema, unspecified Hypertension Restless legs Injury of back Home Medications ?Medication ?Instructions ?Recorded ?Last Taken ?Type amlodipine 5 mg tablet 5 mg PO DAILY BP 07/02/22 History albuterol sulfate 90 mcg/actuation 2 puff inhalation Q 4H PRN 01/18/25 Unknown History aerosol inhaler sob/wheezing oxycodone-acetaminophen 7.5 mg-325 1 tab PO TID PRN pa in 04/08/25 Unknown History mg tablet acetaminophen 500 mg tablet 1,000 mg PO Q8 PRN pain Unknown History apixaban 2.5 mg tablet (Eliquis) 2.5 mg PO BID 5 Unknown History Allergy/AdvReac Type Severity Reaction Status Date / Time tiotropium (From Spiriva Allergy Unknown unknown Verified 04/29/25 09:44 with HandiHaler) ibuprofen (From Motrin) Allergy Swelling Verified 04/29/25 09:44 Family History Mother , 61 Cancer Father , 91 AD (Alzheimer's disease) Sister Multiple sclerosis Surgical History Hx of surgical procedure Hx of colonoscopy History of back surgery S/P TURP (transurethral resection of prostate) History of cataract surgery History of embolic filter insertion Hx of colonoscopy with polypectomy History of hand surgery S/P insertion of spinal cord stimulator History of varicose vein stripping Hx of myringotomy History of parotidectomy History of esophagogastroduodenoscopy (EGD) History of cystoscopy Hx of basal cell carcinoma excision Hx of finger joint replacement Hx of decompressive lumbar laminectomy Social History household members: none housing: house current occupational status: retired pets and animals: Yes pets and animals: dog(s) Smoking Status: Current every day smoker tobacco type: cigarettes Tobacco: How many years used: 69 alcohol intake: current details: On avg a couple drinks each evening substance use type: does not use caffeine: Yes Type: coffee Number of servings: 2 do you feel safe at home: Yes Review of Systems (Anesthesia) ROS Narrative System reviewed and no additional complaints, except as documented.
[2025-04-29] MEDS: Lidocaine 1% (5 ml sdv) 5 ML Vial (10:44)
--- NOTE | 2025-04-29 10:56 | PCM.POST.ANE ---
Anesthesia: Postop Eval I Current Vital Signs Temperature: 97.9 F Pulse Rate: 71 Blood Pressure: 103/69 Respiratory Rate: 16 Pulse Ox: 99 Assessment Airway patent: Yes Spontaneous unlabored respirations: Yes nausea: No Vomiting: No Anesthesia Complication: No Fluid Hydration Crystalloid volume administer (ml): 100 Total IV fluid infused: 100 Progress Note Anesthesia document: Postop Eval 1 completed: Yes
--- NOTE | 2025-04-29 11:07 | PCM.OPRPT ---
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 Type of Anesthesia: Local MAC RN Documented Start/Stop Times: Operation Date: 04/29/25 11:10 Case Time Into Pre-Op 04/29/25 09:33 Anesthesia Start 04/29/25 10:35 Into Room 04/29/25 10:35 Procedure Start 04/29/25 10:43 Procedure End 04/29/25 10:48 Anesthesia End 04/29/25 10:51 Out of Room 04/29/25 10:51 Into Recovery 04/29/25 10:53 Out of Recovery 04/29/25 11:06 Into Phase II Recovery 04/29/25 11:07 Procedure Start Time: 11:07 Procedure Stop Time: 11:07 Select all DRAINS/GRAFTS/IMPLANTS that apply: None Estimated Blood Loss: 1 Specimen collected: No Description of surgery: PROCEDURE PERFORMED: Left-sided lumbar transforaminal epidural steroid injection, L3-4 and L4-5. ANESTHESIA: MAC. BLOOD LOSS: Minimal. COMPLICATIONS: None. DESCRIPTION OF PROCEDURE: History and physical of today was reviewed. Risks and benefits of the procedure were explained. The patient understood and agreed to proceed. Informed consent was obtained. IV inserted per routine protocol. The patient was taken to the operating room and placed in the prone position with a pillow positioned underneath the abdomen. The left side of his lower back was prepped and draped in a sterile fashion using iodine x3. Under fluoroscopy guidance on oblique view, the L3 through L5 vertebral bodies were visualized. The skin and subcutaneous tissue was anesthetized with approximately 5 mL of 1% lidocaine using a 25-gauge regular needle. Under direct visualization with fluoroscopy at approximately 35-degree angle, starting on the left L3, ending on the left L4, using a 22-gauge 3 1/2-inch spinal needle, the needle was advanced via the skin. The tip of the needle was maneuvered and directed towards the inferior and medial gutter of the transverse process at the superiormost aspect of the neural foramen. Once the tip of the needle was at the vicinity of the foramen, after negative aspiration for blood or CSF, a total of 1 mL of contrast was injected in divided doses between both levels to confirm correct placement of the needle as well as medial spread. The confirmation was obtained on AP as well as lateral view. After repeated negative aspiration and confirmation on AP as well as lateral view, a total of 6 mL of preservative-free 0.25% Marcaine with 80 mg of Depo-Medrol was injected in divided doses between both levels. The needles were then removed intact. The patient experienced no sign or symptoms of intrathecal or intravascular injection. The patient experienced no paresthesia. The procedure was completed without any apparent difficulty or any complications. The patient appeared to tolerate it well. ASSESSMENT AND PLAN: This is an 89-year-old male with lumbosacral radiculopathy, lumbosacral degenerative disk disease, and lumbosacral spinal stenosis with claudication, status post left-sided lumbar transforaminal epidural steroid injection at L3-4 and L4-5. The patient will continue his current medications. The patient will follow up in approximately 2 weeks for reevaluation. Surgical Findings: 0 Complications Complications: No Admit VTE Documentation VTE Present on Admission: No VTE Mechan Device Prophylaxis: None VTE Pharm Prophylaxis ordered?: No
--- NOTE | 2025-04-29 11:17 | POSTOPAN2_ITS ---
Anesthesia Postop Eval I Sum Postop Eval Completion status Anesthesia document: Postop Eval 1 completed: Yes Anesthesia Postop Eval I Summary Anesthesia Postop Eval I Summary: Anesthesia Postop Eval I: Assessment Summary Airway patent Yes 04/29/25 10:56 [email or web address] Spontaneous unlabored Yes 04/29/25 10:56 [email or web address] respirations Mental status nausea No 04/29/25 10:56 [email or web address] Vomiting No 04/29/25 10:56 [email or web address] Anesthesia Postop Eval I: Fluid Summary Crystalloid volume administer 100 04/29/25 10:56 [email or web address] (ml) Colloids volume administered ( ml) Blood Product volume administered (ml) Total IV fluid infused 100 04/29/25 10:56 [email or web address] Anesthesia Postop Eval I: Summary Notes Anesthesia Complication No 04/29/25 10:56 [email or web address] Anesthesia Complication Comment: Post-operative progress note Anesthesia: Postop Eval II Evaluation Mental status: Awake and Calm Pain Level: 2 nausea: No Vomiting: No Complications Anesthesia Complication: No
--- NOTE | 2025-04-29 11:17 | PCM.POSTANE2 ---
Anesthesia Postop Eval I Sum Postop Eval Completion status Anesthesia document: Postop Eval 1 completed: Yes Anesthesia Postop Eval I Summary Anesthesia Postop Eval I Summary: Anesthesia Postop Eval I: Assessment Summary Airway patent Yes 04/29/25 10:56 [email or web address] Spontaneous unlabored Yes 04/29/25 10:56 [email or web address] respirations Mental status nausea No 04/29/25 10:56 [email or web address] Vomiting No 04/29/25 10:56 [email or web address] Anesthesia Postop Eval I: Fluid Summary Crystalloid volume administer 100 04/29/25 10:56 [email or web address] (ml) Colloids volume administered ( ml) Blood Product volume administered (ml) Total IV fluid infused 100 04/29/25 10:56 [email or web address] Anesthesia Postop Eval I: Summary Notes Anesthesia Complication No 04/29/25 10:56 [email or web address] Anesthesia Complication Comment: Post-operative progress note Anesthesia: Postop Eval II Evaluation Mental status: Awake and Calm Pain Level: 2 nausea: No Vomiting: No Complications Anesthesia Complication: No
== END 2025-04-29 11:59 | disposition home or self-care (01) ==
LOC: SDC 09:26 → AC 09:29
PROVIDERS: PCP Family Medicine; Referring Provider Anesthesiology Pain Medicine; Visit Provider Anesthesiology Pain Medicine
PROC: 3E0S3BZ Introduction of Anesthetic Agent into Epidural Space, Percutaneous Approach (ICD-10-PCS; CPT 64484; principal; 2025-04-29 11:05)
DX: M51.17 Intervertebral disc disorders with radiculopathy, lumbosacral region (principal); M48.07 Spinal stenosis, lumbosacral region; I10 Essential (primary) hypertension; F17.210 Nicotine dependence, cigarettes, uncomplicated; Z79.01 Long term (current) use of 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; Z79.899 Other long term (current) drug therapy; Z86.718 Personal history of other venous thrombosis and embolism
CPT/HCPCS: 64484; 01992; 64483; 72100; A4216

== ENCOUNTER → 2025-05-02 | Outpatient (CLI) | payer MEDICARE, SELFPAY ==
[2025-05-02 15:56] LABS: Hematocrit 29.3 % (40-54); Hemoglobin 9.2 g/dL (13.0-16.5); Immature Granulocytes Count 0.070 X10^3/uL (0.0-0.0); Mean Corp Hgb Conc 31.4 g/dL (32-36); Mean Corpuscular Volume 96.7 fL (80-94); Mean Platelet Vol. 10.0 fl (6.2-12.0); NRBC Flagged by Analyzer 0 % (0-5); POSITIVE MORPHOLOGY YES; Platelet Count 378 K/mm3 (150-450); RBC Distribution Width CV 18.9 % (11.6-14.6); RBC Distribution Width SD 67.6 fl (35.1-43.9); Red Blood Count 3.03 M/mm3 (4.6-6.2); White Blood Count 6.7 K/mm3 (4.4-11.0)
[2025-05-02 16:02] LABS: Anion Gap 12 (5-15); BUN 34 mg/dL (4-19); BUN/Creat Ratio 26.0 RATIO (10-20); Calcium,Total 9.1 mg/dL (7.6-11.0); Carbon Dioxide 26.3 mmol/L (21.0-32.0); Chloride 96 mmol/L (98-108); Differential Indicated SCAN CRITERIA MET; Glucose 113 mg/dL (70-99); Potassium 4.9 mmol/L (3.3-5.1)
[2025-05-02 17:29] LABS: Anisocytosis 1+; Differential Comment SCANNED; Macrocytosis 1+
[2025-05-03 06:55] LABS: Pro- Brain NATRIURETIC PEPTIDE 4018 pg/mL (<=1800)
== END | disposition home or self-care (01) ==
PROVIDERS: PCP Family Medicine; Visit Provider Family Medicine
DX: R60.9 Edema, unspecified (principal); I50.9 Heart failure, unspecified; K26.5 Chronic or unspecified duodenal ulcer with perforation
CPT/HCPCS: 36415; 80048; 83880; 85025

== ENCOUNTER → 2025-05-03 | Outpatient (CLI) | payer MEDICARE, SELFPAY ==
[2025-05-03 15:28] LABS: Color, Urine Straw (Yellow); Glucose, Dipstick Normal (Normal); Ketone-Dipstick Negative (Negative); Leukocyte Esterase-Dipstick Negative /ul (Negative); Nitrite-Dipstick Negative (Negative); Occult Blood-Urine Negative /ul (Negative); Protein-Dipstick Negative (Negative); Specific Gravity, Urine 1.010 (1.002-1.030); Urine Bilirubin Dipstick Negative (Negative)
== END | disposition home or self-care (01) ==
LOC: LABSPEC 14:27
PROVIDERS: PCP Family Medicine; Referring Provider Family Medicine; Visit Provider Family Medicine
DX: R41.0 Disorientation, unspecified (principal); Z87.440 Personal history of urinary (tract) infections
CPT/HCPCS: 81002; 87086